=== PATIENT | female | born 1955 | race Caucasian/White ===

== ENCOUNTER → 2020-03-30 12:13 | Outpatient (CLI) | payer MEDICARE, SELFPAY ==
[2015-07-19 15:47] VITALS: BMI 23.3
--- NOTE | 2020-03-30 12:30 | RAD_ITS ---
STUDY: X-RAY CHEST REASON FOR EXAM: Female, 64 years old. SOB TECHNIQUE: Frontal and lateral views of the chest. COMPARISON: 10-16-13 chest x-ray same day FINDINGS: The lungs are hyper aerated. The lungs are clear and expanded. There is no demonstrated pleural abnormality. Normal size heart. Normal mediastinum and nemo. Normal visualized pulmonary arteries. Normal visualized aortic arch and descending thoracic aorta. Moderate kyphosis and scoliosis. Normal visualized ribs, clavicles, and shoulders. There is no demonstrated abnormality of the visualized soft tissue structures of the upper abdomen. RAD/Chest PA and Lateral IMPRESSION: COPD. No acute disease. Electronically Signed: Michael Deleon MD at 21:58 EDT , Service support ,
== END ==
PROVIDERS: PCP Family Medicine; Referring Provider Family Medicine; Visit Provider Family Medicine
DX: J44.9 Chronic obstructive pulmonary disease, unspecified (principal)
CPT/HCPCS: 71046

== ENCOUNTER → 2021-05-07 09:04 | Outpatient (CLI) | payer MEDICARE, SELFPAY ==
--- NOTE | 2021-05-07 09:38 | RAD_ITS ---
INDICATION: NECK PAIN EXAMINATION/TECHNIQUE: X-RAY - XR Spine Cervical 4 or 5 Views COMPARISON: None. FINDINGS: Straightening of the alignment of the columns of the cervical spine is visualized with grade 1 anterolisthesis of C3 over C4 and C4 over C5. Multilevel degenerative endplate changes visualized, no evidence of compression deformity of the cervical vertebral bodies is seen. Degenerative changes visualized most prominent involving the C5 and to lesser extent C6 vertebral bodies. Decreased intervertebral disc height visualized at C5-C6 and C6-C7. Oblique images visualized demonstrate unremarkable left neuroforamina, limited narrowing of the right neural foramina due to suboptimal alignment however there is suggestion of moderate to severe narrowing of the C5-6 and C6-C7 neural foramina on the right The prevertebral posterior neck soft tissues are unremarkable. The visualized upper lung baer unremarkable. RAD/Cerv Spine 4 or 5 Views IMPRESSION: Degenerative changes of the cervical spine visualized most prominent at C5 and C6 vertebral bodies, grade 1 anterolisthesis of C3 over C4 and C4 over C5. Electronically Signed: Thang Epps MD at 12:09 EDT Tel , Service support ,
--- NOTE | 2021-05-07 09:38 | RAD_ITS ---
INDICATION: BACK PAIN EXAMINATION/TECHNIQUE: X-RAY - XR Spine Lumbar Min 4 Views COMPARISON: None. FINDINGS: Dextroscoliosis of the thoracolumbar spine visualized with the apex along the right lateral aspect of the L1-2 intervertebral disc space, rotation of the upper vertebral bodies, rotatory scoliosis. Bone demineralization extensive degenerative changes are visualized that limits evaluation Decreased intervertebral disc height visualized involving the L1 vertebral body and to a lesser extent the T12 and lower thoracic vertebral bodies which are suboptimally evaluated however this is the level of the scoliosis stenosis could represent degenerative changes. Would recommend clinical correlation for localized tenderness at this level and if clinically indicated further evaluation with an MRI. Increased density visualized in the posterior column most prominent at L5 consistent with hypertrophic changes of the right L5 facets. Surgical clips visualized in the right upper quadrant. RAD/L/S Spine Min 4 Views IMPRESSION: Extensive degenerative changes of the lumbar spine visualized with the common clinical correlation for localized tenderness and if clinically indicated further evaluation with an MRI to rule out acute compression fracture of the L1 vertebral body or of the lower thoracic vertebral bodies. Electronically Signed: Thang Epps MD at 12:13 EDT Tel , Service support ,
== END ==
PROVIDERS: PCP Family Medicine; Referring Provider Family Medicine; Visit Provider Family Medicine
DX: M54.2 Cervicalgia (principal); M54.9 Dorsalgia, unspecified
CPT/HCPCS: 72050; 72110

== ENCOUNTER → 2021-05-21 15:25 | Outpatient (CLI) | payer MEDICARE, SELFPAY ==
[2021-05-21 16:22] LABS: Potassium 4.1 mmol/L (3.5-5.1)
== END ==
PROVIDERS: PCP Family Medicine; Visit Provider Family Medicine
DX: E87.6 Hypokalemia (principal)
CPT/HCPCS: 36415; 84132

== ENCOUNTER → 2022-01-10 | Outpatient (CLI) | payer MEDICARE, SELFPAY ==
--- NOTE | 2022-01-10 10:35 | RAD_ITS ---
STUDY: X-RAY CHEST REASON FOR EXAM: Female, 66 years old. BRONCHITIS TECHNIQUE: PA and lateral. COMPARISON: 03/30/2020.. FINDINGS: LUNGS: The lungs are hyperinflated. No consolidation. No pneumothorax. MEDIASTINUM: Unremarkable. CARDIAC SILHOUETTE: Not enlarged. BONES AND SOFT TISSUES: Degenerative changes of the dorsal spine and scoliosis. Surgical clips right upper abdomen previous cholecystectomy. RAD/Chest PA and Lateral IMPRESSION: Hyperinflated lungs likely COPD. No infiltrates. Electronically Signed: Joy Kline MD at 4:06 EDT ,
== END | disposition home or self-care (01) ==
LOC: RAD 10:34
PROVIDERS: PCP Family Medicine; Referring Provider Family Medicine; Visit Provider Family Medicine
DX: J40 Bronchitis, not specified as acute or chronic (principal)
CPT/HCPCS: 71046

== ENCOUNTER 2022-01-31 09:19 | Emergency (ER) | payer MEDICARE, SELFPAY ==
[2022-01-31 09:20] VITALS: BP 116/97; PULSE 100; RESP 18; TEMP 37.4; O2SAT 96; BMI 21.2
--- NOTE | 2022-01-31 09:31 | RAD_ITS ---
STUDY: X-RAY CHEST REASON FOR EXAM: Female, 66 years old. cough, fever TECHNIQUE: Single AP portable view of the chest. COMPARISON: 01/10/2022 FINDINGS: There is hyperinflation of the lungs consistent with chronic obstructive lung disease (COPD). Focal opacity lower right lung worrisome for pneumonia or mass. There is no demonstrated pleural abnormality. Normal size heart. Normal mediastinum and nemo. Normal visualized pulmonary arteries. Normal visualized aortic arch and descending thoracic aorta. Normal visualized thoracic spine. Normal visualized ribs, clavicles, and shoulders. There is no demonstrated abnormality of the visualized soft tissue structures of the upper abdomen. RAD/Chest 1 View (Portable) IMPRESSION: Right middle lobe or right lower lobe pneumonia or mass. Follow-up chest x-ray is recommended after resolution of symptoms to exclude mass, namely bronchogenic carcinoma.. Electronically Signed: Isaac Gonsalves MD at 10:46 EDT ,
--- NOTE | 2022-01-31 09:36 | EDS_ITS ---
HPI History of Present Illness Chief Complaint: Nausea/Vomiting Informant: patient Onset/Context/Timing Onset: Days (2 days) Context: Gradual Onset Current Severity: Mild Maximum Severity: Moderate Narrative Narrative: Patient presents with 2-day history of fever and chills with headache, body aches, nausea, vomiting, diarrhea. She does have a mild cough. T-max has been 103. She believes she may have been exposed to COVID but did not take a test. She did receive the vaccines as well as booster. [facility] Medical History Depression GERD (gastroesophageal reflux disease) Home Medications esomeprazole magnesium [Nexium] 40 mg PO DAILY 08/08/13 [History Last Taken 05/12/14 08:00 40 MG] ferrous sulfate 325 mg PO BIDCM #90 tablet 10/04/13 [Rx Last Taken 05/12/14 08:00 325 MG] Potassium (Otc) [Potassium Otc] 99 mg PO DAILY 05/13/14 [History Last Taken 05/12/14 08:00 1 TAB] trazodone 50 mg PO QHS 05/13/14 [History Last Taken 05/12/14 12:00 50 MG] Venlafaxine Xr [Effexor Xr] 75 mg PO DAILY 05/14/14 [History Last Taken Unknown] docusate sodium [Colace] 100 mg PO BID PRN PRN #60 capsule 05/23/14 [Rx Last Taken Unknown] ondansetron HCl 8 mg PO Q8H PRN PRN #30 tablet 05/23/14 [Rx Last Taken Unknown] oxycodone 10 mg PO Q4H PRN PRN #30 tablet 05/23/14 [Rx Last Taken Unknown] promethazine 25 mg PO Q4H PRN PRN #10 tablet 05/23/14 [Rx Last Taken Unknown] psyllium husk (aspartame) [Metamucil] 1 packet PO DAILY #30 packet 05/23/14 [Rx Last Taken Unknown] levofloxacin 750 mg PO DAILY #4 tab 01/31/22 [Rx Last Taken Unknown] ondansetron 4 mg PO Q8H PRN #10 tab 01/31/22 [Rx Last Taken Unknown] Allergy/AdvReac Type Severity Reaction Status Date / Time Sulfa (Sulfonamide Allergy Hives Verified 01/31/22 09:22 Antibiotics) Social History Smoking Status: Never smoker ROS ROS ED Constitutional Constitutional ED: Reports chills and fever(s) Eyes Eyes: Denies blurry vision or change in vision ENT ENT ED: Denies sore throat Cardiovascular Cardiovascular: Denies chest pain Respiratory/Chest Respiratory/Chest: Reports cough; Denies dyspnea Gastrointestinal Gastrointestinal: Reports diarrhea, nausea and vomiting; Denies abdominal pain Genitourinary Genitourinary ED: Denies dysuria Musculoskeletal Musculoskeletal: Denies back pain Integumentary Denies rash Neurologic Neurologic: Reports headache(s) and weakness Allergic/Immunologic Allergic/Immunologic ED: Denies urticaria EXAM Physical Exam Const Vital Signs: 01/31/22 09:20 01/31/22 09:50 Temperature 99.4 F H 99.4 F H Temperature Source Temporal Temporal Pulse Rate 100 100 Respiratory Rate 18 18 Blood Pressure 116/97 H 116/97 H Blood Pressure Mean 103 103 Pulse Ox 96 96 Oxygen Delivery Method Room Air Room Air Positive well nourished and well developed General Appearance ED: well developed HEENT Reports moist mucous membranes Eyes PERRL and EOMs intact bilaterally Neck supple Chest Wall inspection of chest normal and palpation of chest normal Resp normal respiratory effort and clear to auscultation bilaterally Cardio regular rate and regular rhythm GI non-tender Auscultation: hypoactive bowel sounds Palpation: soft Extremity normal to inspection Neuro oriented x3 Sensorium / Orientation: alert Psych mental status grossly normal Skin no rashes or lesions noted MDM MDM MDM Narrative Medical decision making narrative: Oral temperature at the time of my exam is 98.3. Lab work, chest x-ray, EKG obtained. Swab for COVID and influenza order ed. Lab Data Attestation: I reviewed the patient's lab results. Labs: Laboratory Results - last 24 hr 01/31/22 01/31/22 09:45 09:45 WBC 19.4 H RBC 4.26 Hgb 12.5 Hct 37.5 MCV 88.0 MCH 29.3 MCHC 33.3 RDW Std Deviation 45.4 H RDW Coeff of Tr 14.1 Plt Count 188 MPV 10.4 Immature Gran % (Auto) 1.100 H Neut % (Auto) 88.5 H Lymph % (Auto) 6.6 L [place] % (Auto) 3.5 Eos % (Auto) 0.0 Baso % (Auto) 0.3 Absolute Neuts (auto) 17.2 H Absolute Lymphs (auto) 1.28 Nucleated RBC % 0 Sodium 135 L Potassium 3.2 L Chloride 100 Carbon Dioxide 27.0 Anion Gap 8 BUN 20 H Creatinine 0.91 Estim Creat Clear Calc 49.62 Est GFR (MDRD) Af Amer 79 Est GFR (MDRD) Non-Af 65 BUN/Creatinine Ratio 22.0 H Glucose 153 H Calcium 9.4 Rapid COVID: Negative Influenza: Negative Radiography Chest X-Ray - ED: 1 View, Read by ED Physician and Right Infiltrate Diagnostic Testing: Clinical Impression(s) from Imaging Studies Chest X-Ray 01/31/22 09:31 IMPRESSION: Right middle lobe or right lower lobe pneumonia or mass. Follow-up chest x-ray is recommended after resolution of symptoms to exclude mass, namely bronchogenic carcinoma.. Electronically Signed: Isaac Gonsalves MD at 10:46 EDT , EKG Initial EKG: Attestation: I personally reviewed and interpreted this EKG as follows: Interpretation: Sinus Rhythm (Sinus at 96 with no acute ischemia. QTC is 457.) Treatment and Re-Evaluation Narrative: Repeat evaluation patient resting comfortably. After Zofran her nausea is improved and she is tolerating p.o. fluids. Lab work reviewed with her. White count elevated at 19.4 with left shift. Chemistry studies significant for slightly low potassium at 3.2. Chest x-ray does reveal a dense right lower lobe infiltrate. Patient be treated with a course of Levaquin, first dose given here. Prescription for Levaquin and Zofran sent to the pharmacy. Return instructions provided. Discharge Plan Triage Chief Complaint: Nausea/Vomiting ED Provider: Marycruz Jones Dx/Rx/DC Orders Clinical Impression: Pneumonia Instructions: ED Pneumonia (Adult) Prescriptions: New levofloxacin 750 mg tablet 750 mg PO DAILY Qty: 4 RF: 0 ondansetron 4 mg tablet,disintegrating 4 mg PO Q8H PRN (Reason: nausea and vomiting) Qty: 10 RF: 0 No Action esomeprazole magnesium [Nexium] 20 MG capsule 40 mg PO DAILY RF: 0 ferrous sulfate 325 MG tablet 325 mg PO BIDCM Qty: 90 RF: 0 trazodone 50 MG tablet 50 mg PO QHS RF: 0 Potassium (Otc) [Potassium Otc] 99 MG tablet 99 mg PO DAILY RF: 0 Venlafaxine Xr [Effexor Xr] 75 MG capsule 75 mg PO DAILY RF: 0 ondansetron HCl 8 MG tablet 8 mg PO Q8H PRN PRN (Reason: nausea, emesis) Qty: 30 RF: 0 oxycodone 5 MG tablet 10 mg PO Q4H PRN PRN (Reason: Moderate Pain (pain scale 4-5)) Qty: 30 RF: 0 docusate sodium [DOK] 100 MG capsule 100 mg PO BID PRN PRN (Reason: Constipation) Qty: 60 RF: 0 psyllium husk (aspartame) [Metamucil Fiber Singles] 1 PACKET powder in packet 1 packet PO DAILY Qty: 30 RF: 0 promethazine 25 MG tablet 25 mg PO Q4H PRN PRN (Reason: N/V if zofran not working) Qty: 10 RF: 0 Primary Care Provider: Danish Davila Referrals: Danish Davila DO [Primary Care Provider] - 1 Week Activity Restrictions/Additional Instructions: Please follow-up with your primary care physician in 1 to 2 weeks for repeat imaging to ensure resolution of your pneumonia. Disposition Disposition: Home, Self Care
[2022-01-31 09:50] VITALS: BP 116/97; PULSE 100; RESP 18; TEMP 37.4; O2SAT 96
[2022-01-31 09:54] LABS: Absolute Lymphocyte Count 1.28 X10^3/uL (0.83-4.51); Absolute Neutrophil Count 17.2 X10^3/uL (2.0-7.7); Basophil# 0.05 X10^3/uL; Basophil% 0.3 % (0-1); Hematocrit 37.5 % (37-47); Hemoglobin 12.5 g/dL (12.0-15.0); Lymphocyte # 1.28 X10^3/ul (0.83-4.51); Lymphocyte % 6.6 % (19-41); Mean Corp Hgb Conc 33.3 g/dL (32-36); Mean Corpuscular Hgb 29.3 pg (27.0-32.0); Mean Platelet Vol. 10.4 fl (6.2-12.0); Monocyte# 0.69 X10^3/uL; Monocyte% 3.5 % (0-10); NRBC Flagged by Analyzer 0 % (0-5); Neutrophil # 17.21 X10^3/uL (2.7-7.7); Neutrophil % 88.5 % (47-70); POSITIVE MORPHOLOGY YES; Platelet Count 188 K/mm3 (150-450); RBC Distribution Width CV 14.1 % (11.6-14.6); RBC Distribution Width SD 45.4 fl (35.1-43.9); Red Blood Count 4.26 M/mm3 (4.2-5.4); White Blood Count 19.4 K/mm3 (4.4-11.0)
[2022-01-31] MEDS: Ondansetron 4 MG/2 ML Vial IV (09:55)
[2022-01-31 09:57] LABS: Differential Indicated SCAN CRITERIA MET
--- NOTE | 2022-01-31 10:07 | EKG12_ITS ---
Test Reason : Blood Pressure : / mmHG Vent. Rate : 096 BPM Atrial Rate : 096 BPM P-R Int : 174 ms QRS Dur : 080 ms QT Int : 362 ms P-R-T Axes : 083 046 045 degrees QTc Int : 457 ms Normal sinus rhythm Nonspecific ST abnormality Abnormal ECG Confirmed by MURTAZA CHISHOLM, NIKI ([id number]), food editor OSWALD ROSA ([id number]) on 02/01/2022 1:30:40 PM Referred By: JOEL Confirmed By:NIKI HAUSER MD
[2022-01-31 10:08] LABS: Anion Gap 8 (5-15); BUN 20 mg/dL (7-18); Calcium,Total 9.4 mg/dL (8.5-10.1); Chloride 100 mmol/L (98-107); Creatinine, Serum 0.91 mg/dL (0.55-1.02); EST Glomerular Filtration Rate 65 mL/min (>60); Est Glom Filt Rate - Afr Amer 79 mL/min (>60); Estimated Creatinine Clearance 49.62 ml/min; Glucose 153 mg/dL (74-106); Potassium 3.2 mmol/L (3.5-5.1); Sodium Level 135 mmol/L (136-145)
[2022-01-31] MEDS: levoFLOXacin 750 MG Tablet PO (10:54)
== END 2022-01-31 11:29 | disposition home or self-care (01) ==
PROVIDERS: Emergency Provider Emergency Medicine; PCP Family Medicine; Visit Provider Emergency Medicine
DX: J18.9 Pneumonia, unspecified organism (principal); K21.9 Gastro-esophageal reflux disease without esophagitis; F32.A Depression, unspecified; Z20.822 Contact with and (suspected) exposure to COVID-19; Z79.899 Other long term (current) drug therapy
CPT/HCPCS: 71045; 80048; 85025; 87428; 93005; 96361; 96374; 99283; J7030; J2405

== ENCOUNTER → 2022-04-22 | Outpatient (CLI) | payer MEDICARE, SELFPAY ==
--- NOTE | 2022-04-22 09:46 | RAD_ITS ---
STUDY: X-RAY - RIGHT SHOULDER REASON FOR EXAM: Female, 66 years old. Six-week history of bilateral shoulder pain. TECHNIQUE: 4 view(s) of the shoulder. COMPARISON: None. FINDINGS: Normal glenohumeral articulation. There is degenerative arthrosis of the acromioclavicular joint without inferior osseous spur formation. Normal acromion. Normal humeral head and visualized proximal humerus. The soft tissue structures are unremarkable. Normal visualized pulmonary apex. RAD/Shoulder min 2 Views IMPRESSION: Arthrosis of the right acromioclavicular joint. Electronically Signed: Aravind Serrano MD at 11:04 EDT ,
--- NOTE | 2022-04-22 09:47 | RAD_ITS ---
STUDY: X-RAY - LEFT SHOULDER REASON FOR EXAM: Female, 66 years old. Six-week history of bilateral shoulder pain. TECHNIQUE: 4 view(s) of the shoulder. COMPARISON: None. FINDINGS: Normal glenohumeral articulation. Normal acromioclavicular joint. Normal acromion. Normal humeral head and visualized proximal humerus. The soft tissue structures are unremarkable. Normal visualized pulmonary apex. RAD/Shoulder min 2 Views IMPRESSION: Normal x-ray examination of the shoulder. Electronically Signed: Aravind Serrano MD at 11:04 EDT ,
== END | disposition home or self-care (01) ==
LOC: RAD 09:42
PROVIDERS: PCP Family Medicine; Referring Provider Family Medicine; Visit Provider Family Medicine
DX: M19.011 Primary osteoarthritis, right shoulder (principal); G89.29 Other chronic pain
CPT/HCPCS: 73030

== ENCOUNTER → 2022-10-24 | Outpatient (CLI) | payer MEDICARE, SELFPAY ==
--- NOTE | 2022-10-24 11:45 | RAD_ITS ---
STUDY: X-RAY CHEST REASON FOR EXAM: Female, 67 years old. Cough and shortness of breath TECHNIQUE: PA and lateral views of the chest. COMPARISON: 01/31/2022 FINDINGS: Lungs are mildly hyperexpanded, without a superimposed acute pulmonary process, previously noted right lower lobe infiltrate has cleared. Normal size heart. Normal mediastinum and nemo. Normal visualized pulmonary arteries. Normal visualized aortic arch and descending thoracic aorta. There are diffuse degenerative changes of the visualized thoracic spine. Normal visualized ribs, clavicles, and shoulders. There is no demonstrated abnormality of the visualized soft tissue structures of the upper abdomen. RAD/Chest PA and Lateral IMPRESSION: No acute pulmonary process Electronically Signed: Jian Cuenca MD at 15:01 EST ,
== END | disposition home or self-care (01) ==
LOC: RAD 11:26
PROVIDERS: PCP Family Medicine; Visit Provider Family Medicine
DX: R05.9 Cough, unspecified (principal)
CPT/HCPCS: 71046

== ENCOUNTER 2024-04-29 07:34 | Day surgery (SDC) | payer MEDICARE, SELFPAY ==
[2024-04-29] VITALS (8 sets, daily range): BP systolic 97–142; BP diastolic 43–72; PULSE 76–96; RESP 16–20; TEMP 36.2–36.8; O2SAT 90–99; BMI 20.4
--- NOTE | 2024-04-29 07:56 | PCM.HP.STD ---
[facility] - General General Date of Admission: 04/29/24 Date of Service: 04/29/24 Chief Complaint: Screening colonoscopy HPI Narrative JACQUELINE GÓMEZ, is a 68 F who presents today for screening colonoscopy. She had a colonoscopy back in 2013 that was normal. She not have any abdominal pain. She does not have any cramping, chest pain or shortness of breath. She carries a past medical history of mild depression, hypercholesterolemia, possible COPD, osteoporosis. Overall she is in fairly good health. [facility] Medical History (Updated 04/26/24 @ 14:43 by Patricia Rivas) Wears dentures Wears glasses Post-menopausal Depression Arthritis Anemia Gastric reflux Former smoker Hoarseness History of stress test Osteopenia COPD (chronic obstructive pulmonary disease) Family hx of colon cancer Nausea & vomiting Diarrhea Pathologic pelvic fracture Chronic anemia GERD (gastroesophageal reflux disease) Depression Home Medications ?Medication ?Instructions ?Recorded ?Last Taken ?Type esomeprazole magnesium 20 mg 40 mg PO DAILY 08/08/13 05/12/14 08:00 History capsule,delayed release (Nexium) 40 MG albuterol sulfate 90 mcg/actuation 2 puff inhalation Q4H PRN 03/20/24 Unknown History aerosol inhaler (Proventil HFA) shortness of breath or wheezing alendronate 70 mg tablet 70 mg PO QWEEK 03/20/24 Unknown History simvastatin 80 mg tablet 40 mg PO DAILY 03/20/24 Unknown History trazodone 150 mg tablet,extended 150 mg PO HS PRN sleep 03/20/24 Unknown History release 24 hr venlafaxine 150 mg 150 mg PO DAILY 03/20/24 Unknown History capsule,extended release 24 hr Allergy/AdvReac Type Severity Reaction Status Date / Time Sulfa (Sulfonamide Allergy Hives Verified 04/29/24 07:57 Antibiotics) Family History (Updated 03/20/24 @ 09:09 by Pooja Padilla) Mother Pancreatic cancer Father COPD (chronic obstructive pulmonary disease) Brother Colon cancer Heart disease Sister Stomach cancer Brother Leukemia Surgical History (Updated 03/20/24 @ 09:06 by Pooja Padilla) History of tonsillectomy and adenoidectomy Hx of cholecystectomy Hx of appendectomy Hx of colonoscopy Social History (Updated 03/20/24 @ 09:13 by Pooja Padilla) household members: none current occupational status: employed current occupation: [employer] Smoking Status: Former smoker Tobacco: How many years used: 4 alcohol intake: former substance use type: does not use ROS Review of Systems ROS Unobtainable: other Constitutional Constitutional: Denies fatigue, fever(s), poor appetite, weight gain or weight loss ENT HEENT: Denies mouth lesions Cardiovascular Cardiovascular: Denies abdominal bloating, abdominal edema or abdominal pain Respiratory/Chest Respiratory/Chest: Denies change in mental status, change in phlegm color, chest congestion or chest tightness Gastrointestinal Gastrointestinal: Denies belching, bloating, change in bowel habits, change in stool character, chewing difficulty, coffee ground emesis, constipation, cramping, diarrhea, dyspepsia, dysphagia, early satiety, excessive flatus, fecal incontinence, heartburn, hematemesis, hematochezia, hemorrhoids, loose stools, melena, nausea, odynophagia, rectal bleeding, tenesmus, vomiting or weight changes Genitourinary Genitourinary: Denies abdominal discomfort, burning urination or itching Musculoskeletal Musculoskeletal: Reports as per HPI; Denies muscle weakness or myalgias Integumentary Integumentary: Denies jaundice Neurologic Neurologic: Denies lack of coordination or weakness Psychiatric Psychiatric: Denies confusion, depression, memory loss, mood swings, paranoia or suicidal ideation Endocrine Endocrinology: Denies systems reviewed and no addt'l complaints, except as documented Hematologic/Lymphatic Hematologic/Lymphatic: Denies anemia, easy bleeding, easy bruising or lymphadenopathy Allergic/Immunologic Allergic/Immunologic: Denies systems reviewed and no addt'l complaints, except as documented Assessment & Plan Assessment/Plan (1) Encounter for screening for malignant neoplasm of colon: PLAN: She was explained alternatives, risk, benefits including not withstanding bleeding, infection, sepsis, perforation, need for emergent urgent . She will have an ASA of 3.
[2024-04-29] MEDS: Lactated Ringers 1,000 ML 15 ML IV (07:58)
--- NOTE | 2024-04-29 08:23 | PRE.ANES_ITS ---
ASA Classification* ASA Classification ASA Classification: 2 Assessment & Plan Anesthesia* Anesthesia Assessment Anesthesia Assessment: Discussed sedation and/or anesthesia options, risks, benefits, and alternatives with patient/parents/legal guardian/POA. Questions invited. The patient/parents/legal guardian/POA seems to understand and agrees to proceed with anesthesia plan. Reviewed the physical assessment, medical history, allergy history and patient home medications list prior to surgery/procedure/anesthetic and documented any changes. Performed airway and anesthesia risk assessments. Anesthesia Type Anesthesia Type: MAC History Source History Obtained from:: Patient and Chart Anesthesia Focused Assessment* Temperature: 97.4 F Pulse Rate: 90 Blood Pressure: 114/43 Respiratory Rate: 18 Pulse Ox: 95 Oxygen Delivery Method: Room Air Airway Assessment Mouth opens: >3 cm Mallampati Score: I Teeth Condition: Dentures and Full Neck Range of motion (ROM): Full ROM Pertinent Findings EKG Pertinent Findings:: January 31, 2022. Normal sinus rhythm. Nonspecific ST abnormality. Focused Labs Anesthesia Preop lab: CBC WBC 19.4 K/mm3 (4.4-11.0) H 01/31/22 09:45 RBC 4.26 M/mm3 (4.2-5.4) 01/31/22 09:45 Hgb 12.5 g/dL (12.0-15.0) 01/31/22 09:45 Hct 37.5 % (37-47) 01/31/22 09:45 Plt Count 188 K/mm3 (150-450) 01/31/22 09:45 CHEMISTRY Potassium 3.2 mmol/L (3.5-5.1) L 01/31/22 09:45 Sodium 135 mmol/L (136-145) L 01/31/22 09:45 Magnesium 1.7 mg/dL (1.8-2.4) L 05/23/14 05:58 Phosphorus 1.4 mg/dL (2.5-4.9) L 11/26/12 07:42 BUN 20 mg/dL (7-18) H 01/31/22 09:45 Creatinine 0.91 mg/dL (0.55-1.02) 01/31/22 09:45 Glucose 153 mg/dL (74-106) H 01/31/22 09:45 POC Glucose 245 mg/dL (70-110) H 10/16/13 12:24 TSH 3.43 uIU/mL (0.358-3.74) 10/16/13 19:28 COAG PT 13.7 SECONDS (11.9-14.4) 09/30/13 20:09 Pre-Assessment Diagnosis/Proposed Procedure Planned Operative Procedure(s): Colonoscopy - Open Access Anesthesia History 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 When Was Last Pacemaker Check QUESTION #4 FULL TEXT: You/Your Family Experience fever (hyperthermia) with Anesthesia Last Oral Intake Last Oral intake: Last Oral Intake NPO since 00:00 04/29/24 07:59 Meds taken in AM with sips of No 04/29/24 07:59 water? Meds patient instructed to take am of surgery Any additional information?: Yes NPO since: 02:30 (Patient finished prep at 2:30 AM.) PONV PONV - tool and equipment rental clerk: PONV - tool and equipment rental clerk Female Yes 04/26/24 14:43 HX of Motion Sickness No 04/26/24 14:43 HX of N/V After Surgery No 04/26/24 14:43 Non-Smoker Yes 04/26/24 14:43 Duration of Surgery greater No 04/26/24 14:43 than 60 minutes Number of Risk Factors 2 04/26/24 14:43 PONV Score Moderate Risk 04/26/24 14:43 Height & Weight Height & Weight: Anesthesia: Height & Weight Height 5 ft 4 in 04/29/24 07:59 Weight: 53.977 kg 04/29/24 07:59 Body Mass Index (BMI) 20.4 04/29/24 07:59 Respiratory Assessment Respiratory Assessment - tool and equipment rental clerk: Respiratory Tract Infection Hx - tool and equipment rental clerk Hx Respiratory Tract Infection No 04/26/24 14:43 STOP Sleep Apnea STOP Sleep Apnea - tool and equipment rental clerk: STOP Sleep Apnea - tool and equipment rental clerk Hx Hypertension No 04/26/24 14:43 Hx Sleep Apnea No 04/26/24 14:43 CPAP No 04/26/24 14:43 BIPAP No 04/26/24 14:43 Do you snore loudly (louder No 04/26/24 14:43 than talking or can be heard Do you often feel tired/ No 04/26/24 14:43 fatigued/ sleepy during daytime? Has anyone observed you stop No 04/26/24 14:43 breathing during sleep? STOP Results Negative 04/26/24 14:43 QUESTION #5 FULL TEXT : Do you snore loudly (louder than talking or can be heard through closed doors)? 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 - tool and equipment rental clerk: Tobacco Use History - tool and equipment rental clerk Tobacco Use Non-smoker 05/07/21 09:04 Smoking Status Former smoker 04/26/24 14:43 Hx Tobacco Use Yes 04/26/24 14:43 Years Smoking Packs Smoked per Day Smoking Cessation Date was Yes - quit smoking within 15 04/26/24 14:43 within the last 15 years years Hx Smoking Cessation Date Hx Smoking Cessation No 04/26/24 14:43 Counseling Any additional information?: Yes Smoking Status: Former smoker (Patient quit smoking in January 2024. 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 Specify any problems Hx of Preganancy in last 3 No 04/26/24 14:43 Months Nurse Filling Out Transfusion VCHRISTIN 04/26/24 14:43 & Questions: Date: 04/26/24 04/26/24 14:43 Time: 14:44 04/26/24 14:43 Patient unable to answer at this time (ie. confused, unrespo /Reproduction History /Reproductive History - tool and equipment rental clerk: /Reproductive Hx- tool and equipment rental clerk Hx Now No 04/26/24 14:43 Gestational Age (in weeks): EDC: Hx Hx Para Hx Section SAB No 04/26/24 14:43 Active Medications Active Medications: Current Medications Generic Name Dose Route Start Last Admin Trade Name Freq PRN Reason Stop Dose Admin Lactated Ringer's 1,000 mls @ 15 mls/hr 04/29/24 07:45 04/29/24 07:58 IV 15 mls/hr .Q48H STEVE Administration PFSH Medical History (Updated 04/26/24 @ 14:43 by Patricia Rivas) Wears dentures Wears glasses Post-menopausal Depression Arthritis Anemia Gastric reflux Former smoker Hoarseness History of stress test Osteopenia COPD (chronic obstructive pulmonary disease) Family hx of colon cancer Nausea & vomiting Diarrhea Pathologic pelvic fracture Chronic anemia GERD (gastroesophageal reflux disease) Depression Home Medications ?Medication ?Instructions ?Recorded ?Last Taken ?Type esomeprazole magnesium 20 mg 40 mg PO DAILY 08/08/13 04/28/24 History capsule,delayed release (Nexium) albuterol sulfate 90 mcg/actuation 2 puff inhalation Q4H PRN 03/20/24 Unknown History aerosol inhaler (Proventil HFA) shortness of breath or wheezing alendronate 70 mg tablet 70 mg PO QWEEK 03/20/24 04/21/24 History simvastatin 80 mg tablet 40 mg PO DAILY 03/20/24 04/28/24 History trazodone 150 mg tablet,extended 150 mg PO HS PRN sleep 03/20/24 04/28/24 History release 24 hr venlafaxine 150 mg 150 mg PO DAILY 03/20/24 04/28/24 History capsule,extended release 24 hr Allergy/AdvReac Type Severity Reaction Status Date / Time Sulfa (Sulfonamide Allergy Hives Verified 04/29/24 07:57 Antibiotics) Family History (Updated 03/20/24 @ 09:09 by Pooja Padilla) Mother Pancreatic cancer Father COPD (chronic obstructive pulmonary disease) Brother Colon cancer Heart disease Sister Stomach cancer Brother Leukemia Surgical History (Updated 03/20/24 @ 09:06 by Pooja Padilla) History of tonsillectomy and adenoidectomy Hx of cholecystectomy Hx of appendectomy Hx of colonoscopy Social History (Updated 03/20/24 @ 09:13 by Pooja Padilla) household members: none current occupational status: employed current occupation: [employer] Smoking Status: Former smoker (Patient quit smoking in January 2024. Still has an occasional cough.) Tobacco: How many years used: 4 alcohol intake: former substance use type: does not use Review of Systems (Anesthesia) ROS Narrative System reviewed and no additional complaints, except as documented.
--- NOTE | 2024-04-29 09:35 | OP.CCLET_ITS ---
04/29/2024 Danish Davila Re : Colonoscopy procedure for Ashley Dumont Dear Giovanni This procedure was performed on Monday, April 29, 2024. My impressions and recommendations are as follows: Impressions : - Diverticulosis in the recto-sigmoid colon, in the sigmoid colon, in the descending colon and at the splenic flexure. - No specimens collected. Recommendations : - Discharge patient to home. - Resume previous diet. - Continue present medications. - Repeat colonoscopy in 10 years for screening purposes. My findings are described in the full procedure note, which is enclosed. If I can be of further assistance, please feel free to contact me at . Sincerely, Slim Weiss DO 04/29/2024 9:34:45 AM This report has been signed electronically.
--- NOTE | 2024-04-29 09:35 | OP.COLON_ITS ---
Patient Name: Ashley Dumont Procedure Date: 04/29/2024 8:54 AM Date of : 1955 Age: 68 Procedure: Colonoscopy Indications: Screening for colorectal malignant neoplasm Providers: Slim Weiss DO Medicines: Monitored Anesthesia Care Patient Profile: This is a 68 year old female. Refer to note in patient chart for documentation of history and physical. Last Colonoscopy: 10 years ago. Complications: No immediate complications. Procedure: Pre-Anesthesia Assessment: - Prior to the procedure, a History and Physical was performed, and patient medications and allergies were reviewed. The patient is competent. The risks and benefits of the procedure and the sedation options and risks were discussed with the patient. All questions were answered and informed consent was obtained. Patient identification and proposed procedure were verified by the physician in the pre-procedure area. Mental Status Examination: alert and oriented. Airway Examination: normal oropharyngeal airway and neck mobility. Respiratory Examination: clear to auscultation. CV Examination: normal. Prophylactic Antibiotics: The patient does not require prophylactic antibiotics. Prior Anticoagulants: The patient has taken no anticoagulant or antiplatelet agents. ASA Grade Assessment: II - A patient with mild systemic disease. After reviewing the risks and benefits, the patient was deemed in satisfactory condition to undergo the procedure. The anesthesia plan was to use monitored anesthesia care (MAC). Immediately prior to administration of medications, the patient was re-assessed for adequacy to receive sedatives. The heart rate, respiratory rate, oxygen saturations, blood pressure, adequacy of pulmonary ventilation, and response to care were monitored throughout the procedure. The physical status of the patient was re-assessed after the procedure. After I obtained informed consent, the scope was passed under direct vision. Throughout the procedure, the patient's blood pressure, pulse, and oxygen saturations were monitored continuously. The Colonoscope was introduced through the anus and advanced to the cecum, identified by appendiceal orifice and ileocecal valve. The colonoscopy was performed without difficulty. The patient tolerated the procedure well. The quality of the bowel preparation was adequate. Scope In: 9:12:43 AM Scope Withdrawal Time 0 hours 9 minutes 39 seconds Scope Out: 9:30:34 AM Total Procedure Duration Time 0 hours 17 minutes 51 seconds Findings: The perianal and digital rectal examinations were normal. Multiple small and large-mouthed diverticula were found in the recto-sigmoid colon, sigmoid colon, descending colon and splenic flexure. No other significant abnormalities were identified in a careful examination of the remainder of the colon. Impression: - Diverticulosis in the recto-sigmoid colon, in the sigmoid colon, in the descending colon and at the splenic flexure. - No specimens collected. Recommendation: - Discharge patient to home. - Resume previous diet. - Continue present medications. - Repeat colonoscopy in 10 years for screening purposes. Procedure Code(s): --- Professional --- G0121, Colorectal cancer screening; colonoscopy on individual not meeting criteria for high risk CPT copyright 2021 [employer]. All rights reserved. The codes documented in this report are preliminary and upon collar band creaser review may be revised to meet current compliance requirements. Slim Weiss DO 04/29/2024 9:34:45 AM This report has been signed electronically. Number of Addenda: 0 Note Initiated On: 04/29/2024 8:54 AM
--- NOTE | 2024-04-29 13:41 | PCM.POSTANE2 ---
Anesthesia Postop Eval I Sum Anesthesia Postop Eval I Summary Anesthesia Postop Eval I Summary: Anesthesia Postop Eval I: Assessment Summary Airway patent Spontaneous unlabored respirations Mental status nausea Vomiting Anesthesia Postop Eval I: Fluid Summary Crystalloid volume administer (ml) Colloids volume administered ( ml) Blood Product volume administered (ml) Total IV fluid infused Anesthesia Postop Eval I: Summary Notes Anesthesia Complication Anesthesia Complication Comment: Post-operative progress note Anesthesia: Postop Eval II Evaluation Mental status: Awake and Calm Pain Level: 0 nausea: No Vomiting: No Complications Anesthesia Complication: No
--- NOTE | 2024-04-29 14:03 | PCM.POST.ANE ---
Anesthesia: Postop Eval I Current Vital Signs Temperature: 97.2 F Pulse Rate: 96 Blood Pressure: 142/72 Respiratory Rate: 20 Pulse Ox: 99 Oxygen Delivery Method: Room Air Assessment Airway patent: Yes Spontaneous unlabored respirations: Yes Mental status: Awake and Calm nausea: No Vomiting: No Anesthesia Complication: No Fluid Hydration Crystalloid volume administer (ml): 1,000 Total IV fluid infused: 1,000 Progress Note Anesthesia document: Postop Eval 1 completed: Yes
== END 2024-04-29 10:25 | disposition home or self-care (01) ==
LOC: EN 07:37 → AC 07:38
PROVIDERS: PCP Family Medicine; Referring Provider Family Medicine; Visit Provider Internal Medicine Gastroenterology
PROC: 0DJD8ZZ Inspection of Lower Intestinal Tract, Via Natural or Artificial Opening Endoscopic (ICD-10-PCS; CPT 45378; principal; 2024-04-29 09:10)
DX: Z12.11 Encounter for screening for malignant neoplasm of colon (principal); K57.30 Diverticulosis of large intestine without perforation or abscess without bleeding; K21.9 Gastro-esophageal reflux disease without esophagitis; E78.00 Pure hypercholesterolemia, unspecified; Z79.899 Other long term (current) drug therapy; Z87.891 Personal history of nicotine dependence; Z80.0 Family history of malignant neoplasm of digestive organs
CPT/HCPCS: G0105; J7120; J2405

== ENCOUNTER 2025-02-15 08:29 | Inpatient (IN) | payer MEDICARE, SELFPAY ==
[2025-02-15] VITALS (11 sets, daily range): BP systolic 132–152; BP diastolic 53–74; PULSE 75–87; RESP 16–24; TEMP 36.5–36.9; O2SAT 85–94; BMI 19.5; BMI 19.7
--- NOTE | 2025-02-15 08:59 | EDS_ITS ---
HPI History of Present Illness Chief Complaint: Shortness of Breath Narrative Narrative: 69-year-old female past medical history of COPD, does not wear oxygen, presents via EMS with increased shortness of breath for the last 4 to 5 days. She states it is hard for her to breathe. Her primary care provider called her in a prescription for prednisone a few days ago which she started. This morning she awoke feeling feverish with reported temperature as high as 101 degrees. She went to work today and she states her boss called EMS because of her difficulty breathing. She has a rare cough that is nonproductive. No leg swelling. She uses her albuterol in the morning and sometimes during the day. Additionally, sometimes she smokes as well. [facility] Medical History Wears dentures Wears glasses Post-menopausal Depression Arthritis Anemia Gastric reflux Former smoker Hoarseness History of stress test Osteopenia COPD (chronic obstructive pulmonary disease) Family hx of colon cancer Nausea & vomiting Diarrhea Pathologic pelvic fracture Chronic anemia GERD (gastroesophageal reflux disease) Depression Home Medications ?Medication ?Instructions ?Recorded ?Last Taken ?Type esomeprazole magnesium 20 mg 40 mg PO DAILY 08/08/13 0 02/15/25 History capsule,delayed release (Nexium) simvastatin 80 mg tablet 40 mg PO QHS 03/20/24 History venlafaxine 150 mg 150 mg PO DAILY 03/20/24 History capsule,extended release 24 hr albuterol sulfate 90 mcg/actuation 2 inh inhalation Q4 H PRN shortness 02/15/25 Unknown History breath activated powder inhaler of breath or wheezing trazodone 150 mg tablet 150 mg PO QHS 02/15/25 Unkno wn History Allergy/AdvReac Type Severity Reaction Status Date / Time Sulfa (Sulfonamide Allergy Hives Verified 02/15/25 08:34 Antibiotics) Family History Mother Pancreatic cancer Father COPD (chronic obstructive pulmonary disease) Brother Colon cancer Heart disease Sister Stomach cancer Brother Leukemia Surgical History History of tonsillectomy and adenoidectomy Hx of cholecystectomy Hx of appendectomy Hx of colonoscopy Social History household members: none current occupational status: employed current occupation: [employer] Smoking Status: Current every day smoker tobacco type: cigarettes Tobacco: How many years used: 4 alcohol intake: former substance use type: does not use ROS ROS ED ROS Narrative Review of systems positive for reported fever. Shortness of breath for the last 4 to 5 days. Increased difficulty breathing. Occasional cough. No leg swelling. No chest pain, no nausea or vomiting. EXAM Physical Exam Narrative Exam Narrative: Afebrile. Vital signs noted. Nontoxic-appearing. Cardiovascular examination reveals a regular rate and rhythm. Respiratory examination shows no distress. She has decreased breath sounds at the bilateral bases with occasional expiratory wheezing. Abdomen is soft and nontender with out guarding or rebound. Positive bowel sounds. Neurological examination nonfocal non lateralizing. No pedal edema. Const Vital Signs: 02/15/25 08:30 02/15/25 08:36 02/15/25 09:12 Temperature 98.4 F Temperature Source Oral Pulse Rate 80 Respiratory Rate 24 H Respiratory Pattern Tachypnea Blood Pressure 143/74 H Blood Pressure Mean 97 Pulse Ox 91 90 Oxygen Delivery Method Room Air Room Air Room Air Oxygen Flow Rate (L/min) 02/15/25 09:12 02/15/25 09:36 02/15/25 09:36 Temperature Temperature Source Pulse Rate 75 80 Respiratory Rate 16 18 Respiratory Pattern Blood Pressure Blood Pressure Mean Pulse Ox 85 Oxygen Delivery Method Room Air Oxygen Flow Rate (L/min) 02/15/25 10:30 02/15/25 10:47 Temperature 98 F Temperature Source Pulse Rate 86 87 Respiratory Rate 19 H 19 H Respiratory Pattern Blood Pressure 132/69 H 132/68 H Blood Pressure Mean 90 89 Pulse Ox 91 91 Oxygen Delivery Method Nasal Cannula Oxygen Flow Rate (L/min) 2 MDM MDM MDM Narrative Medical decision making narrative: Differential diagnosis includes but not limited to COPD exacerbation versus pneumonia versus pneumothorax. History and physical does not support pneumothorax and she has equal breath sounds. Pulse ox 91% on room air but does dip to 89 even at rest. Comprehensive workup was pursued. EKG was obtained and interpreted by myself independently as normal sinus rhythm at 84 bpm without ectopy or acute ST changes. No STEMI. Chest x-ray interpreted by myself independently shows no Incivo pneumonia or pneumothorax. I reviewed the radiology report which confirms my independent interpretation. According to respiratory therapy, she was still wheezy after DuoNeb aerosolized treatment so she was given albuterol as well as Solu-Medrol 125 mg intravenously. She was hypoxic on room air and 85%. Once again she does not wear oxygen at home. I reviewed her laboratory work and she has normal white count of 9.4 with hemoglobin 13.6, hematocrit 41.5, platelet count 263. Potassium slightly low at 3.2 which can be replaced orally. BUN of 17 and creatinine 0.75 with glucose 136 but normal anion gap of 13. At this point in time, I will discuss patient with the hospitalist for admission given her hypoxia as I feel this is a COPD exacerbation as she continues to intermittently smoke. Disposition is admit in stable condition. History & Record Review Discussion w/independent historian: Patient Additional record(s) reviewed:: Prior ED visit (Essentially noncontributory to current chief complaint) Lab Data Attestation: I reviewed the patient's lab results. Labs: Laboratory Results - last 24 hr 02/15/25 09:19 WBC 9.4 RBC 4.55 Hgb 13.6 Hct 41.5 MCV 91.2 MCH 29.9 MCHC 32.8 RDW Std Deviation 44.6 H RDW Coeff of Tr 13.2 Plt Count 263 MPV 9.7 Immature Gran % (Auto) 0.200 Neut % (Auto) 77.0 H Lymph % (Auto) 19.2 [place] % (Auto) 1.9 Eos % (Auto) 0.7 Baso % (Auto) 1.0 Absolute Neuts (auto) 7.2 Absolute Lymphs (auto) 1.81 Nucleated RBC % 0 Sodium 140 Potassium 3.2 L Chloride 101 Carbon Dioxide 26.3 Anion Gap 13 BUN 17 Creatinine 0.75 Estim Creat Clear Calc 53.51 Est GFR (MDRD) Non-Af 86 BUN/Creatinine Ratio 22.4 H Glucose 136 H Calcium 9.8 Radiography Diagnostic Testing: Clinical Impression(s) from Imaging Studies Chest X-Ray 02/15/25 09:25 IMPRESSION: No acute process Reading [facility] Management Discussion w/another healthcare provider: Hospitalist (Dr. Avilez) Discharge Plan Triage Chief Complaint: Shortness of Breath ED Provider: Wilfred Bryan Dx/Rx/DC Orders Clinical Impression: COPD exacerbation, Hypoxia, Smoker, Hypokalemia Prescriptions: No Action simvastatin 80 mg tablet 40 mg PO QHS Patient Comments: PT TAKING 40 MG, BREAKS PILL IN HALF venlafaxine 150 mg capsule,extended release 24hr 150 mg PO DAILY esomeprazole magnesium [Nexium] 20 MG capsule 40 mg PO DAILY Patient Comments: acid reflux trazodone 150 mg tablet 150 mg PO QHS Patient Comments: PT IS OUT, BUT SHE DOES TAKE. albuterol sulfate 90 mcg/actuation aerosol powdr breath activated 2 inh inhalation Q4H PRN (Reason: shortness of breath or wheezing) Primary Care Provider: Danish Davila Referrals: Danish Davila DO [Primary Care Provider] - Print Language: Persian
--- NOTE | 2025-02-15 08:59 | EKG12_ITS ---
Test Reason : SOB Blood Pressure : */* mmHG Vent. Rate : 84 BPM Atrial Rate : 84 BPM P-R Int : 154 ms QRS Dur : 72 ms QT Int : 384 ms P-R-T Axes : 88 64 29 degrees QTcB Int : 453 ms Normal sinus rhythm Normal ECG Confirmed by MURTAZA CHISHOLM, NIKI ([id number]), editor & co founder TIFFANI BENZ ([id number]) on 02/18/2025 8:22:27 AM Referred By: JOMAR Confirmed By: NIKI HAUSER MD
[2025-02-15] MEDS: Ipratropium/Albuterol Sulfate 3 ML AMPUL.NEB INHALATION ×2 (09:10→20:37)
--- OUTSIDE RECORDS SUMMARY | 2025-02-15 09:18 | XMS RPT_ITS | CCD ---
Author Organization [facility] Inform ion Partnership [facility] [employer] [employer] Care Team Providers Care [employer] Name Role Phone Danish Davila DO Primary Care Provider Gasper Nelson DO Primary Care Provider Gasper Nelson DO Primary Care Provider Gasper Nelson DO Primary Care Provider Danish Davila Primary Care Unavailable Pooja Padilla Attending Unavailable Danish Davila Referring Unavailable Danish Davila Primary Care Unavailable FriendSlim Attending Unavailable FriendSlim Consulting Unavailable Danish Davila Primary Care Unavailable FriendSlim Attending Unavailable Danish Davila Referring Unavailable Danish Davila DO Primary Care Provider GASPER NELSON Attending Unavailable [place], GASPER Primary Care Unavailable SIOMARA ESTRADA Attending Unavailable GASPER NELSON Primary Care Unavailable GASPER NELSON Attending Unavailable GASPER NELSON Referring Unavailable GASPER NELSON Primary Care Unavailable GASPER NELSON Attending Unavailable GASPER NELSON Primary Care Unavailable Allergies Allergy Classification Reported Allergen(s) Allergy Type Date of Onset Reaction(s) Facility Sulfonamides (antibiotic) (1 source) Sulfonamides (Antibiotic) Drug Allergy 3 [facility] (20 sources) Sulfonamides (Antibiotic) Propensity to adverse reactions to drug 3 [facility] (5 sources) Sulfonamides (Antibiotic); Translations: [Sulfa (Sulfonamide Antibiotics)] Allergy to substance 5 [facility] Medications Current Medications Medication Drug Class(es) Dates Sig (Normalized) Sig (Original) [id number] 200 actuat albuterol 0.09 mg/actuat metered dose inhaler (20 sources) beta2-Adrenergic Agonist Start: 11-14-2022 End: 02-10-2026 take 2 puff(s) by inhalation every four hours as needed for wheezing albuterol (Proventil HFA) 108 (90 Base) MCG/ACT inhaler Indications: Chronic obstructive pulmonary disease with acute exacerbation (HCC) Inhale 2 puffs every 4 hours as needed for wheezing or shortness of breath. 6.7 g 3 02/10/2025 02/10/2026 Active alendronic acid 70 mg oral tablet (20 sources) Bisphosphonate Start: 07-25-2022 End: 09-16-2024 alendronate (Fosamax) 70 MG tablet TAKE 1 TABLET WEEKLY DIRECTED. SEE PACKAGE FOR ADDITIONAL INSTRUCTIONS 12 tablet 3 09/16/2024 Active azithromycin 250 mg oral tablet (17 sources) Macrolide Antimicrobial Start: 02-10-2025 End: 02-15-2025 azithromycin (Zithromax) 250 MG tablet Take 2 tabs (500 mg) by mouth today, than 1 daily for 4 days. 6 tablet 02/10/2025 02/15/2025 Active Start: 11-12-2024 End: 11-17-2024 azithromycin (Zithromax) 250 MG tablet Indications: Chronic obstructive pulmonary disease with acute exacerbation (HCC) Take 2 tabs (500 mg) by mouth today, than 1 daily for 4 days. 6 tablet 11/12/2024 11/17/2024 Active Start: 10-04-2022 End: 10-09-2022 azithromycin (Zithromax) 250 MG tablet Take 2 tabs (500 mg) by mouth today, than 1 daily for 4 days. 6 tablet 0 10/04/2022 10/09/2022 Start: 09-27-2013 End: 10-04-2013 take 1 tablet by mouth once daily Azithromycin (Zithromax Z-Manuel) 250 MG tablet Discontinued 250 MG PO DAILY September 27, 2013 12:00am October 04, 2013 1:11pm benzonatate 100 mg oral capsule (2 sources) Non-narcotic Antitussive Start: 11-14-2022 End: 11-24-2022 take 1 capsule by mouth three times daily as needed for cough benzonatate (Tessalon) 100 MG capsule Indications: COPD with acute exacerbation (CMS/HCC) (HCC) , Lower resp. tract infection Take 1 capsule (100 mg) by mouth 3 times daily as needed for cough for up to 10 days. Do not crush or chew. 30 capsule 0 11/14/2022 11/24/2022 Active cefuroxime 250 mg oral tablet (5 sources) Cephalosporin Antibacterial Start: 12-21-2023 End: 12-31-2023 take 1 tablet by mouth twice daily cefuroxime (Ceftin) 250 MG tablet Take 1 tablet (250 mg) by mouth 2 times daily for 10 days. 20 tablet 0 12/21/2023 12/31/2023 Active dextromethorphan hydrobromide 2 mg/ml / guaiFENesin 20 mg/ml oral suspension (14 sources) Uncompetitive A-wlepoa-U-aspartat e Receptor Antagonist, Sigma-1 Agonist Start: 10-31-2024 dextromethorphan- guaiFENesin (Robitussin-DM) 10-100 MG/5ML liquid 2 tsp QID prn cough 240 mL 10/31/2024 Active docusate sodium 100 mg oral capsule (4 sources) Start: 05-23-2014 take 1 capsule by mouth twice daily as needed Docusate Sodium (Colace) 100 MG capsule Active 100 MG PO TWICE DAILY NEEDED 60 May 22, 2014 11:00pm doxycycline hyclate 100 mg oral capsule (2 sources) Tetracycline-class Drug Start: 11-14-2022 End: 11-24-2022 doxycycline (Vibramycin) 100 MG capsule Indications: COPD with acute exacerbation (CMS/HCC) (HCC) , Lower resp. tract infection Take 1 capsule (100 mg) by mouth 2 times daily for 10 days. Take with at least 8 ounces (large glass) of water, do not lie down for 30 minutes after 20 capsule 0 11/14/2022 11/24/2022 Active esomeprazole 40 mg delayed release oral capsule (20 sources) Proton Pump Inhibitor Start: 07-25-2022 End: 09-30-2024 esomeprazole (NexIUM) [address] capsule TAKE 1 CAPSULE EVERY MORNING BEFORE BREAKFAST 90 capsule 1 09/30/2024 Active Start: 01-04-2022 take 1 capsule by mo uth once daily before breakfast esomeprazole (NEXIUM) 40 MG delayed release capsule Take 1 capsule by mouth every morning (before breakfast) 90 capsule 0 01/04/2022 Active Start: 08-08-2013 take 2 capsules by m outh once daily Esomeprazole Magnesium (Nexium) 20 MG capsule Active 40 MG PO DAILY August 08, 2013 12:00am ferrous sulfate 325 mg oral tablet (4 sources) Start: 10-04-2013 take 325 mg by mouth twice daily at mealtime Ferrous Sulfate Active 325 MG PO TWICE DAILY WITH MEALS October 04, 2013 12:00am levoFLOXacin 500 mg oral tablet (6 sources) Quinolone Antimicrobial Start: 01-01-2024 End: 01-09-2024 take 1 tablet by mouth once daily levoFLOXacin (Levaquin) 500 MG tablet Take 1 tablet (500 mg) by mouth daily for 7 days. 7 tablet 0 01/02/2024 01/09/2024 Active Start: 01-31-2022 take 750 mg by mouth once daily Levofloxacin Active 750 MG PO DAILY January 30, 2022 11:00pm methylPREDNISolone 4 mg oral tablet (4 sources) Corticosteroid Start: 11-12-2024 End: 11-19-2024 methylPREDNISolone (Medrol Dospak) 4 MG tablets Indications: Chronic obstructive pulmonary disease with acute exacerbation (HCC) Take as directed on package. 21 tablet 11/12/2024 11/19/2024 Active Start: 11-14-2022 End: 11-21-2022 methylPREDNISolone (Medrol D ospak) 4 MG tablets Indications: COPD with acute exacerbation (CMS/HCC) (HCC) Take as directed on package. 21 tablet 0 11/14/2022 11/21/2022 Active ondansetron 4 mg disintegrating oral tablet (15 sources) Serotonin-3 Receptor Antagonist Start: 01-31-2022 take 4 mg by mouth every eight hours Ondansetron Active 4 MG PO Q8H January 30, 2022 11:00pm Start: 05-14-2014 End: 05-23-2014 take 8 mg by mouth every eight hours as needed Ondansetron Hcl Active 8 MG PO EVERY 8 HOURS NEEDED May 23, 2014 7:15am Start: 09-27-2013 End: 10-04-2013 take 4 mg by mouth every eight hours as needed Ondansetron Discontinued 4 MG PO EVERY 8 HOURS NEEDED September 27, 2013 12:00am October 04, 2013 1:11pm oxyCODONE hydrochloride 5 mg oral tablet (8 sources) Opioid Agonist Start: 05-14-2014 End: 05-23-2014 take 10 mg by mouth every four hours as needed Oxycodone Active 10 MG PO EVERY 4 HOURS NEEDED May 23, 2014 7:15am potassium gluconate 2.5 meq oral tablet (4 sources) Start: 05-13-2014 take 1 tablet by mouth once daily Potassium (Otc) (Potassium Otc) 99 MG tablet Active 99 MG PO DAILY May 12, 2014 11:00pm predniSONE 20 mg oral tablet (20 sources) Start: 02-10-2025 predniSONE (Deltasone) 20 MG tablet One BID for 5 days 10 tablet 02/10/2025 Active Start: 10-31-2024 End: 11-12-2024 take 1 tablet by mouth twice daily predniSONE (Deltasone) 20 MG tablet Take 1 tablet (20 mg) by mouth 2 times daily for 10 doses. 10 tablet 10/31/2024 11/12/2024 Discontinued (Side effects) Start: 12-21-2023 End: 02-22-2024 predniSONE (Deltasone) 10 MG tablet Two twice daily for 3 days, then 1 twice daily for 3 days, then 1 daily till gone 21 tablet 01/02/2024 02/22/2024 Discontinued (Therapy completed) Start: 01-04-2022 predniSONE (DE LTASONE) 10 MG tablet one q.i.d. for 2 days then one t.i.d. for 2 days then one b.i.d. for 2 days and one daily for 2 days. 20 tablet 0 01/04/2022 Active Start: 09-27-2013 End: 10-04-2013 take 40 mg by mouth once daily Prednisone Discontinued 40 MG PO DAILY@0800 September 27, 2013 12:00am October 04, 2013 1:11pm promethazine hydrochloride 25 mg oral tablet (4 sources) Phenothiazine Start: 05-23-2014 take 25 mg by mouth every four hours as needed Promethazine Active 25 MG PO EVERY 4 HOURS NEEDED May 22, 2014 11:00pm psyllium 3400 mg powder for oral suspension (4 sources) Start: 05-23-2014 Psyllium Husk (Aspartame) (Metamucil) 1 PACKET powder in packet Active 1 PACKET PO DAILY May 22, 2014 11:00pm simvastatin 40 mg oral tablet (20 sources) HMG-CoA Reductase Inhibitor Start: 12-13-2024 take 1 tablet by mouth once daily simvastatin (Zocor) 40 MG tablet Take one tablet by mouth nightly. 90 tablet 1 12/13/2024 Active Start: 12-24-2023 End: 12-13-2024 simvastatin (Zocor) 80 MG ta blet TAKE 1 TABLET EVERY NIGHT 90 tablet 1 07/24/2024 12/13/2024 Discontinued Start: 01-15-2023 End: 01-27-2024 take 1 tablet by mouth once daily simvastatin (Zocor) 40 MG tablet Take 1 tablet (40 mg) by mouth Nightly for 180 doses. 90 tablet 1 07/31/2023 12/24/2023 Discontinued Start: 07-25-2022 End: 01-15-2023 take 1 tablet by mouth once daily simvastatin (Zocor) 10 MG tablet Take 1 tablet (10 mg) by mouth Nightly. 90 tablet 0 10/03/2022 Active Start: 01-04-2022 take 1 tablet by lan th once daily simvastatin (ZOCOR) 10 MG tablet Take 1 tablet by mouth nightly 90 tablet 0 01/04/2022 Active 24 hr venlafaxine 150 mg extended release oral capsule (20 sources) Serotonin and Norepinephrine Reuptake Inhibitor Start: 09-30-2024 venlafaxine XR (Effexor XR) 150 MG 24 hr capsule TAKE 1 CAPSULE EVERY MORNING 90 capsule 1 09/30/2024 Active Start: 07-25-2022 End: 09-30-2024 take 1 capsule by mouth every twenty-four hours in the morning venlafaxine XR (Effexor XR) 150 MG 24 hr capsule TAKE 1 CAPSULE BY MOUTH IN THE MORNING. 90 capsule 1 02/22/2024 09/30/2024 Discontinued Start: 01-04-2022 End: 04-04-2022 take 1 capsule by mouth once daily venlafaxine (EFFEXOR XR) 150 MG extended release capsule Take 1 capsule by mouth daily 90 capsule 0 01/04/2022 04/04/2022 Active Start: 05-14-2014 take 1 capsule by [facility] once daily Venlafaxine Xr (Effexor Xr) 75 MG capsule Active 75 MG PO DAILY May 13, 2014 11:00pm Start: 08-08-2013 End: 05-14-2014 take 75 mg by mouth once daily Venlafaxine Discontinue d 75 MG PO DAILY August 08, 2013 12:00am May 14, 2014 9:29am Completed/Discontinued Medications Medication Drug Class(es) Dates Sig (Normalized) Sig (Original) amoxicillin 500 mg oral capsule (3 sources) Penicillin-class Antibacterial Start: 10-31-2024 End: 11-12-2024 take 1 capsule by mouth three times daily amoxicillin (Amoxil) 500 MG capsule Take 1 capsule (500 mg) by mouth 3 times daily for 10 days. 30 capsule 10/31/2024 11/12/2024 Discontinued (Therapy completed) cyclobenzaprine hydrochloride 10 mg oral tablet (4 sources) Muscle Relaxant Start: 08-08-2013 End: 09-27-2013 take 10 mg by mouth three times daily Cyclobenzaprine Discontinued 10 MG PO THREE TIMES A DAY August 08, 2013 12:00am September 27, 2013 10:20pm Do not take when driving or working. Use before sleep. 60 actuat fluticasone propionate 0.25 mg/actuat / salmeterol 0.05 mg/actuat dry powder inhaler (19 sources) Corticosteroid, beta2-Adrenergic Agonist Start: 07-31-2023 End: 02-22-2024 Fluticasone-Salmeter ol (Wixela Inhub) 250-50 MCG/ACT aerosol powder Inhale 1 Inhalation in the morning and 1 Inhalation in the evening. 3 each 3 02/22/2024 02/22/2024 Discontinued (Entered in error) metoclopramide 10 mg oral tablet (4 sources) Dopamine-2 Receptor Antagonist Start: 10-07-2013 End: 10-19-2013 take 1 tablet by mouth four times daily at bedtime Metoclopramide Hcl Discontinued 10 MG PO 4 TIMES DAILY 120 October 07, 2013 12:00am October 19, 2013 10:58am take one tablet before meals and at bedtime if needed to prevent nausea and vomiting metoprolol tartrate 25 mg oral tablet (4 sources) beta-Adrenergic Luigi Start: 10-04-2013 End: 10-19-2013 take 12.5 mg by mouth twice daily Metoprolol Tartrate Discontinued 12.5 MG PO TWICE A DAY October 04, 2013 12:00am October 19, 2013 10:57am naproxen 500 mg oral tablet (4 sources) Nonsteroidal Anti-inflammatory Drug Start: 08-08-2013 End: 09-27-2013 take 500 mg by mouth twice daily as needed Naproxen Discontinued 500 MG PO TWICE DAILY NEEDED August 08, 2013 12:00am September 27, 2013 10:20pm potassium chloride 20 meq extended release oral tablet (4 sources) Start: 09-27-2013 End: 10-04-2013 Potassium Chloride (K-Dur) 20 MEQ tablet Discontinued 20 MEQ PO DAILY September 27, 2013 12:00am October 04, 2013 1:11pm traZODone hydrochloride 150 mg oral tablet (20 sources) Serotonin Reuptake Inhibitor Start: 02-22-2024 End: 02-10-2026 take 1 tablet by mouth once daily as needed for sleep traZODone (Desyrel) 150 MG tablet Indications: Other insomnia Take 1 tablet (150 mg) by mouth Nightly as needed for sleep. 90 tablet 1 12/02/2024 02/10/2025 Discontinued (Reorder) Start: 2022 End: 02-22-2024 take 1 tablet by mouth once daily traZODone (Desyrel) 100 MG tablet Take 1 tablet (100 mg) by mouth Nightly. 90 tablet 0 10/03/2022 Active Start: 01-04-2022 take 1 tablet by lan once daily traZODone (DESYREL) 100 MG tablet Take 1 tablet by mouth nightly 90 tablet 0 01/04/2022 Active Start: 05-13-2014 take 50 mg by mouth at bedtime Trazodone Active 50 MG PO AT BEDTIME May 12, 2014 11:00pm Problems Active Problems Problem Classification Problem Date Documented Da te Episodic/Chronic Anxiety disorders (2 sources) Anxiety; Translations: [Anxiety disorder, unspecified] Chronic Chronic obstructive pulmonary disease and bronchiectasis (20 sources) Chronic obstructive lung disease; Translations: [Chronic obstructive pulmonary disease, unspecified] Onset: 09-06-2021 Chronic Deficiency and other anemia (4 sources) Chronic anemia; Translations: [Anemia, unspecified] 07-19-2015 Episodic Disorders of lipid metabolism (20 sources) Hypercholesterolemia; Translations: [Pure hypercholesterolemia, unspecified] Onset: Chronic E Codes: Fall (4 sources) Fall; Translations: [Unspecified fall, initial encounter] 10-23-2013 Episodic Esophageal disorders (20 sources) Gastroesophageal reflux disease; Translations: [Gastro-esophageal reflux disease without esophagitis] Onset: 0 01-31-2022 Chronic Fluid and electrolyte disorders (4 sources) Hypokalemia; Translations: [Hypokalemia] 10-23-2013 Episodic Influenza (1 source) Influenza; Translations: [Influenza due to unidentified influenza virus with other respiratory manifestations] 10-31-2024 Episodic Mood disorders (11 sources) Depressive disorder; Translations: [Depression] 01-31-2022 Chronic Mood disorders (2 sources) Mood disorders; Translations: [Depression, unspecified] Onset: 4 Nausea and vomiting (4 sources) Nausea and vomiting; Translations: [Nausea with vomiting, unspecified] 07-19-2015 Episodic Other connective tissue disease (4 sources) Pain in lower limb; Translations: [Pain in leg, unspecified] 09-28-2013 Episodic Other gastrointestinal disorders (4 sources) Diarrhea; Translations: [Diarrhea, unspecified] 07-19-2015 Episodic Other lower respiratory disease (2 sources) Lower respiratory tract infection; Translations: [Unspecified acute lower respiratory infection] 12-22-2023 Episodic Other lower respiratory disease (7 sources) Imaging of lung abnormal ; Translations: [Other nonspecific abnormal finding of lung field] 02-22-2024 Episodic Pathological fracture (4 sources) Pathological fracture of pelvis; Translations: [Pathological fracture, pelvis, initial encounter for fracture] 07-19-2015 Episodic Pneumonia (except that caused by tuberculosis or sexually transmitted disease) (3 sources) Pneumonia; Translations: [Pneumonia, unspecified organism] 02-08-2022 Episodic Residual codes; unclassified (7 sources) Insomnia; Translations: [Other insomnia] 12-02-2024 Chronic Residual codes; unclassified (1 source) Menopause present; Translations: [Asymptomatic menopausal state] Episodic Residual codes; unclassified (2 sources) Ex-smoker for less than 1 year; Translations: [Other specified health status] 02-22-2024 Episodic Residual codes; unclassified (1 source) Family history of cancer of colon; Translations: [Family history of malignant neoplasm of digestive organs] 02-22-2024 Episodic Sprains and strains (4 sources) Low back strain; Translations: [Strain of muscle, fascia and tendon of lower back, initial encounter] 10-23-2013 Episodic Substance-related disorders (16 sources) Smoker; Translations: [Nicotine dependence, unspecified, uncomplicated] Onset: Chronic Superficial injury; contusion (4 sources) Contusion of hip; Translations: [Contusion of unspecified hip, initial encounter] 10-23-2013 Episodic Past or Other Problems Problem Classification Problem Date Documented Da te Episodic/Chronic Other bone disease and musculoskeletal deformities (20 sources) Osteopenia; Translations: [Other specified disorders of bone density and structure, unspecified site] Onset: 09-04-2021 01-13-2023 Episodic Other lower respiratory disease (2 sources) Cough; Translations: [Cough, unspecified type] Episodic Other lower respiratory disease (2 sources) Other nonspecific abnormal finding of lung field; Translations: [Other nonspecific abnormal finding of lung field] Onset: 07-29-2024 Episodic Other screening for suspected conditions (not mental disorders or infectious disease) (13 sources) Patient encounter status; Translations: [Encounter for screening for malignant neoplasm of colon] Onset: 02-22-2024 02-22-2024 Episodic Residual codes; unclassified (2 sources) Mammogram declined; Translations: [Procedure and treatment not carried out because of patient's decision for unspecified reasons] Episodic Residual codes; unclassified (2 sources) Colonoscopy refused; Translations: [Procedure and treatment not carried out because of patient's decision for unspecified reasons] Episodic Results Test Name Value Interpretation Reference Range Facility 02-11-2025 36 Patient advised and voiced understanding. [facility] 02-10-2025 29 Addended by: JUJU PATTON on: 02/10/2025 03:52 PM Modules accepted: Orders [facility] 02-10-2025 36 Called patient to relay provider message left voicemail to call office back. Mychart message sent to patient. Please relay message to patient. [facility] 36 Message released to patient as written. Patient's further questions if applicable: Were all questions from office addressed or relayed to the patient from encounter: Yes. I released the following to the doctor: Antibiotic, and prednisone prescribed to her local pharmacy. I would take the prednisone 5 days due to her emphysema She asked about her trazodone being called in as well. She said she takes 1 1/2 nightly. She needs a new script sent in. Please advise [place] [id number] Left message to return call Gasper Nelson DO 02/10/25 12:43 PM Antibiotic, and prednisone prescribed to her local pharmacy. I would take the prednisone 5 days due to her emphysema [facility] 36 Recent Visits Date Type Provider Dept 11/12/24 Office Visit Siomara Estrada PA-C [facility] 02/22/24 Office Visit Gasper Nelson DO [facility] Showing recent visits within past 365 days and meeting all other requirements Future Appointments No visits were found meeting these conditions. Showing future appointments within next 90 days and meeting all other requirements Requested Prescriptions Pending Prescriptions Disp Refills traZODone (Desyrel) 150 MG tablet 90 tablet 1 Sig: Take 1 tablet (150 mg) by mouth Nightly as needed for sleep. Provider: Gasper Nelson DO Verified pharmacy: yes Verified day(s) supplied: yes Verified refill(s) needed (previous prescription showing no refills in chart): Yes Have you received any controlled medications from any other provider? N/A Overdue for visit: No If yes - patient scheduled? Yes Most recent labs completed in chart? N/A [place] [id number] Recent Visits Date Type Provider Dept 11/12/24 Office Visit Siomara Estrada PA-C [facility] 02/22/24 Office Visit Gasper Nelson DO [facility] Showing recent visits within past 365 days and meeting all other requirements Future Appointments No visits were found meeting these conditions. Showing future appointments within next 90 days and meeting all other requirements Requested Prescriptions Pending Prescriptions Disp Refills albuterol (Proventil HFA) 108 (90 Base) MCG/ACT inhaler 6.7 g 3 Sig: Inhale 2 puffs every 4 hours as needed for wheezing or shortness of breath. Provider: Siomara Estrada PA-C Verified pharmacy: yes Verified day(s) supplied: yes Verified refill(s) needed (previous prescription showing no refills in chart): Yes Have you received any controlled medications from any other provider? N/A Overdue for visit: No If yes - patient scheduled? Yes Most recent labs completed in chart? N/A Normal [facility] 36 S: Patient spoke wit h [facility] nurse regarding chest congestion and increased shortness of breath. B: Onset of symptoms started Monday night. A: Reports chest congestion, headache, productive cough, an irritated throat from coughing, chest feels a little tight and increased shortness of breath, a little worse than normal. Wheezing remains the same as always. She is just about out of her inhaler and has requested a refill on this. Patient is talking in complete sentences without distress, no audible wheezing heard. No fever. She is on her way to work and notes she is unable to be seen today. She is asking for an antibiotic as well as a refill on her albuterol inhaler. (Sent via [employer] request). Allergies and pharmacy verified. R: Offered appointment, she declines. Advised once the physician reviews the message the office will reach out to her. Advised to sleep with head of bed elevated, increase fluids and humidifier. Advised if her breathing worsens she will need to go to Urgent Care or ED. Advised to call back if she changes her mind and would like an appointment. She understands the above care advice and has no further questions or concerns at this time. Denies COVID/flu symptoms or exposure within the Reason for Disposition MILD difficulty breathing (e.g., minimal/no SOB at rest, SOB with walking, pulse < 100) of new-onset or worse than normal Protocols used: Breathing [id number] Normal [facility] 36on 12-13-2024 36 Recent Visits Date Type Provider Dept 11/12/24 Office Visit Siomara Estrada PA-C [facility] 02/22/24 Office Visit Gasper Nelson DO [facility] Showing recent visits within past 365 days and meeting all other requirements Future Appointments No visits were found meeting these conditions. Showing future appointments within next 90 days and meeting all other requirements Requested Prescriptions Pending Prescriptions Disp Refills simvastatin (Zocor) 40 MG tablet 90 tablet 1 Sig: Take one tablet by mouth nightly. Provider: Gasper Nelson DO Verified pharmacy: yes Verified day(s) supplied: yes Verified refill(s) needed (previous prescription showing no refills in chart): Yes Have you received any controlled medications from any other provider? N/A Overdue for visit: No If yes - patient scheduled? Yes Most recent labs completed in chart? No Cholesterol: Lab Results Component Value Date CHOLESTEROLT 229 (H) 01/13/2023 HDLCHOLESTER 55 01/13/2023 TRIGLYCERIDE 92 01/13/2023 LDLCHOLESTER 154 (H) 01/13/2023 CHOLHDLCRATI 4.2 01/13/2023 NONHDLCHOLES 174 (H) 01/13/2023 [facility] 37on 11-12-2024 37 Personalized Preventative Plan for Ashley Gómez - 11/12/2024 Medicare offers a range of preventative health benefits. Some of the tests and screenings are paid in full while others may be subject to a deductible, co-insurance, and / or copay. Some of these benefits include a comprehensive review of your medical history including lifestyle, illnesses that may run in your family, and various assessments and screenings as appropriate. After reviewing your medical record and screening and assessments performed today, your provider may have ordered immunizations, labs, imaging, and / or referrals for you. A list of these orders (if applicable) as well as your Preventative Care list are included within your After Visit Summary for your review. Other Preventative Recommendations: A preventive eye exam by an special effects specialist is recommended every 1-2 years to screen for glaucoma, cataracts, macular degeneration, and other eye disorders. A preventive dental visit is recommended every 6 months. Try to get at least 150 minutes of exercise per week or 10,000 steps per day on a pedometer. You need 1200-1500mg of calcium and [id number] international units of vitamin D per day. It is possible to meet your calcium requirement with diet alone, but a vitamin D supplement is usually necessary to meet this goal. When exposed to the sun, use a sunscreen that protects against both UVA and UVB radiation with an SPF of 30 or greater. Reapply every 2-3 hours or after sweating, drying off with a towel, or swimming. Always wear a seat belt when traveling in a car. Always wear a helmet when riding a bicycle or a motorcycle [facility] Office Visiton 11-12-2024 Follow-up visit [id number] Ashley Gómez 1955 F Date Provider Department Center 11/12/2024 SIOMARA DIAZ [facility] Family History Problem Relation Age of Onset Pancreatic cancer Mother Comments: smoker , age 78 COPD Father Comments: coalminers lung, age 79 Stomach cancer Sister Other Sister Comments: covid Accidental Sister Comments: fall Cancer Sister Comments: ? type Cancer Brother Comments: Unknown type Heart disease Brother Comments: age 58 Colon cancer Brother 55 Other Brother Comments: age 80 of COVID Leukemia Brother No Known Problems Brother No Known Problems Brother No Known Problems Brother Family Status - Relation Status Age at Mother Father Sister Sister Sister Sister Brother Brother Brother Brother Brother Alive Brother Alive Brother Alive Level of Service:[id number] NM PPPS, SUBSEQ VISIT Reason for Visit and Comments: Medicare Annual Wellness Visit Subsequent [677] Normal [facility] Progress Noteon 11-12-2024 Progress Note - Chronic stable was taking simvastatin 80 mg daily but felt that that was too much and she was concerned about problems with her liver so she has been cutting in half and taking 40 mg daily. Will recheck her levels today but I believe this is reasonable enough as her levels have been adequately controlled Normal [facility] Progress Note - Chronic stable she will continue on esomeprazole 40 mg daily. Normal [facility] Progress Note - Chronic stable patient was recently treated for flareup with amoxicillin and prednisone she can take the prednisone she is requesting a lower dose Medrol Dosepak and a second round of antibiotics that she started in some generalized wheezing and congestion strongly encouraged smoking cessation. Normal [facility] Progress Note [facility] - [address] [facility] [address] Dept: [phone] Dept Chief Complaint: Ashley Gómez is an 69 y.o. female here for an annual wellness visit. Assessment/Plan : Problem List Items Addressed This Visit COPD (chronic obstructive pulmonary disease) (HCC) - Chronic stable patient was recently treated for flareup with amoxicillin and prednisone she can take the prednisone she is requesting a lower dose Medrol Dosepak and a second round of antibiotics that she started in some generalized wheezing and congestion strongly encouraged smoking cessation. Relevant Medications methylPREDNISolone (Medrol Dospak) 4 MG tablets azithromycin (Zithromax) 250 MG tablet albuterol (Proventil HFA) 108 (90 Base) MCG/ACT inhaler GERD (gastroesophageal reflux disease) - Chronic stable she will continue on esomeprazole 40 mg daily. Hypercholesterolemia - Chronic stable was taking simvastatin 80 mg daily but felt that that was too much and she was concerned about problems with her liver so she has been cutting in half and taking 40 mg daily. Will recheck her levels today but I believe this is reasonable enough as her levels have been adequately controlled Relevant Orders Comprehensive metabolic panel CBC auto differential Lipid panel Other Visit Diagnoses Routine general medical examination at health care facility - Primary Relevant Orders Comprehensive metabolic panel CBC auto differential Encounter for screening mammogram for malignant neoplasm of breast Relevant Orders Bilateral screening mammogram with tomosynthesis I have reviewed and reconciled the medication list with the patient today. Current Outpatient Medications Medication Sig Dispense Refill alendronate (Fosamax) 70 MG tablet TAKE 1 TABLET WEEKLY DIRECTED. SEE PACKAGE FOR ADDITIONAL INSTRUCTIONS 12 tablet 3 dextromethorphan-guai FENesin (Robitussin-DM) 10-100 MG/5ML liquid 2 tsp QID prn cough 240 mL 0 esomeprazole (NexIUM) [address] capsule TAKE 1 CAPSULE EVERY MORNING BEFORE BREAKFAST 90 capsule 1 simvastatin (Zocor) 80 MG tablet TAKE 1 TABLET EVERY NIGHT (Patient taking differently: Take 40 mg by mouth Nightly.) 90 tablet 1 venlafaxine XR (Effexor XR) 150 MG 24 hr capsule TAKE 1 CAPSULE EVERY MORNING 90 capsule 1 albuterol (Proventil HFA) 108 (90 Base) MCG/ACT inhaler Inhale 2 puffs every 4 hours as needed for wheezing or shortness of breath. 6.7 g 3 azithromycin (Zithromax) 250 MG tablet Take 2 tabs (500 mg) by mouth today, than 1 daily for 4 days. 6 tablet 0 methylPREDNISolone (Medrol Dospak) 4 MG tablets Take as directed on package. 21 tablet 0 traZODone (Desyrel) 150 MG tablet Take 1 tablet (150 mg) by mouth Nightly as needed for sleep. (Patient not taking: Reported on 11/12/2024) 90 tablet 1 No current facility-administered medications for this visit. Also reviewed during this visit: The following health maintenance schedule was reviewed with the patient and provided in printed form in the after visit summary: Health Maintenance Topic Date Due Hepatitis C Screening Never done DTaP/Tdap/Td Vaccines (1 - Tdap) Never done Zoster Vaccines (1 of 2) Never done Mammogram 01/11/2023 Influenza Vaccine (1) 03/03/2025 (Originally 05/05/2024) RSV Immunization for Adults (1 - Risk 60-74 years 1-dose series) 11/12/2025 (Originally 2014) COVID-19 Vaccine ( season) 2025 (Originally 05/05/2024) Depression Monitoring 05/15/2025 Lipid Panel 12/17/2028 Colorectal Cancer Screening 04/29/2034 Medicare Advantage Annual Wellness Visit Completed Pneumococcal Vaccine: 50+ Years Completed Bone Density Scan Completed RSV Immunization under 20 Months Aged Out HIB Vaccines Aged Out Hepatitis B Vaccines Aged Out IPV Vaccines Aged Out Hepatitis A Vaccines Aged Out Meningococcal Vaccine Aged Out Rotavirus Vaccines Aged Out HPV Vaccines Aged Out List of current healthcare providers: Patient Care Team: Gasper Nelson DO as PCP - General (Family Medicine) Orders Placed This Encounter Procedures Bilateral screening mammogram with tomosynthesis Standing Status: Future Standing Expiration Date: 01/12/2026 Comprehensive metabolic panel Standing Status: Future Number of Occurrences: 1 Standing Expiration Date: 11/12/2025 CBC auto differential Standing Status: Future Number of Occurrences: 1 Standing Expiration Date: 11/12/2025 Lipid panel Standing Status: Future Number of Occurrences: 1 Standing Expiration Date: 11/12/2025 Order Specific Question: Has the patient been fasting for 8 hours or more? Answer: Yes Review of Systems Constitutional: Negative for chills and fever. HENT: Positive for congestion. Negative for sore throat. Respiratory: Positive for cough and wheezing. Negative for shortness of breath. Cardiovascular: Negative for chest pain. Ga (more content not included)... Normal [facility] 36on 10-31-2024 36 S: Patient spoke wit h CAC nurse regarding chest congestion, B: Onset of symptoms/concern 10/29/24 A: Pt endorses ears clogged, pain in back and non-productive cough, chest congestion, fever headache, fatigue, shortness of breath with activity, wheezing. R: Pt unable to come into office due to lack of transportation. Pt requesting to have medication sent to pharmacy. PT scheduled Mychart VV with Dr. Nelson at 10/31/24 at 12:00 PM. Pt given home care advise for Cough. Patient understands care advice. No further needs at this time. Patient instructed to call back with new or worsening symptoms. Reason for Disposition [1] MILD difficulty breathing (e.g., minimal/no SOB at rest, SOB with walking, pulse <100) AND [2] still present when not coughing Protocols used: Cough - Acute Mqn-Seoelzcqem-NKAJW- AH Normal [facility] Progress Noteon 10-31-2024 Progress Note [facility] - [address] [facility] [address] Dept: [phone] Dept Loc: [phone] Patient was identified and seen today via Telehealth by agreement and consent. I used the following Telehealth technology: Audio and video capabilities. Patient location: VV Patient Location: Home. This patient encounter is appropriate and reasonable under the circumstances: too sick to leave home . The patient has been advised of the potential risks and limitations of this mode of treatment (including but not limited to the absence of in-person examination) and has agreed to be treated in a remote fashion in spite of them. Any and all of the patient's/patient's family's questions on this issue have been answered and I have made no promises or guarantees to the patient. The patient has also been advised to contact this office for worsening conditions or problems, and seek emergency medical treatment and/or call 911 if the patient deems either necessary. The patient stated that they are currently in the state [facility]. If the patient is a minor, permission has been obtained by the parent or guardian for the patient to receive medical care at this visit. Assessment/Plan Diagnoses and all orders for this visit: Chronic obstructive pulmonary disease with acute exacerbation (HCC) (Primary) Influenza Other orders - amoxicillin (Amoxil) 500 MG capsule; Take 1 capsule (500 mg) by mouth 3 times daily for 10 days. - predniSONE (Deltasone) 20 MG tablet; Take 1 tablet (20 mg) by mouth 2 times daily for 10 doses. - dextromethorphan-guai FENesin (Robitussin-DM) 10-100 MG/5ML liquid; 2 tsp QID prn cough On the video she was alert and oriented. There is no pallor cyanosis or edema. She was able to speak sentences but did have a dry cough. There is no overt wheezing. No follow-ups on file. Patient instructed to call with any worsening or prolonged Sore throat, cough, chest pain, shortness of breath, body aches, fever, and diarrhea. Also instructed patient to buy a pulse oximeter and check her O2 sat to make sure it is above 94%. To go to ER with any decline with more shortness of breath or persistent vomiting or diarrhea. Did recommend her to quit smoking as well and take albuterol 2 puffs 4 times a day. Yusuf Gómez is a 69 y.o. who presents on the video for a remote visit. Chief complaint: No chief complaint on file. Fever body aches and scant productive cough of yellow sputum HPI Long-term smoker with history of COPD presents with 3 days of acute onset of bodyaches backaches and fever. Also some mild vomiting or diarrhea. Now has a harsh cough that is somewhat productive of yellow spit. She denied photophobia or neck pain. She denied chest pain or pleurisy. She denied PND orthopnea or edema. No abdominal pain. She is holding down some liquids. She has not had diarrhea for a day. He is urinating pretty well. Taking albuterol on a as needed basis. Of note she did not get immunized this fall for influenza or COVID. Did not do any home viral testing. Allergies Allergen Reactions Sulfa Antibiotics Swelling Other reaction(s): Other: See Comments Other reaction(s): U Other reaction(s): Hives Other reaction(s): Hives pulled eye backward Other reaction(s): U [] PMH, allergies, and social history reviewed and updated as appropriate [] Medication list reviewed/updated [] Allergies reviewed/updated [] Problem list reviewed/updated [] Patient requests medication refills, see below for orders. Gasper Nelson, 10/31/2024 12:20 PM [facility] 36on 10-01-2024 36 Received signed receipt of certified letter sent to patient. Scanned to media in chart. [facility] 36on 09-30-2024 36 Recent Visits Date Type Provider Dept 02/22/24 Office Visit Gasper Nelson DO [facility] Showing recent visits within past 365 days and meeting all other requirements Future Appointments Date Type Provider Dept 11/12/24 Appointment Gasper Nelson DO [facility] Showing future appointments within next 90 days and meeting all other requirements Requested Prescriptions Pending Prescriptions Disp Refills venlafaxine XR (Effexor XR) 150 MG 24 hr capsule [Pharmacy Med Name: Venlafaxine HCl ER Oral Capsule Extended Release 24 Hour 150 MG] 90 capsule 1 Sig: TAKE 1 CAPSULE EVERY MORNING esomeprazole (NexIUM) [address] capsule [Pharmacy Med Name: Esomeprazole Magnesium Oral Capsule Delayed Release 40 MG] 90 capsule 1 Sig: TAKE 1 CAPSULE EVERY MORNING BEFORE BREAKFAST Provider: Gasper Nelson DO Verified pharmacy: yes Verified day(s) supplied: yes Verified refill(s) needed (previous prescription showing no refills in chart): Yes Have you received any controlled medications from any other provider? N/A Overdue for visit: No If yes - patient scheduled? N/A Most recent labs completed in chart? N/A None [place] [address]on 09-16-2024 36 Recent Visits Date Type Provider Dept 02/22/24 Office Visit Gasper Nelson DO [facility] Showing recent visits within past 365 days and meeting all other requirements Future Appointments Date Type Provider Dept 09/30/24 Appointment Gasper Nelson DO [facility] Showing future appointments within next 90 days and meeting all other requirements Requested Prescriptions Pending Prescriptions Disp Refills alendronate (Fosamax) 70 MG tablet [Pharmacy Med Name: Alendronate Sodium Oral Tablet 70 MG] 12 tablet 3 Sig: TAKE 1 TABLET WEEKLY DIRECTED. SEE PACKAGE FOR ADDITIONAL INSTRUCTIONS Provider: Gasper Nelson DO Verified pharmacy: yes Verified day(s) supplied: yes Verified refill(s) needed (previous prescription showing no refills in chart): Yes Have you received any controlled medications from any other provider? No Overdue for visit: No If yes - patient scheduled? Yes Most recent labs completed in chart? Yes Cholesterol: Lab Results Component Value Date CHOLESTEROLT 229 (H) 01/13/2023 HDLCHOLESTER 55 01/13/2023 TRIGLYCERIDE 92 01/13/2023 LDLCHOLESTER 154 (H) 01/13/2023 CHOLHDLCRATI 4.2 01/13/2023 NONHDLCHOLES 174 (H) 01/13/2023 [facility] 36on 08-05-2024 36 Transferred to resul t notes Normal [facility] 36 Message released to patient as written. Patient's further questions if applicable: NA Were all questions from office addressed or relayed to the patient from encounter: Yes [facility] 36 Placed call to patient. Unable to reach them by phone to discuss lab results. Left detailed message to return call to discuss results. Please release information to patient [facility] 36 ----- Message from Juju Rodriguez sent at 08/05/2024 7:36 AM EST ----- ----- Message ----- From: Gasper Nelson DO Sent: 08/04/2024 5:20 PM EST To: [facility] Clinical Meeting Specialist Stable small pulmonary nodules and they now recommend recheck study in 1 year. As noted before she has moderate amount of emphysema. Normal [facility] CT LUNG SCREENING FOLLOW UP LOW DOSEon 07-31-2024 CT LUNG SCREENING FOLLOW UP LOW DOSE This is a summary report. The complete report is available in the patient's medical record. If you cannot access the medical record, please contact the sending organization for a detailed fax or copy. Patient Name: ASH[facility]MEZ [facility] 1955 [id number] Exam Date/Time: 07/29/2024 11:38 Procedure: CT LUNG SCREENING FOLLOW UP LOW DOSE Ordering Provider: NELOSN EUGENE Reason For Exam: f/u abn ct from 09/[address] CHEST WITHOUT CONTRAST: CLINICAL INDICATION: Current smoker with nicotine dependence TECHNIQUE: Low dose transaxial sequence through the chest from apices through the bases with low-dose technique with 1 mm reconstruction. Sagittal and coronal reconstructions included. Dose reduction was employed with automated exposure control. COMPARISON: 12/18/2023 FINDINGS: Lungs nodules: Stable 4 mm irregular nodule in the left upper lobe (series 6, image 93). Stable 3 mm nodule meets superior right lower lobe (series 6, image 172). No new pulmonary nodule. Other lung findings: Central airways are patent. Previously noted reticulonodular opacities in the anterior left lower lobe have resolved. There is persistent bandlike atelectasis at the base of the right upper lobe along the minor fissure. Calcified granuloma in the posterolateral left upper lobe and medial right lung apex. There is moderate centrilobular emphysema. Pleural spaces: No pleural fluid or thickening. Heart/Great vessels: Normal size cardiac chambers. Coronary artery and aorta atherosclerotic calcifications. Mediastinum/Sosa: No mediastinal or bulky hilar lymphadenopathy. Chest wall/Neck base: Normal. Upper abdomen: No abnormality throughout the visualized portions of liver. Normal visualized portions of the spleen. Normal adrenal glands. Cholecystectomy. Bones: Degenerative change of the thoracic spine. IMPRESSION: 1. Stable bilateral pulmonary nodules measuring up to 4 mm. No new or suspicious pulmonary nodule. 2. Resolution of previously noted patchy infiltrate in the anterior left lower lobe. 3. Bandlike atelectasis in the base of the right upper lobe, similar to prior exam. 4. Moderate emphysema. 5. Coronary calcifications. ASSESSMENT CATEGORY: Lung-RADS Category 2 - Benign appearance or behavior. Recommend continued annual low-dose screening CT in 12 months. No other clinically significant findings. Report Dictated on Electronically Signed By: Michael Loo MD Electronically Signed Date/Time: 07/31/2024 2:02 PM EST F/U SCAN SMOKER Normal [facility] 36on 07-24-2024 36 Recent Visits Date Type Provider Dept 02/22/24 Office Visit Gasper Nelson DO [facility] 07/31/23 Office Visit Gasper Nelson DO [facility] Showing recent visits within past 365 days and meeting all other requirements Future Appointments Date Type Provider Dept 08/21/24 Appointment Gasper Nelson DO [facility] Showing future appointments within next 90 days and meeting all other requirements Requested Prescriptions Pending Prescriptions Disp Refills simvastatin (Zocor) 80 MG tablet [Pharmacy Med Name: Simvastatin Oral Tablet 80 MG] 90 tablet 1 Sig: TAKE 1 TABLET EVERY NIGHT Provider: Gasper Nelson DO Verified pharmacy: yes Verified day(s) supplied: yes Verified refill(s) needed (previous prescription showing no refills in chart): Yes Have you received any controlled medications from any other provider? N/A Overdue for visit: Yes If yes - patient scheduled? Yes Most recent labs completed in chart? Yes Cholesterol: Lab Results Component Value Date CHOLESTEROLT 229 (H) 01/13/2023 HDLCHOLESTER 55 01/13/2023 TRIGLYCERIDE 92 01/13/2023 LDLCHOLESTER 154 (H) 01/13/2023 CHOLHDLCRATI 4.2 01/13/2023 NONHDLCHOLES 174 (H) 01/13/2023 [place] [id number] 06-28-2024 Reason for call: Pari, I am calling as the CT Lung Screening follow up low dose order for 02/22/24 was cancelled by Farida Winn Due to being unable to contact the patient. If the provider would still like the patient to have this completed either the old order needs to be un cancelled or a new order needs to be placed and then I can reach out to the patient to get her scheduled. Thank you Contact [place] [address] No auth needed. Faxe d orders to [facility]-Scheduling for pt to be sched - [facility] will sched/advise pt. My chart mess sent to patient with info to sched. [place] [address]on 06-27-2024 36 Vincent Perez, It looks like the patient navigator has done all that she can do. So it looks like all avenues have been exhausted to try and reach this patient to schedule. [facility] 36 To April to follow up [place] [address] Mrs. Gómez called i n after receiving certified letter. She would like to return to complete the recommended lung screening 3 month follow-up imaging previously ordered by Dr. Nelson. Will send message to provider office to place new referral for imaging and assist patient with scheduling. She prefers [facility] for imaging location and is available on Monday the if there are any appointments available. [place] [address]on 06-11-2024 36 RX loaded Next ov 08/21/24 [place] [address] Medication name: traZODone (Desyrel) 150 MG tablet Patient states that they are running low on this medication. Please advise. Medication dosage: 150 mg (Miligrams Monthly quantity needed: 30 How many day supply requestin days Medication route: oral (PO) Medication administration time(s): as needed at bedtime (HS) If taking medication PRN, reason for taking medication: sleep If this is a controlled substance do you receive this or any other controlled medication from any other doctor or facility: N/A Ordering provider: Dr. Nelson Date of last office visit: 02/22/24 Date of next office visit: 08/21/24 Date of last refill: (see medication tab): 04/17/24 Updated/Validated preferred pharmacy: Yes Patient instructed to contact the pharmacy prior to picking up the medication: Yes Normal [facility] Colonoscopy Reporton 024 Colonoscopy Report [facility] Medical Records Department [address] [place] [address] Colonoscopy Report MR#: [id number] Acct: [id number] Name: ASHLEY GÓMEZ Rep #: [id number] : 1955 68 From: Slim Weiss DO PCP: Dr. Danish Davila DO [place] [place] Name: Ashley Gómez Procedure Date: 04/29/2024 8:54 AM Date of : 1955 Age: 68 Procedure: Colonoscopy Indications: Screening for colorectal malignant neoplasm Providers: Slim Weiss DO Medicines: Monitored Anesthesia Care Patient Profile: This is a 68 year old female. Refer to note in patient chart for documentation of history and physical. Last Colonoscopy: 10 years ago. Complications: No immediate complications. Procedure: Pre-Anesthesia Assessment: - Prior to the procedure, a History and Physical was performed, and patient medications and allergies were reviewed. The patient is competent. The risks and benefits of the procedure and the sedation options and risks were discussed with the patient. All questions were answered and informed consent was obtained. Patient identification and proposed procedure were verified by the physician in the pre-procedure area. Mental Status Examination: alert and oriented. Airway Examination: normal oropharyngeal airway and neck mobility. Respiratory Examination: clear to auscultation. CV Examination: normal. Prophylactic Antibiotics: The patient does not require prophylactic antibiotics. Prior Anticoagulants: The patient has taken no anticoagulant or antiplatelet agents. ASA Grade Assessment: II - A patient with mild systemic disease. After reviewing the risks and benefits, the patient was deemed in satisfactory condition to undergo the procedure. The anesthesia plan was to use monitored anesthesia care (MAC). Immediately prior to administration of medications, the patient was re-assessed for adequacy to receive sedatives. The heart rate, respiratory rate, oxygen saturations, blood pressure, adequacy of pulmonary ventilation, and response to care were monitored throughout the procedure. The physical status of the patient was re-assessed after the procedure. After I obtained informed consent, the scope was passed under direct vision. Throughout the procedure, the patient's blood pressure, pulse, and oxygen saturations were monitored continuously. The Colonoscope was introduced through the anus and advanced to the cecum, identified by appendiceal orifice and ileocecal valve. The colonoscopy was performed without difficulty. The patient tolerated the procedure well. The quality of the bowel preparation was adequate. Scope In: 9:12:43 AM Scope Withdrawal Time 0 hours 9 minutes 39 seconds Scope Out: 9:30:34 AM Total Procedure Duration Time 0 hours 17 minutes 51 seconds Findings: The perianal and digital rectal examinations were normal. Multiple small and large-mouthed diverticula were found in the recto-sigmoid colon, sigmoid colon, descending colon and splenic flexure. No other significant abnormalities were identified in a careful examination of the remainder of the colon. Impression: - Diverticulosis in the recto-sigmoid colon, in the sigmoid colon, in the descending colon and at the splenic flexure. - No specimens collected. Recommendation: - Discharge patient to home. - Resume previous diet. - Continue present medications. - Repeat colonoscopy in 10 years for screening purposes. Procedure Code(s): --- Professional --- G0121, Colorectal cancer screening; colonoscopy on individual not meeting criteria for high risk CPT copyright 2021 [employer]. All rights reserved. The codes documented in this report are preliminary and upon foam rubber mixer review may be revised to meet current compliance requirements. Slim Weiss DO 04/29/2024 9:34:45 AM This report has been signed electronically. Number of Addenda: 0 Note Initiated On: 04/29/2024 8:54 AM 04/29/24 0934 Date Slim Goss Signature: Date (if indicated) CC: Dr. Danish Davila DO; Slim Weiss DO Date Dictated: 04/29/24853 Date Transcribed: Door Furring Installer: WES Signed [facility] MR/POSTOP.ANEon 04-29-2024 MR/POSTOP.[facility] Medical Records Department [address] [place] [id number] Anesthesia Postop Eval I 04/29/241402 MR#: [id number] Acct: [id number] Name: ASHLEY GÓMEZ Rep #: [id number] : 1955 68 From: Supriya Valdovinos CRNA PCP: Dr. Danish Davila DO Status:[facility] Race: C Location: Anesthesia: Postop Eval I Current Vital Signs Temperature: 97.2 F Pulse Rate: 96 Blood Pressure: 142/72 Respiratory Rate: 20 Pulse Ox: 99 Oxygen Delivery Method: Room Air Assessment Airway patent: Yes Spontaneous unlabored respirations: Yes Mental status: Awake and Calm nausea: No Vomiting: No Anesthesia Complication: No Fluid Hydration Crystalloid volume administer (ml): 1,000 Total IV fluid infused: 1,000 Progress Note Anesthesia document: Postop Eval 1 completed: Yes 04/29/241403 Date Supriya Valdovinos FISHING REEL ASSEMBLER Cosigner Signature: Date CC: Signed [facility] [id number] 04-29-2024 MR/POSTOPAN2 [facility] Medical Records Department [address] [place] [address] Anesthesia Postop Eval II 04/29/24 1341 MR#: [id number] Acct: [id number] Name: ASHLEY GÓMEZ Rep #: [id number] : 1955 68 From: David Valadez MD PCP: Dr. Danish Davila, DO [place] [place] Race: C Location: EN Anesthesia Postop Eval I Sum Anesthesia Postop Eval I Summary Anesthesia Postop Eval I Summary: Anesthesia Postop Eval I: Assessment Summary Airway patent Spontaneous unlabored respirations Mental status nausea Vomiting Anesthesia Postop Eval I: Fluid Summary Crystalloid volume administer (ml) Colloids volume administered ( ml) Blood Product volume administered (ml) Total IV fluid infused Anesthesia Postop Eval I: Summary Notes Anesthesia Complication Anesthesia Complication Comment: Post-operative progress note Anesthesia: Postop Eval II Evaluation Mental status: Awake and Calm Pain Level: 0 nausea: No Vomiting: No Complications Anesthesia Complication: No 04/29/24 1342 Date David Valadez MD Cosigner Signature: Date CC: Signed Normal [facility] 36on 04-17-2024 36 Recent Visits Date Type Provider Dept 02/22/24 Office Visit Gasper Nelson DO [facility] 07/31/23 Office Visit Gasper Nelson DO [facility] Showing recent visits within past 365 days and meeting all other requirements Future Appointments No visits were found meeting these conditions. Showing future appointments within next 90 days and meeting all other requirements Requested Prescriptions Pending Prescriptions Disp Refills traZODone (Desyrel) 150 MG tablet [Pharmacy Med Name: TRAZODONE HYDROCHLORIDE 150 MG Tablet] 90 tablet 0 Sig: Take 1 tablet (150 mg) by mouth Nightly as needed for sleep. Provider: Gasper Nilesh Petrilla, DO Overdue for visit: No If yes - patient scheduled? Yes - 08/21/2024 Most recent labs completed in chart? Yes Verified pharmacy: yes Verified day(s) supplied: yes Verified refill(s) needed (previous prescription showing no refills in chart): Yes Have you received any controlled medications from any other provider? No None Normal [facility] 36on 04-12-2024 36 Orders cancelled Normal [facility] 36on 04-11-2024 36 We have been unable to reach your patient to schedule their testing. Test Name: CT lung screening follow up, PFT and Mammo 1st Attempt: 03/30/24 2nd Attempt: 04/11/24 Jae, [facility] Central Scheduling Normal [facility] Office Visiton 02-22-2024 Follow-up visit [id number] Ashley Gómez 1955 F Date Provider Department Center 02/22/2024 [id number] RASHID [facility] Family History Problem Relation Age of Onset Pancreatic cancer Mother Comments: smoker , age 78 COPD Father Comments: coalminers lung, age 79 Stomach cancer Sister Other Sister Comments: covid Accidental Sister Comments: fall Cancer Sister Comments: ? type Cancer Brother Comments: Unknown type Heart disease Brother Comments: age 58 Colon cancer Brother 55 Other Brother Comments: age 80 of COVID Leukemia Brother No Known Problems Brother No Known Problems Brother No Known Problems Brother Family Status - Relation Status Age at Mother Father Sister Sister Sister Sister Brother Brother Brother Brother Brother Alive Brother Alive Brother Alive Level of Service:01597 NM OFFICE/OUTPATIENT ESTABLISHED MOD MDM 30 MIN Reason for Visit and Comments: Follow-up [[id number]] - Ct scan Normal [facility] Progress Noteon 02-22-2024 Progress Note [facility] [address] [place] [address] [address] [facility] [id number] Visit type: Established Patient Reason for Visit: Follow-up (Ct scan ) Assessment / Plan: Isauro was seen today for follow-up. Diagnoses and all orders for this visit: Chronic obstructive pulmonary disease, unspecified COPD type (HCC) (Primary) Comments: Stable but needs PFTs and possible different inhaler might need Anoro Orders: - CBC auto differential; Future - Comprehensive metabolic panel; Future - Complete PFT pre and post bronchodilator; Future - CBC auto differential - Comprehensive metabolic panel Abnormal CT scan of lung Comments: noted, rech CT chest Orders: - albuterol (Proventil HFA) 108 (90 Base) MCG/ACT inhaler; Inhale 2 puffs every 4 hours as needed for wheezing or shortness of breath. Hypercholesterolemia Comments: Stable, continue Zocor Colon cancer screening Breast cancer screening by mammogram - Bilateral screening mammogram with tomosynthesis; Future Depression, unspecified depression type Comments: Stable, continue Effexor and trazodone Gastroesophageal reflux disease without esophagitis Comments: Stable, continue Nexium and avoidance measures Ex-smoker for less than 1 year Comments: Noted, praise given Other orders - alendronate (Fosamax) 70 MG tablet; TAKE 1 TABLET WEEKLY DIRECTED. SEE PACKAGE FOR ADDITIONAL INSTRUCTIONS - simvastatin (Zocor) 80 MG tablet; Take 1 tablet (80 mg) by mouth Nightly for 180 doses. - venlafaxine XR (Effexor XR) 150 MG 24 hr capsule; TAKE 1 CAPSULE BY MOUTH IN THE MORNING. - esomeprazole (NexIUM) [address] capsule; TAKE 1 CAPSULE EVERY MORNING BEFORE BREAKFAST - Discontinue: Fluticasone-Salmetero l (Wixela Inhub) 250-50 MCG/ACT aerosol powder ; Inhale 1 Inhalation in the morning and 1 Inhalation in the evening. - traZODone (Desyrel) 150 MG tablet; Take 1 tablet (150 mg) by mouth Nightly as needed for sleep for up to 90 doses. Subjective: Patient ID: Ashley Gómez is a 68 y.o. female. HPI ex-smoker for about 6 weeks presents for overall checkup. She wonders whether she needs another antibiotic. Has productive cough of clear phlegm forever. No chest pain fever or change in dyspnea. Stop smoking in 02 January. Of note is not on Wixela inhaler. Taking albuterol only somewhat regularly. He is due for LDCT chest for follow-up of slight abnormalities found in September. No hemoptysis night sweats or chills. Strong family history of cancer is noted Review of Systems denies exertional chest pain palpitations PND orthopnea claudication or edema. Heartburn well-controlled. No dysphagia. No abdominal pain. Bowels regular. No melena or blood She is due for colonoscopy. Also needs breast exam and mammogram. No breast complaints Allergies Allergen Reactions Sulfa Antibiotics Swelling Other reaction(s): Other: See Comments Other reaction(s): U Other reaction(s): Hives Other reaction(s): Hives pulled eye backward Other reaction(s): U Current Outpatient Medications on File Prior to Visit Medication Sig Dispense Refill [DISCONTINUED] albuterol (Proventil HFA) 108 (90 Base) MCG/ACT inhaler Inhale 2 puffs every 4 hours as needed for wheezing or shortness of breath. 6.7 g 1 [DISCONTINUED] alendronate (Fosamax) 70 MG tablet TAKE 1 TABLET WEEKLY DIRECTED. SEE PACKAGE FOR ADDITIONAL INSTRUCTIONS 12 tablet 1 [DISCONTINUED] esomeprazole (NexIUM) [address] capsule TAKE 1 CAPSULE EVERY MORNING BEFORE BREAKFAST 90 capsule 1 [DISCONTINUED] simvastatin (Zocor) 80 MG tablet Take 1 tablet (80 mg) by mouth Nightly for 180 doses. 90 tablet 1 [DISCONTINUED] traZODone (Desyrel) 100 MG tablet TAKE 1 TABLET (100 MG) BY MOUTH NIGHTLY. 90 tablet 1 [DISCONTINUED] venlafaxine XR (Effexor XR) 150 MG 24 hr capsule TAKE 1 CAPSULE BY MOUTH IN THE MORNING. 90 capsule 1 [DISCONTINUED] Fluticasone-Salmetero l (Wixela Inhub) 250-50 MCG/ACT aerosol powder Inhale 1 Inhalation in the morning and 1 Inhalation in the evening. 1 each 5 [DISCONTINUED] predniSONE (Deltasone) 10 MG tablet Two twice daily for 3 days, then 1 twice daily for 3 days, then 1 daily till gone (Patient not taking: Reported on 02/22/2024) 21 tablet 0 No current facility-administered medications on file prior to visit. Patient Active Problem List Diagnosis COPD (chronic obstructive pulmonary disease) (HCC) Osteopenia GERD (gastroesophageal reflux disease) Social History Tobacco Use Smoking status: Every Day Current packs/day: 1.00 Average packs/day: 1 pack/day for 4.4 years (4.4 ttl pk-yrs) Types: Cigarettes Start date: 09/24/2019 Smokeless tobacco: Never Substance Use Topics Alcohol use: Not Currently Alcohol/week: 0.0 standard drinks of alcohol Past Surgical History: Procedure Laterality Date APPENDECTOMY 1966 CHOLECYSTECTOMY [address] Forde- marissa 2023 TONSILLECTOMY AND ADENOIDECTOMY (HISTORICAL) 1 (more content not included)... Normal [facility] Lipid 1996 panelon 4 Cholesterol [Mass/Vol] 162 mg/dL NINF - 200 mg/dL [facility] Cholesterol in HDL [Mass/Vol] 38 mg/dL Low 40 - 60 mg/dL [facility] Cholesterol in LDL [Mass/Vol] 106 mg/dL High 0 - <100 [facility] Cholesterol.total/Cho lesterol in HDL [Mass ratio] 4 {ratio} [facility] Comment on above: Ref Range: < 3 Low Risk for CHD 3-6 Mod Risk for CHD > 6 High Risk for CHD Interpretation and review of laboratory results Abnormal [facility] Triglyceride [Mass/Vol] 91 mg/dL NINF - 150 mg/dL [facility] Absolute lymphocyte counton 01-31-2022 Lymphocytes Auto (Unsp spec) [#/Vol] 1.28 10*3/uL 0.83-4.51 [facility] Work Phone: Basophil percentageon 2021 Basophils/100 WBC (Bld) 0.3 % 0-1 [facility] Work Phone: Chloride [Moles/Vol] 100 mmol/L 98-107 [facility] Work Phone: Eosinophils/100 WBC (Bld) 0.0 % 0-5 [facility] Work Phone: Glucose [Mass/Vol] 153 mg/dL 74-106 [facility] Work Phone: Comment on above: Fasting Glucose resu lt greater than or equal to 126 mg/dL suggests DIABETES MELLITUS per A.D.A. criteria. Neutrophils (Bld) [#/Vol] 17.2 10*3/uL 2.0-7.7 [facility] Work Phone: Neutrophils/100 WBC (Bld) 88.5 % 47-70 [facility] Work Phone: Potassium [Moles/Vol] 3.2 mmol/L 3.5-5.1 [facility] Work Phone: Comment on above: Slight Hemolysis, Re sult may be falsely increased. Sodium [Moles/Vol] 135 mmol/L 136-145 [facility] Work Phone: WBC (Bld) [#/Vol] 19.4 10*3/uL 4.4-11.0 [facility] Work Phone: Blood erythrocytes count (nu mber/volume)on 01-31-2022 RBC (Bld) [#/Vol] 4.26 10*6/uL 4.2-5.4 [facility] Work Phone: Blood hemoglobin measurement (mass/volume)on 01-31-2022 Hemoglobin (Bld) [Mass/Vol] 12.5 g/dL 12.0-15.0 [facility] Work Phone: Blood lymphocytes/100 leukoc yteson 01-31-2022 Lymphocytes/100 WBC (Bld) 6.6 % 19-41 [facility] Work Phone: Blood monocytes/100 leukocyt eson 01-31-2022 Monocytes/100 WBC (Bld) 3.5 % 0-10 [facility] Work Phone: Blood platelet mean volumeon 01-31-2022 Platelet mean volume (Bld) [Entitic vol] 10.4 fL 6.2-12.0 [facility] Work Phone: Determination of erythrocyte mean corpuscular volume (MCV)on 01-31-2022 MCV (RBC) [Entitic vol] 88.0 fL 81-99 [facility] Work Phone: Hematocrit Auto (Bld) [Volum e fraction]on 01-31-2022 Hematocrit (Bld) [Volume fraction] 37.5 % 37-47 [facility] Work Phone: Laboratory - Chemistry and C hemistry - challengeon 01-31-2022 CO2 [Moles/Vol] 27.0 mmol/L 21.0-32.0 [facility] Work Phone: Urea nitrogen/Creatinine [Mass ratio] 22.0 mg/mg 10-20 [facility] Work Phone: Laboratory - Hematology and Cell countson 01-31-2022 Erythrocyte distribution width (RBC) [Entitic vol] 45.4 fL 35.1-43.9 [facility] Work Phone: Erythrocyte distribution width (RBC) [Ratio] 14.1 % 11.6-14.6 [facility] Work Phone: Immature granulocytes/100 WBC (Bld) 1.100 % 0.0-0.9 [facility] Work Phone: Comment on above: IG% - Immature Granu locytes (promyelocytes, myelocytes and metamyelocytes) > 1% indicates that a LEFT SHIFT is Present. MCH (RBC) [Entitic mass] 29.3 pg 27.0-32.0 [facility] Work Phone: Nucleated RBC/100 WBC (Bld) [Ratio] 0 % 0-5 [facility] Work Phone: MCHC Auto (RBC) [Mass/Vol]on 01-31-2022 MCHC (RBC) [Mass/Vol] 33.3 g/dL 32-36 [facility] Work Phone: No Panel Informationon 01-31 Estimated Creatinine Clearance Calc 49.62 ml/min [facility] Work Phone: Estimated GFR (MDRD) Amer 79 mL/min >60 [facility] Work Phone: Comment on above: GFR Calc Estimated GFR (MDRD) Non-Af Amer 65 mL/min >60 [facility] Work Phone: Comment on above: Non- GFR Calc SARS-CoV-2 & FLU Antigen (Rapid) [facility] Work Phone: Platelets bldon 01-31-2022 Platelets (Bld) [#/Vol] 188 10*3/uL 150-450 [facility] Work Phone: Serum or plasma calcium janneth urement (mass/volume)on 01-31-2022 Calcium [Mass/Vol] 9.4 mg/dL 8.5-10.1 [facility] Work Phone: Serum or plasma creatinine m easurement (mass/volume)on 01-31-2022 Creatinine [Mass/Vol] 0.91 mg/dL 0.55-1.02 [facility] Work Phone: Comment on above: The validity of the calculated GFR & GFRAA in patients over 70 years has not been determined. Clinical correlation is essential. Serum or plasma urea nitroge n measurement (mass/volume)on 01-31-2022 Urea nitrogen [Mass/Vol] 20 mg/dL 7-18 [facility] Work Phone: Thin prep Papanicolaou smear with manual screeningon 01-31-2022 Thin prep Papanicolaou smear with manual screening 8 5-15 [facility] Work Phone: DEXA Bone Density Axial Skel etonoroseanna 01-11-2022 Patient Name: ASHLEY GÓMEZ Bone Density ACCESSION EXAM DATE/TIME PROCEDURE ORDERING PROVIDER [id number] 01/11/2022 15:04 EDT OT Bone Density DEXA DO DAVILA PAUL E. Axial Skeleton CPT code 53908 Reason For Exam (OT Bone Density DEXA Axial Skeleton) . Report DXA BONE DENSITOMETRY: CLINICAL INDICATION: Asymptomatic post-menopausal status COMPARISON: None TECHNIQUE: Quantitative bone mineral densitometry of the hip and lumbar spine was performed with a dual energy x-ray observed absorptiometry device - HoloClowdy Horizon W. Regions of interest were obtained through the left proximal femur and compared to the normal value of the young adult. Regions of interest were also obtained through the lumbar vertebrae with an average value determined and compared with the young adult. The measured bone density minus the bone density of the young normal reference divided by the reference standard deviation is expressed as the T score. Using the same formula adjusting the reference density and standard deviation for age and race determines the Z score. According to World Health Organization criteria: T-score of -1.0 or higher is normal. T-score between -1.0 and -2.5 is low bone density or osteopenia. T-score of -2.5 or lower is abnormally low, compatible with osteoporosis. T-score of -2.5 or less plus fragility fracture indicates severe osteoporosis. FINDINGS: Hip: Femoral neck Density: 0.649 g/cm2. T-score: -1.8 Z-score: -0.2 Hip: Total hip Density: 0.650 g/cm2. T-score: -2.4 Z-score: -1.0 Comparison from prior examination: N/A Spine: L1-L4 Density 0.874 g/cm2. T-score: -1.6 Z-score: 0.4 Comparison from prior examination: N/A IMPRESSION: Osteopenia. Bone Density Report FRACTURE RISK: The estimated 10 year risk for a major osteoporosis-related fracture is 9.3 % and for a hip fracture is 2.3 %. (FRAX version 3.08). RECOMMENDATIONS: General recommendations for prevention of bone loss include: 2166-4544 mg calcium intake per day for adults >50yrs, and no history of renal calculi 800-1000 IU of vitamin D3 per day for adults >50yrs, and no history of renal calculi Weight bearing exercise Discontinue smoking Avoid excessive use of caffeine, soft drinks, and alcoholic beverages. In addition, balance training and fall prevention programs can help reduce the risk of fractures. Pharmacologic treatment recommendations: Initiate pharmacologic treatment in patients with: -Hip or vertebral fracture. -In those with T scores spine by DXA -In postmenopausal women and men age 50 or older with low bone mass (T score between -1.0 and -2.5 [osteopenia]) at the femoral neck, total hip, or lumbar spine by DXA and a 10 year hip fracture probability >/= 3% or a 10 year major osteoporosis-related fracture probability >/= 20% based on the [place]-adapted WHO fracture risk model (FRAX). Current FDA-approved pharmacologic options for osteoporosis treatment include bisphosphonates (Fosamax), ibandronate (Boniva), risedronate (Actonel), zoledronic acid (Reclast), estrogens and other hormonal therapies (Evista), parathyroid hormone (Forteo), and denosumab (Prolia). Initiation of pharmacologic therapy should happen only after thorough medical evaluation, discussion of risks and benefits, and with regular monitoring of the therapeutic regimen. FOLLOW-UP RECOMMENDATIONS: Patients with osteoporosis or or at high risk for fracture should have follow-up bone density tests. For Medicare patients, routine testing is allowed every 2 years. Patients who have low bone mass (T score -2.0 to -2.49), who are currently on treatment for low bone mass, or having risk factors for accelerated bone loss (glucocorticoids, aromatase inhibitors, etc.), consider repeat DXA in 1-2 years. Patients with osteopenia and no risk factors may consider follow-up every 3-5 years. REFERENCES: National Osteoporosis Foundation. Clinician's Guide to Prevention and Treatment of Osteoporosis. Osteoporosis International. Garcia, 2014. DXA Scan Screening, Reporting (FRAX Score) and Follow-up. [employer] Evidence-Based Summaries. [facility] [employer] for Education and Research. 2017 Bone Density Report Report Dictated on --- Final --- Dictating Physician: MD SANTIAGO LAUREN B Signed Date and Time: 01/11/2022 4:03 pm Signed by: MD SANTIAGO LAUREN B Transcribed Date and Time: 01/11/2022 4:05 REBEKAH VERMA RAD Bari Santiago MD - 01/11/2022 Patient Name: ASHLEY GÓMEZ Bone Density ACCESSION EXAM DATE/TIME PROCEDURE ORDERING PROVIDER [id number] 01/11/2022 15:04 EDT OT Bone Density DEXA DO DAVILA PAUL E. Axial Skeleton CPT code 09381 Reason For Exam (OT Bone Density DEXA Axial Skeleton) . Report DXA BONE DENSITOMETRY: CLINICAL INDICATION: Asymptomatic post-menopausal status COMPARISON: None TECHNIQUE: Quantitative bone mineral densitometry of the hip and lumbar spine was performed with a dual energy x-ray observed absorptiometry device - HoloAtreaon W. Regions of interest were obtained through the left proximal femur and compared to the normal value of the young adult. Regions of interest were also obtained through the lumbar vertebrae with an average value determined and compared with the young adult. The measured bone density minus the bone density of the young normal reference divided by the reference standard deviation is expressed as the T score. Using the same formula adjusting the reference density and standard deviation for age and race determines the Z score. According to World Health Organization criteria: T-score of -1.0 or higher is normal. T-score between -1.0 and -2.5 is low bone density or osteopenia. T-score of -2.5 or lower is abnormally low, compatible with osteoporosis. T-score of -2.5 or less plus fragility fracture indicates severe osteoporosis. FINDINGS: Hip: Femoral neck Density: 0.649 g/cm2. T-score: -1.8 Z-score: -0.2 Hip: Total hip Density: 0.650 g/cm2. T-score: -2.4 Z-score: -1.0 Comparison from prior examination: N/A Spine: L1-L4 Density 0.874 g/cm2. T-score: -1.6 Z-score: 0.4 Comparison from prior examination: N/A IMPRESSION: Osteopenia. Bone Density Report FRACTURE RISK: The estimated 10 year risk for a major osteoporosis-related fracture is 9.3 % and for a hip fracture is 2.3 %. (FRAX version 3.08). RECOMMENDATIONS: General recommendations for prevention of bone loss include: 1169-6194 mg calcium intake per day for adults >50yrs, and no history of renal calculi 800-1000 IU of vitamin D3 per day for adults >50yrs, and no history of renal calculi Weight bearing exercise Discontinue smoking Avoid excessive use of caffeine, soft drinks, and alcoholic beverages. In addition, balance training and fall prevention programs can help reduce the risk of fractures. Pharmacologic treatment recommendations: Initiate pharmacologic treatment in patients with: -Hip or vertebral fracture. -In those with T scores lumbar spine by DXA -In postmenopausal women and men age 50 or older with low bone mass (T score between -1.0 and -2.5 [osteopenia]) at the femoral neck, total hip, or lumbar spine by DXA and a 10 year hip fracture probability >/= 3% or a 10 year major osteoporosis-related fracture probability >/= 20% based on the [place]-adapted WHO fracture risk model (FRAX). Current FDA-approved pharmacologic options for osteoporosis treatment include bisphosphonates (Fosamax), ibandronate (Boniva), risedronate (Actonel), zoledronic acid (Reclast), estrogens and other hormonal therapies (Evista), parathyroid hormone (Forteo), and denosumab (Prolia). Initiation of pharmacologic therapy should happen only after thorough medical evaluation, discussion of risks and benefits, and with regular monitoring of the therapeutic regimen. FOLLOW-UP RECOMMENDATIONS: Patients with osteoporosis or or at high risk for fracture should have follow-up bone density tests. For Medicare patients, routine testing is allowed every 2 years. Patients who have low bone mass (T score -2.0 to -2.49), who are currently on treatment for low bone mass, or having risk factors for accelerated bone loss (glucocorticoids, aromatase inhibitors, etc.), consider repeat DXA in 1-2 years. Patients with osteopenia and no risk factors may consider follow-up every 3-5 years. REFERENCES: National Osteoporosis Foundation. Clinician's Guide to Prevention and Treatment of Osteoporosis. Osteoporosis International. Garcia, 2014. DXA Scan Screening, Reporting (FRAX Score) and Follow-up. [employer]ara of Knowledge Evidence-Based Summaries. [facility] [employer] for Education and Research. 2017 Bone Density Report Report Dictated on --- Final --- Dictating Physician: MD SANTIAGO LAUREN B Signed Date and Time: 01/11/2022 4:03 pm Signed by: MD SANTIAGO LAUREN B Transcribed Date and Time: 01/11/2022 4:05 [facility] Work Phone: Radiology Study observation (narrative) [facility] Work Phone: DEXA Bone Density Axial Skel etonOrdered By: Bari Santiago on 01-11-2022 [facility] Work Phone: MG Breast Tomosynthesis Scr Blon 01-11-2022 MG Breast Tomosynthesis Scr Bl Patient Name: ASHLEY GÓMEZ Mammography ACCESSION EXAM DATE/TIME PROCEDURE ORDERING PROVIDER [id number] 01/11/2022 15:01 EDT MG Breast Tomosynthesis DO DAVILA PAUL E. BI Scr CPT code 34250 28582 Reason For Exam (MG Breast Tomosynthesis BI Scr) Screening, Z12.31 Report TIME SINCE LAST MAMMOGRAM: Last mammogram was performed 8 years and 2 months ago. REASON FOR EXAM: screening, asymptomatic. PROCEDURE: MG BREAST TOMOSYNTHESIS BL SCR: JANUARY 11, 2022 - 2D/3D Procedure 3D Bilateral CC and MLO view(s) were taken. 2D Bilateral CC and MLO view(s) were taken. Prior study comparison: November 20, 2013, bilateral screening mammogram performed at [facility]. TISSUE DENSITY: BIRADS B - There are scattered fibroglandular densities. . PATIENT CANCER HISTORY: No Personal History of Cancer FAMILY CANCER HISTORY: Mother Liver Cancer age 78 Sister Stomach Cancer age 77 FINDINGS: No suspicious masses, architectural distortions or suspiciously clustered microcalcifications are identified. There is no evidence of skin thickening or nipple retraction. There are no significant changes when compared with prior studies. No mammographic evidence of malignancy. Markings on images: BB's = Nipples; skin lesions Open upper mattaponi = Palpable Line = Scar 2D digital mammography and tomosynthesis imaging were performed and reviewed with CAD. ASSESSMENT: Category 1 Negative RECOMMENDATION: Routine screening mammogram of both breasts in 1 year. . Report Dictated on Mammography Report Cancer Risk Assessment: This risk assessment is based on patient provided information collected in a risk survey taken at the time of this examination. Lifetime breast cancer risk: Average Risk - If greater than or equal to 20%, consider annual mammogram and annual screening Breast MRI or follow up in high risk clinic. A score of Average Risk indicates a score of less than 20%. Is the patient at elevated risk based on the HBOC criteria? No (Hereditary Breast and Ovarian Cancer) - If yes, consider genetic counseling and testing with high risk follow up. Is the patient at elevated risk based on the Dunn Syndrome criteria? No - If yes, consider genetic counseling and testing with high risk follow up. Final Signed Date and Time: 01/13/2022 11:40 am Signed by: MD PAMELA, BARI [facility] OT Bone Density DEXA Axial S stephanie 01-11-2022 OT Bone Density DEXA Axial Skeleton Patient Name: ASHLEY GÓMEZ Bone Density ACCESSION EXAM DATE/TIME PROCEDURE ORDERING PROVIDER [id number] 01/11/2022 15:04 EDT OT Bone Density DEXA DO DAVILA PAUL E. Axial Skeleton CPT code 91160 Reason For Exam (OT Bone Density DEXA Axial Skeleton) . Report DXA BONE DENSITOMETRY: CLINICAL INDICATION: Asymptomatic post-menopausal status COMPARISON: None TECHNIQUE: Quantitative bone mineral densitometry of the hip and lumbar spine was performed with a dual energy x-ray observed absorptiometry device - Holo[employer]low[employer] Horizon W. Regions of interest were obtained through the left proximal femur and compared to the normal value of the young adult. Regions of interest were also obtained through the lumbar vertebrae with an average value determined and compared with the young adult. The measured bone density minus the bone density of the young normal reference divided by the reference standard deviation is expressed as the T score. Using the same formula adjusting the reference density and standard deviation for age and race determines the Z score. According to World Health Organization criteria: T-score of -1.0 or higher is normal. T-score between -1.0 and -2.5 is low bone density or osteopenia. T-score of -2.5 or lower is abnormally low, compatible with osteoporosis. T-score of -2.5 or less plus fragility fracture indicates severe osteoporosis. FINDINGS: Hip: Femoral neck Density: 0.649 g/cm2. T-score: -1.8 Z-score: -0.2 Hip: Total hip Density: 0.650 g/cm2. T-score: -2.4 Z-score: -1.0 Comparison from prior examination: N/A Spine: L1-L4 Density 0.874 g/cm2. T-score: -1.6 Z-score: 0.4 Comparison from prior examination: N/A IMPRESSION: Osteopenia. Bone Density Report FRACTURE RISK: The estimated 10 year risk for a major osteoporosis-related fracture is 9.3 % and for a hip fracture is 2.3 %. (FRAX version 3.08). RECOMMENDATIONS: General recommendations for prevention of bone loss include: 7167-8535 mg calcium intake per day for adults >50yrs, and no history of renal calculi 800-1000 IU of vitamin D3 per day for adults >50yrs, and no history of renal calculi Weight bearing exercise Discontinue smoking Avoid excessive use of caffeine, soft drinks, and alcoholic beverages. In addition, balance training and fall prevention programs can help reduce the risk of fractures. Pharmacologic treatment recommendations: Initiate pharmacologic treatment in patients with: -Hip or vertebral fracture. -In those with T scores spine by DXA -In postmenopausal women and men age 50 or older with low bone mass (T score between -1.0 and -2.5 [osteopenia]) at the femoral neck, total hip, or lumbar spine by DXA and a 10 year hip fracture probability >/= 3% or a 10 year major osteoporosis-related fracture probability >/= 20% based on the [place]-adapted WHO fracture risk model (FRAX). Current FDA-approved pharmacologic options for osteoporosis treatment include bisphosphonates (Fosamax), ibandronate (Boniva), risedronate (Actonel), zoledronic acid (Reclast), estrogens and other hormonal therapies (Evista), parathyroid hormone (Forteo), and denosumab (Prolia). Initiation of pharmacologic therapy should happen only after thorough medical evaluation, discussion of risks and benefits, and with regular monitoring of the therapeutic regimen. FOLLOW-UP RECOMMENDATIONS: Patients with osteoporosis or or at high risk for fracture should have follow-up bone density tests. For Medicare patients, routine testing is allowed every 2 years. Patients who have low bone mass (T score -2.0 to -2.49), who are currently on treatment for low bone mass, or having risk factors for accelerated bone loss (glucocorticoids, aromatase inhibitors, etc.), consider repeat DXA in 1-2 years. Patients with osteopenia and no risk factors may consider follow-up every 3-5 years. REFERENCES: National Osteoporosis Foundation. Clinician's Guide to Prevention and Treatment of Osteoporosis. Osteoporosis International. Garcia, 2014. DXA Scan Screening, Reporting (FRAX Score) and Follow-up. [employer] Knowledge Evidence-Based Summaries. [facility] [employer] for Education [employer] Research. 2017 Bone Density Report Report Dictated on Final Dictating Physician: MD SANTIAGO LAUREN B Signed Date and Time: 01/11/2022 4:03 pm Signed by: MD SANTIAGO LAUREN B Transcribed Date and Time: 01/11/2022 4:05 [facility] Jacqueline 10-23-2020 [facility] Telephone (GASTTW) ASHLEY GÓMEZ ([id number]) 1955 F Date Time Provider Department 10/23/20 GERMAN RAMIREZ During your visit today, we recorded the following information about you: German Ramirez MD 10/23/2020 12:31 PM Signed This patient was referred to me via my inpatient basket. I do not know what she is being referred for because it did not say. Would you please call her find out what the reason is and give her an appointment when I have one available? Thank you Melida Winchester RN 10/23/2020 1:40 PM Signed Please assist pt with scheduling an office visit with Dr. Ramirez. Dina Álvarez 10/26/2020 1:32 PM Signed Left generic message to call back to schedule with Dr German Ramirez. Uncertain of reason for visit. Please assist in scheduling if patient needs to see GI. Dina Álvarez 10/30/2020 10:46 AM Signed 2nd attempt LEFT MESSAGE TO CALL BACK to schedule with Dr Ramirez, if needs to see GI. Allergies As of Date: 10/23/2020 Noted Allergy Reaction SULFA (SULFONAMIDE ANTIBIOTICS) 12/05/2012 14 - Other: See Comments Comments: pulled eye backward Date Reviewed: 07/29/2018 Reviewed by: Kalie Cisneros - Fully Assessed Reason for Visit: Schedule Evaluation [3873] Prescriptions as of 10/23/2020 Sig: HYDROCODONE 5 MG-ACETAMINOPHE* Take 0.5 tablets by mouth as * BENZONATATE 100 MG CAPSULE Take 1-2 capsules tid prn ESOMEPRAZOLE MAGNESIUM 40 MG * Take 40 mg by mouth. VENLAFAXINE 75 MG TABLET Take 75 mg by mouth once magaly* ATORVASTATIN 10 MG TABLET Take 10 mg by mouth once magaly* [id number] TROPINE-* Take by mouth. Takes 1 to 2 * METOCLOPRAMIDE 10 MG TABLET Take 10 mg by mouth four time* LORAZEPAM 0.5 MG TABLET Take by mouth three times da* OXYCODONE-ACETAMINOPH EN 5 MG-* Take 1 tablet by mouth every * LORAZEPAM 0.5 MG TABLET Take by mouth three times da* METOPROLOL SUCCINATE ER 25 MG* Take 25 mg by mouth once magaly* MUCINEX ORAL Take by mouth. Problem List As Of Date 10/23/2020 Noted Resolved Hematemesis [K92.0] 11/10/2012 Encounter Status:Closed by GERMAN RAMIREZ MD on 10/23/[address] [facility] No Panel Information SARS-CoV-2 & FLU Antigen (Rapid) [facility] Work Phone: Vital Signs Date Time Vital Sign Value Performing Clinician Facility 11-12-2024 09:09-0400 Diastolic blood pressure 80 mm[Hg] Siomara Estrada PA-C Work Phone: [facility] 11-12-2024 09:09-0400 Systolic blood pressure 132 mm[Hg] Siomara Estrada PA-C Work Phone: [facility] 11-12-2024 08:38-0400 Body height 162.6 cm Siomara Estrada PA-C Work Phone: [facility] [place] 11-12-2024 08:38-0400 Body mass index (BMI) [Ratio] 20.6 kg/m2 Siomara Estrada PA-C Work Phone: [facility] [place] 11-12-2024 08:38-0400 Body temperature 97.2 [degF] Siomara Estrada PA-C Work Phone: [facility] [place] 11-12-2024 08:38-0400 Body weight 54.43 kg Siomara Estrada PA-C Work Phone: [facility] [place] 11-12-2024 08:38-0400 Heart rate 83 /min Siomara Estrada PA-C Work Phone: [facility] [place] 11-12-2024 08:38-0400 SaO2% (BldA) [Mass fraction] 90 % Siomara Estrada PA-C Work Phone: [facility] [place] 02-22-2024 12:58-0400 Body height 162.6 cm Gasper Nelson DO Work Phone: [facility] [place] 02-22-2024 12:58-0400 Body mass index (BMI) [Ratio] 21.11 kg/m2 Gasper Nelson DO Work Phone: [facility] [place] 02-22-2024 12:58-0400 Body temperature 97 [degF] Gasper Nelson DO Work Phone: [facility] [place] 02-22-2024 12:58-0400 Body weight 55.79 kg Gasper Nelson DO Work Phone: [facility] 02-22-2024 12:58-0400 Diastolic blood pressure 74 mm[Hg] Gasper Nelson DO Work Phone: [facility] 02-22-2024 12:58-0400 Heart rate 71 /min Gasper Nelson DO Work Phone: [facility] 02-22-2024 12:58-0400 SaO2% (BldA) [Mass fraction] 97 % Gasper Nelson DO Work Phone: [facility] [place] 02-22-2024 12:58-0400 Systolic blood pressure 115 mm[Hg] Gasper Nelson DO Work Phone: [facility] [place] 07-31-2023 15:37-0500 Body height 162.6 cm Gasper Nelson DO Work Phone: [facility] 07-31-2023 15:37-0500 Body mass index (BMI) [Ratio] 20.53 kg/m2 Gasper Nelson DO Work Phone: [facility] [place] 07-31-2023 15:37-0500 Body temperature 97.81 [degF] Gasper Nelson DO Work Phone: [facility] 07-31-2023 15:37-0500 Body weight 54.25 kg Gasper Nelson DO Work Phone: [facility] [facility] [place] 07-31-2023 15:37-0500 Diastolic blood pressure 78 mm[Hg] Gasper Nelson DO Work Phone: [facility] [place] 07-31-2023 15:37-0500 Heart rate 80 /min Gasper Nelson DO Work Phone: [facility] 07-31-2023 15:37-0500 SaO2% (BldA) [Mass fraction] 94 % Gasper Nelson DO Work Phone: [facility] 07-31-2023 15:37-0500 Systolic blood pressure 138 mm[Hg] Gasper Nelson DO Work Phone: [facility] 01-13-2023 09:24-0400 Body height 162.6 cm Gasper Nelson DO Work Phone: [facility] 01-13-2023 09:24-0400 Body mass index (BMI) [Ratio] 19.74 kg/m2 Gasper Nelson DO Work Phone: [facility] [place] 01-13-2023 09:24-0400 Body temperature 97.5 [degF] Gasper Nelson DO Work Phone: [facility] 01-13-2023 09:24-0400 Body weight 52.16 kg Gasper Nelson DO Work Phone: [facility] 01-13-2023 09:24-0400 Diastolic blood pressure 73 mm[Hg] Gasper Nelson DO Work Phone: [facility] 01-13-2023 09:24-0400 Heart rate 89 /min Gasper Nelson DO Work Phone: [facility] 01-13-2023 09:24-0400 SaO2% (BldA) [Mass fraction] 99 % Gasper Nelson DO Work Phone: [facility] 01-13-2023 09:24-0400 Systolic blood pressure 118 mm[Hg] Gasper Nelson DO Work Phone: [facility] 11-14-2022 11:49-0400 Body height 162.6 cm Siomara Estrada PA-C Work Phone: [facility] 11-14-2022 11:49-0400 Body mass index (BMI) [Ratio] 20.6 kg/m2 Siomara Estrada PA-C Work Phone: [facility] 11-14-2022 11:49-0400 Body temperature 98.01 [degF] Siomara Estrada PA-C Work Phone: [facility] 11-14-2022 11:49-0400 Body weight 54.43 kg Siomara Estrada PA-C Work Phone: [facility] 11-14-2022 11:49-0400 Diastolic blood pressure 80 mm[Hg] Siomara Estrada PA-C Work Phone: [facility] 11-14-2022 11:49-0400 Heart rate 82 /min Siomara Estrada PA-C Work Phone: [facility] 11-14-2022 11:49-0400 SaO2% (BldA) [Mass fraction] 95 % Siomara Estrada PA-C Work Phone: [facility] 11-14-2022 11:49-0400 Systolic blood pressure 138 mm[Hg] Siomara Estrada PA-C Work Phone: [facility] 10-03-2022 08:39-0500 Body height 162.6 cm Danish Monteso DO Work Phone: [facility] 10-03-2022 08:39-0500 Body mass index (BMI) [Ratio] 20.63 kg/m2 Danish Monteso DO Work Phone: [facility] 10-03-2022 08:39-0500 Body temperature 97.11 [degF] Danish Monteso DO Work Phone: [facility] 10-03-2022 08:39-0500 Body weight 54.52 kg Danish Monteso DO Work Phone: [employer] [place] 10-03-2022 08:39-0500 Diastolic blood pressure 63 mm[Hg] Danish Jyotio DO Work Phone: [facility] 10-03-2022 08:39-0500 Heart rate 74 /min Danish Jyotio DO Work Phone: [facility] 10-03-2022 08:39-0500 SaO2% (BldA) [Mass fraction] 93 % Danish Davila DO Work Phone: [facility] 10-03-2022 08:39-0500 Systolic blood pressure 118 mm[Hg] Danish Davila DO Work Phone: [facility] 01-31-2022 09:50-0400 Body temperature 99.4 [degF] [facility] Work Phone: 01-31-2022 09:50-0400 Diastolic blood pressure 97 mm[Hg] [facility] Work Phone: 01-31-2022 09:50-0400 Heart rate 100 /min [facility] Work Phone: 01-31-2022 09:50-0400 Respiratory rate 18 /min [facility] Work Phone: 01-31-2022 09:50-0400 SaO2% (BldA) [Mass fraction] 96 % [facility] Work Phone: 01-31-2022 09:50-0400 Systolic blood pressure 116 mm[Hg] [facility] Work Phone: 01-31-2022 09:20-0400 Body height 160.02 cm [facility] Work Phone: 01-31-2022 09:20-0400 Body mass index (BMI) [Ratio] 21.2 kg/m2 [facility] Work Phone: 01-31-2022 09:20-0400 Body weight 54.43 kg [facility] Work Phone: Encounters Encounter Date Encounter Type Care Provider Facility Start: 02-10-2025 End: 02-10-2025 Orders Only Gasper Nelson DO Work Phone: [facility] Comment on above: Chronic obstructive pulmonary disease with acute exacerbation (HCC) Release of Informati on Other insomnia Start: 02-09-2025 End: 02-10-2025 Refill Siomara Estrada PA-C Work Phone: [facility] Comment on above: Chronic obstructive pulmonary disease with acute exacerbation (HCC) Start: 12-13-2024 End: 12-13-2024 Refill Gasper Serrano Argentina DO Work Phone: [facility] Start: 11-20-2024 End: 12-02-2024 Refill Gasper Serrano Argentina DO Work Phone: [facility] Comment on above: Other insomnia Start: 11-12-2024 End: 11-12-2024 Assay of hemosiderin, quant Siomara Estrada PA-C Work Phone: [facility] Work Phone: Start: 11-12-2024 End: 11-12-2024 Patient encounter procedure Siomara Estrada PA-C Work Phone: [facility] Comment on above: Routine general medi olga lidia examination at health care facility (Primary Dx); Encounter for screening mammogram for malignant neoplasm of breast; Hypercholesterolemia; Chronic obstructive pulmonary disease with acute exacerbation (HCC); Gastroesophageal reflux disease without esophagitis Start: 11-12-2024 End: 11-12-2024 ambulatory [facility] Start: 11-12-2024 End: 11-12-2024 Encounter for general adult medical examination without abnormal findings [facility] Start: 10-31-2024 End: 10-31-2024 Patient encounter procedure [facility] Start: 10-31-2024 End: 10-31-[address] [facility] Start: 10-31-2024 End: 10-31-2024 Office outpatient visit 15 minutes Gasper Nelson DO Work Phone: [facility] Comment on above: Chronic obstructive pulmonary disease with acute exacerbation (HCC) (Primary Dx); Influenza Start: 09-28-2024 End: 09-30-2024 Refill Gasper Serrano Argentina DO Work Phone: [facility] Start: 09-14-2024 End: 09-16-2024 Refill Gasper Nelson DO Work Phone: [facility] Start: 07-29-2024 End: 07-29-2024 ambulatory GASPER NELSON [facility] Start: 07-29-2024 End: 07-29-2024 Subsequent hospital visit by physician Gasper Maggie Nelson DO Work Phone: [facility] Comment on above: Abnormal CT scan of lung; Smoker Start: 07-24-2024 End: 07-24-2024 Refill Gasper Nelson DO Work Phone: [facility] Start: 06-28-2024 End: 07-01-2024 Telephone encounter [facility] Start: 06-11-2024 End: 06-11-2024 Refill Gasper Nelson DO Work Phone: [facility] Start: 04-29-2024 End: 04-29-2024 ambulatory [facility] Facility:[facility] Start: 04-23-2024 End: 06-20-2024 Telephone encounter [facility] Comment on above: Care Coordination (L aldair Screening Follow up reminder - certified letter sent ) Start: 04-17-2024 End: 04-17-2024 Refill Gasper Nelson DO Work Phone: [facility] Start: 04-11-2024 End: 04-11-2024 Telephone encounter Gasper Nelson DO Work Phone: [facility] Comment on above: Other (Scheduling at [facility]) Start: 03-20-2024 ambulatory [facility] Facility: [facility] Start: 02-22-2024 End: 02-22-2024 Telephone encounter Gasper Nelson DO Work Phone: [facility] Comment on above: Referral (Dr Weiss) Start: 02-22-2024 End: 02-22-2024 Office outpatient visit 25 minutes Gasper Nelson DO Work Phone: [facility] Comment on above: Chronic obstructive pulmonary disease, unspecified COPD type (HCC) (Primary Dx); Abnormal CT scan of lung; Hypercholesterolemia; Colon cancer screening; Breast cancer screening by mammogram; Depression, unspecified depression type; Gastroesophageal reflux disease without esophagitis; Ex-smoker for less than 1 year Start: 02-22-2024 End: 02-22-2024 ambulatory [facility] Start: 02-05-2024 Telephone encounter Gasper Maggie Yair etrilla DO Work Phone: [facility] Comment on above: Results Start: 01-02-2024 Refill Gasper Serrano Puneet cama DO Work Phone: [facility] Start: 01-01-2024 Orders Only Gasper cama DO Work Phone: [facility] Start: 12-24-2023 Orders Only Gasper Serrano Puneet cama DO Work Phone: [facility] Start: 12-22-2023 Telephone encounter Gasper Maggie Yair etrilla DO Work Phone: [facility] Comment on above: Appointment ([facility]) Start: 12-21-2023 Orders Only Gasper Serrano Puneet cama DO Work Phone: [facility] Comment on above: COPD with acute exac erbation (HCC); Lower resp. tract infection Start: 12-18-2023 End: 12-18-2023 Subsequent hospital visit by physician Gasper Nelson DO Work Phone: [facility] Comment on above: Smoker; Moderate smoker (20 or less per day) Start: 12-17-2023 Refill Gasper Maggie Puneet lla DO Work Phone: [facility] Start: 08-01-2023 Telephone encounter Gasper Mazariegos etrilla DO Work Phone: [facility] Comment on above: Orders (LDCT due in November 2023) Start: 07-31-2023 End: 07-31-2023 Office outpatient visit 15 minutes Gasper Serrano Puneetsam DO Work Phone: [facility] Comment on above: Chronic obstructive pulmonary disease, unspecified COPD type (HCC) (Primary Dx); Depression, unspecified depression type; Gastroesophageal reflux disease without esophagitis; Hypercholesterolemia Start: 03-14-2023 Telephone encounter Gasper byrnes DO Work Phone: [facility] Comment on above: Handicap Placard Start: 02-27-2023 Telephone encounter Gasper Mazariegos etgretchen DO Work Phone: [facility] Comment on above: Scheduling Start: 01-15-2023 Orders Only Gasper vargas DO Work Phone: [facility] Start: 01-13-2023 Telephone encounter Gasper byrnes DO Work Phone: [facility] Comment on above: Orders (LDCT) Start: 01-13-2023 End: 01-13-2023 Office outpatient visit 25 minutes Gasper Nelson DO Work Phone: [facility] Comment on above: Chronic obstructive pulmonary disease, unspecified COPD type (HCC) (Primary Dx); Hypercholesterolemia; Gastroesophageal reflux disease without esophagitis; Smoker; Depression, unspecified depression type Start: 11-14-2022 ambulatory [facility] Start: 11-14-2022 Patient encounter procedure [facility] Start: 11-14-2022 End: 11-14-2022 Office outpatient visit 25 minutes Siomara Estrada PA-C Work Phone: [facility] [facility] Comment on above: COPD with acute exac erbation (CMS/HCC) (HCC) (Primary Dx); Lower resp. tract infection; Smoking Start: 10-24-2022 End: 10-24-2022 ambulatory [facility] Work Phone: Start: 10-24-2022 End: 10-24-2022 Patient encounter procedure [facility] Start: 10-20-2022 Telephone encounter Danish berumen DO Work Phone: [facility] Comment on above: Orders Start: 10-17-2022 Telephone encounter Danish berumen DO Work Phone: [facility] Comment on above: Orders (Fax 10/03/22 XR Chest SULAIMAN, Pt at [facility]) Start: 10-04-2022 Telephone encounter Danish berumen DO Work Phone: [facility] Comment on above: Advice Only (cough) Start: 10-03-2022 End: 10-03-2022 Patient encounter procedure Danish Davila DO Work Phone: [facility] Comment on above: Medicare annual well ness visit, subsequent (Primary Dx); Cough, unspecified type; Chronic obstructive pulmonary disease, unspecified COPD type (HCC); Anxiety; Depression, unspecified depression type; Hypercholesterolemia; Mammogram declined; Colonoscopy refused Start: 04-22-2022 End: 04-22-2022 ambulatory [facility] Work Phone: Start: 04-22-2022 End: 04-22-2022 Patient encounter procedure [facility] Start: 01-31-2022 End: 01-31-2022 Emergency department patient visit [facility] Start: 01-11-2022 End: 01-11-2022 Subsequent hospital visit by physician Danish Davila DO Work Phone: [facility] Comment on above: Menopause Start: 01-10-2022 End: 01-10-2022 Patient encounter procedure [facility] Procedures Date Procedure Procedure Detail Performing Clinician Start: 04-29-2024 Colonoscopy Gasper godinez DO Work Phone: Start: 12-18-2023 Lipid 1996 panel - S anabel or Plasma Gasper Nelson DO Work Phone: Start: 01-13-2023 Lipid 1996 panel - S anabel or Plasma Gasper Nelson DO Work Phone: Start: 10-24-2022 Plain chest X-ray Start: 10-03-2022 Adult depression scr eening assessment Gasper Nelson DO Work Phone: Start: 04-22-2022 End: 04-22-2022 Plain X-ray of shoulder Start: 01-31-2022 SARS-CoV-2 & FLU Ant igen (Rapid) Start: 01-31-2022 Plain chest X-ray Start: 01-11-2022 Dxa bone density miriam dy 1/> sites axial skel Danish Montesbruno DO Work Phone: Start: 01-11-2022 Mammography Jolanta Six R N Start: 01-10-2022 Plain chest X-ray Start: 06-04-2021 Lipid 1996 panel - S anabel or Plasma Danish Montesbruno DO Work Phone: SARS-CoV-2 & FLU Ant igen (Rapid) Plan of Treatment Date Care Activity Detail Author Start: 04-29-2034 Screening for malignant neoplasm of colon [facility] Start: 12-17-2028 Lipid panel Lipid Panel [facility] Start: 01-14-2028 Lipid panel Lipid Panel [facility] Start: 06-04-2026 Lipid panel Lipid Panel [facility] Start: 11-12-2025 COVID-19 Vaccine ( season) COVID-19 Vaccine ( season) [facility] Comment on above: Postponed from 05/05/2024 (Patient Refus ed) Start: 11-12-2025 RSV Immunization for Adults (1 - Risk 60-74 years 1-dose series) RSV Immunization for Adults (1 - Risk 60-74 years 1-dose series) [facility] Comment on above: Postponed from 2014 (Patient Refus ed) Start: 05-15-2025 Depression Monitoring Depression Monitoring [facility] Start: 05-12-2025 End: 05-12-2025 Patient encounter procedure [facility] Primary [facility] Start: 05-05-2025 Influenza vaccination Influenza Vaccine (Season Ended) [facility] Start: 03-03-2025 Influenza vaccination Influenza Vaccine (#1) [facility] Comment on above: Postponed from 05/05/2024 (Patient Refus ed) Start: 11-12-2024 End: 11-12-2025 CBC W Auto Differential panel - Blood CBC auto differential Lab Routine Routine general medical examination at [facility] Hypercholesterolemia Expected: 11/12/2024 (Approximate), Expires: 11/12/2025 [facility] Comment on above: Expected: 11/12/2024 (Approximate), Expi res: 11/12/2025 Start: 11-12-2024 End: 11-12-2025 Comprehensive metabolic 1998 panel - Serum or Plasma Comprehensive metabolic panel Lab Routine Routine general medical examination at [facility] Hypercholesterolemia Expected: 11/12/2024 (Approximate), Expires: 11/12/2025 [facility] Comment on above: Expected: 11/12/2024 (Approximate), Expi res: 11/12/2025 Start: 11-12-2024 End: 01-12-2026 DBT Breast - bilateral screening Bilateral screening mammogram with tomosynthesis Imaging Routine Encounter for screening mammogram for malignant neoplasm of breast Expected: 11/12/2024, Expires: 01/12/2026 [facility] [employer] [facility] Work Phone: Comment on above: Expected: 11/12/2024, Expires: Start: 11-12-2024 End: 11-12-2025 Lipid 1996 panel - Serum or Plasma Lipid panel Lab Routine Hypercholesterolemia Expected: 11/12/2024 (Approximate), Expires: 11/12/2025 [facility] Comment on above: Expected: 11/12/2024 (Approximate), Expi res: 11/12/2025 Start: 11-12-2024 End: 11-12-2024 Patient encounter procedure [facility] [place] Start: 09-30-2024 End: 09-30-2024 Patient encounter procedure 09/30/2024 4:00 PM EST Office Visit [facility] [place] [address] [place] [address] Gasper Nelson DO [address] [place] [address] [facility] [place] Start: 09-04-2024 Medicare Advantage Annual Wellness Visit Medicare [facility] Annual Wellness Visit [facility] Start: 08-21-2024 End: 08-21-2024 Patient encounter procedure [facility] Start: 07-29-2024 End: 07-29-2024 Patient encounter procedure 07/29/2024 11:[address] [facility] [address] [place] [address] Gasper Nelson, DO [address] [place] [address] [facility] Start: 07-29-2024 Subsequent hospital visit by physician 07/29/2024 11:30 AM EST Hospital Encounter [facility] [address] [place] [address] Gasper Nelson, DO [address] [place] [address] [facility] Start: 05-05-2024 COVID-19 Vaccine ( season) COVID-19 Vaccine ( season) [facility] Start: 05-05-2024 COVID-19 Vaccine ( season) COVID-19 Vaccine ( season) [facility] Start: 05-05-2024 Influenza vaccination [facility] Start: 04-29-2024 End: 04-29-2024 Patient encounter procedure 04/29/2024 4:00 PM EDT Office Visit [facility] Medicine [address] [place] [address] Gasper Nelson, DO [address] [place] [address] [facility] Start: 06-22-2024 Screening for malignant neoplasm of colon [facility] Start: 02-22-2024 End: 02-21-2025 CBC W Auto Differential panel - Blood CBC auto differential Lab Routine Chronic obstructive pulmonary disease, unspecified COPD type (HCC) Expected: 02/22/2024 (Approximate), Expires: 02/21/2025 [employer] Comment on above: Expected: 02/22/2024 (Approximate), Expi res: 02/21/2025 Start: 02-22-2024 End: 02-21-2025 Complete PFT pre and post bronchodilator Complete PFT pre and post bronchodilator PFT Routine Chronic obstructive pulmonary disease, unspecified COPD type (HCC) Expected: 02/22/2024 (Approximate), Expires: 02/21/2025 [employer] Comment on above: Expected: 02/22/2024 (Approximate), Expi res: 02/21/2025 Start: 02-22-2024 End: 02-21-2025 Comprehensive metabolic 1998 panel - Serum or Plasma Comprehensive metabolic panel Lab Routine Chronic obstructive pulmonary disease, unspecified COPD type (HCC) Expected: 02/22/2024 (Approximate), Expires: 02/21/2025 [employer] Comment on above: Expected: 02/22/2024 (Approximate), Expi res: 02/21/2025 Start: 02-22-2024 End: 02-21-2025 CT Chest for screening WO contrast CT lung screening follow up low dose Imaging Routine Abnormal CT scan of lung Smoker Expected: 02/22/2024, Expires: 02/21/2025 [employer] Work Phone: Comment on above: Expected: 02/22/2024, Expires: Start: 02-22-2024 End: 04-23-2025 DBT Breast - bilateral screening Bilateral screening mammogram with tomosynthesis Imaging Routine Breast cancer screening by mammogram Expected: 02/22/2024, Expires: 04/23/2025 [employer] Work Phone: Comment on above: Expected: 02/22/2024, Expires: Start: 02-22-2024 End: 02-22-2024 Patient encounter procedure 02/22/2024 1:00 PM EDT Office Visit [facility] [address] [place] [address] Gasper Nelson, [address] [place] [address] [facility] Start: 02-14-2024 Screening for malignant neoplasm of colon [facility] Start: 02-05-2024 End: 02-05-2024 Patient encounter procedure 02/05/2024 9:00 AM EDT Office Visit [facility] Medicine [address] [place] [address] Gasper Nelson, [address] [place] [address] [facility] Start: 01-22-2024 End: 01-22-2024 Patient encounter procedure 01/22/2024 10:00 AM EDT Office Visit [facility] [address] [place] [address] Gasper Nelson, [address] [place] [address] [facility] Start: 11-02-2023 Medicare Advantage Annual Wellness Visit (AWV) Medicare Advantage Annual Wellness Visit (AWV) [facility] Start: 10-03-2023 Depression Screening Depression Screening [facility] Start: 09-04-2023 Medicare Advantage Annual Wellness Visit Medicare Advantage Annual Wellness Visit [facility] Start: 08-01-2023 End: 08-01-2024 CT Chest for screening WO contrast CT lung screening low dose Imaging Routine Smoker Moderate smoker (20 or less per day) Expected: 08/01/2023, Expires: 08/01/2024 [facility] [facility] Work Phone: Comment on above: Expected: 08/01/2023, Expires: Start: 07-31-2023 End: 07-31-2024 Lipid 1996 panel - Serum or Plasma Lipid panel Lab Routine Hypercholesterolemia Expected: 07/31/2023 (Approximate), Expires: 07/31/2024 [facility] [employer] Work Phone: Comment on above: Expected: 07/31/2023 (Approximate), Expi res: 07/31/2024 Start: 07-14-2023 End: 07-14-2023 Patient encounter procedure [facility] Start: 05-05-2023 COVID-19 Vaccine () COVID-19 Vaccine () [facility] Start: 05-05-2023 Influenza vaccination Influenza Vaccine (#1) [facility] Start: 04-03-2023 End: 04-03-2023 Patient encounter procedure 04/03/2023 1:[address] [facility] [address] [place] [address] Gasper Nelson, DO [address] [place] [address] [facility] [address] Start: 04-02-2023 Depression Monitoring Depression Monitoring [facility] Start: 01-23-2023 End: 01-23-2023 Patient encounter procedure 01/23/2023 Office Visit Family Medicine Kelsie Lisa, [employer] [address] [place], [place] [id number] [facility] Start: 01-13-2023 End: 01-14-2024 CBC W Auto Differential panel - Blood CBC auto differential Lab Routine Smoker Expected: 01/13/2023 (Approximate), Expires: 01/14/2024 [facility] [employer] Work Phone: Comment on above: Expected: 01/13/2023 (Approximate), Expi res: 01/14/2024 Start: 01-13-2023 End: 01-14-2024 Comprehensive metabolic 1998 panel - Serum or Plasma Comprehensive metabolic panel Lab Routine Hypercholesterolemia Expected: 01/13/2023 (Approximate), Expires: 01/14/2024 [facility] Comment on above: Expected: 01/13/2023 (Approximate), Expi res: 01/14/2024 Start: 01-13-2023 End: 01-14-2024 CT Chest for screening WO contrast CT lung screening low dose Imaging Routine Smoker Expected: 01/13/2023, Expires: 01/14/2024 [facility] Work Phone: Comment on above: Expected: 01/13/2023, Expires: Start: 01-13-2023 End: 01-14-2024 Lipid 1996 panel - Serum or Plasma Lipid panel Lab Routine Hypercholesterolemia Expected: 01/13/2023 (Approximate), Expires: 01/14/2024 [facility] Comment on above: Expected: 01/13/2023 (Approximate), Expi res: 01/14/2024 Start: 01-13-2023 End: 01-14-2024 Thyrotropin [Units/volume] in Serum or Plasma TSH Lab Routine Hypercholesterolemia Expected: 01/13/2023 (Approximate), Expires: 01/14/2024 [facility] Comment on above: Expected: 01/13/2023 (Approximate), Expi res: 01/14/2024 Start: 01-11-2023 Screening for malignant neoplasm of breast Mammogram [facility] Start: 01-05-2023 Annual Wellness Visit (AWV) Annual Wellness Visit (AWV) [facility] Start: 12-24-2022 Depression Monitoring Depression Monitoring [facility] Start: 10-18-2022 End: 10-18-2023 Alanine aminotransferase [Enzymatic activity/volume] in Serum or Plasma ALT Lab Routine Hypercholesterolemia Expected: 10/18/2022 (Approximate), Expires: 10/18/2023 [facility] Comment on above: Expected: 10/18/2022 (Approximate), Expi res: 10/18/2023 Start: 10-18-2022 End: 10-18-2023 Aspartate aminotransferase [Enzymatic activity/volume] in Serum or Plasma AST Lab Routine Hypercholesterolemia Expected: 10/18/2022 (Approximate), Expires: 10/18/2023 [facility] Comment on above: Expected: 10/18/2022 (Approximate), Expi res: 10/18/2023 Start: 10-18-2022 End: 10-18-2023 Lipid 1996 panel - Serum or Plasma Lipid panel Lab Routine Hypercholesterolemia Expected: 10/18/2022 (Approximate), Expires: 10/18/2023 [facility] Comment on above: Expected: 10/18/2022 (Approximate), Expi res: 10/18/2023 Start: 10-03-2022 End: 10-03-2023 XR Chest 2 Views XR chest 2 views Imaging Routine Cough, unspecified type Expected: 10/03/2022, Expires: 10/03/2023 [facility] Work Phone: Comment on above: Expected: 10/03/2022, Expires: Start: 06-04-2022 Lipid panel Lipids [facility] Start: 04-18-2022 End: 04-18-2022 Patient encounter procedure 04/18/2022 Office Visit Family Medicine Danish Davila, DO [address] [place] [address] [facility] Start: 02-03-2022 Pneumococcal 65+ years Vaccine (2 - PCV) Pneumococcal 65+ years Vaccine (2 - PCV) [facility] Start: 02-03-2022 Pneumococcal Vaccine: 65+ Years (2 - PCV) Pneumococcal Vaccine: 65+ Years (2 - PCV) [facility] Start: 01-31-2022 [facility] Work Phone: Start: 2014 RSV Immunization aged 60 or older (1 - 1-dose 60+ series) RSV Immunization aged 60 or older (1 - 1-dose 60+ series) [facility] Start: 2014 RSV Immunization for Adults (1 - Risk 60-74 years 1-dose series) RSV Immunization for Adults (1 - Risk 60-74 years 1-dose series) [facility] Start: 2009 Screening for osteoporosis DEXA (modify frequency per FRAX score) [facility] Start: 2004 Screening for malignant neoplasm of breast Breast cancer screen [facility] Start: 2004 Shingles vaccine (1 of 2) Shingles vaccine (1 of 2) [facility] Start: 2004 Zoster Vaccines (1 of 2) Zoster Vaccines (1 of 2) [facility] Start: 1999 Screening for malignant neoplasm of colon [facility] Start: 1973 DTaP/Tdap/Td vaccine (1 - Tdap) DTaP/Tdap/Td vaccine (1 - Tdap) [facility] Start: 1973 DTaP/Tdap/Td Vaccines (1 - Tdap) DTaP/Tdap/Td Vaccines (1 - Tdap) [facility] Start: 1972 Hepatitis C screening [facility] Start: 1954 Hepatitis B Vaccines (1 of 3 - 3-dose series) Hepatitis B Vaccines (1 of 3 - 3-dose series) [facility] Start: 1954 Screening for malignant neoplasm of colon [facility] End: 12-18-2023 CT Chest for screening WO contrast [facility] Work Phone: Comment on above: Once for 1 Occurrences starting 12/18/19 until 12/18/2023 End: 07-29-2024 CT Chest for screening [facility] Work Phone: Comment on above: Once for 1 Occurrences starting 07/29/20 until 07/29/2024 OUTSIDE PROCEDURE SCAN OUTSIDE P ROCEDURE SCAN Procedures Ordered: 12/15/2023 [facility] Comment on above: Ordered: 12/15/2023 Patient Education ED Pneumonia (Adult) [facility] Work Phone: Patient referral [facility] Work Phone: End: 01-11-2022 Screening digital breast tomosynthesis [facility] Work Phone: Comment on above: Once for 1 Occurrences starting 01/12/20 until 01/11/2022 Immunizations Immunization Date Immunization Notes Care Provider Fa vielka 01-13-2023 Pneumococcal Conjuga te PCV20, Pf (Prevnar 20) Gasper Nelson DO Work Phone: [facility] 05-26-2022 Covid-19, Pfizer Bivalent Booster, (Age 12y+), Im, 30 Mcg/0e Gasper Nelson DO Work Phone: [facility] 05-26-2022 Influenza, High-dose Seasonal, Quadrivalent, Preservative Free Gasper Nelson DO Work Phone: [facility] 05-26-2022 influenza virus vacc ine, unspecified formulation Gasper Nelson DO Work Phone: [facility] 12-11-2021 Covid-19, Pfizer Gra y Top, Do Not Dilute, (Age 12 Y+), Im, L Jolanta Glover RN [facility] 06-28-2021 Pfizer SARS-CoV-2 Vaccination Jolanta Glover RN [facility] 06-04-2021 Influenza, High-dose , Quadv, 65 yrs +, IM (Fluzone) Danish Davila DO Work Phone: [facility] Work Phone: 02-03-2021 pneumococcal polysaccharide vaccine, 23 valent Danish Kamleshvasile DO Work Phone: [facility] Work Phone: 10-14-2020 COVID-19, Pfizer Pur ple top, DILUTE for use, 12+ yrs, 30mcg/0.3mL dose Danish Carmonasachavasile DO Work Phone: [facility] Work Phone: 09-23-2020 COVID-19, Pfizer Pur ple top, DILUTE for use, 12+ yrs, 30mcg/0.3mL dose Danish Davila DO Work Phone: [facility] 09-25-2013 hepatitis B vaccine, pediatric or pediatric/adolescent dosage [facility] 05-05-2013 Influenza virus vaccine [facility] 05-05-2013 influenza, seasonal, injectable Gasper Nelson DO Work Phone: [facility] 09-04-2009 Pneumococcal Vaccine [facility] Work Phone: 09-04-2009 pneumococcal vaccine , unspecified formulation [facility] 07-14-2009 novel influenza-H1N1 -09, preservative-free, injectable Gasper Nelson DO Work Phone: [facility] 11-28-2008 hepatitis B vaccine, pediatric or pediatric/adolescent dosage Gasper Nelson DO Work Phone: [facility] 06-02-2008 hepatitis B vaccine, pediatric or pediatric/adolescent dosage Gasper Nelson DO Work Phone: [facility] 05-02-2008 hepatitis B vaccine, pediatric or pediatric/adolescent dosage Gasper Nelson DO Work Phone: [facility] Payers Date Payer Category Payer Self-pay [id number] 2019 Medicare [employer] ADVANTAGE HUMAN MEDICARE [id number] 2019-Present [address] [address] [place] [address] Medicare HMO [id number] 2019 Medicare HMO [employer] MEDICARE [id number] 2019 Medicare [id number] 2 Unknown [id number] 2 Unknown [id number] Social History Date Type Detail Facility Start: 09-24-2019 End: 02-22-2024 Tobacco smoking status NHIS Smokes tobacco daily [facility] Work Phone: Start: 09-24-2019 History of tobacco use Cigarette Smo ker [facility] Work Phone: Start: 03-24-2020 End: 11-12-2024 Cigarettes smoked current (pack per day) - Reported 1 [email or web address] Phone: Start: 03-24-2020 End: 02-22-2024 Tobacco use and exposure Smokeless tobacco non-user [employer] Work Phone: Start: 12-24-2021 End: 02-10-2025 Alcohol intake Ex-drinker (finding) [email or web address] Phone: Start: 05-06-2021 End: 01-04-2022 History SDOH Alcohol Frequency 1 [email or web address] Phone: Start: 03-24-2020 History SDOH Social Connections Phone 2 [email or web address] Phone: Start: 03-24-2020 History SDOH Social Connections Mandaeism 3 [email or web address] Phone: Start: 03-24-2020 History SDOH Social Connections Living 4 [email or web address] Phone: Start: 01-04-2022 History SDOH Physica l Activity DPW 0 [email or web address] Phone: Start: 1955 Sex Assigned At Female S [place] Start: 07-19-2015 End: 01-31-2022 Tobacco smoking status NHIS Unknown if ever smoked [facility] Start: 05-23-2014 None [place] [facility] Start: 05-07-2021 Homeless [facility] Start: 05-07-2021 [facility]smoker [facility] Start: 11-04-2022 End: 01-13-2023 Exposure to SARS-CoV-2 (event) Not sure [facility] Start: 01-13-2023 End: 11-12-2024 Tobacco use panel [facility] Start: 06-23-2022 Gender identity Identifies as female gender (finding) [facility] Start: 06-23-2022 Sexual orientation Heterosexual (homar you) [facility] Start: 04-04-2022 Sex Female (finding) [facility] How often do you nee d to have someone help you when you read instructions, pamphlets, or other written material from your doctor or pharmacy [SILS] Never [facility] Has the [employer], [employer], [employer], or water [employer] threatened to shut off services in your home in past 12Mo No [facility] Are you now , , , , never or living with a partner? [facility] How often to you hav e a drink containing alcohol? Never [facility] Do you feel stress - tense, restless, nervous, or anxious, or unable to sleep at night because your mind is troubled all the time - these days [OSQ] Not at all [facility] (I/We) worried wheth er (my/our) food would run out before (I/we) got money to buy more. Never true [facility] Clinical Notes 10-03-2022 to 02-11-2025 Telephone Encounter - Mia Alvarez MA - 02/11/2025 9:02 AM EDTTelephone Encounter - Mia Alvarez MA - 02/11/2025 9:02 AM EDTAddendum Note - Juju Patton MA - 02/10/2025 3:52 PM EDT Note Date & Type Note Facility 02-11-2025 Telephone encounter Note Patient advised and voiced understanding. [facility] 02-11-2025 Miscellaneous Notes Patient advised and voiced understanding. Called patient to relay provider message left voicemail to call office back. Mychart message sent to patient. Please relay message to patient. Addended by: JUJU PATTON on: 02/10/2025 03:52 PM Modules accepted: Orders Message released to patient as written. Patient's further questions if applicable: Were all questions from office addressed or relayed to the patient from encounter: Yes. I released the following to the doctor: Antibiotic, and prednisone prescribed to her local pharmacy. I would take the prednisone 5 days due to her emphysema She asked about her trazodone being called in as well. She said she takes 1 1/2 nightly. She needs a new script sent in. Please advise documented in this encounter [facility] 02-10-2025 Telephone encounter Note Called patient to relay provider message left voicemail to call office back. Mychart message sent to patient. Please relay message to patient. [facility] 02-10-2025 Miscellaneous Notes Called patient to relay provider message left voicemail to call office back. Mychart message sent to patient. Please relay message to patient. Addended by: JUJU PATTON on: 02/10/2025 03:52 PM Modules accepted: Orders Message released to patient as written. Patient's further questions if applicable: Were all questions from office addressed or relayed to the patient from encounter: Yes. I released the following to the doctor: Antibiotic, and prednisone prescribed to her local pharmacy. I would take the prednisone 5 days due to her emphysema She asked about her trazodone being called in as well. She said she takes 1 1/2 nightly. She needs a new script sent in. Please advise documented in this encounter [facility] 02-10-2025 Note Addended by: Ki PATTON on: 02/10/2025 03:52 PM Modules accepted: Orders [facility] 02-10-2025 Note Addended by: Ki PATTON on: 02/10/2025 03:52 PM Modules accepted: Orders [facility] 02-10-2025 Note Addended by: Ki PATTON on: 02/10/2025 03:52 PM Modules accepted: Orders [facility] 02-10-2025 Note Addended by: Ki PATTON on: 02/10/2025 03:52 PM Modules accepted: Orders [facility] 02-10-2025 Note Addended by: Ki PATTON on: 02/10/2025 03:52 PM Modules accepted: Orders [facility] 02-10-2025 Telephone encounter Note Message released to patient as written. Patient's further questions if applicable: Were all questions from office addressed or relayed to the patient from encounter: Yes. I released the following to the doctor: Antibiotic, and prednisone prescribed to her local pharmacy. I would take the prednisone 5 days due to her emphysema She asked about her trazodone being called in as well. She said she takes 1 1/2 nightly. She needs a new script sent in. Please advise [facility] 02-10-2025 Telephone encounter Note Recent Visits Date Type Provider Dept 11/12/24 Office Visit Siomara Estrada PA-C [facility] 02/22/24 Office Visit Gasper Serrano [place], [facility] Showing recent visits within past 365 days and meeting all other requirements Future Appointments No visits were found meeting these conditions. Showing future appointments within next 90 days and meeting all other requirements Requested Prescriptions Pending Prescriptions Disp Refills albuterol (Proventil HFA) 108 (90 Base) MCG/ACT inhaler 6.7 g 3 Sig: Inhale 2 puffs every 4 hours as needed for wheezing or shortness of breath. Provider: Siomara Estrada PA-C Verified pharmacy: yes Verified day(s) supplied: yes Verified refill(s) needed (previous prescription showing no refills in chart): Yes Have you received any controlled medications from any other provider? N/A Overdue for visit: No If yes - patient scheduled? Yes Most recent labs completed in chart? N/A [facility] 02-10-2025 Miscellaneous Notes Recent Visits Date Type Provider Dept 11/12/24 Office Visit Siomara Estrada PA-C [facility] 02/22/24 Office Visit Gasper Maggie Nelson, [facility] Showing recent visits within past 365 days and meeting all other requirements Future Appointments No visits were found meeting these conditions. Showing future appointments within next 90 days and meeting all other requirements Requested Prescriptions Pending Prescriptions Disp Refills albuterol (Proventil HFA) 108 (90 Base) MCG/ACT inhaler 6.7 g 3 Sig: Inhale 2 puffs every 4 hours as needed for wheezing or shortness of breath. Provider: Siomara Estrada PA-C Verified pharmacy: yes Verified day(s) supplied: yes Verified refill(s) needed (previous prescription showing no refills in chart): Yes Have you received any controlled medications from any other provider? N/A Overdue for visit: No If yes - patient scheduled? Yes Most recent labs completed in chart? N/A documented in this encounter [facility] 12-13-2024 Telephone encounter Note Recent Visits Date Type Provider Dept 11/12/24 Office Visit Siomara Estrada PA-C [facility] 02/22/24 Office Visit Gasper Nelson DO [facility] Showing recent visits within past 365 days and meeting all other requirements Future Appointments No visits were found meeting these conditions. Showing future appointments within next 90 days and meeting all other requirements Requested Prescriptions Pending Prescriptions Disp Refills simvastatin (Zocor) 40 MG tablet 90 tablet 1 Sig: Take one tablet by mouth nightly. Provider: Gasper Nelson DO Verified pharmacy: yes Verified day(s) supplied: yes Verified refill(s) needed (previous prescription showing no refills in chart): Yes Have you received any controlled medications from any other provider? N/A Overdue for visit: No If yes - patient scheduled? Yes Most recent labs completed in chart? No Cholesterol: Lab Results Component Value Date CHOLESTEROLT 229 (H) 01/13/2023 HDLCHOLESTER 55 01/13/2023 TRIGLYCERIDE 92 01/13/2023 LDLCHOLESTER 154 (H) 01/13/2023 CHOLHDLCRATI 4.2 01/13/2023 NONHDLCHOLES 174 (H) 01/13/2023 [facility] 12-13-2024 Miscellaneous Notes Recent Visits Date Type Provider Dept 11/12/24 Office Visit Siomara Estrada PA-C [facility] 02/22/24 Office Visit Gasper Nelson DO [facility] Showing recent visits within past 365 days and meeting all other requirements Future Appointments No visits were found meeting these conditions. Showing future appointments within next 90 days and meeting all other requirements Requested Prescriptions Pending Prescriptions Disp Refills simvastatin (Zocor) 40 MG tablet 90 tablet 1 Sig: Take one tablet by mouth nightly. Provider: Gasper Nelson DO Verified pharmacy: yes Verified day(s) supplied: yes Verified refill(s) needed (previous prescription showing no refills in chart): Yes Have you received any controlled medications from any other provider? N/A Overdue for visit: No If yes - patient scheduled? Yes Most recent labs completed in chart? No Cholesterol: Lab Results Component Value Date CHOLESTEROLT 229 (H) 01/13/2023 HDLCHOLESTER 55 01/13/2023 TRIGLYCERIDE 92 01/13/2023 LDLCHOLESTER 154 (H) 01/13/2023 CHOLHDLCRATI 4.2 01/13/2023 NONHDLCHOLES 174 (H) 01/13/2023 documented in this encounter [facility] 12-02-2024 Note Outreach to patient to provide information on how to enroll in silver sneakers and she requested refill of Trazadone for sleep issues last filled in 06/28 for 90 days, last OV 11/12/24 [facility] 12-02-2024 Telephone encounter Note Outreach to patient to provide information on how to enroll in silver sneakers and she requested refill of Trazadone for sleep issues last filled in 06/28 for 90 days, last OV 11/12/24 [facility] 12-02-2024 Miscellaneous Notes Outreach to patient to provide information on how to enroll in silver sneakers and she requested refill of Trazadone for sleep issues last filled in 06/28 for 90 days, last OV 11/12/24 documented in this encounter [facility] 11-12-2024 Evaluation + Plan note Associated Problem(s): Hypercholesterolemia - Chronic stable was taking simvastatin 80 mg daily but felt that that was too much and she was concerned about problems with her liver so she has been cutting in half and taking 40 mg daily. Will recheck her levels today but I believe this is reasonable enough as her levels have been adequately controlled [facility] 11-12-2024 Miscellaneous Notes Associated Problem(s): Hypercholesterolemia - Chronic stable was taking simvastatin 80 mg daily but felt that that was too much and she was concerned about problems with her liver so she has been cutting in half and taking 40 mg daily. Will recheck her levels today but I believe this is reasonable enough as her levels have been adequately controlled Associated Problem(s): GERD (gastroesophageal reflux disease) - Chronic stable she will continue on esomeprazole 40 mg daily. Associated Problem(s): COPD (chronic obstructive pulmonary disease) (HCC) - Chronic stable patient was recently treated for flareup with amoxicillin and prednisone she can take the prednisone she is requesting a lower dose Medrol Dosepak and a second round of antibiotics that she started in some generalized wheezing and congestion strongly encouraged smoking cessation. documented in this encounter [facility] 11-12-2024 Evaluation + Plan note Associated Problem(s): GERD (gastroesophageal reflux disease) - Chronic stable she will continue on esomeprazole 40 mg daily. [facility] 11-12-2024 Evaluation + Plan note Associated Problem(s): COPD (chronic obstructive pulmonary disease) (HCC) - Chronic stable patient was recently treated for flareup with amoxicillin and prednisone she can take the prednisone she is requesting a lower dose Medrol Dosepak and a second round of antibiotics that she started in some generalized wheezing and congestion strongly encouraged smoking cessation. [facility] 11-12-2024 History of Present illness Narrative Images from the original note were not included. [facility] - [address] [facility] [address] Dept: [phone] Dept Chief Complaint: Ashley Gómez is an 69 y.o. female here for an annual wellness visit. Assessment/Plan : Problem List Items Addressed This Visit COPD (chronic obstructive pulmonary disease) (HCC) - Chronic stable patient was recently treated for flareup with amoxicillin and prednisone she can take the prednisone she is requesting a lower dose Medrol Dosepak and a second round of antibiotics that she started in some generalized wheezing and congestion strongly encouraged smoking cessation. Relevant Medications methylPREDNISolone (Medrol Dospak) 4 MG tablets azithromycin (Zithromax) 250 MG tablet albuterol (Proventil HFA) 108 (90 Base) MCG/ACT inhaler GERD (gastroesophageal reflux disease) - Chronic stable she will continue on esomeprazole 40 mg daily. Hypercholesterolemia - Chronic stable was taking simvastatin 80 mg daily but felt that that was too much and she was concerned about problems with her liver so she has been cutting in half and taking 40 mg daily. Will recheck her levels today but I believe this is reasonable enough as her levels have been adequately controlled Relevant Orders Comprehensive metabolic panel CBC auto differential Lipid panel Other Visit Diagnoses Routine general medical examination at health care facility - Primary Relevant Orders Comprehensive metabolic panel CBC auto differential Encounter for screening mammogram for malignant neoplasm of breast Relevant Orders Bilateral screening mammogram with tomosynthesis I have reviewed and reconciled the medication list with the patient today. Current Outpatient Medications Medication Sig Dispense Refill alendronate (Fosamax) 70 MG tablet TAKE 1 TABLET WEEKLY DIRECTED. SEE PACKAGE FOR ADDITIONAL INSTRUCTIONS 12 tablet 3 dextromethorphan-guaiFENesin (Robitussin-DM) 10-100 MG/5ML liquid 2 tsp QID prn cough 240 mL 0 esomeprazole (NexIUM) [address] capsule TAKE 1 CAPSULE EVERY MORNING BEFORE BREAKFAST 90 capsule 1 simvastatin (Zocor) 80 MG tablet TAKE 1 TABLET EVERY NIGHT (Patient taking differently: Take 40 mg by mouth Nightly.) 90 tablet 1 venlafaxine XR (Effexor XR) 150 MG 24 hr capsule TAKE 1 CAPSULE EVERY MORNING 90 capsule 1 albuterol (Proventil HFA) 108 (90 Base) MCG/ACT inhaler Inhale 2 puffs every 4 hours as needed for wheezing or shortness of breath. 6.7 g 3 azithromycin (Zithromax) 250 MG tablet Take 2 tabs (500 mg) by mouth today, than 1 daily for 4 days. 6 tablet 0 methylPREDNISolone (Medrol Dospak) 4 MG tablets Take as directed on package. 21 tablet 0 traZODone (Desyrel) 150 MG tablet Take 1 tablet (150 mg) by mouth Nightly as needed for sleep. (Patient not taking: Reported on 11/12/2024) 90 tablet 1 No current facility-administered medications for this visit. Also reviewed during this visit: The following health maintenance schedule was reviewed with the patient and provided in printed form in the after visit summary: Health Maintenance Topic Date Due Hepatitis C Screening Never done DTaP/Tdap/Td Vaccines (1 - Tdap) Never done Zoster Vaccines (1 of 2) Never done Mammogram 01/11/2023 Influenza Vaccine (1) 03/03/2025 (Originally 05/05/2024) RSV Immunization for Adults (1 - Risk 60-74 years 1-dose series) 11/12/2025 (Originally 2014) COVID-19 Vaccine (2023- season) 2025 (Originally 05/05/2024) Depression Monitoring 05/15/2025 Lipid Panel 12/17/2028 Colorectal Cancer Screening 04/29/2034 Medicare Advantage Annual Wellness Visit Completed Pneumococcal Vaccine: 50+ Years Completed Bone Density Scan Completed RSV Immunization under 20 Months Aged Out HIB Vaccines Aged Out Hepatitis B Vaccines Aged Out IPV Vaccines Aged Out Hepatitis A Vaccines Aged Out Meningococcal Vaccine Aged Out Rotavirus Vaccines Aged Out HPV Vaccines Aged Out List of current healthcare providers: Patient Care Team: Gasper Nelson DO as PCP - General (Family Medicine) Orders Placed This Encounter Procedures Bilateral screening mammogram with tomosynthesis Standing Status: Future Standing Expiration Date: 01/12/2026 Comprehensive metabolic panel Standing Status: Future Number of Occurrences: 1 Standing Expiration Date: 11/12/2025 CBC auto differential Standing Status: Future Number of Occurrences: 1 Standing Expiration Date: 11/12/2025 Lipid panel Standing Status: Future Number of Occurrences: 1 Standing Expiration Date: 11/12/2025 Order Specific Question: Has the patient been fasting for 8 hours or more? Answer: Yes Review of Systems Constitutional: Negative for chills and fever. HENT: Positive for congestion. Negative for sore throat. Respiratory: Positive for cough and wheezing. Negative for shortness of breath. Cardiovascular: Negative for chest pain. Gastrointestinal: Negative for abdominal pain, diarrhea, nausea and vomiting. Genitourinary: Negative for difficulty urinating, dysuria, frequency and urgency. Musculoskeletal: Negative for back pain. Neurological: Negative for dizziness and light-headedness. Psychiatric/Behavioral: Negative for sleep disturbance. The patient is not nervous/anxious. All other systems reviewed and are negative. Physical Exam Vitals reviewed. Constitutional: General: She is not in acute distress. Appearance: Normal appearance. She is not ill-appearing or toxic-appearing. HENT: Right Ear: Tympanic membrane and ear canal normal. Left Ear: Tympanic membrane and ear canal normal. Mouth/Throat: Mouth: Mucous membranes are moist. Pharynx: No oropharyngeal exudate or posterior oropharyngeal erythema. Eyes: General: No scleral icterus. Conjunctiva/sclera: Conjunctivae normal. Pupils: Pupils are equal, round, and reactive to light. Cardiovascular: Rate and Rhythm: Normal rate and regular rhythm. Heart sounds: Murmur heard. Pulmonary: Effort: Pulmonary effort is normal. No respiratory distress. Breath sounds: Wheezing present. Abdominal: General: Bowel sounds are normal. There is no distension. Palpations: Abdomen is soft. There is no mass. Tenderness: There is no abdominal tenderness. There is no guarding. Musculoskeletal: Cervical back: Normal range of motion and neck supple. Skin: General: Skin is warm and dry. Neurological: Mental Status: She is alert. Psychiatric: Mood and Affect: Mood normal. Objective : BP 132/80 (BP Location: Left arm, Patient Position: Sitting, BP Cuff Size: Adult) Pulse 83 Temp 36.2 C (97.2 F) (Temporal) Ht 5' 4 (1.626 m) Wt 120 lb (54.4 kg) SpO2 90% BMI 20.60 kg/m No results found. Subjective :This is a 69-year-old female with a longstanding history of GERD, COPD and osteopenia who was last seen by her primary care physician approximately 2 weeks ago for an exacerbation of his COPD and placed on amoxicillin. She presents back to the office today for her Medicare annual wellness. Last baseline labs were February of last year and they were normal. Health Risk Assessment: General: General In general, how would you say your health is?: Good In the past 7 days, have you experienced any of the following: New or Increased Pain, New or Increased Fatigue, Loneliness, Social Isolation, Stress or Anger?: (!) Yes Select all that apply: (!) Loneliness Do you get the social and emotional suppport you need?: Yes Interventions: Social isolation:Patient declines any further intervention for this issue and continues to work at [employer]. Would like to get involved with [employer] sneakers. Health Habits/Nutrition: Health Habits / Nutrition On average, how many days per week do you engage in moderate to strenous exercise (like a brisk walk)?: (!) 0 days On average, how man minutes do you engage in exercise at this level?: (!) 0 min Have you lost any weight without trying in the past 3 months? : No Have you seen the dentist within the past year?: (!) No Interventions: Have had dentures since age 25 and having no current issues, And agreeable to look into [employer] sneakers Hearing/ Vision: Hearing / Vision Do you or your family notice any trouble with your hearing that hasn't been managed with hearing aids?: No Do you have difficulty driving, watching TV, or doing any of your daily activities because of your eyesight?: No Have you had an eye exam within the past year?: (!) No No results found. Interventions: Vision concerns: Patient encouraged to make appointment with his / her special effects specialist Safety: Safety Do you have a working smoke detector?: Yes Do you have any tripping hazards - loose or unsecured carpets or rugs?: No Do you have any tripping hazards - clutter in doorways, halls, or stairs?: No Do you have either shower bars, grab bars, non-slip mats or non-slip surfaces in your shower or bathtub? : Yes Do all your stairways have a railing or banister? : Yes Do you fasten your seatbelt when you are in a car?: Yes ADL: ADL In the past 7 days, did you need help from others to perform any of the following everyday activities: Eating, dressing, grooming,bathing, toileting, or walking / balance? : No In the past 7 days, did you need help from others to take care of any of the following: laundry, housekeeping, banking / finances,shopping, telephone use, food preparation, transportation, or taking medications? : No Living Will: Living Will Do you have a living will?: No Interventions: Cognitive: Cognitive Screening: Mini-Cog Clock Drawing Test (CDT): 2 Words Recalled: 3 (apple table blessing) Total Score: 5 Total Score Interpretation: Normal Mini-Cog Fall Risk: Fall Risk One or more falls in the last year:: No Advised to use a cane or walker to get around safely:: No Feels unsteady when walking:: No Steadies self on furniture while walking at home:: No Worried about falling:: No Depression Screening: Over the past 2 weeks, how often have you been bothered by any of the following problems? Little interest or pleasure in doing things: Not at all Feeling down, depressed, or hopeless: Not at all Patient Health Questionnaire-2 Score: 0 Interventions: Tobacco Use: Social History Tobacco Use Smoking Status Every Day Current packs/day: 1.00 Average packs/day: 1 pack/day for 5.1 years (5.1 ttl pk-yrs) Types: Cigarettes Start date: 09/24/2019 Smokeless Tobacco Never Alcohol Use: Audit Alcohol Screening Q1: How often do you have a drink containing alcohol?: Never Q2: How many drinks containing alcohol do you have on a typical day when you are drinking?: Patient does not drink Q3: How often do you have six or more drinks on one occasion?: Never Audit-C Score: 0 Skip to questions 9-10?: 1 Social Drivers of Health: SDOH risk assessment performed and documented today by members of the health care team. A total time of 5-10 minutes was spent obtaining information from the patient and discussing options to address the patient's social risk factors and unmet needs. Social Drivers of Health with Concerns Concerns Present Tobacco Use: High Risk (11/12/2024) Physical Activity: Inactive (11/12/2024) Social Connections: Socially Isolated (11/12/2024) Unknown Concern Housing Stability: Unknown (11/12/2024) documented in this encounter [facility] 11-12-2024 Instructions Siomara Estrada PA-C - 11/12/2024 8:40 AM EDT Personalized Preventative Plan for Ashley Gómez - 11/12/2024 Medicare offers a range of preventative health benefits. Some of the tests and screenings are paid in full while others may be subject to a deductible, co-insurance, and / or copay. Some of these benefits include a comprehensive review of your medical history including lifestyle, illnesses that may run in your family, and various assessments and screenings as appropriate. After reviewing your medical record and screening and assessments performed today, your provider may have ordered immunizations, labs, imaging, and / or referrals for you. A list of these orders (if applicable) as well as your Preventative Care list are included within your After Visit Summary for your review. Other Preventative Recommendations: A preventive eye exam by an special effects specialist is recommended every 1-2 years to screen for glaucoma, cataracts, macular degeneration, and other eye disorders. A preventive dental visit is recommended every 6 months. Try to get at least 150 minutes of exercise per week or 10,000 steps per day on a pedometer. You need 1200-1500mg of calcium and 3034-6499 international units of vitamin D per day. It is possible to meet your calcium requirement with diet alone, but a vitamin D supplement is usually necessary to meet this goal. When exposed to the sun, use a sunscreen that protects against both UVA and UVB radiation with an SPF of 30 or greater. Reapply every 2-3 hours or after sweating, drying off with a towel, or swimming. Always wear a seat belt when traveling in a car. Always wear a helmet when riding a bicycle or a motorcycle documented in this encounter [facility] 10-31-2024 History of Present illness Narrative Images from the original note were not included. [facility] - [address] [facility] [address] Dept: [phone] Dept Loc: [phone] Patient was identified and seen today via Telehealth by agreement and consent. I used the following Telehealth technology: Audio and video capabilities. Patient location: Patient Location: Home. This patient encounter is appropriate and reasonable under the circumstances: too sick to leave home . The patient has been advised of the potential risks and limitations of this mode of treatment (including but not limited to the absence of in-person examination) and has agreed to be treated in a remote fashion in spite of them. Any and all of the patient's/patient's family's questions on this issue have been answered and I have made no promises or guarantees to the patient. The patient has also been advised to contact this office for worsening conditions or problems, and seek emergency medical treatment and/or call 911 if the patient deems either necessary. The patient stated that they are currently in the [facility]. If the patient is a minor, permission has been obtained by the parent or guardian for the patient to receive medical care at this visit. Assessment/Plan Diagnoses and all orders for this visit: Chronic obstructive pulmonary disease with acute exacerbation (HCC) (Primary) Influenza Other orders - amoxicillin (Amoxil) 500 MG capsule; Take 1 capsule (500 mg) by mouth 3 times daily for 10 days. - predniSONE (Deltasone) 20 MG tablet; Take 1 tablet (20 mg) by mouth 2 times daily for 10 doses. - dextromethorphan-guaiFENesin (Robitussin-DM) 10-100 MG/5ML liquid; 2 tsp QID prn cough On the video she was alert and oriented. There is no pallor cyanosis or edema. She was able to speak sentences but did have a dry cough. There is no overt wheezing. No follow-ups on file. Patient instructed to call with any worsening or prolonged Sore throat, cough, chest pain, shortness of breath, body aches, fever, and diarrhea. Also instructed patient to buy a pulse oximeter and check her O2 sat to make sure it is above 94%. To go to ER with any decline with more shortness of breath or persistent vomiting or diarrhea. Did recommend her to quit smoking as well and take albuterol 2 puffs 4 times a day. Yusuf Gómez is a 69 y.o. who presents on the video for a remote visit. Chief complaint: No chief complaint on file. Fever body aches and scant productive cough of yellow sputum HPI Long-term smoker with history of COPD presents with 3 days of acute onset of bodyaches backaches and fever. Also some mild vomiting or diarrhea. Now has a harsh cough that is somewhat productive of yellow spit. She denied photophobia or neck pain. She denied chest pain or pleurisy. She denied PND orthopnea or edema. No abdominal pain. She is holding down some liquids. She has not had diarrhea for a day. He is urinating pretty well. Taking albuterol on a as needed basis. Of note she did not get immunized this fall for influenza or COVID. Did not do any home viral testing. Allergies Allergen Reactions Sulfa Antibiotics Swelling Other reaction(s): Other: See Comments Other reaction(s): U Other reaction(s): Hives Other reaction(s): Hives pulled eye backward Other reaction(s): U [] PMH, allergies, and social history reviewed and updated as appropriate [] Medication list reviewed/updated [] Allergies reviewed/updated [] Problem list reviewed/updated [] Patient requests medication refills, see below for orders. Gasper Nelson DO 10/31/2024 12:20 PM documented in this encounter [facility] 10-31-2024 Telephone encounter Note S: Patient spoke with CAC nurse regarding chest congestion, B: Onset of symptoms/concern 10/29/24 A: Pt endorses ears clogged, pain in back and non-productive cough, chest congestion, fever headache, fatigue, shortness of breath with activity, wheezing. R: Pt unable to come into office due to lack of transportation. Pt requesting to have medication sent to pharmacy. PT scheduled Mychart VV with Dr. Nelson at 10/31/24 at 12:00 PM. Pt given home care advise for Cough. Patient understands care advice. No further needs at this time. Patient instructed to call back with new or worsening symptoms. Reason for Disposition [1] MILD difficulty breathing (e.g., minimal/no SOB at rest, SOB with walking, pulse <100) AND [2] still present when not coughing Protocols used: Cough - Acute Bib-Puvqxkgoif-LSYYZ-AH [facility] 10-31-2024 Miscellaneous Notes S: Patient spoke with [facility] nurse regarding chest congestion, B: Onset of symptoms/concern 10/29/24 A: Pt endorses ears clogged, pain in back and non-productive cough, chest congestion, fever headache, fatigue, shortness of breath with activity, wheezing. R: Pt unable to come into office due to lack of transportation. Pt requesting to have medication sent to pharmacy. PT scheduled Mychart VV with Dr. Nelson at 10/31/24 at 12:00 PM. Pt given home care advise for Cough. Patient understands care advice. No further needs at this time. Patient instructed to call back with new or worsening symptoms. Reason for Disposition [1] MILD difficulty breathing (e.g., minimal/no SOB at rest, SOB with walking, pulse <100) AND [2] still present when not coughing Protocols used: Cough - Acute Zgb-Wkvomlnqdu-CUTEZ-AH documented in this encounter [facility] 10-01-2024 Telephone encounter Note Received signed receipt of certified letter sent to patient. Scanned to media in chart. [facility] 10-01-2024 Miscellaneous Notes Received signed receipt of certified letter sent to patient. Scanned to media in chart. No auth needed. Faxed orders to [facility]-Scheduling for pt to be sched - [facility] will sched/advise pt. My chart mess sent to patient with info to sched. Vincent Perez, It looks like the patient navigator has done all that she can do. So it looks like all avenues have been exhausted to try and reach this patient to schedule. To April to follow up Mrs. Gómez called in after receiving certified letter. She would like to return to complete the recommended lung screening 3 month follow-up imaging previously ordered by Dr. Nelson. Will send message to provider office to place new referral for imaging and assist patient with scheduling. She prefers [place] for imaging location and is available on Monday the if there are any appointments available. Patient still has not completed the recommended lung screening follow-up imaging. Navigator mailed certified letter, lung nodule education materials, and offered to assist with overcoming barriers to care. Ms. Gómez had a Lung RADS [address] scan on 12/18/2023. Her primary care provider placed a referral for the recommended 3-month follow-up CT chest. [facility] central scheduling and provider office have made multiple attempts to contact patient to assist with scheduling imaging. Navigator mailed patient lung screening follow-up reminder letter and lung nodule patient information. If patient does not call in to schedule imaging, navigator will plan to send certified letter. documented in this encounter [facility] 09-30-2024 Telephone encounter Note Recent Visits Date Type Provider Dept 02/22/24 Office Visit Gasper Nelson DO [facility] Showing recent visits within past 365 days and meeting all other requirements Future Appointments Date Type Provider Dept 11/12/24 Appointment Gasper Nelson DO [facility] Showing future appointments within next 90 days and meeting all other requirements Requested Prescriptions Pending Prescriptions Disp Refills venlafaxine XR (Effexor XR) 150 MG 24 hr capsule [Pharmacy Med Name: Venlafaxine HCl ER Oral Capsule Extended Release 24 Hour 150 MG] 90 capsule 1 Sig: TAKE 1 CAPSULE EVERY MORNING esomeprazole (NexIUM) [address] capsule [Pharmacy Med Name: Esomeprazole Magnesium Oral Capsule Delayed Release 40 MG] 90 capsule 1 Sig: TAKE 1 CAPSULE EVERY MORNING BEFORE BREAKFAST Provider: Gasper Nelson DO Verified pharmacy: yes Verified day(s) supplied: yes Verified refill(s) needed (previous prescription showing no refills in chart): Yes Have you received any controlled medications from any other provider? N/A Overdue for visit: No If yes - patient scheduled? N/A Most recent labs completed in chart? N/A None [facility] 09-30-2024 Miscellaneous Notes Recent Visits Date Type Provider Dept 02/22/24 Office Visit Gasper Nelson DO [facility] Showing recent visits within past 365 days and meeting all other requirements Future Appointments Date Type Provider Dept 11/12/24 Appointment Gasper Nelson DO [facility] Showing future appointments within next 90 days and meeting all other requirements Requested Prescriptions Pending Prescriptions Disp Refills venlafaxine XR (Effexor XR) 150 MG 24 hr capsule [Pharmacy Med Name: Venlafaxine HCl ER Oral Capsule Extended Release 24 Hour 150 MG] 90 capsule 1 Sig: TAKE 1 CAPSULE EVERY MORNING esomeprazole (NexIUM) [address] capsule [Pharmacy Med Name: Esomeprazole Magnesium Oral Capsule Delayed Release 40 MG] 90 capsule 1 Sig: TAKE 1 CAPSULE EVERY MORNING BEFORE BREAKFAST Provider: Gasper Nelson DO Verified pharmacy: yes Verified day(s) supplied: yes Verified refill(s) needed (previous prescription showing no refills in chart): Yes Have you received any controlled medications from any other provider? N/A Overdue for visit: No If yes - patient scheduled? N/A Most recent labs completed in chart? N/A None documented in this encounter [facility] 09-16-2024 Telephone encounter Note Recent Visits Date Type Provider Dept 02/22/24 Office Visit Gasper Nelson DO [facility] Showing recent visits within past 365 days and meeting all other requirements Future Appointments Date Type Provider Dept 09/30/24 Appointment Gasper Nelson DO [facility] Showing future appointments within next 90 days and meeting all other requirements Requested Prescriptions Pending Prescriptions Disp Refills alendronate (Fosamax) 70 MG tablet [Pharmacy Med Name: Alendronate Sodium Oral Tablet 70 MG] 12 tablet 3 Sig: TAKE 1 TABLET WEEKLY DIRECTED. SEE PACKAGE FOR ADDITIONAL INSTRUCTIONS Provider: Gasper Nelson DO Verified pharmacy: yes Verified day(s) supplied: yes Verified refill(s) needed (previous prescription showing no refills in chart): Yes Have you received any controlled medications from any other provider? No Overdue for visit: No If yes - patient scheduled? Yes Most recent labs completed in chart? Yes Cholesterol: Lab Results Component Value Date CHOLESTEROLT 229 (H) 01/13/2023 HDLCHOLESTER 55 01/13/2023 TRIGLYCERIDE 92 01/13/2023 LDLCHOLESTER 154 (H) 01/13/2023 CHOLHDLCRATI 4.2 01/13/2023 NONHDLCHOLES 174 (H) 01/13/2023 [facility] 09-16-2024 Miscellaneous Notes Recent Visits Date Type Provider Dept 02/22/24 Office Visit Gasper Nelson DO [facility] Showing recent visits within past 365 days and meeting all other requirements Future Appointments Date Type Provider Dept 09/30/24 Appointment Gasper Nelson DO [facility] Showing future appointments within next 90 days and meeting all other requirements Requested Prescriptions Pending Prescriptions Disp Refills alendronate (Fosamax) 70 MG tablet [Pharmacy Med Name: Alendronate Sodium Oral Tablet 70 MG] 12 tablet 3 Sig: TAKE 1 TABLET WEEKLY DIRECTED. SEE PACKAGE FOR ADDITIONAL INSTRUCTIONS Provider: Gasper Nelson DO Verified pharmacy: yes Verified day(s) supplied: yes Verified refill(s) needed (previous prescription showing no refills in chart): Yes Have you received any controlled medications from any other provider? No Overdue for visit: No If yes - patient scheduled? Yes Most recent labs completed in chart? Yes Cholesterol: Lab Results Component Value Date CHOLESTEROLT 229 (H) 01/13/2023 HDLCHOLESTER 55 01/13/2023 TRIGLYCERIDE 92 01/13/2023 LDLCHOLESTER 154 (H) 01/13/2023 CHOLHDLCRATI 4.2 01/13/2023 NONHDLCHOLES 174 (H) 01/13/2023 documented in this encounter [facility] 07-24-2024 Telephone encounter Note Recent Visits Date Type Provider Dept 02/22/24 Office Visit Gasper Nelson DO [facility] 07/31/23 Office Visit Gasper Nelson DO [facility] Showing recent visits within past 365 days and meeting all other requirements Future Appointments Date Type Provider Dept 08/21/24 Appointment DO [facility] Showing future appointments within next 90 days and meeting all other requirements Requested Prescriptions Pending Prescriptions Disp Refills simvastatin (Zocor) 80 MG tablet [Pharmacy Med Name: Simvastatin Oral Tablet 80 MG] 90 tablet 1 Sig: TAKE 1 TABLET EVERY NIGHT Provider: Gasper Nelson DO Verified pharmacy: yes Verified day(s) supplied: yes Verified refill(s) needed (previous prescription showing no refills in chart): Yes Have you received any controlled medications from any other provider? N/A Overdue for visit: Yes If yes - patient scheduled? Yes Most recent labs completed in chart? Yes Cholesterol: Lab Results Component Value Date CHOLESTEROLT 229 (H) 01/13/2023 HDLCHOLESTER 55 01/13/2023 TRIGLYCERIDE 92 01/13/2023 LDLCHOLESTER 154 (H) 01/13/2023 CHOLHDLCRATI 4.2 01/13/2023 NONHDLCHOLES 174 (H) 01/13/2023 [facility] 07-24-2024 Miscellaneous Notes Recent Visits Date Type Provider Dept 02/22/24 Office Visit Gasper Serrano [place], DO [facility] 07/31/23 Office Visit Gasper Serrano Puneetdorinaki DO [facility] Showing recent visits within past 365 days and meeting all other requirements Future Appointments Date Type Provider Dept 08/21/24 Appointment Gasper NelsonDO [facility] Showing future appointments within next 90 days and meeting all other requirements Requested Prescriptions Pending Prescriptions Disp Refills simvastatin (Zocor) 80 MG tablet [Pharmacy Med Name: Simvastatin Oral Tablet 80 MG] 90 tablet 1 Sig: TAKE 1 TABLET EVERY NIGHT Provider: Gasper Nelson DO Verified pharmacy: yes Verified day(s) supplied: yes Verified refill(s) needed (previous prescription showing no refills in chart): Yes Have you received any controlled medications from any other provider? N/A Overdue for visit: Yes If yes - patient scheduled? Yes Most recent labs completed in chart? Yes Cholesterol: Lab Results Component Value Date CHOLESTEROLT 229 (H) 01/13/2023 HDLCHOLESTER 55 01/13/2023 TRIGLYCERIDE 92 01/13/2023 LDLCHOLESTER 154 (H) 01/13/2023 CHOLHDLCRATI 4.2 01/13/2023 NONHDLCHOLES 174 (H) 01/13/2023 documented in this encounter [facility] 06-28-2024 Telephone encounter Note Reason for call: Pari, I am calling as the CT Lung Screening follow up low dose order for 02/22/24 was cancelled by Farida Winn Due to being unable to contact the patient. If the provider would still like the patient to have this completed either the old order needs to be un cancelled or a new order needs to be placed and then I can reach out to the patient to get her scheduled. Thank you Contact [facility] 06-28-2024 Miscellaneous Notes Reason for call: Pari, I am calling as the CT Lung Screening follow up low dose order for 02/22/24 was cancelled by Farida Winn Due to being unable to contact the patient. If the provider would still like the patient to have this completed either the old order needs to be un cancelled or a new order needs to be placed and then I can reach out to the patient to get her scheduled. Thank you Contact documented in this encounter [facility] 06-28-2024 Telephone encounter Note No auth needed. Faxed orders to [facility]-Scheduling for pt to be sched - [facility] will sched/advise pt. My chart mess sent to patient with info to sched. [facility] 06-28-2024 Miscellaneous Notes No auth needed. Faxed orders to [facility]-Scheduling for pt to be sched - [facility] will sched/advise pt. My chart mess sent to patient with info to sched. Vincent Perez, It looks like the patient navigator has done all that she can do. So it looks like all avenues have been exhausted to try and reach this patient to schedule. To April to follow up Mrs. Gómez called in after receiving certified letter. She would like to return to complete the recommended lung screening 3 month follow-up imaging previously ordered by Dr. Nelson. Will send message to provider office to place new referral for imaging and assist patient with scheduling. She prefers [place] for imaging location and is available on Monday the if there are any appointments available. Patient still has not completed the recommended lung screening follow-up imaging. Navigator mailed certified letter, lung nodule education materials, and offered to assist with overcoming barriers to care. Ms. Gómez had a Lung RADS [address] scan on 12/18/2023. Her primary care provider placed a referral for the recommended 3-month follow-up CT chest. [facility] central scheduling and provider office have made multiple attempts to contact patient to assist with scheduling imaging. Navigator mailed patient lung screening follow-up reminder letter and lung nodule patient information. If patient does not call in to schedule imaging, navigator will plan to send certified letter. documented in this encounter [facility] 06-27-2024 Telephone encounter Note Vincent Perez, It looks like the patient navigator has done all that she can do. So it looks like all avenues have been exhausted to try and reach this patient to schedule. [facility] 06-27-2024 Miscellaneous Notes Vincent Perez, It looks like the patient navigator has done all that she can do. So it looks like all avenues have been exhausted to try and reach this patient to schedule. To April to follow up Mrs. Gómez called in after receiving certified letter. She would like to return to complete the recommended lung screening 3 month follow-up imaging previously ordered by Dr. Nelson. Will send message to provider office to place new referral for imaging and assist patient with scheduling. She prefers [place] for imaging location and is available on Monday if there are any appointments available. Patient still has not completed the recommended lung screening follow-up imaging. Navigator mailed certified letter, lung nodule education materials, and offered to assist with overcoming barriers to care. Ms. Gómez had a Lung RADS [address] scan on 12/18/2023. Her primary care provider placed a referral for the recommended 3-month follow-up CT chest. [facility] central scheduling and provider office have made multiple attempts to contact patient to assist with scheduling imaging. Navigator mailed patient lung screening follow-up reminder letter and lung nodule patient information. If patient does not call in to schedule imaging, navigator will plan to send certified letter. documented in this encounter [facility] 06-27-2024 Telephone encounter Note To April to follow up [facility] 06-27-2024 Telephone encounter Note Mrs. Gómez called in after receiving certified letter. She would like to return to complete the recommended lung screening 3 month follow-up imaging previously ordered by Dr. Nelson. Will send message to provider office to place new referral for imaging and assist patient with scheduling. She prefers [place] for imaging location and is available on Monday if there are any appointments available. [facility] 06-20-2024 Note Patient still has no t completed the recommended lung screening follow-up imaging. Navigator mailed certified letter, lung nodule education materials, and offered to assist with overcoming barriers to care. [facility] 06-20-2024 Telephone encounter Note Patient still has not completed the recommended lung screening follow-up imaging. Navigator mailed certified letter, lung nodule education materials, and offered to assist with overcoming barriers to care. [facility] 06-20-2024 Miscellaneous Notes Patient still has not completed the recommended lung screening follow-up imaging. Navigator mailed certified letter, lung nodule education materials, and offered to assist with overcoming barriers to care. Ms. Gómez had a Lung RADS [address] scan on 12/18/2023. Her primary care provider placed a referral for the recommended 3-month follow-up CT chest. [facility] central scheduling and provider office have made multiple attempts to contact patient to assist with scheduling imaging. Navigator mailed patient lung screening follow-up reminder letter and lung nodule patient information. If patient does not call in to schedule imaging, navigator will plan to send certified letter. documented in this encounter [facility] 06-11-2024 Telephone encounter Note RX loaded Next ov 08/21/24 [facility] 06-11-2024 Miscellaneous Notes RX loaded Next ov 08/21/24 Medication name: traZODone (Desyrel) 150 MG tablet Patient states that they are running low on this medication. Please advise. Medication dosage: 150 mg (Miligrams Monthly quantity needed: 30 How many day supply requestin days Medication route: oral (PO) Medication administration time(s): as needed at bedtime (HS) If taking medication PRN, reason for taking medication: sleep If this is a controlled substance do you receive this or any other controlled medication from any other doctor or facility: N/A Ordering provider: Dr. Nelson Date of last office visit: 02/22/24 Date of next office visit: 08/21/24 Date of last refill: (see medication tab): 04/17/24 Updated/Validated preferred pharmacy: Yes Patient instructed to contact the pharmacy prior to picking up the medication: Yes documented in this encounter [facility] 06-11-2024 Telephone encounter Note Medication name: traZODone (Desyrel) 150 MG tablet Patient states that they are running low on this medication. Please advise. Medication dosage: 150 mg (Miligrams Monthly quantity needed: 30 How many day supply requestin days Medication route: oral (PO) Medication administration time(s): as needed at bedtime (HS) If taking medication PRN, reason for taking medication: sleep If this is a controlled substance do you receive this or any other controlled medication from any other doctor or facility: N/A Ordering provider: Dr. Nelson Date of last office visit: 02/22/24 Date of next office visit: 08/21/24 Date of last refill: (see medication tab): 04/17/24 Updated/Validated preferred pharmacy: Yes Patient instructed to contact the pharmacy prior to picking up the medication: Yes [facility] 04-29-2024 Note [facility] Medical Records Department [address] [place] [address] History Physical Exam 04/29/24 0756 MR#: [id number] Acct: [id number] Name: ASHLEY GÓMEZ Rep #: [id number] : [id number] 68 From: Slim Friend DO PCP: Dr. Danish Davila, DO Status:[facility] Location: [address] - General General Date of Admission: 04/29/24 Date of Service: 04/29/24 Chief Complaint: Screening colonoscopy HPI Narrative ASHLEY GÓMEZ, is a 68 F who presents today for screening colonoscopy. She had a colonoscopy back in 2013 that was normal. She not have any abdominal pain. She does not have any cramping, chest pain or shortness of breath. She carries a past medical history of mild depression, hypercholesterolemia, possible COPD, osteoporosis. Overall she is in fairly good health. [facility]LY [facility], [facility] Medical History (Updated 04/26/24 @ 14:43 by Patricia Rivas) Wears dentures Wears glasses Post-menopausal Depression Arthritis Anemia Gastric reflux Former smoker Hoarseness History of stress test Osteopenia COPD (chronic obstructive pulmonary disease) Family hx of colon cancer Nausea vomiting Diarrhea Pathologic pelvic fracture Chronic anemia GERD (gastroesophageal reflux disease) Depression Home Medications ???Medication ???Instructions ???Recorded ???Last Taken ???Type esomeprazole magnesium 20 mg 40 mg PO DAILY 08/08/13 05/12/14 08:00 History capsule,delayed release (Nexium) 40 MG albuterol sulfate 90 mcg/actuation 2 puff inhalation Q4H PRN 03/20/24 Unknown History aerosol inhaler (Proventil HFA) shortness of breath or wheezing alendronate 70 mg tablet 70 mg PO QWEEK 03/20/24 Unknown History simvastatin 80 mg tablet 40 mg PO DAILY 03/20/24 Unknown History trazodone 150 mg tablet,extended 150 mg PO HS PRN sleep 03/20/24 Unknown History release 24 hr venlafaxine 150 mg 150 mg PO DAILY 03/20/24 Unknown History capsule,extended release 24 hr Allergy/AdvReac Type Severity Reaction Status Date / Time Sulfa (Sulfonamide Allergy Hives Verified 04/29/24 07:57 Antibiotics) Family History (Updated 03/20/24 @ 09:09 by Pooja Padilla) Mother Pancreatic cancer Father COPD (chronic obstructive pulmonary disease) Brother Colon cancer Heart disease Sister Stomach cancer Brother Leukemia Surgical History (Updated 03/20/24 @ 09:06 by Pooja Padilla) History of tonsillectomy and adenoidectomy Hx of cholecystectomy Hx of appendectomy Hx of colonoscopy Social History (Updated 03/20/24 @ 09:13 by Pooja Padilla) household members: none current occupational status: employed current occupation: [employer] Smoking Status: Former smoker Tobacco: How many years used: 4 alcohol intake: former substance use type: does not use ROS Review of Systems ROS Unobtainable: other Constitutional Constitutional: Denies fatigue, fever(s), poor appetite, weight gain or weight loss ENT HEENT: Denies mouth lesions Cardiovascular Cardiovascular: Denies abdominal bloating, abdominal edema or abdominal pain Respiratory/Chest Respiratory/Chest: Denies change in mental status, change in phlegm color, chest congestion or chest tightness Gastrointestinal Gastrointestinal: Denies belching, bloating, change in bowel habits, change in stool character, chewing difficulty, coffee ground emesis, constipation, cramping, diarrhea, dyspepsia, dysphagia, early satiety, excessive flatus, fecal incontinence, heartburn, hematemesis, hematochezia, hemorrhoids, loose stools, melena, nausea, odynophagia, rectal bleeding, tenesmus, vomiting or weight changes Genitourinary Genitourinary: Denies abdominal discomfort, burning urination or itching Musculoskeletal Musculoskeletal: Reports as per HPI; Denies muscle weakness or myalgias Integumentary Integumentary: Denies jaundice Neurologic Neurologic: Denies lack of coordination or weakness Psychiatric Psychiatric: Denies confusion, depression, memory loss, mood swings, paranoia or suicidal ideation Endocrine Endocrinology: Denies systems reviewed and no addt'l complaints, except as documented Hematologic/Lymphatic Hematologic/Lymphatic: Denies anemia, easy bleeding, easy bruising or lymphadenopathy Allergic/Immunologic Allergic/Immunologic: Denies systems reviewed and no addt'l complaints, except as documented Assessment Plan Assessment/Plan (1) Encounter for screening for malignant neoplasm of colon: PLAN: She was explained alternatives, risk, benefits including not withstanding bleeding, infection, sepsis, perforation, need for emergent urgent . She will have an ASA of 3. 04/29/24 0758 Cosigner Signature (if applicable): CC: Dr. Danish Davila DO; Slim Weiss, Signed [facility] 04-23-2024 Note Ms. Gómez had a Edenilson g RADS [address] scan on 12/18/2023. Her primary care provider placed a referral for the recommended 3-month follow-up CT chest. [facility] central scheduling and provider office have made multiple attempts to contact patient to assist with scheduling imaging. Navigator mailed patient lung screening follow-up reminder letter and lung nodule patient information. If patient does not call in to schedule imaging, navigator will plan to send certified letter. [facility] 04-23-2024 Telephone encounter Note Ms. Gómez had a Lung RADS [address] scan on 12/18/2023. Her primary care provider placed a referral for the recommended 3-month follow-up CT chest. [facility] central scheduling and provider office have made multiple attempts to contact patient to assist with scheduling imaging. Navigator mailed patient lung screening follow-up reminder letter and lung nodule patient information. If patient does not call in to schedule imaging, navigator will plan to send certified letter. [facility] 04-17-2024 Telephone encounter Note Recent Visits Date Type Provider Dept 02/22/24 Office Visit Gasper Nelson DO [facility] 07/31/23 Office Visit Gasper Nelson DO [facility] Showing recent visits within past 365 days and meeting all other requirements Future Appointments No visits were found meeting these conditions. Showing future appointments within next 90 days and meeting all other requirements Requested Prescriptions Pending Prescriptions Disp Refills traZODone (Desyrel) 150 MG tablet [Pharmacy Med Name: TRAZODONE HYDROCHLORIDE 150 MG Tablet] 90 tablet 0 Sig: Take 1 tablet (150 mg) by mouth Nightly as needed for sleep. Provider: Gasper Nelson DO Overdue for visit: No If yes - patient scheduled? Yes - 08/21/2024 Most recent labs completed in chart? Yes Verified pharmacy: yes Verified day(s) supplied: yes Verified refill(s) needed (previous prescription showing no refills in chart): Yes Have you received any controlled medications from any other provider? No None [facility] 04-17-2024 Miscellaneous Notes Recent Visits Date Type Provider Dept 02/22/24 Office Visit Gasper Nelson DO [facility] 07/31/23 Office Visit Gasper Nelson DO [facility] Showing recent visits within past 365 days and meeting all other requirements Future Appointments No visits were found meeting these conditions. Showing future appointments within next 90 days and meeting all other requirements Requested Prescriptions Pending Prescriptions Disp Refills traZODone (Desyrel) 150 MG tablet [Pharmacy Med Name: TRAZODONE HYDROCHLORIDE 150 MG Tablet] 90 tablet 0 Sig: Take 1 tablet (150 mg) by mouth Nightly as needed for sleep. Provider: Gasper Nelson DO Overdue for visit: No If yes - patient scheduled? Yes - 08/21/2024 Most recent labs completed in chart? Yes Verified pharmacy: yes Verified day(s) supplied: yes Verified refill(s) needed (previous prescription showing no refills in chart): Yes Have you received any controlled medications from any other provider? No None documented in this encounter [facility] 04-12-2024 Telephone encounter Note Orders cancelled [facility] 04-12-2024 Miscellaneous Notes Orders cancelled We have been unable to reach your patient to schedule their testing. Test Name: CT lung screening follow up, PFT and Mammo 1st Attempt: 03/30/24 2nd Attempt: 04/11/24 Thanks, [facility] Central Scheduling documented in this encounter [facility] 04-11-2024 Telephone encounter Note We have been unable to reach your patient to schedule their testing. Test Name: CT lung screening follow up, PFT and Mammo 1st Attempt: 03/30/24 2nd Attempt: 04/11/24 Thanks, [facility] Central Scheduling [facility] 04-11-2024 Miscellaneous Notes We have been unable to reach your patient to schedule their testing. Test Name: CT lung screening follow up, PFT and Mammo 1st Attempt: 03/30/24 2nd Attempt: 04/11/24 Thanks, [facility] Central Scheduling documented in this encounter [facility] 02-22-2024 Note Referral / orders pe nded for dx and doctor's signature [facility] 02-22-2024 Telephone encounter Note Referral / orders pended for dx and doctor's signature [facility] 02-22-2024 Miscellaneous Notes Referral / orders pended for dx and doctor's signature documented in this encounter [facility] 02-22-2024 History of Present illness Narrative Images from the original note were not included. [facility] [address] [place] [address] [address] [facility] [id number] Visit type: Established Patient Reason for Visit: Follow-up (Ct scan ) Assessment / Plan: Isauro was seen today for follow-up. Diagnoses and all orders for this visit: Chronic obstructive pulmonary disease, unspecified COPD type (HCC) (Primary) Comments: Stable but needs PFTs and possible different inhaler might need Anoro Orders: - CBC auto differential; Future - Comprehensive metabolic panel; Future - Complete PFT pre and post bronchodilator; Future - CBC auto differential - Comprehensive metabolic panel Abnormal CT scan of lung Comments: noted, rech CT chest Orders: - albuterol (Proventil HFA) 108 (90 Base) MCG/ACT inhaler; Inhale 2 puffs every 4 hours as needed for wheezing or shortness of breath. Hypercholesterolemia Comments: Stable, continue Zocor Colon cancer screening Breast cancer screening by mammogram - Bilateral screening mammogram with tomosynthesis; Future Depression, unspecified depression type Comments: Stable, continue Effexor and trazodone Gastroesophageal reflux disease without esophagitis Comments: Stable, continue Nexium and avoidance measures Ex-smoker for less than 1 year Comments: Noted, praise given Other orders - alendronate (Fosamax) 70 MG tablet; TAKE 1 TABLET WEEKLY DIRECTED. SEE PACKAGE FOR ADDITIONAL INSTRUCTIONS - simvastatin (Zocor) 80 MG tablet; Take 1 tablet (80 mg) by mouth Nightly for 180 doses. - venlafaxine XR (Effexor XR) 150 MG 24 hr capsule; TAKE 1 CAPSULE BY MOUTH IN THE MORNING. - esomeprazole (NexIUM) [address] capsule; TAKE 1 CAPSULE EVERY MORNING BEFORE BREAKFAST - Discontinue: Fluticasone-Salmeterol (Wixela Inhub) 250-50 MCG/ACT aerosol powder ; Inhale 1 Inhalation in the morning and 1 Inhalation in the evening. - traZODone (Desyrel) 150 MG tablet; Take 1 tablet (150 mg) by mouth Nightly as needed for sleep for up to 90 doses. Subjective: Patient ID: Ashley Gómez is a 68 y.o. female. HPI ex-smoker for about 6 weeks presents for overall checkup. She wonders whether she needs another antibiotic. Has productive cough of clear phlegm forever. No chest pain fever or change in dyspnea. Stop smoking in 02 January. Of note is not on Wixela inhaler. Taking albuterol only somewhat regularly. He is due for LDCT chest for follow-up of slight abnormalities found in September. No hemoptysis night sweats or chills. Strong family history of cancer is noted Review of Systems denies exertional chest pain palpitations PND orthopnea claudication or edema. Heartburn well-controlled. No dysphagia. No abdominal pain. Bowels regular. No melena or blood She is due for colonoscopy. Also needs breast exam and mammogram. No breast complaints Allergies Allergen Reactions Sulfa Antibiotics Swelling Other reaction(s): Other: See Comments Other reaction(s): U Other reaction(s): Hives Other reaction(s): Hives pulled eye backward Other reaction(s): U Current Outpatient Medications on File Prior to Visit Medication Sig Dispense Refill [DISCONTINUED] albuterol (Proventil HFA) 108 (90 Base) MCG/ACT inhaler Inhale 2 puffs every 4 hours as needed for wheezing or shortness of breath. 6.7 g 1 [DISCONTINUED] alendronate (Fosamax) 70 MG tablet TAKE 1 TABLET WEEKLY DIRECTED. SEE PACKAGE FOR ADDITIONAL INSTRUCTIONS 12 tablet 1 [DISCONTINUED] esomeprazole (NexIUM) [address] capsule TAKE 1 CAPSULE EVERY MORNING BEFORE BREAKFAST 90 capsule 1 [DISCONTINUED] simvastatin (Zocor) 80 MG tablet Take 1 tablet (80 mg) by mouth Nightly for 180 doses. 90 tablet 1 [DISCONTINUED] traZODone (Desyrel) 100 MG tablet TAKE 1 TABLET (100 MG) BY MOUTH NIGHTLY. 90 tablet 1 [DISCONTINUED] venlafaxine XR (Effexor XR) 150 MG 24 hr capsule TAKE 1 CAPSULE BY MOUTH IN THE MORNING. 90 capsule 1 [DISCONTINUED] Fluticasone-Salmeterol (Wixela Inhub) 250-50 MCG/ACT aerosol powder Inhale 1 Inhalation in the morning and 1 Inhalation in the evening. 1 each 5 [DISCONTINUED] predniSONE (Deltasone) 10 MG tablet Two twice daily for 3 days, then 1 twice daily for 3 days, then 1 daily till gone (Patient not taking: Reported on 02/22/2024) 21 tablet 0 No current facility-administered medications on file prior to visit. Patient Active Problem List Diagnosis COPD (chronic obstructive pulmonary disease) (HCC) Osteopenia GERD (gastroesophageal reflux disease) Social History Tobacco Use Smoking status: Every Day Current packs/day: 1.00 Average packs/day: 1 pack/day for 4.4 years (4.4 ttl pk-yrs) Types: Cigarettes Start date: 09/24/2019 Smokeless tobacco: Never Substance Use Topics Alcohol use: Not Currently Alcohol/week: 0.0 standard drinks of alcohol Past Surgical History: Procedure Laterality Date APPENDECTOMY 1965 CHOLECYSTECTOMY [address] Dat ann 2023 TONSILLECTOMY AND ADENOIDECTOMY (HISTORICAL) 1973 Family History Problem Relation Name Age of Onset Pancreatic cancer Mother smoker , age 78 COPD Father coalminers lung, age 79 Stomach cancer Sister Other (oth) Sister covid Accidental Sister fall Cancer Sister ? type Cancer Brother Unknown type Heart disease Brother age 58 Colon cancer Brother 55 Other (Other) Brother age 80 of COVID Leukemia Brother No Known Problems Brother No Known Problems Brother No Known Problems Brother Objective: BP 115/74 (BP Location: Left arm, Patient Position: Sitting, BP Cuff Size: Adult long) Pulse 71 Temp 36.1 C (97 F) (Temporal) Ht 5' 4 (1.626 m) Wt 123 lb (55.8 kg) SpO2 97% BMI 21.11 kg/m Physical Exam Vitals reviewed. Constitutional: General: She is not in acute distress. Appearance: Normal appearance. HENT: Right Ear: Tympanic membrane normal. Left Ear: Tympanic membrane normal. Nose: No congestion or rhinorrhea. Mouth/Throat: Pharynx: No oropharyngeal exudate or posterior oropharyngeal erythema. Eyes: General: No scleral icterus. Neck: Vascular: No carotid bruit. Cardiovascular: Rate and Rhythm: Normal rate and regular rhythm. Pulses: Normal pulses. Heart sounds: Normal heart sounds. No murmur heard. Pulmonary: Effort: Pulmonary effort is normal. Comments: Diminished breath sounds in both bases. Upper rhonchi clear with cough. No wheezing rales or egophony Abdominal: General: Bowel sounds are normal. There is no distension. Palpations: Abdomen is soft. There is no mass. Tenderness: There is no abdominal tenderness. Comments: No hepatosplenomegaly masses bruits or ascites femoral pulses are good Musculoskeletal: Right lower leg: No edema. Left lower leg: No edema. Lymphadenopathy: Cervical: No cervical adenopathy. Skin: General: Skin is warm. Findings: No lesion or rash. Neurological: General: No focal deficit present. Mental Status: She is alert and oriented to person, place, and time. Deep Tendon Reflexes: Reflexes normal. Psychiatric: Mood and Affect: Mood normal. Thought Content: Thought content normal. No breast masses, nipple discharge, skin changes, or axillary adenopathy documented in this encounter [facility] 02-09-2024 Telephone encounter Note Pt scheduled with Dr Nelson 02/22/24 [facility] 02-09-2024 Miscellaneous Notes Pt scheduled with Dr Nelson 02/22/24 Left message for patient to return call to the office to get scheduled please schedule patient either February [address] Argentina dawson. Name of caller: [facility] Contact phone number: [phone] Relationship to Patient: Patient Provider: Dr. Nelson Practice: [facility] Chief Complaint/Reason for Call: Pt Pt had to reschedule appointment. Please contact pt if appointment is not soon enough, pt is concerned FYI Best time of day caller can be reached: Any Patient advised that office/PCP has 24-48 business hours to return their call: No documented in this encounter [facility] 02-05-2024 Telephone encounter Note Left message for patient to return call to the office to get scheduled please schedule patient either February [address] Argentina dawson. [facility] 02-05-2024 Miscellaneous Notes Left message for patient to return call to the office to get scheduled please schedule patient either February [address] Argentina dawson. Name of caller: [facility] Contact phone number: [phone] Relationship to Patient: Patient Provider: Dr. Nelson Practice: [facility] Chief Complaint/Reason for Call: Pt Pt had to reschedule appointment. Please contact pt if appointment is not soon enough, pt is concerned FYI Best time of day caller can be reached: Any Patient advised that office/PCP has 24-48 business hours to return their call: No documented in this encounter [facility] 02-05-2024 Telephone encounter Note Name of caller: Isauro Contact phone number: [phone] Relationship to Patient: Patient Provider: Dr. Nelson Practice: [facility] Chief Complaint/Reason for Call: Pt Pt had to reschedule appointment. Please contact pt if appointment is not soon enough, pt is concerned FYI Best time of day caller can be reached: Any Patient advised that office/PCP has 24-48 business hours to return their call: No [facility] 01-02-2024 Telephone encounter Note Pharmacy updated. [facility] 01-02-2024 Miscellaneous Notes Pharmacy updated. Name of caller: Isauro Contact phone number: [phone] Relationship to Patient: patient Provider: [place] Practice: [facility] Chief Complaint/Reason for Call: Pt called to report that her antibiotic and Prednisone were not sent to her local [facility] as requested - they were accidentally sent to [facility] by mistake. Please send to [facility] [address] [facility] in [place] listed in her chart instead. Please call once has been sent over. Best time of day caller can be reached: Any Patient advised that office/PCP has 24-48 business hours to return their call: No documented in this encounter [facility] 01-02-2024 Telephone encounter Note Name of caller: Isauro Contact phone number: [phone] Relationship to Patient: patient Provider: [place] Practice: [facility] Chief Complaint/Reason for Call: Pt called to report that her antibiotic and Prednisone were not sent to [facility] local [facility] as requested - they were accidentally sent to [facility] by mistake. Please send to [facility] on [address] in [place] listed in her chart instead. Please call once has been sent over. Best time of day caller can be reached: Any Patient advised that office/PCP has 24-48 business hours to return their call: No [facility] 12-22-2023 Telephone encounter Note LM - called to relay message to pt that she can schedule out into February [facility] 12-22-2023 Miscellaneous Notes LM - called to relay message to pt that she can schedule out into February noted Name of caller: Isauro Contact phone number: [phone] (work number) Relationship to Patient: patient Provider: Argentina Practice: [facility] Chief Complaint/Reason for Call: Patient calling back about 01/22/24 appointment. States she needs something in the afternoon that day due to transportation. States overall she can only do Mondays. Advised patient she has appointment on 02/05/24 but states this is too far out as provider wanted to see her back in 1 month following antibiotic course. No availability. Please advise. Best time of day caller can be reached: Patient will be at work until 5pm but states she can still be reached at number above, which is the number for [employer] where she works. Patient advised that office/PCP has 24-48 business hours to return their call: Yes documented in this encounter [facility] 12-22-2023 Telephone encounter Note noted [facility] 12-22-2023 Telephone encounter Note Name of caller: Isauro Contact phone number: [phone] (work number) Relationship to Patient: patient Provider: [place] Practice: [facility] Chief Complaint/Reason for Call: Patient calling back about 01/22/24 appointment. States she needs something in the afternoon that day due to transportation. States overall she can only do Mondays. Advised patient she has appointment on 02/05/24 but states this is too far out as provider wanted to see her back in 1 month following antibiotic course. No availability. Please advise. Best time of day caller can be reached: Patient will be at work until 5pm but states she can still be reached at number above, which is the number for [employer] where she works. Patient advised that office/PCP has 24-48 business hours to return their call: Yes [facility] 12-21-2023 Telephone encounter Note duplicate [facility] 12-21-2023 Miscellaneous Notes duplicate documented in this encounter [facility] 12-21-2023 Telephone encounter Note Medication name: albuterol (Proventil HFA) 108 (90 Base) MCG/ACT inhaler Medication dosage: 108 mcg (Micrograms) Monthly quantity needed: 6.7g How many day supply requestin days Medication route: inhalation (inhaler) Medication administration time(s): as needed (PRN) If taking medication PRN, reason for taking medication: wheezing,sob If this is a controlled substance do you receive this or any other controlled medication from any other doctor or facility: N/A Ordering provider: argentina Date of last office visit: 07/31/2023 Date of next office visit: 02/05/2024 Date of last refill: (see medication tab): 11/14/22 Updated/Validated preferred pharmacy: Yes Patient instructed to contact the pharmacy prior to picking up the medication: Yes [facility] 12-21-2023 Miscellaneous Notes Medication name: albuterol (Proventil HFA) 108 (90 Base) MCG/ACT inhaler Medication dosage: 108 mcg (Micrograms) Monthly quantity needed: 6.7g How many day supply requestin days Medication route: inhalation (inhaler) Medication administration time(s): as needed (PRN) If taking medication PRN, reason for taking medication: wheezing,sob If this is a controlled substance do you receive this or any other controlled medication from any other doctor or facility: N/A Ordering provider: [place] Date of last office visit: 07/31/2023 Date of next office visit: 02/05/2024 Date of last refill: (see medication tab): 11/14/22 Updated/Validated preferred pharmacy: Yes Patient instructed to contact the pharmacy prior to picking up the medication: Yes documented in this encounter [facility] 12-18-2023 Telephone encounter Note Recent Visits Date Type Provider Dept 07/31/23 Office Visit Gasper Nelson DO [facility] 01/13/23 Office Visit Gasper Nelson DO [facility] Showing recent visits within past 365 days and meeting all other requirements Future Appointments Date Type Provider Dept 02/05/24 Appointment Gasper Nelson DO [facility] Showing future appointments within next 90 days and meeting all other requirements Requested Prescriptions Pending Prescriptions Disp Refills traZODone (Desyrel) 100 MG tablet [Pharmacy Med Name: TRAZODONE HYDROCHLORIDE 100 MG Tablet] 90 tablet 3 Sig: TAKE 1 TABLET (100 MG) BY MOUTH NIGHTLY. esomeprazole (NexIUM) [address] capsule [Pharmacy Med Name: ESOMEPRAZOLE MAGNESIUM 40 MG Capsule Delayed Release] 90 capsule 3 Sig: TAKE 1 CAPSULE EVERY MORNING BEFORE BREAKFAST alendronate (Fosamax) 70 MG tablet [Pharmacy Med Name: ALENDRONATE SODIUM 70 MG Tablet] 12 tablet 3 Sig: TAKE 1 TABLET WEEKLY DIRECTED. SEE PACKAGE FOR ADDITIONAL INSTRUCTIONS venlafaxine XR (Effexor XR) 150 MG 24 hr capsule [Pharmacy Med Name: VENLAFAXINE HYDROCHLORIDEER 150 MG Capsule Extended Release 24 Hour] 90 capsule 3 Sig: TAKE 1 CAPSULE BY MOUTH IN THE MORNING. Provider: Gasper Nelson DO Verified pharmacy: yes Verified day(s) supplied: yes Verified refill(s) needed (previous prescription showing no refills in chart): No - unable to verify prescription refills in chart Have you received any controlled medications from any other provider? No Overdue for visit: No If yes - patient scheduled? Yes Most recent labs completed in chart? N/A [facility] 12-18-2023 Miscellaneous Notes Recent Visits Date Type Provider Dept 07/31/23 Office Visit Gasper Nelson DO [facility] 01/13/23 Office Visit Gasper Nelson DO [facility] Showing recent visits within past 365 days and meeting all other requirements Future Appointments Date Type Provider Dept 02/05/24 Appointment Gasper Nelson DO [facility] Showing future appointments within next 90 days and meeting all other requirements Requested Prescriptions Pending Prescriptions Disp Refills traZODone (Desyrel) 100 MG tablet [Pharmacy Med Name: TRAZODONE HYDROCHLORIDE 100 MG Tablet] 90 tablet 3 Sig: TAKE 1 TABLET (100 MG) BY MOUTH NIGHTLY. esomeprazole (NexIUM) [address] capsule [Pharmacy Med Name: ESOMEPRAZOLE MAGNESIUM 40 MG Capsule Delayed Release] 90 capsule 3 Sig: TAKE 1 CAPSULE EVERY MORNING BEFORE BREAKFAST alendronate (Fosamax) 70 MG tablet [Pharmacy Med Name: ALENDRONATE SODIUM 70 MG Tablet] 12 tablet 3 Sig: TAKE 1 TABLET WEEKLY DIRECTED. SEE PACKAGE FOR ADDITIONAL INSTRUCTIONS venlafaxine XR (Effexor XR) 150 MG 24 hr capsule [Pharmacy Med Name: VENLAFAXINE HYDROCHLORIDEER 150 MG Capsule Extended Release 24 Hour] 90 capsule 3 Sig: TAKE 1 CAPSULE BY MOUTH IN THE MORNING. Provider: Gasper Nelson DO Verified pharmacy: yes Verified day(s) supplied: yes Verified refill(s) needed (previous prescription showing no refills in chart): No - unable to verify prescription refills in chart Have you received any controlled medications from any other provider? No Overdue for visit: No If yes - patient scheduled? Yes Most recent labs completed in chart? N/A documented in this encounter [facility] 08-01-2023 Telephone encounter Note Orders pended for doctor's signature [facility] 08-01-2023 Miscellaneous Notes Orders pended for doctor's signature ----- Message from Gasper Nelson DO sent at 07/31/2023 4:06 PM EST ----- Schedule LDCT for pt to be done in 11/2023 documented in this encounter [facility] 08-01-2023 Telephone encounter Note ----- Message from Gasper Nelson DO sent at 07/31/2023 4:06 PM EST ----- Schedule LDCT for pt to be done in 11/2023 [facility] 07-31-2023 History of Present illness Narrative Images from the original note were not included. [facility] [address] [facility] [id number] Visit type: Established Patient Reason for Visit: Follow-up (6 month med check) Assessment / Plan: Isauro was seen today for follow-up. Diagnoses and all orders for this visit: Chronic obstructive pulmonary disease, unspecified COPD type (HCC) (Primary) Comments: Clinically moderately severe. Add Wixela. She defers CT of the chest, chest x-ray and PFTs. Urged to quit smoking Depression, unspecified depression type Comments: Stable, continue Effexor and trazodone Gastroesophageal reflux disease without esophagitis Hypercholesterolemia - Lipid panel; Future - Lipid panel Other orders - alendronate (Fosamax) 70 MG tablet; TAKE 1 TABLET WEEKLY DIRECTED. SEE PACKAGE FOR ADDITIONAL INSTRUCTIONS - esomeprazole (NexIUM) [address] capsule; TAKE 1 CAPSULE BY MOUTH EVERY MORNING (BEFORE BREAKFAST) - simvastatin (Zocor) 40 MG tablet; Take 1 tablet (40 mg) by mouth Nightly for 180 doses. - traZODone (Desyrel) 100 MG tablet; Take 1 tablet (100 mg) by mouth Nightly. - venlafaxine XR (Effexor XR) 150 MG 24 hr capsule; TAKE 1 CAPSULE BY MOUTH IN THE MORNING. - Fluticasone-Salmeterol (Wixela Inhub) 250-50 MCG/ACT aerosol powder ; Inhale 1 Inhalation in the morning and 1 Inhalation in the evening. Subjective: Patient ID: Ashley Gómez is a 68 y.o. female. HPI long-term smoker presents for refills on antidepressant meds. Generally things are going fair. Unfortunately still smoking a lot and does have a chronic cough. Denies purulent phlegm or fever or significant dyspnea. Has been single for about 8 years. Does not drink alcohol. Generally tries to keep in touch with her siblings and she does work a fair number hours at the [employer] in [place] doing various jobs. Review of Systems denies recent earache headache or chest pain. No purulent phlegm. No substantial dyspnea on exertion. Denies heartburn or dysphagia. No abdominal pain. Bowels are regular. No melena or blood. Rare arthralgias. She does prefer mammogram every other year and will be due in January. Cologuard exam due next year as well she has never had an LDCT of her chest and defers that exam until November of this yea Allergies Allergen Reactions Sulfa Antibiotics Swelling Other reaction(s): Other: See Comments Other reaction(s): U Other reaction(s): Hives Other reaction(s): Hives pulled eye backward Other reaction(s): U Current Outpatient Medications on File Prior to Visit Medication Sig Dispense Refill albuterol (Proventil HFA) 108 (90 Base) MCG/ACT inhaler Inhale 2 puffs every 4 hours as needed for wheezing or shortness of breath. 6.7 g 0 [DISCONTINUED] alendronate (Fosamax) 70 MG tablet TAKE 1 TABLET WEEKLY DIRECTED. SEE PACKAGE FOR ADDITIONAL INSTRUCTIONS 12 tablet 1 [DISCONTINUED] esomeprazole (NexIUM) [address] capsule TAKE 1 CAPSULE BY MOUTH EVERY MORNING (BEFORE BREAKFAST) 90 capsule 1 [DISCONTINUED] simvastatin (Zocor) 40 MG tablet Take 1 tablet (40 mg) by mouth Nightly for 90 doses. 90 tablet 3 [DISCONTINUED] traZODone (Desyrel) 100 MG tablet Take 1 tablet (100 mg) by mouth Nightly. 90 tablet 1 [DISCONTINUED] venlafaxine XR (Effexor XR) 150 MG 24 hr capsule TAKE 1 CAPSULE BY MOUTH IN THE MORNING. 90 capsule 1 No current facility-administered medications on file prior to visit. Patient Active Problem List Diagnosis COPD (chronic obstructive pulmonary disease) (HCC) Osteopenia GERD (gastroesophageal reflux disease) Social History Tobacco Use Smoking status: Every Day Packs/day: 1 Types: Cigarettes Start date: 09/24/2019 Smokeless tobacco: Never Substance Use Topics Alcohol use: Not Currently Alcohol/week: 0.0 standard drinks of alcohol Past Surgical History: Procedure Laterality Date APPENDECTOMY 1965 CHOLECYSTECTOMY [address] Forde- due 2023 TONSILLECTOMY AND ADENOIDECTOMY (HISTORICAL) 1973 Family History Problem Relation Name Age of Onset Pancreatic cancer Mother smoker , age 78 COPD Father coalminers lung, age 79 Stomach cancer Sister Other (oth) Sister covid Accidental Sister fall Cancer Brother Unknown type Heart disease Brother age 58 Colon cancer Brother 55 Other (Other) Brother age 80 of COVID Leukemia Brother No Known Problems Brother No Known Problems Brother No Known Problems Brother Objective: BP 138/78 Pulse 80 Temp 36.6 C (97.8 F) (Temporal) Ht 5' 4 (1.626 m) Wt 119 lb 9.6 oz (54.3 kg) SpO2 94% BMI 20.53 kg/m Physical Exam pleasant cooperative. Well groomed and has good insight and eye contact. Normal oropharynx. No masses. No JVD adenopathy or thyroid lesions. No carotid bruits. Heart is regular without ectopy or murmurs. Lungs have substantial expiratory wheezes bilaterally. No egophony or rales. Is somewhat clear with coughing. Abdomen soft without pain hepatosplenomegaly masses ascites or adenopathy. No femoral bruits. Extremities are pink without edema documented in this encounter [facility] 07-31-2023 History of Present illness Narrative Images from the original note were not included. [facility] [address] [place] [address] [address] [facility] [address] Visit type: Established Patient Reason for Visit: Follow-up (6 month med check) Assessment / Plan: Isauro was seen today for follow-up. Diagnoses and all orders for this visit: Chronic obstructive pulmonary disease, unspecified COPD type (HCC) (Primary) Comments: Clinically moderately severe. Add Wixela. She defers CT of the chest, chest x-ray and PFTs. Urged to quit smoking Depression, unspecified depression type Comments: Stable, continue Effexor and trazodone Gastroesophageal reflux disease without esophagitis Hypercholesterolemia - Lipid panel; Future - Lipid panel Other orders - alendronate (Fosamax) 70 MG tablet; TAKE 1 TABLET WEEKLY DIRECTED. SEE PACKAGE FOR ADDITIONAL INSTRUCTIONS - esomeprazole (NexIUM) [address] capsule; TAKE 1 CAPSULE BY MOUTH EVERY MORNING (BEFORE BREAKFAST) - simvastatin (Zocor) 40 MG tablet; Take 1 tablet (40 mg) by mouth Nightly for 180 doses. - traZODone (Desyrel) 100 MG tablet; Take 1 tablet (100 mg) by mouth Nightly. - venlafaxine XR (Effexor XR) 150 MG 24 hr capsule; TAKE 1 CAPSULE BY MOUTH IN THE MORNING. - Fluticasone-Salmeterol (Wixela Inhub) 250-50 MCG/ACT aerosol powder ; Inhale 1 Inhalation in the morning and 1 Inhalation in the evening. Subjective: Patient ID: Ashley Gómez is a 68 y.o. female. HPI long-term smoker presents for refills on antidepressant meds. Generally things are going fair. Unfortunately still smoking a lot and does have a chronic cough. Denies purulent phlegm or fever or significant dyspnea. Has been single for about 8 years. Does not drink alcohol. Generally tries to keep in touch with her siblings and she does work a fair number hours at the [employer] in [place] doing various jobs. Review of Systems denies recent earache headache or chest pain. No purulent phlegm. No substantial dyspnea on exertion. Denies heartburn or dysphagia. No abdominal pain. Bowels are regular. No melena or blood. Rare arthralgias. She does prefer mammogram every other year and will be due in January. Cologuard exam due next year as well she has never had an LDCT of her chest and defers that exam until November of this yea Allergies Allergen Reactions Sulfa Antibiotics Swelling Other reaction(s): Other: See Comments Other reaction(s): U Other reaction(s): Hives Other reaction(s): Hives pulled eye backward Other reaction(s): U Current Outpatient Medications on File Prior to Visit Medication Sig Dispense Refill albuterol (Proventil HFA) 108 (90 Base) MCG/ACT inhaler Inhale 2 puffs every 4 hours as needed for wheezing or shortness of breath. 6.7 g 0 [DISCONTINUED] alendronate (Fosamax) 70 MG tablet TAKE 1 TABLET WEEKLY DIRECTED. SEE PACKAGE FOR ADDITIONAL INSTRUCTIONS 12 tablet 1 [DISCONTINUED] esomeprazole (NexIUM) [address] capsule TAKE 1 CAPSULE BY MOUTH EVERY MORNING (BEFORE BREAKFAST) 90 capsule 1 [DISCONTINUED] simvastatin (Zocor) 40 MG tablet Take 1 tablet (40 mg) by mouth Nightly for 90 doses. 90 tablet 3 [DISCONTINUED] traZODone (Desyrel) 100 MG tablet Take 1 tablet (100 mg) by mouth Nightly. 90 tablet 1 [DISCONTINUED] venlafaxine XR (Effexor XR) 150 MG 24 hr capsule TAKE 1 CAPSULE BY MOUTH IN THE MORNING. 90 capsule 1 No current facility-administered medications on file prior to visit. Patient Active Problem List Diagnosis COPD (chronic obstructive pulmonary disease) (HCC) Osteopenia GERD (gastroesophageal reflux disease) Social History Tobacco Use Smoking status: Every Day Packs/day: 1 Types: Cigarettes Start date: 09/24/2019 Smokeless tobacco: Never Substance Use Topics Alcohol use: Not Currently Alcohol/week: 0.0 standard drinks of alcohol Past Surgical History: Procedure Laterality Date APPENDECTOMY 1965 CHOLECYSTECTOMY [address] Dat ann 2023 TONSILLECTOMY AND ADENOIDECTOMY (HISTORICAL) 1972 Family History Problem Relation Name Age of Onset Pancreatic cancer Mother smoker , age 78 COPD Father coalminers lung, age 79 Stomach cancer Sister Other (oth) Sister covid Accidental Sister fall Cancer Brother Unknown type Heart disease Brother age 58 Colon cancer Brother 55 Other (Other) Brother age 80 of COVID Leukemia Brother No Known Problems Brother No Known Problems Brother No Known Problems Brother Objective: BP 138/78 Pulse 80 Temp 36.6 C (97.8 F) (Temporal) Ht 5' 4 (1.626 m) Wt 119 lb 9.6 oz (54.3 kg) SpO2 94% BMI 20.53 kg/m Physical Exam pleasant cooperative. Well groomed and has good insight and eye contact. Normal oropharynx. No masses. No JVD adenopathy or thyroid lesions. No carotid bruits. Heart is regular without ectopy or murmurs. Lungs have substantial expiratory wheezes bilaterally. No egophony or rales. Is somewhat clear with coughing. Abdomen soft without pain hepatosplenomegaly masses ascites or adenopathy. No femoral bruits. Extremities are pink without edema documented in this encounter [facility] 07-31-2023 Miscellaneous Notes Addended by: ROSALIND QUINTERO on: 12/18/2023 08:32 AM Modules accepted: Orders documented in this encounter [facility] 07-31-2023 Note Addended by: ROSALIND QUINTERO on: 12/18/2023 08:32 AM Modules accepted: Orders [facility] 03-14-2023 Telephone encounter Note Signed Handicap placard signed and mailed to patient per their request. [facility] 03-14-2023 Miscellaneous Notes Signed Handicap plactram signed and mailed to patient per their request. Rx loaded Name of caller: Isauro Contact phone number: [phone] Relationship to Patient: patient Provider: [place] Practice: [facility] Chief Complaint/Reason for Call: Pt states she needs a script for a handicap placard to hang in her car. She will need 2 placards. Please mail scripts to pt's home as soon as possible. Please call pt to advise. Best time of day caller can be reached: any Patient advised that office/PCP has 24-48 business hours to return their call: Yes documented in this encounter [facility] 03-14-2023 Telephone encounter Note Rx loaded [facility] 03-14-2023 Telephone encounter Note Name of caller: Isauro Contact phone number: [phone] Relationship to Patient: patient Provider: [place] Practice: [facility] Chief Complaint/Reason for Call: Pt states she needs a script for a handicap placard to hang in her car. She will need 2 placards. Please mail scripts to pt's home as soon as possible. Please call pt to advise. Best time of day caller can be reached: any Patient advised that office/PCP has 24-48 business hours to return their call: Yes [facility] 03-02-2023 Telephone encounter Note Orders closed [facility] 03-02-2023 Miscellaneous Notes Orders closed Talked to patient and she stated that she only smoked on and off since was [age] years old and no more than 10 -12 cigarettes per day at a time. She said when she wasn't smoking it might be like 5 years of not smoking and then go back to it. Therefore she does not meet the requirements that is stated to get a CT. Placed call to patient to discuss provider questions of: Call the patient and specifically ask her how many cigarettes she smokes on the average per day and how long she has been doing it. Message left on voicemail to return call. Pt doesn't fit criteria for a CT-Lung screen. Pt needs to have a 20 year smoking history of 1-pack a day or 15 year history with 2-pack a day. Can orders be cancelled? Patient called in and scheduled her CT Lung screening. The diagnosis code of F17.200 failed for Medical Necessity. Please correct diagnosis code on order. Thank you documented in this encounter [facility] 03-01-2023 Telephone encounter Note Talked to patient and she stated that she only smoked on and off since was [age] years old and no more than 10 -12 cigarettes per day at a time. She said when she wasn't smoking it might be like 5 years of not smoking and then go back to it. Therefore she does not meet the requirements that is stated to get a CT. [facility] 02-28-2023 Telephone encounter Note Placed call to patient to discuss provider questions of: Call the patient and specifically ask her how many cigarettes she smokes on the average per day and how long she has been doing it. Message left on voicemail to return call. [facility] 02-28-2023 Miscellaneous Notes Placed call to patient to discuss provider questions of: Call the patient and specifically ask her how many cigarettes she smokes on the average per day and how long she has been doing it. Message left on voicemail to return call. Pt doesn't fit criteria for a CT-Lung screen. Pt needs to have a 20 year smoking history of 1-pack a day or 15 year history with 2-pack a day. Can orders be cancelled? Patient called in and scheduled her CT Lung screening. The diagnosis code of F17.200 failed for Medical Necessity. Please correct diagnosis code on order. Thank you documented in this encounter [facility] 02-28-2023 Telephone encounter Note Pt doesn't fit criteria for a CT-Lung screen. Pt needs to have a 20 year smoking history of 1-pack a day or 15 year history with 2-pack a day. Can orders be cancelled? [facility] 02-27-2023 Telephone encounter Note Patient called in and scheduled her CT Lung screening. The diagnosis code of F17.200 failed for Medical Necessity. Please correct diagnosis code on order. Thank you [facility] 02-27-2023 Miscellaneous Notes Patient called in and scheduled her CT Lung screening. The diagnosis code of F17.200 failed for Medical Necessity. Please correct diagnosis code on order. Thank you documented in this encounter [facility] 01-13-2023 Telephone encounter Note Orders pended for doctor's signature [facility] 01-13-2023 Miscellaneous Notes Orders pended for doctor's signature documented in this encounter [facility] 01-13-2023 History of Present illness Narrative Images from the original note were not included. [facility] [address] [place] [id number] Visit type: Established Patient Reason for Visit: Follow-up (New to provider, 4 month med check) Assessment / Plan: Ashley was seen today for follow-up. Diagnoses and all orders for this visit: Chronic obstructive pulmonary disease, unspecified COPD type (HCC) (Primary) Comments: Uncontrolled, encourage smoking cessation intake albuterol 2 puffs 3 times daily Hypercholesterolemia Comments: Stable, check lab continue Zocor Orders: - Comprehensive metabolic panel; Future - Lipid panel; Future - TSH; Future - Comprehensive metabolic panel - Lipid panel - TSH Gastroesophageal reflux disease without esophagitis Smoker Comments: Noted concern, CT chest. Smoking cessation urged Orders: - CBC auto differential; Future - CBC auto differential Depression, unspecified depression type Comments: Stable, continue Effexor and desyrel Other orders - alendronate (Fosamax) 70 MG tablet; TAKE 1 TABLET WEEKLY DIRECTED. SEE PACKAGE FOR ADDITIONAL INSTRUCTIONS - esomeprazole (NexIUM) [address] capsule; TAKE 1 CAPSULE BY MOUTH EVERY MORNING (BEFORE BREAKFAST) - simvastatin (Zocor) 10 MG tablet; Take 1 tablet (10 mg) by mouth Nightly. - traZODone (Desyrel) 100 MG tablet; Take 1 tablet (100 mg) by mouth Nightly. - venlafaxine XR (Effexor XR) 150 MG 24 hr capsule; TAKE 1 CAPSULE BY MOUTH IN THE MORNING. - Pneumococcal conjugate vaccine 20-valent IM (PREVNAR 20) Subjective: Patient ID: Ashley Gómez is a 67 y.o. female. HPI long-term smoker history of COPD and depression presents for first-time evaluation. Past medical, surgical, family and social history reviewed and chart updated appropriately. Overall she feels well. She states she stopped smoking about a year and half ago but started again. Has been smoking about 4 months. No change in phlegm or fever. No chest pain or pleurisy. No hemoptysis. No night sweats fevers or chills. Long-term anxiety and depression and meds have been effective. Presently living alone. Her of lung cancer about 8 years ago. Review of Systems she does enjoy her job. Works hard physically. Able to get by and does not use albuterol much at all. No recent earache sore throat or cough. Does need pneumococcal vaccination. Denies chest pain palpitations or substantial dyspnea on exertion. No orthopnea claudication or change in mild pedal edema. No abdominal pain. No heartburn. No dysphagia. No early satiety. No abdominal pain. No melena or blood. Cologuard exam negative a few years ago. She defers mammograms every other year. She has no breast complaints. Rare arthralgia of her shoulder and neck but nothing new. No recent falls or injury. Allergies Allergen Reactions Sulfa Antibiotics Swelling Other reaction(s): Other: See Comments Other reaction(s): U Other reaction(s): Hives Other reaction(s): Hives pulled eye backward Current Outpatient Medications on File Prior to Visit Medication Sig Dispense Refill albuterol (Proventil HFA) 108 (90 Base) MCG/ACT inhaler Inhale 2 puffs every 4 hours as needed for wheezing or shortness of breath. 6.7 g 0 [DISCONTINUED] alendronate (Fosamax) 70 MG tablet TAKE 1 TABLET WEEKLY DIRECTED. SEE PACKAGE FOR ADDITIONAL INSTRUCTIONS 12 tablet 0 [DISCONTINUED] esomeprazole (NexIUM) [address] capsule TAKE 1 CAPSULE BY MOUTH EVERY MORNING (BEFORE BREAKFAST) 90 capsule 0 [DISCONTINUED] simvastatin (Zocor) 10 MG tablet Take 1 tablet (10 mg) by mouth Nightly. 90 tablet 0 [DISCONTINUED] traZODone (Desyrel) 100 MG tablet Take 1 tablet (100 mg) by mouth Nightly. 90 tablet 0 [DISCONTINUED] venlafaxine XR (Effexor XR) 150 MG 24 hr capsule TAKE 1 CAPSULE BY MOUTH IN THE MORNING. 90 capsule 0 No current facility-administered medications on file prior to visit. Patient Active Problem List Diagnosis COPD (chronic obstructive pulmonary disease) (HCC) Osteopenia GERD (gastroesophageal reflux disease) Social History Tobacco Use Smoking status: Every Day Packs/day: 1.00 Types: Cigarettes Start date: 09/24/2019 Smokeless tobacco: Never Substance Use Topics Alcohol use: Not Currently Alcohol/week: 0.0 standard drinks Past Surgical History: Procedure Laterality Date APPENDECTOMY 1965 CHOLECYSTECTOMY [address] Forde- marissa 2023 TONSILLECTOMY AND ADENOIDECTOMY (HISTORICAL) 1973 Family History Problem Relation Name Age of Onset Pancreatic cancer Mother smoker , age 78 COPD Father coalminers lung, age 79 Stomach cancer Sister Other (oth) Sister covid Accidental Sister fall Cancer Brother Unknown type Heart disease Brother age 58 Colon cancer Brother 55 Other (Other) Brother age 80 of COVID Leukemia Brother No Known Problems Brother No Known Problems Brother No Known Problems Brother Objective: BP 118/73 Pulse 89 Temp 36.4 C (97.5 F) Ht 5' 4 (1.626 m) Wt 115 lb (52.2 kg) SpO2 99% BMI 19.74 kg/m Physical Exam Much older appearing than stated age. Alert and pleasant cooperative. Well-hydrated. Nonicteric. Normal oropharynx. No adenopathy neck masses JVD carotid bruits or thyroid lesions. Physiologic reflexes. Heart is regular without gallops murmurs or ectopy. Lungs have coarse crackles in both bases and upper expiratory wheezes that clear with cough. Abdomen scaphoid nontender without pain hepatosplenomegaly masses or bruits. No ascites. Femoral pulses are fair. Extremities have fair posterior tibial pulses. Slight edema of the dorsum of the feet. Normal range of motion of hips and knees. documented in this encounter [facility] 11-14-2022 History of Present illness Narrative Images from the original note were not included. [facility] [address] [facility] [address] Dept: [phone] Dept Loc: [phone] Visit type: Established Patient Reason for Visit: Cough (X Monday ) and Sore Throat Assessment and Plan 1. COPD with acute exacerbation (CMS/HCC) (HCC) Comments: didn't want to take full strength prednisone, agreeable to taking medrol dose manuel Orders: - albuterol (Proventil HFA) 108 (90 Base) MCG/ACT inhaler; Inhale 2 puffs every 4 hours as needed for wheezing or shortness of breath., Starting Mon11/14/2022, Until Mon11/14/2023 at 2359, Normal - doxycycline (Vibramycin) 100 MG capsule; Take 1 capsule (100 mg) by mouth 2 times daily for 10 days. Take with at least 8 ounces (large glass) of water, do not lie down for 30 minutes after, Starting Mon11/14/2022, Until Mon11/24/2022, Normal - benzonatate (Tessalon) 100 MG capsule; Take 1 capsule (100 mg) by mouth 3 times daily as needed for cough for up to 10 days. Do not crush or chew., Starting Mon11/14/2022, Until Mon11/24/2022 at 2359, Normal - methylPREDNISolone (Medrol Dospak) 4 MG tablets; Take as directed on package., Normal 2. Lower resp. tract infection Comments: acute lower tract infection Orders: - albuterol (Proventil HFA) 108 (90 Base) MCG/ACT inhaler; Inhale 2 puffs every 4 hours as needed for wheezing or shortness of breath., Starting Mon11/14/2022, Until Mon11/14/2023 at 2359, Normal - doxycycline (Vibramycin) 100 MG capsule; Take 1 capsule (100 mg) by mouth 2 times daily for 10 days. Take with at least 8 ounces (large glass) of water, do not lie down for 30 minutes after, Starting Mon11/14/2022, Until Mon11/24/2022, Normal - benzonatate (Tessalon) 100 MG capsule; Take 1 capsule (100 mg) by mouth 3 times daily as needed for cough for up to 10 days. Do not crush or chew., Starting 11/14/2022, Until Ca 11/24/2022 at 2359, Normal 3. Smoking Comments: smokes less than 1 pk per day, not interested in quitting at this time Follow up if symptoms worsen or fail to improve, for Next scheduled follow-up. Patient is in no acute distress at this time. She is conversant without difficulty. We did talk about the use of prednisone she states she cannot take full-strength prednisone but is agreeable to take a Medrol Dosepak. She states she knows the difference between her normal smoker's cough and a sick cough. She states this 1 is gotten progressively worse over the last 4 days. She denies any dysphonia dysphagia no problems eating during swallowing but is concerned with the progression of the cough congestion. She is wheezing on exam but no distress she has been on an inhaler before we will place her back on an inhaler and antibiotics we did discuss smoking cessation she is not currently interested. Encouraged to drink plenty of fluids get plenty of rest and contact if symptoms worsen. Should she start experiencing any chest pain or worsening shortness of breath or difficulty breathing seek evaluation in the emergency room. Subjective HPI This is a 67 yo female with history of acid reflux, hyperlipidemia and anxiety depression. Presents to the office today for cough and congestion x4 days. She is coughing a lot bringing up phlegm. Unsure of the color - clear to brown, but drinks a lot of coffee. Not blowing anything out of her nose. Has had a dull headache over the top of her head. She gets a sharp pain in her head when she coughs. Has some wheezing and sob with the coughing. Woke up yesterday with sore throat. Denies fever, chest pain coughing up blood, or dizziness. Pt has COPD. Pt asking for an antibiotic to be sent to the pharmacy. Severe wet sounding cough. Can tell which is cigarette cough, vs sick cough this feels like sick cough. No abdominal pain, had some diarrhea but settled down. NO urinary symptoms, appetite is good. Review of Systems Constitutional: Negative for chills and fever. HENT: Positive for congestion and sore throat. Negative for sinus pressure, sinus pain and trouble swallowing. Respiratory: Positive for cough and wheezing. Negative for shortness of breath. Cardiovascular: Negative for chest pain, palpitations and leg swelling. Gastrointestinal: Negative for abdominal pain, diarrhea, nausea and vomiting. Musculoskeletal: Negative for myalgias. Neurological: Positive for headaches (reproducible with cough, not constant). Negative for dizziness and light-headedness. All other systems reviewed and are negative. Allergies Allergen Reactions Sulfa Antibiotics Swelling Other reaction(s): Other: See Comments Other reaction(s): U Other reaction(s): Hives Other reaction(s): Hives pulled eye backward Outpatient Medications Prior to Visit Medication Sig Dispense Refill alendronate (Fosamax) 70 MG tablet TAKE 1 TABLET WEEKLY DIRECTED. SEE PACKAGE FOR ADDITIONAL INSTRUCTIONS 12 tablet 0 esomeprazole (NexIUM) [address] capsule TAKE 1 CAPSULE BY MOUTH EVERY MORNING (BEFORE BREAKFAST) 90 capsule 0 simvastatin (Zocor) 10 MG tablet Take 1 tablet (10 mg) by mouth Nightly. 90 tablet 0 traZODone (Desyrel) 100 MG tablet Take 1 tablet (100 mg) by mouth Nightly. 90 tablet 0 venlafaxine XR (Effexor XR) 150 MG 24 hr capsule TAKE 1 CAPSULE BY MOUTH IN THE MORNING. 90 capsule 0 No facility-administered medications prior to visit. Past Medical History: Diagnosis Date Anxiety COPD (chronic obstructive pulmonary disease) ([facility]) Depression Family history of heart disease Smoker Social History Tobacco Use Smoking status: Every Day Packs/day: 1.00 Types: Cigarettes Start date: 09/24/2019 Smokeless tobacco: Never Substance Use Topics Alcohol use: Not Currently Alcohol/week: 0.0 standard drinks Past Surgical History: Procedure Laterality Date APPENDECTOMY CHOLECYSTECTOMY TONSILLECTOMY AND ADENOIDECTOMY (HISTORICAL) Family History Problem Relation Name Age of Onset Cancer Brother 60 Unknown type Heart disease Brother 58 Heart disease Father 76 Cancer Father 76 Unknown source Other ([id number]) Mother 77 [employer]min[employer] long Cancer Sister 73 Unknown type Objective BP 138/80 (BP Location: Left arm, Patient Position: Sitting, BP Cuff Size: Large adult) Pulse 82 Temp 36.7 C (98 F) (Temporal) Ht 5' 4 (1.626 m) Wt 120 lb (54.4 kg) SpO2 95% BMI 20.60 kg/m Physical Exam Constitutional: General: She is not in acute distress. Appearance: Normal appearance. She is normal weight. She is not ill-appearing, toxic-appearing or diaphoretic. HENT: Right Ear: Tympanic membrane and ear canal normal. Left Ear: Tympanic membrane and ear canal normal. Mouth/Throat: Mouth: Mucous membranes are moist. Pharynx: Oropharynx is clear. Eyes: Extraocular Movements: Extraocular movements intact. Pupils: Pupils are equal, round, and reactive to light. Cardiovascular: Rate and Rhythm: Normal rate and regular rhythm. Heart sounds: Normal heart sounds. Pulmonary: Effort: Pulmonary effort is normal. No respiratory distress. Breath sounds: No stridor. Wheezing and rales present. No rhonchi. Abdominal: General: Bowel sounds are normal. There is no distension. Palpations: Abdomen is soft. Tenderness: There is no abdominal tenderness. Musculoskeletal: Cervical back: Normal range of motion and neck supple. No rigidity or tenderness. Lymphadenopathy: Cervical: No cervical adenopathy. Skin: General: Skin is warm and dry. Neurological: Mental Status: She is alert. Psychiatric: Mood and Affect: Mood normal. Data Reviewed and Summarized Labs: Imaging/Testing: Siomara Estrada PA-C 11/14/2022 Please note that portions of this note may have been completed with voice recognition software. Documentation reviewed prior to signing but minor errors in special order jeweler may have occurred. documented in this encounter [facility] 11-14-2022 Telephone encounter Note Triage message reviewed with clinical staff. Patient appointment confirmed. Siomara will assess at appointment visit. [facility] 11-14-2022 Miscellaneous Notes Triage message reviewed with clinical staff. Patient appointment confirmed. Siomara will assess at appointment visit. S: Patient spoke with [facility] nurse regarding cough and chest congestion B: Onset of symptoms/concern 4 days A: Pt has a lot of congestion in chest for the past 4 days. She is coughing a lot bringing up phlegm. Unsure of the color - clear to brown, but drinks a lot of coffee. Not blowing anything out of her nose. Has had a dull headache over the top of her head. She gets a sharp pain in her head when she coughs. Has some wheezing and sob with the coughing. Woke up yesterday with sore throat. Denies fever, chest pain coughing up blood, or dizziness. Pt has COPD. Pt asking for an antibiotic to be sent to the pharmacy. R: Pt scheduled for an appointment on 11-14-22 at 11:40 am with MARIANNE Babb. Patient understands care advice. Instructed to call back with new or worsening symptoms. Reason for Disposition Known COPD or other severe lung disease (i.e., bronchiectasis, cystic fibrosis, lung surgery) and worsening symptoms (i.e., increased sputum purulence or amount, increased breathing difficulty) Answer Assessment - Initial Assessment Questions 1. ONSET: When did the cough begin? 4 days 2. SEVERITY: How bad is the cough today? productibe 3. SPUTUM: Describe the color of your sputum (none, dry cough; clear, white, yellow, green) Clear to brown 4. HEMOPTYSIS: Are you coughing up any blood? If so ask: How much? (flecks, streaks, tablespoons, etc.) no 5. DIFFICULTY BREATHING: Are you having difficulty breathing? If Yes, ask: How bad is it? (e.g., mild, moderate, severe) - MILD: No SOB at rest, mild SOB with walking, speaks normally in sentences, can lie down, no retractions, pulse < 100. - MODERATE: SOB at rest, SOB with minimal exertion and prefers to sit, cannot lie down flat, speaks in phrases, mild retractions, audible wheezing, pulse 100-120. - SEVERE: Very SOB at rest, speaks in single words, struggling to breathe, sitting hunched forward, retractions, pulse > 120 Wheezing and sob with the cough 6. FEVER: Do you have a fever? If Yes, ask: What is your temperature, how was it measured, and when did it start? no 7. CARDIAC HISTORY: Do you have any history of heart disease? (e.g., heart attack, congestive heart failure) no 8. LUNG HISTORY: Do you have any history of lung disease? (e.g., pulmonary embolus, asthma, emphysema) COPD 9. PE RISK FACTORS: Do you have a history of blood clots? (or: recent major surgery, recent prolonged travel, bedridden) no 10. OTHER SYMPTOMS: Do you have any other symptoms? (e.g., runny nose, wheezing, chest pain) wheezing 11. : Is there any chance you are ? When was your last menstrual period? no 12. TRAVEL: Have you traveled out of the country in the last month? (e.g., travel history, exposures) no Protocols used: [id number] documented in this encounter [facility] 11-14-2022 Telephone encounter Note S: Patient spoke with [facility] nurse regarding cough and chest congestion B: Onset of symptoms/concern 4 days A: Pt has a lot of congestion in chest for the past 4 days. She is coughing a lot bringing up phlegm. Unsure of the color - clear to brown, but drinks a lot of coffee. Not blowing anything out of her nose. Has had a dull headache over the top of her head. She gets a sharp pain in her head when she coughs. Has some wheezing and sob with the coughing. Woke up yesterday with sore throat. Denies fever, chest pain coughing up blood, or dizziness. Pt has COPD. Pt asking for an antibiotic to be sent to the pharmacy. R: Pt scheduled for an appointment on 11-14-22 at 11:40 am with MARIANNE Babb. Patient understands care advice. Instructed to call back with new or worsening symptoms. Reason for Disposition Known COPD or other severe lung disease (i.e., bronchiectasis, cystic fibrosis, lung surgery) and worsening symptoms (i.e., increased sputum purulence or amount, increased breathing difficulty) Answer Assessment - Initial Assessment Questions 1. ONSET: When did the cough begin? 4 days 2. SEVERITY: How bad is the cough today? productibe 3. SPUTUM: Describe the color of your sputum (none, dry cough; clear, white, yellow, green) Clear to brown 4. HEMOPTYSIS: Are you coughing up any blood? If so ask: How much? (flecks, streaks, tablespoons, etc.) no 5. DIFFICULTY BREATHING: Are you having difficulty breathing? If Yes, ask: How bad is it? (e.g., mild, moderate, severe) - MILD: No SOB at rest, mild SOB with walking, speaks normally in sentences, can lie down, no retractions, pulse < 100. - MODERATE: SOB at rest, SOB with minimal exertion and prefers to sit, cannot lie down flat, speaks in phrases, mild retractions, audible wheezing, pulse 100-120. - SEVERE: Very SOB at rest, speaks in single words, struggling to breathe, sitting hunched forward, retractions, pulse > 120 Wheezing and sob with the cough 6. FEVER: Do you have a fever? If Yes, ask: What is your temperature, how was it measured, and when did it start? no 7. CARDIAC HISTORY: Do you have any history of heart disease? (e.g., heart attack, congestive heart failure) no 8. LUNG HISTORY: Do you have any history of lung disease? (e.g., pulmonary embolus, asthma, emphysema) COPD 9. PE RISK FACTORS: Do you have a history of blood clots? (or: recent major surgery, recent prolonged travel, bedridden) no 10. OTHER SYMPTOMS: Do you have any other symptoms? (e.g., runny nose, wheezing, chest pain) wheezing 11. : Is there any chance you are ? When was your last menstrual period? no 12. TRAVEL: Have you traveled out of the country in the last month? (e.g., travel history, exposures) no Protocols used: [id number] [facility] 10-20-2022 Telephone encounter Note X-ray faxed to [facility] per patient request. Also called patient and let her know it was faxed. [facility] 10-20-2022 Miscellaneous Notes X-ray faxed to [facility] per patient request. Also called patient and let her know it was faxed. Name of caller: [facility] Contact phone number: [phone] Relationship to Patient: patient Provider: Practice: [facility] Chief Complaint/Reason for Call: Patient calling and states [facility] did not get her orders for the x-ray. Patient requesting it be re sent. Patient did not have a fax number. Best time of day caller can be reached: any Patient advised that office/PCP has 24-48 business hours to return their call: no documented in this encounter [facility] 10-20-2022 Telephone encounter Note Name of caller: [facility] Contact phone number: [phone] Relationship to Patient: patient Provider: Practice: [facility] Chief Complaint/Reason for Call: Patient calling and states [facility] did not get her orders for the x-ray. Patient requesting it be re sent. Patient did not have a fax number. Best time of day caller can be reached: any Patient advised that office/PCP has 24-48 business hours to return their call: no [facility] 10-18-2022 Telephone encounter Note I called this patient regarding her chest x-ray. She states she went to [facility] but they did not have the order. According to the record the order was faxed. Patient will call the hospital and see if now have the order. [facility] 10-18-2022 Miscellaneous Notes I called this patient regarding her chest x-ray. She states she went to [facility] but they did not have the order. According to the record the order was faxed. Patient will call the hospital and see if now have the order. Faxed Name of caller: Shayy Contact phone number: [phone] Relationship to Patient: [facility] Provider: Dr. Davila Practice: [facility] Chief Complaint/Reason for Call: Shayy states the patient is currently at [facility] trying to complete her 10/03/22 XR Chest, 2 views; however, the patient's orders has not been received. Shayy states she would like the office to fax the patient's 10/03/22 XR Chest orders to her at fax number: [phone]. Please contact Shayy and advise. Best time of day caller can be reached: Any Patient advised that office/PCP has 24-48 business hours to return their call: No documented in this encounter [facility] 10-17-2022 Telephone encounter Note Faxed [facility] 10-17-2022 Telephone encounter Note Name of caller: Shayy Contact phone number: [phone] Relationship to Patient: [facility] Provider: Dr. Davila Practice: [facility] Chief Complaint/Reason for Call: Shayy states the patient is currently at [facility] trying to complete her 10/03/22 XR Chest, 2 views; however, the patient's orders has not been received. Shayy states she would like the office to fax the patient's 10/03/22 XR Chest orders to her at fax number: [phone]. Please contact Shayy and advise. Best time of day caller can be reached: Any Patient advised that office/PCP has 24-48 business hours to return their call: No [facility] 10-04-2022 Telephone encounter Note I was called the answering service patient complaining of of a cough. I called patient who admits to a cough and a slight wheeze. She denies being short of breath. Temperature was 101. She just checked her pulse oximeter which was 91%. Patient checked at home covid test that was negative yesterday. She did not get the chest x-ray that was ordered. Patient requests Z-Manuel sent. I told patient that with a temperature of 101 should really go to the emergency room. She is not interested. [facility] 10-04-2022 Miscellaneous Notes I was called the answering service patient complaining of of a cough. I called patient who admits to a cough and a slight wheeze. She denies being short of breath. Temperature was 101. She just checked her pulse oximeter which was 91%. Patient checked at home covid test that was negative yesterday. She did not get the chest x-ray that was ordered. Patient requests Z-Manuel sent. I told patient that with a temperature of 101 should really go to the emergency room. She is not interested. documented in this encounter [facility] 10-03-2022 History of Present illness Narrative Images from the original note were not included. [facility] [address] [facility] [id number] Chief Complaint: Ashley Gómez is an 67 y.o. female here for an annual wellness visit. 67-year-old female with a history of COPD, anxiety, depression and hypercholesterolemia presents to the office to have a Medicare annual evaluation. Assessment/Plan : Diagnosis Plan 1. Medicare annual wellness visit, subsequent 2. Cough, unspecified type XR chest 2 views Z-Manuel. Advised patient to get a COVID test. Chest x-ray has been ordered 3. Chronic obstructive pulmonary disease, unspecified COPD type (HCC) Stable 4. Anxiety Controlled with Effexor 5. Depression, unspecified depression type Controlled with Effexor 6. Hypercholesterolemia Lipid panel ALT AST Lipid panel ALT AST Will need lipid profile, ALT and AST. Continue simvastatin. 7. Mammogram declined 8. Colonoscopy refused Problem List Items Addressed This Visit Respiratory Chronic obstructive pulmonary disease, unspecified COPD type (HCC) Other Visit Diagnoses Medicare annual wellness visit, subsequent - Primary Cough, unspecified type Z-Manuel. Advised patient to get a COVID test. Chest x-ray has been ordered Relevant Orders XR chest 2 views Anxiety Controlled with Effexor Depression, unspecified depression type Controlled with Effexor Hypercholesterolemia Will need lipid profile, ALT and AST. Continue simvastatin. Relevant Orders Lipid panel ALT AST Mammogram declined Colonoscopy refused I have reviewed and reconciled the medication list with the patient today. Current Outpatient Medications Medication Sig Dispense Refill alendronate (Fosamax) 70 MG tablet TAKE 1 TABLET WEEKLY DIRECTED. SEE PACKAGE FOR ADDITIONAL INSTRUCTIONS 12 tablet 0 esomeprazole (NexIUM) [address] capsule TAKE 1 CAPSULE BY MOUTH EVERY MORNING (BEFORE BREAKFAST) 90 capsule 0 simvastatin (Zocor) 10 MG tablet Take 1 tablet (10 mg) by mouth Nightly. 90 tablet 0 traZODone (Desyrel) 100 MG tablet Take 1 tablet (100 mg) by mouth Nightly. 90 tablet 0 venlafaxine XR (Effexor XR) 150 MG 24 hr capsule TAKE 1 CAPSULE BY MOUTH IN THE MORNING. 90 capsule 0 No current facility-administered medications for this visit. Allergies Meds The following health maintenance schedule was reviewed with the patient and provided in printed form in the after visit summary: Health Maintenance Topic Date Due Hepatitis B Vaccines (1 of 3 - 3-dose series) 1955 Hepatitis C Screening Never done DTaP/Tdap/Td Vaccines (1 - Tdap) Never done Zoster Vaccines (1 of 2) Never done Pneumococcal Vaccine: 65+ Years (2 - PCV) 02/03/2022 Mammogram 01/11/2023 Colorectal Cancer Screening 02/24/2024 Lipid Panel 06/04/2026 Influenza Vaccine Completed Bone Density Scan Completed COVID-19 Vaccine Completed HIB Vaccines Aged Out IPV Vaccines Aged Out Hepatitis A Vaccines Aged Out Meningococcal Vaccine Aged Out Rotavirus Vaccines Aged Out HPV Vaccines Aged Out List of current healthcare providers: Patient Care Team: Danish Davila DO as PCP - General Orders Placed This Encounter Procedures XR chest 2 views Standing Status: Future Standing Expiration Date: 10/03/2023 Lipid panel Standing Status: Future Number of Occurrences: 1 Standing Expiration Date: 10/18/2023 ALT Standing Status: Future Number of Occurrences: 1 Standing Expiration Date: 10/18/2023 AST Standing Status: Future Number of Occurrences: 1 Standing Expiration Date: 10/18/2023 Subjective : Review of Systems Constitutional: Negative for appetite change, fatigue, fever and unexpected weight change. HENT: Positive for congestion (nasal for 4 days). Has had clear phlegm. Eyes: Negative for visual disturbance. Respiratory: Positive for cough (4 days off and on). Negative for chest tightness and shortness of breath. Cough is nonproductive. Patient is try to quit smoking again Cardiovascular: Negative for chest pain and palpitations. Gastrointestinal: Negative for abdominal pain, blood in stool, constipation and diarrhea. Patient is not interested in colonoscopy. GERD symptoms controlled with Nexium. EGD done 2013. Not interested in having another EGD done Endocrine: Negative for polydipsia and polyuria. Genitourinary: Negative for difficulty urinating and frequency. Patient does not have female care provided. Not interested in breast examination or getting a mammogram. Musculoskeletal: Negative for arthralgias. Skin: Negative for rash. Neurological: Negative for headaches. Psychiatric/Behavioral: Patient takes trazodone to help with sleep. Effexor is effective for both anxiety and depression. She has taken this combination for several years Physical Exam HENT: Ears: Comments: Cerumen left ear canal Mouth/Throat: Comments: Dentures Neck: Thyroid: No thyromegaly. Vascular: No carotid bruit. Cardiovascular: Rate and Rhythm: Normal rate and regular rhythm. Heart sounds: No murmur heard. Pulmonary: Comments: Crackles right anterior lung baer Abdominal: Palpations: There is no mass. Tenderness: There is no abdominal tenderness. Musculoskeletal: Right lower leg: No edema. Left lower leg: No edema. Comments: Pulses present both feet Lymphadenopathy: Cervical: No cervical adenopathy. Skin: Findings: No rash. Neurological: Mental Status: She is alert. Health Risk Assessment: General In general, how would you say your health is?: Good In the past 7 days, have you experienced any of the following: New or Increased Pain, New or Increased Fatigue, Loneliness, Social Isolation, Stress or Anger?: No Do you get the social and emotional suppport you need?: Yes Interventions: Patient feels that her health is good. Health Habits / Nutrition On average, how many days per week do you engage in moderate to strenous exercise (like a brisk walk)?: (!) 0 days On average, how man minutes do you engage in exercise at this level?: (!) 0 min Have you lost any weight without trying in the past 3 months? : No Have you seen the dentist within the past year?: (!) No Interventions: Patient does not exercise. She has not seen a dentist within the last year. She has false teeth. Hearing / Vision Do you or your family notice any trouble with your hearing that hasn't been managed with hearing aids?: No Do you have difficulty driving, watching TV, or doing any of your daily activities because of your eyesight?: No Have you had an eye exam within the past year?: (!) No Vision Screening Right eye Left eye Both eyes Without correction With correction 20/20 20/25 20/20 Interventions: Patient has not had an eye examination within the last year. She will be making an appointment Safety Do you have a working smoke detector?: Yes Do you have any tripping hazards - loose or unsecured carpets or rugs?: No Do you have any tripping hazards - clutter in doorways, halls, or stairs?: No Do you have either shower bars, grab bars, non-slip mats or non-slip surfaces in your shower or bathtub? : Yes Do all your stairways have a railing or banister? : Yes Do you fasten your seatbelt when you are in a car?: Yes Interventions: No concerns ADL In the past 7 days, did you need help from others to perform any of the following everyday activities: Eating, dressing, grooming,bathing, toileting, or walking / balance? : No In the past 7 days, did you need help from others to take care of any of the following: laundry, housekeeping, banking / finances,shopping, telephone use, food preparation, transportation, or taking medications? : No Interventions: Patient does not need assistance with ADLs Living Will Do you have a living will?: No Interventions: Patient does not have a living will. Cognitive: Cognitive Screening: Mini-Cog Clock Drawing Test (CDT): 2 Words Recalled: 3 (used words red dog cat) Total Score: 5 Total Score Interpretation: Normal Mini-Cog Interventions: No concerns with memory Fall Risk: Fall Risk One or more falls in the last year:: No Advised to use a cane or walker to get around safely:: No Feels unsteady when walking:: No Steadies self on furniture while walking at home:: No Worried about falling:: No Interventions: No concerns about falling Depression Screening: Over the past 2 weeks, how often have you been bothered by any of the following problems? Little interest or pleasure in doing things: Not at all Feeling down, depressed, or hopeless: Not at all Patient Health Questionnaire-2 Score: 0 Interventions: Denies being depressed. Effexor has been effective Denies being anxious. Effexor has been effective. Tobacco Use: Social History Tobacco Use Smoking Status Every Day Packs/day: 1.00 Types: Cigarettes Start date: 09/24/2019 Smokeless Tobacco Never Interventions: Patient does smoke cigarettes. She is trying to quit. Alcohol Use: Interventions: Denies drinking alcohol Drug Use: Interventions: Denies using illicit drugs. Objective : BP 118/63 Pulse 74 Temp 36.2 C (97.1 F) (Temporal) Ht 5' 4 (1.626 m) Wt 120 lb 3.2 oz (54.5 kg) SpO2 93% BMI 20.63 kg/m Vision Screening Right eye Left eye Both eyes Without correction With correction 20/20 20/25 20/20 documented in this encounter [facility] Evaluation note Diagnosis Menopause Symptomatic menopausal or female climacteric states documented in this encounter [facility] Work Phone: Evaluation noteNo assessment information available [facility] Work Phone: Evaluation note* Diagnosis Chronic obstructive pulmonary disease, unspecified COPD type (HCC)- Primary Hypercholesterolemia Pure hypercholesterolemia Gastroesophageal reflux disease without esophagitis Esophageal reflux Smoker Tobacco use disorder Depression, unspecified depression type [facility] Diagnosis Smoker Tobacco use disorder [facility] Diagnosis Chronic obstructive pulmonary disease, unspecified COPD type (HCC)- Primary [facility]* Diagnosis Chronic obstructive pulmonary disease, unspecified COPD type (HCC)- Primary Depression, unspecified depression type Gastroesophageal reflux disease without esophagitis Esophageal reflux Hypercholesterolemia Pure hypercholesterolemia documented [facility] this [facility]* Diagnosis Moderate smoker (20 or less per day)- Primary Tobacco use disorder Smoker Tobacco use disorder [facility] this [facility]* Diagnosis Chronic obstructive pulmonary disease, unspecified COPD type (HCC)- Primary Depression, unspecified depression type Gastroesophageal reflux disease without esophagitis Esophageal reflux Hypercholesterolemia Pure hypercholesterolemia documented [facility] this [facility]* Diagnosis Smoker Tobacco use disorder Moderate smoker (20 or less per day) Tobacco use disorder documented [facility] this [facility]* Diagnosis COPD with acute exacerbation (HCC) Lower resp. tract infection Other diseases of respiratory system, not elsewhere classified documented [facility] this [facility]* Diagnosis Chronic obstructive pulmonary disease, unspecified COPD type (HCC)- Primary Abnormal CT scan of lung Hypercholesterolemia Pure hypercholesterolemia Colon cancer screening Special screening for malignant neoplasms, colon Breast cancer screening by mammogram Depression, unspecified depression type Gastroesophageal reflux disease without esophagitis Esophageal reflux Ex-smoker for less than 1 year documented in this [facility]* Diagnosis Abnormal CT scan of lung- Primary Colon cancer screening Special screening for malignant neoplasms, colon Smoker Tobacco use disorder Family history of colon cancer Family history of malignant neoplasm of gastrointestinal tract documented in this [facility]* Diagnosis Abnormal CT scan of lung Smoker Tobacco use disorder [facility] this [facility]* Diagnosis Medicare annual wellness visit, subsequent- Primary Cough, unspecified type Chronic obstructive pulmonary disease, unspecified COPD type (HCC) Anxiety Anxiety state, unspecified Depression, unspecified depression type Hypercholesterolemia Pure hypercholesterolemia Mammogram declined Colonoscopy refused documented [facility] this [facility]* Diagnosis COPD with acute exacerbation (CMS/HCC) (HCC)- Primary Lower resp. tract infection Other diseases of respiratory system, not elsewhere classified Smoking Tobacco use disorder documented in this [facility]* Diagnosis Chronic obstructive pulmonary disease with acute exacerbation (HCC)- Primary Influenza Influenza with other respiratory manifestations documented [facility] this [facility]* Diagnosis Routine general medical examination at health care facility- Primary Routine general medical examination at a health care facility Encounter for screening mammogram for malignant neoplasm of breast Hypercholesterolemia Pure hypercholesterolemia Chronic obstructive pulmonary disease with acute exacerbation (HCC) Gastroesophageal reflux disease without esophagitis Esophageal reflux documented in this [facility]* Diagnosis Routine general medical examination at health care facility- Primary Routine general medical examination at a health care facility Encounter for screening mammogram for malignant neoplasm of breast Hypercholesterolemia Pure hypercholesterolemia Chronic obstructive pulmonary disease with acute exacerbation (HCC) Gastroesophageal reflux disease without esophagitis Esophageal reflux Other insomnia documented in this [facility]* Diagnosis Routine general medical examination at health care facility- Primary Routine general medical examination at a health care facility Encounter for screening mammogram for malignant neoplasm of breast Hypercholesterolemia Pure hypercholesterolemia Chronic obstructive pulmonary disease with acute exacerbation (HCC) Gastroesophageal reflux disease without esophagitis Esophageal reflux Chronic obstructive pulmonary disease with acute exacerbation (HCC) documented in this [facility]* Diagnosis Routine general medical examination at health care facility- Primary Routine general medical examination at a health care facility Encounter for screening mammogram for malignant neoplasm of breast Hypercholesterolemia Pure hypercholesterolemia Chronic obstructive pulmonary disease with acute exacerbation (HCC) Gastroesophageal reflux disease without esophagitis Esophageal reflux Other insomnia documented in this [facility]* Diagnosis Routine general medical examination at health care facility- Primary Routine general medical examination at a health care facility Encounter for screening mammogram for malignant neoplasm of breast Hypercholesterolemia Pure hypercholesterolemia Chronic obstructive pulmonary disease with acute exacerbation (HCC) Gastroesophageal reflux disease without esophagitis Esophageal reflux Other insomnia documented in this [facility]* Diagnosis Routine general medical examination at health care facility- Primary Routine general medical examination at a health care facility Encounter for screening mammogram for malignant neoplasm of breast Hypercholesterolemia Pure hypercholesterolemia Chronic obstructive pulmonary disease with acute exacerbation (HCC) Gastroesophageal reflux disease without esophagitis Esophageal reflux Chronic obstructive pulmonary disease with acute exacerbation (HCC) documented in this [facility]* Diagnosis Routine general medical examination at health care facility- Primary Routine general medical examination at a health care facility Encounter for screening mammogram for malignant neoplasm of breast Hypercholesterolemia Pure hypercholesterolemia Chronic obstructive pulmonary disease with acute exacerbation (HCC) Gastroesophageal reflux disease without esophagitis Esophageal reflux Other insomnia [facility] N[facility]* Imaging (Routine) - Closed Specialty Diagnoses / Procedures Referred By Contac t Referred To Contact Radiology Diagnoses Abnormal CT scan of lung Smoker Procedures CT lung screening follow up low dose ArgentinaGasper, DO [address] [place] [address] Phone: tel: fax: Referral ID Status Reason Start Date Expiration Date Visits Re quested Visits Authorized [id number] Closed 02/22/2024 02/21/2025 1 1 [facility] Summary Purpose Family History No Family History Records Found Relationship Condition Age at Onset Recorded Date/T meera Unknown Family History?- Unknown May 132013 5:25am Family History?- Unknown May 052013 7:01am Relationship Condition Age at Onset Recorded Date/T meera Unknown Family History?- Unknown May 132013 4:25am Family History?- Unknown May 052013 6:01am Advance Directives No Advanced Directives Records FoundDocuments on File Type Date 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 ACP-Advance Directive ACP-Power of Frame Opener Advance Directive Response Recorded Date/ Time Advance Directives No May 10:10pm Living Will No May 22, 2014 10:10pm Power of Frame Opener No May 10:10pm Advance Directive Response Recorded Date/ Time Advance Directives No May 9:10pm Living Will No May 22, 2014 9:10pm Power of Frame Opener No May 9:10pm Reason for Referral Specialty Diagnoses / Procedures Referred By Contac t Referred To Contact Radiology Diagnoses Menopause Procedures DEXA Bone Density Axial Skeleton Danish Davila, DO [address] [place] [address] Referral ID Status Reason Start Date Expiration Date Visits Re quested Visits Authorized [id number] Open 06/07/2021 06/07/2022 1 1 Specialty Diagnoses / Procedures Referred By Contac t Referred To Contact Radiology Diagnoses Smoker Procedures CT lung screening low dose Argentina Gasper Serrano, DO [address] [place] [address] Referral ID Status Reason Start Date Expiration Date V isits Requested Visits Authorized [id number] Pending Review 01/13/2023 07/12/2023 1 1 Specialty Diagnoses / Procedures Referred By Contac t Referred To Contact Radiology Diagnoses Smoker Moderate smoker (20 or less per day) Procedures CT lung screening low dose Gasper Nelson, DO [address] [place] [address] Referral ID Status Reason Start Date Expiration Date V isits Requested Visits Authorized [id number] Pending Review 08/01/2023 07/31/2024 1 1 Referral ID Status Reason Start Date Expiration Date Visits Re quested Visits Authorized [id number] Closed 08/01/2023 07/31/2024 1 1 Specialty Diagnoses / Procedures Referred By Contac t Referred To Contact Diagnoses Chronic obstructive pulmonary disease, unspecified COPD type (HCC) Procedures Complete PFT pre and post bronchodilator Gasepr Nelson, [address] [place] [address] Referral ID Status Reason Start Date Expiration Date V isits Requested Visits Authorized [id number] Pending Review 02/22/2024 02/16/2025 1 1 Specialty Diagnoses / Procedures Referred By Contac t Referred To Contact Radiology Diagnoses Abnormal CT scan of lung Smoker Procedures CT lung screening follow up low dose Gasper Nelson, DO [address] [place] [address] Referral ID Status Reason Start Date Expiration Date V isits Requested Visits Authorized [id number] Pending Review 02/22/2024 02/21/2025 1 1 Specialty Diagnoses / Procedures Referred By Contac t Referred To Contact Gastroenterology Diagnoses Colon cancer screening Procedures [place] OFFICE/OUTPATIENT NEW HIGH MDM 60 MINUTES Gasper Nelson, DO [address] [place] [address] Slim Weiss [address], [address] [place] [address] Referral ID Status Reason Start Date Expiration Date Visits Requested Visits Authorized [id number] Pending Review Specialty Services Required 02/22/2024 02/21/2025 1 1 Chief Complaint and Reason for Visit Chief Complaint VOMITING Additional Source Comments INFORMATION SOURCE (unrecogn ized section and content) DATE CREATED AUTHOR 10/12/2021 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 [place], [place] [id number] PCP - General Family Medicine 03/24/20 Team Status: Active Member Role Status Dates Dr. Aaron Zepeda MD Family Provider Active Dr. Danish Davila DO Primary Care Provider Active Team Status: Inactive Member Role Status Dates Dr. Danish Davila DO Primary Care Provider, [facility] Provider Active Muck Miner Blasting Relationship Specialty Start Date End Date Danish Davila DO [address] [place], [place] [id number] PCP - General 03/24/20 Muck Miner Blasting Relationship Specialty Start Date End Date Gasper Nelson DO [address] [place], [place] [id number] PCP - General Family Medicine 01/13/23 Muck Miner Blasting Relationship Specialty Start Date End Date Gasper Nelson, DO [address] [place] [address] PCP - General Family Medicine 01/13/23 Muck Miner Blasting Relationship Specialty Start Date End Date Gasper Nelson DO [address] [place], [place] [phone] PCP - General Family Medicine 01/13/23 Muck Miner Blasting Relationship Specialty Start Date End Date Gasper Nelson, DO [address] [place] [address] PCP - General Family Medicine 01/13/23 Muck Miner Blasting Relationship Specialty Start Date End Date Gasper Nelson DO [address] [place], [place] [id number] PCP - General Family Medicine 01/13/23 Muck Miner Blasting Relationship Specialty Start Date End Date Gasper Nelson, DO [address] [place], [place] [id number] PCP - General Family Medicine 01/13/23 Muck Miner Blasting Relationship Specialty Start Date End Date Gasper Nelson, DO [address] [place] [phone] PCP - General Family Medicine 01/13/23 Muck Miner Blasting Relationship Specialty Start Date End Date Gasper Nelson, DO [address] [place] [phone] PCP - General Family Medicine 01/13/23 Muck Miner Blasting Relationship Specialty Start Date End Date Gasper Nelson, DO [address] [place] [phone] PCP - General Family Medicine 01/13/23 Muck Miner Blasting Relationship Specialty Start Date End Date Gasper Nelson, DO [address] [place] [phone] PCP - General Family Medicine 01/13/23 Muck Miner Blasting Relationship Specialty Start Date End Date Gasper Nelson, DO [address] [place] [phone] PCP - General Family Medicine 01/13/23 Muck Miner Blasting Relationship Specialty Start Date End Date PuneetGasper vargas, DO [address] [place] [address] PCP - General Family Medicine 01/13/23 Muck Miner Blasting Relationship Specialty Start Date End Date ArgentinaGasper, DO [address] [place] [phone] PCP - General Family Medicine 01/13/23 Muck Miner Blasting Relationship Specialty Start Date End Date PuneetdorinakiGasper, DO [address] [place] [phone] PCP - General Family Medicine 01/13/23 Muck Miner Blasting Relationship Specialty Start Date End Date ArgentinaGasper, DO [address] [place] [phone] PCP - General Family Medicine 01/13/23 Muck Miner Blasting Relationship Specialty Start Date End Date ArgentinaGasper, DO [address] [place] [phone] PCP - General Family Medicine 01/13/23 Muck Miner Blasting Relationship Specialty Start Date End Date ArgentinaGasper, DO [address] [place] [phone] PCP - General Family Medicine 01/13/23 Muck Miner Blasting Relationship Specialty Start Date End Date ArgentinaGasper, DO [address] [place] [address] PCP - General Family Medicine 01/13/23 Muck Miner Blasting Relationship Specialty Start Date End Date Argentina Gasper Serrano, DO [address] [place] [phone] PCP - General Family Medicine 01/13/23 Muck Miner Blasting Relationship Specialty Start Date End Date Argentina Gasper Serrano, DO [address] [place] [phone] PCP - General Family Medicine 01/13/23 Muck Miner Blasting Relationship Specialty Start Date End Date Gasper Nelson Maggie, DO [address] [place] [phone] PCP - General Family Medicine 01/13/23 Muck Miner Blasting Relationship Specialty Start Date End Date Danish Davila DO [address] [place] [address] PCP - General 03/24/20 Muck Miner Blasting Relationship Specialty Start Date End Date Danish Davila DO [address] [place] [address] PCP - General 03/24/20 Muck Miner Blasting Relationship Specialty Start Date End Date Danish Davila DO [address] [place] [address] PCP - General 03/24/20 Muck Miner Blasting Relationship Specialty Start Date End Date Danish Davila, DO [address] [place] [address] PCP - General 03/24/20 Muck Miner Blasting Relationship Specialty Start Date End Date Gasper Nelson Maggie, DO [address] [place] [phone] PCP - General Family Medicine 01/13/23 Muck Miner Blasting Relationship Specialty Start Date End Date PuneetdorinakiGasper, DO [address] [place] [phone] PCP - General Family Medicine 01/13/23 Muck Miner Blasting Relationship Specialty Start Date End Date ArgentinaGasper, DO [address] [place] [phone] PCP - General Family Medicine 01/13/23 Muck Miner Blasting Relationship Specialty Start Date End Date PuneetdorinakiGasper, DO [address] [place] [address] PCP - General Family Medicine 01/13/23 Muck Miner Blasting Relationship Specialty Start Date End Date Argentina Gasper Serrano, DO [address] [place] [phone] PCP - General Family Medicine 01/13/23 Muck Miner Blasting Relationship Specialty Start Date End Date ArgentinaGasper, DO [address] [place] [phone] PCP - General Family Medicine 01/13/23 Goals (unrecognized section and content) Goals may be documented in a n alternate sectionGoals may be documented in an alternate sectionGoals may be documented in an alternate sectionGoals may be documented in an alternate section Reason for Visit (unrecogniz ed section and content) Reason Onset Date Comments Cough 11/14/2022 Reason Comments Follow-up New to provider, 4 m ont med check Reason Onset Date Comments Orders 01/13/2023 LDCT Reason Onset Date Comments Scheduling 02/27/2023 Reason Onset Date Comments Handicap Placard 03/14/2023 Reason Comments Follow-up 6 month med check Reason Onset Date Comments Orders 08/01/2023 LDCT due in [place] h 2023 Reason Comments Med Refill Specialty Diagnoses / Procedures Referred By Anisa arias Referred To Contact Radiology Diagnoses Smoker Moderate smoker (20 or less per day) Procedures CT lung screening low dose Gasper Nelson Maggie, DO [address] [place] [address] Referral ID Status Reason Start Date Expiration Date Visits Re quested Visits Authorized [id number] Closed 08/01/2023 07/31/2024 1 1 Reason Onset Date Comments Error (VOID this visit) 12/21/2023 Reason Onset Date Comments Appointment 12/22/2023 [facility] Reason Onset Date Comments Med Refill 12/21/2023 Reason Onset Date Comments Medication Problem 01/02/2024 Reason Onset Date Comments Results 02/05/2024 Reason Comments Follow-up Ct scan Reason Onset Date Comments Referral 02/22/2024 Dr Weiss Reason Onset Date Comments Other 04/11/2024 Scheduling attem pts Reason Onset Date Comments Med Refill 06/11/2024 traZODone (Desyr el) 150 MG tablet Reason Onset Date Comments Care Coordination 04/23/2024 Lung Screening Follow up reminder - certified letter sent Reason Onset Date Comments Advice Only 10/04/2022 cough Reason Comments Medicare Annual Wellness Visit Subsequen t Nasal Congestion Chest congestion Reason Onset Date Comments Orders 10/20/2022 Reason Onset Date Comments Orders 10/17/2022 Fax 10/03/22 XR Chest SULAIMAN, Pt at [facility] Reason Comments Cough X Monday Sore Throat Reason Onset Date Comments Cough 10/31/2024 Reason Comments Medicare Annual Wellness Visit Subsequen t Reason Onset Date Comments Release of Information 02/10/2025 Reason Onset Date Comments Med Refill 02/09/2025 FOR RECORDS PERTAINING TO PATIENTS WHO ARE OR HAVE BEEN ENROLLED IN A CHEMICAL DEPENDENCY/SUBSTANCEABUSE PROGRAM, SOME INFORMATION MAY BE OMITTED. This clinical summary was aggregated from multiple sources. Caution should be exercised in using it in the provision of clinical care. This summary normalizes information from multiple sources, and as a consequence, information in this document may materially change the coding, format and clinical context of patient data. In addition, data may be omitted in some cases. CLINICAL DECISIONS SHOULD BE BASED ON THE PRIMARY CLINICAL RECORDS. [facility] [employer] [facility]. provides no warranty or guarantee of the accuracy or completeness of information in this document.
--- NOTE | 2025-02-15 09:25 | RAD_ITS ---
PROCEDURE: CHEST 1 VIEW (PORTABLE) 02/15/2025 REASON FOR EXAM: SHORTNESS OF BREATH TECHNIQUE: Frontal view of the chest. FINDINGS: Hardware: None Heart: Normal size Lungs: Clear Bones: No aggressive Other: RAD/Chest 1 View (Portable) IMPRESSION: No acute process Reading [facility]
[2025-02-15] MEDS: MethylPREDNISolone 125 MG/2 ML Vial IV (09:27)
[2025-02-15 09:28] LABS: Absolute Lymphocyte Count 1.81 X10^3/uL (0.83-4.51); Absolute Neutrophil Count 7.2 X10^3/uL (2.0-7.7); Basophil# 0.09 X10^3/uL; Eosinophil# 0.07 X10^3/uL; Eosinophils% 0.7 % (0-5); Hematocrit 41.5 % (37-47); Hemoglobin 13.6 g/dL (12.0-15.0); Lymphocyte # 1.81 X10^3/ul (0.83-4.51); Lymphocyte % 19.2 % (19-41); Mean Corp Hgb Conc 32.8 g/dL (32-36); Mean Corpuscular Hgb 29.9 pg (27.0-32.0); Mean Corpuscular Volume 91.2 fL (81-99); Mean Platelet Vol. 9.7 fl (6.2-12.0); Monocyte# 0.18 X10^3/uL; Monocyte% 1.9 % (0-10); NRBC Flagged by Analyzer 0 % (0-5); Neutrophil # 7.24 X10^3/uL (2.7-7.7); Platelet Count 263 K/mm3 (150-450); RBC Distribution Width CV 13.2 % (11.6-14.6); RBC Distribution Width SD 44.6 fl (35.1-43.9); Red Blood Count 4.55 M/mm3 (4.2-5.4); White Blood Count 9.4 K/mm3 (4.4-11.0)
[2025-02-15] MEDS: Albuterol 2.5 MG/3 ML VIAL.NEB. INHALATION (09:36)
[2025-02-15 10:05] LABS: Anion Gap 13 (5-15); BUN 17 mg/dL (4-19); BUN/Creat Ratio 22.4 RATIO (10-20); Calcium,Total 9.8 mg/dL (7.6-11.0); Carbon Dioxide 26.3 mmol/L (21.0-32.0); Chloride 101 mmol/L (98-108); Creatinine, Serum 0.75 mg/dL (0.70-1.20); EST Glomerular Filtration Rate 86 (>60); Estimated Creatinine Clearance 53.51 ml/min (50-250); Glucose 136 mg/dL (70-99); Potassium 3.2 mmol/L (3.3-5.1); Sodium Level 140 mmol/L (133-145)
--- NOTE | 2025-02-15 11:10 | CASEMGMT ---
Care Management Face to Face with patient for initial transition planning/care coordination assessment in the ED.? This database report writer introduced self and role at [facility]. Patient alert and oriented. Patient willing to participate in assessment and is able to answer all questions appropriately.? Care providers, pharmacy, and demographics verified. Admitting Diagnosis: COPD Exacerbation Other diagnosis history: Including but not limited to: Arthritis, Chronic Anemia, Gastroesophageal Reflux Disease (GERD), Osteopenia and Depression. PCP: Dr. Davila listed on patient?s medical records, however patient identified her PCP as Dr. Nelson. Specialists: Denied Preferred Pharmacy: [facility] Insurance: [employer] Prescription Benefit: Yes, with co-pay. Living Will/HPOA: Denied and not interested in at this time. Nick Setter provided education on benefits of Advanced Care Directives. LNOK: Patient is and does not have any children. Patient stated she has a cousin, Brittany, who resides in [place]. Patient stated most of her family lives near [facility]. Patient stated she has lived in [place] for over 20 years. Living Arrangements: Patient lives alone in a mobile home. Patient stated there are 2-3 stairs she has go to up/down leading into her home which patient stated she is able to ambulate without difficulty. Patient stated there is also a handrail by the stairs she can hold onto if ever needed. Patient denied any environmental barriers. Transportation: Patient drives. DME: Patient stated she used to have a CPAP in 2006 or 2007 and just got tired of using it so patient eventually stopped altogether and stated she hasn?t used once since. Patient stated she has a cane and a standard walker that used to belong to her but denied needing to use any of it at this time. HHC: Denied SNF/Rehab: Denied Community Resources: Denied Behavioral Health History: Patient has a history of depression. Patient goals: Patient wishes to discharge home, and denied need for home health care at this time. Patient denies any further needs or concerns at this time. Nick Setter provided verbal education about smoking cessation at which point patient stated she is working on. Patient stated she used to smoke a pack of cigarettes a day and has now cut down to half-a-pack per day. Patient stated she will continue to cut back more until she no longer smokes at all. Patient was tearful at times and disclosed to ED? Doctor that she is worried about her dog. Disposition Plan: admission to acute; RN CM/SW to follow for discharge planning needs that may arise. Marycruz Goodrich, REVENUE INSPECTOR, HOME LENDING OFFICER
[2025-02-15] MEDS: Potassium Chloride Oral Tablet 20 MEQ 40 MEQ PO ×2 (11:19→16:02)
--- OUTSIDE RECORDS SUMMARY | 2025-02-15 11:23 | XMS RPT_ITS | CCD ---
Author Organization [facility] Inform ion Partnership ABSORBER OPERATOR [facility] Care Team Providers Care Food And Beverage Operations Manager Name Role Phone Danish Davila DO Primary Care Provider Gasper Nelson DO Primary Care Provider Gasper Nelson DO Primary Care Provider Gasper Nelson DO Primary Care Provider [phone] Danish Davila Primary Care Unavailable Pooja Padilla [...] (1 source) Sulfonamides (Antibiotic) Drug Allergy 3 [facility] (20 sources) Sulfonamides (Antibiotic) Propensity to adverse reactions to drug 3 [facility] (5 sources) Sulfonamides (Antibiotic); Translations: [Sulfa (Sulfonamide Antibiotics)] Allergy to substance 5 [facility] Medications Current Medications Medication Drug Class(es) Dates Sig (Normalized) Sig (Original) [id number] 200 actuat albuterol 0.09 mg/actuat metered dose [...] 20 mg/ml oral suspension (14 sources) Uncompetitive U-vamtqe-Z-aspartat e Receptor Antagonist, Sigma-1 Agonist Start: 10-31-2024 [...] Active Start: 05-14-2014 take 1 capsule by [facility] once daily Venlafaxine Xr (Effexor Xr) 75 [...] 02-11-2025 36 Patient advised and voiced understanding. [facility] 02-10-2025 29 Addended by: JUJU PATTON on: 02/10/2025 03:52 PM Modules accepted: Orders [facility] 02-10-2025 36 Called patient to relay provider message left voicemail to call office back. Mychart message sent to patient. Please relay message to patient. [facility] 36 Message released to patient as written. [...] a new script sent in. Please advise [place] [address] Left message to return call Gasper Nelson DO 02/10/25 12:43 PM Antibiotic, and prednisone prescribed to her local pharmacy. I would take the prednisone 5 days due to her emphysema [facility] 36 Recent Visits Date Type Provider Dept 11/12/24 Office Visit Siomara Estrada PA-C [facility] 02/22/24 Office Visit Gasper Nelson DO [facility] Showing recent visits within past 365 [...] Most recent labs completed in chart? N/A [place] [address] Recent Visits Date Type Provider Dept 11/12/24 Office Visit Siomara Estrada PA-C [facility] 02/22/24 Office Visit Gasper Nelson DO [facility] Showing recent visits within past 365 [...] recent labs completed in chart? N/A Normal [facility] 36 S: Patient spoke wit h [facility] nurse regarding chest congestion and increased shortness [...] refill on her albuterol inhaler. (Sent via [employer] request). Allergies and pharmacy verified. R: Offered [...] or worse than normal Protocols used: Breathing Qmxdlvztoy-SMJOO-SN Normal [facility] 36on 12-13-2024 36 Recent Visits Date Type Provider Dept 11/12/24 Office Visit Siomara Estrada PA-C [facility] 02/22/24 Office Visit Gasper Nelson DO [facility] Showing recent visits within past 365 [...] CHOLHDLCRATI 4.2 01/13/2023 NONHDLCHOLES 174 (H) 01/13/[address] [facility] 37on 11-12-2024 37 Personalized Preventative Plan for [...] Recommendations: A preventive eye exam by an fire protection specialist is recommended every 1-2 years to screen for glaucoma, cataracts, macular degeneration, and other eye disorders. A preventive dental visit is recommended every 6 months. Try to get at least 150 minutes of exercise per week or 10,000 steps per day on a pedometer. You need 1200-1500mg of calcium and 5458-9511 international units of vitamin D per day. [...] when riding a bicycle or a motorcycle [facility] Office Visiton 11-12-2024 Follow-up visit [id number] Ashley Gómez 1955 F Date Provider Department Center 11/12/2024 SIOMARA DIAZ [facility] Family History Problem Relation Age of Onset [...] Brother Alive Brother Alive Level of Service:G0439 IN PPPS, SUBSEQ VISIT Reason for Visit and Comments: Medicare Annual Wellness Visit Subsequent [677] Normal [facility] Progress Noteon 11-12-2024 Progress Note - Chronic stable was taking simvastatin 80 mg daily but felt that that was too much and she was concerned about problems with her liver so she has been cutting in half and taking 40 mg daily. Will recheck her levels today but I believe this is reasonable enough as her levels have been adequately controlled Normal [facility] Progress Note - Chronic stable she will continue on esomeprazole 40 mg daily. [facility] Progress Note - Chronic stable patient was recently treated for flareup with amoxicillin and prednisone she can take the prednisone she is requesting a lower dose Medrol Dosepak and a second round of antibiotics that she started in some generalized wheezing and congestion strongly encouraged smoking cessation. [facility] Progress Note [facility] - [address] [facility] [address] Dept: [phone] Dept Chief Complaint: Ashley Gómez is an [...] pain. Ga (more content not included)... Normal [facility] 36on 10-31-2024 36 S: Patient spoke [...] not coughing Protocols used: Cough - Acute Ijq-Gklcixkxth-UUZBD- AH Normal [facility] Progress Noteon 10-31-2024 Progress Note [facility] - [address] [facility] [address] Dept: [phone] Dept Loc: [phone] Patient was identified and seen today via [...] that they are currently in the state [facility]. If the patient is a minor, [...] for orders. Gasper Nelson, 10/31/2024 12:[address] [facility] 36on 10-01-2024 36 Received signed receipt of certified letter sent to patient. Scanned to media in chart. [facility] 36on 09-30-2024 36 Recent Visits Date Type Provider Dept 02/22/24 Office Visit Gasper Nelson DO [facility] Showing recent visits within past 365 days and meeting all other requirements Future Appointments Date Type Provider Dept 11/12/24 Appointment Gasper Nelson DO [facility] Showing future appointments within next 90 [...] recent labs completed in chart? N/A None [place] [address]on 09-16-2024 36 Recent Visits Date Type Provider Dept 02/22/24 Office Visit Gasper Nelson DO [facility] Showing recent visits within past 365 days and meeting all other requirements Future Appointments Date Type Provider Dept 09/30/24 Appointment Gasper Nelson DO [facility] Showing future appointments within next 90 [...] CHOLHDLCRATI 4.2 01/13/2023 NONHDLCHOLES 174 (H) 01/13/[address] [facility] 36on 08-05-2024 36 Transferred to resul t notes Normal [facility] 36 Message released to patient as written. Patient's further questions if applicable: NA Were all questions from office addressed or relayed to the patient from encounter: Yes [facility] 36 Placed call to patient. Unable to reach them by phone to discuss lab results. Left detailed message to return call to discuss results. Please release information to patient [facility] 36 ----- Message from Juju Rodriguez sent at 08/05/2024 7:36 AM EST ----- ----- Message ----- From: Gasper Nelson DO Sent: 08/04/2024 5:20 PM EST To: [facility] Clinical Second Worker Stable small pulmonary nodules and they now recommend recheck study in 1 year. As noted before she has moderate amount of emphysema. [facility] CT LUNG SCREENING FOLLOW UP LOW DOSEon 07-31-2024 CT LUNG SCREENING FOLLOW UP LOW DOSE This is a summary report. The complete report is available in the patient's medical record. If you cannot access the medical record, please contact the sending organization for a detailed fax or copy. Patient Name: ASHLEY G[facility]MEZ [facility] 1955 [id number] Exam Date/Time: 07/29/2024 11:38 Procedure: CT LUNG SCREENING FOLLOW UP LOW DOSE Ordering Provider: NELSON EUGENE Reason For Exam: f/u abn ct [...] 2:02 PM EST F/U SCAN SMOKER Normal [facility] 36on 07-24-2024 36 Recent Visits Date Type Provider Dept 02/22/24 Office Visit Gasper Nelson DO [facility] 07/31/23 Office Visit Gasper Nelson DO [facility] Showing recent visits within past 365 days and meeting all other requirements Future Appointments Date Type Provider Dept 08/21/24 Appointment Gasper Nelson DO [facility] Showing future appointments within next 90 [...] CHOLHDLCRATI 4.2 01/13/2023 NONHDLCHOLES 174 (H) 01/13/2023 [place] [address]on 06-28-2024 Reason for call: Pari, I am [...] to get her scheduled. Thank you Contact [place] [address] No auth needed. Faxe d orders to [facility]-Scheduling for pt to be sched - [facility] will sched/advise pt. My chart mess sent to patient with info to sched. [place] [address]on 06-27-2024 36 Vincent Perez, It looks like the patient navigator has done all that she can do. So it looks like all avenues have been exhausted to try and reach this patient to schedule. [facility] 36 To April to follow up [place] [address] Mrs. Gómez called i n after receiving certified letter. She would like to return to complete the recommended lung screening 3 month follow-up imaging previously ordered by Dr. Nelson. Will send message to provider office to place new referral for imaging and assist patient with scheduling. She prefers [facility] for imaging location and is available on Monday the if there are any appointments available. [place] [address]on 06-11-2024 36 RX loaded Next ov 08/21/24 [place] [address] Medication name: traZODone (Desyrel) 150 MG tablet [...] to picking up the medication: Yes Normal [facility] Colonoscopy Reporton 024 Colonoscopy Report [facility] Medical Records Department [address] [place] [address] Colonoscopy Report MR#: [id number] Acct: [id number] Name: ASHLEY GÓMEZ Rep #: [id number] : 1955 68 From: Slim Weiss DO PCP: Dr. Danish Davila DO Status:REG [facility] Patient Name: Ashley Gómez Procedure Date: 04/29/2024 [...] criteria for high risk CPT copyright 2021 [employer]. All rights reserved. The codes documented in this report are preliminary and upon barn worker review may be revised to meet current compliance requirements. Slim Weiss DO 04/29/2024 9:34:45 AM This report has been signed electronically. Number of Addenda: 0 Note Initiated On: 04/29/2024 8:54 AM 04/29/24 0934 Date Slim Goss Signature: Date (if indicated) CC: Dr. Danish Davila DO; Slim Weiss DO Date Dictated: 04/29/24853 Date Transcribed: Mechanical Test Technician: WES Signed [facility] MR/POSTOP.ANEon 04-29-2024 MR/POSTOP.[facility] Medical Records Department [address] [place] [address] Anesthesia Postop Eval I 04/29/241402 MR#: [id number] Acct: [id number] Name: ASHLEY GÓMEZ Rep #: [id number] : 1955 68 From: Supriya Valdovinos CRNA PCP: Dr. Danish Davila DO Status:[facility] Y Race: C Location: Anesthesia: Postop Eval [...] 1 completed: Yes 04/29/241403 Date Supriya Valdovinos COLLECTION SYSTEM[employer] FOREMAN Cosigner Signature: Date CC: Signed [facility] MR/PALHWOMG3kp 04-29-2024 MR/POSTOPAN2 [facility] Medical Records Department [address] [place] [address] Anesthesia Postop Eval II 04/29/24 1341 MR#: [id number] Acct: [id number] Name: ASHLEY GÓMEZ Rep #: [id number] : 1955 68 From: David Valadez MD PCP: Dr. Danish Davila, DO Status:DEP [facility] Y Race: C Location: EN Anesthesia Postop [...] MD Cosigner Signature: Date CC: Signed Normal [facility] 36on 04-17-2024 36 Recent Visits Date Type Provider Dept 02/22/24 Office Visit Gasper Nelson DO [facility] 07/31/23 Office Visit Gasper Nelson DO [facility] Showing recent visits within past 365 [...] from any other provider? No None Normal [facility] 36on 04-12-2024 36 Orders cancelled Normal [facility] 36on 04-11-2024 36 We have been unable to reach your patient to schedule their testing. Test Name: CT lung screening follow up, PFT and Mammo 1st Attempt: 03/30/24 2nd Attempt: 04/11/24 Jae, [facility] Scheduling [facility] Office Visiton 02-22-2024 Follow-up visit [id number] Ashley Gómez 1955 F Date Provider Department Center 02/22/2024 [id number] RASHID [facility] Family History Problem Relation Age of Onset [...] Alive Brother Alive Brother Alive Level of Service:22882 IN OFFICE/OUTPATIENT ESTABLISHED MOD MDM 30 MIN Reason for Visit and Comments: Follow-up [556830] - Ct scan Normal [facility] Progress Noteon 02-22-[address] [facility] [address] [place] [address] [address] [facility] [address] Visit type: Established Patient Reason [...] (HISTORICAL) 1 (more content not included)... Normal [facility] Lipid 1996 panelon 4 Cholesterol [Mass/Vol] 162 mg/dL NINF - 200 mg/dL [facility] Cholesterol in HDL [Mass/Vol] 38 mg/dL Low 40 - 60 mg/dL [facility] Cholesterol in LDL [Mass/Vol] 106 mg/dL High 0 - <100 [facility] Cholesterol.total/Cho lesterol in HDL [Mass ratio] 4 {ratio} [facility] Comment on above: Ref Range: < 3 Low Risk for CHD 3-6 Mod Risk for CHD > 6 High Risk for CHD Interpretation and review of laboratory results Abnormal [facility] Triglyceride [Mass/Vol] 91 mg/dL NINF - 150 mg/dL [facility] Absolute lymphocyte counton 01-31-2022 Lymphocytes Auto (Unsp spec) [#/Vol] 1.28 10*3/uL 0.83-4.51 [facility] Work Phone: Basophil percentageon 2021 Basophils/100 WBC (Bld) 0.3 % 0-1 [facility] Work Phone: Chloride [Moles/Vol] 100 mmol/L 98-107 [facility] Work Phone: Eosinophils/100 WBC (Bld) 0.0 % 0-5 [facility] Work Phone: Glucose [Mass/Vol] 153 mg/dL 74-106 [facility] Work Phone: Comment on above: Fasting Glucose resu lt greater than or equal to 126 mg/dL suggests DIABETES MELLITUS per A.D.A. criteria. Neutrophils (Bld) [#/Vol] 17.2 10*3/uL 2.0-7.7 [facility] Work Phone: Neutrophils/100 WBC (Bld) 88.5 % 47-70 [facility] Work Phone: Potassium [Moles/Vol] 3.2 mmol/L 3.5-5.1 [facility] Work Phone: Comment on above: Slight Hemolysis, Re sult may be falsely increased. Sodium [Moles/Vol] 135 mmol/L 136-145 [facility]: WBC (Bld) [#/Vol] 19.4 10*3/uL 4.4-11.0 [facility] Work Phone: Blood erythrocytes count (nu mber/volume)on 01-31-2022 RBC (Bld) [#/Vol] 4.26 10*6/uL 4.2-5.4 [facility] Work Phone: Blood hemoglobin measurement (mass/volume)on 01-31-2022 Hemoglobin (Bld) [Mass/Vol] 12.5 g/dL 12.0-15.0 [facility] Work Phone: Blood lymphocytes/100 leukoc yteson 01-31-2022 Lymphocytes/100 WBC (Bld) 6.6 % 19-41 [facility] Work Phone: Blood monocytes/100 leukocyt eson 01-31-2022 Monocytes/100 WBC (Bld) 3.5 % 0-10 [facility] Work Phone: Blood platelet mean volumeon 01-31-2022 Platelet mean volume (Bld) [Entitic vol] 10.4 fL 6.2-12.0 [facility] Work Phone: Determination of erythrocyte mean corpuscular volume (MCV)on 01-31-2022 MCV (RBC) [Entitic vol] 88.0 fL 81-99 [facility] Work Phone: Hematocrit Auto (Bld) [Volum e fraction]on 01-31-2022 Hematocrit (Bld) [Volume fraction] 37.5 % 37-47 [facility] Work Phone: Laboratory - Chemistry and C hemistry - challengeon 01-31-2022 CO2 [Moles/Vol] 27.0 mmol/L 21.0-32.0 [facility] Work Phone: Urea nitrogen/Creatinine [Mass ratio] 22.0 mg/mg 10-20 [facility] Work Phone: Laboratory - Hematology and Cell countson 01-31-2022 Erythrocyte distribution width (RBC) [Entitic vol] 45.4 fL 35.1-43.9 [facility] Work Phone: Erythrocyte distribution width (RBC) [Ratio] 14.1 % 11.6-14.6 [facility] Work Phone: Immature granulocytes/100 WBC (Bld) 1.100 % 0.0-0.9 [facility] Work Phone: Comment on above: IG% - Immature Granu locytes (promyelocytes, myelocytes and metamyelocytes) > 1% indicates that a LEFT SHIFT is Present. MCH (RBC) [Entitic mass] 29.3 pg 27.0-32.0 [facility] Work Phone: Nucleated RBC/100 WBC (Bld) [Ratio] 0 % 0-5 [facility] Work Phone: MCHC Auto (RBC) [Mass/Vol]on 01-31-2022 MCHC (RBC) [Mass/Vol] 33.3 g/dL 32-36 [facility] Work Phone: No Panel Informationon 01-31 Estimated Creatinine Clearance Calc 49.62 ml/min [facility] Work Phone: Estimated GFR (MDRD) Amer 79 mL/min >60 [facility] Work Phone: Comment on above: GFR Calc Estimated GFR (MDRD) Non-Af Amer 65 mL/min >60 [facility] Work Phone: Comment on above: Non- GFR Calc SARS-CoV-2 & FLU Antigen (Rapid) [facility] Work Phone: Platelets bldon 01-31-2022 Platelets (Bld) [#/Vol] 188 10*3/uL 150-450 [facility] Work Phone: Serum or plasma calcium janneth urement (mass/volume)on 01-31-2022 Calcium [Mass/Vol] 9.4 mg/dL 8.5-10.1 [facility] Work Phone: Serum or plasma creatinine m easurement (mass/volume)on 01-31-2022 Creatinine [Mass/Vol] 0.91 mg/dL 0.55-1.02 [facility] Work Phone: Comment on above: The validity of the calculated GFR & GFRAA in patients over 70 years has not been determined. Clinical correlation is essential. Serum or plasma urea nitroge n measurement (mass/volume)on 01-31-2022 Urea nitrogen [Mass/Vol] 20 mg/dL 7-18 [facility] Work Phone: Thin prep Papanicolaou smear with manual screeningon 01-31-2022 Thin prep Papanicolaou smear with manual screening 8 5-15 [facility] Work Phone: DEXA Bone Density Axial Skel etonoroseanna 01-11-2022 Patient Name: ASHLEY GÓMEZ Bone Density ACCESSION EXAM DATE/TIME PROCEDURE ORDERING PROVIDER [id number] 01/11/2022 15:04 EDT OT Bone Density DEXA DO DAVILA PAUL E. Axial Skeleton CPT code 18032 Reason For Exam (OT Bone Density DEXA Axial Skeleton) . Report DXA BONE DENSITOMETRY: CLINICAL INDICATION: Asymptomatic post-menopausal status COMPARISON: None TECHNIQUE: Quantitative bone mineral densitometry of the hip and lumbar spine was performed with a dual energy x-ray observed absorptiometry device - [employer] Horizon W. Regions of interest were obtained [...] recommendations for prevention of bone loss include: 9471-5061 mg calcium intake per day for adults [...] and Follow-up. [employer] Knowledge Evidence-Based Summaries. [facility] [employer]. 2017 Bone Density Report Report Dictated on --- Final --- Dictating Physician: MD SANTIAGO LAUREN B Signed Date and Time: 01/11/2022 4:03 pm Signed by: MD SANTIAGO LAUREN B Transcribed Date and Time: 01/11/2022 4:05 REBEKAH VERMA RAD Bari Santiago MD - 01/11/2022 Patient Name: ASHLEY GÓMEZ Bone Density ACCESSION EXAM DATE/TIME PROCEDURE ORDERING PROVIDER [id number] 01/11/2022 15:04 EDT OT Bone Density DEXA DO DAVILA PAUL E. Axial Skeleton CPT code 33806 Reason For Exam (OT Bone Density DEXA Axial Skeleton) . Report DXA BONE DENSITOMETRY: CLINICAL INDICATION: Asymptomatic post-menopausal status COMPARISON: None TECHNIQUE: Quantitative bone mineral densitometry of the hip and lumbar spine was performed with a dual energy x-ray observed absorptiometry device - [employer] W. Regions of interest were obtained through [...] recommendations for prevention of bone loss include: 9576-1860 mg calcium intake per day for adults [...] and Follow-up. [employer] Evidence-Based Summaries. [facility] [employer]. 2017 Bone Density [...] Mammography ACCESSION EXAM DATE/TIME PROCEDURE ORDERING PROVIDER [id number] 01/11/2022 15:01 EDT MG Breast Tomosynthesis DO DAVILA PAUL E. BI Scr CPT code 13757 52936 Reason For Exam (MG Breast Tomosynthesis BI [...] 20, 2013, bilateral screening mammogram performed at [facility]. TISSUE DENSITY: BIRADS B - There are [...] images: BB's = Nipples; skin lesions Open elim ira = Palpable Line = Scar 2D digital [...] am Signed by: MD PAMELA, BARI [facility] OT Bone Density DEXA Axial S stephanie 01-11-2022 OT Bone Density DEXA Axial Skeleton Patient Name: ASHLEY GÓMEZ Bone Density ACCESSION EXAM DATE/TIME PROCEDURE ORDERING PROVIDER [id number] 01/11/2022 15:04 EDT OT Bone Density DEXA DO DAVILA PAUL E. Axial Skeleton CPT code 22584 Reason For Exam (OT Bone Density DEXA Axial Skeleton) . Report DXA BONE DENSITOMETRY: CLINICAL INDICATION: Asymptomatic post-menopausal status COMPARISON: None TECHNIQUE: Quantitative bone mineral densitometry of the hip and lumbar spine was performed with a dual energy x-ray observed absorptiometry device - [employer] Horizon W. Regions of interest were obtained [...] recommendations for prevention of bone loss include: 8936-8572 mg calcium intake per day for adults [...] and Follow-up. [employer] Evidence-Based Summaries. [facility] [employer]. 2017 Bone Density Report Report Dictated on Final Dictating Physician: MD SANTIAGO LAUREN B Signed Date and Time: 01/11/2022 4:03 pm Signed by: MD SANTIAGO LAUREN B Transcribed Date and Time: 01/11/2022 4:05 [facility] Jacqueline 10-23-2020 [facility] Telephone (GASTTW) ASHLEY GÓMEZ ([id number]) 1955 F Date Time Provider Department 10/23/20 [...] Take 10 mg by mouth once magaly* [id number] TROPINE-* Take by mouth. Takes 1 to [...] by GERMAN RAMIREZ MD on 10/23/20 Normal [facility] No Panel Information SARS-CoV-2 & FLU Antigen (Rapid) [facility] Work Phone: Vital Signs Date Time Vital Sign Value Performing Clinician Facility 11-12-2024 09:09-0400 Diastolic blood pressure 80 mm[Hg] Siomara Estrada PA-C Work Phone: [facility] [email or web address] 11-12-2024 09:09-0400 Systolic blood pressure 132 mm[Hg] Siomara Estrada PA-C Work Phone: [facility] [email or web address] 11-12-2024 08:38-0400 Body height 162.6 cm Siomara Estrada PA-C Work Phone: [email or web address] 11-12-2024 08:38-0400 Body mass index (BMI) [Ratio] 20.6 kg/m2 Siomara Estrada PA-C Work Phone: [email or web address] 11-12-2024 08:38-0400 Body temperature 97.2 [degF] Siomara Estrada PA-C Work Phone: [email or web address] 11-12-2024 08:38-0400 Body weight 54.43 kg Siomara Estrada PA-C Work Phone: [email or web address] 11-12-2024 08:38-0400 Heart rate 83 /min Siomara Estrada PA-C Work Phone: [email or web address] 11-12-2024 08:38-0400 SaO2% (BldA) [Mass fraction] 90 % Siomara Estrada PA-C Work Phone: [email or web address] 02-22-2024 12:58-0400 Body height 162.6 cm Gasper Nelson DO Work Phone: [email or web address] 02-22-2024 12:58-0400 Body mass index (BMI) [Ratio] 21.11 kg/m2 Gasper Nelson DO Work Phone: [email or web address] 02-22-2024 12:58-0400 Body temperature 97 [degF] Gasper Nelson DO Work Phone: [facility] [email or web address] 02-22-2024 12:58-0400 Body weight 55.79 kg Gasper Nelson DO Work Phone: [facility] [email or web address] 02-22-2024 12:58-0400 Diastolic blood pressure 74 mm[Hg] Gasper Nelson DO Work Phone: [facility] [email or web address] 02-22-2024 12:58-0400 Heart rate 71 /min Gasper Nelson DO Work Phone: [facility] [email or web address] 02-22-2024 12:58-0400 SaO2% (BldA) [Mass fraction] 97 % Gasper Nelson DO Work Phone: [facility] [email or web address] 02-22-2024 12:58-0400 Systolic blood pressure 115 mm[Hg] Gasper Nelson DO Work Phone: [email or web address] [email or web address] 07-31-2023 15:37-0500 Body height 162.6 cm Gasper Nelson DO Work Phone: [email or web address] [email or web address] 07-31-2023 15:37-0500 Body mass index (BMI) [Ratio] 20.53 kg/m2 Gasper Nelson DO Work Phone: [email or web address] [email or web address] 07-31-2023 15:37-0500 Body temperature 97.81 [degF] Gasper Nelson DO Work Phone: [email or web address] [email or web address] 07-31-2023 15:37-0500 Body weight 54.25 kg Gasper Nelson DO Work Phone: [email or web address] 07-31-2023 15:37-0500 Diastolic blood pressure 78 mm[Hg] Gasper Nelson DO Work Phone: [email or web address] 07-31-2023 15:37-0500 Heart rate 80 /min Gasper Nelson DO Work Phone: [facility] [email or web address] 07-31-2023 15:37-0500 SaO2% (BldA) [Mass fraction] 94 % Gasper Nelson DO Work Phone: [facility] [email or web address] 07-31-2023 15:37-0500 Systolic blood pressure 138 mm[Hg] Gasper Nelson DO Work Phone: [facility] [email or web address] 01-13-2023 09:24-0400 Body height 162.6 cm Gasper Nelson DO Work Phone: [facility] [email or web address] 01-13-2023 09:24-0400 Body mass index (BMI) [Ratio] 19.74 kg/m2 Gasper Nelson DO Work Phone: [email or web address] [email or web address] 01-13-2023 09:24-0400 Body temperature 97.5 [degF] Gasper Nelsno DO Work Phone: [facility] [email or web address] 01-13-2023 09:24-0400 Body weight 52.16 kg Gasper Nelson DO Work Phone: [facility] [email or web address] 01-13-2023 09:24-0400 Diastolic blood pressure 73 mm[Hg] Gasper Nelson DO Work Phone: [email or web address] [email or web address] 01-13-2023 09:24-0400 Heart rate 89 /min Gasper Nelson DO Work Phone: [facility] [email or web address] 01-13-2023 09:24-0400 SaO2% (BldA) [Mass fraction] 99 % Gasper Nelson DO Work Phone: [email or web address] [email or web address] 01-13-2023 09:24-0400 Systolic blood pressure 118 mm[Hg] Gasper Nelson DO Work Phone: [email or web address] [email or web address] 11-14-2022 11:49-0400 Body height 162.6 cm Siomara Estrada PA-C Work Phone: [facility] [email or web address] 11-14-2022 11:49-0400 Body mass index (BMI) [Ratio] 20.6 kg/m2 Siomara Estrada PA-C Work Phone: [email or web address] [email or web address] 11-14-2022 11:49-0400 Body temperature 98.01 [degF] Siomara Estrada PA-C Work Phone: [email or web address] [email or web address] 11-14-2022 11:49-0400 Body weight 54.43 kg Siomara Estrada PA-C Work Phone: [email or web address] [email or web address] 11-14-2022 11:49-0400 Diastolic blood pressure 80 mm[Hg] Siomara Estrada PA-C Work Phone: [email or web address] [email or web address] 11-14-2022 11:49-0400 Heart rate 82 /min Siomara Estrada PA-C Work Phone: [email or web address] [email or web address] 11-14-2022 11:49-0400 SaO2% (BldA) [Mass fraction] 95 % Siomara Estrada PA-C Work Phone: [email or web address] [email or web address] 11-14-2022 11:49-0400 Systolic blood pressure 138 mm[Hg] Siomara Estrada PA-C Work Phone: [facility] [email or web address] 10-03-2022 08:39-0500 Body height 162.6 cm Danish Monteso DO Work Phone: [facility] [email or web address] 10-03-2022 08:39-0500 Body mass index (BMI) [Ratio] 20.63 kg/m2 Dnaish Monteso DO Work Phone: [facility] [email or web address] 10-03-2022 08:39-0500 Body temperature 97.11 [degF] Danish Monteso DO Work Phone: [facility] [email or web address] 10-03-2022 08:39-0500 Body weight 54.52 kg Danish Monteso DO Work Phone: [email or web address] 10-03-2022 08:39-0500 Diastolic blood pressure 63 mm[Hg] Danish Jyotio DO Work Phone: [facility] [email or web address] 10-03-2022 08:39-0500 Heart rate 74 /min Danish Jyotio DO Work Phone: [facility] [email or web address] 10-03-2022 08:39-0500 SaO2% (BldA) [Mass fraction] 93 % Danish Davila DO Work Phone: [facility] 10-03-2022 08:39-0500 Systolic blood pressure 118 mm[Hg] Danish Davila DO Work Phone: [facility] 01-31-2022 09:50-0400 Body temperature 99.4 [degF] [facility] Work Phone: 01-31-2022 09:50-0400 Diastolic blood pressure 97 mm[Hg] [facility] Work Phone: 01-31-2022 09:50-0400 Heart rate 100 /min [facility] Work Phone: 01-31-2022 09:50-0400 Respiratory rate 18 /min [facility] Work Phone: 01-31-2022 09:50-0400 SaO2% (BldA) [Mass fraction] 96 % [facility] Work Phone: 01-31-2022 09:50-0400 Systolic blood pressure 116 mm[Hg] [facility] Work Phone: 01-31-2022 09:20-0400 Body height 160.02 cm [facility] Work Phone: 01-31-2022 09:20-0400 Body mass index (BMI) [Ratio] 21.2 kg/m2 [facility] Work Phone: 01-31-2022 09:20-0400 Body weight 54.43 kg [facility] Work Phone: Encounters Encounter Date Encounter Type Care Provider Facility Start: 02-10-2025 End: 02-10-2025 Orders Only Gasper Nelson DO Work Phone: [facility] [place] Comment on above: Chronic obstructive pulmonary disease with acute exacerbation (HCC) Release of Informati on Other insomnia Start: 02-09-2025 End: 02-10-2025 Refill Siomara Estrada PA-C Work Phone: [facility] Comment on above: Chronic obstructive pulmonary disease with acute exacerbation (HCC) Start: 12-13-2024 End: 12-13-2024 Refill Gasper Serrano Argentina DO [facility] Phone: [facility] Start: 11-20-2024 End: 12-02-2024 Refill Gasper Serrano Argentina DO Work Phone: [facility] Comment on above: Other insomnia Start: 11-12-2024 End: 11-12-2024 Assay of hemosiderin, quant Siomara Estrada PA-C Work Phone: [facility] Work Phone: Start: 11-12-2024 End: 11-12-2024 Patient encounter procedure Siomara Estrada PA-C Work Phone: [facility] Comment on above: Routine general medi olga lidia examination at health care facility (Primary Dx); Encounter for screening mammogram for malignant neoplasm of breast; Hypercholesterolemia; Chronic obstructive pulmonary disease with acute exacerbation (HCC); Gastroesophageal reflux disease without esophagitis Start: 11-12-2024 End: 11-12-2024 ambulatory [facility] Start: 11-12-2024 End: 11-12-2024 Encounter for general adult medical examination without abnormal findings [facility] Start: 10-31-2024 End: 10-31-2024 [facility] Start: 10-31-2024 End: 10-31-2024 ambulatory [facility] Start: 10-31-2024 End: 10-31-2024 Office outpatient visit 15 minutes Gasper Nelson DO Work Phone: [facility] Comment on above: Chronic obstructive pulmonary disease with acute exacerbation (HCC) (Primary Dx); Influenza Start: 09-28-2024 End: 09-30-2024 Refill Gasper Serrano Argentina DO Work Phone: [facility] Start: 09-14-2024 End: 09-16-2024 Refill Gasper Nelson DO Work Phone: [facility] Start: 07-29-2024 End: 07-29-2024 ambulatory GASPER NELSON [facility] Start: 07-29-2024 End: 07-29-2024 Subsequent hospital visit by physician Gasper Maggie Nelson DO Work Phone: [facility] Comment on above: Abnormal CT scan of lung; Smoker Start: 07-24-2024 End: 07-24-2024 Refill Gasper Nelson DO Work Phone: [facility] Start: 06-28-2024 End: 07-01-2024 Telephone encounter [facility] Start: 06-11-2024 End: 06-11-2024 Refill Gasper Nelson DO Work Phone: [facility] Start: 04-29-2024 End: 04-29-2024 ambulatory [facility] Facility:[facility] Start: 04-23-2024 End: 06-20-2024 Telephone encounter Joann Jane [facility] Comment on above: Care Coordination (L aldair Screening Follow up reminder - certified letter sent ) Start: 04-17-2024 End: 04-17-2024 Refill Gasper Nelson DO Work Phone: [facility] Start: 04-11-2024 End: 04-11-2024 Telephone encounter Gasper Nelson DO Work Phone: [facility] Comment on above: Other (Scheduling at [facility]) Start: 03-20-2024 ambulatory [facility] Facility: [facility] Start: 02-22-2024 End: 02-22-2024 Telephone encounter Gasper Nelson DO Work Phone: [facility] Comment on above: Referral (Dr Weiss) Start: 02-22-2024 End: 02-22-2024 Office outpatient visit 25 minutes Gasper Nelson DO Work Phone: [facility] Comment on above: Chronic obstructive pulmonary disease, unspecified COPD type (HCC) (Primary Dx); Abnormal CT scan of lung; Hypercholesterolemia; Colon cancer screening; Breast cancer screening by mammogram; Depression, unspecified depression type; Gastroesophageal reflux disease without esophagitis; Ex-smoker for less than 1 year Start: 02-22-2024 End: 02-22-2024 ambulatory [facility] Start: 02-05-2024 Telephone encounter Gasper Maggei Yair etrilla DO Work Phone: [facility] Comment on above: Results Start: 01-02-2024 Refill Gasper Serrano Puneet cama DO Work Phone: [facility] Start: 01-01-2024 Orders Only Gasper cama DO Work Phone: [facility] Start: 12-24-2023 Orders Only Gasper Serrano Puneet cama DO Work Phone: [facility] Start: 12-22-2023 Telephone encounter Gasper Maggie Yair etrilla DO Work Phone: [facility] Comment on above: Appointment ([facility]) Start: 12-21-2023 Orders Only Gasper Serrano Puneet cama DO Work Phone: [facility] Comment on above: COPD with acute exac erbation (HCC); Lower resp. tract infection Start: 12-18-2023 End: 12-18-2023 Subsequent hospital visit by physician Gasper Nelson DO Work Phone: [facility] Comment on above: Smoker; Moderate smoker (20 or less per day) Start: 12-17-2023 Refill Gasper Maggie Puneet lla DO Work Phone: [facility] Start: 08-01-2023 Telephone encounter Gasper Mazariegos etrilla DO Work Phone: [facility] Comment on above: Orders (LDCT due in November 2023) Start: 07-31-2023 End: 07-31-2023 Office outpatient visit 15 minutes Gasper Serrano Puneetsam DO Work Phone: [facility] Comment on above: Chronic obstructive pulmonary disease, unspecified COPD type (HCC) (Primary Dx); Depression, unspecified depression type; Gastroesophageal reflux disease without esophagitis; Hypercholesterolemia Start: 03-14-2023 Telephone encounter Gasper byrnes DO Work Phone: [facility] Comment on above: Handicap Placard Start: 02-27-2023 Telephone encounter Gasper Mazariegos etgretchen DO Work Phone: [facility] Comment on above: Scheduling Start: 01-15-2023 Orders Only Gasper vargas DO Work Phone: [facility] Start: 01-13-2023 Telephone encounter Gasper byrnes DO Work Phone: [facility] Comment on above: Orders (LDCT) Start: 01-13-2023 End: 01-13-2023 Office outpatient visit 25 minutes Gasper Nelson DO Work Phone: [facility] Comment on above: Chronic obstructive pulmonary disease, unspecified COPD type (HCC) (Primary Dx); Hypercholesterolemia; Gastroesophageal reflux disease without esophagitis; Smoker; Depression, unspecified depression type Start: 11-14-2022 ambulatory [facility] Start: 11-14-2022 Patient encounter procedure [facility] Start: 11-14-2022 End: 11-14-2022 Office outpatient visit 25 minutes Siomara Estrada PA-C Work Phone: [facility] Comment on above: COPD with acute exac erbation (CMS/HCC) (HCC) (Primary Dx); Lower resp. tract infection; Smoking Start: 10-24-2022 End: 10-24-2022 ambulatory [facility] Work Phone: Start: 10-24-2022 End: 10-24-2022 Patient encounter procedure [facility] Start: 10-20-2022 Telephone encounter Danish berumen DO Work Phone: [facility] Comment on above: Orders Start: 10-17-2022 Telephone encounter Danish berumen DO Work Phone: [facility] Comment on above: Orders (Fax 10/03/22 XR Chest SULAIMAN, Pt at [facility]) Start: 10-04-2022 Telephone encounter Danish berumen DO Work Phone: [facility] Comment on above: Advice Only (cough) Start: 10-03-2022 End: 10-03-2022 Patient encounter procedure Danish Davila DO Work Phone: [facility] Comment on above: Medicare annual well ness visit, subsequent (Primary Dx); Cough, unspecified type; Chronic obstructive pulmonary disease, unspecified COPD type (HCC); Anxiety; Depression, unspecified depression type; Hypercholesterolemia; Mammogram declined; Colonoscopy refused Start: 04-22-2022 End: 04-22-2022 ambulatory [facility] Work Phone: Start: 04-22-2022 End: 04-22-2022 Patient encounter procedure [facility] Start: 01-31-2022 End: 01-31-2022 Emergency department patient visit [facility] Start: 01-11-2022 End: 01-11-2022 Subsequent hospital visit by physician Danish Davila DO Work Phone: [facility] Comment on above: Menopause Start: 01-10-2022 End: 01-10-2022 Patient encounter procedure [facility] Procedures Date Procedure Procedure Detail Performing Clinician Start: 04-29-2024 Colonoscopy Gasper godinez DO Work Phone: Start: 12-18-2023 Lipid 1996 panel - S anabel or Plasma Gasper Nleson DO Work Phone: Start: 01-13-2023 Lipid 1996 [...] 04-29-2034 Screening for malignant neoplasm of colon [facility] Start: 12-17-2028 Lipid panel Lipid Panel [facility] Start: 01-14-2028 Lipid panel Lipid Panel [facility] Start: 06-04-2026 Lipid panel Lipid Panel [facility] Start: 11-12-2025 COVID-19 Vaccine ( season) COVID-19 Vaccine ( season) [facility] Comment on above: Postponed from 05/05/2024 (Patient Refus ed) Start: 11-12-2025 RSV Immunization for Adults (1 - Risk 60-74 years 1-dose series) RSV Immunization for Adults (1 - Risk 60-74 years 1-dose series) [facility] Comment on above: Postponed from 2014 (Patient Refus ed) Start: 05-15-2025 Depression Monitoring Depression Monitoring [facility] Start: 05-12-2025 End: 05-12-2025 Patient encounter procedure [facility] Start: 05-05-2025 Influenza vaccination Influenza Vaccine (Season Ended) [facility] Start: 03-03-2025 Influenza vaccination Influenza Vaccine (#1) [facility] Comment on above: Postponed from 05/05/2024 (Patient Refus ed) Start: 11-12-2024 End: 11-12-2025 CBC W Auto Differential panel - Blood CBC auto differential Lab Routine Routine general medical examination at [facility] Hypercholesterolemia Expected: 11/12/2024 (Approximate), Expires: 11/12/2025 [facility] Comment on above: Expected: 11/12/2024 (Approximate), Expi res: 11/12/2025 Start: 11-12-2024 End: 11-12-2025 Comprehensive metabolic 1998 panel - Serum or Plasma Comprehensive metabolic panel Lab Routine Routine general medical examination at [facility] Hypercholesterolemia Expected: 11/12/2024 (Approximate), Expires: 11/12/2025 [facility] Comment on above: Expected: 11/12/2024 (Approximate), Expi res: 11/12/2025 Start: 11-12-2024 End: 01-12-2026 DBT Breast - bilateral screening Bilateral screening mammogram with tomosynthesis Imaging Routine Encounter for screening mammogram for malignant neoplasm of breast Expected: 11/12/2024, Expires: 01/12/2026 [facility] [email or web address] Work Phone: Comment on above: Expected: 11/12/2024, Expires: Start: 11-12-2024 End: 11-12-2025 Lipid 1996 panel - Serum or Plasma Lipid panel Lab Routine Hypercholesterolemia Expected: 11/12/2024 (Approximate), Expires: 11/12/2025 [facility] Comment on above: Expected: 11/12/2024 (Approximate), Expi res: 11/12/2025 Start: 11-12-2024 End: 11-12-2024 Patient encounter procedure [facility] [place] Start: 09-30-2024 End: 09-30-2024 Patient encounter procedure 09/30/2024 4:00 PM EST Office Visit [facility] [place] [address] [place] [address] Gasper Nelson DO [address] [place] [place] [address] [facility] [place] Start: 09-04-2024 Medicare Advantage Annual Wellness Visit Medicare [facility] Annual Wellness Visit [facility] Start: 08-21-2024 End: 08-21-2024 Patient encounter procedure [facility] Start: 07-29-2024 End: 07-29-2024 Patient encounter procedure 07/29/2024 11:30 AM EST Appointment [facility] [address] [place] [address] Gasper Nelson, DO [address] [place] [address] [facility] [address] Start: 07-29-2024 Subsequent hospital visit by physician 07/29/2024 11:30 AM EST Hospital Encounter [facility] [address] [place] [address] Gasper Nelson, DO [address] [place] [address] [facility] [address] Start: 05-05-2024 COVID-19 Vaccine ( season) COVID-19 Vaccine ( season) [facility] Start: 05-05-2024 COVID-19 Vaccine ( season) COVID-19 Vaccine ( season) [facility] Start: 05-05-2024 Influenza vaccination [facility] Start: 04-29-2024 End: 04-29-2024 Patient encounter procedure 04/29/2024 4:00 PM EDT Office Visit [facility] [address] [place] [address] Gasper Nelson, DO [address] [place] [place] [address] [facility] Start: 06-22-2024 Screening for malignant neoplasm of colon [facility] Start: 02-22-2024 End: 02-21-2025 CBC W Auto Differential panel - Blood CBC auto differential Lab Routine Chronic obstructive pulmonary disease, unspecified COPD type (HCC) Expected: 02/22/2024 (Approximate), Expires: 02/21/2025 [facility] Comment on above: Expected: 02/22/2024 (Approximate), Expi res: 02/21/2025 Start: 02-22-2024 End: 02-21-2025 Complete PFT pre and post bronchodilator Complete PFT pre and post bronchodilator PFT Routine Chronic obstructive pulmonary disease, unspecified COPD type (HCC) Expected: 02/22/2024 (Approximate), Expires: 02/21/2025 [facility] Comment on above: Expected: 02/22/2024 (Approximate), Expi res: 02/21/2025 Start: 02-22-2024 End: 02-21-2025 Comprehensive metabolic 1998 panel - Serum or Plasma Comprehensive metabolic panel Lab Routine Chronic obstructive pulmonary disease, unspecified COPD type (HCC) Expected: 02/22/2024 (Approximate), Expires: 02/21/2025 [facility] Comment on above: Expected: 02/22/2024 (Approximate), Expi res: 02/21/2025 Start: 02-22-2024 End: 02-21-2025 CT Chest for screening WO contrast CT lung screening follow up low dose Imaging Routine Abnormal CT scan of lung Smoker Expected: 02/22/2024, Expires: 02/21/2025 [facility] Work Phone: Comment on above: Expected: 02/22/2024, Expires: Start: 02-22-2024 End: 04-23-2025 DBT Breast - bilateral screening Bilateral screening mammogram with tomosynthesis Imaging Routine Breast cancer screening by mammogram Expected: 02/22/2024, Expires: 04/23/2025 [facility] Work Phone: Comment on above: Expected: 02/22/2024, Expires: Start: 02-22-2024 End: 02-22-2024 Patient encounter procedure 02/22/2024 1:00 PM EDT Office Visit [facility] [address] [place] [address] Gasper Nelson, [address] [place] [place] [address] [facility] Start: 02-14-2024 Screening for malignant neoplasm of colon [facility] Start: 02-05-2024 End: 02-05-2024 Patient encounter procedure 02/05/2024 9:00 AM EDT Office Visit [facility] [address] [place] [address] Gasper Nelson, [address] [place] [place] [address] [facility] Start: 01-22-2024 End: 01-22-2024 Patient encounter procedure 01/22/2024 10:00 AM EDT Office Visit [facility] [address] [place] [address] Gasper Nelson, [address] [place] [place] [address] [facility] Start: 11-02-2023 Medicare Advantage Annual Wellness Visit (AWV) Medicare Advantage Annual Wellness Visit (AWV) [facility] Start: 10-03-2023 Depression Screening Depression Screening [facility] Start: 09-04-2023 Medicare Advantage Annual Wellness Visit Medicare Advantage Annual Wellness Visit [facility] Start: 08-01-2023 End: 08-01-2024 CT Chest for screening WO contrast CT lung screening low dose Imaging Routine Smoker Moderate smoker (20 or less per day) Expected: 08/01/2023, Expires: 08/01/2024 [facility] [email or web address] [facility] Work Phone: Comment on above: Expected: 08/01/2023, Expires: Start: 07-31-2023 End: 07-31-2024 Lipid 1996 panel - Serum or Plasma Lipid panel Lab Routine Hypercholesterolemia Expected: 07/31/2023 (Approximate), Expires: 07/31/2024 [facility] [employer] Work Phone: Comment on above: Expected: 07/31/2023 (Approximate), Expi res: 07/31/2024 Start: 07-14-2023 End: 07-14-2023 Patient encounter procedure [facility] Start: 05-05-2023 COVID-19 Vaccine () COVID-19 Vaccine () [facility] Start: 05-05-2023 Influenza vaccination Influenza Vaccine (#1) [facility] Start: 04-03-2023 End: 04-03-2023 Patient encounter procedure 04/03/2023 1:15 PM EDT Appointment [facility] [address] [place] [address] Gasper Nelson, DO [address] [place] [address] [facility] [address] Start: 04-02-2023 Depression Monitoring Depression Monitoring [facility] Start: 01-23-2023 End: 01-23-2023 Patient encounter procedure 01/23/2023 Office Visit Family Medicine 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, 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 [address] [place], [place] [id number] [facility] Start: 01-13-2023 End: 01-14-2024 CBC W Auto Differential panel - Blood CBC auto differential Lab Routine Smoker Expected: 01/13/2023 (Approximate), Expires: 01/14/2024 [facility] [employer] Work Phone: Comment on above: Expected: 01/13/2023 (Approximate), Expi res: 01/14/2024 Start: 01-13-2023 End: 01-14-2024 Comprehensive metabolic 1998 panel - Serum or Plasma Comprehensive metabolic panel Lab Routine Hypercholesterolemia Expected: 01/13/2023 (Approximate), Expires: 01/14/2024 [facility] Comment on above: Expected: 01/13/2023 (Approximate), Expi res: 01/14/2024 Start: 01-13-2023 End: 01-14-2024 CT Chest for screening WO contrast CT lung screening low dose Imaging Routine Smoker Expected: 01/13/2023, Expires: 01/14/2024 [facility] Work Phone: Comment on above: Expected: 01/13/2023, Expires: Start: 01-13-2023 End: 01-14-2024 Lipid 1996 panel - Serum or Plasma Lipid panel Lab Routine Hypercholesterolemia Expected: 01/13/2023 (Approximate), Expires: 01/14/2024 [facility] Comment on above: Expected: 01/13/2023 (Approximate), Expi res: 01/14/2024 Start: 01-13-2023 End: 01-14-2024 Thyrotropin [Units/volume] in Serum or Plasma TSH Lab Routine Hypercholesterolemia Expected: 01/13/2023 (Approximate), Expires: 01/14/2024 [facility] Comment on above: Expected: 01/13/2023 (Approximate), Expi res: 01/14/2024 Start: 01-11-2023 Screening for malignant neoplasm of breast Mammogram [facility] Start: 01-05-2023 Annual Wellness Visit (AWV) Annual Wellness Visit (AWV) [facility] Start: 12-24-2022 Depression Monitoring Depression Monitoring [facility] Start: 10-18-2022 End: 10-18-2023 Alanine aminotransferase [Enzymatic activity/volume] in Serum or Plasma ALT Lab Routine Hypercholesterolemia Expected: 10/18/2022 (Approximate), Expires: 10/18/2023 [facility] Comment on above: Expected: 10/18/2022 (Approximate), Expi res: 10/18/2023 Start: 10-18-2022 End: 10-18-2023 Aspartate aminotransferase [Enzymatic activity/volume] in Serum or Plasma AST Lab Routine Hypercholesterolemia Expected: 10/18/2022 (Approximate), Expires: 10/18/2023 [facility] Comment on above: Expected: 10/18/2022 (Approximate), Expi res: 10/18/2023 Start: 10-18-2022 End: 10-18-2023 Lipid 1996 panel - Serum or Plasma Lipid panel Lab Routine Hypercholesterolemia Expected: 10/18/2022 (Approximate), Expires: 10/18/2023 [facility] Comment on above: Expected: 10/18/2022 (Approximate), Expi res: 10/18/2023 Start: 10-03-2022 End: 10-03-2023 XR Chest 2 Views XR chest 2 views Imaging Routine Cough, unspecified type Expected: 10/03/2022, Expires: 10/03/2023 [facility] Work Phone: Comment on above: Expected: 10/03/2022, Expires: Start: 06-04-2022 Lipid panel Lipids [facility] Start: 04-18-2022 End: 04-18-2022 Patient encounter procedure 04/18/2022 Office Visit Family Medicine Danihs Davila, DO [address] [place] [address] [facility] Start: 02-03-2022 Pneumococcal 65+ years Vaccine (2 - PCV) Pneumococcal 65+ years Vaccine (2 - PCV) [facility] Start: 02-03-2022 Pneumococcal Vaccine: 65+ Years (2 - PCV) Pneumococcal Vaccine: 65+ Years (2 - PCV) [facility] Start: 01-31-2022 [facility] Work Phone: Start: 2014 RSV Immunization aged 60 or older (1 - 1-dose 60+ series) RSV Immunization aged 60 or older (1 - 1-dose 60+ series) [facility] Start: 2014 RSV Immunization for Adults (1 - Risk 60-74 years 1-dose series) RSV Immunization for Adults (1 - Risk 60-74 years 1-dose series) [facility] Start: 2009 Screening for osteoporosis DEXA (modify frequency per FRAX score) [facility] Start: 2004 Screening for malignant neoplasm of breast Breast cancer screen [facility] Start: 2004 Shingles vaccine (1 of 2) Shingles vaccine (1 of 2) [facility] Start: 2004 Zoster Vaccines (1 of 2) Zoster Vaccines (1 of 2) [facility] Start: 1999 Screening for malignant neoplasm of colon [facility] Start: 1973 DTaP/Tdap/Td vaccine (1 - Tdap) DTaP/Tdap/Td vaccine (1 - Tdap) [facility] Start: 1973 DTaP/Tdap/Td Vaccines (1 - Tdap) DTaP/Tdap/Td Vaccines (1 - Tdap) [facility] Start: 1972 Hepatitis C screening [facility] Start: 1954 Hepatitis B Vaccines (1 of 3 - 3-dose series) Hepatitis B Vaccines (1 of 3 - 3-dose series) [facility] Start: 1955 Screening for malignant neoplasm of colon [facility] End: 12-18-2023 CT Chest for screening WO contrast [facility] Work Phone: Comment on above: Once for 1 Occurrences starting 12/18/19 until 12/18/2023 End: 07-29-2024 CT Chest for screening [facility] Work Phone: Comment on above: Once for 1 Occurrences starting 07/29/20 until 07/29/2024 OUTSIDE PROCEDURE SCAN OUTSIDE P ROCEDURE SCAN Procedures Ordered: 12/15/2023 [facility] Comment on above: Ordered: 12/15/2023 Patient Education ED Pneumonia (Adult) [facility] Work Phone: Patient referral [facility] Work Phone: End: 01-11-2022 Screening digital breast tomosynthesis [facility] Work Phone: Comment on above: Once for 1 Occurrences starting 01/12/20 until 01/11/2022 Immunizations Immunization Date Immunization Notes Care Provider Fa vielka 01-13-2023 Pneumococcal Conjuga te PCV20, Pf (Prevnar 20) Gasper Nelson DO Work Phone: [facility] 05-26-2022 Covid-19, Pfizer Bivalent Booster, (Age 12y+), Im, 30 Mcg/0e Gasper Nelson DO Work Phone: [facility] 05-26-2022 Influenza, High-dose Seasonal, Quadrivalent, Preservative Free Gasper Nelson DO Work Phone: [facility] 05-26-2022 influenza virus vacc ine, unspecified formulation Gasper Nelson DO Work Phone: [facility] 12-11-2021 Covid-19, Pfizer Gra y Top, Do Not Dilute, (Age 12 Y+), Im, L Jolanta Glover RN [facility] 06-28-2021 Pfizer SARS-CoV-2 Vaccination Jolanta Glover RN [facility] 06-04-2021 Influenza, High-dose , Quadv, 65 yrs +, IM (Fluzone) Danish Davila DO Work Phone: [facility] Work Phone: 02-03-2021 pneumococcal polysaccharide vaccine, 23 valent Danish Kamleshvasile DO Work Phone: [facility] Work Phone: 10-14-2020 COVID-19, Pfizer Pur ple top, DILUTE for use, 12+ yrs, 30mcg/0.3mL dose Danish Carmonasachavasile DO Work Phone: [facility] Work Phone: 09-23-2020 COVID-19, Pfizer Pur ple top, DILUTE for use, 12+ yrs, 30mcg/0.3mL dose Danish Davila DO Work Phone: [facility] 09-25-2013 hepatitis B vaccine, pediatric or pediatric/adolescent dosage [facility] 05-05-2013 Influenza virus vaccine [facility] 05-05-2013 influenza, seasonal, injectable Gasper Nelson DO Work Phone: [facility] 09-04-2009 Pneumococcal Vaccine [facility] Work Phone: 09-04-2009 pneumococcal vaccine , unspecified formulation [facility] 07-14-2009 novel influenza-H1N1 -09, preservative-free, injectable Gasper Nelson DO Work Phone: [facility] 11-28-2008 hepatitis B vaccine, pediatric or pediatric/adolescent dosage Gasper Nelson DO Work Phone: [facility] 06-02-2008 hepatitis B vaccine, pediatric or pediatric/adolescent dosage Gasper Nelson DO Work Phone: [facility] 05-02-2008 hepatitis B vaccine, pediatric or pediatric/adolescent dosage Gasper Nelson DO Work Phone: [facility] Payers Date Payer Category Payer Self-pay [id number] 2019 Medicare [employer] H[employer]AN MEDICARE [id number] 2019-Present [address] [address] [place] [address] Medicare HMO [id number] 2019 Medicare HMO [employer]ICARE [id number] 2019 Medicare [id number] Unknown [id number] 2 Unknown [id number] 2 Unknown [id number] 2 Social History Date Type Detail Facility Start: 09-24-2019 End: 02-22-2024 Tobacco smoking status NHIS Smokes tobacco daily [employer] Work Phone: Start: 09-24-2019 History of tobacco use Cigarette Smo ker [employer] Work Phone: Start: 03-24-2020 End: 11-12-2024 Cigarettes smoked current (pack per day) - Reported 1 [employer] Phone: Start: 03-24-2020 End: 02-22-2024 Tobacco use and exposure Smokeless tobacco non-user [employer] Work Phone: Start: 12-24-2021 End: 02-10-2025 Alcohol intake Ex-drinker (finding) [employer] Phone: Start: 05-06-2021 End: 01-04-2022 History SDOH Alcohol Frequency 1 [employer] Phone: Start: 03-24-2020 History SDOH Social Connections Phone 2 [employer] Phone: Start: 03-24-2020 History SDOH Social Connections [employer] 3 [employer] Phone: Start: 03-24-2020 History SDOH Social Connections Living 4 [employer] Phone: Start: 01-04-2022 History SDOH Physica l Activity DPW 0 [employer] Phone: Start: 1955 Sex Assigned At Female S MA Start: 07-19-2015 End: 01-31-2022 Tobacco smoking status NHIS Unknown if ever smoked [facility] Start: 05-23-2014 None [place] [facility] Start: 05-07-2021 Homeless [facility] Start: 05-07-2021 [facility] Start: 11-04-2022 End: 01-13-2023 Exposure to SARS-CoV-2 (event) Not sure [facility] Start: 01-13-2023 End: 11-12-2024 Tobacco use panel [facility] Start: 06-23-2022 Gender identity Identifies as female gender (finding) [facility] Start: 06-23-2022 Sexual orientation Heterosexual (homar you) [facility] Start: 04-04-2022 Sex Female (finding) [facility] How often do you nee d to have someone help you when you read instructions, pamphlets, or other written material from your doctor or pharmacy [SILS] Never [facility] Has the Physician [facility]erral Network (PRN), [employer], [employer], or water [employer] threatened to shut off services in your home in past 12Mo No [facility] Are you now , , , , never or living with a partner? [facility] How often to you hav e a drink containing alcohol? Never [facility] Do you feel stress - tense, restless, nervous, or anxious, or unable to sleep at night because your mind is troubled all the time - these days [OSQ] Not at all [facility] (I/We) worried wheth er (my/our) food would run out before (I/we) got money to buy more. Never true [facility] Clinical Notes 10-03-2022 to 02-11-2025 Telephone Encounter - Mia Alvarez MA - 02/11/2025 9:02 AM EDTTelephone Encounter - Mia Alvarez MA - 02/11/2025 9:02 AM EDTAddendum Note - Juju Patton MA - 02/10/2025 3:52 PM EDT Note Date & Type Note Facility 02-11-2025 Telephone encounter Note Patient advised and voiced understanding. [facility] 02-11-2025 Miscellaneous Notes Patient advised and voiced [...] in. Please advise documented in this encounter [facility] 02-10-2025 Telephone encounter Note Called patient to relay provider message left voicemail to call office back. Mychart message sent to patient. Please relay message to patient. [facility] 02-10-2025 Miscellaneous Notes Called patient to relay [...] in. Please advise documented in this encounter [facility] 02-10-2025 Note Addended by: Ki PATTON on: 02/10/2025 03:52 PM Modules accepted: Orders [facility] 02-10-2025 Note Addended by: Ki PATTON on: 02/10/2025 03:52 PM Modules accepted: Orders [facility] 02-10-2025 Note Addended by: Ki PATTON on: 02/10/2025 03:52 PM Modules accepted: Orders [facility] 02-10-2025 Note Addended by: Ki PATTON on: 02/10/2025 03:52 PM Modules accepted: Orders [facility] 02-10-2025 Note Addended by: Ki PATTON on: 02/10/2025 03:52 PM Modules accepted: Orders [facility] 02-10-2025 Telephone encounter Note Message released to [...] a new script sent in. Please advise [facility] 02-10-2025 Telephone encounter Note Recent Visits Date Type Provider Dept 11/12/24 Office Visit Siomara Estrada PA-C [facility] 02/22/24 Office Visit Gasper Serrano [place], [facility] Showing recent visits within past 365 [...] Most recent labs completed in chart? N/A [facility] 02-10-2025 Miscellaneous Notes Recent Visits Date Type Provider Dept 11/12/24 Office Visit Siomara Estrada PA-C [facility] 02/22/24 Office Visit Gasper Maggie Nelson, [facility] Showing recent visits within past 365 [...] in chart? N/A documented in this encounter [facility] 12-13-2024 Telephone encounter Note Recent Visits Date Type Provider Dept 11/12/24 Office Visit Siomara Estrada PA-C [facility] 02/22/24 Office Visit Gasper Nelson DO [facility] Showing recent visits within past 365 [...] CHOLHDLCRATI 4.2 01/13/2023 NONHDLCHOLES 174 (H) 01/13/2023 [facility] 12-13-2024 Miscellaneous Notes Recent Visits Date Type Provider Dept 11/12/24 Office Visit Siomara Estrada PA-C [facility] 02/22/24 Office Visit Gasper Nelson DO [facility] Showing recent visits within past 365 [...] 174 (H) 01/13/2023 documented in this encounter [facility] 12-02-2024 Note Outreach to patient to provide information on how to enroll in silver sneakers and she requested refill of Trazadone for sleep issues last filled in 06/28 for 90 days, last OV 11/12/24 [facility] 12-02-2024 Telephone encounter Note Outreach to patient to provide information on how to enroll in silver sneakers and she requested refill of Trazadone for sleep issues last filled in 06/28 for 90 days, last OV 11/12/24 [facility] 12-02-2024 Miscellaneous Notes Outreach to patient to provide information on how to enroll in silver sneakers and she requested refill of Trazadone for sleep issues last filled in 06/28 for 90 days, last OV 11/12/24 documented in this encounter [facility] 11-12-2024 Evaluation + Plan note Associated Problem(s): [...] as her levels have been adequately controlled [facility] 11-12-2024 Miscellaneous Notes Associated Problem(s): Hypercholesterolemia - [...] encouraged smoking cessation. documented in this encounter [facility] 11-12-2024 Evaluation + Plan note Associated Problem(s): GERD (gastroesophageal reflux disease) - Chronic stable she will continue on esomeprazole 40 mg daily. [facility] 11-12-2024 Evaluation + Plan note Associated Problem(s): COPD (chronic obstructive pulmonary disease) (HCC) - Chronic stable patient was recently treated for flareup with amoxicillin and prednisone she can take the prednisone she is requesting a lower dose Medrol Dosepak and a second round of antibiotics that she started in some generalized wheezing and congestion strongly encouraged smoking cessation. [facility] 11-12-2024 History of Present illness Narrative Images from the original note were not included. [facility] - [address] [facility] [address] Dept: [phone] Dept Chief Complaint: Ashley Gómez is an [...] this issue and continues to work at [employer]. Would like to get involved with [employer] sneakers. 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 A preventive dental visit is recommended every 6 months. Try to get at least 150 minutes of exercise per week or 10,000 steps per day on a pedometer. You need 1200-1500mg of calcium and 2055-8923 international units of vitamin D per day. [...] or a motorcycle documented in this encounter [facility] 10-31-2024 History of Present illness Narrative Images from the original note were not included. [facility] [address] [facility] [address] Dept: [phone] Dept Loc: [phone] Patient was identified and seen today via [...] stated that they are currently in the [facility]. If the patient is a minor, permission [...] 10/31/2024 12:20 PM documented in this encounter [facility] 10-31-2024 Telephone encounter Note S: Patient spoke [...] not coughing Protocols used: Cough - Acute Abj-Ypymervfbz-UTQMW-AH [facility] 10-31-2024 Miscellaneous Notes S: Patient spoke with [...] not coughing Protocols used: Cough - Acute Avd-Kfamvyjouo-FHKNK-AH documented in this encounter [facility] 10-01-2024 Telephone encounter Note Received signed receipt of certified letter sent to patient. Scanned to media in chart. [facility] 10-01-2024 Miscellaneous Notes Received signed receipt of certified letter sent to patient. Scanned to media in chart. No auth needed. Faxed orders to [facility]-Scheduling for pt to be sched - SCS [...] and assist patient with scheduling. She prefers [place] for imaging location and is available on [...] for the recommended 3-month follow-up CT chest. [facility] central scheduling and provider office have made multiple attempts to contact patient to assist with scheduling imaging. Navigator mailed patient lung screening follow-up reminder letter and lung nodule patient information. If patient does not call in to schedule imaging, navigator will plan to send certified letter. documented in this encounter [facility] 09-30-2024 Telephone encounter Note Recent Visits Date Type Provider Dept 02/22/24 Office Visit Gasper Nelson DO [facility] Showing recent visits within past 365 days and meeting all other requirements Future Appointments Date Type Provider Dept 11/12/24 Appointment Gasper Nelson DO [facility] Showing future appointments within next 90 [...] recent labs completed in chart? N/A None [facility] 09-30-2024 Miscellaneous Notes Recent Visits Date Type Provider Dept 02/22/24 Office Visit Gasper Nelson DO [facility] Showing recent visits within past 365 days and meeting all other requirements Future Appointments Date Type Provider Dept 11/12/24 Appointment Gasper Nelson DO [facility] Showing future appointments within next 90 [...] chart? N/A None documented in this encounter [facility] 09-16-2024 Telephone encounter Note Recent Visits Date [...] CHOLHDLCRATI 4.2 01/13/2023 NONHDLCHOLES 174 (H) 01/13/2023 [facility] 09-16-2024 Miscellaneous Notes Recent Visits Date Type [...] 174 (H) 01/13/2023 documented in this encounter [facility] 07-24-2024 Telephone encounter Note Recent Visits Date Type Provider Dept 02/22/24 Office Visit Gasper Nelson DO [facility] 07/31/23 Office Visit Gasper Nelson DO [facility] Showing recent visits within past 365 [...] CHOLHDLCRATI 4.2 01/13/2023 NONHDLCHOLES 174 (H) 01/13/2023 [facility] 07-24-2024 Miscellaneous Notes Recent Visits Date Type Provider Dept 02/22/24 Office Visit Gasper Serrano [place], DO [facility] 07/31/23 Office Visit Gasper Serrano Puneetdorinaki DO [facility] Showing recent visits within past 365 days and meeting all other requirements Future Appointments Date Type Provider Dept 08/21/24 Appointment Gasper NelsonDO [facility] Showing future appointments within next 90 [...] 174 (H) 01/13/2023 documented in this encounter [facility] 06-28-2024 Telephone encounter Note Reason for call: [...] to get her scheduled. Thank you Contact [facility] 06-28-2024 Miscellaneous Notes Reason for call: Pari, [...] Thank you Contact documented in this encounter [facility] 06-28-2024 Telephone encounter Note No auth needed. Faxed orders to [facility]-Scheduling for pt to be sched - [facility] will sched/advise pt. My chart mess sent to patient with info to sched. [facility] 06-28-2024 Miscellaneous Notes No auth needed. Faxed [...] and assist patient with scheduling. She prefers [facility] for imaging location and is available on [...] for the recommended 3-month follow-up CT chest. [facility] central scheduling and provider office have made multiple attempts to contact patient to assist with scheduling imaging. Navigator mailed patient lung screening follow-up reminder letter and lung nodule patient information. If patient does not call in to schedule imaging, navigator will plan to send certified letter. documented in this encounter [facility] 06-27-2024 Telephone encounter Note Vincent Perez, It looks like the patient navigator has done all that she can do. So it looks like all avenues have been exhausted to try and reach this patient to schedule. [facility] 06-27-2024 Miscellaneous Notes Vincent Perez, It looks [...] and assist patient with scheduling. She prefers [facility] for imaging location and is available on [...] for the recommended 3-month follow-up CT chest. [facility] central scheduling and provider office have made multiple attempts to contact patient to assist with scheduling imaging. Navigator mailed patient lung screening follow-up reminder letter and lung nodule patient information. If patient does not call in to schedule imaging, navigator will plan to send certified letter. documented in this encounter [facility] 06-27-2024 Telephone encounter Note To April to follow up [facility] 06-27-2024 Telephone encounter Note Mrs. Gómez called in after receiving certified letter. She would like to return to complete the recommended lung screening 3 month follow-up imaging previously ordered by Dr. Nelson. Will send message to provider office to place new referral for imaging and assist patient with scheduling. She prefers [facility] for imaging location and is available on Monday if there are any appointments available. [facility] 06-20-2024 Note Patient still has no t completed the recommended lung screening follow-up imaging. Navigator mailed certified letter, lung nodule education materials, and offered to assist with overcoming barriers to care. [facility] 06-20-2024 Telephone encounter Note Patient still has not completed the recommended lung screening follow-up imaging. Navigator mailed certified letter, lung nodule education materials, and offered to assist with overcoming barriers to care. [facility] 06-20-2024 Miscellaneous Notes Patient still has not completed the recommended lung screening follow-up imaging. Navigator mailed certified letter, lung nodule education materials, and offered to assist with overcoming barriers to care. Ms. Gómez had a Lung RADS [address] scan on 12/18/2023. Her primary care provider placed a referral for the recommended 3-month follow-up CT chest. [facility] central scheduling and provider office have made multiple attempts to contact patient to assist with scheduling imaging. Navigator mailed patient lung screening follow-up reminder letter and lung nodule patient information. If patient does not call in to schedule imaging, navigator will plan to send certified letter. documented in this encounter [facility] 06-11-2024 Telephone encounter Note RX loaded Next ov 08/21/24 [facility] 06-11-2024 Miscellaneous Notes RX loaded Next ov [...] the medication: Yes documented in this encounter [facility] 06-11-2024 Telephone encounter Note Medication name: traZODone [...] prior to picking up the medication: Yes [facility] 04-29-2024 Note [facility] Medical Records Department [address] [place] [address] History Physical Exam 04/29/24 0756 MR#: [id number] Acct: [id number] Name: ASHLEY GÓMEZ Rep #: [id number] : 1955 68 From: Slim Friend DO PCP: Dr. Danish Davila, DO Status:[facility] Location: [address] - General General Date of Admission: [...] Overall she is in fairly good health. [facility] Medical History (Updated 04/26/24 @ 14:43 by [...] none current occupational status: employed current occupation: [employer] Smoking Status: Former smoker Tobacco: How many [...] applicable): CC: Dr. Danish Davila DO; Slim Wiess, Signed [facility] 04-23-2024 Note Ms. Gómez had a Edenilson g RADS [address] scan on 12/18/2023. Her primary care provider placed a referral for the recommended 3-month follow-up CT chest. [facility] central scheduling and provider office have made multiple attempts to contact patient to assist with scheduling imaging. Navigator mailed patient lung screening follow-up reminder letter and lung nodule patient information. If patient does not call in to schedule imaging, navigator will plan to send certified letter. [facility] 04-23-2024 Telephone encounter Note Ms. Gómez had a Lung RADS [address] scan on 12/18/2023. Her primary care provider placed a referral for the recommended 3-month follow-up CT chest. [facility] central scheduling and provider office have made multiple attempts to contact patient to assist with scheduling imaging. Navigator mailed patient lung screening follow-up reminder letter and lung nodule patient information. If patient does not call in to schedule imaging, navigator will plan to send certified letter. [facility] 04-17-2024 Telephone encounter Note Recent Visits Date Type Provider Dept 02/22/24 Office Visit Gasper Nelson DO [facility] 07/31/23 Office Visit Gasper Nelson DO [facility] Showing recent visits within past 365 [...] medications from any other provider? No None [facility] 04-17-2024 Miscellaneous Notes Recent Visits Date Type Provider Dept 02/22/24 Office Visit Gasper Nelson DO [facility] 07/31/23 Office Visit Gasper Nelson DO [facility] Showing recent visits within past [...] provider? No None documented in this encounter [facility] 04-12-2024 Telephone encounter Note Orders cancelled [facility] 04-12-2024 Miscellaneous Notes Orders cancelled We have been unable to reach your patient to schedule their testing. Test Name: CT lung screening follow up, PFT and Mammo 1st Attempt: 03/30/24 2nd Attempt: 04/11/24 Thanks, [facility] Central Scheduling documented in this encounter [facility] 04-11-2024 Telephone encounter Note We have been unable to reach your patient to schedule their testing. Test Name: CT lung screening follow up, PFT and Mammo 1st Attempt: 03/30/24 2nd Attempt: 04/11/24 [facility], [facility] Scheduling [facility] 04-11-2024 Miscellaneous Notes We have been unable to reach your patient to schedule their testing. Test Name: CT lung screening follow up, PFT and Mammo 1st Attempt: 03/30/24 2nd Attempt: 04/11/24 Thanks, [facility] Central Scheduling documented in this encounter [facility] 02-22-2024 Note Referral / orders pe nded for dx and doctor's signature [facility] 02-22-2024 Telephone encounter Note Referral / orders pended for dx and doctor's signature [facility] 02-22-2024 Miscellaneous Notes Referral / orders pended for dx and doctor's signature documented in this encounter [facility] 02-22-2024 History of Present illness Narrative Images from the original note were not included. [facility] [address] [place] [address] [address] [facility] [address] Visit type: Established Patient Reason [...] or axillary adenopathy documented in this encounter [facility] 02-09-2024 Telephone encounter Note Pt scheduled with Dr Nelson 02/22/24 [facility] 02-09-2024 Miscellaneous Notes Pt scheduled with Dr Nelson 02/22/24 Left message for patient to return call to the office to get scheduled please schedule patient either February [address] Argentina dawson. Name of caller: [facility] Contact phone number: [phone] Relationship to Patient: Patient Provider: Dr. Nelson Practice: [facility] Chief Complaint/Reason for Call: Pt Pt had to reschedule appointment. Please contact pt if appointment is not soon enough, pt is concerned FYI Best time of day caller can be reached: Any Patient advised that office/PCP has 24-48 business hours to return their call: No documented in this encounter [facility] 02-05-2024 Telephone encounter Note Left message for patient to return call to the office to get scheduled please schedule patient either February [address] Argentina dawson. [facility] 02-05-2024 Miscellaneous Notes Left message for patient to return call to the office to get scheduled please schedule patient either February [address] Argentina dawson. Name of caller: [facility] Contact phone number: [phone] Relationship to Patient: Patient Provider: Dr. Nelson Practice: [facility] Chief Complaint/Reason for Call: Pt Pt had to reschedule appointment. Please contact pt if appointment is not soon enough, pt is concerned FYI Best time of day caller can be reached: Any Patient advised that office/PCP has 24-48 business hours to return their call: No documented in this encounter [facility] 02-05-2024 Telephone encounter Note Name of caller: [facility] Contact phone number: [phone] Relationship to Patient: Patient Provider: Dr. Nelson Practice: [facility] Chief Complaint/Reason for Call: Pt Pt had to reschedule appointment. Please contact pt if appointment is not soon enough, pt is concerned FYI Best time of day caller can be reached: Any Patient advised that office/PCP has 24-48 business hours to return their call: No [facility] 01-02-2024 Telephone encounter Note Pharmacy updated. [facility] 01-02-2024 Miscellaneous Notes Pharmacy updated. Name of caller: [facility] Contact phone number: [phone] Relationship to Patient: patient Provider: Argentina Practice: [facility] Chief Complaint/Reason for Call: Pt called to report that her antibiotic and Prednisone were not sent to [facility] local [facility] as requested - they were accidentally sent to [facility] by mistake. Please send to [facility] [address] [facility] in [place] listed in her chart instead. Please call once has been sent over. Best time of day caller can be reached: Any Patient advised that office/PCP has 24-48 business hours to return their call: No documented in this encounter [facility] 01-02-2024 Telephone encounter Note Name of caller: [facility] Contact phone number: [phone] Relationship to Patient: patient Provider: Argentina Practice: [facility] Chief Complaint/Reason for Call: Pt called to report that her antibiotic and Prednisone were not sent to [facility] local [facility] as requested - they were accidentally sent to [facility] by mistake. Please send to [facility] [address] in [place] listed in her chart instead. Please call once has been sent over. Best time of day caller can be reached: Any Patient advised that office/PCP has 24-48 business hours to return their call: No [facility] 12-22-2023 Telephone encounter Note LM - called to relay message to pt that she can schedule out into February [facility] 12-22-2023 Miscellaneous Notes LM - called to relay message to pt that she can schedule out into February noted Name of caller: Isa[facility] Contact phone number: [phone] (work number) Relationship to Patient: patient Provider: Argentina Practice: [facility] Chief Complaint/Reason for Call: Patient calling back [...] their call: Yes documented in this encounter [facility] 12-22-2023 Telephone encounter Note noted [facility] 12-22-2023 Telephone encounter Note Name of caller: Isauro Contact phone number: [phone] (work number) Relationship to Patient: patient Provider: Argentina Practice: [facility] Chief Complaint/Reason for Call: Patient calling back [...] number above, which is the number for [employer] where she works. Patient advised that office/PCP has 24-48 business hours to return their call: Yes [facility] 12-21-2023 Telephone encounter Note duplicate [facility] 12-21-2023 Miscellaneous Notes duplicate documented in this encounter [facility] 12-21-2023 Telephone encounter Note Medication name: albuterol [...] prior to picking up the medication: Yes [facility] 12-21-2023 Miscellaneous Notes Medication name: albuterol (Proventil [...] the medication: Yes documented in this encounter [facility] 12-18-2023 Telephone encounter Note Recent Visits Date Type Provider Dept 07/31/23 Office Visit Gasper Nelson DO [facility] 01/13/23 Office Visit Gasper Nelson DO [facility] Showing recent visits within past 365 days and meeting all other requirements Future Appointments Date Type Provider Dept 02/05/24 Appointment Gasper Nelson DO [facility] Showing future appointments within next 90 [...] Most recent labs completed in chart? N/A [facility] 12-18-2023 Miscellaneous Notes Recent Visits Date Type Provider Dept 07/31/23 Office Visit Gasper Nelson DO [facility] 01/13/23 Office Visit Gasper Nelson DO [facility] Showing recent visits within past 365 days and meeting all other requirements Future Appointments Date Type Provider Dept 02/05/24 Appointment Gasper Nelson DO [facility] Showing future appointments within next 90 days [...] in chart? N/A documented in this encounter [facility] 08-01-2023 Telephone encounter Note Orders pended for doctor's signature [facility] 08-01-2023 Miscellaneous Notes Orders pended for doctor's signature ----- Message from Gasper Nelson DO sent at 07/31/2023 4:06 PM EST ----- Schedule LDCT for pt to be done in 11/2023 documented in this encounter [facility] 08-01-2023 Telephone encounter Note ----- Message from Gasper Nelson DO sent at 07/31/2023 4:06 PM EST ----- Schedule LDCT for pt to be done in 11/2023 [facility] 07-31-2023 History of Present illness Narrative Images from the original note were not included. [facility] [address] [facility] [facility] [address] Visit type: Established Patient Reason [...] work a fair number hours at the [employer] in [place] doing various jobs. Review of Systems denies [...] pink without edema documented in this encounter [facility] 07-31-2023 History of Present illness Narrative Images from the original note were not included. [facility] [address] [place] [address] [address] [facility] [address] Visit type: Established Patient Reason [...] work a fair number hours at the [employer] in [place] doing various jobs. Review of Systems denies [...] pink without edema documented in this encounter [facility] 07-31-2023 Miscellaneous Notes Addended by: ROSALIND QUINTERO on: 12/18/2023 08:32 AM Modules accepted: Orders documented in this encounter [facility] 07-31-2023 Note Addended by: ROSALIND QUINTERO on: 12/18/2023 08:32 AM Modules accepted: Orders [facility] 03-14-2023 Telephone encounter Note Signed Handicap placard signed and mailed to patient per their request. [facility] 03-14-2023 Miscellaneous Notes Signed Handicap plactram signed and mailed to patient per their request. Rx loaded Name of caller: [facility] Contact phone number: [phone] Relationship to Patient: patient Provider: Argentina Practice: [...] their call: Yes documented in this encounter [facility] [email or web address] 03-14-2023 Telephone encounter Note Rx loaded [facility] 03-14-2023 Telephone encounter Note Name of caller: [facility] Contact phone number: [phone] Relationship to Patient: patient Provider: Argentina Practice: [...] business hours to return their call: Yes [facility] 03-02-2023 Telephone encounter Note Orders closed [facility] [email or web address] 03-02-2023 Miscellaneous Notes Orders closed Talked to [...] order. Thank you documented in this encounter [facility] 03-01-2023 Telephone encounter Note Talked to patient [...] that is stated to get a CT. [facility] 02-28-2023 Telephone encounter Note Placed call to patient to discuss provider questions of: Call the patient and specifically ask her how many cigarettes she smokes on the average per day and how long she has been doing it. Message left on voicemail to return call. [facility] 02-28-2023 Miscellaneous Notes Placed call to patient [...] order. Thank you documented in this encounter [facility] 02-28-2023 Telephone encounter Note Pt doesn't fit criteria for a CT-Lung screen. Pt needs to have a 20 year smoking history of 1-pack a day or 15 year history with 2-pack a day. Can orders be cancelled? [facility] 02-27-2023 Telephone encounter Note Patient called in and scheduled her CT Lung screening. The diagnosis code of F17.200 failed for Medical Necessity. Please correct diagnosis code on order. Thank you [facility] 02-27-2023 Miscellaneous Notes Patient called in and scheduled her CT Lung screening. The diagnosis code of F17.200 failed for Medical Necessity. Please correct diagnosis code on order. Thank you documented in this encounter [facility] 01-13-2023 Telephone encounter Note Orders pended for doctor's signature [facility] 01-13-2023 Miscellaneous Notes Orders pended for doctor's signature documented in this encounter [facility] 01-13-2023 History of Present illness Narrative Images from the original note were not included. [facility] [address] [place] [id number] Visit type: Established Patient Reason for Visit: [...] hips and knees. documented in this encounter [facility] [email or web address] 11-14-2022 History of Present illness Narrative Images from the original note were not included. 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 documented in this encounter [facility] 11-14-2022 Telephone encounter Note Triage message reviewed with clinical staff. Patient appointment confirmed. Siomara will assess at appointment visit. [facility] 11-14-2022 Miscellaneous Notes Triage message reviewed with [...] (e.g., travel history, exposures) no Protocols used: [id number] documented in this encounter [facility] 11-14-2022 Telephone encounter Note S: Patient spoke [...] (e.g., travel history, exposures) no Protocols used: [id number] [facility] 10-20-2022 Telephone encounter Note X-ray faxed to [facility] per patient request. Also called patient and let her know it was faxed. [facility] 10-20-2022 Miscellaneous Notes X-ray faxed to [facility] per patient request. Also called patient and let her know it was faxed. Name of caller: [facility] Contact phone number: [phone] Relationship to Patient: patient Provider: Practice: [facility] Chief Complaint/Reason for Call: Patient calling and states [facility] did not get her orders for the x-ray. Patient requesting it be re sent. Patient did not have a fax number. Best time of day caller can be reached: any Patient advised that office/PCP has 24-48 business hours to return their call: no documented in this encounter [facility] 10-20-2022 Telephone encounter Note Name of caller: [facility] Contact phone number: [phone] Relationship to Patient: patient Provider: Practice: [facility] Chief Complaint/Reason for Call: Patient calling and states [facility] did not get her orders for the x-ray. Patient requesting it be re sent. Patient did not have a fax number. Best time of day caller can be reached: any Patient advised that office/PCP has 24-48 business hours to return their call: no [facility] 10-18-2022 Telephone encounter Note I called this patient regarding her chest x-ray. She states she went to [facility] but they did not have the order. According to the record the order was faxed. Patient will call the hospital and see if now have the order. [facility] 10-18-2022 Miscellaneous Notes I called this patient regarding her chest x-ray. She states she went to [facility] but they did not have the order. According to the record the order was faxed. Patient will call the hospital and see if now have the order. Faxed Name of caller: Shayy Contact phone number: [phone] Relationship to Patient: [facility] Provider: Dr. Davila Practice: [facility] Chief Complaint/Reason for Call: Shayy states the patient is currently at [facility] trying to complete her 10/03/22 XR Chest, [...] their call: No documented in this encounter [facility] 10-17-2022 Telephone encounter Note Faxed [facility] 10-17-2022 Telephone encounter Note Name of caller: Shayy Contact phone number: [phone] Relationship to Patient: [facility] Provider: Dr. Davila Practice: [facility] Chief Complaint/Reason for Call: Shayy states the patient is currently at [facility] trying to complete her 10/03/22 XR Chest, [...] business hours to return their call: No [facility] 10-04-2022 Telephone encounter Note I was called [...] the emergency room. She is not interested. [facility] 10-04-2022 Miscellaneous Notes I was called the [...] is not interested. documented in this encounter [facility] 10-03-2022 History of Present illness Narrative Images from the original note were not included. [facility] [address] [facility] [facility] [address] Chief Complaint: Ashley Gómez is an [...] Work Phone: Evaluation noteNo assessment information available [facility] Work Phone: Evaluation note* Diagnosis Chronic obstructive pulmonary disease, unspecified COPD type (HCC)- Primary Hypercholesterolemia Pure hypercholesterolemia Gastroesophageal reflux disease without esophagitis Esophageal reflux Smoker Tobacco use disorder Depression, unspecified depression type [facility] Smoker Tobacco use disorder [facility] Diagnosis Chronic obstructive pulmonary disease, unspecified COPD type (HCC)- Primary [facility]* Diagnosis Chronic obstructive pulmonary disease, unspecified COPD type (HCC)- Primary Depression, unspecified depression type Gastroesophageal reflux disease without esophagitis Esophageal reflux Hypercholesterolemia Pure hypercholesterolemia documented [facility]* Diagnosis Moderate smoker (20 or less per day)- Primary Tobacco use disorder Smoker Tobacco use disorder documented [facility]* Diagnosis Chronic obstructive pulmonary disease, unspecified COPD type (HCC)- Primary Depression, unspecified depression type Gastroesophageal reflux disease without esophagitis Esophageal reflux Hypercholesterolemia Pure hypercholesterolemia documented in [facility] encounter [facility]* Diagnosis Smoker Tobacco use disorder Moderate smoker (20 or less per day) Tobacco use disorder documented [facility]* Diagnosis COPD with acute exacerbation (HCC) Lower resp. tract infection Other diseases of respiratory system, not elsewhere classified documented [facility] this [facility]* Diagnosis Chronic obstructive pulmonary disease, unspecified COPD type (HCC)- Primary Abnormal CT scan of lung Hypercholesterolemia Pure hypercholesterolemia Colon cancer screening Special screening for malignant neoplasms, colon Breast cancer screening by mammogram Depression, unspecified depression type Gastroesophageal reflux disease without esophagitis Esophageal reflux Ex-smoker for less than 1 year documented in this encounter [facility]* Diagnosis Abnormal CT scan of lung- Primary Colon cancer screening Special screening for malignant neoplasms, colon Smoker Tobacco use disorder Family history of colon cancer Family history of malignant neoplasm of gastrointestinal tract documented in this encounter [facility]* Diagnosis Abnormal CT scan of lung Smoker Tobacco use disorder documented [facility]* Diagnosis Medicare annual wellness visit, subsequent- Primary Cough, unspecified type Chronic obstructive pulmonary disease, unspecified COPD type (HCC) Anxiety Anxiety state, unspecified Depression, unspecified depression type Hypercholesterolemia Pure hypercholesterolemia Mammogram declined Colonoscopy refused documented [facility]* Diagnosis COPD with acute exacerbation (CMS/HCC) (HCC)- Primary Lower resp. tract infection Other diseases of respiratory system, not elsewhere classified Smoking Tobacco use disorder documented [facility] encounter [facility]* Diagnosis Chronic obstructive pulmonary disease with acute exacerbation (HCC)- Primary Influenza Influenza with other respiratory manifestations documented [facility]* Diagnosis Routine general medical examination at health care facility- Primary Routine general medical examination at a health care facility Encounter for screening mammogram for malignant neoplasm of breast Hypercholesterolemia Pure hypercholesterolemia Chronic obstructive pulmonary disease with acute exacerbation (HCC) Gastroesophageal reflux disease without esophagitis Esophageal reflux documented [facility]* Diagnosis Routine general medical examination at health care facility- Primary Routine general medical examination at a health care facility Encounter for screening mammogram for malignant neoplasm of breast Hypercholesterolemia Pure hypercholesterolemia Chronic obstructive pulmonary disease with acute exacerbation (HCC) Gastroesophageal reflux disease without esophagitis Esophageal reflux Other insomnia [facility]* Diagnosis Routine general medical examination at health care facility- Primary Routine general medical examination at a health care facility Encounter for screening mammogram for malignant neoplasm of breast Hypercholesterolemia Pure hypercholesterolemia Chronic obstructive pulmonary disease with acute exacerbation (HCC) Gastroesophageal reflux disease without esophagitis Esophageal reflux Chronic obstructive pulmonary disease with acute exacerbation (HCC) [facility]* Diagnosis Routine general medical examination at health care facility- Primary Routine general medical examination at a health care facility Encounter for screening mammogram for malignant neoplasm of breast Hypercholesterolemia Pure hypercholesterolemia Chronic obstructive pulmonary disease with acute exacerbation (HCC) Gastroesophageal reflux disease without esophagitis Esophageal reflux Other insomnia documented in this encounter [facility]* Diagnosis Routine general medical examination at health care facility- Primary Routine general medical examination at a health care facility Encounter for screening mammogram for malignant neoplasm of breast Hypercholesterolemia Pure hypercholesterolemia Chronic obstructive pulmonary disease with acute exacerbation (HCC) Gastroesophageal reflux disease without esophagitis Esophageal reflux Other insomnia documented in this encounter [facility]* Diagnosis Routine general medical examination at health care facility- Primary Routine general medical examination at a health care facility Encounter for screening mammogram for malignant neoplasm of breast Hypercholesterolemia Pure hypercholesterolemia Chronic obstructive pulmonary disease with acute exacerbation (HCC) Gastroesophageal reflux disease without esophagitis Esophageal reflux Chronic obstructive pulmonary disease with acute exacerbation (HCC) documented in this encounter [facility]* Diagnosis Routine general medical examination at health care facility- Primary Routine general medical examination at a health care facility Encounter for screening mammogram for malignant neoplasm of breast Hypercholesterolemia Pure hypercholesterolemia Chronic obstructive pulmonary disease with acute exacerbation (HCC) Gastroesophageal reflux disease without esophagitis Esophageal reflux Other insomnia [facility] N[facility]ative* Imaging (Routine) - Closed Specialty Diagnoses / Procedures Referred By Contac t Referred To Contact Radiology Diagnoses Abnormal CT scan of lung Smoker Procedures CT lung screening follow up low dose ArgentinaGasper, DO [address] [place] [address] Phone: tel: fax: Referral ID Status Reason Start Date Expiration Date Visits Re quested Visits Authorized [id number] Closed 02/22/2024 02/21/2025 1 1 [facility] [...] FoundDocuments on File Type Date Recorded 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 ACP-Advance Directive ACP-Power of Violin Restorer Advance Directive Response Recorded Date/ Time Advance Directives No May 10:10pm Living Will No May 22, 2014 10:10pm Power of Violin Restorer No May 10:10pm Advance Directive Response Recorded Date/ Time Advance Directives No May 9:10pm Living Will No May 22, 2014 9:10pm Power of Violin Restorer No May 9:10pm Reason for Referral Specialty Diagnoses / Procedures Referred By Contac t Referred To Contact Radiology Diagnoses Menopause Procedures DEXA Bone Density Axial Skeleton Danish Davila, DO [address] [place] [address] Referral ID Status Reason Start Date Expiration Date Visits Re quested Visits Authorized [id number] Open 06/07/2021 06/07/2022 1 1 Specialty Diagnoses / Procedures Referred By Contac t Referred To Contact Radiology Diagnoses Smoker Procedures CT lung screening low dose Argentina Gasper Serrano, DO [address] [place] [address] Referral ID Status Reason Start Date Expiration Date V isits Requested Visits Authorized [id number] Pending Review 01/13/2023 07/12/2023 1 1 Specialty Diagnoses / Procedures Referred By Contac t Referred To Contact Radiology Diagnoses Smoker Moderate smoker (20 or less per day) Procedures CT lung screening low dose Gasper Nelson, DO [address] [place] [address] Referral ID Status Reason Start Date Expiration Date V isits Requested Visits Authorized [id number] Pending Review 08/01/2023 07/31/2024 1 1 Referral ID Status Reason Start Date Expiration Date Visits Re quested Visits Authorized [id number] Closed 08/01/2023 07/31/2024 1 1 Specialty Diagnoses / Procedures Referred By Contac t Referred To Contact Diagnoses Chronic obstructive pulmonary disease, unspecified COPD type (HCC) Procedures Complete PFT pre and post bronchodilator Gasper Nelson, [address] [place] [address] Referral ID Status Reason Start Date Expiration Date V isits Requested Visits Authorized [id number] Pending Review 02/22/2024 02/16/2025 1 1 Specialty Diagnoses / Procedures Referred By Contac t Referred To Contact Radiology Diagnoses Abnormal CT scan of lung Smoker Procedures CT lung screening follow up low dose Gasper Nelson, DO [address] [place] [address] Referral ID Status Reason Start Date Expiration Date V isits Requested Visits Authorized [id number] Pending Review 02/22/2024 02/21/2025 1 1 Specialty Diagnoses / Procedures Referred By Contac t Referred To Contact Gastroenterology Diagnoses Colon cancer screening Procedures IN OFFICE/OUTPATIENT NEW HIGH MDM 60 MINUTES Gasper Nelson, DO [address] [place] [address] Slim [address] [place] [address] Referral ID Status Reason Start Date Expiration Date Visits Requested Visits Authorized [id number] Pending Review Specialty Services Required 02/22/2024 02/21/2025 1 1 Chief Complaint and Reason for Visit Chief Complaint VOMITING Additional Source Comments INFORMATION SOURCE (unrecogn ized section and content) DATE CREATED AUTHOR 10/12/2021 [facility] DATE CREATED AUTHOR AUTHOR'S ORGANIZ ATION 01/19/2022 [facility] DATE CREATED AUTHOR AUTHOR'S ORGANIZ ATION 05/12/2024 [facility] DATE CREATED AUTHOR AUTHOR'S ORGANIZ ATION 02/12/2025 [facility] Care Teams (unrecognized sec tion and content) Food And Beverage Operations Manager Relationship Specialty Start Date End Date Danish Davila DO [address] [place], [place] [id number] PCP - General Family Medicine 03/24/20 Team Status: Active Member Role Status Dates Dr. Aaron Zepeda MD Family Provider Active Dr. Danish Davila DO Primary Care Provider Active Team Status: Inactive Member Role Status Dates Dr. Danish Davila DO Primary Care Provider, [facility] Provider Active Food And Beverage Operations Manager Relationship Specialty Start Date End Date Danish Davila DO [address] [place], [place] [phone] PCP - General 03/24/20 Food And Beverage Operations Manager Relationship Specialty Start Date End Date Gasper Nelson DO [address] [place], [place] [id number] PCP - General Family Medicine 01/13/23 [employer] And Beverage Operations Manager Relationship Specialty Start Date End Date Gasper Nelson, DO [address] [place] [address] PCP - General Family Medicine 01/13/23 Food And Beverage Operations Manager Relationship Specialty Start Date End Date Gasper Nelson DO [address] [place], [place] [id number] PCP - General Family Medicine 01/13/23 Food And Beverage Operations Manager Relationship Specialty Start Date End Date Gasper Nelson, DO [address] [place] [address] PCP - General Family Medicine 01/13/23 Food And Beverage Operations Manager Relationship Specialty Start Date End Date Gasper Nelson DO [address] [place], [place] [id number] PCP - General Family Medicine 01/13/23 Food And Beverage Operations Manager Relationship Specialty Start Date End Date Gasper Nelson, DO [address] [place], [place] [id number] PCP - General Family Medicine 01/13/23 Food And Beverage Operations Manager Relationship Specialty Start Date End Date Gasper Nelson, DO [address] [place] [address] PCP - General Family Medicine 01/13/23 Food And Beverage Operations Manager Relationship Specialty Start Date End Date Gasper Nelson, DO [address] [place] [phone] PCP - General Family Medicine 01/13/23 Food And Beverage Operations Manager Relationship Specialty Start Date End Date Gasper Nelson, DO [address] [place] [phone] PCP - General Family Medicine 01/13/23 Food And Beverage Operations Manager Relationship Specialty Start Date End Date Gasper Nelson, DO [address] [place] [phone] PCP - General Family Medicine 01/13/23 Food And Beverage Operations Manager Relationship Specialty Start Date End Date Gasper Nelson, DO [address] [place] [phone] PCP - General Family Medicine 01/13/23 Food And Beverage Operations Manager Relationship Specialty Start Date End Date PuneetGasper vargas, DO [address] [place] [address] PCP - General Family Medicine 01/13/23 Food And Beverage Operations Manager Relationship Specialty Start Date End Date ArgentinaGasper, DO [address] [place] [address] PCP - General Family Medicine 01/13/23 Food And Beverage Operations Manager Relationship Specialty Start Date End Date PuneetdorinakiGasper, DO [address] [place] [phone] PCP - General Family Medicine 01/13/23 Food And Beverage Operations Manager Relationship Specialty Start Date End Date ArgentinaGasper, DO [address] [place] [address] PCP - General Family Medicine 01/13/23 Food And Beverage Operations Manager Relationship Specialty Start Date End Date ArgentinaGasper, DO [address] [place] [address] PCP - General Family Medicine 01/13/23 Food And Beverage Operations Manager Relationship Specialty Start Date End Date ArgentinaGasper, DO [address] [place] [phone] PCP - General Family Medicine 01/13/23 Food And Beverage Operations Manager Relationship Specialty Start Date End Date ArgentinaGasper, DO [address] [place] [address] PCP - General Family Medicine 01/13/23 Food And Beverage Operations Manager Relationship Specialty Start Date End Date Argentina Gasper Serrano, DO [address] [place] [phone] PCP - General Family Medicine 01/13/23 Food And Beverage Operations Manager Relationship Specialty Start Date End Date Argentina Gasper Serrano, DO [address] [place] [phone] PCP - General Family Medicine 01/13/23 Food And Beverage Operations Manager Relationship Specialty Start Date End Date Gasper Nelson Maggie, DO [address] [place] [phone] PCP - General Family Medicine 01/13/23 Food And Beverage Operations Manager Relationship Specialty Start Date End Date Danish Davila DO [address] [place] [address] PCP - General 03/24/20 Food And Beverage Operations Manager Relationship Specialty Start Date End Date Danish Davila DO [address] [place] [address] PCP - General 03/24/20 Food And Beverage Operations Manager Relationship Specialty Start Date End Date Danish Davila DO [address] [place] [address] PCP - General 03/24/20 Food And Beverage Operations Manager Relationship Specialty Start Date End Date Danish Davila, DO [address] [place] [address] PCP - General 03/24/20 Food And Beverage Operations Manager Relationship Specialty Start Date End Date Gasper Nelson Maggie, DO [address] [place] [phone] PCP - General Family Medicine 01/13/23 Food And Beverage Operations Manager Relationship Specialty Start Date End Date PuneetdorinakiGasper, DO [address] [place] [phone] PCP - General Family Medicine 01/13/23 Food And Beverage Operations Manager Relationship Specialty Start Date End Date ArgentinaGasper, DO [address] [place] [phone] PCP - General Family Medicine 01/13/23 Food And Beverage Operations Manager Relationship Specialty Start Date End Date PuneetdorinakiGasper, DO [address] [place] [address] PCP - General Family Medicine 01/13/23 Food And Beverage Operations Manager Relationship Specialty Start Date End Date Argentina Gasper Serrano, DO [address] [place] [phone] PCP - General Family Medicine 01/13/23 Food And Beverage Operations Manager Relationship Specialty Start Date End Date ArgentinaGasper, DO [address] [place] [phone] PCP - General Family Medicine 01/13/23 Goals [...] Maggie, DO [address] [place] [address] Referral ID Status Reason Start Date Expiration Date Visits Re quested Visits Authorized [id number] Closed 08/01/2023 07/31/2024 1 1 Reason Onset Date Comments Error (VOID this visit) 12/21/2023 Reason Onset Date Comments Appointment 12/22/2023 [facility] Reason Onset Date Comments Med Refill 12/21/2023 [...] BE BASED ON THE PRIMARY CLINICAL RECORDS. [facility] provides no warranty or guarantee of the accuracy or completeness of information in this document.
--- OUTSIDE RECORDS SUMMARY | 2025-02-15 11:32 | XMS RPT_ITS | CCD ---
Author Organization [facility] Inform ion Partnership SULFUR BURNER [facility] Care Team Providers Care Used Car Lot Attendant Name Role Phone Danish Davila DO Primary [...] (1 source) Sulfonamides (Antibiotic) Drug Allergy 3 [facility] (20 sources) Sulfonamides (Antibiotic) Propensity to adverse reactions to drug 3 [facility] (5 sources) Sulfonamides (Antibiotic); Translations: [Sulfa (Sulfonamide Antibiotics)] Allergy to substance 5 [facility] Medications Current Medications Medication Drug Class(es) Dates Sig (Normalized) Sig (Original) [id number] 200 actuat albuterol 0.09 mg/actuat metered dose [...] 20 mg/ml oral suspension (14 sources) Uncompetitive R-fosztg-Y-aspartat e Receptor Antagonist, Sigma-1 Agonist Start: 10-31-2024 [...] Active Start: 05-14-2014 take 1 capsule by [facility] once daily Venlafaxine Xr (Effexor Xr) [...] 02-11-2025 36 Patient advised and voiced understanding. [facility] 02-10-2025 29 Addended by: JUJU PATTON on: 02/10/2025 03:52 PM Modules accepted: Orders [facility] 02-10-2025 36 Called patient to relay provider message left voicemail to call office back. Mychart message sent to patient. Please relay message to patient. [facility] 36 Message released to patient [...] a new script sent in. Please advise [place] [address] Left message to return call Gasper Nelson DO 02/10/25 12:43 PM Antibiotic, and prednisone prescribed to her local pharmacy. I would take the prednisone 5 days due to her emphysema [facility] 36 Recent Visits Date Type Provider Dept 11/12/24 Office Visit Siomara Estrada PA-C [facility] 02/22/24 Office Visit Gasper Nelson DO [facility] Showing recent visits within past 365 [...] Most recent labs completed in chart? N/A [place] [address] Recent Visits Date Type Provider Dept 11/12/24 Office Visit Siomara Estrada PA-C [facility] 02/22/24 Office Visit Gasper Nelson DO [facility] Showing recent visits within past 365 [...] recent labs completed in chart? N/A Normal [facility] 36 S: Patient spoke wit h [facility] nurse regarding chest congestion and increased [...] refill on her albuterol inhaler. (Sent via [employer] request). Allergies and pharmacy verified. R: Offered [...] or worse than normal Protocols used: Breathing Rveehbkmmm-GUOMF-KB Normal [facility] 36on 12-13-2024 36 Recent Visits Date Type Provider Dept 11/12/24 Office Visit Siomara Estrada PA-C [facility] 02/22/24 Office Visit Gasper Nelson DO [facility] Showing recent visits within past 365 [...] CHOLHDLCRATI 4.2 01/13/2023 NONHDLCHOLES 174 (H) 01/13/2023 [facility] 37on 11-12-2024 37 Personalized Preventative [...] Recommendations: A preventive eye exam by an carpet installation specialist is recommended every 1-2 years to screen for glaucoma, cataracts, macular degeneration, and other eye disorders. A preventive dental visit is recommended every 6 months. Try to get at least 150 minutes of exercise per week or 10,000 steps per day on a pedometer. You need 1200-1500mg of calcium and 7918-9147 international units of vitamin D per day. [...] when riding a bicycle or a motorcycle [facility] Office Visiton 11-12-2024 Follow-up visit [id number] Ashley Gómez 1955 F Date Provider Department Center 11/12/2024 SIOMARA DIAZ [facility] Family History Problem Relation Age of Onset [...] Brother Alive Brother Alive Level of Service:G0439 [place] PPPS, SUBSEQ VISIT Reason for Visit and Comments: Medicare Annual Wellness Visit Subsequent [677] Normal [facility] Progress Noteon 11-12-2024 Progress Note - Chronic stable was taking simvastatin 80 mg daily but felt that that was too much and she was concerned about problems with her liver so she has been cutting in half and taking 40 mg daily. Will recheck her levels today but I believe this is reasonable enough as her levels have been adequately controlled Normal [facility] Progress Note - Chronic stable she will continue on esomeprazole 40 mg daily. Normal [facility] Progress Note - Chronic stable patient was recently treated for flareup with amoxicillin and prednisone she can take the prednisone she is requesting a lower dose Medrol Dosepak and a second round of antibiotics that she started in some generalized wheezing and congestion strongly encouraged smoking cessation. Normal [facility] Progress Note [facility] - [address] [facility] [address] Dept: [phone] Dept Chief Complaint: Ashley Gómez is an [...] pain. Ga (more content not included)... Normal [facility] 36on 10-31-2024 36 S: Patient spoke [...] not coughing Protocols used: Cough - Acute Ats-Qlhzhrpier-KRECC- AH Normal [facility] Progress Noteon 10-31-2024 Progress Note [facility] - [address] [facility] [address] Dept: [phone] Dept Loc: [phone] Patient was identified and seen today via [...] are currently in the state [facility]. If the patient is a minor, permission [...] for orders. Gasper Nelson, 10/31/2024 12:20 PM [facility] 36on 10-01-2024 36 Received signed receipt of certified letter sent to patient. Scanned to media in chart. [facility] 36on 09-30-2024 36 Recent Visits Date Type Provider Dept 02/22/24 Office Visit Gasper Nelson DO [facility] Showing recent visits within past 365 days and meeting all other requirements Future Appointments Date Type Provider Dept 11/12/24 Appointment Gasper Nelson DO [facility] Showing future appointments within next 90 [...] recent labs completed in chart? N/A None [place] [address]on 09-16-2024 36 Recent Visits Date Type Provider Dept 02/22/24 Office Visit Gasper Nelson DO [facility] Showing recent visits within past 365 days and meeting all other requirements Future Appointments Date Type Provider Dept 09/30/24 Appointment Gasper Nelson DO [facility] Showing future appointments within next 90 [...] CHOLHDLCRATI 4.2 01/13/2023 NONHDLCHOLES 174 (H) 01/13/2023 [facility] 36on 08-05-2024 36 Transferred to resul t notes Normal [facility] 36 Message released to patient as written. Patient's further questions if applicable: NA Were all questions from office addressed or relayed to the patient from encounter: Yes [facility] 36 Placed call to patient. Unable to reach them by phone to discuss lab results. Left detailed message to return call to discuss results. Please release information to patient [facility] 36 ----- Message from Juju Rodriguez sent at 08/05/2024 7:36 AM EST ----- ----- Message ----- From: Gasper Nelson DO Sent: 08/04/2024 5:20 PM EST To: [facility] Clinical Vp [employer] Stable small pulmonary nodules and they now recommend recheck study in 1 year. As noted before she has moderate amount of emphysema. Normal [facility] CT LUNG SCREENING FOLLOW UP LOW DOSEon 07-31-2024 CT LUNG SCREENING FOLLOW UP LOW DOSE This is a summary report. The complete report is available in the patient's medical record. If you cannot access the medical record, please contact the sending organization for a detailed fax or copy. Patient Name: ASHLEY [facility]MEZ [facility] 1955 [id number] Exam Date/Time: 07/29/2024 11:38 Procedure: CT LUNG [...] 2:02 PM EST F/U SCAN SMOKER Normal [facility] 36on 07-24-2024 36 Recent Visits Date Type Provider Dept 02/22/24 Office Visit Gasper Nelson DO [facility] 07/31/23 Office Visit Gasper Nelson DO [facility] Showing recent visits within past 365 days and meeting all other requirements Future Appointments Date Type Provider Dept 08/21/24 Appointment Gasper Nelson DO [facility] e[facility]rgio Showing future appointments within next 90 days [...] CHOLHDLCRATI 4.2 01/13/2023 NONHDLCHOLES 174 (H) 01/13/2023 [place] [address]on 06-28-2024 Reason for call: Pari, I am [...] to get her scheduled. Thank you Contact [place] [address] No auth needed. Faxe d orders to [facility]-Scheduling for pt to be sched - [facility] will sched/advise pt. My chart mess sent to patient with info to sched. [place] [address]on 06-27-2024 36 Vincent Perez, It looks like the patient navigator has done all that she can do. So it looks like all avenues have been exhausted to try and reach this patient to schedule. [facility] 36 To April to follow up [place] [address] Mrs. Gómez called i n after receiving certified letter. She would like to return to complete the recommended lung screening 3 month follow-up imaging previously ordered by Dr. Nelson. Will send message to provider office to place new referral for imaging and assist patient with scheduling. She prefers [place] for imaging location and is available on Monday the if there are any appointments available. [place] [address]on 06-11-2024 36 RX loaded Next ov 08/21/24 [place] [address] Medication name: traZODone (Desyrel) 150 MG tablet [...] to picking up the medication: Yes Normal [facility] Colonoscopy Reporton 024 Colonoscopy Report [facility] Medical Records Department [address] [place] [address] Colonoscopy Report MR#: [id number] Acct: [id number] Name: ASHLEY GÓMEZ Rep #: [id number] : 1955 68 From: Slim Weiss DO PCP: Dr. Danish Davila DO Status:[facility] Patient Name: Ashley Gómez Procedure Date: 04/29/2024 [...] criteria for high risk CPT copyright 2021 [employer]. All rights reserved. The codes documented in this report are preliminary and upon chisel grinder review may be revised to meet current compliance requirements. Slim Weiss DO 04/29/2024 9:34:45 AM This report has been signed electronically. Number of Addenda: 0 Note Initiated On: 04/29/2024 8:54 AM 04/29/24 0934 Date Slim Goss Signature: Date (if indicated) CC: Dr. Danish Davila DO; Slim Weiss DO Date Dictated: 04/29/24853 Date Transcribed: Cocoa Roaster: WES Signed [facility] MR/POSTOP.ANEon 04-29-2024 MR/POSTOP.[facility] Medical Records Department [address] [place] [address] Anesthesia Postop Eval I 04/29/241402 MR#: [id number] Acct: [id number] Name: ASHLEY GÓMEZ Rep #: [id number] : 1955 68 From: Supriya Valdovinos CRNA PCP: Dr. Danish Davila DO Status:[facility] Y Race: C Location: Anesthesia: Postop Eval [...] 1 completed: Yes 04/29/241403 Date Supriya Valdovinos FAILURE ANALYSIS ENGINEER Cosigner Signature: Date CC: Signed [facility] MR/[id number] 04-29-2024 MR/POSTOPAN2 [facility] Medical Records Department [address] [place] [address] Anesthesia Postop Eval II 04/29/24 1341 MR#: [id number] Acct: [id number] Name: ASHLEY GÓMEZ Rep #: [id number] : 1955 68 From: David Valadez MD PCP: Dr. Danish Davila, DO Status:[facility] Y Race: C Location: EN Anesthesia Postop [...] MD Cosigner Signature: Date CC: Signed Normal [facility] 36on 04-17-2024 36 Recent Visits Date Type Provider Dept 02/22/24 Office Visit Gasper Nelson DO [facility] 07/31/23 Office Visit Gasper Nelson DO [facility] Showing recent visits within past 365 [...] from any other provider? No None Normal [facility] 36on 04-12-2024 36 Orders cancelled Normal [facility] 36on 04-11-2024 36 We have been unable to reach your patient to schedule their testing. Test Name: CT lung screening follow up, PFT and Mammo 1st Attempt: 03/30/24 2nd Attempt: 04/11/24 Jae, [facility] Scheduling Normal [facility] Office Visiton 02-22-2024 Follow-up visit [id number] Ashley Gómez 1955 F Date Provider Department Center 02/22/2024 [id number]-XOUOOWLHGASPER RASHID [facility] Family History Problem Relation Age of Onset [...] Alive Brother Alive Brother Alive Level of Service:89066 [place] OFFICE/OUTPATIENT ESTABLISHED MOD MDM 30 MIN Reason for Visit and Comments: Follow-up [103205] - Ct scan Normal [facility] Progress Noteon 02-22-2024 Progress Note [facility] [address] [place] [address] [facility] [address] Visit type: Established Patient Reason for [...] (HISTORICAL) 1 (more content not included)... Normal [facility] Lipid 1996 panelon 4 Cholesterol [Mass/Vol] 162 mg/dL NINF - 200 mg/dL [facility] Cholesterol in HDL [Mass/Vol] 38 mg/dL Low 40 - 60 mg/dL [facility] Cholesterol in LDL [Mass/Vol] 106 mg/dL High 0 - <100 [facility] Cholesterol.total/Cho lesterol in HDL [Mass ratio] 4 {ratio} [facility] Comment on above: Ref Range: < 3 Low Risk for CHD 3-6 Mod Risk for CHD > 6 High Risk for CHD Interpretation and review of laboratory results Abnormal [facility] Triglyceride [Mass/Vol] 91 mg/dL NINF - 150 mg/dL [facility] Absolute lymphocyte counton 01-31-2022 Lymphocytes Auto (Unsp spec) [#/Vol] 1.28 10*3/uL 0.83-4.51 [facility] Work Phone: Basophil percentageon 2021 Basophils/100 WBC (Bld) 0.3 % 0-1 [facility] Work Phone: Chloride [Moles/Vol] 100 mmol/L 98-107 [facility] Work Phone: Eosinophils/100 WBC (Bld) 0.0 % 0-5 [facility] Work Phone: Glucose [Mass/Vol] 153 mg/dL 74-106 [facility] Work Phone: Comment on above: Fasting Glucose resu lt greater than or equal to 126 mg/dL suggests DIABETES MELLITUS per A.D.A. criteria. Neutrophils (Bld) [#/Vol] 17.2 10*3/uL 2.0-7.7 [facility] Work Phone: Neutrophils/100 WBC (Bld) 88.5 % 47-70 [facility] Work Phone: Potassium [Moles/Vol] 3.2 mmol/L 3.5-5.1 [facility] Work Phone: Comment on above: Slight Hemolysis, Re sult may be falsely increased. Sodium [Moles/Vol] 135 mmol/L 136-145 [facility] Work Phone: WBC (Bld) [#/Vol] 19.4 10*3/uL 4.4-11.0 [facility] Work Phone: Blood erythrocytes count (nu mber/volume)on 01-31-2022 RBC (Bld) [#/Vol] 4.26 10*6/uL 4.2-5.4 [facility] Work Phone: Blood hemoglobin measurement (mass/volume)on 01-31-2022 Hemoglobin (Bld) [Mass/Vol] 12.5 g/dL 12.0-15.0 [facility] Work Phone: Blood lymphocytes/100 leukoc yteson 01-31-2022 Lymphocytes/100 WBC (Bld) 6.6 % 19-41 [facility] Work Phone: Blood monocytes/100 leukocyt eson 01-31-2022 Monocytes/100 WBC (Bld) 3.5 % 0-10 [facility] Work Phone: Blood platelet mean volumeon 01-31-2022 Platelet mean volume (Bld) [Entitic vol] 10.4 fL 6.2-12.0 [facility] Work Phone: Determination of erythrocyte mean corpuscular volume (MCV)on 01-31-2022 MCV (RBC) [Entitic vol] 88.0 fL 81-99 [facility] Work Phone: Hematocrit Auto (Bld) [Volum e fraction]on 01-31-2022 Hematocrit (Bld) [Volume fraction] 37.5 % 37-47 [facility] Work Phone: Laboratory - Chemistry and C hemistry - challengeon 01-31-2022 CO2 [Moles/Vol] 27.0 mmol/L 21.0-32.0 [facility] Work Phone: Urea nitrogen/Creatinine [Mass ratio] 22.0 mg/mg 10-20 [facility] Work Phone: Laboratory - Hematology and Cell countson 01-31-2022 Erythrocyte distribution width (RBC) [Entitic vol] 45.4 fL 35.1-43.9 [facility] Work Phone: Erythrocyte distribution width (RBC) [Ratio] 14.1 % 11.6-14.6 [facility] Work Phone: Immature granulocytes/100 WBC (Bld) 1.100 % 0.0-0.9 [facility] Work Phone: Comment on above: IG% - Immature Granu locytes (promyelocytes, myelocytes and metamyelocytes) > 1% indicates that a LEFT SHIFT is Present. MCH (RBC) [Entitic mass] 29.3 pg 27.0-32.0 [facility] Work Phone: Nucleated RBC/100 WBC (Bld) [Ratio] 0 % 0-5 [facility] Work Phone: MCHC Auto (RBC) [Mass/Vol]on 01-31-2022 MCHC (RBC) [Mass/Vol] 33.3 g/dL 32-36 [facility] Work Phone: No Panel Informationon 01-31 Estimated Creatinine Clearance Calc 49.62 ml/min [facility] Work Phone: Estimated GFR (MDRD) Amer 79 mL/min >60 [facility] Work Phone: Comment on above: GFR Calc Estimated GFR (MDRD) Non-Af Amer 65 mL/min >60 [facility] Work Phone: Comment on above: Non- GFR Calc SARS-CoV-2 & FLU Antigen (Rapid) [facility] Work Phone: Platelets bldon 01-31-2022 Platelets (Bld) [#/Vol] 188 10*3/uL 150-450 [facility] Work Phone: Serum or plasma calcium janneth urement (mass/volume)on 01-31-2022 Calcium [Mass/Vol] 9.4 mg/dL 8.5-10.1 [facility] Work Phone: Serum or plasma creatinine m easurement (mass/volume)on 01-31-2022 Creatinine [Mass/Vol] 0.91 mg/dL 0.55-1.02 [facility] Work Phone: Comment on above: The validity of the calculated GFR & GFRAA in patients over 70 years has not been determined. Clinical correlation is essential. Serum or plasma urea nitroge n measurement (mass/volume)on 01-31-2022 Urea nitrogen [Mass/Vol] 20 mg/dL 7-18 [facility] Work Phone: Thin prep Papanicolaou smear with manual screeningon 01-31-2022 Thin prep Papanicolaou smear with manual screening 8 5-15 [facility] Work Phone: DEXA Bone Density Axial Skel etonoroseanna 01-11-2022 Patient Name: ASHLEY GÓMEZ Bone Density ACCESSION EXAM DATE/TIME PROCEDURE ORDERING PROVIDER [id number] 01/11/2022 15:04 EDT OT Bone Density DEXA DO DAVILA PAUL E. Axial Skeleton CPT code 14135 Reason For Exam (OT Bone Density DEXA Axial Skeleton) . Report DXA BONE DENSITOMETRY: CLINICAL INDICATION: Asymptomatic post-menopausal status COMPARISON: None TECHNIQUE: Quantitative bone mineral densitometry of the hip and lumbar spine was performed with a dual energy x-ray observed absorptiometry device - Holo[employer]ut[employer] Horizon W. Regions of interest were obtained [...] recommendations for prevention of bone loss include: 4898-5223 mg calcium intake per day for adults [...] and Follow-up. [employer]ara [employer] Knowledge Evidence-Based Summaries. [facility] [employer] for Education and Research. 2017 Bone Density Report Report Dictated on --- Final --- Dictating Physician: MD SANTIAGO LAUREN B Signed Date and Time: 01/11/2022 4:03 pm Signed by: MD SANTIAGO LAUREN B Transcribed Date and Time: 01/11/2022 4:05 REBEKAH VERMA RAD Bari Santiago MD - 01/11/2022 Patient Name: ASHLEY GÓMEZ Bone Density ACCESSION EXAM DATE/TIME PROCEDURE ORDERING PROVIDER [id number] 01/11/2022 15:04 EDT OT Bone Density DEXA DO DAVILA PAUL E. Axial Skeleton CPT code 73499 Reason For Exam (OT Bone Density DEXA Axial Skeleton) . Report DXA BONE DENSITOMETRY: CLINICAL INDICATION: Asymptomatic post-menopausal status COMPARISON: None TECHNIQUE: Quantitative bone mineral densitometry of the hip and lumbar spine was performed with a dual energy x-ray observed absorptiometry device - HoloSensiGen W. Regions of interest were obtained through [...] recommendations for prevention of bone loss include: 1979-4546 mg calcium intake per day for adults [...] and Follow-up. [employer] Evidence-Based Summaries. [facility] [employer] for Education and Research. 2017 Bone Density [...] Mammography ACCESSION EXAM DATE/TIME PROCEDURE ORDERING PROVIDER [id number] 01/11/2022 15:01 EDT MG Breast Tomosynthesis DO DAVILA PAUL E. BI Scr CPT code 12331 34843 Reason For Exam (MG Breast Tomosynthesis BI [...] 20, 2013, bilateral screening mammogram performed at [facility]. TISSUE DENSITY: BIRADS B - [...] images: BB's = Nipples; skin lesions Open alutiiq = Palpable Line = Scar 2D digital [...] am Signed by: MD PAMELA, BARI [facility] OT Bone Density DEXA Axial S stephanie 01-11-2022 OT Bone Density DEXA Axial Skeleton Patient Name: ASHLEY GÓMEZ Bone Density ACCESSION EXAM DATE/TIME PROCEDURE ORDERING PROVIDER [id number] 01/11/2022 15:04 EDT OT Bone Density DEXA DO DAVILA PAUL E. Axial Skeleton CPT code 83450 Reason For Exam (OT Bone Density DEXA Axial Skeleton) . Report DXA BONE DENSITOMETRY: CLINICAL INDICATION: Asymptomatic post-menopausal status COMPARISON: None TECHNIQUE: Quantitative bone mineral densitometry of the hip and lumbar spine was performed with a dual energy x-ray observed absorptiometry device - Holo[employer]utenda Horizon W. Regions of interest were obtained [...] recommendations for prevention of bone loss include: 1021-6370 mg calcium intake per day for adults [...] and Follow-up. [employer] Evidence-Based Summaries. [facility] [employer] for Education and Research. 2017 Bone Density Report Report Dictated on Final Dictating Physician: MD SANTIAGO LAUREN B Signed Date and Time: 01/11/2022 4:03 pm Signed by: MD SANTIAGO LAUREN B Transcribed Date and Time: 01/11/2022 4:05 [facility] Jacqueline 10-23-2020 [facility] Telephone (GASTTW) ASHLEY GÓMEZ ([id number]) 1955 F Date Time Provider Department 10/23/20 [...] Take 10 mg by mouth once magaly* NELXSISCE-NOORVFRVO-Q TROPINE-* Take by mouth. Takes 1 to [...] by GERMAN RAMIREZ MD on 10/23/20 Normal [facility] No Panel Information SARS-CoV-2 & FLU Antigen (Rapid) [facility] Work Phone: Vital Signs Date Time Vital Sign Value Performing Clinician Facility 11-12-2024 09:09-0400 Diastolic blood pressure 80 mm[Hg] Siomara Estrada PA-C Work Phone: [facility] [employer] 11-12-2024 09:09-0400 Systolic blood pressure 132 mm[Hg] Siomara Estrada PA-C Work Phone: [facility] [employer] 11-12-2024 08:38-0400 Body height 162.6 cm Siomara Estrada PA-C Work Phone: [employer] 11-12-2024 08:38-0400 Body mass index (BMI) [Ratio] 20.6 kg/m2 Siomara Estrada PA-C Work Phone: [employer] 11-12-2024 08:38-0400 Body temperature 97.2 [degF] Siomara Estrada PA-C Work Phone: [employer] 11-12-2024 08:38-0400 Body weight 54.43 kg Siomara Estrada PA-C Work Phone: [employer] 11-12-2024 08:38-0400 Heart rate 83 /min Siomara Estrada PA-C Work Phone: [employer] 11-12-2024 08:38-0400 SaO2% (BldA) [Mass fraction] 90 % Siomara Estrada PA-C Work Phone: [employer] 02-22-2024 12:58-0400 Body height 162.6 cm Gasper Nelson DO Work Phone: [employer] [employer] 02-22-2024 12:58-0400 Body mass index (BMI) [Ratio] 21.11 kg/m2 Gasper Nelson DO Work Phone: [employer] 02-22-2024 12:58-0400 Body temperature 97 [degF] Gasper Nelson DO Work Phone: [facility] [employer] 02-22-2024 12:58-0400 Body weight 55.79 kg Gasper Nelson DO Work Phone: [facility] [employer] 02-22-2024 12:58-0400 Diastolic blood pressure 74 mm[Hg] Gasper Nelson DO Work Phone: [facility] [employer] 02-22-2024 12:58-0400 Heart rate 71 /min Gasper Nelson DO Work Phone: [facility] [employer] 02-22-2024 12:58-0400 SaO2% (BldA) [Mass fraction] 97 % Gasper Nelson DO Work Phone: [facility] [employer] 02-22-2024 12:58-0400 Systolic blood pressure 115 mm[Hg] Gasper Nelson DO Work Phone: [facility] [employer] 07-31-2023 15:37-0500 Body height 162.6 cm Gasper Nelson DO Work Phone: [facility] [employer] 07-31-2023 15:37-0500 Body mass index (BMI) [Ratio] 20.53 kg/m2 Gasper Nelson DO Work Phone: [facility] [employer] 07-31-2023 15:37-0500 Body temperature 97.81 [degF] Gasper Nelson DO Work Phone: [facility] [employer] 07-31-2023 15:37-0500 Body weight 54.25 kg Gasper Nelson DO Work Phone: [employer] 07-31-2023 15:37-0500 Diastolic blood pressure 78 mm[Hg] Gasper Nelson DO Work Phone: [employer] 07-31-2023 15:37-0500 Heart rate 80 /min Gasper Nelson DO Work Phone: [facility] [employer] 07-31-2023 15:37-0500 SaO2% (BldA) [Mass fraction] 94 % Gasper Nelson DO Work Phone: [facility] [employer] 07-31-2023 15:37-0500 Systolic blood pressure 138 mm[Hg] Gasper Nelson DO Work Phone: [facility] [employer] 01-13-2023 09:24-0400 Body height 162.6 cm Gasper Nelson DO Work Phone: [facility] [employer] 01-13-2023 09:24-0400 Body mass index (BMI) [Ratio] 19.74 kg/m2 Gasper Nelson DO Work Phone: [facility] [employer] 01-13-2023 09:24-0400 Body temperature 97.5 [degF] Gasper Nelson DO Work Phone: [facility] [employer] 01-13-2023 09:24-0400 Body weight 52.16 kg Gasper Nelson DO Work Phone: [facility] [employer] 01-13-2023 09:24-0400 Diastolic blood pressure 73 mm[Hg] Gasper Nelson DO Work Phone: [facility] [employer] 01-13-2023 09:24-0400 Heart rate 89 /min Gasper Nelson DO Work Phone: [facility] [employer] 01-13-2023 09:24-0400 SaO2% (BldA) [Mass fraction] 99 % Gasper Nelson DO Work Phone: [facility] [employer] 01-13-2023 09:24-0400 Systolic blood pressure 118 mm[Hg] Gasper Nelson DO Work Phone: [facility] [employer] 11-14-2022 11:49-0400 Body height 162.6 cm Siomara Estrada PA-C Work Phone: [facility] [employer] 11-14-2022 11:49-0400 Body mass index (BMI) [Ratio] 20.6 kg/m2 Siomara Estrada PA-C Work Phone: [facility] [employer] 11-14-2022 11:49-0400 Body temperature 98.01 [degF] Siomara Estrada PA-C Work Phone: [facility] [employer] 11-14-2022 11:49-0400 Body weight 54.43 kg Siomara Estrada PA-C Work Phone: [facility] [employer] 11-14-2022 11:49-0400 Diastolic blood pressure 80 mm[Hg] Siomara Estrada PA-C Work Phone: [facility] [employer] 11-14-2022 11:49-0400 Heart rate 82 /min Siomara Estrada PA-C Work Phone: [facility] [employer] 11-14-2022 11:49-0400 SaO2% (BldA) [Mass fraction] 95 % Siomara Estrada PA-C Work Phone: [facility] [employer] 11-14-2022 11:49-0400 Systolic blood pressure 138 mm[Hg] Siomara Estrada PA-C Work Phone: [facility] [employer] 10-03-2022 08:39-0500 Body height 162.6 cm Danish Monteso DO Work Phone: [facility] [employer] 10-03-2022 08:39-0500 Body mass index (BMI) [Ratio] 20.63 kg/m2 Danish Monteso DO Work Phone: [facility] [employer] 10-03-2022 08:39-0500 Body temperature 97.11 [degF] Danish Monteso DO Work Phone: [facility] [employer] 10-03-2022 08:39-0500 Body weight 54.52 kg Danish Monteso DO Work Phone: [employer] 10-03-2022 08:39-0500 Diastolic blood pressure 63 mm[Hg] Danish Jyotio DO Work Phone: [facility] [employer] 10-03-2022 08:39-0500 Heart rate 74 /min Danish Jyotio DO Work Phone: [facility] [employer] 10-03-2022 08:39-0500 SaO2% (BldA) [Mass fraction] 93 % Danish Davila DO Work Phone: [facility] 10-03-2022 08:39-0500 Systolic blood pressure 118 mm[Hg] Danish Davila DO Work Phone: [facility] 01-31-2022 09:50-0400 Body temperature 99.4 [degF] [facility] Work Phone: 01-31-2022 09:50-0400 Diastolic blood pressure 97 mm[Hg] [facility] Work Phone: 01-31-2022 09:50-0400 Heart rate 100 /min [facility] Work Phone: 01-31-2022 09:50-0400 Respiratory rate 18 /min [facility] Work Phone: 01-31-2022 09:50-0400 SaO2% (BldA) [Mass fraction] 96 % [facility] Work Phone: 01-31-2022 09:50-0400 Systolic blood pressure 116 mm[Hg] [facility] Work Phone: 01-31-2022 09:20-0400 Body height 160.02 cm [facility] Work Phone: 01-31-2022 09:20-0400 Body mass index (BMI) [Ratio] 21.2 kg/m2 [facility] Work Phone: 01-31-2022 09:20-0400 Body weight 54.43 kg [facility] Work Phone: Encounters Encounter Date Encounter Type Care Provider Facility Start: 02-10-2025 End: 02-10-2025 Orders Only Gasper Nelson DO Work Phone: [facility] [place] Comment on above: Chronic obstructive pulmonary disease with acute exacerbation (HCC) Release of Informati on Other insomnia Start: 02-09-2025 End: 02-10-2025 Refill Siomara Estrada PA-C Work Phone: [facility] Comment on above: Chronic obstructive pulmonary disease with acute exacerbation (HCC) Start: 12-13-2024 End: 12-13-2024 Refill Gasper Serrano Argentina DO [facility] Start: 11-20-2024 End: 12-02-2024 Refill Gasper Serrano Argentina DO Work Phone: [facility] Comment on above: Other insomnia Start: 11-12-2024 End: 11-12-2024 Assay of hemosiderin, quant Siomara Estrada PA-C Work Phone: [facility] Work Phone: Start: 11-12-2024 End: 11-12-2024 Patient encounter procedure Siomara Estrada PA-C Work Phone: [facility] Comment on above: Routine general medi olga lidia examination at health care facility (Primary Dx); Encounter for screening mammogram for malignant neoplasm of breast; Hypercholesterolemia; Chronic obstructive pulmonary disease with acute exacerbation (HCC); Gastroesophageal reflux disease without esophagitis Start: 11-12-2024 End: 11-12-2024 ambulatory [facility] Start: 11-12-2024 End: 11-12-2024 Encounter for general adult medical examination without abnormal findings [facility] Start: 10-31-2024 End: 10-31-2024 [facility] encounter [facility] Start: 10-31-2024 End: 10-31-2024 ambulatory [facility] Start: 10-31-2024 End: 10-31-2024 Office outpatient visit 15 minutes Gasper Nelson DO Work Phone: [facility] Comment on above: Chronic obstructive pulmonary disease with acute exacerbation (HCC) (Primary Dx); Influenza Start: 09-28-2024 End: 09-30-2024 Refill Gasper Serrano Argentina DO Work Phone: [facility] Start: 09-14-2024 End: 09-16-2024 Refill Gasper Nelson DO Work Phone: [facility] Start: 07-29-2024 End: 07-29-2024 ambulatory GASPER NELSON [facility] Start: 07-29-2024 End: 07-29-2024 Subsequent hospital visit by physician Gasper Maggie Nelson DO Work Phone: [facility] Comment on above: Abnormal CT scan of lung; Smoker Start: 07-24-2024 End: 07-24-2024 Refill Gasper Nelson DO Work Phone: [facility] Start: 06-28-2024 End: 07-01-2024 Telephone encounter [facility] DO [facility] Start: 06-11-2024 End: 06-11-2024 Refill Gasper Nelson DO Work Phone: [facility] Start: 04-29-2024 End: 04-29-2024 ambulatory [facility] Facility:[facility] Start: 04-23-2024 End: 06-20-2024 Telephone encounter [facility] Comment on above: Care Coordination (L aldair Screening Follow up reminder - certified letter sent ) Start: 04-17-2024 End: 04-17-2024 Refill Gasper Nelson DO Work Phone: [facility] Start: 04-11-2024 End: 04-11-2024 Telephone encounter Gasper Nelson DO Work Phone: [facility] Comment on above: Other (Scheduling at [facility]) Start: 03-20-2024 ambulatory [facility] Facility[facility] Start: 02-22-2024 End: 02-22-2024 Telephone encounter Gasper Neslon DO Work Phone: [facility] Comment on above: Referral (Dr Weiss) Start: 02-22-2024 End: 02-22-2024 Office outpatient visit 25 minutes Gasper Nelson DO Work Phone: [facility] Comment on above: Chronic obstructive pulmonary disease, unspecified COPD type (HCC) (Primary Dx); Abnormal CT scan of lung; Hypercholesterolemia; Colon cancer screening; Breast cancer screening by mammogram; Depression, unspecified depression type; Gastroesophageal reflux disease without esophagitis; Ex-smoker for less than 1 year Start: 02-22-2024 End: 02-22-2024 ambulatory [facility] Start: 02-05-2024 Telephone encounter Gasper Maggie Yair etrilla DO Work Phone: [facility] Comment on above: Results Start: 01-02-2024 Refill Gasper Serrano Puneet cama DO Work Phone: [facility] Start: 01-01-2024 Orders Only Gasper cama DO Work Phone: [facility] Start: 12-24-2023 Orders Only Gasper Serrano Puneet cama DO Work Phone: [facility] Start: 12-22-2023 Telephone encounter Gasper Maggie Yair etrilla DO Work Phone: [facility] Comment on above: Appointment ([facility]) Start: 12-21-2023 Orders Only Gasper Serrano Puneet cama DO Work Phone: [facility] Comment on above: COPD with acute exac erbation (HCC); Lower resp. tract infection Start: 12-18-2023 End: 12-18-2023 Subsequent hospital visit by physician Gasper Nelson DO Work Phone: [facility] Comment on above: Smoker; Moderate smoker (20 or less per day) Start: 12-17-2023 Refill Gasper Maggie Puneet lla DO Work Phone: [facility] Start: 08-01-2023 Telephone encounter Gasper Mazariegos etrilla DO Work Phone: [facility] Comment on above: Orders (LDCT due in November 2023) Start: 07-31-2023 End: 07-31-2023 Office outpatient visit 15 minutes Gasper Serrano Puneetsam DO Work Phone: [facility] Comment on above: Chronic obstructive pulmonary disease, unspecified COPD type (HCC) (Primary Dx); Depression, unspecified depression type; Gastroesophageal reflux disease without esophagitis; Hypercholesterolemia Start: 03-14-2023 Telephone encounter Gasper byrnes DO Work Phone: [facility] Comment on above: Handicap Placard Start: 02-27-2023 Telephone encounter Gasper Mazariegos etgretchen DO Work Phone: [facility] Comment on above: Scheduling Start: 01-15-2023 Orders Only Gasper vargas DO Work Phone: [facility] Start: 01-13-2023 Telephone encounter Gasper byrnes DO Work Phone: [facility] Comment on above: Orders (LDCT) Start: 01-13-2023 End: 01-13-2023 Office outpatient visit 25 minutes Gasper Nelson DO Work Phone: [facility] Comment on above: Chronic obstructive pulmonary disease, unspecified COPD type (HCC) (Primary Dx); Hypercholesterolemia; Gastroesophageal reflux disease without esophagitis; Smoker; Depression, unspecified depression type Start: 11-14-2022 [facility]ulatory [facility] Start: 11-14-2022 Patient encounter procedure [facility] Start: 11-14-2022 End: 11-14-2022 Office outpatient visit 25 minutes Siomara Estrada PA-C Work Phone: [facility] Comment on above: COPD with acute exac erbation (CMS/HCC) (HCC) (Primary Dx); Lower resp. tract infection; Smoking Start: 10-24-2022 End: 10-24-2022 ambulatory [facility] Work Phone: Start: 10-24-2022 End: 10-24-2022 Patient encounter procedure [facility] Start: 10-20-2022 Telephone encounter Danish berumen DO Work Phone: [facility] Comment on above: Orders Start: 10-17-2022 Telephone encounter Danish berumen DO Work Phone: [facility] Comment on above: Orders (Fax 10/03/22 XR Chest SULAIMAN, Pt at [facility]) Start: 10-04-2022 Telephone encounter Danish berumen DO Work Phone: [facility] Comment on above: Advice Only (cough) Start: 10-03-2022 End: 10-03-2022 Patient encounter procedure Danish Davila DO Work Phone: [facility] Comment on above: Medicare annual well ness visit, subsequent (Primary Dx); Cough, unspecified type; Chronic obstructive pulmonary disease, unspecified COPD type (HCC); Anxiety; Depression, unspecified depression type; Hypercholesterolemia; Mammogram declined; Colonoscopy refused Start: 04-22-2022 End: 04-22-2022 ambulatory [facility] Work Phone: Start: 04-22-2022 End: 04-22-2022 Patient encounter procedure [facility] Start: 01-31-2022 End: 01-31-2022 Emergency department patient visit [facility] Start: 01-11-2022 End: 01-11-2022 Subsequent hospital visit by physician Danish Davila DO Work Phone: [facility] Comment on above: Menopause Start: 01-10-2022 End: 01-10-2022 Patient encounter procedure [facility] Procedures Date Procedure Procedure Detail Performing [...] 04-29-2034 Screening for malignant neoplasm of colon [facility] Start: 12-17-2028 Lipid panel Lipid Panel [facility] Start: 01-14-2028 Lipid panel Lipid Panel [facility] Start: 06-04-2026 Lipid panel Lipid Panel [facility] Start: 11-12-2025 COVID-19 Vaccine ( season) COVID-19 Vaccine ( season) [facility] Comment on above: Postponed from 05/05/2024 (Patient Refus ed) Start: 11-12-2025 RSV Immunization for Adults (1 - Risk 60-74 years 1-dose series) RSV Immunization for Adults (1 - Risk 60-74 years 1-dose series) [facility] Comment on above: Postponed from 2014 (Patient Refus ed) Start: 05-15-2025 Depression Monitoring Depression Monitoring [facility] Start: 05-12-2025 End: 05-12-2025 Patient encounter procedure [facility] Start: 05-05-2025 Influenza vaccination Influenza Vaccine (Season Ended) [facility] Start: 03-03-2025 Influenza vaccination Influenza Vaccine (#1) [facility] Comment on above: Postponed from 05/05/2024 (Patient Refus ed) Start: 11-12-2024 End: 11-12-2025 CBC W Auto Differential panel - Blood CBC auto differential Lab Routine Routine general medical examination at [facility] Hypercholesterolemia Expected: 11/12/2024 (Approximate), Expires: 11/12/2025 [facility] Comment on above: Expected: 11/12/2024 (Approximate), Expi res: 11/12/2025 Start: 11-12-2024 End: 11-12-2025 Comprehensive metabolic 1998 panel - Serum or Plasma Comprehensive metabolic panel Lab Routine Routine general medical examination at [facility] Hypercholesterolemia Expected: 11/12/2024 (Approximate), Expires: 11/12/2025 [facility] Comment on above: Expected: 11/12/2024 (Approximate), Expi res: 11/12/2025 Start: 11-12-2024 End: 01-12-2026 DBT Breast - bilateral screening Bilateral screening mammogram with tomosynthesis Imaging Routine Encounter for screening mammogram for malignant neoplasm of breast Expected: 11/12/2024, Expires: 01/12/2026 [facility] [employer] [facility] Work Phone: Comment on above: Expected: 11/12/2024, Expires: Start: 11-12-2024 End: 11-12-2025 Lipid 1996 panel - Serum or Plasma Lipid panel Lab Routine Hypercholesterolemia Expected: 11/12/2024 (Approximate), Expires: 11/12/2025 [facility] Comment on above: Expected: 11/12/2024 (Approximate), Expi res: 11/12/2025 Start: 11-12-2024 End: 11-12-2024 Patient encounter procedure [facility] [place] Start: 09-30-2024 End: 09-30-2024 Patient encounter procedure 09/30/2024 4:00 PM EST Office Visit [facility] [place] [address] [place] [address] Gasper Nelson DO [address] [place] [address] [place] [address] [facility] [place] Start: 09-04-2024 Medicare Advantage Annual Wellness Visit Medicare [facility] Annual Wellness Visit [facility] Start: 08-21-2024 End: 08-21-2024 Patient encounter procedure [facility] Start: 07-29-2024 End: 07-29-2024 Patient encounter procedure 07/29/2024 11:[address] [facility] [address] [place] [address] Gasper Nelson, DO [address] [place] [place] [address] [facility] Start: 07-29-2024 Subsequent hospital visit by physician 07/29/2024 11:30 AM EST Hospital Encounter [facility] [address] [place] [address] Gasper Nelson, DO [address] [place] [place] [address] [facility] Start: 05-05-2024 COVID-19 Vaccine ( season) COVID-19 Vaccine ( season) [facility] Start: 05-05-2024 COVID-19 Vaccine ( season) COVID-19 Vaccine ( season) [facility] Start: 05-05-2024 Influenza vaccination [facility] Start: 04-29-2024 End: 04-29-2024 Patient encounter procedure 04/29/2024 4:00 PM EDT Office Visit [facility] [address] [place] [address] Gasper Nelson, DO [address] [place] [place] [address] [facility] Start: 06-22-2024 Screening for malignant neoplasm of colon [facility] Start: 02-22-2024 End: 02-21-2025 CBC W Auto Differential panel - Blood CBC auto differential Lab Routine Chronic obstructive pulmonary disease, unspecified COPD type (HCC) Expected: 02/22/2024 (Approximate), Expires: 02/21/2025 [facility] Comment on above: Expected: 02/22/2024 (Approximate), Expi res: 02/21/2025 Start: 02-22-2024 End: 02-21-2025 Complete PFT pre and post bronchodilator Complete PFT pre and post bronchodilator PFT Routine Chronic obstructive pulmonary disease, unspecified COPD type (HCC) Expected: 02/22/2024 (Approximate), Expires: 02/21/2025 [facility] Comment on above: Expected: 02/22/2024 (Approximate), Expi res: 02/21/2025 Start: 02-22-2024 End: 02-21-2025 Comprehensive metabolic 1998 panel - Serum or Plasma Comprehensive metabolic panel Lab Routine Chronic obstructive pulmonary disease, unspecified COPD type (HCC) Expected: 02/22/2024 (Approximate), Expires: 02/21/2025 [facility] Comment on above: Expected: 02/22/2024 (Approximate), Expi res: 02/21/2025 Start: 02-22-2024 End: 02-21-2025 CT Chest for screening WO contrast CT lung screening follow up low dose Imaging Routine Abnormal CT scan of lung Smoker Expected: 02/22/2024, Expires: 02/21/2025 [employer] Work Phone: Comment on above: Expected: 02/22/2024, Expires: Start: 02-22-2024 End: 04-23-2025 DBT Breast - bilateral screening Bilateral screening mammogram with tomosynthesis Imaging Routine Breast cancer screening by mammogram Expected: 02/22/2024, Expires: 04/23/2025 [employer] Work Phone: Comment on above: Expected: 02/22/2024, Expires: Start: 02-22-2024 End: 02-22-2024 Patient encounter procedure 02/22/2024 1:00 PM EDT Office Visit [facility] [address] [place] [address] Gasper Nelson, [address] [place] [place] [address] [facility] Start: 02-14-2024 Screening for malignant neoplasm of colon [facility] Start: 02-05-2024 End: 02-05-2024 Patient encounter procedure 02/05/2024 9:00 AM EDT Office Visit [facility] [address] [place] [address] Gasper Nelson, [address] [place] [address] [place] [address] [facility] Start: 01-22-2024 End: 01-22-2024 Patient encounter procedure 01/22/2024 10:00 AM EDT Office Visit [facility] [address] [place] [address] Gasper Nelson, [address] [place] [address] [place] [address] [facility] Start: 11-02-2023 Medicare Advantage Annual Wellness Visit (AWV) Medicare Advantage Annual Wellness Visit (AWV) [facility] Start: 10-03-2023 Depression Screening Depression Screening [facility] Start: 09-04-2023 Medicare Advantage Annual Wellness Visit Medicare Advantage Annual Wellness Visit [facility] Start: 08-01-2023 End: 08-01-2024 CT Chest for screening WO contrast CT lung screening low dose Imaging Routine Smoker Moderate smoker (20 or less per day) Expected: 08/01/2023, Expires: 08/01/2024 [facility] [employer] [facility] Work Phone: Comment on above: Expected: 08/01/2023, Expires: Start: 07-31-2023 End: 07-31-2024 Lipid 1996 panel - Serum or Plasma Lipid panel Lab Routine Hypercholesterolemia Expected: 07/31/2023 (Approximate), Expires: 07/31/2024 [facility] [employer] Work Phone: Comment on above: Expected: 07/31/2023 (Approximate), Expi res: 07/31/2024 Start: 07-14-2023 End: 07-14-2023 Patient encounter procedure [facility] Start: 05-05-2023 COVID-19 Vaccine () COVID-19 Vaccine () [facility] Start: 05-05-2023 Influenza vaccination Influenza Vaccine (#1) [facility] Start: 04-03-2023 End: 04-03-2023 Patient encounter procedure 04/03/2023 1:[address] [facility] [address] [place] [address] Gasper Nelson, DO [address] [place] [address] [facility] Start: 04-02-2023 Depression Monitoring Depression Monitoring [facility] Start: 01-23-2023 End: 01-23-2023 Patient encounter procedure 01/23/2023 Office Visit Family Medicine Kelsie Lisa, ENGINE RESEARCH ENGINEER - [employer] [address], [place] [id number] [facility] Start: 01-13-2023 End: 01-14-2024 CBC W Auto Differential panel - Blood CBC auto differential Lab Routine Smoker Expected: 01/13/2023 (Approximate), Expires: 01/14/2024 [facility] Work Phone: Comment on above: Expected: 01/13/2023 (Approximate), Expi res: 01/14/2024 Start: 01-13-2023 End: 01-14-2024 Comprehensive metabolic 1998 panel - Serum or Plasma Comprehensive metabolic panel Lab Routine Hypercholesterolemia Expected: 01/13/2023 (Approximate), Expires: 01/14/2024 [facility] Comment on above: Expected: 01/13/2023 (Approximate), Expi res: 01/14/2024 Start: 01-13-2023 End: 01-14-2024 CT Chest for screening WO contrast CT lung screening low dose Imaging Routine Smoker Expected: 01/13/2023, Expires: 01/14/2024 [facility] Work Phone: Comment on above: Expected: 01/13/2023, Expires: Start: 01-13-2023 End: 01-14-2024 Lipid 1996 panel - Serum or Plasma Lipid panel Lab Routine Hypercholesterolemia Expected: 01/13/2023 (Approximate), Expires: 01/14/2024 [facility] Comment on above: Expected: 01/13/2023 (Approximate), Expi res: 01/14/2024 Start: 01-13-2023 End: 01-14-2024 Thyrotropin [Units/volume] in Serum or Plasma TSH Lab Routine Hypercholesterolemia Expected: 01/13/2023 (Approximate), Expires: 01/14/2024 [facility] Comment on above: Expected: 01/13/2023 (Approximate), Expi res: 01/14/2024 Start: 01-11-2023 Screening for malignant neoplasm of breast Mammogram [facility] Start: 01-05-2023 Annual Wellness Visit (AWV) Annual Wellness Visit (AWV) [facility] Start: 12-24-2022 Depression Monitoring Depression Monitoring [facility] Start: 10-18-2022 End: 10-18-2023 Alanine aminotransferase [Enzymatic activity/volume] in Serum or Plasma ALT Lab Routine Hypercholesterolemia Expected: 10/18/2022 (Approximate), Expires: 10/18/2023 [facility] Comment on above: Expected: 10/18/2022 (Approximate), Expi res: 10/18/2023 Start: 10-18-2022 End: 10-18-2023 Aspartate aminotransferase [Enzymatic activity/volume] in Serum or Plasma AST Lab Routine Hypercholesterolemia Expected: 10/18/2022 (Approximate), Expires: 10/18/2023 [facility] Comment on above: Expected: 10/18/2022 (Approximate), Expi res: 10/18/2023 Start: 10-18-2022 End: 10-18-2023 Lipid 1996 panel - Serum or Plasma Lipid panel Lab Routine Hypercholesterolemia Expected: 10/18/2022 (Approximate), Expires: 10/18/2023 [facility] Comment on above: Expected: 10/18/2022 (Approximate), Expi res: 10/18/2023 Start: 10-03-2022 End: 10-03-2023 XR Chest 2 Views XR chest 2 views Imaging Routine Cough, unspecified type Expected: 10/03/2022, Expires: 10/03/2023 [facility] Work Phone: Comment on above: Expected: 10/03/2022, Expires: Start: 06-04-2022 Lipid panel Lipids [facility] Start: 04-18-2022 End: 04-18-2022 Patient encounter procedure 04/18/2022 Office Visit Family Medicine Danish Davila, DO [address] [place] [address] [facility] Start: 02-03-2022 Pneumococcal 65+ years Vaccine (2 - PCV) Pneumococcal 65+ years Vaccine (2 - PCV) [facility] Start: 02-03-2022 Pneumococcal Vaccine: 65+ Years (2 - PCV) Pneumococcal Vaccine: 65+ Years (2 - PCV) [facility] Start: 01-31-2022 [facility] Work Phone: Start: 2014 RSV Immunization aged 60 or older (1 - 1-dose 60+ series) RSV Immunization aged 60 or older (1 - 1-dose 60+ series) [facility] Start: 2014 RSV Immunization for Adults (1 - Risk 60-74 years 1-dose series) RSV Immunization for Adults (1 - Risk 60-74 years 1-dose series) [facility] Start: 2009 Screening for osteoporosis DEXA (modify frequency per FRAX score) [facility] Start: 2004 Screening for malignant neoplasm of breast Breast cancer screen [facility] Start: 2004 Shingles vaccine (1 of 2) Shingles vaccine (1 of 2) [facility] Start: 2004 Zoster Vaccines (1 of 2) Zoster Vaccines (1 of 2) [facility] Start: 1999 Screening for malignant neoplasm of colon [facility] Start: 1973 DTaP/Tdap/Td vaccine (1 - Tdap) DTaP/Tdap/Td vaccine (1 - Tdap) [facility] Start: 1973 DTaP/Tdap/Td Vaccines (1 - Tdap) DTaP/Tdap/Td Vaccines (1 - Tdap) [facility] Start: 1972 Hepatitis C screening [facility] Start: 1954 Hepatitis B Vaccines (1 of 3 - 3-dose series) Hepatitis B Vaccines (1 of 3 - 3-dose series) [facility] Start: 1955 Screening for malignant neoplasm of colon [facility] End: 12-18-2023 CT Chest for screening WO contrast [facility] Work Phone: Comment on above: Once for 1 Occurrences starting 12/18/19 until 12/18/2023 End: 07-29-2024 CT Chest for screening [facility] Work Phone: Comment on above: Once for 1 Occurrences starting 07/29/20 until 07/29/2024 OUTSIDE PROCEDURE SCAN OUTSIDE P ROCEDURE SCAN Procedures Ordered: 12/15/2023 [facility] Comment on above: Ordered: 12/15/2023 Patient Education ED Pneumonia (Adult) [facility] Work Phone: Patient referral [facility] Work Phone: End: 01-11-2022 Screening digital breast tomosynthesis [facility] Work Phone: Comment on above: Once for 1 Occurrences starting 01/12/20 until 01/11/2022 Immunizations Immunization Date Immunization Notes Care Provider Fa vielka 01-13-2023 Pneumococcal Conjuga te PCV20, Pf (Prevnar 20) Gasper Nelson DO Work Phone: [facility] 05-26-2022 Covid-19, Pfizer Bivalent Booster, (Age 12y+), Im, 30 Mcg/0e Gasper Nelson DO Work Phone: [facility] 05-26-2022 Influenza, High-dose Seasonal, Quadrivalent, Preservative Free Gasper Nelson DO Work Phone: [facility] 05-26-2022 influenza virus vacc ine, unspecified formulation Gasper Nelson DO Work Phone: [facility] 12-11-2021 Covid-19, Pfizer Gra y Top, Do Not Dilute, (Age 12 Y+), Im, L Jolanta Glover RN [facility] 06-28-2021 Pfizer SARS-CoV-2 Vaccination Jolanta Glover RN [facility] 06-04-2021 Influenza, High-dose , Quadv, 65 yrs +, IM (Fluzone) Danish Davila DO Work Phone: [facility] Work Phone: 02-03-2021 pneumococcal polysaccharide vaccine, 23 valent Danish Kamleshvasile DO Work Phone: [facility] Work Phone: 10-14-2020 COVID-19, Pfizer Pur ple top, DILUTE for use, 12+ yrs, 30mcg/0.3mL dose Danish Carmonasachavasile DO Work Phone: [facility] Work Phone: 09-23-2020 COVID-19, Pfizer Pur ple top, DILUTE for use, 12+ yrs, 30mcg/0.3mL dose Danish Davila DO Work Phone: [facility] 09-25-2013 hepatitis B vaccine, pediatric or pediatric/adolescent dosage [facility] 05-05-2013 Influenza virus vaccine W [facility] 05-05-2013 influenza, seasonal, injectable Gasper Nelson DO Work Phone: [facility] 09-04-2009 Pneumococcal Vaccine [facility] Work Phone: 09-04-2009 pneumococcal vaccine , unspecified formulation [facility] 07-14-2009 novel influenza-H1N1 -09, preservative-free, injectable Gasper Nelson DO Work Phone: [facility] 11-28-2008 hepatitis B vaccine, pediatric or pediatric/adolescent dosage Gasper Nelson DO Work Phone: [facility] 06-02-2008 hepatitis B vaccine, pediatric or pediatric/adolescent dosage Gasper Nelson DO Work Phone: [facility] 05-02-2008 hepatitis B vaccine, pediatric or pediatric/adolescent dosage Gasper Nelson DO Work Phone: [facility] Payers Date Payer Category Payer Self-pay [id number] 2019 Medicare [employer] H[employer]AN MEDICARE [id number] 2019-Present [address] [address] [place] [address] Medicare HMO [id number] 2019 Medicare HMO [employer]ICARE [id number] 2019 Medicare [id number] 2 Unknown [id number] 2 Unknown [id number] 2 Social History Date Type Detail Facility Start: 09-24-2019 End: 02-22-2024 Tobacco smoking status NHIS Smokes tobacco daily [employer] Work Phone: Start: 09-24-2019 History of tobacco use Cigarette Smo ker [employer] Work Phone: Start: 03-24-2020 End: 11-12-2024 Cigarettes smoked current (pack per day) - Reported 1 [employer] Phone: Start: 03-24-2020 End: 02-22-2024 Tobacco use and exposure Smokeless tobacco non-user [employer] Work Phone: Start: 12-24-2021 End: 02-10-2025 Alcohol intake Ex-drinker (finding) [employer] Phone: Start: 05-06-2021 End: 01-04-2022 History SDOH Alcohol Frequency 1 [employer] Phone: Start: 03-24-2020 History SDOH Social Connections Phone 2 [employer] Phone: Start: 03-24-2020 History SDOH Social Connections Anab[employer]ist 3 [employer] Phone: Start: 03-24-2020 History SDOH Social Connections Living 4 [employer] Phone: Start: 01-04-2022 History SDOH Physica l Activity DPW 0 [employer] Phone: Start: 1955 Sex Assigned At Female S MA Start: 07-19-2015 End: 01-31-2022 Tobacco smoking status NHIS Unknown if ever smoked [facility] Start: 05-23-2014 None [employer] [facility] Start: 05-07-[address] [facility] Start: 05-07-2021 [facility] Start: 11-04-2022 End: 01-13-2023 Exposure to SARS-CoV-2 (event) Not sure [facility] Start: 01-13-2023 End: 11-12-2024 Tobacco use panel [facility] Start: 06-23-2022 Gender identity Identifies as female gender (finding) [facility] Start: 06-23-2022 Sexual orientation Heterosexual (homar you) [facility] Start: 04-04-2022 Sex Female (finding) [facility] How often do you nee d to have someone help you when you read instructions, pamphlets, or other written material from your doctor or pharmacy [SILS] Never [facility] Has the [employer], [employer], [employer], or water [employer] threatened to shut off services in your home in past 12Mo No [facility] Are you now , , , , never or living with a partner? [facility] How often to you hav e a drink containing alcohol? Never [facility] Do you feel stress - tense, restless, nervous, or anxious, or unable to sleep at night because your mind is troubled all the time - these days [OSQ] Not at all [facility] (I/We) worried wheth er (my/our) food would run out before (I/we) got money to buy more. Never true [facility] Clinical Notes 10-03-2022 to 02-11-2025 Telephone Encounter - Mia Alvarez MA - 02/11/2025 9:02 AM EDTTelephone Encounter - Mia Alvarez MA - 02/11/2025 9:02 AM EDTAddendum Note - Juju Patton MA - 02/10/2025 3:52 PM EDT Note Date & Type Note Facility 02-11-2025 Telephone encounter Note Patient advised and voiced understanding. [facility] 02-11-2025 Miscellaneous Notes Patient advised and [...] in. Please advise documented in this encounter [facility] 02-10-2025 Telephone encounter Note Called patient to relay provider message left voicemail to call office back. Mychart message sent to patient. Please relay message to patient. [facility] 02-10-2025 Miscellaneous Notes Called patient to [...] in. Please advise documented in this encounter [facility] 02-10-2025 Note Addended by: Ki PATTON on: 02/10/2025 03:52 PM Modules accepted: Orders [facility] 02-10-2025 Note Addended by: Ki PATTON on: 02/10/2025 03:52 PM Modules accepted: Orders [facility] 02-10-2025 Note Addended by: Ki PATTON on: 02/10/2025 03:52 PM Modules accepted: Orders [facility] 02-10-2025 Note Addended by: Ki PATTON on: 02/10/2025 03:52 PM Modules accepted: Orders [facility] 02-10-2025 Note Addended by: Ki PATTON on: 02/10/2025 03:52 PM Modules accepted: Orders [facility] 02-10-2025 Telephone encounter Note Message released [...] a new script sent in. Please advise [facility] 02-10-2025 Telephone encounter Note Recent Visits Date Type Provider Dept 11/12/24 Office Visit Siomara Estrada PA-C [facility] 02/22/24 Office Visit Gasper Serrano [place], [facility] Showing recent visits within past 365 [...] Most recent labs completed in chart? N/A [facility] 02-10-2025 Miscellaneous Notes Recent Visits Date Type Provider Dept 11/12/24 Office Visit Siomara Estrada PA-C [facility] 02/22/24 Office Visit Gasper Maggie Nelson, [facility] Showing recent visits within past 365 [...] in chart? N/A documented in this encounter [facility] 12-13-2024 Telephone encounter Note Recent Visits Date Type Provider Dept 11/12/24 Office Visit Siomara Estrada PA-C [facility] 02/22/24 Office Visit Gasper Nelson DO [facility] Showing recent visits within past 365 [...] CHOLHDLCRATI 4.2 01/13/2023 NONHDLCHOLES 174 (H) 01/13/2023 [facility] 12-13-2024 Miscellaneous Notes Recent Visits Date Type Provider Dept 11/12/24 Office Visit Siomara Estrada PA-C [facility] 02/22/24 Office Visit Gasper Nelson DO [facility] Showing recent visits within past 365 [...] 174 (H) 01/13/2023 documented in this encounter [facility] 12-02-2024 Note Outreach to patient to provide information on how to enroll in silver sneakers and she requested refill of Trazadone for sleep issues last filled in 06/28 for 90 days, last OV 11/12/[address] [facility] 12-02-2024 Telephone encounter Note Outreach to patient to provide information on how to enroll in silver sneakers and she requested refill of Trazadone for sleep issues last filled in 06/28 for 90 days, last OV 11/12/24 [facility] 12-02-2024 Miscellaneous Notes Outreach to patient to provide information on how to enroll in silver sneakers and she requested refill of Trazadone for sleep issues last filled in 06/28 for 90 days, last OV 11/12/24 documented in this encounter [facility] 11-12-2024 Evaluation + Plan note Associated [...] as her levels have been adequately controlled [facility] 11-12-2024 Miscellaneous Notes Associated Problem(s): Hypercholesterolemia [...] encouraged smoking cessation. documented in this encounter [facility] 11-12-2024 Evaluation + Plan note Associated Problem(s): GERD (gastroesophageal reflux disease) - Chronic stable she will continue on esomeprazole 40 mg daily. [facility] 11-12-2024 Evaluation + Plan note Associated Problem(s): COPD (chronic obstructive pulmonary disease) (HCC) - Chronic stable patient was recently treated for flareup with amoxicillin and prednisone she can take the prednisone she is requesting a lower dose Medrol Dosepak and a second round of antibiotics that she started in some generalized wheezing and congestion strongly encouraged smoking cessation. [facility] 11-12-2024 History of Present illness Narrative Images from the original note were not included. [facility] - [address] [facility] [address] Dept: [phone] Dept Chief Complaint: Ashley Gómez is an [...] this issue and continues to work at [employer]. Would like to get involved with [employer] sneakers. 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 A preventive dental visit is recommended every 6 months. Try to get at least 150 minutes of exercise per week or 10,000 steps per day on a pedometer. You need 1200-1500mg of calcium and [id number] international units of vitamin D per day. [...] or a motorcycle documented in this encounter [facility] 10-31-2024 History of Present illness Narrative Images from the original note were not included. [facility] - [address] [facility] [address] Dept: [phone] Dept Loc: [phone] Patient was identified and seen today via [...] stated that they are currently in the [facility]. If the patient is a [...] 10/31/2024 12:20 PM documented in this encounter [facility] 10-31-2024 Telephone encounter Note S: Patient [...] not coughing Protocols used: Cough - Acute [id number] [facility] 10-31-2024 Miscellaneous Notes S: Patient spoke [...] not coughing Protocols used: Cough - Acute [id number] documented in this encounter [facility] 10-01-2024 Telephone encounter Note Received signed receipt of certified letter sent to patient. Scanned to media in chart. [facility] 10-01-2024 Miscellaneous Notes Received signed receipt of certified letter sent to patient. Scanned to media in chart. No auth needed. Faxed orders to [facility]-Scheduling for pt to be sched - [facility] will sched/advise pt. My chart mess sent to patient with info to sched. Vincent Perez, It looks like the patient navigator has done all that she can do. So it looks like all avenues have been exhausted to try and reach this patient to schedule. To [place] to follow up Mrs. Gómez called in after receiving certified letter. She would like to return to complete the recommended lung screening 3 month follow-up imaging previously ordered by Dr. Nelson. Will send message to provider office to place new referral for imaging and assist patient with scheduling. She prefers [place] for imaging location and is available on [...] for the recommended 3-month follow-up CT chest. [facility] central scheduling and provider office have made multiple attempts to contact patient to assist with scheduling imaging. Navigator mailed patient lung screening follow-up reminder letter and lung nodule patient information. If patient does not call in to schedule imaging, navigator will plan to send certified letter. documented in this encounter [facility] 09-30-2024 Telephone encounter Note Recent Visits Date Type Provider Dept 02/22/24 Office Visit Gasper Nelson DO [facility] Showing recent visits within past 365 days and meeting all other requirements Future Appointments Date Type Provider Dept 11/12/24 Appointment Gasper Nelson DO [facility] Showing future appointments within next 90 [...] recent labs completed in chart? N/A None [facility] 09-30-2024 Miscellaneous Notes Recent Visits Date Type Provider Dept 02/22/24 Office Visit Gasper Nelson DO [facility] Showing recent visits within past 365 days and meeting all other requirements Future Appointments Date Type Provider Dept 11/12/24 Appointment Gasper Nelson DO [facility] Showing future appointments within next 90 [...] chart? N/A None documented in this encounter [facility] 09-16-2024 Telephone encounter Note Recent Visits [...] CHOLHDLCRATI 4.2 01/13/2023 NONHDLCHOLES 174 (H) 01/13/2023 [facility] 09-16-2024 Miscellaneous Notes Recent Visits Date [...] 174 (H) 01/13/2023 documented in this encounter [facility] 07-24-2024 Telephone encounter Note Recent Visits Date Type Provider Dept 02/22/24 Office Visit Gasper Nelson DO [facility] 07/31/23 Office Visit Gasper Nelson DO [facility] Showing recent visits within past 365 [...] CHOLHDLCRATI 4.2 01/13/2023 NONHDLCHOLES 174 (H) 01/13/2023 [facility] 07-24-2024 Miscellaneous Notes Recent Visits Date Type Provider Dept 02/22/24 Office Visit Gasper Serrano [place], DO [facility] 07/31/23 Office Visit Gasper Serrano Puneetdorinaki DO [facility] Showing recent visits within past 365 days and meeting all other requirements Future Appointments Date Type Provider Dept 08/21/24 Appointment Gasper NelsonDO [facility] Showing future appointments within [...] 174 (H) 01/13/2023 documented in this encounter [facility] 06-28-2024 Telephone encounter Note Reason for [...] to get her scheduled. Thank you Contact [facility] 06-28-2024 Miscellaneous Notes Reason for call: [...] Thank you Contact documented in this encounter [facility] 06-28-2024 Telephone encounter Note No auth needed. Faxed orders to [facility]-Scheduling for pt to be sched - [facility] will sched/advise pt. My chart mess sent to patient with info to sched. [facility] 06-28-2024 Miscellaneous Notes No auth needed. [...] and assist patient with scheduling. She prefers [place] for imaging location and is available on [...] for the recommended 3-month follow-up CT chest. [facility] central scheduling and provider office have made multiple attempts to contact patient to assist with scheduling imaging. Navigator mailed patient lung screening follow-up reminder letter and lung nodule patient information. If patient does not call in to schedule imaging, navigator will plan to send certified letter. documented in this encounter [facility] 06-27-2024 Telephone encounter Note Vincent Perez, It looks like the patient navigator has done all that she can do. So it looks like all avenues have been exhausted to try and reach this patient to schedule. [facility] 06-27-2024 Miscellaneous Notes Vincent Perez, It [...] and assist patient with scheduling. She prefers [place] for imaging location and is available on [...] for the recommended 3-month follow-up CT chest. [facility] central scheduling and provider office have made multiple attempts to contact patient to assist with scheduling imaging. Navigator mailed patient lung screening follow-up reminder letter and lung nodule patient information. If patient does not call in to schedule imaging, navigator will plan to send certified letter. documented in this encounter [facility] 06-27-2024 Telephone encounter Note To April to follow up [facility] 06-27-2024 Telephone encounter Note Mrs. Gómez called in after receiving certified letter. She would like to return to complete the recommended lung screening 3 month follow-up imaging previously ordered by Dr. Nelson. Will send message to provider office to place new referral for imaging and assist patient with scheduling. She prefers [place] for imaging location and is available on Monday if there are any appointments available. [facility] 06-20-2024 Note Patient still has no t completed the recommended lung screening follow-up imaging. Navigator mailed certified letter, lung nodule education materials, and offered to assist with overcoming barriers to care. [facility] 06-20-2024 Telephone encounter Note Patient still has not completed the recommended lung screening follow-up imaging. Navigator mailed certified letter, lung nodule education materials, and offered to assist with overcoming barriers to care. [facility] 06-20-2024 Miscellaneous Notes Patient still has not completed the recommended lung screening follow-up imaging. Navigator mailed certified letter, lung nodule education materials, and offered to assist with overcoming barriers to care. Ms. Gómez had a Lung RADS [address] scan on 12/18/2023. Her primary care provider placed a referral for the recommended 3-month follow-up CT chest. [facility] central scheduling and provider office have made multiple attempts to contact patient to assist with scheduling imaging. Navigator mailed patient lung screening follow-up reminder letter and lung nodule patient information. If patient does not call in to schedule imaging, navigator will plan to send certified letter. documented in this encounter [facility] 06-11-2024 Telephone encounter Note RX loaded Next ov 08/21/24 [facility] 06-11-2024 Miscellaneous Notes RX loaded Next [...] the medication: Yes documented in this encounter [facility] 06-11-2024 Telephone encounter Note Medication name: [...] prior to picking up the medication: Yes [facility] 04-29-2024 Note [facility] Medical Records Department [address] [place] [address] History Physical Exam 04/29/24 0756 MR#: [id number] Acct: [id number] Name: ASHLEY GÓMEZ Rep #: [id number] : 1955 68 From: Slim Friend DO PCP: Dr. Danish Davila, DO Status:[facility] Location: [address] - General General Date of Admission: [...] Overall she is in fairly good health. [facility] Medical History (Updated 04/26/24 @ 14:43 by [...] none current occupational status: employed current occupation: [employer] Smoking Status: Former smoker Tobacco: How many [...] Dr. Danish Davila DO; Slim Weiss, Signed [facility] 04-23-2024 Note Ms. Gómez had a Edenilson g RADS [address] scan on 12/18/2023. Her primary care provider placed a referral for the recommended 3-month follow-up CT chest. [facility] central scheduling and provider office have made multiple attempts to contact patient to assist with scheduling imaging. Navigator mailed patient lung screening follow-up reminder letter and lung nodule patient information. If patient does not call in to schedule imaging, navigator will plan to send certified letter. [facility] 04-23-2024 Telephone encounter Note Ms. Gómez had a Lung RADS [address] scan on 12/18/2023. Her primary care provider placed a referral for the recommended 3-month follow-up CT chest. [facility] central scheduling and provider office have made multiple attempts to contact patient to assist with scheduling imaging. Navigator mailed patient lung screening follow-up reminder letter and lung nodule patient information. If patient does not call in to schedule imaging, navigator will plan to send certified letter. [facility] 04-17-2024 Telephone encounter Note Recent Visits Date Type Provider Dept 02/22/24 Office Visit Gasper Nelson DO [facility] 07/31/23 Office Visit Gasper Nelson DO [facility] Showing recent visits within past 365 [...] medications from any other provider? No None [facility] 04-17-2024 Miscellaneous Notes Recent Visits Date Type Provider Dept 02/22/24 Office Visit Gasper Nelson DO [facility] 07/31/23 Office Visit Gasper Nelson DO [facility] Showing recent visits within [...] provider? No None documented in this encounter [facility] 04-12-2024 Telephone encounter Note Orders cancelled [facility] 04-12-2024 Miscellaneous Notes Orders cancelled We have been unable to reach your patient to schedule their testing. Test Name: CT lung screening follow up, PFT and Mammo 1st Attempt: 03/30/24 2nd Attempt: 04/11/24 Thanks, [facility] Central Scheduling documented in this encounter [facility] 04-11-2024 Telephone encounter Note We have been unable to reach your patient to schedule their testing. Test Name: CT lung screening follow up, PFT and Mammo 1st Attempt: 03/30/24 2nd Attempt: 04/11/24 Thanks, [facility] Central Scheduling [facility] 04-11-2024 Miscellaneous Notes We have been unable to reach your patient to schedule their testing. Test Name: CT lung screening follow up, PFT and Mammo 1st Attempt: 03/30/24 2nd Attempt: 04/11/24 Thanks, [facility] Central Scheduling documented in this encounter [facility] 02-22-2024 Note Referral / orders pe nded for dx and doctor's signature [facility] 02-22-2024 Telephone encounter Note Referral / orders pended for dx and doctor's signature [facility] 02-22-2024 Miscellaneous Notes Referral / orders pended for dx and doctor's signature documented in this encounter [facility] 02-22-2024 History of Present illness Narrative Images from the original note were not included. [facility] [address] [place] [address] [facility] [address] Visit type: Established Patient Reason for [...] or axillary adenopathy documented in this encounter [facility] 02-09-2024 Telephone encounter Note Pt scheduled with Dr Nelson 02/22/24 [facility] 02-09-2024 Miscellaneous Notes Pt scheduled with Dr Nelson 02/22/24 Left message for patient to return call to the office to get scheduled please schedule patient either February [address] Argentina dawson. Name of caller: [facility] Contact phone number: [phone] Relationship to Patient: Patient Provider: Dr. Nelson Practice: [facility] Chief Complaint/Reason for Call: Pt Pt had to reschedule appointment. Please contact pt if appointment is not soon enough, pt is concerned FYI Best time of day caller can be reached: Any Patient advised that office/PCP has 24-48 business hours to return their call: No documented in this encounter [facility] 02-05-2024 Telephone encounter Note Left message for patient to return call to the office to get scheduled please schedule patient either February [address] Argentina dawson. [facility] 02-05-2024 Miscellaneous Notes Left message for patient to return call to the office to get scheduled please schedule patient either February [address] Argentina dawson. Name of caller: [facility] Contact phone number: [phone] Relationship to Patient: Patient Provider: Dr. Nelson Practice: [facility] Chief Complaint/Reason for Call: Pt Pt had to reschedule appointment. Please contact pt if appointment is not soon enough, pt is concerned FYI Best time of day caller can be reached: Any Patient advised that office/PCP has 24-48 business hours to return their call: No documented in this encounter [facility] 02-05-2024 Telephone encounter Note Name of caller: [facility] Contact phone number: [phone] Relationship to Patient: Patient Provider: Dr. Nelson Practice: [facility] Chief Complaint/Reason for Call: Pt Pt had to reschedule appointment. Please contact pt if appointment is not soon enough, pt is concerned FYI Best time of day caller can be reached: Any Patient advised that office/PCP has 24-48 business hours to return their call: No [facility] 01-02-2024 Telephone encounter Note Pharmacy updated. [facility] 01-02-2024 Miscellaneous Notes Pharmacy updated. Name of caller: [facility] Contact phone number: [phone] Relationship to Patient: patient Provider: Argentina Practice: [facility] Chief Complaint/Reason for Call: Pt called to report that her antibiotic and Prednisone were not sent to [facility] local [facility] as [facility] - they were accidentally sent to [facility] by mistake. Please send to [facility] [address] [facility] in [place] listed in her chart instead. Please call once has been sent over. Best time of day caller can be reached: Any Patient advised that office/PCP has 24-48 business hours to return their call: No documented in this encounter [facility] 01-02-2024 Telephone encounter Note Name of caller: Isa[facility] Contact phone number: [phone] Relationship to Patient: patient Provider: Argentina Practice: [facility] Chief Complaint/Reason for Call: Pt called to report that her antibiotic and Prednisone were not sent to [facility] local [facility] - they were accidentally sent to [facility] by mistake. Please send to [facility] on [address] in [place] listed in her chart instead. Please call once has been sent over. Best time of day caller can be reached: Any Patient advised that office/PCP has 24-48 business hours to return their call: No [facility] 12-22-2023 Telephone encounter Note LM - called to relay message to pt that she can schedule out into February [facility] 12-22-2023 Miscellaneous Notes LM - called to relay message to pt that she can schedule out into February noted Name of caller: Isa[facility] Contact phone number: [phone] (work number) Relationship to Patient: patient Provider: [...] their call: Yes documented in this encounter [facility] 12-22-2023 Telephone encounter Note noted [facility] 12-22-2023 Telephone encounter Note Name of caller: Isauro Contact phone number: [phone] (work number) Relationship to Patient: patient Provider: [...] number above, which is the number for [employer] where she works. Patient advised that office/PCP has 24-48 business hours to return their call: Yes [facility] 12-21-2023 Telephone encounter Note duplicate [facility] 12-21-2023 Miscellaneous Notes duplicate documented in this encounter [facility] 12-21-2023 Telephone encounter Note Medication name: [...] prior to picking up the medication: Yes [facility] 12-21-2023 Miscellaneous Notes Medication name: albuterol [...] the medication: Yes documented in this encounter [facility] 12-18-2023 Telephone encounter Note Recent Visits Date Type Provider Dept 07/31/23 Office Visit Gasper Nelson DO [facility] 01/13/23 Office Visit Gasper Nelson DO [facility] Showing recent visits within past 365 days and meeting all other requirements Future Appointments Date Type Provider Dept 02/05/24 Appointment Gasper Nelson DO [facility] Showing future appointments within [...] Most recent labs completed in chart? N/A [facility] 12-18-2023 Miscellaneous Notes Recent Visits Date Type Provider Dept 07/31/23 Office Visit Gasper Nelson DO [facility] 01/13/23 Office Visit Gasper Nelson DO [facility] Showing recent visits within past 365 days and meeting all other requirements Future Appointments Date Type Provider Dept 02/05/24 Appointment Gasper Nelson DO [facility] Showing future appointments within next 90 [...] in chart? N/A documented in this encounter [facility] 08-01-2023 Telephone encounter Note Orders pended for doctor's signature [facility] 08-01-2023 Miscellaneous Notes Orders pended for doctor's signature ----- Message from Gasper Nelson DO sent at 07/31/2023 4:06 PM EST ----- Schedule LDCT for pt to be done in 11/2023 documented in this encounter [facility] 08-01-2023 Telephone encounter Note ----- Message from Gasper Nelson DO sent at 07/31/2023 4:06 PM EST ----- Schedule LDCT for pt to be done in 11/2023 [facility] 07-31-2023 History of Present illness Narrative Images from the original note were not included. [facility] [address] [facility] [address] Visit type: Established Patient Reason for [...] work a fair number hours at the [employer] in [place] doing various jobs. Review of Systems denies [...] pink without edema documented in this encounter [facility] 07-31-2023 History of Present illness Narrative Images from the original note were not included. [facility] [address] [place] [address] [facility] [address] Visit type: Established Patient Reason for [...] work a fair number hours at the [employer] in [place] doing various jobs. Review of Systems denies [...] pink without edema documented in this encounter [facility] 07-31-2023 Miscellaneous Notes Addended by: ROSALIND QUINTERO on: 12/18/2023 08:32 AM Modules accepted: Orders documented in this encounter [facility] 07-31-2023 Note Addended by: ROSALIND QUINTERO on: 12/18/2023 08:32 AM Modules accepted: Orders [facility] 03-14-2023 Telephone encounter Note Signed Handicap placard signed and mailed to patient per their request. [facility] 03-14-2023 Miscellaneous Notes Signed Handicap plactram signed and mailed to patient per their request. Rx loaded Name of caller: Isa[facility] Contact phone number: [phone] Relationship to Patient: patient Provider: Argentina Practice: [...] their call: Yes documented in this encounter [facility] 03-14-2023 Telephone encounter Note Rx loaded [facility] 03-14-2023 Telephone encounter Note Name of caller: Isauro Contact phone number: [phone] Relationship to Patient: patient Provider: Argentina Practice: [...] business hours to return their call: Yes [facility] 03-02-2023 Telephone encounter Note Orders closed [facility] 03-02-2023 Miscellaneous Notes Orders closed Talked to [...] order. Thank you documented in this encounter [facility] 03-01-2023 Telephone encounter Note Talked to [...] that is stated to get a CT. [facility] 02-28-2023 Telephone encounter Note Placed call to patient to discuss provider questions of: Call the patient and specifically ask her how many cigarettes she smokes on the average per day and how long she has been doing it. Message left on voicemail to return call. [facility] 02-28-2023 Miscellaneous Notes Placed call to [...] order. Thank you documented in this encounter [facility] 02-28-2023 Telephone encounter Note Pt doesn't fit criteria for a CT-Lung screen. Pt needs to have a 20 year smoking history of 1-pack a day or 15 year history with 2-pack a day. Can orders be cancelled? [facility] 02-27-2023 Telephone encounter Note Patient called in and scheduled her CT Lung screening. The diagnosis code of F17.200 failed for Medical Necessity. Please correct diagnosis code on order. Thank you [facility] 02-27-2023 Miscellaneous Notes Patient called in and scheduled her CT Lung screening. The diagnosis code of F17.200 failed for Medical Necessity. Please correct diagnosis code on order. Thank you documented in this encounter [facility] 01-13-2023 Telephone encounter Note Orders pended for doctor's signature [facility] 01-13-2023 Miscellaneous Notes Orders pended for doctor's signature documented in this encounter [facility] 01-13-2023 History of Present illness Narrative Images from the original note were not included. [facility] [address] [place] [id number] Visit type: Established Patient Reason for Visit: [...] hips and knees. documented in this encounter [facility] 11-14-2022 History of Present illness Narrative Images from the original note were not included. 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 documented in this encounter [facility] 11-14-2022 Telephone encounter Note Triage message reviewed with clinical staff. Patient appointment confirmed. Siomara will assess at appointment visit. [facility] 11-14-2022 Miscellaneous Notes Triage message reviewed [...] (e.g., travel history, exposures) no Protocols used: [id number] documented in this encounter [facility] 11-14-2022 Telephone encounter Note S: Patient [...] (e.g., travel history, exposures) no Protocols used: [id number] [facility] 10-20-2022 Telephone encounter Note X-ray faxed to [facility] per patient request. Also called patient and let her know it was faxed. [facility] 10-20-2022 Miscellaneous Notes X-ray faxed to [facility] per patient request. Also called patient and let her know it was faxed. Name of caller: [facility] Contact phone number: [phone] Relationship to Patient: patient Provider: Practice: [facility] Chief Complaint/Reason for Call: Patient calling and states [facility] did not get her orders for the x-ray. Patient requesting it be re sent. Patient did not have a fax number. Best time of day caller can be reached: any Patient advised that office/PCP has 24-48 business hours to return their call: no documented in this encounter [facility] 10-20-2022 Telephone encounter Note Name of caller: [facility] Contact phone number: [phone] Relationship to Patient: patient Provider: Practice: [facility] Chief Complaint/Reason for Call: Patient calling and states [facility] did not get her orders for the x-ray. Patient requesting it be re sent. Patient did not have a fax number. Best time of day caller can be reached: any Patient advised that office/PCP has 24-48 business hours to return their call: no [facility] 10-18-2022 Telephone encounter Note I called this patient regarding her chest x-ray. She states she went to [facility] but they did not have the order. According to the record the order was faxed. Patient will call the hospital and see if now have the order. [facility] 10-18-2022 Miscellaneous Notes I called this patient regarding her chest x-ray. She states she went to [facility] but they did not have the order. According to the record the order was faxed. Patient will call the hospital and see if now have the order. Faxed Name of caller: Shayy Contact phone number: [phone] Relationship to Patient: [facility] Provider: Dr. Davila Practice: [facility] Chief Complaint/Reason for Call: Shayy states the patient is currently at [facility] trying to complete her 10/03/22 [...] their call: No documented in this encounter [facility] 10-17-2022 Telephone encounter Note Faxed [facility] 10-17-2022 Telephone encounter Note Name of caller: Shayy Contact phone number: [phone] Relationship to Patient: [facility] Provider: Dr. Davila Practice: [facility] Chief Complaint/Reason for Call: Shayy states the patient is currently at [facility] trying to complete her 10/03/22 [...] business hours to return their call: No [facility] 10-04-2022 Telephone encounter Note I was [...] the emergency room. She is not interested. [facility] 10-04-2022 Miscellaneous Notes I was called [...] is not interested. documented in this encounter [facility] 10-03-2022 History of Present illness Narrative Images from the original note were not included. [facility] [address] [address] Chief Complaint: Ashley Gómez is an [...] Work Phone: Evaluation noteNo assessment information available [facility] Work Phone: Evaluation note* Diagnosis Chronic obstructive pulmonary disease, unspecified COPD type (HCC)- Primary Hypercholesterolemia Pure hypercholesterolemia Gastroesophageal reflux disease without esophagitis Esophageal reflux Smoker Tobacco use disorder Depression, unspecified depression type [facility] Smoker Tobacco use disorder [facility]* Diagnosis Chronic obstructive pulmonary disease, unspecified COPD type (HCC)- Primary documented in this encounter [facility]* Diagnosis Chronic obstructive pulmonary disease, unspecified COPD type (HCC)- Primary Depression, unspecified depression type Gastroesophageal reflux disease without esophagitis Esophageal reflux Hypercholesterolemia Pure hypercholesterolemia documented in this encounter [facility]* Diagnosis Moderate smoker (20 or less per day)- Primary Tobacco use disorder Smoker Tobacco use disorder documented in this encounter [facility]* Diagnosis Chronic obstructive pulmonary disease, unspecified COPD type (HCC)- Primary Depression, unspecified depression type Gastroesophageal reflux disease without esophagitis Esophageal reflux Hypercholesterolemia Pure hypercholesterolemia documented in this encounter [facility]* Diagnosis Smoker Tobacco use disorder Moderate smoker (20 or less per day) Tobacco use disorder documented in this encounter [facility]* Diagnosis COPD with acute exacerbation (HCC) Lower resp. tract infection Other diseases of respiratory system, not elsewhere classified documented in this encounter [facility]* Diagnosis Chronic obstructive pulmonary disease, unspecified COPD type (HCC)- Primary Abnormal CT scan of lung Hypercholesterolemia Pure hypercholesterolemia Colon cancer screening Special screening for malignant neoplasms, colon Breast cancer screening by mammogram Depression, unspecified depression type Gastroesophageal reflux disease without esophagitis Esophageal reflux Ex-smoker for less than 1 year documented in this encounter [facility]* Diagnosis Abnormal CT scan of lung- Primary Colon cancer screening Special screening for malignant neoplasms, colon Smoker Tobacco use disorder Family history of colon cancer Family history of malignant neoplasm of gastrointestinal tract documented in this encounter [facility]* Diagnosis Abnormal CT scan of lung Smoker Tobacco use disorder documented in this encounter [facility]* Diagnosis Medicare annual wellness visit, subsequent- Primary Cough, unspecified type Chronic obstructive pulmonary disease, unspecified COPD type (HCC) Anxiety Anxiety state, unspecified Depression, unspecified depression type Hypercholesterolemia Pure hypercholesterolemia Mammogram declined Colonoscopy refused documented in this encounter [facility]* Diagnosis COPD with acute exacerbation (CMS/HCC) (HCC)- Primary Lower resp. tract infection Other diseases of respiratory system, not elsewhere classified Smoking Tobacco use disorder documented in this encounter [facility]* Diagnosis Chronic obstructive pulmonary disease with acute exacerbation (HCC)- Primary Influenza Influenza with other respiratory manifestations documented in this encounter [facility]* Diagnosis Routine general medical examination at health care facility- Primary Routine general medical examination at a health care facility Encounter for screening mammogram for malignant neoplasm of breast Hypercholesterolemia Pure hypercholesterolemia Chronic obstructive pulmonary disease with acute exacerbation (HCC) Gastroesophageal reflux disease without esophagitis Esophageal reflux documented in this encounter [facility]* Diagnosis Routine general medical examination at health care facility- Primary Routine general medical examination at a health care facility Encounter for screening mammogram for malignant neoplasm of breast Hypercholesterolemia Pure hypercholesterolemia Chronic obstructive pulmonary disease with acute exacerbation (HCC) Gastroesophageal reflux disease without esophagitis Esophageal reflux Other insomnia documented in this encounter [facility]* Diagnosis Routine general medical examination at health care facility- Primary Routine general medical examination at a health care facility Encounter for screening mammogram for malignant neoplasm of breast Hypercholesterolemia Pure hypercholesterolemia Chronic obstructive pulmonary disease with acute exacerbation (HCC) Gastroesophageal reflux disease without esophagitis Esophageal reflux Chronic obstructive pulmonary disease with acute exacerbation (HCC) documented in this encounter [facility]* Diagnosis Routine general medical examination at health care facility- Primary Routine general medical examination at a health care facility Encounter for screening mammogram for malignant neoplasm of breast Hypercholesterolemia Pure hypercholesterolemia Chronic obstructive pulmonary disease with acute exacerbation (HCC) Gastroesophageal reflux disease without esophagitis Esophageal reflux Other insomnia documented in this encounter [facility]* Diagnosis Routine general medical examination at health care facility- Primary Routine general medical examination at a health care facility Encounter for screening mammogram for malignant neoplasm of breast Hypercholesterolemia Pure hypercholesterolemia Chronic obstructive pulmonary disease with acute exacerbation (HCC) Gastroesophageal reflux disease without esophagitis Esophageal reflux Other insomnia documented in this encounter [facility]* Diagnosis Routine general medical examination at health care facility- Primary Routine general medical examination at a health care facility Encounter for screening mammogram for malignant neoplasm of breast Hypercholesterolemia Pure hypercholesterolemia Chronic obstructive pulmonary disease with acute exacerbation (HCC) Gastroesophageal reflux disease without esophagitis Esophageal reflux Chronic obstructive pulmonary disease with acute exacerbation (HCC) documented in this encounter [facility]* Diagnosis Routine general medical examination at health care facility- Primary Routine general medical examination at a health care facility Encounter for screening mammogram for malignant neoplasm of breast Hypercholesterolemia Pure hypercholesterolemia Chronic obstructive pulmonary disease with acute exacerbation (HCC) Gastroesophageal reflux disease without esophagitis Esophageal reflux Other insomnia [facility]* Imaging (Routine) - Closed Specialty Diagnoses / Procedures Referred By Contac t Referred To Contact Radiology Diagnoses Abnormal CT scan of lung Smoker Procedures CT lung screening follow up low dose ArgentinaGasper, DO [address] [place] [address] Phone: tel: fax: Referral ID Status Reason Start Date Expiration Date Visits Re quested Visits Authorized [id number] Closed 02/22/2024 02/21/2025 1 1 [facility] [...] FoundDocuments on File Type Date 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 ACP-Advance Directive ACP-Power of Process Engineering Technician Advance Directive Response Recorded Date/ Time Advance Directives No May 10:10pm Living Will No May 22, 2014 10:10pm Power of Process Engineering Technician No May 10:10pm Advance Directive Response Recorded Date/ Time Advance Directives No May 9:10pm Living Will No May 22, 2014 9:10pm Power of Process Engineering Technician No May 9:10pm Reason for Referral Specialty Diagnoses / Procedures Referred By Contac t Referred To Contact Radiology Diagnoses Menopause Procedures DEXA Bone Density Axial Skeleton Danish Davila, DO [address] [place] [address] Referral ID Status Reason Start Date Expiration Date Visits Re quested Visits Authorized [id number] Open 06/07/2021 06/07/2022 1 1 Specialty Diagnoses / Procedures Referred By Contac t Referred To Contact Radiology Diagnoses Smoker Procedures CT lung screening low dose Argentina Gasper Serrano, DO [address] [place] [address] Referral ID Status Reason Start Date Expiration Date V isits Requested Visits Authorized [id number] Pending Review 01/13/2023 07/12/2023 1 1 Specialty Diagnoses / Procedures Referred By Contac t Referred To Contact Radiology Diagnoses Smoker Moderate smoker (20 or less per day) Procedures CT lung screening low dose Gasper Nelson, DO [address] [place] [address] Referral ID Status Reason Start Date Expiration Date V isits Requested Visits Authorized [id number] Pending Review 08/01/2023 07/31/2024 1 1 Referral ID Status Reason Start Date Expiration Date Visits Re quested Visits Authorized [id number] Closed 08/01/2023 07/31/2024 1 1 Specialty Diagnoses / Procedures Referred By Contac t Referred To Contact Diagnoses Chronic obstructive pulmonary disease, unspecified COPD type (HCC) Procedures Complete PFT pre and post bronchodilator Gasper Nelson, [address] [place] [address] Referral ID Status Reason Start Date Expiration Date V isits Requested Visits Authorized [id number] Pending Review 02/22/2024 02/16/2025 1 1 Specialty Diagnoses / Procedures Referred By Contac t Referred To Contact Radiology Diagnoses Abnormal CT scan of lung Smoker Procedures CT lung screening follow up low dose Gasper Nelson, DO [address] [place] [address] Referral ID Status Reason Start Date Expiration Date V isits Requested Visits Authorized [id number] Pending Review 02/22/2024 02/21/2025 1 1 Specialty Diagnoses / Procedures Referred By Contac t Referred To Contact Gastroenterology Diagnoses Colon cancer screening Procedures IA OFFICE/OUTPATIENT NEW HIGH MDM 60 MINUTES Gasper Nelson, DO [address] [place] [address] [address] [place] [address] Referral ID Status Reason Start Date Expiration Date Visits Requested Visits Authorized [id number] Pending Review Specialty Services Required 02/22/2024 02/21/2025 1 1 Chief Complaint and Reason for Visit Chief Complaint VOMITING Additional Source Comments INFORMATION SOURCE (unrecogn ized section and content) DATE CREATED AUTHOR 10/12/2021 [facility] DATE CREATED AUTHOR AUTHOR'S ORGANIZ ATION 01/19/2022 [facility] DATE CREATED AUTHOR AUTHOR'S ORGANIZ ATION 05/12/2024 [facility] DATE CREATED AUTHOR AUTHOR'S ORGANIZ ATION 02/12/2025 [facility] Care Teams (unrecognized sec tion and content) Used Car Lot Attendant Relationship Specialty Start Date End Date Danish Davila DO [address] [place], [place] [id number] PCP - General Family Medicine 03/24/20 Team Status: Active Member Role Status Dates Dr. Aaron Zepeda MD Family Provider Active Dr. Danish Davila DO Primary Care Provider Active Team Status: Inactive Member Role Status Dates Dr. Danish Davila DO Primary Care Provider, [facility] Provider Active Used Car Lot Attendant Relationship Specialty Start Date End Date Danish Davila DO [address] [place], [place] [id number] PCP - General 03/24/20 Used Car Lot Attendant Relationship Specialty Start Date End Date Gasper Nelson DO [address] [place], [place] [id number] PCP - General Family Medicine 01/13/23 Used Car Lot Attendant Relationship Specialty Start Date End Date Gasper Nelson, DO [address] [place] [address] PCP - General Family Medicine 01/13/23 Used Car Lot Attendant Relationship Specialty Start Date End Date Gasper Nelson DO [address] [place], [place] [id number] PCP - General Family Medicine 01/13/23 Used Car Lot Attendant Relationship Specialty Start Date End Date Gasper Nelson, DO [address] [place] [address] PCP - General Family Medicine 01/13/23 Used Car Lot Attendant Relationship Specialty Start Date End Date Gasper Nelson DO [address], [place] [id number] PCP - General Family Medicine 01/13/23 Used Car Lot Attendant Relationship Specialty Start Date End Date Gasper Nelson, DO [address], [place] [id number] PCP - General Family Medicine 01/13/23 Used Car Lot Attendant Relationship Specialty Start Date End Date Gasper Nelson, DO [address] [place] [phone] PCP - General Family Medicine 01/13/23 Used Car Lot Attendant Relationship Specialty Start Date End Date Gasper Nelson, DO [address] [place] [phone] PCP - General Family Medicine 01/13/23 Used Car Lot Attendant Relationship Specialty Start Date End Date Gasper Nelson, DO [address] [place] [phone] PCP - General Family Medicine 01/13/23 Used Car Lot Attendant Relationship Specialty Start Date End Date Gasper Nelson, DO [address] [place] [phone] PCP - General Family Medicine 01/13/23 Used Car Lot Attendant Relationship Specialty Start Date End Date Gasper Nelson, DO [address] [place] [phone] PCP - General Family Medicine 01/13/23 Used Car Lot Attendant Relationship Specialty Start Date End Date PuneetGasper vargas, DO [address] [place] [address] PCP - General Family Medicine 01/13/23 Used Car Lot Attendant Relationship Specialty Start Date End Date ArgentinaGasper, DO [address] [place] [phone] PCP - General Family Medicine 01/13/23 Used Car Lot Attendant Relationship Specialty Start Date End Date PuneetdorinakiGasper, DO [address] [place] [phone] PCP - General Family Medicine 01/13/23 Used Car Lot Attendant Relationship Specialty Start Date End Date ArgentinaGasper, DO [address] [place] [phone] PCP - General Family Medicine 01/13/23 Used Car Lot Attendant Relationship Specialty Start Date End Date ArgentinaGasper, DO [address] [place] [phone] PCP - General Family Medicine 01/13/23 Used Car Lot Attendant Relationship Specialty Start Date End Date ArgentinaGasper, DO [address] [place] [phone] PCP - General Family Medicine 01/13/23 Used Car Lot Attendant Relationship Specialty Start Date End Date ArgentinaGasper, DO [address] [place] [address] PCP - General Family Medicine 01/13/23 Used Car Lot Attendant Relationship Specialty Start Date End Date Argentina Gasper Serrano, DO [address] [place] [phone] PCP - General Family Medicine 01/13/23 Used Car Lot Attendant Relationship Specialty Start Date End Date Argentina Gasper Serrano, DO [address] [place] [phone] PCP - General Family Medicine 01/13/23 Used Car Lot Attendant Relationship Specialty Start Date End Date Gasper Nelson Maggie, DO [address] [place] [phone] PCP - General Family Medicine 01/13/23 Used Car Lot Attendant Relationship Specialty Start Date End Date Danish Davila DO [address] [place] [address] PCP - General 03/24/20 Used Car Lot Attendant Relationship Specialty Start Date End Date Danish Davila DO [address] [place] [address] PCP - General 03/24/20 Used Car Lot Attendant Relationship Specialty Start Date End Date Danish Davila DO [address] [place] [address] PCP - General 03/24/20 Used Car Lot Attendant Relationship Specialty Start Date End Date Danish Davila, DO [address] [place] [address] PCP - General 03/24/20 Used Car Lot Attendant Relationship Specialty Start Date End Date Gasper Nelson Maggie, DO [address] [place] [phone] PCP - General Family Medicine 01/13/23 Used Car Lot Attendant Relationship Specialty Start Date End Date PuneetdorinakiGasper, DO [address] [place] [phone] PCP - General Family Medicine 01/13/23 Used Car Lot Attendant Relationship Specialty Start Date End Date ArgentinaGasper, DO [address] [place] [phone] PCP - General Family Medicine 01/13/23 Used Car Lot Attendant Relationship Specialty Start Date End Date PuneetdorinakiGasper, DO [address] [place] [address] PCP - General Family Medicine 01/13/23 Used Car Lot Attendant Relationship Specialty Start Date End Date Argentina Gasper Serrano, DO [address] [place] [phone] PCP - General Family Medicine 01/13/23 Used Car Lot Attendant Relationship Specialty Start Date End Date ArgentinaGasper, DO [address] [place] [phone] PCP - General Family Medicine 01/13/23 Goals [...] Maggie, DO [address] [place] [address] Referral ID Status Reason Start Date Expiration Date Visits Re quested Visits Authorized [id number] Closed 08/01/2023 07/31/2024 1 1 Reason Onset [...] BE BASED ON THE PRIMARY CLINICAL RECORDS. [facility] provides no warranty or guarantee of the accuracy or completeness of information in this document.
[2025-02-15] MEDS: Azithromycin 250 MG Tablet 500 MG PO (12:57)
--- NOTE | 2025-02-15 14:59 | PCM.HP.STD ---
HPI - General General Date of Admission: 02/15/25 Date of Service: 02/15/25 Chief Complaint: Shortness of breath HPI Narrative JACQUELINE GÓMEZ, is a 69 F who presents to the emergency room at [facility] with complaints of shortness of breath over the last 2 days. Patient denies any chills, she denies any productive sputum, she does say she was running a fever of 101 at home.. Patient wears no oxygen at home, she was given a prescription from her PCP for prednisone a few days ago which she started. Examination the patient revealed her to be afebrile, she had diffuse expiratory wheezes scattered over both lungs, patient's pulse ox on room air was 85%. Patient required 2 L of oxygen to maintain her pulse ox above 90%. Labs were remarkable for a potassium of 3.2, CC was unremarkable. chest x-ray was obtained which showed no acute infiltrates patient will be admitted to [place] [address] for exacerbation of COPD with hypoxia, she will be given aerosol treatments IV Solu-Medrol, pulse ox will be monitored. [facility] Medical History Wears dentures Wears glasses Post-menopausal Depression Arthritis Anemia Gastric reflux Former smoker Hoarseness History of stress test Osteopenia COPD (chronic obstructive pulmonary disease) Family hx of colon cancer Nausea & vomiting Diarrhea Pathologic pelvic fracture Chronic anemia GERD (gastroesophageal reflux disease) Depression Home Medications ?Medication ?Instructions ?Recorded ?Last Taken ?Type esomeprazole magnesium 20 mg 40 mg PO DAILY 08/08/13 02/15/25 History capsule,delayed release (Nexium) simvastatin 80 mg tablet 40 mg PO QHS 03/20/24 02/13/25 History venlafaxine 150 mg 150 mg PO DAILY 03/20/24 02/15/25 History capsule,extended release 24 hr albuterol sulfate 90 mcg/actuation 2 inh inhalation Q4H PRN shortness 02/15/25 Unknown History breath activated powder inhaler of breath or wheezing trazodone 150 mg tablet 150 mg PO QHS 02/15/25 Unknown History Allergy/AdvReac Type Severity Reaction Status Date / Time Sulfa (Sulfonamide Allergy Hives Verified 02/15/25 08:34 Antibiotics) Family History Mother Pancreatic cancer Father COPD (chronic obstructive pulmonary disease) Brother Colon cancer Heart disease Sister Stomach cancer Brother Leukemia Surgical History History of tonsillectomy and adenoidectomy Hx of cholecystectomy Hx of appendectomy Hx of colonoscopy Social History household members: none current occupational status: employed current occupation: [employer] Smoking Status: Current every day smoker tobacco type: cigarettes Tobacco: How many years used: 4 alcohol intake: former substance use type: does not use ROS Constitutional Constitutional: Reports fatigue and fever(s); Denies anorexia, change in weight, chills, night sweats or weakness Eyes Eyes: Denies blurry vision, change in eye color, change in vision, discharge from eye(s) or eye pain Cardiovascular Cardiovascular: Reports dyspnea on exertion; Denies chest pain, claudication, edema or palpitations Respiratory/Chest Respiratory/Chest: Reports cough, dyspnea, shortness of breath at rest and shortness of breath with exertion; Denies hemoptysis Gastrointestinal Gastrointestinal: Denies abdominal pain, constipation, diarrhea, hematemesis, hematochezia, melena, nausea or vomiting Genitourinary Genitourinary: Denies dysuria, hematuria, urinary frequency, urinary hesitancy, urinary incontinence or urinary urgency Musculoskeletal Musculoskeletal: Denies back pain, joint pain, joint stiffness, joint swelling, myalgias or neck pain Neurologic Neurologic: Denies abnormal gait, abnormal speech, dizziness, focal weakness, headache(s), loss of vision, numbness, other visual disturbances, paresthesias, syncope or tingling Psychiatric Psychiatric: Denies anxiety, cognitive impairment, depression, irritability, mood swings or suicidal ideation Endocrine Endocrinology: Denies change in body appearance, cold intolerance, excessive sweating, heat intolerance, polydipsia or polyuria Hematologic/Lymphatic Hematologic/Lymphatic: Denies none, anemia, easy bleeding, easy bruising or lymphadenopathy Allergic/Immunologic Allergic/Immunologic: Denies rhinitis, urticaria, eczemia or asthma Vital Signs Vital Signs Vital Signs: 02/15/25 08:30 02/15/25 08:36 02/15/25 09:12 Temperature 98.4 F Temperature Source Oral Pulse Rate 80 Respiratory Rate 24 H Respiratory Pattern Tachypnea Blood Pressure 143/74 H Blood Pressure Mean 97 Blood Pressure Source Blood Pressure Position Blood Pressure Location Pulse Ox 91 90 Oxygen Delivery Method Room Air Room Air Room Air Oxygen Flow Rate (L/min) 02/15/25 09:12 02/15/25 09:36 02/15/25 09:36 Temperature Temperature Source Pulse Rate 75 80 Respiratory Rate 16 18 Respiratory Pattern Blood Pressure Blood Pressure Mean Blood Pressure Source Blood Pressure Position Blood Pressure Location Pulse Ox 85 Oxygen Delivery Method Room Air Oxygen Flow Rate (L/min) 02/15/25 10:30 02/15/25 10:47 02/15/25 13:02 Temperature 98 F 97.7 F L Temperature Source Oral Pulse Rate 86 87 84 Respiratory Rate 19 H 19 H 18 Respiratory Pattern Blood Pressure 132/69 H 132/68 H 143/53 H Blood Pressure Mean 90 89 83 Blood Pressure Source Monitor Blood Pressure Position Semi-Fowlers Blood Pressure Location Left Arm Pulse Ox 91 91 92 Oxygen Delivery Method Nasal Cannula Nasal Cannula Oxygen Flow Rate (L/min) 2 2 02/15/25 13:30 Temperature Temperature Source Pulse Rate Respiratory Rate Respiratory Pattern Blood Pressure Blood Pressure Mean Blood Pressure Source Blood Pressure Position Blood Pressure Location Pulse Ox 91 Oxygen Delivery Method Nasal Cannula Oxygen Flow Rate (L/min) 2 Weight Weight: 52.1 kg Body Mass Index (BMI) 19.7 Physical Exam Const alert, oriented x3, no apparent distress and average body habitus General Appearance: cooperative, well kempt and well developed Orientation / Consciousness: awake, oriented to person, oriented to place and oriented to time HEENT normocephalic, head/scalp atraumatic, hearing grossly normal bilaterally and moist oral mucous membranes Eyes PERRL, EOMs intact bilaterally and conjunctivae normal Neck supple, no JVD, thyroid normal and no carotid bruits General: trachea midline Resp normal respiratory effort, no retractions and no use of accessory muscles Resp Narrative: Expiratory wheezes were noted scattered over both lungs worse on the left Auscultation: wheezes expiratory wheezes and throughout; Negative for rales or rhonchi Cardio regular rate, regular rhythm, S1 normal heart sound, S2 normal heart sound, no murmurs, no rub and no gallops GI normal to inspection, nondistended, normoactive bowel sounds, soft to palpation, non-tender and non-distended Extremity no clubbing, cyanosis or edema Skin no rashes or lesions noted General Skin Exam: no breakdown Neuro oriented x3, CN's II-XII intact bilaterally, moves all extremities, no focal motor deficits and no sensory deficits noted Sensorium / Orientation: awake and alert Speech: speech normal Psych affect normal Results Lab / Micro Data 02/15/25 09:19 02/15/25 09:19 Labs: Laboratory Results - last 24 hr 02/15/25 09:19: WBC 9.4, RBC 4.55, Hgb 13.6, Hct 41.5, MCV 91.2, MCH 29.9, MCHC 32.8, RDW Std Deviation 44.6 H, RDW Coeff of Tr 13.2, Plt Count 263, MPV 9.7, Immature Gran % (Auto) 0.200, Neut % (Auto) 77.0 H, Lymph % (Auto) 19.2, Pitkin % (Auto) 1.9, Eos % (Auto) 0.7, Baso % (Auto) 1.0, Absolute Neuts (auto) 7.2, Absolute Lymphs (auto) 1.81, Nucleated RBC % 0, Sodium 140, Potassium 3.2 L, Chloride 101, Carbon Dioxide 26.3, Anion Gap 13, BUN 17, Creatinine 0.75, Estim Creat Clear Calc 53.51, Est GFR (MDRD) Non-Af 86, BUN/Creatinine Ratio 22.4 H, Glucose 136 H, Calcium 9.8 Imaging Radiology Impression Chest X-Ray 02/15/25 09:25 IMPRESSION: No acute process Reading [facility] Assessment & Plan Assessment/Plan (1) COPD exacerbation: PLAN: Plan 1. Exacerbation of COPD-patient will be admitted to [place] [address] and given aerosol treatments and IV Solu-Medrol #2 hypoxia secondary to #1-patient's pulse ox will be monitored, she currently requires 2 L of oxygen via nasal cannula #3 hypokalemia-patient will be given potassium replacement, BMP will be rechecked tomorrow #4 hyperlipidemia-patient is on simvastatin #5 chronic depression-patient is on Effexor Total clinical time spent by myself addressing the patient's medical issues, reviewing all of her data, and collaborating with patient's care team: 55 minutes Charges/Coding Visit Charges Inpatient E&M: 97929 Init Hosp L2
[2025-02-15] MEDS: Methylprednisolone Sod Succ 40 MG/ML VIAL 20 MG IV ×2 (15:38→20:29)
[2025-02-15] MEDS: Atorvastatin Calcium 20 MG Tablet PO (20:28)
[2025-02-15] MEDS: traZODone 50 MG Tablet 150 MG PO (20:28)
[2025-02-15] MEDS: 0.9% Saline Lock 10 ML Syringe IV (20:29)
[2025-02-16] VITALS (8 sets, daily range): BP systolic 105–143; BP diastolic 52–70; PULSE 73–89; RESP 15–18; TEMP 36.6–37.1; O2SAT 92–96
[2025-02-16] MEDS: Ipratropium/Albuterol Sulfate 3 ML AMPUL.NEB INHALATION ×4 (01:40→20:10)
[2025-02-16] MEDS: Methylprednisolone Sod Succ 40 MG/ML VIAL 20 MG IV ×3 (05:23→20:53)
[2025-02-16] MEDS: 0.9% Saline Lock 10 ML Syringe IV ×3 (05:24→20:53)
[2025-02-16] MEDS: Pantoprazole Sodium 40 MG Tablet PO (06:49)
[2025-02-16] MEDS: Venlafaxine XR 150 MG Capsule PO (06:50)
[2025-02-16 07:34] LABS: Anion Gap 12 (5-15); BUN 19 mg/dL (4-19); BUN/Creat Ratio 28.6 RATIO (10-20); Calcium,Total 10.4 mg/dL (7.6-11.0); Carbon Dioxide 24.1 mmol/L (21.0-32.0); Chloride 106 mmol/L (98-108); Creatinine, Serum 0.68 mg/dL (0.70-1.20); EST Glomerular Filtration Rate 94 (>60); Estimated Creatinine Clearance 53.82 ml/min (50-250); Glucose 110 mg/dL (70-99); Potassium 5.5 mmol/L (3.3-5.1); Sodium Level 142 mmol/L (133-145)
[2025-02-16] MEDS: Enoxaparin 40 MG/0.4 ML Syringe SC (08:11)
[2025-02-16] MEDS: Azithromycin 250 MG Tablet 500 MG PO (08:11)
--- NOTE | 2025-02-16 11:17 | PCM.PN.HOSP ---
Reason for Visit Reason for Visit: Diagnoses Chronic obstructive pulmonary disease with (acute) exacerbation (02/15/25) Subjective Subjective Patient was seen and examined today, when I saw her earlier this morning she was on nasal cannula O2, she has since been placed on room air. Patient has no complaints at the time my examination Objective Data Objective Data Vital Signs: Vital Signs Temp Pulse Resp BP Pulse Ox O2 Del Method O2 Flow Rate 98.8 F 80 16 105/52 L 93 Room Air 2 02/16/25 08:05 02/16/25 08:05 02/16/25 08:05 02/16/25 08:05 02/16/25 08:05 02/16/25 08:05 02/16/25 07:53 Oxygen Flow Rate (L/min) 2 Oxygen Delivery Method Room Air Weight: 52.1 kg Body Mass Index (BMI) 19.7 Intake & Output: Intake and Output for Last 24 Hours 02/14/25 02/15/25 02/16/25 23:59 23:59 23:59 Intake Total 1026 / 1026 Balance 1026 / 1026 Lab / Micro Data 02/15/25 09:19 02/16/25 05:21 Labs: Laboratory Results - last 24 hr 02/16/25 05:21: Sodium 142, Potassium 5.5 H, Chloride 106, Carbon Dioxide 24.1, Anion Gap 12, BUN 19, Creatinine 0.68 L, Estim Creat Clear Calc 53.82, Est GFR (MDRD) Non-Af 94, BUN/Creatinine Ratio 28.6 H, Glucose 110 H, Calcium 10.4 Physical Exam Const alert, oriented x3 and no apparent distress General Appearance: cooperative, well kempt and well developed Orientation / Consciousness: awake, oriented to person, oriented to place and oriented to time HEENT normocephalic, head/scalp atraumatic and moist oral mucous membranes Eyes PERRL, EOMs intact bilaterally and conjunctivae normal Neck supple, no JVD, thyroid normal and no carotid bruits General: trachea midline Resp normal respiratory effort, no retractions and no use of accessory muscles Resp Narrative: Faint expiratory wheezes are scattered bilaterally Auscultation: wheezes scattered wheezes; Negative for rales or rhonchi Cardio regular rate, regular rhythm, S1 normal heart sound, S2 normal heart sound, no murmurs, no rub and no gallops GI normal to inspection, nondistended, normoactive bowel sounds, soft to palpation, non-tender and non-distended Extremity no clubbing, cyanosis or edema Skin no rashes or lesions noted General Skin Exam: no breakdown Neuro oriented x3, CN's II-XII intact bilaterally, moves all extremities, no focal motor deficits and no sensory deficits noted Sensorium / Orientation: awake and alert Speech: speech normal Psych affect normal Assessment & Plan Assessment/Plan (1) COPD exacerbation: PLAN: Plan 1. Exacerbation of COPD-patient remains on IV Solu-Medrol and aerosol treatments #2 hypoxia secondary to #1-patient's pulse ox will be monitored, oxygen will be weaned if possible #3 hypokalemia-corrected, patient's potassium is slightly high today at 5.5, BMP will be rechecked tomorrow #4 hyperlipidemia-patient is on simvastatin #5 chronic depression-patient is on Effexor Total clinical time spent by myself addressing the patient's medical issues, reviewing all of her data, and collaborating with patient's care team: 35 minutes Charges/Coding Visit Charges Inpatient E&M: 90974 Subs Hosp L2
[2025-02-16] MEDS: Atorvastatin Calcium 20 MG Tablet PO (20:52)
[2025-02-16] MEDS: traZODone 50 MG Tablet 150 MG PO (20:52)
[2025-02-17 01:10] VITALS: PULSE 78; RESP 14
[2025-02-17] MEDS: Ipratropium/Albuterol Sulfate 3 ML AMPUL.NEB INHALATION ×2 (01:10→07:09)
[2025-02-17 03:52] VITALS: BP 142/78; PULSE 86; RESP 15; TEMP 36.7; O2SAT 97
[2025-02-17 04:32] VITALS: RESP 15
[2025-02-17] MEDS: Methylprednisolone Sod Succ 40 MG/ML VIAL 20 MG IV (05:22)
[2025-02-17 06:31] LABS: Anion Gap 12 (5-15); BUN 23 mg/dL (4-19); BUN/Creat Ratio 34.6 RATIO (10-20); Calcium,Total 9.9 mg/dL (7.6-11.0); Carbon Dioxide 25.7 mmol/L (21.0-32.0); Chloride 103 mmol/L (98-108); Creatinine, Serum 0.68 mg/dL (0.70-1.20); EST Glomerular Filtration Rate 94 (>60); Estimated Creatinine Clearance 53.82 ml/min (50-250); Glucose 102 mg/dL (70-99); Potassium 4.4 mmol/L (3.3-5.1); Sodium Level 140 mmol/L (133-145)
[2025-02-17 07:10] VITALS: PULSE 83; RESP 16
[2025-02-17 08:14] VITALS: BP 131/54; PULSE 76; RESP 18; TEMP 36.8; O2SAT 92
[2025-02-17] MEDS: Pantoprazole Sodium 40 MG Tablet PO (08:19)
[2025-02-17] MEDS: Azithromycin 250 MG Tablet 500 MG PO (08:19)
[2025-02-17] MEDS: Venlafaxine XR 150 MG Capsule PO (08:19)
[2025-02-17] MEDS: Enoxaparin 40 MG/0.4 ML Syringe SC (08:19)
[2025-02-17 08:24] VITALS: O2SAT 89; O2SAT 92
--- NOTE | 2025-02-17 10:52 | DCINST_ITS ---
Discharge Instructions Diet Discharge Diet: No restrictions DC O2, CPAP, BIPAP needs Home O2 Discharge instructions: No Dressing / Incision Discharge Activity: Return to Normal Activity Weight Bearing Status: Weight bearing as tolerated Follow Up Care Test Results: Test results from this visit will be discussed in further detail at your follow- up appointment, if applicable. Discharge Plan Admission Admit Date/Time: 02/15/25 11:21 Primary Reason for Your Visit: exacerbation of COPD Attending Provider: Bunny Avilez Primary Care Provider: Danish Davila Instructions Additional Instructions / Restrictions: advise you to cut down or quit smoking Discharge Orders/Prescriptions Prescriptions: New trazodone 50 mg Tablet 150 mg PO QHS Qty: 15 0RF prednisone 20 mg tablet 20 mg PO BID Qty: 10 0RF Rx Instructions: one twice a day for three days, then one daily until gone Continued simvastatin 80 mg tablet 40 mg PO QHS Patient Comments: PT TAKING 40 MG, BREAKS PILL IN HALF venlafaxine 150 mg capsule,extended release 24hr 150 mg PO DAILY esomeprazole magnesium [Nexium] 20 MG capsule 40 mg PO DAILY Patient Comments: acid reflux albuterol sulfate 90 mcg/actuation aerosol powdr breath activated 2 inh inhalation Q4H PRN (Reason: shortness of breath or wheezing) Discontinued trazodone 150 mg tablet 150 mg PO QHS Patient Comments: PT IS OUT, BUT SHE DOES TAKE. Referrals / Follow Up: Danish Davlia DO [Primary Care Provider] - (at next office visit) Disposition Disposition (needs filled in before D/C Order can be placed): Home, Self Care
--- NOTE | 2025-02-17 10:59 | CASEMGMT ---
Addendum entered by Emilie Jackson 02/17/25 11:35: [id number]- Received tc from [facility], they are requesting pt be at main entrance in 15 minutes. Updated pt nurse. Pharmacy is bringing meds to the room. Original Note: RN CM into pt room, pt just coming back from the bathroom. Pt is aware that she does not qualify for home oxygen. Pt denies any homegoing needs except for transportation home. Pt would like to utilize [facility]. TC to [facility], spoke with Carlos, they can take pt home but he will call back with time.
--- NOTE | 2025-02-17 10:59 | PCM.DC.SUM ---
Providers Date of Admission: 02/15/25 Date of Discharge: 02/17/25 Primary Care Physician: Dr. Danish Davila DO Reason For Visit: EXACERBATION OF COPD, HYPOXIA Diagnosis Discharge Diagnosis (1) COPD exacerbation: Status: Chronic Code(s): J44.1 - Chronic obstructive pulmonary disease with (acute) exacerbation Plan 1. Exacerbation of COPD-patient remains on IV Solu-Medrol and aerosol treatments #2 hypoxia secondary to #1-patient's pulse ox will be monitored, oxygen will be weaned if possible #3 hypokalemia-corrected, patient's potassium is slightly high today at 5.5, BMP will be rechecked tomorrow #4 hyperlipidemia-patient is on simvastatin #5 chronic depression-patient is on Effexor Total clinical time spent by myself addressing the patient's medical issues, reviewing all of her data, and collaborating with patient's care team: 35 minutes Medications at Discharge Home Medications esomeprazole magnesium 20 mg capsule,delayed release (Nexium) 40 mg PO DAILY 08/08/13 simvastatin 80 mg tablet 40 mg PO QHS 03/20/24 venlafaxine 150 mg capsule,extended release 24 hr 150 mg PO DAILY 03/20/24 albuterol sulfate 90 mcg/actuation breath activated powder inhaler 2 inh inhalation Q4H PRN shortness of breath or wheezing 02/15/25 prednisone 20 mg tablet 20 mg PO BID #10 tabs 02/17/25 trazodone 50 mg tablet 150 mg (3 x 50 mg) PO QHS #15 tabs 02/17/25 Hospital Course Operations None Procedures None Summary of Care Provided Minutes Spent on Discharge: 32 Hospital Course: This 69-year-old white female was seen in the emergency room at [facility] with complaints of shortness of breath for 48 hours. Patient denied any productive sputum, patient stated that she was febrile at home-patient had been given a prescription for prednisone a few days ago from her PCP which she had started. Examination in the ER revealed the patient had diffuse expiratory wheezes bilaterally, patient's pulse ox on room air was 85% and the patient required 2 L to maintain her pulse ox above 90%. Labs are remarkable for potassium of 3.2, chest x-ray showed no acute process. Patient was admitted to [place] [address] for exacerbation of COPD and treated with aerosol treatments and IV corticosteroids, patient's respiratory status improved during her hospitalization. On 02/17/2025, patient was seen and examined: On examination she appeared in good health and spirits, she does not appear to be in any distress. Vital signs as documented. Skin warm and dry and without overt rashes. Neck without JVD, thyroid appears normal, trachea is midline, neck is supple. Lungs clear, normal air movement was noted. Heart exam notable for regular rhythm, normal sounds and absence of murmurs, rubs or gallops. Abdomen unremarkable and without evidence of organomegaly, masses, or abdominal aortic enlargement, bowel sounds are present in all 4 quadrants, no abdominal tenderness was noted. Extremities nonedematous, no cyanosis was noted, no clubbing was noted. Neuro: Cranial nerves II through XII are grossly intact, no focal motor deficits were noted, sensation to light touch and pinprick is intact, motor exam 5/5 throughout. Psych: Patient is alert and oriented x3, she does not appear anxious or depressed, she does not appear agitated. Patient appears stable for discharge home on 02/17/2025. Weight / BMI Weight Weight: 52.1 kg Body Mass Index (BMI) 19.7 ABG / Lab / Microbiology Data 02/15/25 09:19 02/17/25 05:30 Laboratory: Laboratory Results - last 24 hr 02/17/25 05:30: Sodium 140, Potassium 4.4, Chloride 103, Carbon Dioxide 25.7, Anion Gap 12, BUN 23 H, Creatinine 0.68 L, Estim Creat Clear Calc 53.82, Est GFR (MDRD) Non-Af 94, BUN/Creatinine Ratio 34.6 H, Glucose 102 H, Calcium 9.9 D/C Instructions Discharge Diet: No restrictions Weight Bearing Status: Weight bearing as tolerated DC O2, CPAP, BIPAP Needs Home O2 Discharge instructions: No Meaningful Use Info Meaningful Use Meaningful Use Diagnoses (Choose all that apply): None applicable Ischemic Stroke Statin Dosing Therapy Reference: STATIN DOSE THERAPY REFERENCE: * Patients > 75 years receive moderate or high dose statin therapy. * Patients 75 years or YOUNGER should receive HIGH intensity statin dose unless contraindicated. You will be required to document reason for non-treatment if statin daily dose does not meet guidelines. HIGH DOSE STATIN THERAPY DAILY Atorvastatin > than or = to 40 mg Rosuvastatin > than or = to 20 mg Amlodipine + Atorvastatin > than or = to 2.5/40 mg Ezetimibe + Simvastatin 10/80 mg Simvastatin 80mg Discharge Plan Admission Admit Date/Time: 02/15/25 11:21 Primary Reason for Your Visit: exacerbation of COPD Attending Provider: Bunny Avilez Primary Care Provider: Danish Davila Instructions Additional Instructions / Restrictions: advise you to cut down or quit smoking Discharge Orders/Prescriptions Prescriptions: New trazodone 50 mg Tablet 150 mg PO QHS Qty: 15 0RF prednisone 20 mg tablet 20 mg PO BID Qty: 10 0RF Rx Instructions: one twice a day for three days, then one daily until gone Continued simvastatin 80 mg tablet 40 mg PO QHS Patient Comments: PT TAKING 40 MG, BREAKS PILL IN HALF venlafaxine 150 mg capsule,extended release 24hr 150 mg PO DAILY esomeprazole magnesium [Nexium] 20 MG capsule 40 mg PO DAILY Patient Comments: acid reflux albuterol sulfate 90 mcg/actuation aerosol powdr breath activated 2 inh inhalation Q4H PRN (Reason: shortness of breath or wheezing) Discontinued trazodone 150 mg tablet 150 mg PO QHS Patient Comments: PT IS OUT, BUT SHE DOES TAKE. Referrals / Follow Up: Danish Davila DO [Primary Care Provider] - (at next office visit) Disposition Disposition (needs filled in before D/C Order can be placed): Home, Self Care Charges/Coding Visit Charges Inpatient E&M: 43950 Disch Hosp >30min
== END 2025-02-17 11:46 | disposition home or self-care (01) | DRG 192 ==
LOC: ED 11:11 → MS3 11:30
PROVIDERS: Admitting Provider Internal Medicine; Emergency Provider Emergency Medicine; PCP Family Medicine; Visit Provider Internal Medicine
DX: J44.1 Chronic obstructive pulmonary disease with (acute) exacerbation (principal); E78.5 Hyperlipidemia, unspecified; F32.A Depression, unspecified; F17.210 Nicotine dependence, cigarettes, uncomplicated; E87.6 Hypokalemia; Z79.899 Other long term (current) drug therapy
CPT/HCPCS: 36415; 71045; 80048; 85025; 93005; 94640; 99285; A4216

== ENCOUNTER 2025-03-02 23:28 | Inpatient (IN) | payer MEDICARE, SELFPAY ==
[2025-03-02 23:34] VITALS: BP 135/87; PULSE 95; RESP 36; TEMP 36.1; O2SAT 87; BMI 18.9
--- NOTE | 2025-03-02 23:53 | EKG12_ITS ---
Test Reason : CP Blood Pressure : */* mmHG Vent. Rate : 84 BPM Atrial Rate : 84 BPM P-R Int : 154 ms QRS Dur : 60 ms QT Int : 390 ms P-R-T Axes : 81 25 65 degrees QTcB Int : 460 ms Normal sinus rhythm Right atrial enlargement Nonspecific ST abnormality Abnormal ECG Confirmed by MURTAZA CHISHOLM, NIKI ([id number]), web content editor OSAWLD ROSA ([id number]) on 03/04/2025 6:37:00 AM Referred By: KEVIN Confirmed By: NIIK HAUSER MD
--- NOTE | 2025-03-02 23:54 | EX.ED.DYSGE1 ---
HPI History of Present Illness Chief Complaint: Chest Pain Detail of Chief Complaint: Chest pain and not feeling well Informant: patient Narrative Narrative: Patient presents to the emergency department via EMS with multiple complaints. She states that she was recently in [place] 2 days ago when she started getting sick with vomiting and was admitted to the hospital there. Apparently she signed out AGAINST MEDICAL ADVICE because she wanted to come up here. Patient states that she was vomiting blood and they were going to do a scope at some point. She complains of some chest discomfort this evening that is now resolved. She complains of shortness of breath. She has history of COPD and does not normally wear home O2. She denies any diarrhea. [facility] Medical History Hypokalemia Smoker Hypoxia COPD exacerbation Wears dentures Wears glasses Post-menopausal Depression Arthritis Anemia Gastric reflux Former smoker Hoarseness History of stress test Osteopenia COPD (chronic obstructive pulmonary disease) Family hx of colon cancer Nausea & vomiting Diarrhea Pathologic pelvic fracture Chronic anemia GERD (gastroesophageal reflux disease) Depression Home Medications ?Medication ?Instructions ?Recorded ?Last Taken ?Type esomeprazole magnesium 20 mg 40 mg PO DAILY 08/08/13 02/15/25 History capsule,delayed release (Nexium) simvastatin 80 mg tablet 40 mg PO QHS 03/20/24 02/13/25 History venlafaxine 150 mg 150 mg PO DAILY 03/20/24 02/15/25 History capsule,extended release 24 hr albuterol sulfate 90 mcg/actuation 2 inh inhalation Q4H PRN shortness 02/15/25 Unknown History breath activated powder inhaler of breath or wheezing prednisone 20 mg tablet 20 mg PO BID #10 tabs 02/17/25 Unknown Rx trazodone 50 mg tablet 150 mg (3 x 50 mg) PO QHS #15 tabs 02/17/25 Unknown Rx albuterol sulfate 90 mcg/actuation inhalation 03/03/25 Unknown History aerosol inhaler Allergy/AdvReac Type Severity Reaction Status Date / Time Sulfa (Sulfonamide Allergy Hives Verified 03/02/25 23:34 Antibiotics) Family History Mother Pancreatic cancer Father COPD (chronic obstructive pulmonary disease) Brother Colon cancer Heart disease Sister Stomach cancer Brother Leukemia Surgical History History of tonsillectomy and adenoidectomy Hx of cholecystectomy Hx of appendectomy Hx of colonoscopy Social History household members: none current occupational status: employed current occupation: [employer] Smoking Status: Current every day smoker tobacco type: cigarettes Tobacco: How many years used: 4 alcohol intake: former substance use type: does not use ROS ROS ED Review of Systems ROS Unobtainable: other Constitutional Constitutional ED: Reports lethargy; Denies chills, fever(s), sweats or weight loss Eyes Eyes: Denies blurry vision, change in vision or diplopia ENT ENT ED: Denies rhinorrhea or sore throat Cardiovascular Cardiovascular: Reports chest pain; Denies orthopnea or racing heartbeat Respiratory/Chest Respiratory/Chest: Reports dyspnea and dyspnea on exertion; Denies cough, orthopnea or sputum Gastrointestinal Gastrointestinal: Reports nausea and vomiting; Denies abdominal pain or diarrhea Genitourinary Genitourinary ED: Denies dysuria, hematuria or urinary frequency Musculoskeletal Musculoskeletal: Denies arthralgias, back pain, myalgias or neck pain Integumentary Denies abscess, Abrasions or rash Neurologic Neurologic: Denies headache(s) or weakness Psychiatric Psychiatric: Denies anxiety, depression or suicidal thoughts Endocrine Endocrinology: Denies polydipsia, polyphagia or polyuria Hematologic/Lymphatic Hematologic/Lymphatic: Denies easy bleeding, easy bruising or lymphadenopathy Allergic/Immunologic Allergic/Immunologic ED: Denies mouth swelling, tongue swelling or urticaria EXAM Physical Exam Const Vital Signs: 03/02/25 23:34 03/02/25 23:53 03/03/25 00:28 Temperature 97 F L Temperature Source Temporal Pulse Rate 95 82 Respiratory Rate 36 H 25 H Respiratory Effort Short of Breath Respiratory Pattern Blood Pressure 135/87 H 151/98 H Blood Pressure Mean 103 115 Pulse Ox 87 93 Oxygen Delivery Method Room Air Nasal Cannula Oxygen Flow Rate (L/min) 03/03/25 00:37 03/03/25 01:00 03/03/25 02:00 Temperature Temperature Source Pulse Rate 79 89 86 Respiratory Rate 21 H 25 H 18 Respiratory Effort Respiratory Pattern Tachypnea Blood Pressure 163/97 H 159/80 H Blood Pressure Mean 119 106 Pulse Ox 95 92 Oxygen Delivery Method Nasal Cannula Nasal Cannula Oxygen Flow Rate (L/min) 2 2.5 03/03/25 03:00 Temperature Temperature Source Pulse Rate 91 Respiratory Rate 16 Respiratory Effort Respiratory Pattern Blood Pressure 165/86 H Blood Pressure Mean 112 Pulse Ox 99 Oxygen Delivery Method Nasal Cannula Oxygen Flow Rate (L/min) Positive well nourished and well developed General Appearance ED: well developed and NAD HEENT Reports TM's clear and moist mucous membranes normocephalic and atraumatic; Negative for trauma or tenderness Tympanic Membrane ED: Yes TM's clear Eyes PERRL and EOMs intact bilaterally General Eye ED: Negative for pale conjunctiva or scleral icterus Neck no lymphadenopathy, supple and no JVD General: Negative for tenderness Chest Wall inspection of chest normal and palpation of chest normal Chest: Negative for tenderness Resp No normal respiratory effort and No clear to auscultation bilaterally Resp Narrative: Some pain expiratory wheezes bilaterally. Mild tachypnea. No accessory muscle use or retractions Effort and Inspection: Negative for respiratory distress or pain with movement Auscultation: wheezes; Negative for rhonchi or diminished lung sounds Cardio regular rate, regular rhythm, S1 normal heart sound, S2 normal heart sound and no murmurs Peripheral Pulses: pulses 2+ throughout GI normal to inspection, nondistended, normoactive bowel sounds, soft to palpation, non-distended and no masses GI Narrative: Mild tenderness palpation the epigastric region. There is no rebound, rigidity, or peritoneal signs Back/Spine no CVA tenderness and no thoracic nor lumbar tenderness Extremity normal to inspection General Extremety ED: Negative for edema General Extremity: Negative for edema Neuro oriented x3, CN's II-XII intact bilaterally, no sensory deficits noted and gait normal Sensorium / Orientation: awake, alert, oriented to person, oriented to place and oriented to time Motor Exam: strength 5/5 throughout and strength abnormal Psych mental status grossly normal Skin no rashes or lesions noted and no wounds MDM MDM MDM Narrative Medical decision making narrative: Patient presents with complaint of chest pain and shortness of breath after being hospitalized in a hospital in [place]. She presents with vomiting as well which started several days ago. IV line established. EKG obtained on arrival shows sinus rhythm with ventricular rate of [address] changes. CBC with differential showed an elevated white count of 22.9 with hemoglobin 15.9 and platelet count of 281. Chemistries unremarkable. D-dimer was 0.53 and normal when corrected for age. Lactate was 2.4. Troponin elevated 91. LFTs showed an AST of 40 with an ALT of 40 and alk phos of 78. Lipase was normal at 18. Initial chest x-ray obtained showed no acute disease process. CT scan of the chest and abdomen pelvis with IV contrast essentially unremarkable but did show some gastroesophageal reflux and right lung band atelectasis. Patient was medicated with morphine and Zofran initially. She was ordered Protonix. Patient was hypoxic initially and was placed on nasal cannula O2. Will discuss case with hospitalist to evaluate for admission given the elevated troponin and persistent nausea. It was decided that given her recent history of hematemesis and ongoing nausea and vomiting that we would hold off on anticoagulation at this time and we will monitor troponins. Lab Data Attestation: I reviewed the patient's lab results. Labs: Laboratory Results - last 24 hr 03/03/25 03/03/25 01:00 01:15 WBC 22.9 H RBC 5.21 Hgb 15.9 H Hct 46.5 MCV 89.3 MCH 30.5 MCHC 34.2 RDW Std Deviation 43.3 RDW Coeff of Tr 13.3 Plt Count 281 MPV 10.1 Immature Gran % (Auto) 0.400 Neut % (Auto) 82.4 H Lymph % (Auto) 11.1 L [place] % (Auto) 5.4 Eos % (Auto) 0.3 Baso % (Auto) 0.4 Absolute Neuts (auto) 18.9 H Absolute Lymphs (auto) 2.54 Nucleated RBC % 0 D-Dimer Quant (PE/DVT) 0.53 H* Sodium 138 Potassium 3.4 Chloride 97 L Carbon Dioxide 24.4 Anion Gap 17 H BUN 36 H Creatinine 1.09 Estim Creat Clear Calc 37.91 L Est GFR (MDRD) Non-Af 55 L BUN/Creatinine Ratio 33.1 H Glucose 154 H Lactic Acid 2.4 H* Calcium 10.5 Total Bilirubin 0.78 AST 40 H ALT 40 H Alkaline Phosphatase 78 Troponin T High Sens 91 H* Total Protein 7.0 Albumin 4.4 Globulin 2.7 Albumin/Globulin Ratio 1.6 Lipase 18 Radiography Diagnostic Testing: Clinical Impression(s) from Imaging Studies Chest X-Ray 03/02/25 23:59 IMPRESSION: No acute chest findings Reading Location: [facility] Chest/Abdomen/Pelvis CT 03/03/25 01:31 IMPRESSION: Right lung band atelectasis. Esophageal reflux. Reading Location: [facility] Discharge Plan Dx/Rx/DC Orders Clinical Impression: Non-ST elevated myocardial infarction, Intractable nausea and vomiting, Hypoxemia, History of COPD Disposition Disposition: Acute Care Hospital [facility]
--- NOTE | 2025-03-02 23:59 | RAD_ITS ---
PROCEDURE: CHEST 1 VIEW (PORTABLE) 03/03/2025 REASON FOR EXAM: DYSPNEA TECHNIQUE: Frontal view of the chest. COMPARISON: 02/15/2025 FINDINGS: Scoliosis. Normal heart size. Well inflated lungs. No consolidation, effusion, or pneumothorax. RAD/Chest 1 View (Portable) IMPRESSION: No acute chest findings Reading Location: [place] [id number]
[2025-03-03] VITALS (24 sets, daily range): BP systolic 132–188; BP diastolic 69–98; PULSE 78–95; RESP 15–25; TEMP 36.4–37.4; O2SAT 91–99; BMI 17.8
[2025-03-03] MEDS: 0.9% Normal Saline (1000mL) 1,000 ML 150 ML IV (00:35)
--- OUTSIDE RECORDS SUMMARY | 2025-03-03 00:37 | XMS RPT_ITS | CCD ---
Author Organization [facility] Care Team Providers Care Supervisor [employer] Name Role Phone Danish Davila DO Primary Care Provider Gasper Nelson DO Primary Care Provider Gasper Nelson DO F Primary Care Provider Gasper Nelson DO Primary Care Provider Danish Davila DO Primary Care Provider Giovanni VICK, Dr. Peng Primary Care Provider Wilfred Bryan MD Emergency Provider Dr. Bunny Avilez DO Admit Provider Raghav VICK, Dr. Hollis Attending Provider Raghav VICK, Dr. Hollis Other Provider GASPER NELSON Attending Unavailable GASPER NELSON Referring Unavailable GASPER NELSON Primary Care Unavailable SIOMARA ESTRADA Attending Unavailable GASPER NELSON Primary Care Unavailable GASPER NELSON Attending Unavailable GASPER NELSON Primary Care Unavailable Danish Davila Referring Unavailable Friend, Slim Attending Unavailable Danish Davila Primary Care Unavailable Danish Davila Primary Care Unavailable Abdulkadir Peralta Attending Unavailable Bunny Avilez Attending Unavailable Bunny Avilez Admitting Unavailable Danish Davila Primary Care Unavailable Bunny Avilez Admitting Unavailable Danish Davila Primary Care Unavailable Bunny Avilez Consulting Unavailable Bunny Avilez Attending Unavailable Danish Davila Primary Care Unavailable Pooja Padilla Attending Unavailable Danish Davila Referring Unavailable Friend, Slim Consulting Unavailable FriendSlim Attending Unavailable Danish Davila Primary Care Unavailable Allergies Allergy Classification Reported Allergen(s) Allergy Type Date of Onset Reaction(s) Facility Sulfonamides (antibiotic) (1 source) Sulfonamides (Antibiotic) Drug Allergy 3 [facility] (20 sources) Sulfonamides (Antibiotic) Propensity to adverse reactions to drug 3 [facility] (7 sources) Sulfonamides (Antibiotic); Translations: [Sulfa (Sulfonamide Antibiotics)] Allergy to substance 5 [facility] [place] Medications Current Medications Medication Drug Class(es) Dates Sig (Normalized) Sig (Original) 200 actuat albuterol 0.09 mg/actuat dry powder inhaler (20 sources) beta2-Adrenergic Agonist Start: 02-15-2025 Albuterol Sulfate 90 mcg/actuation aerosol powdr breath activated Active 2 NMA INHALATION Q4H as needed for shortness of breath or wheezing February 15, 2025 12:00am Start: 03-20-2024 End: 02-15-2025 Albuterol Sulfate (Proventil Hfa) 90 mcg/actuation HFA aerosol inhaler Discontinued 2 NMA INHALATION Q4H as needed for shortness of breath or wheezing March 20, 2024 12:00am February 15, 2025 9:25am Start: 11-14-2022 End: 02-10-2026 take 2 puff(s) [...] tablet (20 sources) Bisphosphonate Start: 07-25-2022 End: 02-15-2025 alendronate (Fosamax) 70 MG tablet TAKE 1 TABLET WEEKLY DIRECTED. SEE PACKAGE FOR ADDITIONAL INSTRUCTIONS 12 tablet 3 09/16/2024 Active azithromycin 250 mg oral tablet (19 sources) Macrolide Antimicrobial Start: 02-10-2025 End: 02-15-2025 [...] (Zithromax Z-Manuel) 250 MG tablet Discontinued 250 mg PO DAILY September 27, 2013 1:00am October 04, 2013 2:11pm benzonatate 100 mg oral capsule (2 sources) [...] mg/ml / guaiFENesin 20 mg/ml oral suspension (15 sources) Uncompetitive P-csxnto-G-aspartat e Receptor Antagonist, Sigma-1 Agonist Start: 10-31-2024 dextromethorphan- guaiFENesin (Robitussin-DM) 10-100 MG/5ML liquid 2 tsp QID prn cough 240 mL 10/31/2024 Active doxycycline hyclate 100 mg oral capsule (2 [...] sources) Proton Pump Inhibitor Start: 07-25-2022 End: 02-24-2025 esomeprazole (NexIUM) [address] capsule TAKE 1 CAPSULE EVERY MORNING BEFORE BREAKFAST 90 capsule 1 02/24/2025 Active Start: 01-04-2022 take 1 capsule by mo uth once daily before breakfast esomeprazole (NEXIUM) 40 MG delayed release capsule Take 1 capsule by mouth every morning (before breakfast) 90 capsule 0 01/04/2022 Active Start: 08-08-2013 take 2 capsules by m outh once daily Esomeprazole Magnesium (Nexium) 20 MG capsule Active 40 mg PO DAILY August 08, 2013 1:00am levoFLOXacin 500 mg oral tablet (8 sources) Quinolone Antimicrobial Start: 01-01-2024 End: 01-09-2024 take 1 tablet by mouth once daily levoFLOXacin (Levaquin) 500 MG tablet Take 1 tablet (500 mg) by mouth daily for 7 days. 7 tablet 0 01/02/2024 01/09/2024 Active Start: 01-31-2022 End: 04-26-2024 take 1 tablet by mouth once daily Levofloxacin 750 mg tablet Discontinued 750 mg PO DAILY January 31, 2022 12:00am April 26, 2024 2:33pm methylPREDNISolone 4 mg oral tablet (4 sources) [...] package. 21 tablet 0 11/14/2022 11/21/2022 Active predniSONE 20 mg oral tablet (20 sources) Start: 02-10-2025 take 1 tablet by mouth twice daily, then take 1 tablet by mouth once daily Prednisone 20 mg tablet Active 20 mg PO TWICE A DAY February 17, 2025 12:00am one twice a day for three days, then one daily until gone Start: 10-31-2024 End: 11-12-2024 take 1 tablet [...] 01/04/2022 Active Start: 09-27-2013 End: 10-04-2013 take 2 tablets by mouth once daily Prednisone 20 MG tablet Discontinued 40 mg PO DAILY@799September 27, 2013 1:00am October 04, 2013 2:11pm Start: 09-27-2013 End: 10-04-2013 take 40 mg by mouth once daily Prednisone Discontinued 40 MG PO DAILY@799September 27, 2013 12:00am October 04, 2013 1:11pm psyllium 3400 mg powder for oral suspension [...] nightly. 90 tablet 1 12/13/2024 Active Start: 03-20-2024 Simvastatin 80 mg tablet Active 40 mg PO AT BEDTIME March 20, 2024 12:00am Start: 12-24-2023 End: 12-13-2024 simvastatin (Zocor) 80 [...] mouth nightly 90 tablet 0 01/04/2022 Active traZODone hydrochloride 50 mg oral tablet (20 sources) Serotonin Reuptake Inhibitor Start: 02-17-2025 take 3 tablets by mouth at bedtime Trazodone 50 mg Tablet Active 150 mg PO AT BEDTIME February 17, 2025 12:00am Start: 03-20-2024 End: 02-15-2025 take 1 tablet by mouth every twenty-four hours at bedtime as needed for sleep Trazodone 150 mg tablet extended release 24 hr Discontinued 150 mg PO BEDTIME as needed for sleep March 20, 2024 12:00am February 15, 2025 9:24am Start: 02-22-2024 End: 02-10-2026 take 1 tablet by mouth once daily as needed for sleep traZODone (Desyrel) 150 MG tablet Indications: Other insomnia Take 1 tablet (150 mg) by mouth Nightly as needed for sleep. 90 tablet 02/10/2025 02/10/2026 Active Start: 2022 End: 02-22-2024 take 1 tablet by mouth once daily traZODone (Desyrel) 100 MG tablet Take 1 tablet (100 mg) by mouth Nightly. 90 tablet 0 10/03/2022 Active Start: 01-04-2022 take 1 tablet by mouth once da reina traZODone (DESYREL) 100 MG tablet Take 1 tablet by mouth nightly 90 tablet 0 01/04/2022 Active Start: 05-13-2014 End: 03-20-2024 take 1 tablet by mouth at bedtime Trazodone 50 MG tabl et Discontinued 50 mg PO AT BEDTIME May 13, 2014 12:00am March 20, 2024 9:16am 24 hr venlafaxine 150 mg extended release oral capsule (20 sources) Serotonin and Norepinephrine Reuptake Inhibitor Start: 03-20-2024 End: 02-24-2025 venlafaxine XR (Effexor XR) 150 MG 24 hr capsule TAKE 1 CAPSULE EVERY MORNING 90 capsule 1 02/24/2025 Active Start: 07-25-2022 End: 09-30-2024 take 1 [...] capsule 0 01/04/2022 04/04/2022 Active Start: 05-14-2014 End: 03-20-2024 take 1 capsule by mouth once daily Venlafaxine Xr (Effexor Xr) 75 MG capsule Discontinued 75 mg PO DAILY May 14, 2014 12:00am March 20, 2024 9:17am Start: 08-08-2013 End: 05-14-2014 take 3 tablets by mouth once daily Venlafaxine 25 MG tablet Discontinued 75 mg PO DAILY August 08, 2013 1:00am May 14, 2014 10:29am Start: 08-08-2013 End: 05-14-2014 take 75 mg [...] completed) cyclobenzaprine hydrochloride 10 mg oral tablet (6 sources) Muscle Relaxant Start: 08-08-2013 End: 09-27-2013 take 1 tablet by mouth three times daily Cyclobenzaprine 10 MG tablet Discontinued 10 mg PO THREE TIMES A DAY August 08, 2013 1:00am September 27, 2013 11:20pm Do not take when driving or working. Use before sleep. docusate sodium 100 mg oral capsule (6 sources) Start: 05-23-2014 End: 04-26-2024 take 1 capsule by mouth twice daily as needed for constipation Docusate Sodium (Colace) 100 MG capsule Discontinued 100 mg PO TWICE DAILY NEEDED as needed for Constipation 60 May 23, 2014 12:00am April 26, 2024 2:32pm ferrous sulfate 325 mg oral tablet (6 sources) Start: 10-04-2013 End: 04-26-2024 take 1 tablet by mouth twice daily at mealtime Ferrous Sulfate 325 MG tablet Discontinued 325 mg PO TWICE DAILY WITH MEALS October 04, 2013 1:00am April 26, 2024 2:33pm 60 actuat fluticasone propionate 0.25 mg/actuat / salmeterol 0.05 mg/actuat dry powder inhaler (19 sources) Corticosteroid, beta2-Adrenergic Agonist Start: 07-31-2023 End: 02-22-2024 Fluticasone-Salmeter ol (Wixela Inhub) 250-50 MCG/ACT aerosol powder Inhale 1 Inhalation in the morning and 1 Inhalation in the evening. 3 each 3 02/22/2024 02/22/2024 Discontinued (Entered in error) metoclopramide 10 mg oral tablet (6 sources) Dopamine-2 Receptor Antagonist Start: 10-07-2013 End: 10-19-2013 take 1 tablet by mouth four times daily at bedtime Metoclopramide Hcl 10 MG tablet Discontinued 10 mg PO 4 TIMES DAILY October 07, 2013 1:00October 19, 2013 11:58am take one tablet before meals and at bedtime if needed to prevent nausea and vomiting metoprolol tartrate 25 mg oral tablet (6 sources) beta-Adrenergic Luigi Start: 10-04-2013 End: 10-19-2013 Metoprolol Tartrate 25 MG tablet Discontinued 12.5 mg PO TWICE A DAY October 04, 2013 1:00am October 19, 2013 11:57am Start: 10-04-2013 End: 10-19-2013 take 12.5 mg by mouth twice daily Metoprolol Tartrate Discontinued 12.5 MG PO TWICE A DAY October 04, 2013 12:00am October 19, 2013 10:57am naproxen 500 mg oral tablet (6 sources) Nonsteroidal Anti-inflammatory Drug Start: 08-08-2013 End: 09-27-2013 take 1 tablet by mouth twice daily as needed for pain Naproxen 500 MG tablet Discontinued 500 mg PO TWICE DAILY NEEDED as needed for Pain August 08, 2013 1:00am September 27, 2013 11:20pm ondansetron 4 mg disintegrating oral tablet (20 sources) Serotonin-3 Receptor Antagonist Start: 01-31-2022 End: 04-26-2024 take 1 tablet by mouth every eight hours as needed for nausea and vomiting Ondansetron 4 mg tablet,disintegr ating Discontinued 4 mg PO Q8H as needed for nausea and vomiting January 31, 2022 12:00am April 26, 2024 2:33pm Start: 05-14-2014 End: 04-26-2024 take 1 tablet by mouth every eight hours as needed for nausea Ondansetron Hcl 8 MG tablet Discontinued 8 mg PO EVERY 8 HOURS NEEDED as needed for nausea, emesis May 23, 2014 8:15am April 26, 2024 2:33pm Start: 09-27-2013 End: 10-04-2013 take 1 tablet by mouth every eight hours as needed for nausea Ondansetron 4 MG tablet Discontinued 4 mg PO EVERY 8 HOURS NEEDED as needed for Nausea September 27, 2013 1:00am October 04, 2013 2:11pm oxyCODONE hydrochloride 5 mg oral tablet (12 sources) Opioid Agonist Start: 05-14-2014 End: 04-26-2024 take 2 tablets by mouth every four hours as needed for pain Oxycodone 5 MG tablet Discontinued 10 mg PO EVERY 4 HOURS NEEDED as needed for Moderate Pain (pain scale 4-5) May 23, 2014 8:15am April 26, 2024 2:33pm Start: 05-14-2014 End: 05-23-2014 take 10 mg by mouth every four hours as needed Oxycodone Active 10 MG PO EVERY 4 HOURS NEEDED May 23, 2014 7:15am potassium chloride 20 meq extended release oral tablet (6 sources) Start: 09-27-2013 End: 10-04-2013 Potassium Chloride (K-Dur) 20 MEQ tablet Discontinued 20 meq PO DAILY September 27, 2013 1:00am October 04, 2013 2:11pm potassium gluconate 2.5 meq oral tablet (6 sources) Start: 05-13-2014 End: 03-20-2024 take 1 tablet by mouth once daily Potassium (Otc) (Potassium Otc) 99 MG tablet Discontinued 99 mg PO DAILY May 13, 2014 12:00am March 20, 2024 9:18am promethazine hydrochloride 25 mg oral tablet (6 sources) Phenothiazine Start: 05-23-2014 End: 04-26-2024 take 1 tablet by mouth every four hours as needed Promethazine 25 MG tablet Discontinued 25 mg PO EVERY 4 HOURS NEEDED as needed for N/V if zofran not working May 23, 2014 12:00am April 26, 2024 2:33pm Problems Active Problems Problem Classification Problem Date Documented Da te Episodic/Chronic Anxiety disorders (2 sources) Anxiety; Translations: [Anxiety disorder, unspecified] Chronic Chronic obstructive pulmonary disease and bronchiectasis (20 sources) Chronic obstructive lung disease; Translations: [Chronic obstructive pulmonary disease, unspecified] Onset: 5 09-06-2021 Chronic Deficiency and other anemia (6 sources) Chronic anemia; Translations: [Anemia, unspecified] 07-19-2015 Episodic Disorders of lipid metabolism (20 sources) Hypercholesterolemia; Translations: [Pure hypercholesterolemia, unspecified] Onset: Chronic E Codes: Fall (6 sources) Fall; Translations: [Unspecified fall, initial encounter] 10-23-2013 Episodic Esophageal disorders (20 sources) Gastroesophageal reflux disease; Translations: [Gastro-esophageal reflux disease without esophagitis] Onset: 0 01-31-2022 Chronic Fluid and electrolyte disorders (10 sources) Hypokalemia; Translations: [Hypokalemia] 10-23-2013 Episodic Influenza (1 source) Influenza; Translations: [Influenza due to unidentified influenza virus with other respiratory manifestations] 10-31-2024 Episodic Mood disorders (13 sources) Depressive disorder; Translations: [Depression] 01-31-2022 Chronic Nausea and vomiting (6 sources) Nausea and vomiting; Translations: [Nausea with vomiting, unspecified] 07-19-2015 Episodic Other connective tissue disease (6 sources) Pain in lower limb; Translations: [Pain in leg, unspecified] 09-28-2013 Episodic Other gastrointestinal disorders (6 sources) Diarrhea; Translations: [Diarrhea, unspecified] 07-19-2015 Episodic Other lower respiratory disease (2 sources) Lower respiratory tract infection; Translations: [Unspecified acute lower respiratory infection] 12-22-2023 Episodic Other lower respiratory disease (7 sources) Imaging of lung abnormal ; Translations: [Other nonspecific abnormal finding of lung field] 02-22-2024 Episodic Other lower respiratory disease (4 sources) Hypoxia; Translations: [Hypoxemia] 02-15-2025 Episodic Pathological fracture (6 sources) Pathological fracture of pelvis; Translations: [Pathological fracture, pelvis, initial encounter for fracture] 07-19-2015 Episodic Pneumonia (except that caused by tuberculosis or sexually transmitted disease) (5 sources) Pneumonia; Translations: [Pneumonia, unspecified organism] 02-08-2022 [...] digestive organs] 02-22-2024 Episodic Sprains and strains (6 sources) Low back strain; Translations: [Strain of muscle, fascia and tendon of lower back, initial encounter] 10-23-2013 Episodic Substance-related disorders (20 sources) Smoker; Translations: [Nicotine dependence, unspecified, uncomplicated] Onset: Chronic Superficial injury; contusion (6 sources) Contusion of hip; Translations: [Contusion of unspecified hip, initial encounter] 10-23-2013 Episodic Unclassified (1 source) at next office visit Past or Other Problems Problem Classification Problem [...] screening for malignant neoplasm of colon] Onset: 05-10-2024 02-22-2024 Episodic Residual codes; unclassified (2 sources) Mammogram declined; Translations: [Procedure and treatment not carried out because of patient's decision for unspecified reasons] Episodic Residual codes; unclassified (2 sources) Colonoscopy refused; Translations: [Procedure and treatment not carried out because of patient's decision for unspecified reasons] Episodic Results Test Name Value Interpretation Reference Range [address] 02-24-2025 36 Recent Visits Date Type Provider Dept 11/12/24 Office Visit Siomara Estrada PA-C [facility] Showing recent visits within past 365 days and meeting all other requirements Future Appointments Date Type Provider Dept 05/12/25 Appointment Gasper Nelson DO [facility] Showing future appointments within next 90 days and meeting all other requirements Requested Prescriptions Pending Prescriptions Disp Refills venlafaxine XR (Effexor XR) 150 MG 24 hr capsule [Pharmacy Med Name: Venlafaxine HCl ER Oral Capsule Extended Release 24 Hour 150 MG] 90 capsule 3 Sig: TAKE 1 CAPSULE EVERY MORNING esomeprazole (NexIUM) [address] capsule [Pharmacy Med Name: Esomeprazole Magnesium Oral Capsule Delayed Release 40 MG] 90 capsule 3 Sig: TAKE 1 CAPSULE EVERY MORNING BEFORE BREAKFAST Provider: Gasper Nelson DO Verified pharmacy: yes Verified day(s) supplied: yes Verified refill(s) needed (previous prescription showing no refills in chart): Yes Have you received any controlled medications from any other provider? N/A Overdue for visit: No If yes - patient scheduled? Yes Most recent labs completed in chart? N/A Normal [facility] Anion gap in Serum or Plasma Ordered By: Bunny Avilez on 02-17-2025 Anion gap [Moles/Vol] 12 mmol/L 5-15 [facility] BUN/creatinine ratioOrdered By: Bunny Avilez on 02-17-2025 Urea nitrogen/Creatinine [Mass ratio] 34.6 mg/mg High 10-20 [facility] Basic Metabolic Profile (BMP )on 02-17-2025 BUN/CRE 34.6 RATIO High - [facility] Comment on above: Performed By: #### L 500.2500, L100.0100 #### [facility] [address] [place], [address] Calcium [Mass/Vol] 9.9 mg/dL Normal 7.6-11.0 [facility] Comment on above: Performed By: #### L 500.2500, L100.0100 #### [facility] [address] [place], [address] Chloride [Moles/Vol] 103 mmol/L Normal 98-108 [facility] Comment on above: Performed By: #### L 500.2500, L100.0100 #### [facility] [address] [place], [address] CO2 [Moles/Vol] 25.7 mmol/L Normal 21.0-32.0 [facility] Comment on above: Performed By: #### L 500.2500, L100.0100 #### [facility] [address] [place], [address] Creatinine [Mass/Vol] 0.68 mg/dL Low 0.70-1.20 [facility] Comment on above: Performed By: #### L 500.2500, L100.0100 #### [facility] [address] [place], [address] ECRCL 53.82 ml/min Normal 50-250 [facility] Comment on above: Performed By: #### L 500.2500, L100.0100 #### [facility] [address] [place], [address] GAP 12 Normal 5-15 [facility] Comment on above: Performed By: #### L 500.2500, L100.0100 #### [facility] [address] [place], [address] GFR/1.73 sq M.predicted among non-blacks MDRD (S/P/Bld) [Vol rate/Area] 94 mL/min/{1.73_m2} Normal >[address] [facility] Comment on above: Result Comment: mL/m in/1.73m2 CKD-EPI Creatinine Equation (2020) Performed By: #### L 500.2500, L100.0100 #### [facility] [address] [place], [address] Glucose [Mass/Vol] 102 mg/dL High 70-99 [facility] Comment on above: Performed By: #### L 500.2500, L100.0100 #### [facility] [address] [place], [address] Potassium [Moles/Vol] 4.4 mmol/L Normal 3.3-5.1 [facility] Comment on above: Performed By: #### L 500.2500, L100.0100 #### [facility] [address] [place], [address] Sodium [Moles/Vol] 140 mmol/L Normal 133-145 [facility] Comment on above: Performed By: #### L 500.2500, L100.0100 #### [facility] [address] [place], [address] Urea nitrogen [Mass/Vol] 23 mg/dL High 4-19 [facility] Comment on above: Performed By: #### L 500.2500, L100.0100 #### [facility] [address] [place], [address] Carbon dioxide, total [Moles /volume] in Central venous bloodOrdered By: Bunny Avilez on 02-17-2025 CO2 [Moles/Vol] 25.7 mmol/L 21.0-32.0 [facility] Chloride assayOrdered By: Malaika Avilez on 02-17-2025 Chloride [Moles/Vol] 103 mmol/L 98-108 [facility] Discharge Instructionon 02-02 Discharge Instruction [facility] Medical Records Department [address] [place] [address] Instructions for Home/Discharge Instructions 02/17/25 1052 MR#: [id number] Acct: [id number] Name: ASHLEY ÓGMEZ Rep #: [id number] : 1955 69 From: Bunny Avilez DO PCP: Dr. Danish Davila DO Status:ADM IN Discharge Instructions Diet Discharge Diet: No restrictions DC O2, CPAP, BIPAP needs Home O2 Discharge instructions: No Dressing / Incision Discharge Activity: Return to Normal Activity Weight Bearing Status: Weight bearing as tolerated Follow Up Care Test Results: Test results from this visit will be discussed in further detail at your follow-up appointment, if applicable. Discharge Plan Admission Admit Date/Time: 02/15/25 11:21 Primary Reason for Your Visit: exacerbation of COPD Attending Provider: Bunny Avilez Primary Care Provider: Dansih Davila Instructions Additional Instructions / Restrictions: advise you to cut down or quit smoking Discharge Orders/Prescription s Prescriptions: New trazodone 50 mg Tablet 150 mg PO QHS Qty: 15 0RF prednisone 20 mg tablet 20 mg PO BID Qty: 10 0RF Rx Instructions: one twice a day for three days, then one daily until gone Continued simvastatin 80 mg tablet 40 mg PO QHS Patient Comments: PT TAKING 40 MG, BREAKS PILL IN HALF venlafaxine 150 mg capsule,extended release 24hr 150 mg PO DAILY esomeprazole magnesium [Nexium] 20 MG capsule 40 mg PO DAILY Patient Comments: acid reflux albuterol sulfate 90 mcg/actuation aerosol powdr breath activated 2 inh inhalation Q4H PRN (Reason: shortness of breath or wheezing) Discontinued trazodone 150 mg tablet 150 mg PO QHS Patient Comments: PT IS OUT, BUT SHE DOES TAKE. Referrals / Follow Up: Danish Davila DO [Primary Care Provider] - (at next office visit) Disposition Disposition (needs filled in before D/C Order can be placed): Home, Self Care 02/17/25 1059 Bunny Avilez DO CC: Dr. Danish Davila DO Signed Normal [facility] Glomerular filtration rate ( GFR) estimation/1.73 sq m using serum, plasma, or whole bOrdered By: Bunny Avilez on 02-17-2025 GFR/1.73 sq M.predicted among non-blacks MDRD (S/P/Bld) [Vol rate/Area] 94 mL/min/{1.73_m2} >[address] [facility] Comment on above: mL/min/1.73m2 CKD-EP I Creatinine Equation (2020) Potassium measurement (mass/ volume)Ordered By: Bunny Avilez on 02-17-2025 Potassium (Unsp spec) [Mass/Vol] 4.4 mmol/L 3.3-5.1 [facility] Serum creatinine measurement (mass/volume)Ordered By: Bunny Avilez on 02-17-2025 Creatinine [Mass/Vol] 0.68 mg/dL Low 0.70-1.20 [facility] Serum glucose measurement (m ass/volume)Ordered By: Bunny Avilez on 02-17-2025 Glucose [Mass/Vol] 102 mg/dL High 70-99 [facility] Serum or plasma calcium janneth urement (mass/volume)Ordered By: Bunny Avilez on 02-17-2025 Calcium [Mass/Vol] 9.9 mg/dL 7.6-11.0 [facility] Serum or plasma urea nitroge n measurement (mass/volume)Ordered By: Bunny Avilez on 02-17-2025 Urea nitrogen [Mass/Vol] 23 mg/dL High 4-19 [facility] Sodium levelOrdered By: Bunny Avilez on 02-17-2025 Sodium [Moles/Vol] 140 mmol/L 133-145 [facility] Basic Metabolic Profile (BMP )on 02-16-2025 BUN/CRE 28.6 RATIO High 10-20 [facility] Comment on above: Performed By: #### L 500.2500, L100.0100 #### [facility] [address] [place], [address] Calcium [Mass/Vol] 10.4 mg/dL Normal 7.6-11.0 [facility] Comment on above: Performed By: #### L 500.2500, L100.0100 #### [facility] [address] [place], [address] Chloride [Moles/Vol] 106 mmol/L Normal 98-108 [facility] Comment on above: Performed By: #### L 500.2500, L100.0100 #### [facility] [address] [place], [address] CO2 [Moles/Vol] 24.1 mmol/L Normal 21.0-32.0 [facility] Comment on above: Performed By: #### L 500.2500, L100.0100 #### [facility] [address] [place], [address] Creatinine [Mass/Vol] 0.68 mg/dL Low 0.70-1.20 [facility] Comment on above: Performed By: #### L 500.2500, L100.0100 #### [facility] [address] [place], [address] ECRCL 53.82 ml/min Normal 50-250 [facility] Comment on above: Performed By: #### L 500.2500, L100.0100 #### [facility] [address] [place], [address] GAP 12 Normal 5-15 [facility] Comment on above: Performed By: #### L 500.2500, L100.0100 #### [facility] [address] [place], [address] GFR/1.73 sq M.predicted among non-blacks MDRD (S/P/Bld) [Vol rate/Area] 94 mL/min/{1.73_m2} Normal >[address] [facility] Comment on above: Result Comment: mL/m in/1.73m2 CKD-EPI Creatinine Equation (2020) Performed By: #### L 500.2500, L100.0100 #### [facility] [address] [place], [address] Glucose [Mass/Vol] 110 mg/dL High 70-99 [facility] Comment on above: Performed By: #### L 500.2500, L100.0100 #### [facility] [address] [place], [address] Potassium [Moles/Vol] 5.5 mmol/L High 3.3-5.1 [facility] Comment on above: Result Comment: Hemo lysis present, Results??could be affected. ?? Performed By: #### L 500.2500, L100.0100 #### [facility] [address] [place], [address] Sodium [Moles/Vol] 142 mmol/L Normal 133-145 [facility] Comment on above: Performed By: #### L 500.2500, L100.0100 #### [facility] [address] [place], [address] Urea nitrogen [Mass/Vol] 19 mg/dL Normal 4-19 [facility] Comment on above: Performed By: #### L 500.2500, L100.0100 #### [facility] [address] [place], [address] 12 Lead EKGon 02-15-2025 12 Lead EKG [facility] Cardiovascular Services [address] [place] [address] 12 Lead EKG 02/15/25 0839 MR#: [id number] Acct: [id number] Name: ASHLEY GÓMEZ Rep #: [id number] : 1955 69 From: Ezequiel Gusman MD Attending Dr: Dr. Bunny Avilez DO Status: D IS IN Ordering Dr: Wilfred Bryan MD Date: 02/15/25 [place] [facility] [place] F C Admitted: 02/15/25 Test Reason : SOB Blood Pressure : */* mmHG Vent. Rate : 84 BPM Atrial Rate : 84 BPM P-R Int : 154 ms QRS Dur : 72 ms QT Int : 384 ms P-R-T Axes : 88 64 29 degrees QTcB Int : 453 ms Normal sinus rhythm Normal ECG Confirmed by EZEQUIEL UGSMAN MD ([id number]), medical editor TIFFANI BENZ ([id number]) on 02/18/2025 8:22:27 AM Referred By: JOMAR Confirmed By: EZEQUIEL GUSMAN MD 02/18/25821 Date Ezequiel Gusman MD CC: Dr. Wilfred Bryan MD; Dr. Bunny Avilez DO; Dr. Danish Davila DO Signed Normal [facility] Absolute lymphocyte countOrd ered By: Wilfred Bryan on 02-15-2025 Lymphocytes Auto (Unsp spec) [#/Vol] 1.81 10*3/uL 0.83-4.51 [facility] Absolute neutrophil countOrd ered By: Wilfred Bryan on 02-15-2025 Neutrophils (Bld) [#/Vol] 7.2 10*3/uL 2.0-7.7 [facility] Anion gap in Serum or Plasma Ordered By: Wilfred Bryan on 02-15-2025 Anion gap [Moles/Vol] 13 mmol/L 5-15 [facility] Automated lymphocyte count a s percentage of total leukocytesOrdered By: Wilfred Bryan on 02-15-2025 Lymphocytes/100 WBC Auto (Unsp spec) 19.2 % 19-41 [facility] BUN/creatinine ratioOrdered By: Wilfred Bryan on 02-15-2025 Urea nitrogen/Creatinine [Mass ratio] 22.4 mg/mg High 10-20 [facility] Basic Metabolic Profile (BMP )on 02-15-2025 BUN/CRE 22.4 RATIO High - [facility] Comment on above: Performed By: #### L 500.2500, L100.0100 #### [facility] [address] [place], [address] Calcium [Mass/Vol] 9.8 mg/dL Normal 7.6-11.0 [facility] Comment on above: Performed By: #### L 500.2500, L100.0100 #### [facility] [address] [place], [address] Chloride [Moles/Vol] 101 mmol/L Normal 98-108 [facility] Comment on above: Performed By: #### L 500.2500, L100.0100 #### [facility] [address] [place], [address] CO2 [Moles/Vol] 26.3 mmol/L Normal 21.0-32.0 [facility] Comment on above: Performed By: #### L 500.2500, L100.0100 #### [facility] [address] [place], [address] Creatinine [Mass/Vol] 0.75 mg/dL Normal 0.70-1.20 [facility] Comment on above: Performed By: #### L 500.2500, L100.0100 #### [facility] [address] [place], [address] ECRCL 53.51 ml/min Normal 50-250 [facility] Comment on above: Performed By: #### L 500.2500, L100.0100 #### [facility] [address] [place], [address] GAP 13 Normal 5-15 [facility] Comment on above: Performed By: #### L 500.2500, L100.0100 #### [facility] [address] [place], [address] GFR/1.73 sq M.predicted among non-blacks MDRD (S/P/Bld) [Vol rate/Area] 86 mL/min/{1.73_m2} Normal >[address] [facility] Comment on above: Result Comment: mL/m in/1.73m2 CKD-EPI Creatinine Equation (2020) Performed By: #### L 500.2500, L100.0100 #### [facility] [address] [place], [address] Glucose [Mass/Vol] 136 mg/dL High 70-99 [facility] Comment on above: Performed By: #### L 500.2500, L100.0100 #### [facility] [address] [place], [address] Potassium [Moles/Vol] 3.2 mmol/L Low 3.3-5.1 [facility] Comment on above: Performed By: #### L 500.2500, L100.0100 #### [facility] [address] [place], [address] Sodium [Moles/Vol] 140 mmol/L Normal 133-145 [facility] Comment on above: Performed By: #### L 500.2500, L100.0100 #### [facility] [address] [place], [address] Urea nitrogen [Mass/Vol] 17 mg/dL Normal 4-19 [facility] Comment on above: Performed By: #### L 500.2500, L100.0100 #### [facility] [address] [place], [address] Basophil percentageOrdered B y: Wilfred Bryan on 02-15-2025 Basophils/100 WBC (Bld) 1.0 % 0-1 [facility] CBC W/Diff, Automatedon 02-02 Absolute Lymph 1.81 X10 3/uL Normal 0.83-4.51 [facility] Comment on above: Performed By: #### L 500.2500, L100.0100 #### [facility] [address] [place], [address] Absolute Neut 7.2 X10 3/uL Normal 2.0-7.7 [facility] Comment on above: Performed By: #### L 500.2500, L100.0100 #### [facility] [address] [place], [address] Basophils/100 WBC (Bld) 1.0 % Normal 0-1 [facility] Comment on above: Performed By: #### L 500.2500, L100.0100 #### [facility] [address] [place], [address] Eosinophils/100 WBC (Bld) 0.7 % Normal 0-5 [facility] Comment on above: Performed By: #### L 500.2500, L100.0100 #### [facility] [address] [place], [address] Erythrocyte distribution width (RBC) [Ratio] 13.2 % Normal 11.6-14.6 [facility] Comment on above: Performed By: #### L 500.2500, L100.0100 #### [facility] [address] [place], [address] Hematocrit (Bld) [Volume fraction] 41.5 % Normal 37-47 [facility] Comment on above: Performed By: #### L 500.2500, L100.0100 #### [facility] [address] [place], [address] Hemoglobin (Bld) [Mass/Vol] 13.6 g/dL Normal 12.0-15.0 [facility] Comment on above: Performed By: #### L 500.2500, L100.0100 #### [facility] [address] [place], [address] IG% 0.200 Normal 0.0-0.9 [facility] Comment on above: Result Comment: IG% - Immature Granulocytes (promyelocytes, myelocytes and metamyelocytes) > 1% indicates that a LEFT SHIFT is Present. Performed By: #### L 500.2500, L100.0100 #### [facility] [address] [place], [address] Lymphocytes/100 WBC (Bld) 19.2 % Normal 19-41 [facility] Comment on above: Performed By: #### L 500.2500, L100.0100 #### [facility] [address] [place], [address] MCH (RBC) [Entitic mass] 29.9 pg Normal 27.0-32.0 [facility] Comment on above: Performed By: #### L 500.2500, L100.0100 #### [facility] [address] [place], [address] MCHC (RBC) [Mass/Vol] 32.8 g/dL Normal 32-36 [facility] Comment on above: Performed By: #### L 500.2500, L100.0100 #### [facility] [address] [place], [address] MCV (RBC) [Entitic vol] 91.2 fL Normal 81-99 [facility] Comment on above: Performed By: #### L 500.2500, L100.0100 #### [facility] [address] [place], [address] Monocytes/100 WBC (Bld) 1.9 % Normal 0-10 [facility] Comment on above: Performed By: #### L 500.2500, L100.0100 #### [facility] [address] [place], [address] Neutrophils/100 WBC (Bld) 77.0 % High 47-70 [facility] Comment on above: Performed By: #### L 500.2500, L100.0100 #### [facility] [address] [place], [address] Nucleated RBC (Bld) [#/Vol] 0 10*3/uL Normal 0-5 [facility] Comment on above: Performed By: #### L 500.2500, L100.0100 #### [facility] [address] [place], [address] Platelet mean volume (Bld) [Entitic vol] 9.7 fL Normal 6.2-12.0 [facility] Comment on above: Performed By: #### L 500.2500, L100.0100 #### [facility] [address] [place], [address] Platelets (Bld) [#/Vol] 263 10*3/uL Normal 150-450 [facility] Comment on above: Performed By: #### L 500.2500, L100.0100 #### [facility] [address] [place], [address] RBC (Bld) [#/Vol] 4.55 10*6/uL Normal 4.2-5.4 [facility] Comment on above: Performed By: #### L 500.2500, L100.0100 #### [facility] [address] [place], [address] RDW SD 44.6 fl High 35.1-43.9 [facility] Comment on above: Performed By: #### L 500.2500, L100.0100 #### [facility] [address] [place], [address] WBC (Bld) [#/Vol] 9.4 10*3/uL Normal 4.4-11.0 [facility] Comment on above: Performed By: #### L 500.2500, L100.0100 #### [facility] [address] [place], [address] Carbon dioxide, total [Moles /volume] in Central venous bloodOrdered By: Wilfred Bryan on 02-15-2025 CO2 [Moles/Vol] 26.3 mmol/L 21.0-32.0 [facility] Chest 1 View (Portable)on Chest 1 View (Portable) [facility] Imaging Services [address] [place] [address] Chest 1 View (Portable) MR#: [id number] Acct: [id number] Name: ASHLEY GÓMEZ Rep #: [id number] : 1955 F 69 From: Dejuan Patel DO PCP: Dr. Danish Davila DO Status: REG ER Study: Chest 1 View (Portable) Date of Exam: 02/15/25 Exam# [id number] Ordering Dr: Wilfred Bryan MD PROCEDURE: CHEST 1 VIEW (PORTABLE) 02/15/2025 REASON FOR EXAM: SHORTNESS OF BREATH TECHNIQUE: Frontal view of the chest. FINDINGS: Hardware: None Heart: Normal size Lungs: Clear Bones: No aggressive Other: RAD/Chest 1 View (Portable) IMPRESSION: No acute process Reading Location: [facility] [place] CC: Dr. Wilfred Bryan MD; Dr. 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 Danish Fracasso, DO Status:REG ER Location: ED HPI History of Present Illness Chief Complaint: Shortness of Breath Narrative Narrative: 69-year-old female past medical history of COPD, does not wear oxygen, presents via EMS with increased shortness of breath for the last 4 to 5 days. She states it is hard for her to breathe. Her primary care provider called her in a prescription for prednisone a few days ago which she started. This morning she awoke feeling feverish with reported temperature as high as 101 degrees. She went to work today and she states her boss called EMS because of her difficulty breathing. She has a rare cough that is nonproductive. No leg swelling. She uses her albuterol in the morning and sometimes during the day. Additionally, sometimes she smokes as well. [facility] Medical History Wears dentures Wears glasses Post-menopausal Depression Arthritis Anemia Gastric reflux Former smoker Hoarseness History of stress test Osteopenia COPD (chronic obstructive pulmonary disease) Family hx of colon cancer Nausea vomiting Diarrhea Pathologic pelvic fracture Chronic anemia GERD (gastroesophageal reflux disease) Depression Home Medications ???Medication ???Instructions ???Recorded ???Last Taken ???Type esomeprazole magnesium 20 mg 40 mg PO DAILY 08/08/13 02/15/25 H istory capsule,delayed release (Nexium) simvastatin 80 mg tablet 40 mg PO QHS 03/20/24 02/13/25 His tory venlafaxine 150 mg 150 mg PO DAILY 03/20/24 02/15/25 History capsule,extended release 24 hr albuterol sulfate 90 mcg/actuation 2 inh inhalation Q4H PRN shortne ss 02/15/25 Unknown History breath activated powder inhaler of breath or wheezing trazodone 150 mg tablet 150 mg PO QHS 02/15/25 Unknown His tory Allergy/AdvReac Type Severity Reaction Status Date / Time Sulfa (Sulfonamide Allergy Hives Verified 02/15/25 08:34 Antibiotics) Family History Mother Pancreatic cancer Father COPD (chronic obstructive pulmonary disease) Brother Colon cancer Heart disease Sister Stomach cancer Brother Leukemia Surgical History History of tonsillectomy and adenoidectomy Hx of cholecystectomy Hx of appendectomy Hx of colonoscopy Social History household members: none current occupational status: employed current occupation: [employer] Smoking Status: Current every day smoker tobacco type: cigarettes Tobacco: How many years used: 4 alcohol intake: former substance use type: does not use ROS ROS ED ROS Narrative Review of systems positive for reported fever. Shortness of breath for the last 4 to 5 days. Increased difficulty breathing. Occasional cough. No leg swelling. No chest pain, no nausea or vomiting. EXAM Physical Exam Narrative Exam Narrative: Afebrile. Vital signs noted. Nontoxic-appearing. Cardiovascular examination reveals a regular rate and rhythm. Respiratory examination shows no distress. She has decreased breath sounds at the bilateral bases with occasional expiratory wheezing. Abdomen is soft and nontender with out guarding or rebound. Positive bowel sounds. Neurological examination nonfocal nonlateralizing. No pedal edema. Const Vital Signs: 02/15/25 08:30 02/15/25 08:36 02/15/25 09:12 Temperature 98.4 F Temperature Source Oral Pulse Rate 80 Respiratory Rate 24 H Respiratory Pattern Tachypnea Blood Pressure 143/74 H Blood Pressure Mean 97 Pulse Ox 91 90 Oxygen Delivery Method Room Air Room Air Room Air Oxygen Flow Rate (L/min) 02/15/25 09:12 02/15/25 09:36 02/15/25 09:36 Temperature Temperature Source Pulse Rate 75 80 Respiratory Rate 16 18 Respiratory Pattern Blood Pressure Blood Pressure Mean Pulse Ox 85 Oxygen Delivery Method Room Air Oxygen Flow Rate (L/min) 02/15/25 10:30 02/15/25 10:47 Temperature 98 F Temperature Source Pulse Rate 86 87 Respiratory Rate 19 H 19 H Respiratory Pattern Blood Pressure 132/69 H 132/68 H Blood Pressure Mean 90 89 Pulse Ox 91 91 Oxygen Delivery Method Nasal Cannula Oxygen Flow Rate (L/min) 2 MDM MDM MDM Narrative Medical decision making narrative: Differential diagnosis includes but not limited to COPD exacerbation versus pneumonia versus pneumothorax. History and physical does not support pneumoth (more content not included)... Normal [facility] Eosinophil percentageOrdered By: Wilfred Bryan on 02-15-2025 Eosinophils/100 WBC (Bld) 0.7 % 0-5 [facility] Erythrocyte distribution wid th ratioOrdered By: Wilfred Bryan on 02-15-2025 Erythrocyte distribution width (RBC) [Ratio] 13.2 % 11.6-14.6 [facility] Erythrocyte distribution wid th standard deviationOrdered By: Wilfred Bryan on 02-15-2025 Erythrocyte distribution width (RBC) [Ratio] 44.6 fl High 35.1-43.9 [facility] Glomerular filtration rate ( GFR) estimation/1.73 sq m using serum, plasma, or whole bOrdered By: Wilfred Bryan on 02-15-2025 GFR/1.73 sq M.predicted among non-blacks MDRD (S/P/Bld) [Vol rate/Area] 86 mL/min/{1.73_m2} >[address] [facility] Comment on above: mL/min/1.73m2 CKD-EP I Creatinine Equation (2020) H AND P Exam - [facility] 02-15-2025 H&P Exam - Hospitalist [facility] Medical Records Department [address] [place] [address] H P Exam - Hospitalist 02/15/25 1459 MR#: [id number] Acct: [id number] Name: ASHLEY GÓMEZ Rep #: [id number] : 1955 69 From: Bunny Avilez DO PCP: Dr. Danish Davila DO Status:ADM IN [place] [facility] [id number] HPI - General General Date of Admission: 02/15/25 Date of Service: 02/15/25 Chief Complaint: Shortness of breath HPI Narrative ASHLEY GÓMEZ, is a 69 F who presents to the emergency room at [facility] with complaints of shortness of breath over the last 2 days. Patient denies any chills, she denies any productive sputum, she does say she was running a fever of 101 at home.. Patient wears no oxygen at home, she was given a prescription from her PCP for prednisone a few days ago which she started. Examination the patient revealed her to be afebrile, she had diffuse expiratory wheezes scattered over both lungs, patient's pulse ox on room air was 85%. Patient required 2 L of oxygen to maintain her pulse ox above 90%. Labs were remarkable for a potassium of 3.2, CC was unremarkable. chest x-ray was obtained which showed no acute infiltrates patient will be admitted to [place] [address] for exacerbation of COPD with hypoxia, she will be given aerosol treatments IV Solu-Medrol, pulse ox will be monitored. [facility] Medical History Wears dentures Wears glasses Post-menopausal Depression Arthritis Anemia Gastric reflux Former smoker Hoarseness History of stress test Osteopenia COPD (chronic obstructive pulmonary disease) Family hx of colon cancer Nausea vomiting Diarrhea Pathologic pelvic fracture Chronic anemia GERD (gastroesophageal reflux disease) Depression Home Medications ???Medication ???Instructions ???Recorded ???Last Taken ???Type esomeprazole magnesium 20 mg 40 mg PO DAILY 08/08/13 02/15/25 H istory capsule,delayed release (Nexium) simvastatin 80 mg tablet 40 mg PO QHS 03/20/24 02/13/25 His tory venlafaxine 150 mg 150 mg PO DAILY 03/20/24 02/15/25 History capsule,extended release 24 hr albuterol sulfate 90 mcg/actuation 2 inh inhalation Q4H PRN shortne ss 02/15/25 Unknown History breath activated powder inhaler of breath or wheezing trazodone 150 mg tablet 150 mg PO QHS 02/15/25 Unknown His tory Allergy/AdvReac Type Severity Reaction Status Date / Time Sulfa (Sulfonamide Allergy Hives Verified 02/15/25 08:34 Antibiotics) Family History Mother Pancreatic cancer Father COPD (chronic obstructive pulmonary disease) Brother Colon cancer Heart disease Sister Stomach cancer Brother Leukemia Surgical History History of tonsillectomy and adenoidectomy Hx of cholecystectomy Hx of appendectomy Hx of colonoscopy Social History household members: none current occupational status: employed current occupation: [employer] Smoking Status: Current every day smoker tobacco type: cigarettes Tobacco: How many years used: 4 alcohol intake: former substance use type: does not use ROS Constitutional Constitutional: Reports fatigue and fever(s); Denies anorexia, change in weight, chills, night sweats or weakness Eyes Eyes: Denies blurry vision, change in eye color, change in vision, discharge from eye(s) or eye pain Cardiovascular Cardiovascular: Reports dyspnea on exertion; Denies chest pain, claudication, edema or palpitations Respiratory/Chest Respiratory/Chest: Reports cough, dyspnea, shortness of breath at rest and shortness of breath with exertion; Denies hemoptysis Gastrointestinal Gastrointestinal: Denies abdominal pain, constipation, diarrhea, hematemesis, hematochezia, melena, nausea or vomiting Genitourinary Genitourinary: Denies dysuria, hematuria, urinary frequency, urinary hesitancy, urinary incontinence or urinary urgency Musculoskeletal Musculoskeletal: Denies back pain, joint pain, joint stiffness, joint swelling, myalgias or neck pain Neurologic Neurologic: Denies abnormal gait, abnormal speech, dizziness, focal weakness, headache(s), loss of vision, numbness, other visual disturbances, paresthesias, syncope or tingling Psychiatric Psychiatric: Denies anxiety, cognitive impairment, depression, irritability, mood swings or suicidal ideation Endocrine Endocrinology: Denies change in body appearance, cold intolerance, excessive sweating, heat intolerance, polydipsia or polyuria Hematologic/Lymphat ic Hematologic/Lymphat ic: Denies none, anemia, easy bleeding, easy bruising or lymphadenopathy Allergic/Immunologi c Allergic/Immunologi c: Denies rhinitis, urticaria, eczemia or asthma Vital Signs (more content not included)... Normal [facility] Hematocrit Auto (Bld) [Volum e fraction]Ordered By: Wilfred Bryan on 02-15-2025 Hematocrit (Bld) [Volume fraction] 41.5 % 37-47 [facility] Hemoglobin measurementOrdere d By: Wilfred Bryan on 02-15-2025 Hemoglobin (Bld) [Mass/Vol] 13.6 g/dL 12.0-15.0 [facility] Immature granulocytes/100 WB C Auto (Bld)Ordered By: Wilfred Bryan on 02-15-2025 Immature granulocytes/100 WBC (Bld) 0.200 % 0.0-0.9 [facility] Comment on above: IG% - Immature Granu locytes (promyelocytes, myelocytes and metamyelocytes) > 1% indicates that a LEFT SHIFT is Present. MCV (mean corpuscular volume ) determinationOrdered By: Wilfred Bryan on 02-15-2025 MCV (RBC) [Entitic vol] 91.2 fL 81-99 [facility] Mean corpuscular hemoglobin (MCH) determinationOrdered By: Wilfred Bryan on 02-15-2025 MCH (RBC) [Entitic mass] 29.9 pg 27.0-32.0 [facility] Mean corpuscular hemoglobin concentration (MCHC) determinationOrdered By: Wilfred Bryan on 02-15-2025 MCHC (RBC) [Mass/Vol] 32.8 g/dL 32-36 [facility] Mean platelet volume determi nationOrdered By: Wilfred Bryan on 02-15-2025 Platelet mean volume (Bld) [Entitic vol] 9.7 fL 6.2-12.0 [facility] Monocyte percentageOrdered B y: Wilfred Bryan on 02-15-2025 Monocytes/100 WBC (Bld) 1.9 % 0-10 [facility] Neutrophil percentageOrdered By: Wilfred Bryan on 02-15-2025 Neutrophils/100 WBC (Bld) 77.0 % High 47-70 [facility] Nucleated red blood cell per centageOrdered By: Wilfred Bryan on 02-15-2025 Nucleated RBC/100 WBC (Bld) [Ratio] 0 % 0-5 [facility] Platelet countOrdered By: Lloyd Bryan on 02-15-2025 Platelets (Bld) [#/Vol] 263 10*3/uL 150-450 [facility] Potassium measurement (mass/ volume)Ordered By: Wilfred Bryan on 02-15-2025 Potassium (Unsp spec) [Mass/Vol] 3.2 mmol/L Low 3.3-5.1 [facility] RBC Auto (Bld) [#/Vol]Ordere d By: Wilfred Bryan on 02-15-2025 RBC (Bld) [#/Vol] 4.55 10*6/uL 4.2-5.4 [facility] Serum creatinine measurement (mass/volume)Ordered By: Wilfred Bryan on 02-15-2025 Creatinine [Mass/Vol] 0.75 mg/dL 0.70-1.20 [facility] Serum glucose measurement (m ass/volume)Ordered By: Wilfred Bryan on 02-15-2025 Glucose [Mass/Vol] 136 mg/dL High 70-99 [facility] Serum or plasma calcium janneth urement (mass/volume)Ordered By: Wilfred Bryan on 02-15-2025 Calcium [Mass/Vol] 9.8 mg/dL 7.6-11.0 [facility] Serum or plasma urea nitroge n measurement (mass/volume)Ordered By: Wilfred Bryan on 02-15-2025 Urea nitrogen [Mass/Vol] 17 mg/dL 4-19 [facility] Sodium levelOrdered By: Wilfred miguel ángle on 02-15-2025 Sodium [Moles/Vol] 140 mmol/L 133-145 [facility] White blood cell (WBC) count Ordered By: Wilfred Bryan on 02-15-2025 WBC (Bld) [#/Vol] 9.4 10*3/uL 4.4-11.0 [facility] 36on 02-11-2025 36 Patient advised and voiced understanding. [facility] 29on 02-10-2025 29 Addended by: JUJU PATTON on: 02/10/2025 03:52 PM Modules accepted: Orders [facility] 36on 02-10-2025 36 Called patient to relay provider message left voicemail to call office back. Mychart message sent to patient. Please relay message to patient. [facility] 36 Message released to patient as [...] a new script sent in. Please advise [facility] 36 Left message to return call Gasper Nelson DO 02/10/25 12:43 PM Antibiotic, and prednisone prescribed to her local pharmacy. I would take the prednisone 5 days due to her emphysema [facility] 36 Recent Visits Date Type Provider Dept 11/12/24 Office Visit Siomara Estrada PA-C [facility] 02/22/24 Office Visit Gasper Nelson, [facility] Showing recent visits within past 365 [...] Most recent labs completed in chart? N/A [facility] 36 Recent Visits Date Type Provider Dept 11/12/24 Office Visit Siomara Estrada PA-C [facility] 02/22/24 Office Visit Gaspre Nelson DO [facility] Showing recent visits within past 365 [...] Most recent labs completed in chart? N/A [facility] 36 S: Patient spoke with [facility] nurse regarding chest congestion and increased shortness [...] refill on her albuterol inhaler. (Sent via Revstr request). Allergies and pharmacy verified. R: Offered [...] or worse than normal Protocols used: Breathing Tapnohqeoa-CBNIW-BF [facility] 36on 12-13-2024 36 Recent Visits Date Type Provider Dept 11/12/24 Office Visit Siomara Estrada PA-C [facility] 02/22/24 Office Visit Gasper Nelson DO [facility] Showing recent visits within past 365 [...] CHOLHDLCRATI 4.2 01/13/2023 NONHDLCHOLES 174 (H) 01/13/2023 [facility] 37on 11-12-2024 37 Personalized Preventative Plan [...] Recommendations: A preventive eye exam by an internet marketing specialist is recommended every 1-2 years to screen for glaucoma, cataracts, macular degeneration, and other eye disorders. A preventive dental visit is recommended every 6 months. Try to get at least 150 minutes of exercise per week or 10,000 steps per day on a pedometer. You need 1200-1500mg of calcium and 1844-8733 international units of vitamin D per day. [...] when riding a bicycle or a motorcycle Normal [facility] Office Visiton 11-12-2024 Follow-up visit [id number] Ashley Gómez 1955 F Date Provider Department Center 11/12/2024 SIOMARA DIAZ [facility] Family History Problem Relation Age of [...] Brother Alive Brother Alive Level of Service:G0439 [place] PPPS, SUBSEQ VISIT Reason for Visit and Comments: Medicare Annual Wellness Visit Subsequent [677] Normal [facility] Progress Noteon 11-12-2024 Progress Note - Chronic stable was taking simvastatin 80 mg daily but felt that that was too much and she was concerned about problems with her liver so she has been cutting in half and taking 40 mg daily. Will recheck her levels today but I believe this is reasonable enough as her levels have been adequately controlled Normal [facility] Progress Note - Chronic stable she will continue on esomeprazole 40 mg daily. Normal [facility] Progress Note - Chronic stable patient was recently treated for flareup with amoxicillin and prednisone she can take the prednisone she is requesting a lower dose Medrol Dosepak and a second round of antibiotics that she started in some generalized wheezing and congestion strongly encouraged smoking cessation. Normal [facility] Progress Note [facility] - [address] [facility] [address] Dept: [phone] Dept Chief Complaint: Ashley Gómez is an [...] will continue on esomeprazole 40 mg daily. Hypercholesterolemi a - Chronic stable was taking simvastatin 80 [...] PACKAGE FOR ADDITIONAL INSTRUCTIONS 12 tablet 3 dextromethorphan-gu aiFENesin (Robitussin-DM) 10-100 MG/5ML liquid 2 tsp QID [...] on 11/12/2024) 90 tablet 1 No current facility-administer ed medications for this visit. Also reviewed during [...] series) 11/12/2025 (Originally 2014) COVID-19 Vaccine ( - 2023- season) 2025 (Originally 05/05/2024) Depression Monitoring 05/15/2025 [...] chest pain. Ga (more content not included)... [facility] 36on 10-31-2024 36 S: Patient spoke with [facility] nurse regarding [...] not coughing Protocols used: Cough - Acute Imz-Jnhulupedp-FRUA T-AH [facility] Progress Noteon 10-31-2024 Progress Note [facility] - [address] [facility] [address] Dept: [phone] Dept Loc: [phone] Patient was identified and seen today via [...] stated that they are currently in the [facility]. If the patient is a minor, [...] 2 times daily for 10 doses. - dextromethorphan-gu aiFENesin (Robitussin-DM) 10-100 MG/5ML liquid; 2 tsp QID [...] orders. Gasper Nelson DO 10/31/2024 12:[address] [facility] 3610-01-2024 36 Received signed receipt of certified letter sent to patient. Scanned to media in chart. [facility] 09-30-2024 36 Recent Visits Date Type Provider Dept 02/22/24 Office Visit Gasper Nelson DO [facility] Showing recent visits within past 365 days and meeting all other requirements Future Appointments Date Type Provider Dept 11/12/24 Appointment Gasper Nelson DO [facility] Showing future appointments within next [...] recent labs completed in chart? N/A None [facility] 36on 09-16-2024 36 Recent Visits Date Type Provider Dept 02/22/24 Office Visit Gasper Nelson DO [facility] Showing recent visits within past 365 days and meeting all other requirements Future Appointments Date Type Provider Dept 09/30/24 Appointment Gasper Nelson DO [facility] Showing future appointments within next [...] CHOLHDLCRATI 4.2 01/13/2023 NONHDLCHOLES 174 (H) 01/13/2023 [facility] 36on 08-05-2024 36 Transferred to result notes [facility] 36 Message released to patient as written. Patient's further questions if applicable: NA Were all questions from office addressed or relayed to the patient from encounter: Yes [facility] 36 Placed call to patient. Unable to reach them by phone to discuss lab results. Left detailed message to return call to discuss results. Please release information to patient Normal [facility] 36 ----- Message from Juju Jennifer sent at 08/05/2024 7:36 AM EST ----- ----- Message ----- From: Gasper Nelson DO Sent: 08/04/2024 5:20 PM EST To: [facility] Clinical Pipefitter Helper Stable small pulmonary nodules and they now recommend recheck study in 1 year. As noted before she has moderate amount of emphysema. Normal [facility] CT LUNG SCREENING FOLLOW UP LOW DOSEon 07-31-2024 CT LUNG SCREENING FOLLOW UP LOW DOSE This is a summary report. The complete report is available in the patient's medical record. If you cannot access the medical record, please contact the sending organization for a detailed fax or copy. Patient Name: ASHLEY GÓMEZ : 1955 Exam Date/Time: 07/29/2024 11:38 Procedure: CT LUNG [...] 07/31/2024 2:02 PM EST F/U SCAN SMOKER [facility] 36on 07-24-2024 36 Recent Visits Date Type Provider Dept 02/22/24 Office Visit Gasper Nelson DO [facility] 07/31/23 Office Visit Gasper Nelson DO [facility] Showing recent visits within past 365 days and meeting all other requirements Future Appointments Date Type Provider Dept 08/21/24 Appointment Gasper Nelson DO [facility] Showing future appointments within next 90 [...] CHOLHDLCRATI 4.2 01/13/2023 NONHDLCHOLES 174 (H) 01/13/2023 [facility] 36on 06-28-2024 36 Reason for call: Pari, I am calling [...] to get her scheduled. Thank you Contact [facility] 36 No auth needed. Faxed orders to [facility]-Scheduling for pt to be sched - [facility] will sched/advise pt. My chart mess sent to patient with info to sched. [place] [address]on 06-27-2024 36 Vincent Perez, It looks like the patient navigator has done all that she can do. So it looks like all avenues have been exhausted to try and reach this patient to schedule. [facility] 36 To April to follow up [place] [address] Mrs. Gómez called in after receiving certified letter. She would like to return to complete the recommended lung screening 3 month follow-up imaging previously ordered by Dr. Nelson. Will send message to provider office to place new referral for imaging and assist patient with scheduling. She prefers [place] for imaging location and is available on Monday the if there are any appointments available. [place] [address]on 06-11-2024 36 RX loaded Next ov 08/21/24 [facility] 36 Medication name: traZODone (Desyrel) 150 MG tablet [...] to picking up the medication: Yes Normal [facility] Colonoscopy Reporton 024 Colonoscopy Report [facility] Medical Records Department [address] [place] [address] Colonoscopy Report MR#: [id number] Acct: [id number] Name: ASHLEY GÓMEZ Rep #: [id number] : 1955 68 From: Slim Weiss DO PCP: Dr. Danish Davila DO Status:REG SDC Patient Name: Ashley Gómez Procedure Date: 04/29/2024 [...] criteria for high risk CPT copyright 2021 [employer]. All rights reserved. The codes documented in this report are preliminary and upon operations supervisor 2nd shift review may be revised to meet current compliance requirements. Slim Weiss DO 04/29/2024 9:34:45 AM This report has been signed electronically. Number of Addenda: 0 Note Initiated On: 04/29/2024 8:54 AM 04/29/24 0934 Date Slim Weiss DO Cosigner Signature: Date (if indicated) CC: Dr. Danish Davila DO; Slim Weiss DO Date Dictated: 04/29/24 0854 Date Transcribed: Railroad Shop Inspector: WES Signed [facility] MR/POSTOP.Toro 04-29-2024 MR/POSTOP.[facility] Medical Records Department [address] [place] [address] Anesthesia Postop Eval I 04/29/24 1403 MR#: [id number] Acct: [id number] Name: ASHLEY GÓMEZ Rep #: [id number] : 1955 68 From: Supriya Valdovinos CRNA PCP: Dr. Danish Davila, DO Status:[facility] Race: C Location: EN Anesthesia: Postop Eval I Current Vital Signs [...] 1 completed: Yes 04/29/241403 Date Supriya Valdovinos CRNA Cosigner Signature: Date CC: Signed [facility]/[id number] 04-29-[address] Medical Records Department [place] [address] Anesthesia Postop Eval II 04/29/24 1341 MR#: [id number] Acct: [id number] Name: ASHLEY GÓMEZ Rep #: [id number] : 1955 68 From: David Valadez MD PCP: Dr. Danish Davila, DO Status:[facility] Race: C Location: EN Anesthesia Postop [...] Anesthesia Complication: No 04/29/24 1342 Date David Purdyigncarolyn Signature: Date CC: Signed [facility] 04-17-2024 36 Recent Visits Date Type Provider Dept 02/22/24 Office Visit Gasper Nelson DO [facility] 07/31/23 Office Visit Gasper Nelson DO [facility] Showing recent visits within past 365 [...] medications from any other provider? No None [facility] 04-12-2024 36 Orders cancelled [facility] 04-11-2024 36 We have been unable to reach your patient to schedule their testing. Test Name: CT lung screening follow up, PFT and Mammo 1st Attempt: 03/30/24 2nd Attempt: 04/11/24 Thanks, [facility] Central Scheduling [facility] Lipid 1996 panelon 4 Cholesterol [Mass/Vol] 162 mg/dL NINF - 200 mg/dL [facility] Cholesterol in HDL [Mass/Vol] 38 mg/dL Low 40 - 60 mg/dL [facility] Cholesterol in LDL [Mass/Vol] 106 mg/dL High 0 - <100 [facility] Cholesterol.total/Cholest adryan in HDL [Mass ratio] 4 {ratio} [facility] ealth Comment on above: Ref Range: < 3 Low Risk for CHD 3-6 Mod Risk for CHD > 6 High Risk for CHD Interpretation and review of laboratory results Abnormal [facility] Triglyceride [Mass/Vol] 91 mg/dL NINF - 150 mg/dL [facility] Absolute lymphocyte counton 01-31-2022 Lymphocytes Auto (Unsp spec) [#/Vol] 1.28 10*3/uL 0.83-4.51 [facility] Work Phone: Basophil percentageon 2021 Basophils/100 WBC (Bld) 0.3 % 0-1 [facility] Work Phone: [phone] Chloride [Moles/Vol] 100 mmol/L 98-107 [facility] Work Phone: [phone] Eosinophils/100 WBC (Bld) 0.0 % 0-5 [facility] Work Phone: [phone] Glucose [Mass/Vol] 153 mg/dL 74-106 [facility] Work Phone: [phone] Comment on above: Fasting Glucose resu lt greater than or equal to 126 mg/dL suggests DIABETES MELLITUS per A.D.A. criteria. Neutrophils (Bld) [#/Vol] 17.2 10*3/uL 2.0-7.7 [facility] Work Phone: [phone] Neutrophils/100 WBC (Bld) 88.5 % 47-70 [facility] Work Phone: [phone] Potassium [Moles/Vol] 3.2 mmol/L 3.5-5.1 [facility] Work Phone: [phone] Comment on above: Slight Hemolysis, Re sult may be falsely increased. Sodium [Moles/Vol] 135 mmol/L 136-145 [facility] Work Phone: WBC (Bld) [#/Vol] 19.4 10*3/uL 4.4-11.0 [facility] Work Phone: Blood erythrocytes count (nu mber/volume)on 01-31-2022 RBC (Bld) [#/Vol] 4.26 10*6/uL 4.2-5.4 [facility] Work Phone: Blood hemoglobin measurement (mass/volume)on 01-31-2022 Hemoglobin (Bld) [Mass/Vol] 12.5 g/dL 12.0-15.0 [facility] Work Phone: Blood lymphocytes/100 leukoc yteson 01-31-2022 Lymphocytes/100 WBC (Bld) 6.6 % 19-41 [facility] Work Phone: Blood monocytes/100 leukocyt eson 01-31-2022 Monocytes/100 WBC (Bld) 3.5 % 0-10 [facility] Work Phone: Blood platelet mean volumeon 01-31-2022 Platelet mean volume (Bld) [Entitic vol] 10.4 fL 6.2-12.0 [facility] Work Phone: Determination of erythrocyte mean corpuscular volume (MCV)on 01-31-2022 MCV (RBC) [Entitic vol] 88.0 fL 81-99 [facility] Work Phone: Hematocrit Auto (Bld) [Volum e fraction]on 01-31-2022 Hematocrit (Bld) [Volume fraction] 37.5 % 37-47 [facility] Work Phone: Laboratory - Chemistry and C hemistry - challengeon 01-31-2022 CO2 [Moles/Vol] 27.0 mmol/L 21.0-32.0 [facility] Work Phone: Urea nitrogen/Creatinine [Mass ratio] 22.0 mg/mg 10-20 [facility] Work Phone: Laboratory - Hematology and Cell countson 01-31-2022 Erythrocyte distribution width (RBC) [Entitic vol] 45.4 fL 35.1-43.9 [facility] Work Phone: Erythrocyte distribution width (RBC) [Ratio] 14.1 % 11.6-14.6 [facility] Work Phone: Immature granulocytes/100 WBC (Bld) 1.100 % 0.0-0.9 [facility] Work Phone: Comment on above: IG% - Immature Granu locytes (promyelocytes, myelocytes and metamyelocytes) > 1% indicates that a LEFT SHIFT is Present. MCH (RBC) [Entitic mass] 29.3 pg 27.0-32.0 [facility] Work Phone: Nucleated RBC/100 WBC (Bld) [Ratio] 0 % 0-5 [facility] Work Phone: MCHC Auto (RBC) [Mass/Vol]on 01-31-2022 MCHC (RBC) [Mass/Vol] 33.3 g/dL 32-36 [facility] Work Phone: No Panel Informationon 01-31 Estimated Creatinine Clearance Calc 49.62 ml/min [facility] Work Phone: Estimated GFR (MDRD) Amer 79 mL/min >60 [facility] Work Phone: Comment on above: GFR Calc Estimated GFR (MDRD) Non-Af Amer 65 mL/min >60 [facility] Work Phone: Comment on above: Non- GFR Calc SARS-CoV-2 & FLU Antigen (Rapid) [facility] Work Phone: Platelets bldon 01-31-2022 Platelets (Bld) [#/Vol] 188 10*3/uL 150-450 [facility] Work Phone: Serum or plasma calcium janneth urement (mass/volume)on 01-31-2022 Calcium [Mass/Vol] 9.4 mg/dL 8.5-10.1 [facility] Work Phone: Serum or plasma creatinine m easurement (mass/volume)on 01-31-2022 Creatinine [Mass/Vol] 0.91 mg/dL 0.55-1.02 [facility] Work Phone: Comment on above: The validity of the calculated GFR & GFRAA in patients over 70 years has not been determined. Clinical correlation is essential. Serum or plasma urea nitroge n measurement (mass/volume)on 01-31-2022 Urea nitrogen [Mass/Vol] 20 mg/dL 7-18 [facility] Work Phone: Thin prep Papanicolaou smear with manual screeningon 01-31-2022 Thin prep Papanicolaou smear with manual screening 8 5-15 [facility] Work Phone: DEXA Bone Density Axial Skel etonon 01-11-2022 Patient Name: ASHLEY GÓMEZ Bone Density ACCESSION EXAM DATE/TIME PROCEDURE ORDERING PROVIDER [id number] 01/11/2022 15:04 EDT OT Bone Density DEXA DO DAVILA PAUL E. Axial Skeleton CPT code 96799 Reason For Exam (OT Bone Density DEXA Axial Skeleton) . Report DXA BONE DENSITOMETRY: CLINICAL INDICATION: Asymptomatic post-menopausal status COMPARISON: None TECHNIQUE: Quantitative bone mineral densitometry of the hip and lumbar spine was performed with a dual energy x-ray observed absorptiometry device - HoloAcunote Horizon W. Regions of interest were obtained [...] estimated 10 year risk for a major osteoporosis-relate d fracture is 9.3 % and for a hip fracture is 2.3 %. (FRAX version 3.08). RECOMMENDATIONS: General recommendations for prevention of bone loss include: 8322-5167 mg calcium intake per day for adults [...] >/= 3% or a 10 year major osteoporosis-relate d fracture probability >/= 20% based on the [...] and Follow-up. [employer] Evidence-Based Summaries. [facility] [place]. 2017 Bone Density Report Report Dictated on --- Final --- Dictating Physician: MD SANTIAGO LAUREN B Signed Date and Time: 01/11/2022 4:03 pm Signed by: MD SANTIAGO LAUREN B Transcribed Date and Time: 01/11/2022 4:05 REBEKAH VERMA RAD Laine Santiago MD - 01/11/2022 Patient Name: ASHLEY GÓMEZ Bone Density ACCESSION EXAM DATE/TIME PROCEDURE ORDERING PROVIDER [id number] 01/11/2022 15:04 EDT OT Bone Density DEXA DO DAVILA PAUL E. Axial Skeleton CPT code 87006 Reason For Exam (OT Bone Density DEXA Axial Skeleton) . Report DXA BONE DENSITOMETRY: CLINICAL INDICATION: Asymptomatic post-menopausal status COMPARISON: None TECHNIQUE: Quantitative bone mineral densitometry of the hip and lumbar spine was performed with a dual energy x-ray observed absorptiometry device - Hol[employer] W. Regions of interest were obtained through [...] estimated 10 year risk for a major osteoporosis-relate d fracture is 9.3 % and for a hip fracture is 2.3 %. (FRAX version 3.08). RECOMMENDATIONS: General recommendations for prevention of bone loss include: 2949-5068 mg calcium intake per day for adults [...] >/= 3% or a 10 year major osteoporosis-relate d fracture probability >/= 20% based on the [...] and Follow-up. [employer] Evidence-Based Summaries. [facility] for Education and Research. 2017 Bone Density Report Report Dictated on --- Final --- Dictating Physician: MD SANTIAGO LAUREN B Signed Date and Time: 01/11/2022 4:03 pm Signed by: MD SANTIAGO LAUREN B Transcribed Date and Time: 01/11/2022 4:05 [facility] Work Phone: Radiology Study observation (narrative) [facility] Work Phone: DEXA Bone Density Axial Skel etonOrdered By: Laine Santiago on 01-11-2022 [facility] Work Phone: MG Breast Tomosynthesis Scr Blon 01-11-2022 MG Breast Tomosynthesis Scr Bl Patient [facility]: [id number] Mammography ACCESSION EXAM DATE/TIME PROCEDURE ORDERING PROVIDER [id number] 01/11/2022 15:01 EDT MG Breast Tomosynthesis DO DAVILA PAUL E. BI Scr CPT code 68031 10297 Reason For Exam (MG Breast Tomosynthesis BI [...] 20, 2013, bilateral screening mammogram performed at [facility]. TISSUE DENSITY: BIRADS B - There [...] images: BB's = Nipples; skin lesions Open tejon = Palpable Line = Scar 2D digital [...] Time: 01/13/2022 11:40 am Signed by: MD SANTIAGO LAUREN B [facility] OT Bone Density DEXA Axial S stephanie 01-11-2022 OT Bone Density DEXA Axial Skeleton Patient Name: ASHLEY GÓMEZ Bone Density ACCESSION EXAM DATE/TIME PROCEDURE ORDERING PROVIDER [id number] 01/11/2022 15:04 EDT OT Bone Density DEXA DO DAVILA PAUL E. Axial Skeleton CPT code 63084 Reason For Exam (OT Bone Density DEXA Axial Skeleton) . Report DXA BONE DENSITOMETRY: CLINICAL INDICATION: Asymptomatic post-menopausal status COMPARISON: None TECHNIQUE: Quantitative bone mineral densitometry of the hip and lumbar spine was performed with a dual energy x-ray observed absorptiometry device - HoloAcunote Horizon W. Regions of interest were obtained [...] estimated 10 year risk for a major osteoporosis-relate d fracture is 9.3 % and for a hip fracture is 2.3 %. (FRAX version 3.08). RECOMMENDATIONS: General recommendations for prevention of bone loss include: 3132-1447 mg calcium intake per day for adults [...] >/= 3% or a 10 year major osteoporosis-relate d fracture probability >/= 20% based on the [...] and Follow-up. [employer] Evidence-Based Summaries. [facility] [place] for Education and Research. 2017 Bone Density Report Report Dictated on Final Dictating Physician: MD SANTIAGO LAUREN B Signed Date and Time: 01/11/2022 4:03 pm Signed by: MD SANTIAGO LAUREN B Transcribed Date and Time: 01/11/2022 4:05 [facility] 10-23-2020 [facility] Telephone (GASTTW) ---- ASHLEY GÓMEZ ([id number]) 1955 F Date Time Provider Department 10/23/20 [...] Fully Assessed Reason for Visit: Schedule Evaluation [0113] Prescriptions as of 10/23/2020 Sig: HYDROCODONE 5 MG-ACETAMINOPHE* Take 0.5 tablets by mouth as * BENZONATATE 100 MG CAPSULE Take 1-2 capsules tid prn ESOMEPRAZOLE MAGNESIUM 40 MG * Take 40 mg by mouth. VENLAFAXINE 75 MG TABLET Take 75 mg by mouth once magaly* ATORVASTATIN 10 MG TABLET Take 10 mg by mouth once magaly* PHENOBARB-HYOSCYAMN -ATROPINE-* Take by mouth. Takes 1 to 2 * METOCLOPRAMIDE 10 MG TABLET Take 10 mg by mouth four time* LORAZEPAM 0.5 MG TABLET Take by mouth three times da* OXYCODONE-ACETAMINO PHEN 5 MG-* Take 1 tablet by mouth every * LORAZEPAM 0.5 MG TABLET Take by mouth three times da* METOPROLOL SUCCINATE ER 25 MG* Take 25 mg by mouth once magaly* MUCINEX ORAL Take by mouth. Problem List As Of Date 10/23/2020 Noted Resolved Hematemesis [K92.0] 11/10/2012 Encounter Status:Closed by GERMAN RAMIREZ MD on 10/23/20 Normal [facility] No Panel Information SARS-CoV-2 & FLU Antigen (Rapid) [facility] Work Phone: Vital Signs Date Time Vital Sign Value Performing Clinician Facility 02-17-2025 08:14-0400 Body temperature 98.2 [degF] Dr. Danish Davila DO Work Phone: [facility] 02-17-2025 08:14-0400 Diastolic blood pressure 54 mm[Hg] Dr. Danish Davila DO Work Phone: [facility] 02-17-2025 08:14-0400 Heart rate 76 /min Dr. Danish Davila DO Work Phone: [facility] 02-17-2025 08:14-0400 Respiratory rate 18 /min Dr. Danish Davila DO Work Phone: [facility] 02-17-2025 08:14-0400 SaO2% (BldA) [Mass fraction] 92 % Dr. Danish Davila DO Work Phone: [facility] 02-17-2025 08:14-0400 Systolic blood pressure 131 mm[Hg] Dr. Danish Davila DO Work Phone: [facility] 02-17-2025 04:32-0400 Inhaled oxygen flow rate 2 L/min Dr. Danish Davila DO Work Phone: [facility] 02-16-2025 15:06-0400 Body height 162.[address] Danish Davila DO Work Phone: [facility] 02-16-2025 15:06-0400 Body weight 52.[address] Danish Davila DO Work Phone: [facility] 02-15-2025 11:58-0400 Body mass index (BMI) [Ratio] 19.7 kg/m2 Dr. Danish Davila DO Work Phone: [facility] 02-15-2025 10:47-0400 Body temperature 98 [degF] Dr. Danish Davila DO Work Phone: [facility] 02-15-2025 10:47-0400 Diastolic blood pressure 68 mm[Hg] Dr. Danish Davila DO Work Phone: [facility] 02-15-2025 10:47-0400 Heart rate 87 /min Dr. Danish Davila DO Work Phone: [facility] 02-15-2025 10:47-0400 Respiratory rate 19 /min Dr. Danish Davila DO Work Phone: [facility] 02-15-2025 10:47-0400 SaO2% (BldA) [Mass fraction] 91 % Dr. Danish Davila DO Work Phone: [facility] 02-15-2025 10:47-0400 Systolic blood pressure 132 mm[Hg] Dr. Danish Davila DO Work Phone: [facility] 02-15-2025 10:30-0400 Inhaled oxygen flow rate 2 L/min Dr. Danish Davila DO Work Phone: [facility] 02-15-2025 08:30-0400 Body height 162.[address] Danish Davila DO Work Phone: [facility] 02-15-2025 08:30-0400 Body mass index (BMI) [Ratio] 19.5 kg/m2 Dr. Danish Davila DO Work Phone: [facility] 02-15-2025 08:30-0400 Body weight 51.[address] Danish Davila DO Work Phone: [facility] 11-12-2024 09:09-0400 Diastolic blood pressure 80 mm[Hg] Siomara Estrada PA-C Work Phone: [facility] 11-12-2024 09:09-0400 Systolic blood pressure 132 mm[Hg] Siomara Estrada PA-C Work Phone: [facility] 11-12-2024 08:38-0400 Body height 162.6 cm Siomara Falcono PA-C Work Phone: [facility] 11-12-2024 08:38-0400 Body mass index (BMI) [Ratio] 20.6 kg/m2 Siomara Falcono PA-C Work Phone: [facility] 11-12-2024 08:38-0400 Body temperature 97.2 [degF] Siomara Estrada PA-C Work Phone: [facility] 11-12-2024 08:38-0400 Body weight 54.43 kg Siomara Falcono PA-C Work Phone: [facility] 11-12-2024 08:38-0400 Heart rate 83 /min Siomara Falcono PA-C Work Phone: [facility] 11-12-2024 08:38-0400 SaO2% (BldA) [Mass fraction] 90 % Siomara Estrada PA-C Work Phone: [facility] 02-22-2024 12:58-0400 Body height 162.6 cm Gasper Nelson DO Work Phone: [facility] 02-22-2024 12:58-0400 Body mass index (BMI) [Ratio] 21.11 kg/m2 Gasper Nelson DO Work Phone: [employer] 02-22-2024 12:58-0400 Body temperature 97 [degF] Gasper Nelson DO Work Phone: [facility] 02-22-2024 12:58-0400 Body weight 55.79 kg Gasper Nelson DO Work Phone: [facility] 02-22-2024 12:58-0400 Diastolic blood pressure 74 mm[Hg] Gasper Nelson DO Work Phone: [facility] 02-22-2024 12:58-0400 Heart rate 71 /min Gasper Riveraa DO Work Phone: [facility] 02-22-2024 12:58-0400 SaO2% (BldA) [Mass fraction] 97 % Gasper Riveraa DO Work Phone: [facility] 02-22-2024 12:58-0400 Systolic blood pressure 115 mm[Hg] Gasper Nelson DO Work Phone: [facility] 07-31-2023 15:37-0500 Body height 162.6 cm Gasper Nelson DO Work Phone: [facility] 07-31-2023 15:37-0500 Body mass index (BMI) [Ratio] 20.53 kg/m2 Gasper Riveraa DO Work Phone: [facility] 07-31-2023 15:37-0500 Body temperature 97.81 [degF] Gasper Nelson DO Work Phone: [facility] 07-31-2023 15:37-0500 Body weight 54.25 kg Gasper Nelson DO Work Phone: [facility] 07-31-2023 15:37-0500 Diastolic blood pressure 78 mm[Hg] Gasper Riveraa DO Work Phone: [facility] 07-31-2023 15:37-0500 Heart rate 80 /min Gasper Riveraa DO Work Phone: [facility] 07-31-2023 15:37-0500 SaO2% (BldA) [Mass fraction] 94 % Gasper Riveraa DO Work Phone: [facility] 07-31-2023 15:37-0500 Systolic blood pressure 138 mm[Hg] Gasper Riveraa DO Work Phone: [facility] 01-13-2023 09:24-0400 Body height 162.6 cm Gasper Riveraa DO Work Phone: [facility] 01-13-2023 09:24-0400 Body mass index (BMI) [Ratio] 19.74 kg/m2 Gasper Nelson DO Work Phone: [facility] 01-13-2023 09:24-0400 Body temperature 97.5 [degF] Gasper Nelson DO Work Phone: [facility] 01-13-2023 09:24-0400 Body weight 52.16 kg Gasper Nelson DO Work Phone: [facility] 01-13-2023 09:24-0400 Diastolic blood pressure 73 mm[Hg] Gasper Nelson DO Work Phone: [facility] 01-13-2023 09:24-0400 Heart rate 89 /min Gasper Nelson DO Work Phone: [facility] 01-13-2023 09:24-0400 SaO2% (BldA) [Mass fraction] 99 % Gasper Nelson DO Work Phone: [facility] 01-13-2023 09:24-0400 Systolic blood pressure 118 mm[Hg] Gasper Nelson DO Work Phone: [facility] 11-14-2022 11:49-0400 Body height 162.6 cm Siomara Estrada PA-C Work Phone: [facility] 11-14-2022 11:49-0400 Body mass index (BMI) [Ratio] 20.6 kg/m2 Siomara Estrada PA-C Work Phone: [facility] 11-14-2022 11:49-0400 Body temperature 98.01 [degF] Siomara Estrada PA-C Work Phone: [facility] 11-14-2022 11:49-0400 Body weight 54.43 kg Siomara Estrada PA-C Work Phone: [facility] 11-14-2022 11:49-0400 Diastolic blood pressure 80 mm[Hg] Siomara Estrada PA-C Work Phone: [facility] 11-14-2022 11:49-0400 Heart rate 82 /min Siomara Estrada PA-C Work Phone: [facility] 11-14-2022 11:49-0400 SaO2% (BldA) [Mass fraction] 95 % Siomara Estrada PA-C Work Phone: [facility] 11-14-2022 11:49-0400 Systolic blood pressure 138 mm[Hg] Siomara Estrada PA-C Work Phone: [facility] 10-03-2022 08:39-0500 Body height 162.6 cm Danish Monteso DO Work Phone: [facility] 10-03-2022 08:39-0500 Body mass index (BMI) [Ratio] 20.63 kg/m2 Danish Monteso DO Work Phone: [facility] 10-03-2022 08:39-0500 Body temperature 97.11 [degF] Danish Davila DO Work Phone: [facility] 10-03-2022 08:39-0500 Body weight 54.52 kg Danish Carmonajohno DO Work Phone: [facility] 10-03-2022 08:39-0500 Diastolic blood pressure 63 mm[Hg] Danish Davila DO Work Phone: [employer] 10-03-2022 08:39-0500 Heart rate 74 /min Danish Davila DO Work Phone: [facility] 10-03-2022 08:39-0500 SaO2% (BldA) [Mass fraction] 93 % Danish Monteso DO Work Phone: [facility] 10-03-2022 08:39-0500 Systolic blood pressure 118 mm[Hg] Danish Monteso DO Work Phone: [facility] 01-31-2022 09:50-0400 Body temperature 99.4 [degF] [place] Work Phone: 01-31-2022 09:50-0400 Diastolic blood pressure 97 mm[Hg] [facility] Work Phone: 01-31-2022 09:50-0400 Heart rate 100 /min [facility] Work Phone: 01-31-2022 09:50-0400 Respiratory rate 18 /min [place] Work Phone: 01-31-2022 09:50-0400 SaO2% (BldA) [Mass fraction] 96 % [facility] Work Phone: 01-31-2022 09:50-0400 Systolic blood pressure 116 mm[Hg] [facility] Work Phone: 01-31-2022 09:20-0400 Body height 160.02 cm [facility] Work Phone: 01-31-2022 09:20-0400 Body mass index (BMI) [Ratio] 21.2 kg/m2 [facility] Work Phone: 01-31-2022 09:20-0400 Body weight 54.43 kg [facility] Work Phone: Encounters Encounter Date Encounter Type Care Provider Facility Start: 03-02-2025 ambulatory [facility] Facility: [facility] Start: 02-24-2025 End: 02-24-2025 Refill Gasper Nelson DO Work Phone: [facility] Start: 02-16-2025 Non-patient / Non-visit Dr. Malaika Avilez DO -[facility] Work Phone: Start: 02-15-2025 Non-patient / Non-visit Dr. Malaika Avilez DO [facility] Work Phone: Start: 02-15-2025 ambulatory Bunny Eisenberg y:[facility] Start: 02-15-2025 End: 02-17-2025 Evaluation and management of inpatient Dr. Bunny Avilez DO -[facility] 3 Work Phone: Start: 02-10-2025 End: 02-10-2025 Orders Only Gasper Nelson DO Work Phone: [facility] [employer] Comment on above: Chronic obstructive pulmonary disease with acute exacerbation (HCC) Release of Informati on Other insomnia Start: 02-09-2025 End: 02-10-2025 Refill Siomara Estrada PA-C Work Phone: [facility] [employer] Comment on above: Chronic obstructive pulmonary disease with acute exacerbation (HCC) Start: 12-13-2024 End: 12-13-2024 Refill Gasper Nelson DO Work Phone: [facility] [employer] Start: 11-20-2024 End: 12-02-2024 Refill Gasper Nelson DO Work Phone: [facility] [employer] Comment on above: Other insomnia Start: 11-12-2024 End: 11-12-2024 Assay of hemosiderin, quant Siomara Estrada PA-C Work Phone: [facility] Work Phone: Start: 11-12-2024 End: 11-12-2024 Patient encounter procedure Siomara Estrada PA-C Work Phone: [facility] [employer] Comment on above: Routine general medi olga lidia examination at health care facility (Primary Dx); Encounter for screening mammogram for malignant neoplasm of breast; Hypercholesterolemia; Chronic obstructive pulmonary disease with acute exacerbation (HCC); Gastroesophageal reflux disease without esophagitis Start: 11-12-2024 End: 11-12-2024 ambulatory [facility] Start: 11-12-2024 End: 11-12-2024 Encounter for general adult medical examination without abnormal findings [facility] Start: 10-31-2024 End: 10-31-2024 Patient encounter procedure Michell Chin RN [facility] Start: 10-31-2024 End: 10-31-2024 ambulatory Michell Chin RN [facility] Start: 10-31-2024 End: 10-31-2024 Office outpatient visit 15 minutes Gasper Nelson DO Work Phone: [facility] Comment on above: Chronic obstructive pulmonary disease with acute exacerbation (HCC) (Primary Dx); Influenza Start: 09-28-2024 End: 09-30-2024 Refill [facility] Start: 09-14-2024 End: 09-16-2024 Refill [facility] Start: 07-29-2024 End: 07-29-2024 ambulatory [facility] Start: 07-29-2024 End: 07-29-2024 Subsequent hospital visit by physician Gasper Maggie Nelson Work Phone: [facility] Comment on above: Abnormal CT scan of lung; Smoker Start: 07-24-2024 End: 07-24-2024 Refill Gasper [facility] DO Work Phone: [facility] Start: 06-28-2024 End: 07-01-2024 Telephone encounter Gasper Nelson DO Work Phone: [facility] Start: 06-11-2024 End: 06-11-2024 Refill Gasper [facility] DO Work [facility]: [facility] Start: 04-29-2024 End: 04-29-2024 ambulatory [facility] Facility:[facility] Start: 04-23-2024 End: 06-20-2024 Telephone encounter Joann Jane [facility] Comment on above: Care Coordination (L aldair Screening Follow up reminder - certified letter sent ) Start: 04-17-2024 End: 04-17-2024 Refill Gasper Nelson DO Work Phone: [facility] Start: 04-11-2024 End: 04-11-2024 Telephone encounter Gasper Nelson DO Work Phone: [facility] Comment on above: Other (Scheduling at [facility]) Start: 03-20-2024 ambulatory Danish Davila [place] [facility] Start: 02-22-2024 End: 02-22-2024 Telephone encounter Gasper Maggie Argentina DO Work Phone: [facility] Comment on above: Referral (Dr Weiss) Start: 02-22-2024 End: 02-22-2024 Office outpatient visit 25 minutes Gasper Nelson DO Work Phone: [facility] Comment on above: Chronic obstructive pulmonary disease, unspecified COPD type (HCC) (Primary Dx); Abnormal CT scan of lung; Hypercholesterolemia; Colon cancer screening; Breast cancer screening by mammogram; Depression, unspecified depression type; Gastroesophageal reflux disease without esophagitis; Ex-smoker for less than 1 year Start: 02-05-2024 Telephone encounter Gasper byrnes DO Work Phone: [facility] Comment on above: Results Start: 01-02-2024 Refill Gasper Serrano Puneet cama DO Work Phone: [facility] Start: 01-01-2024 Orders Only Gasper Serrano Puneet cama DO Work Phone: [facility] Start: 12-24-2023 Orders Only Gasper Maggie Puneet lla DO Work Phone: [facility] Start: 12-22-2023 Telephone encounter Gasper Magdalenoridorinaa DO Work Phone: [facility] Comment on above: Appointment ([facility]) Start: 12-21-2023 Orders Only Gasper Serrano Puneet lla DO Work Phone: [facility] Comment on above: COPD with acute exac erbation (HCC); Lower resp. tract infection Start: 12-18-2023 End: 12-18-2023 Subsequent hospital visit by physician Gasper Nelson DO Work Phone: [facility] Comment on above: Smoker; Moderate smoker (20 or less per day) Start: 12-17-2023 Refill Gasper vargas DO Work Phone: [facility] Start: 08-01-2023 Telephone encounter Gasper byrnes DO Work Phone: [facility] Comment on above: Orders (LDCT due in November 2023) Start: 07-31-2023 End: 07-31-2023 Office outpatient visit 15 minutes Gasper Nelson DO Work Phone: [facility] Comment on above: Chronic obstructive pulmonary disease, unspecified COPD type (HCC) (Primary Dx); Depression, unspecified depression type; Gastroesophageal reflux disease without esophagitis; Hypercholesterolemia Start: 03-14-2023 Telephone encounter Gasper byrnes DO Work Phone: [facility] Comment on above: Handicap Placard Start: 02-27-2023 Telephone encounter Gasper byrnes DO Work Phone: [facility] Comment on above: Scheduling Start: 01-15-2023 Orders Only Gasper vargas DO Work Phone: [facility] Start: 01-13-2023 Telephone encounter Gasper byrnes DO Work Phone: [facility] Comment on above: Orders (LDCT) Start: 01-13-2023 End: 01-13-2023 Office outpatient visit 25 minutes Gasper Nelson DO Work Phone: [facility] Comment on above: Chronic obstructive pulmonary disease, unspecified COPD type (HCC) (Primary Dx); Hypercholesterolemia; Gastroesophageal reflux disease without esophagitis; Smoker; Depression, unspecified depression type Start: 11-14-2022 ambulatory [facility] Start: 11-14-2022 Patient encounter [facility] Start: 11-14-2022 End: 11-14-2022 Office outpatient visit 25 minutes Siomara Estrada PA-C Work Phone: [facility] Comment on above: COPD with acute exac erbation (CMS/HCC) (HCC) (Primary Dx); Lower resp. tract infection; Smoking Start: 10-24-2022 End: 10-24-2022 ambulatory [facility] Work Phone: Start: 10-24-2022 End: 10-24-2022 Patient encounter procedure [facility] Start: 10-20-2022 Telephone encounter Danish berumen DO Work Phone: [facility] Comment on above: Orders Start: 10-17-2022 Telephone encounter Danish berumen DO Work Phone: [facility] Comment on above: Orders (Fax 10/03/22 XR Chest SULAIMAN, Pt at [facility]) Start: 10-04-2022 Telephone encounter Danish berumen DO Work Phone: [facility] Comment on above: Advice Only (cough) Start: 10-03-2022 End: 10-03-2022 Patient encounter procedure Danish Davila DO Work Phone: [facility] Comment on above: Medicare annual well ness visit, subsequent (Primary Dx); Cough, unspecified type; Chronic obstructive pulmonary disease, unspecified COPD type (HCC); Anxiety; Depression, unspecified depression type; Hypercholesterolemia; Mammogram declined; Colonoscopy refused Start: 04-22-2022 End: 04-22-2022 ambulatory [facility] Work Phone: Start: 04-22-2022 End: 04-22-2022 Patient encounter procedure [facility] Start: 01-31-2022 End: 01-31-2022 Emergency department patient visit [facility] Start: 01-11-2022 End: 01-11-2022 Subsequent hospital visit by physician Danish Davila DO Work Phone: [facility] Comment on above: Menopause Start: 01-10-2022 End: 01-10-2022 Patient encounter procedure [facility] Procedures Date Procedure Procedure Detail Performing Clinician Start: 02-17-[address] Danish Davila DO Work Phone: Start: 02-15-2025 Plain chest X-ray Dr. Yair Davila DO Work Phone: Start: 02-15-[address] Danish Davila DO Work Phone: Start: 04-29-2024 Colonoscopy Gasper godinez DO Work [...] miriam dy 1/> sites axial skel Danish Davila DO Work Phone: Start: 01-11-2022 Mammography Jolanta Six R N Start: 01-10-2022 Plain chest X-ray Start: 06-04-2021 Lipid 1996 panel - S anabel or Plasma Danish Davila DO Work Phone: SARS-CoV-2 & FLU Ant igen (Rapid) Plan of Treatment Date Care Activity Detail Author Start: 04-29-2034 Screening for malignant neoplasm of colon [facility] Start: 12-17-2028 Lipid panel Lipid Panel [facility] Start: 01-14-2028 Lipid panel Lipid Panel [facility] Start: 06-04-2026 Lipid panel Lipid Panel [facility] Start: 11-12-2025 COVID-19 Vaccine ( season) COVID-19 Vaccine ( season) [facility] Comment on above: Postponed from 05/05/2024 (Patient Refus ed) Start: 11-12-2025 RSV Immunization for Adults (1 - Risk 60-74 years 1-dose series) RSV Immunization for Adults (1 - Risk 60-74 years 1-dose series) [facility] Comment on above: Postponed from 2014 (Patient Refus ed) Start: 05-15-2025 Depression Monitoring Depression Monitoring [facility] Start: 05-12-2025 End: 05-12-2025 Patient encounter procedure [facility] Primary [facility] Start: 05-05-2025 Influenza vaccination Influenza Vaccine (Season Ended) [facility] Start: 03-03-2025 Influenza vaccination Influenza Vaccine (#1) [facility] Comment on above: Postponed from 05/05/2024 (Patient Refus ed) Start: 02-17-2025 Patient discharge [facility] Start: 02-15-2025 Following clinical pathway protocol [facility] Start: 02-15-2025 Ambulation without limitation [facility] Start: 02-15-2025 Assessment of risk of venous thromboembolism [facility] Start: 02-15-2025 Catheterization of vein [facility] Start: 02-15-2025 Insertion of catheter into peripheral vein [facility] Start: 02-15-2025 Oxygen therapy [facility] Start: 02-15-2025 Providing care according to standard [facility] Start: 02-15-2025 Verification routine [facility] Start: 02-15-2025 Admission procedure [facility] Start: 02-15-2025 Hospital admission, emergency, from emergency room, medical nature [facility] Start: 02-15-2025 End: 02-15-2025 [facility] Start: 02-15-2025 [facility] Start: 02-15-2025 Inhalation therapy procedure [facility] Start: 11-12-2024 End: 11-12-2025 CBC W Auto Differential panel - Blood CBC auto differential Lab Routine Routine general medical examination at health care facility Hypercholesterolemia Expected: 11/12/2024 (Approximate), Expires: 11/12/2025 [facility] Comment on above: Expected: 11/12/2024 (Approximate), Expi res: 11/12/2025 Start: 11-12-2024 End: 11-12-2025 Comprehensive metabolic 1998 panel - Serum or Plasma Comprehensive metabolic panel Lab Routine Routine general medical examination at health care facility Hypercholesterolemia Expected: 11/12/2024 (Approximate), Expires: 11/12/2025 [facility] Comment on above: Expected: 11/12/2024 (Approximate), Expi res: 11/12/2025 Start: 11-12-2024 End: 01-12-2026 DBT Breast - bilateral screening Bilateral screening mammogram with tomosynthesis Imaging Routine Encounter for screening mammogram for malignant neoplasm of breast Expected: 11/12/2024, Expires: 01/12/2026 [facility] Work Phone: Comment on above: Expected: 11/12/2024, Expires: Start: 11-12-2024 End: 11-12-2025 Lipid 1996 panel - Serum or Plasma Lipid panel Lab Routine Hypercholesterolemia Expected: 11/12/2024 (Approximate), Expires: 11/12/2025 [facility] Comment on above: Expected: 11/12/2024 (Approximate), Expi res: 11/12/2025 Start: 11-12-2024 End: 11-12-2024 Patient encounter procedure [facility] [place] Start: 09-30-2024 End: 09-30-2024 Patient encounter procedure 09/30/2024 4:00 PM EST Office Visit [facility] [place] [address] [place] [address] Gasper Nelson DO [address] [place] [address] [facility] [place] Start: 09-04-2024 Medicare Advantage Annual Wellness Visit Medicare Advantage Annual Wellness Visit [facility] Start: 08-21-2024 End: 08-21-2024 Patient encounter procedure [facility] Start: 07-29-2024 End: 07-29-2024 Patient encounter procedure 07/29/2024 11:30 AM EST Appointment [facility] [address] [place] [address] Gasper Nelson, DO [address] [place] [address] [facility] Start: 07-29-2024 Subsequent hospital visit by physician 07/29/2024 11:30 AM EST Hospital Encounter [facility] [address] [place] [address] Gasper Nelson, DO [address] [place] [address] [facility] Start: 05-05-2024 COVID-19 Vaccine ( season) COVID-19 Vaccine ( season) [facility] Start: 05-05-2024 COVID-19 Vaccine ( season) COVID-19 Vaccine ( season) [facility] Start: 05-05-2024 Influenza vaccination [facility] Start: 04-29-2024 End: 04-29-2024 Patient encounter procedure 04/29/2024 4:00 PM EDT Office Visit [facility] [address] [place] [address] Gasper Nelson, DO [address] [place] [address] [facility] Start: 02-24-2024 Screening for malignant neoplasm of colon [facility] Start: 02-22-2024 End: 02-21-2025 CBC W Auto Differential panel - Blood CBC auto differential Lab Routine Chronic obstructive pulmonary disease, unspecified COPD type (HCC) Expected: 02/22/2024 (Approximate), Expires: 02/21/2025 [facility] Comment on above: Expected: 02/22/2024 (Approximate), Expi res: 02/21/2025 Start: 02-22-2024 End: 02-21-2025 Complete PFT pre and post bronchodilator Complete PFT pre and post bronchodilator PFT Routine Chronic obstructive pulmonary disease, unspecified COPD type (HCC) Expected: 02/22/2024 (Approximate), Expires: 02/21/2025 [facility] Comment on above: Expected: 02/22/2024 (Approximate), Expi res: 02/21/2025 Start: 02-22-2024 End: 02-21-2025 Comprehensive metabolic 1998 panel - Serum or Plasma Comprehensive metabolic panel Lab Routine Chronic obstructive pulmonary disease, unspecified COPD type (HCC) Expected: 02/22/2024 (Approximate), Expires: 02/21/2025 [facility] Comment on above: Expected: 02/22/2024 (Approximate), Expi res: 02/21/2025 Start: 02-22-2024 End: 02-21-2025 CT Chest for screening WO contrast CT lung screening follow up low dose Imaging Routine Abnormal CT scan of lung Smoker Expected: 02/22/2024, Expires: 02/21/2025 [facility] Work Phone: Comment on above: Expected: 02/22/2024, Expires: Start: 02-22-2024 End: 04-23-2025 DBT Breast - bilateral screening Bilateral screening mammogram with tomosynthesis Imaging Routine Breast cancer screening by mammogram Expected: 02/22/2024, Expires: 04/23/2025 [facility] Work Phone: Comment on above: Expected: 02/22/2024, Expires: Start: 02-22-2024 End: 02-22-2024 Patient encounter procedure 02/22/2024 1:00 PM EDT Office Visit [facility] [address] [place] [address] Gasper Nelson DO [address] [place] [address] [facility] Start: 02-14-2024 Screening for malignant neoplasm of colon [facility] Start: 02-05-2024 End: 02-05-2024 Patient encounter procedure 02/05/2024 9:00 AM EDT Office Visit [facility] [address] [place] [address] Gasper Nelson, DO [address] [place] [address] [facility] Start: 01-22-2024 End: 01-22-2024 Patient encounter procedure 01/22/2024 10:00 AM EDT Office Visit [facility] [address] [place] [address] Gasper Nelson, DO [address] [place] [address] [facility] Start: 11-02-2023 Medicare Advantage Annual Wellness Visit (AWV) Medicare Advantage Annual Wellness Visit (AWV) [facility] Start: 10-03-2023 Depression Screening Depression Screening [facility] Start: 09-04-2023 Medicare Advantage Annual Wellness Visit Medicare Advantage Annual Wellness Visit [facility] Start: 08-01-2023 End: 08-01-2024 CT Chest for screening WO contrast CT lung screening low dose Imaging Routine Smoker Moderate smoker (20 or less per day) Expected: 08/01/2023, Expires: 08/01/2024 [facility] Work Phone: Comment on above: Expected: 08/01/2023, Expires: Start: 07-31-2023 End: 07-31-2024 Lipid 1996 panel - Serum or Plasma Lipid panel Lab Routine Hypercholesterolemia Expected: 07/31/2023 (Approximate), Expires: 07/31/2024 [facility] Work Phone: Comment on above: Expected: 07/31/2023 (Approximate), Expi res: 07/31/2024 Start: 07-14-2023 End: 07-14-2023 Patient encounter procedure [facility] Start: 05-05-2023 COVID-19 Vaccine ( season) COVID-19 Vaccine ( season) [facility] Start: 05-05-2023 Influenza vaccination Influenza Vaccine (#1) [facility] Start: 04-03-2023 End: 04-03-2023 Patient encounter procedure 04/03/2023 1:15 PM EDT Appointment [facility] CT [address] [place] [id number] Gasper Nelson, DO [address] [place] [address] [facility] CT Start: 04-02-2023 Depression Monitoring Depression Monitoring [facility] Start: 01-23-2023 End: 01-23-2023 Patient encounter procedure 01/23/2023 Office Visit Family Medicine Kelsie Lisa, PLASTICS PROCESS HAND - STUDENT FINANCE ADVISOR [address] [place], [place] [id number] [facility] Start: 01-13-2023 End: 01-14-2024 CBC W Auto Differential panel - Blood CBC auto differential Lab Routine Smoker Expected: 01/13/2023 (Approximate), Expires: 01/14/2024 [facility] Work Phone: Comment on above: Expected: 01/13/2023 (Approximate), Expi res: 01/14/2024 Start: 01-13-2023 End: 01-14-2024 Comprehensive metabolic 1998 panel - Serum or Plasma Comprehensive metabolic panel Lab Routine Hypercholesterolemia Expected: 01/13/2023 (Approximate), Expires: 01/14/2024 [facility] Comment on above: Expected: 01/13/2023 (Approximate), Expi res: 01/14/2024 Start: 01-13-2023 End: 01-14-2024 CT Chest for screening WO contrast CT lung screening low dose Imaging Routine Smoker Expected: 01/13/2023, Expires: 01/14/2024 [facility] Work Phone: Comment on above: Expected: 01/13/2023, Expires: Start: 01-13-2023 End: 01-14-2024 Lipid 1996 panel - Serum or Plasma Lipid panel Lab Routine Hypercholesterolemia Expected: 01/13/2023 (Approximate), Expires: 01/14/2024 [facility] Comment on above: Expected: 01/13/2023 (Approximate), Expi res: 01/14/2024 Start: 01-13-2023 End: 01-14-2024 Thyrotropin [Units/volume] in Serum or Plasma TSH Lab Routine Hypercholesterolemia Expected: 01/13/2023 (Approximate), Expires: 01/14/2024 [facility] Comment on above: Expected: 01/13/2023 (Approximate), Expi res: 01/14/2024 Start: 01-11-2023 Screening for malignant neoplasm of breast Mammogram [facility] Start: 01-05-2023 Annual Wellness Visit (AWV) Annual Wellness Visit (AWV) [facility] Start: 12-24-2022 Depression Monitoring Depression Monitoring [facility] Start: 10-18-2022 End: 10-18-2023 Alanine aminotransferase [Enzymatic activity/volume] in Serum or Plasma ALT Lab Routine Hypercholesterolemia Expected: 10/18/2022 (Approximate), Expires: 10/18/2023 [facility] Comment on above: Expected: 10/18/2022 (Approximate), Expi res: 10/18/2023 Start: 10-18-2022 End: 10-18-2023 Aspartate aminotransferase [Enzymatic activity/volume] in Serum or Plasma AST Lab Routine Hypercholesterolemia Expected: 10/18/2022 (Approximate), Expires: 10/18/2023 [facility] Comment on above: Expected: 10/18/2022 (Approximate), Expi res: 10/18/2023 Start: 10-18-2022 End: 10-18-2023 Lipid 1996 panel - Serum or Plasma Lipid panel Lab Routine Hypercholesterolemia Expected: 10/18/2022 (Approximate), Expires: 10/18/2023 [facility] Comment on above: Expected: 10/18/2022 (Approximate), Expi res: 10/18/2023 Start: 10-03-2022 End: 10-03-2023 XR Chest 2 Views XR chest 2 views Imaging Routine Cough, unspecified type Expected: 10/03/2022, Expires: 10/03/2023 [facility] Work Phone: Comment on above: Expected: 10/03/2022, Expires: Start: 06-04-2022 Lipid panel Lipids [facility] Start: 04-18-2022 End: 04-18-2022 Patient encounter procedure 04/18/2022 Office Visit Family Medicine Danish Davila, DO [address] [place] [id number] [facility] Start: 02-03-2022 Pneumococcal 65+ years Vaccine (2 - PCV) Pneumococcal 65+ years Vaccine (2 - PCV) [facility] Start: 02-03-2022 Pneumococcal Vaccine: 65+ Years (2 - PCV) Pneumococcal Vaccine: 65+ Years (2 - PCV) [facility] Start: 01-31-2022 [facility] Work Phone: Start: 2014 RSV Immunization aged 60 or older (1 - 1-dose 60+ series) RSV Immunization aged 60 or older (1 - 1-dose 60+ series) [facility] Start: 2014 RSV Immunization for Adults (1 - Risk 60-74 years 1-dose series) RSV Immunization for Adults (1 - Risk 60-74 years 1-dose series) [facility] Start: 2009 Screening for osteoporosis DEXA (modify frequency per FRAX score) [facility] Start: 2004 Screening for malignant neoplasm of breast Breast cancer screen [facility] Start: 2004 Shingles vaccine (1 of 2) Shingles vaccine (1 of 2) [facility] Start: 2004 Zoster Vaccines (1 of 2) Zoster Vaccines (1 of 2) [facility] Start: 1999 Screening for malignant neoplasm of colon [facility] Start: 1973 DTaP/Tdap/Td vaccine (1 - Tdap) DTaP/Tdap/Td vaccine (1 - Tdap) [facility] Start: 1973 DTaP/Tdap/Td Vaccines (1 - Tdap) DTaP/Tdap/Td Vaccines (1 - Tdap) [facility] Start: 1972 Hepatitis C screening [facility] Start: 1954 Hepatitis B Vaccines (1 of 3 - 3-dose series) Hepatitis B Vaccines (1 of 3 - 3-dose series) [facility] Start: 1955 Screening for malignant neoplasm of colon [facility] End: 12-18-2023 CT Chest for screening WO contrast [facility] Work Phone: Comment on above: Once for 1 Occurrences starting 12/18/19 until 12/18/2023 End: 07-29-2024 CT Chest for screening WO contrast [facility] Work Phone: Comment on above: Once for 1 Occurrences starting 07/29/20 until 07/29/2024 OUTSIDE PROCEDURE SCAN OUTSIDE P ROCEDURE SCAN Procedures Ordered: 12/15/2023 [facility] Comment on above: Ordered: 12/15/2023 Patient Education ED Pneumonia (Adult) [facility] Work Phone: Patient referral [facility] Work Phone: End: 01-11-2022 Screening digital breast tomosynthesis bi [facility] Work Phone: Comment on above: Once for 1 Occurrences starting 01/12/20 until 01/11/2022 Immunizations Immunization Date Immunization Notes Care Provider Emily vora 01-13-2023 Pneumococcal Conjuga te PCV20, Pf (Prevnar 20) Gasper Puneetsam DO Work Phone: [facility] 05-26-2022 Covid-19, Pfizer Bivalent Booster, (Age 12y+), Im, 30 Mcg/0e Gasper Nelson DO Work Phone: [facility] 05-26-2022 Influenza, High-dose Seasonal, Quadrivalent, Preservative Free Gasper Nelson DO Work Phone: [facility] 05-26-2022 influenza virus vacc ine, unspecified formulation Gasper Teixeirasam DO Work Phone: [facility] 12-11-2021 Covid-19, Pfizer Gra y Top, Do Not Dilute, (Age 12 Y+), Im, L Jolanta Glover RN [facility] 06-28-2021 Pfizer SARS-CoV-2 Vaccination Jolanta Glover RN [facility] 06-04-2021 Influenza, High-dose , Quadv, 65 yrs +, IM (Fluzone) Danish Davila DO Work Phone: [facility] Work Phone: 02-03-2021 pneumococcal polysaccharide vaccine, 23 valent Danish Carmonasachavasile DO Work Phone: [facility] Work Phone: 10-14-2020 COVID-19, Pfizer Pur ple top, DILUTE for use, 12+ yrs, 30mcg/0.3mL dose Danish Carmonasachavasile DO Work Phone: [facility] Work Phone: 09-23-2020 COVID-19, Pfizer Pur ple top, DILUTE for use, 12+ yrs, 30mcg/0.3mL dose Danish Carmonasachavasile DO Work Phone: [facility] 09-25-2013 hepatitis B vaccine, pediatric or pediatric/adolescent dosage [facility] 05-05-2013 Influenza virus vaccine [facility] 05-05-2013 influenza, seasonal, injectable Gasper Teixeirasam DO Work Phone: [facility] 09-04-2009 Pneumococcal Vaccine [facility] Work Phone: 09-04-2009 pneumococcal vaccine , unspecified formulation [facility] 07-14-2009 novel influenza-H1N1 -09, preservative-free, injectable Gasper Teixeiradorinaki DO Work Phone: [facility] 11-28-2008 hepatitis B vaccine, pediatric or pediatric/adolescent dosage Gasper Nelson DO Work Phone: [facility] 06-02-2008 hepatitis B vaccine, pediatric or pediatric/adolescent dosage Gasper Argentina DO Work Phone: [facility] 05-02-2008 hepatitis B vaccine, pediatric or pediatric/adolescent dosage Gasper Argentina DO Work Phone: [facility] Payers Date Payer Category Payer Self-pay [id number] 2019 Medicare HU[employer]NA MEDICARE ADVANTAGE HU[employer]NA MEDICARE [id number] 2019-Present [address] [place], [place] [id number] Medicare O [id number] 2019 Medicare HMO [employer] MEDICARE [id number] 2019 Medicare [id number] Unknown [id number] Unknown [id number] 2 Unknown [id number] 2 Unknown [id number] 2 Unknown [id number] 2 Unknown [id number] 2 Unknown [id number] 2 Unknown [id number] 2 Unknown [id number] 2 Social History Date Type Detail Facility Start: 09-24-2019 End: 02-22-2024 Tobacco smoking status NHIS Smokes tobacco daily [facility] Work Phone: Start: 09-24-2019 History of tobacco use Cigarette Smo ker [facility] Work Phone: Start: 03-24-2020 End: 11-12-2024 Cigarettes smoked current (pack per day) - Reported 1 [facility] Work Phone: Start: 03-24-2020 End: 02-22-2024 Tobacco use and exposure Smokeless tobacco non-user [facility] Phone: Start: 12-24-2021 End: 02-10-2025 Alcohol intake Ex-drinker (finding) [facility] Phone: Start: 05-06-2021 End: 01-04-2022 History SDOH Alcohol Frequency 1 [facility] Phone: Start: 03-24-2020 History SDOH Social Connections Phone 2 [facility] Phone: Start: 03-24-2020 History SDOH Social Connections Islam 3 [facility] Phone: Start: 03-24-2020 History SDOH Social Connections Living 4 [facility] Phone: Start: 01-04-2022 History SDOH Physica l Activity DPW 0 [facility] Phone: Start: 1955 Sex Assigned At Female [facility] Start: 07-19-2015 End: 01-31-2022 Tobacco smoking status NHIS Unknown if ever smoked [facility] Start: 05-23-2014 None [facility] Start: 05-07-2021 Homeless [facility] Start: 05-07-2021 Non-smoker [facility] Start: 11-04-2022 End: 01-13-2023 Exposure to SARS-CoV-2 (event) Not sure [facility] Start: 01-13-2023 End: 11-12-2024 Tobacco use panel [facility] Start: 06-23-2022 Gender identity Identifies as female gender (finding) [facility] Start: 06-23-2022 Sexual orientation Heterosexual (homar you) [facility] Start: 04-04-2022 Sex Female (finding) [facility] How often do you nee d to have someone help you when you read instructions, pamphlets, or other written material from your doctor or pharmacy [SILS] Never [facility] Has the [employer], or [employer] threatened to shut off services in your home in past 12Mo No [facility] Are you now , , , , never or living with a partner? [facility] How often to you hav e a drink containing alcohol? Never [facility] Do you feel stress - tense, restless, nervous, or anxious, or unable to sleep at night because your mind is troubled all the time - these days [OSQ] Not at all [facility] (I/We) worried whesanti er (my/our) food would run out before (I/we) got money to buy more. Never true [facility] Goals Date Patient Goal Desired Activity /State Functional Status Date Assessment Result Facility 02-17-2025 Functional status Ambulates [facility] Work Phone: Mental Status Date Assessment Result Facility 02-17-2025 Cognitive function Voice/Name [facility] Work Phone: Clinical Notes 10-03-2022 to 02-24-2025 Telephone Encounter - Juju Patton MA - 02/24/2025 11:05 AM EDTTelephone Encounter - Juju Patton MA - 02/24/2025 11:05 AM EDT Note Date & Type Note Facility 02-24-2025 Telephone encounter Note Form atting of this note is different from the original. Recent Visits Date Type Provider Dept 11/12/24 Office Visit Siomara Estrada PA-C [facility] Showing recent visits within past 365 days and meeting all other requirements Future Appointments Date Type Provider Dept 05/12/25 Appointment Gasper Nelson DO [facility] Showing future appointments within next 90 days and meeting all other requirements Requested Prescriptions Pending Prescriptions Disp Refills venlafaxine XR (Effexor XR) 150 MG 24 hr capsule [Pharmacy Med Name: Venlafaxine HCl ER Oral Capsule Extended Release 24 Hour 150 MG] 90 capsule 3 Sig: TAKE 1 CAPSULE EVERY MORNING esomeprazole (NexIUM) [address] capsule [Pharmacy Med Name: Esomeprazole Magnesium Oral Capsule Delayed Release 40 MG] 90 capsule 3 Sig: TAKE 1 CAPSULE EVERY MORNING BEFORE BREAKFAST Provider: Gasper Nelson DO Verified pharmacy: yes Verified day(s) supplied: yes Verified refill(s) needed (previous prescription showing no refills in chart): Yes Have you received any controlled medications from any other provider? N/A Overdue for visit: No If yes - patient scheduled? Yes Most recent labs completed in chart? N/A [facility] 02-24-2025 Miscellaneous Notes Formattin g of this note is different from the original. Recent Visits Date Type Provider Dept 11/12/24 Office Visit Siomara Estrada PA-C [facility] Showing recent visits within past 365 days and meeting all other requirements Future Appointments Date Type Provider Dept 05/12/25 Appointment Gasper Nelson DO [facility] Showing future appointments within next 90 days and meeting all other requirements Requested Prescriptions Pending Prescriptions Disp Refills venlafaxine XR (Effexor XR) 150 MG 24 hr capsule [Pharmacy Med Name: Venlafaxine HCl ER Oral Capsule Extended Release 24 Hour 150 MG] 90 capsule 3 Sig: TAKE 1 CAPSULE EVERY MORNING esomeprazole (NexIUM) [address] capsule [Pharmacy Med Name: Esomeprazole Magnesium Oral Capsule Delayed Release 40 MG] 90 capsule 3 Sig: TAKE 1 CAPSULE [...] N/A documented in this encounter [facility] 02-17-2025 Discharge summary [facility] 02-17-2025 Note [facility] Medical Records Department [address] [place] [address] Discharge Summary 02/17/25 1059 MR#: [id number] Acct: [id number] Name: ASHLEY GÓMEZ Rep #: [id number] : 1955 69 From: Bunny Avilez DO PCP: Dr. Danish Davila DO Status:DIS IN Location: [place] [address] Providers Date of Admission: 02/15/25 Date of Discharge: 02/17/25 Primary Care Physician: Dr. Danish Davila DO Reason For Visit: EXACERBATION OF COPD, HYPOXIA Diagnosis Discharge Diagnosis (1) COPD exacerbation: Status: Chronic Code(s): J44.1 - Chronic obstructive pulmonary disease with (acute) exacerbation Plan 1. Exacerbation of COPD-patient remains on IV Solu-Medrol and aerosol treatments #2 hypoxia secondary to #1-patient's pulse ox will be monitored, oxygen will be weaned if possible #3 hypokalemia-corrected, patient's potassium is slightly high today at 5.5, BMP will be rechecked tomorrow #4 hyperlipidemia-patient is on simvastatin #5 chronic depression-patient is on Effexor Total clinical time spent by myself addressing the patient's medical issues, reviewing all of her data, and collaborating with patient's care team: 35 minutes Medications at Discharge Home Medications esomeprazole magnesium 20 mg capsule,delayed release (Nexium) 40 mg PO DAILY 08/08/13 simvastatin 80 mg tablet 40 mg PO QHS 03/20/24 venlafaxine 150 mg capsule,extended release 24 hr 150 mg PO DAILY 03/20/24 albuterol sulfate 90 mcg/actuation breath activated powder inhaler 2 inh inhalation Q4H PRN shortness of breath or wheezing 02/15/25 prednisone 20 mg tablet 20 mg PO BID #10 tabs 02/17/25 trazodone 50 mg tablet 150 mg (3 x 50 mg) PO QHS #15 tabs 02/17/25 Hospital Course Operations None Procedures None Summary of Care Provided Minutes Spent on Discharge: 32 Hospital Course: This 69-year-old white female was seen in the emergency room at [facility] with complaints of shortness of breath for 48 hours. Patient denied any productive sputum, patient stated that she was febrile at home-patient had been given a prescription for prednisone a few days ago from her PCP which she had started. Examination in the ER revealed the patient had diffuse expiratory wheezes bilaterally, patient's pulse ox on room air was 85% and the patient required 2 L to maintain her pulse ox above 90%. Labs are remarkable for potassium of 3.2, chest x-ray showed no acute process. Patient was admitted to [place] [address] for exacerbation of COPD and treated with aerosol treatments and IV corticosteroids, patient's respiratory status improved during her hospitalization. On 02/17/2025, patient was seen and examined: On examination she appeared in good health and spirits, she does not appear to be in any distress. Vital signs as documented. Skin warm and dry and without overt rashes. Neck without JVD, thyroid appears normal, trachea is midline, neck is supple. Lungs clear, normal air movement was noted. Heart exam notable for regular rhythm, normal sounds and absence of murmurs, rubs or gallops. Abdomen unremarkable and without evidence of organomegaly, masses, or abdominal aortic enlargement, bowel sounds are present in all 4 quadrants, no abdominal tenderness was noted. Extremities nonedematous, no cyanosis was noted, no clubbing was noted. Neuro: Cranial nerves II through XII are grossly intact, no focal motor deficits were noted, sensation to light touch and pinprick is intact, motor exam 5/5 throughout. Psych: Patient is alert and oriented x3, she does not appear anxious or depressed, she does not appear agitated. Patient appears stable for discharge home on 02/17/2025. Weight / BMI Weight Weight: 52.1 kg Body Mass Index (BMI) 19.7 ABG / Lab / Microbiology Data 02/15/25 09:19 02/17/25 05:30 Laboratory: Laboratory Results - last 24 hr 02/17/25 05:30: Sodium 140, Potassium 4.4, Chloride 103, Carbon Dioxide 25.7, Anion Gap 12, BUN 23 H , Creatinine 0.68 L, Estim Creat Clear Calc 53.82, Est GFR (MDRD) Non-Af 94, BUN/Creatinine Ratio 34.6 H, Glucose 102 H, Calcium 9.9 D/C Instructions Discharge Diet: No restrictions Weight Bearing Status: Weight bearing as tolerated DC O2, CPAP, BIPAP Needs Home O2 Discharge instructions: No Meaningful Use Info Meaningful Use Meaningful Use Diagnoses (Choose all that apply): None applicable Ischemic Stroke Statin Dosing Therapy Reference: STATIN DOSE THERAPY REFERENCE: * Patients > 75 years receive moderate or high dose statin therapy. * Patients 75 years or YOUNGER should receive HIGH intensity statin dose unless contraindicated. You will be required to document reason for non-treatment if statin daily dose does not meet guidelines. HIGH DOSE STATIN THERAPY DAILY Atorvastatin > than or = to 40 mg Rosuvastatin > than or = to 20 (more content not included)... [facility] 02-16-2025 Progress note Note Date/Time February 16, 2025 11:22am [facility] Medical Records Department [address] [place] [address] Progress Note - Hospitalist 02/16/25 1117 MR#: [id number] Acct: [id number] Name: ASHLEY GÓMZE Rep #:[id number] : 1955 69 From: Bunny Avilez DO PCP: Dr. Danish Davila, Status:ADM IN [id number] Reason for Visit Reason for Visit: Diagnoses Chronic obstructive pulmonary disease with (acute) exacerbation (02/15/25) Subjective Subjective Patient was seen and examined today, when I saw her earlier this morning she wason nasal cannula O2, she has since been placed on room air. Patient has no complaints at the time my examination Objective Data Objective Data Vital Signs: Vital Signs Temp Pulse Resp BP Pulse Ox O2 Del Method O2 Flow Rate 98.8 F 80 16 105/52 L 93 Room Air 2 02/16/25 08:05 02/16/25 08:05 02/16/25 08:05 02/16/25 08:05 02/16/25 08:05 02/16/25 08:05 02/16/25 07:53 Oxygen Flow Rate (L/min) 2 Oxygen Delivery Method Room Air Weight: 52.1 kg Body Mass Index (BMI) 19.7 Intake & Output: Intake and Output for Last 24 Hours 02/14/25 02/15/25 02/16/25 23:59 23:59 23:59 Intake Total 1026 / 1026 Balance 1026 / 1026 Lab / Micro Data 02/15/25 09:19 02/16/25 05:21 Labs: Laboratory Results - last 24 hr 02/16/25 05:21: Sodium 142, Potassium 5.5 H, Chloride 106, Carbon Dioxide 24.1, Anion Gap 12, BUN 19, Creatinine 0.68 L, Estim Creat Clear Calc 53.82, Est GFR (MDRD) Non-Af 94, BUN/Creatinine Ratio 28.6 H, Glucose 110 H, Calcium 10.4 Physical Exam Const alert, oriented x3 and no apparent distress General Appearance: cooperative, well kempt and well developed Orientation / Consciousness: awake, oriented to person, oriented to place and oriented to time HEENT normocephalic, head/scalp atraumatic and moist oral mucous membranes Eyes PERRL, EOMs intact bilaterally and conjunctivae normal Neck supple, no JVD, thyroid normal and no carotid bruits General: trachea midline Resp normal respiratory effort, no retractions and no use of accessory muscles Resp Narrative: Faint expiratory wheezes are scattered bilaterally Auscultation: wheezes scattered wheezes; Negative for rales or rhonchi Cardio regular rate, regular rhythm, S1 normal heart sound, S2 normal heart sound, no murmurs, no rub and no gallops GI normal to inspection, nondistended, normoactive bowel sounds, soft to palpation,non-tender and non-distended Extremity no clubbing, cyanosis or edema Skin no rashes or lesions noted General Skin Exam: no breakdown Neuro oriented x3, CN's II-XII intact bilaterally, moves all extremities, no focal motor deficits and no sensory deficits noted Sensorium / Orientation: awake and alert Speech: speech normal Psych affect normal Assessment & Plan Assessment/Plan (1) COPD exacerbation: PLAN: Plan 1. Exacerbation of COPD-patient remains on IV Solu-Medrol and aerosol treatments #2 hypoxia secondary to #1-patient's pulse ox will be monitored, oxygen will be weaned if possible #3 hypokalemia-corrected, patient's potassium is slightly high today at 5.5, BMPwill be rechecked tomorrow #4 hyperlipidemia-patient is on simvastatin #5 chronic depression-patient is on Effexor Total clinical time spent by myself addressing the patient's medical issues, reviewing all of her data, and collaborating with patient's care team: 35 minutes Charges/Coding Visit Charges Inpatient E&M: 67020 Subs Hosp L2 02/16/25 1122 <Electronically signed by Bunny Avilez DO> Cosigner Signature (if applicable): CC: ~ Signed [facility] Work Phone: 1(224) 177-431606-15-2025 Progress note [facility] Medical Records Department [address] [place] [address] Progress Note - Hospitalist 02/16/25 1117 MR#: [id number] Acct: [id number] Name: ASHLEY GÓMEZ Rep #:[id number] : 1955 69 From: Bunny Avilez DO PCP: Dr. Danish Davila, DO Status:[place] [facility] [place] Reason for Visit Reason for Visit: Diagnoses Chronic obstructive pulmonary disease with (acute) exacerbation (02/15/25) Subjective Subjective Patient was seen and examined today, when I saw her earlier this morning she wason nasal cannula O2, she has since been placed on room air. Patient has no complaints at the time my examination Objective Data Objective Data Vital Signs: Vital Signs Temp Pulse Resp BP Pulse Ox O2 Del Method O2 Flow Rate 98.8 F 80 16 105/52 L 93 Room Air 2 02/16/25 08:05 02/16/25 08:05 02/16/25 08:05 02/16/25 08:05 02/16/25 08:05 02/16/25 08:05 02/16/25 07:53 Oxygen Flow Rate (L/min) 2 Oxygen Delivery Method Room Air Weight: 52.1 kg Body Mass Index (BMI) 19.7 Intake & Output: Intake and Output for Last 24 Hours 02/14/25 02/15/25 02/16/25 23:59 23:59 23:59 Intake Total 1026 / 1026 Balance 1026 / 1026 Lab / Micro Data 02/15/25 09:19 02/16/25 05:21 Labs: Laboratory Results - last 24 hr 02/16/25 05:21: Sodium 142, Potassium 5.5 H, Chloride 106, Carbon Dioxide 24.1, Anion Gap 12, BUN 19, Creatinine 0.68 L, Estim Creat Clear Calc 53.82, Est GFR (MDRD) Non-Af 94, BUN/Creatinine Ratio 28.6 H, Glucose 110 H, Calcium 10.4 Physical Exam Const alert, oriented x3 and no apparent distress General Appearance: cooperative, well kempt and well developed Orientation / Consciousness: awake, oriented to person, oriented to place and oriented to time HEENT normocephalic, head/scalp atraumatic and moist oral mucous membranes Eyes PERRL, EOMs intact bilaterally and conjunctivae normal Neck supple, no JVD, thyroid normal and no carotid bruits General: trachea midline Resp normal respiratory effort, no retractions and no use of accessory muscles Resp Narrative: Faint expiratory wheezes are scattered bilaterally Auscultation: wheezes scattered wheezes; Negative for rales or rhonchi Cardio regular rate, regular rhythm, S1 normal heart sound, S2 normal heart sound, no murmurs, no rub and no gallops GI normal to inspection, nondistended, normoactive bowel sounds, soft to palpation,non-tender and non-distended Extremity no clubbing, cyanosis or edema Skin no rashes or lesions noted General Skin Exam: no breakdown Neuro oriented x3, CN's II-XII intact bilaterally, moves all extremities, no focal motor deficits and no sensory deficits noted Sensorium / Orientation: awake and alert Speech: speech normal Psych affect normal Assessment & Plan Assessment/Plan (1) COPD exacerbation: PLAN: Plan 1. Exacerbation of COPD-patient remains on IV Solu-Medrol and aerosol treatments #2 hypoxia secondary to #1-patient's pulse ox will be monitored, oxygen will be weaned if possible #3 hypokalemia-corrected, patient's potassium is slightly high today at 5.5, BMPwill be rechecked tomorrow #4 hyperlipidemia-patient is on simvastatin #5 chronic depression-patient is on Effexor Total clinical time spent by myself addressing the patient's medical issues, reviewing all of her data, and collaborating with patient's care team: 35 minutes Charges/Coding Visit Charges Inpatient E&M: 13495 Subs Hosp L2 02/16/25 1122 Cosigner Signature (if applicable): CC: ~ Signed [facility]06-14-2025 History and physical note Author Bunny Avilez [facility] Note Date/Time February 15, 2025 3:06 pm [facility] Medical Records Department [address] [place] [address] H&P Exam - Hospitalist 02/15/25 6210 MR#: [id number] Acct: [id number] Name: ASHLEY GÓMEZ Rep #:[id number] : 1955 69 From: Bunny Avilez DO PCP: Dr. Danish Davila, DO Status:ADM [place] [facility] [place] HPI - General General Date of Admission: 02/15/25 Date of Service: 02/15/25 Chief Complaint: Shortness of breath HPI Narrative ASHLEY GÓMEZ, is a 69 F who presents to the emergency room at [facility] with complaints of shortness of breath over the last 2 days. Patient denies any chills, she denies any productive sputum, she does say she was running a fever of 101 at home.. Patient wears no oxygen at home, she was given a prescription from her PCP for prednisone a few days ago which she started. Examination the patient revealed her to be afebrile, she had diffuse expiratory wheezes scattered over both lungs, patient's pulse ox on room air was 85%. Patient required 2 L of oxygen to maintain her pulse ox above 90%. Labs were remarkable for a potassium of 3.2, CC was unremarkable. chest x-ray was obtainedwhich showed no acute infiltrates patient will be admitted to [place] [address] for exacerbation of COPD with hypoxia, she will be given aerosol treatments IV Solu-Medrol, pulse ox will be monitored. [facility] Medical History Wears dentures Wears glasses Post-menopausal Depression Arthritis Anemia Gastric reflux Former smoker Hoarseness History of stress test Osteopenia COPD (chronic obstructive pulmonary disease) Family hx of colon cancer Nausea & vomiting Diarrhea Pathologic pelvic fracture Chronic anemia GERD (gastroesophageal reflux disease) Depression Home Medications ?Medication ?Instructions ?Recorded ?Last Taken ?Type esomeprazole magnesium 20 mg 40 mg PO DAILY 08/08/13 0 02/15/25 History capsule,delayed release (Nexium) simvastatin 80 mg tablet 40 mg PO QHS 03/20/24 History venlafaxine 150 mg 150 mg PO DAILY 03/20/24 History capsule,extended release 24 hr albuterol sulfate 90 mcg/actuation 2 inh inhalation Q4 H PRN shortness 02/15/25 Unknown History breath activated powder inhaler of breath or wheezing trazodone 150 mg tablet 150 mg PO QHS 02/15/25 Unkno wn History Allergy/AdvReac Type Severity Reaction Status Date / Time Sulfa (Sulfonamide Allergy Hives Verified 02/15/25 08:34 Antibiotics) Family History Mother Pancreatic cancer Father COPD (chronic obstructive pulmonary disease) Brother Colon cancer Heart disease Sister Stomach cancer Brother Leukemia Surgical History History of tonsillectomy and adenoidectomy Hx of cholecystectomy Hx of appendectomy Hx of colonoscopy Social History household members: none current occupational status: employed current occupation: [employer] Smoking Status: Current every day smoker tobacco type: cigarettes Tobacco: How many years used: 4 alcohol intake: former substance use type: does not use ROS Constitutional Constitutional: Reports fatigue and fever(s); Denies anorexia, change in weight,chills, night sweats or weakness Eyes Eyes: Denies blurry vision, change in eye color, change in vision, discharge from eye(s) or eye pain Cardiovascular Cardiovascular: Reports dyspnea on exertion; Denies chest pain, claudication, edema or palpitations Respiratory/Chest Respiratory/Chest: Reports cough, dyspnea, shortness of breath at rest and shortness of breath with exertion; Denies hemoptysis Gastrointestinal Gastrointestinal: Denies abdominal pain, constipation, diarrhea, hematemesis, hematochezia, melena, nausea or vomiting Genitourinary Genitourinary: Denies dysuria, hematuria, urinary frequency, urinary hesitancy, urinary incontinence or urinary urgency Musculoskeletal Musculoskeletal: Denies back pain, joint pain, joint stiffness, joint swelling, myalgias or neck pain Neurologic Neurologic: Denies abnormal gait, abnormal speech, dizziness, focal weakness, headache(s), loss of vision, numbness, other visual disturbances, paresthesias, syncope or tingling Psychiatric Psychiatric: Denies anxiety, cognitive impairment, depression, irritability, mood swings or suicidal ideation Endocrine Endocrinology: Denies change in body appearance, cold intolerance, excessive sweating, heat intolerance, polydipsia or polyuria Hematologic/Lymphatic Hematologic/Lymphatic: Denies none, anemia, easy bleeding, easy bruising or lymphadenopathy Allergic/Immunologic Allergic/Immunologic: Denies rhinitis, urticaria, eczemia or asthma Vital Signs Vital Signs Vital Signs: 02/15/25 08:30 02/15/25 08:36 02/15/25 09:12 Temperature 98.4 F Temperature Source Oral Pulse Rate 80 Respiratory Rate 24 H Respiratory Pattern Tachypnea Blood Pressure 143/74 H Blood Pressure Mean 97 Blood Pressure Source Blood Pressure Position Blood Pressure Location Pulse Ox 91 90 Oxygen Delivery Method Room Air Room Air Room Air Oxygen Flow Rate (L/min) 02/15/25 09:12 02/15/25 09:36 02/15/25 09:36 Temperature Temperature Source Pulse Rate 75 80 Respiratory Rate 16 18 Respiratory Pattern Blood Pressure Blood Pressure Mean Blood Pressure Source Blood Pressure Position Blood Pressure Location Pulse Ox 85 Oxygen Delivery Method Room Air Oxygen Flow Rate (L/min) 02/15/25 10:30 02/15/25 10:47 02/15/25 13:02 Temperature 98 F 97.7 F L Temperature Source Oral Pulse Rate 86 87 84 Respiratory Rate 19 H 19 H 18 Respiratory Pattern Blood Pressure 132/69 H 132/68 H 143/53 H Blood Pressure Mean 90 89 83 Blood Pressure Source Monitor Blood Pressure Position Semi-Fowlers Blood Pressure Location Left Arm Pulse Ox 91 91 92 Oxygen Delivery Method Nasal Cannula Nasal Cannula Oxygen Flow Rate (L/min) 2 2 02/15/25 13:30 Temperature Temperature Source Pulse Rate Respiratory Rate Respiratory Pattern Blood Pressure Blood Pressure Mean Blood Pressure Source Blood Pressure Position Blood Pressure Location Pulse Ox 91 Oxygen Delivery Method Nasal Cannula Oxygen Flow Rate (L/min) 2 Weight Weight: 52.1 kg Body Mass Index (BMI) 19.7 Physical Exam Const alert, oriented x3, no apparent distress and average body habitus General Appearance: cooperative, well kempt and well developed Orientation / Consciousness: awake, oriented to person, oriented to place and oriented to time HEENT normocephalic, head/scalp atraumatic, hearing grossly normal bilaterally and moist oral mucous membranes Eyes PERRL, EOMs intact bilaterally and conjunctivae normal Neck supple, no JVD, thyroid normal and no carotid bruits General: trachea midline Resp normal respiratory effort, no retractions and no use of accessory muscles Resp Narrative: Expiratory wheezes were noted scattered over both lungs worse on the left Auscultation: wheezes expiratory wheezes and throughout; Negative for rales or rhonchi Cardio regular rate, regular rhythm, S1 normal heart sound, S2 normal heart sound, no murmurs, no rub and no gallops GI normal to inspection, nondistended, normoactive bowel sounds, soft to palpation,non-tender and non-distended Extremity no clubbing, cyanosis or edema Skin no rashes or lesions noted General Skin Exam: no breakdown Neuro oriented x3, CN's II-XII intact bilaterally, moves all extremities, no focal motor deficits and no sensory deficits noted Sensorium / Orientation: awake and alert Speech: speech normal Psych affect normal Results Lab / Micro Data 02/15/25 09:19 02/15/25 09:19 Labs: Laboratory Results - last 24 hr 02/15/25 09:19: WBC 9.4, RBC 4.55, Hgb 13.6, Hct 41.5, MCV 91.2, MCH 29.9, MCHC 32.8, RDW Std Deviation 44.6 H, RDW Coeff of Tr 13.2, Plt Count 263, MPV 9.7, Immature Gran % (Auto) 0.200, Neut % (Auto) 77.0 H, Lymph % (Auto) 19.2, [place] % (Auto) 1.9, Eos % (Auto) 0.7, Baso % (Auto) 1.0, Absolute Neuts (auto) 7.2, Absolute Lymphs (auto) 1.81, Nucleated RBC % 0, Sodium 140, Potassium 3.2 L, Chloride 101, Carbon Dioxide 26.3, Anion Gap 13, BUN 17, Creatinine 0.75, Estim Creat Clear Calc 53.51, Est GFR (MDRD) Non-Af 86, BUN/Creatinine Ratio 22.4 H, Glucose 136 H, Calcium 9.8 Imaging Radiology Impression Chest X-Ray 02/15/25 09:25 IMPRESSION: No acute process [facility] Assessment & Plan Assessment/Plan (1) COPD exacerbation: PLAN: Plan 1. Exacerbation of COPD-patient will be admitted to [place] [address] and given aerosoltreatments and IV Solu-Medrol #2 hypoxia secondary to #1-patient's pulse ox will be monitored, she currently requires 2 L of oxygen via nasal cannula #3 hypokalemia-patient will be given potassium replacement, BMP will be rechecked tomorrow #4 hyperlipidemia-patient is on simvastatin #5 chronic depression-patient is on Effexor Total clinical time spent by myself addressing the patient's medical issues, reviewing all of her data, and collaborating with patient's care team: 55 minutes Charges/Coding Visit Charges Inpatient E&M: 36214 Init Hosp L2 02/15/25 1506 <Electronically signed by Bunny Avilez DO> Cosigner Signature (if applicable): CC: Dr. Bunny Avilez, DO; Dr. Danish Davila DO~ Signed [facility] Work Phone: 1(108) 529-179006-14-2025 History and physical note [facility] Medical Records Department [address] [place] [id number] H&P Exam - Hospitalist 02/15/25 1459 MR#: [id number] Acct: [id number] Name: ASHLEY GÓMEZ Rep #:[id number] : 1955 69 From: Bunny Avilez DO PCP: Dr. Danish Davila DO Status:ADM [place] [facility] [id number] HPI - General General Date of Admission: 02/15/25 Date of Service: 02/15/25 Chief Complaint: Shortness of breath HPI Narrative ASHLEY GÓMEZ, is a 69 F who presents to the emergency room at [facility] with complaints of shortness of breath over the last 2 days. Patient denies any chills, she denies any productive sputum, she does say she was running a fever of 101 at home.. Patient wears no oxygen at home,she was given a prescription from her PCP for prednisone a few days ago which she started. Examination the patient revealed her to be afebrile, she had diffuse expiratory wheezes scattered over both lungs, patient's pulse ox on room air was 85%. Patient required 2 L of oxygen to maintain her pulse ox above 90%. Labs were remarkable for a potassium of 3.2, CC was unremarkable. chest x-raywas obtainedwhich showed no acute infiltrates patient will be admitted to [place] [address] for exacerbation of COPD with hypoxia, she will be given aerosol treatments IV Solu-Medrol, pulse ox will be monitored. [facility] Medical History Wears dentures Wears glasses Post-menopausal Depression Arthritis Anemia Gastric reflux Former smoker Hoarseness History of stress test Osteopenia COPD (chronic obstructive pulmonary disease) Family hx of colon cancer Nausea & vomiting Diarrhea Pathologic pelvic fracture Chronic anemia GERD (gastroesophageal reflux disease) Depression Home Medications ?Medication ?Instructions ?Recorded ?Last Taken ?Type esomeprazole magnesium 20 mg 40 mg PO DAILY 08/08/13 0 02/15/25 History capsule,delayed release (Nexium) simvastatin 80 mg tablet 40 mg PO QHS 03/20/24 History venlafaxine 150 mg 150 mg PO DAILY 03/20/24 History capsule,extended release 24 hr albuterol sulfate 90 mcg/actuation 2 inh inhalation Q4 H PRN shortness 02/15/25 Unknown History breath activated powder inhaler of breath or wheezing trazodone 150 mg tablet 150 mg PO QHS 02/15/25 Unkno wn History Allergy/AdvReac Type Severity Reaction Status Date / Time Sulfa (Sulfonamide Allergy Hives Verified 02/15/25 08:34 Antibiotics) Family History Mother Pancreatic cancer Father COPD (chronic obstructive pulmonary disease) Brother Colon cancer Heart disease Sister Stomach cancer Brother Leukemia Surgical History History of tonsillectomy and adenoidectomy Hx of cholecystectomy Hx of appendectomy Hx of colonoscopy Social History household members: none current occupational status: employed current occupation: [employer] Smoking Status: Current every day smoker tobacco type: cigarettes Tobacco: How many years used: 4 alcohol intake: former substance use type: does not use ROS Constitutional Constitutional: Reports fatigue and fever(s); Denies anorexia, change in weight,chills, night sweats or weakness Eyes Eyes: Denies blurry vision, change in eye color, change in vision, discharge from eye(s) or eye pain Cardiovascular Cardiovascular: Reports dyspnea on exertion; Denies chest pain, claudication, edema or palpitations Respiratory/Chest Respiratory/Chest: Reports cough, dyspnea, shortness of breath at rest and shortness of breath withexertion; Denies hemoptysis Gastrointestinal Gastrointestinal: Denies abdominal pain, constipation, diarrhea, hematemesis, hematochezia, melena,nausea or vomiting Genitourinary Genitourinary: Denies dysuria, hematuria, urinary frequency, urinary hesitancy, urinary incontinence or urinary urgency Musculoskeletal Musculoskeletal: Denies back pain, joint pain, joint stiffness, joint swelling, myalgias or neck pain Neurologic Neurologic: Denies abnormal gait, abnormal speech, dizziness, focal weakness, headache(s), loss of vision, numbness, other visual disturbances, paresthesias, syncope or tingling Psychiatric Psychiatric: Denies anxiety, cognitive impairment, depression, irritability, mood swings or suicidal ideation Endocrine Endocrinology: Denies change in body appearance, cold intolerance, excessive sweating, heat intolerance, polydipsia or polyuria Hematologic/Lymphatic Hematologic/Lymphatic: Denies none, anemia, easy bleeding, easy bruising or lymphadenopathy Allergic/Immunologic Allergic/Immunologic: Denies rhinitis, urticaria, eczemia or asthma Vital Signs Vital Signs Vital Signs: 02/15/25 08:30 02/15/25 08:36 02/15/25 09:12 Temperature 98.4 F Temperature Source Oral Pulse Rate 80 Respiratory Rate 24 H Respiratory Pattern Tachypnea Blood Pressure 143/74 H Blood Pressure Mean 97 Blood Pressure Source Blood Pressure Position Blood Pressure Location Pulse Ox 91 90 Oxygen Delivery Method Room Air Room Air Room Air Oxygen Flow Rate (L/min) 02/15/25 09:12 02/15/25 09:36 02/15/25 09:36 Temperature Temperature Source Pulse Rate 75 80 Respiratory Rate 16 18 Respiratory Pattern Blood Pressure Blood Pressure Mean Blood Pressure Source Blood Pressure Position Blood Pressure Location Pulse Ox 85 Oxygen Delivery Method Room Air Oxygen Flow Rate (L/min) 02/15/25 10:30 02/15/25 10:47 02/15/25 13:02 Temperature 98 F 97.7 F L Temperature Source Oral Pulse Rate 86 87 84 Respiratory Rate 19 H 19 H 18 Respiratory Pattern Blood Pressure 132/69 H 132/68 H 143/53 H Blood Pressure Mean 90 89 83 Blood Pressure Source Monitor Blood Pressure Position Semi-Fowlers Blood Pressure Location Left Arm Pulse Ox 91 91 92 Oxygen Delivery Method Nasal Cannula Nasal Cannula Oxygen Flow Rate (L/min) 2 2 02/15/25 13:30 Temperature Temperature Source Pulse Rate Respiratory Rate Respiratory Pattern Blood Pressure Blood Pressure Mean Blood Pressure Source Blood Pressure Position Blood Pressure Location Pulse Ox 91 Oxygen Delivery Method Nasal Cannula Oxygen Flow Rate (L/min) 2 Weight Weight: 52.1 kg Body Mass Index (BMI) 19.7 Physical Exam Const alert, oriented x3, no apparent distress and average body habitus General Appearance: cooperative, well kempt and well developed Orientation / Consciousness: awake, oriented to person, oriented to place and oriented to time HEENT normocephalic, head/scalp atraumatic, hearing grossly normal bilaterally and moist oral mucous membranes Eyes PERRL, EOMs intact bilaterally and conjunctivae normal Neck supple, no JVD, thyroid normal and no carotid bruits General: trachea midline Resp normal respiratory effort, no retractions and no use of accessory muscles Resp Narrative: Expiratory wheezes were noted scattered over both lungs worse on the left Auscultation: wheezes expiratory wheezes and throughout; Negative for rales or rhonchi Cardio regular rate, regular rhythm, S1 normal heart sound, S2 normal heart sound, no murmurs, no rub and no gallops GI normal to inspection, nondistended, normoactive bowel sounds, soft to palpation,non-tender and non-distended Extremity no clubbing, cyanosis or edema Skin no rashes or lesions noted General Skin Exam: no breakdown Neuro oriented x3, CN's II-XII intact bilaterally, moves all extremities, no focal motor deficits and no sensory deficits noted Sensorium / Orientation: awake and alert Speech: speech normal Psych affect normal Results Lab / Micro Data 02/15/25 09:19 02/15/25 09:19 Labs: Laboratory Results - last 24 hr 02/15/25 09:19: WBC 9.4, RBC 4.55, Hgb 13.6, Hct 41.5, MCV 91.2, MCH 29.9, MCHC 32.8, RDW Std Deviation 44.6 H, RDW Coeff of Tr 13.2, Plt Count 263, MPV 9.7, Immature Gran % (Auto) 0.200, Neut % (Auto) 77.0 H, Lymph % (Auto) 19.2, [place] % (Auto) 1.9, Eos % (Auto) 0.7, Baso % (Auto) 1.0, Absolute Neuts (auto) 7.2, Absolute Lymphs (auto) 1.81, Nucleated RBC % 0, Sodium 140, Potassium 3.2 L, Chloride 101, Carbon Dioxide 26.3, Anion Gap 13, BUN 17, Creatinine 0.75, Estim Creat Clear Calc 53.51, EstGFR (MDRD) Non-Af 86, BUN/Creatinine Ratio 22.4 H, Glucose 136 H, Calcium 9.8 Imaging Radiology Impression Chest X-Ray 02/15/25 09:25 IMPRESSION: No acute process Reading [facility] Assessment & Plan Assessment/Plan (1) COPD exacerbation: PLAN: Plan 1. Exacerbation of COPD-patient will be admitted to [place] [address] and given aerosoltreatments and IV Solu-Medrol #2 hypoxia secondary to #1-patient's pulse ox will be monitored, she currently requires 2 L of oxygen via nasal cannula #3 hypokalemia-patient will be given potassium replacement, BMP will be rechecked tomorrow #4 hyperlipidemia-patient is on simvastatin #5 chronic depression-patient is on Effexor Total clinical time spent by myself addressing the patient's medical issues, reviewing all of her data, and collaborating with patient's care team: 55 minutes Charges/Coding Visit Charges Inpatient E&M: 26397 Init Hosp L2 02/15/25 1506 Cosigner Signature (if applicable): CC: Dr. Bunny Avilez, DO; Dr. Danish Davila, DO~ Signed [facility]06-14-2025 Evaluation note* Diagnosis Onset Date Resolution Status Admit Date Hypokalemia acute February 15 11:21am Hypoxia acute February 15 11:21am Smoker acute February 15 11:21am COPD exacerbation chronic February 152024 11:21am [facility] Work Phone: 1(278) 976-666506-14-2025 Discharge summary Author Wilfred Bryan [facility] Note Date/Time February 15, 2025 11:1 1am [facility] Medical Records Department [address] [place] [address] Emergency Department Summary 02/15/25 MR#: [id number] Acct: [id number] Name: ASHLEY GÓMEZ Rep #:[id number] : 1955 69 From: Wilfred Bryan MD PCP: Dr. Danish Davila, DO Status:REG ER Location: ED HPI History of Present Illness Chief Complaint: Shortness of Breath Narrative Narrative: 69-year-old female past medical history of COPD, does not wear oxygen, presents via EMS with increased shortness of breath for the last 4 to 5 days. She statesit is hard for her to breathe. Her primary care provider called her in a prescription for prednisone a few days ago which she started. This morning she awoke feeling feverish with reported temperature as high as 101 degrees. She went to work today and she states her boss called EMS because of her difficulty breathing. She has a rare cough that is nonproductive. No leg swelling. She uses her albuterol in the morning and sometimes during the day. Additionally, sometimes she smokes as well. [facility] Medical History Wears dentures Wears glasses Post-menopausal Depression Arthritis Anemia Gastric reflux Former smoker Hoarseness History of stress test Osteopenia COPD (chronic obstructive pulmonary disease) Family hx of colon cancer Nausea & vomiting Diarrhea Pathologic pelvic fracture Chronic anemia GERD (gastroesophageal reflux disease) Depression Home Medications ?Medication ?Instructions ?Recorded ?Last Taken ?Type esomeprazole magnesium 20 mg 40 mg PO DAILY 08/08/13 0 02/15/25 History capsule,delayed release (Nexium) simvastatin 80 mg tablet 40 mg PO QHS 03/20/24 History venlafaxine 150 mg 150 mg PO DAILY 03/20/24 History capsule,extended release 24 hr albuterol sulfate 90 mcg/actuation 2 inh inhalation Q4 H PRN shortness 02/15/25 Unknown History breath activated powder inhaler of breath or wheezing trazodone 150 mg tablet 150 mg PO QHS 02/15/25 Unkno wn History Allergy/AdvReac Type Severity Reaction Status Date / Time Sulfa (Sulfonamide Allergy Hives Verified 02/15/25 08:34 Antibiotics) Family History Mother Pancreatic cancer Father COPD (chronic obstructive pulmonary disease) Brother Colon cancer Heart disease Sister Stomach cancer Brother Leukemia Surgical History History of tonsillectomy and adenoidectomy Hx of cholecystectomy Hx of appendectomy Hx of colonoscopy Social History household members: none current occupational status: employed current occupation: [employer] Smoking Status: Current every day smoker tobacco type: cigarettes Tobacco: How many years used: 4 alcohol intake: former substance use type: does not use ROS ROS ED ROS Narrative Review of systems positive for reported fever. Shortness of breath for the last4 to 5 days. Increased difficulty breathing. Occasional cough. No leg swelling. No chest pain, no nausea or vomiting. EXAM Physical Exam Narrative Exam Narrative: Afebrile. Vital signs noted. Nontoxic-appearing. Cardiovascular examination reveals a regular rate and rhythm. Respiratory examination shows no distress. She has decreased breath sounds at the bilateral bases with occasional expiratory wheezing. Abdomen is soft and nontender with out guarding or rebound. Positive bowel sounds. Neurological examination nonfocal nonlateralizing. No pedal edema. Const Vital Signs: 02/15/25 08:30 02/15/25 08:36 02/15/25 09:12 Temperature 98.4 F Temperature Source Oral Pulse Rate 80 Respiratory Rate 24 H Respiratory Pattern Tachypnea Blood Pressure 143/74 H Blood Pressure Mean 97 Pulse Ox 91 90 Oxygen Delivery Method Room Air Room Air Room Air Oxygen Flow Rate (L/min) 02/15/25 09:12 02/15/25 09:36 02/15/25 09:36 Temperature Temperature Source Pulse Rate 75 80 Respiratory Rate 16 18 Respiratory Pattern Blood Pressure Blood Pressure Mean Pulse Ox 85 Oxygen Delivery Method Room Air Oxygen Flow Rate (L/min) 02/15/25 10:30 02/15/25 10:47 Temperature 98 F Temperature Source Pulse Rate 86 87 Respiratory Rate 19 H 19 H Respiratory Pattern Blood Pressure 132/69 H 132/68 H Blood Pressure Mean 90 89 Pulse Ox 91 91 Oxygen Delivery Method Nasal Cannula Oxygen Flow Rate (L/min) 2 MDM MDM MDM Narrative Medical decision making narrative: Differential diagnosis includes but not limited to COPD exacerbation versus pneumonia versus pneumothorax. History and physical does not support pneumothorax and she has equal breath sounds. Pulse ox 91% on room air but doesdip to 89 even at rest. Comprehensive workup was pursued. EKG was obtained andinterpreted by myself independently as normal sinus rhythm at 84 bpm without ectopy or acute ST changes. No STEMI. Chest x-ray interpreted by myself independently shows no Incivo pneumonia or pneumothorax. I reviewed the radiology report which confirms my independent interpretation. According to respiratory therapy, she was still wheezy after DuoNeb aerosolized treatment so she was given albuterol as well as Solu-Medrol 125 mg intravenously. She was hypoxic on room air and 85%. Once again she doesnot wear oxygen at home. I reviewed her laboratory work and she has normal white count of 9.4 with hemoglobin 13.6, hematocrit 41.5, platelet count 263. Potassium slightly low at 3.2 which can be replaced orally. BUN of 17 and creatinine 0.75 with glucose 136 but normal anion gap of 13. At this point in time, I will discuss patient with the hospitalist for admissiongiven her hypoxia as I feel this is a COPD exacerbation as she continues to intermittently smoke. Disposition is admit in stable condition. History & Record Review Discussion w/independent historian: Patient Additional record(s) reviewed:: Prior ED visit (Essentially noncontributory to current chief complaint) Lab Data Attestation: I reviewed the patient's lab results. Labs: Laboratory Results - last 24 hr 02/15/25 09:19 WBC 9.4 RBC 4.55 Hgb 13.6 Hct 41.5 MCV 91.2 MCH 29.9 MCHC 32.8 RDW Std Deviation 44.6 H RDW Coeff of Tr 13.2 Plt Count 263 MPV 9.7 Immature Gran % (Auto) 0.200 Neut % (Auto) 77.0 H Lymph % (Auto) 19.2 [place] % (Auto) 1.9 Eos % (Auto) 0.7 Baso % (Auto) 1.0 Absolute Neuts (auto) 7.2 Absolute Lymphs (auto) 1.81 Nucleated RBC % 0 Sodium 140 Potassium 3.2 L Chloride 101 Carbon Dioxide 26.3 Anion Gap 13 BUN 17 Creatinine 0.75 Estim Creat Clear Calc 53.51 Est GFR (MDRD) Non-Af 86 BUN/Creatinine Ratio 22.4 H Glucose 136 H Calcium 9.8 Radiography Diagnostic Testing: Clinical Impression(s) from Imaging Studies Chest X-Ray 02/15/25 09:25 IMPRESSION: No acute process Reading Location: [facility] Management Discussion w/another healthcare provider: Hospitalist (Dr. Avilez) Discharge Plan Triage Chief Complaint: Shortness of Breath ED Provider: Wilfred Bryan Dx/Rx/DC Orders Clinical Impression: COPD exacerbation, Hypoxia, Smoker, Hypokalemia Prescriptions: No Action simvastatin 80 mg tablet 40 mg PO QHS Patient Comments: PT TAKING 40 MG, BREAKS PILL IN HALF venlafaxine 150 mg capsule,extended release 24hr 150 mg PO DAILY esomeprazole magnesium [Nexium] 20 MG capsule 40 mg PO DAILY Patient Comments: acid reflux trazodone 150 mg tablet 150 mg PO QHS Patient Comments: PT IS OUT, BUT SHE DOES TAKE. albuterol sulfate 90 mcg/actuation aerosol powdr breath activated 2 inh inhalation Q4H PRN (Reason: shortness of breath or wheezing) Primary Care Provider: Danish Davila Referrals: Danish Davila DO [Primary Care Provider] - Print Language: Libyan What to do if you have Problems For any increased pain, shortness of breath, bleeding, nausea or vomiting, chestpain, or any unexpected problems, contact your Primary Care Provider. Call [facility] ([phone]) or report to the closest Emergency Room. Call 911 if necessary. 02/15/25 1111 <Electronically signed by Wilfred Bryan MD> Cosigner Signature (if applicable): CC: Dr. Danish Davila DO ~ Signed [facility] Work Phone: 1(983) 805-362706-14-2025 Discharge summary [facility] Medical Records Department [address] [place] [address] Emergency Department Summary 02/15/25 MR#: [id number] Acct: [id number] Name: ASHLEY GÓMEZ Rep #:[id number] : 1955 69 From: Wilfred Bryan MD PCP: Dr. Danish Davila DO Status:REG ER Location: ED HPI History of Present Illness Chief Complaint: Shortness of Breath Narrative Narrative: 69-year-old female past medical history of COPD, does not wear oxygen, presents via EMS with increased shortness of breath for the last 4 to 5 days. She statesit is hard for her to breathe. Her primary care provider called her in a prescription for prednisone a few days ago which she started. This morning she awoke feeling feverish with reported temperature as high as 101 degrees. She went to work today and she states her boss called EMS because of her difficulty breathing. She has a rare coughthat is nonproductive. No leg swelling. She uses her albuterol in the morning and sometimes during the day. Additionally, sometimes she smokes as well. [facility] Medical History Wears dentures Wears glasses Post-menopausal Depression Arthritis Anemia Gastric reflux Former smoker Hoarseness History of stress test Osteopenia COPD (chronic obstructive pulmonary disease) Family hx of colon cancer Nausea & vomiting Diarrhea Pathologic pelvic fracture Chronic anemia GERD (gastroesophageal reflux disease) Depression Home Medications ?Medication ?Instructions ?Recorded ?Last Taken ?Type esomeprazole magnesium 20 mg 40 mg PO DAILY 08/08/13 0 02/15/25 History capsule,delayed release (Nexium) simvastatin 80 mg tablet 40 mg PO QHS 03/20/24 History venlafaxine 150 mg 150 mg PO DAILY 03/20/24 History capsule,extended release 24 hr albuterol sulfate 90 mcg/actuation 2 inh inhalation Q4 H PRN shortness 02/15/25 Unknown History breath activated powder inhaler of breath or wheezing trazodone 150 mg tablet 150 mg PO QHS 02/15/25 Unkno wn History Allergy/AdvReac Type Severity Reaction Status Date / Time Sulfa (Sulfonamide Allergy Hives Verified 02/15/25 08:34 Antibiotics) Family History Mother Pancreatic cancer Father COPD (chronic obstructive pulmonary disease) Brother Colon cancer Heart disease Sister Stomach cancer Brother Leukemia Surgical History History of tonsillectomy and adenoidectomy Hx of cholecystectomy Hx of appendectomy Hx of colonoscopy Social History household members: none current occupational status: employed current occupation: [employer] Smoking Status: Current every day smoker tobacco type: cigarettes Tobacco: How many years used: 4 alcohol intake: former substance use type: does not use ROS ROS ED ROS Narrative Review of systems positive for reported fever. Shortness of breath for the last4 to 5 days. Increased difficulty breathing. Occasional cough. No leg swelling. No chest pain, no nausea or vomiting. EXAM Physical Exam Narrative Exam Narrative: Afebrile. Vital signs noted. Nontoxic-appearing. Cardiovascular examination reveals a regular rate and rhythm. Respiratory examination shows no distress. She has decreased breath sounds at the bilateral bases with occasional expiratory wheezing. Abdomen is soft and nontender with out guarding or rebound. Positive bowel sounds. Neurological examination nonfocal nonlateralizing. No pedal edema. Const Vital Signs: 02/15/25 08:30 02/15/25 08:36 02/15/25 09:12 Temperature 98.4 F Temperature Source Oral Pulse Rate 80 Respiratory Rate 24 H Respiratory Pattern Tachypnea Blood Pressure 143/74 H Blood Pressure Mean 97 Pulse Ox 91 90 Oxygen Delivery Method Room Air Room Air Room Air Oxygen Flow Rate (L/min) 02/15/25 09:12 02/15/25 09:36 02/15/25 09:36 Temperature Temperature Source Pulse Rate 75 80 Respiratory Rate 16 18 Respiratory Pattern Blood Pressure Blood Pressure Mean Pulse Ox 85 Oxygen Delivery Method Room Air Oxygen Flow Rate (L/min) 02/15/25 10:30 02/15/25 10:47 Temperature 98 F Temperature Source Pulse Rate 86 87 Respiratory Rate 19 H 19 H Respiratory Pattern Blood Pressure 132/69 H 132/68 H Blood Pressure Mean 90 89 Pulse Ox 91 91 Oxygen Delivery Method Nasal Cannula Oxygen Flow Rate (L/min) 2 MDM MDM MDM Narrative Medical decision making narrative: Differential diagnosis includes but not limited to COPD exacerbation versus pneumonia versus pneumothorax. History and physical does not support pneumothorax and she has equal breath sounds. Pulse ox91% on room air but doesdip to 89 even at rest. Comprehensive workup was pursued. EKG was obtained a ndinterpreted by myself independently as normal sinus rhythm at 84 bpm without ectopy or acute ST changes. No STEMI. Chest x-ray interpreted by myself independently shows no Incivo pneumonia or pneumothorax. I reviewed the radiology report which confirms my independent interpretation. According to respiratory therapy, she was still wheezy after DuoNeb aerosolized treatment so she was given albuterol as well as Solu-Medrol 125 mg intravenously. She was hypoxic on room air and 85%. Once again she doesnot wear oxygen at home. I reviewed her laboratory work and she has normal white count of 9.4 with hemoglobin 13.6, hematocrit 41.5, platelet count 263. Potassium slightly low at 3.2 which can be replaced orally.BUN of 17 and creatinine 0.75 with glucose 136 but normal anion gap of 13. At this point in time, I will discuss patient with the hospitalist for admissiongiven her hypoxia as I feel this is a COPD exacerbation as she continues to intermittently smoke. Disposition is admit in stable condition. History & Record Review Discussion w/independent historian: Patient Additional record(s) reviewed:: Prior ED visit (Essentially noncontributory to current chief complaint) Lab Data Attestation: I reviewed the patient's lab results. Labs: Laboratory Results - last 24 hr 02/15/25 09:19 WBC 9.4 RBC 4.55 Hgb 13.6 Hct 41.5 MCV 91.2 MCH 29.9 MCHC 32.8 RDW Std Deviation 44.6 H RDW Coeff of Tr 13.2 Plt Count 263 MPV 9.7 Immature Gran % (Auto) 0.200 Neut % (Auto) 77.0 H Lymph % (Auto) 19.2 [place] % (Auto) 1.9 Eos % (Auto) 0.7 Baso % (Auto) 1.0 Absolute Neuts (auto) 7.2 Absolute Lymphs (auto) 1.81 Nucleated RBC % 0 Sodium 140 Potassium 3.2 L Chloride 101 Carbon Dioxide 26.3 Anion Gap 13 BUN 17 Creatinine 0.75 Estim Creat Clear Calc 53.51 Est GFR (MDRD) Non-Af 86 BUN/Creatinine Ratio 22.4 H Glucose 136 H Calcium 9.8 Radiography Diagnostic Testing: Clinical Impression(s) from Imaging Studies Chest X-Ray 02/15/25 09:25 IMPRESSION: No acute process Reading Location: [facility] Management Discussion w/another healthcare provider: Hospitalist (Dr. Avilez) Discharge Plan Triage Chief Complaint: Shortness of Breath ED Provider: Wilfred Bryan Dx/Rx/DC Orders Clinical Impression: COPD exacerbation, Hypoxia, Smoker, Hypokalemia Prescriptions: No Action simvastatin 80 mg tablet 40 mg PO QHS Patient Comments: PT TAKING 40 MG, BREAKS PILL IN HALF venlafaxine 150 mg capsule,extended release 24hr 150 mg PO DAILY esomeprazole magnesium [Nexium] 20 MG capsule 40 mg PO DAILY Patient Comments: acid reflux trazodone 150 mg tablet 150 mg PO QHS Patient Comments: PT IS OUT, BUT SHE DOES TAKE. albuterol sulfate 90 mcg/actuation aerosol powdr breath activated 2 inh inhalation Q4H PRN (Reason: shortness of breath or wheezing) Primary Care Provider: Danish Davila Referrals: Danish Davila DO [Primary Care Provider] - Print Language: Libyan What to do if you have Problems For any increased pain, shortness of breath, bleeding, nausea or vomiting, chestpain, or any unexpected problems, contact your Primary Care Provider. Call [facility] ([phone]) or report tothe closest Emergency Room. Call 911 if necessary. 02/15/25 1111 Cosigner Signature (if applicable): CC: Dr. Danish Davila DO ~ Signed [facility]06-14-2025 Radiology Diagnostic study note [facility] Imaging Services [address] [place] [id number] Chest 1 View (Portable) MR#: [id number] Acct: [id number] Name: ASHLEY GÓMEZ Rep #: [id number] : 1955 F 69 From: Pet er Blanka VICK PCP: Dr. Danish Davila DO Status: REG ER Study:Chest 1 View (Portable) Date of Exam: 02/15/25 Exam# [id number] Ordering Dr: Wilfred Bryan MD PROCEDURE: CHEST 1 VIEW (PORTABLE) 02/15/2025 REASON FOR EXAM: SHORTNESS OF BREATH TECHNIQUE: Frontal view of the chest. FINDINGS: Hardware: None Heart: Normal size Lungs: Clear Bones: No aggressive Other: RAD/Chest 1 View (Portable) IMPRESSION: No acute process Reading Location: [facility]- CC: Dr. Wilfred Bryan MD; Dr. Danish Davila DO ~ Railroad Shop Inspector: Signed [facility]06-10-2025 Telephone encounter Note* Telephone Encounter - Mia Alvarez MA - 02/11/2025 9:02 AM EDT Patient advised and voiced understanding. [id number] Miscellaneous Notes* Telephone Encounter - Mia Alvarez MA - 02/11/2025 9:02 AM EDT Patient advised and voiced understanding. * Telephone Encounter - Mia Alvarez MA - 02/10/2025 5:42 PM EDT Called patient to relay provider message left voicemail to call office back. Mychart message sent to patient. Please relay message to patient. * Addendum Note - Juju Patton MA - 02/10/2025 3:52 PM EDTAddended by: JUJU PATTON on: 02/10/2025 03:52 PM Modules accepted: Orders * Telephone Encounter - Dory Dumont - 02/10/2025 3:40 PM EDT Message released to patient as written. Patient's further questions if applicable: Were all questions from office addressed or relayed to the patient from encounter: Yes. I released the following to the doctor: Antibiotic, and prednisone prescribed to her local pharmacy. I would take the prednisone 5 days dueto her emphysema She asked about her trazodone being called in as well. She said she takes 1 1/2 nightly. She needs a new script sent in. Please advise documented in this encounterSMagruder [id number] Telephone encounter Note* Telephone Encounter - Mia Alvarez MA - 02/10/2025 5:42 PM EDT Called patient to relay provider message left voicemail to call office back. Mychart message sent to patient. Please relay message to patient. [facility] [id number] Miscellaneous Notes* Telephone Encounter - Mia Alvarez MA - 02/10/2025 5:42 PM EDT Called patient to relay provider message left voicemail to call office back. Mychart message sent to patient. Please relay message to patient. * Addendum Note - Juju Patton MA - 02/10/2025 3:52 PM EDTAddended by: JUJU PATTON on: 02/10/2025 03:52 PM Modules accepted: Orders * Telephone Encounter - Dory Dumont - 02/10/2025 3:40 PM EDT Message released to patient as written. Patient's further questions if applicable: Were all questions from office addressed or relayed to the patient from encounter: Yes. I released the following to the doctor: Antibiotic, and prednisone prescribed to her local pharmacy. I would take the prednisone 5 days dueto her emphysema She asked about her trazodone being called in as well. She said she takes 1 1/2 nightly. She needs a new script sent in. Please advise documented in this encounterSMagruder [id number] Note* Addendum Note - Juju Patton MA - 02/10/2025 3:52 PM EDTAddended by: JUJU PATTON on: 02/10/2025 03:52 PM Modules accepted: Orders [facility] [id number] Note* Addendum Note - Juju Patton MA - 02/10/2025 3:52 PM EDTAddended by: JUJU PATTON on: 02/10/2025 03:52 PM Modules accepted: Orders [facility] [id number] Note* Addendum Note - Juju Patton MA - 02/10/2025 3:52 PM EDTAddended by: JUJU PATTON on: 02/10/2025 03:52 PM Modules accepted: Orders [facility] [id number] Note* Addendum Note - Juju Patton MA - 02/10/2025 3:52 PM EDTAddended by: JUJU PATTON on: 02/10/2025 03:52 PM Modules accepted: Orders [facility] [id number] Note* Addendum Note - Juju Patton MA - 02/10/2025 3:52 PM EDTAddended by: JUJU PATTON on: 02/10/2025 03:52 PM Modules accepted: Orders [facility] [id number] Telephone encounter Note* Telephone Encounter - Dory Dumont - 02/10/2025 3:40 PM EDT Message released to patient as written. Patient's further questions if applicable: Were all questions from office addressed or relayed to the patient from encounter: Yes. I released the following to the doctor: Antibiotic, and prednisone prescribed to her local pharmacy. I would take the prednisone 5 days dueto her emphysema She asked about her trazodone being called in as well. She said she takes 1 1/2 nightly. She needs a new script sent in. Please advise [facility] [id number] Telephone encounter Note* Telephone Encounter - Juju Patton MA - 02/10/2025 10:47 AM EDT Recent Visits Date Type Provider Dept 11/12/24 Office Visit Siomara Estrada PA-C [facility] 02/22/24 Office Visit Gasper Nelson DO [facility] Showing recent visits within past 365 [...] labs completed in chart? N/A [facility] [id number] Miscellaneous Notes* Telephone Encounter - Juju Patton MA - 02/10/2025 10:47 AM EDT Recent Visits Date Type Provider Dept 11/12/24 Office Visit Siomara Estrada PA-C [facility] 02/22/24 Office Visit Gasper Nelson DO [facility] Showing recent visits within past 365 [...] completed in chart? N/A documented in this encounterSMagruder [id number] Telephone encounter Note* Telephone Encounter - Sara Munoz LPN - 12/13/2024 8:24 AM EDT Recent Visits Date Type Provider Dept 11/12/24 Office Visit [facility] 02/22/24 Office Visit Gasper Nelson DO [facility] Showing recent visits within past 365 [...] 01/13/2023 NONHDLCHOLES 174 (H) 01/13/2023 [facility] [id number] Miscellaneous Notes* Telephone Encounter - Sara Munoz LPN - 12/13/2024 8:24 AM EDT Recent Visits Date Type Provider Dept 11/12/24 Office Visit [facility] 02/22/24 Office Visit Gasper Nelson DO [facility] Showing recent visits within past [...] NONHDLCHOLES 174 (H) 01/13/2023 documented in this encounterSMagruder [id number] NoteOutreach to patient to provide information on how to enroll in silver sneakers and she requested refill of Trazadone for sleep issues last filled in 06/28 for 90 days, last OV 11/12/24[facility]03-31-[facility]25 Telephone encounter Note* Telephone Encounter - Brissa Warner RN - 12/02/2024 1:06 PM EDT Outreach to patient to provide information on how to enroll in silver sneakers and she requested refill of Trazadone for sleep issues last filled in 06/28 for 90 days, last OV 11/12/24 [facility] [id number] Miscellaneous Notes* Telephone Encounter - Brissa Warner RN - 12/02/2024 1:06 PM EDT Outreach to patient to provide information on how to enroll in silver sneakers and she requested refill of Trazadone for sleep issues last filled in 06/28 for 90 days, last OV 11/12/24 documented in this [facility]03-11-2025 Evaluation + Plan note* Assessment & Plan Note - Siomara Estrada PA-C - 11/12/2024 9:13 AM EDTAssociated Problem(s): Hypercholesterolemia - Chronic stable was taking simvastatin 80 mg daily but felt that that was too much and she was concerned about problems with her liver so she has been cutting in half and taking 40 mg daily. Will recheck her levels today but I believe this is reasonable enough as her levels have been adequately controlled [facility] [id number] Miscellaneous Notes* Assessment & Plan Note - Siomara Estrada PA-C - 11/12/2024 9:13 AM EDTAssociated Problem(s): Hypercholesterolemia - Chronic stable was taking simvastatin 80 mg daily but felt that that was too much and she was concerned about problems with her liver so she has been cutting in half and taking 40 mg daily. Will recheck her levels today but I believe this is reasonable enough as her levels have been adequately controlled * Assessment & Plan Note - Siomara Estrada PA-C - 11/12/2024 9:12 AM EDTAssociated Problem(s): GERD (gastroesophageal reflux disease) - Chronic stable she will continue on esomeprazole 40 mg daily. * Assessment & Plan Note - Siomara Estrada PA-C - 11/12/2024 9:11 AM EDTAssociated Problem(s): COPD (chronic obstructive pulmonary disease) (HCC) - Chronic stable patient was recently treated for flareup with amoxicillin and prednisone she can take the prednisone she is requesting a lower dose Medrol Dosepak and a second round of antibiotics that she started in some generalized wheezing and congestion strongly encouraged smoking cessation. documented in this encounterSMagruder [id number] Evaluation + Plan note* Assessment & Plan Note - Siomara Estrada PA-C - 11/12/2024 9:12 AM EDTAssociated Problem(s): GERD (gastroesophageal reflux disease) - Chronic stable she will continue on esomeprazole 40 mg daily. [facility] [id number] Evaluation + Plan note* Assessment & Plan Note - Siomara Estrada PA-C - 11/12/2024 9:11 AM EDTAssociated Problem(s): COPD (chronic obstructive pulmonary disease) (HCC) - Chronic stable patient was recently treated for flareup with amoxicillin and prednisone she can take the prednisone she is requesting a lower dose Medrol Dosepak and a second round of antibiotics that she started in some generalized wheezing and congestion strongly encouraged smoking cessation. [facility] HospitalXqygpd09-46-4314 History of Present illness Narrative* Siomara Estrada PA-C - 11/12/2024 8:40 AM EDT Images from the original note were not included. [facility] - [address] [facility] [address] Dept: [phone] Dept Chief Complaint: Ashley Gómez is an [...] series) 11/12/2025 (Originally 2014) COVID-19 Vaccine ( - season) 2025 (Originally 05/05/2024) Depression Monitoring 05/15/2025 [...] Sitting, BP Cuff Size: Adult) Pulse 83 Temp36.2 C (97.2 F) (Temporal) Ht 5' 4 [...] this issue and continues to work at [employer]. Would like to get involved with [employer]. Health Habits/Nutrition: Health Habits / Nutrition On [...] current issues, And agreeable to look into silver sneakers Hearing/ Vision: Hearing / Vision Do [...] to make appointment with his / her internet marketing specialist Safety: Safety Do you have a [...] a typical day when you are drinking?: Patientdoes not drink Q3: How often do you have six or more drinks on one occasion?: Never Audit-C Score: 0 Skip to questions 9-10?: 1 Social Drivers of Health: SDOH risk assessment performed and documented today by members of the health care team. A total time of 5-10 minutes was spent obtaining information from the patient and discussing options to addressthe patient's social risk factors and unmet needs. Social Drivers of Health with Concerns Concerns Present Tobacco Use: High Risk (11/12/2024) Physical Activity: Inactive (11/12/2024) Social Connections: Socially Isolated (11/12/2024) Unknown Concern Housing Stability: Unknown (11/12/2024) documented in this [facility]03-11-2025 Instructions* Patient Instructions* Siomara Estrada PA-C - 11/12/2024 8:40 AM EDT Personalized Preventative Plan for Ashley Gómez - 11/12/2024 Medicare offers a range of preventative health benefits. Some of the tests and screenings are paid in full while others may be subject to a deductible, co- insurance, and / or copay. Some of these benefits include a comprehensive review of your medical history including lifestyle, illnesses that mayrun in your family, and various assessments and [...] Recommendations: A preventive eye exam by an internet marketing specialist is recommended every 1-2 years to screen for glaucoma, cataracts, macular degeneration, and other eye disorders. A preventive dental visit is recommended every 6 months. Try to get at least 150 minutes of exercise per week or 10,000 steps per day on a pedometer. You need 1200-1500mg of calcium and 5831-2767 international units of vitamin D per day. [...] bicycle or a motorcycle documented in this [facility]02-27-2025 History of Present illness Narrative* Gasper Nelson, - 10/31/2024 12:00 PM EST Images from the original note were not included. [facility] - [address] [facility] [address] Dept: [phone] Dept Loc: [phone] Patient was identified and seen today via Telehealth by agreement and consent. I used the followingTelehealth technology: Audio and video capabilities. Patient location: [...] guarantees to the patient. The patient has alsobeen advised to contact this office for worsening conditions or problems, and seek emergency medical treatment and/or call 911 if the patient deems either necessary. The patient stated that they are currently in the state of [place]. If the patient is a minor, permission [...] some liquids. She has not had diarrhea fora day. He is urinating pretty well. Taking albuterol on a as needed basis. Of note she did not get immunized this fall for influenza orCOVID. Did not do any home viral testing. [...] DO 10/31/2024 12:20 PM documented in this encounterSMagruder [id number] Telephone encounter Note* Telephone Encounter - Michell Chin RN - 10/31/2024 7:21 AM EST S: Patient spoke with CAC nurse regarding [...] 10/31/24 at 12:00 PM. Pt given home careadvise for Cough. Patient understands care advice. No further needs at this time. Patient instructed to call back with new or worsening symptoms. Reason for Disposition [1] MILD difficulty breathing (e.g., minimal/no SOB at rest, SOB with walking, pulse <100) AND [2] still present when not coughing Protocols used: Cough - Acute Dvn-Mqpxuuewzm-RCJPN-AH [facility] [id number] Miscellaneous Notes* Telephone Encounter - Michell Chin RN - 10/31/2024 7:21 AM EST S: Patient spoke with CAC nurse regarding [...] 10/31/24 at 12:00 PM. Pt given home careadvise for Cough. Patient understands care advice. No further needs at this time. Patient instructed to call back with new or worsening symptoms. Reason for Disposition [1] MILD difficulty breathing (e.g., minimal/no SOB at rest, SOB with walking, pulse <100) AND [2] still present when not coughing Protocols used: Cough - Acute Mbd-Ihwjrsqobv-XWSRV-AH documented in this encounterSMagruder HospitalWhijsc01-69-1775 Telephone encounter Note* Telephone Encounter - Neeta Villeda RN - 10/01/2024 1:57 PM EST Received signed receipt of certified letter sent to patient. Scanned to media in chart. [facility] HospitalTizzyg05-36-4781 Miscellaneous Notes* Telephone Encounter - Neeta Villeda RN - 10/01/2024 1:57 PM EST Received signed receipt of certified letter sent to patient. Scanned to media in chart. * Telephone Encounter - Kianna Stevenson - 06/28/2024 8:47 AM EDT No auth needed. Faxed orders to [facility]-Scheduling for pt to be sched - SCS will sched/advise pt. My chart mess sent to patient with info to sched. * Telephone Encounter - Marycruz Mazariegos MA - 06/27/2024 4:27 PM EDT Vincent Perez, It looks like the patient navigator has done all that she can do. So it looks like all avenues havebeen exhausted to try and reach this patient to schedule. * Telephone Encounter - Kianna Stevenson - 06/27/2024 2:02 PM EDT To April to follow up * Telephone Encounter - Joann Jane RCP - 06/27/2024 9:43 AM EDT Mrs. Gómez called in after receiving certified letter. She would like to return to complete the recommended lung screening 3 month follow-up imaging previously ordered by Dr. Nelson. Will send message to provider office to place new referral for imaging and assist patient with scheduling. She prefers [place] for imaging location and is available on Monday the if there are any appointments available. * Telephone Encounter - Joann Jane RCP - 06/20/2024 2:31 PM EDT Patient still has not completed the recommended lung screening follow-up imaging. Navigator mailed certified letter, lung nodule education materials, and offered to assist with overcoming barriers to care. * Telephone Encounter - Joann Jane RCP - 04/23/2024 1:58 PM EDT Ms. Gómez had a Lung RADS [address] scan on 12/18/2023. Her primary care provider placed a referral for the recommended 3-month follow- up CT chest. [facility] scheduling and provider office have made multiple attempts to contact patient to assist with scheduling imaging. Navigator mailed patient lung screening follow-up reminder letter and lung nodule patient information. If patient does not call in to schedule imaging, navigator will plan to send certified letter. documented in this encounterSMagruder HospitalJuzvxr82-83-6300 Telephone encounter Note* Telephone Encounter - Mia Alvarez MA - 09/30/2024 11:56 AM EST Recent Visits Date Type Provider Dept 02/22/24 Office Visit Gasper Nelson DO [facility] Showing recent visits within past 365 days and meeting all other requirements Future Appointments Date Type Provider Dept 11/12/24 Appointment DO [facility] Showing future appointments within next 90 [...] recent labs completed in chart? N/A None [facility] HospitalCmvbyy70-13-4969 Miscellaneous Notes* Telephone Encounter - Mia Alvarez MA - 09/30/2024 11:56 AM EST Recent Visits Date Type Provider Dept 02/22/24 Office Visit DO [facility] Showing recent visits within past 365 days and meeting all other requirements Future Appointments Date Type Provider Dept 11/12/24 Appointment DO Gillian Bai [facility] Showing future appointments within [...] in chart? N/A None documented in this [facility]01-13-2025 Telephone encounter Note* Telephone Encounter - Sara Munoz LPN - 09/16/2024 2:12 PM EST Recent Visits Date Type Provider Dept 02/22/24 Office Visit Gasper Nelson DO [facility] Showing recent visits within past 365 days and meeting all other requirements Future Appointments Date Type Provider Dept 09/30/24 Appointment Gasper Nelson DO [facility] Showing future appointments within next 90 [...] 01/13/2023 NONHDLCHOLES 174 (H) 01/13/2023 [facility] HospitalArigbx73-08-1177 Miscellaneous Notes* Telephone Encounter - Sara Munoz LPN - 09/16/2024 2:12 PM EST Recent Visits Date Type Provider Dept 02/22/24 Office Visit Gasper Nelson [facility] Showing recent visits within past 365 days and meeting all other requirements Future Appointments Date Type Provider Dept 09/30/24 Appointment DO [facility] Showing future appointments within next 90 days [...] NONHDLCHOLES 174 (H) 01/13/2023 documented in this [facility]-20-2024 Telephone encounter Note* Telephone Encounter - Mia Alvarez MA - 07/24/2024 11:42 AM EST Recent Visits Date Type Provider Dept 02/22/24 Office Visit DO [facility] 07/31/23 Office Visit DO Pavan Baimg [facility] Showing recent visits within past 365 days and meeting all other requirements Future Appointments Date Type Provider Dept 08/21/24 Appointment Gasper Nelson DO [facility] Showing future appointments within next [...] CHOLHDLCRATI 4.2 01/13/2023 NONHDLCHOLES 174 (H) 01/13/2023 [facility]Par[facility] PharmaceuticalsDvkqqs27-64-1553 Miscellaneous Notes* Telephone Encounter - Mia Alvarez MA - 07/24/2024 11:42 AM EST Recent Visits Date Type Provider Dept 02/22/24 Office Visit Gasper Nelson DO [facility] 07/31/23 Office Visit Gasper Nelson DO [facility] Showing recent visits within past 365 days and meeting all other requirements Future Appointments Date Type Provider Dept 08/21/24 Appointment Gasper Nelson DO [facility] Showing future appointments within next [...] NONHDLCHOLES 174 (H) 01/13/2023 documented in this [facility]10-25-2024 Telephone encounter Note* Telephone Encounter - Helen Jennings - 06/28/2024 3:26 PM EDT Reason for call: Pari, I am calling [...] her scheduled. Thank you Contact [facility] HospitalDuknxo34-10-1984 Miscellaneous Notes* Telephone Encounter - Helen Jennings - 06/28/2024 3:26 PM EDT Reason for call: Pari, I am calling [...] scheduled. Thank you Contact documented in this [facility]10-25-2024 Telephone encounter Note* Telephone Encounter - Kianna Stevenson - 06/28/2024 8:47 AM EDT No auth needed. Faxed orders to [facility]Sched[facility] for pt to be sched - [facility] will sched/advise pt. My chart mess sent to patient with info to sched. [facility] HospitalUiropo74-02-8964 Miscellaneous Notes* Telephone Encounter - Kianna Stevenson - 06/28/2024 8:47 AM EDT No auth needed. Faxed orders to [facility]Scheduling for pt to be sched - [facility]CS will sched/advise pt. My chart mess sent to patient with info to sched. * Telephone Encounter - Marycruz Mazariegos MA - 06/27/2024 4:27 PM EDT Vincent Perez, It looks like the patient navigator has done all that she can do. So it looks like all avenues havebeen exhausted to try and reach this patient to schedule. * Telephone Encounter - Kianna Stevenson - 06/27/2024 2:02 PM EDT To April to follow up * Telephone Encounter - Joann Jane RCP - 06/27/2024 9:43 AM EDT Mrs. Gómez called in after receiving certified letter. She would like to return to complete the recommended lung screening 3 month follow-up imaging previously ordered by Dr. Nelson. Will send message to provider office to place new referral for imaging and assist patient with scheduling. She prefers [place] for imaging location and is available on Monday the if there are any appointments available. * Telephone Encounter - Joann Jane RCP - 06/20/2024 2:31 PM EDT Patient still has not completed the recommended lung screening follow-up imaging. Navigator mailed certified letter, lung nodule education materials, and offered to assist with overcoming barriers to care. * Telephone Encounter - Joann Jane RCP - 04/23/2024 1:58 PM EDT Ms. Gómez had a Lung RADS [address] scan on 12/18/2023. Her primary care provider placed a referral for the recommended 3-month follow- up CT chest. [facility] central scheduling and provider office have made multiple attempts to contact patient to assist with scheduling imaging. Navigator mailed patient lung screening follow-up reminder letter and lung nodule patient information. If patient does not call in to schedule imaging, navigator will plan to send certified letter. documented in this encounterSMagruder HospitalFptvfz36-21-9840 Telephone encounter Note* Telephone Encounter - Marycruz Mazariegos MA - 06/27/2024 4:27 PM EDT Vincent Perez, It looks like the patient navigator has done all that she can do. So it looks like all avenues havebeen exhausted to try and reach this patient to schedule. [facility] HospitalBronzb16-58-0141 Miscellaneous Notes* Telephone Encounter - Marycruz Mazariegos MA - 06/27/2024 4:27 PM EDT Vincent Perez, It looks like the patient navigator has done all that she can do. So it looks like all avenues havebeen exhausted to try and reach this patient to schedule. * Telephone Encounter - Kianna Stevenson - 06/27/2024 2:02 PM EDT To April to follow up * Telephone Encounter - Joann Jane RCP - 06/27/2024 9:43 AM EDT Mrs. Gómez called in after receiving certified letter. She would like to return to complete the recommended lung screening 3 month follow-up imaging previously ordered by Dr. Nelson. Will send message to provider office to place new referral for imaging and assist patient with scheduling. She prefers [place] for imaging location and is available on Monday the if there are any appointments available. * Telephone Encounter - Joann Jane RCP - 06/20/2024 2:31 PM EDT Patient still has not completed the recommended lung screening follow-up imaging. Navigator mailed certified letter, lung nodule education materials, and offered to assist with overcoming barriers to care. * Telephone Encounter - Joann Jane RCP - 04/23/2024 1:58 PM EDT Ms. Gómez had a Lung RADS [address] scan on 12/18/2023. Her primary care provider placed a referral for the recommended 3-month follow- up CT chest. [facility] scheduling and provider office have made multiple attempts to contact patient to assist with scheduling imaging. Navigator mailed patient lung screening follow-up reminder letter and lung nodule patient information. If patient does not call in to schedule imaging, navigator will plan to send certified letter. documented in this [facility]10-24-2024 Telephone encounter Note* Telephone Encounter - Kianna Stevenson - 06/27/2024 2:02 PM EDT Kishan Chen to follow up [facility] [id number] Telephone encounter Note* Telephone Encounter - Joann Jane RCP - 06/27/2024 9:43 AM EDT Mrs. Gómez called in after receiving certified letter. She would like to return to complete the recommended lung screening 3 month follow-up imaging previously ordered by Dr. Nelson. Will send message to provider office to place new referral for imaging and assist patient with scheduling. She prefers [place] for imaging location and is available on Monday the if there are any appointments available. [facility] HospitalHijfmr87-96-8753 NotePatient still has not completed the recommended lung screening follow-up imaging. Navigator mailed certified letter, lung nodule education materials, and offered to assist with overcoming barriers to care.[facility]10-17-2024 Telephone encounter Note* Telephone Encounter - Joann Jane RCP - 06/20/2024 2:31 PM EDT Patient still has not completed the recommended lung screening follow-up imaging. Navigator mailed certified letter, lung nodule education materials, and offered to assist with overcoming barriers to care. [facility] HospitalJsbkgl32-17-1934 Miscellaneous Notes* Telephone Encounter - Joann Jane RCP - 06/20/2024 2:31 PM EDT Patient still has not completed the recommended lung screening follow-up imaging. Navigator mailed certified letter, lung nodule education materials, and offered to assist with overcoming barriers to care. * Telephone Encounter - Joann Jane RCP - 04/23/2024 1:58 PM EDT Ms. Gómez had a Lung RADS [address] scan on 12/18/2023. Her primary care provider placed a referral for the recommended 3-month follow- up CT chest. [facility] central scheduling and provider office have made multiple attempts to contact patient to assist with scheduling imaging. Navigator mailed patient lung screening follow-up reminder letter and lung nodule patient information. If patient does not call in to schedule imaging, navigator will plan to send certified letter. documented in this [facility]10-08-2024 Telephone encounter Note* Telephone Encounter - Sara Munoz LPN - 06/11/2024 5:05 PM EDT RX loaded Next ov 08/21/24 [facility] HospitalDsqvtt84-76-9572 Miscellaneous Notes* Telephone Encounter - Sara Munoz LPN - 06/11/2024 5:05 PM EDT RX loaded Next ov 08/21/24 * Telephone Encounter - Portia Aj - 06/11/2024 4:15 PM EDT Medication name: traZODone (Desyrel) 150 MG tablet [...] up the medication: Yes documented in this [facility]10-08-2024 Telephone encounter Note* Telephone Encounter - Portia Aj - 06/11/2024 4:15 PM EDT Medication name: traZODone (Desyrel) 150 MG tablet [...] picking up the medication: Yes [facility] [id number] [facility] Medical Records Department [address] [place] [id number] History Physical Exam 04/29/24 0756 MR#: [id number] Acct: [id number] Name: ASHLEY GÓMEZ Rep #: [id number] : 1955 68 From: Slim Friend DO PCP: Dr. Danish Davila, DO Status:[facility] Location: [place] [address] HPI - General General Date of Admission: 04/29/24 [...] Overall she is in fairly good health. [facility] Medical History (Updated 04/26/24 @ 14:43 by [...] none current occupational status: employed current occupation: [employer] Smoking Status: Former smoker Tobacco: How many [...] applicable): CC: Dr. Danish Davila DO; Slim Weiss DO SignedWCleveland Clinic [facility]08-20-2024 NoteMs. Gómez had a Lung RADS [address] scan on 12/18/2023. Her primary care provider placed a referral for the recommended 3-month follow-up CT chest. [facility] central scheduling and provider office have made multiple attempts to contact patient to assist with scheduling imaging. Navigator mailed patient lung screening follow-up reminder letter and lung nodule patient information. If patient does not call in to schedule imaging, navigator will plan to send certified letter.[facility]08-20-2024 Telephone encounter Note* Telephone Encounter - Joann Jane RCP - 04/23/2024 1:58 PM EDT Ms. Gómez had a Lung RADS [address] scan on 12/18/2023. Her primary care provider placed a referral for the recommended 3-month follow- up CT chest. [facility] central scheduling and provider office have made multiple attempts to contact patient to assist with scheduling imaging. Navigator mailed patient lung screening follow-up reminder letter and lung nodule patient information. If patient does not call in to schedule imaging, navigator will plan to send certified letter. T [facility] HospitalRyfzuq71-04-0156 Telephone encounter Note* Telephone Encounter - Marycruz Mazariegos MA - 04/17/2024 7:37 AM EDT Recent Visits Date Type Provider Dept 02/22/24 Office Visit Gasper Maggie [place], DO [facility] 07/31/23 Office Visit Gasper Serrano DO [place] [facility] Showing recent visits within [...] from any other provider? No None [facility]08-14-2024 Miscellaneous Notes* Telephone Encounter - Marycruz Mazariegos MA - 04/17/2024 7:37 AM EDT Recent Visits Date Type Provider Dept 02/22/24 Office Visit Gasper Maggie [place] DO [facility] 07/31/23 Office Visit Gasper Nelson DO [facility] [...] Nightly as needed for sleep. Provider: Gasper Nelson, DO Overdue for visit: No If yes - patient scheduled? Yes - 08/21/2024 Most recent labs completed in chart? Yes Verified pharmacy: yes Verified day(s) supplied: yes Verified refill(s) needed (previous prescription showing no refills in chart): Yes Have you received any controlled medications from any other provider? No None documented in this [facility]08-09-2024 Telephone encounter Note* Telephone Encounter - Farida Mary - 04/12/2024 7:31 AM EDT Orders cancelled [facility] HospitalHxabiu50-15-9067 Miscellaneous Notes* Telephone Encounter - Farida Mary - 04/12/2024 7:31 AM EDT Orders cancelled * Telephone Encounter - Rosa Rodas - 04/11/2024 4:07 PM EDT We have been unable to reach your patient to schedule their testing. Test Name: CT lung screening follow up, PFT and Mammo 1st Attempt: 03/30/24 2nd Attempt: 04/11/24 [facility] Central Scheduling documented in this [place] [address]-08-2024 Telephone encounter Note* Telephone Encounter - Rosa Rodas - 04/11/2024 4:07 PM EDT We have been unable to reach your patient to schedule their testing. Test Name: CT lung screening follow up, PFT and Mammo 1st Attempt: 03/30/24 2nd Attempt: 04/11/24 Neto Dawson Central Scheduling [facility] HospitalYscjqn32-46-2389 Miscellaneous Notes* Telephone Encounter - Rosa Rodas - 04/11/2024 4:07 PM EDT We have been unable to reach your patient to schedule their testing. Test Name: CT lung screening follow up, PFT and Mammo 1st Attempt: 03/30/24 2nd Attempt: 04/11/24 Thanks, [facility] Central Scheduling documented in this [facility]06-20-2024 Telephone encounter Note* Telephone Encounter - Kianna Stevenson - 02/22/2024 2:26 PM EDT Referral / orders pended for dx and doctor's signature [facility] HospitalDhazoa21-26-5478 Miscellaneous Notes* Telephone Encounter - Kianna Stevenson - 02/22/2024 2:26 PM EDT Referral / orders pended for dx and doctor's signature documented in this [facility]06-20-2024 History of Present illness Narrative* Gasper Nelson DO - 02/22/2024 1:00 PM EDT Images from the original note were not included. [facility] [address] [facility] [address] Visit type: Established Patient Reason [...] overall checkup. She wonders whether she needs anotherantibiotic. Has productive cough of clear phlegm forever. No chest pain fever or change in dyspnea.Stop smoking in 02 January. Of note is [...] MCG/ACT inhaler Inhale 2 puffs every 4 hoursas needed for wheezing or shortness of breath. 6.7 g 1 [DISCONTINUED] alendronate (Fosamax) 70 MG tablet TAKE 1 TABLET WEEKLY DIRECTED. SEE PACKAGE FORADDITIONAL INSTRUCTIONS 12 tablet 1 [DISCONTINUED] esomeprazole (NexIUM) [address] capsule TAKE 1 CAPSULE EVERY MORNING BEFORE [id number] capsule 1 [DISCONTINUED] simvastatin (Zocor) 80 MG tablet Take 1 tablet (80 mg) by mouth Nightly for 180 doses. 90 tablet 1 [DISCONTINUED] traZODone (Desyrel) 100 MG tablet TAKE 1 TABLET (100 MG) BY MOUTH NIGHTLY. 90 tablet1 [DISCONTINUED] venlafaxine XR (Effexor XR) 150 MG [...] Upper rhonchi clear with cough. No wheezing ralesor egophony Abdominal: General: Bowel sounds are normal. [...] changes, or axillary adenopathy documented in this [facility]-07-2024 Telephone encounter Note* Telephone Encounter - Fawn Hassan MA - 02/09/2024 9:30 AM EDT Pt scheduled with Dr Nelson 02/22/24 [facility] HospitalNzdrjj79-[facility]-9030 Miscellaneous Notes* Telephone Encounter - Fawn Hassan MA - 02/09/2024 9:30 AM EDT Pt scheduled with Dr Nelson 02/22/24 * Telephone Encounter - Fawn Hassan MA - 02/05/2024 11:02 AM EDT Left message for patient to return call to the office to get scheduled please schedule patient either February [address] Argentina dawson. * Telephone Encounter - Ramila Lee - 02/05/2024 9:02 AM EDT Name of caller: Isauro Contact phone number: [phone] Relationship to Patient: Patient Provider: Dr. Nelson Practice: [facility] Chief Complaint/Reason for Call: Pt Pt had to reschedule appointment. Please contact pt if appointment is not soon enough, pt is concerned FYI Best time of day caller can be reached: Any Patient advised that office/PCP has 24-48 business hours to return their call: No documented in this encounterSMagruder HospitalQcurei87-13-5100 Telephone encounter Note* Telephone Encounter - Fawn Hassan MA - 02/05/2024 11:02 AM EDT Left message for patient to return call to the office to get scheduled please schedule patient either February [address] Argentina dawson. [facility] HospitalXzkgii12-01-4817 Miscellaneous Notes* Telephone Encounter - Fawn Hassan MA - 02/05/2024 11:02 AM EDT Left message for patient to return call to the office to get scheduled please schedule patient either February [address] Argentina dawson. * Telephone Encounter - Ramila Lee - 02/05/2024 9:02 AM EDT Name of caller: Isauro Contact phone number: [phone] Relationship to Patient: Patient Provider: Dr. Nelson Practice: [facility] Chief Complaint/Reason for Call: Pt Pt had to reschedule appointment. Please contact pt if appointment is not soon enough, pt is concerned FYI Best time of day caller can be reached: Any Patient advised that office/PCP has 24-48 business hours to return their call: No documented in this encounterSMagruder HospitalBewvqy95-56-1971 Telephone encounter Note* Telephone Encounter - Ramila Lee - 02/05/2024 9:02 AM EDT Name of caller: Isauro Contact phone number: [phone] Relationship to Patient: Patient Provider: Dr. Nelson Practice: [facility] Chief Complaint/Reason for Call: Pt Pt had to reschedule appointment. Please contact pt if appointment is not soon enough, pt is concerned FYI Best time of day caller can be reached: Any Patient advised that office/PCP has 24-48 business hours to return their call: No [facility] HospitalWahqpv94-80-3952 Telephone encounter Note* Telephone Encounter - Juju Patton MA - 01/02/2024 10:56 AM EDT Pharmacy updated. [facility] HospitalSmckwj53-56-2901 Miscellaneous Notes* Telephone Encounter - Juju Patton MA - 01/02/2024 10:56 AM EDT Pharmacy updated. * Telephone Encounter - Mary Zavaleta - 01/02/2024 10:46 AM EDT Name of caller: [facility] Contact phone number: [phone] Relationship to Patient: patient Provider: [facility] Practice: [facility] Chief Complaint/Reason for Call: Pt called to report that her antibiotic and Prednisone were not sent to [facility] local [facility] as requested - they were accidentally sent to [facility] pharmacy by mistake. Please send to [facility] on [address] in [place] listed in her chart instead. Please call once has been sent over. Best time of day caller can be reached: Any Patient advised that office/PCP has 24-48 business hours to return their call: No documented in this encounterSMagruder HospitalJanezj79-54-9542 Telephone encounter Note* Telephone Encounter - Mary Zavaleta - 01/02/2024 10:46 AM EDT Name of caller: [facility] Contact phone number: [phone] Relationship to Patient: patient Provider: [facility] Practice: [facility] Chief Complaint/Reason for Call: Pt called to report that her antibiotic and Prednisone were not sent to [facility] local [facility] as [facility] - they were accidentally sent to [facility] pharmacy by mistake. Please send to [facility] on [address] in [place] listed in her chart instead. Please call once has been sent over. Best time of day caller can be reached: Any Patient advised that office/PCP has 24-48 business hours to return their call: No [facility] HospitalSrhbnp06-44-8776 Telephone encounter Note* Telephone Encounter - Nelly Villa LPN - 12/22/2023 11:56 AM EDT LM - called to relay message to pt that she can schedule out into February [facility] HospitalAmnubb52-26-7795 Miscellaneous Notes* Telephone Encounter - Nelly Villa LPN - 12/22/2023 11:56 AM EDT LM - called to relay message to pt that she can schedule out into February * Telephone Encounter - Agnes Cedillo MA - 12/22/2023 11:20 AM EDT noted * Telephone Encounter - Nigel Caicedo - 12/22/2023 8:31 AM EDT Name of caller: Isauro Contact phone number: [phone] (work number) Relationship to Patient: patient Provider: [place] Practice: [facility] Chief Complaint/Reason for Call: Patient calling back about 01/22/24 appointment. States she needs something in the afternoon that day due to transportation. States overall she can only do Mondays. Advised patient she has appointment on 02/05/24 but states this is too far out as provider wanted to seeher back in 1 month following antibiotic course. No availability. Please advise. Best time of day caller can be reached: Patient will be at work until 5pm but states she can still be reached at number above, which is the number for [employer] where she works. Patient advised that office/PCP has 24-48 business hours to return their call: Yes documented in this encounterSMagruder HospitalXnicbv73-95-6100 Telephone encounter Note* Telephone Encounter - Agnes Cedillo MA - 12/22/2023 11:20 AM EDT noted [place] [id number] Telephone encounter Note* Telephone Encounter - Nigel Ki Caicedo - 12/22/2023 8:31 AM EDT Name of caller: Isauro Contact phone number: [phone] (work number) Relationship to Patient: patient Provider: [place] Practice: [facility] Chief Complaint/Reason for Call: Patient calling back about 01/22/24 appointment. States she needs something in the afternoon that day due to transportation. States overall she can only do Mondays. Advised patient she has appointment on 02/05/24 but states this is too far out as provider wanted to seeher back in 1 month following antibiotic course. No availability. Please advise. Best time of day caller can be reached: Patient will be at work until 5pm but states she can still be reached at number above, which is the number for [employer] where she works. Patient advised that office/PCP has 24-48 business hours to return their call: Yes [place] [id number] Telephone encounter Note* Telephone Encounter - Julian Dan RN - 12/21/2023 5:49 PM EDT duplicate [place] [id number] Miscellaneous Notes* Telephone Encounter - Julian Dan RN - 12/21/2023 5:49 PM EDT duplicate documented in this [place]SJeff[place] [id number] Telephone encounter Note* Telephone Encounter - Heather Jean - 12/21/2023 5:44 PM EDT Medication name: albuterol (Proventil HFA) 108 (90 [...] picking up the medication: Yes [facility] HospitalCevyva40-64-7954 Miscellaneous Notes* Telephone Encounter - Heather Jean - 12/21/2023 5:44 PM EDT Medication name: albuterol (Proventil HFA) 108 (90 [...] up the medication: Yes documented in this [facility]-15-2024 Telephone encounter Note* Telephone Encounter - Agnes Cedillo MA - 12/18/2023 10:22 AM EDT Recent Visits Date Type Provider Dept 07/31/23 Office Visit DO [facility] 01/13/23 Office Visit DO [facility] [place] [facility] Showing recent visits within past 365 days and meeting all other requirements Future Appointments Date Type Provider Dept 02/05/24 Appointment Gasper Nelson DO [facility] Showing future appointments within next [...] labs completed in chart? N/A [facility] HospitalFkjufo69-20-1979 Miscellaneous Notes* Telephone Encounter - Agnes Cedillo MA - 12/18/2023 10:22 AM EDT Recent Visits Date Type Provider Dept 07/31/23 Office Visit Gasper Nelson DO [facility] 01/13/23 Office Visit Gasper Nelson DO [place] [facility] Showing recent visits within past 365 days and meeting all other requirements Future Appointments Date Type Provider Dept 02/05/24 Appointment Gasper Nelson DO [facility] Showing future appointments within next 90 [...] completed in chart? N/A documented in this [place] [address]-28-2023 Telephone encounter Note* Telephone Encounter - [facility] - 08/01/2023 8:22 AM EST Orders pended for doctor's signature [place] [id number] Miscellaneous Notes* Telephone Encounter - Kianna Stevenson - 08/01/2023 8:22 AM EST Orders pended for doctor's signature * Telephone Encounter - Kianna Stveenson - 08/01/2023 8:15 AM EST ----- Message from Gasper Nelson DO sent at 07/31/2023 4:06 PM EST ----- Schedule LDCT for pt to be done in 11/2023 documented in this [address]28-2023 Telephone encounter Note* Telephone Encounter - Kianna Stevenson - 08/01/2023 8:15 AM EST ----- Message from Gasper Nelson DO sent at 07/31/2023 4:06 PM EST ----- Schedule LDCT for pt to be done in 11/2023 [facility] HospitalTraxne19-73-0360 History of Present illness Narrative* Gasper Nelson DO - 07/31/2023 3:30 PM EST Images from the original note were not included. [facility] [address] [place] [address] [address] [facility] [address] Visit type: Established Patient Reason for Visit: Follow-up (6 month med check) Assessment / Plan: Isauro was seen today for follow-up. Diagnoses and all orders for this visit: Chronic obstructive pulmonary disease, unspecified COPD type (HCC) (Primary) Comments: Clinically moderately severe. Add Wixela. She defers CT of the chest, chest x- ray and PFTs. Urged to quit smoking Depression, [...] work a fair number hours at the [employer] in [place] doing various jobs. Review of Systems denies recent earache headache or chest pain. No purulent phlegm. No substantial dyspnea on exertion. Denies heartburn or dysphagia. No abdominal pain. Bowels are regular. No melenaor blood. Rare arthralgias. She does prefer mammogram [...] TAKE 1 TABLET WEEKLY DIRECTED. SEE PACKAGE FORADDITIONAL INSTRUCTIONS 12 tablet 1 [DISCONTINUED] esomeprazole (NexIUM) [address] capsule TAKE 1 CAPSULE BY MOUTH EVERY MORNING (BEFOREBREAKFAST) 90 capsule 1 [DISCONTINUED] simvastatin (Zocor) 40 MG tablet Take 1 tablet (40 mg) by mouth Nightly for 90 doses. 90 tablet 3 [DISCONTINUED] traZODone (Desyrel) 100 MG tablet Take 1 tablet (100 mg) by mouth Nightly. 90 tablet1 [DISCONTINUED] venlafaxine XR (Effexor XR) 150 MG [...] are pink without edema documented in this [facility]-27-2023 History of Present illness Narrative* Gasper Nelson DO - 07/31/2023 3:30 PM EST Images from the original note were not included. [facility] [address] [place] [address] [address] [facility] [address] Visit type: Established Patient Reason for Visit: Follow-up (6 month med check) Assessment / Plan: Isauro was seen today for follow-up. Diagnoses and all orders for this visit: Chronic obstructive pulmonary disease, unspecified COPD type (HCC) (Primary) Comments: Clinically moderately severe. Add Wixela. She defers CT of the chest, chest x- ray and PFTs. Urged to quit smoking Depression, [...] work a fair number hours at the [employer] in [place] doing various jobs. Review of Systems denies recent earache headache or chest pain. No purulent phlegm. No substantial dyspnea on exertion. Denies heartburn or dysphagia. No abdominal pain. Bowels are regular. No melenaor blood. Rare arthralgias. She does prefer mammogram [...] TAKE 1 TABLET WEEKLY DIRECTED. SEE PACKAGE FORADDITIONAL INSTRUCTIONS 12 tablet 1 [DISCONTINUED] esomeprazole (NexIUM) [address] capsule TAKE 1 CAPSULE BY MOUTH EVERY MORNING (BEFOREBREAKFAST) 90 capsule 1 [DISCONTINUED] simvastatin (Zocor) 40 MG tablet Take 1 tablet (40 mg) by mouth Nightly for 90 doses. 90 tablet 3 [DISCONTINUED] traZODone (Desyrel) 100 MG tablet Take 1 tablet (100 mg) by mouth Nightly. 90 tablet1 [DISCONTINUED] venlafaxine XR (Effexor XR) 150 MG [...] are pink without edema documented in this [facility]-27-2023 Miscellaneous Notes* Addendum Note - Rosalind Quintero - 07/31/2023 3:30 PM ESTAddended by: ROSALIND QUINTERO on: 12/18/2023 08:32 AM Modules accepted: Orders documented in this [place] [address]27-[address]23 Note* Addendum Note - Rosalind Quintero - 07/31/2023 3:30 PM ESTAddended by: ROSALIND QUINTERO on: 12/18/2023 08:32 AM Modules accepted: Orders [place] [id number] Telephone encounter Note* Telephone Encounter - Sara Munoz LPN - 03/14/2023 11:39 AM EDT Signed Handicap placard signed and mailed to patient per their request. [facility] HospitalUycmsk86-90-0379 Miscellaneous Notes* Telephone Encounter - Sara Munoz LPN - 03/14/2023 11:39 AM EDT Signed Handicap placard signed and mailed to patient per their request. * Telephone Encounter - Sara Munoz LPN - 03/14/2023 9:13 AM EDT Rx loaded * Telephone Encounter - Shaista Gramajo - 03/14/2023 9:07 AM EDT Name of caller: Isauro Contact phone number: [phone] Relationship to Patient: patient Provider: [place] Practice: [facility] Chief Complaint/Reason for Call: Pt states she needs a script for a handicap placard to hang in hercar. She will need 2 placards. Please mail scripts to pt's home as soon as possible. Please call ptto advise. Best time of day caller can be reached: any Patient advised that office/PCP has 24-48 business hours to return their call: Yes documented in this encounterSMagruder HospitalYyykts25-06-0689 Telephone encounter Note* Telephone Encounter - Sara Munoz LPN - 03/14/2023 9:13 AM EDT Rx loaded [facility] HospitalMcqxly26-48-7391 Telephone encounter Note* Telephone Encounter - Shaista Gramajo - 03/14/2023 9:07 AM EDT Name of caller: Isauro Contact phone number: [phone] Relationship to Patient: patient Provider: [place] Practice: [facility] Chief Complaint/Reason for Call: Pt states she needs a script for a handicap placard to hang in hercar. She will need 2 placards. Please mail scripts to pt's home as soon as possible. Please call ptto advise. Best time of day caller can be reached: any Patient advised that office/PCP has 24-48 business hours to return their call: Yes [facility] HospitalCjsloo24-61-7534 Telephone encounter Note* Telephone Encounter - Kianna Stevenson - 03/02/2023 11:20 AM EDT Orders closed [facility] HospitalPqfokg93-88-3659 Miscellaneous Notes* Telephone Encounter - Kianna Stevenson - 03/02/2023 11:20 AM EDT Orders closed * Telephone Encounter - Sara Munoz LPN - 03/01/2023 8:07 AM EDT Talked to patient and she stated that [...] that is stated to get a CT. * Telephone Encounter - Sara Munoz LPN - 02/28/2023 4:16 PM EDT Placed call to patient to discuss provider questions of: Call the patient and specifically ask her how many cigarettes she smokes on the average per day andhow long she has been doing it. Message left on Tilckmail to return call. * Telephone Encounter - Kianna Stevenson - 02/28/2023 9:33 AM EDT Pt doesn't fit criteria for a CT-Lung screen. Pt needs to have a 20 year smoking history of 1-pack a day or 15 year history with 2-pack a day. Can orders be cancelled? * Telephone Encounter - Margarita Jones - 02/27/2023 1:33 PM EDT Patient called in and scheduled her CT Lung screening. The diagnosis code of F17.200 failed for Medical Necessity. Please correct diagnosis code on order. Thank you documented in this [facility]-28-2023 Telephone encounter Note* Telephone Encounter - Sara Munoz LPN - 03/01/2023 8:07 AM EDT Talked to patient and she stated that [...] that is stated to get a CT. [facility] [id number] Telephone encounter Note* Telephone Encounter - Sara Munoz LPN - 02/28/2023 4:16 PM EDT Placed call to patient to discuss provider questions of: Call the patient and specifically ask her how many cigarettes she smokes on the average per day andhow long she has been doing it. Message left on voicemail to return call. [facility] [id number] Miscellaneous Notes* Telephone Encounter - Sara Munoz LPN - 02/28/2023 4:16 PM EDT Placed call to patient to discuss provider questions of: Call the patient and specifically ask her how many cigarettes she smokes on the average per day andhow long she has been doing it. Message left on voicemail to return call. * Telephone Encounter - Kianna Stevenson - 02/28/2023 9:33 AM EDT Pt doesn't fit criteria for a CT-Lung screen. Pt needs to have a 20 year smoking history of 1-pack a day or 15 year history with 2-pack a day. Can orders be cancelled? * Telephone Encounter - Margarita Jones - 02/27/2023 1:33 PM EDT Patient called in and scheduled her CT Lung screening. The diagnosis code of F17.200 failed for Medical Necessity. Please correct diagnosis code on order. Thank you documented in this [facility]-27-2023 Telephone encounter Note* Telephone Encounter - Kianna Stevenson - 02/28/2023 9:33 AM EDT Pt doesn't fit criteria for a CT-Lung screen. Pt needs to have a 20 year smoking history of 1-pack a day or 15 year history with 2-pack a day. Can orders be cancelled? [facility] HospitalBcquli94-48-0471 Telephone encounter Note* Telephone Encounter - Margarita Jones - 02/27/2023 1:33 PM EDT Patient called in and scheduled her CT Lung screening. The diagnosis code of F17.200 failed for Medical Necessity. Please correct diagnosis code on order. Thank you [facility] HospitalMzpptm42-70-3325 Miscellaneous Notes* Telephone Encounter - Margarita Jones - 02/27/2023 1:33 PM EDT Patient called in and scheduled her CT Lung screening. The diagnosis code of F17.200 failed for Medical Necessity. Please correct diagnosis code on order. Thank you documented in this [facility]-12-2023 Telephone encounter Note* Telephone Encounter - Kianna Stevenson - 01/13/2023 10:29 AM EDT Orders pended for doctor's signature [facility] HospitalOcufxu11-69-1939 Miscellaneous Notes* Telephone Encounter - Kianna Stevenson - 01/13/2023 10:29 AM EDT Orders pended for doctor's signature documented in this [facility] History of Present illness Narrative* Gasper Maggie Nelson DO - 01/13/2023 9:30 AM EDT Images from the original note were not included. [facility] [address] [facility] [address] Visit type: Established Patient Reason for Visit: [...] TAKE 1 TABLET WEEKLY DIRECTED. SEE PACKAGE FORADDITIONAL INSTRUCTIONS 12 tablet 0 [DISCONTINUED] esomeprazole (NexIUM) [address] capsule TAKE 1 CAPSULE BY MOUTH EVERY MORNING (BEFOREBREAKFAST) 90 capsule 0 [DISCONTINUED] simvastatin (Zocor) 10 MG tablet Take 1 tablet (10 mg) by mouth Nightly. 90 tablet 0 [DISCONTINUED] traZODone (Desyrel) 100 MG tablet Take 1 tablet (100 mg) by mouth Nightly. 90 tablet0 [DISCONTINUED] venlafaxine XR (Effexor XR) 150 MG 24 hr capsule TAKE 1 CAPSULE BY MOUTH IN THE MORNING. 90 capsule 0 No current facility-administered medications on file prior to visit. Patient Active Problem List Diagnosis COPD (chronic obstructive pulmonary disease) ([facility]) Osteopenia GERD (gastroesophageal reflux disease) Social History Tobacco Use Smoking status: Every Day Packs/day: 1.00 Types: Cigarettes Start date: 09/24/2019 Smokeless tobacco: Never Substance Use Topics Alcohol use: Not Currently Alcohol/week: 0.0 standard drinks Past Surgical History: Procedure Laterality Date APPENDECTOMY 1966 CHOLECYSTECTOMY [address] Forde- due [...] than stated age. Alert and pleasant cooperative. Well- hydrated. Nonicteric. Normal oropharynx. No adenopathy neck masses [...] of the dorsum of the feet. Normal rangeof motion of hips and knees. documented in this [facility]-13-2023 History of Present illness Narrative* Siomara Estrada PA-C - 11/14/2022 11:40 AM EDT Images from the original note were not included. [facility] [address] [facility] [address] Dept: [phone] Dept Loc: [phone] Visit type: Established Patient Reason for Visit: [...] Starting Mon11/14/2022, Until Mon11/24/2022 at 2359, Normal 3. Smoking Comments: smokes [...] discuss smoking cessation she is not currently intere sted. Encouraged to drink plenty of fluids get [...] She is coughing a lot bringing up phlegm.Unsure of the color - clear to brown, but drinks a lot of coffee. Not blowing anything out of her nose. Has had a dull headache over the top of her head. She gets a sharp pain in her head when she coughs. Has some wheezing and sob with the coughing. Woke up yesterday with sore throat. Denies fever,chest pain coughing up blood, or dizziness. Pt [...] CAPSULE BY MOUTH IN THE MORNING. 90 capsule0 No facility-administered medications prior to visit. Past Medical History: Diagnosis Date Anxiety COPD (chronic obstructive pulmonary disease) (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 documented in this encounterSMagruder HospitalCbnyyx42-21-9837 Telephone encounter Note* Telephone Encounter - Sade Esteban RN - 11/14/2022 9:51 AM EDT Triage message reviewed with clinical staff. Patient appointment confirmed. Siomara will assess at appointment visit. [facility] HospitalIxgzvd54-09-9060 Miscellaneous Notes* Telephone Encounter - Sade Esteban RN - 11/14/2022 9:51 AM EDT Triage message reviewed with clinical staff. Patient appointment confirmed. Siomara will assess at appointment visit. * Telephone Encounter - Jolanta Glover RN - 11/14/2022 9:36 AM EDT S: Patient spoke with CAC nurse regarding cough and chest congestion B: Onset of symptoms/concern 4 days A: Pt has a lot of congestion in chest for the past 4 days. She is coughing a lot bringing up phlegm. Unsure of the color - clear to brown, but drinks a lot of coffee. Not blowing anything out of hernose. Has had a dull headache over the [...] prefers to sit, cannot lie down flat, speaksin phrases, mild retractions, audible wheezing, pulse 100-120. - SEVERE: Very SOB at rest, speaks in single words, struggling to breathe, sitting hunched forward,retractions, pulse > 120 Wheezing and sob with [...] (e.g., travel history, exposures) no Protocols used: [id number] documented in this [facility]03-13-2023 Telephone encounter Note* Telephone Encounter - Jolanta Glover RN - 11/14/2022 9:36 AM EDT S: Patient spoke with CAC nurse regarding cough and chest congestion B: Onset of symptoms/concern 4 days A: Pt has a lot of congestion in chest for the past 4 days. She is coughing a lot bringing up phlegm. Unsure of the color - clear to brown, but drinks a lot of coffee. Not blowing anything out of hernose. Has had a dull headache over the [...] prefers to sit, cannot lie down flat, speaksin phrases, mild retractions, audible wheezing, pulse 100-120. - SEVERE: Very SOB at rest, speaks in single words, struggling to breathe, sitting hunched forward,retractions, pulse > 120 Wheezing and sob with [...] (e.g., travel history, exposures) no Protocols used: [id number] [facility] [id number] Telephone encounter Note* Telephone Encounter - Sara Munoz LPN - 10/20/2022 4:35 PM EST X-ray faxed to [facility] per patient request. Also called patient and let her know it was faxed. [id number] Miscellaneous Notes* Telephone Encounter - Sara Munoz LPN - 10/20/2022 4:35 PM EST X-ray faxed to [facility] per patient request. Also called patient and let her know it was faxed. * Telephone Encounter - Shereen Stevens - 10/20/2022 3:06 PM EST Name of caller: [facility] Contact phone number: [phone] Relationship to Patient: patient Provider: Practice: [facility] Chief Complaint/Reason for Call: Patient calling and states [facility] did not get her ordersfor the x-ray. Patient requesting it be re sent. Patient did not have a fax number. Best time of day caller can be reached: any Patient advised that office/PCP has 24-48 business hours to return their call: no documented in this encounterSMagruder [id number] Telephone encounter Note* Telephone Encounter - Shereen Stevens - 10/20/2022 3:06 PM EST Name of caller: [facility] Contact phone number: [phone] Relationship to Patient: patient Provider: Practice: [facility] Chief Complaint/Reason for Call: Patient calling and states [facility] did not get her ordersfor the x-ray. Patient requesting it be re sent. Patient did not have a fax number. Best time of day caller can be reached: any Patient advised that office/PCP has 24-48 business hours to return their call: no [facility] [id number] Telephone encounter Note* Telephone Encounter - Danish Davila DO - 10/18/2022 5:29 PM EST I called this patient regarding her chest x-ray. She states she went to [facility] but they did not have the order. According to the record the order was faxed. Patient will call the hospital and see if now have the order. [facility] [id number] Miscellaneous Notes* Telephone Encounter - Danish Davila DO - 10/18/2022 5:29 PM EST I called this patient regarding her chest x-ray. She states she went to [facility] but they did not have the order. According to the record the order was faxed. Patient will call the hospital and see if now have the order. * Telephone Encounter - Sade Esteban RN - 10/17/2022 12:06 PM EST Faxed * Telephone Encounter - Justin Hoover - 10/17/2022 12:00 PM EST Name of caller: Shayy Contact phone number: [phone] Relationship to Patient: [facility] Provider: Dr. Davila Practice: [facility] Chief Complaint/Reason for Call: Shayy states the patient is currently at [facility] trying to complete her 10/03/22 XR Chest, 2 views; however, the patient's orders has not been received. Shayy states she would like the office to fax the patient's 10/03/22 XR Chest orders to her atfax number: [phone]. Please contact Shayy and advise. Best time of day caller can be reached: Any Patient advised that office/PCP has 24-48 business hours to return their call: No documented in this encounterSMagruder [id number] Telephone encounter Note* Telephone Encounter - Sade Esteban RN - 10/17/2022 12:[address] [facility]02-13-2023 Telephone encounter Note* Telephone Encounter - Justin Hoover - 10/17/2022 12:00 PM EST Name of caller: Sh[facility] Contact phone number: [phone] Relationship to Patient: [facility] Provider: Dr. Davila Practice: [facility] Chief Complaint/Reason for Call: Shayy states the patient is currently at [facility] trying to complete her 10/03/22 XR Chest, 2 views; however, the patient's orders has not been received. Shayy states she would like the office to fax the patient's 10/03/22 XR Chest orders to her atfax number: [phone]. Please contact Shayy and advise. Best time of day caller can be reached: Any Patient advised that office/PCP has 24-48 business hours to return their call: No [facility]01-31-2023 Telephone encounter Note* Telephone Encounter - Danish Davila DO - 10/04/2022 4:42 PM EST I was called the answering service patient complaining of of a cough. I called patient who admits to a cough and a slight wheeze. She denies being short of breath. Temperature was 101. She just checked her pulse oximeter which was 91%. Patient checked at home covid test that was negative yesterday.She did not get the chest x-ray that was ordered. Patient requests Z-Manuel sent. I told patient that with a temperature of 101 should really go to the emergency room. She is not interested. [facility]01-31-2023 Miscellaneous Notes* Telephone Encounter - Danish Davila DO - 10/04/2022 4:42 PM EST I was called the answering service patient complaining of of a cough. I called patient who admits to a cough and a slight wheeze. She denies being short of breath. Temperature was 101. She just checked her pulse oximeter which was 91%. Patient checked at home covid test that was negative yesterday.She did not get the chest x-ray that was ordered. Patient requests Z-Manuel sent. I told patient that with a temperature of 101 should really go to the emergency room. She is not interested. documented in this [facility]01-30-2023 History of Present illness Narrative* Danish Davila DO - 10/03/2022 8:30 AM EST Images from the original note were not included. [address] [address] Chief Complaint: Ashley Gómez is an 67 y.o. female here for an annual wellness visit. 67-year-old female with a history of COPD, anxiety, depression and hypercholesterolemia presents tot office to have a Medicare annual evaluation. [...] CAPSULE BY MOUTH IN THE MORNING. 90 capsule0 No current facility-administered medications for this visit. [...] correction 20/20 20/25 20/20 documented in this [facility] HealthDischarge summary Author Wilfred Bryan [facility] Note Date/Time February 15, 2025 11:1 1am [facility] Medical Records Department [address] [place] [address] Emergency Department Summary 02/15/25 MR#: [id number] Acct: [id number] Name: ASHLEY GÓMEZ Rep #:[id number] : 1955 69 From: Wilfred Bryan MD PCP: Dr. Danish Davila DO Status:REG ER Location: ED HPI History of Present Illness Chief Complaint: Shortness of Breath Narrative Narrative: 69-year-old female past medical history of COPD, does not wear oxygen, presents via EMS with increased shortness of breath for the last 4 to 5 days. She statesit is hard for her to breathe. Her primary care provider called her in a prescription for prednisone a few days ago which she started. This morning she awoke feeling feverish with reported temperature as high as 101 degrees. She went to work today and she states her boss called EMS because of her difficulty breathing. She has a rare cough that is nonproductive. No leg swelling. She uses her albuterol in the morning and sometimes during the day. Additionally, sometimes she smokes as well. [facility] Medical History Wears dentures Wears glasses Post-menopausal Depression Arthritis Anemia Gastric reflux Former smoker Hoarseness History of stress test Osteopenia COPD (chronic obstructive pulmonary disease) Family hx of colon cancer Nausea & vomiting Diarrhea Pathologic pelvic fracture Chronic anemia GERD (gastroesophageal reflux disease) Depression Home Medications ?Medication ?Instructions ?Recorded ?Last Taken ?Type esomeprazole magnesium 20 mg 40 mg PO DAILY 08/08/13 0 02/15/25 History capsule,delayed release (Nexium) simvastatin 80 mg tablet 40 mg PO QHS 03/20/24 History venlafaxine 150 mg 150 mg PO DAILY 03/20/24 History capsule,extended release 24 hr albuterol sulfate 90 mcg/actuation 2 inh inhalation Q4 H PRN shortness 02/15/25 Unknown History breath activated powder inhaler of breath or wheezing trazodone 150 mg tablet 150 mg PO QHS 02/15/25 Unkno wn History Allergy/AdvReac Type Severity Reaction Status Date / Time Sulfa (Sulfonamide Allergy Hives Verified 02/15/25 08:34 Antibiotics) Family History Mother Pancreatic cancer Father COPD (chronic obstructive pulmonary disease) Brother Colon cancer Heart disease Sister Stomach cancer Brother Leukemia Surgical History History of tonsillectomy and adenoidectomy Hx of cholecystectomy Hx of appendectomy Hx of colonoscopy Social History household members: none current occupational status: employed current occupation: [employer] Smoking Status: Current every day smoker tobacco type: cigarettes Tobacco: How many years used: 4 alcohol intake: former substance use type: does not use ROS ROS ED ROS Narrative Review of systems positive for reported fever. Shortness of breath for the last4 to 5 days. Increased difficulty breathing. Occasional cough. No leg swelling. No chest pain, no nausea or vomiting. EXAM Physical Exam Narrative Exam Narrative: Afebrile. Vital signs noted. Nontoxic-appearing. Cardiovascular examination reveals a regular rate and rhythm. Respiratory examination shows no distress. She has decreased breath sounds at the bilateral bases with occasional expiratory wheezing. Abdomen is soft and nontender with out guarding or rebound. Positive bowel sounds. Neurological examination nonfocal nonlateralizing. No pedal edema. Const Vital Signs: 02/15/25 08:30 02/15/25 08:36 02/15/25 09:12 Temperature 98.4 F Temperature Source Oral Pulse Rate 80 Respiratory Rate 24 H Respiratory Pattern Tachypnea Blood Pressure 143/74 H Blood Pressure Mean 97 Pulse Ox 91 90 Oxygen Delivery Method Room Air Room Air Room Air Oxygen Flow Rate (L/min) 02/15/25 09:12 02/15/25 09:36 02/15/25 09:36 Temperature Temperature Source Pulse Rate 75 80 Respiratory Rate 16 18 Respiratory Pattern Blood Pressure Blood Pressure Mean Pulse Ox 85 Oxygen Delivery Method Room Air Oxygen Flow Rate (L/min) 02/15/25 10:30 02/15/25 10:47 Temperature 98 F Temperature Source Pulse Rate 86 87 Respiratory Rate 19 H 19 H Respiratory Pattern Blood Pressure 132/69 H 132/68 H Blood Pressure Mean 90 89 Pulse Ox 91 91 Oxygen Delivery Method Nasal Cannula Oxygen Flow Rate (L/min) 2 MDM MDM MDM Narrative Medical decision making narrative: Differential diagnosis includes but not limited to COPD exacerbation versus pneumonia versus pneumothorax. History and physical does not support pneumothorax and she has equal breath sounds. Pulse ox 91% on room air but doesdip to 89 even at rest. Comprehensive workup was pursued. EKG was obtained andinterpreted by myself independently as normal sinus rhythm at 84 bpm without ectopy or acute ST changes. No STEMI. Chest x-ray interpreted by myself independently shows no Incivo pneumonia or pneumothorax. I reviewed the radiology report which confirms my independent interpretation. According to respiratory therapy, she was still wheezy after DuoNeb aerosolized treatment so she was given albuterol as well as Solu-Medrol 125 mg intravenously. She was hypoxic on room air and 85%. Once again she doesnot wear oxygen at home. I reviewed her laboratory work and she has normal white count of 9.4 with hemoglobin 13.6, hematocrit 41.5, platelet count 263. Potassium slightly low at 3.2 which can be replaced orally. BUN of 17 and creatinine 0.75 with glucose 136 but normal anion gap of 13. At this point in time, I will discuss patient with the hospitalist for admissiongiven her hypoxia as I feel this is a COPD exacerbation as she continues to intermittently smoke. Disposition is admit in stable condition. History & Record Review Discussion w/independent historian: Patient Additional record(s) reviewed:: Prior ED visit (Essentially noncontributory to current chief complaint) Lab Data Attestation: I reviewed the patient's lab results. Labs: Laboratory Results - last 24 hr 02/15/25 09:19 WBC 9.4 RBC 4.55 Hgb 13.6 Hct 41.5 MCV 91.2 MCH 29.9 MCHC 32.8 RDW Std Deviation 44.6 H RDW Coeff of Tr 13.2 Plt Count 263 MPV 9.7 Immature Gran % (Auto) 0.200 Neut % (Auto) 77.0 H Lymph % (Auto) 19.2 [place] % (Auto) 1.9 Eos % (Auto) 0.7 Baso % (Auto) 1.0 Absolute Neuts (auto) 7.2 Absolute Lymphs (auto) 1.81 Nucleated RBC % 0 Sodium 140 Potassium 3.2 L Chloride 101 Carbon Dioxide 26.3 Anion Gap 13 BUN 17 Creatinine 0.75 Estim Creat Clear Calc 53.51 Est GFR (MDRD) Non-Af 86 BUN/Creatinine Ratio 22.4 H Glucose 136 H Calcium 9.8 Radiography Diagnostic Testing: Clinical Impression(s) from Imaging Studies Chest X-Ray 02/15/25 09:25 IMPRESSION: No acute process Reading Location: [facility] Management Discussion w/another healthcare provider: Hospitalist (Dr. Avilez) Discharge Plan Triage Chief Complaint: Shortness of Breath ED Provider: Wilfred Bryan Dx/Rx/DC Orders Clinical Impression: COPD exacerbation, Hypoxia, Smoker, Hypokalemia Prescriptions: No Action simvastatin 80 mg tablet 40 mg PO QHS Patient Comments: PT TAKING 40 MG, BREAKS PILL IN HALF venlafaxine 150 mg capsule,extended release 24hr 150 mg PO DAILY esomeprazole magnesium [Nexium] 20 MG capsule 40 mg PO DAILY Patient Comments: acid reflux trazodone 150 mg tablet 150 mg PO QHS Patient Comments: PT IS OUT, BUT SHE DOES TAKE. albuterol sulfate 90 mcg/actuation aerosol powdr breath activated 2 inh inhalation Q4H PRN (Reason: shortness of breath or wheezing) Primary Care Provider: Danish Davila Referrals: Danish Davila DO [Primary Care Provider] - Print Language: Libyan What to do if you have Problems For any increased pain, shortness of breath, bleeding, nausea or vomiting, chestpain, or any unexpected problems, contact your Primary Care Provider. Call [facility] ([phone]) or report to the closest Emergency Room. Call 911 if necessary. 02/15/25 1111 <Electronically signed by Wilfred Bryan MD> Cosigner Signature (if applicable): CC: Dr. Danish Davila DO ~ Signed [facility] Work Phone: Discharge summary Author Bunny Avilez [facility] Note Date/Time February 17, 2025 10:5 9am [facility] Medical Records Department [address] [place] [address] Instructions for Home/Discharge Instructions 02/17/25 1052 MR#: [id number] Acct: [id number] Name: ASHLEY GÓMEZ Rep #:[id number] : 1955 69 From: Bunny Avilez DO PCP: Dr. Danish Davila DO Status:ADM IN Discharge Instructions Diet Discharge Diet: No restrictions DC O2, CPAP, BIPAP needs Home O2 Discharge instructions: No Dressing / Incision Discharge Activity: Return to Normal Activity Weight Bearing Status: Weight bearing as tolerated Follow Up Care Test Results: Test results from this visit will be discussed in further detail at your follow- up appointment, if applicable. Discharge Plan Admission Admit Date/Time: 02/15/25 11:21 Primary Reason for Your Visit: exacerbation of COPD Attending Provider: Bunny Avilez Primary Care Provider: Danish Davila Instructions Additional Instructions / Restrictions: advise you to cut down or quit smoking Discharge Orders/Prescriptions Prescriptions: New trazodone 50 mg Tablet 150 mg PO QHS Qty: 15 0RF prednisone 20 mg tablet 20 mg PO BID Qty: 10 0RF Rx Instructions: one twice a day for three days, then one daily until gone Continued simvastatin 80 mg tablet 40 mg PO QHS Patient Comments: PT TAKING 40 MG, BREAKS PILL IN HALF venlafaxine 150 mg capsule,extended release 24hr 150 mg PO DAILY esomeprazole magnesium [Nexium] 20 MG capsule 40 mg PO DAILY Patient Comments: acid reflux albuterol sulfate 90 mcg/actuation aerosol powdr breath activated 2 inh inhalation Q4H PRN (Reason: shortness of breath or wheezing) Discontinued trazodone 150 mg tablet 150 mg PO QHS Patient Comments: PT IS OUT, BUT SHE DOES TAKE. Referrals / Follow Up: Danish Davila DO [Primary Care Provider] - (at next office visit) Disposition Disposition (needs filled in before D/C Order can be placed): Home, Self Care 02/17/25 1059<Electronically signed by Bunny Avilez DO>Bunny Avilez DO CC: Dr. Danish Davila DO ~ Signed [facility] Work Phone: Evaluation note* Diagnosis Menopause Symptomatic menopausal or female climacteric states documented in this encounter [facility] Work Phone: Evaluation noteNo assessment information available [facility] Work Phone: Evaluation note* Diagnosis Chronic obstructive pulmonary disease, unspecified COPD type (HCC)- Primary Hypercholesterolemia Pure hypercholesterolemia Gastroesophageal reflux disease without esophagitis Esophageal reflux Smoker Tobacco use disorder Depression, unspecified depression type [facility] Diagnosis Smoker Tobacco use disorder [facility]* Diagnosis Chronic obstructive pulmonary disease, unspecified COPD type (HCC)- Primary [facility]* Diagnosis Chronic obstructive pulmonary disease, unspecified COPD type (HCC)- Primary Depression, unspecified depression type Gastroesophageal reflux disease without esophagitis Esophageal reflux Hypercholesterolemia Pure hypercholesterolemia [facility]* Diagnosis Moderate smoker (20 or less per day)- Primary Tobacco use disorder Smoker Tobacco use disorder [facility]* Diagnosis Chronic obstructive pulmonary disease, unspecified COPD type (HCC)- Primary Depression, unspecified depression type Gastroesophageal reflux disease without esophagitis Esophageal reflux Hypercholesterolemia Pure hypercholesterolemia [facility]* Diagnosis Smoker Tobacco use disorder Moderate smoker (20 or less per day) Tobacco use disorder [facility]* Diagnosis COPD with acute exacerbation (HCC) Lower resp. tract infection Other diseases of respiratory system, not elsewhere classified [facility]* Diagnosis Chronic obstructive pulmonary disease, unspecified COPD type (HCC)- Primary Abnormal CT scan of lung Hypercholesterolemia Pure hypercholesterolemia Colon cancer screening Special screening for malignant neoplasms, colon Breast cancer screening by mammogram Depression, unspecified depression type Gastroesophageal reflux disease without esophagitis Esophageal reflux Ex-smoker for less than 1 year [facility]* Diagnosis Abnormal CT scan of lung- Primary Colon cancer screening Special screening for malignant neoplasms, colon Smoker Tobacco use disorder Family history of colon cancer Family history of malignant neoplasm of gastrointestinal tract [facility]* Diagnosis Abnormal CT scan of lung Smoker Tobacco use disorder [facility]* Diagnosis Medicare annual wellness visit, subsequent- Primary Cough, unspecified type Chronic obstructive pulmonary disease, unspecified COPD type (HCC) Anxiety Anxiety state, unspecified Depression, unspecified depression type Hypercholesterolemia Pure hypercholesterolemia Mammogram declined Colonoscopy refused [facility]* Diagnosis COPD with acute exacerbation (CMS/HCC) (HCC)- Primary Lower resp. tract infection Other diseases of respiratory system, not elsewhere classified Smoking Tobacco use disorder [facility]* Diagnosis Chronic obstructive pulmonary disease with acute exacerbation (HCC)- Primary Influenza Influenza with other respiratory manifestations [facility]* Diagnosis Routine general medical examination at health care facility- Primary Routine general medical examination at a health care facility Encounter for screening mammogram for malignant neoplasm of breast Hypercholesterolemia Pure hypercholesterolemia Chronic obstructive pulmonary disease with acute exacerbation (HCC) Gastroesophageal reflux disease without esophagitis Esophageal reflux [facility]* Diagnosis Routine general medical examination at health care facility- Primary Routine general medical examination at a health care facility Encounter for screening mammogram for malignant neoplasm of breast Hypercholesterolemia Pure hypercholesterolemia Chronic obstructive pulmonary disease with acute exacerbation (HCC) Gastroesophageal reflux disease without esophagitis Esophageal reflux Other insomnia [facility]* Diagnosis Routine general medical examination at health care facility- Primary Routine general medical examination at a health care facility Encounter for screening mammogram for malignant neoplasm of breast Hypercholesterolemia Pure hypercholesterolemia Chronic obstructive pulmonary disease with acute exacerbation (HCC) Gastroesophageal reflux disease without esophagitis Esophageal reflux Chronic obstructive pulmonary disease with acute exacerbation (HCC) [facility]* Diagnosis Routine general medical examination at health care facility- Primary Routine general medical examination at a health care facility Encounter for screening mammogram for malignant neoplasm of breast Hypercholesterolemia Pure hypercholesterolemia Chronic obstructive pulmonary disease with acute exacerbation (HCC) Gastroesophageal reflux disease without esophagitis Esophageal reflux Other insomnia [facility] Diagnosis Routine general medical examination at health care facility- Primary Routine general medical examination at a health care facility Encounter for screening mammogram for malignant neoplasm of breast Hypercholesterolemia Pure hypercholesterolemia Chronic obstructive pulmonary disease with acute exacerbation (HCC) Gastroesophageal reflux disease without esophagitis Esophageal reflux Other insomnia [facility] Diagnosis Routine general medical examination at health care facility- Primary Routine general medical examination at a health care facility Encounter for screening mammogram for malignant neoplasm of breast Hypercholesterolemia Pure hypercholesterolemia Chronic obstructive pulmonary disease with acute exacerbation (HCC) Gastroesophageal reflux disease without esophagitis Esophageal reflux Chronic obstructive pulmonary disease with acute exacerbation (HCC) [facility] Diagnosis Routine general medical examination at health care facility- Primary Routine general medical examination at a health care facility Encounter for screening mammogram for malignant neoplasm of breast Hypercholesterolemia Pure hypercholesterolemia Chronic obstructive pulmonary disease with acute exacerbation (HCC) Gastroesophageal reflux disease without esophagitis Esophageal reflux Other insomnia [facility] Diagnosis Onset Date Resolution Status Admit Date Hypokalemia acute February 15 11:21am Hypoxia acute February 15 11:21am Smoker acute February 15 11:21am COPD exacerbation chronic February 152024 11:21am [facility] Work Phone: reason for referral (narrative)No reason for referral information [facility]WC[facility] Phone: reason for visit Narrative* Imaging (Routine) - Closed Specialty Diagnoses / Procedures Referred By Anisa arias Referred To Contact Radiology Diagnoses Abnormal CT scan of lung Smoker Procedures CT lung screening follow up low dose Gasper Nelson F, DO [address] [place] [address] Phone: tel: fax: Referral ID Status Reason Start Date Expiration Date Visits Re quested Visits Authorized [id number] Closed 02/22/2024 02/21/2025 1 1 [facility] Summary Purpose Family History No Family History Records Found Relationship Condition Age at Onset Recorded Date/T meera Unknown Family History?- Unknown May 132013 5:25am Family History?- Unknown May 052013 7:01am Relationship Condition Age at Onset Recorded Date/T meera Unknown Family History?- Unknown May 132013 4:25am Family History?- Unknown May 052013 6:01am Relationship Condition Age at Onset Recorded Date/T meera mother Malignant neoplasm of pancreas Unknown father Chronic obstructive pulmonary disease Unk nown brother Malignant neoplasm of colon Unknown Cardiac disease Unknown sister Malignant neoplasm of stomach Unknown brother Leukemia Unknown Advance Directives No Advanced Directives Records FoundDocuments on File Type Date Recorded 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 No February 15, 2025 8:36am Advance Directives No May 10:10pm Advance Directive Response Recorded Date/ Time Do you have a Healthcare Power of Tax Senior Associate? No February 15, 2025 11:58am Advance Directives No May 10:10pm Reason for Referral Specialty Diagnoses / Procedures Referred By Contac t Referred To Contact Radiology Diagnoses Menopause Procedures DEXA Bone Density Axial Skeleton Danish Davila, DO [address] [place] [address] Referral ID Status Reason Start Date Expiration Date Visits Re quested Visits Authorized [id number] Open 06/07/2021 06/07/2022 1 1 Specialty Diagnoses / Procedures Referred By Contac t Referred To Contact Radiology Diagnoses Smoker Procedures CT lung screening low dose Gasper Nelson, DO [address] [place] [address] Referral ID Status Reason Start Date Expiration Date V isits Requested Visits Authorized [id number] Pending Review 01/13/2023 07/12/2023 1 1 Specialty Diagnoses / Procedures Referred By Contac t Referred To Contact Radiology Diagnoses Smoker Moderate smoker (20 or less per day) Procedures CT lung screening low dose Gasper Nelson, DO [address] [place] [address] Referral ID Status Reason Start Date Expiration Date V isits Requested Visits Authorized [id number] Pending Review 08/01/2023 07/31/2024 1 1 Referral ID Status Reason Start Date Expiration Date Visits Re quested Visits Authorized [id number] Closed 08/01/2023 07/31/2024 1 1 Specialty Diagnoses / Procedures Referred By Contac t Referred To Contact Diagnoses Chronic obstructive pulmonary disease, unspecified COPD type (HCC) Procedures Complete PFT pre and post bronchodilator Gasper Nelson, [address] [place] [address] Referral ID Status Reason Start Date Expiration Date V isits Requested Visits Authorized [id number] Pending Review 02/22/2024 02/16/2025 1 1 Specialty Diagnoses / Procedures Referred By Contac t Referred To Contact Radiology Diagnoses Abnormal CT scan of lung Smoker Procedures CT lung screening follow up low dose Gasper Nelson, DO [address] [place] [address] Referral ID Status Reason Start Date Expiration Date V isits Requested Visits Authorized [id number] Pending Review 02/22/2024 02/21/2025 1 1 Specialty Diagnoses / Procedures Referred By Contac t Referred To Contact Gastroenterology Diagnoses Colon cancer screening Procedures [place] OFFICE/OUTPATIENT NEW HIGH MDM 60 MINUTES Gasper Nelson, DO [address] [place] [address] [address], [address] [place] [address] Referral ID Status Reason Start Date Expiration Date Visits Requested Visits Authorized [id number] Pending Review Specialty Services Required 02/22/2024 02/21/2025 1 1 Chief Complaint and Reason for Visit Chief Complaint VOMITING Chief Complaint Admit Date EXACERBATION OF COPD, HYPOXIA February 15, 2025 11:21am Reason for Visit Admit Date Hypokalemia February 15, 2025 11:2 1am Hypoxia February 15, 2025 11:2 1am Smoker February 15, 2025 11:2 1am COPD exacerbation February 15, 2025 11:2 1am Chief Complaint Admit Date EXACERBATION OF COPD, HYPOXIA February 15, 2025 11:21am EXACERBATION OF COPD, HYPOXIA February 15, 2025 2:59pm EXACERBATION OF COPD, HYPOXIA February 16, 2025 11:17am Additional Source Comments INFORMATION SOURCE (unrecogn ized section and content) DATE CREATED AUTHOR 10/12/2021 [facility] DATE CREATED AUTHOR AUTHOR'S ORGANIZ ATION 01/19/2022 [facility] DATE CREATED AUTHOR AUTHOR'S ORGANIZ ATION 02/25/2025 [facility] DATE CREATED AUTHOR AUTHOR'S ORGANIZ ATION 03/02/2025 [facility] Care Teams (unrecognized sec tion and content) Team Status: Active Member Role Status Dates Dr. Danish Davila DO Primary Care Provider Active Team Status: Inactive Member Role Status Dates Dr. Danish Davila DO Primary Care Provider Active Start: February 15, 2025 End: February 17, 2025 Wilfred Bryan MD Emergency Provider Active Star t: February 15, 2025 End: February 17, 2025 Dr. Bunny Avilez DO Admit Provider Active S tart: February 15, 2025 End: February 17, 2025 Dr. Bunny Avilez DO Attending Provider Active Start: February 15, 2025 End: February 17, 2025 Team Status: Active Member Role Status Dates Dr. Danish Davila DO Primary Care Provider Active Start: February 15, 2025 Wilfred Bryan MD Emergency Provider Active Star t: February 15, 2025 Dr. Bunny Avilez DO Admit Provider Active S tart: February 15, 2025 Dr. Bunny Avilez DO Attending Provider Active Start: February 15, 2025 Dr. Bunny Avilez DO Other Provider Active S tart: February 15, 2025 Team Status: Active Member Role Status Dates Dr. Danish Davila , Primary Care Provider Active Start: February 16, 2025 Wilfred Bryan MD Emergency Provider Active Star t: February 16, 2025 Dr. Bunny Avilez , DO Admit Provider Active S tart: February 16, 2025 Dr. Bunny Avilez , Attending Provider Active Start: February 16, 2025 Dr. Bunny Avilez , DO Other Provider Active S tart: February 16, 2025 [employer] Relationship Specialty Start Date End Date Danish Davila DO [address] [place] [address] PCP - General Family Medicine 03/24/20 Team Status: Active Member Role Status Dates Dr. Aaron Zepeda MD Family Provider Active Dr. Danish Davila , Primary Care Provider Active Team Status: Inactive Member Role Status Dates Dr. Danish Davila DO Primary Care Provider, Attendin g Provider Active [employer] Relationship Specialty Start Date End Date Danish Davila DO [address] [place] [address] PCP - General 03/24/20 [employer] Relationship Specialty Start Date End Date Gasper Nelson, DO [address] [place] [address] PCP - General Family Medicine 01/13/23 [employer] Relationship Specialty Start Date End Date Gasper Nelson, DO [address] [place] [address] PCP - General Family Medicine 01/13/23 [employer] Relationship Specialty Start Date End Date Gasper Nelson, DO [address] [place] [address] PCP - General Family Medicine 01/13/23 [employer] Relationship Specialty Start Date End Date Gasper Nelson DO [address] [place] [address] PCP - General Family Medicine 01/13/23 [employer] Relationship Specialty Start Date End Date Gasper Nelson, [address] [facility] [place] [address] PCP - General Family Medicine 01/13/23 [employer] Relationship Specialty Start Date End Date Gasper Nelson, DO [address] [facility] [place] [address] PCP - General Family Medicine 01/13/23 [employer] Relationship Specialty Start Date End Date Gasper Nelson, DO [address] [place] [phone] PCP - General Family Medicine 01/13/23 [employer] Relationship Specialty Start Date End Date Gasper Nelson, DO [address] [place] [address] PCP - General Family Medicine 01/13/23 [employer] Relationship Specialty Start Date End Date Gasper Nelson, DO [address] [place] [phone] PCP - General Family Medicine 01/13/23 [employer] Relationship Specialty Start Date End Date Gasper Nelson, DO [address] [place] [phone] PCP - General Family Medicine 01/13/23 [employer] Relationship Specialty Start Date End Date Gasper Nelson, DO [address] [place] [phone] PCP - General Family Medicine 01/13/23 [employer] Relationship Specialty Start Date End Date PuneetdorinakiGasper, DO [address] [place] [address] PCP - General Family Medicine 01/13/23 [employer] Relationship Specialty Start Date End Date ArgentinaGasper, DO [address] [place] [address] PCP - General Family Medicine 01/13/23 [employer] Relationship Specialty Start Date End Date ArgentinaGasper, DO [address] [place] [address] PCP - General Family Medicine 01/13/23 [employer] Relationship Specialty Start Date End Date ArgentinaGasper, DO [address] [place] [address] PCP - General Family Medicine 01/13/23 [employer] Relationship Specialty Start Date End Date PuneetdorinakiGasper, DO [address] [place] [address] PCP - General Family Medicine 01/13/23 [employer] Relationship Specialty Start Date End Date ArgentinaGasper, DO [address] [place] [address] PCP - General Family Medicine 01/13/23 [employer] Relationship Specialty Start Date End Date ArgentinaGasper, DO [address] [place] [address] PCP - General Family Medicine 01/13/23 [employer] Relationship Specialty Start Date End Date MiguelGasper bacon, DO [address] [place] [address] PCP - General Family Medicine 01/13/23 [employer] Relationship Specialty Start Date End Date ArgentinaGasper, DO [address] [place] [address] PCP - General Family Medicine 01/13/23 [employer] Relationship Specialty Start Date End Date Argentina Gasper Serrano, DO [address] [place] [address] PCP - General Family Medicine 01/13/23 [employer] Relationship Specialty Start Date End Date Danish Davila DO [address] [place] [address] PCP - General 03/24/20 [employer] Relationship Specialty Start Date End Date Danish Davila DO [address] [place] [address] PCP - General 03/24/20 [employer] Relationship Specialty Start Date End Date Danish Davila DO [address] [place] [address] PCP - General 03/24/20 [employer] Relationship Specialty Start Date End Date Danish Davila DO [address] [place] [address] PCP - General 03/24/20 [employer] Relationship Specialty Start Date End Date ArgentinaGasper, DO [address] [place] [address] PCP - General Family Medicine 01/13/23 [employer]visor [employer] Relationship Specialty Start Date End Date Gasper Nelson, DO [address] [place] [address] PCP - General Family Medicine 01/13/23 [employer] Relationship Specialty Start Date End Date Gasper Nelson DO [address] [place] [address] PCP - General Family Medicine 01/13/23 [employer] Relationship Specialty Start Date End Date Gasper Nelson DO [address] [place] [address] PCP - General Family Medicine 01/13/23 [employer] Relationship Specialty Start Date End Date Gasper Nelson, DO [address] [place] [phone] PCP - General Family Medicine 01/13/23 [employer] Relationship Specialty Start Date End Date Gasper Nelson DO [address] [place] [address] PCP - General Family Medicine 01/13/23 Team Status: Active Member Role Status Dates Dr. Danish Davila DO Primary Care Provider Active Start: February 15, 2025 Wilfred Bryan MD Emergency Provider Active Star t: February 15, 2025 Dr. Bunny Avilez DO Admit Provider Active S tart: February 15, 2025 Dr. Bunny Avilez DO Attending Provider Active Start: February 15, 2025 Goals (unrecognized section and content) Goals may [...] Comments Follow-up New to provider, 4 m [facility] med check Reason Onset Date Comments Orders [...] CT lung screening low dose Gasper Nelson F, DO [address] [place] [address] Referral ID Status Reason Start Date Expiration Date Visits Re quested Visits Authorized [id number] Closed 08/01/2023 07/31/2024 1 1 Reason Onset Date Comments Error (VOID this visit) 12/21/2023 Reason Onset Date Comments Appointment 12/22/2023 [facility] Reason Onset Date Comments Med Refill [...] BE BASED ON THE PRIMARY CLINICAL RECORDS. [facility], [facility]. provides no warranty or guarantee of the accuracy or completeness of information in this document.
[2025-03-03 01:28] LABS: D-Dimer Quantitative (DVT/PE) 0.53 FEU/ug/m (0.27-0.49)
[2025-03-03 01:28] LABS: Hematocrit 46.5 % (37-47); Hemoglobin 15.9 g/dL (12.0-15.0); Immature Granulocytes Count 0.090 X10^3/uL (0.0-0.0); Mean Corp Hgb Conc 34.2 g/dL (32-36); Mean Corpuscular Volume 89.3 fL (81-99); Mean Platelet Vol. 10.1 fl (6.2-12.0); NRBC Flagged by Analyzer 0 % (0-5); Platelet Count 281 K/mm3 (150-450); RBC Distribution Width CV 13.3 % (11.6-14.6); RBC Distribution Width SD 43.3 fl (35.1-43.9); Red Blood Count 5.21 M/mm3 (4.2-5.4); White Blood Count 22.9 K/mm3 (4.4-11.0)
--- NOTE | 2025-03-03 01:31 | CT_ITS ---
PROCEDURE: CT CHEST, ABD, PEL W/CONTRAST 03/03/2025 REASON FOR EXAM: CHEST AND ABDOMEN PAIN TECHNIQUE: Chest, abdomen and pelvis CT with intravenous contrast. Coronal and Sagittal reconstruction series were provided. One or more dose reduction techniques were used (e.g., Automated exposure control, adjustment of the mA and/or kV according to patient size, use of iterative reconstruction technique. PATIENT PREPARATION: Per protocol ORAL CONTRAST TYPE: None. AMOUNT: mL CONTRAST: Isovue 370 VOLUME: 92mL Gauge IV RADIATION DOSE SUMMARY: CTDlvol: 10 mGy DLP: 455 mGycm COMPARISON: No FINDINGS: Unremarkable base of neck and axilla. Thoracic spine scoliosis and degeneration. Esophageal reflux. Normal heart size. No aortic dissection. No pulmonary embolism. No acute chest wall findings. Small tracheal secretions. Moderate emphysema. Right anterior lung scar/atelectasis. Slight dependent atelectasis. No consolidation, effusion, or pneumothorax. On the left, series 2, image 42, 5 mm noncalcified upper lobe nodule. Recommend six-month follow up with low-dose chest CT. Status post cholecystectomy. Unremarkable liver, pancreas,, adrenal glands, kidneys. No hydronephrosis. Unremarkable bladder. Normal uterus and ovaries. No retroperitoneal or pelvic adenopathy. No free air. Small hiatal hernia. Nonobstructed bowel. Diverticulosis. No acute large bowel findings. Old pelvic fractures. Lumbar spine scoliosis and degeneration. No acute abdominal wall findings. Mild chronic appearing L1 compression deformity. CT/CT Chest, Abd, Pel w/Contrast IMPRESSION: Right lung band atelectasis. Esophageal reflux. Reading Location: [place] [address]
[2025-03-03 02:00] LABS: AST(SGOT) 40 U/L (<=31); Alanine Aminotransfer ALT/SGPT 40 U/L (<=34); Albumin, Serum 4.4 g/dL (3.4-4.8); Alkaline Phosphatase 78 U/L (35-104); Anion Gap 17 (5-15); BUN 36 mg/dL (4-19); BUN/Creat Ratio 33.1 RATIO (10-20); Calcium,Total 10.5 mg/dL (7.6-11.0); Carbon Dioxide 24.4 mmol/L (21.0-32.0); Chloride 97 mmol/L (98-108); Estimated Creatinine Clearance 37.91 ml/min (50-250); Globulin 2.7 g/dL (2.2-4.2); Glucose 154 mg/dL (70-99); Lipase 18 U/L (13-75); Potassium 3.4 mmol/L (3.3-5.1)
[2025-03-03 02:22] LABS: Troponin T High Sensitivity 91 ng/L (<=14)
[2025-03-03] MEDS: proMETHazine 25 MG/ML Syringe 12.5 MG IM (02:48)
[2025-03-03 03:05] LABS: Mucous, Urine 0 SEEN /hpf (<or=2+)
[2025-03-03 03:06] LABS: Color, Urine Yellow (Yellow); Glucose, Dipstick Normal (Normal); Ketone-Dipstick 50 mg/dl (Negative); Leukocyte Esterase-Dipstick Negative /ul (Negative); Nitrite-Dipstick Negative (Negative); Occult Blood-Urine 10 /ul (Negative); Protein-Dipstick 15 mg/dl (Negative); Specific Gravity, Urine 1.015 (1.002-1.030); Urine Bilirubin Dipstick Negative (Negative)
--- NOTE | 2025-03-03 03:13 | PCM.HP.STD ---
HPI - General General Date of Admission: 03/03/25 Date of Service: 03/03/25 Chief Complaint: N/V, hematemesis, chest pain, dyspnea. HPI Narrative The patient is a 69 y/o F w/ PMHx: COPD, Tobacco use, Anxiety and Depression, GERD, Chronic normocytic anemia, HLD, GERD, recently noted discharge 02/17/2025 following evaluation and treatment for acute hypoxia secondary to acute COPD exacerbation discharged on prednisone therapy of note who presents to the [facility] ED on 03/03/2025 with history of approximately 72 hours of onset of malaise, fatigue with nausea and emesis reportedly hospitalized in [place] however she left AMA to return to [facility] reporting that she has been having hematemesis and now onset of chest discomfort and dyspnea prompting ED evaluation. She does report that at the OSH she was going to have an upper endoscopy. She notes the chest discomfort is lower sternal, aching/tightness with dyspnea associated however she is not currently having the symptoms and notes it lasted approximately half an hour previous to ED arrival and rated it at potentially 6-7 out of 10 in severity when it occurred. Workup in the ED included T97, heart 95, BP 135/87, respiratory rate 36, initially 87% on room air with improvement initially to 95% on 2 L nasal cannula with most recent repeat vitals heart rate 86, BP 159/80, respiratory rate 18, 92% on 2.5 L nasal cannula, CBC with WBC 22.9, hemoglobin 15.9, platelet 281 with left shift, D-dimer 0.53, CMP with chloride 97, anion gap 17, BUN/creatinine 39/1.09, GFR 59, glucose 154, lactic acid 2.4, AST/ALT 40/40, initial troponin 91, chest x-ray with no acute cardiopulmonary findings, CT chest/abdomen/pelvis right lung scarring/atelectasis with slight dependent atelectasis with no otherwise acute intra-abdominal or cardiopulmonary findings, EKG with SR with no acute evidence of ischemia, UA pending upon evaluation of patient. In the ED patient ministered maintenance IV fluids in addition to 1 L normal saline bolus, aspirin 162 mg p.o. x 1, DuoNeb therapy, morphine 4 mg IV x 1, Zofran 4 mg IV x 1, promethazine 12.5 mg IM x 1. [facility] Medical History Hypokalemia Smoker Hypoxia COPD exacerbation Wears dentures Wears glasses Post-menopausal Depression Arthritis Anemia Gastric reflux Former smoker Hoarseness History of stress test Osteopenia COPD (chronic obstructive pulmonary disease) Family hx of colon cancer Nausea & vomiting Diarrhea Pathologic pelvic fracture Chronic anemia GERD (gastroesophageal reflux disease) Depression Home Medications ?Medication ?Instructions ?Recorded ?Last Taken ?Type esomeprazole magnesium 20 mg 40 mg PO DAILY 08/08/13 02/15/25 History capsule,delayed release (Nexium) simvastatin 80 mg tablet 40 mg PO QHS 03/20/24 02/13/25 History venlafaxine 150 mg 150 mg PO DAILY 03/20/24 02/15/25 History capsule,extended release 24 hr albuterol sulfate 90 mcg/actuation 2 inh inhalation Q4H PRN shortness 02/15/25 Unknown History breath activated powder inhaler of breath or wheezing prednisone 20 mg tablet 20 mg PO BID #10 tabs 02/17/25 Unknown Rx trazodone 50 mg tablet 150 mg (3 x 50 mg) PO QHS #15 tabs 02/17/25 Unknown Rx albuterol sulfate 90 mcg/actuation inhalation 03/03/25 Unknown History aerosol inhaler Allergy/AdvReac Type Severity Reaction Status Date / Time Sulfa (Sulfonamide Allergy Hives Verified 03/02/25 23:34 Antibiotics) Family History Mother Pancreatic cancer Father COPD (chronic obstructive pulmonary disease) Brother Colon cancer Heart disease Sister Stomach cancer Brother Leukemia Surgical History History of tonsillectomy and adenoidectomy Hx of cholecystectomy Hx of appendectomy Hx of colonoscopy Social History household members: none current occupational status: employed current occupation: [employer] Smoking Status: Current every day smoker tobacco type: cigarettes Tobacco: How many years used: 4 alcohol intake: former substance use type: does not use ROS ROS Narrative Admission Review of Systems: CONSTITUTIONAL: No weight loss, fever, chills, + weakness or fatigue. HEENT: Eyes: No visual loss, blurred vision, double vision or yellow sclerae. Ears, Nose, Throat: No hearing loss, sneezing, congestion, runny nose or sore throat. SKIN: No rash or itching, lesions, wounds. CARDIOVASCULAR: + Chest pain. No palpitations, edema, orthopnea, syncopal events. RESPIRATORY: + Dyspnea. No marked cough or sputum, wheezing, hemoptysis. GASTROINTESTINAL: + anorexia, nausea, vomiting, hematemesis. No diarrhea, abdominal pain, melena. GENITOURINARY: No dysuria, frequency, urgency or retention. NEUROLOGICAL: No headache, dizziness, syncope, paralysis, ataxia, numbness or tingling in the extremities, focal weakness, change in bowel or bladder control, seizure. MUSCULOSKELETAL: + muscle, back pain, joint pain or stiffness. HEMATOLOGIC: + Chronic anemia, reported as noted active hematemesis, easy bleeding/bruising. LYMPHATICS: No enlarged nodes. No history of splenectomy. PSYCHIATRIC: + History of anxiety and depression. ENDOCRINOLOGIC: No reports of sweating, cold or heat intolerance. No polyuria or polydipsia. ALLERGIES: No history of asthma, hives, eczema or rhinitis. Vital Signs Vital Signs Vital Signs: 03/02/25 23:34 03/02/25 23:53 03/03/25 00:28 Temperature 97 F L Temperature Source Temporal Pulse Rate 95 82 Respiratory Rate 36 H 25 H Respiratory Effort Short of Breath Respiratory Pattern Blood Pressure 135/87 H 151/98 H Blood Pressure Mean 103 115 Pulse Ox 87 93 Oxygen Delivery Method Room Air Nasal Cannula Oxygen Flow Rate (L/min) 03/03/25 00:37 03/03/25 01:00 03/03/25 02:00 Temperature Temperature Source Pulse Rate 79 89 86 Respiratory Rate 21 H 25 H 18 Respiratory Effort Respiratory Pattern Tachypnea Blood Pressure 163/97 H 159/80 H Blood Pressure Mean 119 106 Pulse Ox 95 92 Oxygen Delivery Method Nasal Cannula Nasal Cannula Oxygen Flow Rate (L/min) 2 2.5 03/03/25 03:00 Temperature Temperature Source Pulse Rate 91 Respiratory Rate 16 Respiratory Effort Respiratory Pattern Blood Pressure 165/86 H Blood Pressure Mean 112 Pulse Ox 99 Oxygen Delivery Method Nasal Cannula Oxygen Flow Rate (L/min) Weight Weight: 110 lb 3.698 oz Body Mass Index (BMI) 18.9 Physical Exam Narrative Physical Examination: General: Awakens to stimuli, fatigued and does fall asleep but able to carry on a conversation when she is awoken, oriented to self, place and recent events, remains cooperative, seated upright in ED bed, fatigued and ill-appearing. Skin: Normal color, normal turgor, no icterus, no cyanosis except occasional stage ecchymoses, abrasions. HEENT: AT/NC, EOMI, PERRLA, dry MM, mild oral thrush evident, no carotid bruits or JVD noted. Lungs: Diminished, greater bases, mildly increased respiratory rate but no distress, occasional end expiratory wheeze but very scant, no rales or rhonchi. Heart: Regular rate and rhythm; no gallop, rub audible. Abdomen: Soft, thin habitus, unable to elicit any tenderness to palpation including the epigastric region, no obvious distention, hyperactive BS, no appreciated HSM. Extremities: No cyanosis, clubbing, or edema. Neurological: Awakens to stimuli, fatigued and does fall asleep but able to carry on a conversation when she is awoken, oriented to self, place and recent events, remains cooperative, seated upright in ED bed, fatigued and ill-appearing, cognitive function aside from fatigued suspect likely intact, pupils equally reactive to light and accommodation, cranial nerves grossly normal, moving all 4 extremities, no focal deficits, strength severely globally decreased secondary to acute presentation. Psychiatric: Affect appears flat, fatigued, no acute evidence of depressive or anxiety feelings but does have underlying history. Results Lab / Micro Data 03/03/25 01:15 03/03/25 01:00 Labs: Laboratory Results - last 24 hr 03/03/25 01:00: D-Dimer Quant (PE/DVT) 0.53 H*, Sodium 138, Potassium 3.4, Chloride 97 L, Carbon Dioxide 24.4, Anion Gap 17 H, BUN 36 H, Creatinine 1.09, Estim Creat Clear Calc 37.91 L, Est GFR (MDRD) Non-Af 55 L, BUN/Creatinine Ratio 33.1 H, Glucose 154 H, Calcium 10.5, Total Bilirubin 0.78, AST 40 H, ALT 40 H, Alkaline Phosphatase 78, Total Protein 7.0, Albumin 4.4, Globulin 2.7, Albumin/Globulin Ratio 1.6, Lipase 18 03/03/25 01:15: WBC 22.9 H, RBC 5.21, Hgb 15.9 H, Hct 46.5, MCV 89.3, MCH 30.5, MCHC 34.2, RDW Std Deviation 43.3, RDW Coeff of Tr 13.3, Plt Count 281, MPV 10.1, Immature Gran % (Auto) 0.400, Neut % (Auto) 82.4 H, Lymph % (Auto) 11.1 L, [place] % (Auto) 5.4, Eos % (Auto) 0.3, Baso % (Auto) 0.4, Absolute Neuts (auto) 18.9 H, Absolute Lymphs (auto) 2.54, Nucleated RBC % 0, Lactic Acid 2.4 H*, Troponin T High Sens 91 H* Imaging Radiology Impression Chest X-Ray 03/02/25 23:59 IMPRESSION: No acute chest findings Reading Location: [facility] Chest/Abdomen/Pelvis CT 03/03/25 01:31 IMPRESSION: Right lung band atelectasis. Esophageal reflux. Reading Location: [facility] Assessment & Plan Assessment/Plan (1) Intractable nausea and vomiting: PLAN: Plan The patient is a 69 y/o F w/ PMHx: COPD, Tobacco use, Anxiety and Depression, GERD, Chronic normocytic anemia, HLD, GERD, recently noted discharge 02/17/2025 following evaluation and treatment for acute hypoxia secondary to acute COPD exacerbation discharged on prednisone therapy of note who presents to the [facility] ED on 03/03/2025 with history of approximately 72 hours of onset of malaise, fatigue with nausea and emesis reportedly hospitalized in [place] however she left AMA to return to [facility] reporting that she has been having hematemesis and now onset of chest discomfort and dyspnea prompting ED evaluation. #1. Patient reported hematemesis with as noted chronic normocytic anemia, currently as noted hemoglobin elevated likely falsely given presentation: Patient w/ hematemesis, will maintain n.p.o. status while investigating, will maintain on judicious IV fluids, will obtain serial H&H's as well as guaiac, maintain NPO status, will maintain on IV PPI and pending further findings if clinical appropriate will request gastroenterology involvement. Will request records from OSH. #2. Acute Hypoxia, unclear exact etiology but given recent bouts of hematemesis questionable pneumonitis/aspiration but no overt CT findings, compounded by underlying COPD and atelectasis as noted on CT imaging: Will maintain on aspiration precautions given recent bouts of emesis, continue to evaluate as noted #1, will continue supplemental oxygen with wean as tolerated, aggressive I-S, maintain on LR results as noted per chronic COPD plan, procalcitonin requested given significant leukocytosis but could be related with dehydration also. If onset of fever or sniffily elevated procalcitonin low threshold to initiate empiric antibiotic therapy. Respiratory viral panel requested. #3. Lactic acidosis, possibly multifactorial given acute kidney injury/dehydration and hypoxia: Admission lactic acid 2.4, continue IV fluid hydration, supplemental oxygen, continued evaluation #1, will trend LA per facility protocol. #4. Elevated cardiac enzyme of unclear significance likely associate with #1, #2: EKG in ED sinus rhythm with no acute evidence of ischemia with nonspecific changes, CXR w/ no acute cardiopulmonary finding, CT chest/abdomen/pelvis with no acute intra-abdominal or cardiopulmonary findings aside from atelectasis, initial trop 91. Will maintain on a monitored bed to assure no acute myocardial infarction with serial cardiac enzymes and EKGs. Magnesium level requested. FLP in AM. Will defer any aspirin usage or chemoprophylaxis or anticoagulant therapy given hematemesis report. Echocardiogram requested. If enzymes rise significantly although situation is certainly confounded by above presentation also low threshold to involve cardiology. #5. Acute kidney injury on CKD stage I versus stage II per previous GFR trending: Secondary to acute presentation as noted. Admission BUN/Cr 36/1.09, GFR 55, prior baseline creatinine noted to be primarily 0.6-0.9 maximum however most recently 02/17/2025 creatinine 0.68 will hydrate, hold nephrotoxic medications and repeat chemistry in AM. If no improvement would plan FeNa assessment. #6. Acute mild transaminitis: Hepatic profile with T. bili 0.78, AST and ALT mildly elevated at 40, likely secondary to acute presentation as noted above, continue treatment and repeat CMP in AM. #7. Chronic COPD: Will maintain on oxygen with wean as tolerated to room air given hypoxia as noted above, will maintain on ATC duonebs, PRN albuterol, HOB, IS parameters. #8. Chronic normocytic anemia: Admission hemoglobin reportedly 15.9, MCV 89.3, baseline hemoglobin primarily 11-12 range, most recently 02/15/2025 hemoglobin 13.6 at that time, likely falsely elevated given presentation as noted above, will repeat CBC in AM. #9. Anxiety and depression: Will continue patient home venlafaxine regimen, will temporally hold higher dose nightly trazodone regimen and add back once appropriate. #10. Tobacco Abuse: Encouraged cessation, inpatient consultation per RT, NR if desired. #11. Hyperlipidemia: Will continue patient on statin therapy. #12. GERD: Maintained on IV PPI as noted. #13. DVT prophylaxis: SCDs, hold on any chemoprophylaxis consideration given hematemesis reported. #14. CODE status: Patient does not have healthcare power of employment attorney or living will in place but she notes she would want her cousin Brittany to be her medical decision-maker if it was absolutely necessary. Discussed CODE status at length including difference between FULL code, DNR-CCA and DNR-CC status. Following discussions about the differences in these status, requested Full Code status. Advanced Care Planning Face to Face Time: 16 minutes. Charges/Coding Visit Charges Inpatient E&M: 56823 Init Hosp L3 Procedures Hospitalists Procedures: 46982 Advncd Care Plan 30 Min
--- NOTE | 2025-03-03 03:35 | EKG12_ITS ---
Test Reason : CP ADMISSION Blood Pressure : */* mmHG Vent. Rate : 83 BPM Atrial Rate : 83 BPM P-R Int : 148 ms QRS Dur : 70 ms QT Int : 386 ms P-R-T Axes : 81 23 46 degrees QTcB Int : 453 ms Normal sinus rhythm Possible Left atrial enlargement Septal infarct , age undetermined Abnormal ECG When compared with ECG of 02-Mar-2025 23:40, MANUAL COMPARISON REQUIRED DATA IS UNCONFIRMED Confirmed by MURTAZA CHISHOLM, NIKI ([id number]), photo editor OSWALD ROSA ([id number]) on 03/04/2025 6:51:15 AM Referred By: Confirmed By: NIKI HAUSER MD
[2025-03-03] MEDS: Pantoprazole Sodium 80 MG in 0.9% Normal Saline (50mL Bag) 15 ML 420 MG IV BOLUS (03:36)
[2025-03-03 03:40] LABS: Red Blood Cells-Urine 5-10 SEEN /hpf (0-5); Squamous Epithelial Cells - UA 0-5 SEEN /hpf (5-10)
--- OUTSIDE RECORDS SUMMARY | 2025-03-03 03:59 | XMS RPT_ITS | CCD ---
Author Organization [facility] Care Team Providers Care Truss Assembler Name Role Phone Danish Davila DO Primary Care Provider Gasper Nelson DO Primary Care Provider Gasper Nelson DO F Primary Care Provider Gasper Nelson DO Primary Care Provider Danish Davila DO Primary Care Provider Dr. Danish Davila DO Primary Care Provider Wilfred Bryan MD Emergency Provider [phone] Bunny Avilez DO Admit Provider Dr. Bunny Avilez DO Attending Provider Raghav VICK, Dr. Hollis Other Provider GASPER NELSON Attending Unavailable GASPER NELSON Referring Unavailable GASPER NELSON Primary Care Unavailable SIOMARA ESTRADA Attending Unavailable GASPER NELSON Primary Care Unavailable GASPER NELSON Attending Unavailable GASPER NELSON Primary Care Unavailable Danish Davila Primary Care Unavailable Bunny Avilez Admitting Unavailable Bunny Avilez Attending Unavailable Gasper Nelson Primary Care Unavailable White, Tonja L Admitting Unavailable White Tonja L Attending Unavailable Bunny Avilez Admitting Unavailable Bunny Avilez Attending Unavailable Danish Davila Primary Care Unavailable Bunny Avilez Consulting Unavailable Pooja Padilla Attending Unavailable Danish Davila Primary Care Unavailable Friend, Slim Attending Unavailable Danish Davila Referring Unavailable Danish Davila Primary Care Unavailable Friend, Slim Consulting Unavailable FriendSlim Attending Unavailable Danish Davila Primary Care Unavailable Danish Davila Referring Unavailable Allergies Allergy Classification Reported Allergen(s) Allergy Type Date of Onset Reaction(s) Facility Sulfonamides (antibiotic) (1 source) Sulfonamides (Antibiotic) Drug Allergy 3 [facility] (20 sources) Sulfonamides (Antibiotic) Propensity to adverse reactions to drug 3 [facility] (7 sources) Sulfonamides (Antibiotic); Translations: [Sulfa (Sulfonamide Antibiotics)] Allergy to substance 5 [facility] Medications Current Medications Medication Drug Class(es) [...] 20 mg/ml oral suspension (15 sources) Uncompetitive S-qsjhev-Z-aspartat e Receptor Antagonist, Sigma-1 Agonist Start: 10-31-2024 [...] tablet (20 sources) HMG-CoA Reductase Inhibitor Start: 04-11-2025 take 1 tablet by mouth once daily [...] take 1 tablet by lan once daily simvastatin (ZOCOR) 10 MG tablet [...] 325 mg PO TWICE DAILY WITH MEALS 90 October 04, 2013 1:00am April 26, 2024 [...] Discontinued 10 mg PO 4 TIMES DAILY 120 October 07, 2013 1:00am October 19, 2013 11:58am take one tablet before [...] Test Name Value Interpretation Reference Range Facility CBC W/Diff, Automatedon - Absolute Lymph 2.54 X10 3/uL Normal 0.83-4.51 [facility] Comment on above: Performed By: #### L 500.4050, L300.8000, L100.0100, L501.2450, L503.6005 ####[facility] [address] [place], [address] Absolute Neut 18.9 X10 3/uL High 2.0-7.7 [facility] Comment on above: Performed By: #### L 500.4050, L300.8000, L100.0100, L501.2450, L503.6005 ####[facility] [address] [place], [address] Basophils/100 WBC (Bld) 0.4 % Normal 0-1 [facility] Comment on above: Performed By: #### L 500.4050, L300.8000, L100.0100, L501.2450, L503.6005 ####[facility] [address] [place], [address] Eosinophils/100 WBC (Bld) 0.3 % Normal 0-5 [facility] Comment on above: Performed By: #### L 500.4050, L300.8000, L100.0100, L501.2450, L503.6005 ####[facility] [address] [place], [address] Erythrocyte distribution width (RBC) [Ratio] 13.3 % Normal 11.6-14.6 [facility] Comment on above: Performed By: #### L 500.4050, L300.8000, L100.0100, L501.2450, L503.6005 ####[facility] [address] [place], [address] Hematocrit (Bld) [Volume fraction] 46.5 % Normal 37-47 [facility] Comment on above: Performed By: #### L 500.4050, L300.8000, L100.0100, L501.2450, L503.6005 ####[facility] [address] [place], [address] Hemoglobin (Bld) [Mass/Vol] 15.9 g/dL High 12.0-15.0 [facility] Comment on above: Performed By: #### L 500.4050, L300.8000, L100.0100, L501.2450, L503.6005 ####[facility] [address] [place], [address] IG% 0.400 Normal 0.0-0.9 [facility] Comment on above: Result Comment: IG% - Immature Granulocytes (promyelocytes, myelocytes and metamyelocytes) > 1% indicates that a LEFT SHIFT is Present. Performed By: #### L 500.4050, L300.8000, L100.0100, L501.2450, L503.6005 ####[facility] [address] [place], [address] Lymphocytes/100 WBC (Bld) 11.1 % Low 19-41 [facility] Comment on above: Performed By: #### L 500.4050, L300.8000, L100.0100, L501.2450, L503.6005 ####[facility] [address] [place], [address] MCH (RBC) [Entitic mass] 30.5 pg Normal 27.0-32.0 [facility] Comment on above: Performed By: #### L 500.4050, L300.8000, L100.0100, L501.2450, L503.6005 ####[facility] [address] [place], [address] MCHC (RBC) [Mass/Vol] 34.2 g/dL Normal 32-36 [facility] Comment on above: Performed By: #### L 500.4050, L300.8000, L100.0100, L501.2450, L503.6005 ####[facility] [address] [place], [address] MCV (RBC) [Entitic vol] 89.3 fL Normal 81-99 [facility] Comment on above: Performed By: #### L 500.4050, L300.8000, L100.0100, L501.2450, L503.6005 ####[facility] [address] [place], [address] Monocytes/100 WBC (Bld) 5.4 % Normal 0-10 [facility] Comment on above: Performed By: #### L 500.4050, L300.8000, L100.0100, L501.2450, L503.6005 ####[facility] [address] [place], [address] Neutrophils/100 WBC (Bld) 82.4 % High 47-70 [facility] Comment on above: Performed By: #### L 500.4050, L300.8000, L100.0100, L501.2450, L503.6005 ####[facility] [address] [place], [address] Nucleated RBC (Bld) [#/Vol] 0 10*3/uL Normal 0-5 [facility] Comment on above: Performed By: #### L 500.4050, L300.8000, L100.0100, L501.2450, L503.6005 ####[facility] [address] [place], [address] Platelet mean volume (Bld) [Entitic vol] 10.1 fL Normal 6.2-12.0 [facility] Comment on above: Performed By: #### L 500.4050, L300.8000, L100.0100, L501.2450, L503.6005 ####[facility] [address] [place], [address] Platelets (Bld) [#/Vol] 281 10*3/uL Normal 150-450 [facility] Comment on above: Performed By: #### L 500.4050, L300.8000, L100.0100, L501.2450, L503.6005 ####[facility] [address] [place], [address] RBC (Bld) [#/Vol] 5.21 10*6/uL Normal 4.2-5.4 [facility] Comment on above: Performed By: #### L 500.4050, L300.8000, L100.0100, L501.2450, L503.6005 ####[facility] [address] [place], [address] RDW SD 43.3 fl Normal 35.1-43.9 [facility] Comment on above: Performed By: #### L 500.4050, L300.8000, L100.0100, L501.2450, L503.6005 ####[facility] [address] [place], [address] WBC (Bld) [#/Vol] 22.9 10*3/uL High 4.4-11.0 [facility] Comment on above: Performed By: #### L 500.4050, L300.8000, L100.0100, L501.2450, L503.6005 ####[facility] [address] [place], [address] CT Chest, Abd, Pel w/Contras ton 03-03-2025 CT Chest, Abd, Pel w/Contrast [facility] Imaging Services [address] [place] [address] CT Chest, Abd, Pel w/Contrast MR#: [id number] Acct: [id number] Name: ASHLEY GÓMEZ Rep #: [id number] : 1955 F 69 From: Ruddy Booker MD PCP: Dr. Gasper Nelson DO Status: [facility] ER Study: CT Chest, Abd, Pel w/Contrast Date of Exam: Exam# [id number] Ordering Dr: Abdulkadir Peralta DO PROCEDURE: CT CHEST, ABD, PEL W/CONTRAST 03/03/2025 REASON FOR EXAM: CHEST AND ABDOMEN PAIN TECHNIQUE: Chest, abdomen and pelvis CT with intravenous contrast. Coronal and Sagittal reconstruction series were provided. One or more dose reduction techniques were used (e.g., Automated exposure control, adjustment of the mA and/or kV according to patient size, use of iterative reconstruction technique. PATIENT PREPARATION: Per protocol ORAL CONTRAST TYPE: None. AMOUNT: mL CONTRAST: Isovue 370 VOLUME: 92mL Gauge IV RADIATION DOSE SUMMARY: CTDlvol: 10 mGy DLP: 455 mGycm COMPARISON: No FINDINGS: Unremarkable base of neck and axilla. Thoracic spine scoliosis and degeneration. Esophageal reflux. Normal heart size. No aortic dissection. No pulmonary embolism. No acute chest wall findings. Small tracheal secretions. Moderate emphysema. Right anterior lung scar/atelectasis. Slight dependent atelectasis. No consolidation, effusion, or pneumothorax. On the left, series 2, image 42, 5 mm noncalcified upper lobe nodule. Recommend six-month follow up with low-dose chest CT. Status post cholecystectomy. Unremarkable liver, pancreas,, adrenal glands, kidneys. No hydronephrosis. Unremarkable bladder. Normal uterus and ovaries. No retroperitoneal or pelvic adenopathy. No free air. Small hiatal hernia. Nonobstructed bowel. Diverticulosis. No acute large bowel findings. Old pelvic fractures. Lumbar spine scoliosis and degeneration. No acute abdominal wall findings. Mild chronic appearing L1 compression deformity. CT/CT Chest, Abd, Pel w/Contrast IMPRESSION: Right lung band atelectasis. Esophageal reflux. Reading Location: [place] [address] CC: Dr. Gasper Nelson, ; Dr. Abdulkadir Peralta Rooming House Operator: Signed Normal [facility] Comprehensive Metabolic Prof ilon 03-03-2025 Albumin [Mass/Vol] 4.4 g/dL Normal 3.4-4.8 [facility] Comment on above: Performed By: #### L 500.4050, L300.8000, L100.0100, L501.2450, L503.6005 ####[facility] [address] [place], [address] Albumin/Globulin [Mass ratio] 1.6 {ratio} Normal 0.9-2.4 [facility] Comment on above: Performed By: #### L 500.4050, L300.8000, L100.0100, L501.2450, L503.6005 ####[facility] [address] [place], [address] ALK PHOS 78 U/L Normal 35-104 [facility] Comment on above: Performed By: #### L 500.4050, L300.8000, L100.0100, L501.2450, L503.6005 ####[facility] [address] [place], [address] ALT [Catalytic activity/Vol] 40 U/L High <=34 [facility] Comment on above: Performed By: #### L 500.4050, L300.8000, L100.0100, L501.2450, L503.6005 ####[facility] [address] [place], [address] AST [Catalytic activity/Vol] 40 U/L High <=31 [facility] Comment on above: Performed By: #### L 500.4050, L300.8000, L100.0100, L501.2450, L503.6005 ####[facility] [address] [place], [address] Bilirubin [Mass/Vol] 0.78 mg/dL Normal 0.00-1.30 [facility] Comment on above: Performed By: #### L 500.4050, L300.8000, L100.0100, L501.2450, L503.6005 ####[facility] [address] [place], [address] BUN/CRE 33.1 RATIO High 10-20 [facility] Comment on above: Performed By: #### L 500.4050, L300.8000, L100.0100, L501.2450, L503.6005 ####[facility] [address] [place], [address] Calcium [Mass/Vol] 10.5 mg/dL Normal 7.6-11.0 [facility] Comment on above: Performed By: #### L 500.4050, L300.8000, L100.0100, L501.2450, L503.6005 ####[facility] [address] [place], [address] Chloride [Moles/Vol] 97 mmol/L Low 98-108 [facility] Comment on above: Performed By: #### L 500.4050, L300.8000, L100.0100, L501.2450, L503.6005 ####[facility] [address] [place], [address] CO2 [Moles/Vol] 24.4 mmol/L Normal 21.0-32.0 [facility] Comment on above: Performed By: #### L 500.4050, L300.8000, L100.0100, L501.2450, L503.6005 ####[facility] [address] [place], [address] Creatinine [Mass/Vol] 1.09 mg/dL Normal 0.70-1.20 [facility] Comment on above: Performed By: #### L 500.4050, L300.8000, L100.0100, L501.2450, L503.6005 ####[facility] [address] [place], [address] ECRCL 37.91 ml/min Low 50-250 [facility] Comment on above: Performed By: #### L 500.4050, L300.8000, L100.0100, L501.2450, L503.6005 ####[facility] [address] [place], [address] GAP 17 High 5-15 [facility] Comment on above: Performed By: #### L 500.4050, L300.8000, L100.0100, L501.2450, L503.6005 ####[facility] [address] [place], [address] GFR/1.73 sq M.predicted among non-blacks MDRD (S/P/Bld) [Vol rate/Area] 55 mL/min/{1.73_m2} Low >60 [facility] Comment on above: Result Comment: mL/m in/1.73m2 CKD-EPI Creatinine Equation (2020) Performed By: #### L 500.4050, L300.8000, L100.0100, L501.2450, L503.6005 ####[facility] [address] [place], [address] Globulin (S) [Mass/Vol] 2.7 g/dL Normal 2.2-4.2 [facility] Comment on above: Performed By: #### L 500.4050, L300.8000, L100.0100, L501.2450, L503.6005 ####[facility] [address] [place], [address] Glucose [Mass/Vol] 154 mg/dL High 70-99 [facility] Comment on above: Performed By: #### L 500.4050, L300.8000, L100.0100, L501.2450, L503.6005 ####[facility] [address] [place], [address] Potassium [Moles/Vol] 3.4 mmol/L Normal 3.3-5.1 [facility] Comment on above: Performed By: #### L 500.4050, L300.8000, L100.0100, L501.2450, L503.6005 ####[facility] [address] [place], [address] Sodium [Moles/Vol] 138 mmol/L Normal 133-145 [facility] Comment on above: Performed By: #### L 500.4050, L300.8000, L100.0100, L501.2450, L503.6005 ####[facility] [address] [place], [address] T PROT 7.0 g/dL Normal 5.9-8.4 [facility] Comment on above: Performed By: #### L 500.4050, L300.8000, L100.0100, L501.2450, L503.6005 ####[facility] [address] [place], [address] Urea nitrogen [Mass/Vol] 36 mg/dL High 4-19 [facility] Comment on above: Performed By: #### L 500.4050, L300.8000, L100.0100, L501.2450, L503.6005 ####[facility] [address] [place], [address] D-Dimer Quantitative (DVT/PE )on 03-03-2025 D-DIMER QUANT 0.53 FEU/ug/m Invalid Interpretation Code 0.27-0.49 [facility] Comment on above: Result Comment: D-Di nikki ELEVATED (>0.49): Additional studies and clinical assessments are indicated to conclude diagnosis of: Deep Vein Thrombosis (DVT) or Pulmonary Embolism (PE) CRITICAL VALUE CALLED TO RBARTOLONE 03/03/25 0126 Jalen Jonas. RESULTS READ BACK BY SAME. Performed By: #### L 500.4050, L300.8000, L100.0100, L501.2450, L503.6005 #### [facility] Laboratory [address] [place], [address] L501.4021on 03-03-2025 Trop T High Sen 91 ng/L Invalid Interpretation Code <=14 [facility] Comment on above: Result Comment: Crit ical Result(s) Called at: 03/03/2025-02:22 by: Siomara Jo to Mitch Saenz.??Results read back by same. Performed By: #### L 501.4021 ####[facility] [address] [place], [address] Lactic Acidon 03-03-2025 Lactate [Moles/Vol] 2.4 mmol/L Invalid Interpretation Code 0.0-2.0 [facility] Comment on above: Order Comment: Y Result Comment: Crit ical Result(s) Called at: 03/03/2025-02:08 by: Siomara Jo to Carlitos Chiu.??Results read back by same. Performed By: #### L 500.4050, L300.8000, L100.0100, L501.2450, L503.6005 ####[facility] [address] [place], [address] Lipaseon 03-03-2025 Lipase [Catalytic activity/Vol] 18 U/L Normal 13-75 [facility] Comment on above: Result Comment: Brandon strong note: LIPASE revised reference range effective 22. New Lipase methodology. Expected to produce lower values than the previous assay method. NEW Reference Range: 13 - 75 U/L Performed By: #### L 500.4050, L300.8000, L100.0100, L501.2450, L503.6005 ####[facility] [address] [place], [address] Urinalysis, Completeon 03-03 CAST,HYALINE 0-5 SEEN Normal 0-5 [facility] Comment on above: Order Comment: COLLE CTOR TO SPECIFY Performed By: #### L 400.0001 ####[facility] [address] [place], [address] EPI,SQUAMOUS 0-5 SEEN Normal 5-10 [facility] Comment on above: Order Comment: COLLE CTOR TO SPECIFY Performed By: #### L 400.0001 ####[facility] [address] [place], [address] RBC 5-10 SEEN Normal 0-5 [facility] Comment on above: Order Comment: COLLE CTOR TO SPECIFY Performed By: #### L 400.0001 ####[facility] [address] [place], [address] WBC 0-5 SEEN Normal 0-5 [facility] Comment on above: Order Comment: COLLE CTOR TO SPECIFY Performed By: #### L 400.0001 ####[facility] [address] [place], [address] BILIRUBIN URINE Negative Normal Negative [facility] Comment on above: Order Comment: REBECCA CTOR TO SPECIFY Performed By: #### L 400.0001 ####[facility] [address] [place], [address] Clarity (U) Clear Normal Clear [facility] Comment on above: Order Comment: REBECCA CTOR TO SPECIFY Performed By: #### L 400.0001 ####[facility] [address] [place], [address] Color (U) Yellow Normal Yellow [facility] Comment on above: Order Comment: REBECCA CTOR TO SPECIFY Performed By: #### L 400.0001 ####[facility] [address] [place], [address] GLUCOSE, UR Normal Normal Normal [facility] Comment on above: Order Comment: REBECCA CTOR TO SPECIFY Performed By: #### L 400.0001 ####[facility] [address] [place], [address] KETONE UR 50 mg/dl Abnormal Negative [facility] Comment on above: Order Comment: REBECCA CTOR TO SPECIFY Performed By: #### L 400.0001 ####[facility] [address] [place], [address] LEUK ESTERASE Negative Normal Negative [facility] Comment on above: Order Comment: REBECCA CTOR TO SPECIFY Performed By: #### L 400.0001 ####[facility] [address] [place], [address] Nitrite Ql (U) Negative Normal Negative [facility] Comment on above: Order Comment: REBECCA CTOR TO SPECIFY Performed By: #### L 400.0001 ####[facility] [address] [place], [address] OCCULT BLOOD-UR 10 /ul Abnormal Negative [facility] Comment on above: Order Comment: REBECCA CTOR TO SPECIFY Performed By: #### L 400.0001 ####[facility] [address] [place], [address] pH UR 6.0 Normal 5.0 - 8.0 [facility] Comment on above: Order Comment: REBECCA CTOR TO SPECIFY Performed By: #### L 400.0001 ####[facility] [address] [place], [address] PROT DIPSTX 15 mg/dl Abnormal Negative [facility] Comment on above: Order Comment: REBECCA CTOR TO SPECIFY Performed By: #### L 400.0001 ####[facility] [address] [place], [address] SP.GR. DIPSTX 1.015 Normal 1.002-1.030 [facility] Comment on above: Order Comment: ERBECCA CTOR TO SPECIFY Performed By: #### L 400.0001 ####[facility] [address] [place], [address] UROBILI Normal Normal Normal [facility] Comment on above: Order Comment: REBECCA CTOR TO SPECIFY Performed By: #### L 400.0001 ####[facility] [address] [place], [address] BACTERIA 0 SEEN Normal None Seen [facility] Comment on above: Order Comment: REBECCA CTOR TO SPECIFY Performed By: #### L 400.0001 ####[facility] [address] [place], [address] Mucus Ql (Urine sed) 0 SEEN Normal [facility] Comment on above: Order Comment: REBECCA CTOR TO SPECIFY Performed By: #### L 400.0001 ####[facility] [address] [place], [address] Chest 1 View (Portable)on Chest 1 View (Portable) [facility] Imaging Services [address] [place] [address] Chest 1 View (Portable) MR#: [id number] Acct: [id number] Name: ASHLEY GÓEMZ Rep #: [id number] : 1955 F 69 From: Ruddy Booker MD PCP: Dr. Gasper Nelson DO Status: REG ER Study: Chest 1 View (Portable) Date of Exam: 03/02/25 Exam# [id number] Ordering Dr: Abdulkadir Peralat DO PROCEDURE: CHEST 1 VIEW (PORTABLE) 03/03/2025 REASON FOR EXAM: DYSPNEA TECHNIQUE: Frontal view of the chest. COMPARISON: 02/15/2025 FINDINGS: Scoliosis. Normal heart size. Well inflated lungs. No consolidation, effusion, or pneumothorax. RAD/Chest 1 View (Portable) IMPRESSION: No acute chest findings Reading Location: [place] [address] CC: Dr. Gasper Nelson DO; Dr. Abdulkadir Peralta DO Rooming House Operator: Signed [address] 02-24-2025 36 Recent Visits Date Type Provider Dept 11/12/24 Office Visit Siomara Estrada PA-C [facility] Showing recent visits within past 365 days and meeting all other requirements Future Appointments Date Type Provider Dept 05/12/25 Appointment Gasper Nelson DO [facility] Showing future appointments within next [...] recent labs completed in chart? N/A Normal [facility] Anion gap in Serum or Plasma Ordered By: Bunny Avilez on 02-17-2025 Anion gap [Moles/Vol] 12 mmol/L - [facility] BUN/creatinine ratioOrdered By: Bunny Raghav on 02-17-2025 Urea nitrogen/Creatinine [Mass ratio] 34.6 mg/mg High - [facility] Basic Metabolic Profile (BMP )on 02-17-2025 BUN/CRE 34.6 RATIO High - [facility] Comment on above: Performed By: #### L 500.2500 ####[facility] [address] [place], [address] Calcium [Mass/Vol] 9.9 mg/dL Normal 7.6-11.0 [facility] Comment on above: Performed By: #### L 500.2500 ####[facility] [address] [place], [address] Chloride [Moles/Vol] 103 mmol/L Normal 98-108 [facility] Comment on above: Performed By: #### L 500.2500 ####[facility] [address] [place], [address] CO2 [Moles/Vol] 25.7 mmol/L Normal 21.0-32.0 [facility] Comment on above: Performed By: #### L 500.2500 ####[facility] [address] [place], [address] Creatinine [Mass/Vol] 0.68 mg/dL Low 0.70-1.20 [facility] Comment on above: Performed By: #### L 500.2500 ####[facility] [address] [place], [address] ECRCL 53.82 ml/min Normal 50-250 [facility] Comment on above: Performed By: #### L 500.2500 ####[facility] [address] [place], [address] GAP 12 Normal - [facility] Comment on above: Performed By: #### L 500.2500 ####[facility] [address] [place], [address] GFR/1.73 sq M.predicted among non-blacks MDRD (S/P/Bld) [Vol rate/Area] 94 mL/min/{1.73_m2} Normal >60 [facility] Comment on above: Result Comment: mL/m in/1.73m2 CKD-EPI Creatinine Equation (2020) Performed By: #### L 500.2500 ####[facility] [address] [place], [address] Glucose [Mass/Vol] 102 mg/dL High 70-99 [facility] Comment on above: Performed By: #### L 500.2500 ####[facility] [address] [place], [address] Potassium [Moles/Vol] 4.4 mmol/L Normal 3.3-5.1 [facility] Comment on above: Performed By: #### L 500.2500 ####[facility] [address] [place], [address] Sodium [Moles/Vol] 140 mmol/L Normal 133-145 [facility] Comment on above: Performed By: #### L 500.2500 ####[facility] [address] [place], [address] Urea nitrogen [Mass/Vol] 23 mg/dL High 4-19 [facility] Comment on above: Performed By: #### L 500.2500 ####[facility] [address] [place], [address] Carbon dioxide, total [Moles /volume] in Central venous bloodOrdered By: Bunny Avilez on 02-17-2025 CO2 [Moles/Vol] 25.7 mmol/L 21.0-32.0 [facility] Chloride assayOrdered By: Malaika Avilez on 02-17-2025 Chloride [Moles/Vol] 103 mmol/L 98-108 [facility] Discharge Instructionon 02-02 Discharge Instruction [facility] Medical Records Department [address] [place] [address] Instructions for Home/Discharge Instructions 02/17/25 1052 MR#: [id number] Acct: [id number] Name: ASHLEY GÓMEZ Rep #: [id number] : 1955 69 From: Bunny Avilez DO [...] CC: Dr. Danish Davila DO Signed Normal [facility] Glomerular filtration rate ( GFR) estimation/1.73 sq m using serum, plasma, or whole bOrdered By: Bunny Avilez on 02-17-2025 GFR/1.73 sq M.predicted among non-blacks MDRD (S/P/Bld) [Vol rate/Area] 94 mL/min/{1.73_m2} >60 [facility] Comment on above: mL/min/1.73m2 CKD-EP I Creatinine Equation (2020) Potassium measurement (mass/ volume)Ordered By: Bunny Avilez on 02-17-2025 Potassium (Unsp spec) [Mass/Vol] 4.4 mmol/L 3.3-5.1 [facility] Serum creatinine measurement (mass/volume)Ordered By: Bunny Avilez on 02-17-2025 Creatinine [Mass/Vol] 0.68 mg/dL Low 0.70-1.20 [facility] Serum glucose measurement (m ass/volume)Ordered By: Bunny Avilez on 02-17-2025 Glucose [Mass/Vol] 102 mg/dL High 70-99 [facility] Serum or plasma calcium janneth urement (mass/volume)Ordered By: Bunny Avilez on 02-17-2025 Calcium [Mass/Vol] 9.9 mg/dL 7.6-11.0 [facility] Serum or plasma urea nitroge n measurement (mass/volume)Ordered By: Bunny Avilez on 02-17-2025 Urea nitrogen [Mass/Vol] 23 mg/dL High 4-19 [facility] Sodium levelOrdered By: Bunny Avilez on 02-17-2025 Sodium [Moles/Vol] 140 mmol/L 133-145 [facility] Basic Metabolic Profile (BMP )on 02-16-2025 BUN/CRE 28.6 RATIO High 10-20 [facility] Comment on above: Performed By: #### L 500.2500 #### [facility] Laboratory [address] [place], [place], [id number] Calcium [Mass/Vol] 10.4 mg/dL Normal 7.6-11.0 [facility] Comment on above: Performed By: #### L 500.2500 #### [facility] [address] [place], [address] Chloride [Moles/Vol] 106 mmol/L Normal 98-108 [facility] Comment on above: Performed By: #### L 500.2500 #### [facility] [address] [place], [address] CO2 [Moles/Vol] 24.1 mmol/L Normal 21.0-32.0 [facility] Comment on above: Performed By: #### L 500.2500 #### [facility] [address] [place], [address] Creatinine [Mass/Vol] 0.68 mg/dL Low 0.70-1.20 [facility] Comment on above: Performed By: #### L 500.2500 #### [facility] [address] [place], [address] ECRCL 53.82 ml/min Normal 50-250 [facility] Comment on above: Performed By: #### L 500.2500 #### [facility] [address] [place], [address] GAP 12 Normal 5-15 [facility] Comment on above: Performed By: #### L 500.2500 #### [facility] [address] [place], [address] GFR/1.73 sq M.predicted among non-blacks MDRD (S/P/Bld) [Vol rate/Area] 94 mL/min/{1.73_m2} Normal >60 [facility] Comment on above: Result Comment: mL/m in/1.73m2 CKD-EPI Creatinine Equation (2020) Performed By: #### L 500.2500 #### [facility] [address] [place], [address] Glucose [Mass/Vol] 110 mg/dL High 70-99 [facility] Comment on above: Performed By: #### L 500.2500 #### [facility] [address] [place], [address] Potassium [Moles/Vol] 5.5 mmol/L High 3.3-5.1 [facility] Comment on above: Result Comment: Hemo lysis present, Results??could be affected. ?? Performed By: #### L 500.2500 #### [facility] [address] [place], [address] Sodium [Moles/Vol] 142 mmol/L Normal 133-145 [facility] Comment on above: Performed By: #### L 500.2500 #### [facility] [address] [place], [place], [address] Urea nitrogen [Mass/Vol] 19 mg/dL Normal 4-19 [facility] Comment on above: Performed By: #### L 500.2500 #### [facility] [address] [place], [address] 12 Lead EKGon 02-15-2025 12 Lead EKG [facility] Cardiovascular Services [address] [place] [address] 12 Lead EKG 02/15/25 0839 MR#: [id number] Acct: [id number] Name: ASHLEY GÓMEZ Rep #: [id number] : 1955 69 From: Ezequiel Gusman MD Attending Dr: Dr. Bunny Avilez, DO Status: D IS IN Ordering Dr: Wilfred Bryan MD Date: 02/15/25 [place] [facility] [place] F C Admitted: 02/15/25 Test Reason : SOB Blood Pressure : */* mmHG Vent. Rate : 84 BPM Atrial Rate : 84 BPM P-R Int : 154 ms QRS Dur : 72 ms QT Int : 384 ms P-R-T Axes : 88 64 29 degrees QTcB Int : 453 ms Normal sinus rhythm Normal ECG Confirmed by EZEQUIEL GUSMAN MD ([id number]), newspaper editor managing TIFFANI BENZ ([id number]) on 02/18/2025 8:22:27 AM Referred By: JOMAR Confirmed By: [place] [id number] Date Ezequiel Gusman MD CC: Dr. Wilfred Bryan MD; Dr. Bunny Avilez DO; Dr. Danish Davila DO Signed Normal [facility] Absolute lymphocyte countOrd ered By: Wilfred Bryan on 02-15-2025 Lymphocytes Auto (Unsp spec) [#/Vol] 1.81 10*3/uL 0.83-4.51 [facility] Absolute neutrophil countOrd ered By: Wilfred Bryan on 02-15-2025 Neutrophils (Bld) [#/Vol] 7.2 10*3/uL 2.0-7.7 [facility] Anion gap in Serum or Plasma Ordered By: Wilfred Bryan on 02-15-2025 Anion gap [Moles/Vol] 13 mmol/L 5-15 [facility] Automated lymphocyte count a s percentage of total leukocytesOrdered By: Wilfred Bryan on 02-15-2025 Lymphocytes/100 WBC Auto (Unsp spec) 19.2 % 19-41 [facility] BUN/creatinine ratioOrdered By: Wilfred Bryan on 02-15-2025 Urea nitrogen/Creatinine [Mass ratio] 22.4 mg/mg High 10-20 [facility] Basic Metabolic Profile (BMP )on 02-15-2025 BUN/CRE 22.4 RATIO High - [facility] Comment on above: Performed By: #### L 500.2500, L100.0100 #### [facility] [address] [place], [address] Calcium [Mass/Vol] 9.8 mg/dL Normal 7.6-11.0 [facility] Comment on above: Performed By: #### L 500.2500, L100.0100 #### [facility] [address] [place], [address] Chloride [Moles/Vol] 101 mmol/L Normal 98-108 [facility] Comment on above: Performed By: #### L 500.2500, L100.0100 #### [facility] [address] [place], [address] CO2 [Moles/Vol] 26.3 mmol/L Normal 21.0-32.0 [facility] Comment on above: Performed By: #### L 500.2500, L100.0100 #### [facility] [address] [place], [address] Creatinine [Mass/Vol] 0.75 mg/dL Normal 0.70-1.20 [facility] Comment on above: Performed By: #### L 500.2500, L100.0100 #### [facility] [address] [place], [address] ECRCL 53.51 ml/min Normal 50-250 [facility] Comment on above: Performed By: #### L 500.2500, L100.0100 #### [facility] [address] [place], [address] GAP 13 Normal 5-15 [facility] Comment on above: Performed By: #### L 500.2500, L100.0100 #### [facility] [address] [place], [address] GFR/1.73 sq M.predicted among non-blacks MDRD (S/P/Bld) [Vol rate/Area] 86 mL/min/{1.73_m2} Normal >60 [facility] Comment on above: Result Comment: mL/m in/1.73m2 CKD-EPI Creatinine Equation (2020) Performed By: #### L 500.2500, L100.0100 #### [facility] [address] [place], [address] Glucose [Mass/Vol] 136 mg/dL High 70-99 [facility] Comment on above: Performed By: #### L 500.2500, L100.0100 #### [facility] [address] [place], [address] Potassium [Moles/Vol] 3.2 mmol/L Low 3.3-5.1 [facility] Comment on above: Performed By: #### L 500.2500, L100.0100 #### [facility] [address] [place], [address] Sodium [Moles/Vol] 140 mmol/L Normal 133-145 [facility] Comment on above: Performed By: #### L 500.2500, L100.0100 #### [facility] [address] [place], [address] Urea nitrogen [Mass/Vol] 17 mg/dL Normal 4-19 [facility] Comment on above: Performed By: #### L 500.2500, L100.0100 #### [facility] [address] [place], [address] Basophil percentageOrdered B y: Wilfred Bryan on 02-15-2025 Basophils/100 WBC (Bld) 1.0 % 0-1 [facility] CBC W/Diff, Automatedon 02-02 Absolute Lymph 1.81 X10 3/uL Normal 0.83-4.51 [facility] Comment on above: Performed By: #### L 500.2500, L100.0100 #### [facility] [address] [place], [address] Absolute Neut 7.2 X10 3/uL Normal 2.0-7.7 [facility] Comment on above: Performed By: #### L 500.2500, L100.0100 #### [facility] [address] [place], [address] Basophils/100 WBC (Bld) 1.0 % Normal 0-1 [facility] Comment on above: Performed By: #### L 500.2500, L100.0100 #### [facility] [address] [place], [address] Eosinophils/100 WBC (Bld) 0.7 % Normal 0-5 [facility] Comment on above: Performed By: #### L 500.2500, L100.0100 #### [facility] [address] [place], [address] Erythrocyte distribution width (RBC) [Ratio] 13.2 % Normal 11.6-14.6 [facility] Comment on above: Performed By: #### L 500.2500, L100.0100 #### [facility] [address] [place], [address] Hematocrit (Bld) [Volume fraction] 41.5 % Normal 37-47 [facility] Comment on above: Performed By: #### L 500.2500, L100.0100 #### [facility] [address] [place], [address] Hemoglobin (Bld) [Mass/Vol] 13.6 g/dL Normal 12.0-15.0 [facility] Comment on above: Performed By: #### L 500.2500, L100.0100 #### [facility] [address] [place], [address] IG% 0.200 Normal 0.0-0.9 [facility] Comment on above: Result Comment: IG% - Immature Granulocytes (promyelocytes, myelocytes and metamyelocytes) > 1% indicates that a LEFT SHIFT is Present. Performed By: #### L 500.2500, L100.0100 #### [facility] [address] [place], [address] Lymphocytes/100 WBC (Bld) 19.2 % Normal 19-41 [facility] Comment on above: Performed By: #### L 500.2500, L100.0100 #### [facility] [address] [place], [address] MCH (RBC) [Entitic mass] 29.9 pg Normal 27.0-32.0 [facility] Comment on above: Performed By: #### L 500.2500, L100.0100 #### [facility] [address] [place], [address] MCHC (RBC) [Mass/Vol] 32.8 g/dL Normal 32-36 [facility] Comment on above: Performed By: #### L 500.2500, L100.0100 #### [facility] [address] [place], [address] MCV (RBC) [Entitic vol] 91.2 fL Normal 81-99 [facility] Comment on above: Performed By: #### L 500.2500, L100.0100 #### [facility] [address] [place], [address] Monocytes/100 WBC (Bld) 1.9 % Normal 0-10 [facility] Comment on above: Performed By: #### L 500.2500, L100.0100 #### [facility] [address] [place], [address] Neutrophils/100 WBC (Bld) 77.0 % High 47-70 [facility] Comment on above: Performed By: #### L 500.2500, L100.0100 #### [facility] [address] [place], [address] Nucleated RBC (Bld) [#/Vol] 0 10*3/uL Normal 0-5 [facility] Comment on above: Performed By: #### L 500.2500, L100.0100 #### [facility] [address] [place], [address] Platelet mean volume (Bld) [Entitic vol] 9.7 fL Normal 6.2-12.0 [facility] Comment on above: Performed By: #### L 500.2500, L100.0100 #### [facility] [address] [place], [address] Platelets (Bld) [#/Vol] 263 10*3/uL Normal 150-450 [facility] Comment on above: Performed By: #### L 500.2500, L100.0100 #### [facility] [address] [place], [address] RBC (Bld) [#/Vol] 4.55 10*6/uL Normal 4.2-5.4 [facility] Comment on above: Performed By: #### L 500.2500, L100.0100 #### [facility] [address] [place], [address] RDW SD 44.6 fl High 35.1-43.9 [facility] Comment on above: Performed By: #### L 500.2500, L100.0100 #### [facility] [address] [place], [address] WBC (Bld) [#/Vol] 9.4 10*3/uL Normal 4.4-11.0 [facility] Comment on above: Performed By: #### L 500.2500, L100.0100 #### [facility] [address] [place], [address] Carbon dioxide, total [Moles /volume] in Central venous bloodOrdered By: Wilfred Bryan on 02-15-2025 CO2 [Moles/Vol] 26.3 mmol/L 21.0-32.0 [facility] Chest 1 View (Portable)on Chest 1 View (Portable) [facility] Imaging Services [address] [place] [address] Chest 1 View (Portable) MR#: [id number] Acct: [id number] Name: ASHLEY GÓMEZ Rep #: [id number] : 1955 F 69 From: Dejuan Patel DO PCP: Dr. Danish Davila, DO Status: REG ER Study: Chest 1 View (Portable) Date of Exam: 02/15/25 Exam# [id number] Ordering Dr: Wilfred Bryan MD PROCEDURE: CHEST 1 VIEW (PORTABLE) 02/15/2025 REASON FOR EXAM: SHORTNESS OF BREATH TECHNIQUE: Frontal view of the chest. FINDINGS: Hardware: None Heart: Normal size Lungs: Clear Bones: No aggressive Other: RAD/Chest 1 View (Portable) IMPRESSION: No acute process Reading [facility] CC: Dr. Wilfred Bryan MD; Dr. Danish Davila DO Rooming House Operator: Signed Normal [facility] Chloride assayOrdered By: Lloyd Bryan on 02-15-2025 Chloride [Moles/Vol] 101 mmol/L 98-108 [facility] Emergency Department Summary on 02-15-2025 Emergency Department Summary [facility] Medical Records Department [address] [place] [address] Emergency Department Summary 02/15/25 MR#: [id number] Acct: [id number] Name: ASHLEY GÓMEZ Rep #: [id number] : 1955 69 From: Wilfred Bryan MD [...] day. Additionally, sometimes she smokes as well. [facility] Medical History Wears dentures Wears glasses Post-menopausal [...] none current occupational status: employed current occupation: [employer] Smoking Status: Current every day smoker tobacco [...] support pneumoth (more content not included)... Normal [facility] Eosinophil percentageOrdered By: Wilfred Bryan on 02-15-2025 Eosinophils/100 WBC (Bld) 0.7 % 0-5 [facility] Erythrocyte distribution wid th ratioOrdered By: Wilfred Bryan on 02-15-2025 Erythrocyte distribution width (RBC) [Ratio] 13.2 % 11.6-14.6 [facility] Erythrocyte distribution wid th standard deviationOrdered By: Wilfred Bryan on 02-15-2025 Erythrocyte distribution width (RBC) [Ratio] 44.6 fl High 35.1-43.9 [facility] Glomerular filtration rate ( GFR) estimation/1.73 sq m using serum, plasma, or whole bOrdered By: Wilfred Bryan on 02-15-2025 GFR/1.73 sq M.predicted among non-blacks MDRD (S/P/Bld) [Vol rate/Area] 86 mL/min/{1.73_m2} >60 [facility] Comment on above: mL/min/1.73m2 CKD-EP I Creatinine Equation (2020) [facility] H&P Exam - Hospitalist [facility] Medical Records Department [address] [place] [address] H P Exam - Hospitalist 02/15/25 1459 MR#: [id number] Acct: [id number] Name: ASHLEY GÓMEZ Rep #: [id number] : 1955 69 From: Bunny Avilez DO PCP: Dr. Danish Davila, DO Status:ADM IN [place] [facility] [id number] HPI - General General Date of Admission: 02/15/25 Date of Service: 02/15/25 Chief Complaint: Shortness of breath HPI Narrative ASHLEY GÓMEZ, is a 69 F who presents to the emergency room at [facility] with complaints of shortness of breath over [...] acute infiltrates patient will be admitted to [place] [address] for exacerbation of COPD with hypoxia, she will be given aerosol treatments IV Solu-Medrol, pulse ox will be monitored. [facility] Medical History Wears dentures Wears glasses Post-menopausal [...] none current occupational status: employed current occupation: [employer] Smoking Status: Current every day smoker tobacco [...] Vital Signs (more content not included)... Normal [facility] Hematocrit Auto (Bld) [Volum e fraction]Ordered By: Wilfred Bryan on 02-15-2025 Hematocrit (Bld) [Volume fraction] 41.5 % 37-47 [facility] Hemoglobin measurementOrdere d By: Wilfred Bryan on 02-15-2025 Hemoglobin (Bld) [Mass/Vol] 13.6 g/dL 12.0-15.0 [facility] Immature granulocytes/100 WB C Auto (Bld)Ordered By: Wilfred Bryan on 02-15-2025 Immature granulocytes/100 WBC (Bld) 0.200 % 0.0-0.9 [facility] Comment on above: IG% - Immature Granu locytes (promyelocytes, myelocytes and metamyelocytes) > 1% indicates that a LEFT SHIFT is Present. MCV (mean corpuscular volume ) determinationOrdered By: Wilfred Bryan on 02-15-2025 MCV (RBC) [Entitic vol] 91.2 fL 81-99 [facility] Mean corpuscular hemoglobin (MCH) determinationOrdered By: Wilfred Bryan on 02-15-2025 MCH (RBC) [Entitic mass] 29.9 pg 27.0-32.0 [facility] Mean corpuscular hemoglobin concentration (MCHC) determinationOrdered By: Wilfred Bryan on 02-15-2025 MCHC (RBC) [Mass/Vol] 32.8 g/dL 32-36 [facility] Mean platelet volume determi nationOrdered By: Wilfred Bryan on 02-15-2025 Platelet mean volume (Bld) [Entitic vol] 9.7 fL 6.2-12.0 [facility] Monocyte percentageOrdered B y: Wilfred Bryan on 02-15-2025 Monocytes/100 WBC (Bld) 1.9 % 0-10 [facility] Neutrophil percentageOrdered By: Wilfred Bryan on 02-15-2025 Neutrophils/100 WBC (Bld) 77.0 % High 47-70 [facility] Nucleated red blood cell per centageOrdered By: Wilfred Bryan on 02-15-2025 Nucleated RBC/100 WBC (Bld) [Ratio] 0 % 0-5 [facility] Platelet countOrdered By: Lloyd Bryan on 02-15-2025 Platelets (Bld) [#/Vol] 263 10*3/uL 150-450 [facility] Potassium measurement (mass/ volume)Ordered By: Wilfred Bryan on 02-15-2025 Potassium (Unsp spec) [Mass/Vol] 3.2 mmol/L Low 3.3-5.1 [facility] RBC Auto (Bld) [#/Vol]Ordere d By: Wilfred Bryan on 02-15-2025 RBC (Bld) [#/Vol] 4.55 10*6/uL 4.2-5.4 [facility] Serum creatinine measurement (mass/volume)Ordered By: Wilfred Bryan on 02-15-2025 Creatinine [Mass/Vol] 0.75 mg/dL 0.70-1.20 [facility] Serum glucose measurement (m ass/volume)Ordered By: Wilfred Bryan on 02-15-2025 Glucose [Mass/Vol] 136 mg/dL High 70-99 [facility] Serum or plasma calcium janneth urement (mass/volume)Ordered By: Wilfred Bryan on 02-15-2025 Calcium [Mass/Vol] 9.8 mg/dL 7.6-11.0 [facility] Serum or plasma urea nitroge n measurement (mass/volume)Ordered By: Wilrfed Bryan on 02-15-2025 Urea nitrogen [Mass/Vol] 17 mg/dL 4-19 [facility] Sodium levelOrdered By: Wilfred Bryan on 02-15-2025 Sodium [Moles/Vol] 140 mmol/L 133-145 [facility] White blood cell (WBC) count Ordered By: Wilfred Bryan on 02-15-2025 WBC (Bld) [#/Vol] 9.4 10*3/uL 4.4-11.0 [facility] 3602-11-2025 36 Patient advised and voiced understanding. [facility] 2902-10-2025 29 Addended by: JUJU PATTON on: 02/10/2025 03:52 PM Modules accepted: Orders [facility] 36on 02-10-2025 36 Called patient to relay provider message left voicemail to call office back. Mychart message sent to patient. Please relay message to patient. [facility] 36 Message released to patient as written. [...] a new script sent in. Please advise [facility] 36 Left message to return call Gasper Nelson DO 02/10/25 12:43 PM Antibiotic, and prednisone prescribed to her local pharmacy. I would take the prednisone 5 days due to her emphysema [facility] 36 Recent Visits Date Type Provider Dept 11/12/24 Office Visit Siomara Estrada PA-C [facility] 02/22/24 Office Visit Gasper Nelson DO [facility] Showing recent visits within past 365 [...] Most recent labs completed in chart? N/A [facility] 36 Recent Visits Date Type Provider Dept 11/12/24 Office Visit Siomara Estrada PA-C [facility] 02/22/24 Office Visit Gasper Nelson DO [facility] Showing recent visits within past [...] Most recent labs completed in chart? N/A [facility] 36 S: Patient spoke with [facility] nurse regarding chest congestion and [...] refill on her albuterol inhaler. (Sent via VersionEyet request). Allergies and pharmacy verified. R: Offered [...] or worse than normal Protocols used: Breathing Gpotxrwqsx-CUPFU-RW Normal [facility] 36on 12-13-2024 36 Recent Visits Date Type Provider Dept 11/12/24 Office Visit Siomara Estrada PA-C [facility] 02/22/24 Office Visit Gasper Nelson DO [facility] Showing recent visits within past 365 [...] CHOLHDLCRATI 4.2 01/13/2023 NONHDLCHOLES 174 (H) 01/13/2023 [facility] 37on 11-12-2024 37 Personalized Preventative Plan for [...] Recommendations: A preventive eye exam by an registration scheduling specialist is recommended every 1-2 years to screen for glaucoma, cataracts, macular degeneration, and other eye disorders. A preventive dental visit is recommended every 6 months. Try to get at least 150 minutes of exercise per week or 10,000 steps per day on a pedometer. You need 1200-1500mg of calcium and 3683-4023 international units of vitamin D per day. [...] riding a bicycle or a motorcycle Normal [facility] Office Visiton 11-12-2024 Follow-up visit [id number] Ashley Gómez 1955 F Date Provider Department Center 11/12/2024 SIOMARA DIAZ [facility] Family History Problem Relation Age of [...] Brother Alive Brother Alive Level of Service:G0439 [place] PPPS, SUBSEQ VISIT Reason for Visit and Comments: Medicare Annual Wellness Visit Subsequent [677] Normal [facility] Progress Noteon 11-12-2024 Progress Note - Chronic stable was taking simvastatin 80 mg daily but felt that that was too much and she was concerned about problems with her liver so she has been cutting in half and taking 40 mg daily. Will recheck her levels today but I believe this is reasonable enough as her levels have been adequately controlled Normal [facility] Progress Note - Chronic stable she will continue on esomeprazole 40 mg daily. Normal [facility] Progress Note - Chronic stable patient was recently treated for flareup with amoxicillin and prednisone she can take the prednisone she is requesting a lower dose Medrol Dosepak and a second round of antibiotics that she started in some generalized wheezing and congestion strongly encouraged smoking cessation. Normal [facility] Progress Note [facility] - [address] [facility] [address] Dept: [phone] Dept Chief Complaint: Ashley Gómez is an [...] pain. Ga (more content not included)... Normal [facility] 36on 10-31-2024 36 S: Patient spoke with [...] not coughing Protocols used: Cough - Acute Zuh-Djgatwkarw-ZFZA T-AH Normal [facility] Progress Noteon 10-31-2024 Progress Note [facility] - [address] [facility] [address] Dept: [phone] Dept Loc: [phone] Patient was identified and seen today via [...] that they are currently in the state [facility]. If the patient is a [...] orders. Gasper Nelson DO 10/31/2024 12:20 PM [facility] 10-01-2024 36 Received signed receipt of certified letter sent to patient. Scanned to media in chart. [facility] 09-30-2024 36 Recent Visits Date Type Provider Dept 02/22[facility]24 [facility] Show[facility] recent visits within past 365 days and meeting all other requirements Future Appointments Date Type Provider Dept 11/12/24 Appointment DO Gillian Bai [facility] Showing future appointments within next [...] recent labs completed in chart? N/A None [place] [id number] 36 Recent Visits Date Type Provider Dept 02/22/24 Office Visit DO Gillian Bai [facility] Showing recent visits within past 365 days and meeting all other requirements Future Appointments Date Type Provider Dept 09/30/24 [facility] Showing future appointments within [...] CHOLHDLCRATI 4.2 01/13/2023 NONHDLCHOLES 174 (H) 01/13/2023 [facility] 36on 08-05-2024 36 Transferred to result notes [facility] 36 Message released to patient as written. Patient's further questions if applicable: NA Were all questions from office addressed or relayed to the patient from encounter: Yes [place] [id number] Placed call to patient. Unable to reach them by phone to discuss lab results. Left detailed message to return call to discuss results. Please release information to patient [facility] 36 ----- Message from Juju Rodriguez sent at 08/05/2024 7:36 AM EST ----- ----- Message ----- From: Gasper Nelson DO Sent: 08/04/2024 5:20 PM EST To: [facility] Clinical Mold Checker Stable small pulmonary nodules and they now recommend recheck study in 1 year. As noted before she has moderate amount of emphysema. Normal [facility] CT LUNG SCREENING FOLLOW UP LOW DOSEon [...] 2:02 PM EST F/U SCAN SMOKER Normal [facility] 36on 07-24-2024 36 Recent Visits Date Type Provider Dept 02/22/24 Office Visit Gasper Nelson DO [facility] 07/31/23 Office Visit Gasper NelsonDO mg [facility] Showing recent visits within past 365 days and meeting all other requirements Future Appointments Date Type Provider Dept 08/21/24 Appointment Gasper Nelson [facility] Showing future appointments within next [...] CHOLHDLCRATI 4.2 01/13/2023 NONHDLCHOLES 174 (H) 01/13/2023 [facility] 36on 06-28-2024 36 Reason for call: Pari I am calling as the CT Lung [...] to get her scheduled. Thank you Contact [facility] 36 No auth needed. Faxed orders to [facility] for pt to be sched - [facility] will sched/advise pt. My chart mess sent to patient with info to sched. [facility] 36on 06-27-2024 36 Vincent Perez, It looks like the patient navigator has done all that she can do. So it looks like all avenues have been exhausted to try and reach this patient to schedule. [facility] 36 To April to follow up [facility] 36 Mrs. Gómez called in after receiving certified letter. She would like to return to complete the recommended lung screening 3 month follow-up imaging previously ordered by Dr. Nelson. Will send message to provider office to place new referral for imaging and assist patient with scheduling. She prefers [place] for imaging location and is available on Monday the if there are any appointments available. Normal [facility] 36on 06-11-2024 36 RX loaded Next ov 08/21/24 [facility] 36 Medication name: traZODone (Desyrel) 150 MG [...] prior to picking up the medication: Yes [facility] Colonoscopy Reporton 024 Colonoscopy Report [facility] Medical Records Department [address] [place] [address] Colonoscopy Report MR#: [id number] Acct: [id number] Name: ASHLEY GÓMEZ Rep #: [id number] : 1955 68 From: Slim Weiss DO PCP: Dr. Danish Davila DO Status:REG [facility] Patient Name: Ashley Gómez Procedure Date: 04/29/2024 [...] criteria for high risk CPT copyright 2021 [employer]. All rights reserved. The codes documented in this report are preliminary and upon towel folder review may be revised to meet current compliance requirements. Slim Weiss DO 04/29/2024 9:34:45 AM This report has been signed electronically. Number of Addenda: 0 Note Initiated On: 04/29/2024 8:54 AM 04/29/24933 Date Slim Weiss DO Cosigner Signature: Date (if indicated) CC: Dr. Danish Davila DO; Slim Weiss DO Date Dictated: 04/29/24853 Date Transcribed: Rooming House Operator: WES Signed [facility] MR/POSTOP.SAMIRA 04-29-2024 MR/POSTOP.[facility] Medical Records Department [address] [place] [address] Anesthesia Postop Eval I 04/29/241402 MR#: [id number] Acct: [id number] Name: ASHLEY GÓMEZ Rep #: [id number] : 1955 68 From: Supriya Valdovinos CRNA PCP: Dr. Danish Davila DO Status:[facility] Y Race: C Location: EN Anesthesia: Postop [...] Anesthesia document: Postop Eval 1 completed: Yes 08/26/24 1404 Date Supriya Aruna REAL Cosigner Signature: CC: Signed [facility] MR/[id number] 04-29-2024 MR/POSTOPAN2 [facility] Medical Records Department [address] [place] [address] Anesthesia Postop Eval II 04/29/24 1341 MR#: [id number] Acct: [id number] Name: ASHLEY GÓMEZ Rep #: [id number] : 1955 68 From: David Valadez MD PCP: Dr. Danish Davila, DO Status:[facility] Y Race: C Location: EN Anesthesia Postop [...] Anesthesia Complication: No 04/29/24 1342 Date David Ochoa Signature: Date CC: Signed [facility] 36on 04-17-2024 36 Recent Visits Date Type Provider Dept 02/22/24 Office Visit Gasper Nelson DO [facility] 07/31/23 Office Visit Gasper Nelson DO [facility] Showing recent visits within past [...] from any other provider? No None Normal [facility] 3604-12-2024 36 Orders cancelled [facility] 3604-11-2024 36 We have been unable to reach your patient to schedule their testing. Test Name: CT lung screening follow up, PFT and Mammo 1st Attempt: 03/30/24 2nd Attempt: 04/11/24 Jae, [facility] Central Scheduling [facility] Lipid 1996 panelon 4 Cholesterol [Mass/Vol] 162 mg/dL NINF - 200 mg/dL [facility] Cholesterol in HDL [Mass/Vol] 38 mg/dL Low 40 - 60 mg/dL [facility] Cholesterol in LDL [Mass/Vol] 106 mg/dL High 0 - <100 [facility] Cholesterol.total/Choles terol in HDL [Mass ratio] 4 {ratio} [facility] Comment on above: Ref Range: < 3 Low Risk for CHD 3-6 Mod Risk for CHD > 6 High Risk for CHD Interpretation and review of laboratory results Abnormal [facility] Triglyceride [Mass/Vol] 91 mg/dL NINF - 150 mg/dL [facility] Absolute lymphocyte counton 01-31-2022 Lymphocytes Auto (Unsp spec) [#/Vol] 1.28 10*3/uL 0.83-4.51 [facility] Work Phone: Basophil percentageon 2021 Basophils/100 WBC (Bld) 0.3 % 0-1 [facility] Work Phone: Chloride [Moles/Vol] 100 mmol/L 98-107 [facility] Work Phone: [phone] Eosinophils/100 WBC (Bld) 0.0 % 0-5 [facility] Work Phone: Glucose [Mass/Vol] 153 mg/dL 74-106 [facility] Work Phone: Comment on above: Fasting Glucose resu lt greater than or equal to 126 mg/dL suggests DIABETES MELLITUS per A.D.A. criteria. Neutrophils (Bld) [#/Vol] 17.2 10*3/uL 2.0-7.7 [facility] Work Phone: Neutrophils/100 WBC (Bld) 88.5 % 47-70 [facility] Work Phone: [phone] Potassium [Moles/Vol] 3.2 mmol/L 3.5-5.1 [facility] Work Phone: Comment on above: Slight Hemolysis, Re sult may be falsely increased. Sodium [Moles/Vol] 135 mmol/L 136-145 [facility] Work Phone: [phone] WBC (Bld) [#/Vol] 19.4 10*3/uL 4.4-11.0 [facility] Work Phone: [phone] Blood erythrocytes count (nu mber/volume)on 01-31-2022 RBC (Bld) [#/Vol] 4.26 10*6/uL 4.2-5.4 [facility] Work Phone: Blood hemoglobin measurement (mass/volume)on 01-31-2022 Hemoglobin (Bld) [Mass/Vol] 12.5 g/dL 12.0-15.0 [facility] Work Phone: Blood lymphocytes/100 leukoc yteson 01-31-2022 Lymphocytes/100 WBC (Bld) 6.6 % 19-41 [facility] Work Phone: Blood monocytes/100 leukocyt eson 01-31-2022 Monocytes/100 WBC (Bld) 3.5 % 0-10 [facility] Work Phone: [phone] Blood platelet mean volumeon 01-31-2022 Platelet mean volume (Bld) [Entitic vol] 10.4 fL 6.2-12.0 [facility] Work Phone: [phone] Determination of erythrocyte mean corpuscular volume (MCV)on 01-31-2022 MCV (RBC) [Entitic vol] 88.0 fL 81-99 [facility] Work Phone: [phone] Hematocrit Auto (Bld) [Volum e fraction]on 01-31-2022 Hematocrit (Bld) [Volume fraction] 37.5 % 37-47 [facility] Work Phone: [phone] Laboratory - Chemistry and C hemistry - challengeon 01-31-2022 CO2 [Moles/Vol] 27.0 mmol/L 21.0-32.0 [facility] Work Phone: [phone] Urea nitrogen/Creatinine [Mass ratio] 22.0 mg/mg 10-20 [facility] Work Phone: [phone] Laboratory - Hematology and Cell countson 01-31-2022 Erythrocyte distribution width (RBC) [Entitic vol] 45.4 fL 35.1-43.9 [facility] Work Phone: [phone] Erythrocyte distribution width (RBC) [Ratio] 14.1 % 11.6-14.6 [facility] Work Phone: [phone] Immature granulocytes/100 WBC (Bld) 1.100 % 0.0-0.9 [facility] Work Phone: [phone] Comment on above: IG% - Immature Granu locytes (promyelocytes, myelocytes and metamyelocytes) > 1% indicates that a LEFT SHIFT is Present. MCH (RBC) [Entitic mass] 29.3 pg 27.0-32.0 [facility] Work Phone: Nucleated RBC/100 WBC (Bld) [Ratio] 0 % 0-5 [facility] Work Phone: MCHC Auto (RBC) [Mass/Vol]on 01-31-2022 MCHC (RBC) [Mass/Vol] 33.3 g/dL 32-36 [facility] Work Phone: No Panel Informationon 01-31 Estimated Creatinine Clearance Calc 49.62 ml/min [facility] Work Phone: Estimated GFR (MDRD) Amer 79 mL/min >60 [facility] Work Phone: Comment on above: GFR Calc Estimated GFR (MDRD) Non-Af Amer 65 mL/min >60 [facility] Work Phone: Comment on above: Non- GFR Calc SARS-CoV-2 & FLU Antigen (Rapid) [facility] Work Phone: Platelets bldon 01-31-2022 Platelets (Bld) [#/Vol] 188 10*3/uL 150-450 [facility] Work Phone: Serum or plasma calcium janneth urement (mass/volume)on 01-31-2022 Calcium [Mass/Vol] 9.4 mg/dL 8.5-10.1 [facility] Work Phone: Serum or plasma creatinine m easurement (mass/volume)on 01-31-2022 Creatinine [Mass/Vol] 0.91 mg/dL 0.55-1.02 [facility] Work Phone: Comment on above: The validity of the calculated GFR & GFRAA in patients over 70 years has not been determined. Clinical correlation is essential. Serum or plasma urea nitroge n measurement (mass/volume)on 01-31-2022 Urea nitrogen [Mass/Vol] 20 mg/dL 7-18 [facility] Work Phone: Thin prep Papanicolaou smear with manual screeningon 01-31-2022 Thin prep Papanicolaou smear with manual screening 8 5-15 [facility] Work Phone: DEXA Bone Density Axial Skel etonon 01-11-2022 [facility]: [id number]ensity ACCESSION EXAM DATE/TIME PROCEDURE ORDERING PROVIDER [id number] 01/11/2022 15:04 EDT OT Bone Density DEXA SUSYDO CANALES PAUL E. Axial Skeleton CPT code 36518 Reason For Exam (OT Bone Density DEXA Axial Skeleton) . Report DXA BONE DENSITOMETRY: CLINICAL INDICATION: Asymptomatic post-menopausal status COMPARISON: None TECHNIQUE: Quantitative bone mineral densitometry of the hip and lumbar spine was performed with a dual energy x-ray observed absorptiometry device - HoloVakast Horizon W. Regions of interest were obtained [...] recommendations for prevention of bone loss include: 1731-8761 mg calcium intake per day for adults [...] and Follow-up. [employer] Evidence-Based Summaries. [facility] for Education and Research. 2017 Bone Density Report Report Dictated on --- Final --- Dictating Physician: MD SANTIAGO LAUREN B Signed Date and Time: 01/11/2022 4:03 pm Signed by: MD SANTIAGO LAUREN B Transcribed Date and Time: 01/11/2022 4:05 Bari Funes MD - 01/11/2022 Patient Name: ASHLEY GÓMEZ Bone Density ACCESSION EXAM DATE/TIME PROCEDURE ORDERING PROVIDER [id number] 01/11/2022 15:04 EDT OT Bone Density DEXA DO DAVILA PAUL E. Axial Skeleton CPT code 03325 Reason For Exam (OT Bone Density DEXA Axial Skeleton) . Report DXA BONE DENSITOMETRY: CLINICAL INDICATION: Asymptomatic post-menopausal status COMPARISON: None TECHNIQUE: Quantitative bone mineral densitometry of the hip and lumbar spine was performed with a dual energy x-ray observed absorptiometry device - HoloVakast Horizon W. Regions of interest were obtained [...] recommendations for prevention of bone loss include: 8613-5457 mg calcium intake per day for adults [...] and Follow-up. [employer] Evidence-Based Summaries. [facility] [employer] for Education and Research. 2017 Bone Density Report Report Dictated on --- Final --- Dictating Physician: MD SANTIAGO LAUREN B Signed Date and Time: 01/11/2022 4:03 pm Signed by: MD PAMELA, BARI Duke Transcribed Date and Time: 01/11/2022 4:05 [facility] Work Phone: Radiology Study observation (narrative) [facility] Work Phone: DEXA Bone Density Axial Skel etonOrdered By: Bari Santiago on 01-11-2022 [facility] Work Phone: MG Breast Tomosynthesis Scr Blon 01-11-2022 MG Breast Tomosynthesis Scr Bl Patient Name: ASHLEY GÓMEZ Mammography ACCESSION EXAM DATE/TIME PROCEDURE ORDERING PROVIDER [id number] 01/11/2022 15:01 EDT MG Breast Tomosynthesis DO DAVILA PAUL E. BI Scr CPT code 29789 29622 Reason For Exam (MG Breast Tomosynthesis BI [...] 20, 2013, bilateral screening mammogram performed at [facility]. TISSUE DENSITY: BIRADS B - There are [...] images: BB's = Nipples; skin lesions Open robinson = Palpable Line = Scar 2D digital [...] am Signed by: MD SANTIAGO LAUREN B [facility] OT Bone Density DEXA Axial S nick 01-11-2022 OT Bone Density DEXA Axial Skeleton Patient Name: ASHLEY GÓMEZ Bone Density ACCESSION EXAM DATE/TIME PROCEDURE ORDERING PROVIDER [id number] 01/11/2022 15:04 EDT OT Bone Density DEXA DO DAVILA PAUL E. Axial Skeleton CPT code 13672 Reason For Exam (OT Bone Density DEXA Axial Skeleton) . Report DXA BONE DENSITOMETRY: CLINICAL INDICATION: Asymptomatic post-menopausal status COMPARISON: None TECHNIQUE: Quantitative bone mineral densitometry of the hip and lumbar spine was performed with a dual energy x-ray observed absorptiometry device - HoloVakast Horizon W. Regions of interest were obtained [...] recommendations for prevention of bone loss include: 2924-3000 mg calcium intake per day for adults [...] Fara of Knowledge Evidence-Based Summaries. [facility] Building[facility] and Research. 2017 Bone Density Report Report Dictated on Final Dictating Physician: MD SANTIAGO LAUREN B Signed Date and Time: 01/11/2022 4:03 pm Signed by: MD SANTIAGO LAUREN B Transcribed Date and Time: 01/11/2022 4:05 Normal [facility] 10[facility]23[facility]2020 [facility] Telephone (GASTTW) ---- ASHLEY GÓMEZ ([id number]) 1955 F Date Time Provider Department 10/23/20 [...] Fully Assessed Reason for Visit: Schedule Evaluation [2333] Prescriptions as of 10/23/2020 Sig: HYDROCODONE 5 [...] by GERMAN RAMIREZ MD on 10/23/20 Normal [facility] No Panel Information SARS-CoV-2 & FLU Antigen (Rapid) [facility] Work Phone: Vital Signs Date Time Vital Sign Value Performing Clinician Facility 02-17-2025 08:14-0400 Body temperature 98.2 [degF] Dr. Danish Davila DO Work Phone: [facility] 02-17-2025 08:14-0400 Diastolic blood pressure 54 mm[Hg] Dr. Danish Davila DO Work Phone: [facility] 02-17-2025 08:14-0400 Heart rate 76 /min Dr. Danish Davila DO Work Phone: [facility] 02-17-2025 08:14-0400 Respiratory rate 18 /min Dr. Danish Davila DO Work Phone: [facility] 02-17-2025 08:14-0400 SaO2% (BldA) [Mass fraction] 92 % Dr. Danish Davila DO Work Phone: [facility] 02-17-2025 08:14-0400 Systolic blood pressure 131 mm[Hg] Dr. Danish Davila DO Work Phone: [facility] 02-17-2025 04:32-0400 Inhaled oxygen flow rate 2 L/min Dr. Danish Davila DO Work Phone: [facility] 02-16-2025 15:06-0400 Body height 162.[address] Danish Davila DO Work Phone: [facility] 02-16-2025 15:06-0400 Body weight 52.[address] Danish Davila DO Work Phone: [facility] 02-15-2025 11:58-0400 Body mass index (BMI) [Ratio] 19.7 kg/m2 Dr. Danish Davila DO Work Phone: [facility] 02-15-2025 10:47-0400 Body temperature 98 [degF] Dr. Danish Davila DO Work Phone: [facility] 02-15-2025 10:47-0400 Diastolic blood pressure 68 mm[Hg] Dr. Danish Davila DO Work Phone: [facility] 02-15-2025 10:47-0400 Heart rate 87 /min Dr. Danish Davila DO Work Phone: [facility] 02-15-2025 10:47-0400 Respiratory rate 19 /min Dr. Danish Davila DO Work Phone: [facility] 02-15-2025 10:47-0400 SaO2% (BldA) [Mass fraction] 91 % Dr. Danish Davila DO Work Phone: [facility] 02-15-2025 10:47-0400 Systolic blood pressure 132 mm[Hg] Dr. Danish Davila DO Work Phone: [facility] 02-15-2025 10:30-0400 Inhaled oxygen flow rate 2 L/min Dr. Danish Davila DO Work Phone: [facility] 02-15-2025 08:30-0400 Body height 162.[address] Danish Davila DO Work Phone: [facility] 02-15-2025 08:30-0400 Body mass index (BMI) [Ratio] 19.5 kg/m2 Dr. Danish Davila DO Work Phone: [facility] 02-15-2025 08:30-0400 Body weight 51.[address] Danish Davila DO Work Phone: [facility] 11-12-2024 09:09-0400 Diastolic blood pressure 80 mm[Hg] Siomara Estrada PA-C Work Phone: [facility] 11-12-2024 09:09-0400 Systolic blood pressure 132 mm[Hg] Siomara Falcono PA-C Work Phone: [facility] 11-12-2024 08:38-0400 Body height 162.6 cm Siomara Falcono PA-C Work Phone: [facility] 11-12-2024 08:38-0400 Body mass index (BMI) [Ratio] 20.6 kg/m2 Siomara Falcono PA-C Work Phone: [facility] 11-12-2024 08:38-0400 Body temperature 97.2 [degF] Siomara Falcono PA-C Work Phone: [facility] 11-12-2024 08:38-0400 Body weight 54.43 kg Siomara Falcono PA-C Work Phone: [facility] 11-12-2024 08:38-0400 Heart rate 83 /min Siomara Estrada PA-C Work Phone: [facility] [employer] 11-12-2024 08:38-0400 SaO2% (BldA) [Mass fraction] 90 % Siomara Estrada PA-C Work Phone: [facility] [employer] 02-22-2024 12:58-0400 Body height 162.6 cm Gasper Nelson DO Work Phone: [facility] 02-22-2024 12:58-0400 Body mass index (BMI) [Ratio] 21.11 kg/m2 Gasper Riveraa DO Work Phone: [facility] [employer] 02-22-2024 12:58-0400 Body temperature 97 [degF] Gasper Riveraa DO Work Phone: [facility] 02-22-2024 12:58-0400 Body weight 55.79 kg Gasper Riveraa DO Work Phone: [facility] 02-22-2024 12:58-0400 Diastolic blood pressure 74 mm[Hg] Gasper Riveraa DO Work Phone: [facility] 02-22-2024 12:58-0400 Heart rate 71 /min Gasper Riveraa DO Work Phone: [facility] 02-22-2024 12:58-0400 SaO2% (BldA) [Mass fraction] 97 % Gasper Riveraa DO Work Phone: [facility] 02-22-2024 12:58-0400 Systolic blood pressure 115 mm[Hg] Gasper Riveraa DO Work Phone: [facility] [employer] 07-31-2023 15:37-0500 Body height 162.6 cm Gasper Riveraa DO Work Phone: [facility] [employer] 07-31-2023 15:37-0500 Body mass index (BMI) [Ratio] 20.53 kg/m2 Gasper Riveraa DO Work Phone: [facility] [employer] 07-31-2023 15:37-0500 Body temperature 97.81 [degF] Gasper Nelson DO Work Phone: [facility] [employer] 07-31-2023 15:37-0500 Body weight 54.25 kg Gasper Nelson DO Work Phone: [facility] [employer] 07-31-2023 15:37-0500 Diastolic blood pressure 78 mm[Hg] Gasper Nelson DO Work Phone: [facility] [employer] 07-31-2023 15:37-0500 Heart rate 80 /min Gasper Nelson DO Work Phone: [facility] [employer] 07-31-2023 15:37-0500 SaO2% (BldA) [Mass fraction] 94 % Gasper Nelson DO Work Phone: [facility] [employer] 07-31-2023 15:37-0500 Systolic blood pressure 138 mm[Hg] Gasper Nelson DO Work Phone: [facility] 01-13-2023 09:24-0400 Body height 162.6 cm Gasper Nelson DO Work Phone: [facility] 01-13-2023 09:24-0400 Body mass index (BMI) [Ratio] 19.74 kg/m2 Gasper Nelson DO Work Phone: [facility] 01-13-2023 09:24-0400 Body temperature 97.5 [degF] Gasper Nelson DO Work Phone: [facility] 01-13-2023 09:24-0400 Body weight 52.16 kg Gasper Nelson DO Work Phone: [facility] 01-13-2023 09:24-0400 Diastolic blood pressure 73 mm[Hg] Gasper Nelson DO Work Phone: [facility] 01-13-2023 09:24-0400 Heart rate 89 /min Gasper Nelson DO Work Phone: [facility] 01-13-2023 09:24-0400 SaO2% (BldA) [Mass fraction] 99 % Gasper Nelson DO Work Phone: [facility] 01-13-2023 09:24-0400 Systolic blood pressure 118 mm[Hg] Gasper Nelson DO Work Phone: [facility] 11-14-2022 11:49-0400 Body height 162.6 cm Siomara Estrada PA-C Work Phone: [facility] 11-14-2022 11:49-0400 Body mass index (BMI) [Ratio] 20.6 kg/m2 Siomara Estrada PA-C Work Phone: [facility] 11-14-2022 11:49-0400 Body temperature 98.01 [degF] Siomara Estrada PA-C Work Phone: [facility] 11-14-2022 11:49-0400 Body weight 54.43 kg Siomara Estrada PA-C Work Phone: [facility] 11-14-2022 11:49-0400 Diastolic blood pressure 80 mm[Hg] Siomara Estrada PA-C Work Phone: [facility] 11-14-2022 11:49-0400 Heart rate 82 /min Siomara Estrada PA-C Work Phone: [facility] 11-14-2022 11:49-0400 SaO2% (BldA) [Mass fraction] 95 % Siomara Falcono PA-C Work Phone: [facility] 11-14-2022 11:49-0400 Systolic blood pressure 138 mm[Hg] Siomara Estrada PA-C Work Phone: [facility] 10-03-2022 08:39-0500 Body height 162.6 cm Danish Davila DO Work Phone: [facility] [employer] 10-03-2022 08:39-0500 Body mass index (BMI) [Ratio] 20.63 kg/m2 aDnish Davila DO Work Phone: [facility] [employer] 10-03-2022 08:39-0500 Body temperature 97.11 [degF] Danish Davila DO Work Phone: [facility] 10-03-2022 08:39-0500 Body weight 54.52 kg Danish Davila DO Work Phone: [facility] 10-03-2022 08:39-0500 Diastolic blood pressure 63 mm[Hg] Danish Davila DO Work Phone: [facility] 10-03-2022 08:39-0500 Heart rate 74 /min Danish Davila DO Work Phone: [facility] 10-03-2022 08:39-0500 SaO2% (BldA) [Mass fraction] 93 % Danish Davila DO Work Phone: [facility] [employer] 10-03-2022 08:39-0500 Systolic blood pressure 118 mm[Hg] Danish Davila DO Work Phone: [facility] 01-31-2022 09:50-0400 Body temperature 99.4 [degF] [facility] Work Phone: 01-31-2022 09:50-0400 Diastolic blood pressure 97 mm[Hg] [facility] Work Phone: 01-31-2022 09:50-0400 Heart rate 100 /min [facility] Work Phone: 01-31-2022 09:50-0400 Respiratory rate 18 /min [facility] Work Phone: 01-31-2022 09:50-0400 SaO2% (BldA) [Mass fraction] 96 % [facility] Work Phone: 01-31-2022 09:50-0400 Systolic blood pressure 116 mm[Hg] [facility] Work Phone: 01-31-2022 09:20-0400 Body height 160.02 cm [facility] Work Phone: 01-31-2022 09:20-0400 Body mass index (BMI) [Ratio] 21.2 kg/m2 [facility] Work Phone: 01-31-2022 09:20-0400 Body weight 54.43 kg [facility] Work Phone: Encounters Encounter Date Encounter Type Care Provider Facility Start: 03-03-2025 Evaluation and management of inpatient Gasper Nelson Facility:[facility] Start: 02-24-2025 End: 02-24-2025 Refill Gasper Nelson DO Work Phone: [facility] Start: 02-16-2025 Non-patient / Non-visit Dr. Malaika Avilez DO [facility] Work Phone: Start: 02-15-2025 Non-patient / Non-visit Dr. Malaika Avilez DO [facility] Work Phone: Start: 02-15-2025 ambulatory Bunny Avilez Facilit y:[facility] Start: 02-15-2025 End: 02-17-2025 Evaluation and management of inpatient Dr. Bunny Avilez DO -[facility] Work Phone: Start: 02-10-2025 End: 02-10-2025 Orders Only Gasper Nelson DO Work Phone: [facility] Comment on above: Chronic obstructive pulmonary disease with acute exacerbation (HCC) Release of Informati on Other insomnia Start: 02-09-2025 End: 02-10-2025 Refill Siomara Estrada PA-C Work Phone: [facility] Comment on above: Chronic obstructive pulmonary disease with acute exacerbation (HCC) Start: 12-13-2024 End: 12-13-2024 Refill Gasper Nelson DO Work Phone: [facility] Start: 11-20-2024 End: 12-02-2024 Refill Gasper Nelson DO Work Phone: [facility] Comment on above: Other insomnia Start: 11-12-2024 End: 11-12-2024 Assay of hemosiderin, quant Siomara Estrada PA-C Work Phone: [facility] Work Phone: Start: 11-12-2024 End: 11-12-2024 Patient encounter procedure Siomaar Estrada PA-C Work Phone: [facility] [place] Comment on above: Routine general medi olga lidia examination at health care facility (Primary Dx); Encounter for screening mammogram for malignant neoplasm of breast; Hypercholesterolemia; Chronic obstructive pulmonary disease with acute exacerbation (HCC); Gastroesophageal reflux disease without esophagitis Start: 11-12-2024 End: 11-12-2024 ambulatory SIOMARA [facility] Start: 11-12-2024 End: 11-12-2024 Encounter for general adult medical examination without abnormal findings [facility] Start: 10-31-2024 End: 10-31-2024 Patient encounter procedure Michell Chin RN [facility] Clinical Communication Start: 10-31-2024 End: 10-31-2024 ambulatory Michell Chin RN [facility] Clinical Communication Start: 10-31-2024 End: 10-31-2024 Office outpatient visit 15 minutes Gasper Nelson DO Work Phone: [facility] [place] Comment on above: Chronic obstructive pulmonary disease with acute exacerbation (HCC) (Primary Dx); Influenza Start: 09-28-2024 End: 09-30-2024 Refill Gasper Nelson DO Work Phone: [facility] [place] Start: 09-14-2024 End: 09-16-2024 Refill Gasper Nelson DO Work Phone: [facility] [place] Start: 07-29-2024 End: 07-29-2024 [facility] Start: 07-29-2024 End: 07-29-2024 Subsequent hospital visit by physician Gasper Nelson DO Work Phone: [facility] Comment on above: Abnormal CT scan of lung; Smoker Start: 07-24-2024 End: 07-24-2024 Refill [facility] Start: 06-28-2024 End: 07-01-2024 Telephone encounter [facility] Start: 06-11-2024 End: 06-11-2024 Refill Gasper Teixeiradorinaarleen DO Work Phone: [facility] Start: 04-29-2024 End: 04-29-2024 ambulatory Slim Weiss Facility:[facility] Start: 04-23-2024 End: 06-20-2024 Telephone encounter Joann Jane [facility] Comment on above: Care Coordination (L aldair Screening Follow up reminder - certified letter sent ) Start: 04-17-2024 End: 04-17-2024 Refill Gasper Serrano Miguelarleen DO Work Phone: [facility] Start: 04-11-2024 End: 04-11-2024 Telephone encounter Gasper Serrano Miguelarleen DO Work Phone: [facility] Comment on above: Other (Scheduling at [facility]) Start: 03-20-2024 ambulatory [facility] Facility:[facility] Start: 02-22-2024 End: 02-22-2024 Telephone encounter Gasper Serrano Miguelarleen DO Work Phone: [facility] Comment on above: Referral (Dr Weiss) Start: 02-22-2024 End: 02-22-2024 Office outpatient visit 25 minutes Gasper Teixeiradorinaarleen DO Work Phone: [facility] Comment on above: Chronic obstructive pulmonary disease, unspecified COPD type (HCC) (Primary Dx); Abnormal CT scan of lung; Hypercholesterolemia; Colon cancer screening; Breast cancer screening by mammogram; Depression, unspecified depression type; Gastroesophageal reflux disease without esophagitis; Ex-smoker for less than 1 year Start: 02-05-2024 Telephone encounter Gasper byrnes DO Work Phone: [facility] Comment on above: Results Start: 01-02-2024 Refill Gasper vargas DO Work Phone: [facility] Start: 01-01-2024 Orders Only Gasper Serrano Puneet acmarleen DO Work Phone: [facility] Start: 12-24-2023 Orders Only Gasper vargas DO Work Phone: [facility] Start: 12-22-2023 Telephone encounter Gasper Serrano Yair davisa DO Work Phone: [facility] Comment on above: Appointment ([facility]) Start: 12-21-2023 Orders Only Gasper Serrano Puneet cmaarleen DO Work Phone: [facility] Comment on above: COPD with acute exac erbation (HCC); Lower resp. tract infection Start: 12-18-2023 End: 12-18-2023 Subsequent hospital visit by physician Gasper Nelson DO Work Phone: [facility] Comment on above: Smoker; Moderate smoker (20 or less per day) Start: 12-17-2023 Refill Gasper vargas DO Work Phone: [facility] Start: 08-01-2023 Telephone encounter Gasper Serrano Yair davisa DO Work Phone: [facility] Comment on above: Orders (LDCT due in November 2023) Start: 07-31-2023 End: 07-31-2023 Office outpatient visit 15 minutes Gasper Maggie Argentina DO Work Phone: [facility] Comment on above: Chronic obstructive pulmonary disease, unspecified COPD type (HCC) (Primary Dx); Depression, unspecified depression type; Gastroesophageal reflux disease without esophagitis; Hypercholesterolemia Start: 03-14-2023 Telephone encounter Gasper Maggie Yair escobedorilla DO Work Phone: [facility] Comment on above: Handicap Placard Start: 02-27-2023 Telephone encounter Gasper Maggie Yair etrilla DO Work Phone: [facility] Comment on above: Scheduling Start: 01-15-2023 Orders Only Gasper Serrano Puneet vargas DO Work Phone: [facility] Start: 01-13-2023 Telephone encounter Gasper Mazariegos fitz DO Work Phone: [facility] Comment on above: Orders (LDCT) Start: 01-13-2023 End: 01-13-2023 Office outpatient visit 25 minutes Gasper Serrano Argentina DO Work Phone: [facility] Comment on above: Chronic obstructive pulmonary disease, unspecified COPD type (HCC) (Primary Dx); Hypercholesterolemia; Gastroesophageal reflux disease without esophagitis; Smoker; Depression, unspecified depression type Start: 11-14-2022 ambulatory [facility] Start: 11-14-2022 Patient encounter procedure [facility] Start: 11-14-2022 End: 11-14-2022 Office outpatient visit 25 minutes Siomara Estrada PA-C Work Phone: [facility] Comment on above: COPD with acute exac erbation (CMS/HCC) (HCC) (Primary Dx); Lower resp. tract infection; Smoking Start: 10-24-2022 End: 10-24-2022 ambulatory [facility] Work Phone: Start: 10-24-2022 End: 10-24-2022 Patient encounter procedure [facility], [facility] Start: 10-20-2022 Telephone encounter Danish berumen DO Work Phone: [facility] Comment on above: Orders Start: 10-17-2022 Telephone encounter Danish berumen DO Work Phone: [facility] Comment on above: Orders (Fax 10/03/22 XR Chest SULAIMAN, Pt at [facility]) Start: 10-04-2022 Telephone encounter Danish berumen DO Work Phone: [facility] Comment on above: Advice Only (cough) Start: 10-03-2022 End: 10-03-2022 Patient encounter procedure Danish Davila DO Work Phone: [facility] Comment on above: Medicare annual well ness visit, subsequent (Primary Dx); Cough, unspecified type; Chronic obstructive pulmonary disease, unspecified COPD type (HCC); Anxiety; Depression, unspecified depression type; Hypercholesterolemia; Mammogram declined; Colonoscopy refused Start: 04-22-2022 End: 04-22-2022 ambulatory [facility] Work Phone: Start: 04-22-2022 End: 04-22-2022 Patient encounter procedure [facility] Start: 01-31-2022 End: 01-31-2022 Emergency department patient visit [facility] Start: 01-11-2022 End: 01-11-2022 Subsequent hospital visit by physician Danish Davila DO Work Phone: [facility] Comment on above: Menopause Start: 01-10-2022 End: 01-10-2022 Patient encounter procedure [facility] Procedures Date Procedure Procedure Detail Performing Clinician [...] 1996 panel - S anabel or Plasma Gapser Nelson DO Work Phone: Start: 10-24-2022 Plain chest X-ray Start: 10-03-2022 Adult depression scr eening assessment Gasper Nelson DO Work Phone: Start: 04-22-2022 End: 04-22-2022 Plain X-ray of shoulder Start: 01-31-2022 SARS-CoV-2 & FLU Ant igen (Rapid) Start: 01-31-2022 Plain chest X-ray Start: 01-11-2022 Dxa bone density miriam dy 1/> sites axial skel Danish Monahan Giovanni DO Work Phone: Start: 01-11-2022 Mammography Jolanta Six R N Start: 01-10-2022 Plain chest X-ray Start: 06-04-2021 Lipid 1996 panel - S anabel or Plasma Danish Carmonajamaica DO Work Phone: SARS-CoV-2 & FLU Ant igen (Rapid) Plan of Treatment Date Care Activity Detail Author Start: 04-29-2034 Screening for malignant neoplasm of colon [facility] Start: 12-17-2028 Lipid panel Lipid Panel [facility] Start: 01-14-2028 Lipid panel Lipid Panel [facility] Start: 06-04-2026 Lipid panel Lipid Panel [facility] Start: 11-12-2025 COVID-19 Vaccine ( season) COVID-19 Vaccine ( season) [facility] Comment on above: Postponed from 05/05/2024 (Patient Refus ed) Start: 11-12-2025 RSV Immunization for Adults (1 - Risk 60-74 years 1-dose series) RSV Immunization for Adults (1 - Risk 60-74 years 1-dose series) [facility] Comment on above: Postponed from 2014 (Patient Refus ed) Start: 05-15-2025 Depression Monitoring Depression Monitoring [facility] Start: 05-12-2025 End: 05-12-2025 Patient encounter procedure [facility] [place] Start: 05-05-2025 Influenza vaccination Influenza Vaccine (Season Ended) [facility] Start: 03-03-2025 Influenza vaccination Influenza Vaccine (#1) [facility] Comment on above: Postponed from 05/05/2024 (Patient Refus ed) Start: 02-17-2025 Patient discharge [facility] Start: 02-15-2025 Following clinical pathway protocol [facility] Start: 02-15-2025 Ambulation without limitation [facility] Start: 02-15-2025 Assessment of risk of venous thromboembolism [facility] Start: 02-15-2025 Catheterization of vein [facility] Start: 02-15-2025 Insertion of catheter into peripheral vein [facility] Start: 02-15-2025 Oxygen therapy [facility] Start: 02-15-2025 Providing care according to standard [facility] Start: 02-15-2025 Verification routine [facility] Start: 02-15-2025 Admission procedure [facility] Start: 02-15-2025 Hospital admission, emergency, from emergency room, medical nature [facility] Start: 02-15-2025 End: 02-15-2025 [facility] Start: 02-15-2025 [facility] Start: 02-15-2025 Inhalation therapy procedure [facility] Start: 11-12-2024 End: 11-12-2025 CBC W Auto Differential panel - Blood CBC auto differential Lab Routine Routine general medical examination at [facility] Hypercholesterolemia Expected: 11/12/2024 (Approximate), Expires: 11/12/[address] [facility] Comment on above: Expected: 11/12/2024 (Approximate), Expi res: 11/12/2025 Start: 11-12-2024 End: 11-12-2025 Comprehensive metabolic 1998 panel - Serum or Plasma Comprehensive metabolic panel Lab Routine Routine general medical examination at [facility] Hypercholesterolemia Expected: 11/12/2024 (Approximate), Expires: 11/12/[address] [facility] Comment on above: Expected: 11/12/2024 (Approximate), Expi res: 11/12/2025 Start: 11-12-2024 End: 01-12-2026 DBT Breast - bilateral screening Bilateral screening mammogram with tomosynthesis Imaging Routine Encounter for screening mammogram for malignant neoplasm of breast Expected: 11/12/2024, Expires: 01/12/[address] [facility] [employer] Work Phone: Comment on above: Expected: 11/12/2024, Expires: Start: 11-12-2024 End: 11-12-2025 Lipid 1996 panel - Serum or Plasma Lipid panel Lab Routine Hypercholesterolemia Expected: 11/12/2024 (Approximate), Expires: 11/12/2025 [facility] Comment on above: Expected: 11/12/2024 (Approximate), Expi res: 11/12/2025 Start: 11-12-2024 End: 11-12-2024 Patient encounter procedure [facility] Start: 09-30-2024 End: 09-30-2024 Patient encounter procedure 09/30/2024 4:00 PM EST Office Visit [facility] [address] [place] [phone] Gasper Nelson DO [address] [place] [phone] [facility] Start: 09-04-2024 Medicare Advantage Annual Wellness Visit Medicare Advantage Annual Wellness Visit [facility] Start: 08-21-2024 End: 08-21-[address] [facility] Start: 07-29-2024 End: 07-29-2024 Patient encounter procedure 07/29/2024 11:30 AM EST Appointment [facility] [address] [place] [address] Gasper Nelson DO [address] [place] [phone] [facility] [address] Start: 07-29-2024 Subsequent hospital visit by physician 07/29/2024 11:30 AM EST Hospital Encounter [facility] [address] [place] [address] Gasper Nelson DO [address] [place] [phone] [facility] [address] Start: 05-05-2024 COVID-19 Vaccine ( season) COVID-19 Vaccine ( season) [facility] Start: 05-05-2024 COVID-19 Vaccine ( season) COVID-19 Vaccine ( season) [facility] Start: 05-05-2024 Influenza vaccination [facility] Start: 04-29-2024 End: 04-29-2024 Patient encounter procedure 04/29/2024 4:00 PM EDT Office Visit [facility] [address] [place] [address] Gasper Nelson DO [address] [place] [address] [facility] Start: 02-24-2024 Screening for malignant neoplasm of colon [facility] Start: 02-22-2024 End: 02-21-2025 CBC W Auto Differential panel - Blood CBC auto differential Lab Routine Chronic obstructive pulmonary disease, unspecified COPD type (HCC) Expected: 02/22/2024 (Approximate), Expires: 02/21/2025 [facility] Comment on above: Expected: 02/22/2024 (Approximate), Expi res: 02/21/2025 Start: 02-22-2024 End: 02-21-2025 Complete PFT pre and post bronchodilator Complete PFT pre and post bronchodilator PFT Routine Chronic obstructive pulmonary disease, unspecified COPD type (HCC) Expected: 02/22/2024 (Approximate), Expires: 02/21/2025 [facility] Comment on above: Expected: 02/22/2024 (Approximate), Expi res: 02/21/2025 Start: 02-22-2024 End: 02-21-2025 Comprehensive metabolic 1998 panel - Serum or Plasma Comprehensive metabolic panel Lab Routine Chronic obstructive pulmonary disease, unspecified COPD type (HCC) Expected: 02/22/2024 (Approximate), Expires: 02/21/2025 [facility] Comment on above: Expected: 02/22/2024 (Approximate), Expi res: 02/21/2025 Start: 02-22-2024 End: 02-21-2025 CT Chest for screening WO contrast CT lung screening follow up low dose Imaging Routine Abnormal CT scan of lung Smoker Expected: 02/22/2024, Expires: 02/21/[address] [facility] [employer] Work Phone: Comment on above: Expected: 02/22/2024, Expires: Start: 02-22-2024 End: 04-23-2025 DBT Breast - bilateral screening Bilateral screening mammogram with tomosynthesis Imaging Routine Breast cancer screening by mammogram Expected: 02/22/2024, Expires: 04/23/2025 [facility] Work Phone: Comment on above: Expected: 02/22/2024, Expires: Start: 02-22-2024 End: 02-22-2024 Patient encounter procedure 02/22/2024 1:00 PM EDT Office Visit [facility] [address] [place] [phone] Gasper Nelson DO [address] [place] [phone] [facility] Start: 02-14-2024 Screening for malignant neoplasm of colon [facility] Start: 02-05-2024 End: 02-05-2024 Patient encounter procedure 02/05/2024 9:00 AM EDT Office Visit [facility] [address] [place] [phone] Gasper Nelson, [address] [place] [phone] [facility] Start: 01-22-2024 End: 01-22-2024 Patient encounter procedure 01/22/2024 10:00 AM EDT Office Visit [facility] [address] [place] [phone] Gasper Nelson DO [address] [place] [phone] [facility] Start: 11-02-2023 Medicare Advantage Annual Wellness Visit (AWV) Medicare Advantage Annual Wellness Visit (AWV) [employer] Start: 10-03-2023 Depression Screening Depression Screening [facility] Start: 09-04-2023 Medicare Advantage Annual Wellness Visit Medicare Advantage Annual Wellness Visit [facility] Start: 08-01-2023 End: 08-01-2024 CT Chest for screening WO contrast CT lung screening low dose Imaging Routine Smoker Moderate smoker (20 or less per day) Expected: 08/01/2023, Expires: 08/01/2024 [employer] Work Phone: Comment on above: Expected: 08/01/2023, Expires: Start: 07-31-2023 End: 07-31-2024 Lipid 1996 panel - Serum or Plasma Lipid panel Lab Routine Hypercholesterolemia Expected: 07/31/2023 (Approximate), Expires: 07/31/2024 [employer] Work Phone: Comment on above: Expected: 07/31/2023 (Approximate), Expi res: 07/31/2024 Start: 07-14-2023 End: 07-14-[address] [facility] Start: 05-05-2023 COVID-19 Vaccine ( season) COVID-19 Vaccine ( season) [facility] Start: 05-05-2023 Influenza vaccination Influenza Vaccine (#1) [facility] Start: 04-03-2023 End: 04-03-2023 Patient encounter procedure 04/03/2023 1:15 PM EDT Appointment [facility] [address] [place] [address] Gasper Nelson, DO [address] [place] [address] [facility] [address] Start: 04-02-2023 Depression Monitoring Depression Monitoring [facility] Start: 01-23-2023 End: 01-23-2023 Patient encounter procedure 01/23/2023 Office Visit Family Medicine Kelsie Lisa APRN - [employer] [address] [place] [address] [facility] Start: 01-13-2023 End: 01-14-2024 CBC W Auto Differential panel - Blood CBC auto differential Lab Routine Smoker Expected: 01/13/2023 (Approximate), Expires: 01/14/[address] [facility] [employer] Work Phone: Comment on above: Expected: 01/13/2023 (Approximate), Expi res: 01/14/2024 Start: 01-13-2023 End: 01-14-2024 Comprehensive metabolic 1998 panel - Serum or Plasma Comprehensive metabolic panel Lab Routine Hypercholesterolemia Expected: 01/13/2023 (Approximate), Expires: 01/14/2024 [employer] Comment on above: Expected: 01/13/2023 (Approximate), Expi res: 01/14/2024 Start: 01-13-2023 End: 01-14-2024 CT Chest for screening WO contrast CT lung screening low dose Imaging Routine Smoker Expected: 01/13/2023, Expires: 01/14/2024 [facility]: Comment on above: Expected: 01/13/2023, Expires: Start: 01-13-2023 End: 01-14-2024 Lipid 1996 panel - Serum or Plasma Lipid panel Lab Routine Hypercholesterolemia Expected: 01/13/2023 (Approximate), Expires: 01/14/2024 [employer] Comment on above: Expected: 01/13/2023 (Approximate), Expi res: 01/14/2024 Start: 01-13-2023 End: 01-14-2024 Thyrotropin [Units/volume] in Serum or Plasma TSH Lab Routine Hypercholesterolemia Expected: 01/13/2023 (Approximate), Expires: 01/14/2024 [employer] Comment on above: Expected: 01/13/2023 (Approximate), Expi res: 01/14/2024 Start: 01-11-2023 Screening for malignant neoplasm of breast Mammogram [facility] Start: 01-05-2023 Annual Wellness Visit (AWV) Annual Wellness Visit (AWV) [facility] Start: 12-24-2022 Depression Monitoring Depression Monitoring [facility] Start: 10-18-2022 End: 10-18-2023 Alanine aminotransferase [Enzymatic activity/volume] in Serum or Plasma ALT Lab Routine Hypercholesterolemia Expected: 10/18/2022 (Approximate), Expires: 10/18/2023 [facility] Comment on above: Expected: 10/18/2022 (Approximate), Expi res: 10/18/2023 Start: 10-18-2022 End: 10-18-2023 Aspartate aminotransferase [Enzymatic activity/volume] in Serum or Plasma AST Lab Routine Hypercholesterolemia Expected: 10/18/2022 (Approximate), Expires: 10/18/2023 [facility] Comment on above: Expected: 10/18/2022 (Approximate), Expi res: 10/18/2023 Start: 10-18-2022 End: 10-18-2023 Lipid 1996 panel - Serum or Plasma Lipid panel Lab Routine Hypercholesterolemia Expected: 10/18/2022 (Approximate), Expires: 10/18/2023 [facility] Comment on above: Expected: 10/18/2022 (Approximate), Expi res: 10/18/2023 Start: 10-03-2022 End: 10-03-2023 XR Chest 2 Views XR chest 2 views Imaging Routine Cough, unspecified type Expected: 10/03/2022, Expires: 10/03/2023 [facility] Work Phone: Comment on above: Expected: 10/03/2022, Expires: Start: 06-04-2022 Lipid panel Lipids [facility] Start: 04-18-2022 End: 04-18-2022 Patient encounter procedure 04/18/2022 Office Visit Family Medicine Danish Davila, DO [address] [place] [id number] [facility] Start: 02-03-2022 Pneumococcal 65+ years Vaccine (2 - PCV) Pneumococcal 65+ years Vaccine (2 - PCV) [facility] Start: 02-03-2022 Pneumococcal Vaccine: 65+ Years (2 - PCV) Pneumococcal Vaccine: 65+ Years (2 - PCV) [facility] Start: 01-31-2022 [facility] Work Phone: Start: 2014 RSV Immunization aged 60 or older (1 - 1-dose 60+ series) RSV Immunization aged 60 or older (1 - 1-dose 60+ series) [facility] Start: 2014 RSV Immunization for Adults (1 - Risk 60-74 years 1-dose series) RSV Immunization for Adults (1 - Risk 60-74 years 1-dose series) [facility] Start: 2009 Screening for osteoporosis DEXA (modify frequency per FRAX score) [facility] Start: 2004 Screening for malignant neoplasm of breast Breast cancer screen [facility] Start: 2004 Shingles vaccine (1 of 2) Shingles vaccine (1 of 2) [facility] Start: 2004 Zoster Vaccines (1 of 2) Zoster Vaccines (1 of 2) [facility] Start: 1999 Screening for malignant neoplasm of colon [facility] Start: 1973 DTaP/Tdap/Td vaccine (1 - Tdap) DTaP/Tdap/Td vaccine (1 - Tdap) [facility] Start: 1973 DTaP/Tdap/Td Vaccines (1 - Tdap) DTaP/Tdap/Td Vaccines (1 - Tdap) [facility] Start: 1972 Hepatitis C screening [facility] Start: 1954 Hepatitis B Vaccines (1 of 3 - 3-dose series) Hepatitis B Vaccines (1 of 3 - 3-dose series) [facility] Start: 1955 Screening for malignant neoplasm of colon [facility] End: 12-18-2023 CT Chest for screening WO contrast [facility] Work Phone: Comment on above: Once for 1 Occurrences starting 12/18/19 until 12/18/2023 End: 07-29-2024 CT Chest for screening WO contrast [facility] Work Phone: Comment on above: Once for 1 Occurrences starting 07/29/20 until 07/29/2024 OUTSIDE PROCEDURE SCAN OUTSIDE P ROCEDURE SCAN Procedures Ordered: 12/15/2023 [facility] Comment on above: Ordered: 12/15/2023 Patient Education ED Pneumonia (Adult) [facility] Work Phone: Patient referral [facility] Work Phone: End: 01-11-2022 Screening digital breast tomosynthesis [facility] Work Phone: Comment on above: Once for 1 Occurrences starting 01/12/20 until 01/11/2022 Immunizations Immunization Date Immunization Notes Care Provider Emily vora 01-13-2023 Pneumococcal Conjuga te PCV20, Pf (Prevnar 20) Gasper Nelson DO Work Phone: [facility] 05-26-2022 Covid-19, Pfizer Bivalent Booster, (Age 12y+), Im, 30 Mcg/0e Gasper Nelson DO Work Phone: [facility] [employer] 05-26-2022 Influenza, High-dose Seasonal, Quadrivalent, Preservative Free Gasper Puneetarleen [employer] Work Phone: [facility] 05-26-2022 influenza virus vacc ine, unspecified formulation [facility] DO Work Phone: [facility] 12-11-2021 Covid-19, Pfizer Gra y Top, Do Not Dilute, (Age 12 Y+), Im, L Jolanta Six RN [facility] 06-28-2021 Pfizer SARS-CoV-2 Vaccination Jolanta Glover RN [facility] 06-04-2021 Influenza, High-dose , Quadv, 65 yrs +, IM (Fluzone) Danish Davila DO [facility] Work Phone: 02-03-2021 pneumococcal polysaccharide vaccine, 23 valent Danish Davila DO [facility] Work Phone: 10-14-2020 COVID-19, Pfizer Pur ple top, DILUTE for use, 12+ yrs, 30mcg/0.3mL dose Danish Davila DO Work [facility] Work Phone: 09-23-2020 COVID-19, Pfizer Pur ple top, DILUTE for use, 12+ yrs, 30mcg/0.3mL dose Danish Davila DO Work Phone: [facility] 09-25-2013 hepatitis B vaccine, pediatric or pediatric/adolescent dosage [facility] 05-05-2013 Influenza virus vaccine [facility] 05-05-2013 influenza, seasonal, injectable Gasper Nelson DO Work Phone: [facility] 09-04-2009 Pneumococcal Vaccine [facility] Work Phone: 09-04-2009 pneumococcal vaccine , unspecified formulation [facility] 07-14-2009 novel influenza-H1N1 -09, preservative-free, injectable Gasper Nelson DO Work Phone: [facility] 11-28-2008 hepatitis B vaccine, pediatric or pediatric/adolescent dosage Gasper Nelson DO Work Phone: [facility] 06-02-2008 hepatitis B vaccine, pediatric or pediatric/adolescent dosage Gapser Nelson DO Work Phone: [facility] 05-02-2008 hepatitis B vaccine, pediatric or pediatric/adolescent dosage Gasper Nelson DO Work Phone: [facility] Payers Date Payer Category Payer Self-pay [id number] 2019 Medicare [employer] MEDICARE ADVANTAGE [employer] MEDICARE [id number] 2019-Present [address] [address] [place] [address] Medicare HMO [id number] 2019 Medicare HMO [facility] MEDICARE [id number] 2019 Medicare [id number] Unknown [id number] Unknown [id number] 2 Unknown [id number] 2 Unknown [id number] 2 Unknown [id number] 2 Unknown [id number] 2 Unknown [id number] 2 Unknown [id number] 2 Unknown [id number] 2 Social History Date Type Detail Facility Start: 09-24-2019 End: 02-22-2024 Tobacco smoking status COIS Smokes tobacco daily [employer] Work Phone: Start: 09-24-2019 History of tobacco use Cigarette Smo ker [employer] Work Phone: Start: 03-24-2020 End: 11-12-2024 Cigarettes smoked current (pack per day) - Reported 1 [employer] Phone: Start: 03-24-2020 End: 02-22-2024 Tobacco use and exposure Smokeless tobacco non-user [employer] Phone: Start: 12-24-2021 End: 02-10-2025 Alcohol intake Ex-drinker (finding) [employer] Work Phone: Start: 05-06-2021 End: 01-04-2022 History SDOH Alcohol Frequency 1 [employer] Phone: Start: 03-24-2020 History SDOH [facility] Connections Phone [facility] Work Phone: Start: 03-24-2020 History SDOH Social Connections Religious 3 [facility] Work Phone: Start: 03-24-2020 History SDOH Social Connections Living 4 [facility] Work Phone: Start: 01-04-2022 History SDOH Physica l Activity DPW 0 [facility] Work Phone: Start: 1955 Sex Assigned At Female [facility] Start: 07-19-2015 End: 01-31-2022 Tobacco smoking status NHIS Unknown if ever smoked [facility] Start: 05-23-2014 None [facility] Start: 05-07-2021 Homeless [facility] Start: 05-07-2021 Non-smoker [facility] Start: 11-04-2022 End: 01-13-2023 Exposure to SARS-CoV-2 (event) Not sure [facility] Start: 01-13-2023 End: 11-12-2024 Tobacco use panel [facility] Start: 06-23-2022 Gender identity Identifies as female gender (finding) [facility] Start: 06-23-2022 Sexual orientation Heterosexual (fin ding) [facility] Start: 04-04-2022 Sex Female (finding) [facility] How often do you nee d to have someone help you when you read instructions, pamphlets, or other written material from your doctor or pharmacy [SILS] Never [facility] Has the [facility], or [employer] threatened to shut off services in your home in past 12Mo No [facility] Are you now , , , , never or living with a partner? [facility] How often to you hav e a drink containing alcohol? Never [facility] Do you feel stress - tense, restless, nervous, or anxious, or unable to sleep at night because your mind is troubled all the time - these days [OSQ] Not at all [facility] (I/We) worried wheth er (my/our) food would run out before (I/we) got money to buy more. Never true [facility] Goals Date Patient Goal Desired Activity /State Functional Status Date Assessment Result Facility 02-17-2025 Functional status Ambulates Demarcus Pickett [facility] Work Phone: Mental Status Date Assessment Result Facility 02-17-2025 Cognitive function Voice/Name Demarcus Crane [facility] Work Phone: Clinical Notes 10-03-2022 to 02-24-2025 Telephone Encounter - Juju Patton MA - 02/24/2025 11:05 AM EDTTelephone Encounter - Juju Patton MA - 02/24/2025 11:05 AM EDT Note Date & Type Note Facility 02-24-2025 Telephone encounter Note Form atting of this note is different from the original. Recent Visits Date Type Provider Dept 11/12/24 Office Visit Siomara Estrada PA-C [facility] Showing recent visits within past 365 days and meeting all other requirements Future Appointments Date Type Provider Dept 05/12/25 Appointment Gasper Nelson DO [facility] Showing future appointments within next [...] Most recent labs completed in chart? N/A [facility] 02-24-2025 Miscellaneous Notes Formattin g of this note is different from the original. Recent Visits Date Type Provider Dept 11/12/24 Office Visit Siomara Estrada PA-C [facility] Showing recent visits within past 365 days and meeting all other requirements Future Appointments Date Type Provider Dept 05/12/25 Appointment Gasper Nelson DO [facility] Showing future appointments within next 90 [...] in chart? N/A documented in this encounter [facility] 02-17-2025 Discharge summary [facility] 02-17-2025 Note [facility] Medical Records Department [address] [place] [address] Discharge Summary 02/17/25 1059 MR#: [id number] Acct: [id number] Name: ASHLEY GÓMEZ Rep #: [id number] : 1955 69 From: uBnny Avilez DO PCP: Dr. Danish Davila DO Status:DIS IN Location: [place] [address] Providers Date of Admission: 02/15/25 Date of [...] was seen in the emergency room at [facility] with complaints of shortness of breath for [...] no acute process. Patient was admitted to [place] [address] for exacerbation of COPD and treated with [...] = to 20 (more content not included)... [facility] 02-16-2025 Progress note Note Date/Time February 16, 2025 11:22am [facility] Medical Records Department [address] [place] [address] Progress Note - Hospitalist 02/16/25 1117 MR#: [id number] Acct: [id number] Name: ASHLEY GÓMEZ Rep #:[id number] : 1955 69 From: Bunny Avilez DO PCP: Dr. Danish Davila DO Status:ADM IN Location: [place] [address] Reason for Visit Reason for Visit: Diagnoses [...] 35 minutes Charges/Coding Visit Charges Inpatient E&M: 92138 Subs Hosp L2 02/16/25 1122 <Electronically signed by Bunny Avilez DO> Cosigner Signature (if applicable): CC: ~ Signed [facility] Work Phone: 1(365) 271-133106-15-2025 Progress note [facility] Medical Records Department [address] [place] [address] Progress Note - Hospitalist 02/16/25 1117 MR#: [id number] Acct: [id number] Name: ASHLEY GÓMEZ Rep #:[id number] : 1955 69 From: Bunny Avilez DO PCP: Dr. Danish Davila, DO Status:ADM IN Location: [place] [address]-1 Reason for Visit Reason for Visit: Diagnoses [...] 35 minutes Charges/Coding Visit Charges Inpatient E&M: 92872 Subs Hosp L2 02/16/25 1122 Cosigner Signature (if applicable): CC: ~ Signed [facility]06-14-2025 History and physical note Author Bunny [facility] Note Date/Time February 15, 2025 3:06 pm [facility] Medical Records Department [address] [place] [address] H&P Exam - Hospitalist 02/15/25 1459 MR#: [id number] Acct: [id number] Name: ASHLEY GÓMEZ Rep #:[id number] : 1955 69 From: Bunny Avilez DO PCP: Dr. Danish Davila, DO Status:ADM IN [place] [facility] [id number] HPI - General General Date of Admission: 02/15/25 Date of Service: 02/15/25 Chief Complaint: Shortness of breath HPI Narrative ASHLEY GÓMEZ, is a 69 F who presents to the emergency room at [facility] with complaints of shortness of breath over [...] acute infiltrates patient will be admitted to [facility] 3 for exacerbation of COPD with hypoxia, she will be given aerosol treatments IV Solu-Medrol, pulse ox will be monitored. [facility] Medical History Wears dentures Wears glasses Post-menopausal [...] (Auto) 77.0 H, Lymph % (Auto) 19.2, Wirt % (Auto) 1.9, Eos % (Auto) 0.7, [...] 09:25 IMPRESSION: No acute process Reading Location: [facility] Assessment & Plan Assessment/Plan (1) COPD exacerbation: PLAN: Plan 1. Exacerbation of COPD-patient will be admitted to [place] [address] and given aerosoltreatments and IV Solu-Medrol #2 [...] 55 minutes Charges/Coding Visit Charges Inpatient E&M: 96284 Init Hosp L2 02/15/25 1506 <Electronically signed by Bunny Aivlez DO> Cosigner Signature (if applicable): CC: Dr. Bunny Avilez, ; Dr. Danish Davila, ~ Signed [facility] Work Phone: 1(789) 467-265706-14-2025 History and physical note [facility] Medical Records Department [address] [place] [address] H&P Exam - Hospitalist 02/15/25 7382 MR#: [id number] Acct: [id number] Name: ASHLEY GÓMEZ Rep #:[id number] : 1955 69 From: Bunny Avilez DO PCP: Dr. Danish Fracasso, DO Status:ADM IN Location: MS3 [id number] HPI - General General Date of Admission: 02/15/25 Date of Service: 02/15/25 Chief Complaint: Shortness of breath HPI Narrative ASHLEY GÓMEZ, is a 69 F who presents to the emergency room at [facility] with complaints of shortness of breath over [...] acute infiltrates patient will be admitted to [place] [address] for exacerbation of COPD with hypoxia, she will be given aerosol treatments IV Solu-Medrol, pulse ox will be monitored. [facility] Medical History Wears dentures Wears glasses Post-menopausal [...] none current occupational status: employed current occupation: [employer] Smoking Status: Current every day smoker tobacco [...] (Auto) 77.0 H, Lymph % (Auto) 19.2, Wirt % (Auto) 1.9, Eos % (Auto) 0.7, [...] 09:25 IMPRESSION: No acute process Reading [facility] Assessment & Plan Assessment/Plan (1) COPD exacerbation: PLAN: Plan 1. Exacerbation of COPD-patient will be admitted to [place] [address] and given aerosoltreatments and IV Solu-Medrol #2 [...] 55 minutes Charges/Coding Visit Charges Inpatient E&M: 92009 Init Hosp L2 02/15/25 1506 Cosigner Signature (if applicable): CC: Dr. Bunny Avilez, ; Dr. Danish Davila, ~ Signed [facility]06-14-2025 Evaluation note* Diagnosis Onset Date Resolution Status Admit Date Hypokalemia acute February 15 11:21am Hypoxia acute February 15 11:21am Smoker acute February 15 11:21am COPD exacerbation chronic February 152024 11:21am [facility] Work Phone: 1(377) 861-335106-14-2025 Discharge summary Author Wilfred Bryan [facility] Note Date/Time February 15, 2025 11:1 1am [facility] Medical Records Department [address] [place] [address] Emergency Department Summary 02/15/25 MR#: [id number] Acct: [id number] Name: ASHLEY GÓMEZ Rep #:[id number] : 1955 69 From: Wilfred Bryan MD [...] day. Additionally, sometimes she smokes as well. [facility] Medical History Wears dentures Wears glasses Post-menopausal [...] none current occupational status: employed current occupation: [employer] Smoking Status: Current every day smoker tobacco [...] (Auto) 77.0 H Lymph % (Auto) 19.2 Wirt % (Auto) 1.9 Eos % (Auto) 0.7 [...] 09:25 IMPRESSION: No acute process Reading [facility] Management Discussion w/another healthcare provider: Hospitalist (Dr. [...] DO [Primary Care Provider] - Print Language: Turkish What to do if you have Problems For any increased pain, shortness of breath, bleeding, nausea or vomiting, chestpain, or any unexpected problems, contact your Primary Care Provider. Call [facility] ([phone]) or report to the closest Emergency Room. Call 911 if necessary. 02/15/25 1111 <Electronically signed by Wilfred Bryan MD> Cosigner Signature (if applicable): CC: Dr. Danish Davila, DO ~ Signed [facility] Work Phone: 1(667) 547-997106-14-2025 Discharge summary [facility] Medical Records Department [address] [place] [address] Emergency Department Summary 02/15/25 MR#: [id number] Acct: [id number] Name: ASHLEY GÓMEZ Rep #:[id number] : 1955 69 From: Wilfred Bryan MD [...] day. Additionally, sometimes she smokes as well. [facility] Medical History Wears dentures Wears glasses Post-menopausal [...] none current occupational status: employed current occupation: [employer] Smoking Status: Current every day smoker tobacco [...] (Auto) 77.0 H Lymph % (Auto) 19.2 Wirt % (Auto) 1.9 Eos % (Auto) 0.7 [...] 09:25 IMPRESSION: No acute process Reading Location: [facility] Management Discussion w/another healthcare provider: Hospitalist (Dr. [...] DO [Primary Care Provider] - Print Language: Turkish What to do if you have Problems For any increased pain, shortness of breath, bleeding, nausea or vomiting, chestpain, or any unexpected problems, contact your Primary Care Provider. Call [facility] ([phone]) or report tothe closest Emergency Room. Call 911 if necessary. 02/15/25 1111 Cosigner Signature (if applicable): CC: Dr. Danish Davila DO ~ Signed [facility]06-14-2025 Radiology Diagnostic study note [facility] Imaging Services [address] [place], [place] [address] Chest 1 View (Portable) MR#: [id number] Acct: [id number] Name: ASHLEY GÓMEZ Rep #: [id number] : 1955 F 69 From: Pet er Peer PCP: Dr. Danish Davila DO Status: REG ER Study:Chest 1 View (Portable) Date of Exam: 02/15/25 Exam# [id number] Ordering Dr: Wilfred Bryan MD PROCEDURE: CHEST 1 VIEW (PORTABLE) 02/15/2025 REASON FOR EXAM: SHORTNESS OF BREATH TECHNIQUE: Frontal view of the chest. FINDINGS: Hardware: None Heart: Normal size Lungs: Clear Bones: No aggressive Other: RAD/Chest 1 View (Portable) IMPRESSION: No acute process Reading Location: [facility] CC: Dr. Wilfred Bryan MD; Dr. Danish Davila DO ~ Rooming House Operator: Signed [facility]06-10-2025 Telephone encounter Note* Telephone Encounter - Mia Alvarez MA - 02/11/2025 9:02 AM EDT Patient advised and voiced understanding. [id number] Miscellaneous Notes* Telephone Encounter - Mia Alvarez [...] sent in. Please advise documented in this [facility]06-09-2025 Telephone encounter Note* Telephone Encounter - Mia Alvarez MA - 02/10/2025 5:42 PM EDT Called patient to relay provider message left voicemail to call office back. Mychart message sent to patient. Please relay message to patient. [facility] [id number] Miscellaneous Notes* Telephone Encounter - Mia Alvarez [...] sent in. Please advise documented in this [facility]06-09-2025 Note* Addendum Note - Juju Patton MA - 02/10/2025 3:52 PM EDTAddended by: JUJU PATTON on: 02/10/2025 03:52 PM Modules accepted: Orders [facility] [id number] Note* Addendum Note - Juju Patton MA - 02/10/2025 3:52 PM EDTAddended by: JUJU PATTON on: 02/10/2025 03:52 PM Modules accepted: Orders [facility] [id number] Note* Addendum Note - Juju Patton MA - 02/10/2025 3:52 PM EDTAddended by: JUJU PATTON on: 02/10/2025 03:52 PM Modules accepted: Orders [facility] [id number] Note* Addendum Note - Juju Patotn MA - 02/10/2025 3:52 PM EDTAddended by: JUJU PATTON on: 02/10/2025 03:52 PM Modules accepted: Orders [facility] [id number] Note* Addendum Note - Juju Patton MA - 02/10/2025 3:52 PM EDTAddended by: JUJU PATTON on: 02/10/2025 03:52 PM Modules accepted: Orders [facility] [id number] Telephone encounter Note* Telephone Encounter - Dory [...] a new script sent in. Please advise [facility] [id number] Telephone encounter Note* Telephone Encounter - Juju Patton MA - 02/10/2025 10:47 AM EDT Recent Visits Date Type Provider Dept 11/12/24 Office Visit Siomara Estrada PA-C [facility] 02/22/24 Office Visit Gasper Nelson DO [facility] Showing recent visits within past 365 [...] Most recent labs completed in chart? N/A [facility] [id number] Miscellaneous Notes* Telephone Encounter - Juju Patton MA - 02/10/2025 10:47 AM EDT Recent Visits Date Type Provider Dept 11/12/24 Office Visit Siomara Estrada PA-C [facility] 02/22/24 Office Visit Gasper Nelson DO [facility] Showing recent visits within past 365 [...] completed in chart? N/A documented in this [facility]04-11-2025 Telephone encounter Note* Telephone Encounter - Sara Munoz LPN - 12/13/2024 8:24 AM EDT Recent Visits Date Type Provider Dept 11/12/24 Office Visit Siomara Estrada PA-C [facility] 02/22/24 Office Visit Gasper Nelson DO [facility] Showing recent visits within past 365 days and meeting all other requirements Future Appointments No visits were found meeting these conditions. Showing future appointments within next 90 days and meeting all other requirements Requested Prescriptions Pending Prescriptions Disp Refills simvastatin (Zocor) 40 MG tablet 90 tablet 1 Sig: Take one tablet by mouth nightly. Provider: Gasper Nilesh Petrilla, DO Verified pharmacy: yes Verified day(s) supplied: [...] CHOLHDLCRATI 4.2 01/13/2023 NONHDLCHOLES 174 (H) 01/13/2023 [facility] [id number] Miscellaneous Notes* Telephone Encounter - Sara Munoz LPN - 12/13/2024 8:24 AM EDT Recent Visits Date Type Provider Dept 11/12/24 Office Visit Siomara Estrada PA-C [facility] 02/22/24 Office Visit Gasper Nelson DO [facility] Showing recent visits within past 365 [...] NONHDLCHOLES 174 (H) 01/13/2023 documented in this [facility]03-31-2025 NoteOutreach to patient to provide information on how to enroll in silver sneakers and she requested refill of Trazadone for sleep issues last filled in 06/28 for 90 days, last OV 11/12/24[facility]03-31-2025 Telephone encounter Note* Telephone Encounter - Brissa Warner RN - 12/02/2024 1:06 PM EDT Outreach to patient to provide information on how to enroll in silver sneakers and she requested refill of Trazadone for sleep issues last filled in 06/28 for 90 days, last OV 11/12/24 [facility] [id number] Miscellaneous Notes* Telephone Encounter - Brissa Warner RN - 12/02/2024 1:06 PM EDT Outreach to patient to provide information on how to enroll in silver sneakers and she requested refill of Trazadone for sleep issues last filled in 06/28 for 90 days, last OV 11/12/24 documented in this [facility] [facility]03-11[facility]25 Evaluation + Plan note* Assessment & Plan [...] as her levels have been adequately controlled [facility] HospitalIgeiqd47-83-4136 Miscellaneous Notes* Assessment & Plan Note - [...] strongly encouraged smoking cessation. documented in this encounterSKettering HealthHbdxuj78-97-2723 Evaluation + Plan note* Assessment & Plan Note - Siomara Estrada PA-C - 11/12/2024 9:12 AM EDTAssociated Problem(s): GERD (gastroesophageal reflux disease) - Chronic stable she will continue on esomeprazole 40 mg daily. [facility] HospitalZuhglo95-31-2100 Evaluation + Plan note* Assessment & Plan [...] wheezing and congestion strongly encouraged smoking cessation. [facility] HospitalAxjayv97-58-3881 History of Present illness Narrative* Siomara Estrada PA-C - 11/12/2024 8:40 AM EDT Images from the original note were not included. [facility] - [address] [facility] [address] Dept: [phone] Dept Chief Complaint: Ashley Gómez is an [...] this issue and continues to work at [employer]. Would like to get involved with [employer]. Health Habits/Nutrition: Health Habits / Nutrition On [...] current issues, And agreeable to look into [employer] Hearing/ Vision: Hearing / Vision Do you [...] to make appointment with his / her registration scheduling specialist Safety: Safety Do you have a [...] Housing Stability: Unknown (11/12/2024) documented in this [facility]03-11-2025 Instructions* Patient Instructions* Siomara Estrada PA-C - [...] Recommendations: A preventive eye exam by an registration scheduling specialist is recommended every 1-2 years to screen for glaucoma, cataracts, macular degeneration, and other eye disorders. A preventive dental visit is recommended every 6 months. Try to get at least 150 minutes of exercise per week or 10,000 steps per day on a pedometer. You need 1200-1500mg of calcium and 7447-4823 international units of vitamin D per day. [...] bicycle or a motorcycle documented in this [facility]02-27-2025 History of Present illness Narrative* Gasper Serrano Puneetsam, - 10/31/2024 12:00 PM EST Images from the original note were not included. [facility] - [address] [facility] [address] Dept: [phone] Dept Loc: [phone] Patient was identified and seen today via [...] stated that they are currently in the [facility]. If the patient is a minor, [...] DO 10/31/2024 12:20 PM documented in this [facility]02-27-2025 Telephone encounter Note* Telephone Encounter - Michell [...] not coughing Protocols used: Cough - Acute Ryn-Othyaajcgv-DKCEQ-AH [facility] HospitalJsotwp27-90-1817 Miscellaneous Notes* Telephone Encounter - Michell Chin [...] not coughing Protocols used: Cough - Acute Dxe-Laeruhotio-UWPBC-AH documented in this [facility]01-28-2025 Telephone encounter Note* Telephone Encounter - Neeta Villeda RN - 10/01/2024 1:57 PM EST Received signed receipt of certified letter sent to patient. Scanned to media in chart. [facility] HospitalBwquon80-99-1028 Miscellaneous Notes* Telephone Encounter - Neeta Villeda RN - 10/01/2024 1:57 PM EST Received signed receipt of certified letter sent to patient. Scanned to media in chart. * Telephone Encounter - Kianna Stevenson - 06/28/2024 8:47 AM EDT No auth needed. Faxed orders to [facility]-Scheduling for pt to be sched - [...] and assist patient with scheduling. She prefers [place] for imaging location and is available on [...] the recommended 3-month follow- up CT chest. [facility] scheduling and provider office have made multiple attempts to contact patient to assist with scheduling imaging. Navigator mailed patient lung screening follow-up reminder letter and lung nodule patient information. If patient does not call in to schedule imaging, navigator will plan to send certified letter. documented in this [facility]01-27-2025 Telephone encounter Note* Telephone Encounter - Mia Alvarez MA - 09/30/2024 11:56 AM EST Recent Visits Date Type Provider Dept 02/22/24 Office Visit Gasper Nelson DO [facility] Showing recent visits within past 365 days and meeting all other requirements Future Appointments Date Type Provider Dept 11/12/24 Appointment Gasper Nelson DO [facility] Showing future appointments within next [...] recent labs completed in chart? N/A None [facility] HospitalIwgzpn54-60-5160 Miscellaneous Notes* Telephone Encounter - Mia Alvarez MA - 09/30/2024 11:56 AM EST Recent Visits Date Type Provider Dept 02/22/24 Office Visit Gasper Nelson DO [facility] Showing recent visits within past 365 days and meeting all other requirements Future Appointments Date Type Provider Dept 11/12/24 Appointment Gasepr Nelson DO [facility] Showing future appointments within next [...] in chart? N/A None documented in this [facility]01-13-2025 Telephone encounter Note* Telephone Encounter - Sara Munoz LPN - 09/16/2024 2:12 PM EST Recent Visits Date Type Provider Dept 02/22/24 Office Visit Gasper Serrano DO [place] [facility] Showing recent visits within past 365 days and meeting all other requirements Future Appointments Date Type Provider Dept 09/30/24 Appointment Gasper NelsonDO [facility] Showing future appointments within next [...] CHOLHDLCRATI 4.2 01/13/2023 NONHDLCHOLES 174 (H) 01/13/2023 [facility] HospitalVpnmpm74-55-4592 Miscellaneous Notes* Telephone Encounter - Sara Munoz LPN - 09/16/2024 2:12 PM EST Recent Visits Date Type Provider Dept 02/22/24 Office Visit Gasper Maggie DO [place] [facility] Showing recent visits within past 365 days and meeting all other requirements Future Appointments Date Type Provider Dept 09/30/24 Appointment Gasper Maggie DO [place] [facility] Showing future appointments within next [...] NONHDLCHOLES 174 (H) 01/13/2023 documented in this [facility]11-20-2024 Telephone encounter Note* Telephone Encounter - Mia Alvarez MA - 07/24/2024 11:42 AM EST Recent Visits Date Type Provider Dept 02/22/24 Office Visit DO Pavan Bai [facility] 07/31/23 Office Visit DO Pavan Bai [facility] Showing recent visits within past 365 [...] CHOLHDLCRATI 4.2 01/13/2023 NONHDLCHOLES 174 (H) 01/13/2023 [facility] HospitalTbwaju22-80-7304 Miscellaneous Notes* Telephone Encounter - Mia Alvarez MA - 07/24/2024 11:42 AM EST Recent Visits Date Type Provider Dept 02/22/24 Office Visit Gasper Serrano [place], DO [facility] 07/31/23 Office Visit Gasper Serrano [place] DO [facility] Showing recent visits within past 365 days and meeting all other requirements Future Appointments Date Type Provider Dept 08/21/24 Appointment Gasper Nelson DO [facility] Showing future appointments within next [...] NONHDLCHOLES 174 (H) 01/13/2023 documented in this [facility]10-25-2024 Telephone encounter Note* Telephone Encounter - Helen Jennings - 06/28/2024 3:26 PM EDT Reason for call: Pari I am calling as the CT Lung [...] to get her scheduled. Thank you Contact [place] [id number] Miscellaneous Notes* Telephone Encounter - Helen Jennings [...] scheduled. Thank you Contact documented in this encounterSKettering HealthWhenez35-69-5479 Telephone encounter Note* Telephone Encounter - Kianna Stevenson - 06/28/2024 8:47 AM EDT No auth needed. Faxed orders to [facility]-Scheduling for pt to be sched - [facility] will sched/advise pt. My chart mess sent to patient with info to sched. [place] [id number] Miscellaneous Notes* Telephone Encounter - Kianna Stevenson [...] and assist patient with scheduling. She prefers [place] for imaging location and is available on [...] the recommended 3-month follow- up CT chest. [facility] central scheduling and provider office have made multiple attempts to contact patient to assist with scheduling imaging. Navigator mailed patient lung screening follow-up reminder letter and lung nodule patient information. If patient does not call in to schedule imaging, navigator will plan to send certified letter. documented in this [facility]10-24-2024 Telephone encounter Note* Telephone Encounter - Marycruz Mazariegos MA - 06/27/2024 4:27 PM EDT Vincent Perez, It looks like the patient navigator has done all that she can do. So it looks like all avenues havebeen exhausted to try and reach this patient to schedule. [facility] HospitalHxevuv87-00-7145 Miscellaneous Notes* Telephone Encounter - Marycruz Mazariegos [...] and assist patient with scheduling. She prefers [place] for imaging location and is available on [...] the recommended 3-month follow- up CT chest. [facility] central scheduling and provider office have made multiple attempts to contact patient to assist with scheduling imaging. Navigator mailed patient lung screening follow-up reminder letter and lung nodule patient information. If patient does not call in to schedule imaging, navigator will plan to send certified letter. documented in this encounterSKettering HealthGsqslf23-56-1851 Telephone encounter Note* Telephone Encounter - Kianna Stevenson - 06/27/2024 2:02 PM EDT To April to follow up [facility] HospitalKwgjij09-62-8226 Telephone encounter Note* Telephone Encounter - Joann Jane RCP - 06/27/2024 9:43 AM EDT Mrs. Gómez called in after receiving certified letter. She would like to return to complete the recommended lung screening 3 month follow-up imaging previously ordered by Dr. Nelson. Will send message to provider office to place new referral for imaging and assist patient with scheduling. She prefers [place] for imaging location and is available on Monday the if there are any appointments available. [facility] HospitalGumeyb46-07-8959 NotePatient still has not completed the recommended lung screening follow-up imaging. Navigator mailed certified letter, lung nodule education materials, and offered to assist with overcoming barriers to care.[facility]10-17-2024 Telephone encounter Note* Telephone Encounter - Joann Jane RCP - 06/20/2024 2:31 PM EDT Patient still has not completed the recommended lung screening follow-up imaging. Navigator mailed certified letter, lung nodule education materials, and offered to assist with overcoming barriers to care. [facility] HospitalSyyvpf77-22-2707 Miscellaneous Notes* Telephone Encounter - Joann Jane [...] the recommended 3-month follow- up CT chest. [facility] central scheduling and provider office have made multiple attempts to contact patient to assist with scheduling imaging. Navigator mailed patient lung screening follow-up reminder letter and lung nodule patient information. If patient does not call in to schedule imaging, navigator will plan to send certified letter. documented in this encounterSKettering HealthOvzpwi26-92-1064 Telephone encounter Note* Telephone Encounter - Sara Munoz LPN - 06/11/2024 5:05 PM EDT RX loaded Next ov 08/21/24 [place] [id number] Miscellaneous Notes* Telephone Encounter - Sara Munoz [...] up the medication: Yes documented in this [facility]10-08-2024 Telephone encounter Note* Telephone Encounter - Portia Espinosaalyson - 06/11/2024 4:15 PM EDT Medication name: [...] prior to picking up the medication: Yes [facility] HospitalGcqujw64-53-1053 [facility] Medical Records Department [address] [place] [address] History Physical Exam 04/29/24 0756 MR#: [id number] Acct: [id number] Name: ASHLEY GÓMEZ Rep #: [id number] : 1955 68 From: Slim Friend DO PCP: Dr. Danish Davila, DO Status:[facility] Location: [place] [address] HPI - General General Date of Admission: [...] Overall she is in fairly good health. [facility] Medical History (Updated 04/26/24 @ [...] none current occupational status: employed current occupation: [employer] Smoking Status: Former smoker Tobacco: How many [...] She will have an ASA of 3. 08/26/24 0758 Cosigner Signature (if applicable): CC: Dr. Danish Davila, DO; Slim Weiss DO [facility]WMorrow [facility]08-[facility]-2024 NoteMs. Gómez had a Lung RADS [address] scan on 12/18/2023. Her primary care provider placed a referral for the recommended 3-month follow-up CT chest. [facility] central scheduling and provider office have made multiple attempts to contact patient to assist with scheduling imaging. Navigator mailed patient lung screening follow-up reminder letter and lung nodule patient information. If patient does not call in to schedule imaging, navigator will plan to send certified letter.[facility]08-20-2024 Telephone encounter Note* Telephone Encounter - Joann Jane RCP - 04/23/2024 1:58 PM EDT Ms. Gómez had a Lung RADS [address] scan on 12/18/2023. Her primary care provider placed a referral for the recommended 3-month follow- up CT chest. [facility] central scheduling and provider office have made multiple attempts to contact patient to assist with scheduling imaging. Navigator mailed patient lung screening follow-up reminder letter and lung nodule patient information. If patient does not call in to schedule imaging, navigator will plan to send certified letter. [facility] HospitalGkqevj17-46-7753 Telephone encounter Note* Telephone Encounter - Marycruz Mazariegos MA - 04/17/2024 7:37 AM EDT Recent Visits Date Type Provider Dept 02/22/24 Office Visit Gasper Nelson DO [facility] 07/31/23 Office Visit Gasper Nelson DO [facility] Showing recent visits within past 365 [...] medications from any other provider? No None [facility] HospitalTfnzlc69-55-3760 Miscellaneous Notes* Telephone Encounter - Marycruz Mazariegos MA - 04/17/2024 7:37 AM EDT Recent Visits Date Type Provider Dept 02/22/24 Office Visit Gasper Maggie [place], DO [facility] 07/31/23 Office Visit Gasper Nelson DO [facility] Showing recent visits within past 365 [...] other provider? No None documented in this encounterSKettering HealthApnwew57-12-7743 Telephone encounter Note* Telephone Encounter - Farida Mary - 04/12/2024 7:31 AM EDT Orders cancelled [facility] HospitalOilqht88-99-6112 Miscellaneous Notes* Telephone Encounter - Farida Mary - 04/12/2024 7:31 AM EDT Orders cancelled * Telephone Encounter - Rosa Rodas - 04/11/2024 4:07 PM EDT We have been unable to reach your patient to schedule their testing. Test Name: CT lung screening follow up, PFT and Mammo 1st Attempt: 03/30/24 2nd Attempt: 04/11/24 Thanks, [facility] Central Scheduling documented in this [facility]08-08-2024 Telephone encounter Note* Telephone Encounter - Rosa Rodas - 04/11/2024 4:07 PM EDT We have been unable to reach your patient to schedule their testing. Test Name: CT lung screening follow up, PFT and Mammo 1st Attempt: 03/30/24 2nd Attempt: 04/11/24 Thanks, [facility] Central Scheduling [facility] HospitalWbasus63-02-9705 Miscellaneous Notes* Telephone Encounter - Rosa Rodas - 04/11/2024 4:07 PM EDT We have been unable to reach your patient to schedule their testing. Test Name: CT lung screening follow up, PFT and Mammo 1st Attempt: 03/30/24 2nd Attempt: 04/11/24 Thanks, [facility] Scheduling documented in this [facility]06-20-2024 Telephone encounter Note* Telephone Encounter - Kianna Stevenson - 02/22/2024 2:26 PM EDT Referral / orders pended for dx and doctor's signature [facility] HospitalSnzkpl81-64-6816 Miscellaneous Notes* Telephone Encounter - Kianna Stevenson - 02/22/2024 2:26 PM EDT Referral / orders pended for dx and doctor's signature documented in this encounterSKettering HealthOngaud26-46-7801 History of Present illness Narrative* Gasper Serrano Miguelarleen, - 02/22/2024 1:00 PM EDT Images from the original note were not included. [facility] [address] [address] [facility] [address] Visit type: Established Patient [...] capsule TAKE 1 CAPSULE EVERY MORNING BEFORE KIPFWIESH33 capsule 1 [DISCONTINUED] simvastatin (Zocor) 80 MG [...] changes, or axillary adenopathy documented in this encounterSKettering HealthQpnliw89-83-4201 Telephone encounter Note* Telephone Encounter - Fawn Hassan MA - 02/09/2024 9:30 AM EDT Pt scheduled with Dr Nelson 02/22/24 [facility] HospitalAjjozy22-13-8608 Miscellaneous Notes* Telephone Encounter - Fawn Hassan MA - 02/09/2024 9:30 AM EDT Pt scheduled with Dr Nelson 02/22/24 * Telephone Encounter - Fawn Hassan MA - 02/05/2024 11:02 AM EDT Left message for patient to return call to the office to get scheduled please schedule patient either February [address] Argentina harding * Telephone Encounter - Ramila Lee - 02/05/2024 9:02 AM EDT Name of caller: Isauro Contact phone number: [phone] Relationship to Patient: Patient Provider: Dr. Nelson Practice: [facility] Chief Complaint/Reason for Call: Pt Pt had to reschedule appointment. Please contact pt if appointment is not soon enough, pt is concerned FYI Best time of day caller can be reached: Any Patient advised that office/PCP has 24-48 business hours to return their call: No documented in this [facility]06-03-2024 Telephone encounter Note* Telephone Encounter - Fawn Hassan MA - 02/05/2024 11:02 AM EDT Left message for patient to return call to the office to get scheduled please schedule patient either February [address] Argentina dawson. [facility] HospitalFmkrgg19-82-5910 Miscellaneous Notes* Telephone Encounter - Fawn Hassan MA - 02/05/2024 11:02 AM EDT Left message for patient to return call to the office to get scheduled please schedule patient either February [address] Argentina dawson. * Telephone Encounter - Ramila Lee - 02/05/2024 9:02 AM EDT Name of caller: Isauro Contact phone number: [phone] Relationship to Patient: Patient Provider: Dr. Nelson Practice: [facility] Chief Complaint/Reason for Call: Pt Pt had to reschedule appointment. Please contact pt if appointment is not soon enough, pt is concerned FYI Best time of day caller can be reached: Any Patient advised that office/PCP has 24-48 business hours to return their call: No documented in this [place] [address]-03-2024 Telephone encounter Note* Telephone Encounter - Ramila Lee - 02/05/2024 9:02 AM EDT Name of caller: Isauro Contact phone number: [phone] Relationship to Patient: Patient Provider: Dr. Nelson Practice: [facility] Chief Complaint/Reason for Call: Pt Pt had to reschedule appointment. Please contact pt if appointment is not soon enough, pt is concerned FYI Best time of day caller can be reached: Any Patient advised that office/PCP has 24-48 business hours to return their call: No [facility] HospitalCaivzo98-16-3202 Telephone encounter Note* Telephone Encounter - Juju Patton MA - 01/02/2024 10:56 AM EDT Pharmacy updated. [facility] HospitalGotlxx59-39-7646 Miscellaneous Notes* Telephone Encounter - Juju Patton MA - 01/02/2024 10:56 AM EDT Pharmacy updated. * Telephone Encounter - Mary Zavaleta - 01/02/2024 10:46 AM EDT Name of caller: Isauro Contact phone number: [phone] Relationship to Patient: patient Provider: [place] Practice: [facility] Chief Complaint/Reason for Call: Pt called to report that her antibiotic and Prednisone were not sent to her local [facility] as requested - they were accidentally sent to [facility] pharmacy by mistake. Please send to [facility] on [address] in [place] listed in her chart instead. Please call once has been sent over. Best time of day caller can be reached: Any Patient advised that office/PCP has 24-48 business hours to return their call: No documented in this [place] [id number] Telephone encounter Note* Telephone Encounter - Mary Zavaleta - 01/02/2024 10:46 AM EDT Name of caller: Isauro Contact phone number: [phone] Relationship to Patient: patient Provider: [place] Practice: [facility] Chief Complaint/Reason for Call: Pt called to report that her antibiotic and Prednisone were not sent to her local [facility] as requested - they were accidentally sent to [facility] pharmacy by mistake. Please send to [facility] on [address] in [place] listed in her chart instead. Please call once has been sent over. Best time of day caller can be reached: Any Patient advised that office/PCP has 24-48 business hours to return their call: No [place] [id number] Telephone encounter Note* Telephone Encounter - Nelly Villa LPN - 12/22/2023 11:56 AM EDT LM - called to relay message to pt that she can schedule out into February [address]Pykrxg06-56-1367 Miscellaneous Notes* Telephone Encounter - Nelly Villa LPN - 12/22/2023 11:56 AM EDT LM - called to relay message to pt that she can schedule out into February * Telephone Encounter - Agnes Cedillo MA - 12/22/2023 11:20 AM EDT noted * Telephone Encounter - Nigel Caicedo - 12/22/2023 8:31 AM EDT Name of caller: Isauro Contact phone number: [phone] (work number) Relationship to Patient: patient Provider: [place] Practice: [facility] Chief Complaint/Reason for Call: Patient [...] number above, which is the number for [employer] where she works. Patient advised that office/PCP has 24-48 business hours to return their call: Yes documented in this [facility]04-19-2024 Telephone encounter Note* Telephone Encounter - Agnes Cedillo MA - 12/22/2023 11:20 AM EDT noted [place] [id number] Telephone encounter Note* Telephone Encounter - Niegl Caicedo - 12/22/2023 8:31 AM EDT Name of caller: Isauro Contact phone number: [phone] (work number) Relationship to Patient: patient Provider: [place] Practice: [facility] Chief Complaint/Reason for Call: Patient [...] number above, which is the number for [employer] where she works. Patient advised that office/PCP has 24-48 business hours to return their call: Yes [place] [id number] Telephone encounter Note* Telephone Encounter - Julian Dan RN - 12/21/2023 5:49 PM EDT duplicate [facility] HospitalQpjqot60-70-6668 Miscellaneous Notes* Telephone Encounter - Julian Dan RN - 12/21/2023 5:49 PM EDT duplicate documented in this encounterSKettering HealthOowcyf30-87-0540 Telephone encounter Note* Telephone Encounter - Heather [...] prior to picking up the medication: Yes [place] [id number] Miscellaneous Notes* Telephone Encounter - Heather Jean [...] up the medication: Yes documented in this [facility]04-15-2024 Telephone encounter Note* Telephone Encounter - Agnes Cedillo MA - 12/18/2023 10:22 AM EDT Recent Visits Date Type Provider Dept 07/31/23 Office Visit Gasper Nelson DO [facility] 01/13/23 Office Visit Gasper Nelson DO [facility] Showing recent visits within past 365 days and meeting all other requirements Future Appointments Date Type Provider Dept 02/05/24 Appointment DO Gillian Bai [facility] Showing future appointments within next 90 days [...] Most recent labs completed in chart? N/A [facility] [id number] Miscellaneous Notes* Telephone Encounter - Agnes Cedillo MA - 12/18/2023 10:22 AM EDT Recent Visits Date Type Provider Dept 07/31/23 Office Visit Gasper Nelson DO [facility] 01/13/23 Office Visit Gasper Nelson DO [facility] [place] [facility] Showing recent visits within past 365 days and meeting all other requirements Future Appointments Date Type Provider Dept 02/05/24 Appointment Gasper Nelson DO [facility] Showing future appointments within next [...] completed in chart? N/A documented in this [facility]11-28-2023 Telephone encounter Note* Telephone Encounter - Kianna Silvestree - 08/01/2023 8:22 AM EST Orders pended for doctor's signature [facility] [id number] Miscellaneous Notes* Telephone Encounter - Kianna Silvestree - 08/01/2023 8:22 AM EST Orders pended for doctor's signature * Telephone Encounter - Kianna Stevenson - 08/01/2023 8:15 AM EST ----- Message from Gasper Nelson DO sent at 07/31/2023 4:06 PM EST ----- Schedule LDCT for pt to be done in 11/2023 documented in this encounterSKettering [id number] Telephone encounter Note* Telephone Encounter - Kianna Silvestree - 08/01/2023 8:15 AM EST ----- Message from Gasper Nelson DO sent at 07/31/2023 4:06 PM EST ----- Schedule LDCT for pt to be done in 11/2023 [place] [id number] History of Present illness Narrative* Gasper Nelson DO - 07/31/2023 3:30 PM EST Images from the original note were not included. [facility] [address] [facility] [address] Visit type: Established Patient [...] work a fair number hours at the [employer] in [place] doing various jobs. Review of Systems denies [...] are pink without edema documented in this [facility]11-27-2023 History of Present illness Narrative* Gasper Nelson DO - 07/31/2023 3:30 PM EST Images from the original note were not included. [facility] [address] [place] [address] [address] [facility] [address] Visit type: Established Patient [...] work a fair number hours at the [employer] in [place] doing various jobs. Review of Systems denies [...] List Diagnosis COPD (chronic obstructive pulmonary disease) ([facility]) Osteopenia GERD (gastroesophageal reflux disease) Social History [...] are pink without edema documented in this [facility]11-27-2023 Miscellaneous Notes* Addendum Note - Rosalind Quintero - 07/31/2023 3:30 PM ESTAddended by: ROSALIND QUINTERO on: 12/18/2023 08:32 AM Modules accepted: Orders documented in this [facility]11-27-2023 Note* Addendum Note - Rosalind Quintero - 07/31/2023 3:30 PM ESTAddended by: ROSALIND QUINTERO on: 12/18/2023 08:32 AM Modules accepted: Orders [place] [id number] Telephone encounter Note* Telephone Encounter - Sara Munoz LPN - 03/14/2023 11:39 AM EDT Signed Handicap placard signed and mailed to patient per their request. [facility] HospitalHytcfb36-60-2233 Miscellaneous Notes* Telephone Encounter - Sara Munoz LPN - 03/14/2023 11:39 AM EDT Signed Handicap placard signed and mailed to patient per their request. * Telephone Encounter - Sara Munoz LPN - 03/14/2023 9:13 AM EDT Rx loaded * Telephone Encounter - Shaista Gramajo - 03/14/2023 9:07 AM EDT Name of caller: Isauro Contact phone number: [phone] Relationship to Patient: patient Provider: [place] Practice: [...] return their call: Yes documented in this encounterSKettering HealthWzvzfl43-20-2411 Telephone encounter Note* Telephone Encounter - Sara Munoz LPN - 03/14/2023 9:13 AM EDT Rx loaded [facility] [id number] Telephone encounter Note* Telephone Encounter - Shaista Gramajo - 03/14/2023 9:07 AM EDT Name of caller: Isauro Contact phone number: [phone] Relationship to Patient: patient Provider: [place] Practice: [...] business hours to return their call: Yes [facility] HospitalPdgfrt79-18-7016 Telephone encounter Note* Telephone Encounter - Kianna Stevenson - 03/02/2023 11:20 AM EDT Orders closed [facility] [id number] Miscellaneous Notes* Telephone Encounter - Kianna Stevenson [...] on order. Thank you documented in this encounterSKettering HealthFaytjx76-47-6210 Telephone encounter Note* Telephone Encounter - Sara [...] that is stated to get a CT. [facility] HospitalAngytv74-54-4267 Telephone encounter Note* Telephone Encounter - Sara Munoz LPN - 02/28/2023 4:16 PM EDT Placed call to patient to discuss provider questions of: Call the patient and specifically ask her how many cigarettes she smokes on the average per day andhow long she has been doing it. Message left on voicemail to return call. [facility] HospitalSttmgw23-95-5466 Miscellaneous Notes* Telephone Encounter - Sara Munoz [...] on order. Thank you documented in this encounterSKettering HealthMxcgww60-52-0157 Telephone encounter Note* Telephone Encounter - Kianna Stevenson - 02/28/2023 9:33 AM EDT Pt doesn't fit criteria for a CT-Lung screen. Pt needs to have a 20 year smoking history of 1-pack a day or 15 year history with 2-pack a day. Can orders be cancelled? [facility] HospitalVlgxgk05-89-1041 Telephone encounter Note* Telephone Encounter - Margarita Jones - 02/27/2023 1:33 PM EDT Patient called in and scheduled her CT Lung screening. The diagnosis code of F17.200 failed for Medical Necessity. Please correct diagnosis code on order. Thank you [facility] HospitalHoenkf12-11-7634 Miscellaneous Notes* Telephone Encounter - Margarita Robert - 02/27/2023 1:33 PM EDT Patient called in and scheduled her CT Lung screening. The diagnosis code of F17.200 failed for Medical Necessity. Please correct diagnosis code on order. Thank you documented in this [facility]05-12-2023 Telephone encounter Note* Telephone Encounter - Kianna Stevenson - 01/13/2023 10:29 AM EDT Orders pended for doctor's signature [facility] HospitalUfrsev18-59-5697 Miscellaneous Notes* Telephone Encounter - Kianna Stevenson - 01/13/2023 10:29 AM EDT Orders pended for doctor's signature documented in this [facility]05-12-2023 History of Present illness Narrative* Gasper Nelson DO - 01/13/2023 9:30 AM EDT Images from the original note were not included. [facility] [address] [place] [id number] Visit type: Established Patient Reason for Visit: [...] of hips and knees. documented in this [facility]03-13-2023 History of Present illness Narrative* Siomara Estrada PA-C - 11/14/2022 11:40 AM EDT Images from the original note were not included. [address] [address] Dept: [phone] Dept Loc: [phone] Visit type: Established Patient Reason for Visit: Cough (X Monday ) and Sore Throat Assessment and Plan 1. 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 documented in this [facility]03-13-2023 Telephone encounter Note* Telephone Encounter - Sade Esteban RN - 11/14/2022 9:51 AM EDT Triage message reviewed with clinical staff. Patient appointment confirmed. Siomara will assess at appointment visit. [facility] HospitalKeapwo62-11-8494 Miscellaneous Notes* Telephone Encounter - Sade Esteban [...] (e.g., travel history, exposures) no Protocols used: Evpod-RVCZB-IJ documented in this [facility]03-13-2023 Telephone encounter Note* Telephone Encounter - Jolanta [...] (e.g., travel history, exposures) no Protocols used: [id number] [facility] HospitalYcfzfa75-06-1569 Telephone encounter Note* Telephone Encounter - Sara Munoz LPN - 10/20/2022 4:35 PM EST X-ray faxed to [facility] per patient request. Also called patient and let her know it was faxed. [facility] HospitalAnrrtt35-82-0476 Miscellaneous Notes* Telephone Encounter - Sara Munoz LPN - 10/20/2022 4:35 PM EST X-ray faxed to [facility] per patient request. Also called patient and let her know it was faxed. * Telephone Encounter - Shereen Stevens - 10/20/2022 3:06 PM EST Name of caller: Isauro Contact phone number: [phone] Relationship to Patient: patient Provider: Practice: [facility] Chief Complaint/Reason for Call: Patient calling and states [facility] did not get her ordersfor the x-ray. Patient requesting it be re sent. Patient did not have a fax number. Best time of day caller can be reached: any Patient advised that office/PCP has 24-48 business hours to return their call: no documented in this encounterS83 Brown StreetMitcem79-68-3113 Telephone encounter Note* Telephone Encounter - Shereen Stevens - 10/20/2022 3:06 PM EST Name of caller: Isauro Contact phone number: [phone] Relationship to Patient: patient Provider: Practice: [facility] Chief Complaint/Reason for Call: Patient calling and states [facility] did not get her ordersfor the x-ray. Patient requesting it be re sent. Patient did not have a fax number. Best time of day caller can be reached: any Patient advised that office/PCP has 24-48 business hours to return their call: no [facility] HospitalNngmhz37-31-6965 Telephone encounter Note* Telephone Encounter - Danish Davila DO - 10/18/2022 5:29 PM EST I called this patient regarding her chest x-ray. She states she went to [facility] but they did not have the order. According to the record the order was faxed. Patient will call the hospital and see if now have the order. [facility] [id number] Miscellaneous Notes* Telephone Encounter - Danish Davila DO - 10/18/2022 5:29 PM EST I called this patient regarding her chest x-ray. She states she went to [facility] but they did not have the order. According to the record the order was faxed. Patient will call the hospital and see if now have the order. * Telephone Encounter - Sade Esteban RN - 10/17/2022 12:06 PM EST Faxed * Telephone Encounter - Justin Hoover - 10/17/2022 12:00 PM EST Name of caller: Shayy Contact phone number: [phone] Relationship to Patient: [facility] Provider: Dr. Davila Practice: [facility] Chief Complaint/Reason for Call: Shayy states the patient is currently at [facility] trying to complete her 10/03/22 XR Chest, [...] return their call: No documented in this encounterSKettering HealthGczgbt01-38-6107 Telephone encounter Note* Telephone Encounter - Sade Esteban RN - 10/17/2022 12:06 PM EST Faxed [facility] HospitalVvuhwf78-47-3993 Telephone encounter Note* Telephone Encounter - Justin Hoover - 10/17/2022 12:00 PM EST Name of caller: Shayy Contact phone number: [phone] Relationship to Patient: [facility] Provider: Dr. Davila Practice: [facility] Chief Complaint/Reason for Call: Shayy states the patient is currently at [facility] trying to complete her 10/03/22 XR Chest, 2 views; however, the patient's orders has not been received. Shayy states she would like the office to fax the patient's 10/03/22 XR Chest orders to her atfax number: [phone]. Please contact Shayy and cierae. Best time of day caller can be reached: Any Patient advised that office/PCP has 24-48 business hours to return their call: No [facility] HospitalUpwunz93-16-4795 Telephone encounter Note* Telephone Encounter - Danish [...] the emergency room. She is not interested. [facility] HospitalLfngqc46-41-4854 Miscellaneous Notes* Telephone Encounter - Danish Davila [...] She is not interested. documented in this [facility]01-30-2023 History of Present illness Narrative* Danish Davila DO - 10/03/2022 8:30 AM EST Images from the original note were not included. [facility] [address] [id number] Chief Complaint: Ashley Gómez is an 67 [...] correction 20/20 20/25 20/20 documented in this [facility] HospitalDischar summary Author iWlfred Bryan [facility] Note Date/Time February 15, 2025 11:1 1am [facility] Medical Records Department [address] [place] [address] Emergency Department Summary 02/15/25 MR#: [id number] Acct: [id number] Name: ASHLEY GÓMEZ Rep #:[id number] : 1955 69 From: Wilfred Bryan MD [...] day. Additionally, sometimes she smokes as well. [facility] Medical History Wears dentures Wears glasses Post-menopausal [...] none current occupational status: employed current occupation: [employer] Smoking Status: Current every day smoker tobacco [...] (Auto) 77.0 H Lymph % (Auto) 19.2 Wirt % (Auto) 1.9 Eos % (Auto) 0.7 [...] 09:25 IMPRESSION: No acute process Reading Location: [facility] Management Discussion w/another healthcare provider: Hospitalist (Dr. [...] DO [Primary Care Provider] - Print Language: Turkish What to do if you have Problems For any increased pain, shortness of breath, bleeding, nausea or vomiting, chestpain, or any unexpected problems, contact your Primary Care Provider. Call [facility] ([phone]) or report to the closest Emergency Room. Call 911 if necessary. 02/15/25 1111 <Electronically signed by Wilfred Bryan MD> Cosigner Signature (if applicable): CC: Dr. Danish Davila DO ~ Signed [facility] Work Phone: Discharge summary Author Bunny Avilez [facility] Note Date/Time February 17, 2025 10:5 9am [facility] Medical Records Department [address] [place] [address] Instructions for Home/Discharge Instructions 02/17/25 1052 MR#: [id number] Acct: [id number] Name: ASHLEY GÓMEZ Rep #:[id number] : 1955 69 From: Bunny Avilez DO [...] CC: Dr. Danish Davila DO ~ Signed [facility] Work Phone: Evaluation note* Diagnosis Menopause Symptomatic menopausal or female climacteric states documented in this encounter [facility] Work Phone: Evaluation noteNo assessment information available [facility] Work Phone: Evaluation note* Diagnosis Chronic obstructive pulmonary disease, unspecified COPD type (HCC)- Primary Hypercholesterolemia Pure hypercholesterolemia Gastroesophageal reflux disease without esophagitis Esophageal reflux Smoker Tobacco use disorder Depression, unspecified depression type [facility]* Diagnosis Smoker Tobacco use disorder [facility]* Diagnosis Chronic obstructive pulmonary disease, unspecified COPD type (HCC)- Primary [facility] this [facility]* Diagnosis Chronic obstructive pulmonary disease, unspecified COPD type (HCC)- Primary Depression, unspecified depression type Gastroesophageal reflux disease without esophagitis Esophageal reflux Hypercholesterolemia Pure hypercholesterolemia documented [facility] this [facility]* Diagnosis Moderate smoker (20 or less per day)- Primary Tobacco use disorder Smoker Tobacco use disorder documented [facility]* Diagnosis Chronic obstructive pulmonary disease, unspecified COPD type (HCC)- Primary Depression, unspecified depression type Gastroesophageal reflux disease without esophagitis Esophageal reflux Hypercholesterolemia Pure hypercholesterolemia documented in this encounter [facility]* Diagnosis Smoker Tobacco use disorder Moderate smoker (20 or less per day) Tobacco use disorder documented [facility] encounter [facility]* Diagnosis COPD with acute exacerbation (HCC) Lower resp. tract infection Other diseases of respiratory system, not elsewhere classified documented in this encounter [facility]* Diagnosis Chronic obstructive pulmonary disease, unspecified COPD type (HCC)- Primary Abnormal CT scan of lung Hypercholesterolemia Pure hypercholesterolemia Colon cancer screening Special screening for malignant neoplasms, colon Breast cancer screening by mammogram Depression, unspecified depression type Gastroesophageal reflux disease without esophagitis Esophageal reflux Ex-smoker for less than 1 year documented in this encounter [facility]* Diagnosis Abnormal CT scan of lung- Primary Colon cancer screening Special screening for malignant neoplasms, colon Smoker Tobacco use disorder Family history of colon cancer Family history of malignant neoplasm of gastrointestinal tract documented in this encounter [facility]* Diagnosis Abnormal CT scan of lung Smoker Tobacco use disorder documented in this encounter [facility]* Diagnosis Medicare annual wellness visit, subsequent- Primary Cough, unspecified type Chronic obstructive pulmonary disease, unspecified COPD type (HCC) Anxiety Anxiety state, unspecified Depression, unspecified depression type Hypercholesterolemia Pure hypercholesterolemia Mammogram declined Colonoscopy refused documented [facility] this encounter [facility]* Diagnosis COPD with acute exacerbation (CMS/HCC) (HCC)- Primary Lower resp. tract infection Other diseases of respiratory system, not elsewhere classified Smoking Tobacco use disorder documented in this encounter [facility]* Diagnosis Chronic obstructive pulmonary disease with acute exacerbation (HCC)- Primary Influenza Influenza with other respiratory manifestations documented in this encounter [facility]* Diagnosis Routine general medical examination at health care facility- Primary Routine general medical examination at a health care facility Encounter for screening mammogram for malignant neoplasm of breast Hypercholesterolemia Pure hypercholesterolemia Chronic obstructive pulmonary disease with acute exacerbation (HCC) Gastroesophageal reflux disease without esophagitis Esophageal reflux documented in this encounter [facility]* Diagnosis Routine general medical examination at health care facility- Primary Routine general medical examination at a health care facility Encounter for screening mammogram for malignant neoplasm of breast Hypercholesterolemia Pure hypercholesterolemia Chronic obstructive pulmonary disease with acute exacerbation (HCC) Gastroesophageal reflux disease without esophagitis Esophageal reflux Other insomnia documented [facility] this encounter [facility]* Diagnosis Routine general medical examination at health care facility- Primary Routine general medical examination at a health care facility Encounter for screening mammogram for malignant neoplasm of breast Hypercholesterolemia Pure hypercholesterolemia Chronic obstructive pulmonary disease with acute exacerbation (HCC) Gastroesophageal reflux disease without esophagitis Esophageal reflux Chronic obstructive pulmonary disease with acute exacerbation (HCC) [facility] this [facility] Diagnosis Routine general medical examination at health care facility- Primary Routine general medical examination at a health care facility Encounter for screening mammogram for malignant neoplasm of breast Hypercholesterolemia Pure hypercholesterolemia Chronic obstructive pulmonary disease with acute exacerbation (HCC) Gastroesophageal reflux disease without esophagitis Esophageal reflux Other insomnia documented [facility] this encounter [facility]* Diagnosis Routine general medical examination at health care facility- Primary Routine general medical examination at a health care facility Encounter for screening mammogram for malignant neoplasm of breast Hypercholesterolemia Pure hypercholesterolemia Chronic obstructive pulmonary disease with acute exacerbation (HCC) Gastroesophageal reflux disease without esophagitis Esophageal reflux Other insomnia documented in this encounter [facility]* Diagnosis Routine general medical examination at health care facility- Primary Routine general medical examination at a health care facility Encounter for screening mammogram for malignant neoplasm of breast Hypercholesterolemia Pure hypercholesterolemia Chronic obstructive pulmonary disease with acute exacerbation (HCC) Gastroesophageal reflux disease without esophagitis Esophageal reflux Chronic obstructive pulmonary disease with acute exacerbation (HCC) documented in this encounter [facility]* Diagnosis Routine general medical examination at health care facility- Primary Routine general medical examination at a health care facility Encounter for screening mammogram for malignant neoplasm of breast Hypercholesterolemia Pure hypercholesterolemia Chronic obstructive pulmonary disease with acute exacerbation (HCC) Gastroesophageal reflux disease without esophagitis Esophageal reflux Other insomnia documented [facility] this encounter [facility]* Diagnosis Onset Date Resolution Status Admit Date Hypokalemia acute February 15 11:21am Hypoxia acute February 15 11:21am Smoker acute February 15 11:21am COPD exacerbation chronic February 152024 11:21am [facility] Work Phone: Resinr for referral (narrative)No reason for referral information availableWMorrow County Hospital Work Phone: Revksu for visit Narrative* Imaging (Routine) - Closed Specialty Diagnoses / Procedures Referred By Contac t Referred To Contact Radiology Diagnoses Abnormal CT scan of lung Smoker Procedures CT lung screening follow up low dose Gasper Nelson, DO [address] [place] [address] Phone: tel: fax: Referral ID Status Reason Start Date Expiration Date Visits Re quested Visits Authorized [id number] Closed 02/22/2024 02/21/2025 [address] 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 No February 15, 2025 8:36am Advance Directives No May 10:10pm Advance Directive Response Recorded Date/ Time Do you have a Healthcare Power of Sock Examiner? No February 15, 2025 11:58am Advance Directives No May 10:10pm Reason for Referral Specialty Diagnoses / Procedures Referred By Contac t Referred To Contact Radiology Diagnoses Menopause Procedures DEXA Bone Density Axial Skeleton Danish Daivla, DO [address] [place] [address] Referral ID Status Reason Start Date Expiration Date Visits Re quested Visits Authorized [id number] Open 06/07/2021 06/07/2022 1 1 Specialty Diagnoses / Procedures Referred By Contac t Referred To Contact Radiology Diagnoses Smoker Procedures CT lung screening low dose Gasper Nelson, DO [address] [place] [address] Referral ID Status Reason Start Date Expiration Date V isits Requested Visits Authorized [id number] Pending Review 01/13/2023 07/12/2023 1 1 Specialty Diagnoses / Procedures Referred By Contac t Referred To Contact Radiology Diagnoses Smoker Moderate smoker (20 or less per day) Procedures CT lung screening low dose Gasper Nelson, DO [address] [place] [address] Referral ID Status Reason Start Date Expiration Date V isits Requested Visits Authorized [id number] Pending Review 08/01/2023 07/31/2024 1 1 Referral ID Status Reason Start Date Expiration Date Visits Re quested Visits Authorized [id number] Closed 08/01/2023 07/31/2024 1 1 Specialty Diagnoses / Procedures Referred By Contac t Referred To Contact Diagnoses Chronic obstructive pulmonary disease, unspecified COPD type (HCC) Procedures Complete PFT pre and post bronchodilator Gasper Nelson, DO [address] [place] [address] Referral ID Status Reason Start Date Expiration Date V isits Requested Visits Authorized [id number] Pending Review 02/22/2024 02/16/2025 1 1 Specialty Diagnoses / Procedures Referred By Contac t Referred To Contact Radiology Diagnoses Abnormal CT scan of lung Smoker Procedures CT lung screening follow up low dose Gasper Nelson, DO [address] [place] [address] Referral ID Status Reason Start Date Expiration Date V isits Requested Visits Authorized [id number] Pending Review 02/22/2024 02/21/2025 1 1 Specialty Diagnoses / Procedures Referred By Contac t Referred To Contact Gastroenterology Diagnoses Colon cancer screening Procedures [place] OFFICE/OUTPATIENT NEW HIGH MDM 60 MINUTES Gasper Nelson, DO [address] [place] [address] [employer], [address] [place] [address] Referral ID Status Reason Start Date Expiration Date Visits Requested Visits Authorized [id number] Pending Review Specialty Services Required 02/22/2024 02/21/2025 [...] section and content) DATE CREATED AUTHOR 10/12/2021 [facility] DATE CREATED AUTHOR AUTHOR'S ORGANIZ ATION 01/19/2022 [facility] DATE CREATED AUTHOR AUTHOR'S ORGANIZ ATION 02/25/2025 [facility] DATE CREATED AUTHOR AUTHOR'S ORGANIZ ATION 03/03/2025 [facility] Care Teams (unrecognized sec tion and [...] End: February 17, 2025 Dr. Bunny Avilez , Admit Provider Active S tart: February 15, 2025 End: February 17, 2025 Dr. Bunny Avilez DO Attending Provider Active Start: February 15, 2025 End: February 17, 2025 Team Status: Active Member Role Status Dates Dr. Danihs Davila DO Primary Care Provider Active Start: [...] DO Primary Care Provider Active Start: February 16, 2025 Wilfred Bryan MD Emergency Provider Active Star t: February 16, 2025 Dr. Bunny Avilez DO Admit Provider Active S tart: February 16, 2025 Dr. Bunny Avilez DO Attending Provider Active Start: February 16, 2025 Dr. Bunny Avilez DO Other Provider Active S tart: February 16, 2025 Truss Assembler Relationship Specialty Start Date End Date Danish Davila DO [address] [place] [address] PCP - General Family Medicine 03/24/20 Team Status: Active Member Role Status Dates Dr. Aaron Zepeda MD Family Provider Active Dr. Danish Davila DO Primary Care Provider Active Team Status: Inactive Member Role Status Dates Dr. Danish Davila DO Primary Care Provider, Attendin g Provider Active Truss Assembler Relationship Specialty Start Date End Date Danish Davila DO [address] [place] [address] PCP - General 03/24/20 Truss Assembler Relationship Specialty Start Date End Date Gasper Nelson Maggie, DO [address] [place] [address] PCP - General Family Medicine 01/13/23 Truss Assembler Relationship Specialty Start Date End Date Gasper Nelson, DO [address] [place] [address] PCP - General Family Medicine 01/13/23 Truss Assembler Relationship Specialty Start Date End Date Gasper Nelson DO [address] [place] [address] PCP - General Family Medicine 01/13/23 Truss Assembler Relationship Specialty Start Date End Date Gasper Nelson DO [address] [place] [address] PCP - General Family Medicine 01/13/23 Truss Assembler Relationship Specialty Start Date End Date Gasper Nelson DO [address] [place] [address] PCP - General Family Medicine 01/13/23 Truss Assembler Relationship Specialty Start Date End Date Gasper Nelson DO [address] [place] [address] PCP - General Family Medicine 01/13/23 Truss Assembler Relationship Specialty Start Date End Date Gasper Nelson DO [address] [place] [address] [address] [place] [phone] PCP - General Family Medicine 01/13/23 Truss Assembler Relationship Specialty Start Date End Date Gasper Nelson DO [address] [place] [address] PCP - General Family Medicine 01/13/23 Truss Assembler Relationship Specialty Start Date End Date Gasper Nelson Maggie, DO [address] [place] [phone] PCP - General Family Medicine 01/13/23 Truss Assembler Relationship Specialty Start Date End Date Gasper eNlson, DO [address] [place] [address] PCP - General Family Medicine 01/13/23 Truss Assembler Relationship Specialty Start Date End Date Gasper Nelson, DO [address] [place] [address] PCP - General Family Medicine 01/13/23 Truss Assembler Relationship Specialty Start Date End Date Gasper Nelson, DO [address] [place] [address] PCP - General Family Medicine 01/13/23 Truss Assembler Relationship Specialty Start Date End Date Gasper Nelson, DO [address] [place] [address] PCP - General Family Medicine 01/13/23 Truss Assembler Relationship Specialty Start Date End Date Gasper Nelson, DO [address] [place] [address] PCP - General Family Medicine 01/13/23 Truss Assembler Relationship Specialty Start Date End Date Gasper Nelson, DO [address] [place] [phone] PCP - General Family Medicine 01/13/23 Truss Assembler Relationship Specialty Start Date End Date ArgentinaGasper, [address] [place] [phone] PCP - General Family Medicine 01/13/23 Truss Assembler Relationship Specialty Start Date End Date [place] Gasper Serrano, DO [address] [place] [address] PCP - General Family Medicine 01/13/23 Truss Assembler Relationship Specialty Start Date End Date [place] Gasper Serrano, DO [address] [place] [phone] PCP - General Family Medicine 01/13/23 Truss Assembler Relationship Specialty Start Date End Date [place] Gasper Serrano, DO [address] [place] [phone] PCP - General Family Medicine 01/13/23 Truss Assembler Relationship Specialty Start Date End Date [place] Gasper Serrano, DO [address] [place] [address] PCP - General Family Medicine 01/13/23 Truss Assembler Relationship Specialty Start Date End Date [place] Gasper Serrano, DO [address] [place] [phone] PCP - General Family Medicine 01/13/23 Truss Assembler Relationship Specialty Start Date End Date Danish Davila, DO [address] [place] [address] PCP - General 03/24/20 Truss Assembler Relationship Specialty Start Date End Date Danish Davila DO [address], [place] [id number] PCP - General 03/24/20 Truss Assembler Relationship Specialty Start Date End Date Danish Davila DO [address], [place] [id number] PCP - General 03/24/20 Truss Assembler Relationship Specialty Start Date End Date Danish Davila DO [address], [place] [phone] PCP - General 03/24/20 Truss Assembler Relationship Specialty Start Date End Date Gasper Nelson, [address] [place] [address] PCP - General Family Medicine 01/13/23 Truss Assembler Relationship Specialty Start Date End Date Gasper Nelson, [address] [place] [phone] PCP - General Family Medicine 01/13/23 Truss Assembler Relationship Specialty Start Date End Date Gasper Nelson, [address] [place] [address] PCP - General Family Medicine 01/13/23 Truss Assembler Relationship Specialty Start Date End Date Gasper Nelson, [address] [place] [phone] PCP - General Family Medicine 01/13/23 Truss Assembler Relationship Specialty Start Date End Date Gasper Nelson, DO [address] [place] [address] PCP - General Family Medicine 01/13/23 Truss Assembler Relationship Specialty Start Date End Date [place] Gasper Serrano DO [address] [place] [address] PCP - General Family Medicine 01/13/23 Team [...] Comments Follow-up New to provider, 4 m [facility] med check Reason Onset Date Comments Orders 01/13/2023 LDCT Reason Onset Date Comments Scheduling 02/27/2023 Reason Onset Date Comments Handicap Placard 03/14/2023 Reason Comments Follow-up 6 month med check Reason Onset Date Comments Orders 08/01/2023 LDCT due in [facility] 2023 Reason Comments Med Refill Specialty Diagnoses / Procedures Referred By Contac t Referred To Contact Radiology Diagnoses Smoker Moderate smoker (20 or less per day) Procedures CT lung screening low dose [place] Gasper SerranoDO [address] [place] [address] Referral ID Status Reason Start Date Expiration Date Visits Re quested Visits Authorized [id number] Closed 08/01/2023 07/31/2024 1 1 Reason Onset Date Comments Error (VOID this visit) 12/21/2023 Reason Onset Date Comments Appointment 12/22/2023 [facility] Reason Onset Date Comments Med [...] BE BASED ON THE PRIMARY CLINICAL RECORDS. [employer] provides no warranty or guarantee of the accuracy or completeness of information in this document.
--- NOTE | 2025-03-03 04:02 | ECHOD_ITS ---
Reason For Study Reason For Study: CHEST PAIN Procedure This was a 2D Doppler, Color Flow transthoracic echocardiogram. Exam performed portable in patient room. Left Ventricle Normal left ventricle. The estimated ejection fraction is 60-65 %. Right Ventricle Normal RV size. Normal systolic function. Atria Normal left atrium. Normal right atrium. Mitral Valve There is mild mitral annular calcification. Posterior leaflet mitral valve prolapse. Tricuspid Valve Normal tricuspid valve. Aortic Valve Moderate diffuse aortic valve calcification. Pulmonic Valve The pulmonic valve is not well visualized. Great Vessels The aortic root is not well visualized. Pericardium/Pleural No pericardial effusion. MMode/2D Measurements & Calculations LVIDd: 4.2 cm IVSd: 0.98 cm LVOT diam: 2.0 cm LVIDs: 2.2 cm LVPWd: 0.81 cm LVOT area: 3.0 cm2 RVDd: 2.7 cm FS: 48.1 % asc Aorta Diam: 2.2 cm LAV(MOD-bp): 15.3 ml LVAd ap4: 15.5 cm2 LAV(MOD-bp) Indexed: 10.4 ml/m2 LVLd ap4: 5.8 cm LAV(MOD-sp2): 23.2 ml EDV(MOD-sp4): 34.6 ml LAV(MOD-sp4): 8.7 ml EDV(sp4-el): 35.6 ml LVAs ap4: 8.0 cm2 LVLs ap4: 4.6 cm ESV(MOD-sp4): 11.0 ml ESV(sp4-el): 11.8 ml EF(MOD-sp4): 68.1 % EF(sp4-el): 66.9 % LVAd ap2: 14.3 cm2 SV(MOD-sp4): 23.6 ml SV(MOD-sp2): 19.2 ml LVLd ap2: 6.0 cm SI(MOD-sp4): 16.0 ml/m2 SI(MOD-sp2): 13.0 ml/m2 EDV(MOD-sp2): 28.8 ml EDV(sp2-el): 29.1 ml LVAs ap2: 7.5 cm2 LVLs ap2: 5.1 cm ESV(MOD-sp2): 9.6 ml ESV(sp2-el): 9.3 ml EF(MOD-sp2): 66.7 % SV(sp4-el): 23.8 ml Ao sinus diam: 2.[address] Junction: 2.0 cm LA dimension(2D): 2.5 cm LA A4 area: 5.9 cm2 RA A4 area: 5.3 cm2 TAPSE: 1.5 cm Time Measurements MV dec time: 0.33 sec Doppler Measurements & Calculations MV E max jairon: 85.2 cm/sec Lat Peak E' Jairon: 9.9 cm/sec Med Peak E' Jairon: 8.8 cm/sec MV A max jairon: 101.9 cm/sec E/E' lat: 8.6 E/E' med: 9.7 MV E/A: 0.84 MV dec slope: 259.3 cm/sec2 Ao V2 max: 157.5 cm/sec LV V1 max: 107.8 cm/sec Ao max P.9 mmHg LV V1 max P.6 mmHg Ao V2 mean: 110.7 cm/sec LV V1 mean P.4 mmHg Ao mean P.4 mmHg LV V1 mean: 73.2 cm/sec Ao V2 VTI: 24.0 cm LV V1 VTI: 18.6 cm AV (velocity ratio): 0.77 TRAVON(I,D): 2.3 cm2 TRAVON(V,D): 2.0 cm2 SV(LVOT): 55.6 ml PA V2 max: 122.5 cm/sec TR max jairon: 278.6 cm/sec TR max P.1 mmHg ECHO/Echo Complete Interpretation Summary The estimated ejection fraction is 60-65 %. Overall normal LV systolic function Diffuse aortic valve sclerosis with no evidence of aortic stenosis. No previous echocardiogram to compare. Ordering Physician: Tonja Jo Performed By: Asiya Hammond RDCS
--- OUTSIDE RECORDS SUMMARY | 2025-03-03 04:26 | XMS RPT_ITS | CCD ---
Author Organization [facility] Care Team Providers Care International Trade Specialist Name Role Phone Danish Davila DO Primary Care Provider Gasper Nelson DO Primary Care Provider Gasper Nelson DO F Primary Care Provider [phone] Gasper Nelson DO Primary Care Provider Danish Davila DO Primary Care Provider Dr. Danish Davila DO Primary Care Provider Wilfred Bryan MD Emergency Provider Dr. Bunny Avilez DO Admit Provider Dr. [...] Primary Care Unavailable Danish Davila Referring Unavailable Dr. Abdulkadir Peralta DO Emergency Provider Dr. Gasper Nelson DO Primary Care Provider Sandro CHISHOLM, Dr. Tonja Mendez Admit Provider Sandro CHISHOLM, Dr. Tonja Mendez Attending Provider Allergies Allergy Classification Reported Allergen(s) Allergy Type Date of Onset Reaction(s) Facility Sulfonamides (antibiotic) (1 source) Sulfonamides (Antibiotic) Drug Allergy 3 Swelling [facility] (20 sources) Sulfonamides (Antibiotic) Propensity to adverse reactions to drug 3 Swelling [facility] (8 sources) Sulfonamides (Antibiotic); Translations: [Sulfa (Sulfonamide Antibiotics)] Allergy to substance 5 [facility] Medications Current Medications Medication Drug Class(es) Dates Sig (Normalized) Sig (Original) [id number] 200 actuat albuterol 0.09 mg/actuat metered dose inhaler (20 sources) beta2-Adrenergic Agonist Start: 03-03-2025 Albuterol Sulfate 90 mcg/actuation HFA aerosol inhaler Active INHALATION March 03, 2025 12:00am Start: 02-15-2025 Albuterol Sulf ate 90 mcg/actuation aerosol powdr breath activated Active [...] breath. 6.7 g 3 02/10/2025 02/10/2026 Active azithromycin 250 mg oral tablet (20 sources) Macrolide Antimicrobial Start: 02-10-2025 End: 02-15-2025 [...] 20 mg/ml oral suspension (15 sources) Uncompetitive U-dqcqmm-M-aspartat e Receptor Antagonist, Sigma-1 Agonist Start: 10-31-2024 [...] 2013 1:00am levoFLOXacin 500 mg oral tablet (9 sources) Quinolone Antimicrobial Start: 01-01-2024 End: 01-09-2024 take 1 tablet by mouth once daily levoFLOXacin (Levaquin) 500 MG tablet Take 1 tablet (500 mg) by mouth daily for 7 days. 7 tablet 0 01/02/2024 01/09/2024 Active Start: 01-31-2022 End: 04-26-2024 take 1 tablet by mouth once daily Levofloxacin 750 mg tablet Discontinued 750 mg PO DAILY 4 0 January 31, 2022 12:00am April 26, 2024 [...] Tablet Active 150 mg PO AT BEDTIME 15 0 February 17, 2025 12:00am Start: 03-20-2024 End: 02-15-2025 take 1 tablet by mouth every twenty-four hours at bedtime as needed for sleep Trazodone 150 mg tablet extended release 24 hr Discontinued 150 mg PO BEDTIME as needed for sleep March 20, 2024 12:00am February 15, 2025 9:24am Start: 02-22-2024 End: 02-10-2026 take 1 tablet by mouth at bedtime Trazodone 150 mg tab let Discontinued 150 mg PO AT BEDTIME February 15, 2025 12:00am February 17, 2025 10:53am Start: 2022 End: 02-22-2024 take 1 tablet [...] Norepinephrine Reuptake Inhibitor Start: 03-20-2024 End: 02-24-2025 take 1 capsule by mouth once daily Venlafaxine 150 mg capsule,extended release 24hr Active 150 mg PO DAILY March 20, 2024 12:00am Start: 07-25-2022 End: 09-30-2024 take 1 capsule [...] Drug Class(es) Dates Sig (Normalized) Sig (Original) alendronic acid 70 mg oral tablet (20 sources) Bisphosphonate Start: 07-25-2022 End: 02-15-2025 take 1 tablet by mouth every week Alendronate 70 mg tablet Discontinued 70 mg PO EVERY WEEK March 20, 2024 12:00am February 15, 2025 9:25am amoxicillin 500 mg oral capsule (3 sources) Penicillin-class Antibacterial Start: 10-31-2024 End: 11-12-2024 take 1 capsule by mouth three times daily amoxicillin (Amoxil) 500 MG capsule Take 1 capsule (500 mg) by mouth 3 times daily for 10 days. 30 capsule 10/31/2024 11/12/2024 Discontinued (Therapy completed) cyclobenzaprine hydrochloride 10 mg oral tablet (7 sources) Muscle Relaxant Start: 08-08-2013 End: 09-27-2013 take 1 tablet by mouth three times daily Cyclobenzaprine 10 MG tablet Discontinued 10 mg PO THREE TIMES A DAY 10 0 August 08, 2013 1:00am September 27, 2013 11:20pm Do not take when driving or working. Use before sleep. docusate sodium 100 mg oral capsule (7 sources) Start: 05-23-2014 End: 04-26-2024 take 1 capsule by mouth twice daily as needed for constipation Docusate Sodium (Colace) 100 MG capsule Discontinued 100 mg PO TWICE DAILY NEEDED as needed for Constipation 60 0 May 23, 2014 12:00am April 26, 2024 2:32pm ferrous sulfate 325 mg oral tablet (7 sources) Start: 10-04-2013 End: 04-26-2024 take 1 tablet by mouth twice daily at mealtime Ferrous Sulfate 325 MG tablet Discontinued 325 mg PO TWICE DAILY WITH MEALS 90 0 October 04, 2013 1:00am April 26, 2024 2:33pm 60 actuat fluticasone propionate 0.25 mg/actuat / salmeterol 0.05 mg/actuat dry powder inhaler (19 sources) Corticosteroid, beta2-Adrenergic Agonist Start: 07-31-2023 End: 02-22-2024 Fluticasone-Salmete rol (Wixela Inhub) 250-50 MCG/ACT aerosol powder Inhale 1 Inhalation in the morning and 1 Inhalation in the evening. 3 each 3 02/22/2024 02/22/2024 Discontinued (Entered in error) metoclopramide 10 mg oral tablet (7 sources) Dopamine-2 Receptor Antagonist Start: 10-07-2013 End: 10-19-2013 take 1 tablet by mouth four times daily at bedtime Metoclopramide Hcl 10 MG tablet Discontinued 10 mg PO 4 TIMES DAILY October 07, 2013 1:00am October 19, 2013 11:58am take one tablet before meals and at bedtime if needed to prevent nausea and vomiting metoprolol tartrate 25 mg oral tablet (7 sources) beta-Adrenergic Luigi Start: 10-04-2013 End: 10-19-2013 Metoprolol Tartrate 25 MG tablet Discontinued 12.5 mg PO TWICE A DAY October 04, 2013 1:00am October 19, 2013 11:57am Start: 10-04-2013 End: 10-19-2013 take 12.5 mg by mouth twice daily Metoprolol Tartrate Discontinued 12.5 MG PO TWICE A DAY October 04, 2013 12:00am October 19, 2013 10:57am naproxen 500 mg oral tablet (7 sources) Nonsteroidal Anti-inflammatory Drug Start: 08-08-2013 End: [...] 2:11pm oxyCODONE hydrochloride 5 mg oral tablet (14 sources) Opioid Agonist Start: 05-14-2014 End: 04-26-2024 [...] chloride 20 meq extended release oral tablet (7 sources) Start: 09-27-2013 End: 10-04-2013 Potassium Chloride (K-Dur) 20 MEQ tablet Discontinued 20 meq PO DAILY September 27, 2013 1:00am October 04, 2013 2:11pm potassium gluconate 2.5 meq oral tablet (7 sources) Start: 05-13-2014 End: 03-20-2024 take 1 tablet by mouth once daily Potassium (Otc) (Potassium Otc) 99 MG tablet Discontinued 99 mg PO DAILY May 13, 2014 12:00am March 20, 2024 9:18am promethazine hydrochloride 25 mg oral tablet (7 sources) Phenothiazine Start: 05-23-2014 End: 04-26-2024 take 1 tablet by mouth every four hours as needed Promethazine 25 MG tablet Discontinued 25 mg PO EVERY 4 HOURS NEEDED as needed for N/V if zofran not working May 23, 2014 12:00am April 26, 2024 2:33pm Problems Active Problems Problem Classification Problem Date Documented Da te Episodic/Chronic Acute myocardial infarction (2 sources) Myocardial infarction; Translations: [Non-ST elevation (NSTEMI) myocardial infarction] 03-03-2025 Chronic Anxiety disorders (2 sources) Anxiety; Translations: [Anxiety disorder, unspecified] Chronic Chronic obstructive pulmonary disease and bronchiectasis (20 sources) Chronic obstructive lung disease; Translations: [Chronic obstructive pulmonary disease, unspecified] Onset: 5 09-06-2021 Chronic Deficiency and other anemia (7 sources) Chronic anemia; Translations: [Anemia, unspecified] 07-19-2015 Episodic Disorders of lipid metabolism (20 sources) Hypercholesterolemia; Translations: [Pure hypercholesterolemia, unspecified] Onset: Chronic E Codes: Fall (7 sources) Fall; Translations: [Unspecified fall, initial encounter] 10-23-2013 Episodic Esophageal disorders (20 sources) Gastroesophageal reflux disease; Translations: [Gastro-esophageal reflux disease without esophagitis] Onset: 0 01-31-2022 Chronic Fluid and electrolyte disorders (13 sources) Hypokalemia; Translations: [Hypokalemia] 10-23-2013 Episodic Influenza (1 source) Influenza; Translations: [Influenza due to unidentified influenza virus with other respiratory manifestations] 10-31-2024 Episodic Mood disorders (14 sources) Depressive disorder; Translations: [Depression] 01-31-2022 Chronic Nausea and vomiting (9 sources) Nausea and vomiting; Translations: [Nausea with vomiting, unspecified] 07-19-2015 Episodic Other connective tissue disease (7 sources) Pain in lower limb; Translations: [Pain in leg, unspecified] 09-28-2013 Episodic Other gastrointestinal disorders (7 sources) Diarrhea; Translations: [Diarrhea, unspecified] 07-19-2015 Episodic Other lower respiratory disease (2 sources) Lower respiratory tract infection; Translations: [Unspecified acute lower respiratory infection] 12-22-2023 Episodic Other lower respiratory disease (7 sources) Imaging of lung abnormal ; Translations: [Other nonspecific abnormal finding of lung field] 02-22-2024 Episodic Other lower respiratory disease (6 sources) Hypoxia; Translations: [Hypoxemia] 02-15-2025 Episodic Other lower respiratory disease (2 sources) History of chronic obstructive airway disease; Translations: [Personal history of other diseases of the respiratory system] 03-03-2025 Episodic Other lower respiratory disease (2 sources) Hypoxemia; Translations: [Hypoxemia] 03-03-2025 Episodic Other screening for suspected conditions (not mental disorders or infectious disease) (14 sources) Patient encounter status; Translations: [Encounter for screening for malignant neoplasm of colon] Onset: 4 02-22-2024 Episodic Pathological fracture (7 sources) Pathological fracture of pelvis; Translations: [Pathological fracture, pelvis, initial encounter for fracture] 07-19-2015 Episodic Pneumonia (except that caused by tuberculosis or sexually transmitted disease) (6 sources) Pneumonia; Translations: [Pneumonia, unspecified organism] 02-08-2022 [...] digestive organs] 02-22-2024 Episodic Sprains and strains (7 sources) Low back strain; Translations: [Strain of muscle, fascia and tendon of lower back, initial encounter] 10-23-2013 Episodic Substance-related disorders (20 sources) Smoker; Translations: [Nicotine dependence, unspecified, uncomplicated] Onset: Chronic Superficial injury; contusion (7 sources) Contusion of hip; Translations: [Contusion of unspecified hip, initial encounter] 10-23-2013 Episodic Unclassified (2 sources) at next office visit Past or Other [...] finding of lung field] Onset: 07-29-2024 Episodic Residual codes; unclassified (2 sources) Mammogram declined; Translations: [Procedure and treatment not carried out because of patient's decision for unspecified reasons] Episodic Residual codes; unclassified (2 sources) Colonoscopy refused; Translations: [Procedure and treatment not carried out because of patient's decision for unspecified reasons] Episodic Results Test Name Value Interpretation Reference Range Facility Absolute lymphocyte countOrd ered By: Abdulkadir Kathryn on 03-03-2025 Lymphocytes Auto (Unsp spec) [#/Vol] 2.54 10*3/uL 0.83-4.51 [facility] Absolute neutrophil countOrd ered By: [facility] on 03-03-2025 Neutrophils (Bld) [#/Vol] 18.9 10*3/uL High 2.0-7.7 [facility] Anion gap in Serum or Plasma Ordered By: Abdulkadir Kathryn on 03-03-2025 Anion gap [Moles/Vol] 17 mmol/L High 5-15 [facility] Automated lymphocyte count a s percentage of total leukocytesOrdered By: [facility] Peralta on 03-03-2025 Lymphocytes/100 WBC Auto (Unsp spec) 11.1 % Low 19-41 [facility] BUN/creatinine ratioOrdered By: [facility] on 03-03-2025 Urea nitrogen/Creatinine [Mass ratio] 33.1 mg/mg High 10-20 [facility] Basophil percentageOrdered B y: Abdulkadir Kathryn on 03-03-2025 Basophils/100 WBC (Bld) 0.4 % 0-1 [facility] Bilirubin Test strip Ql (U)O rdered By: Abdulkadir Peralta on 03-03-2025 Bilirubin Ql (U) Negative Negative [facility] Bilirubin, totalOrdered By: [facility] Kathryn on 03-03-2025 Bilirubin [Mass/Vol] 0.78 mg/dL 0.00-1.30 [facility] CBC W/Diff, Automatedon 02-04 Absolute Lymph 2.54 X10 3/uL Normal 0.83-4.51 [facility] Comment on above: Performed By: #### L 500.4050, L300.8000, L100.0100, L501.2450, L503.6005 ####[facility] [address] [place], [place], [id number] Absolute Neut 18.9 X10 3/uL High 2.0-7.7 [facility] Comment on above: Performed By: #### L 500.4050, L300.8000, L100.0100, L501.2450, L503.6005 ####[facility] [address] [place], [address] Basophils/100 WBC (Bld) 0.4 % Normal 0-1 [facility] Comment on above: Performed By: #### L 500.4050, L300.8000, L100.0100, L501.2450, L503.6005 ####[facility] [address] [place], [address] Eosinophils/100 WBC (Bld) 0.3 % Normal 0-5 [facility] Comment on above: Performed By: #### L 500.4050, L300.8000, L100.0100, L501.2450, L503.6005 ####[facility] [address] [place], [address] Erythrocyte distribution width (RBC) [Ratio] 13.3 % Normal 11.6-14.6 [facility] Comment on above: Performed By: #### L 500.4050, L300.8000, L100.0100, L501.2450, L503.6005 ####[facility] [address] [place], [address] Hematocrit (Bld) [Volume fraction] 46.5 % Normal 37-47 [facility] Comment on above: Performed By: #### L 500.4050, L300.8000, L100.0100, L501.2450, L503.6005 ####[facility] [address] [place], [address] Hemoglobin (Bld) [Mass/Vol] 15.9 g/dL High 12.0-15.0 [facility] Comment on above: Performed By: #### L 500.4050, L300.8000, L100.0100, L501.2450, L503.6005 ####[facility] [address] [place], [address] IG% 0.400 Normal 0.0-0.9 [facility] Comment on above: Result Comment: IG% - Immature Granulocytes (promyelocytes, myelocytes and metamyelocytes) > 1% indicates that a LEFT SHIFT is Present. Performed By: #### L 500.4050, L300.8000, L100.0100, L501.2450, L503.6005 ####[facility] [address] [place], [address] Lymphocytes/100 WBC (Bld) 11.1 % Low 19-41 [facility] Comment on above: Performed By: #### L 500.4050, L300.8000, L100.0100, L501.2450, L503.6005 ####[facility] [address] [place], [address] MCH (RBC) [Entitic mass] 30.5 pg Normal 27.0-32.0 [facility] Comment on above: Performed By: #### L 500.4050, L300.8000, L100.0100, L501.2450, L503.6005 ####[facility] [address] [place], [address] MCHC (RBC) [Mass/Vol] 34.2 g/dL Normal 32-36 [facility] Comment on above: Performed By: #### L 500.4050, L300.8000, L100.0100, L501.2450, L503.6005 ####[facility] [address] [place], [address] MCV (RBC) [Entitic vol] 89.3 fL Normal 81-99 [facility] Comment on above: Performed By: #### L 500.4050, L300.8000, L100.0100, L501.2450, L503.6005 ####[facility] [address] [place], [address] Monocytes/100 WBC (Bld) 5.4 % Normal 0-10 [facility] Comment on above: Performed By: #### L 500.4050, L300.8000, L100.0100, L501.2450, L503.6005 ####[facility] [address] [place], [address] Neutrophils/100 WBC (Bld) 82.4 % High 47-70 [facility] Comment on above: Performed By: #### L 500.4050, L300.8000, L100.0100, L501.2450, L503.6005 ####[facility] [address] [place], [address] Nucleated RBC (Bld) [#/Vol] 0 10*3/uL Normal 0-5 [facility] Comment on above: Performed By: #### L 500.4050, L300.8000, L100.0100, L501.2450, L503.6005 ####[facility] [address] [place], [address] Platelet mean volume (Bld) [Entitic vol] 10.1 fL Normal 6.2-12.0 [facility] Comment on above: Performed By: #### L 500.4050, L300.8000, L100.0100, L501.2450, L503.6005 ####[facility] [address] [place], [address] Platelets (Bld) [#/Vol] 281 10*3/uL Normal 150-450 [facility] Comment on above: Performed By: #### L 500.4050, L300.8000, L100.0100, L501.2450, L503.6005 ####[facility] [address] [place], [address] RBC (Bld) [#/Vol] 5.21 10*6/uL Normal 4.2-5.4 [facility] Comment on above: Performed By: #### L 500.4050, L300.8000, L100.0100, L501.2450, L503.6005 ####[facility] [address] [place], [address] RDW SD 43.3 fl Normal 35.1-43.9 [facility] Comment on above: Performed By: #### L 500.4050, L300.8000, L100.0100, L501.2450, L503.6005 ####[facility] [address] [place], [address] WBC (Bld) [#/Vol] 22.9 10*3/uL High 4.4-11.0 [facility] Comment on above: Performed By: #### L 500.4050, L300.8000, L100.0100, L501.2450, L503.6005 ####[facility] [address] [place], [address] CT Chest, Abd, Pel w/Contras ton 03-03-2025 CT Chest, Abd, Pel w/Contrast [facility] [address] [place] [address] CT Chest, Abd, Pel w/Contrast MR#: [id number] Acct: [id number] Name: ASHLEY GÓMEZ Rep #: [id number] : 1955 F 69 From: Ruddy Booker MD PCP: Dr. Gasper Nelson, Status: [facility] ER Study: CT Chest, Abd, Pel w/Contrast Date of Exam: Exam# [id number] Ordering Dr: Abdulkadir Peralta DO PROCEDURE: CT [...] lung band atelectasis. Esophageal reflux. Reading Location: [place] [address] CC: Dr. Gasper Nelson ; Dr. Abdulkadir Peralta DO Proposal Director: Signed Normal [facility] Carbon dioxide, total [Moles /volume] in Central venous bloodOrdered By: Abdulkadir Peralta on 03-03-2025 CO2 [Moles/Vol] 24.4 mmol/L 21.0-32.0 [facility] Chloride assayOrdered By: Sol Peralta on 03-03-2025 Chloride [Moles/Vol] 97 mmol/L Low 98-108 [facility] Comprehensive Metabolic Prof ilon 03-03-2025 Albumin [Mass/Vol] 4.4 g/dL Normal 3.4-4.8 [facility] Comment on above: Performed By: #### L 500.4050, L300.8000, L100.0100, L501.2450, L503.6005 ####[facility] [address] [place], [address] Albumin/Globulin [Mass ratio] 1.6 {ratio} Normal 0.9-2.4 [facility] Comment on above: Performed By: #### L 500.4050, L300.8000, L100.0100, L501.2450, L503.6005 ####[facility] [address] [place], [address] ALK PHOS 78 U/L Normal 35-104 [facility] Comment on above: Performed By: #### L 500.4050, L300.8000, L100.0100, L501.2450, L503.6005 ####[facility] [address] [place], [address] ALT [Catalytic activity/Vol] 40 U/L High <=34 [facility] Comment on above: Performed By: #### L 500.4050, L300.8000, L100.0100, L501.2450, L503.6005 ####[facility] [address] [place], [address] AST [Catalytic activity/Vol] 40 U/L High <=31 [facility] Comment on above: Performed By: #### L 500.4050, L300.8000, L100.0100, L501.2450, L503.6005 ####[facility] [address] [place], [address] Bilirubin [Mass/Vol] 0.78 mg/dL Normal 0.00-1.30 [facility] Comment on above: Performed By: #### L 500.4050, L300.8000, L100.0100, L501.2450, L503.6005 ####[facility] [address] [place], [address] BUN/CRE 33.1 RATIO High 10-20 [facility] Comment on above: Performed By: #### L 500.4050, L300.8000, L100.0100, L501.2450, L503.6005 ####[facility] [address] [place], [address] Calcium [Mass/Vol] 10.5 mg/dL Normal 7.6-11.0 [facility] Comment on above: Performed By: #### L 500.4050, L300.8000, L100.0100, L501.2450, L503.6005 ####[facility] [address] [place], [address] Chloride [Moles/Vol] 97 mmol/L Low 98-108 [facility] Comment on above: Performed By: #### L 500.4050, L300.8000, L100.0100, L501.2450, L503.6005 ####[facility] [address] [place], [address] CO2 [Moles/Vol] 24.4 mmol/L Normal 21.0-32.0 [facility] Comment on above: Performed By: #### L 500.4050, L300.8000, L100.0100, L501.2450, L503.6005 ####[facility] [address] [place], [address] Creatinine [Mass/Vol] 1.09 mg/dL Normal 0.70-1.20 [facility] Comment on above: Performed By: #### L 500.4050, L300.8000, L100.0100, L501.2450, L503.6005 ####[facility] [address] [place], [address] ECRCL 37.91 ml/min Low 50-250 [facility] Comment on above: Performed By: #### L 500.4050, L300.8000, L100.0100, L501.2450, L503.6005 ####[facility] [address] [place], [address] GAP 17 High 5-15 [facility] Comment on above: Performed By: #### L 500.4050, L300.8000, L100.0100, L501.2450, L503.6005 ####[facility] [address] [place], [address] GFR/1.73 sq M.predicted among non-blacks MDRD (S/P/Bld) [Vol rate/Area] 55 mL/min/{1.73_m2} Low >60 [facility] Comment on above: Result Comment: mL/m in/1.73m2 CKD-EPI Creatinine Equation (2020) Performed By: #### L 500.4050, L300.8000, L100.0100, L501.2450, L503.6005 ####[facility] [address] [place], [address] Globulin (S) [Mass/Vol] 2.7 g/dL Normal 2.2-4.2 [facility] Comment on above: Performed By: #### L 500.4050, L300.8000, L100.0100, L501.2450, L503.6005 ####[facility] [address] [place], [address] Glucose [Mass/Vol] 154 mg/dL High 70-99 [facility] Comment on above: Performed By: #### L 500.4050, L300.8000, L100.0100, L501.2450, L503.6005 ####[facility] [address] [place], [address] Potassium [Moles/Vol] 3.4 mmol/L Normal 3.3-5.1 [facility] Comment on above: Performed By: #### L 500.4050, L300.8000, L100.0100, L501.2450, L503.6005 ####[facility] [address] [place], [address] Sodium [Moles/Vol] 138 mmol/L Normal 133-145 [facility] Comment on above: Performed By: #### L 500.4050, L300.8000, L100.0100, L501.2450, L503.6005 ####[facility] [address] [place], [address] T PROT 7.0 g/dL Normal 5.9-8.4 [facility] Comment on above: Performed By: #### L 500.4050, L300.8000, L100.0100, L501.2450, L503.6005 ####[facility] [address] [place], [address] Urea nitrogen [Mass/Vol] 36 mg/dL High 4-19 [facility] Comment on above: Performed By: #### L 500.4050, L300.8000, L100.0100, L501.2450, L503.6005 ####[facility] [address] [place], [address] D-Dimer Quantitative (DVT/PE )on 03-03-2025 D-DIMER QUANT 0.53 FEU/ug/m Invalid Interpretation Code 0.27-0.49 [facility] Comment on above: Result Comment: D-Di nikki ELEVATED (>0.49): Additional studies and clinical assessments are indicated to conclude diagnosis of: Deep Vein Thrombosis (DVT) or Pulmonary Embolism (PE) CRITICAL VALUE CALLED TO RBARTOLONE 03/03/25 0126 Jalen Jonas. RESULTS READ BACK BY SAME. Performed By: #### L 500.4050, L300.8000, L100.0100, L501.2450, L503.6005 #### [facility] [address] [place], [address] Eosinophil percentageOrdered By: Abdulkadir Peralta on 03-03-2025 Eosinophils/100 WBC (Bld) 0.3 % 0-5 [facility] Erythrocyte distribution wid th ratioOrdered By: Abdulkadir Peralta on 03-03-2025 Erythrocyte distribution width (RBC) [Ratio] 13.3 % 11.6-14.6 [facility] Erythrocyte distribution wid th standard deviationOrdered By: Abdulkadir Peralta on 03-03-2025 Erythrocyte distribution width (RBC) [Ratio] 43.3 fl 35.1-43.9 [facility] Glomerular filtration rate ( GFR) estimation/1.73 sq m using serum, plasma, or whole bOrdered By: Abdulkadir Peralta on 03-03-2025 GFR/1.73 sq M.predicted among non-blacks MDRD (S/P/Bld) [Vol rate/Area] 55 mL/min/{1.73_m2} Low >60 [facility] Comment on above: mL/min/1.73m2 CKD-EP I Creatinine Equation (2020) Hematocrit Auto (Bld) [Volum e fraction]Ordered By: Abdulkadir Peralta on 03-03-2025 Hematocrit (Bld) [Volume fraction] 46.5 % 37-47 [facility] Hemoglobin measurementOrdere d By: Abdulkadir Peralta on 03-03-2025 Hemoglobin (Bld) [Mass/Vol] 15.9 g/dL High 12.0-15.0 [facility] Hyaline casts LM.LPF (Urine sed) [#/Area]Ordered By: Abdulkadir Peralta on 03-03-2025 Hyaline casts (Urine sed) [#/Area] 0 /[LPF] 0-5 [facility] Immature granulocytes/100 WB C Auto (Bld)Ordered By: Abdulkadir Peralta on 03-03-2025 Immature granulocytes/100 WBC (Bld) 0.400 % 0.0-0.9 [facility] Comment on above: IG% - Immature Granu locytes (promyelocytes, myelocytes and metamyelocytes) > 1% indicates that a LEFT SHIFT is Present. Ketones Test strip Ql (U)Ord ered By: Abdulkadir Peralta on 03-03-2025 Ketones Ql (U) 50 mg/dl High Negative [facility] L501.4021on 03-03-2025 Trop T High Sen 91 ng/L Invalid Interpretation Code <=14 [facility] Comment on above: Result Comment: Crit ical Result(s) Called at: 03/03/2025-02:22 by: Siomara Saenz.??Results read back by same. Performed By: #### L 501.4021 ####[facility] [address] [place], [address] Laboratory - Chemistry and C hemistry - challengeOrdered By: Abdulkadir Peralta on 03-03-2025 AST [Catalytic activity/Vol] 40 U/L High <32 [facility] Lactic Acidon 03-03-2025 Lactate [Moles/Vol] 2.4 mmol/L Invalid Interpretation Code 0.0-2.0 [facility] Comment on above: Order Comment: Y Result Comment: Crit ical Result(s) Called at: 03/03/2025-02:08 by: Siomara Chiu.??Results read back by same. Performed By: #### L 500.4050, L300.8000, L100.0100, L501.2450, L503.6005 ####[facility] [address] [place], [address] Lactic acid measurementOrder ed By: Abdulkadir Peralta on 03-03-2025 Lactate [Moles/Vol] 2.4 mmol/L High 0.0-2.0 [facility] Comment on above: Critical Result(s) C alled at: 03/03/2025-02:08 by: Siomara Chiu. Results read back by same. Lipaseon 03-03-2025 Lipase [Catalytic activity/Vol] 18 U/L Normal 13-75 [facility] Comment on above: Result Comment: Brandon strong note: LIPASE revised reference range effective 22. New Lipase methodology. Expected to produce lower values than the previous assay method. NEW Reference Range: 13 - 75 U/L Performed By: #### L 500.4050, L300.8000, L100.0100, L501.2450, L503.6005 ####[facility] [address] [place], [address] Lipase measurementOrdered By : Abdulkadir Peralta on 03-03-2025 Lipase [Catalytic activity/Vol] 18 U/L 13-75 [facility] Comment on above: Please note:LIPASE r evised reference range effective 22. New Lipase methodology. Expected to produce lower values than the previous assay method. NEW Reference Range: 13 - 75 U/L MCV (mean corpuscular volume ) determinationOrdered By: Abdulkadir Peralta on 03-03-2025 MCV (RBC) [Entitic vol] 89.3 fL 81-99 [facility] Mean corpuscular hemoglobin (MCH) determinationOrdered By: Abdulkadir Peralta on 03-03-2025 MCH (RBC) [Entitic mass] 30.5 pg 27.0-32.0 [facility] Mean corpuscular hemoglobin concentration (MCHC) determinationOrdered By: Abdulkadir Peralta on 03-03-2025 MCHC (RBC) [Mass/Vol] 34.2 g/dL 32-36 [facility] Mean platelet volume determi nationOrdered By: Abdulkadir Peralta on 03-03-2025 Platelet mean volume (Bld) [Entitic vol] 10.1 fL 6.2-12.0 [facility] Microscopic analysis of urin e for red blood cells (RBC)Ordered By: Abdulkadir Peralta on 03-03-2025 Microscopic analysis of urine for red blood cells (RBC) 5-10 SEEN /hpf 0-5 [facility] Monocyte percentageOrdered B y: Abdulkadir Peralta on 03-03-2025 Monocytes/100 WBC (Bld) 5.4 % 0-10 [facility] Mucus LM Ql (Urine sed)Order ed By: Abdulkadir Peralta on 03-03-2025 Mucus Ql (Urine sed) 0 SEEN /hpf [facility] Neutrophil percentageOrdered By: Abdulkadir Peralta on 03-03-2025 Neutrophils/100 WBC (Bld) 82.4 % High 47-70 [facility] Nitrite Test strip Ql (U)Ord ered By: Abdulkadir Peralta on 03-03-2025 Nitrite Ql (U) Negative Negative [facility] Nucleated red blood cell per centageOrdered By: Abdulkadir Peralta on 03-03-2025 Nucleated RBC/100 WBC (Bld) [Ratio] 0 % 0-5 [facility] Platelet countOrdered By: Sol lenadro Kathryn on 03-03-2025 Platelets (Bld) [#/Vol] 281 10*3/uL 150-450 [facility] Potassium measurement (mass/ volume)Ordered By: Abdulkadir Peralta on 03-03-2025 Potassium (Unsp spec) [Mass/Vol] 3.4 mmol/L 3.3-5.1 [facility] Protein Test strip Ql (U)Ord ered By: Abdulkadir Peralta on 03-03-2025 Protein Ql (U) 15 mg/dl High Negative [facility] RBC Auto (Bld) [#/Vol]Ordere d By: Abdulkadir Peralta on 03-03-2025 RBC (Bld) [#/Vol] 5.21 10*6/uL 4.2-5.4 [facility] Serum creatinine measurement (mass/volume)Ordered By: Abdulkadir Peralta on 03-03-2025 Creatinine [Mass/Vol] 1.09 mg/dL 0.70-1.20 [facility] Serum globulin measurementOr dered By: Abdulkadir Peralta on 03-03-2025 Globulin (S) [Mass/Vol] 2.7 g/dL 2.2-4.2 [facility] Serum glucose measurement (m ass/volume)Ordered By: Abdulkadir Peralta on 03-03-2025 Glucose [Mass/Vol] 154 mg/dL High 70-99 [facility] Serum or plasma alanine marin otransferase (ALT) measurementOrdered By: Abdulkadir Peralta on 03-03-2025 ALT [Catalytic activity/Vol] 40 U/L High <35 [facility] Serum or plasma albumin janneth urement (mass/volume)Ordered By: Abdulkadir Peralta on 03-03-2025 Albumin [Mass/Vol] 4.4 g/dL 3.4-4.8 [facility] Serum or plasma albumin/glob ulin mass ratioOrdered By: Abdulkadir Peralta on 03-03-2025 Albumin/Globulin [Mass ratio] 1.6 {ratio} 0.9-2.4 [facility] Serum or plasma alkaline robert sphatase measurementOrdered By: Abdulkadir Peralta on 06-30-2025 ALP [Catalytic activity/Vol] 78 U/L 35-104 [facility] Serum or plasma calcium janneth urement (mass/volume)Ordered By: Remus Ungrachel on 03-03-2025 Calcium [Mass/Vol] 10.5 mg/dL 7.6-11.0 [facility] Serum or plasma urea nitroge n measurement (mass/volume)Ordered By: Remus Ungur on 03-03-2025 Urea nitrogen [Mass/Vol] 36 mg/dL High 4-19 [facility] Sodium levelOrdered By: Remu s Ungur on 03-03-2025 Sodium [Moles/Vol] 138 mmol/L 133-145 [facility] Squamous epithelial cells de tection in urine sediment by light microscopyOrdered By: Remus Ungrachel on 03-03-2025 Epithelial cells.squamous LM Ql (Urine sed) 0-5 SEEN /hpf 5-10 [facility] Total proteinOrdered By: Rem us Ungur on 03-03-2025 Protein [Mass/Vol] 7.0 g/dL 5.9-8.4 [facility] Troponin T.cardiac [Mass/vol ume] in Serum or Plasma by High sensitivity methodOrdered By: Remus Ungrachel on 03-03-2025 Troponin T.cardiac High sensitivity method [Mass/Vol] 91 ng/L High <14 [facility] Comment on above: Critical Result(s) C alled at: 03/03/2025-02:22 by: Siomara Jo to Mitch Saenz. Results read back by same. Urinalysis, Completeon 03-03 CAST,HYALINE 0-5 SEEN Normal 0-5 [facility] Comment on above: Order Comment: REBECCA SHELBYOR TO SPECIFY Performed By: #### L 400.0001 ####[facility] [address] [place], [place], [id number] EPI,SQUAMOUS 0-5 SEEN Normal 5-10 [facility] Comment on above: Order Comment: REBECCA SHELBYOR TO SPECIFY Performed By: #### L 400.0001 ####[facility] [address] [place], [address] RBC 5-10 SEEN Normal 0-5 [facility] Comment on above: Order Comment: REBECCA CTOR TO SPECIFY Performed By: #### L 400.0001 ####[facility] [address] [place], [address] WBC 0-5 SEEN Normal 0-5 [facility] Comment on above: Order Comment: COLLE CTOR TO SPECIFY Performed By: #### L 400.0001 ####[facility] [address] [place], [address] BILIRUBIN URINE Negative Normal Negative [facility] Comment on above: Order Comment: REBECCA CTOR TO SPECIFY Performed By: #### L 400.0001 ####[facility] [address] [place], [address] Clarity (U) Clear Normal Clear [facility] Comment on above: Order Comment: REBECCA CTOR TO SPECIFY Performed By: #### L 400.0001 ####[facility] [address] [place], [address] Color (U) Yellow Normal Yellow [facility] Comment on above: Order Comment: REBECCA CTOR TO SPECIFY Performed By: #### L 400.0001 ####[facility] [address] [place], [address] GLUCOSE, UR Normal Normal Normal [facility] Comment on above: Order Comment: REBECCA CTOR TO SPECIFY Performed By: #### L 400.0001 ####[facility] [address] [place], [address] KETONE UR 50 mg/dl Abnormal Negative [facility] Comment on above: Order Comment: REBECCA CTOR TO SPECIFY Performed By: #### L 400.0001 ####[facility] [address] [place], [address] LEUK ESTERASE Negative Normal Negative [facility] Comment on above: Order Comment: REBECCA CTOR TO SPECIFY Performed By: #### L 400.0001 ####[facility] [address] [place], [address] Nitrite Ql (U) Negative Normal Negative [facility] Comment on above: Order Comment: REBECCA CTOR TO SPECIFY Performed By: #### L 400.0001 ####[facility] [address] [place], [address] OCCULT BLOOD-UR 10 /ul Abnormal Negative [facility] Comment on above: Order Comment: REBECCA CTOR TO SPECIFY Performed By: #### L 400.0001 ####[facility] [address] [place], [address] pH UR 6.0 Normal 5.0 - 8.0 [facility] Comment on above: Order Comment: REBECCA CTOR TO SPECIFY Performed By: #### L 400.0001 ####[facility] [address] [place], [address] PROT DIPSTX 15 mg/dl Abnormal Negative [facility] Comment on above: Order Comment: REBECCA CTOR TO SPECIFY Performed By: #### L 400.0001 ####[facility] [address] [place], [address] SP.GR. DIPSTX 1.015 Normal 1.002-1.030 [facility] Comment on above: Order Comment: REBECCA CTOR TO SPECIFY Performed By: #### L 400.0001 ####[facility] [address] [place], [address] UROBILI Normal Normal Normal [facility] Comment on above: Order Comment: REBECCA CTOR TO SPECIFY Performed By: #### L 400.0001 ####[facility] [address] [place], [address] BACTERIA 0 SEEN Normal None Seen [facility] Comment on above: Order Comment: REBECCA CTOR TO SPECIFY Performed By: #### L 400.0001 ####[facility] [address] [place], [address] Mucus Ql (Urine sed) 0 SEEN Normal [facility] Comment on above: Order Comment: COLLE CTOR TO SPECIFY Performed By: #### L 400.0001 ####[facility] [address] [place], [address] Urine clarityOrdered By: Rem us Kathryn on 03-03-2025 Clarity (U) Clear Clear [facility] Urine color determinationOrd ered By: Abdulkadir Peralta on 03-03-2025 Color (U) Yellow Yellow [facility] Urine glucose detectionOrder ed By: Remus Peralta on 03-03-2025 Glucose Ql (U) Normal mg/dl Normal [facility] Urine leukocyte esterase det ection by dipstickOrdered By: Remus Peralta on 03-03-2025 Leukocyte esterase Test strip Ql (U) Negative Negative [facility] Urine pHOrdered By: Abdulkadir Un gur on 03-03-2025 pH (U) 6.0 [pH] 5.0 - 8.0 [facility] Urine sediment bacteria coun t by microscopy (number/high power field)Ordered By: Abdulkadir Peralta on 03-03-2025 Bacteria LM.HPF (Urine sed) [#/Area] 0 /[HPF] None Seen [facility] Urine specific gravity measu rementOrdered By: Abdulkadir Peralta on 03-03-2025 Specific gravity (U) [Rel density] 1.015 1.002-1.030 [facility] Urine urobilinogen measureme ntOrdered By: Remus Peralta on 03-03-2025 Urobilinogen Ql (U) Normal mg/dl Normal [facility] White blood cell (WBC) count Ordered By: Abdulkadir Peralta on 03-03-2025 WBC (Bld) [#/Vol] 22.9 10*3/uL High 4.4-11.0 [facility] White blood cell countOrdere d By: Remus Peralta on 03-03-2025 White blood cell count 0-5 SEEN /hpf 0-5 [facility] Chest 1 View (Portable)on Chest 1 View (Portable) [facility] Imaging Services [address] [place], [place] [address] Chest 1 View (Portable) MR#: [id number] Acct: [id number] Name: ASHLEY GÓMEZ Rep #: [id number] : 1955 F 69 From: Ruddy Booker MD PCP: Dr. Gasper Nelson DO Status: REG ER Study: Chest 1 View (Portable) Date of Exam: 03/02/25 Exam# [id number] Ordering Dr: Abdulkadir Peralta DO PROCEDURE: CHEST 1 VIEW (PORTABLE) 03/03/2025 REASON FOR EXAM: DYSPNEA TECHNIQUE: Frontal view of the chest. COMPARISON: 02/15/2025 FINDINGS: Scoliosis. Normal heart size. Well inflated lungs. No consolidation, effusion, or pneumothorax. RAD/Chest 1 View (Portable) IMPRESSION: No acute chest findings Reading Location: [place] [address] CC: Dr. Gasper Nelson DO; Dr. Abdulkadir Peralta DO Proposal Director: Signed [address] 02-24-2025 36 Recent Visits Date Type Provider Dept 11/12/24 Office Visit Siomara Estrada PA-C [facility] Showing recent visits within past 365 days and meeting all other requirements Future Appointments Date Type Provider Dept 05/12/25 Appointment Gasper Nelson DO [facility] Showing future appointments within [...] recent labs completed in chart? N/A Normal [facility] Anion gap in Serum or Plasma Ordered By: Bunny Avilez on 02-17-2025 Anion gap [Moles/Vol] 12 mmol/L 5-15 [facility] BUN/creatinine ratioOrdered By: Bunny Raghav on 02-17-2025 Urea nitrogen/Creatinine [Mass ratio] 34.6 mg/mg High - [facility] Basic Metabolic Profile (BMP )on 02-17-2025 BUN/CRE 34.6 RATIO High - [facility] Comment on above: Performed By: #### L 500.2500 ####[facility] [address] [place], [address] Calcium [Mass/Vol] 9.9 mg/dL Normal 7.6-11.0 [facility] Comment on above: Performed By: #### L 500.2500 ####[facility] [address] [place], [address] Chloride [Moles/Vol] 103 mmol/L Normal 98-108 [facility] Comment on above: Performed By: #### L 500.2500 ####[facility] [address] [place], [place], CO2 [Moles/Vol] 25.7 mmol/L Normal 21.0-32.0 [facility] Comment on above: Performed By: #### L 500.2500 ####[facility] [address] [place], [address] Creatinine [Mass/Vol] 0.68 mg/dL Low 0.70-1.20 [facility] Comment on above: Performed By: #### L 500.2500 ####[facility] [address] [place], [address] ECRCL 53.82 ml/min Normal 50-250 [facility] Comment on above: Performed By: #### L 500.2500 ####[facility] [address] [place], [address] GAP 12 Normal -15 [facility] Comment on above: Performed By: #### L 500.2500 ####[facility] [address] [place], [address] GFR/1.73 sq M.predicted among non-blacks MDRD (S/P/Bld) [Vol rate/Area] 94 mL/min/{1.73_m2} Normal >60 [facility] Comment on above: Result Comment: mL/m in/1.73m2 CKD-EPI Creatinine Equation (2020) Performed By: #### L 500.2500 ####[facility] [address] [place], [address] Glucose [Mass/Vol] 102 mg/dL High 70-99 [facility] Comment on above: Performed By: #### L 500.2500 ####[facility] [address] [place], [address] Potassium [Moles/Vol] 4.4 mmol/L Normal 3.3-5.1 [facility] Comment on above: Performed By: #### L 500.2500 ####[facility] [address] [place], [address] Sodium [Moles/Vol] 140 mmol/L Normal 133-145 [facility] Comment on above: Performed By: #### L 500.2500 ####[facility] [address] [place], [address] Urea nitrogen [Mass/Vol] 23 mg/dL High 4-19 [facility] Comment on above: Performed By: #### L 500.2500 ####[facility] [address] [place], [address] Carbon dioxide, total [Moles /volume] in Central venous bloodOrdered By: Bunny Avilez on 02-17-2025 CO2 [Moles/Vol] 25.7 mmol/L 21.0-32.0 [facility] Chloride assayOrdered By: Merissa Avilez on 02-17-2025 Chloride [Moles/Vol] 103 mmol/L 98-108 [facility] Discharge Instructionon 02-02 Discharge Instruction [facility] Medical Records Department [address] [place] [address] Instructions for Home/Discharge Instructions 02/17/25 1052 MR#: [id number] Acct: [id number] Name: ASHLEY GÓMEZ Rep #: [id number] : 1955 69 From: Bunny Avilez DO [...] CC: Dr. Danish Davila DO Signed Normal [facility] Glomerular filtration rate ( GFR) estimation/1.73 sq m using serum, plasma, or whole bOrdered By: Bunny Avilez on 02-17-2025 GFR/1.73 sq M.predicted among non-blacks MDRD (S/P/Bld) [Vol rate/Area] 94 mL/min/{1.73_m2} >60 [facility] Comment on above: mL/min/1.73m2 CKD-EP I Creatinine Equation (2020) Potassium measurement (mass/ volume)Ordered By: Bunny Avilez on 02-17-2025 Potassium (Unsp spec) [Mass/Vol] 4.4 mmol/L 3.3-5.1 [facility] Serum creatinine measurement (mass/volume)Ordered By: Bunny Avilez on 02-17-2025 Creatinine [Mass/Vol] 0.68 mg/dL Low 0.70-1.20 [facility] Serum glucose measurement (m ass/volume)Ordered By: Bunny Avilez on 02-17-2025 Glucose [Mass/Vol] 102 mg/dL High 70-99 [facility] Serum or plasma calcium janneth urement (mass/volume)Ordered By: Bunny Avilez on 02-17-2025 Calcium [Mass/Vol] 9.9 mg/dL 7.6-11.0 [facility] Serum or plasma urea nitroge n measurement (mass/volume)Ordered By: Bunny Avilez on 02-17-2025 Urea nitrogen [Mass/Vol] 23 mg/dL High 4-19 [facility] Sodium levelOrdered By: Bunny Avilez on 02-17-2025 Sodium [Moles/Vol] 140 mmol/L 133-145 [facility] Basic Metabolic Profile (BMP )on 02-16-2025 BUN/CRE 28.6 RATIO High 10-20 [facility] Comment on above: Performed By: #### L 500.2500 #### [facility] Laboratory [address] [place], [place], [address] Calcium [Mass/Vol] 10.4 mg/dL Normal 7.6-11.0 [facility] Comment on above: Performed By: #### L 500.2500 #### [facility] [address] [place], [address] Chloride [Moles/Vol] 106 mmol/L Normal 98-108 [facility] Comment on above: Performed By: #### L 500.2500 #### [facility] [address] [place], [address] CO2 [Moles/Vol] 24.1 mmol/L Normal 21.0-32.0 [facility] Comment on above: Performed By: #### L 500.2500 #### [facility] [address] [place], [address] Creatinine [Mass/Vol] 0.68 mg/dL Low 0.70-1.20 [facility] Comment on above: Performed By: #### L 500.2500 #### [facility] [address] [place], [address] ECRCL 53.82 ml/min Normal 50-250 [facility] Comment on above: Performed By: #### L 500.2500 #### [facility] [address] [place], [address] GAP 12 Normal 5-15 [facility] Comment on above: Performed By: #### L 500.2500 #### [facility] [address] [place], [address] GFR/1.73 sq M.predicted among non-blacks MDRD (S/P/Bld) [Vol rate/Area] 94 mL/min/{1.73_m2} Normal >60 [facility] Comment on above: Result Comment: mL/m in/1.73m2 CKD-EPI Creatinine Equation (2020) Performed By: #### L 500.2500 #### [facility] [address] [place], [address] Glucose [Mass/Vol] 110 mg/dL High 70-99 [facility] Comment on above: Performed By: #### L 500.2500 #### [facility] [address] [place], [address] Potassium [Moles/Vol] 5.5 mmol/L High 3.3-5.1 [facility] Comment on above: Result Comment: Hemo lysis present, Results??could be affected. ?? Performed By: #### L 500.2500 #### [facility] [address] [place], [place], [address] Sodium [Moles/Vol] 142 mmol/L Normal 133-145 [facility] Comment on above: Performed By: #### L 500.2500 #### [facility] [address] [place], [place], [address] Urea nitrogen [Mass/Vol] 19 mg/dL Normal 4-19 [facility] Comment on above: Performed By: #### L 500.2500 #### [facility] [address] [place], [place], [address] 12 Lead EKGon 02-15-2025 12 Lead EKG [facility] Cardiovascular Services [address] [place] [address] 12 Lead EKG 02/15/25 0839 MR#: [id number] Acct: [id number] Name: ASHLEY GÓMEZ Rep #: [id number] : 1955 69 From: Ezequiel Gusman MD Attending Dr: Dr. Bunny Avilez, DO Status: D IS IN Ordering Dr: Wilfred Bryan MD Date: 02/15/25 Location: [facility] Sex: F C Admitted: 02/15/25 Test Reason : SOB Blood Pressure : */* mmHG Vent. Rate : 84 BPM Atrial Rate : 84 BPM P-R Int : 154 ms QRS Dur : 72 ms QT Int : 384 ms P-R-T Axes : 88 64 29 degrees QTcB Int : 453 ms Normal sinus rhythm Normal ECG Confirmed by EZEQUIEL GUSMAN MD ([id number]), assistant production editor TIFFANI BENZ ([id number]) on 02/18/2025 8:22:27 AM Referred By: JOMAR Confirmed By: EZEQUIEL GUSMAN MD 02/18/2522 Date Ezequiel Gusman MD CC: Dr. Wilfred Bryan MD; Dr. Bunny Avilez DO; Dr. Danish Davila DO Signed Normal [facility] Absolute lymphocyte countOrd ered By: Wilfred Bryan on 02-15-2025 Lymphocytes Auto (Unsp spec) [#/Vol] 1.81 10*3/uL 0.83-4.51 [facility] Absolute neutrophil countOrd ered By: Wilfred Bryan on 02-15-2025 Neutrophils (Bld) [#/Vol] 7.2 10*3/uL 2.0-7.7 [facility] Anion gap in Serum or Plasma Ordered By: Wilfred Bryan on 02-15-2025 Anion gap [Moles/Vol] 13 mmol/L 5-15 [facility] Automated lymphocyte count a s percentage of total leukocytesOrdered By: Wilfred Bryan on 02-15-2025 Lymphocytes/100 WBC Auto (Unsp spec) 19.2 % 19-41 [facility] BUN/creatinine ratioOrdered By: Wilfred Bryan on 02-15-2025 Urea nitrogen/Creatinine [Mass ratio] 22.4 mg/mg High 10-20 [facility] Basic Metabolic Profile (BMP )on 02-15-2025 BUN/CRE 22.4 RATIO High - [facility] Comment on above: Performed By: #### L 500.2500, L100.0100 #### [facility] [address] [place], [address] Calcium [Mass/Vol] 9.8 mg/dL Normal 7.6-11.0 [facility] Comment on above: Performed By: #### L 500.2500, L100.0100 #### [facility] [address] [place], [address] Chloride [Moles/Vol] 101 mmol/L Normal 98-108 [facility] Comment on above: Performed By: #### L 500.2500, L100.0100 #### [facility] [address] [place], [address] CO2 [Moles/Vol] 26.3 mmol/L Normal 21.0-32.0 [facility] Comment on above: Performed By: #### L 500.2500, L100.0100 #### [facility] [address] [place], [address] Creatinine [Mass/Vol] 0.75 mg/dL Normal 0.70-1.20 [facility] Comment on above: Performed By: #### L 500.2500, L100.0100 #### [facility] [address] [place], [address] ECRCL 53.51 ml/min Normal 50-250 [facility] Comment on above: Performed By: #### L 500.2500, L100.0100 #### [facility] [address] [place], [address] GAP 13 Normal 5-15 [facility] Comment on above: Performed By: #### L 500.2500, L100.0100 #### [facility] [address] [place], [address] GFR/1.73 sq M.predicted among non-blacks MDRD (S/P/Bld) [Vol rate/Area] 86 mL/min/{1.73_m2} Normal >60 [facility] Comment on above: Result Comment: mL/m in/1.73m2 CKD-EPI Creatinine Equation (2020) Performed By: #### L 500.2500, L100.0100 #### [facility] [address] [place], [address] Glucose [Mass/Vol] 136 mg/dL High 70-99 [facility] Comment on above: Performed By: #### L 500.2500, L100.0100 #### [facility] [address] [place], [address] Potassium [Moles/Vol] 3.2 mmol/L Low 3.3-5.1 [facility] Comment on above: Performed By: #### L 500.2500, L100.0100 #### [facility] [address] [place], [address] Sodium [Moles/Vol] 140 mmol/L Normal 133-145 [facility] Comment on above: Performed By: #### L 500.2500, L100.0100 #### [facility] [address] [place], [address] Urea nitrogen [Mass/Vol] 17 mg/dL Normal 4-19 [facility] Comment on above: Performed By: #### L 500.2500, L100.0100 #### [facility] [address] [place], [address] Basophil percentageOrdered B y: Wilfred Bryan on 02-15-2025 Basophils/100 WBC (Bld) 1.0 % 0-1 [facility] CBC W/Diff, Automatedon 02-02 Absolute Lymph 1.81 X10 3/uL Normal 0.83-4.51 [facility] Comment on above: Performed By: #### L 500.2500, L100.0100 #### [facility] [address] [place], [address] Absolute Neut 7.2 X10 3/uL Normal 2.0-7.7 [facility] Comment on above: Performed By: #### L 500.2500, L100.0100 #### [facility] [address] [place], [address] Basophils/100 WBC (Bld) 1.0 % Normal 0-1 [facility] Comment on above: Performed By: #### L 500.2500, L100.0100 #### [facility] [address] [place], [address] Eosinophils/100 WBC (Bld) 0.7 % Normal 0-5 [facility] Comment on above: Performed By: #### L 500.2500, L100.0100 #### [facility] [address] [place], [address] Erythrocyte distribution width (RBC) [Ratio] 13.2 % Normal 11.6-14.6 [facility] Comment on above: Performed By: #### L 500.2500, L100.0100 #### [facility] [address] [place], [address] Hematocrit (Bld) [Volume fraction] 41.5 % Normal 37-47 [facility] Comment on above: Performed By: #### L 500.2500, L100.0100 #### [facility] [address] [place], [address] Hemoglobin (Bld) [Mass/Vol] 13.6 g/dL Normal 12.0-15.0 [facility] Comment on above: Performed By: #### L 500.2500, L100.0100 #### [facility] [address] [place], [address] IG% 0.200 Normal 0.0-0.9 [facility] Comment on above: Result Comment: IG% - Immature Granulocytes (promyelocytes, myelocytes and metamyelocytes) > 1% indicates that a LEFT SHIFT is Present. Performed By: #### L 500.2500, L100.0100 #### [facility] [address] [place], [address] Lymphocytes/100 WBC (Bld) 19.2 % Normal 19-41 [facility] Comment on above: Performed By: #### L 500.2500, L100.0100 #### [facility] [address] [place], [address] MCH (RBC) [Entitic mass] 29.9 pg Normal 27.0-32.0 [facility] Comment on above: Performed By: #### L 500.2500, L100.0100 #### [facility] [address] [place], [address] MCHC (RBC) [Mass/Vol] 32.8 g/dL Normal 32-36 [facility] Comment on above: Performed By: #### L 500.2500, L100.0100 #### [facility] [address] [place], [address] MCV (RBC) [Entitic vol] 91.2 fL Normal 81-99 [facility] Comment on above: Performed By: #### L 500.2500, L100.0100 #### [facility] [address] [place], [address] Monocytes/100 WBC (Bld) 1.9 % Normal 0-10 [facility] Comment on above: Performed By: #### L 500.2500, L100.0100 #### [facility] [address] [place], [address] Neutrophils/100 WBC (Bld) 77.0 % High 47-70 [facility] Comment on above: Performed By: #### L 500.2500, L100.0100 #### [facility] [address] [place], [address] Nucleated RBC (Bld) [#/Vol] 0 10*3/uL Normal 0-5 [facility] Comment on above: Performed By: #### L 500.2500, L100.0100 #### [facility] [address] [place], [address] Platelet mean volume (Bld) [Entitic vol] 9.7 fL Normal 6.2-12.0 [facility] Comment on above: Performed By: #### L 500.2500, L100.0100 #### [facility] [address] [place], [address] Platelets (Bld) [#/Vol] 263 10*3/uL Normal 150-450 [facility] Comment on above: Performed By: #### L 500.2500, L100.0100 #### [facility] [address] [place], [address] RBC (Bld) [#/Vol] 4.55 10*6/uL Normal 4.2-5.4 [facility] Comment on above: Performed By: #### L 500.2500, L100.0100 #### [facility] [address] [place], [address] RDW SD 44.6 fl High 35.1-43.9 [facility] Comment on above: Performed By: #### L 500.2500, L100.0100 #### [facility] [address] [place], [address] WBC (Bld) [#/Vol] 9.4 10*3/uL Normal 4.4-11.0 [facility] Comment on above: Performed By: #### L 500.2500, L100.0100 #### [facility] [address] [place], [address] Carbon dioxide, total [Moles /volume] in Central venous bloodOrdered By: Wilfred Bryan on 02-15-2025 CO2 [Moles/Vol] 26.3 mmol/L 21.0-32.0 [facility] Chest 1 View (Portable)on Chest 1 View (Portable) [facility] Imaging Services [address] [place] [address] Chest 1 View (Portable) MR#: [id number] Acct: [id number] Name: ASHLEY GÓMEZ Rep #: [id number] : 1955 F 69 From: Dejuan Patel DO PCP: Dr. Danish Davila, DO Status: REG ER Study: Chest 1 View (Portable) Date of Exam: 02/15/25 Exam# [id number] Ordering Dr: Wilfred Bryan MD PROCEDURE: CHEST 1 VIEW (PORTABLE) 02/15/2025 REASON FOR EXAM: SHORTNESS OF BREATH TECHNIQUE: Frontal view of the chest. FINDINGS: Hardware: None Heart: Normal size Lungs: Clear Bones: No aggressive Other: RAD/Chest 1 View (Portable) IMPRESSION: No acute process Reading [facility] CC: Dr. Wilfred Bryan MD; Dr. Danish Davila DO Proposal Director: Signed Normal [facility] Chloride assayOrdered By: Lloyd Bryan on 02-15-2025 Chloride [Moles/Vol] 101 mmol/L 98-108 [facility] Emergency Department Summary on 02-15-2025 Emergency Department Summary [facility] Medical Records Department [address] [place] [address] Emergency Department Summary 02/15/25 MR#: [id number] Acct: [id number] Name: ASHLEY GÓMEZ Rep #: [id number] : 1955 69 From: Wilfred Bryan MD [...] day. Additionally, sometimes she smokes as well. [facility] Medical History Wears dentures Wears glasses [...] none current occupational status: employed current occupation: [employer] Smoking Status: Current every day smoker tobacco [...] support pneumoth (more content not included)... Normal [facility] Eosinophil percentageOrdered By: Wilfred Bryan on 02-15-2025 Eosinophils/100 WBC (Bld) 0.7 % 0-5 [facility] Erythrocyte distribution wid th ratioOrdered By: Wilfred Bryan on 02-15-2025 Erythrocyte distribution width (RBC) [Ratio] 13.2 % 11.6-14.6 [facility] Erythrocyte distribution wid th standard deviationOrdered By: Wilfred Bryan on 02-15-2025 Erythrocyte distribution width (RBC) [Ratio] 44.6 fl High 35.1-43.9 [facility] Glomerular filtration rate ( GFR) estimation/1.73 sq m using serum, plasma, or whole bOrdered By: Wilfred Bryan on 02-15-2025 GFR/1.73 sq M.predicted among non-blacks MDRD (S/P/Bld) [Vol rate/Area] 86 mL/min/{1.73_m2} >60 [facility] Comment on above: mL/min/1.73m2 CKD-EP I Creatinine Equation (2020) H AND P Exam - [facility] 06-14-2025 H&P Exam - Hospitalist [facility] Medical Records Department [address] [place] [address] H P Exam - Hospitalist 02/15/25 1459 MR#: [id number] Acct: [id number] Name: ASHLEY GÓMEZ Rep #: [id number] : 1955 69 From: Bunny Avilez DO PCP: Dr. Danish Davila, DO Status:ADM IN Location: [facility] RH011-3 HPI - General General Date of Admission: 02/15/25 Date of Service: 02/15/25 Chief Complaint: Shortness of breath HPI Narrative ASHLEY GÓMEZ, is a 69 F who presents to the emergency room at [facility] with complaints of shortness of breath over [...] acute infiltrates patient will be admitted to [place] [address] for exacerbation of COPD with hypoxia, she will be given aerosol treatments IV Solu-Medrol, pulse ox will be monitored. [facility] Medical History Wears dentures Wears glasses Post-menopausal [...] none current occupational status: employed current occupation: [employer] Smoking Status: Current every day smoker tobacco [...] Vital Signs (more content not included)... Normal [facility] Hematocrit Auto (Bld) [Volum e fraction]Ordered By: Wilfred Bryan on 02-15-2025 Hematocrit (Bld) [Volume fraction] 41.5 % 37-47 [facility] Hemoglobin measurementOrdere d By: Wilfred Bryan on 02-15-2025 Hemoglobin (Bld) [Mass/Vol] 13.6 g/dL 12.0-15.0 [facility] Immature granulocytes/100 WB C Auto (Bld)Ordered By: Wilfred Bryan on 02-15-2025 Immature granulocytes/100 WBC (Bld) 0.200 % 0.0-0.9 [facility] Comment on above: IG% - Immature Granu locytes (promyelocytes, myelocytes and metamyelocytes) > 1% indicates that a LEFT SHIFT is Present. MCV (mean corpuscular volume ) determinationOrdered By: Wilfred Bryan on 02-15-2025 MCV (RBC) [Entitic vol] 91.2 fL 81-99 [facility] Mean corpuscular hemoglobin (MCH) determinationOrdered By: Wilfred Bryan on 02-15-2025 MCH (RBC) [Entitic mass] 29.9 pg 27.0-32.0 [facility] Mean corpuscular hemoglobin concentration (MCHC) determinationOrdered By: Wilfred Bryan on 02-15-2025 MCHC (RBC) [Mass/Vol] 32.8 g/dL 32-36 [facility] Mean platelet volume determi nationOrdered By: Wilfred Bryan on 02-15-2025 Platelet mean volume (Bld) [Entitic vol] 9.7 fL 6.2-12.0 [facility] Monocyte percentageOrdered B y: Wilfred Bryan on 02-15-2025 Monocytes/100 WBC (Bld) 1.9 % 0-10 [facility] Neutrophil percentageOrdered By: Wilfred Bryan on 02-15-2025 Neutrophils/100 WBC (Bld) 77.0 % High 47-70 [facility] Nucleated red blood cell per centageOrdered By: Wilfred Bryan on 02-15-2025 Nucleated RBC/100 WBC (Bld) [Ratio] 0 % 0-5 [facility] Platelet countOrdered By: Lloyd Bryan on 02-15-2025 Platelets (Bld) [#/Vol] 263 10*3/uL 150-450 [facility] Potassium measurement (mass/ volume)Ordered By: Wilfred Bryan on 02-15-2025 Potassium (Unsp spec) [Mass/Vol] 3.2 mmol/L Low 3.3-5.1 [facility] RBC Auto (Bld) [#/Vol]Ordere d By: Wilfred Bryan on 02-15-2025 RBC (Bld) [#/Vol] 4.55 10*6/uL 4.2-5.4 [facility] Serum creatinine measurement (mass/volume)Ordered By: Wilfred Bryan on 02-15-2025 Creatinine [Mass/Vol] 0.75 mg/dL 0.70-1.20 [facility] Serum glucose measurement (m ass/volume)Ordered By: Wilfred Bryan on 02-15-2025 Glucose [Mass/Vol] 136 mg/dL High 70-99 [facility] Serum or plasma calcium janneth urement (mass/volume)Ordered By: Wilfred Bryan on 02-15-2025 Calcium [Mass/Vol] 9.8 mg/dL 7.6-11.0 [facility] Serum or plasma urea nitroge n measurement (mass/volume)Ordered By: Wilfred Bryan on 02-15-2025 Urea nitrogen [Mass/Vol] 17 mg/dL 4-19 [facility] Sodium levelOrdered By: Wilfred Bryan on 02-15-2025 Sodium [Moles/Vol] 140 mmol/L 133-145 [facility] White blood cell (WBC) count Ordered By: Wilfred Bryan on 02-15-2025 WBC (Bld) [#/Vol] 9.4 10*3/uL 4.4-11.0 [facility] 3602-11-2025 36 Patient advised and voiced understanding. [facility] 2902-10-2025 29 Addended by: JUJU PATTON on: 02/10/2025 03:52 PM Modules accepted: Orders [facility] 3602-10-2025 36 Called patient to relay provider message left voicemail to call office back. Mychart message sent to patient. Please relay message to patient. [facility] 36 Message released to patient as [...] a new script sent in. Please advise [facility] 36 Left message to return call Gasper Nelson DO 02/10/25 12:43 PM Antibiotic, and prednisone prescribed to her local pharmacy. I would take the prednisone 5 days due to her emphysema [facility] 36 Recent Visits Date Type Provider Dept 11/12/24 Office Visit Siomara Estrada PA-C [facility] 02/22/24 Office Visit Gasper Nelson DO [facility] Showing recent visits within past 365 days [...] Most recent labs completed in chart? N/A [facility] 36 Recent Visits Date Type Provider Dept 11/12/24 Office Visit Siomara Estrada PA-C [facility] 02/22/24 Office Visit Gasper Nelson DO [facility] Showing recent visits within [...] recent labs completed in chart? N/A Normal [facility] 36 S: Patient spoke with CAC nurse regarding chest congestion and increased shortness [...] refill on her albuterol inhaler. (Sent via [employer]t request). Allergies and pharmacy verified. R: Offered [...] or worse than normal Protocols used: Breathing [id number] Normal [facility] 36on 12-13-2024 36 Recent Visits Date Type Provider Dept 11/12/24 Office Visit Siomara Estrada PA-C [facility] 02/22/24 Office Visit Gasper Nelson DO [facility] Showing recent visits within past 365 days [...] CHOLHDLCRATI 4.2 01/13/2023 NONHDLCHOLES 174 (H) 01/13/2023 [facility] 37on 11-12-2024 37 Personalized Preventative Plan [...] Recommendations: A preventive eye exam by an wildlife refuge specialist is recommended every 1-2 years to screen for glaucoma, cataracts, macular degeneration, and other eye disorders. A preventive dental visit is recommended every 6 months. Try to get at least 150 minutes of exercise per week or 10,000 steps per day on a pedometer. You need 1200-1500mg of calcium and 4363-3251 international units of vitamin D per day. [...] riding a bicycle or a motorcycle Normal [facility] Office Visiton 11-12-2024 Follow-up visit [id number] Isauro Gómezssie 1955 F Date Provider Department Center 11/12/2024 SIOMARA DIAZ [facility] Family History Problem Relation Age of [...] Brother Alive Brother Alive Level of Service:G0439 [place] PPPS, SUBSEQ VISIT Reason for Visit and Comments: Medicare Annual Wellness Visit Subsequent [677] Normal [facility] Progress Noteon 11-12-2024 Progress Note - Chronic stable was taking simvastatin 80 mg daily but felt that that was too much and she was concerned about problems with her liver so she has been cutting in half and taking 40 mg daily. Will recheck her levels today but I believe this is reasonable enough as her levels have been adequately controlled Normal [facility] Progress Note - Chronic stable she will continue on esomeprazole 40 mg daily. Normal [facility] Progress Note - Chronic stable patient was recently treated for flareup with amoxicillin and prednisone she can take the prednisone she is requesting a lower dose Medrol Dosepak and a second round of antibiotics that she started in some generalized wheezing and congestion strongly encouraged smoking cessation. Normal [facility] Progress Note [facility] - [address] [facility] [address] Dept: [phone] Dept Chief Complaint: Ashley Gómez is an [...] pain. Ga (more content not included)... Normal [facility] 36on 10-31-2024 36 S: Patient spoke [...] not coughing Protocols used: Cough - Acute Zrn-Wtkhiwlism-GDLM T-AH Normal [facility] Progress Noteon 10-31-2024 Progress Note [facility] - [address] [facility] [address] Dept: [phone] Dept Loc: [phone] Patient was identified and seen today via [...] that they are currently in the state [facility]. If the patient is a minor, [...] orders. Gasper Nelson DO 10/31/2024 12:20 PM [facility] 10-01-2024 36 Received signed receipt of certified letter sent to patient. Scanned to media in chart. [facility] 09-30-2024 36 Recent Visits Date Type Provider Dept 02/22/24 Office Visit Gasper Nelson DO [facility] Showing recent visits within past 365 days and meeting all other requirements Future Appointments Date Type Provider Dept 11/12/24 Appointment DO Gillian Bai [facility] Showing future appointments within next 90 [...] recent labs completed in chart? N/A None [place] [id number] 36 Recent Visits Date Type Provider Dept 02/22/24 [facility] Showing recent visits within past 365 days and meeting all other requirements Future Appointments Date Type Provider Dept 09/30/24 Appointment [facility] Showing future appointments within next [...] CHOLHDLCRATI 4.2 01/13/2023 NONHDLCHOLES 174 (H) 01/13/2023 [facility] 36on 08-05-2024 36 Transferred to result notes [facility] 36 Message released to patient as written. Patient's further questions if applicable: NA Were all questions from office addressed or relayed to the patient from encounter: Yes [place] [address] Placed call to patient. Unable to reach them by phone to discuss lab results. Left detailed message to return call to discuss results. Please release information to patient [facility] 36 ----- Message from Juju Rodriguez sent at 08/05/2024 7:36 AM EST ----- ----- Message ----- From: Gasper Nelson DO Sent: 08/04/2024 5:20 PM EST To: [facility] Clinical Team [employer] Stable small pulmonary nodules and they now recommend recheck study in 1 year. As noted before she has moderate amount of emphysema. Normal [facility] CT LUNG SCREENING FOLLOW UP LOW [...] 2:02 PM EST F/U SCAN SMOKER Normal [facility] 36on 07-24-2024 36 Recent Visits Date Type Provider Dept 02/22/24 Office Visit Gasper Nelson DO [facility] 07/31/23 Office Visit Gasper NelsonDO [facility] Showing recent visits within past 365 days and meeting all other requirements Future Appointments Date Type Provider Dept 08/21/24 Appointment Gasper Nelson [facility] Showing future appointments within [...] CHOLHDLCRATI 4.2 01/13/2023 NONHDLCHOLES 174 (H) 01/13/2023 [facility] 36on 06-28-2024 36 Reason for call: Pari [...] to get her scheduled. Thank you Contact [facility] 36 No auth needed. Faxed orders to [facility] for pt to be sched - [facility] will sched/advise pt. My chart mess sent to patient with info to sched. [facility] 36on 06-27-2024 36 Vincent Perez, It looks like the patient navigator has done all that she can do. So it looks like all avenues have been exhausted to try and reach this patient to schedule. [facility] 36 To April to follow up [facility] 36 Mrs. Gómez called in after receiving certified letter. She would like to return to complete the recommended lung screening 3 month follow-up imaging previously ordered by Dr. Nelson. Will send message to provider office to place new referral for imaging and assist patient with scheduling. She prefers [place] for imaging location and is available on Monday the if there are any appointments available. Normal [facility] 36on 06-11-2024 36 RX loaded Next ov 08/21/24 [facility] 36 Medication name: traZODone (Desyrel) 150 [...] prior to picking up the medication: Yes [facility] Colonoscopy Reporton 024 Colonoscopy Report [facility] Medical Records Department [address] [place] [address] Colonoscopy Report MR#: [id number] Acct: [id number] Name: ASHLEY GÓMEZ Rep #: [id number] : 1955 68 From: Slim Weiss DO PCP: Dr. Danish Davila DO Status:REG [facility] Patient Name: Ashley Gómez Procedure Date: 04/29/2024 [...] criteria for high risk CPT copyright 2021 [employer] [place] [employer] [employer]. All rights reserved. The codes documented in this report are preliminary and upon make up editor review may be revised to meet current compliance requirements. Slim Weiss DO 04/29/2024 9:34:45 AM This report has been signed electronically. Number of Addenda: 0 Note Initiated On: 04/29/2024 8:54 AM 04/29/24933 Date Slim Weiss DO Cosigner Signature: Date (if indicated) CC: Dr. Danish Davila DO; Slim Weiss DO Date Dictated: 04/29/24853 Date Transcribed: Proposal Director: WES Signed [facility] MR/POSTOP.SAMIRA 04-29-2024 MR/POSTOP.[facility] Medical Records Department [address] [place] [address] Anesthesia Postop Eval I 04/29/241402 MR#: [id number] Acct: [id number] Name: ASHLEY GÓMEZ Rep #: [id number] : 1955 68 From: Supriya Valdovinos CRNA PCP: Dr. Danish Davila DO Status:[facility] Y Race: C Location: EN Anesthesia: Postop [...] Supriya Aruna REAL Cosigner Signature: CC: Signed Normal [facility] MR/[id number] 04-29-2024 MR/POSTOPAN2 [facility] Medical Records Department [address] [place] [address] Anesthesia Postop Eval II 04/29/24 1341 MR#: [id number] Acct: [id number] Name: ASHLEY GÓMEZ Rep #: [id number] : 1955 68 From: David Valadez MD PCP: Dr. Danish Davila, DO Status:[facility] Y Race: C Location: EN Anesthesia Postop [...] Date David Ochoa Signature: Date CC: Signed [facility] 36on 04-17-2024 36 Recent Visits Date Type Provider Dept 02/22/24 Office Visit Gasper Nelson DO [facility] 07/31/23 Office Visit Gasper Nelson DO [facility] Showing recent visits within [...] from any other provider? No None Normal [facility] 3604-12-2024 36 Orders cancelled [facility] 3604-11-2024 36 We have been unable to reach your patient to schedule their testing. Test Name: CT lung screening follow up, PFT and Mammo 1st Attempt: 03/30/24 2nd Attempt: 04/11/24 [facility] Central Scheduling [facility] Lipid 1996 panelon 4 Cholesterol [Mass/Vol] 162 mg/dL NINF - 200 mg/dL [facility] Cholesterol in HDL [Mass/Vol] 38 mg/dL Low 40 - 60 mg/dL [facility] Cholesterol in LDL [Mass/Vol] 106 mg/dL High 0 - <100 [facility] Cholesterol.total/Choles terol in HDL [Mass ratio] 4 {ratio} [facility] Comment on above: Ref Range: < 3 Low Risk for CHD 3-6 Mod Risk for CHD > 6 High Risk for CHD Interpretation and review of laboratory results Abnormal [facility] Triglyceride [Mass/Vol] 91 mg/dL NINF - 150 mg/dL [facility] Absolute lymphocyte counton 01-31-2022 Lymphocytes Auto (Unsp spec) [#/Vol] 1.28 10*3/uL 0.83-4.51 [facility] Work Phone: Basophil percentageon 2021 Basophils/100 WBC (Bld) 0.3 % 0-1 [facility] Work Phone: Chloride [Moles/Vol] 100 mmol/L 98-107 [facility] Work Phone: Eosinophils/100 WBC (Bld) 0.0 % 0-5 [facility] Work Phone: Glucose [Mass/Vol] 153 mg/dL 74-106 [facility] Work Phone: Comment on above: Fasting Glucose resu lt greater than or equal to 126 mg/dL suggests DIABETES MELLITUS per A.D.A. criteria. Neutrophils (Bld) [#/Vol] 17.2 10*3/uL 2.0-7.7 [facility] Work Phone: Neutrophils/100 WBC (Bld) 88.5 % 47-70 [facility] Work Phone: Potassium [Moles/Vol] 3.2 mmol/L 3.5-5.1 [facility] Work Phone: Comment on above: Slight Hemolysis, Re sult may be falsely increased. Sodium [Moles/Vol] 135 mmol/L 136-145 [facility] Work Phone: WBC (Bld) [#/Vol] 19.4 10*3/uL 4.4-11.0 [facility] Work Phone: Blood erythrocytes count (nu mber/volume)on 01-31-2022 RBC (Bld) [#/Vol] 4.26 10*6/uL 4.2-5.4 [facility] Work Phone: Blood hemoglobin measurement (mass/volume)on 01-31-2022 Hemoglobin (Bld) [Mass/Vol] 12.5 g/dL 12.0-15.0 [facility] Work Phone: Blood lymphocytes/100 leukoc yteson 01-31-2022 Lymphocytes/100 WBC (Bld) 6.6 % 19-41 [facility] Work Phone: Blood monocytes/100 leukocyt eson 01-31-2022 Monocytes/100 WBC (Bld) 3.5 % 0-10 [facility] Work Phone: [phone] Blood platelet mean volumeon 01-31-2022 Platelet mean volume (Bld) [Entitic vol] 10.4 fL 6.2-12.0 [facility] Work Phone: [phone] Determination of erythrocyte mean corpuscular volume (MCV)on 01-31-2022 MCV (RBC) [Entitic vol] 88.0 fL 81-99 [facility] Work Phone: [phone] Hematocrit Auto (Bld) [Volum e fraction]on 01-31-2022 Hematocrit (Bld) [Volume fraction] 37.5 % 37-47 [facility] Work Phone: [phone] Laboratory - Chemistry and C hemistry - challengeon 01-31-2022 CO2 [Moles/Vol] 27.0 mmol/L 21.0-32.0 [facility] Work Phone: [phone] Urea nitrogen/Creatinine [Mass ratio] 22.0 mg/mg 10-20 [facility] Work Phone: [phone] Laboratory - Hematology and Cell countson 01-31-2022 Erythrocyte distribution width (RBC) [Entitic vol] 45.4 fL 35.1-43.9 [facility] Work Phone: [phone] Erythrocyte distribution width (RBC) [Ratio] 14.1 % 11.6-14.6 [facility] Work Phone: [phone] Immature granulocytes/100 WBC (Bld) 1.100 % 0.0-0.9 [facility] Work Phone: [phone] Comment on above: IG% - Immature Granu locytes (promyelocytes, myelocytes and metamyelocytes) > 1% indicates that a LEFT SHIFT is Present. MCH (RBC) [Entitic mass] 29.3 pg 27.0-32.0 [facility] Work Phone: [phone] Nucleated RBC/100 WBC (Bld) [Ratio] 0 % 0-5 [facility] Work Phone: MCHC Auto (RBC) [Mass/Vol]on 01-31-2022 MCHC (RBC) [Mass/Vol] 33.3 g/dL 32-36 [facility] Work Phone: No Panel Informationon 01-31 Estimated Creatinine Clearance Calc 49.62 ml/min [facility] Work Phone: Estimated GFR (MDRD) Amer 79 mL/min >60 [facility] Work Phone: Comment on above: GFR Calc Estimated GFR (MDRD) Non-Af Amer 65 mL/min >60 [facility] Work Phone: Comment on above: Non- GFR Calc SARS-CoV-2 & FLU Antigen (Rapid) [facility] Work Phone: Platelets bldon 01-31-2022 Platelets (Bld) [#/Vol] 188 10*3/uL 150-450 [facility] Work Phone: Serum or plasma calcium janneth urement (mass/volume)on 01-31-2022 Calcium [Mass/Vol] 9.4 mg/dL 8.5-10.1 [facility] Work Phone: Serum or plasma creatinine m easurement (mass/volume)on 01-31-2022 Creatinine [Mass/Vol] 0.91 mg/dL 0.55-1.02 [facility] Work Phone: Comment on above: The validity of the calculated GFR & GFRAA in patients over 70 years has not been determined. Clinical correlation is essential. Serum or plasma urea nitroge n measurement (mass/volume)on 01-31-2022 Urea nitrogen [Mass/Vol] 20 mg/dL 7-18 [facility] Work Phone: Thin prep Papanicolaou smear with manual screeningon 01-31-2022 Thin prep Papanicolaou smear with manual screening 8 5-15 [facility] Work Phone: DEXA Bone Density Axial Skel etonon 01-11-2022 Patient [facility]: [id number] Density ACCESSION EXAM DATE/TIME PROCEDURE ORDERING PROVIDER [id number] 01/11/2022 15:04 EDT OT Bone Density DEXA AMBERDO BERUMEN PAUL E. Axial Skeleton CPT code 73519 Reason For Exam (OT Bone Density DEXA Axial Skeleton) . Report DXA BONE DENSITOMETRY: CLINICAL INDICATION: Asymptomatic post-menopausal status COMPARISON: None TECHNIQUE: Quantitative bone mineral densitometry of the hip and lumbar spine was performed with a dual energy x-ray observed absorptiometry device - [employer] Horizon W. Regions of interest were [...] recommendations for prevention of bone loss include: 0778-5626 mg calcium intake per day for adults [...] and Follow-up. [employer] Evidence-Based Summaries. [facility] for Education and Research. 2017 Bone Density Report Report Dictated on --- Final --- Dictating Physician: MD SANTIAGO LAUREN B Signed Date and Time: 01/11/2022 4:03 pm Signed by: MD SANTIAGO LAUREN B Transcribed Date and Time: 01/11/2022 4:05 BARBBari Carrion MD - 01/11/2022 Patient Name: ASHLEY GÓMEZ Bone Density ACCESSION EXAM DATE/TIME PROCEDURE ORDERING PROVIDER [id number] 01/11/2022 15:04 EDT OT Bone Density DEXA DO DAVILA PAUL E. Axial Skeleton CPT code 92473 Reason For Exam (OT Bone Density DEXA Axial Skeleton) . Report DXA BONE DENSITOMETRY: CLINICAL INDICATION: Asymptomatic post-menopausal status COMPARISON: None TECHNIQUE: Quantitative bone mineral densitometry of the hip and lumbar spine was performed with a dual energy x-ray observed absorptiometry device - [id number] W. Regions of interest were obtained through [...] recommendations for prevention of bone loss include: 2363-6221 mg calcium intake per day for adults [...] and Follow-up. [employer] Evidence-Based Summaries. [facility] [employer] for Education and Research. 2017 Bone Density [...] Mammography ACCESSION EXAM DATE/TIME PROCEDURE ORDERING PROVIDER [id number] 01/11/2022 15:01 EDT MG Breast Tomosynthesis DO DAVILA PAUL E. BI Scr CPT code 63669 19223 Reason For Exam (MG Breast Tomosynthesis BI [...] 20, 2013, bilateral screening mammogram performed at [facility]. TISSUE DENSITY: BIRADS B - There are [...] images: BB's = Nipples; skin lesions Open lime = Palpable Line = Scar 2D digital [...] am Signed by: MD SANTIAGO LAUREN B [facility] OT Bone Density DEXA Axial S stephanie 01-11-2022 OT Bone Density DEXA Axial Skeleton Patient Name: ASHLEY GÓMEZ Bone Density ACCESSION EXAM DATE/TIME PROCEDURE ORDERING PROVIDER [id number] 01/11/2022 15:04 EDT OT Bone Density DEXA DO DAVILA PAUL E. Axial Skeleton CPT code 66698 Reason For Exam (OT Bone Density DEXA Axial Skeleton) . Report DXA BONE DENSITOMETRY: CLINICAL INDICATION: Asymptomatic post-menopausal status COMPARISON: None TECHNIQUE: Quantitative bone mineral densitometry of the hip and lumbar spine was performed with a dual energy x-ray observed absorptiometry device - [employer] Horizon W. Regions of interest were [...] recommendations for prevention of bone loss include: 0443-5071 mg calcium intake per day for adults [...] and Follow-up. [employer] Knowledge Evidence-Based Summaries. [facility] [employer] Education and Research. 2017 Bone Density Report Report Dictated on Final Dictating Physician: MD SANTIAGO LAUREN B Signed Date and Time: 01/11/2022 4:03 pm Signed by: MD SANTIAGO LAUREN B Transcribed Date and Time: 01/11/2022 4:05 Normal [facility] 10-23-2020 [facility] Telephone (GASTTW) ---- SAHLEY GÓMEZ ([id number]) 1955 F Date Time Provider Department 10/23/20 [...] Fully Assessed Reason for Visit: Schedule Evaluation [7783] Prescriptions as of 10/23/2020 Sig: HYDROCODONE 5 [...] by GERMAN RAMIREZ MD on 10/23/20 Normal [facility] No Panel Information SARS-CoV-2 & FLU Antigen (Rapid) [facility] Work Phone: Vital Signs Date Time Vital Sign Value Performing Clinician Facility 03-03-2025 03:34-0400 Body temperature 98.1 [degF] Dr. Danish Davila DO Work Phone: [facility] 03-03-2025 03:34-0400 Diastolic blood pressure 82 mm[Hg] Dr. Danish Davila DO Work Phone: [facility] 03-03-2025 03:34-0400 Heart rate 90 /min Dr. Danish Davila DO Work Phone: [facility] 03-03-2025 03:34-0400 Inhaled oxygen flow rate 2 L/min Dr. Danish Davila DO Work Phone: [facility] 03-03-2025 03:34-0400 Respiratory rate 18 /min Dr. Danish Davila DO Work Phone: [facility] 03-03-2025 03:34-0400 SaO2% (BldA) [Mass fraction] 92 % Dr. Danish Davila DO Work Phone: [facility] 03-03-2025 03:34-0400 Systolic blood pressure 156 mm[Hg] Dr. Danish Davila DO Work Phone: [facility] 03-02-2025 23:34-0400 Body height 162.[address] Danish Davila DO Work Phone: [facility] 03-02-2025 23:34-0400 Body mass index (BMI) [Ratio] 18.9 kg/m2 Dr. Danish Davila DO Work Phone: [facility] 03-02-2025 23:34-0400 Body weight [address] Danish Davila DO Work Phone: [facility] 02-17-2025 08:14-0400 Body temperature 98.2 [degF] Dr. Danish Davila DO Work Phone: [facility] 02-17-2025 08:14-0400 Diastolic blood pressure 54 mm[Hg] Dr. Danish Davila DO Work Phone: [facility] 02-17-2025 08:14-0400 Heart rate 76 /min Dr. Danish Davila DO Work Phone: [facility] 02-17-2025 08:14-0400 Respiratory rate 18 /min Dr. Danish Davila DO Work Phone: [facility] 02-17-2025 08:14-0400 SaO2% (BldA) [Mass fraction] 92 % Dr. Danish Davila DO Work Phone: [facility] 02-17-2025 08:14-0400 Systolic blood pressure 131 mm[Hg] Dr. Danish Davila DO Work Phone: [facility] 02-17-2025 04:32-0400 Inhaled oxygen flow rate 2 L/min Dr. Danish Davila DO Work Phone: [facility] 02-16-2025 15:06-0400 Body height 162.[address] Danish Davila DO Work Phone: [facility] 02-16-2025 15:06-0400 Body weight 52.[address] Danish Davila DO Work Phone: [facility] 02-15-2025 11:58-0400 Body mass index (BMI) [Ratio] 19.7 kg/m2 Dr. Danish Davila DO Work Phone: [facility] 02-15-2025 10:47-0400 Body temperature 98 [degF] Dr. Danish Daivla DO Work Phone: [facility] 02-15-2025 10:47-0400 Diastolic blood pressure 68 mm[Hg] Dr. Danish Davila DO Work Phone: [facility] 02-15-2025 10:47-0400 Heart rate 87 /min Dr. Danish Davila DO Work Phone: [facility] 02-15-2025 10:47-0400 Respiratory rate 19 /min Dr. Danish Davila DO Work Phone: [facility] 02-15-2025 10:47-0400 SaO2% (BldA) [Mass fraction] 91 % Dr. Danish Davila DO Work Phone: [facility] 02-15-2025 10:47-0400 Systolic blood pressure 132 mm[Hg] Dr. Danish Davila DO Work Phone: [facility] 02-15-2025 10:30-0400 Inhaled oxygen flow rate 2 L/min Dr. Danish Davila DO Work Phone: [facility] 02-15-2025 08:30-0400 Body height 162.[address] Danish Davila DO Work Phone: [facility] 02-15-2025 08:30-0400 Body mass index (BMI) [Ratio] 19.5 kg/m2 Dr. Danish Davila DO Work Phone: [facility] 02-15-2025 08:30-0400 Body weight 51.[address] Danish Davila DO Work Phone: [facility] 11-12-2024 09:09-0400 Diastolic blood pressure 80 mm[Hg] Siomara Falcono PA-C Work Phone: [facility] 11-12-2024 09:09-0400 Systolic blood pressure 132 mm[Hg] Siomara Estrada PA-C Work Phone: [facility] 11-12-2024 08:38-0400 Body height 162.6 cm Siomara Estrada PA-C Work Phone: [facility] 11-12-2024 08:38-0400 Body mass index (BMI) [Ratio] 20.6 kg/m2 Siomara Estrada PA-C Work Phone: [facility] 11-12-2024 08:38-0400 Body temperature 97.2 [degF] Siomara Estrada PA-C Work Phone: [facility] 11-12-2024 08:38-0400 Body weight 54.43 kg Siomara Estrada PA-C Work Phone: [facility] 11-12-2024 08:38-0400 Heart rate 83 /min Siomara Estrada PA-C Work Phone: [facility] 11-12-2024 08:38-0400 SaO2% (BldA) [Mass fraction] 90 % Siomara Estrada PA-C Work Phone: [facility] 02-22-2024 12:58-0400 Body height 162.6 cm Gasper Nelson DO Work Phone: [facility] 02-22-2024 12:58-0400 Body mass index (BMI) [Ratio] 21.11 kg/m2 Gasper Riveraa DO Work Phone: [facility] 02-22-2024 12:58-0400 Body temperature 97 [degF] Gasper Riveraa DO Work Phone: [facility] 02-22-2024 12:58-0400 Body weight 55.79 kg Gasper Nelson DO Work Phone: [facility] 02-22-2024 12:58-0400 Diastolic blood pressure 74 mm[Hg] Gasper Riveraa DO Work Phone: [facility] 02-22-2024 12:58-0400 Heart rate 71 /min Gasper Nelson DO Work Phone: [facility] 02-22-2024 12:58-0400 SaO2% (BldA) [Mass fraction] 97 % Gasper Nelson DO Work Phone: [facility] 02-22-2024 12:58-0400 Systolic blood pressure 115 mm[Hg] Gasper Riveraa DO Work Phone: [facility] 07-31-2023 15:37-0500 Body height 162.6 cm Gasper Nelson DO Work Phone: [employer] [facility] 07-31-2023 15:37-0500 Body mass index (BMI) [Ratio] 20.53 kg/m2 Gasper Riveraa DO Work Phone: [employer] [facility] 07-31-2023 15:37-0500 Body temperature 97.81 [degF] Gasper Riveraa DO Work Phone: [employer] [facility] 07-31-2023 15:37-0500 Body weight 54.25 kg Gasper Riveraa DO Work Phone: [facility] 07-31-2023 15:37-0500 Diastolic blood pressure 78 mm[Hg] Gasper Nelson DO Work Phone: [facility] 07-31-2023 15:37-0500 Heart rate 80 /min Gasper Nelson DO Work Phone: [facility] 07-31-2023 15:37-0500 SaO2% (BldA) [Mass fraction] 94 % Gasper Nelson DO Work Phone: [facility] 07-31-2023 15:37-0500 Systolic blood pressure 138 mm[Hg] Gasper Nelson DO Work Phone: [facility] 01-13-2023 09:24-0400 Body height 162.6 cm Gasper Nelson DO Work Phone: [facility] 01-13-2023 09:24-0400 Body mass index (BMI) [Ratio] 19.74 kg/m2 Gasper Nelson DO Work Phone: [facility] 01-13-2023 09:24-0400 Body temperature 97.5 [degF] Gasper Nelson DO Work Phone: [facility] 01-13-2023 09:24-0400 Body weight 52.16 kg Gasper Nelson DO Work Phone: [facility] 01-13-2023 09:24-0400 Diastolic blood pressure 73 mm[Hg] Gasper Nelson DO Work Phone: [facility] 01-13-2023 09:24-0400 Heart rate 89 /min Gasper Nelson DO Work Phone: [facility] 01-13-2023 09:24-0400 SaO2% (BldA) [Mass fraction] 99 % Gasper Nelson DO Work Phone: [facility] 01-13-2023 09:24-0400 Systolic blood pressure 118 mm[Hg] Gasper Nelson DO Work Phone: [facility] 11-14-2022 11:49-0400 Body height 162.6 cm Siomara Estrada PA-C Work Phone: [facility] 11-14-2022 11:49-0400 Body mass index (BMI) [Ratio] 20.6 kg/m2 Siomara Falcono PA-C Work Phone: [facility] 11-14-2022 11:49-0400 Body temperature 98.01 [degF] Siomara Falcono PA-C Work Phone: [facility] 11-14-2022 11:49-0400 Body weight 54.43 kg Siomara Falcono PA-C Work Phone: [facility] 11-14-2022 11:49-0400 Diastolic blood pressure 80 mm[Hg] Siomara Falcono PA-C Work Phone: [facility] 11-14-2022 11:49-0400 Heart rate 82 /min Siomara Falcono PA-C Work Phone: [facility] 11-14-2022 11:49-0400 SaO2% (BldA) [Mass fraction] 95 % Siomara Falcono PA-C Work Phone: [facility] 11-14-2022 11:49-0400 Systolic blood pressure 138 mm[Hg] Siomara Falcono PA-C Work Phone: [facility] 10-03-2022 08:39-0500 Body height 162.6 cm Danish Carmonajohnbruno DO Work Phone: [facility] 10-03-2022 08:39-0500 Body mass index (BMI) [Ratio] 20.63 kg/m2 Danish Carmonajohno DO Work Phone: [facility] 10-03-2022 08:39-0500 Body temperature 97.11 [degF] Danish Davila DO Work Phone: [facility] 10-03-2022 08:39-0500 Body weight 54.52 kg Danish Carmonacaellao DO Work Phone: [facility] 10-03-2022 08:39-0500 Diastolic blood pressure 63 mm[Hg] Danish Davila DO Work Phone: [facility] 10-03-2022 08:39-0500 Heart rate 74 /min Danish Davila DO Work Phone: [facility] 10-03-2022 08:39-0500 SaO2% (BldA) [Mass fraction] 93 % Danish Davila DO Work Phone: [facility] 10-03-2022 08:39-0500 Systolic blood pressure 118 mm[Hg] Danish Davila DO Work Phone: [facility] 01-31-2022 09:50-0400 Body temperature 99.4 [degF] [facility] Work Phone: 01-31-2022 09:50-0400 Diastolic blood pressure 97 mm[Hg] [facility] Work Phone: 01-31-2022 09:50-0400 Heart rate 100 /min [facility] Work Phone: 01-31-2022 09:50-0400 Respiratory rate 18 /min [facility] Work Phone: 01-31-2022 09:50-0400 SaO2% (BldA) [Mass fraction] 96 % [facility] Work Phone: 01-31-2022 09:50-0400 Systolic blood pressure 116 mm[Hg] [facility] Work Phone: 01-31-2022 09:20-0400 Body height 160.02 cm [facility] Work Phone: 01-31-2022 09:20-0400 Body mass index (BMI) [Ratio] 21.2 kg/m2 [facility] Work Phone: 01-31-2022 09:20-0400 Body weight 54.43 kg [facility] Work Phone: Encounters Encounter Date Encounter Type Care Provider Facility Start: 03-03-2025 Evaluation and management of inpatient Gasper Nelson Facility:[facility] Start: 02-24-2025 End: 02-24-2025 Refill Gasper Nelson DO Work Phone: [facility] [employer] Start: 02-17-2025 Non-patient / Non-visit Dr. Merissa Avile[facility] Work Phone: Start: 02-16-2025 Non-patient / Non-visit Dr. Merissa Avilez [facility] Work Phone: Start: 02-15-2025 Non-patient / Non-visit Dr. Merissa Avilez [facility] Work Phone: Start: 02-15-2025 ambulatory Bunny Eisenberg y:[facility] Start: 02-15-2025 End: 02-17-2025 Evaluation and management of inpatient Dr. Bunny Avilez DO -[facility] 3 Work Phone: Start: 02-10-2025 End: 02-10-2025 Orders Only Gasper Nelson DO Work Phone: [facility] [employer] Comment on above: Chronic obstructive pulmonary disease with acute exacerbation (HCC) Release of Informati on Other insomnia Start: 02-09-2025 End: 02-10-2025 Refill Siomara Estrada PA-C Work Phone: [facility] [employer] Comment on above: Chronic obstructive pulmonary disease with acute exacerbation (HCC) Start: 12-13-2024 End: 12-13-2024 Refill Gasper Nelson DO Work Phone: [facility] [employer] Start: 11-20-2024 End: 12-02-2024 [facility] on above: Other insomnia Start: 11-12-2024 End: 11-12-2024 Assay of hemosiderin, quant Siomara Estrada PA-C Work Phone: [facility] Work Phone: Start: 11-12-2024 End: 11-12-2024 Patient encounter procedure Siom[facility] Estrada [facility] Comment on above: Routine general medi olga lidia examination at health care facility (Primary Dx); Encounter for screening mammogram for malignant neoplasm of breast; Hypercholesterolemia; Chronic obstructive pulmonary disease with acute exacerbation (HCC); Gastroesophageal reflux disease without esophagitis Start: 11-12-2024 End: 11-12-2024 ambulatory [facility] Start: 11-12-2024 End: 11-12-2024 Encounter for general adult medical examination without abnormal findings [facility] Start: 10-31-2024 End: 10-31-2024 Patient encounter procedure Michell Chin RN [facility] Clinical Communication Start: 10-31-2024 End: 10-31-2024 ambulatory Michell Chin RN [facility] Start: 10-31-2024 End: 10-31-2024 Office outpatient visit 15 minutes Gasper Nelson DO Work Phone: [facility] Comment on above: Chronic obstructive pulmonary disease with acute exacerbation (HCC) (Primary Dx); Influenza Start: 09-28-2024 End: 09-30-2024 Refill Gasper Nelson DO Work Phone: [facility] Start: 09-14-2024 End: 09-16-2024 Refill Gasper Nelson DO Work Phone: [facility] Start: 07-29-2024 End: 07-29-2024 ambulatory [facility] Start: 07-29-2024 End: 07-29-2024 Subsequent hospital visit by physician Gasper Nelson DO Work Phone: [facility] Comment on above: Abnormal CT scan of lung; Smoker Start: 07-24-2024 End: 07-24-2024 Refill Gasper Nelson DO Work Phone: [facility] Start: 06-28-2024 End: 07-01-2024 Telephone encounter Gasper Serrano Argentina DO Work Phone: [facility] Start: 06-11-2024 End: 06-11-2024 Refill Gasper Serrano Argentina DO Work Phone: [facility] Start: 04-29-2024 End: 04-29-2024 ambulatory Slim Weiss Facility:[facility] Start: 04-23-2024 End: 06-20-2024 Telephone encounter [facility] Comment on above: Care Coordination (L aldair Screening Follow up reminder - certified letter sent ) Start: 04-17-2024 End: 04-17-2024 Refill Gasper Maggie Argentina DO Work Phone: [facility] Start: 04-11-2024 End: 04-11-2024 Telephone encounter Gasper Nelson DO Work Phone: [facility] Comment on above: Other (Scheduling at [facility]) Start: 03-20-2024 ambulatory [facility] Facility:[facility] Start: 02-22-2024 End: 02-22-2024 Telephone encounter Gasper Nelson DO Work Phone: [facility] Comment on above: Referral (Dr Weiss) Start: 02-22-2024 End: 02-22-2024 Office outpatient visit 25 minutes Gasper Nelson DO Work Phone: [facility] Comment on above: Chronic obstructive pulmonary disease, unspecified COPD type (HCC) (Primary Dx); Abnormal CT scan of lung; Hypercholesterolemia; Colon cancer screening; Breast cancer screening by mammogram; Depression, unspecified depression type; Gastroesophageal reflux disease without esophagitis; Ex-smoker for less than 1 year Start: 02-05-2024 Telephone encounter Gasper byrnes DO Work Phone: [facility] Comment on above: Results Start: 01-02-2024 Refill Gasper vargas DO Work Phone: [facility] Start: 01-01-2024 Orders Only Gasper vargas DO Work Phone: [facility] Start: 12-24-2023 Orders Only Gasper vargas DO Work Phone: [facility] Start: 12-22-2023 Telephone encounter Gasper Mazariegos etrilla DO Work Phone: [facility] Comment on above: Appointment ([facility]) Start: 12-21-2023 Orders Only Gasper vargas DO Work Phone: [facility] Comment on above: COPD with acute exac erbation (HCC); Lower resp. tract infection Start: 12-18-2023 End: 12-18-2023 Subsequent hospital visit by physician Gasper Nelson DO Work Phone: [facility] Comment on above: Smoker; Moderate smoker (20 or less per day) Start: 12-17-2023 Refill Gasper Serrano Puneet camarleen DO Work Phone: [facility] Start: 08-01-2023 Telephone encounter Gasper Serrano Yair etrilla DO Work Phone: [facility] Comment on above: Orders (LDCT due in November 2023) Start: 07-31-2023 End: 07-31-2023 Office outpatient visit 15 minutes Gasper Serrano Miguelarleen DO Work Phone: [facility] Comment on above: Chronic obstructive pulmonary disease, unspecified COPD type (HCC) (Primary Dx); Depression, unspecified depression type; Gastroesophageal reflux disease without esophagitis; Hypercholesterolemia Start: 03-14-2023 Telephone encounter Gasper Serrano Yair etrilla DO Work Phone: [facility] Comment on above: Handicap Placard Start: 02-27-2023 Telephone encounter Gasper Serrano Yair etrilla DO Work Phone: [facility] Comment on above: Scheduling Start: 01-15-2023 Orders Only Gasper Serrano Puneet cama DO Work Phone: [facility] Start: 01-13-2023 Telephone encounter Gasper Serrano Yair byrnes DO Work Phone: [facility] Comment on above: Orders (LDCT) Start: 01-13-2023 End: 01-13-2023 Office outpatient visit 25 minutes Gasper Serrano Argentina DO Work Phone: [facility] Comment on above: Chronic obstructive pulmonary disease, unspecified COPD type (HCC) (Primary Dx); Hypercholesterolemia; Gastroesophageal reflux disease without esophagitis; Smoker; Depression, unspecified depression type Start: 11-14-2022 [facility] Start: 11-14-2022 Patient encounter [facility] Start: 11-14-2022 End: 11-14-2022 Office outpatient visit 25 minutes Siomara Estrada PA-C Work Phone: [facility] Comment on above: COPD with acute exac erbation (CMS/HCC) (HCC) (Primary Dx); Lower resp. tract infection; Smoking Start: 10-24-2022 End: 10-24-2022 ambulatory [facility] Work Phone: Start: 10-24-2022 End: 10-24-2022 Patient encounter procedure [facility], [facility] Start: 10-20-2022 Telephone encounter Danish berumen DO Work Phone: [facility] Comment on above: Orders Start: 10-17-2022 Telephone encounter Danish berumen DO Work Phone: [facility] Comment on above: Orders (Fax 10/03/22 XR Chest SULAIMAN, [facility] at [facility] Start: 10-04-2022 Telephone encounter Danish berumen DO Work Phone: [facility] Comment on above: Advice Only (cough) Start: 10-03-2022 End: 10-03-2022 Patient encounter procedure Danish Davila DO Work Phone: [facility] Comment on above: Medicare annual well ness visit, subsequent (Primary Dx); Cough, unspecified type; Chronic obstructive pulmonary disease, unspecified COPD type (HCC); Anxiety; Depression, unspecified depression type; Hypercholesterolemia; Mammogram declined; Colonoscopy refused Start: 04-22-2022 End: 04-22-2022 ambulatory [facility] Work Phone: Start: 04-22-2022 End: 04-22-2022 [facility] Start: 01-31-2022 End: 01-31-2022 Emergency department patient visit [facility] Start: 01-11-2022 End: 01-11-2022 Subsequent hospital visit by physician Danish Davila DO Work Phone: [facility] Comment on above: Menopause Start: 01-10-2022 End: 01-10-2022 Patient encounter procedure [facility] Procedures Date Procedure Procedure Detail Performing Clinician Start: 03-03-2025 Urnls dip stick/tabl et reagent auto microscopy Dr. Danish Davila DO Work Phone: Start: 03-03-2025 CT of thorax, abdome n and pelvis with contrast Dr. Danish Davila DO Work Phone: Start: 03-03-2025 D-dimer assay, quantitative Dr. Danish Davila DO Work Phone: Comment on above: D-Dimer ELEVATED (>0 .49): Additional studies and clinicalassessments are indicated to conclude diagnosis of:Deep Vein Thrombosis (DVT) or Pulmonary Embolism (PE)CRITICAL VALUE CALLED TO [id number]/30/25 [id number] Jalen Jonas.RESULTS READ BACK BY SAME. Start: 03-03-[address] Danish Davlia DO Work Phone: Start: 03-02-2025 Plain chest X-ray Dr. Yair Davila DO Work Phone: Start: 02-17-[address] Danish Davila DO Work Phone: Start: 02-15-2025 Plain chest X-ray Dr. Yair Davila DO Work Phone: Start: 02-15-[address] Danish Davila DO Work Phone: Start: 04-29-2024 Colonoscopy Gasper godinez DO Work Phone: Start: 12-18-2023 Lipid 1995 panel - S anabel or Plasma Gasper [...] 01-10-2022 Plain chest X-ray Start: 06-04-2021 Lipid 1995 panel - S anabel or Plasma Danish Davila DO Work Phone: SARS-CoV-2 & FLU Ant igen (Rapid) Plan of Treatment Date Care Activity Detail Author Start: 04-29-2034 Screening for malignant neoplasm of colon [facility] Start: 12-17-2028 Lipid panel Lipid Panel [facility] Start: 01-14-2028 Lipid panel Lipid Panel [facility] Start: 06-04-2026 Lipid panel Lipid Panel [facility] Start: 11-12-2025 COVID-19 Vaccine () COVID-19 Vaccine () [facility] Comment on above: Postponed from 05/05/2024 (Patient Refus ed) Start: 11-12-2025 RSV Immunization for Adults (1 - Risk 60-74 years 1-dose series) RSV Immunization for Adults (1 - Risk 60-74 years 1-dose series) [facility] Comment on above: Postponed from 2014 (Patient Refus ed) Start: 05-15-2025 Depression Monitoring Depression Monitoring [facility] Start: 05-12-2025 End: 05-12-2025 Patient encounter procedure [facility] Start: 05-05-2025 Influenza vaccination Influenza Vaccine (Season Ended) [facility] Start: 03-03-2025 Influenza vaccination Influenza Vaccine (#1) [facility] Comment on above: Postponed from 05/05/2024 (Patient Refus ed) Start: 03-03-2025 Electrocardiographic procedure [facility] Start: 03-03-2025 Measurement of occult blood in stool specimen using immunoassay [facility] Start: 03-03-2025 Respiratory pathogens DNA and RNA panel - Respiratory specimen by SHYLA with probe detection [facility] Start: 03-03-2025 Verification routine [facility] Start: 03-03-2025 Admission procedure [facility] Start: 03-03-2025 Hospital admission, emergency, from emergency room, medical nature [facility] Start: 03-03-2025 [facility] Start: 03-02-2025 [facility] Start: 02-17-2025 Patient discharge [facility] Start: 02-15-2025 Following clinical pathway protocol [facility] Start: 02-15-2025 Ambulation without limitation [facility] Start: 02-15-2025 Assessment of risk of venous thromboembolism [facility] Start: 02-15-2025 Catheterization of vein [facility] Start: 02-15-2025 Insertion of catheter into peripheral vein [facility] Start: 02-15-2025 Oxygen therapy [facility] Start: 02-15-2025 Providing care according to standard [facility] Start: 02-15-2025 Verification routine [facility] Start: 02-15-2025 Admission procedure [facility] Start: 02-15-2025 Hospital admission, emergency, from emergency room, medical nature [facility] Start: 02-15-2025 End: 02-15-2025 [facility] Start: 02-15-2025 [facility] Start: 02-15-2025 Inhalation therapy procedure [facility] Start: 11-12-2024 End: 11-12-2025 CBC W Auto Differential panel - Blood CBC auto differential Lab Routine Routine general medical examination at [facility] Hypercholesterolemia Expected: 11/12/2024 (Approximate), Expires: 11/12/2025 [facility] Comment on above: Expected: 11/12/2024 (Approximate), Expi res: 11/12/2025 Start: 11-12-2024 End: 11-12-2025 Comprehensive metabolic 1998 panel - Serum or Plasma Comprehensive metabolic panel Lab Routine Routine general medical examination at [facility] Hypercholesterolemia Expected: 11/12/2024 (Approximate), Expires: 11/12/2025 [facility] Comment on above: Expected: 11/12/2024 (Approximate), Expi res: 11/12/2025 Start: 11-12-2024 End: 01-12-2026 DBT Breast - bilateral screening Bilateral screening mammogram with tomosynthesis Imaging Routine Encounter for screening mammogram for malignant neoplasm of breast Expected: 11/12/2024, Expires: 01/12/2026 [facility] Work Phone: Comment on above: Expected: 11/12/2024, Expires: Start: 11-12-2024 End: 11-12-2025 Lipid 1996 panel - Serum or Plasma Lipid panel Lab Routine Hypercholesterolemia Expected: 11/12/2024 (Approximate), Expires: 11/12/2025 [facility] Comment on above: Expected: 11/12/2024 (Approximate), Expi res: 11/12/2025 Start: 11-12-2024 End: 11-12-2024 Patient encounter procedure [facility] [place] Start: 09-30-2024 End: 09-30-2024 Patient encounter procedure 09/30/2024 4:00 PM EST Office Visit [facility] [place] [address] [place] [address] Gasper Nelson DO [address] [place] [place] [address] [facility] [place] Start: 09-04-2024 Medicare Advantage Annual Wellness Visit Medicare Advantage Annual Wellness Visit [facility] Start: 08-21-2024 End: 08-21-2024 Patient encounter procedure [facility] Start: 07-29-2024 End: 07-29-2024 Patient encounter procedure 07/29/2024 11:30 AM EST Appointment [facility] [address] [place] [address] Gasper Nelson, [address] [place] [address] [facility] [address] Start: 07-29-2024 Subsequent hospital visit by physician 07/29/2024 11:30 AM EST Hospital Encounter [facility] [address] [place] [address] Gasper Nelson, [address] [place] [place] [address] [facility] [address] Start: 05-05-2024 COVID-19 Vaccine ( season) COVID-19 Vaccine ( season) [facility] Start: 05-05-2024 COVID-19 Vaccine ( season) COVID-19 Vaccine ( season) [facility] Start: 05-05-2024 Influenza vaccination [facility] Start: 04-29-2024 End: 04-29-2024 Patient encounter procedure 04/29/2024 4:00 PM EDT Office Visit [facility] [address] [place] [address] Gasper Nelson, [address] [place] [place] [address] [facility] Start: 02-24-2024 Screening for malignant neoplasm of colon [facility] Start: 02-22-2024 End: 02-21-2025 CBC W Auto Differential panel - Blood CBC auto differential Lab Routine Chronic obstructive pulmonary disease, unspecified COPD type (HCC) Expected: 02/22/2024 (Approximate), Expires: 02/21/2025 [facility] Comment on above: Expected: 02/22/2024 (Approximate), Expi res: 02/21/2025 Start: 02-22-2024 End: 02-21-2025 Complete PFT pre and post bronchodilator Complete PFT pre and post bronchodilator PFT Routine Chronic obstructive pulmonary disease, unspecified COPD type (HCC) Expected: 02/22/2024 (Approximate), Expires: 02/21/2025 [facility] Comment on above: Expected: 02/22/2024 (Approximate), Expi res: 02/21/2025 Start: 02-22-2024 End: 02-21-2025 Comprehensive metabolic 1998 panel - Serum or Plasma Comprehensive metabolic panel Lab Routine Chronic obstructive pulmonary disease, unspecified COPD type (HCC) Expected: 02/22/2024 (Approximate), Expires: 02/21/2025 [facility] Comment on above: Expected: 02/22/2024 (Approximate), Expi res: 02/21/2025 Start: 02-22-2024 End: 02-21-2025 CT Chest for screening WO contrast CT lung screening follow up low dose Imaging Routine Abnormal CT scan of lung Smoker Expected: 02/22/2024, Expires: 02/21/2025 [facility] Work Phone: Comment on above: Expected: 02/22/2024, Expires: Start: 02-22-2024 End: 04-23-2025 DBT Breast - bilateral screening Bilateral screening mammogram with tomosynthesis Imaging Routine Breast cancer screening by mammogram Expected: 02/22/2024, Expires: 04/23/2025 [facility] Work Phone: Comment on above: Expected: 02/22/2024, Expires: Start: 02-22-2024 End: 02-22-2024 Patient encounter procedure 02/22/2024 1:00 PM EDT Office Visit [facility] [address] [place] [address] Gasper Nelson DO [address] [place] [place] [address] [facility] Start: 02-14-2024 Screening for malignant neoplasm of colon [facility] Start: 02-05-2024 End: 02-05-2024 Patient encounter procedure 02/05/2024 9:00 AM EDT Office Visit [facility] [address] [place] [address] Gasper Nelson, [address] [place] [place] [address] [facility] Start: 01-22-2024 End: 01-22-2024 Patient encounter procedure 01/22/2024 10:00 AM EDT Office Visit [facility] [address] [place] [address] Gasper Nelson, [address] [place] [address] [facility] Start: 11-02-2023 Medicare Advantage Annual Wellness Visit (AWV) Medicare Advantage Annual Wellness Visit (AWV) [facility] Start: 10-03-2023 Depression Screening Depression Screening [facility] Start: 09-04-2023 Medicare Advantage Annual Wellness Visit Medicare Advantage Annual Wellness Visit [facility] Start: 08-01-2023 End: 08-01-2024 CT Chest for screening WO contrast CT lung screening low dose Imaging Routine Smoker Moderate smoker (20 or less per day) Expected: 08/01/2023, Expires: 08/01/2024 [facility] Work Phone: Comment on above: Expected: 08/01/2023, Expires: Start: 07-31-2023 End: 07-31-2024 Lipid 1996 panel - Serum or Plasma Lipid panel Lab Routine Hypercholesterolemia Expected: 07/31/2023 (Approximate), Expires: 07/31/2024 [facility] [employer] Work Phone: Comment on above: Expected: 07/31/2023 (Approximate), Expi res: 07/31/2024 Start: 07-14-2023 End: 07-14-2023 Patient encounter procedure [facility] Start: 05-05-2023 COVID-19 Vaccine () COVID-19 Vaccine () [facility] Start: 05-05-2023 Influenza vaccination Influenza Vaccine (#1) [facility] Start: 04-03-2023 End: 04-03-2023 Patient encounter procedure 04/03/2023 1:15 PM EDT Appointment [facility] [address] [place] [id number] Gasper Nelson, DO [address] [place] [address] [facility] [address] Start: 04-02-2023 Depression Monitoring Depression Monitoring [facility] Start: 01-23-2023 End: 01-23-2023 Patient encounter procedure 01/23/2023 Office Visit Family Medicine Kelsie Lisa, [employer] - BUSINESS PROGRAMMER [address] [place], [place] [id number] [facility] Start: 01-13-2023 End: 01-14-2024 CBC W Auto Differential panel - Blood CBC auto differential Lab Routine Smoker Expected: 01/13/2023 (Approximate), Expires: 01/14/2024 [facility] Work Phone: Comment on above: Expected: 01/13/2023 (Approximate), Expi res: 01/14/2024 Start: 01-13-2023 End: 01-14-2024 Comprehensive metabolic 1998 panel - Serum or Plasma Comprehensive metabolic panel Lab Routine Hypercholesterolemia Expected: 01/13/2023 (Approximate), Expires: 01/14/2024 [facility] Comment on above: Expected: 01/13/2023 (Approximate), Expi res: 01/14/2024 Start: 01-13-2023 End: 01-14-2024 CT Chest for screening WO contrast CT lung screening low dose Imaging Routine Smoker Expected: 01/13/2023, Expires: 01/14/2024 [facility] Work Phone: Comment on above: Expected: 01/13/2023, Expires: Start: 01-13-2023 End: 01-14-2024 Lipid 1996 panel - Serum or Plasma Lipid panel Lab Routine Hypercholesterolemia Expected: 01/13/2023 (Approximate), Expires: 01/14/2024 [facility] Comment on above: Expected: 01/13/2023 (Approximate), Expi res: 01/14/2024 Start: 01-13-2023 End: 01-14-2024 Thyrotropin [Units/volume] in Serum or Plasma TSH Lab Routine Hypercholesterolemia Expected: 01/13/2023 (Approximate), Expires: 01/14/2024 [facility] Comment on above: Expected: 01/13/2023 (Approximate), Expi res: 01/14/2024 Start: 01-11-2023 Screening for malignant neoplasm of breast Mammogram [facility] Start: 01-05-2023 Annual Wellness Visit (AWV) Annual Wellness Visit (AWV) [facility] Start: 12-24-2022 Depression Monitoring Depression Monitoring [facility] Start: 10-18-2022 End: 10-18-2023 Alanine aminotransferase [Enzymatic activity/volume] in Serum or Plasma ALT Lab Routine Hypercholesterolemia Expected: 10/18/2022 (Approximate), Expires: 10/18/2023 [facility] Comment on above: Expected: 10/18/2022 (Approximate), Expi res: 10/18/2023 Start: 10-18-2022 End: 10-18-2023 Aspartate aminotransferase [Enzymatic activity/volume] in Serum or Plasma AST Lab Routine Hypercholesterolemia Expected: 10/18/2022 (Approximate), Expires: 10/18/2023 [facility] Comment on above: Expected: 10/18/2022 (Approximate), Expi res: 10/18/2023 Start: 10-18-2022 End: 10-18-2023 Lipid 1996 panel - Serum or Plasma Lipid panel Lab Routine Hypercholesterolemia Expected: 10/18/2022 (Approximate), Expires: 10/18/2023 [facility] Comment on above: Expected: 10/18/2022 (Approximate), Expi res: 10/18/2023 Start: 10-03-2022 End: 10-03-2023 XR Chest 2 Views XR chest 2 views Imaging Routine Cough, unspecified type Expected: 10/03/2022, Expires: 10/03/2023 [facility] Work Phone: Comment on above: Expected: 10/03/2022, Expires: Start: 06-04-2022 Lipid panel Lipids [facility] Start: 04-18-2022 End: 04-18-2022 Patient encounter procedure 04/18/2022 Office Visit Family Medicine Danish Davila, DO [address] [place] [id number] [facility] Start: 02-03-2022 Pneumococcal 65+ years Vaccine (2 - PCV) Pneumococcal 65+ years Vaccine (2 - PCV) [facility] Start: 02-03-2022 Pneumococcal Vaccine: 65+ Years (2 - PCV) Pneumococcal Vaccine: 65+ Years (2 - PCV) [facility] Start: 01-31-2022 [facility] Work Phone: Start: 2014 RSV Immunization aged 60 or older (1 - 1-dose 60+ series) RSV Immunization aged 60 or older (1 - 1-dose 60+ series) [facility] Start: 2014 RSV Immunization for Adults (1 - Risk 60-74 years 1-dose series) RSV Immunization for Adults (1 - Risk 60-74 years 1-dose series) [facility] Start: 2009 Screening for osteoporosis DEXA (modify frequency per FRAX score) [facility] Start: 2004 Screening for malignant neoplasm of breast Breast [facility] screen [facility] Start: 2004 Shingles vaccine (1 of 2) Shingles vaccine (1 of 2) [facility] Start: 2004 Zoster Vaccines (1 of 2) Zoster Vaccines (1 of 2) [facility] Start: 1999 Screening for malignant neoplasm of colon [facility] Start: 1973 DTaP/Tdap/Td vaccine (1 - Tdap) DTaP/Tdap/Td vaccine (1 - Tdap) [facility] Start: 1973 DTaP/Tdap/Td Vaccines (1 - Tdap) DTaP/Tdap/Td Vaccines (1 - Tdap) [facility] Start: 1972 Hepatitis C screening [facility] Start: 1954 Hepatitis B Vaccines (1 of 3 - 3-dose series) Hepatitis B Vaccines (1 of 3 - 3-dose series) [facility] Start: 1954 Screening for malignant neoplasm of colon [facility] End: 12-18-2023 CT Chest for screening contrast [facility] Work Phone: Comment on above: Once for 1 Occurrences starting 12/18/19 until 12/18/2023 End: 07-29-2024 CT Chest for screening [facility] Work Phone: Comment on above: Once for 1 Occurrences starting 07/29/20 until 07/29/2024 Magnesium measurement [facility] OUTSIDE PROCEDURE SCAN OUTSIDE P ROCEDURE SCAN Procedures Ordered: 12/15/2023 [facility] Comment on above: Ordered: 12/15/2023 Patient Education ED Pneumonia (Adult) [facility] Work Phone: Patient referral [facility] Work Phone: End: 01-11-2022 Screening digital breast tomosynthesis bi [facility] Work Phone: Comment on above: Once for 1 Occurrences starting 01/12/20 until 01/11/2022 Troponin T.cardiac [Mass/volume] in Serum or Plasma by High sensitivity method [facility] Immunizations Immunization Date Immunization Notes Care Provider Fa vielka 01-13-2023 Pneumococcal Conjuga te PCV20, Pf (Prevnar 20) Gasper Nelson DO Work Phone: [facility] 05-26-2022 Covid-19, Pfizer Bivalent Booster, (Age 12y+), Im, 30 Mcg/0e Gasper Nelson DO Work Phone: [facility] 05-26-2022 Influenza, High-dose Seasonal, Quadrivalent, Preservative Free Gasper Nelson DO Work Phone: [facility] 05-26-2022 influenza virus vacc ine, unspecified formulation Gasper Nelson DO Work Phone: [facility] 12-11-2021 Covid-19, Pfizer Gra y Top, Do Not Dilute, (Age 12 Y+), Im, L Jolanta Glover RN [facility] 06-28-2021 Pfizer SARS-CoV-2 Vaccination Jolanta Glover RN [facility] 06-04-2021 Influenza, High-dose , Quadv, 65 yrs +, IM (Fluzone) Danish Davila DO Work Phone: [facility] Work Phone: 02-03-2021 pneumococcal polysaccharide vaccine, 23 valent Danish Davila DO Work Phone: [facility] Work Phone: 10-14-2020 COVID-19, Pfizer Pur ple top, DILUTE for use, 12+ yrs, 30mcg/0.3mL dose Danish Davila DO Work Phone: [facility] Work Phone: 09-23-2020 COVID-19, Pfizer Pur ple top, DILUTE for use, 12+ yrs, 30mcg/0.3mL dose Danish Davila DO Work Phone: [facility] 09-25-2013 hepatitis B vaccine, pediatric or pediatric/adolescent dosage [facility] 05-05-2013 Influenza virus vaccine [facility] 05-05-2013 influenza, seasonal, injectable Gasper Riveraarleen DO Work Phone: [facility] 09-04-2009 Pneumococcal Vaccine [facility] Work Phone: 09-04-2009 pneumococcal vaccine , unspecified formulation [facility] 07-14-2009 novel influenza-H1N1 -09, preservative-free, injectable Gasper Nelson DO Work Phone: [facility] 11-28-2008 hepatitis B vaccine, pediatric or pediatric/adolescent dosage Gasper Nelson DO Work Phone: [facility] 06-02-2008 hepatitis B vaccine, pediatric or pediatric/adolescent dosage Gasper Nelson DO Work Phone: [facility] 05-02-2008 hepatitis B vaccine, pediatric or pediatric/adolescent dosage Gasper Nelson DO Work Phone: [facility] Payers Date Payer Category Payer Self-pay [id number] 2019 Medicare HUMANA MEDICARE ADVANTAGE HUMANA MEDICARE [id number] 2019-Present [address] [place] [id number] Medicare HMO [id number] 2019 Medicare HMO HUMANA MEDICARE [id number] 2019 Medicare [id number] Unknown [id number] Unknown [id number] 2 Unknown [id number] 2 Unknown [id number] 2 Unknown [id number] 2 Unknown [id number] 2 Unknown [id number] 2 Unknown [id number] 2 Unknown [id number] 2 Social History Date Type Detail Facility Start: 03-24-2020 End: 03-02-2025 Tobacco smoking status HIIS Smokes tobacco daily [employer] Work Phone: Start: 09-24-2019 History of tobacco use Cigarette Smo ker [employer] Work Phone: Start: 03-24-2020 End: 11-12-2024 Cigarettes smoked current (pack per day) - Reported 1 [employer] Phone: Start: 03-24-2020 End: 02-22-2024 Tobacco use and exposure Smokeless tobacco non-user [employer] Phone: Start: 12-24-2021 End: 02-10-2025 Alcohol intake Ex-drinker (finding) [employer] Work Phone: Start: 05-06-2021 End: 01-04-2022 History SDOH Alcohol Frequency 1 [employer] Work Phone: Start: 03-24-2020 History SDOH Social Connections Phone 2 [employer] Work Phone: Start: 03-24-2020 History SDOH Social Connections Anglican 3 [employer] Work Phone: Start: 03-24-2020 History SDOH Social Connections Living 4 [employer] Work Phone: Start: 01-04-2022 History SDOH Physica l Activity DPW 0 [employer] Work Phone: Start: 1955 Sex Assigned At Female S [facility] Start: 07-19-2015 End: 01-31-2022 Tobacco smoking status [facility] Unknown if ever smoked [facility] Start: 05-23-2014 None [facility] Start: 05-07-2021 Homeless [facility] Start: 05-07-2021 Non-smoker [facility] Start: 11-04-2022 End: 01-13-2023 Exposure to SARS-CoV-2 (event) Not sure [facility] Start: 01-13-2023 End: 11-12-2024 Tobacco use panel [facility] Start: 06-23-2022 Gender identity Identifies as female gender (finding) [facility] Start: 06-23-2022 Sexual orientation Heterosexual (fin ding) [facility] Start: 04-04-2022 Sex Female (finding) [facility] How often do you nee d to have someone help you when you read instructions, pamphlets, or other written material from your doctor or pharmacy [SILS] Never [facility] Has the [employer], or [employer] threatened to shut off services in your home in past 12Mo No [facility] Are you now , , , , never or living with a partner? [facility] How often to you hav e a drink containing alcohol? Never [facility] Do you feel stress - tense, restless, nervous, or anxious, or unable to sleep at night because your mind is troubled all the time - these days [OSQ] Not at all [facility] (I/We) worried whesanti er (my/our) food would run out before (I/we) got money to buy more. Never true [facility] Goals Date Patient Goal Desired Activity /State Functional Status Date Assessment Result Facility 02-17-2025 Functional status Ambulates [facility] Work Phone: Mental Status Date Assessment Result Facility 03-02-2025 Cognitive function Voice/Name [facility] Work Phone: 02-17-2025 Cognitive function Voice/Name [facility] Work Phone: Clinical Notes 10-03-2022 to 03-03-2025 Telephone Encounter - Juju Patton MA - 02/24/2025 11:05 AM EDTTelephone Encounter - Juju Patton MA - 02/24/2025 11:05 AM EDT Note Date & Type Note Facility 03-03-2025 Radiology Diagnostic study note [facility] Imaging Services [address] [place] [address] CT Chest, Abd, Pel w/Contrast MR#: [id number] Acct: [id number] Name: ASHLEY GÓMEZ Rep #: [id number] : 1955 F 69 From: Flori Booker MD PCP: Dr. Gasper Nelson DO Status: [facility] Study:CT Chest, Abd, Pel w/Contrast Date of E xam: 03/03/25 Exam# [id number] Ordering Dr: Sol Peralta DO PROCEDURE: CT CHEST, ABD, PEL [...] 42, 5 mm noncalcified upper lobe nodule. Recommendsix-month follow up with low-dose chest CT. Status [...] lung band atelectasis. Esophageal reflux. Reading Location: [place] [address] CC: Dr. Gasper Nelson DO; Dr. Abdulkadir Peralta DO ~ Proposal Director: Signed [facility] 03-03-2025 Radiology Diagnostic study note [facility] Imaging Services [address], [place] [address] Chest 1 View (Portable) MR#: [id number] Acct: [id number] Name: ASHLEY GÓMEZ Rep #: [id number] : 1955 F 69 From: Flori Booker MD PCP: Dr. Gasper Nelson DO Status: RE G ER Study:Chest 1 View (Portable) Date of Exam: 03/02/25 Exam# [id number] Ordering Dr: Sol Peralta DO PROCEDURE: CHEST 1 VIEW (PORTABLE) 03/03/2025 REASON FOR EXAM: DYSPNEA TECHNIQUE: Frontal view of the chest. COMPARISON: 02/15/2025 FINDINGS: Scoliosis. Normal heart size. Well inflated lungs. No consolidation, effusion, or pneumothorax. RAD/Chest 1 View (Portable) IMPRESSION: No acute chest findings Reading Location: [place] [address] CC: Dr. Gasper Nelson DO; Dr. Abdulkadir Peralta DO ~ Proposal Director: Signed [facility] 02-24-2025 Telephone encounter Note Recent Visits Date Type Provider Dept 11/12/24 Office Visit Siomara Estrada PA-C [facility] Showing recent visits within past 365 days and meeting all other requirements Future Appointments Date Type Provider Dept 05/12/25 Appointment Gasper Nelson DO [facility] Showing future appointments within [...] Most recent labs completed in chart? N/A [facility] 02-24-2025 Miscellaneous Notes Recent Visits Date Type Provider Dept 11/12/24 Office Visit Siomara Estrada PA-C [facility] Showing recent visits within past 365 days and meeting all other requirements Future Appointments Date Type Provider Dept 05/12/25 Appointment Gasper Nelson DO [facility] Showing future appointments within [...] in chart? N/A documented in this encounter [facility] 02-17-2025 Discharge summary [facility] 02-17-2025 Note [facility] Medical Records Department [address] [place] [address] Discharge Summary 02/17/25 1059 MR#: [id number] Acct: [id number] Name: ASHLEY GÓMEZ Rep #: [id number] : 1955 69 From: Bunny Avilez DO PCP: Dr. Danish Davila DO Status:DIS IN Location: [place] [address] Providers Date of Admission: 02/15/25 Date of [...] was seen in the emergency room at [facility] with complaints of shortness of breath for [...] no acute process. Patient was admitted to [place] [address] for exacerbation of COPD and treated with [...] = to 20 (more content not included)... [facility] 02-16-2025 Progress note Note Date/Time February 16, 2025 11:22am [facility] Medical Records Department [address] [place] [address] Progress Note - Hospitalist 02/16/25 1117 MR#: [id number] Acct: [id number] Name: ASHLEY GÓMEZ Rep #:[id number] : 1955 69 From: Bunny Avilez DO PCP: Dr. Danish Davila DO Status:ADM IN Location: [address] Reason for Visit Reason for Visit: Diagnoses [...] 35 minutes Charges/Coding Visit Charges Inpatient E&M: 59905 Subs Hosp L2 02/16/25 1122 <Electronically signed by Bunny Avilez DO> Cosigner Signature (if applicable): CC: ~ Signed [facility] Work Phone: [phone] Progress note [facility] Medical Records Department [address] [place] [address] Progress Note - Hospitalist 02/16/25 1117 MR#: [id number] Acct: [id number] Name: ASHLEY GÓMEZ Rep #:[id number] : 1955 69 From: Bunny Avilez DO PCP: Dr. Danish Davila, DO Status:ADM IN Location: [facility] [id number] Reason for Visit Reason for Visit: Diagnoses [...] 35 minutes Charges/Coding Visit Charges Inpatient E&M: 98220 Subs Hosp L2 02/16/25 1122 Cosigner Signature (if applicable): CC: ~ Signed [facility]06-14-2025 History and physical note Author Bunny Avilez [facility] Note Date/Time February 15, 2025 3:06 pm [facility] Medical Records Department [address] [place] [address] H&P Exam - Hospitalist 02/15/25 6008 MR#: [id number] Acct: [id number] Name: ASHLEY GÓMEZ Rep #:[id number] : 1955 69 From: Bunny Avilez DO PCP: Dr. Danish Davila, DO Status:ADM IN Location: MS3 FI575-1 HPI - General General Date of Admission: 02/15/25 Date of Service: 02/15/25 Chief Complaint: Shortness of breath HPI Narrative ASHLEY GÓMEZ, is a 69 F who presents to the emergency room at [facility] with complaints of shortness of breath over [...] acute infiltrates patient will be admitted to [place] [address] for exacerbation of COPD with hypoxia, she will be given aerosol treatments IV Solu-Medrol, pulse ox will be monitored. [facility] Medical History Wears dentures Wears glasses Post-menopausal [...] none current occupational status: employed current occupation: [employer] Smoking Status: Current every day smoker tobacco [...] (Auto) 77.0 H, Lymph % (Auto) 19.2, [place] % (Auto) 1.9, Eos % (Auto) 0.7, [...] 09:25 IMPRESSION: No acute process Reading [facility] Assessment & Plan Assessment/Plan (1) COPD exacerbation: PLAN: Plan 1. Exacerbation of COPD-patient will be admitted to [place] [address] and given aerosoltreatments and IV Solu-Medrol #2 [...] 55 minutes Charges/Coding Visit Charges Inpatient E&M: 45108 Init Hosp L2 02/15/25 1506 <Electronically signed by Bunny Avilez DO> Cosigner Signature (if applicable): CC: Dr. Bunny Avilez, ; Dr. Danish Davila DO~ Signed [facility] Work Phone: 1(933) 887-666306-14-2025 History and physical note [facility] Medical Records Department [address] [place] [address] H&P Exam - Hospitalist 02/15/25 1457 MR#: [id number] Acct: [id number] Name: ASHLEY GÓMEZ Rep #:[id number] : 1955 69 From: Bunny Avilez DO PCP: Dr. Danish Davila DO Status:ADM IN Location: [facility] [id number] HPI - General General Date of Admission: 02/15/25 Date of Service: 02/15/25 Chief Complaint: Shortness of breath HPI Narrative ASHLEY GÓMEZ, is a 69 F who presents to the emergency room at [facility] with complaints of shortness of breath over [...] acute infiltrates patient will be admitted to [place] [address] for exacerbation of COPD with hypoxia, she will be given aerosol treatments IV Solu-Medrol, pulse ox will be monitored. [facility] Medical History Wears dentures Wears glasses Post-menopausal [...] none current occupational status: employed current occupation: [employer] Smoking Status: Current every day smoker tobacco [...] (Auto) 77.0 H, Lymph % (Auto) 19.2, [place] % (Auto) 1.9, Eos % (Auto) 0.7, [...] 09:25 IMPRESSION: No acute process Reading Location: [facility] Assessment & Plan Assessment/Plan (1) COPD exacerbation: PLAN: Plan 1. Exacerbation of COPD-patient will be admitted to [place] [address] and given aerosoltreatments and IV Solu-Medrol #2 [...] 55 minutes Charges/Coding Visit Charges Inpatient E&M: 04692 Init Hosp L2 02/15/25 1506 Cosigner Signature (if applicable): CC: Dr. Bunny Avilez, DO; Dr. Danish Davila, DO~ Signed [facility]06-14-2025 Evaluation note* Diagnosis Onset Date Resolution Status Admit Date Hypokalemia acute February 15 11:21am Hypoxia acute February 15 11:21am Smoker acute February 15 11:21am COPD exacerbation chronic February 152024 11:21am [facility] Work Phone: [phone]) [phone] Evaluation note* Diagnosis Onset Date Resolution Status Admit Date COPD exacerbation inactive February 152024 11:21am Hypokalemia inactive February 15 11:21am Hypoxia inactive February 15 11:21am Smoker inactive February 15 11:21am Hypoxemia acute March 03 3:30am Intractable nausea and vomiting acut e March 03, 2025 3:30am Non-ST elevated myocardial infarction acute March 03, 2025 3:30am History of COPD chronic February 3:30am [facility] Work Phone: [phone] Discharge summary Author Wilfred Bryan [facility] Note Date/Time February 15, 2025 11:1 1am [facility] Medical Records Department [address] [place] [address] Emergency Department Summary 02/15/25 MR#: [id number] Acct: [id number] Name: ASHLEY GÓMEZ Rep #:[id number] : 1955 69 From: Wilfred Bryan MD [...] day. Additionally, sometimes she smokes as well. [facility] Medical History Wears dentures Wears glasses [...] none current occupational status: employed current occupation: [employer] Smoking Status: Current every day smoker tobacco [...] (Auto) 77.0 H Lymph % (Auto) 19.2 [place] % (Auto) 1.9 Eos % (Auto) 0.7 [...] 09:25 IMPRESSION: No acute process Reading Location: [facility] Management Discussion w/another healthcare provider: Hospitalist (Dr. [...] DO [Primary Care Provider] - Print Language: Greek What to do if you have Problems For any increased pain, shortness of breath, bleeding, nausea or vomiting, chestpain, or any unexpected problems, contact your Primary Care Provider. Call [facility] ([phone]) or report to the closest Emergency Room. Call 911 if necessary. 02/15/25 1111 <Electronically signed by Wilfred Bryan MD> Cosigner Signature (if applicable): CC: Dr. Danish Davila DO ~ Signed [facility] Work Phone: 1(142) 307-985706-14-2025 Discharge summary [facility] Medical Records Department [address] [place] [address] Emergency Department Summary 02/15/25 MR#: [id number] Acct: [id number] Name: ASHLEY GÓMEZ Rep #:[id number] : 1955 69 From: Wilfred Bryan MD [...] day. Additionally, sometimes she smokes as well. [facility] Medical History Wears dentures Wears glasses [...] none current occupational status: employed current occupation: [employer] Smoking Status: Current every day smoker tobacco [...] (Auto) 77.0 H Lymph % (Auto) 19.2 [place] % (Auto) 1.9 Eos % (Auto) 0.7 [...] 09:25 IMPRESSION: No acute process Reading Location: [facility] Management Discussion w/another healthcare provider: Hospitalist (Dr. [...] DO [Primary Care Provider] - Print Language: Greek What to do if you have Problems For any increased pain, shortness of breath, bleeding, nausea or vomiting, chestpain, or any unexpected problems, contact your Primary Care Provider. Call [facility] ([phone]) or report tothe closest Emergency Room. Call 911 if necessary. 02/15/25 1111 Cosigner Signature (if applicable): CC: Dr. Danish Davila DO ~ Signed [facility]06-14-2025 Radiology Diagnostic study note [facility] Imaging Services [address] [place] [address] Chest 1 View (Portable) MR#: [id number] Acct: [id number] Name: ASHLEY GÓMEZ Rep #: [id number] : 1955 F 69 From: Pet er Blanka VICK PCP: Dr. Danish Davila DO Status: REG ER Study:Chest 1 View (Portable) Date of Exam: 02/15/25 Exam# [id number] Ordering Dr: Wilfred Bryan MD PROCEDURE: CHEST 1 VIEW (PORTABLE) 02/15/2025 REASON FOR EXAM: SHORTNESS OF BREATH TECHNIQUE: Frontal view of the chest. FINDINGS: Hardware: None Heart: Normal size Lungs: Clear Bones: No aggressive Other: RAD/Chest 1 View (Portable) IMPRESSION: No acute process Reading Location[facility] CC: Dr. Wilfred Bryan MD; Dr. Danish Davila, DO ~ Proposal Director: Signed [facility]06-10-2025 Telephone encounter Note* Telephone Encounter - Mia Alvarez MA - 02/11/2025 9:02 AM EDT Patient advised and voiced understanding. [id number] Miscellaneous Notes* Telephone Encounter - Mia Alvarez [...] sent in. Please advise documented in this [facility]06-09-2025 Telephone encounter Note* Telephone Encounter - Mia Alvarez MA - 02/10/2025 5:42 PM EDT Called patient to relay provider message left voicemail to call office back. Mychart message sent to patient. Please relay message to patient. [facility] [id number] Miscellaneous Notes* Telephone Encounter - Mia Alvarez [...] sent in. Please advise documented in this [facility]06-09-2025 Note* Addendum Note - Juju Patton MA - 02/10/2025 3:52 PM EDTAddended by: JUJU PATTON on: 02/10/2025 03:52 PM Modules accepted: Orders [facility] [id number] Note* Addendum Note - Juju Patton MA - 02/10/2025 3:52 PM EDTAddended by: JUJU PATTON on: 02/10/2025 03:52 PM Modules accepted: Orders [facility] [id number] Note* Addendum Note - Juju Patton MA - 02/10/2025 3:52 PM EDTAddended by: JUJU PATTON on: 02/10/2025 03:52 PM Modules accepted: Orders [facility] [id number] Note* Addendum Note - Juju Patton MA - 02/10/2025 3:52 PM EDTAddended by: JUJU PATTON on: 02/10/2025 03:52 PM Modules accepted: Orders [facility] [id number] Note* Addendum Note - Juju Patton MA - 02/10/2025 3:52 PM EDTAddended by: JUJU PATTON on: 02/10/2025 03:52 PM Modules accepted: Orders [facility] [id number] Telephone encounter Note* Telephone Encounter - Dory [...] a new script sent in. Please advise [facility] [id number] Telephone encounter Note* Telephone Encounter - Juju Patton MA - 02/10/2025 10:47 AM EDT Recent Visits Date Type Provider Dept 11/12/24 Office Visit Siomara Estrada PA-C [facility] 02/22/24 Office Visit Gasper Nelson DO [facility] Showing recent visits within past 365 days [...] Most recent labs completed in chart? N/A [facility] [id number] Miscellaneous Notes* Telephone Encounter - Juju Patton MA - 02/10/2025 10:47 AM EDT Recent Visits Date Type Provider Dept 11/12/24 Office Visit Siomara Estrada PA-C [facility] 02/22/24 Office Visit Gasper Nelson DO [facility] Showing recent visits within past 365 days [...] completed in chart? N/A documented in this [facility]04-11-2025 Telephone encounter Note* Telephone Encounter - Sara Munoz LPN - 12/13/2024 8:24 AM EDT Recent Visits Date Type Provider Dept 11/12/24 Office Visit Siomara Estrada PA-C [facility] 02/22/24 Office Visit Gasper Nelson DO [facility] Showing recent visits within past 365 days [...] CHOLHDLCRATI 4.2 01/13/2023 NONHDLCHOLES 174 (H) 01/13/2023 [facility] [id number] Miscellaneous Notes* Telephone Encounter - Sara Munoz LPN - 12/13/2024 8:24 AM EDT Recent Visits Date Type Provider Dept 11/12/24 Office Visit Siomara Estrada PA-C [facility] 02/22/24 Office Visit Gasper Nelson DO [facility] Showing recent visits within past 365 days [...] NONHDLCHOLES 174 (H) 01/13/2023 documented in this encounterSKettering [id number] NoteOutreach to patient to provide information on how to enroll in silver sneakers and she requested refill of Trazadone for sleep issues last filled in 06/28 for 90 days, last OV 11/12/24[facility]03-31-2025 Telephone encounter Note* Telephone Encounter - Brissa Warner RN - 12/02/2024 1:06 PM EDT Outreach to patient to provide information on how to enroll in [employer] sneakers and she requested refill of Trazadone for sleep issues last filled in 06/28 for 90 days, last OV 11/12/24 [facility] HospitalZtynwi27-87-0944 Miscellaneous Notes* Telephone Encounter - Brissa Warner RN - 12/02/2024 1:06 PM EDT Outreach to patient to provide information on how to enroll in silver sneakers and she requested refill of Trazadone for sleep issues last filled in 06/28 for 90 days, last OV 11/12/24 documented in this encounterSKettering [id number] Evaluation + Plan note* Assessment & Plan [...] as her levels have been adequately controlled [facility] [id number] Miscellaneous Notes* Assessment & Plan Note - [...] encouraged smoking cessation. documented in this encounterSKettering [id number] Evaluation + Plan note* Assessment & Plan Note - Siomara Estrada PA-C - 11/12/2024 9:12 AM EDTAssociated Problem(s): GERD (gastroesophageal reflux disease) - Chronic stable she will continue on esomeprazole 40 mg daily. [facility] [id number] Evaluation + Plan note* Assessment & Plan [...] wheezing and congestion strongly encouraged smoking cessation. [facility] HospitalOmlubu36-66-4845 History of Present illness Narrative* Siomara Estrada PA-C - 11/12/2024 8:40 AM EDT Images from the original note were not included. [facility] [address] [facility] [address] Dept: [phone] Dept Chief Complaint: Ashley Gómez is an [...] this issue and continues to work at [employer]. Would like to get involved with silver sneakers. 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 A preventive dental visit is recommended every 6 months. Try to get at least 150 minutes of exercise per week or 10,000 steps per day on a pedometer. You need 1200-1500mg of calcium and [id number] international units of vitamin D per day. [...] bicycle or a motorcycle documented in this [facility]02-27-2025 History of Present illness Narrative* Gasper Nelson DO - 10/31/2024 12:00 PM EST Images from the original note were not included. [facility] - [address] [facility] [address] Dept: [phone] Dept Loc: [phone] Patient was identified and seen today via [...] stated that they are currently in the [facility]. If the patient is a minor, [...] DO 10/31/2024 12:20 PM documented in this [facility]02-27-2025 Telephone encounter Note* Telephone Encounter - [...] not coughing Protocols used: Cough - Acute Thn-Wrzrmdrrwx-RXNLI-AH [facility] HospitalCmciwq79-41-4188 Miscellaneous Notes* Telephone Encounter - Michell Chin [...] not coughing Protocols used: Cough - Acute Jke-Yhioftgudc-INXVV-AH documented in this encounterSKettering HealthDoxrcc92-08-9204 Telephone encounter Note* Telephone Encounter - Neeta Villeda RN - 10/01/2024 1:57 PM EST Received signed receipt of certified letter sent to patient. Scanned to media in chart. [facility] HospitalRkwgof57-71-7288 Miscellaneous Notes* Telephone Encounter - Neeta Villeda [...] and assist patient with scheduling. She prefers [place] for imaging location and is available on [...] the recommended 3-month follow- up CT chest. [facility] central scheduling and provider office have made multiple attempts to contact patient to assist with scheduling imaging. Navigator mailed patient lung screening follow-up reminder letter and lung nodule patient information. If patient does not call in to schedule imaging, navigator will plan to send certified letter. documented in this [facility]01-27-2025 Telephone encounter Note* Telephone Encounter - Mia Alvarez MA - 09/30/2024 11:56 AM EST Recent Visits Date Type Provider Dept 02/22/24 Office Visit Gasper Nelson DO [facility] Showing recent visits within past 365 days and meeting all other requirements Future Appointments Date Type Provider Dept 11/12/24 Appointment Gasper Nelson DO [facility] Showing future appointments within next 90 [...] recent labs completed in chart? N/A None [facility] HospitalTctxgg35-47-1149 Miscellaneous Notes* Telephone Encounter - Mia Alvarez MA - 09/30/2024 11:56 AM EST Recent Visits Date Type Provider Dept 02/22/24 Office Visit Gasper Nelson DO [facility] Showing recent visits within past 365 days and meeting all other requirements Future Appointments Date Type Provider Dept 11/12/24 Appointment Gasper Nelson DO [facility] Showing future appointments within [...] in chart? N/A None documented in this [facility]01-13-2025 Telephone encounter Note* Telephone Encounter - Sara Munoz LPN - 09/16/2024 2:12 PM EST Recent Visits Date Type Provider Dept 02/22/24 Office Visit DO Gillian Bai [facility] Showing recent visits within past 365 days and meeting all other requirements Future Appointments Date Type Provider Dept 09/30/24 Appointment DO Gillian Bai [facility] Showing future appointments within next 90 [...] CHOLHDLCRATI 4.2 01/13/2023 NONHDLCHOLES 174 (H) 01/13/2023 [facility] HospitalPxfsob72-84-2316 Miscellaneous Notes* Telephone Encounter - Sara Munoz LPN - 09/16/2024 2:12 PM EST Recent Visits Date Type Provider Dept 02/22/24 Office Visit Gasper Nelson DO [facility] Showing recent visits within past 365 days and meeting all other requirements Future Appointments Date Type Provider Dept 09/30/24 Appointment Gasper Nelson DO [facility] Showing future appointments within [...] NONHDLCHOLES 174 (H) 01/13/2023 documented in this encounterSKettering HealthQnyjau65-28-6374 Telephone encounter Note* Telephone Encounter - Mia Alvarez MA - 07/24/2024 11:42 AM EST Recent Visits Date Type Provider Dept 02/22/24 Office Visit Gasper Nelson, DO [facility] 07/31/23 Office Visit Gasper Maggie Argentina DO [facility] Showing recent visits within past 365 days and meeting all other requirements Future Appointments Date Type Provider Dept 08/21/24 Appointment Gasper Maggie DO [facility] Showing future appointments within [...] CHOLHDLCRATI 4.2 01/13/2023 NONHDLCHOLES 174 (H) 01/13/2023 [facility] HospitalPgmksb11-50-2886 Miscellaneous Notes* Telephone Encounter - Mia Alvarez MA - 07/24/2024 11:42 AM EST Recent Visits Date Type Provider Dept 02/22/24 Office Visit Gasper Nelson DO [facility] 07/31/23 Office Visit Gasper Nelson DO [facility] Showing recent visits within past 365 days and meeting all other requirements Future Appointments Date Type Provider Dept 08/21/24 Appointment Gasper Nelson DO [facility] Showing future appointments within next 90 [...] NONHDLCHOLES 174 (H) 01/13/2023 documented in this [facility]10-25-2024 Telephone encounter Note* Telephone Encounter - [...] to get her scheduled. Thank you Contact [facility] HospitalPnplbo21-68-0204 Miscellaneous Notes* Telephone Encounter - Helen Jennings - 06/28/2024 3:26 PM EDT Reason for call: Pari I am calling as the CT Lung Screening follow up low dose order for 06/20/24 was cancelled by Farida Winn Due to being unable to contact the patient. If the provider would still like the patient to have this completed either the old order needs to be un cancelled or a new order needs to be placed and then I can reach out to the patient to get her scheduled. Thank you Contact documented in this encounterSKettering HealthOfjwja40-01-3758 Telephone encounter Note* Telephone Encounter - Kianna Stevenson - 06/28/2024 8:47 AM EDT No auth needed. Faxed orders to [facility] for pt to be sched - [facility] will sched/advise pt. My chart mess sent to patient with info to sched. [facility] HospitalMwqege44-05-1900 Miscellaneous Notes* Telephone Encounter - Kianna Stevenson [...] and assist patient with scheduling. She prefers [place] for imaging location and is available on [...] the recommended 3-month follow- up CT chest. [facility] central scheduling and provider office have made multiple attempts to contact patient to assist with scheduling imaging. Navigator mailed patient lung screening follow-up reminder letter and lung nodule patient information. If patient does not call in to schedule imaging, navigator will plan to send certified letter. documented in this encounterSKettering HealthQsdoov11-27-7256 Telephone encounter Note* Telephone Encounter - Marycruz Mazariegos MA - 06/27/2024 4:27 PM EDT Vincent Perez, It looks like the patient navigator has done all that she can do. So it looks like all avenues havebeen exhausted to try and reach this patient to schedule. [facility] HospitalKhpqlu72-99-5188 Miscellaneous Notes* Telephone Encounter - Marycruz Mazariegos [...] and assist patient with scheduling. She prefers [place] for imaging location and is available on [...] the recommended 3-month follow- up CT chest. [facility] central scheduling and provider office have made multiple attempts to contact patient to assist with scheduling imaging. Navigator mailed patient lung screening follow-up reminder letter and lung nodule patient information. If patient does not call in to schedule imaging, navigator will plan to send certified letter. documented in this encounterSKettering HealthKfwmoa87-47-9913 Telephone encounter Note* Telephone Encounter - Kianna Stevenson - 06/27/2024 2:02 PM EDT To April to follow up [facility] HospitalTeobun41-08-6427 Telephone encounter Note* Telephone Encounter - Joann Jane RCP - 06/27/2024 9:43 AM EDT Mrs. Gómez called in after receiving certified letter. She would like to return to complete the recommended lung screening 3 month follow-up imaging previously ordered by Dr. Nelson. Will send message to provider office to place new referral for imaging and assist patient with scheduling. She prefers [place] for imaging location and is available on Monday the if there are any appointments available. [facility] HospitalBxjyxv78-08-2539 NotePatient still has not completed the recommended lung screening follow-up imaging. Navigator mailed certified letter, lung nodule education materials, and offered to assist with overcoming barriers to care.[facility]10-17-2024 Telephone encounter Note* Telephone Encounter - Joann Jane RCP - 06/20/2024 2:31 PM EDT Patient still has not completed the recommended lung screening follow-up imaging. Navigator mailed certified letter, lung nodule education materials, and offered to assist with overcoming barriers to care. [facility] HospitalFgmdyo90-02-1319 Miscellaneous Notes* Telephone Encounter - Joann Jane [...] the recommended 3-month follow- up CT chest. [facility] central scheduling and provider office have made multiple attempts to contact patient to assist with scheduling imaging. Navigator mailed patient lung screening follow-up reminder letter and lung nodule patient information. If patient does not call in to schedule imaging, navigator will plan to send certified letter. documented in this encounterSKettering HealthFwpiaz50-57-1107 Telephone encounter Note* Telephone Encounter - Sara Munoz LPN - 06/11/2024 5:05 PM EDT RX loaded Next ov 08/21/24 [facility] HospitalNjfhhp01-85-2541 Miscellaneous Notes* Telephone Encounter - Sara Munoz [...] up the medication: Yes documented in this [facility]10-08-2024 Telephone encounter Note* Telephone Encounter - [...] prior to picking up the medication: Yes [facility] HospitalOpvrza94-27-8751 [facility] Medical Records Department [address] [place] [address] History Physical Exam 04/29/24 0756 MR#: [id number] Acct: [id number] Name: ASHLEY GÓMEZ Rep #: [id number] : 1955 68 From: Slim Friend DO PCP: Dr. Danish Davila DO Status:[facility] Location: [address] - General General Date of Admission: [...] is in fairly good health. [facility] Medical History (Updated 04/26/24 @ 14:43 by [...] none current occupational status: employed current occupation: [employer] Smoking Status: Former smoker Tobacco: How [...] CC: Dr. Danish Davila DO; Slim Weiss, SignedWSouthern [facility]08-20-2024 NoteMs. Gómez had a Lung RADS [address] scan on 12/18/2023. Her primary care provider placed a referral for the recommended 3-month follow-up CT chest. [facility] central scheduling and provider office have made multiple attempts to contact patient to assist with scheduling imaging. Navigator mailed patient lung screening follow-up reminder letter and lung nodule patient information. If patient does not call in to schedule imaging, navigator will plan to send certified letter.[facility]08-20-2024 Telephone encounter Note* Telephone Encounter - Joann Jane RCP - 04/23/2024 1:58 PM EDT Ms. Gómez had a Lung RADS [address] scan on 12/18/2023. Her primary care provider placed a referral for the recommended 3-month follow- up CT chest. [facility] central scheduling and provider office have made multiple attempts to contact patient to assist with scheduling imaging. Navigator mailed patient lung screening follow-up reminder letter and lung nodule patient information. If patient does not call in to schedule imaging, navigator will plan to send certified letter. [facility] HospitalUgxuvg11-47-4372 Telephone encounter Note* Telephone Encounter - Marycruz Mazariegos MA - 04/17/2024 7:37 AM EDT Recent Visits Date Type Provider Dept 02/22/24 Office Visit Gasper Nelson DO [facility] 07/31/23 Office Visit Gasper Nelson DO [facility] Showing recent visits within past 365 days [...] medications from any other provider? No None [facility] HospitalDlgdgs51-10-7199 Miscellaneous Notes* Telephone Encounter - Marycruz Mazariegos MA - 04/17/2024 7:37 AM EDT Recent Visits Date Type Provider Dept 02/22/24 Office Visit Gasper Maggie Argentina, DO [facility] 07/31/23 Office Visit Gasper Maggie Argentina, DO [facility] Showing recent visits within [...] provider? No None documented in this encounterSKettering HealthZtahja25-31-7093 Telephone encounter Note* Telephone Encounter - Farida Mary - 04/12/2024 7:31 AM EDT Orders cancelled [facility] HospitalHnaatd95-72-3467 Miscellaneous Notes* Telephone Encounter - Farida Mary - 04/12/2024 7:31 AM EDT Orders cancelled * Telephone Encounter - Rosa Rodas - 04/11/2024 4:07 PM EDT We have been unable to reach your patient to schedule their testing. Test Name: CT lung screening follow up, PFT and Mammo 1st Attempt: 03/30/24 2nd Attempt: 04/11/24 Neto Dawson Central Scheduling documented in this [facility]08-08-2024 Telephone encounter Note* Telephone Encounter - Rosa Rodas - 04/11/2024 4:07 PM EDT We have been unable to reach your patient to schedule their testing. Test Name: CT lung screening follow up, PFT and Mammo 1st Attempt: 03/30/24 2nd Attempt: 04/11/24 Jae [facility] Central Scheduling [facility] HospitalVupmfv89-56-6837 Miscellaneous Notes* Telephone Encounter - Rosa Rodas - 04/11/2024 4:07 PM EDT We have been unable to reach your patient to schedule their testing. Test Name: CT lung screening follow up, PFT and Mammo 1st Attempt: 03/30/24 2nd Attempt: 04/11/24 Thanks, [facility] Central Scheduling documented in this [facility]06-20-2024 Telephone encounter Note* Telephone Encounter - Kianna Stevenson - 02/22/2024 2:26 PM EDT Referral / orders pended for dx and doctor's signature [facility] HospitalCzzimy24-74-5143 Miscellaneous Notes* Telephone Encounter - Kianna Stevenson - 02/22/2024 2:26 PM EDT Referral / orders pended for dx and doctor's signature documented in this [facility]06-20-2024 History of Present illness Narrative* Gasper Nelson DO - 02/22/2024 1:00 PM EDT Images from the original note were not included. [facility] [address] [facility] [address] [facility] [address] Visit type: Established Patient [...] capsule TAKE 1 CAPSULE EVERY MORNING BEFORE [id number] capsule 1 [DISCONTINUED] simvastatin (Zocor) 80 MG [...] or axillary adenopathy documented in this encounterSKettering HealthUdrsvu69-81-6058 Telephone encounter Note* Telephone Encounter - Fawn Hassan MA - 02/09/2024 9:30 AM EDT Pt scheduled with Dr Nelson 02/22/24 [facility] HospitalHhruen38-21-1622 Miscellaneous Notes* Telephone Encounter - Fawn Hassan [...] Name of caller: Isauro Contact phone number: [phone] Relationship to Patient: Patient Provider: Dr. Nelson Practice: [facility] Chief Complaint/Reason for Call: Pt Pt had to reschedule appointment. Please contact pt if appointment is not soon enough, pt is concerned FYI Best time of day caller can be reached: Any Patient advised that office/PCP has 24-48 business hours to return their call: No documented in this [facility]06-03-2024 Telephone encounter Note* Telephone Encounter - Fawn Hassan MA - 02/05/2024 11:02 AM EDT Left message for patient to return call to the office to get scheduled please schedule patient either February [address] Argentina dawson. [facility] HospitalWppnzq85-37-7990 Miscellaneous Notes* Telephone Encounter - Fawn Hassan MA - 02/05/2024 11:02 AM EDT Left message for patient to return call to the office to get scheduled please schedule patient either February [address] Argentina dawson. * Telephone Encounter - Ramila Lee - 02/05/2024 9:02 AM EDT Name of caller: Isauro Contact phone number: [phone] Relationship to Patient: Patient Provider: Dr. Nelson Practice: [facility] Chief Complaint/Reason for Call: Pt Pt had to reschedule appointment. Please contact pt if appointment is not soon enough, pt is concerned FYI Best time of day caller can be reached: Any Patient advised that office/PCP has 24-48 business hours to return their call: No documented in this [facility]06-03-2024 Telephone encounter Note* Telephone Encounter - Ramila Lee - 02/05/2024 9:02 AM EDT Name of caller: Isauro Contact phone number: [phone] Relationship to Patient: Patient Provider: Dr. Nelson Practice: [facility] Chief Complaint/Reason for Call: Pt Pt had to reschedule appointment. Please contact pt if appointment is not soon enough, pt is concerned FYI Best time of day caller can be reached: Any Patient advised that office/PCP has 24-48 business hours to return their call: No [facility] HospitalGluabf12-31-9512 Telephone encounter Note* Telephone Encounter - Juju PattonMERISSA - 01/02/2024 10:56 AM EDT Pharmacy updated. [facility] HospitalGrnnms16-80-2942 Miscellaneous Notes* Telephone Encounter - Jujuissac Patton MA - 01/02/2024 10:56 AM EDT Pharmacy updated. * Telephone Encounter - Mary Zavaleta - 01/02/2024 10:46 AM EDT Name of caller: Isauro Contact phone number: [phone] Relationship to Patient: patient Provider: Puneetarleen Practice: [facility] Chief Complaint/Reason for Call: Pt called to report that her antibiotic and Prednisone were not sent to her local [facility] as requested - they were accidentally sent to [facility] by mistake. Please send to [facility] on [facility] in [place] listed in her chart instead. Please call once has been sent over. Best time of day caller can be reached: Any Patient advised that office/PCP has 24-48 business hours to return their call: No documented in this [facility]04-30-2024 Telephone encounter Note* Telephone Encounter - Mary Zavaleta - 01/02/2024 10:46 AM EDT Name of caller: Isauro Contact phone number: [phone] Relationship to Patient: patient Provider: Puneetarleen Practice: [facility] Chief Complaint/Reason for Call: Pt called to report that her antibiotic and Prednisone were not sent to her local [facility] as requested - they were accidentally sent to [facility] by mistake. Please send to [facility] on [address] in [place] listed in her chart instead. Please call once has been sent over. Best time of day caller can be reached: Any Patient advised that office/PCP has 24-48 business hours to return their call: No [facility] HospitalVcjuhy44-13-8427 Telephone encounter Note* Telephone Encounter - Nelly Villa LPN - 12/22/2023 11:56 AM EDT [place]ENE - called to relay message to pt that she can schedule out into February [place] [id number] Miscellaneous Notes* Telephone Encounter - Nelly Villa LPN - 12/22/2023 11:56 AM EDT ADILENE - called to relay message to pt that she can schedule out into February * Telephone Encounter - Agnes Cedillo MA - 12/22/2023 11:20 AM EDT noted * Telephone Encounter - Nigel Caicedo - 12/22/2023 8:31 AM EDT Name of caller: Isauro Contact phone number: [phone] (work number) Relationship to Patient: patient Provider: Argentina Practice: [facility] Chief Complaint/Reason for Call: Patient calling back [...] their call: Yes documented in this encounterSKettering HealthPurtgo94-48-0634 Telephone encounter Note* Telephone Encounter - Agnes Cedillo MA - 12/22/2023 11:20 AM EDT noted [place] [id number] Telephone encounter Note* Telephone Encounter - Nigel Caicedo - 12/22/2023 8:31 AM EDT Name of caller: Isauro Contact phone number: [phone] (work number) Relationship to Patient: patient Provider: Argentina Practice: [facility] Chief Complaint/Reason for Call: Patient calling back [...] business hours to return their call: Yes [place] [id number] Telephone encounter Note* Telephone Encounter - Julian Dan RN - 12/21/2023 5:49 PM EDT duplicate [place] [id number] Miscellaneous Notes* Telephone Encounter - Julian Dan RN - 12/21/2023 5:49 PM EDT duplicate documented in this [facility]04-18-2024 Telephone encounter Note* Telephone Encounter - Heather [...] prior to picking up the medication: Yes [facility] HospitalQnyqje84-49-4825 Miscellaneous Notes* Telephone Encounter - Heather Jean [...] up the medication: Yes documented in this encounterSKettering HealthDzjnor12-94-7935 Telephone encounter Note* Telephone Encounter - Agnes Cedillo MA - 12/18/2023 10:22 AM EDT Recent Visits Date Type Provider Dept 07/31/23 Office Visit Gasper Nelson DO [facility] 01/13/23 Office Visit Gasper Nelson DO [facility] [place] Showing recent visits within past 365 days and meeting all other requirements Future Appointments Date Type Provider Dept 02/05/24 Appointment Gasper Nelson DO [facility] Showing future appointments within next 90 days [...] Most recent labs completed in chart? N/A [place] [id number] Miscellaneous Notes* Telephone Encounter - Agnes Cedillo MA - 12/18/2023 10:22 AM EDT Recent Visits Date Type Provider Dept 07/31/23 Office Visit Gasper Nelson DO [facility] 01/13/23 Office Visit Gasper Nelson DO [facility] [place] [facility] Showing recent visits within past 365 days and meeting all other requirements Future Appointments Date Type Provider Dept 02/05/24 Appointment Gasper Nelson DO [facility] Showing future appointments within [...] CAPSULE BY MOUTH IN THE MORNING. Provider: Gsaper Nelson DO Verified pharmacy: yes Verified day(s) supplied: yes Verified refill(s) needed (previous prescription showing no refills in chart): No - unable to verify prescription refills in chart Have you received any controlled medications from any other provider? No Overdue for visit: No If yes - patient scheduled? Yes Most recent labs completed in chart? N/A documented in this [facility]11-28-2023 Telephone encounter Note* Telephone Encounter - Kianna Stevenson - 08/01/2023 8:22 AM EST Orders pended for doctor's signature [facility] HospitalJhbicv64-04-9612 Miscellaneous Notes* Telephone Encounter - Kianna Stevenson - 08/01/2023 8:22 AM EST Orders pended for doctor's signature * Telephone Encounter - Kianna Stevenson - 08/01/2023 8:15 AM EST ----- Message from Gasper Nelson DO sent at 07/31/2023 4:06 PM EST ----- Schedule LDCT for pt to be done in 11/2023 documented in this [facility]11-28-2023 Telephone encounter Note* Telephone Encounter - Kianna Stevenson - 08/01/2023 8:15 AM EST ----- Message from Gasper Nelson DO sent at 07/31/2023 4:06 PM EST ----- Schedule LDCT for pt to be done in 11/2023 [facility] HospitalGfhujl16-84-5605 History of Present illness Narrative* Gasper Nelson DO - 07/31/2023 3:30 PM EST Images from the original note were not included. [facility] [address] [place] [address] [address] [facility] [address] Visit type: Established Patient [...] work a fair number hours at the [employer] in [place] doing various jobs. Review of Systems denies [...] are pink without edema documented in this [facility]11-27-2023 History of Present illness Narrative* Gasper Nelson DO - 07/31/2023 3:30 PM EST Images from the original note were not included. 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 Review of Systems denies [...] are pink without edema documented in this [facility]11-27-2023 Miscellaneous Notes* Addendum Note - Rosalind Quintero - 07/31/2023 3:30 PM ESTAddended by: ROSALIND QUINTERO on: 12/18/2023 08:32 AM Modules accepted: Orders documented in this [place] [id number] Note* Addendum Note - Rosalind Quintero - 07/31/2023 3:30 PM ESTAddended by: ROSALIND QUINTERO on: 12/18/2023 08:32 AM Modules accepted: Orders [place] [id number] Telephone encounter Note* Telephone Encounter - Sara Munoz LPN - 03/14/2023 11:39 AM EDT Signed Handicap lauritaard signed and mailed to patient per their request. [facility] HospitalEmixub95-09-3995 Miscellaneous Notes* Telephone Encounter - Sara Munoz LPN - 03/14/2023 11:39 AM EDT Signed Handicap placard signed and mailed to patient per their request. * Telephone Encounter - Sara Munoz LPN - 03/14/2023 9:13 AM EDT Rx loaded * Telephone Encounter - Shaista Gramajo - 03/14/2023 9:07 AM EDT Name of caller: Isauro Contact phone number: [phone] Relationship to Patient: patient Provider: [place] Practice: [...] their call: Yes documented in this encounterSKettering [id number] Telephone encounter Note* Telephone Encounter - Sara Munoz LPN - 03/14/2023 9:13 AM EDT Rx loaded [facility] HospitalGzbmcq95-23-9779 Telephone encounter Note* Telephone Encounter - Shaista Gramajo - 03/14/2023 9:07 AM EDT Name of caller: Isauro Contact phone number: [phone] Relationship to Patient: patient Provider: [place] Practice: [...] business hours to return their call: Yes [facility] HospitalXkdpdf47-66-7407 Telephone encounter Note* Telephone Encounter - Kianna Stevenson - 03/02/2023 11:20 AM EDT Orders closed [facility] HospitalJvdhhp23-24-6588 Miscellaneous Notes* Telephone Encounter - Kianna Stevenson [...] be cancelled? * Telephone Encounter - Margarita Robert - 02/27/2023 1:33 PM EDT Patient called in and scheduled her CT Lung screening. The diagnosis code of F17.200 failed for Medical Necessity. Please correct diagnosis code on order. Thank you documented in this encounterSKettering HealthTzwebx87-40-0726 Telephone encounter Note* Telephone Encounter - Sara [...] that is stated to get a CT. [facility] HospitalTgpgqj29-66-6462 Telephone encounter Note* Telephone Encounter - Sara Munoz LPN - 02/28/2023 4:16 PM EDT Placed call to patient to discuss provider questions of: Call the patient and specifically ask her how many cigarettes she smokes on the average per day andhow long she has been doing it. Message left on voicemail to return call. [facility] HospitalPdxpcf53-80-1673 Miscellaneous Notes* Telephone Encounter - Sara Munoz [...] on order. Thank you documented in this [facility]06-27-2023 Telephone encounter Note* Telephone Encounter - Kianna Stevenson - 02/28/2023 9:33 AM EDT Pt doesn't fit criteria for a CT-Lung screen. Pt needs to have a 20 year smoking history of 1-pack a day or 15 year history with 2-pack a day. Can orders be cancelled? [facility] HospitalJasatt14-89-6925 Telephone encounter Note* Telephone Encounter - Margarita Jones - 02/27/2023 1:33 PM EDT Patient called in and scheduled her CT Lung screening. The diagnosis code of F17.200 failed for Medical Necessity. Please correct diagnosis code on order. Thank you [facility] HospitalLowitb08-31-5642 Miscellaneous Notes* Telephone Encounter - Margarita Jones - 02/27/2023 1:33 PM EDT Patient called in and scheduled her CT Lung screening. The diagnosis code of F17.200 failed for Medical Necessity. Please correct diagnosis code on order. Thank you documented in this [facility]05-12-2023 Telephone encounter Note* Telephone Encounter - Kianna Elva - 01/13/2023 10:29 AM EDT Orders pended for doctor's signature [facility] HospitalPrqmad72-75-2031 Miscellaneous Notes* Telephone Encounter - Kianna Elva - 01/13/2023 10:29 AM EDT Orders pended for doctor's signature documented in this encounterSKettering HealthJlbetr10-60-7497 History of Present illness Narrative* Gasper Serrano DO [place] - 01/13/2023 9:30 AM EDT Images from the original note were not included. [facility] [address] [facility] [address] Visit type: Established Patient Reason for Visit: [...] of hips and knees. documented in this [facility]03-13-2023 History of Present illness Narrative* Siomara Estrada PA-C - 11/14/2022 11:40 AM EDT Images from the original note were not included. [facility] [address] [facility] [address] Dept: [phone] Dept Loc: [phone] Visit type: Established Patient Reason for Visit: Cough (X Monday ) and Sore Throat Assessment and Plan 1. 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 documented in this encounterSKettering HealthYrkkqf61-68-0213 Telephone encounter Note* Telephone Encounter - Sade Esteban RN - 11/14/2022 9:51 AM EDT Triage message reviewed with clinical staff. Patient appointment confirmed. Siomara will assess at appointment visit. [facility] HospitalVjruom39-41-7124 Miscellaneous Notes* Telephone Encounter - Sade Esteban [...] (e.g., travel history, exposures) no Protocols used: Jcyew-BCNTU-ZD documented in this [facility]03-13-2023 Telephone encounter Note* Telephone Encounter - [...] (e.g., travel history, exposures) no Protocols used: Sjego-GWVSS-CW [facility] HospitalTyquyg28-29-5145 Telephone encounter Note* Telephone Encounter - Sara Munoz LPN - 10/20/2022 4:35 PM EST X-ray faxed to [facility] per patient request. Also called patient and let her know it was faxed. [facility] HospitalQpztyh39-85-5146 Miscellaneous Notes* Telephone Encounter - Sara Munoz LPN - 10/20/2022 4:35 PM EST X-ray faxed to [facility] per patient request. Also called patient and let her know it was faxed. * Telephone Encounter - Shereen Stevens - 10/20/2022 3:06 PM EST Name of caller: Isauro Contact phone number: [phone] Relationship to Patient: patient Provider: Practice: [facility] [...] return their call: no documented in this encounterSKettering HealthGctqui08-62-6982 Telephone encounter Note* Telephone Encounter - Shereen Stevens - 10/20/2022 3:06 PM EST Name of caller: Isauro Contact phone number: [phone] Relationship to Patient: patient Provider: Practice: [facility] Chief Complaint/Reason for Call: Patient calling and states [facility] did not get her ordersfor the x-ray. Patient requesting it be re sent. Patient did not have a fax number. Best time of day caller can be reached: any Patient advised that office/PCP has 24-48 business hours to return their call: no [facility] Kfbsjz59-80-0792 Telephone encounter Note* Telephone Encounter - Danish Davila DO - 10/18/2022 5:29 PM EST I called this patient regarding her chest x-ray. She states she went to [facility] but they did not have the order. According to the record the order was faxed. Patient will call the hospital and see if now have the order. [facility] [id number] Miscellaneous Notes* Telephone Encounter - Danish Davila DO - 10/18/2022 5:29 PM EST I called this patient regarding her chest x-ray. She states she went to [facility] but they did not have the order. According to the record the order was faxed. Patient will call the hospital and see if now have the order. * Telephone Encounter - Sade Esteban RN - 10/17/2022 12:06 PM EST Faxed * Telephone Encounter - Justin Hoover - 10/17/2022 12:00 PM EST Name of caller: Shayy Contact phone number: [phone] Relationship to Patient: [facility] Provider: Dr. Davila Practice: [facility] Chief Complaint/Reason for Call: Shayy states the patient is currently at [facility] trying to complete her 10/03/22 XR Chest, [...] return their call: No documented in this [facility]02-13-2023 Telephone encounter Note* Telephone Encounter - Sade Esteban RN - 10/17/2022 12:06 PM EST Faxed [facility] HospitalPnhgyh23-94-2823 Telephone encounter Note* Telephone Encounter - Justin Hoover - 10/17/2022 12:00 PM EST Name of caller: Shayy Contact phone number: [phone] Relationship to Patient: [facility] Provider: Dr. Davila Practice: [facility] Chief Complaint/Reason for Call: Shayy states the patient is currently at [facility] trying to complete her 10/03/22 XR Chest, [...] business hours to return their call: No [facility] HospitalKxgnww21-73-0111 Telephone encounter Note* Telephone Encounter - Danish [...] the emergency room. She is not interested. [facility] HospitalQbiezg04-40-1658 Miscellaneous Notes* Telephone Encounter - Danish Davila [...] She is not interested. documented in this encounterSKettering HealthVbekmd60-74-3616 History of Present illness Narrative* Danish Davila DO - 10/03/2022 8:30 AM EST Images from the original note were not included. [address] [address] Chief Complaint: Ashley Gómez is an 67 y.o. female here for an annual wellness visit. 67-year-old female with a history of COPD, anxiety, depression and hypercholesterolemia presents tothe office to have a Medicare annual evaluation. [...] correction 20/20 20/25 20/20 documented in this [facility] HealthDis[facility] summary Author Wilfred Bryan [facility] Note Date/Time February 15, 2025 11:1 1am [facility] Medical Records Department [address] [place] [address] Emergency Department Summary 02/15/25 MR#: [id number] Acct: [id number] Name: ASHLEY GÓMEZ Rep #:[id number] : 1955 69 From: Wilfred Bryan MD [...] day. Additionally, sometimes she smokes as well. [facility] Medical History Wears dentures Wears glasses [...] none current occupational status: employed current occupation: [employer] Smoking Status: Current every day smoker [...] (Auto) 77.0 H Lymph % (Auto) 19.2 [place] % (Auto) 1.9 Eos % (Auto) 0.7 [...] 09:25 IMPRESSION: No acute process Reading [facility] Management Discussion w/another healthcare provider: [...] DO [Primary Care Provider] - Print Language: Greek What to do if you have Problems For any increased pain, shortness of breath, bleeding, nausea or vomiting, chestpain, or any unexpected problems, contact your Primary Care Provider. Call [facility] ([phone]) or report to the closest Emergency Room. Call 911 if necessary. 02/15/25 1111 <Electronically signed by Wilfred Bryan MD> Cosigner Signature (if applicable): CC: Dr. Dainsh Davila DO ~ Signed [facility] Work Phone: Discharge summary Author Bunny Chambersridgeview medical centerstacey [facility] Note Date/Time February 17, 2025 10:5 9am [facility] Medical Records Department [address] [place] [address] Instructions for Home/Discharge Instructions 02/17/25 1052 MR#: [id number] Acct: [id number] Name: ASHLEY GÓMEZ Rep #:[id number] : 1955 69 From: Bunny Avilez DO [...] CC: Dr. Danish Davila DO ~ Signed [facility] Work Phone: evaluation note* Diagnosis Menopause Symptomatic menopausal or female climacteric states documented in this encounter [facility] Work Phone: Evaluation noteNo assessment information available [facility] Work Phone: Evaluation note* Diagnosis Chronic obstructive pulmonary disease, unspecified COPD type (HCC)- Primary Hypercholesterolemia Pure hypercholesterolemia Gastroesophageal reflux disease without esophagitis Esophageal reflux Smoker Tobacco use disorder Depression, unspecified depression type documented in this encounter [facility] note* Diagnosis Smoker Tobacco use disorder documented in this encounter [facility] note* Diagnosis Chronic obstructive pulmonary disease, unspecified COPD type (HCC)- Primary documented in this encounter [facility] note* Diagnosis Chronic obstructive pulmonary disease, unspecified COPD type (HCC)- Primary Depression, unspecified depression type Gastroesophageal reflux disease without esophagitis Esophageal reflux Hypercholesterolemia Pure hypercholesterolemia documented in this encounter [facility] note* Diagnosis Moderate smoker (20 or less per day)- Primary Tobacco use disorder Smoker Tobacco use disorder [facility] Diagnosis Chronic obstructive pulmonary disease, unspecified COPD type (HCC)- Primary Depression, unspecified depression type Gastroesophageal reflux disease without esophagitis Esophageal reflux Hypercholesterolemia Pure hypercholesterolemia [facility]* Diagnosis Smoker Tobacco use disorder Moderate smoker (20 or less per day) Tobacco use disorder [facility]* Diagnosis COPD with acute exacerbation (HCC) Lower resp. tract infection Other diseases of respiratory system, not elsewhere classified [facility]* Diagnosis Chronic obstructive pulmonary [...] of gastrointestinal tract [facility]* Diagnosis Abnormal CT scan of lung Smoker Tobacco use disorder [facility]* Diagnosis Medicare annual wellness visit, subsequent- Primary Cough, unspecified type Chronic obstructive pulmonary disease, unspecified COPD type (HCC) Anxiety Anxiety state, unspecified Depression, unspecified depression type Hypercholesterolemia Pure hypercholesterolemia Mammogram declined Colonoscopy refused [facility]* Diagnosis COPD with acute exacerbation (CMS/HCC) (HCC)- Primary Lower resp. tract infection Other diseases of respiratory system, not elsewhere classified Smoking Tobacco use disorder [facility]* Diagnosis Chronic obstructive pulmonary disease with acute exacerbation (HCC)- Primary Influenza Influenza with other respiratory manifestations [facility]* Diagnosis Routine general medical examination at health care facility- Primary Routine general medical examination at a health care facility Encounter for screening mammogram for malignant neoplasm of breast Hypercholesterolemia Pure hypercholesterolemia Chronic obstructive pulmonary disease with acute exacerbation (HCC) Gastroesophageal reflux disease without esophagitis Esophageal reflux [facility]* Diagnosis Routine general medical examination at health care facility- Primary Routine general medical examination at a health care facility Encounter for screening mammogram for malignant neoplasm of breast Hypercholesterolemia Pure hypercholesterolemia Chronic obstructive pulmonary disease with acute exacerbation (HCC) Gastroesophageal reflux disease without esophagitis Esophageal reflux Other insomnia [facility] this encounter [facility]* Diagnosis Routine general medical examination at health care facility- Primary Routine general medical examination at a health care facility Encounter for screening mammogram for malignant neoplasm of breast Hypercholesterolemia Pure hypercholesterolemia Chronic obstructive pulmonary disease with acute exacerbation (HCC) Gastroesophageal reflux disease without esophagitis Esophageal reflux Chronic obstructive pulmonary disease with acute exacerbation (HCC) [facility] Diagnosis Routine general medical examination at health care facility- Primary Routine general medical examination at a health care facility Encounter for screening mammogram for malignant neoplasm of breast Hypercholesterolemia Pure hypercholesterolemia Chronic obstructive pulmonary disease with acute exacerbation (HCC) Gastroesophageal reflux disease without esophagitis Esophageal reflux Other insomnia [facility] Diagnosis Routine general medical examination at health care facility- Primary Routine general medical examination at a health care facility Encounter for screening mammogram for malignant neoplasm of breast Hypercholesterolemia Pure hypercholesterolemia Chronic obstructive pulmonary disease with acute exacerbation (HCC) Gastroesophageal reflux disease without esophagitis Esophageal reflux Other insomnia documented [facility] this encounter [facility]* Diagnosis Routine general medical examination at health care facility- Primary Routine general medical examination at a health care facility Encounter for screening mammogram for malignant neoplasm of breast Hypercholesterolemia Pure hypercholesterolemia Chronic obstructive pulmonary disease with acute exacerbation (HCC) Gastroesophageal reflux disease without esophagitis Esophageal reflux Chronic obstructive pulmonary disease with acute exacerbation (HCC) [facility]* Diagnosis Routine general medical examination at health care facility- Primary Routine general medical examination at a health care facility Encounter for screening mammogram for malignant neoplasm of breast Hypercholesterolemia Pure hypercholesterolemia Chronic obstructive pulmonary disease with acute exacerbation (HCC) Gastroesophageal reflux disease without esophagitis Esophageal reflux Other insomnia documented in this encounter [facility]* Diagnosis Onset Date Resolution Status Admit Date Hypokalemia acute February 15 11:21am Hypoxia acute February 15 11:21am Smoker acute February 15 11:21am COPD exacerbation chronic February 152024 11:21am [facility] Work Phone: Rexrbz for referral (narrative)No reason for referral information availableWSouthern [facility] Work Phone: Reason for visit Narrative* Imaging (Routine) - Closed Specialty Diagnoses / Procedures Referred By Contac t Referred To Contact Radiology Diagnoses Abnormal CT scan of lung Smoker Procedures CT lung screening follow up low dose Gasper Nelson, DO [address] [place] [address] Phone: tel: fax: Referral ID Status Reason Start Date Expiration Date Visits Re quested Visits Authorized [id number] Closed 02/22/2024 02/21/2025 1 1 [facility] Health Summary Purpose Family History Relationship Condition Age at Onset Recorded Date/T [...] stomach Unknown brother Leukemia Unknown Advance Directives Documents on File Type Date Recorded 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 No February 15, 2025 8:36am Advance Directives No May 10:10pm Advance Directive Response Recorded Date/ Time Do you have a Healthcare Power of Gas Meter Installer? No February 15, 2025 11:58am Advance Directives No May 10:10pm Advance Directive Response Recorded Date/ Time Do you have a Healthcare Power of Gas Meter Installer? No February 15, 2025 11:58am Do you have a Healthcare Power of Gas Meter Installer? No March 02, 2025 11:53pm Advance Directives No May 10:10pm Reason for Referral Specialty Diagnoses / Procedures Referred By Contac t Referred To Contact Radiology Diagnoses Menopause Procedures DEXA Bone Density Axial Skeleton Danish Davila, DO [address] [place] [address] Referral ID Status Reason Start Date Expiration Date Visits Re quested Visits Authorized [id number] Open 06/07/2021 06/07/2022 1 1 Specialty Diagnoses / Procedures Referred By Contac t Referred To Contact Radiology Diagnoses Smoker Procedures CT lung screening low dose Gasper Nelson, DO [address] [place] [address] Referral ID Status Reason Start Date Expiration Date V isits Requested Visits Authorized [id number] Pending Review 01/13/2023 07/12/2023 1 1 Specialty Diagnoses / Procedures Referred By Contac t Referred To Contact Radiology Diagnoses Smoker Moderate smoker (20 or less per day) Procedures CT lung screening low dose Gasper Nelson, DO [address] [place] [address] Referral ID Status Reason Start Date Expiration Date V isits Requested Visits Authorized [id number] Pending Review 08/01/2023 07/31/2024 1 1 Referral ID Status Reason Start Date Expiration Date Visits Re quested Visits Authorized [id number] Closed 08/01/2023 07/31/2024 1 1 Specialty Diagnoses / Procedures Referred By Contac t Referred To Contact Diagnoses Chronic obstructive pulmonary disease, unspecified COPD type (HCC) Procedures Complete PFT pre and post bronchodilator Gasper Nelson, DO [address] [place] [address] Referral ID Status Reason Start Date Expiration Date V isits Requested Visits Authorized [id number] Pending Review 02/22/2024 02/16/2025 1 1 Specialty Diagnoses / Procedures Referred By Contac t Referred To Contact Radiology Diagnoses Abnormal CT scan of lung Smoker Procedures CT lung screening follow up low dose Gasper Nelson, DO [address] [place] [address] Referral ID Status Reason Start Date Expiration Date V isits Requested Visits Authorized [id number] Pending Review 02/22/2024 02/21/2025 1 1 Specialty Diagnoses / Procedures Referred By Anisa arias Referred To Contact Gastroenterology Diagnoses Colon cancer screening Procedures [place] OFFICE/OUTPATIENT NEW HIGH MDM 60 MINUTES Gasper Nelson F, DO [address] [facility] [address] [place] [address] Friend, Slim [address], [address] [place] [address] Referral ID Status Reason Start Date Expiration Date Visits Requested Visits Authorized [id number] Pending Review Specialty Services Required 02/22/2024 02/21/2025 [...] OF COPD, HYPOXIA February 16, 2025 11:17am Chief Complaint Admit Date EXACERBATION OF COPD, HYPOXIA February 15, 2025 11:21am EXACERBATION OF COPD, HYPOXIA February 15, 2025 2:59pm EXACERBATION OF COPD, HYPOXIA February 16, 2025 11:17am EXACERBATION OF COPD, HYPOXIA February 17, 2025 10:59am ? GI BLEED, HYPOXIA, GERALDO, ELEVATED TROP March 03, 2025 3:30am Reason for Visit Admit Date COPD exacerbation February 15, 2025 11:2 1am Hypokalemia February 15, 2025 11:2 1am Hypoxia February 15, 2025 11:2 1am Smoker February 15, 2025 11:2 1am Hypoxemia March 03, 2025 3:30 am Intractable nausea and vomiting February 3:30am Non-ST elevated myocardial infarction Ju 2024 3:30am History of COPD March 03, 2025 3:30 am Additional Source Comments INFORMATION SOURCE (unrecogn ized section and content) DATE CREATED AUTHOR 10/12/2021 [facility] DATE CREATED AUTHOR AUTHOR'S ORGANIZ ATION 01/19/2022 [facility] DATE CREATED AUTHOR AUTHOR'S ORGANIZ ATION 02/25/2025 [facility] DATE CREATED AUTHOR AUTHOR'S ORGANIZ ATION 03/03/2025 [facility] Care Teams (unrecognized sec [...] Provider Active S tart: February 16, 2025 International Trade Specialist Relationship Specialty Start Date End Date Danish Davila, DO [address] [place] [address] PCP - General Family Medicine 03/24/20 Team Status: Active Member Role Status Dates Dr. Aaron Zepeda MD Family Provider Active Dr. Danish Davila , Primary Care Provider Active Team Status: Inactive Member Role Status Dates Dr. Danish Davila , Primary Care Provider, [facility] Provider Active International Trade Specialist Relationship Specialty Start Date End Date Danish Davila, DO [address] [place] [address] PCP - General 03/24/20 International Trade Specialist Relationship Specialty Start Date End Date Gasper Nelson, DO [address] [place] [address] PCP - General Family Medicine 01/13/23 International Trade Specialist Relationship Specialty Start Date End Date Gasper Nelson DO [address] [place] [address] PCP - General Family Medicine 01/13/23 International Trade Specialist Relationship Specialty Start Date End Date Gasper Nelson DO [address] [place] [address] PCP - General Family Medicine 01/13/23 International Trade Specialist Relationship Specialty Start Date End Date Gasper Nelson DO [address] [place] [address] PCP - General Family Medicine 01/13/23 International Trade Specialist Relationship Specialty Start Date End Date Gasper Nelson DO [address] [place] [address] PCP - General Family Medicine 01/13/23 International Trade Specialist Relationship Specialty Start Date End Date Gasper Nelson DO [address] [place] [address] PCP - General Family Medicine 01/13/23 International Trade Specialist Relationship Specialty Start Date End Date [place] Gasper Serrano, DO [address] [place] [phone] PCP - General Family Medicine 01/13/23 International Trade Specialist Relationship Specialty Start Date End Date [place] Gasper Serrano, DO [address] [place] [phone] PCP - General Family Medicine 01/13/23 International Trade Specialist Relationship Specialty Start Date End Date Gasper Nelson Maggie, DO [address] [place] [phone] PCP - General Family Medicine 01/13/23 International Trade Specialist Relationship Specialty Start Date End Date Gasper Nelson Maggie, DO [address] [place] [phone] PCP - General Family Medicine 01/13/23 International Trade Specialist Relationship Specialty Start Date End Date Gasper Nelson Maggie, DO [address] [place] [phone] PCP - General Family Medicine 01/13/23 International Trade Specialist Relationship Specialty Start Date End Date Gasper Nelson Maggie, DO [address] [place] [phone] PCP - General Family Medicine 01/13/23 International Trade Specialist Relationship Specialty Start Date End Date Gasper Nelson Maggie, DO [address] [place] [phone] PCP - General Family Medicine 01/13/23 International Trade Specialist Relationship Specialty Start Date End Date [place] Gasper Serrano, DO [address] [place] [phone] PCP - General Family Medicine 01/13/23 International Trade Specialist Relationship Specialty Start Date End Date [place] Gasper Serrano, DO [address] [place] [phone] PCP - General Family Medicine 01/13/23 International Trade Specialist Relationship Specialty Start Date End Date [place] Gasper Serrano, DO [address] [place] [phone] PCP - General Family Medicine 01/13/23 International Trade Specialist Relationship Specialty Start Date End Date [place] Gasper Serrano, DO [address] [place] [phone] PCP - General Family Medicine 01/13/23 International Trade Specialist Relationship Specialty Start Date End Date [place] Gasper Serrano, DO [address] [place] [phone] PCP - General Family Medicine 01/13/23 International Trade Specialist Relationship Specialty Start Date End Date [place] Gasper Serrano, DO [address] [place] [phone] PCP - General Family Medicine 01/13/23 International Trade Specialist Relationship Specialty Start Date End Date [place] Gasper Serrano, DO [address] [place] [address] PCP - General Family Medicine 01/13/23 International Trade Specialist Relationship Specialty Start Date End Date Gasper Nelson DO [address] [place] [address] PCP - General Family Medicine 01/13/23 International Trade Specialist Relationship Specialty Start Date End Date Danish Davila, [address] [address] PCP - General 03/24/20 International Trade Specialist Relationship Specialty Start Date End Date Danish Davila, [address] [address] PCP - General 03/24/20 International Trade Specialist Relationship Specialty Start Date End Date Danish Davila [address] [phone] PCP - General 03/24/20 International Trade Specialist Relationship Specialty Start Date End Date Danish Davila, [address] [phone] PCP - General 03/24/20 International Trade Specialist Relationship Specialty Start Date End Date Gasper Nelson DO [address] [place] [address] PCP - General Family Medicine 01/13/23 International Trade Specialist Relationship Specialty Start Date End Date Gasper Nelson DO [address] [place] [address] PCP - General Family Medicine 01/13/23 International Trade Specialist Relationship Specialty Start Date End Date Gasper Nelson DO [address] [place] [address] PCP - General Family Medicine 01/13/23 International Trade Specialist Relationship Specialty Start Date End Date Gasper Nelson, DO [address] [place] [address] PCP - General Family Medicine 01/13/23 International Trade Specialist Relationship Specialty Start Date End Date Gasper Nelson, DO [address] [place] [address] PCP - General Family Medicine 01/13/23 International Trade Specialist Relationship Specialty Start Date End Date Gasper Nelson DO [address] [place] [address] PCP - General Family Medicine 01/13/23 Team Status: Active Member Role Status Dates Dr. Danish Davila DO Primary Care Provider Active Start: February 15, 2025 Wilfred Bryan MD Emergency Provider Active Star t: February 15, 2025 Dr. Bunny Avilez DO Admit Provider Active S tart: February 15, 2025 Dr. Bunny Avilez DO Attending Provider Active Start: February 15, 2025 Team Status: Active Member Role/Relationship Status Dates Dr. Gasper Nelson DO Primary Care Provider Active Team Status: Inactive Member Role/Relationship Status Dates Dr. Danish Davila DO Primary [...] February 17, 2025 Team Status: Active Member Role/Relationship Status Dates Dr. Danish Davila DO Primary Care Provider Active Start: February 15, 2025 Wilfred Bryan MD Emergency Provider Active Star t: February 15, 2025 Dr. Bunny Avilez , Admit Provider Active S tart: February 15, 2025 Dr. Bunny Avilez , Attending Provider Active Start: February 15, 2025 Dr. Bunny Avilez , Other Provider Active S tart: February 15, 2025 Team Status: Active Member Role/Relationship Status Dates Dr. Danish Davila DO Primary Care Provider Active Start: February 16, 2025 Wilfred Bryan MD Emergency Provider Active Star t: February 16, 2025 Dr. Bunny Avilez , Admit Provider Active S tart: February 16, 2025 Dr. Bunny Avilez DO Attending Provider Active Start: February 16, 2025 Dr. Bunny Avilez DO Other Provider Active S tart: February 16, 2025 Team Status: Active Member Role/Relationship Status Dates Dr. Danish Davila DO Primary Care Provider Active Start: February 17, 2025 Wilfred Bryan MD Emergency Provider Active Star t: February 17, 2025 Dr. Bunny Avilez , Admit Provider Active S tart: February 17, 2025 Dr. Bunny Avilez , Attending Provider Active Start: February 17, 2025 Dr. Bunny Avilez , Other Provider Active S tart: February 17, 2025 Team Status: Active Member Role/Relationship Status Dates Dr. Abdukladir Peralta DO Emergency Provider Active S tart: March 03, 2025 Dr. Gasper Nelson , Primary Care Provider Active Start: March 03, 2025 Dr. Tonja oJ MD Admit Provider Active St art: March 03, 2025 Dr. Tonja Jo MD Attending Provider Active Start: March 03, 2025 Goals (unrecognized section and content) Goals [...] Comments Follow-up New to provider, 4 m [facility] med check Reason Onset Date Comments Orders 01/13/2023 LDCT Reason Onset Date Comments Scheduling 02/27/2023 Reason Onset Date Comments Handicap Placard 03/14/2023 Reason Comments Follow-up 6 month med check Reason Onset Date Comments Orders 08/01/2023 LDCT due in [place] h 2023 Reason Comments Med Refill Specialty Diagnoses / Procedures Referred By Contmelba t Referred To Contact Radiology Diagnoses Smoker Moderate smoker (20 or less per day) Procedures CT lung screening low dose Gasper Nelson F, DO [address] [facility] [address] [place] [address] Referral ID Status Reason Start Date Expiration Date Visits Re quested Visits Authorized [id number] Closed 08/01/2023 07/31/2024 1 1 Reason Onset Date Comments Error (VOID this visit) 12/21/2023 Reason Onset Date Comments Appointment 12/22/2023 [facility] Reason Onset Date Comments Med Refill 12/21/2023 [...] BE BASED ON THE PRIMARY CLINICAL RECORDS. [facility]. provides no warranty or guarantee of the accuracy or completeness of information in this document.
[2025-03-03] MEDS: 0.9% Normal Saline (1000mL) 1,000 ML 100 ML IV (04:31)
[2025-03-03] MEDS: NYSTATIN 500,000 UNIT/5 ML UDC 500000 UNIT PO ×4 (05:19→23:56)
[2025-03-03 05:24] LABS: Reflex Lactate? Y
[2025-03-03 05:29] LABS: Troponin T High Sens 2 HR 93 ng/L (<=14)
[2025-03-03 05:34] LABS: Hematocrit 43.2 % (37-47); Hemoglobin 14.6 g/dL (12.0-15.0); Immature Granulocytes Count 0.050 X10^3/uL (0.0-0.0); Mean Corp Hgb Conc 33.8 g/dL (32-36); Mean Corpuscular Volume 89.6 fL (81-99); Mean Platelet Vol. 9.9 fl (6.2-12.0); NRBC Flagged by Analyzer 0 % (0-5); Platelet Count 265 K/mm3 (150-450); RBC Distribution Width CV 13.4 % (11.6-14.6); RBC Distribution Width SD 43.7 fl (35.1-43.9); Red Blood Count 4.82 M/mm3 (4.2-5.4); White Blood Count 16.1 K/mm3 (4.4-11.0)
[2025-03-03 05:40] LABS: Magnesium 2.0 mg/dL (1.5-2.2)
[2025-03-03 06:51] LABS: Troponin T High Sens 4 HR 88 ng/L (<=14)
[2025-03-03 06:53] LABS: AST(SGOT) 37 U/L (<=31); Alanine Aminotransfer ALT/SGPT 36 U/L (<=34); Albumin, Serum 4.1 g/dL (3.4-4.8); Alkaline Phosphatase 73 U/L (35-104); Anion Gap 14 (5-15); BUN 34 mg/dL (4-19); BUN/Creat Ratio 35.4 RATIO (10-20); Calcium,Total 9.8 mg/dL (7.6-11.0); Carbon Dioxide 26.0 mmol/L (21.0-32.0); Chloride 101 mmol/L (98-108); Estimated Creatinine Clearance 40.97 ml/min (50-250); Globulin 2.4 g/dL (2.2-4.2); Glucose 144 mg/dL (70-99); Potassium 3.5 mmol/L (3.3-5.1); Procalcitonin 0.05 ng/mL (<=0.10)
[2025-03-03] MEDS: Pantoprazole Sodium 40 MG in 0.9% Normal Saline (100mL MB+) 100 ML 330 MG IV ×2 (09:27→22:11)
--- NOTE | 2025-03-03 12:23 | PCM.PN.BLA ---
Progress Note 69-year-old with multiple medical problems who was recently discharged from [facility] for COPD exacerbation. She presented to the [facility] ED on 03/03/2025 with history of approximately 72 hours of onset of malaise, fatigue with nausea and emesis. She does report that at the OSH she was going to have an upper endoscopy. However she never ended up having the upper endoscopy. WBC 22.9, hemoglobin 15.9, platelet 281 with left shift, D-dimer 0.53, CMP with chloride 97, anion gap 17, BUN/creatinine 39/1.09, GFR 59, glucose 154, lactic acid 2.4, AST/ALT 40/40 chest x-ray with no acute cardiopulmonary findings CT chest/abdomen/pelvis right lung scarring/atelectasis with slight dependent atelectasis with no otherwise acute intra-abdominal or cardiopulmonary findings EKG with SR with no acute evidence of ischemia, Physical Exam Const alert, oriented x3, no apparent distress and healthy appearing General Appearance: cooperative GI normal to inspection, nondistended, normoactive bowel sounds, soft to palpation, non-tender and non-distended Percussion: normal to percussion Rectal Exam: deferred Assessment & Plan Assessment/Plan (1) Intractable nausea and vomiting: (2) Hematemesis: PLAN: 69-year-old with COPD, history of non-ST segment elevation NH who presents with multiple episodes of hematemesis. Differential diagnosis does include Marcela-Arriola tear, or esophagitis, peptic ulcer disease and less likely neoplasia. She should undergo an upper endoscopy evaluate upper GI tract. She was explained alternatives, risk, benefits include not withstanding bleeding, infection, sepsis, perforation, need for emergent . She will have an ASA of 3. Visit Charges Inpatient E&M: [id number] [facility] L3
[2025-03-03] MEDS: Lactated Ringers 1,000 ML 15 ML IV (13:07)
--- NOTE | 2025-03-03 13:32 | PRE.ANES_ITS ---
ASA Classification* ASA Classification ASA Classification: 3 Assessment & Plan Anesthesia* Anesthesia Assessment Anesthesia Assessment: Discussed sedation and/or anesthesia options, risks, benefits, and alternatives with patient/parents/legal guardian/POA. Questions invited. The patient/parents/legal guardian/POA seems to understand and agrees to proceed with anesthesia plan. Reviewed the physical assessment, medical history, allergy history and patient home medications list prior to surgery/procedure/anesthetic and documented any changes. Performed airway and anesthesia risk assessments. Anesthesia Type Anesthesia Type: MAC History Source History Obtained from:: Patient and Chart Anesthesia Focused Assessment* Temperature: 97.9 F Pulse Rate: 86 Blood Pressure: 158/73 Respiratory Rate: 17 Pulse Ox: 97 Oxygen Delivery Method: Nasal Cannula Oxygen Flow Rate (L/min): 2 Airway Assessment Mouth opens: >3 cm Mallampati Score: II Teeth Condition: Dentures (Patient has full upper and lower dentures which are out.) Neck Range of motion (ROM): Full ROM Labs Anesthesia Preop lab: CBC WBC 16.1 K/mm3 (4.4-11.0) H 03/03/25 05:15 5 RBC 4.82 M/mm3 (4.2-5.4) 03/03/25 05:15 03/03/25 Hgb 14.6 g/dL (12.0-15.0) 03/03/25 05:15 03/03/25 Hct 43.2 % (37-47) 03/03/25 05:15 03/03/25 Plt Count 265 K/mm3 (150-450) 03/03/25 05:15 03/03/25 CHEMISTRY Potassium 3.5 mmol/L (3.3-5.1) 03/03/25 05:15 03/03/25 Sodium 141 mmol/L (133-145) 03/03/25 05:15 03/03/25 Magnesium 2.0 mg/dL (1.5-2.2) 03/03/25 03:23 03/03/25 Phosphorus 1.4 mg/dL (2.5-4.9) L 11/26/12 07:42 11/26/12 BUN 34 mg/dL (4-19) H 03/03/25 05:15 03/03/25 Creatinine 0.95 mg/dL (0.70-1.20) 03/03/25 05:15 03/03/25 Glucose 144 mg/dL (70-99) H 03/03/25 05:15 03/03/25 POC Glucose 245 mg/dL (70-110) H 10/16/13 12:24 10/16/13 TSH 3.43 uIU/mL (0.358-3.74) 10/16/13 19:28 COAG PT 13.7 SECONDS (11.9-14.4) 09/30/13 20:09 Pre-Assessment Diagnosis/Proposed Procedure Planned Operative Procedure(s): Esophagogastroduodenoscopy. 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 When Was Last Pacemaker Check QUESTION #4 FULL TEXT: You/Your Family Experience fever (hyperthermia) with Anesthesia Last Oral Intake Last Oral intake: Last Oral Intake NPO since 00:00 03/03/25 12:10 Meds taken in AM with sips of Yes 03/03/25 12:10 water? 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 Female HX of Motion Sickness HX of N/V After Surgery Non-Smoker Duration of Surgery greater than 60 minutes Number of Risk Factors PONV Score Height & Weight Height & Weight: Anesthesia: Height & Weight Height 5 ft 4 in 03/03/25 10:07 Weight: 47.1 kg 03/03/25 10:07 Body Mass Index (BMI) 17.8 03/03/25 12:10 Respiratory Assessment Respiratory Assessment - violin teacher: Respiratory Tract Infection Hx - violin teacher Hx Respiratory Tract Infection No 04/26/24 14:43 STOP Sleep Apnea STOP Sleep Apnea - violin teacher: STOP Sleep Apnea - violin teacher Hx Hypertension No 03/03/25 04:02 Hx Sleep Apnea No 03/03/25 04:02 CPAP No 04/29/24 09:40 BIPAP No 04/26/24 14:43 Do you snore loudly (louder No 03/03/25 04:02 than talking or can be heard Do you often feel tired/ No 03/03/25 04:02 fatigued/ sleepy during daytime? Has anyone observed you stop No 03/03/25 04:02 breathing during sleep? STOP Results Negative 03/03/25 04:02 QUESTION #5 FULL TEXT : Do you snore loudly (louder than talking or can be heard through closed doors)? 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 Specify any problems Hx of Preganancy in last 3 No 03/03/25 04:02 Months Nurse Filling Out Transfusion AREAD 03/03/25 04:02 & Questions: Date: 03/03/25 03/03/25 04:02 Time: 04:26 03/03/25 04:02 Patient unable to answer at this time (ie. confused, unrespo /Reproduction History /Reproductive History - violin teacher: /Reproductive Hx- violin teacher Hx Now No 03/03/25 12:10 Gestational Age (in weeks): EDC: Hx Hx Para Hx Section SAB No 03/03/25 12:10 Active Medications Active Medications: Current Medications Generic Name Dose Route Start Last Admin Trade Name Freq PRN Reason Stop Dose Admin Acetaminophen 650 mg 03/03/25 04:02 03/03/25 05:32 Acetaminophen 325 Mg Tablet PO 650 mg Q4H PRN PRN Administration Fever, pain 1-06/13 Al Hydroxide/Mg Hydroxide 30 ml 03/03/25 04:02 Mag Hydrox/Al Hydrox/Simeth 30 Ml Udc PO Q6H PRN PRN Gastric Burning Albuterol Sulfate 2.5 mg 03/03/25 04:02 Albuterol 2.5 Mg/3 Ml Vial.Neb. INHALATION Q2H PRN PRN Dyspnea, wheezing Albuterol/Ipratropium 3 ml 03/03/25 04:02 03/03/25 10:51 Ipratropium/Albuterol Sulfate 3 Ml Ampul.Neb INHALATION 3 ml Q4HWA.RT STEVE Administration Atorvastatin Calcium 20 mg 03/03/25 22:00 Atorvastatin Calcium 20 Mg Tablet PO QHS STEVE Guaifenesin 20 ml 03/03/25 04:02 Guaifenesin 10 Ml Udc (200mg/10ml) PO Q4H PRN PRN COUGH Hydralazine HCl 10 mg 03/03/25 04:02 Hydralazine 20 Mg/Ml Vial IV Q4H PRN PRN SBP > 160 Protocol Sodium Chloride 1,000 mls @ 100 mls/hr 03/03/25 04:02 03/03/25 04:31 IV 03/03/25 14:01 100 mls/hr .Q10H STEVE Administration Pantoprazole Sodium 40 mg/ 100 mls @ 330 mls/hr 03/03/25 10:00 03/03/25 09:50 Sodium Chloride IV Infused Q12 STEVE Infusion Sodium Chloride 250 mls @ 15 mls/hr 03/03/25 04:03 IV .[id number] PRN Saline Flush Sodium Chloride 250 mls @ 15 mls/hr 03/03/25 04:03 IV .[id number] PRN Additional IVPB Infusion Lactated Ringer's 1,000 mls @ 15 mls/hr 03/03/25 13:15 03/03/25 13:07 IV 15 mls/hr .Q48H STEVE Administration Melatonin 3 mg 03/03/25 04:02 Melatonin 3 Mg Tablet PO QHS PRN PRN INSOMNIA Nystatin 500,000 unit 03/03/25 04:05 03/03/25 09:28 Nystatin 500,000 Unit/5 Ml Udc PO 500,000 unit 4X/DAY STEVE Administration Ondansetron HCl 4 mg 03/03/25 04:02 03/03/25 04:41 Ondansetron 4 Mg/2 Ml Vial IV 4 mg Q8H PRN PRN Administration NAUSEA/VOMITING Prochlorperazine Edisylate 5 mg 03/03/25 04:02 03/03/25 07:40 Prochlorperazine 10 Mg/2 Ml Vial IV 5 mg Q4H PRN PRN Administration Breakthrough Nausea/Vomiting Sodium Chloride 10 - 40 ml 03/03/25 04:03 0.9% Saline Lock 10 Ml Syringe IV UD PRN SALINE FLUSH Venlafaxine HCl 150 mg 03/03/25 10:00 03/03/25 09:28 Venlafaxine Xr 150 Mg Capsule PO 150 mg DAILY STEVE Administration PFSH Medical History Hypokalemia Smoker Hypoxia COPD exacerbation Wears dentures Wears glasses Post-menopausal Depression Arthritis Anemia Gastric reflux Former smoker Hoarseness History of stress test Osteopenia COPD (chronic obstructive pulmonary disease) Family hx of colon cancer Nausea & vomiting Diarrhea Pathologic pelvic fracture Chronic anemia GERD (gastroesophageal reflux disease) Depression Home Medications ?Medication ?Instructions ?Recorded ?Last Taken ?Type esomeprazole magnesium 20 mg 40 mg PO DAILY 08/08/13 0 02/15/25 History capsule,delayed release (Nexium) simvastatin 80 mg tablet 40 mg PO QHS depression 03/0402/13/25 History venlafaxine 150 mg 150 mg PO DAILY depression 0 03/20/24 02/15/25 History capsule,extended release 24 hr albuterol sulfate 90 mcg/actuation 2 inh inhalation Q4 H PRN shortness 02/15/25 Unknown History breath activated powder inhaler of breath or wheezing trazodone 50 mg tablet 150 mg (3 x 50 mg) PO QHS #1 5 tabs 02/17/25 Unknown Rx albuterol sulfate 90 mcg/actuation inhalation 03/03/25 Unknown History aerosol inhaler prednisone 20 mg tablet 20 mg PO BID 03/03/25 Unknow n History Allergy/AdvReac Type Severity Reaction Status Date / Time Sulfa (Sulfonamide Allergy Hives Verified 03/02/25 23:34 Antibiotics) Family History Mother Pancreatic cancer Father COPD (chronic obstructive pulmonary disease) Brother Colon cancer Heart disease Sister Stomach cancer Brother Leukemia Surgical History History of tonsillectomy and adenoidectomy Hx of cholecystectomy Hx of appendectomy Hx of colonoscopy Social History household members: none current occupational status: employed current occupation: [employer] Smoking Status: Current every day smoker tobacco type: cigarettes Tobacco: How many years used: 4 alcohol intake: former substance use type: does not use Review of Systems (Anesthesia) ROS Narrative System reviewed and no additional complaints, except as documented.
--- NOTE | 2025-03-03 13:45 | EGD_PTH ---
PATIENT: JACQUELINE GÓMEZ LOC: [facility] U#:[id number] AGE/SX: 69/F ROOM: [facility] RE03/03/[address]: Dr. Kelvin Falk MD : [id number] BED: 1 DIS: 03/05/2025 SPEC #: [id number] RECD: 03/04/25 10:24 STATUS: NATALYA LUIS #: [id number] VARGAS: 03/03/25 13:[address]: Ra Abhishekhsaan DEPT: SURGICAL PATHOLOGY RECD BY: Carlitos Martinez ENTERED: 03/04/25 12:08 SP TYPE: EGD BIOPSY OT DR: MD Dr. Kelvin Murcia MD Dr. Eugene Petrilla, DO Dr. Mark Tereletsky, Tissues: A - Esophagus, NOS Procedures: Surgery Specimen Level IV HEADER OPERATION: EGD with biopsy PRE-OP DIAGNOSIS: Intractable nausea / vomiting, hematemesis TISSUE SUBMITTED: A- Distal esophagus biopsy MICROSCOPIC DIAGNOSIS A. Distal esophagus, biopsy: - Franks mucosa negative for dysplasia. MICROSCOPIC DESCRIPTION Slides are reviewed. GROSS DESCRIPTION A. Received in fixative is one container labeled with the patient's name and designated Distal esophagus biopsy. The specimen consists of two irregular fragments of light reeves soft tissue that in aggregate measure 0.3 cm. The specimen is totally submitted in one cassette. Bharathi 03/04/2025 CPT:02354
--- NOTE | 2025-03-03 14:04 | OP.CCLET_ITS ---
03/03/2025 Gasper Nelson Re : Upper GI endoscopy procedure for Ashley Dumont Dear Omar This procedure was performed on Monday, March 03, 2025. 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 Biopsied. - Hiatal hernia. - No gross lesions in the entire stomach. - No gross lesions in the entire examined duodenum. Recommendations : - Return patient [facility]. - Resume previous diet. - Continue present medications. - Await pathology results. My findings are described in the full procedure note, which is enclosed. If I can be of further assistance, please feel free to contact me at . Sincerely, Slim Weiss, 03/03/2025 2:03:52 PM This report has been signed electronically.
--- NOTE | 2025-03-03 14:04 | OP.EGD_ITS ---
Patient Name: Ashley Dumont Procedure Date: 03/03/2025 1:55 PM Date of : 1955 Age: 69 Procedure: Upper GI endoscopy Indications: Epigastric abdominal pain, Coffee-ground emesis Providers: Slim Weiss DO Medicines: Monitored Anesthesia Care Patient Profile: This is a 69 year old female. Refer to note in patient chart for documentation of history and physical. Patient has symptoms of acute epigastric abdominal pain, acute nausea and acute vomiting. Complications: No immediate complications. Procedure: Pre-Anesthesia Assessment: - Prior to the procedure, a History and Physical was performed, and patient medications and allergies were reviewed. The patient is competent. The risks and benefits of the procedure and the sedation options and risks were discussed with the patient. All questions were answered and informed consent was obtained. Patient identification and proposed procedure were verified by the physician in the pre-procedure area. Mental Status Examination: alert and oriented. Airway Examination: normal oropharyngeal airway and neck mobility. Respiratory Examination: clear to auscultation. CV Examination: normal. Prophylactic Antibiotics: The patient requires prophylactic antibiotics due to a prior history of acute GI bleeding. Prior Anticoagulants: The patient has taken Eliquis (apixaban), last dose was 1 day prior to procedure. ASA Grade Assessment: II - A patient with mild systemic disease. After reviewing the risks and benefits, the patient was deemed in satisfactory condition to undergo the procedure. The anesthesia plan was to use monitored anesthesia care (MAC). Immediately prior to administration of medications, the patient was re-assessed for adequacy to receive sedatives. The heart rate, respiratory rate, oxygen saturations, blood pressure, adequacy of pulmonary ventilation, and response to care were monitored throughout the procedure. The physical status of the patient was re-assessed after the procedure. After obtaining informed consent, the endoscope was passed under direct vision. Throughout the procedure, the patient's blood pressure, pulse, and oxygen saturations were monitored continuously. The Endoscope was introduced through the mouth, and advanced to the fourth part of the duodenum. Small bowel enteroscopy was deemed necessary. The upper GI endoscopy was accomplished without difficulty. The patient tolerated the procedure well. Scope In: 1:56:24 PM Scope Out: 1:59:44 PM Total Procedure Duration Time 0 hours 3 minutes 20 seconds Findings: There were esophageal mucosal changes secondary to established long-segment Franks's disease present in the lower third of the esophagus. The maximum longitudinal extent of these mucosal changes was 4 cm in length. Mucosa was biopsied with a cold forceps for histology in a targeted manner at intervals of 1 cm in the lower third of the esophagus. One specimen bottle was sent to pathology. Verification of patient identification for the specimen was done. Estimated blood loss was minimal. A hiatal hernia was present. No gross lesions were noted in the entire examined stomach. No gross lesions were noted in the entire examined duodenum. Retained fluid was found in the gastric body. Impression: - Esophageal mucosal changes secondary to established long-segment Franks's disease. Biopsied. - Hiatal hernia. - No gross lesions in the entire stomach. - No gross lesions in the entire examined duodenum. Recommendation: - Return patient to [facility] for [facility] care. - Resume previous diet. - Continue present medications. - Await pathology results. Procedure Code(s): --- Professional --- 29137, Small intestinal endoscopy, enteroscopy beyond second portion of duodenum, not including ileum; with biopsy, single or multiple CPT copyright 2021 [employer]. All rights reserved. The codes documented in this report are preliminary and upon healthcare network pricing consultant review may be revised to meet current compliance requirements. Slim Weiss DO 03/03/2025 2:03:52 PM This report has been signed electronically. Number of Addenda: 0 Note Initiated On: 03/03/2025 1:55 PM
--- NOTE | 2025-03-03 14:08 | PCM.POST.ANE ---
Anesthesia: Postop Eval I Current Vital Signs Temperature: 99.4 F Pulse Rate: 91 Blood Pressure: 132/69 Respiratory Rate: 16 Pulse Ox: 99 Assessment Airway patent: Yes Spontaneous unlabored respirations: Yes nausea: No Vomiting: No Anesthesia Complication: No Fluid Hydration Crystalloid volume administer (ml): 200 Total IV fluid infused: 200 Progress Note Anesthesia document: Postop Eval 1 completed: Yes
--- NOTE | 2025-03-03 15:30 | CASEMGMT ---
NAHID MORE chart review: Patient was admitted 02/15-02/17/25 for COPD exacerbation. See assessment from 02/15/25. Patient did not qualify for home oxygen and was discharged to home with follow-up plans in place. Patient returned to [facility] ED on 03/03/25 for complaint of chest pain and N/V. Patient was admitted for hematemesis and hypoxia and GI consulted. Patient had EGD which showed Franks's disease. NAHID CM in to discuss readmission and discharge planning. Patient states she did not schedule PCP appointment yet. Patient states she was taking medications as directed. Patient states she prefers [employer] for home oxygen if needed. Patient denies need for HHC or outpatient therary, will monitor for need at discharge. Patient denies further needs or concerns. CM will continue to follow this patient and plan for a safe discharge.
--- NOTE | 2025-03-03 16:45 | POSTOPAN2_ITS ---
Anesthesia Postop Eval I Sum Postop Eval Completion status Anesthesia document: Postop Eval 1 completed: Yes Anesthesia Postop Eval I Summary Anesthesia Postop Eval I Summary: Anesthesia Postop Eval I: Assessment Summary Airway patent Yes 03/03/25 14:08 NEIGHBORHOOD CONSERVATION [email or web address].[email or web address] Spontaneous unlabored Yes 03/03/25 14:08 NEIGHBORHOOD CONSERVATION [email or web address].TNES respirations Mental status nausea No 03/03/25 14:08 NEIGHBORHOOD CONSERVATION OFFICER.TNES Vomiting No 03/03/25 14:08 NEIGHBORHOOD CONSERVATION [email or web address].[email or web address] Anesthesia Postop Eval I: Fluid Summary Crystalloid volume administer 200 03/03/25 14:08 NEIGHBORHOOD CONSERVATION OFFICER.TNES (ml) Colloids volume administered ( ml) Blood Product volume administered (ml) Total IV fluid infused 200 03/03/25 14:08 NEIGHBORHOOD CONSERVATION [email or web address].TNES Anesthesia Postop Eval I: Summary Notes Anesthesia Complication No 03/03/25 14:08 NEIGHBORHOOD CONSERVATION [email or web address].TNES Anesthesia Complication Comment: Post-operative progress note Anesthesia: Postop Eval II Evaluation Mental status: Awake Pain Level: 1 nausea: No Vomiting: No
--- NOTE | 2025-03-03 16:45 | PCM.POSTANE2 ---
Anesthesia Postop Eval I Sum Postop Eval Completion status Anesthesia document: Postop Eval 1 completed: Yes Anesthesia Postop Eval I Summary Anesthesia Postop Eval I Summary: Anesthesia Postop Eval I: Assessment Summary Airway patent Yes 03/03/25 14:08 RN [email or web address] Spontaneous unlabored Yes 03/03/25 14:08 RN [email or web address] respirations Mental status nausea No 03/03/25 14:08 RN [email or web address] Vomiting No 03/03/25 14:08 RN [email or web address] Anesthesia Postop Eval I: Fluid Summary Crystalloid volume administer 200 03/03/25 14:08 RN [email or web address] (ml) Colloids volume administered ( ml) Blood Product volume administered (ml) Total IV fluid infused 200 03/03/25 14:08 [email or web address] Anesthesia Postop Eval I: Summary Notes Anesthesia Complication No 03/03/25 14:08 RN [email or web address] Anesthesia Complication Comment: Post-operative progress note Anesthesia: Postop Eval II Evaluation Mental status: Awake Pain Level: 1 nausea: No Vomiting: No
--- NOTE | 2025-03-03 17:51 | PCM.HOSP.N ---
Hospitalist Note Patient was seen and examined by, she underwent an EGD which showed changes in the esophagus consistent with Franks's disease. Echocardiogram obtained today was unremarkable except for posterior leaflet mitral valve prolapse. Patient is currently on 2 L of oxygen, she remains medically stable and there is no evidence of bleeding. Patient will be reevaluated tomorrow for possible discharge home
[2025-03-03] MEDS: MELATONIN 3 MG TABLET PO (22:11)
[2025-03-03] MEDS: 0.9% Saline Lock 10 ML Syringe IV (22:18)
[2025-03-04] VITALS (18 sets, daily range): BP systolic 121–192; BP diastolic 65–94; PULSE 74–102; RESP 15–20; TEMP 36.2–36.7; O2SAT 86–97; BMI 17.6
[2025-03-04] MEDS: 0.9% Saline Lock 10 ML Syringe IV ×2 (05:44→23:05)
[2025-03-04 06:55] LABS: Cholesterol 215 mg/dL (<=200); Low Density Lipoprotein Calc. 147 mg/dL; Triglycerides 87 mg/dL; Very Low Density Lipoprotein 17 mg/dL (5-40); cholesterol:hdl ratio screen 4.27
[2025-03-04] MEDS: Pantoprazole Sodium 40 MG in 0.9% Normal Saline (100mL MB+) 100 ML 330 MG IV (09:15)
[2025-03-04] MEDS: NYSTATIN 500,000 UNIT/5 ML UDC 500000 UNIT PO ×4 (10:46→23:04)
--- NOTE | 2025-03-04 12:15 | PCM.PN.HOSP ---
Reason for Visit Reason for Visit: Diagnoses Hematemesis (03/03/25) Nausea with vomiting, unspecified (03/03/25) Subjective Subjective Patient is a 69-year-old female admitted with hematemesis. Patient was also found to be hypoxic on admission admitted to a monitored bed for further management Objective Data Objective Data Vital Signs: Vital Signs Temp Pulse Resp BP Pulse Ox O2 Del Method O2 Flow Rate 98.0 F 88 18 145/75 H 94 Nasal Cannula 2 03/04/25 08:13 03/04/25 11:30 03/04/25 11:30 03/04/25 08:13 03/04/25 08:13 03/04/25 08:13 03/04/25 08:13 Oxygen Flow Rate (L/min) 2 Oxygen Delivery Method Nasal Cannula Weight: 46.8 kg Body Mass Index (BMI) 17.6 Intake & Output: Intake and Output for Last 24 Hours 03/02/25 03/03/25 03/04/25 23:59 23:59 23:59 Intake Total 0 / 0 2375 / 2675 400 / 400 Balance 0 / 0 2375 / 2675 400 / 400 Lab / Micro Data 03/03/25 05:15 03/03/25 05:15 Labs: Laboratory Results - last 24 hr 03/04/25 05:34: Triglycerides 87, Cholesterol 215 H, LDL Cholesterol, Calc 147, VLDL Cholesterol 17, HDL Cholesterol 50, Cholesterol/HDL Ratio 4.27 Micro: Microbiology 03/03/25 05:49 Mucosa - Nasopharyngeal Respiratory Panel (PCR) - Final Radiography Diagnostic Testing: Radiology Impression Echocardiogram 03/03/25 04:02 Interpretation Summary The estimated ejection fraction is 60-65 %. Overall normal LV systolic function Diffuse aortic valve sclerosis with no evidence of aortic stenosis. No previous echocardiogram to compare. Ordering Physician: Tonja Jo Performed By: Asiya Hammond RDCS Physical Exam Narrative GENERAL: cooperative HEENT: Atraumatic; normocephalic EYES; Anicteric, Normal Conjunctiva NECK; supple, normal thyroid, RESPIRATORY: Diminished to auscultation CARDIOVASCULAR: Regular S1 S2, GI: soft, normoactive bowel sounds, : No Renal angle tenderness; EXTREMITIES: No edema, no clubbing, MUSCULOSKELETAL: no muscle wasting NEURO: Awake; no lateralizing signs. SKIN: No Rash PSYCH; Flat affect Assessment & Plan Assessment/Plan (1) Intractable nausea and vomiting: PLAN: Plan Patient is a 69-year-old female admitted with hematemesis. Patient was also found to be hypoxic on admission admitted to a monitored bed for further management 1. Upper GI bleed ?Patient admitted to a monitored bed. Dr. Weiss with gastroenterology was consulted. 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 Biopsied. - Hiatal hernia. No gross lesions in the entire stomach. No gross lesions in the entire examined duodenum.. Patient hemoglobin remains stable. Patient remains on PPI 2. Acute hypoxia ?Secondary to atelectasis. CT of the of the chest obtained did show Small tracheal secretions. Moderate emphysema. Right anterior lung scar/atelectasis. Slight dependent atelectasis. No consolidation, effusion, or pneumothorax. Plan is for patient to be assessed for home oxygen prior to this 3. 5 mm noncalcified upper lobe nodule. ? Patient informed of the above finding patient to follow-up with primary care physician to have a repeat low-dose CT for stability or otherwise of the above noted 4. Elevated troponin ? Thought to be secondary to demand ischemia from hypoxia will continue with monitoring 5. COPD ? Not in exacerbation aerosol treatment as needed 6. Depression with anxiety ? Patient is on venlafaxine as well as trazodone 7. Dyslipidemia ?Patient is on statin therapy, continued at home dose 8. Tobacco dependence ? Counseled on cessation, offered nicotine patch for tobacco cravings 9. Underweight with BMI of 17.7 ? Complicating care 10. GERALDO ruled out 11. Hyperkalemia ? Present on admission treated per protocol 12. DVT prophylaxis ? Avoiding the use of chemoprophylaxis given patient hematemesis on presentation Charges/Coding Visit Charges Inpatient E&M: 00969 Subs Hosp L2
[2025-03-05] MEDS: Pantoprazole Sodium 40 MG in 0.9% Normal Saline (100mL MB+) 100 ML 330 MG IV ×2 (00:45→08:54)
[2025-03-05 03:00] VITALS: PULSE 95
[2025-03-05 03:26] VITALS: BMI 17.4
[2025-03-05 04:36] VITALS: BP 114/63; PULSE 88; RESP 16; TEMP 36.8; O2SAT 94
[2025-03-05 06:50] LABS: Hematocrit 40.6 % (37-47); Hemoglobin 13.6 g/dL (12.0-15.0); Immature Granulocytes Count 0.040 X10^3/uL (0.0-0.0); Mean Corp Hgb Conc 33.5 g/dL (32-36); Mean Corpuscular Volume 90.4 fL (81-99); Mean Platelet Vol. 10.3 fl (6.2-12.0); NRBC Flagged by Analyzer 0 % (0-5); Platelet Count 227 K/mm3 (150-450); RBC Distribution Width CV 13.2 % (11.6-14.6); RBC Distribution Width SD 43.2 fl (35.1-43.9); Red Blood Count 4.49 M/mm3 (4.2-5.4); White Blood Count 9.9 K/mm3 (4.4-11.0)
[2025-03-05 06:55] VITALS: PULSE 89; RESP 18; O2SAT 93
--- NOTE | 2025-03-05 07:27 | PCM.DC.SUM ---
Providers Date of Admission: 03/03/25 Primary Care Physician: Dr. Gasper Nelson, DO Consultations 03/03/25 07:29 Consult: Gastroenterology Routine Consulting Provider: [facility] Reason for Consult: Hematemesis EMERGENT Consult: No MD Notified: Yes Date Notified: 03/03/25 Time Notified: 08:08 Method of Notification: Text Reason For Visit: ? GI BLEED, HYPOXIA, GERALDO, ELEVATED TROP Diagnosis Discharge Diagnosis (1) Intractable nausea and vomiting: Status: Acute Code(s): R11.2 - Nausea with vomiting, unspecified Plan Patient is a 69-year-old female admitted with hematemesis. Patient was also found to be hypoxic on admission admitted to a monitored bed for further management 1. Upper GI bleed ?Patient admitted to a monitored bed. Dr. Weiss with gastroenterology was consulted. 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 Biopsied. - Hiatal hernia. No gross lesions in the entire stomach. No gross lesions in the entire examined duodenum.. Patient hemoglobin remains stable. Patient remains on PPI 2. Acute hypoxia ?Secondary to atelectasis. CT of the of the chest obtained did show Small tracheal secretions. Moderate emphysema. Right anterior lung scar/atelectasis. Slight dependent atelectasis. No consolidation, effusion, or pneumothorax. Plan is for patient to be assessed for home oxygen prior to this - I have reviewed the oxygen testing, and this patient qualifies for the home equipment and portability. The patient is mobile in the home and the community. 3. 5 mm noncalcified upper lobe nodule. ? Patient informed of the above finding patient to follow-up with primary care physician to have a repeat low-dose CT for stability or otherwise of the above noted 4. Elevated troponin ? Thought to be secondary to demand ischemia from hypoxia will continue with monitoring 5. COPD ? Not in exacerbation aerosol treatment as needed 6. Depression with anxiety ? Patient is on venlafaxine as well as trazodone 7. Dyslipidemia ?Patient is on statin therapy, continued at home dose 8. Tobacco dependence ? Counseled on cessation, offered nicotine patch for tobacco cravings 9. Underweight with BMI of 17.7 ? Complicating care 10. GERALDO ruled out 11. Hyperkalemia ? Present on admission treated per protocol 12. DVT prophylaxis ? Avoiding the use of chemoprophylaxis given patient hematemesis on presentation Medications at Discharge Home Medications esomeprazole magnesium 20 mg capsule,delayed release (Nexium) 40 mg PO DAILY 08/08/13 simvastatin 80 mg tablet 40 mg PO QHS depression 03/20/24 venlafaxine 150 mg capsule,extended release 24 hr 150 mg PO DAILY depression 03/20/24 albuterol sulfate 90 mcg/actuation breath activated powder inhaler 2 inh inhalation Q4H PRN shortness of breath or wheezing 02/15/25 trazodone 50 mg tablet 150 mg (3 x 50 mg) PO QHS #15 tabs 02/17/25 albuterol sulfate 90 mcg/actuation aerosol inhaler inhalation 03/03/25 prednisone 20 mg tablet 20 mg PO BID 03/03/25 nystatin 100,000 unit/mL oral suspension 500,000 unit (5 mL) PO 4X/DAY #300 mL 03/05/25 Hospital Course Summary of Care Provided Minutes Spent on Discharge: 32 Physical Exam Narrative GENERAL: cooperative HEENT: Atraumatic; normocephalic EYES; Anicteric, Normal Conjunctiva NECK; supple, normal thyroid, RESPIRATORY: Diminished to auscultation CARDIOVASCULAR: Regular S1 S2, GI: soft, normoactive bowel sounds, : No Renal angle tenderness; EXTREMITIES: No edema, no clubbing, MUSCULOSKELETAL: no muscle wasting NEURO: Awake; no lateralizing signs. SKIN: No Rash PSYCH; Flat affect Weight / BMI Weight Weight: 46.1 kg Body Mass Index (BMI) 17.4 ABG / Lab / Microbiology Data 03/05/25 06:08 03/05/25 06:08 Laboratory: Laboratory Results - last 24 hr 03/05/25 06:08: WBC 9.9, RBC 4.49, Hgb 13.6, Hct 40.6, MCV 90.4, MCH 30.3, MCHC 33.5, RDW Std Deviation 43.2, RDW Coeff of Tr 13.2, Plt Count 227, MPV 10.3, Immature Gran % (Auto) 0.400, Neut % (Auto) 84.7 H, Lymph % (Auto) 11.9 L, [place] % (Auto) 2.4, Eos % (Auto) 0.3, Baso % (Auto) 0.3, Absolute Neuts (auto) 8.3 H, Absolute Lymphs (auto) 1.17, Nucleated RBC % 0, Sodium 134, Potassium 3.6, Chloride 99, Carbon Dioxide 19.1 L, Anion Gap 16 H, BUN 24 H, Creatinine 0.76, Estim Creat Clear Calc 47.62 L, Est GFR (MDRD) Non-Af 84, BUN/Creatinine Ratio 31.2 H, Glucose 148 H, Calcium 9.6, Phosphorus 2.2 L, Magnesium 1.8 Microbiology: Microbiology 03/03/25 05:49 Mucosa - Nasopharyngeal Respiratory Panel (PCR) - Final D/C Instructions Discharge Diet: No restrictions Discharge Activity: Return to Normal Activity Call your doctor if you observe: Fever of 101 or Higher, Shortness of breath, Fainting spells and Chest pain DC O2, CPAP, BIPAP Needs Home O2 Discharge instructions: Yes Type of respiratory needs?: Oxygen Oxygen frequency: With Ambulation Oxygen liters per minute during Ambulation: 2 DC home with Oxygen: Yes Home O2 MD Review: I have reviewed the oxygen testing, and the patient qualifies for home oxygen equipment and portability. The patient is mobile in the home and the community. Meaningful Use Info Meaningful Use Meaningful Use Diagnoses (Choose all that apply): None applicable Ischemic Stroke Statin Dosing Therapy Reference: STATIN DOSE THERAPY REFERENCE: * Patients > 75 years receive moderate or high dose statin therapy. * Patients 75 years or YOUNGER should receive HIGH intensity statin dose unless contraindicated. You will be required to document reason for non-treatment if statin daily dose does not meet guidelines. HIGH DOSE STATIN THERAPY DAILY Atorvastatin > than or = to 40 mg Rosuvastatin > than or = to 20 mg Amlodipine + Atorvastatin > than or = to 2.5/40 mg Ezetimibe + Simvastatin 10/80 mg Simvastatin 80mg Discharge Plan Admission Admit Date/Time: 03/03/25 03:30 Attending Provider: Kelvin Falk Primary Care Provider: Gasper Nelson Consulting Providers: Tonja Jo; Bunny Avilez Discharge Orders/Prescriptions Prescriptions: New nystatin 100,000 unit/mL Suspension 500,000 unit PO 4X/DAY Qty: 300 0RF Continued simvastatin 80 mg tablet 40 mg PO QHS Patient Comments: PT TAKING 40 MG, BREAKS PILL IN HALF venlafaxine 150 mg capsule,extended release 24hr 150 mg PO DAILY esomeprazole magnesium [Nexium] 20 MG capsule 40 mg PO DAILY Patient Comments: acid reflux albuterol sulfate 90 mcg/actuation aerosol powdr breath activated 2 inh inhalation Q4H PRN (Reason: shortness of breath or wheezing) trazodone 50 mg Tablet 150 mg PO QHS Qty: 15 0RF albuterol sulfate 90 mcg/actuation HFA aerosol inhaler inhalation prednisone 20 mg tablet 20 mg PO BID Rx Instructions: one twice a day for three days, then one daily until gone; unsure when it is finished Referrals / Follow Up: Gasper Nelson DO [Primary Care Provider] - Within 1 Week Danish Davila DO [Non-Staff] - Disposition Disposition (needs filled in before D/C Order can be placed): Home, Self Care Charges/Coding Visit Charges Inpatient E&M: 86268 Disch Hosp >30min
[2025-03-05 07:45] LABS: Magnesium 1.8 mg/dL (1.5-2.2)
[2025-03-05 08:13] LABS: Anion Gap 16 (5-15); BUN 24 mg/dL (4-19); BUN/Creat Ratio 31.2 RATIO (10-20); Calcium,Total 9.6 mg/dL (7.6-11.0); Carbon Dioxide 19.1 mmol/L (21.0-32.0); Chloride 99 mmol/L (98-108); Estimated Creatinine Clearance 47.62 ml/min (50-250); Glucose 148 mg/dL (70-99); Potassium 3.6 mmol/L (3.3-5.1)
[2025-03-05] MEDS: NYSTATIN 500,000 UNIT/5 ML UDC 500000 UNIT PO (08:50)
[2025-03-05] MEDS: 0.9% Saline Lock 10 ML Syringe IV (08:51)
[2025-03-05 08:55] VITALS: BP 111/71; PULSE 92; RESP 16; TEMP 36.6; O2SAT 97
[2025-03-05 10:22] VITALS: BP 111/71; PULSE 92; RESP 16; TEMP 36.6; O2SAT 97
[2025-03-05] MEDS: Na Biphos/Potassium Phosphate PACKET 1 PACKET PO (11:49)
[2025-03-05 11:57] VITALS: O2SAT 90; O2SAT 98
--- NOTE | 2025-03-05 12:25 | CASEMGMT ---
Addendum entered by Luna Eli 03/05/25 12:41: NAHID MORE updated that [facility] Van does not have availability today. NAHID MORE updated patient, patient states she can pay for taxi. NAHID MORE updated Pet Adoption Counselor. Original Note: Patient has order for discharge. Patient does not qualify for home oxygen. NAHID MORE in to discuss needs at discharge. Patient denies needs or help at discharge. Patient states she would like to use [facility] Van for transport home. Patient had no further questions or concerns. NAHID MORE update PCU Pet Adoption Counselor regarding request for hospital van at discharge.
== END 2025-03-05 13:33 | disposition home or self-care (01) | DRG 381 ==
LOC: ED 03-03 03:17 → PCU 03-03 03:45
PROVIDERS: Internal Medicine Gastroenterology; Admitting Provider Family Medicine; Emergency Provider Emergency Medicine; PCP Family Medicine; Visit Provider Internal Medicine
PROC: 0DJ08ZZ Inspection of Upper Intestinal Tract, Via Natural or Artificial Opening Endoscopic (ICD-10-PCS; CPT 43235; principal; 2025-03-03 13:40)
DX: K22.70 Barrett's esophagus without dysplasia (principal); I24.89 Other forms of acute ischemic heart disease; J98.11 Atelectasis; Z68.1 Body mass index [BMI] 19.9 or less, adult; K92.0 Hematemesis; J43.9 Emphysema, unspecified; F32.A Depression, unspecified; F17.210 Nicotine dependence, cigarettes, uncomplicated; K21.9 Gastro-esophageal reflux disease without esophagitis; E78.5 Hyperlipidemia, unspecified; K44.9 Diaphragmatic hernia without obstruction or gangrene; E87.5 Hyperkalemia; F41.9 Anxiety disorder, unspecified; R91.1 Solitary pulmonary nodule; R63.6 Underweight; R77.8 Other specified abnormalities of plasma proteins; Z79.899 Other long term (current) drug therapy
CPT/HCPCS: 36415; 71045; 71260; 74177; 80048; 80053; 80061; 81001; 83605; 83690; 83735; 84100; 84145; 84484; 85025; 85379; 87633; 88305; 93005; 93306; 94640; 94668; 97803; 99285; Q9967; A4216; J2405

== ENCOUNTER 2025-03-06 05:52 | Emergency (ER) | payer MEDICARE, SELFPAY ==
[2025-03-06 05:54] VITALS: BP 172/76; PULSE 79; RESP 22; TEMP 36.6; O2SAT 88; BMI 19.3
[2025-03-06 06:37] LABS: Hematocrit 42.1 % (37-47); Hemoglobin 14.1 g/dL (12.0-15.0); Immature Granulocytes Count 0.030 X10^3/uL (0.0-0.0); Mean Corp Hgb Conc 33.5 g/dL (32-36); Mean Corpuscular Volume 90.3 fL (81-99); Mean Platelet Vol. 10.6 fl (6.2-12.0); NRBC Flagged by Analyzer 0 % (0-5); POSITIVE COUNT YES; RBC Distribution Width CV 13.2 % (11.6-14.6); RBC Distribution Width SD 43.6 fl (35.1-43.9); Red Blood Count 4.66 M/mm3 (4.2-5.4); White Blood Count 10.8 K/mm3 (4.4-11.0)
[2025-03-06 06:55] LABS: Differential Indicated SCAN CRITERIA MET
[2025-03-06 07:01] LABS: AST(SGOT) 25 U/L (<=31); Alanine Aminotransfer ALT/SGPT 22 U/L (<=34); Albumin, Serum 4.1 g/dL (3.4-4.8); Alkaline Phosphatase 65 U/L (35-104); Anion Gap 11 (5-15); BUN 24 mg/dL (4-19); BUN/Creat Ratio 38.7 RATIO (10-20); Calcium,Total 9.8 mg/dL (7.6-11.0); Carbon Dioxide 27.0 mmol/L (21.0-32.0); Chloride 100 mmol/L (98-108); Estimated Creatinine Clearance 52.79 ml/min (50-250); Globulin 2.4 g/dL (2.2-4.2); Glucose 153 mg/dL (70-99); Lipase 16 U/L (13-75); Potassium 3.0 mmol/L (3.3-5.1)
[2025-03-06] MEDS: Famotidine 200 MG/20 ML MDV 20 MG in 0.9% Normal Saline (Pres. free 8 ML 300 MG IV (07:12)
[2025-03-06] MEDS: Lidocaine 2% Viscous15 ML UDC 15 ML PO (07:17)
[2025-03-06 07:19] LABS: Platelet Count 170 K/mm3 (150-450)
[2025-03-06 07:20] LABS: Differential Comment SCANNED
[2025-03-06 07:52] VITALS: BP 168/76; PULSE 82; RESP 21; O2SAT 93
[2025-03-06 08:41] LABS: Mucous, Urine 0 SEEN /hpf (<or=2+); Red Blood Cells-Urine 0 SEEN /hpf (0-5)
[2025-03-06 08:42] LABS: Color, Urine Yellow (Yellow); Glucose, Dipstick 50 mg/dl (Normal); Ketone-Dipstick Negative (Negative); Leukocyte Esterase-Dipstick 25 /ul (Negative); Nitrite-Dipstick Negative (Negative); Occult Blood-Urine 10 /ul (Negative); Protein-Dipstick 30 mg/dl (Negative); Specific Gravity, Urine 1.020 (1.002-1.030); Urine Bilirubin Dipstick Negative (Negative)
[2025-03-06 08:48] LABS: Squamous Epithelial Cells - UA 0-5 SEEN /hpf (5-10)
[2025-03-06 08:50] LABS: Calcium Oxalate Crystals Ur 2+ /hpf (<or=2+)
[2025-03-06 09:00] VITALS: BP 167/73; PULSE 88; RESP 17; O2SAT 91
[2025-03-06] MEDS: Potassium Chloride Oral Soln 20 MEQ/15 ML UDC 40 MEQ PO (09:17)
[2025-03-06] MEDS: proMETHazine 25 MG/ML Syringe 6.25 MG IM (09:38)
[2025-03-06 10:00] VITALS: BP 178/78; PULSE 86; RESP 15; TEMP 36.6; O2SAT 90
== END 2025-03-06 10:17 | disposition home or self-care (01) ==
PROVIDERS: Surgery; Emergency Provider Emergency Medicine; PCP Family Medicine; Visit Provider Emergency Medicine
DX: R06.02 Shortness of breath (principal); R10.13 Epigastric pain; G89.29 Other chronic pain; R11.0 Nausea; E87.6 Hypokalemia; F17.210 Nicotine dependence, cigarettes, uncomplicated
CPT/HCPCS: 99284; 71046; 74177; 80053; 81001; 83690; 85025; Q9967; A4216; J2405

== ENCOUNTER 2025-03-07 13:13 | Inpatient (IN) | payer MEDICARE, SELFPAY ==
[2025-03-07] VITALS (10 sets, daily range): BP systolic 84–144; BP diastolic 49–85; PULSE 50–102; RESP 12–18; TEMP 36.5–36.7; O2SAT 93–100; BMI 19.0; BMI 18.4
--- NOTE | 2025-03-07 13:29 | EKG12_ITS ---
Test Reason : SOB Blood Pressure : */* mmHG Vent. Rate : 98 BPM Atrial Rate : 98 BPM P-R Int : 136 ms QRS Dur : 136 ms QT Int : 368 ms P-R-T Axes : 93 82 70 degrees QTcB Int : 469 ms Normal sinus rhythm Biatrial enlargement Non-specific intra-ventricular conduction block Abnormal ECG Confirmed by MURTAZA CHISHOLM, NIKI ([id number]), editorial manager TIFFANI BENZ ([id number]) on 03/10/2025 10:29:33 AM Referred By: Claude Springer Confirmed By: NIKI HAUSER MD
--- NOTE | 2025-03-07 13:35 | EDS_ITS ---
<Statement entered by Jean-Claude Ramirez DO - 03/07/25 17:42> Patient was seen and examined with physician occupational therapy assistant Rosalind All components of the history and physical confirmed and agreed. History of present illness and physical exam: Patient is a 69-year-old female with past medical history of hyperlipidemia, GERD, COPD, anemia who presented to the emergency department with a chief complaint shortness of breath. She according records has been hospitalized multiple times and notes that starting last night she developed worsening shortness of breath. States that she could not get out of bed however noted that she was too weak to do so. She states that she does not wear home oxygen but she was told that she needed its during admissions before. Review of systems: Agree with above Physical exam: Agree with above Patient presents with MDM Patient is a 69-year-old female who presented to the emergency department chief complaint of shortness of breath and weakness. On the differential diagnosis includes but not limited to PE, pneumonia, pneumothorax, upper respiratory infection secondary to viral etiology, ACS, cardiac arrhythmia. Once the workup is obtained reviewed she will be reevaluated. Patient CBC reviewed showed a white count of 16,000, hemoglobin 14.3, platelet count normal at 241. Patient sodium normal 136, potassium normal at 4.5, creatinine was 1.06, lactic acid was noted to be 2.3, troponin of 63 proBNP elevated to 3463 which is likely causing her elevated troponin leading to myocardial infarction type II. Patient chest x-ray reviewed by myself and by radiology showed no acute cardiopulmonary processes CTA chest showed no evidence of PE distended esophagus with air-fluid level aspiration precaution is recommended. Continue low-dose CT scan of the chest in 12 months recommended lung emphysema, COPD right middle lobe and lingula atelectasis or scarring there is a 3 mm nodule of the lateral left upper lobe. Patient EKG reviewed showed sinus rhythm with a rate of 98 bpm. Patient's echocardiogram was reviewed from 03/03/2025 which showed ejection fraction of 60 to 65%. Patient was unable to get up out of bed and ambulate she is too weak. Patient does not have home oxygen either. At this point time do believe she warrants admission. Rosalind did discuss case with hospitalist who accept the patient for admission Dr. Springer. Plan: Final impression: Generalized weakness Dehydration History of COPD Disposition: Patient will be [ ] in stable condition Supervising attending attestation: Jean-Claude LOWE History of Present Illness Chief Complaint: Shortness of Breath Narrative Narrative: 69-year-old female with PMH of HLD, GERD, COPD, anemia, former tobacco use presents with shortness of breath. She states she has been to the hospital multiple times recently. She was here last night for abdominal pain. She states her abdominal pain resolved but she is feeling very short of breath since last night. She could not get out of bed because she felt weak. She states her boss came to her house to give her some water and Sprite. She has some intermittent chest pain but none currently. She states she quit smoking 20 days ago. She has COPD and uses inhalers. She does not wear home oxygen but states they told me I needed it during admissions before. She denies fever, chills, or cough. [facility] Medical History Hypokalemia Smoker Hypoxia COPD exacerbation Wears dentures Wears glasses Post-menopausal Depression Arthritis Anemia Gastric reflux Former smoker Hoarseness History of stress test Osteopenia COPD (chronic obstructive pulmonary disease) Family hx of colon cancer Nausea & vomiting Diarrhea Pathologic pelvic fracture Chronic anemia GERD (gastroesophageal reflux disease) Depression Home Medications ?Medication ?Instructions ?Recorded ?Last Taken ?Type esomeprazole magnesium 20 mg 40 mg PO DAILY 08/08/13 0 02/15/25 History capsule,delayed release (Nexium) venlafaxine 150 mg 150 mg PO DAILY depression 0 03/20/24 02/15/25 History capsule,extended release 24 hr trazodone 50 mg tablet 150 mg (3 x 50 mg) PO QHS #1 5 tabs 02/17/25 Unknown Rx albuterol sulfate 90 mcg/actuation 2 puff inhalation Q 4H PRN 03/03/25 Unknown History aerosol inhaler shortness of breath or wheez ing nystatin 100,000 unit/mL oral 500,000 unit (5 mL) PO 4 X/DAY #300 03/05/25 Unknown Rx suspension mL ondansetron 4 mg disintegrating 4 mg PO Q8H PRN PRN Na usea #10 tabs 03/06/25 Unknown Rx tablet Allergy/AdvReac Type Severity Reaction Status Date / Time Sulfa (Sulfonamide Allergy Hives Verified 03/07/25 13:19 Antibiotics) Family History Mother Pancreatic cancer Father COPD (chronic obstructive pulmonary disease) Brother Colon cancer Heart disease Sister Stomach cancer Brother Leukemia Surgical History History of tonsillectomy and adenoidectomy Hx of cholecystectomy Hx of appendectomy Hx of colonoscopy Social History household members: none current occupational status: employed current occupation: [employer] Smoking Status: Current every day smoker tobacco type: cigarettes Tobacco: How many years used: 4 alcohol intake: former substance use type: does not use ROS ROS ED ROS Narrative Constitutional: Negative for fever, chills. CVS: Negative for chest pain. Respiratory: Positive for shortness of breath. Negative for cough. GI: Positive for chronic abdominal pain. EXAM Physical Exam Narrative Exam Narrative: CONST: Patient sitting in no acute distress. EYES: Normal inspection. ENT: Normal inspection, dry mucous membranes. NECK: Normal inspection. RESP: No respiratory distress, CTAB. CVS: Regular rate and rhythm, no murmur, no gallop. SKIN: Color normal, no rash, warm, dry, intact. EXTREMITIES: Normal appearance, no pedal edema. NEURO: Alert and answering questions appropriately. PSYCH: Normal affect. Const Vital Signs: 03/07/25 13:14 03/07/25 13:17 03/07/25 14:17 Temperature 97.8 F 97.8 F 97.9 F Temperature Source Oral Oral Oral Pulse Rate 102 H 98 99 Respiratory Rate 18 18 18 Respiratory Pattern Blood Pressure 84/59 L 84/59 L 100/69 Blood Pressure Mean 67 67 79 Pulse Ox 98 99 100 Oxygen Delivery Method Nasal Cannula Nasal Cannula Nasal Cannula Oxygen Flow Rate (L/min) 2 2 2 03/07/25 15:17 03/07/25 15:45 03/07/25 16:00 Temperature 97.9 F 98 F Temperature Source Oral Oral Pulse Rate 99 50 L 85 Respiratory Rate 18 17 14 Respiratory Pattern Normal Blood Pressure 88/55 L 114/83 H Blood Pressure Mean 66 93 Pulse Ox 100 100 Oxygen Delivery Method Nasal Cannula Room Air Oxygen Flow Rate (L/min) 2 MDM MDM MDM Narrative Medical decision making narrative: History gathered from: Patient Differential includes but not limited to COPD, ACS, PE 69-year-old female with PMH of HLD, GERD, COPD, anemia presents with shortness of breath. She was just hospitalized for hematemesis and hypoxia. Documentation states she qualified for home oxygen however she does not have it now does not know the details. BP is 84/59, HR 182, 88% on RA placed on 2 L at 98%, RR 18, afebrile. She has dry mucous membranes. Heart is regular and lungs are clear. Abdomen soft and nontender. WBC is 16.6. She has had no further emesis and hemoglobin is stable at 14.3. BUN is elevated at 55, creatinine 1.06. Electrolytes are unremarkable except for chloride of 95. Glucose 143 with normal CO2 and gap. Troponin is 63 but this is lower than 91 at prior admission and at that time it was thought to be demand ischemia from hypoxia. She currently does not have chest pain her EKG is nonischemic. proBNP is 3463. Clinically she looks dry, not fluid overloaded. She just had an echocardiogram on 03/03/2025 with EF of 60 to 65%. Her 1 view chest x-ray from today is negative. Since she complains of shortness of breath but does not have wheezing I do not think this is a COPD exacerbation so I ordered a CTA to rule out PE. Th e scan shows no PE. There is a distended esophagus with air-fluid level. She has emphysema and a right middle lobe and lingula atelectasis or scarring and a pulmonary nodule. This was all seen on prior CT scan of the chest. I suspect her hypoxia is from underlying COPD. After 2 L of IV fluids her blood pressure is improving at 114/83. Since she still has generalized weakness and lives alone and was unable to get out of bed, as well as the fact that she has not equipped with home oxygen for her COPD, I think she requires admission. I discussed the case with the hospitalist. I reviewed recent records. She was admitted 03/03/2025 through 03/05/2025 for intractable nausea and vomiting, hematemesis, and hypoxia. EGD showed Franks's disease and hiatal hernia. Her hemoglobin remained stable and she continued her PPI. Acute hypoxia was thought to be secondary to atelectasis. She has emphysema and right anterior lung scar/atelectasis. Plan was assessed for home oxygen. Elevated troponin was thought to be secondary to demand ischemia from the hypoxia. Lab Data Attestation: I reviewed the patient's lab results. Labs: Laboratory Results - last 24 hr 03/07/25 03/07/25 03/07/25 13:50 14:10 15:20 WBC 16.6 H RBC 4.69 Hgb 14.3 Hct 42.1 MCV 89.8 MCH 30.5 MCHC 34.0 RDW Std Deviation 42.8 RDW Coeff of Tr 13.2 Plt Count 241 MPV 10.5 Immature Gran % (Auto) 0.400 Neut % (Auto) 72.0 H Lymph % (Auto) 21.1 Jess[place] % (Auto) 5.7 Eos % (Auto) 0.5 Baso % (Auto) 0.3 Absolute Neuts (auto) 12.0 H Absolute Lymphs (auto) 3.51 Nucleated RBC % 0 Sodium 136 Potassium 4.5 Chloride 95 L Carbon Dioxide 27.3 Anion Gap 14 BUN 55 H Creatinine 1.06 Estim Creat Clear Calc 39.21 L Est GFR (MDRD) Non-Af 57 L BUN/Creatinine Ratio 52.3 H Glucose 143 H Lactic Acid Cancelled 2.3 H* Calcium 9.4 Troponin T High Sens 63 H* D NT pro BNP II 3463 H Radiography Diagnostic Testing: Clinical Impression(s) from Imaging Studies Chest X-Ray 03/07/25 13:55 IMPRESSION: No acute cardiopulmonary process. Reading Location: [facility] Chest CTA 03/07/25 14:36 IMPRESSION: 1. No pulmonary embolism. 2. Distended esophagus with air-fluid level. Aspiration precaution is recommended. 3. Continue low-dose CT scan of the chest in 12 months is recommended. 4. Lung emphysema/COPD. Right middle lobe and lingula atelectasis or scarring. 3 mm nodule of the lateral left upper lobe. Reading Location: [facility] ED attending interpretation 1 view chest x-ray shows normal heart size, no acute infiltrate, edema, or effusion. EKG Initial EKG: Attestation: I personally reviewed and interpreted this EKG as follows: Interpretation: Sinus Rhythm and No Acute Injury Pattern Comments: Normal sinus rhythm at 98 bpm Biatrial enlargement, nonspecific intraventricular block No STEMI Discharge Plan Triage Chief Complaint: Shortness of Breath ED Midlevel Provider: Rosalind Mei ED Provider: Jean-Claude Ramirez Dx/Rx/DC Orders Clinical Impression: Dehydration, Hypoxemia, History of COPD, Acute lactic acidosis Prescriptions: No Action venlafaxine 150 mg capsule,extended release 24hr 150 mg PO DAILY esomeprazole magnesium [Nexium] 20 MG capsule 40 mg PO DAILY Patient Comments: acid reflux trazodone 50 mg Tablet 150 mg PO QHS Qty: 15 0RF ondansetron 4 mg tablet,disintegrating 4 mg PO Q8H PRN PRN (Reason: Nausea) Qty: 10 0RF albuterol sulfate 90 mcg/actuation HFA aerosol inhaler 2 puff inhalation Q4H PRN (Reason: shortness of breath or wheezing) nystatin 100,000 unit/mL Suspension 500,000 unit PO 4X/DAY Qty: 300 0RF Primary Care Provider: Gasper Nelson Referrals: Gasper Nelson DO [Primary Care Provider] - Print Language: Irish
--- NOTE | 2025-03-07 13:55 | RAD_ITS ---
EXAM: XR Chest, 1 View CLINICAL INDICATION: DYSPNEA TECHNIQUE: Frontal view of the chest. COMPARISON: No relevant prior studies available. FINDINGS: LUNGS AND PLEURAL SPACES: Unremarkable. No consolidation. No pneumothorax. HEART: Unremarkable. No cardiomegaly. MEDIASTINUM: Unremarkable. Normal mediastinal contour. BONES/JOINTS: Unremarkable. No acute fracture. RAD/Chest 1 View (Portable) IMPRESSION: No acute cardiopulmonary process. Reading Location: [facility]
--- OUTSIDE RECORDS SUMMARY | 2025-03-07 13:55 | XMS RPT_ITS | CCD ---
Author Organization [facility] CliniSymi Care Team Providers Care Environmental Services Technician Name Role Phone Danish Davila DO Primary Care Provider [place] DO, Gasper F Primary Care Provider [place] VICK, Gasper F Primary Care Provider [place] VICK, Gasper F Primary Care Provider Danish Davila DO Primary Care Provider Dr. Danish Davila DO Primary Care Provider Wilfred Bryan MD Emergency Provider Dr. Bunny Avilez DO Admit Provider Dr. Bunny Avilez DO Attending Provider Dr. Bunny Avilez DO Other Provider GASPER NELSON Attending Unavailable GASPER NELSON Referring Unavailable ARGENTINA, GASPER Primary Care Unavailable SIOMARA ESTRADA Attending Unavailable ARGENTINA, GASPER Primary Care Unavailable GASPER NELSON Attending Unavailable ARGENTINA, GASPER Primary Care Unavailable Dr. Abdulkadir Peralta DO Emergency Provider Dr. Gasper Nelson DO Primary Care Provider Dr. Tonja Jo MD Admit Provider Dr. Tonja Jo MD Attending Provider Tonja Jo Admitting Unavailable Tonja Jo Attending Unavailable Tonja Jo Consulting Unavailable Gasper Nelson Primary Care Unavailable Friend, Slim Attending Unavailable Bunny Avilez Consulting Unavailable Kelvin Falk Attending Unavailable Kelvin Falk Consulting Unavailable Danish Davila Primary Care Unavailable Bunny Avilez Admitting Unavailable Bunny Avilez Attending Unavailable Bunny Avilez Consulting Unavailable FriendSlim Attending Unavailable Danish Davila Referring Unavailable Giovanni, Danish Primary Care Unavailable Mathewsachavasile, Danish Primary Care Unavailable Bunny Avilez Attending Unavailable Bunny Avilez Admitting Unavailable Pooja Padilla Attending Unavailable Mathewjohno, Danish Primary Care Unavailable Eilsabet Ponce Attending Unavailable Gasper Nelson Primary Care Unavailable Slim Weiss Attending Unavailable FriendSlim Consulting Unavailable MathewjohnDanish carr Referring Unavailable Mathewjohnbruno, Danish Primary Care Unavailable Sandro CHISHOLM, Dr. Tonja Mendez Other Provider [phone] Dr. Kelvin Falk MD Attending Provider Unavaila olga Ponce MD, Dr. Bhandari Attending Provider Dr. Slim Weiss DO Attending Provider Dileep CHISHOLM, Dr. Warren Other Provider Unavailable Dr. Niko Castillo DO Emergency Provider Allergies Allergy Classification Reported Allergen(s) Allergy Type Date of Onset Reaction(s) Facility Sulfonamides (antibiotic) (1 source) Sulfonamides (Antibiotic) Drug Allergy 3 [facility] (20 sources) Sulfonamides (Antibiotic) Propensity to adverse reactions to drug 3 [facility] (10 sources) Sulfonamides (Antibiotic); Translations: [Sulfa (Sulfonamide Antibiotics)] Allergy to substance 5 [facility] Medications Current Medications Medication Drug Class(es) Dates Sig (Normalized) Sig (Original) [id number] 200 actuat albuterol 0.09 mg/actuat metered dose inhaler (20 sources) beta2-Adrenergic Agonist Start: 03-03-2025 Albuterol Sulfate 90 mcg/actuation HFA aerosol inhaler Active 2 NMA INHALATION Q4H as needed for shortness of breath or wheezing March 03, 2025 12:00am Start: 03-03-2025 Albuterol Sulf ate 90 mcg/actuation HFA aerosol inhaler Active INHALATION March 03, 2025 12:00am Start: 02-15-2025 End: 03-06-2025 Albuterol Sulfate 90 mcg/act uation aerosol powdr breath activated Discontinued 2 NMA INHALATION Q4H as needed for shortness of breath or wheezing February 15, 2025 12:00am March 06, 2025 5:58am Start: 03-20-2024 End: 02-15-2025 Albuterol Sulfate (Proventil [...] 20 mg/ml oral suspension (15 sources) Uncompetitive M-xvvbva-H-aspartat e Receptor Antagonist, Sigma-1 Agonist Start: 10-31-2024 [...] 2013 1:00am levoFLOXacin 500 mg oral tablet (11 sources) Quinolone Antimicrobial Start: 01-01-2024 End: 01-09-2024 [...] package. 21 tablet 0 11/14/2022 11/21/2022 Active nystatin 937756 unt/ml oral suspension (2 sources) Polyene Antifungal Start: 03-05-2025 take 367251 [IU] by mouth four times daily Nystatin 100,000 unit/mL Suspension Active 179262 U PO 4 TIMES DAILY 300 0 March 05, 2025 12:00am ondansetron 4 mg disintegrating oral tablet (20 sources) Serotonin-3 Receptor Antagonist Start: 03-06-2025 take 1 tablet by mouth every eight hours as needed for nausea Ondansetron 4 mg tablet,disintegra ting Active 4 mg PO EVERY 8 HOURS NEEDED as needed for Nausea 10 March 06, 2025 12:00am Start: 01-31-2022 End: 04-26-2024 take 1 tablet by mouth every eight hours as needed for nausea and vomiting Ondansetron 4 mg tablet,disintegrating Discontinued 4 mg PO Q8H as needed for nausea and vomiting 10 January 31, 2022 12:00am April 26, 2024 [...] 27, 2013 1:00am October 04, 2013 2:11pm psyllium 3400 mg powder for oral suspension [...] 90 tablet 1 12/13/2024 Active Start: 03-20-2024 End: 03-06-2025 Simvastatin 80 mg tablet Discontinued 40 mg PO AT BEDTIME March 20, 2024 12:00am March 06, 2025 5:58am depression Start: 12-24-2023 End: 12-13-2024 simvastatin (Zocor) 80 [...] mg PO DAILY March 20, 2024 12:00am depression Start: 07-25-2022 End: 09-30-2024 take 1 capsule [...] completed) cyclobenzaprine hydrochloride 10 mg oral tablet (9 sources) Muscle Relaxant Start: 08-08-2013 End: 09-27-2013 take 1 tablet by mouth three times daily Cyclobenzaprine 10 MG tablet Discontinued 10 mg PO THREE TIMES A DAY 10 August 08, 2013 1:00am September 27, 2013 11:20pm Do not take when driving or working. Use before sleep. docusate sodium 100 mg oral capsule (9 sources) Start: 05-23-2014 End: 04-26-2024 take 1 capsule by mouth twice daily as needed for constipation Docusate Sodium (Colace) 100 MG capsule Discontinued 100 mg PO TWICE DAILY NEEDED as needed for Constipation 60 0 May 23, 2014 12:00am April 26, 2024 2:32pm ferrous sulfate 325 mg oral tablet (9 sources) Start: 10-04-2013 End: 04-26-2024 take 1 [...] in error) metoclopramide 10 mg oral tablet (9 sources) Dopamine-2 Receptor Antagonist Start: 10-07-2013 End: 10-19-2013 take 1 tablet by mouth four times daily at bedtime Metoclopramide Hcl 10 MG tablet Discontinued 10 mg PO 4 TIMES DAILY 120 October 07, 2013 1:00am October 19, 2013 11:58am take one tablet before meals and at bedtime if needed to prevent nausea and vomiting metoprolol tartrate 25 mg oral tablet (9 sources) beta-Adrenergic Luigi Start: 10-04-2013 End: 10-19-2013 Metoprolol Tartrate 25 MG tablet Discontinued 12.5 mg PO TWICE A DAY 90 0 October 04, 2013 1:00am October 19, 2013 11:57am Start: 10-04-2013 End: 10-19-2013 take 12.5 mg by mouth twice daily Metoprolol Tartrate Discontinued 12.5 MG PO TWICE A DAY October 04, 2013 12:00am October 19, 2013 10:57am naproxen 500 mg oral tablet (9 sources) Nonsteroidal Anti-inflammatory Drug Start: 08-08-2013 End: 09-27-2013 take 1 tablet by mouth twice daily as needed for pain Naproxen 500 MG tablet Discontinued 500 mg PO TWICE DAILY NEEDED as needed for Pain August 08, 2013 1:00am September 27, 2013 11:20pm oxyCODONE hydrochloride 5 mg oral tablet (18 sources) Opioid Agonist Start: 05-14-2014 End: 04-26-2024 take 2 tablets by mouth every four hours as needed for pain Oxycodone 5 MG tablet Discontinued 10 mg PO EVERY 4 HOURS NEEDED as needed for Moderate Pain (pain scale 4-5) 30 0 May 23, 2014 8:15am April 26, 2024 2:33pm Start: 05-14-2014 End: 05-23-2014 take 10 mg by mouth every four hours as needed Oxycodone Active 10 MG PO EVERY 4 HOURS NEEDED May 23, 2014 7:15am potassium chloride 20 meq extended release oral tablet (9 sources) Start: 09-27-2013 End: 10-04-2013 Potassium Chloride (K-Dur) 20 MEQ tablet Discontinued 20 meq PO DAILY 30 0 September 27, 2013 1:00am October 04, 2013 2:11pm potassium gluconate 2.5 meq oral tablet (9 sources) Start: 05-13-2014 End: 03-20-2024 take 1 tablet by mouth once daily Potassium (Otc) (Potassium Otc) 99 MG tablet Discontinued 99 mg PO DAILY May 13, 2014 12:00am March 20, 2024 9:18am predniSONE 20 mg oral tablet (20 sources) Start: 02-10-2025 End: 03-06-2025 take 1 tablet by mouth twice daily, then take 1 tablet by mouth once daily Prednisone 20 mg tablet Discontinued 20 mg PO TWICE A DAY March 03, 2025 12:00am March 06, 2025 5:58am one twice a day for three days, then one daily until gone; unsure when it is finished Start: 10-31-2024 End: 11-12-2024 take 1 tablet [...] 1:11pm promethazine hydrochloride 25 mg oral tablet (9 sources) Phenothiazine Start: 05-23-2014 End: 04-26-2024 take 1 tablet by mouth every four hours as needed Promethazine 25 MG tablet Discontinued 25 mg PO EVERY 4 HOURS NEEDED as needed for N/V if zofran not working 10 0 May 23, 2014 12:00am April 26, 2024 2:33pm Problems Active Problems Problem Classification Problem Date Documented Da te Episodic/Chronic Abdominal pain (1 source) Abdominal pain; Translations: [Unspecified abdominal pain] 03-06-2025 Episodic Acute myocardial infarction (6 sources) Myocardial infarction; Translations: [Non-ST elevation (NSTEMI) myocardial infarction] 03-03-2025 Chronic Anxiety disorders (2 sources) Anxiety; Translations: [Anxiety disorder, unspecified] Chronic Chronic obstructive pulmonary disease and bronchiectasis (20 sources) Chronic obstructive lung disease; Translations: [Chronic obstructive pulmonary disease, unspecified] Onset: 5 09-06-2021 Chronic Deficiency and other anemia (9 sources) Chronic anemia; Translations: [Anemia, unspecified] 07-19-2015 Episodic Disorders of lipid metabolism (20 sources) Hypercholesterolemia; Translations: [Pure hypercholesterolemia, unspecified] Onset: Chronic E Codes: Fall (9 sources) Fall; Translations: [Unspecified fall, initial encounter] 10-23-2013 Episodic Esophageal disorders (20 sources) Gastroesophageal reflux disease; Translations: [Gastro-esophageal reflux disease without esophagitis] Onset: 0 01-31-2022 Chronic Fluid and electrolyte disorders (19 sources) Hypokalemia; Translations: [Hypokalemia] 10-23-2013 Episodic Gastrointestinal hemorrhage (5 sources) Hematemesis; Translations: [Hematemesis] Onset: 5 03-03-2025 Episodic Influenza (1 source) Influenza; Translations: [Influenza due to unidentified influenza virus with other respiratory manifestations] 10-31-2024 Episodic Mood disorders (16 sources) Depressive disorder; Translations: [Depression] 01-31-2022 Chronic Nausea and vomiting (16 sources) Nausea and vomiting; Translations: [Nausea with vomiting, unspecified] Onset: 5 07-19-2015 Episodic Other connective tissue disease (9 sources) Pain in lower limb; Translations: [Pain in leg, unspecified] 09-28-2013 Episodic Other gastrointestinal disorders (9 sources) Diarrhea; Translations: [Diarrhea, unspecified] 07-19-2015 Episodic Other lower respiratory disease (2 sources) Lower respiratory tract infection; Translations: [Unspecified acute lower respiratory infection] 12-22-2023 Episodic Other lower respiratory disease (7 sources) Imaging of lung abnormal ; Translations: [Other nonspecific abnormal finding of lung field] 02-22-2024 Episodic Other lower respiratory disease (10 sources) Hypoxia; Translations: [Hypoxemia] 02-15-2025 Episodic Other lower respiratory disease (6 sources) History of chronic obstructive airway disease; Translations: [Personal history of other diseases of the respiratory system] 03-03-2025 Episodic Other lower respiratory disease (6 sources) Hypoxemia; Translations: [Hypoxemia] 03-03-2025 Episodic Other screening for suspected conditions (not mental disorders or infectious disease) (16 sources) Patient encounter status; Translations: [Encounter for screening for malignant neoplasm of colon] Onset: 4 02-22-2024 Episodic Pathological fracture (9 sources) Pathological fracture of pelvis; Translations: [Pathological fracture, pelvis, initial encounter for fracture] 07-19-2015 Episodic Pneumonia (except that caused by tuberculosis or sexually transmitted disease) (8 sources) Pneumonia; Translations: [Pneumonia, unspecified organism] 02-08-2022 [...] digestive organs] 02-22-2024 Episodic Sprains and strains (9 sources) Low back strain; Translations: [Strain of muscle, fascia and tendon of lower back, initial encounter] 10-23-2013 Episodic Substance-related disorders (20 sources) Smoker; Translations: [Nicotine dependence, unspecified, uncomplicated] Onset: Chronic Superficial injury; contusion (9 sources) Contusion of hip; Translations: [Contusion of unspecified hip, initial encounter] 10-23-2013 Episodic Unclassified (4 sources) at next office visit Past or [...] Range Facility Absolute lymphocyte countOrd ered By: Nicko De Luna on 03-06-2025 Lymphocytes Auto (Unsp spec) [#/Vol] 2.12 10*3/uL 0.83-4.51 [facility] Absolute neutrophil countOrd ered By: Nicko De Luna on 03-06-2025 Neutrophils (Bld) [#/Vol] 7.8 10*3/uL High 2.0-7.7 [facility] Anion gap in Serum or Plasma Ordered By: Nicko De Luna on 03-06-2025 Anion gap [Moles/Vol] 11 mmol/L 5-15 [facility] Automated lymphocyte count a s percentage of total leukocytesOrdered By: Nicko De Luna on 03-06-2025 Lymphocytes/100 WBC Auto (Unsp spec) 19.6 % 19-41 [facility] BUN/creatinine ratioOrdered By: Nicko De Luna on 03-06-2025 Urea nitrogen/Creatinine [Mass ratio] 38.7 mg/mg High 10-20 [facility] Basophil percentageOrdered B y: Nicko De Luna on 03-06-2025 Basophils/100 WBC (Bld) 0.4 % 0-1 [facility] Bilirubin Test strip Ql (U)O rdered By: Nicko De Luna on 03-06-2025 Bilirubin Ql (U) Negative Negative [facility] Bilirubin, totalOrdered By: Nicko De Luna on 03-06-2025 Bilirubin [Mass/Vol] 0.62 mg/dL 0.00-1.30 [facility] Blood manual differential co mment interpretation (narrative result)Ordered By: Nicko De Luna on 03-06-2025 Manual differential comment Ji (Bld) [Interp] SCANNED [facility] Calcium oxalate crystals det ection in urine sediment by light microscopyOrdered By: Nicko De Luna on 03-06-2025 Calcium oxalate crystals LM Ql (Urine sed) 2+ /hpf [facility] Carbon dioxide, total [Moles /volume] in Central venous bloodOrdered By: Nicko De Luna on 03-06-2025 CO2 [Moles/Vol] 27.0 mmol/L 21.0-32.0 [facility] Chloride assayOrdered By: Asif De Luna on 03-06-2025 Chloride [Moles/Vol] 100 mmol/L 98-108 [facility] Eosinophil percentageOrdered By: Nicko De Luna on 03-06-2025 Eosinophils/100 WBC (Bld) 1.5 % 0-5 [facility] Erythrocyte distribution wid th ratioOrdered By: Nicko De Luna on 03-06-2025 Erythrocyte distribution width (RBC) [Ratio] 13.2 % 11.6-14.6 [facility] Erythrocyte distribution wid th standard deviationOrdered By: Nicko Johnson on 03-06-2025 Erythrocyte distribution width (RBC) [Ratio] 43.6 fl 35.1-43.9 [facility] Glomerular filtration rate ( GFR) estimation/1.73 sq m using serum, plasma, or whole bOrdered By: Nicko De Luna on 03-06-2025 GFR/1.73 sq M.predicted among non-blacks MDRD (S/P/Bld) [Vol rate/Area] 95 mL/min/{1.73_m2} >60 [facility] Comment on above: mL/min/1.73m2 CKD-EP I Creatinine Equation (2020) Hematocrit Auto (Bld) [Volum e fraction]Ordered By: Nicko Calixto on 03-06-2025 Hematocrit (Bld) [Volume fraction] 42.1 % 37-47 [facility] Hemoglobin measurementOrdere d By: Nicko De Luna on 03-06-2025 Hemoglobin (Bld) [Mass/Vol] 14.1 g/dL 12.0-15.0 [facility] Immature granulocytes/100 WB C Auto (Bld)Ordered By: Nicko De Luna on 03-06-2025 Immature granulocytes/100 WBC (Bld) 0.300 % 0.0-0.9 [facility] Comment on above: IG% - Immature Granu locytes (promyelocytes, myelocytes and metamyelocytes) > 1% indicates that a LEFT SHIFT is Present. Ketones Test strip Ql (U)Ord ered By: Nicko De Luna on 03-06-2025 Ketones Ql (U) Negative Negative [facility] - Chemistry and C hemistry - challengeOrdered By: Nicko De Luna on 03-06-2025 AST [Catalytic activity/Vol] 25 U/L <32 [facility] Lipase measurementOrdered By : Nicko De Luna on 03-06-2025 Lipase [Catalytic activity/Vol] 16 U/L 13-75 [facility] Comment on above: Please note:LIPASE r evised reference range effective 22. New Lipase methodology. Expected to produce lower values than the previous assay method. NEW Reference Range: 13 - 75 U/L MCV (mean corpuscular volume ) determinationOrdered By: Nicko De Luna on 03-06-2025 MCV (RBC) [Entitic vol] 90.3 fL 81-99 [facility] Mean corpuscular hemoglobin (MCH) determinationOrdered By: Nicko De Luna on 03-06-2025 MCH (RBC) [Entitic mass] 30.3 pg 27.0-32.0 [facility] Mean corpuscular hemoglobin concentration (MCHC) determinationOrdered By: Nicko De Luna on 03-06-2025 MCHC (RBC) [Mass/Vol] 33.5 g/dL 32-36 [facility] Mean platelet volume determi nationOrdered By: Nicko De Luna on 03-06-2025 Platelet mean volume (Bld) [Entitic vol] 10.6 fL 6.2-12.0 [facility] Microscopic analysis of urin e for red blood cells (RBC)Ordered By: Nicko De Luna on 03-06-2025 Microscopic analysis of urine for red blood cells (RBC) 0 SEEN /hpf 0-5 [facility] Monocyte percentageOrdered B y: Nicko De Luna on 03-06-2025 Monocytes/100 WBC (Bld) 5.8 % 0-10 [facility] Mucus LM Ql (Urine sed)Order ed By: Nicko De Luna on 03-06-2025 Mucus Ql (Urine sed) 0 SEEN /hpf [facility] Neutrophil percentageOrdered By: Nicko De Luna on 03-06-2025 Neutrophils/100 WBC (Bld) 72.4 % High 47-70 [facility] Nitrite Test strip Ql (U)Ord ered By: Nicko De Luna on 03-06-2025 Nitrite Ql (U) Negative Negative [facility] Nucleated red blood cell per centageOrdered By: Nicko De Luna on 03-06-2025 Nucleated RBC/100 WBC (Bld) [Ratio] 0 % 0-5 [facility] Platelet countOrdered By: Asif De Luna on 03-06-2025 Platelets (Bld) [#/Vol] 170 10*3/uL 150-450 [facility] Platelet estimateOrdered By: Nicko De Luna on 03-06-2025 Platelets LM Ql (Bld) ADEQUATE ADEQ [facility] Potassium measurement (mass/ volume)Ordered By: Nicko De Luna on 03-06-2025 Potassium (Unsp spec) [Mass/Vol] 3.0 mmol/L Low 3.3-5.1 [facility] Protein Test strip Ql (U)Ord ered By: Nicko De Luna on 03-06-2025 Protein Ql (U) 30 mg/dl High Negative [facility] RBC Auto (Bld) [#/Vol]Ordere d By: Nicko De Luna on 03-06-2025 RBC (Bld) [#/Vol] 4.66 10*6/uL 4.2-5.4 [facility] Serum creatinine measurement (mass/volume)Ordered By: Nicko De Luna on 03-06-2025 Creatinine [Mass/Vol] 0.63 mg/dL Low 0.70-1.20 [facility] Serum globulin measurementOr dered By: Nicko De Luna on 03-06-2025 Globulin (S) [Mass/Vol] 2.4 g/dL 2.2-4.2 [facility] Serum glucose measurement (m ass/volume)Ordered By: Nicko De Luna on 03-06-2025 Glucose [Mass/Vol] 153 mg/dL High 70-99 [facility] Serum or plasma alanine amrin otransferase (ALT) measurementOrdered By: Nicko De Luna on 03-06-2025 ALT [Catalytic activity/Vol] 22 U/L <35 [facility] Serum or plasma albumin janneth urement (mass/volume)Ordered By: Nicko Johnson on 03-06-2025 Albumin [Mass/Vol] 4.1 g/dL 3.4-4.8 [facility] Serum or plasma albumin/glob ulin mass ratioOrdered By: Nicko De Luna on 03-06-2025 Albumin/Globulin [Mass ratio] 1.7 {ratio} 0.9-2.4 [facility] Serum or plasma alkaline robert sphatase measurementOrdered By: Nicko De Luna on 03-06-2025 ALP [Catalytic activity/Vol] 65 U/L 35-104 [facility] Serum or plasma calcium janneth urement (mass/volume)Ordered By: Nicko Johnson on 03-06-2025 Calcium [Mass/Vol] 9.8 mg/dL 7.6-11.0 [facility] Serum or plasma urea nitroge n measurement (mass/volume)Ordered By: Nicko De Luna on 03-06-2025 Urea nitrogen [Mass/Vol] 24 mg/dL High 4-19 [facility] Sodium levelOrdered By: Brenden De Luna on 03-06-2025 Sodium [Moles/Vol] 138 mmol/L 133-145 [facility] Squamous epithelial cells de tection in urine sediment by light microscopyOrdered By: Nicko De Luna on 03-06-2025 Epithelial cells.squamous LM Ql (Urine sed) 0-5 SEEN /hpf 5-10 [facility] Total proteinOrdered By: Livan De Luna on 03-06-2025 Protein [Mass/Vol] 6.5 g/dL 5.9-8.4 [facility] Urine clarityOrdered By: Livan De Luna on 03-06-2025 Clarity (U) Clear Clear [facility] Urine color determinationOrd ered By: Nicko De Luna on 03-06-2025 Color (U) Yellow Yellow [facility] Urine glucose detectionOrder ed By: Nicko De Luna on 03-06-2025 Glucose Ql (U) 50 mg/dl High Normal [facility] Urine leukocyte esterase det ection by dipstickOrdered By: Nicko De Luna on 03-06-2025 Leukocyte esterase Test strip Ql (U) 25 /ul High Negative [facility] Urine pHOrdered By: Nicko Weaver on 03-06-2025 pH (U) 6.0 [pH] 5.0 - 8.0 [facility] Urine sediment bacteria coun t by microscopy (number/high power field)Ordered By: Nicko De Luna on 03-06-2025 Bacteria LM.HPF (Urine sed) [#/Area] 0 /[HPF] None Seen [facility] Urine specific gravity measu rementOrdered By: Nicko De Luna on 03-06-2025 Specific gravity (U) [Rel density] 1.020 1.002-1.030 [facility] Urine urobilinogen measureme ntOrdered By: Nicko De Luna on 03-06-2025 Urobilinogen Ql (U) 1 mg/dl High Normal [facility] White blood cell (WBC) count Ordered By: Nicko De Luna on 03-06-2025 WBC (Bld) [#/Vol] 10.8 10*3/uL 4.4-11.0 [facility] White blood cell countOrdere d By: Nicko De Luna on 03-06-2025 White blood cell count 0 SEEN /hpf 0-5 [facility] Absolute lymphocyte countOrd ered By: Kelvin Falk on 03-05-2025 Lymphocytes Auto (Unsp spec) [#/Vol] 1.17 10*3/uL 0.83-4.51 [facility] Absolute neutrophil countOrd ered By: Kelvin Falk on 03-05-2025 Neutrophils (Bld) [#/Vol] 8.3 10*3/uL High 2.0-7.7 [facility] Anion gap in Serum or Plasma Ordered By: Kelvin Falk on 03-05-2025 Anion gap [Moles/Vol] 16 mmol/L High 5-15 [facility] Automated lymphocyte count a s percentage of total leukocytesOrdered By: Kelvin Falk on 03-05-2025 Lymphocytes/100 WBC Auto (Unsp spec) 11.9 % Low 19-41 [facility] BUN/creatinine ratioOrdered By: Kelvin Falk on 03-05-2025 Urea nitrogen/Creatinine [Mass ratio] 31.2 mg/mg High 10- [facility] Basic Metabolic Profile (BMP )on 03-05-2025 BUN/CRE 31.2 RATIO High 06-23 [facility] Comment on above: Performed By: #### L 500.2500, L100.0100, L501.2300, [id number] #### [facility] [address] [place], [address] Calcium [Mass/Vol] 9.6 mg/dL Normal 7.6-11.0 [facility] Comment on above: Performed By: #### L 500.2500, L100.0100, L501.2300, [id number] #### [facility] [address] [place], [address] Chloride [Moles/Vol] 99 mmol/L Normal 98-108 [facility] Comment on above: Performed By: #### L 500.2500, L100.0100, L501.2300, [id number] #### [facility] [address] [place], [address] CO2 [Moles/Vol] 19.1 mmol/L Low 21.0-32.0 [facility] Comment on above: Performed By: #### L 500.2500, L100.0100, L501.2300, [id number] #### [facility] [address] [place], [address] Creatinine [Mass/Vol] 0.76 mg/dL Normal 0.70-1.20 [facility] Comment on above: Performed By: #### L 500.2500, L100.0100, L501.2300, [id number] #### [facility] [address] [place], [address] ECRCL 47.62 ml/min Low 50-250 [facility] Comment on above: Performed By: #### L 500.2500, L100.0100, L501.2300, [id number] #### [facility] [address] [place], [address] GAP 16 High 5-15 [facility] Comment on above: Performed By: #### L 500.2500, L100.0100, L501.2300, [id number] #### [facility] [address] [place], [address] GFR/1.73 sq M.predicted among non-blacks MDRD (S/P/Bld) [Vol rate/Area] 84 mL/min/{1.73_m2} Normal >60 [facility] Comment on above: Result Comment: mL/m in/1.73m2 CKD-EPI Creatinine Equation (2020) Performed By: #### L 500.2500, L100.0100, L501.2300, [id number] #### [facility] [address] [place], [address] Glucose [Mass/Vol] 148 mg/dL High 70-99 [facility] Comment on above: Performed By: #### L 500.2500, L100.0100, L501.2300, [id number] #### [facility] [address] [place], [address] Potassium [Moles/Vol] 3.6 mmol/L Normal 3.3-5.1 [facility] Comment on above: Result Comment: Hemo lysis present, Results??could be affected. ?? Performed By: #### L 500.2500, L100.0100, L501.2300, [id number] #### [facility] [address] [place], [address] Sodium [Moles/Vol] 134 mmol/L Normal 133-145 [facility] Comment on above: Performed By: #### L 500.2500, L100.0100, L501.2300, L501.5200 #### [facility] [address] [place], [address] Urea nitrogen [Mass/Vol] 24 mg/dL High 4-19 [facility] Comment on above: Performed By: #### L 500.2500, L100.0100, L501.2300, L501.5200 #### [facility] [address] [place], [address] Basophil percentageOrdered B y: Kelvin Falk on 03-05-2025 Basophils/100 WBC (Bld) 0.3 % 0-1 [facility] CBC W/Diff, Automatedon 07-0 Absolute Lymph 1.17 X10 3/uL Normal 0.83-4.51 [facility] Comment on above: Performed By: #### L 500.2500, L100.0100, L501.2300, L501.5200 #### [facility] [address] [place], [address] Absolute Neut 8.3 X10 3/uL High 2.0-7.7 [facility] Comment on above: Performed By: #### L 500.2500, L100.0100, L501.2300, L501.5200 #### [facility] [address] [place], [address] Basophils/100 WBC (Bld) 0.3 % Normal 0-1 [facility] Comment on above: Performed By: #### L 500.2500, L100.0100, L501.2300, L501.5200 #### [facility] [address] [place], [address] Eosinophils/100 WBC (Bld) 0.3 % Normal 0-5 [facility] Comment on above: Performed By: #### L 500.2500, L100.0100, L501.2300, L501.5200 #### [facility] [address] [place], [address] Erythrocyte distribution width (RBC) [Ratio] 13.2 % Normal 11.6-14.6 [facility] Comment on above: Performed By: #### L 500.2500, L100.0100, L501.2300, L501.5200 #### [facility] [address] [place], [address] Hematocrit (Bld) [Volume fraction] 40.6 % Normal 37-47 [facility] Comment on above: Performed By: #### L 500.2500, L100.0100, L501.2300, L501.5200 #### [facility] [address] [place], [address] Hemoglobin (Bld) [Mass/Vol] 13.6 g/dL Normal 12.0-15.0 [facility] Comment on above: Performed By: #### L 500.2500, L100.0100, L501.2300, L501.5200 #### [facility] [address] [place], [address] IG% 0.400 Normal 0.0-0.9 [facility] Comment on above: Result Comment: IG% - Immature Granulocytes (promyelocytes, myelocytes and metamyelocytes) > 1% indicates that a LEFT SHIFT is Present. Performed By: #### L 500.2500, L100.0100, L501.2300, L501.5200 #### [facility] [address] [place], [address] Lymphocytes/100 WBC (Bld) 11.9 % Low 19-41 [facility] Comment on above: Performed By: #### L 500.2500, L100.0100, L501.2300, L501.5200 #### [facility] [address] [place], [address] MCH (RBC) [Entitic mass] 30.3 pg Normal 27.0-32.0 [facility] Comment on above: Performed By: #### L 500.2500, L100.0100, L501.2300, L501.5200 #### [facility] [address] [place], [address] MCHC (RBC) [Mass/Vol] 33.5 g/dL Normal 32-36 [facility] Comment on above: Performed By: #### L 500.2500, L100.0100, L501.2300, L501.5200 #### [facility] [address] [place], [address] MCV (RBC) [Entitic vol] 90.4 fL Normal 81-99 [facility] Comment on above: Performed By: #### L 500.2500, L100.0100, L501.2300, L501.5200 #### [facility] [address] [place], [address] Monocytes/100 WBC (Bld) 2.4 % Normal 0-10 [facility] Comment on above: Performed By: #### L 500.2500, L100.0100, L501.2300, L501.5200 #### [facility] [address] [place], [address] Neutrophils/100 WBC (Bld) 84.7 % High 47-70 [facility] Comment on above: Performed By: #### L 500.2500, L100.0100, L501.2300, L501.5200 #### [facility] [address] [place], [address] Nucleated RBC (Bld) [#/Vol] 0 10*3/uL Normal 0-5 [facility] Comment on above: Performed By: #### L 500.2500, L100.0100, L501.2300, L501.5200 #### [facility] [address] [place], [address] Platelet mean volume (Bld) [Entitic vol] 10.3 fL Normal 6.2-12.0 [facility] Comment on above: Performed By: #### L 500.2500, L100.0100, L501.2300, L501.5200 #### [facility] [address] [place], [address] Platelets (Bld) [#/Vol] 227 10*3/uL Normal 150-450 [facility] Comment on above: Performed By: #### L 500.2500, L100.0100, L501.2300, L501.5200 #### [facility] [address] [place], [address] RBC (Bld) [#/Vol] 4.49 10*6/uL Normal 4.2-5.4 [facility] Comment on above: Performed By: #### L 500.2500, L100.0100, L501.2300, L501.5200 #### [facility] [address] [place], [address] RDW SD 43.2 fl Normal 35.1-43.9 [facility] Comment on above: Performed By: #### L 500.2500, L100.0100, L501.2300, L501.5200 #### [facility] [address] [place], [address] WBC (Bld) [#/Vol] 9.9 10*3/uL Normal 4.4-11.0 [facility] Comment on above: Performed By: #### L 500.2500, L100.0100, L501.2300, L501.5200 #### [facility] [address] [place], [address] Carbon dioxide, total [Moles /volume] in Central venous bloodOrdered By: Kelvin Falk on 03-05-2025 CO2 [Moles/Vol] 19.1 mmol/L Low 21.0-32.0 [facility] Chloride assayOrdered By: Boby Falk on 03-05-2025 Chloride [Moles/Vol] 99 mmol/L 98-108 [facility] Eosinophil percentageOrdered By: Kelvin Falk on 03-05-2025 Eosinophils/100 WBC (Bld) 0.3 % 0-5 [facility] Erythrocyte distribution wid th ratioOrdered By: Kelvin Falk on 03-05-2025 Erythrocyte distribution width (RBC) [Ratio] 13.2 % 11.6-14.6 [facility] Erythrocyte distribution wid th standard deviationOrdered By: Kelvin Falk on 03-05-2025 Erythrocyte distribution width (RBC) [Ratio] 43.2 fl 35.1-43.9 [facility] Glomerular filtration rate ( GFR) estimation/1.73 sq m using serum, plasma, or whole bOrdered By: Kelvin Falk on 03-05-2025 GFR/1.73 sq M.predicted among non-blacks MDRD (S/P/Bld) [Vol rate/Area] 84 mL/min/{1.73_m2} >60 [facility] Comment on above: mL/min/1.73m2 CKD-EP I Creatinine Equation (2020) Hematocrit Auto (Bld) [Volum e fraction]Ordered By: Kelvin Falk on 03-05-2025 Hematocrit (Bld) [Volume fraction] 40.6 % 37-47 [facility] Hemoglobin measurementOrdere d By: Kelvin Falk on 03-05-2025 Hemoglobin (Bld) [Mass/Vol] 13.6 g/dL 12.0-15.0 [facility] Immature granulocytes/100 WB C Auto (Bld)Ordered By: Kelvin Falk on 03-05-2025 Immature granulocytes/100 WBC (Bld) 0.400 % 0.0-0.9 [facility] Comment on above: IG% - Immature Granu locytes (promyelocytes, myelocytes and metamyelocytes) > 1% indicates that a LEFT SHIFT is Present. MCV (mean corpuscular volume ) determinationOrdered By: Kelvin Falk on 03-05-2025 MCV (RBC) [Entitic vol] 90.4 fL 81-99 [facility] Magnesiumon 03-05-2025 Magnesium [Mass/Vol] 1.8 mg/dL Normal 1.5-2.2 [facility] Comment on above: Performed By: #### L 500.2500, L100.0100, L501.2300, L501.5200 #### [facility] [address] [place], [place], [address] Magnesium measurement (mass/ volume)Ordered By: Kelvin Falk on 03-05-2025 Magnesium (Unsp spec) [Mass/Vol] 1.8 mg/dL 1.5-2.2 [facility] Mean corpuscular hemoglobin (MCH) determinationOrdered By: Kelvin Falk on 03-05-2025 MCH (RBC) [Entitic mass] 30.3 pg 27.0-32.0 [facility] Mean corpuscular hemoglobin concentration (MCHC) determinationOrdered By: Kelvin Falk on 03-05-2025 MCHC (RBC) [Mass/Vol] 33.5 g/dL 32-36 [facility] Mean platelet volume determi nationOrdered By: Kelvin Falk on 03-05-2025 Platelet mean volume (Bld) [Entitic vol] 10.3 fL 6.2-12.0 [facility] Monocyte percentageOrdered B y: Kelvin Falk on 03-05-2025 Monocytes/100 WBC (Bld) 2.4 % 0-10 [facility] Neutrophil percentageOrdered By: Kelvin Falk on 03-05-2025 Neutrophils/100 WBC (Bld) 84.7 % High 47-70 [facility] Nucleated red blood cell per centageOrdered By: Kelvin Falk on 03-05-2025 Nucleated RBC/100 WBC (Bld) [Ratio] 0 % 0-5 [facility] Phosphoruson 03-05-2025 Phosphate [Mass/Vol] 2.2 mg/dL Low 2.7-4.5 [facility] Comment on above: Result Comment: AMENDED REPORT 03/05/25 0812 PHOS previously reported as: 2.1 L mg/dL Performed By: #### L 500.2500, L100.0100, L501.2300, L501.5200 #### [facility] [address] [place], [address] Platelet countOrdered By: Boby Falk on 03-05-2025 Platelets (Bld) [#/Vol] 227 10*3/uL 150-450 [facility] Potassium measurement (mass/ volume)Ordered By: Kelvin Falk on 03-05-2025 Potassium (Unsp spec) [Mass/Vol] 3.6 mmol/L 3.3-5.1 [facility] Comment on above: Hemolysis present, R esults could be affected. RBC Auto (Bld) [#/Vol]Ordere d By: Kelvin Falk on 03-05-2025 RBC (Bld) [#/Vol] 4.49 10*6/uL 4.2-5.4 [facility] Serum creatinine measurement (mass/volume)Ordered By: Kelvin Falk on 03-05-2025 Creatinine [Mass/Vol] 0.76 mg/dL 0.70-1.20 [facility] Serum glucose measurement (m ass/volume)Ordered By: Kelvin Falk on 03-05-2025 Glucose [Mass/Vol] 148 mg/dL High 70-99 [facility] Serum or plasma calcium janneth urement (mass/volume)Ordered By: Kelvin Falk on 03-05-2025 Calcium [Mass/Vol] 9.6 mg/dL 7.6-11.0 [facility] Serum or plasma urea nitroge n measurement (mass/volume)Ordered By: Kelvin Falk on 03-05-2025 Urea nitrogen [Mass/Vol] 24 mg/dL High 4-19 [facility] Sodium levelOrdered By: Jack Falk on 03-05-2025 Sodium [Moles/Vol] 134 mmol/L 133-145 [facility] White blood cell (WBC) count Ordered By: Kelvin Falk on 03-05-2025 WBC (Bld) [#/Vol] 9.9 10*3/uL 4.4-11.0 [facility] Calculated very low density lipoprotein (VLDL) cholesterol measurementOrdered By: Tonja Jo on 03-04-2025 Calculated very low density lipoprotein (VLDL) cholesterol measurement 17 mg/dL 5-40 [facility] Electrocardiogram reportOrde red By: Ezequiel Gusman on 03-04-2025 EKG study [facility] [address] [place] [address] 12 Lead EKG 03/03/25 0556 MR#: [id number] Acct: [id number] Name: ASHLEY GÓMEZ Rep #:[id number] : 1955 69 From: Ezequiel Gusman MD Attending Dr: Dr. Bunny Avilez DO Status: ADM IN Ordering Dr: Tonja Jo MD Date: 03/03/25 Location: [facility] Sex: F C Admitted: 03/03/25 Test Reason : CP ADMISSION Blood Pressure : */* mmHG Vent. Rate : 83 BPM Atrial Rate : 83 BPM P-R Int : 148 ms QRS Dur : 70 ms QT Int : 386 ms P-R-T Axes : 81 23 46 degrees QTcB Int : 453 ms Normal sinus rhythm Possible Left atrial enlargement Septal infarct , age undetermined Abnormal ECG When compared with ECG of 02-Mar-2025 23:40, MANUAL COMPARISON REQUIRED DATA IS UNCONFIRMED Confirmed by MURTAZA CHISHOLM, EZEQUIEL ([id number]), department editor OSWALD ROSA ([id number]) on 03/04/2025 6:51:15 AM Referred By: Confirmed By: EZEQUIEL GUSMAN MD 03/04/25 0651 Date _ Ezequiel Gusman MD CC: Dr. Tonja Jo MD; Dr. Gasper Nelson DO; Dr. Bunny Avilez DO ~ Signed [facility] Other Phone: EKG study [facility] [address] [place] [address] 12 Lead EKG 03/02/25 2340 MR#: [id number] Acct: [id number] Name: ASHLEY GÓMEZ Rep #:[id number] : 1955 69 From: Ezequiel Gusman MD Attending Dr: Dr. Bunny Avilez DO Status: ADM IN Ordering Dr: Abdulkadir Peralta DO Date: Location: [facility] Sex: F C Admitted: 03/03/25 Test Reason : CP Blood Pressure : */* mmHG Vent. Rate : 84 BPM Atrial Rate : 84 BPM P-R Int : 154 ms QRS Dur : 60 ms QT Int : 390 ms P-R-T Axes : 81 25 65 degrees QTcB Int : 460 ms Normal sinus rhythm Right atrial enlargement Nonspecific ST abnormality Abnormal ECG Confirmed by MURTAZA CHISHOLM, EZEQUIEL ([id number]), department editor OSWALD ROSA ([id number]) on 03/04/2025 6:37:00 AM Referred By: KEVIN Confirmed By: EZEQUIEL GUSMAN MD 03/04/25 0637 Date _ Ezequiel Gusman MD CC: Dr. Gasper Nelson, ; Dr. Bunny Avilez DO; Dr. Abdulkadir Peralta DO ~ Signed [facility] Other Phone: LDL calc ser/plasOrdered By: Tonja Jo on 03-04-2025 Cholesterol in LDL [Mass/Vol] 147 mg/dL [facility] Comment on above: Yfjqijkccl=652-219 m g/dL & Higher Ollg=244 mg/dL or greater Lipid Profileon 03-04-2025 CHOL:HDL 4.27 Normal [facility] Comment on above: Performed By: #### L 501.1490, L503.6005, L500.4050, L300.8000, L100.0100 #### [facility] [address] [place], [address] Cholesterol [Mass/Vol] 215 mg/dL High <=200 [facility] Comment on above: Result Comment: Chol esterol level, Desirable <200 mg/dL Borderline high cholesterol 200-239 mg/dL High cholesterol >=240 mg/dL Recommendations of the NCEP Adult Treatment Panel for the following risk-cutoff thresholds for the [place] population. Performed By: #### L 501.2450, L503.6005, L500.4050, L300.8000, L100.0100 #### [facility] [address] [place], [address] Cholesterol in HDL [Mass/Vol] 50 mg/dL Normal [facility] Comment on above: Result Comment: Tonia onal Cholesterol Education Program (NCEP) guidelines: <40 mg/dL: Low HDL-cholesterol (major risk factor for CHD) >= 60 mg/dL: High HDL-cholesterol (negative risk factor for CHD) HDL-cholesterol is affected by a number of factors, e.g. smoking, exercise, hormones, sex and age. Performed By: #### L 501.2450, L503.6005, L500.4050, L300.8000, L100.0100 #### [facility] [address] [place], [address] Cholesterol in LDL [Mass/Vol] 147 mg/dL Normal [facility] Comment on above: Result Comment: Bord uazipe=592-302 mg/dL Higher Zfpe=506 mg/dL or greater Performed By: #### L 501.2450, L503.6005, L500.4050, L300.8000, L100.0100 #### [facility] [address] [place], [address] Cholesterol in VLDL [Mass/Vol] 17 mg/dL Normal 5-40 [facility] Comment on above: Performed By: #### L 501.2450, L503.6005, L500.4050, L300.8000, L100.0100 #### [facility] [address] [place], [address] Triglyceride [Mass/Vol] 87 mg/dL Normal [facility] Comment on above: Result Comment: The drugs N-Acetylcysteine and Metamizole may falsely depress this assay. Normal range: <150 mg/dL Borderline High: 150-199 mg/dL High: 200-499 mg/dL Very High: >500 mg/dL Performed By: #### L 501.2450, L503.6005, L500.4050, L300.8000, L100.0100 #### [facility] [address] [facility] [place], [address] Screening total cholesterol/ high density lipoprotein (HDL) cholesterol ratioOrdered By: Tonja Jo on 03-04-2025 Cholesterol.total/Choles terol in HDL [Mass ratio] 4.27 {ratio} [facility] Serum or plasma cholesterol in HDL measurement (mass/volume)Ordered By: Tonja Jo on 03-04-2025 Cholesterol in HDL [Mass/Vol] 50 mg/dL >40 [facility] Comment on above: National Cholesterol Education Program (NCEP) guidelines:<40 mg/dL: Low HDL-cholesterol (major risk factor for CHD)>= 60 mg/dL: High HDL-cholesterol (negative risk factor for CHD)HDL-cholesterol is affected by a number of factors, e.g. smoking, exercise, hormones, sex and age. Serum or plasma cholesterol measurement (mass/volume)Ordered By: Tonja Jo on 03-04-2025 Cholesterol [Mass/Vol] 215 mg/dL High <201 [facility] Comment on above: Cholesterol level, D esirable <200 mg/dLBorderline high cholesterol 200-239 mg/dLHigh cholesterol >=240 mg/dLRecommendations of the NCEP Adult Treatment Panel for the following risk-cutoff thresholds for the [place] population. Triglycerides measurementOrd ered By: Tonja Jo on 03-04-2025 Triglyceride [Mass/Vol] 87 mg/dL <199 [facility] Comment on above: The drugs N-Acetylcy steine and Metamizole may falsely depress this assay. Normal range: <150 mg/dLBorderline High: 150-199 mg/dLHigh: 200-499 mg/dLVery High: >500 mg/dL 12 Lead EKGon 03-03-2025 12 Lead EKG [facility] [address] [place] [address] 12 Lead EKG 03/03/25 0556 MR#: [id number] Acct: [id number] Name: ASHLEY GÓMEZ Rep #: [id number] : 1955 69 From: Ezequiel Gusman MD Attending Dr: Dr. Bunny Avilez DO Status: A DM IN Ordering Dr: Tonja Jo MD Date: 03/03/25 Location: [facility] Sex: F C Admitted: 03/03/25 Test Reason : CP ADMISSION Blood Pressure : */* mmHG Vent. Rate : 83 BPM Atrial Rate : 83 BPM P-R Int : 148 ms QRS Dur : 70 ms QT Int : 386 ms P-R-T Axes : 81 23 46 degrees QTcB Int : 453 ms Normal sinus rhythm Possible Left atrial enlargement Septal infarct , age undetermined Abnormal ECG When compared with ECG of 02-Mar-2025 23:40, MANUAL COMPARISON REQUIRED DATA IS UNCONFIRMED Confirmed by MURTAZA CHISHOLM, EZEQUIEL ([id number]), department editor OSWALD ROSA ([id number]) on 03/04/2025 6:51:15 AM Referred By: Confirmed By: EZEQUIEL GUSMAN MD 03/04/25 0651 Date Ezequiel Gusman MD CC: Dr. Tonja Jo MD; Dr. Gasper Nelson DO; Dr. Bunny Avilez DO Signed Normal [facility] Absolute lymphocyte countOrd ered By: Abdulkadir Peralta on 03-03-2025 Lymphocytes Auto (Unsp spec) [#/Vol] 2.54 10*3/uL 0.83-4.51 [facility] Absolute neutrophil countOrd ered By: Abdulkadir Peralta on 03-03-2025 Neutrophils (Bld) [#/Vol] 18.9 10*3/uL High 2.0-7.7 [facility] Anion gap in Serum or Plasma Ordered By: Abdulkadir Peralta on 03-03-2025 Anion gap [Moles/Vol] 17 mmol/L High 5-15 [facility] Automated lymphocyte count a s percentage of total leukocytesOrdered By: Abdulkadir Peralta on 03-03-2025 Lymphocytes/100 WBC Auto (Unsp spec) 11.1 % Low 19-41 [facility] BUN/creatinine ratioOrdered By: Remus Ungrachel on 03-03-2025 Urea nitrogen/Creatinine [Mass ratio] 33.1 mg/mg High 10-20 [facility] Basophil percentageOrdered B y: Remus Ungrachel on 03-03-2025 Basophils/100 WBC (Bld) 0.4 % 0-1 [facility] Bilirubin Test strip Ql (U)O rdered By: Abdulkadir Peralta on 03-03-2025 Bilirubin Ql (U) Negative Negative [facility] Bilirubin, totalOrdered By: Tonja White on 03-03-2025 Bilirubin [Mass/Vol] 0.48 mg/dL 0.00-1.30 [facility] Bilirubin, totalOrdered By: Abdulkadir Peralta on 03-03-2025 Bilirubin [Mass/Vol] 0.78 mg/dL 0.00-1.30 [facility] CBC W/Diff, Automatedon 02-04 0-2024 Absolute Lymph 1.17 X10 3/uL Normal 0.83-4.51 [facility] Comment on above: Performed By: #### L 501.2450, L503.6005, L500.4050, L300.8000, L100.0100 #### [facility] [address] [facility] [place], [address] Absolute Neut 14.3 X10 3/uL High 2.0-7.7 [facility] Comment on above: Performed By: #### L 501.2450, L503.6005, L500.4050, L300.8000, L100.0100 #### [facility] [address] [place], [address] Basophils/100 WBC (Bld) 0.3 % Normal 0-1 [facility] Comment on above: Performed By: #### L 501.2450, L503.6005, L500.4050, L300.8000, L100.0100 #### [facility] [address] [place], [address] Eosinophils/100 WBC (Bld) 0.1 % Normal 0-5 [facility] Comment on above: Performed By: #### L 501.2450, L503.6005, L500.4050, L300.8000, L100.0100 #### [facility] [address] [place], [address] Erythrocyte distribution width (RBC) [Ratio] 13.4 % Normal 11.6-14.6 [facility] Comment on above: Performed By: #### L 501.2450, L503.6005, L500.4050, L300.8000, L100.0100 #### [facility] [address] [place], [address] Hematocrit (Bld) [Volume fraction] 43.2 % Normal 37-47 [facility] Comment on above: Performed By: #### L 501.2450, L503.6005, L500.4050, L300.8000, L100.0100 #### [facility] [address] [place], [address] Hemoglobin (Bld) [Mass/Vol] 14.6 g/dL Normal 12.0-15.0 [facility] Comment on above: Performed By: #### L 501.2450, L503.6005, L500.4050, L300.8000, L100.0100 #### [facility] [address] [place], [address] IG% 0.300 Normal 0.0-0.9 [facility] Comment on above: Result Comment: IG% - Immature Granulocytes (promyelocytes, myelocytes and metamyelocytes) > 1% indicates that a LEFT SHIFT is Present. Performed By: #### L 501.2450, L503.6005, L500.4050, L300.8000, L100.0100 #### [facility] [address] [place], [address] Lymphocytes/100 WBC (Bld) 7.3 % Low 19-41 [facility] Comment on above: Performed By: #### L 501.2450, L503.6005, L500.4050, L300.8000, L100.0100 #### [facility] [address] [place], [address] MCH (RBC) [Entitic mass] 30.3 pg Normal 27.0-32.0 [facility] Comment on above: Performed By: #### L 501.2450, L503.6005, L500.4050, L300.8000, L100.0100 #### [facility] [address] [place], [address] MCHC (RBC) [Mass/Vol] 33.8 g/dL Normal 32-36 [facility] Comment on above: Performed By: #### L 501.2450, L503.6005, L500.4050, L300.8000, L100.0100 #### [facility] [address] [place], [address] MCV (RBC) [Entitic vol] 89.6 fL Normal 81-99 [facility] Comment on above: Performed By: #### L 501.2450, L503.6005, L500.4050, L300.8000, L100.0100 #### [facility] [address] [place], [address] Monocytes/100 WBC (Bld) 3.5 % Normal 0-10 [facility] Comment on above: Performed By: #### L 501.2450, L503.6005, L500.4050, L300.8000, L100.0100 #### [facility] [address] [place], [address] Neutrophils/100 WBC (Bld) 88.5 % High 47-70 [facility] Comment on above: Performed By: #### L 501.2450, L503.6005, L500.4050, L300.8000, L100.0100 #### [facility] [address] [place], [address] Nucleated RBC (Bld) [#/Vol] 0 10*3/uL Normal 0-5 [facility] Comment on above: Performed By: #### L 501.2450, L503.6005, L500.4050, L300.8000, L100.0100 #### [facility] [address] [place], [address] Platelet mean volume (Bld) [Entitic vol] 9.9 fL Normal 6.2-12.0 [facility] Comment on above: Performed By: #### L 501.2450, L503.6005, L500.4050, L300.8000, L100.0100 #### [facility] [address] [place], [address] Platelets (Bld) [#/Vol] 265 10*3/uL Normal 150-450 [facility] Comment on above: Performed By: #### L 501.2450, L503.6005, L500.4050, L300.8000, L100.0100 #### [facility] [address] [place], [address] RBC (Bld) [#/Vol] 4.82 10*6/uL Normal 4.2-5.4 [facility] Comment on above: Performed By: #### L 501.2450, L503.6005, L500.4050, L300.8000, L100.0100 #### [facility] [address] [place], [address] RDW SD 43.7 fl Normal 35.1-43.9 [facility] Comment on above: Performed By: #### L 501.2450, L503.6005, L500.4050, L300.8000, L100.0100 #### [facility] [address] [place], [address] WBC (Bld) [#/Vol] 16.1 10*3/uL High 4.4-11.0 [facility] Comment on above: Performed By: #### L 501.2450, L503.6005, L500.4050, L300.8000, L100.0100 #### [facility] [address] [place], [address] Absolute Lymph 2.54 X10 3/uL Normal 0.83-4.51 [facility] Comment on above: Performed By: #### L 501.2450, L503.6005, L500.4050, L300.8000, L100.0100 #### [facility] [address] [place], [address] Absolute Neut 18.9 X10 3/uL High 2.0-7.7 [facility] Comment on above: Performed By: #### L 501.2450, L503.6005, L500.4050, L300.8000, L100.0100 #### [facility] [address] [place], [address] Basophils/100 WBC (Bld) 0.4 % Normal 0-1 [facility] Comment on above: Performed By: #### L 501.2450, L503.6005, L500.4050, L300.8000, L100.0100 #### [facility] [address] [place], [address] Eosinophils/100 WBC (Bld) 0.3 % Normal 0-5 [facility] Comment on above: Performed By: #### L 501.2450, L503.6005, L500.4050, L300.8000, L100.0100 #### [facility] [address] [place], [address] Erythrocyte distribution width (RBC) [Ratio] 13.3 % Normal 11.6-14.6 [facility] Comment on above: Performed By: #### L 501.2450, L503.6005, L500.4050, L300.8000, L100.0100 #### [facility] [address] [place], [address] Hematocrit (Bld) [Volume fraction] 46.5 % Normal 37-47 [facility] Comment on above: Performed By: #### L 501.2450, L503.6005, L500.4050, L300.8000, L100.0100 #### [facility] [address] [place], [address] Hemoglobin (Bld) [Mass/Vol] 15.9 g/dL High 12.0-15.0 [facility] Comment on above: Performed By: #### L 501.2450, L503.6005, L500.4050, L300.8000, L100.0100 #### [facility] [address] [place], [address] IG% 0.400 Normal 0.0-0.9 [facility] Comment on above: Result Comment: IG% - Immature Granulocytes (promyelocytes, myelocytes and metamyelocytes) > 1% indicates that a LEFT SHIFT is Present. Performed By: #### L 501.2450, L503.6005, L500.4050, L300.8000, L100.0100 #### [facility] [address] [place], [address] Lymphocytes/100 WBC (Bld) 11.1 % Low 19-41 [facility] Comment on above: Performed By: #### L 501.2450, L503.6005, L500.4050, L300.8000, L100.0100 #### [facility] [address] [place], [address] MCH (RBC) [Entitic mass] 30.5 pg Normal 27.0-32.0 [facility] Comment on above: Performed By: #### L 501.2450, L503.6005, L500.4050, L300.8000, L100.0100 #### [facility] [address] [place], [address] MCHC (RBC) [Mass/Vol] 34.2 g/dL Normal 32-36 [facility] Comment on above: Performed By: #### L 501.2450, L503.6005, L500.4050, L300.8000, L100.0100 #### [facility] [address] [place], [address] MCV (RBC) [Entitic vol] 89.3 fL Normal 81-99 [facility] Comment on above: Performed By: #### L 501.2450, L503.6005, L500.4050, L300.8000, L100.0100 #### [facility] [address] [place], [address] Monocytes/100 WBC (Bld) 5.4 % Normal 0-10 [facility] Comment on above: Performed By: #### L 501.2450, L503.6005, L500.4050, L300.8000, L100.0100 #### [facility] [address] [place], [address] Neutrophils/100 WBC (Bld) 82.4 % High 47-70 [facility] Comment on above: Performed By: #### L 501.2450, L503.6005, L500.4050, L300.8000, L100.0100 #### [facility] [address] [place], [address] Nucleated RBC (Bld) [#/Vol] 0 10*3/uL Normal 0-5 [facility] Comment on above: Performed By: #### L 501.2450, L503.6005, L500.4050, L300.8000, L100.0100 #### [facility] [address] [place], [address] Platelet mean volume (Bld) [Entitic vol] 10.1 fL Normal 6.2-12.0 [facility] Comment on above: Performed By: #### L 501.2450, L503.6005, L500.4050, L300.8000, L100.0100 #### [facility] [address] [place], [address] Platelets (Bld) [#/Vol] 281 10*3/uL Normal 150-450 [facility] Comment on above: Performed By: #### L 501.2450, L503.6005, L500.4050, L300.8000, L100.0100 #### [facility] [address] [place], [address] RBC (Bld) [#/Vol] 5.21 10*6/uL Normal 4.2-5.4 [facility] Comment on above: Performed By: #### L 501.2450, L503.6005, L500.4050, L300.8000, L100.0100 #### [facility] [address] [place], [address] RDW SD 43.3 fl Normal 35.1-43.9 [facility] Comment on above: Performed By: #### L 501.2450, L503.6005, L500.4050, L300.8000, L100.0100 #### [facility] [address] [place], [address] WBC (Bld) [#/Vol] 22.9 10*3/uL High 4.4-11.0 [facility] Comment on above: Performed By: #### L 501.2450, L503.6005, L500.4050, L300.8000, L100.0100 #### [facility] [address] [place], [address] CT Chest, Abd, Pel w/Contras ton 03-03-2025 CT Chest, Abd, Pel w/Contrast [facility] [address] [place] [address] CT Chest, Abd, Pel w/Contrast MR#: [id number] Acct: [id number] Name: ASHLEY GÓMEZ Rep #: [id number] : 1955 F 69 From: Ruddy Vidales MD PCP: Dr. Gasper Nelson, Status: REG ER Study: CT Chest, Abd, Pel w/Contrast Date of Exam: Exam# [id number] Ordering Dr: Abdulkadir Peralat DO PROCEDURE: CT CHEST, ABD, PEL W/CONTRAST [...] lung band atelectasis. Esophageal reflux. Reading Location: [place] [address] CC: Dr. Gasper Nelson ; Dr. Abdulkadir Peralta DO Department Editor: Signed Normal [facility] Carbon dioxide, total [Moles /volume] in Central venous bloodOrdered By: Abdulkadir Peralta on 03-03-2025 CO2 [Moles/Vol] 24.4 mmol/L 21.0-32.0 [facility] Chloride assayOrdered By: Sol Peralta on 03-03-2025 Chloride [Moles/Vol] 97 mmol/L Low 98-108 [facility] Comprehensive Metabolic Prof ilon 03-03-2025 Albumin [Mass/Vol] 4.4 g/dL Normal 3.4-4.8 [facility] Comment on above: Performed By: #### L 501.2450, L503.6005, L500.4050, L300.8000, L100.0100 #### [facility] [address] [place], [address] Albumin/Globulin [Mass ratio] 1.6 {ratio} Normal 0.9-2.4 [facility] Comment on above: Performed By: #### L 501.2450, L503.6005, L500.4050, L300.8000, L100.0100 #### [facility] [address] [place], [address] ALK PHOS 78 U/L Normal 35-104 [facility] Comment on above: Performed By: #### L 501.2450, L503.6005, L500.4050, L300.8000, L100.0100 #### [facility] [address] [place], [address] ALT [Catalytic activity/Vol] 40 U/L High <=34 [facility] Comment on above: Performed By: #### L 501.2450, L503.6005, L500.4050, L300.8000, L100.0100 #### [facility] [address] [place], [address] AST [Catalytic activity/Vol] 40 U/L High <=31 [facility] Comment on above: Performed By: #### L 501.2450, L503.6005, L500.4050, L300.8000, L100.0100 #### [facility] [address] [place], [address] Bilirubin [Mass/Vol] 0.78 mg/dL Normal 0.00-1.30 [facility] Comment on above: Performed By: #### L 501.2450, L503.6005, L500.4050, L300.8000, L100.0100 #### [facility] [address] [place], [address] BUN/CRE 33.1 RATIO High 10-20 [facility] Comment on above: Performed By: #### L 501.2450, L503.6005, L500.4050, L300.8000, L100.0100 #### [facility] [address] [place], [address] Calcium [Mass/Vol] 10.5 mg/dL Normal 7.6-11.0 [facility] Comment on above: Performed By: #### L 501.2450, L503.6005, L500.4050, L300.8000, L100.0100 #### [facility] [address] [place], [address] Chloride [Moles/Vol] 97 mmol/L Low 98-108 [facility] Comment on above: Performed By: #### L 501.2450, L503.6005, L500.4050, L300.8000, L100.0100 #### [facility] [address] [place], [address] CO2 [Moles/Vol] 24.4 mmol/L Normal 21.0-32.0 [facility] Comment on above: Performed By: #### L 501.2450, L503.6005, L500.4050, L300.8000, L100.0100 #### [facility] [address] [place], [address] Creatinine [Mass/Vol] 1.09 mg/dL Normal 0.70-1.20 [facility] Comment on above: Performed By: #### L 501.2450, L503.6005, L500.4050, L300.8000, L100.0100 #### [facility] [address] [place], [address] ECRCL 37.91 ml/min Low 50-250 [facility] Comment on above: Performed By: #### L 501.2450, L503.6005, L500.4050, L300.8000, L100.0100 #### [facility] [address] [place], [address] GAP 17 High 5-15 [facility] Comment on above: Performed By: #### L 501.2450, L503.6005, L500.4050, L300.8000, L100.0100 #### [facility] [address] [place], [address] GFR/1.73 sq M.predicted among non-blacks MDRD (S/P/Bld) [Vol rate/Area] 55 mL/min/{1.73_m2} Low >60 [facility] Comment on above: Result Comment: mL/m in/1.73m2 CKD-EPI Creatinine Equation (2020) Performed By: #### L 501.2450, L503.6005, L500.4050, L300.8000, L100.0100 #### [facility] [address] [place], [address] Globulin (S) [Mass/Vol] 2.7 g/dL Normal 2.2-4.2 [facility] Comment on above: Performed By: #### L 501.2450, L503.6005, L500.4050, L300.8000, L100.0100 #### [facility] [address] [place], [address] Glucose [Mass/Vol] 154 mg/dL High 70-99 [facility] Comment on above: Performed By: #### L 501.2450, L503.6005, L500.4050, L300.8000, L100.0100 #### [facility] [address] [place], [address] Potassium [Moles/Vol] 3.4 mmol/L Normal 3.3-5.1 [facility] Comment on above: Performed By: #### L 501.2450, L503.6005, L500.4050, L300.8000, L100.0100 #### [facility] [address] [place], [address] Sodium [Moles/Vol] 138 mmol/L Normal 133-145 [facility] Comment on above: Performed By: #### L 501.2450, L503.6005, L500.4050, L300.8000, L100.0100 #### [facility] [address] [place], [address] T PROT 7.0 g/dL Normal 5.9-8.4 [facility] Comment on above: Performed By: #### L 501.2450, L503.6005, L500.4050, L300.8000, L100.0100 #### [facility] [address] [place], [address] Urea nitrogen [Mass/Vol] 36 mg/dL High 4-19 [facility] Comment on above: Performed By: #### L 501.2450, L503.6005, L500.4050, L300.8000, L100.0100 #### [facility] [address] [place], [address] Albumin [Mass/Vol] 4.1 g/dL Normal 3.4-4.8 [facility] Comment on above: Performed By: #### L 501.2450, L503.6005, L500.4050, L300.8000, L100.0100 #### [facility] [address] [place], [address] Albumin/Globulin [Mass ratio] 1.7 {ratio} Normal 0.9-2.4 [facility] Comment on above: Performed By: #### L 501.2450, L503.6005, L500.4050, L300.8000, L100.0100 #### [facility] [address] [place], [address] ALK PHOS 73 U/L Normal 35-104 [facility] Comment on above: Performed By: #### L 501.2450, L503.6005, L500.4050, L300.8000, L100.0100 #### [facility] [address] [place], [address] ALT [Catalytic activity/Vol] 36 U/L High <=34 [facility] Comment on above: Performed By: #### L 501.2450, L503.6005, L500.4050, L300.8000, L100.0100 #### [facility] [address] [place], [address] AST [Catalytic activity/Vol] 37 U/L High <=31 [facility] Comment on above: Performed By: #### L 501.2450, L503.6005, L500.4050, L300.8000, L100.0100 #### [facility] [address] [place], [address] Bilirubin [Mass/Vol] 0.48 mg/dL Normal 0.00-1.30 [facility] Comment on above: Performed By: #### L 501.2450, L503.6005, L500.4050, L300.8000, L100.0100 #### [facility] [address] [place] [place], [address] BUN/CRE 35.4 RATIO High 10-20 [facility] Comment on above: Performed By: #### L 501.2450, L503.6005, L500.4050, L300.8000, L100.0100 #### [facility] [address] [place], [address] Calcium [Mass/Vol] 9.8 mg/dL Normal 7.6-11.0 [facility] Comment on above: Performed By: #### L 501.2450, L503.6005, L500.4050, L300.8000, L100.0100 #### [facility] [address] [place], [address] Chloride [Moles/Vol] 101 mmol/L Normal 98-108 [facility] Comment on above: Performed By: #### L 501.2450, L503.6005, L500.4050, L300.8000, L100.0100 #### [facility] [address] [place], [address] CO2 [Moles/Vol] 26.0 mmol/L Normal 21.0-32.0 [facility] Comment on above: Performed By: #### L 501.2450, L503.6005, L500.4050, L300.8000, L100.0100 #### [facility] [address] [place], [address] Creatinine [Mass/Vol] 0.95 mg/dL Normal 0.70-1.20 [facility] Comment on above: Performed By: #### L 501.2450, L503.6005, L500.4050, L300.8000, L100.0100 #### [facility] [address] [place], [address] ECRCL 40.97 ml/min Low 50-250 [facility] Comment on above: Performed By: #### L 501.2450, L503.6005, L500.4050, L300.8000, L100.0100 #### [facility] [address] [place], [address] GAP 14 Normal 5-15 [facility] Comment on above: Performed By: #### L 501.2450, L503.6005, L500.4050, L300.8000, L100.0100 #### [facility] [address] [place], [address] GFR/1.73 sq M.predicted among non-blacks MDRD (S/P/Bld) [Vol rate/Area] 65 mL/min/{1.73_m2} Normal >60 [facility] Comment on above: Result Comment: mL/m in/1.73m2 CKD-EPI Creatinine Equation (2020) Performed By: #### L 501.2450, L503.6005, L500.4050, L300.8000, L100.0100 #### [facility] [address] [place], [address] Globulin (S) [Mass/Vol] 2.4 g/dL Normal 2.2-4.2 [facility] Comment on above: Performed By: #### L 501.2450, L503.6005, L500.4050, L300.8000, L100.0100 #### [facility] [address] [place], [address] Glucose [Mass/Vol] 144 mg/dL High 70-99 [facility] Comment on above: Performed By: #### L 501.2450, L503.6005, L500.4050, L300.8000, L100.0100 #### [facility] [address] [place], [address] Potassium [Moles/Vol] 3.5 mmol/L Normal 3.3-5.1 [facility] Comment on above: Performed By: #### L 501.2450, L503.6005, L500.4050, L300.8000, L100.0100 #### [facility] [address] [place], [address] Sodium [Moles/Vol] 141 mmol/L Normal 133-145 [facility] Comment on above: Performed By: #### L 501.2450, L503.6005, L500.4050, L300.8000, L100.0100 #### [facility] [address] [place], [address] T PROT 6.5 g/dL Normal 5.9-8.4 [facility] Comment on above: Performed By: #### L 501.2450, L503.6005, L500.4050, L300.8000, L100.0100 #### [facility] [address] [place], [address] Urea nitrogen [Mass/Vol] 34 mg/dL High 4-19 [facility] Comment on above: Performed By: #### L 501.2450, L503.6005, L500.4050, L300.8000, L100.0100 #### [facility] [address] [place], [address] D-Dimer Quantitative (DVT/PE )on 03-03-2025 D-DIMER QUANT 0.53 FEU/ug/m Invalid Interpretation Code 0.27-0.49 [facility] Comment on above: Result Comment: D-Di nikki ELEVATED (>0.49): Additional studies and clinical assessments are indicated to conclude diagnosis of: Deep Vein Thrombosis (DVT) or Pulmonary Embolism (PE) CRITICAL VALUE CALLED TO RBARTOLONE 03/03/25 0126 Jalen Jonas. RESULTS READ BACK BY SAME. Performed By: #### L 501.2450, L503.6005, L500.4050, L300.8000, L100.0100 #### [facility] [address] [facility] [place], [address] EGD Reporton 03-03-2025 EGD Report [facility] Medical Records Department [address] [place] [address] EGD Report MR#: [id number] Acct: [id number] Name: ASHLEY GÓMEZ Rep #: [id number] : 1955 69 From: Slim Weiss DO PCP: Dr. Gasper Nelson DO Status:ADM IN Patient Name: Ashley Gómez Procedure Date: 03/03/2025 1:55 PM Date of : 1955 Age: 69 Procedure: Upper GI endoscopy Indications: Epigastric abdominal pain, Coffee-ground emesis Providers: Slim Weiss DO Medicines: Monitored Anesthesia Care Patient Profile: This is a 69 year old female. Refer to note in patient chart for documentation of history and physical. Patient has symptoms of acute epigastric abdominal pain, acute nausea and acute vomiting. Complications: No immediate complications. Procedure: Pre-Anesthesia Assessment: [...] CV Examination: normal. Prophylactic Antibiotics: The patient requires prophylactic antibiotics due to a prior history of acute GI bleeding. Prior Anticoagulants: The patient has taken Eliquis (apixaban), last dose was 1 day prior to procedure. ASA Grade Assessment: II - A patient [...] patient was re-assessed after the procedure. After obtaining informed consent, the endoscope was passed under direct vision. Throughout the procedure, the patient's blood pressure, pulse, and oxygen saturations were monitored continuously. The Endoscope was introduced through the mouth, and advanced to the fourth part of the duodenum. Small bowel enteroscopy was deemed necessary. The upper GI endoscopy was accomplished without difficulty. The patient tolerated the procedure well. Scope In: 1:56:24 PM Scope Out: 1:59:44 PM Total Procedure Duration Time 0 hours 3 minutes 20 seconds Findings: There were esophageal mucosal changes secondary to established long-segment Franks's disease present in the lower third of the esophagus. The maximum longitudinal extent of these mucosal changes was 4 cm in length. Mucosa was biopsied with a cold forceps for histology in a targeted manner at intervals of 1 cm in the lower third of the esophagus. One specimen bottle was sent to pathology. Verification of patient identification for the specimen was done. Estimated blood loss was minimal. A hiatal hernia was present. No gross lesions were noted in the entire examined stomach. No gross lesions were noted in the entire examined duodenum. Retained fluid was found in the gastric body. Impression: - Esophageal mucosal changes secondary to established long-segment Franks's disease. Biopsied. - Hiatal hernia. - No gross lesions in the entire stomach. - No gross lesions in the entire examined duodenum. Recommendation: - [facility]. - Resume previous diet. - Continue present medications. - Await pathology results. Procedure Code(s): --- Professional --- 90169, Small intestinal endoscopy, enteroscopy beyond second portion of duodenum, not including ileum; with biopsy, single or multiple CPT copyright 2021 [employer]. All rights reserved. The codes documented in this report are preliminary and upon unit technician review may be revised to meet current compliance requirements. Slim Weiss DO 03/03/2025 2:03:52 PM This report has been signed electronically. Number of Addenda: 0 Note Initiated On: 03/03/2025 1:55 PM 03/03/25 1404 Date Slim Friend Cosigner Signature: Date (if indicated) CC: Dr. Gasper Nelson DO; Slim Friend, Date Dictated: 03/03/25 1355 Date Transcribed: Department Editor: WES Signed Normal [facility] Echo Completeon 03-03-2025 Echo Complete [facility] [address] [facility] [place] [address] Echo Complete 03/03/25 0947 MR#: [id number] Acct: [id number] Name: ASHLEY GÓMEZ Rep #: [id number] : 1955 69 From: Elisabet Ponce MD Attending Dr: Dr. Bunny Avilez DO Status: A DM IN Ordering Dr: Tonja Jo MD Date: 03/03/25 Location: [facility] Sex: F C Admitted: 03/03/25 Reason For Study Reason For Study: CHEST PAIN Procedure This was a 2D Doppler, Color Flow transthoracic echocardiogram. Exam performed portable in patient room. Left Ventricle Normal left ventricle. The estimated ejection fraction is 60-65 %. Right Ventricle Normal RV size. Normal systolic function. Atria Normal left atrium. Normal right atrium. Mitral Valve There is mild mitral annular calcification. Posterior leaflet mitral valve prolapse. Tricuspid Valve Normal tricuspid valve. Aortic Valve Moderate diffuse aortic valve calcification. Pulmonic Valve The pulmonic valve is not well visualized. Great Vessels The aortic root is not well visualized. Pericardium/Pleural No pericardial effusion. MMode/2D Measurements Calculations LVIDd: 4.2 cm IVSd: 0.98 cm LVOT diam: 2.0 cm LVIDs: 2.2 cm LVPWd: 0.81 cm LVOT area: 3.0 cm2 RVDd: 2.7 cm FS: 48.1 % __ asc Aorta Diam: 2.2 cm LAV(MOD-bp): 15.3 ml LVAd ap4: 15.5 cm2 LAV(MOD-bp) Indexed: 10.4 ml/m2 LVLd ap4: 5.8 cm LAV(MOD-sp2): 23.2 ml EDV(MOD-sp4): 34.6 ml LAV(MOD-sp4): 8.7 ml EDV(sp4-el): 35.6 ml LVAs ap4: 8.0 cm2 LVLs ap4: 4.6 cm ESV(MOD-sp4): 11.0 ml ESV(sp4-el): 11.8 ml EF(MOD-sp4): 68.1 % EF(sp4-el): 66.9 % __ LVAd ap2: 14.3 cm2 SV(MOD-sp4): 23.6 ml SV(MOD-sp2): 19.2 ml LVLd ap2: 6.0 cm SI(MOD-sp4): 16.0 ml/m2 SI(MOD-sp2): 13.0 ml/m2 EDV(MOD-sp2): 28.8 ml EDV(sp2-el): 29.1 ml LVAs ap2: 7.5 cm2 LVLs ap2: 5.1 cm ESV(MOD-sp2): 9.6 ml ESV(sp2-el): 9.3 ml EF(MOD-sp2): 66.7 % __ SV(sp4-el): 23.8 ml Ao sinus diam: 2.[address] Junction: 2.0 cm __ LA dimension(2D): 2.5 cm LA A4 area: 5.9 cm2 RA A4 area: 5.3 cm2 __ TAPSE: 1.5 cm Time Measurements MV dec time: 0.33 sec Doppler Measurements Calculations MV E max sandip: 85.2 cm/sec Lat Peak E' Sandip: 9.9 cm/sec Med Peak E' Sandip: 8.8 cm/sec MV A max sandip: 101.9 cm/sec E/E' lat: 8.6 E/E' med: 9.7 MV E/A: 0.84 __ MV dec slope: 259.3 cm/sec2 Ao V2 max: 157.5 cm/sec LV V1 max: 107.8 cm/sec Ao max P.9 mmHg LV V1 max P.6 mmHg Ao V2 mean: 110.7 cm/sec LV V1 mean P.4 mmHg Ao mean P.4 mmHg LV V1 mean: 73.2 cm/sec Ao V2 VTI: 24.0 cm LV V1 VTI: 18.6 cm AV (velocity ratio): 0.77 TRAVON(I,D): 2.3 cm2 TRAVON(V,D): 2.0 cm2 __ SV(LVOT): 55.6 ml PA V2 max: 122.5 cm/sec TR max sandip: 278.6 cm/sec TR max P.1 mmHg ECHO/Echo Complete Interpretation Summary The estimated ejection fraction is 60-65 %. Overall normal LV systolic function Diffuse aortic valve sclerosis with no evidence of aortic stenosis. No previous echocardiogram to compare. __ Ordering Physician: Tonja Jo Performed By: Asiya Hammond RDCS 03/03/251416 Date Elisabet Ponce MD CC: Dr. Tonja Jo MD; Dr. Gasper Nelson DO; Dr. Bunny Avilez DO Date Dictated: 03/03/25946 Date Transcribed: 03/03/251416 Department Editor: Signed Normal [facility] Echocardiogram study reportO rdered By: Elisabet Ponce on 03-03-2025 Study report [facility] [address] [place] [address] Echo Complete 03/03/259[address] MR#: [id number] Acct: [id number] Name: ASHLEY GÓMEZ Rep #:[id number] : 1955 69 From: Elisabet Ponce MD Attending Dr: Dr. Bunny Avilez DO Status: ADM IN Ordering Dr: Tonja Jo MD Date: 03/03/25 Location: [facility] Sex: F C Admitted: 03/03/25 Reason For Study Reason For Study: CHEST PAIN Procedure This was a 2D Doppler, Color Flow transthoracic echocardiogram. Exam performed portable in patient room. Left Ventricle Normal left ventricle. The estimated ejection fraction is 60-65 %. Right Ventricle Normal RV size. Normal systolic function. Atria Normal left atrium. Normal right atrium. Mitral Valve There is mild mitral annular calcification. Posterior leaflet mitral valve prolapse. Tricuspid Valve Normal tricuspid valve. Aortic Valve Moderate diffuse aortic valve calcification. Pulmonic Valve The pulmonic valve is not well visualized. Great Vessels The aortic root is not well visualized. Pericardium/Pleural No pericardial effusion. MMode/2D Measurements & Calculations LVIDd: 4.2 cm IVSd: 0.98 cm LVOT diam: 2.0 cm LVIDs: 2.2 cm LVPWd: 0.81 cm LVOT area: 3.0 cm2 RVDd: 2.7 cm FS: 48.1 % __ asc Aorta Diam: 2.2 cm LAV(MOD-bp): 15.3 ml LVAd ap4: 15.5 cm2 LAV(MOD-bp) Indexed: 10.4 ml/m2 LVLd ap4: 5.8 cm LAV(MOD-sp2): 23.2 ml EDV(MOD-sp4): 34.6 ml LAV(MOD-sp4): 8.7 ml EDV(sp4-el): 35.6 ml LVAs ap4: 8.0 cm2 LVLs ap4: 4.6 cm ESV(MOD-sp4): 11.0 ml ESV(sp4-el): 11.8 ml EF(MOD-sp4): 68.1 % EF(sp4-el): 66.9 % ____ LVAd ap2: 14.3 cm2 SV(MOD-sp4): 23.6 ml SV(MOD-sp2): 19.2 ml LVLd ap2: 6.0 cm SI(MOD-sp4): 16.0 ml/m2 SI(MOD-sp2): 13.0 ml/m2 EDV(MOD-sp2): 28.8 ml EDV(sp2-el): 29.1 ml LVAs ap2: 7.5 cm2 LVLs ap2: 5.1 cm ESV(MOD-sp2): 9.6 ml ESV(sp2-el): 9.3 ml EF(MOD-sp2): 66.7 % __ SV(sp4-el): 23.8 ml Ao sinus diam: 2.[address] Junction: 2.0 cm __ LA dimension(2D): 2.5 cm LA A4 area: 5.9 cm2 RA A4 area: 5.3 cm2 ____ TAPSE: 1.5 cm Time Measurements MV dec time: 0.33 sec Doppler Measurements & Calculations MV E max sandip: 85.2 cm/sec Lat Peak E' Sandip: 9.9 cm/sec Med Peak E' Sandip: 8.8 cm/sec MV A max sandip: 101.9 cm/sec E/E' lat: 8.6 E/E' med: 9.7 MV E/A: 0.84 ____ MV dec slope: 259.3 cm/sec2 Ao V2 max: 157.5 cm/sec LV V1 max: 107.8 cm/sec Ao max P.9 mmHg LV V1 max P.6 mmHg Ao V2 mean: 110.7 cm/sec LV V1 mean P.4 mmHg Ao mean P.4 mmHg LV V1 mean: 73.2 cm/sec Ao V2 VTI: 24.0 cm LV V1 VTI: 18.6 cm AV (velocity ratio): 0.77 TRAVON(I,D): 2.3 cm2 TRAVON(V,D): 2.0 cm2 ____ SV(LVOT): 55.6 ml PA V2 max: 122.5 cm/sec TR max sandip: 278.6 cm/sec TR max P.1 mmHg ECHO/Echo Complete Interpretation Summary The estimated ejection fraction is 60-65 %. Overall normal LV systolic function Diffuse aortic valve sclerosis with no evidence of aortic stenosis. No previous echocardiogram to compare. __ Ordering Physician: Tonja Jo Performed By: Asiya Hammond RDCS 03/03/25 1417 Date _ Elisabet Ponce MD CC: Dr. Tonja Jo MD; Dr. Gasper Nelson DO; Dr. Bunny Avilez DO ~ Date Dictated: 03/03/25 0947 Date Transcribed: 03/03/25 1417 Department Editor: Signed [facility] Work Phone: Eosinophil percentageOrdered By: Abdulkadir Peralta on 03-03-2025 Eosinophils/100 WBC (Bld) 0.3 % 0-5 [facility] Erythrocyte distribution wid th ratioOrdered By: Abdulkadir Peralta on 03-03-2025 Erythrocyte distribution width (RBC) [Ratio] 13.3 % 11.6-14.6 [facility] Erythrocyte distribution wid th standard deviationOrdered By: Abdulkadir Peralta on 03-03-2025 Erythrocyte distribution width (RBC) [Ratio] 43.3 fl 35.1-43.9 [facility] Glomerular filtration rate ( GFR) estimation/1.73 sq m using serum, plasma, or whole bOrdered By: Abdulkadir Peralta on 03-03-2025 GFR/1.73 sq M.predicted among non-blacks MDRD (S/P/Bld) [Vol rate/Area] 55 mL/min/{1.73_m2} Low >60 [facility] Comment on above: mL/min/1.73m2 CKD-EP I Creatinine Equation (2020) [facility] 03-03-2025 H&P Exam - Hospitalist [facility] Medical Records Department [address] [place] [address] H P Exam - Hospitalist 03/03/25 0313 MR#: [id number] Acct: [id number] Name: ASHLEY GÓMEZ Rep #: [id number] : 1955 69 From: Tonja Jo MD PCP: Dr. Gasper Nelson DO Status:ADM IN Location: [facility] [id number] HPI - General General Date of Admission: 03/03/25 Date of Service: 03/03/25 Chief Complaint: N/V, hematemesis, chest pain, dyspnea. HPI Narrative The patient is a 69 y/o F w/ PMHx: COPD, Tobacco use, Anxiety and Depression, GERD, Chronic normocytic anemia, HLD, GERD, recently noted discharge 02/17/2025 following evaluation and treatment for acute hypoxia secondary to acute COPD exacerbation discharged on prednisone therapy of note who presents to the [facility] ED on 03/03/2025 with history of approximately 72 hours of onset of malaise, fatigue with nausea and emesis reportedly hospitalized in [place] however she left AMA to return to [facility] reporting that she has been having hematemesis and now onset of chest discomfort and dyspnea prompting ED evaluation. She does report that at the OSH she was going to have an upper endoscopy. She notes the chest discomfort is lower sternal, aching/tightness with dyspnea associated however she is not currently having the symptoms and notes it lasted approximately half an hour previous to ED arrival and rated it at potentially 6-7 out of 10 in severity when it occurred. Workup in the ED included T97, heart 95, BP 135/87, respiratory rate 36, initially 87% on room air with improvement initially to 95% on 2 L nasal cannula with most recent repeat vitals heart rate 86, BP 159/80, respiratory rate 18, 92% on 2.5 L nasal cannula, CBC with WBC 22.9, hemoglobin 15.9, platelet 281 with left shift, D-dimer 0.53, CMP with chloride 97, anion gap 17, BUN/creatinine 39/1.09, GFR 59, glucose 154, lactic acid 2.4, AST/ALT 40/40, initial troponin 91, chest x-ray with no acute cardiopulmonary findings, CT chest/abdomen/pelvi s right lung scarring/atelectasi s with slight dependent atelectasis with no otherwise acute intra-abdominal or cardiopulmonary findings, EKG with SR with no acute evidence of ischemia, UA pending upon evaluation of patient. In the ED patient ministered maintenance IV fluids in addition to 1 L normal saline bolus, aspirin 162 mg p.o. x 1, DuoNeb therapy, morphine 4 mg IV x 1, Zofran 4 mg IV x 1, promethazine 12.5 mg IM x 1. [facility] Medical History Hypokalemia Smoker Hypoxia COPD exacerbation Wears dentures Wears glasses Post-menopausal Depression Arthritis [...] activated powder inhaler of breath or wheezing prednisone 20 mg tablet 20 mg PO BID #10 tabs 02/17/25 Unk nown Rx trazodone 50 mg tablet 150 mg (3 x 50 mg) PO QHS #15 tabs 02/17/25 Unknown Rx albuterol sulfate 90 mcg/actuation inhalation 03/03/25 Unknown Hist ory aerosol inhaler Allergy/AdvReac Type Severity Reaction Status Date / Time Sulfa (Sulfonamide Allergy Hives Verified 03/02/25 23:34 Antibiotics) Family History Mother Pancreatic cancer Father COPD (chronic obstructive pulmonary disease) Brother Colon cancer Heart disease Sister Stomach cancer Brother Leukemia Surgical History History of tonsillectomy and adenoidectomy Hx of cholecystectomy Hx of appendectomy Hx of colonoscopy Social History household members: none current occupational status: employed 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 HEENT: Eyes: No visual loss, blurred vision, double vision or yellow sclerae. Ears, Nose, Throat: No hear (more content not included)... Normal [facility] Hematocrit Auto (Bld) [Volum e fraction]Ordered By: Abdulkadir Peralta on 03-03-2025 Hematocrit (Bld) [Volume fraction] 46.5 % 37-47 [facility] Hemoglobin measurementOrdere d By: Abdulkadir Peralta on 03-03-2025 Hemoglobin (Bld) [Mass/Vol] 15.9 g/dL High 12.0-15.0 [facility] Hyaline casts LM.LPF (Urine sed) [#/Area]Ordered By: [facility] on 03-03-2025 Hyaline casts (Urine sed) [#/Area] 0 /[LPF] 0-5 [facility] Immature granulocytes/100 WB C Auto (Bld)Ordered By: [facility] on 03-03-2025 Immature granulocytes/100 WBC (Bld) 0.400 % 0.0-0.9 [facility] Comment on above: IG% - Immature Granu locytes (promyelocytes, myelocytes and metamyelocytes) > 1% indicates that a LEFT SHIFT is Present. Ketones Test strip Ql (U)Ord ered By: [facility] on 03-03-2025 Ketones Ql (U) 50 mg/dl High Negative [facility] L499.0042on 03-03-2025 Trop T High Sen 93 ng/L Invalid Interpretation Code <=14 [facility] Comment on above: Result Comment: Crit ical Result(s) Called at: 03/03/2025-05:28 by: Siomara Jo to Sade Bonds.??Results read back by same. Critical Result(s) Called at: by:??Results read back by same. Performed By: #### L 501.2450, L503.6005, L500.4050, L300.8000, L100.0100 #### [facility] [address] [place], [address] L499.0043on 03-03-2025 Trop T High Sen 88 ng/L Invalid Interpretation Code <=14 [facility] Comment on above: Result Comment: Crit ical Result(s) Called at 0650: by: ASHUTOSH WOMACK TO [facility]. ??Results read back by same. Performed By: #### L 501.2450, L503.6005, L500.4050, L300.8000, L100.0100 #### [facility] [address] [place], [address] Trop T High Sen Normal <=14 [facility] Comment on above: Result Comment: Canc elled via OM: Order edited - Discontinuing original order Performed By: #### L 501.2450, L503.6005, L500.4050, L300.8000, L100.0100 #### [facility] [address] [place], [address] L501.4021on 03-03-2025 Trop T High Sen 91 ng/L Invalid Interpretation Code <=14 [facility] Comment on above: Result Comment: Crit ical Result(s) Called at: 03/03/2025-02:22 by: Siomara Jo to Mitch Saenz.??Results read back by same. Performed By: #### L 501.2450, L503.6005, L500.4050, L300.8000, L100.0100 #### [facility] [address] [place], [address] L509.7001on 03-03-2025 Procalcitonin 0.05 ng/mL Normal <=0.10 [facility] Comment on above: Result Comment: Inte rpretation: <0.10-0.25 ng/mL: Antibiotic therapy discouraged. Bacterial infection unlikely. 0.25-0.50 ng/mL: Antibiotic therapy encouraged. Bacterial infection possible. >0.50 ng/mL: Antibiotic therapy strongly encouraged. Suggestive of presence of bacterial infection. PCT should always be interpreted in the clinical context of the patient. Therefore, clinicians should use the PCT results in conjunction with other laboratory findings and clinical signs of the patient. Performed By: #### L 501.2450, L503.6005, L500.4050, L300.8000, L100.0100 #### [facility] [address] [place], [address] Laboratory - Chemistry and C hemistry - challengeOrdered By: Tonja Jo on 03-03-2025 AST [Catalytic activity/Vol] 37 U/L High <32 [facility] Laboratory - Chemistry and C hemistry - challengeOrdered By: Abdulkadir Peralta on 03-03-2025 AST [Catalytic activity/Vol] 40 U/L High <32 [facility] Lactic Acidon 03-03-2025 Lactate [Moles/Vol] mmol/L Normal 0.0-2.0 [facility] Comment on above: Performed By: #### L 503.6005 #### [facility] [address] [place], [place], [address] Lactate [Moles/Vol] 2.4 mmol/L Invalid Interpretation Code 0.0-2.0 [facility] Comment on above: Order Comment: Y Result Comment: Crit ical Result(s) Called at: 03/03/2025-02:08 by: Siomara Chiu.??Results read back by same. Performed By: #### L 501.2450, L503.6005, L500.4050, L300.8000, L100.0100 #### [facility] [address] [place], [place], [id number] Lactic acid measurementOrder ed By: Abdulkadir Peralta on 03-03-2025 Lactate [Moles/Vol] mmol/L 0.0-2.0 [facility] Lactate [Moles/Vol] 2.4 mmol/L High 0.0-2.0 [facility] Comment on above: Critical Result(s) C alled at: 03/03/2025-02:08 by: Siomara Chiu. Results read back by same. Lipaseon 03-03-2025 Lipase [Catalytic activity/Vol] 18 U/L Normal 13-75 [facility] Comment on above: Result Comment: Brandon strong note: LIPASE revised reference range effective 22. New Lipase methodology. Expected to produce lower values than the previous assay method. NEW Reference Range: 13 - 75 U/L Performed By: #### L 501.2450, L503.6005, L500.4050, L300.8000, L100.0100 #### [facility] [address] [place], [address] Lipase measurementOrdered By : Abdulkadir Peralta on 03-03-2025 Lipase [Catalytic activity/Vol] 18 U/L 13-75 [facility] Comment on above: Please note:LIPASE r evised reference range effective 22. New Lipase methodology. Expected to produce lower values than the previous assay method. NEW Reference Range: 13 - 75 U/L MCV (mean corpuscular volume ) determinationOrdered By: Abdulkadir Peralta on 03-03-2025 MCV (RBC) [Entitic vol] 89.3 fL 81-99 [facility] MR/POSTOP.ANEon 03-03-2025 MR/POSTOP.[facility] Medical Records Department [address] [place] [address] Anesthesia Postop Eval I 03/03/251407 MR#: [id number] Acct: [id number] Name: ASHLEY GÓMEZ Rep #: [id number] : 1955 69 From: Mack Stone CRNA PCP: Dr. Gasper Nelson, DO Status:ADM IN Y Race: C Location: [place] [address] Anesthesia: Postop Eval I Current Vital Signs Temperature: 99.4 F Pulse Rate: 91 Blood Pressure: 132/69 Respiratory Rate: 16 Pulse Ox: 99 Assessment Airway patent: Yes Spontaneous unlabored respirations: Yes nausea: No Vomiting: No Anesthesia Complication: No Fluid Hydration Crystalloid volume administer (ml): 200 Total IV fluid infused: 200 Progress Note Anesthesia document: Postop Eval 1 completed: Yes 03/03/251407 Date Mack Stone FACILITY MAINTENANCE WORKER Cosigner Signature: Date CC: Signed Normal [facility] MR/[id number] 03-03-2025 MR/POSTOPAN2 [facility] Medical Records Department [address] [place] [address] Anesthesia Postop Eval II 03/03/25 1645 MR#: [id number] Acct: [id number] Name: ASHLEY GÓMEZ Rep #: [id number] : 1955 69 From: Peyton Christopher CRNA PCP: Dr. Gasper Nelson, DO Status:ADM IN Y Race: C Location: [place] [address] Anesthesia Postop Eval I Sum Postop Eval Completion status Anesthesia document: Postop Eval 1 completed: Yes Anesthesia Postop Eval I Summary Anesthesia Postop Eval I Summary: Anesthesia Postop Eval I: Assessment Summary Airway patent Yes 03/03/25 14:08 FACILITY MAINTENANCE WORKER.TNES Spontaneous unlabored Yes 03/03/25 14:08 FACILITY MAINTENANCE WORKER.TNES respirations Mental status nausea No 03/03/25 14:08 FACILITY MAINTENANCE WORKER.TNES Vomiting No 03/03/25 14:08 FACILITY MAINTENANCE WORKER.TNES Anesthesia Postop Eval I: Fluid Summary Crystalloid volume administer 200 03/03/25 14:08 FACILITY MAINTENANCE WORKER.TNES (ml) Colloids volume administered ( ml) Blood Product volume administered (ml) Total IV fluid infused 200 03/03/25 14:08 FACILITY MAINTENANCE WORKER.TNES Anesthesia Postop Eval I: Summary Notes Anesthesia Complication No 03/03/25 14:08 FACILITY MAINTENANCE WORKER.TNES Anesthesia Complication Comment: Post-operative progress note Anesthesia: Postop Eval II Evaluation Mental status: Awake Pain Level: 1 nausea: No Vomiting: No 03/03/25 1646 Date Peyton Christopher FACILITY MAINTENANCE WORKER Cosigner Signature: Date CC: Signed Normal [facility] Magnesiumon 03-03-2025 Magnesium [Mass/Vol] 2.0 mg/dL Normal 1.5-2.2 [facility] Comment on above: Order Comment: Comme nts: may add to ED labs Performed By: #### L 501.2450, L503.6005, L500.4050, L300.8000, L100.0100 #### [facility] [address] [place], [address] Mean corpuscular hemoglobin (MCH) determinationOrdered By: Abdulkadir Peralta on 03-03-2025 MCH (RBC) [Entitic mass] 30.5 pg 27.0-32.0 [facility] Mean corpuscular hemoglobin concentration (MCHC) determinationOrdered By: Abdulkadir Peralta on 03-03-2025 MCHC (RBC) [Mass/Vol] 34.2 g/dL 32-36 [facility] Mean platelet volume determi nationOrdered By: Abdulkadir Peralta on 03-03-2025 Platelet mean volume (Bld) [Entitic vol] 10.1 fL 6.2-12.0 [facility] Microscopic analysis of urin e for red blood cells (RBC)Ordered By: Abdulkadir Peralta on 03-03-2025 Microscopic analysis of urine for red blood cells (RBC) 5-10 SEEN /hpf 0-5 [facility] Monocyte percentageOrdered B y: Abdulkadir Peralta on 03-03-2025 Monocytes/100 WBC (Bld) 5.4 % 0-10 [facility] Mucus LM Ql (Urine sed)Order ed By: Abdulkadir Peralta on 03-03-2025 Mucus Ql (Urine sed) 0 SEEN /hpf [facility] Neutrophil percentageOrdered By: Abdulkadir Peralta on 03-03-2025 Neutrophils/100 WBC (Bld) 82.4 % High 47-70 [facility] Nitrite Test strip Ql (U)Ord ered By: Abdulkadir Peralta on 03-03-2025 Nitrite Ql (U) Negative Negative [facility] Nucleated red blood cell per centageOrdered By: Abdulkadir Peralta on 03-03-2025 Nucleated RBC/100 WBC (Bld) [Ratio] 0 % 0-5 [facility] Platelet countOrdered By: Sol Peralta on 03-03-2025 Platelets (Bld) [#/Vol] 281 10*3/uL 150-450 [facility] Potassium measurement (mass/ volume)Ordered By: Abdulkadir Peralta on 03-03-2025 Potassium (Unsp spec) [Mass/Vol] 3.4 mmol/L 3.3-5.1 [facility] Procalcitonin [Mass/volume] in Serum or Plasma by ImmunoassayOrdered By: Tonja Jo on 03-03-2025 Procalcitonin IA [Mass/Vol] 0.05 ng/mL <0.11 [facility] Comment on above: Interpretation:<0.10 -0.25 ng/mL: Antibiotic therapy discouraged. Bacterial infection unlikely.0.25-0.50 ng/mL: Antibiotic therapy encouraged. Bacterial infection possible.>0.50 ng/mL: Antibiotic therapy strongly encouraged. Suggestive of presence of bacterial infection.PCT should always be interpreted in the clinical context of the patient. Therefore, clinicians should use the PCT results in conjunction with other laboratory findings and clinical signs of the patient. Protein Test strip Ql (U)Ord ered By: Abdulkadir Peralta on 03-03-2025 Protein Ql (U) 15 mg/dl High Negative [facility] RBC Auto (Bld) [#/Vol]Ordere d By: Abdulkadir Peralta on 03-03-2025 RBC (Bld) [#/Vol] 5.21 10*6/uL 4.2-5.4 [facility] RESPIRATORY PANEL MOLECULARo n 03-03-2025 RP PANEL ADENOVIRUS Not Detected INFLUENZA A Not Detected INFLUENZA A (SUBTYPE H1) Not Detected INFLUENZA A (SUBTYPE H3) Not Detected INFLUENZA B Not Detected HUMAN METAPHNEUMO Not Detected PARAINFLUENZA 1 Not Detected PARAINFLUENZA 2 Not Detected PARAINFLUENZA 3 Not Detected PARAINFLUENZA 4 Not Detected RHINOVIRUS Not Detected RSV A Not Detected RSV B Not Detected Normal [facility] Comment on above: Performed By: #### L 501.9340, L503.6005, L500.4050, L300.8000, L100.0100 #### [facility] [address] [place], [address] Respiratory pathogens detect ion panel by molecular detection methodOrdered By: Tonja Jo on 03-03-2025 Respiratory pathogens DNA and RNA panel SHYLA+probe (Resp) [facility] Serum creatinine measurement (mass/volume)Ordered By: Abdulkadir Peralta on 03-03-2025 Creatinine [Mass/Vol] 1.09 mg/dL 0.70-1.20 [facility] Serum globulin measurementOr dered By: Tonja Jo on 03-03-2025 Globulin (S) [Mass/Vol] 2.4 g/dL 2.2-4.2 [facility] Serum globulin measurementOr dered By: Abdulkadir Peralta on 03-03-2025 Globulin (S) [Mass/Vol] 2.7 g/dL 2.2-4.2 [facility] Serum glucose measurement (m ass/volume)Ordered By: Abdulkadir Peralta on 03-03-2025 Glucose [Mass/Vol] 154 mg/dL High 70-99 [facility] Serum or plasma alanine marin otransferase (ALT) measurementOrdered By: Tonja Jo on 03-03-2025 ALT [Catalytic activity/Vol] 36 U/L High <35 [facility] Serum or plasma alanine marin otransferase (ALT) measurementOrdered By: Abdulkadir Peralta on 03-03-2025 ALT [Catalytic activity/Vol] 40 U/L High <35 [facility] Serum or plasma albumin janneth urement (mass/volume)Ordered By: Tonja Jo on 03-03-2025 Albumin [Mass/Vol] 4.1 g/dL 3.4-4.8 [facility] Serum or plasma albumin janneth urement (mass/volume)Ordered By: Abdulkadir Peralta on 03-03-2025 Albumin [Mass/Vol] 4.4 g/dL 3.4-4.8 [facility] Serum or plasma albumin/glob ulin mass ratioOrdered By: Tonja Jo on 03-03-2025 Albumin/Globulin [Mass ratio] 1.7 {ratio} 0.9-2.4 [facility] Serum or plasma albumin/glob ulin mass ratioOrdered By: Abdulkadir Ungrachel on 03-03-2025 Albumin/Globulin [Mass ratio] 1.6 {ratio} 0.9-2.4 [facility] Serum or plasma alkaline robert sphatase measurementOrdered By: Tonja Jo on 03-03-2025 ALP [Catalytic activity/Vol] 73 U/L 35-104 [facility] Serum or plasma alkaline robert sphatase measurementOrdered By: Remus Puentesrachel on 03-03-2025 ALP [Catalytic activity/Vol] 78 U/L 35-104 [facility] Serum or plasma calcium janneth urement (mass/volume)Ordered By: Remus Ungur on 03-03-2025 Calcium [Mass/Vol] 10.5 mg/dL 7.6-11.0 [facility] Serum or plasma urea nitroge n measurement (mass/volume)Ordered By: Remus Ungur on 03-03-2025 Urea nitrogen [Mass/Vol] 36 mg/dL High 4-19 [facility] Sodium levelOrdered By: Remu s Ungrachel on 03-03-2025 Sodium [Moles/Vol] 138 mmol/L 133-145 [facility] Squamous epithelial cells de tection in urine sediment by light microscopyOrdered By: Remus Ungrachel on 03-03-2025 Epithelial cells.squamous LM Ql (Urine sed) 0-5 SEEN /hpf 5-10 [facility] Total proteinOrdered By: Hyacinth Jo on 03-03-2025 Protein [Mass/Vol] 6.5 g/dL 5.9-8.4 [facility] Total proteinOrdered By: Rem us Peralta on 03-03-2025 Protein [Mass/Vol] 7.0 g/dL 5.9-8.4 [facility] Troponin T.cardiac [Mass/vol ume] in Serum or Plasma by High sensitivity methodOrdered By: Tonja Jo on 03-03-2025 Troponin T.cardiac High sensitivity method [Mass/Vol] 88 ng/L High <14 [facility] Comment on above: Critical Result(s) C alled at 0650: by: ASHUTOSH WOMACK TO [facility]. Results read back by same. Troponin T.cardiac [Mass/vol ume] in Serum or Plasma by High sensitivity methodOrdered By: Abdulkadir Peralta on 03-03-2025 Troponin T.cardiac High sensitivity method [Mass/Vol] 93 ng/L High <14 [facility] Comment on above: Critical Result(s) C alled at: 03/03/2025-05:28 by: Siomara Jo to Sade Bonds. Results read back by same.Critical Result(s) Called at: by: Results read back by same. Troponin T.cardiac High sensitivity method [Mass/Vol] 91 ng/L High <14 [facility] Comment on above: Critical Result(s) C alled at: 03/03/2025-02:22 by: Siomara Jo to Mitch Saenz. Results read back by same. Urinalysis, Completeon 03-03 CAST,HYALINE 0-5 SEEN Normal 0-5 [facility] Comment on above: Order Comment: COLLE CTOR TO SPECIFY Performed By: #### L 501.2450, L503.6005, L500.4050, L300.8000, L100.0100 #### [facility] [address] [place], [address] EPI,SQUAMOUS 0-5 SEEN Normal 5-10 [facility] Comment on above: Order Comment: COLLE CTOR TO SPECIFY Performed By: #### L 501.2450, L503.6005, L500.4050, L300.8000, L100.0100 #### [facility] [address] [place], [address] RBC 5-10 SEEN Normal 0-5 [facility] Comment on above: Order Comment: COLLE CTOR TO SPECIFY Performed By: #### L 501.2450, L503.6005, L500.4050, L300.8000, L100.0100 #### [facility] [address] [place], [address] WBC 0-5 SEEN Normal 0-5 [facility] Comment on above: Order Comment: COLLE CTOR TO SPECIFY Performed By: #### L 501.2450, L503.6005, L500.4050, L300.8000, L100.0100 #### [facility] [address] [place], [address] BILIRUBIN URINE Negative Normal Negative [facility] Comment on above: Order Comment: COLLE CTOR TO SPECIFY Performed By: #### L 501.2450, L503.6005, L500.4050, L300.8000, L100.0100 #### [facility] [address] [place], [address] Clarity (U) Clear Normal Clear [facility] Comment on above: Order Comment: COLLE CTOR TO SPECIFY Performed By: #### L 501.2450, L503.6005, L500.4050, L300.8000, L100.0100 #### [facility] [address] [place], [address] Color (U) Yellow Normal Yellow [facility] Comment on above: Order Comment: COLLE CTOR TO SPECIFY Performed By: #### L 501.2450, L503.6005, L500.4050, L300.8000, L100.0100 #### [facility] [address] [place], [address] GLUCOSE, UR Normal Normal Normal [facility] Comment on above: Order Comment: COLLE CTOR TO SPECIFY Performed By: #### L 501.2450, L503.6005, L500.4050, L300.8000, L100.0100 #### [facility] [address] [place], [address] KETONE UR 50 mg/dl Abnormal Negative [facility] Comment on above: Order Comment: COLLE CTOR TO SPECIFY Performed By: #### L 501.2450, L503.6005, L500.4050, L300.8000, L100.0100 #### [facility] [address] [place], [address] LEUK ESTERASE Negative Normal Negative [facility] Comment on above: Order Comment: COLLE CTOR TO SPECIFY Performed By: #### L 501.2450, L503.6005, L500.4050, L300.8000, L100.0100 #### [facility] [address] [place], [address] Nitrite Ql (U) Negative Normal Negative [facility] Comment on above: Order Comment: COLLE CTOR TO SPECIFY Performed By: #### L 501.2450, L503.6005, L500.4050, L300.8000, L100.0100 #### [facility] [address] [place], [address] OCCULT BLOOD-UR 10 /ul Abnormal Negative [facility] Comment on above: Order Comment: REBECCA CTOR TO SPECIFY Performed By: #### L 501.2450, L503.6005, L500.4050, L300.8000, L100.0100 #### [facility] [address] [place], [address] pH UR 6.0 Normal 5.0 - 8.0 [facility] Comment on above: Order Comment: REBECCA CTOR TO SPECIFY Performed By: #### L 501.2450, L503.6005, L500.4050, L300.8000, L100.0100 #### [facility] [address] [place], [address] PROT DIPSTX 15 mg/dl Abnormal Negative [facility] Comment on above: Order Comment: REBECCA CTOR TO SPECIFY Performed By: #### L 501.2450, L503.6005, L500.4050, L300.8000, L100.0100 #### [facility] [address] [place], [address] SP.GR. DIPSTX 1.015 Normal 1.002-1.030 [facility] Comment on above: Order Comment: REBECCA CTOR TO SPECIFY Performed By: #### L 501.2450, L503.6005, L500.4050, L300.8000, L100.0100 #### [facility] [address] [place], [address] UROBILI Normal Normal Normal [facility] Comment on above: Order Comment: REBECCA CTOR TO SPECIFY Performed By: #### L 501.2450, L503.6005, L500.4050, L300.8000, L100.0100 #### [facility] [address] [place], [address] BACTERIA 0 SEEN Normal None Seen [facility] Comment on above: Order Comment: REBECCA CTOR TO SPECIFY Performed By: #### L 501.2450, L503.6005, L500.4050, L300.8000, L100.0100 #### [facility] [address] [place], [address] Mucus Ql (Urine sed) 0 SEEN Normal [facility] Comment on above: Order Comment: REBECCA CTOR TO SPECIFY Performed By: #### L 501.2450, L503.6005, L500.4050, L300.8000, L100.0100 #### [facility] [address] [place], [address] Urine clarityOrdered By: Katrina Peralta on 03-03-2025 Clarity (U) Clear Clear [facility] Urine color determinationOrd ered By: Abdulkadir Peralta on 03-03-2025 Color (U) Yellow Yellow [facility] Urine glucose detectionOrder ed By: Abdulkadir Peralta on 03-03-2025 Glucose Ql (U) Normal mg/dl Normal [facility] Urine leukocyte esterase det ection by dipstickOrdered By: Abdulkadir Peralta on 03-03-2025 Leukocyte esterase Test strip Ql (U) Negative Negative [facility] Urine pHOrdered By: Abdulkadir Un gur on 03-03-2025 pH (U) 6.0 [pH] 5.0 - 8.0 [facility] Urine sediment bacteria coun t by microscopy (number/high power field)Ordered By: Abdulkadir Peralta on 03-03-2025 Bacteria LM.HPF (Urine sed) [#/Area] 0 /[HPF] None Seen [facility] Urine specific gravity measu rementOrdered By: Abdulkadir Peralta on 03-03-2025 Specific gravity (U) [Rel density] 1.015 1.002-1.030 [facility] Urine urobilinogen measureme ntOrdered By: Abdulkadir Peralta on 03-03-2025 Urobilinogen Ql (U) Normal mg/dl Normal [facility] White blood cell (WBC) count Ordered By: Abdulkadir Peralta on 03-03-2025 WBC (Bld) [#/Vol] 22.9 10*3/uL High 4.4-11.0 [facility] White blood cell countOrdere d By: Abdulkadir Peralta on 03-03-2025 White blood cell count 0-5 SEEN /hpf 0-5 [facility] 12 Lead EKGon 03-02-2025 12 Lead EKG [facility] Cardi[facility] Services [address] [place] [address] 12 Lead EKG 03/02/25 2340 MR#: [id number] Acct: [id number] Name: ASHLEY GÓMEZ Rep #: [id number] : 1955 69 From: Ezequiel Gusman MD Attending Dr: Dr. Bunny Avilez DO Status: A DM IN Ordering Dr: Abdulkadir Peralta DO Date: 03/02/25 Location: [facility] Sex: F C Admitted: 03/03/25 Test Reason : CP Blood Pressure : */* mmHG Vent. Rate : 84 BPM Atrial Rate : 84 BPM P-R Int : 154 ms QRS Dur : 60 ms QT Int : 390 ms P-R-T Axes : 81 25 65 degrees QTcB Int : 460 ms Normal sinus rhythm Right atrial enlargement Nonspecific ST abnormality Abnormal ECG Confirmed by MURTAZA CHISHOLM, EZEQUIEL ([id number]), department editor OSWALD ROSA ([id number]) on 03/04/2025 6:37:00 AM Referred By: KEVIN Confirmed By: EZEQUIEL GUSMAN MD 03/04/25 0637 Date Ezequiel Gusman MD CC: Dr. Gasper Nelson DO; Dr. Bunny Avilez DO; Dr. Abdulkadir Peralta DO Signed Normal [facility] Chest 1 View (Portable)on Chest 1 View (Portable) [facility] Imaging Services [address] [place] [address] Chest 1 View (Portable) MR#: [id number] Acct: [id number] Name: ASHLEY GÓMEZ Rep #: [id number] : 1955 F 69 From: Ruddy Vidales MD PCP: Dr. Gasper Nelson DO Status: REG ER Study: Chest 1 View (Portable) Date of Exam: 03/02/25 Exam# [id number] Ordering Dr: Abdulkadir Peralta DO PROCEDURE: CHEST 1 VIEW (PORTABLE) 03/03/2025 REASON FOR EXAM: DYSPNEA TECHNIQUE: Frontal view of the chest. COMPARISON: 02/15/2025 FINDINGS: Scoliosis. Normal heart size. Well inflated lungs. No consolidation, effusion, or pneumothorax. RAD/Chest 1 View (Portable) IMPRESSION: No acute chest findings Reading Location: [place] [address] CC: Dr. Gasper Nelson DO; Dr. Abdulkadir Peralta DO Department Editor: Signed Normal [facility] Emergency Department Summary on 03-02-2025 Emergency Department Summary [facility] Medical Records Department [address] [place] [address] Emergency Department Summary 03/02/25 MR#: [id number] Acct: [id number] Name: ASHLEY GÓMEZ Rep #: [id number] : 1955 69 From: Abdulkadir Peralta DO PCP: Dr. Gasper Nelson DO Status:ADM IN Location: [address] History of Present Illness Chief Complaint: Chest Pain Detail of Chief Complaint: Chest pain and not feeling well Informant: patient Narrative Narrative: Patient presents to the emergency department via EMS with multiple complaints. She states that she was recently in [place] 2 days ago when she started getting sick with vomiting and was admitted to the hospital there. Apparently she signed out AGAINST MEDICAL ADVICE because she wanted to come up here. Patient states that she was vomiting blood and they were going to do a scope at some point. She complains of some chest discomfort this evening that is now resolved. She complains of shortness of breath. She has history of COPD and does not normally wear home O2. She denies any diarrhea. [facility] Medical History Hypokalemia Smoker Hypoxia COPD exacerbation Wears dentures Wears glasses Post-menopausal Depression Arthritis [...] activated powder inhaler of breath or wheezing prednisone 20 mg tablet 20 mg PO BID #10 tabs 02/17/25 Unk nown Rx trazodone 50 mg tablet 150 mg (3 x 50 mg) PO QHS #15 tabs 02/17/25 Unknown Rx albuterol sulfate 90 mcg/actuation inhalation 03/03/25 Unknown Hist ory aerosol inhaler Allergy/AdvReac Type Severity Reaction Status Date / Time Sulfa (Sulfonamide Allergy Hives Verified 03/02/25 23:34 Antibiotics) Family History Mother Pancreatic cancer Father COPD (chronic obstructive pulmonary disease) Brother Colon cancer Heart disease Sister Stomach cancer Brother Leukemia Surgical History History of tonsillectomy and adenoidectomy Hx of cholecystectomy Hx of appendectomy Hx of colonoscopy Social History household members: none current occupational status: employed current occupation: [employer] Smoking Status: Current every day smoker tobacco type: cigarettes Tobacco: How many years used: 4 alcohol intake: former substance use type: does not use ROS ROS ED Review of Systems ROS Unobtainable: other Constitutional Constitutional ED: Reports lethargy; Denies chills, fever(s), sweats or weight loss Eyes Eyes: Denies blurry vision, change in vision or diplopia ENT ENT ED: Denies rhinorrhea or sore throat Cardiovascular Cardiovascular: Reports chest pain; Denies orthopnea or racing heartbeat Respiratory/Chest Respiratory/Chest: Reports dyspnea and dyspnea on exertion; Denies cough, orthopnea or sputum Gastrointestinal Gastrointestinal: Reports nausea and vomiting; Denies abdominal pain or diarrhea Genitourinary Genitourinary ED: Denies dysuria, hematuria or urinary frequency Musculoskeletal Musculoskeletal: Denies arthralgias, back pain, myalgias or neck pain Integumentary Denies abscess, Abrasions or rash Neurologic Neurologic: Denies headache(s) or weakness Psychiatric Psychiatric: Denies anxiety, depression or suicidal thoughts Endocrine Endocrinology: Denies polydipsia, polyphagia or polyuria Hematologic/Lymphat ic Hematologic/Lymphat ic: Denies easy bleeding, easy bruising or lymphadenopathy Allergic/Immunologi c Allergic/Immunologi c ED: Denies mouth swelling, tongue swelling or urticaria EXAM Physical Exam Const Vital Signs: 03/02/25 23:34 03/02/25 23:53 03/03/25 00:28 Temperature 97 F L Temperature Source Temporal Pulse Rate 95 82 Respiratory Rate 36 H 25 H Respiratory Effort Short of Breath Respiratory Pattern Blood Pressure 135/87 H 151/98 H Blood Pressure Mean 103 115 Pulse Ox 87 93 Oxygen Delivery Method Room (more content not included)... Normal [facility] 36on 02-24-2025 36 Recent Visits Date Type Provider Dept 11/12/24 Office Visit Siomara Estrada PA-C [facility] Showing recent visits within past 365 days and meeting all other requirements Future Appointments Date Type Provider Dept 05/12/25 Appointment Gasper Nelson DO [facility] Showing future appointments within [...] recent labs completed in chart? N/A Normal [facility] Anion gap in Serum or Plasma Ordered By: Bunny Avilez on 02-17-2025 Anion gap [Moles/Vol] 12 mmol/L 01-16 [facility] BUN/creatinine ratioOrdered By: Bunny Avilez on 02-17-2025 Urea nitrogen/Creatinine [Mass ratio] 34.6 mg/mg High 06-23 [facility] Basic Metabolic Profile (BMP )on 02-17-2025 BUN/CRE 34.6 RATIO High 06-23 [facility] Comment on above: Performed By: #### L 501.2450, L503.6005, L500.4050, L300.8000, L100.0100 #### [facility] [address] [place], [address] Calcium [Mass/Vol] 9.9 mg/dL Normal 7.6-11.0 [facility] Comment on above: Performed By: #### L 501.2450, L503.6005, L500.4050, L300.8000, L100.0100 #### [facility] [address] [place], [address] Chloride [Moles/Vol] 103 mmol/L Normal 98-108 [facility] Comment on above: Performed By: #### L 501.2450, L503.6005, L500.4050, L300.8000, L100.0100 #### [facility] [address] [place], [address] CO2 [Moles/Vol] 25.7 mmol/L Normal 21.0-32.0 [facility] Comment on above: Performed By: #### L 501.2450, L503.6005, L500.4050, L300.8000, L100.0100 #### [facility] [address] [place], [address] Creatinine [Mass/Vol] 0.68 mg/dL Low 0.70-1.20 [facility] Comment on above: Performed By: #### L 501.2450, L503.6005, L500.4050, L300.8000, L100.0100 #### [facility] [address] [place], [address] ECRCL 53.82 ml/min Normal 50-250 [facility] Comment on above: Performed By: #### L 501.2450, L503.6005, L500.4050, L300.8000, L100.0100 #### [facility] [address] [place], [address] GAP 12 Normal 5-15 [facility] Comment on above: Performed By: #### L 501.2450, L503.6005, L500.4050, L300.8000, L100.0100 #### [facility] [address] [place], [address] GFR/1.73 sq M.predicted among non-blacks MDRD (S/P/Bld) [Vol rate/Area] 94 mL/min/{1.73_m2} Normal >60 [facility] Comment on above: Result Comment: mL/m in/1.73m2 CKD-EPI Creatinine Equation (2020) Performed By: #### L 501.2450, L503.6005, L500.4050, L300.8000, L100.0100 #### [facility] [address] [place], [address] Glucose [Mass/Vol] 102 mg/dL High 70-99 [facility] Comment on above: Performed By: #### L 501.2450, L503.6005, L500.4050, L300.8000, L100.0100 #### [facility] [address] [place], [address] Potassium [Moles/Vol] 4.4 mmol/L Normal 3.3-5.1 [facility] Comment on above: Performed By: #### L 501.2450, L503.6005, L500.4050, L300.8000, L100.0100 #### [facility] [address] [place], [address] Sodium [Moles/Vol] 140 mmol/L Normal 133-145 [facility] Comment on above: Performed By: #### L 501.2450, L503.6005, L500.4050, L300.8000, L100.0100 #### [facility] [address] [place], [address] Urea nitrogen [Mass/Vol] 23 mg/dL High 4-19 [facility] Comment on above: Performed By: #### L 501.2450, L503.6005, L500.4050, L300.8000, L100.0100 #### [facility] [address] [place], [address] Carbon dioxide, total [Moles /volume] in Central venous bloodOrdered By: Bunny Avilez on 02-17-2025 CO2 [Moles/Vol] 25.7 mmol/L 21.0-32.0 [facility] Chloride assayOrdered By: Malaika Avilez on 02-17-2025 Chloride [Moles/Vol] 103 mmol/L 98-108 [facility] Discharge Instructionon 02-02 Discharge Instruction [facility] Medical Records Department [address] [place] [address] Instructions for Home/Discharge Instructions 02/17/25 1052 MR#: [id number] Acct: [id number] Name: ASHLEY GÓMEZ Rep #: [id number] : 1955 69 From: Bunny Avilez DO [...] CC: Dr. Danish Davila DO Signed Normal [facility] Glomerular filtration rate ( GFR) estimation/1.73 sq m using serum, plasma, or whole bOrdered By: Bunny Avilez on 02-17-2025 GFR/1.73 sq M.predicted among non-blacks MDRD (S/P/Bld) [Vol rate/Area] 94 mL/min/{1.73_m2} >60 [facility] Comment on above: mL/min/1.73m2 CKD-EP I Creatinine Equation (2020) Potassium measurement (mass/ volume)Ordered By: Bunny Avilez on 02-17-2025 Potassium (Unsp spec) [Mass/Vol] 4.4 mmol/L 3.3-5.1 [facility] Serum creatinine measurement (mass/volume)Ordered By: Bunny Avilez on 02-17-2025 Creatinine [Mass/Vol] 0.68 mg/dL Low 0.70-1.20 [facility] Serum glucose measurement (m ass/volume)Ordered By: Bunny Avilez on 02-17-2025 Glucose [Mass/Vol] 102 mg/dL High 70-99 [facility] Serum or plasma calcium janneth urement (mass/volume)Ordered By: Bunny Avilez on 02-17-2025 Calcium [Mass/Vol] 9.9 mg/dL 7.6-11.0 [facility] Serum or plasma urea nitroge n measurement (mass/volume)Ordered By: Bunny Avilez on 02-17-2025 Urea nitrogen [Mass/Vol] 23 mg/dL High 4-19 [facility] Sodium levelOrdered By: Bunny Avilez on 02-17-2025 Sodium [Moles/Vol] 140 mmol/L 133-145 [facility] Basic Metabolic Profile (BMP )on 02-16-2025 BUN/CRE 28.6 RATIO High 10-20 [facility] Comment on above: Performed By: #### L 501.2450, L503.6005, L500.4050, L300.8000, L100.0100 #### [facility] [address] [place], [address] Calcium [Mass/Vol] 10.4 mg/dL Normal 7.6-11.0 [facility] Comment on above: Performed By: #### L 501.2450, L503.6005, L500.4050, L300.8000, L100.0100 #### [facility] [address] [place], [address] Chloride [Moles/Vol] 106 mmol/L Normal 98-108 [facility] Comment on above: Performed By: #### L 501.2450, L503.6005, L500.4050, L300.8000, L100.0100 #### [facility] [address] [place], [address] CO2 [Moles/Vol] 24.1 mmol/L Normal 21.0-32.0 [facility] Comment on above: Performed By: #### L 501.2450, L503.6005, L500.4050, L300.8000, L100.0100 #### [facility] [address] [place], [address] Creatinine [Mass/Vol] 0.68 mg/dL Low 0.70-1.20 [facility] Comment on above: Performed By: #### L 501.2450, L503.6005, L500.4050, L300.8000, L100.0100 #### [facility] [address] [place], [address] ECRCL 53.82 ml/min Normal 50-250 [facility] Comment on above: Performed By: #### L 501.2450, L503.6005, L500.4050, L300.8000, L100.0100 #### [facility] [address] [place], [address] GAP 12 Normal 5-15 [facility] Comment on above: Performed By: #### L 501.2450, L503.6005, L500.4050, L300.8000, L100.0100 #### [facility] [address] [place], [address] GFR/1.73 sq M.predicted among non-blacks MDRD (S/P/Bld) [Vol rate/Area] 94 mL/min/{1.73_m2} Normal >60 [facility] Comment on above: Result Comment: mL/m in/1.73m2 CKD-EPI Creatinine Equation (2020) Performed By: #### L 501.2450, L503.6005, L500.4050, L300.8000, L100.0100 #### [facility] [address] [place], [address] Glucose [Mass/Vol] 110 mg/dL High 70-99 [facility] Comment on above: Performed By: #### L 501.2450, L503.6005, L500.4050, L300.8000, L100.0100 #### [facility] [address] [place], [address] Potassium [Moles/Vol] 5.5 mmol/L High 3.3-5.1 [facility] Comment on above: Result Comment: Hemo lysis present, Results??could be affected. ?? Performed By: #### L 501.2450, L503.6005, L500.4050, L300.8000, L100.0100 #### [facility] [address] [place], [address] Sodium [Moles/Vol] 142 mmol/L Normal 133-145 [facility] Comment on above: Performed By: #### L 501.2450, L503.6005, L500.4050, L300.8000, L100.0100 #### [facility] [address] [place], [address] Urea nitrogen [Mass/Vol] 19 mg/dL Normal 4-19 [facility] Comment on above: Performed By: #### L 501.2450, L503.6005, L500.4050, L300.8000, L100.0100 #### [facility] [address] [place], [address] 12 Lead EKGon 02-15-2025 12 Lead EKG [facility] Services [address] [place] [address] 12 Lead EKG 02/15/25 0839 MR#: [id number] Acct: [id number] Name: ASHLEY GÓMEZ Rep #: [id number] : 1955 69 From: Ezequiel Gusman MD Attending Dr: Dr. Bunny Avilez DO Status: D IS IN Ordering Dr: Wilfred Bryan MD Date: 02/15/25 Location: [facility] Sex: F C Admitted: 02/15/25 Test Reason : SOB Blood Pressure : */* mmHG Vent. Rate : 84 BPM Atrial Rate : 84 BPM P-R Int : 154 ms QRS Dur : 72 ms QT Int : 384 ms P-R-T Axes : 88 64 29 degrees QTcB Int : 453 ms Normal sinus rhythm Normal ECG Confirmed by MURTAZA CHISHOLM, EZEQUIEL ([id number]), department editor TIFFANI BENZ ([id number]) on 02/18/2025 8:22:27 AM Referred By: JOMAR Confirmed By: EZEQUIEL GUSMAN MD 02/18/25821 Date Ezequiel Gusman MD CC: Dr. Wilfred Bryan MD; Dr. Bunny Avilez DO; Dr. Danish Davila DO Signed Normal [facility] Absolute lymphocyte countOrd ered By: Wilfred Bryan on 02-15-2025 Lymphocytes Auto (Unsp spec) [#/Vol] 1.81 10*3/uL 0.83-4.51 [facility] Absolute neutrophil countOrd ered By: Wilfred Bryan on 02-15-2025 Neutrophils (Bld) [#/Vol] 7.2 10*3/uL 2.0-7.7 [facility] Anion gap in Serum or Plasma Ordered By: Wilfred Bryan on 02-15-2025 Anion gap [Moles/Vol] 13 mmol/L 5-15 [facility] Automated lymphocyte count a s percentage of total leukocytesOrdered By: Wilfred Bryan on 02-15-2025 Lymphocytes/100 WBC Auto (Unsp spec) 19.2 % 19-41 [facility] BUN/creatinine ratioOrdered By: Wilfred Bryan on 02-15-2025 Urea nitrogen/Creatinine [Mass ratio] 22.4 mg/mg High 10-20 [facility] Basic Metabolic Profile (BMP )on 02-15-2025 BUN/CRE 22.4 RATIO High 10-20 [facility] Comment on above: Performed By: #### L 501.2450, L503.6005, L500.4050, L300.8000, L100.0100 #### [facility] [address] [place], [address] Calcium [Mass/Vol] 9.8 mg/dL Normal 7.6-11.0 [facility] Comment on above: Performed By: #### L 501.2450, L503.6005, L500.4050, L300.8000, L100.0100 #### [facility] [address] [place], [address] Chloride [Moles/Vol] 101 mmol/L Normal 98-108 [facility] Comment on above: Performed By: #### L 501.2450, L503.6005, L500.4050, L300.8000, L100.0100 #### [facility] [address] [place], [address] CO2 [Moles/Vol] 26.3 mmol/L Normal 21.0-32.0 [facility] Comment on above: Performed By: #### L 501.2450, L503.6005, L500.4050, L300.8000, L100.0100 #### [facility] [address] [place], [address] Creatinine [Mass/Vol] 0.75 mg/dL Normal 0.70-1.20 [facility] Comment on above: Performed By: #### L 501.2450, L503.6005, L500.4050, L300.8000, L100.0100 #### [facility] [address] [place], [address] ECRCL 53.51 ml/min Normal 50-250 [facility] Comment on above: Performed By: #### L 501.2450, L503.6005, L500.4050, L300.8000, L100.0100 #### [facility] [address] [place], [address] GAP 13 Normal 5-15 [facility] Comment on above: Performed By: #### L 501.2450, L503.6005, L500.4050, L300.8000, L100.0100 #### [facility] [address] [place], [address] GFR/1.73 sq M.predicted among non-blacks MDRD (S/P/Bld) [Vol rate/Area] 86 mL/min/{1.73_m2} Normal >60 [facility] Comment on above: Result Comment: mL/m in/1.73m2 CKD-EPI Creatinine Equation (2020) Performed By: #### L 501.2450, L503.6005, L500.4050, L300.8000, L100.0100 #### [facility] [address] [place], [address] Glucose [Mass/Vol] 136 mg/dL High 70-99 [facility] Comment on above: Performed By: #### L 501.2450, L503.6005, L500.4050, L300.8000, L100.0100 #### [facility] [address] [place], [address] Potassium [Moles/Vol] 3.2 mmol/L Low 3.3-5.1 [facility] Comment on above: Performed By: #### L 501.2450, L503.6005, L500.4050, L300.8000, L100.0100 #### [facility] [address] [place], [address] Sodium [Moles/Vol] 140 mmol/L Normal 133-145 [facility] Comment on above: Performed By: #### L 501.2450, L503.6005, L500.4050, L300.8000, L100.0100 #### [facility] [address] [place], [address] Urea nitrogen [Mass/Vol] 17 mg/dL Normal 4-19 [facility] Comment on above: Performed By: #### L 501.2450, L503.6005, L500.4050, L300.8000, L100.0100 #### [facility] [address] [place], [address] Basophil percentageOrdered B y: Wilfred Bryan on 02-15-2025 Basophils/100 WBC (Bld) 1.0 % 0-1 [facility] CBC W/Diff, Automatedon 02-02 Absolute Lymph 1.81 X10 3/uL Normal 0.83-4.51 [facility] Comment on above: Performed By: #### L 501.2450, L503.6005, L500.4050, L300.8000, L100.0100 #### [facility] [address] [place], [address] Absolute Neut 7.2 X10 3/uL Normal 2.0-7.7 [facility] Comment on above: Performed By: #### L 501.2450, L503.6005, L500.4050, L300.8000, L100.0100 #### [facility] [address] [place], [address] Basophils/100 WBC (Bld) 1.0 % Normal 0-1 [facility] Comment on above: Performed By: #### L 501.2450, L503.6005, L500.4050, L300.8000, L100.0100 #### [facility] [address] [place], [address] Eosinophils/100 WBC (Bld) 0.7 % Normal 0-5 [facility] Comment on above: Performed By: #### L 501.2450, L503.6005, L500.4050, L300.8000, L100.0100 #### [facility] [address] [place], [address] Erythrocyte distribution width (RBC) [Ratio] 13.2 % Normal 11.6-14.6 [facility] Comment on above: Performed By: #### L 501.2450, L503.6005, L500.4050, L300.8000, L100.0100 #### [facility] [address] [place], [address] Hematocrit (Bld) [Volume fraction] 41.5 % Normal 37-47 [facility] Comment on above: Performed By: #### L 501.2450, L503.6005, L500.4050, L300.8000, L100.0100 #### [facility] [address] [place], [address] Hemoglobin (Bld) [Mass/Vol] 13.6 g/dL Normal 12.0-15.0 [facility] Comment on above: Performed By: #### L 501.2450, L503.6005, L500.4050, L300.8000, L100.0100 #### [facility] [address] [place], [address] IG% 0.200 Normal 0.0-0.9 [facility] Comment on above: Result Comment: IG% - Immature Granulocytes (promyelocytes, myelocytes and metamyelocytes) > 1% indicates that a LEFT SHIFT is Present. Performed By: #### L 501.2450, L503.6005, L500.4050, L300.8000, L100.0100 #### [facility] [address] [place], [address] Lymphocytes/100 WBC (Bld) 19.2 % Normal 19-41 [facility] Comment on above: Performed By: #### L 501.2450, L503.6005, L500.4050, L300.8000, L100.0100 #### [facility] [address] [place], [address] MCH (RBC) [Entitic mass] 29.9 pg Normal 27.0-32.0 [facility] Comment on above: Performed By: #### L 501.2450, L503.6005, L500.4050, L300.8000, L100.0100 #### [facility] [address] [place], [address] MCHC (RBC) [Mass/Vol] 32.8 g/dL Normal 32-36 [facility] Comment on above: Performed By: #### L 501.2450, L503.6005, L500.4050, L300.8000, L100.0100 #### [facility] [address] [place], [address] MCV (RBC) [Entitic vol] 91.2 fL Normal 81-99 [facility] Comment on above: Performed By: #### L 501.2450, L503.6005, L500.4050, L300.8000, L100.0100 #### [facility] [address] [place], [address] Monocytes/100 WBC (Bld) 1.9 % Normal 0-10 [facility] Comment on above: Performed By: #### L 501.2450, L503.6005, L500.4050, L300.8000, L100.0100 #### [facility] [address] [place], [address] Neutrophils/100 WBC (Bld) 77.0 % High 47-70 [facility] Comment on above: Performed By: #### L 501.2450, L503.6005, L500.4050, L300.8000, L100.0100 #### [facility] [address] [place], [address] Nucleated RBC (Bld) [#/Vol] 0 10*3/uL Normal 0-5 [facility] Comment on above: Performed By: #### L 501.2450, L503.6005, L500.4050, L300.8000, L100.0100 #### [facility] [address] [place], [address] Platelet mean volume (Bld) [Entitic vol] 9.7 fL Normal 6.2-12.0 [facility] Comment on above: Performed By: #### L 501.2450, L503.6005, L500.4050, L300.8000, L100.0100 #### [facility] [address] [place], [address] Platelets (Bld) [#/Vol] 263 10*3/uL Normal 150-450 [facility] Comment on above: Performed By: #### L 501.2450, L503.6005, L500.4050, L300.8000, L100.0100 #### [facility] [address] [place], [address] RBC (Bld) [#/Vol] 4.55 10*6/uL Normal 4.2-5.4 [facility] Comment on above: Performed By: #### L 501.2450, L503.6005, L500.4050, L300.8000, L100.0100 #### [facility] [address] [place], [address] RDW SD 44.6 fl High 35.1-43.9 [facility] Comment on above: Performed By: #### L 501.2450, L503.6005, L500.4050, L300.8000, L100.0100 #### [facility] [address] [place], [address] WBC (Bld) [#/Vol] 9.4 10*3/uL Normal 4.4-11.0 [facility] Comment on above: Performed By: #### L 501.2450, L503.6005, L500.4050, L300.8000, L100.0100 #### [facility] [address] [place], [address] Carbon dioxide, total [Moles /volume] in Central venous bloodOrdered By: Wilfred Bryan on 02-15-2025 CO2 [Moles/Vol] 26.3 mmol/L 21.0-32.0 [facility] Chest 1 View (Portable)on Chest 1 View (Portable) [facility] Imaging Services [address] [place], [place] [address] Chest 1 View (Portable) MR#: [id number] Acct: [id number] Name: ASHLEY GÓMEZ Rep #: [id number] : 1955 F 69 From: Dejuan Patel DO PCP: Dr. Danish Davila DO Status: REG ER Study: Chest 1 View (Portable) Date of Exam: 02/15/25 Exam# [id number] Ordering Dr: Wilfred Bryan MD PROCEDURE: CHEST 1 VIEW (PORTABLE) 02/15/2025 REASON FOR EXAM: SHORTNESS OF BREATH TECHNIQUE: Frontal view of the chest. FINDINGS: Hardware: None Heart: Normal size Lungs: Clear Bones: No aggressive Other: RAD/Chest 1 View (Portable) IMPRESSION: No acute process Reading Location: [facility] CC: Dr. Wilfred Bryan MD; Dr. Danish Davila DO Department Editor: Signed [facility] Chloride assayOrdered By: Lloyd Bryan on 02-15-2025 Chloride [Moles/Vol] 101 mmol/L 98-108 [facility] Emergency Department Summary on 02-15-2025 Emergency Department Summary [facility] Medical Records Department [address] [place] [address] Emergency Department Summary 02/15/25 MR#: [id number] Acct: [id number] Name: ASHLEY GÓMEZ Rep #: [id number] : 1955 69 From: Wilfred Bryan MD [...] day. Additionally, sometimes she smokes as well. 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 [facility] Eosinophil percentageOrdered By: Wilfred Bryan on 02-15-2025 Eosinophils/100 WBC (Bld) 0.7 % 0-5 [facility] Erythrocyte distribution wid th ratioOrdered By: Wilfred Bryan on 02-15-2025 Erythrocyte distribution width (RBC) [Ratio] 13.2 % 11.6-14.6 [facility] Erythrocyte distribution wid th standard deviationOrdered By: Wilfred Bryan on 02-15-2025 Erythrocyte distribution width (RBC) [Ratio] 44.6 fl High 35.1-43.9 [facility] Glomerular filtration rate ( GFR) estimation/1.73 sq m using serum, plasma, or whole bOrdered By: Wilfred Bryan on 02-15-2025 GFR/1.73 sq M.predicted among non-blacks MDRD (S/P/Bld) [Vol rate/Area] 86 mL/min/{1.73_m2} >60 [facility] Comment on above: mL/min/1.73m2 CKD-EP I Creatinine Equation (2020) H AND P Exam - [facility] 02-15-2025 H&P Exam - Hospitalist [facility] Medical Records Department [address] [place] [address] H P Exam - Hospitalist 02/15/25 1459 MR#: [id number] Acct: [id number] Name: ASHLEY GÓMEZ Rep #: [id number] : 1955 69 From: Bunny Avilez DO PCP: Dr. Danish Davila DO Status:ADM IN Location: [facility] IG542-4 HPI - General General Date of Admission: 02/15/25 Date of Service: 02/15/25 Chief Complaint: Shortness of breath HPI Narrative ASHLEY GÓMEZ, is a 69 F who presents to the emergency room at [facility] with complaints of shortness of breath [...] acute infiltrates patient will be admitted to [place] [address] for exacerbation of COPD with hypoxia, she will be given aerosol treatments IV Solu-Medrol, pulse ox will be monitored. 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 [facility] Hematocrit Auto (Bld) [Volum e fraction]Ordered By: Wilfred Bryan on 02-15-2025 Hematocrit (Bld) [Volume fraction] 41.5 % 37-47 [facility] Hemoglobin measurementOrdere d By: Wilfred Bryan on 02-15-2025 Hemoglobin (Bld) [Mass/Vol] 13.6 g/dL 12.0-15.0 [facility] Immature granulocytes/100 WB C Auto (Bld)Ordered By: Wilfred Bryan on 02-15-2025 Immature granulocytes/100 WBC (Bld) 0.200 % 0.0-0.9 [facility] Comment on above: IG% - Immature Granu locytes (promyelocytes, myelocytes and metamyelocytes) > 1% indicates that a LEFT SHIFT is Present. MCV (mean corpuscular volume ) determinationOrdered By: Wilfred Bryan on 02-15-2025 MCV (RBC) [Entitic vol] 91.2 fL 81-99 [facility] Mean corpuscular hemoglobin (MCH) determinationOrdered By: Wilfred Bryan on 02-15-2025 MCH (RBC) [Entitic mass] 29.9 pg 27.0-32.0 [facility] Mean corpuscular hemoglobin concentration (MCHC) determinationOrdered By: Wilfred Bryan on 02-15-2025 MCHC (RBC) [Mass/Vol] 32.8 g/dL 32-36 [facility] Mean platelet volume determi nationOrdered By: Wilfred Bryan on 02-15-2025 Platelet mean volume (Bld) [Entitic vol] 9.7 fL 6.2-12.0 [facility] Monocyte percentageOrdered B y: Wilfred Bryan on 02-15-2025 Monocytes/100 WBC (Bld) 1.9 % 0-10 [facility] Neutrophil percentageOrdered By: Wilfred Bryan on 02-15-2025 Neutrophils/100 WBC (Bld) 77.0 % High 47-70 [facility] Nucleated red blood cell per centageOrdered By: Wilfred Bryan on 02-15-2025 Nucleated RBC/100 WBC (Bld) [Ratio] 0 % 0-5 [facility] Platelet countOrdered By: Lloyd Bryan on 02-15-2025 Platelets (Bld) [#/Vol] 263 10*3/uL 150-450 [facility] Potassium measurement (mass/ volume)Ordered By: Wilfred Bryan on 02-15-2025 Potassium (Unsp spec) [Mass/Vol] 3.2 mmol/L Low 3.3-5.1 [facility] RBC Auto (Bld) [#/Vol]Ordere d By: Wilfred Bryan on 02-15-2025 RBC (Bld) [#/Vol] 4.55 10*6/uL 4.2-5.4 [facility] Serum creatinine measurement (mass/volume)Ordered By: Wilfred Bryan on 02-15-2025 Creatinine [Mass/Vol] 0.75 mg/dL 0.70-1.20 [facility] Serum glucose measurement (m ass/volume)Ordered By: Wilfred Bryan on 02-15-2025 Glucose [Mass/Vol] 136 mg/dL High 70-99 [facility] Serum or plasma calcium janneth urement (mass/volume)Ordered By: Wilfred Bryan on 02-15-2025 Calcium [Mass/Vol] 9.8 mg/dL 7.6-11.0 [facility] Serum or plasma urea nitroge n measurement (mass/volume)Ordered By: Wilfred Bryan on 02-15-2025 Urea nitrogen [Mass/Vol] 17 mg/dL 4-19 [facility] Sodium levelOrdered By: Wilfred Bryan on 02-15-2025 Sodium [Moles/Vol] 140 mmol/L 133-145 [facility] White blood cell (WBC) count Ordered By: Wilfred Bryan on 02-15-2025 WBC (Bld) [#/Vol] 9.4 10*3/uL 4.4-11.0 [facility] 36on 02-11-2025 36 Patient advised and voiced understanding. [facility] 29on 02-10-2025 29 Addended by: JUJU PATTON on: 02/10/2025 03:52 PM Modules accepted: Orders [facility] 36on 02-10-2025 36 Called patient to relay provider message left voicemail to call office back. [employer] message sent to patient. Please relay message to patient. [facility] 36 Message released to patient [...] a new script sent in. Please advise [facility] 36 Left message to return call Gsaper Nelson DO 02/10/25 12:43 PM Antibiotic, and prednisone prescribed to her local pharmacy. I would take the prednisone 5 days due to her emphysema [facility] 36 Recent Visits Date Type Provider Dept 11/12/24 Office Visit Siomara Estrada PA-C [facility] 02/22/24 Office Visit Gasper Nelson DO [facility] Showing recent visits within past 365 [...] Most recent labs completed in chart? N/A [facility] 36 Recent Visits Date Type Provider Dept 11/12/24 Office Visit Siomara Estrada PA-C [facility] 02/22/24 Office Visit Gasper Nelson DO [facility] Showing recent visits within past 365 [...] Most recent labs completed in chart? N/A [facility] 36 S: Patient spoke with [facility] nurse regarding chest congestion and [...] refill on her albuterol inhaler. (Sent via [employer] request). Allergies and pharmacy verified. R: Offered [...] or worse than normal Protocols used: Breathing [id number] [facility] 36on 12-13-2024 36 Recent Visits Date Type Provider Dept 11/12/24 Office Visit Siomara Estrada PA-C [facility] 02/22/24 Office Visit Gasper Nelson DO [facility] Showing recent visits within past 365 [...] CHOLHDLCRATI 4.2 01/13/2023 NONHDLCHOLES 174 (H) 01/13/2023 [facility] 37on 11-12-2024 37 Personalized Preventative [...] Recommendations: A preventive eye exam by an eye glass frame polisher is recommended every 1-2 years to screen for glaucoma, cataracts, macular degeneration, and other eye disorders. A preventive dental visit is recommended every 6 months. Try to get at least 150 minutes of exercise per week or 10,000 steps per day on a pedometer. You need 1200-1500mg of calcium and 5007-0675 international units of vitamin D per day. [...] when riding a bicycle or a motorcycle [facility] Office Visiton 11-12-2024 Follow-up visit [id number] [place] Gómez 1955 F Date Provider Department Center 11/12/[address] [facility] Family History Problem Relation Age [...] Brother Alive Brother Alive Level of Service:G0439 [place] PPPS, SUBSEQ VISIT Reason for Visit and Comments: Medicare Annual Wellness Visit Subsequent [677] [facility] Progress Noteon 11-12-2024 Progress Note - Chronic stable was taking simvastatin 80 mg daily but felt that that was too much and she was concerned about problems with her liver so she has been cutting in half and taking 40 mg daily. Will recheck her levels today but I believe this is reasonable enough as her levels have been adequately controlled [facility] Progress Note - Chronic stable she will continue on esomeprazole 40 mg daily. [facility] Progress Note - Chronic stable patient was recently treated for flareup with amoxicillin and prednisone she can take the prednisone she is requesting a lower dose Medrol Dosepak and a second round of antibiotics that she started in some generalized wheezing and congestion strongly encouraged smoking cessation. [facility] Progress Note [facility] - [address] [facility] [address] Dept: [phone] Dept Chief Complaint: Ashley Gómez is an [...] pain. Ga (more content not included)... [facility] 36on 10-31-2024 36 S: Patient spoke with [facility] nurse regarding chest congestion, B: Onset of [...] not coughing Protocols used: Cough - Acute Eut-Urcmzdyhmw-JPDF T-AH [facility] Progress Noteon 10-31-2024 Progress Note [facility] [address] [facility] [address] Dept: [phone] Dept Loc: [phone] Patient was identified and seen today via [...] stated that they are currently in the [facility]. If the patient is a [...] orders. Gasper Nelson DO 10/31/2024 12:20 PM [facility] 10-01-2024 36 Received signed receipt of certified letter sent to patient. Scanned to media in chart. [facility] 09-30-2024 36 Recent Visits Date Type Provider Dept 02/22/24 Office Visit Gasper Nelson DO [facility] Showing recent visits within past 365 days and meeting all other requirements Future Appointments Date Type Provider Dept 11/12/24 Appointment Gasper Nelson DO [facility] Sergio Showing future appointments within [...] recent labs completed in chart? N/A None [facility] 36on 09-16-2024 36 Recent Visits Date Type Provider Dept 02/22/24 Office Visit Gasper Nelson DO [facility] Showing recent visits within past 365 days and meeting all other requirements Future Appointments Date Type Provider Dept 09/30/24 Appointment Gasper Nelson DO [facility] Showing future appointments within [...] CHOLHDLCRATI 4.2 01/13/2023 NONHDLCHOLES 174 (H) 01/13/2023 [facility] 36on 08-05-2024 36 Transferred to result notes [facility] 36 Message released to patient as written. Patient's further questions if applicable: NA Were all questions from office addressed or relayed to the patient from encounter: Yes [facility] 36 Placed call to patient. Unable to reach them by phone to discuss lab results. Left detailed message to return call to discuss results. Please release information to patient [facility] 36 ----- Message from Juju Rodriguez sent at 08/05/2024 7:36 AM EST ----- ----- Message ----- From: Gasper Nelson DO Sent: 08/04/2024 5:20 PM EST To: [facility] Clinical Agricultural Agent Stable small pulmonary nodules and they now recommend recheck study in 1 year. As noted before she has moderate amount of emphysema. [facility] CT LUNG SCREENING FOLLOW UP LOW [...] 2:02 PM EST F/U SCAN SMOKER [facility] 36on 07-24-2024 36 Recent Visits Date Type Provider Dept 02/22/24 Office Visit Gasper Nelson DO [facility] 07/31/23 Office Visit Gasper Nelson DO [facility] Showing recent visits within past 365 days and meeting all other requirements Future Appointments Date Type Provider Dept 08/21[facility]24 [facility] appointments within next 90 [...] CHOLHDLCRATI 4.2 01/13/2023 NONHDLCHOLES 174 (H) 01/13/2023 [place] [address]on 06-28-2024 36 Reason for call: Prai, I am calling as the CT Lung [...] to get her scheduled. Thank you Contact [place] [address] No auth needed. Faxed orders to [facility]-Scheduling for pt to be sched - [facility] will sched/advise pt. My chart mess sent to patient with info to sched. [address] 06-27-2024 36 Vincent Perez, It looks like the patient navigator has done all that she can do. So it looks like all avenues have been exhausted to try and reach this patient to schedule. [facility] 36 To April to follow up [place] [address] Mrs. Gómez called in after receiving certified letter. She would like to return to complete the recommended lung screening 3 month follow-up imaging previously ordered by Dr. Nelson. Will send message to provider office to place new referral for imaging and assist patient with scheduling. She prefers [place] for imaging location and is available on Monday the if there are any appointments available. [address] 06-11-2024 36 RX loaded Next ov 08/21/24 [place] [address] Medication name: traZODone (Desyrel) 150 MG tablet [...] to picking up the medication: Yes [facility] Colonoscopy Reporton 024 Colonoscopy Report [facility] Medical Records Department [address] [place] [address] Colonoscopy Report MR#: [id number] Acct: [id number] Name: ASHLEY GÓMEZ Rep #: [id number] : 1955 68 From: Slim Weiss DO PCP: Dr. Danish Davila DO Status:REG [facility] Patient Name: [place] Gómez Procedure Date: 04/29/2024 [...] criteria for high risk CPT copyright 2021 [employer]. All rights reserved. The codes documented in this report are preliminary and upon unit technician review may be revised to meet current compliance requirements. Slim Weiss DO 04/29/2024 9:34:45 AM This report has been signed electronically. Number of Addenda: 0 Note Initiated On: 04/29/2024 8:54 AM 04/29/24 0934 Date Slim Weiss DO Cosigner Signature: Date (if indicated) CC: Dr. Danish Davila DO; Slim Weiss DO Date Dictated: 04/29/24 0854 Date Transcribed: Department Editor: WES Signed [facility] MR/POSTOP.ANEon 04-29-2024 MR/POSTOP.[facility] Medical Records Department [address] [place] [address] Anesthesia Postop Eval I 04/29/24 1403 MR#: [id number] Acct: [id number] Name: ASHLEY GÓMEZ Rep #: [id number] : 1955 68 From: Supriya Valdovinos CRNA PCP: Dr. Danish Davila, DO Status:[facility] Y Race: C Location: EN [...] Valdovinos CRNA Cosigner Signature: Date CC: Signed [facility] MR/TSMZCJWE2ht 04-29-2024 MR/POSTOPAN2 [facility] Medical Records Department [address] [place] [address] Anesthesia Postop Eval II 04/29/24 1341 MR#: [id number] Acct: [id number] Name: ASHLEY GÓMEZ Rep #: [id number] : 1955 68 From: David Valadez MD PCP: Dr. Danish Davila, DO Status:[facility] Y Race: C Location: EN [...] Date David Purdyigncarolyn Signature: Date CC: Signed [facility] 04-17-2024 36 Recent Visits Date Type Provider Dept 02/22/24 Office Visit Gasper Nelson DO [facility] 07/31/23 Office Visit Gasper Nelson DO [facility] Showing recent visits within past 365 [...] medications from any other provider? No None [facility] 04-12-[address] [facility] 04-11-2024 36 We have been unable to reach your patient to schedule their testing. Test Name: CT lung screening follow up, PFT and Mammo 1st Attempt: 03/30/24 2nd Attempt: 04/11/24 Thanks, [facility] Central Scheduling Normal [facility] Lipid 1996 panelon 4 Cholesterol [Mass/Vol] 162 mg/dL NINF - 200 mg/dL [facility] Cholesterol in HDL [Mass/Vol] 38 mg/dL Low 40 - 60 mg/dL [facility] Cholesterol in LDL [Mass/Vol] 106 mg/dL High 0 - <100 [facility] Cholesterol.total/Choles terol in HDL [Mass ratio] 4 {ratio} [facility] Comment on above: Ref Range: < 3 Low Risk for CHD 3-6 Mod Risk for CHD > 6 High Risk for CHD Interpretation and review of laboratory results Abnormal [facility] Triglyceride [Mass/Vol] 91 mg/dL NINF - 150 mg/dL [facility] Absolute lymphocyte counton 01-31-2022 Lymphocytes Auto (Unsp spec) [#/Vol] 1.28 10*3/uL 0.83-4.51 [facility] Work Phone: Basophil percentageon 2021 Basophils/100 WBC (Bld) 0.3 % 0-1 [facility] Work Phone: Chloride [Moles/Vol] 100 mmol/L 98-107 [facility] Work [facility]: Eosinophils/100 WBC (Bld) 0.0 % 0-5 [facility] Work Phone: Glucose [Mass/Vol] 153 mg/dL 74-106 [facility] Work Phone: Comment on above: Fasting Glucose resu lt greater than or equal to 126 mg/dL suggests DIABETES MELLITUS per A.D.A. criteria. Neutrophils (Bld) [#/Vol] 17.2 10*3/uL 2.0-7.7 [facility] Work Phone: Neutrophils/100 WBC (Bld) 88.5 % 47-70 [facility] Work Phone: Potassium [Moles/Vol] 3.2 mmol/L 3.5-5.1 [facility] Work Phone: Comment on above: Slight Hemolysis, Re sult may be falsely increased. Sodium [Moles/Vol] 135 mmol/L 136-145 [facility] Work Phone: WBC (Bld) [#/Vol] 19.4 10*3/uL 4.4-11.0 [facility] Work Phone: Blood erythrocytes count (nu mber/volume)on 01-31-2022 RBC (Bld) [#/Vol] 4.26 10*6/uL 4.2-5.4 [facility] Work Phone: Blood hemoglobin measurement (mass/volume)on 01-31-2022 Hemoglobin (Bld) [Mass/Vol] 12.5 g/dL 12.0-15.0 [facility] Work Phone: Blood lymphocytes/100 leukoc yteson 01-31-2022 Lymphocytes/100 WBC (Bld) 6.6 % 19-41 [facility] Work Phone: Blood monocytes/100 leukocyt eson 01-31-2022 Monocytes/100 WBC (Bld) 3.5 % 0-10 [facility] Work Phone: Blood platelet mean volumeon 01-31-2022 Platelet mean volume (Bld) [Entitic vol] 10.4 fL 6.2-12.0 [facility] Work Phone: Determination of erythrocyte mean corpuscular volume (MCV)on 01-31-2022 MCV (RBC) [Entitic vol] 88.0 fL 81-99 [facility] Work Phone: Hematocrit Auto (Bld) [Volum e fraction]on 01-31-2022 Hematocrit (Bld) [Volume fraction] 37.5 % 37-47 [facility] Work Phone: [phone] Laboratory - Chemistry and C hemistry - challengeon 01-31-2022 CO2 [Moles/Vol] 27.0 mmol/L 21.0-32.0 [facility] Work Phone: [phone] Urea nitrogen/Creatinine [Mass ratio] 22.0 mg/mg 10-20 [facility] Work Phone: [phone] Laboratory - Hematology and Cell countson 01-31-2022 Erythrocyte distribution width (RBC) [Entitic vol] 45.4 fL 35.1-43.9 [facility] Work Phone: [phone] Erythrocyte distribution width (RBC) [Ratio] 14.1 % 11.6-14.6 [facility] Work Phone: [phone] Immature granulocytes/100 WBC (Bld) 1.100 % 0.0-0.9 [facility] Work Phone: [phone] Comment on above: IG% - Immature Granu locytes (promyelocytes, myelocytes and metamyelocytes) > 1% indicates that a LEFT SHIFT is Present. MCH (RBC) [Entitic mass] 29.3 pg 27.0-32.0 [facility] Work Phone: [phone] Nucleated RBC/100 WBC (Bld) [Ratio] 0 % 0-5 [facility] Work Phone: [phone] MCHC Auto (RBC) [Mass/Vol]on 01-31-2022 MCHC (RBC) [Mass/Vol] 33.3 g/dL 32-36 [facility] Work Phone: [phone] No Panel Informationon 01-31 Estimated Creatinine Clearance Calc 49.62 ml/min [facility] Work Phone: [phone] Estimated GFR (MDRD) Amer 79 mL/min >60 [facility] Work Phone: [phone] Comment on above: GFR Calc Estimated GFR (MDRD) Non-Af Amer 65 mL/min >60 [facility] Work Phone: [phone] Comment on above: Non- GFR Calc SARS-CoV-2 & FLU Antigen (Rapid) [facility] Work Phone: [phone] Platelets bldon 01-31-2022 Platelets (Bld) [#/Vol] 188 10*3/uL 150-450 [facility] Work Phone: Serum or plasma calcium janneth urement (mass/volume)on 01-31-2022 Calcium [Mass/Vol] 9.4 mg/dL 8.5-10.1 [facility] Work Phone: Serum or plasma creatinine m easurement (mass/volume)on 01-31-2022 Creatinine [Mass/Vol] 0.91 mg/dL 0.55-1.02 [facility] Work Phone: Comment on above: The validity of the calculated GFR & GFRAA in patients over 70 years has not been determined. Clinical correlation is essential. Serum or plasma urea nitroge n measurement (mass/volume)on 01-31-2022 Urea nitrogen [Mass/Vol] 20 mg/dL 7-18 [facility] Work Phone: Thin prep Papanicolaou smear with manual screeningon 01-31-2022 Thin prep Papanicolaou smear with manual screening 8 5-15 [facility] Work Phone: DEXA Bone Density Axial Skel etonon 01-11-2022 Patient Name: ASHLEY GÓMEZ Bone Density ACCESSION EXAM DATE/TIME PROCEDURE ORDERING PROVIDER [id number] 01/11/2022 15:04 EDT OT Bone Density DEXA DO DAVILA PAUL E. Axial Skeleton CPT code 11322 Reason For Exam (OT Bone Density DEXA Axial Skeleton) . Report DXA BONE DENSITOMETRY: CLINICAL INDICATION: Asymptomatic post-menopausal status COMPARISON: None TECHNIQUE: Quantitative bone mineral densitometry of the hip and lumbar spine was performed with a dual energy x-ray observed absorptiometry device - [employer] W. Regions of interest were obtained through [...] recommendations for prevention of bone loss include: 5428-9375 mg calcium intake per day for adults [...] and Follow-up. [employer] Evidence-Based Summaries. [facility] [employer]. 2017 Bone Density Report Report Dictated on --- Final --- Dictating Physician: MD SANTIAGO LAUREN B Signed Date and Time: 01/11/2022 4:03 pm Signed by: MD SANTIAGO LAUREN B Transcribed Date and Time: 01/11/2022 4:05 REBEKAH VERMA RAD Bari Santiago MD - 01/11/2022 Patient Name: ASHLEY GÓMEZ Bone Density ACCESSION EXAM DATE/TIME PROCEDURE ORDERING PROVIDER [id number] 01/11/2022 15:04 EDT OT Bone Density DEXA DO DAVILA PAUL E. Axial Skeleton CPT code 18319 Reason For Exam (OT Bone Density DEXA Axial Skeleton) . Report DXA BONE DENSITOMETRY: CLINICAL INDICATION: Asymptomatic post-menopausal status COMPARISON: None TECHNIQUE: Quantitative bone mineral densitometry of the hip and lumbar spine was performed with a dual energy x-ray observed absorptiometry device - [employer] W. Regions of interest were obtained through [...] recommendations for prevention of bone loss include: 6255-1045 mg calcium intake per day for adults [...] and Follow-up. [employer] Evidence-Based Summaries. [facility] [employer] Education [employer] Research. 2017 Bone Density [...] Mammography ACCESSION EXAM DATE/TIME PROCEDURE ORDERING PROVIDER [id number] 01/11/2022 15:01 EDT MG Breast Tomosynthesis DO DAVILA PAUL E. BI Scr CPT code 71308 68915 Reason For Exam (MG Breast Tomosynthesis BI [...] 20, 2013, bilateral screening mammogram performed at [facility]. TISSUE DENSITY: BIRADS B - There [...] images: BB's = Nipples; skin lesions Open pamunkey = Palpable Line = Scar 2D digital [...] am Signed by: MD PAMELA, BARI [facility] [employer] [facility] OT Bone Density DEXA Axial S phongsilveriocammie 01-11-2022 OT Bone Density DEXA Axial Skeleton Patient Name: ASHLEY GÓMEZ Bone Density ACCESSION EXAM DATE/TIME PROCEDURE ORDERING PROVIDER [id number] 01/11/2022 15:04 EDT OT Bone Density DEXA DO DAVILA PAUL E. Axial Skeleton CPT code 43902 Reason For Exam (OT Bone Density DEXA Axial Skeleton) . Report DXA BONE DENSITOMETRY: CLINICAL INDICATION: Asymptomatic post-menopausal status COMPARISON: None TECHNIQUE: Quantitative bone mineral densitometry of the hip and lumbar spine was performed with a dual energy x-ray observed absorptiometry device - [employer]. Regions of interest were obtained [...] recommendations for prevention of bone loss include: 2825-9657 mg calcium intake per day for adults [...] and Follow-up. [employer] Knowledge Evidence-Based Summaries. [facility] [place] [employer] for Education and Research. 2017 Bone Density Report Report Dictated on Final Dictating Physician: MD SANTIAGO LAUREN B Signed Date and Time: 01/11/2022 4:03 pm Signed by: MD SANTIAGO LAUREN B Transcribed Date and Time: 01/11/2022 4:05 [facility] Jacqueline 10-23-2020 [facility] Telephone (GASTTW) ---- ASHLEY GÓMEZ ([id number]) 1955 F Date Time Provider Department 10/23/20 [...] Fully Assessed Reason for Visit: Schedule Evaluation [2903] Prescriptions as of 10/23/2020 Sig: HYDROCODONE 5 [...] by GERMAN RAMIREZ MD on 10/23/20 Normal [facility] Panel Information SARS-CoV-2 & FLU Antigen (Rapid) [facility] Work Phone: Vital Signs Date Time Vital Sign Value Performing Clinician Facility 03-06-2025 10:00-0400 Body temperature 97.8 [degF] Dr. Danish Davila DO Work Phone: [facility] 03-06-2025 10:00-0400 Diastolic blood pressure 78 mm[Hg] Dr. Danish Davila DO Work Phone: [facility] 03-06-2025 10:00-0400 Heart rate 86 /min Dr. Danish Davila DO Work Phone: [facility] 03-06-2025 10:00-0400 Respiratory rate 15 /min Dr. Danish Davila DO Work Phone: [facility] 03-06-2025 10:00-0400 SaO2% (BldA) [Mass fraction] 90 % Dr. Danish Davila DO Work Phone: [facility] 03-06-2025 10:00-0400 Systolic blood pressure 178 mm[Hg] Dr. Danish Davila DO Work Phone: [facility] 03-06-2025 05:54-0400 Body height 162.[address] Danish Davila DO Work Phone: [facility] 03-06-2025 05:54-0400 Body mass index (BMI) [Ratio] 19.3 kg/m2 Dr. Danish Davila DO Work Phone: [facility] 03-06-2025 05:54-0400 Body weight 51.[address] Danish Davila DO Work Phone: [facility] 03-05-2025 10:51-0400 Body height 162.[address] Danish Davila DO Work Phone: [facility] 03-05-2025 10:51-0400 Body weight 46.[address] Danish Davila DO Work Phone: [facility] 03-05-2025 10:22-0400 Body temperature 98 [degF] Dr. Danish Davila DO Work Phone: [facility] 03-05-2025 10:22-0400 Diastolic blood pressure 71 mm[Hg] Dr. Danish Davila DO Work Phone: [facility] 03-05-2025 10:22-0400 Heart rate 92 /min Dr. Danish Davila DO Work Phone: [facility] 03-05-2025 10:22-0400 Respiratory rate 16 /min Dr. Danish Davila DO Work Phone: [facility] 03-05-2025 10:22-0400 SaO2% (BldA) [Mass fraction] 97 % Dr. Danish Davila DO Work Phone: [facility] 03-05-2025 10:22-0400 Systolic blood pressure 111 mm[Hg] Dr. Danish Davila DO Work Phone: [facility] 03-05-2025 08:55-0400 Body temperature 98 [degF] Dr. Danish Davila DO Work Phone: [facility] 03-05-2025 08:55-0400 Diastolic blood pressure 71 mm[Hg] Dr. Danish Davila DO Work Phone: [facility] 03-05-2025 08:55-0400 Heart rate 92 /min Dr. Danish Davila DO Work Phone: [facility] 03-05-2025 08:55-0400 Respiratory rate 16 /min Dr. Danish Davila DO Work Phone: [facility] 03-05-2025 08:55-0400 SaO2% (BldA) [Mass fraction] 97 % Dr. Danish Davila DO Work Phone: [facility] 03-05-2025 08:55-0400 Systolic blood pressure 111 mm[Hg] Dr. Danish Davila DO Work Phone: [facility] 03-05-2025 06:55-0400 Inhaled oxygen flow rate 2 L/min Dr. Danish Davila DO Work Phone: [facility] 03-05-2025 03:26-0400 Body mass index (BMI) [Ratio] 17.4 kg/m2 Dr. Danish Davila DO Work Phone: [facility] 03-03-2025 03:34-0400 Body temperature 98.1 [degF] Dr. Danish Davila DO Work Phone: [facility] 03-03-2025 03:34-0400 Diastolic blood pressure 82 mm[Hg] Dr. Danish Davila DO Work Phone: [facility] 03-03-2025 03:34-0400 Heart rate 90 /min Dr. Danish Davila DO Work Phone: [facility] 03-03-2025 03:34-0400 Inhaled oxygen flow rate 2 L/min Dr. Danish Davila DO Work Phone: [facility] 03-03-2025 03:34-0400 Respiratory rate 18 /min Dr. Danish Davila DO Work Phone: [facility] 03-03-2025 03:34-0400 SaO2% (BldA) [Mass fraction] 92 % Dr. Danish Davila DO Work Phone: [facility] 03-03-2025 03:34-0400 Systolic blood pressure 156 mm[Hg] Dr. Danish Davila DO Work Phone: [facility] 03-02-2025 23:34-0400 Body height 162.[address] Danish Davila DO Work Phone: [facility] 03-02-2025 23:34-0400 Body mass index (BMI) [Ratio] 18.9 kg/m2 Dr. Danish Davila DO Work Phone: [facility] 03-02-2025 23:34-0400 Body weight [address] Danish Davila DO Work Phone: 3(818)[phone] [place] [address] 02-17-2025 08:14-0400 Body temperature 98.2 [degF] Dr. Danish Davila DO Work Phone: 5(114)[phone] [place] [address] 02-17-2025 08:14-0400 Diastolic blood pressure 54 mm[Hg] Dr. Danish Davila DO Work Phone: [facility] 02-17-2025 08:14-0400 Heart rate 76 /min Dr. Danish Davila DO Work Phone: [facility] 02-17-2025 08:14-0400 Respiratory rate 18 /min Dr. Danish Davila DO Work Phone: [facility] 02-17-2025 08:14-0400 SaO2% (BldA) [Mass fraction] 92 % Dr. Danish Davila DO Work Phone: [facility] 02-17-2025 08:14-0400 Systolic blood pressure 131 mm[Hg] Dr. Danish Davila DO Work Phone: [facility] 02-17-2025 04:32-0400 Inhaled oxygen flow rate 2 L/min Dr. Danish Davila DO Work Phone: [facility] 02-16-2025 15:06-0400 Body height 162.[address] Danish Davila DO Work Phone: [facility] 02-16-2025 15:06-0400 Body weight 52.[address] Danish Davila DO Work Phone: [facility] 02-15-2025 11:58-0400 Body mass index (BMI) [Ratio] 19.7 kg/m2 Dr. Danish Davila DO Work Phone: [facility] 02-15-2025 10:47-0400 Body temperature 98 [degF] Dr. Danish Davila DO Work Phone: [facility] 02-15-2025 10:47-0400 Diastolic blood pressure 68 mm[Hg] Dr. Danish Davila DO Work Phone: [facility] 02-15-2025 10:47-0400 Heart rate 87 /min Dr. Danish Davila DO Work Phone: [facility] 02-15-2025 10:47-0400 Respiratory rate 19 /min Dr. Danish Davila DO Work Phone: [facility] 02-15-2025 10:47-0400 SaO2% (BldA) [Mass fraction] 91 % Dr. Danish Davila DO Work Phone: [facility] 02-15-2025 10:47-0400 Systolic blood pressure 132 mm[Hg] Dr. Danish Davila DO Work Phone: [facility] 02-15-2025 10:30-0400 Inhaled oxygen flow rate 2 L/min Dr. Danish Davila DO Work Phone: [facility] 02-15-2025 08:30-0400 Body height 162.[address] Danish Davila DO Work Phone: [facility] 02-15-2025 08:30-0400 Body mass index (BMI) [Ratio] 19.5 kg/m2 Dr. Danish Davila DO Work Phone: [facility] 02-15-2025 08:30-0400 Body weight 51.[address] Danish Davila DO Work Phone: [facility] 11-12-2024 09:09-0400 Diastolic blood pressure 80 mm[Hg] Siomara Estrada PA-C Work Phone: [facility] 11-12-2024 09:09-0400 Systolic blood pressure 132 mm[Hg] Siomara Falcono PA-C Work Phone: [facility] 11-12-2024 08:38-0400 Body height 162.6 cm Siomara Falcono PA-C Work Phone: [facility] 11-12-2024 08:38-0400 Body mass index (BMI) [Ratio] 20.6 kg/m2 Siomara Estrada PA-C Work Phone: [facility] 11-12-2024 08:38-0400 Body temperature 97.2 [degF] Siomara Estrada PA-C Work Phone: [facility] 11-12-2024 08:38-0400 Body weight 54.43 kg Siomara Esrtada PA-C Work Phone: [facility] 11-12-2024 08:38-0400 Heart rate 83 /min Siomara Estrada PA-C Work Phone: [facility] 11-12-2024 08:38-0400 SaO2% (BldA) [Mass fraction] 90 % Siomara Estrada PA-C Work Phone: [facility] 02-22-2024 12:58-0400 Body height 162.6 cm Gasper Nelson DO Work Phone: [facility] 02-22-2024 12:58-0400 Body mass index (BMI) [Ratio] 21.11 kg/m2 Gasper Nelson DO Work Phone: [facility] 02-22-2024 12:58-0400 Body temperature 97 [degF] Gasper Nelson DO Work Phone: [facility] 02-22-2024 12:58-0400 Body weight 55.79 kg Gasper Nelson DO Work Phone: [facility] 02-22-2024 12:58-0400 Diastolic blood pressure 74 mm[Hg] Gasper Nelson DO Work Phone: [facility] 02-22-2024 12:58-0400 Heart rate 71 /min aGsper Nelson DO Work Phone: [facility] 02-22-2024 12:58-0400 SaO2% (BldA) [Mass fraction] 97 % Gasper Nelson DO Work Phone: [facility] 02-22-2024 12:58-0400 Systolic blood pressure 115 mm[Hg] Gasper Nelson DO Work Phone: [facility] 07-31-2023 15:37-0500 Body height 162.6 cm Gasper Nelson DO Work Phone: [facility] 07-31-2023 15:37-0500 Body mass index (BMI) [Ratio] 20.53 kg/m2 Gasper Nelson DO Work Phone: [facility] 07-31-2023 15:37-0500 Body temperature 97.81 [degF] Gasper Nelson DO Work Phone: [facility] 07-31-2023 15:37-0500 Body weight 54.25 kg Gasper Nelson DO Work Phone: [facility] 07-31-2023 15:37-0500 Diastolic blood pressure 78 mm[Hg] Gasper Nelson DO Work Phone: [facility] 07-31-2023 15:37-0500 Heart rate 80 /min Gasper Nelson DO Work Phone: [facility] 07-31-2023 15:37-0500 SaO2% (BldA) [Mass fraction] 94 % Gasper Nelson DO Work Phone: [facility] 07-31-2023 15:37-0500 Systolic blood pressure 138 mm[Hg] Gasper Nelson DO Work Phone: [facility] 01-13-2023 09:24-0400 Body height 162.6 cm Gasper Nelson DO Work Phone: [facility] 01-13-2023 09:24-0400 Body mass index (BMI) [Ratio] 19.74 kg/m2 Gasper Nelson DO Work Phone: [facility] 01-13-2023 09:24-0400 Body temperature 97.5 [degF] Gasper Nelson DO Work Phone: [facility] 01-13-2023 09:24-0400 Body weight 52.16 kg Gasper Nelson DO Work Phone: [facility] 01-13-2023 09:24-0400 Diastolic blood pressure 73 mm[Hg] Gasper Nelson DO Work Phone: [facility] 01-13-2023 09:24-0400 Heart rate 89 /min Gasper Nelson DO Work Phone: [facility] 01-13-2023 09:24-0400 SaO2% (BldA) [Mass fraction] 99 % Gasper Nelson DO Work Phone: [facility] 01-13-2023 09:24-0400 Systolic blood pressure 118 mm[Hg] Gasper Nelson DO Work Phone: [facility] 11-14-2022 11:49-0400 Body height 162.6 cm Siomara Estrada PA-C Work Phone: [facility] 11-14-2022 11:49-0400 Body mass index (BMI) [Ratio] 20.6 kg/m2 Siomara Estrada PA-C Work Phone: [facility] 11-14-2022 11:49-0400 Body temperature 98.01 [degF] Siomara Estrada PA-C Work Phone: [facility] 11-14-2022 11:49-0400 Body weight 54.43 kg Siomara Estrada PA-C Work Phone: [facility] 11-14-2022 11:49-0400 Diastolic blood pressure 80 mm[Hg] Siomara LOPES-C Work Phone: [facility] 11-14-2022 11:49-0400 Heart rate 82 /min Siomara CHAPAC Work Phone: [facility] 11-14-2022 11:49-0400 SaO2% (BldA) [Mass fraction] 95 % Siomara LOPES-C Work Phone: [facility] 11-14-2022 11:49-0400 Systolic blood pressure 138 mm[Hg] Siomara LOPES-C Work Phone: [facility] 10-03-2022 08:39-0500 Body height 162.6 cm Danish Monteso DO Work Phone: [facility] 10-03-2022 08:39-0500 Body mass index (BMI) [Ratio] 20.63 kg/m2 Danish Monteso DO Work Phone: [facility] 10-03-2022 08:39-0500 Body temperature 97.11 [degF] Danish Monteso DO Work Phone: [facility] 10-03-2022 08:39-0500 Body weight 54.52 kg Danish Carmonacasso DO Work Phone: [facility] 10-03-2022 08:39-0500 Diastolic blood pressure 63 mm[Hg] Danish Monteso DO Work Phone: [facility] 10-03-2022 08:39-0500 Heart rate 74 /min Danish Davila DO Work Phone: [facility] 10-03-2022 08:39-0500 SaO2% (BldA) [Mass fraction] 93 % Danish Monteso DO Work Phone: [facility] 10-03-2022 08:39-0500 Systolic blood pressure 118 mm[Hg] Danish Davila DO Work Phone: [facility] 01-31-2022 09:50-0400 Body temperature 99.4 [degF] [facility] Work Phone: 01-31-2022 09:50-0400 Diastolic blood pressure 97 mm[Hg] [facility] Work Phone: 01-31-2022 09:50-0400 Heart rate 100 /min [facility] Work Phone: 01-31-2022 09:50-0400 Respiratory rate 18 /min [facility] Work Phone: 01-31-2022 09:50-0400 SaO2% (BldA) [Mass fraction] 96 % [facility] Work Phone: 01-31-2022 09:50-0400 Systolic blood pressure 116 mm[Hg] [facility] Work Phone: 01-31-2022 09:20-0400 Body height 160.02 cm [facility] Work Phone: 01-31-2022 09:20-0400 Body mass index (BMI) [Ratio] 21.2 kg/m2 [facility] Work Phone: 01-31-2022 09:20-0400 Body weight 54.43 kg [facility] Work Phone: Encounters Encounter Date Encounter Type Care Provider Facility Start: 03-06-2025 End: 03-06-2025 Emergency department patient visit Dr. Danish Davila DO Work Phone: -Emergency Department Work Phone: Start: 03-05-2025 Non-patient / Non-visit Dr. Kelvin holman MD -[facility] Work Phone: Start: 03-04-2025 Non-patient / Non-visit Dr. Kelvin holman MD -[facility] Work Phone: Start: 03-03-2025 Non-patient / Non-visit Slim Singh nd, DO -[facility] Start: 03-03-2025 ambulatory Elisabet Ponce Facility:[facility] Start: 03-03-2025 Non-patient / Non-visit Dr. Elisabet turner MD -[facility] Start: 03-03-2025 ambulatory Tonja Jo Facility :[facility] Start: 03-03-2025 End: 03-05-2025 Evaluation and management of inpatient Dr. Tonja Jo MD -Progressive Care Unit Work Phone: Start: 02-24-2025 End: 02-24-2025 Refill Gasper Nelson DO Work Phone: [facility] Start: 02-17-2025 Non-patient / Non-visit Dr. Malaika Avilez [facility] Work Phone: Start: 02-16-2025 Non-patient / Non-visit Dr. Malaika Avilez [facility] Work Phone: Start: 02-15-2025 Non-patient / Non-visit Dr. Malaika Avilez [facility] Work Phone: Start: 02-15-2025 ambulatory Danish Davila Facility: [facility] Start: 02-15-2025 End: 02-17-2025 Evaluation and management of inpatient Dr. Bunny Avilez DO -Medical Surgical 3 Work Phone: Start: 02-10-2025 End: 02-10-2025 Orders Only Gasper Nelson DO Work Phone: [facility] Comment on above: Chronic obstructive pulmonary disease with acute exacerbation (HCC) Release of Informati on Other insomnia Start: 02-09-2025 End: 02-10-2025 Refill Siomara Estrada PA-C Work Phone: [facility] Comment on above: Chronic obstructive pulmonary disease with acute exacerbation (HCC) Start: 12-13-2024 End: 12-13-2024 Refill Gasper Nelson DO Work Phone: [facility] Start: 11-20-2024 End: 12-02-2024 Refill Gasper Serrano Miguelarleen DO [facility] Comment on above: Other insomnia Start: 11-12-2024 End: 11-12-2024 Assay of hemosiderin, quant Siomara Estrada PA-C Work Phone: [facility] Work Phone: Start: 11-12-2024 End: 11-12-2024 Patient encounter procedure Siomara Estrada PA-C [facility] Phone[facility] Comment on above: Routine general medi olga lidia examination at health care facility (Primary Dx); Encounter for screening mammogram for malignant neoplasm of breast; Hypercholesterolemia; Chronic obstructive pulmonary disease with acute exacerbation (HCC); Gastroesophageal reflux disease without esophagitis Start: 11-12-2024 End: 11-12-2024 ambulatory [facility] Start: 11-12-2024 End: 11-12-2024 Encounter for general adult medical examination without abnormal findings [facility] Start: 10-31-2024 End: 10-31-2024 Patient encounter procedure [facility] Start: 10-31-2024 End: 10-31-2024 ambulatory [facility] Start: 10-31-2024 End: 10-31-2024 Office outpatient visit 15 minutes Gasper Nelson DO Work Phone: [facility] Comment on above: Chronic obstructive pulmonary disease with acute exacerbation (HCC) (Primary Dx); Influenza Start: 09-28-2024 End: 09-30-2024 Refill Gasper Maggie Argentina DO Work Phone: [facility] Start: 09-14-2024 End: 09-16-2024 Refill Gasper Serrano Argentina DO Work Phone: [facility] Start: 07-29-2024 End: 07-29-20[facility] Start: 07-29-2024 End: 07-29-2024 Subsequent hospital visit by physician Gasper Maggie Nelson Work Phone: [facility] Comment on above: Abnormal CT scan of lung; Smoker Start: 07-24-2024 End: 07-24-2024 Refill Gasper Nelson DO Work Phone: [facility] Start: 06-28-2024 End: 07-01-2024 Telephone encounter Gasper Nelson DO Work Phone: [facility] Start: 06-11-2024 End: 06-11-2024 Refill Gasper Nelson DO Work Phone: [facility] Start: 04-29-2024 End: 04-29-2024 ambulatory Slim Weiss Facility:[facility] Start: 04-23-2024 End: 06-20-2024 Telephone encounter Joann Jane [facility] Comment on above: Care Coordination (L aldair Screening Follow up reminder - certified letter sent ) Start: 04-17-2024 End: 04-17-2024 Refill Gasper Nelson DO Work Phone: [facility] Start: 04-11-2024 End: 04-11-2024 Telephone encounter Gasper Nelson DO Work Phone: [facility] Comment on above: Other (Scheduling at [facility]) Start: 03-20-2024 ambulatory [facility] Facility:[facility] Start: 02-22-2024 End: 02-22-2024 Telephone encounter Gasper Nelson DO Work Phone: [facility] Comment on above: Referral (Dr Weiss) Start: 02-22-2024 End: 02-22-2024 Office outpatient visit 25 minutes Gasper Nelson Work Phone: [facility] Comment on above: Chronic obstructive pulmonary disease, unspecified COPD type (HCC) (Primary Dx); Abnormal CT scan of lung; Hypercholesterolemia; Colon cancer screening; Breast cancer screening by mammogram; Depression, unspecified depression type; Gastroesophageal reflux disease without esophagitis; Ex-smoker for less than 1 year Start: 02-05-2024 Telephone encounter Gasper byrnes DO Work Phone: [facility] Comment on above: Results Start: 01-02-2024 Refill Gasper vargas DO Work Phone: [facility] Start: 01-01-2024 Orders Only Gasper vargas DO Work Phone: [facility] Start: 12-24-2023 Orders Only Gasper vargas DO Work Phone: [facility] Start: 12-22-2023 Telephone encounter Gasper byrnes DO Work Phone: [facility] Comment on above: Appointment ([facility]) Start: 12-21-2023 Orders Only Gasper vargas DO Work Phone: [facility] Comment on above: COPD with acute exac erbation (HCC); Lower resp. tract infection Start: 12-18-2023 End: 12-18-2023 Subsequent hospital visit by physician Gasper Nelson DO Work Phone: [facility] Comment on above: Smoker; Moderate smoker (20 or less per day) Start: 12-17-2023 Refill Gasper vargas DO Work Phone: [facility] Start: 08-01-2023 Telephone encounter Gasper byrnes DO Work Phone: [facility] Comment on above: Orders (LDCT due in November 2023) Start: 07-31-2023 End: 07-31-2023 Office outpatient visit 15 minutes Gasper Nelson DO Work Phone: [facility] Comment on above: Chronic obstructive pulmonary disease, unspecified COPD type (HCC) (Primary Dx); Depression, unspecified depression type; Gastroesophageal reflux disease without esophagitis; Hypercholesterolemia Start: 03-14-2023 Telephone encounter Gasper byrnes DO Work Phone: [facility] Comment on above: Handicap Placard Start: 02-27-2023 Telephone encounter Gasper byrnes DO Work Phone: [facility] Comment on above: Scheduling Start: 01-15-2023 Orders Only Gasper vargas DO Work Phone: [facility] Start: 01-13-2023 Telephone encounter Gasper byrnes DO Work Phone: [facility] Comment on above: Orders (LDCT) Start: 01-13-2023 End: 01-13-2023 Office outpatient visit 25 minutes Gasper Nelson DO Work Phone: [facility] Comment on above: Chronic obstructive pulmonary disease, unspecified COPD type (HCC) (Primary Dx); Hypercholesterolemia; Gastroesophageal reflux disease without esophagitis; Smoker; Depression, unspecified depression type Start: 11-14-2022 ambulatory [facility] Six [facility] Start: 11-14-2022 Patient encounter procedure [facility] Glover [facility] Start: 11-14-2022 End: 11-14-2022 Office outpatient visit 25 minutes Siomara Estrada PA-C Work Phone: [facility] Comment on above: COPD with acute exac erbation (CMS/HCC) (HCC) (Primary Dx); Lower resp. tract infection; Smoking Start: 10-24-2022 End: 10-24-2022 ambulatory [facility] Work Phone: Start: 10-24-2022 End: 10-24-2022 Patient encounter procedure [facility], [facility] Start: 10-20-2022 Telephone encounter Danish berumen DO Work Phone: [facility] Comment on above: Orders Start: 10-17-2022 Telephone encounter Danish berumen DO Work Phone: [facility] Comment on above: Orders (Fax 10/03/22 XR Chest SULAIMAN, Pt at [facility]) Start: 10-04-2022 Telephone encounter Danish berumen DO Work Phone: [facility] Comment on above: Advice Only (cough) Start: 10-03-2022 End: 10-03-2022 Patient encounter procedure Danish Davila DO Work Phone: [facility] Comment on above: Medicare [facility], subsequent (Primary Dx); Cough, unspecified type; Chronic obstructive pulmonary disease, unspecified COPD type (HCC); Anxiety; Depression, unspecified depression type; Hypercholesterolemia; Mammogram declined; Colonoscopy refused Start: 04-22-2022 End: 04-22-2022 ambulatory [facility] Work Phone: Start: 04-22-2022 End: 04-22-2022 Patient encounter procedure [facility] Start: 01-31-2022 End: 01-31-2022 [facility] Start: 01-11-2022 End: 01-11-2022 Subsequent hospital visit by physician Danish Davila DO Work Phone: [facility] Comment on above: Menopause Start: 01-10-2022 End: 01-10-2022 Patient encounter procedure [facility] Procedures Date Procedure Procedure Detail Performing Clinician Start: 03-06-2025 Urnls dip stick/tablet reagent auto microscopy Dr. Danish Davila DO Work Phone: Start: 03-06-2025 X-ray of chest, PA and lateral views Dr. Danish Davila DO Work Phone: Start: 03-06-[address] Danish Davila DO Work Phone: Start: 03-06-2025 Computed tomography of abdomen and pelvis with contrast Dr. Danish Davila DO Work Phone: Start: 03-05-[address] Danish Davila DO Work Phone: Start: 03-05-2025 Serum inorganic phosphate measurement Dr. Danish Davila DO Work Phone: Comment on above: Previous reported result: 2.1 mg/dLEdite d by: AUTOINS on 03/05/25:0812 AMENDED REPORT 03/05/25 0812 PHOS previously reported as: 2.1 L mg/dL Start: 03-03-[address] Danish Davila DO Work Phone: Start: 03-03-[address] Danish hall DO Work Phone: Start: 03-03-2025 Urnls dip stick/tablet reagent auto microscopy Dr. Danish Davila DO Work Phone: Start: 03-03-2025 CT of thorax, abdomen and pelvis with contrast Dr. Danish Davila DO Work Phone: Start: 03-03-2025 D-dimer assay, quantitative Dr. Danish berumen DO Work Phone: Comment on above: D-Dimer ELEVATED (>0.49): Additional miriam dies and clinicalassessments are indicated to conclude diagnosis of:Deep Vein Thrombosis (DVT) or Pulmonary Embolism (PE)CRITICAL VALUE CALLED TO [id number] Jalen Jonas.RESULTS READ BACK BY SAME. Start: 03-03-[address] Danish Davila DO Work Phone: Start: 03-02-2025 Plain chest X-ray Dr. Danish Davila DO Work Phone: Start: 02-17-[address] Danish Davila DO Work Phone: Start: 02-15-2025 Plain chest X-ray Dr. Danish Davial DO Work Phone: Start: 02-15-[address] Danish Davila DO Work Phone: Start: 04-29-2024 Colonoscopy Gasper Nelson DO Work Phone: Start: 12-18-2023 Lipid 1996 panel - Serum or Plasma Morelia Nelson DO Work Phone: Start: 01-13-2023 Lipid 1996 panel - Serum or Plasma Morelia Nelson DO Work Phone: Start: 10-24-2022 Plain chest X-ray Start: 10-03-2022 Adult depression screening assessment Gasper Nelson DO Work Phone: Start: 04-22-2022 End: 04-22-2022 Plain X-ray of shoulder Start: 01-31-2022 SARS-CoV-2 & FLU Antigen (Rapid) Start: 01-31-2022 Plain chest X-ray Start: 01-11-2022 Dxa bone density study 1/ sites axial skel Danish Davila DO Work Phone: Start: 01-11-2022 Mammography Jolanta Glover RN Start: 01-10-2022 Plain chest X-ray Start: 06-04-2021 Lipid 1996 panel - Serum or Plasma Danish Davila DO Work Phone: SARS-CoV-2 & FLU Antigen (Rapid) Plan of Treatment Date Care Activity Detail Author Start: 04-29-2034 Screening for malignant neoplasm of colon [facility] Start: 12-17-2028 Lipid panel Lipid Panel [facility] Start: 01-14-2028 Lipid panel Lipid Panel [facility] Start: 06-04-2026 Lipid panel Lipid Panel [facility] Start: 11-12-2025 COVID-19 Vaccine ( season) COVID-19 Vaccine ( season) [facility] Comment on above: Postponed from 05/05/2024 (Patient Refus ed) Start: 11-12-2025 RSV Immunization for Adults (1 - Risk 60-74 years 1-dose series) RSV Immunization for Adults (1 - Risk 60-74 years 1-dose series) [facility] Comment on above: Postponed from 2014 (Patient Refus ed) Start: 05-15-2025 Depression Monitoring Depression Monitoring [facility] Start: 05-12-2025 End: 05-12-2025 Patient encounter procedure [facility] [place] Start: 05-05-2025 Influenza vaccination Influenza Vaccine (Season Ended) [facility] Start: 03-06-2025 [facility] Start: 03-06-2025 [facility] Start: 03-05-2025 Patient discharge [facility] Start: 03-03-2025 Influenza vaccination Influenza Vaccine (#1) [facility] Comment on above: Postponed from 05/05/2024 (Patient Refus ed) Start: 03-03-2025 Referral to gastroenterology service [facility] Start: 03-03-2025 Application of intermittent pneumatic compression device [facility] Start: 03-03-2025 Following clinical pathway protocol [facility] Start: 03-03-2025 Aspiration precautions [facility] Start: 03-03-2025 Assessment of risk of venous thromboembolism [facility] Start: 03-03-2025 Incentive spirometry [facility] Start: 03-03-2025 Inhalation therapy procedure [facility] Start: 03-03-2025 Insertion of catheter into peripheral vein [facility] Start: 03-03-2025 Introduction of urinary catheter [facility] Start: 03-03-2025 Measuring intake and output [facility] Start: 03-03-2025 Oxygen therapy [facility] Start: 03-03-2025 Providing care according to standard [facility] Start: 03-03-2025 Provision of activity privileges [facility] Start: 03-03-2025 Referral to service [facility] Start: 03-03-2025 Tobacco use cessation education [facility] Start: 03-03-2025 Electrocardiographic procedure [facility] Start: 03-03-2025 Measurement of occult blood in stool specimen using immunoassay [facility] Start: 03-03-2025 Respiratory pathogens DNA and RNA panel - Respiratory specimen by SHYLA with probe detection [facility] Start: 03-03-2025 Verification routine [facility] Start: 03-03-2025 Admission procedure [facility] Start: 03-03-2025 Hospital admission, emergency, from emergency room, medical nature [facility] Start: 03-03-2025 End: 03-03-2025 [facility] Start: 03-03-2025 Patient referral to dietitian [facility] Start: 03-02-2025 [facility] Start: 02-17-2025 Patient discharge [facility] Start: 02-15-2025 Following clinical pathway protocol [facility] Start: 02-15-2025 Ambulation without limitation [facility] Start: 02-15-2025 Assessment of risk of venous thromboembolism [facility] Start: 02-15-2025 Catheterization of vein [facility] Start: 02-15-2025 Insertion of catheter into peripheral vein [facility] Start: 02-15-2025 Oxygen therapy [facility] Start: 02-15-2025 Providing care according to standard [facility] Start: 02-15-2025 Verification routine [facility] Start: 02-15-2025 Admission procedure [facility] Start: 02-15-2025 Hospital admission, emergency, from emergency room, medical nature [facility] Start: 02-15-2025 End: 02-15-2025 [facility] Start: 02-15-2025 [facility] Start: 02-15-2025 Inhalation therapy procedure [facility] Start: 11-12-2024 End: 11-12-2025 CBC W Auto Differential panel - Blood CBC auto differential Lab Routine Routine general medical examination at [facility] Hypercholesterolemia Expected: 11/12/2024 (Approximate), Expires: 11/12/2025 [facility] Comment on above: Expected: 11/12/2024 (Approximate), Expi res: 11/12/2025 Start: 11-12-2024 End: 11-12-2025 Comprehensive metabolic 1998 panel - Serum or Plasma Comprehensive metabolic panel Lab Routine Routine general medical examination at [facility] Hypercholesterolemia Expected: 11/12/2024 (Approximate), Expires: 11/12/2025 [facility] Comment on above: Expected: 11/12/2024 (Approximate), Expi res: 11/12/2025 Start: 11-12-2024 End: 01-12-2026 DBT Breast - bilateral screening Bilateral screening mammogram with tomosynthesis Imaging Routine Encounter for screening mammogram for malignant neoplasm of breast Expected: 11/12/2024, Expires: 01/12/2026 [facility] Work Phone: Comment on above: Expected: 11/12/2024, Expires: Start: 11-12-2024 End: 11-12-2025 Lipid 1996 panel - Serum or Plasma Lipid panel Lab Routine Hypercholesterolemia Expected: 11/12/2024 (Approximate), Expires: 11/12/2025 [facility] Comment on above: Expected: 11/12/2024 (Approximate), Expi res: 11/12/2025 Start: 11-12-2024 End: 11-12-2024 Patient encounter procedure [facility] [place] Start: 09-30-2024 End: 09-30-2024 Patient encounter procedure 09/30/2024 4:00 PM EST Office Visit [facility] [place] [address] [place] [phone] Gasper Nelson DO [address] [place] [address] [facility] Start: 09-04-2024 Medicare Advantage Annual Wellness Visit Medicare Advantage Annual Wellness Visit [facility] Start: 08-21-2024 End: 08-21-2024 Patient encounter procedure [facility] Start: 07-29-2024 End: 07-29-2024 Patient encounter procedure 07/29/2024 11:30 AM EST Appointment [facility] [address] [place] [phone] Gasper Nelson DO [address] [place] [phone] [facility] [address] Start: 07-29-2024 Subsequent hospital visit by physician 07/29/2024 11:30 AM EST Hospital Encounter [facility] [address] [place] [address] Gasper Nelson DO [address] [place] [phone] [facility] [address] Start: 05-05-2024 COVID-19 Vaccine ( season) COVID-19 Vaccine ( season) [facility] Start: 05-05-2024 COVID-19 Vaccine ( season) COVID-19 Vaccine () [facility] Start: 05-05-2024 Influenza vaccination [facility] Start: 04-29-2024 End: 04-29-2024 Patient encounter procedure 04/29/2024 4:00 PM EDT Office Visit [facility] [address] [place] [address] Gasper Nelson DO [address] [place] [address] [facility] Start: 02-24-2024 Screening for malignant neoplasm of colon [facility] Start: 02-22-2024 End: 02-21-2025 CBC W Auto Differential panel - Blood CBC auto differential Lab Routine Chronic obstructive pulmonary disease, unspecified COPD type (HCC) Expected: 02/22/2024 (Approximate), Expires: 02/21/2025 [facility] Comment on above: Expected: 02/22/2024 (Approximate), Expi res: 02/21/2025 Start: 02-22-2024 End: 02-21-2025 Complete PFT pre and post bronchodilator Complete PFT pre and post bronchodilator PFT Routine Chronic obstructive pulmonary disease, unspecified COPD type (HCC) Expected: 02/22/2024 (Approximate), Expires: 02/21/2025 [facility] Comment on above: Expected: 02/22/2024 (Approximate), Expi res: 02/21/2025 Start: 02-22-2024 End: 02-21-2025 Comprehensive metabolic 1998 panel - Serum or Plasma Comprehensive metabolic panel Lab Routine Chronic obstructive pulmonary disease, unspecified COPD type (HCC) Expected: 02/22/2024 (Approximate), Expires: 02/21/2025 [facility] Comment on above: Expected: 02/22/2024 (Approximate), Expi res: 02/21/2025 Start: 02-22-2024 End: 02-21-2025 CT Chest for screening WO contrast CT lung screening follow up low dose Imaging Routine Abnormal CT scan of lung Smoker Expected: 02/22/2024, Expires: 02/21/2025 [facility] Work Phone: Comment on above: Expected: 02/22/2024, Expires: Start: 02-22-2024 End: 04-23-2025 DBT Breast - bilateral screening Bilateral screening mammogram with tomosynthesis Imaging Routine Breast cancer screening by mammogram Expected: 02/22/2024, Expires: 04/23/2025 [facility] Work Phone: Comment on above: Expected: 02/22/2024, Expires: Start: 02-22-2024 End: 02-22-2024 Patient encounter procedure 02/22/2024 1:00 PM EDT Office Visit [facility] [address] [place] [address] Gasper Nelson DO [address] [place] [address] [facility] Start: 02-14-2024 Screening for malignant neoplasm of colon [facility] Start: 02-05-2024 End: 02-05-2024 Patient encounter procedure 02/05/2024 9:00 AM EDT Office Visit [facility] [address] [place] [address] Gasper Nelson DO [address] [place] [address] [facility] Start: 01-22-2024 End: 01-22-2024 Patient encounter procedure 01/22/2024 10:00 AM EDT Office Visit [facility] [address] [place] [address] Gasper Nelson, DO [address] [place] [address] [facility] Start: 11-02-2023 Medicare Advantage Annual Wellness Visit (AWV) Medicare Advantage Annual Wellness Visit (AWV) [facility] Start: 10-03-2023 Depression Screening Depression Screening [facility] Start: 09-04-2023 Medicare Advantage Annual Wellness Visit Medicare Advantage Annual Wellness Visit [facility] Start: 08-01-2023 End: 08-01-2024 CT Chest for screening WO contrast CT lung screening low dose Imaging Routine Smoker Moderate smoker (20 or less per day) Expected: 08/01/2023, Expires: 08/01/2024 [facility] Work Phone: Comment on above: Expected: 08/01/2023, Expires: Start: 07-31-2023 End: 07-31-2024 Lipid 1996 panel - Serum or Plasma Lipid panel Lab Routine Hypercholesterolemia Expected: 07/31/2023 (Approximate), Expires: 07/31/2024 [facility] Work Phone: Comment on above: Expected: 07/31/2023 (Approximate), Expi res: 07/31/2024 Start: 07-14-2023 End: 07-14-2023 Patient encounter procedure [facility] Start: 05-05-2023 COVID-19 Vaccine ( season) COVID-19 Vaccine ( season) [facility] Start: 05-05-2023 Influenza vaccination Influenza Vaccine (#1) [facility] Start: 04-03-2023 End: 04-03-2023 Patient encounter procedure 04/03/2023 1:15 PM EDT Appointment [facility] [address] [place] [address] Gasper Nelson, DO [address] [place] [address] [facility] [address] Start: 04-02-2023 Depression Monitoring Depression Monitoring [facility] Start: 01-23-2023 End: 01-23-2023 Patient encounter procedure 01/23/2023 Office Visit Family Medicine Kelsie Lisa, TELEVISION SERVICE ENGINEER - ENVIRONMENTAL EPIDEMIOLOGIST [address] [place] [address] [facility] Start: 01-13-2023 End: 01-14-2024 CBC W Auto Differential panel - Blood CBC auto differential Lab Routine Smoker Expected: 01/13/2023 (Approximate), Expires: 01/14/2024 [employer] [facility] Work Phone: Comment on above: Expected: 01/13/2023 (Approximate), Expi res: 01/14/2024 Start: 01-13-2023 End: 01-14-2024 Comprehensive metabolic 1998 panel - Serum or Plasma Comprehensive metabolic panel Lab Routine Hypercholesterolemia Expected: 01/13/2023 (Approximate), Expires: 01/14/2024 [facility] Comment on above: Expected: 01/13/2023 (Approximate), Expi res: 01/14/2024 Start: 01-13-2023 End: 01-14-2024 CT Chest for screening WO contrast CT lung screening low dose Imaging Routine Smoker Expected: 01/13/2023, Expires: 01/14/2024 [employer] Work Phone: Comment on above: Expected: 01/13/2023, Expires: Start: 01-13-2023 End: 01-14-2024 Lipid 1996 panel - Serum or Plasma Lipid panel Lab Routine Hypercholesterolemia Expected: 01/13/2023 (Approximate), Expires: 01/14/2024 [facility] Comment on above: Expected: 01/13/2023 (Approximate), Expi res: 01/14/2024 Start: 01-13-2023 End: 01-14-2024 Thyrotropin [Units/volume] in Serum or Plasma TSH Lab Routine Hypercholesterolemia Expected: 01/13/2023 (Approximate), Expires: 01/14/2024 [facility] Comment on above: Expected: 01/13/2023 (Approximate), Expi res: 01/14/2024 Start: 01-11-2023 Screening for malignant neoplasm of breast Mammogram [facility] Start: 01-05-2023 Annual Wellness Visit (AWV) Annual Wellness Visit (AWV) [facility] Start: 12-24-2022 Depression Monitoring Depression Monitoring [facility] Start: 10-18-2022 End: 10-18-2023 Alanine aminotransferase [Enzymatic activity/volume] in Serum or Plasma ALT Lab Routine Hypercholesterolemia Expected: 10/18/2022 (Approximate), Expires: 10/18/2023 [facility] Comment on above: Expected: 10/18/2022 (Approximate), Expi res: 10/18/2023 Start: 10-18-2022 End: 10-18-2023 Aspartate aminotransferase [Enzymatic activity/volume] in Serum or Plasma AST Lab Routine Hypercholesterolemia Expected: 10/18/2022 (Approximate), Expires: 10/18/2023 [facility] Comment on above: Expected: 10/18/2022 (Approximate), Expi res: 10/18/2023 Start: 10-18-2022 End: 10-18-2023 Lipid 1996 panel - Serum or Plasma Lipid panel Lab Routine Hypercholesterolemia Expected: 10/18/2022 (Approximate), Expires: 10/18/2023 [facility] Comment on above: Expected: 10/18/2022 (Approximate), Expi res: 10/18/2023 Start: 10-03-2022 End: 10-03-2023 XR Chest 2 Views XR chest 2 views Imaging Routine Cough, unspecified type Expected: 10/03/2022, Expires: 10/03/2023 [facility] Work Phone: Comment on above: Expected: 10/03/2022, Expires: Start: 06-04-2022 Lipid panel Lipids [facility] Start: 04-18-2022 End: 04-18-2022 Patient encounter procedure 04/18/2022 Office Visit Family Medicine Danish Davila, DO [address] [place] [address] [facility] Start: 02-03-2022 Pneumococcal 65+ years Vaccine (2 - PCV) Pneumococcal 65+ years Vaccine (2 - PCV) [facility] Start: 02-03-2022 Pneumococcal Vaccine: 65+ Years (2 - PCV) Pneumococcal Vaccine: 65+ Years (2 - PCV) [facility] Start: 01-31-2022 [facility] Work Phone: Start: 2014 RSV Immunization aged 60 or older (1 - 1-dose 60+ series) RSV Immunization aged 60 or older (1 - 1-dose 60+ series) [facility] Start: 2014 RSV Immunization for Adults (1 - Risk 60-74 years 1-dose series) RSV Immunization for Adults (1 - Risk 60-74 years 1-dose series) [facility] Start: 2009 Screening for osteoporosis DEXA (modify frequency per FRAX score) [facility] Start: 2004 Screening for malignant neoplasm of breast Breast cancer screen [facility] Start: 2004 Shingles vaccine (1 of 2) Shingles vaccine (1 of 2) [facility] Start: 2004 Zoster Vaccines (1 of 2) Zoster Vaccines (1 of 2) [facility] Start: 1999 Screening for malignant neoplasm of colon [facility] Start: 1973 DTaP/Tdap/Td vaccine (1 - Tdap) DTaP/Tdap/Td vaccine (1 - Tdap) [facility] Start: 1973 DTaP/Tdap/Td Vaccines (1 - Tdap) DTaP/Tdap/Td Vaccines (1 - Tdap) [facility] Start: 1972 Hepatitis C screening [facility] Start: 1954 Hepatitis B Vaccines (1 of 3 - 3-dose series) Hepatitis B Vaccines (1 of 3 - 3-dose series) [facility] Start: 1955 Screening for malignant neoplasm of colon [facility] End: 12-18-2023 CT Chest for screening WO contrast [facility] Work Phone: Comment on above: Once for 1 Occurrences starting 12/18/19 until 12/18/2023 End: 07-29-2024 CT Chest for screening WO contrast [facility] Work Phone: Comment on above: Once for 1 Occurrences starting 07/29/20 until 07/29/2024 Magnesium measurement [facility] OUTSIDE PROCEDURE SCAN OUTSIDE P ROCEDURE SCAN Procedures Ordered: 12/15/2023 [facility] Comment on above: Ordered: 12/15/2023 Patient Education [facility] Work Phone: Patient referral [facility] Work Phone: End: 01-11-2022 Screening digital breast tomosynthesis bi [facility] Work Phone: Comment on above: Once for 1 Occurrences starting 01/12/20 22 until 01/11/2022 Troponin T.cardiac [Mass/volume] in Serum or Plasma by High sensitivity method [facility] Immunizations Immunization Date Immunization Notes Care Provider Emily vora 01-13-2023 Pneumococcal Conjuga te PCV20, Pf (Prevnar 20) Gasper Argentina DO Work Phone: [facility] 05-26-2022 Covid-19, Pfizer Bivalent Booster, (Age 12y+), Im, 30 Mcg/0e Gasper Nelson DO Work Phone: [facility] 05-26-2022 Influenza, High-dose Seasonal, Quadrivalent, Preservative Free Gasper Nelson DO Work Phone: [facility] 05-26-2022 influenza virus vacc ine, unspecified formulation Gasper Puneetarleen DO Work Phone: [facility] 12-11-2021 Covid-19, Pfizer Gra y Top, Do Not Dilute, (Age 12 Y+), Im, L Jolanta Glover RN [facility] 06-28-2021 Pfizer SARS-CoV-2 Vaccination Jolanta Glover RN [facility] 06-04-2021 Influenza, High-dose , Quadv, 65 yrs +, IM (Fluzone) Danish Davila DO Work Phone: [facility] Work Phone: 02-03-2021 pneumococcal polysaccharide vaccine, 23 valent Danish Davila DO Work Phone[facility] Work Phone: 10-14-2020 COVID-19, Pfizer Pur ple top, DILUTE for use, 12+ yrs, 30mcg/0.3mL dose Danish Davila DO Work Phone: [facility] Work Phone: 09-23-2020 COVID-19, Pfizer Pur ple top, DILUTE for use, 12+ yrs, 30mcg/0.3mL dose Danish Davila DO Work Phone: [facility] 09-25-2013 hepatitis B vaccine, pediatric or pediatric/adolescent dosage [facility] 05-05-2013 Influenza virus vaccine [facility] 05-05-2013 influenza, seasonal, injectable Gasper Nelson DO Work Phone: [facility] 09-04-2009 Pneumococcal Vaccine [facility] Work Phone: 09-04-2009 pneumococcal vaccine , unspecified formulation [facility] 07-14-2009 novel influenza-H1N1 -09, preservative-free, injectable Gasper Nelson DO Work Phone: [facility] 11-28-2008 hepatitis B vaccine, pediatric or pediatric/adolescent dosage Gasper Nelson DO Work Phone: [facility] 06-02-2008 hepatitis B vaccine, pediatric or pediatric/adolescent dosage Gasper Nelson DO Work Phone: [facility] 05-02-2008 hepatitis B vaccine, pediatric or pediatric/adolescent dosage Gasper Nelson DO Work Phone: [facility] Payers Date Payer Category Payer Self-pay [id number] 2019 Medicare [employer] MEDICARE ADVANTAGE [employer] MEDICARE [id number] 2019-Present [address] [address] [place] [address] Medicare O [id number] 2019 Medicare HMO [employer]IC[employer] Member Subscriber Plan / Payer (Effective 2019-Present) Name: Ashley Gómez Relation to Subscriber: Self Name: Ashley Gómez Payer ID: [id number] ([facility]) Type: Medicare HMO Address: [place] [id number] 2019 Medicare [id number] Unknown [id number] Unknown [id number] 2 Unknown [id number] 2 Unknown [id number] 2 Unknown [id number] 2 Unknown [id number] 2 Unknown [id number] 2 Unknown [id number] [id number] 2 Unknown [id number] 2 Unknown [id number] 2 Unknown [id number] 2 Unknown [id number] [id number] 2 Unknown [id number] 2 Unknown [id number] 2 Social History Date Type Detail Facility Start: 03-24-2020 End: 03-06-2025 Tobacco smoking status NHIS Smokes tobacco daily [facility] Work Phone: Start: 09-24-2019 History of tobacco use Cigarette Sm[facility] Work Phone: Start: 03-24-2020 End: 11-12-2024 Cigarettes smoked current (pack per day) - Reported 1 [facility] Work Phone: Start: 03-24-2020 End: 02-22-2024 Tobacco use and exposure Smokeless tobacco non-user [facility] Work Phone: Start: 12-24-2021 End: 02-10-2025 Alcohol intake Ex-drinker (finding) [facility] Work Phone: Start: 05-06-2021 End: 01-04-2022 History SDOH Alcohol Frequency 1 [facility] Work Phone: Start: 03-24-2020 History SDOH Social Connections Phone 2 [facility] Work Phone: Start: 03-24-2020 History SDOH Social Connections [facility] Work Phone: Start: 03-24-2020 History SDOH Social Connections Living 4 [facility] Work Phone: Start: 01-04-2022 History SDOH Physica l Activity DPW 0 [facility] Work Phone: Start: 1955 Sex Assigned At Female S [place] Start: 07-19-2015 End: 01-31-2022 Tobacco smoking status NHIS Unknown if ever smoked [facility] Start: 05-23-2014 None [place] [facility] [facility] [place] Start: 05-07-2021 [facility] Start: 05-07-2021 Non-smoker [facility] Start: 11-04-2022 End: 01-13-2023 Exposure to SARS-CoV-2 (event) Not sure [facility] Start: 01-13-2023 End: 11-12-2024 Tobacco use panel [facility] Start: 06-23-2022 Gender identity Identifies as female gender (finding) [facility] Start: 06-23-2022 Sexual orientation Heterosexual (homar you) [facility] Start: 04-04-2022 Sex Female (finding) [facility] How often do you nee d to have someone help you when you read instructions, pamphlets, or other written material from your doctor or pharmacy [SILS] Never [facility] Has the electric, [employer], [employer], or water company threatened to shut off services in your home in past 12Mo No [facility] Are you now , , , , never or living with a partner? [facility] How often to you hav e a drink containing alcohol? Never [facility] Do you feel stress - tense, restless, nervous, or anxious, or unable to sleep at night because your mind is troubled all the time - these days [OSQ] Not at all [facility] (I/We) worried wheth er (my/our) food would run out before (I/we) got money to buy more. Never true [facility] NEGATED: Highlighted row Not [facility] Goals Date Patient Goal Desired Activity /State Functional Status Date Assessment Result Facility 03-05-2025 Functional status Activity Abili ty Standby Assist [facility] Work Phone: 03-04-2025 Functional status Ambulates [facility] Work Phone: 02-17-2025 Functional status Ambulates [facility] Work Phone: Mental Status Date Assessment Result Facility 03-05-2025 Cognitive function Voice/Name [facility] Work Phone: 03-05-2025 Cognitive function Voice/Name [facility] Work Phone: 03-02-2025 Cognitive function Voice/Name [facility] Work Phone: 02-17-2025 Cognitive function Voice/Name [facility] Work Phone: Clinical Notes 10-03-2022 to 03-06-2025 Note Date & Type Note Facility 03-06-2025 Discharge summary [place] [address]-03-2025 Radiology Diagnostic study note [facility] [address] [place] [id number] Chest PA and Lateral MR#: [id number] Acct: [id number] Name: ASHLEY GÓMEZ Rep #: [id number] : 1955 F 69 From: Swati Cuenca MD PCP: Dr. Gasper Nelson DO Status: RE G ER Study:Chest PA and Lateral Date of Exam: 03/06/25 Exam# [id number] Ordering Dr: Nicko Pandya DO PROCEDURE: CHEST PA AND LATERAL 03/06/2025 REASON FOR EXAM: SHORTNESS OF BREATH TECHNIQUE: CHEST PA AND LATERAL COMPARISON: 03/03/2025 FINDINGS: EKG leads overlie the chest. Lungs are hyperexpanded with chronic interstitial changes, no superimposed acutepulmonary process. Heart size and mediastinum are unremarkable. Bony structures show degenerative change RAD/Chest PA and Lateral IMPRESSION: Hyperexpanded lungs without a superimposed acute pulmonary process or significant interval change Reading Location: [id number] CC: Dr. Nicko De Luna DO; Dr. Gasper Nelson DO ~ Department Editor: Signed [facility] 03-06-2025 Radiology Diagnostic study note [facility] [address] [place], [place] [id number] Abdomen/Pelvis WITH Contrast MR#: [id number] Acct: [id number] Name: ASHLEY GÓMEZ Rep #: [id number] : 1955 F 69 From: Swati Cuenca MD PCP: Dr. Gasper Nelson DO Status: RE G ER Study:Abdomen/Pelvis WITH Contrast Date of Ex am: 03/06/25 Exam# [id number] Ordering Dr: Nicko Pandya DO PROCEDURE: ABDOMEN/PELVIS WITH CONTRAST 03/06/2025 REASON FOR EXAM: EPIGASTRIC ABDOMINAL PAIN TECHNIQUE: ABDOMEN/PELVIS WITH CONTRAST Coronal and Sagittal reconstruction series were provided. CONTRAST: Isovue 370 VOLUME: 100 mL One or more dose reduction techniques were used (e.g., Automated exposure control, adjustment of the mA and/or kV according to patient size, use of iterative reconstruction technique. RADIATION DOSE SUMMARY: CTDlvol: 16.00 mGy DLP: 300.17 mGycm COMPARISON: 03/02/2025 FINDINGS: Lung bases: Chronic interstitial changes with dependent atelectasis. Stable retrocardiac hiatal hernia with evidence to suspect GE reflux Liver: Normal size. No mass. Gallbladder: Surgically absent. Spleen: Normal size. Pancreas: Normal size without evidence of mass surrounding inflammation or ductal dilation. Adrenals: Unremarkable Kidneys: Normal renal sizes. No hydronephrosis. Bladder: Unremarkable Reproductive Organs: Uterus is present, the endometrium can not be accurately evaluated with CT. No suspicious adnexal mass or free fluid. Bowel: Small bowel loops are unremarkable. Retained stool noted in the colon scattered colonic diverticula without CT evidence of acute diverticulitis. Appendix: Not visualized No free intraperitoneal fluid, air, or suspicious adenopathy. Peripheral calcifications in the abdominal aorta without aneurysm Bones: Degenerative bony changes without fracture or suspicious osseous lesion, there is a rotatory scoliotic curvature. CT/Abdomen/Pelvis WITH Contrast IMPRESSION: Persistent evidence of retrocardiac hiatal hernia with thickening of the distal esophagus suggesting reflux esophagitis. No suspicious solid organ abnormality No free intraperitoneal fluid, air, or suspicious adenopathy Colonic diverticulosis, no CT evidence of acute diverticulitis Degenerative bony changes Reading Location: [id number] CC: Dr. Nicko De Luna DO; Dr. Gasper Nelson DO ~ Department Editor: Signed [facility] 03-05-2025 Discharge summary Note Date/Time March 05, 2025 10:22am [facility] Medical Records Department [address] [place] [address] Discharge Summary 03/05/25 0727 MR#: [id number] Acct: [id number] Name: ASHLEY GÓMEZ Rep #:[id number] : 1955 69 From: Kelvin Falk MD PCP: Dr. Gasper Petrilla, DO Status:AD M IN Location: [facility] [id number] Providers Date of Admission: 03/03/25 Primary Care Physician: Dr. Gasper Nelson, Consultations 03/03/25 07:29 Consult: Gastroenterology Routine Consulting Provider: [facility] Reason for Consult: Hematemesis EMERGENT Consult: No MD Notified: Yes Date Notified: 03/03/25 Time Notified: 08:08 Method of Notification: Text Reason For Visit: ? GI BLEED, HYPOXIA, GERALDO, ELEVATED TROP Diagnosis Discharge Diagnosis (1) Intractable nausea and vomiting: Status: Acute Code(s): R11.2 - Nausea with vomiting, unspecified Plan Patient is a 69-year-old female admitted with hematemesis. Patient was also found to be hypoxic on admission admitted to a monitored bed for further management 1. Upper GI bleed ?Patient admitted to a monitored bed. Dr. Weiss with gastroenterology was consulted. 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 Biopsied. - Hiatal hernia. No gross lesions in the entire stomach. No gross lesions in the entire examined duodenum.. Patient hemoglobin remains stable. Patient remains on PPI 2. Acute hypoxia ?Secondary to atelectasis. CT of the of the chest obtained did show Small tracheal secretions. Moderate emphysema. Right anterior lung scar/atelectasis. Slight dependent atelectasis. No consolidation, effusion, or pneumothorax. Plan is for patient to be assessed for home oxygen prior to this - I have reviewed the oxygen testing, and this patient qualifies for the home equipment and portability. The patient is mobile in the home and the community. 3. 5 mm noncalcified upper lobe nodule. ? Patient informed of the above finding patient to follow-up with primary care physician to have a repeat low-dose CT for stability or otherwise of the above noted 4. Elevated troponin ? Thought to be secondary to demand ischemia from hypoxia will continue with monitoring 5. COPD ? Not in exacerbation aerosol treatment as needed 6. Depression with anxiety ? Patient is on venlafaxine as well as trazodone 7. Dyslipidemia ?Patient is on statin therapy, continued at home dose 8. Tobacco dependence ? Counseled on cessation, offered nicotine patch for tobacco cravings 9. Underweight with BMI of 17.7 ? Complicating care 10. GERALDO ruled out 11. Hyperkalemia ? Present on admission treated per protocol 12. DVT prophylaxis ? Avoiding the use of chemoprophylaxis given patient hematemesis on presentation Medications at Discharge Home Medications esomeprazole magnesium 20 mg capsule,delayed release (Nexium) 40 mg PO DAILY 08/08/13 simvastatin 80 mg tablet 40 mg PO QHS depression 03/20/24 venlafaxine 150 mg capsule,extended release 24 hr 150 mg PO DAILY depression 03/20/24 albuterol sulfate 90 mcg/actuation breath activated powder inhaler 2 inh inhalation Q4H PRN shortness of breath or wheezing 02/15/25 trazodone 50 mg tablet 150 mg (3 x 50 mg) PO QHS #15 tabs 02/17/25 albuterol sulfate 90 mcg/actuation aerosol inhaler inhalation 03/03/25 prednisone 20 mg tablet 20 mg PO BID 03/03/25 nystatin 100,000 unit/mL oral suspension 500,000 unit (5 mL) PO 4X/DAY #300 mL 03/05/25 Hospital Course Summary of Care Provided Minutes Spent on Discharge: 32 Physical Exam Narrative GENERAL: cooperative HEENT: Atraumatic; normocephalic EYES; Anicteric, Normal Conjunctiva NECK; supple, normal thyroid, RESPIRATORY: Diminished to auscultation CARDIOVASCULAR: Regular S1 S2, GI: soft, normoactive bowel sounds, : No Renal angle tenderness; EXTREMITIES: No edema, no clubbing, MUSCULOSKELETAL: no muscle wasting NEURO: Awake; no lateralizing signs. SKIN: No Rash PSYCH; Flat affect Weight / BMI Weight Weight: 46.1 kg Body Mass Index (BMI) 17.4 ABG / Lab / Microbiology Data 03/05/25 06:08 03/05/25 06:08 Laboratory: Laboratory Results - last 24 hr 03/05/25 06:08: WBC 9.9, RBC 4.49, Hgb 13.6, Hct 40.6, MCV 90.4, MCH 30.3, MCHC 33.5, RDW Std Deviation 43.2, RDW Coeff of Tr 13.2, Plt Count 227, MPV 10.3, Immature Gran % (Auto) 0.400, Neut % (Auto) 84.7 H, Lymph % (Auto) 11.9 L, [place] % (Auto) 2.4, Eos % (Auto) 0.3, Baso % (Auto) 0.3, Absolute Neuts (auto) 8.3 H, Absolute Lymphs (auto) 1.17, Nucleated RBC % 0, Sodium 134, Potassium 3.6, Chloride 99, Carbon Dioxide 19.1 L, Anion Gap 16 H, BUN 24 H, Creatinine 0.76, Estim Creat Clear Calc 47.62 L, Est GFR (MDRD) Non-Af 84, BUN/Creatinine Ratio 31.2 H, Glucose 148 H, Calcium 9.6, Phosphorus 2.2 L, Magnesium 1.8 Microbiology: Microbiology 03/03/25 05:49 Mucosa - Nasopharyngeal Respiratory Panel (PCR) - Final D/C Instructions Discharge Diet: No restrictions Discharge Activity: Return to Normal Activity Call your doctor if you observe: Fever of 101 or Higher, Shortness of breath, Fainting spells and Chest pain DC O2, CPAP, BIPAP Needs Home O2 Discharge instructions: Yes Type of respiratory needs?: Oxygen Oxygen frequency: With Ambulation Oxygen liters per minute during Ambulation: 2 DC home with Oxygen: Yes Home O2 MD Review: I have reviewed the oxygen testing, and the patient qualifies for home oxygen equipment and portability. The patient is mobile in the home and the community. Meaningful Use Info Meaningful Use Meaningful Use [...] Rosuvastatin > than or = to 20 mg Amlodipine + Atorvastatin > than or = to 2.5/40 mg Ezetimibe + Simvastatin 10/80 mg Simvastatin 80mg Discharge Plan Admission Admit Date/Time: 03/03/25 03:30 Attending Provider: Kelvin Falk Primary Care Provider: Gasper Nelson Consulting Providers: Tonja Jo; Bunny Avilez Discharge Orders/Prescriptions Prescriptions: New nystatin 100,000 unit/mL Suspension 500,000 unit PO 4X/DAY Qty: 300 0RF Continued simvastatin 80 mg tablet 40 mg PO QHS Patient Comments: PT TAKING 40 MG, BREAKS PILL IN HALF venlafaxine 150 mg capsule,extended release 24hr 150 mg PO DAILY esomeprazole magnesium [Nexium] 20 MG capsule 40 mg PO DAILY Patient Comments: acid reflux albuterol sulfate 90 mcg/actuation aerosol powdr breath activated 2 inh inhalation Q4H PRN (Reason: shortness of breath or wheezing) trazodone 50 mg Tablet 150 mg PO QHS Qty: 15 0RF albuterol sulfate 90 mcg/actuation HFA aerosol inhaler inhalation prednisone 20 mg tablet 20 mg PO BID Rx Instructions: one twice a day for three days, then one daily until gone; unsure when it is finished Referrals / Follow Up: Gasper Nelson DO [Primary Care Provider] - Within 1 Week Danish Davila DO [Non-Staff] - Disposition Disposition (needs filled in before D/C Order can be placed): Home, Self Care Charges/Coding Visit Charges Inpatient E&M: 03980 Disch Hosp >30min 03/05/25 1022 <Electronically signed by Kelvin Falk MD> Cosigner Signature (if applicable): CC: Dr. Kelvin Falk MD; Dr. Gasper Nelson DO~ Signed [facility] Work Phone: 1(574) 905-348407-02-2025 Discharge summary [facility] Medical Records Department [address] [place] [address] Discharge Summary 03/05/25 0727 MR#: [id number] Acct: [id number] Name: ASHLEY GÓMEZ Rep #:[id number] : 1955 69 From: Kelvin Falk MD PCP: Dr. Gapser Nelson DO Status:AD M IN Location: [place] [address]- [id number] Providers Date of Admission: 03/03/25 Primary Care Physician: Dr. Gasper Nelson DO Consultations 03/03/25 07:29 Consult: Gastroenterology Routine Consulting Provider: [facility] Reason for Consult: Hematemesis EMERGENT Consult: No MD Notified: Yes Date Notified: 03/03/25 Time Notified: 08:08 Method of Notification: Text Reason For Visit: ? GI BLEED, HYPOXIA, GERALDO, ELEVATED TROP Diagnosis Discharge Diagnosis (1) Intractable nausea and vomiting: Status: Acute Code(s): R11.2 - Nausea with vomiting, unspecified Plan Patient is a 69-year-old female admitted with hematemesis. Patient was also found to be hypoxic on admission admitted to a monitored bed for further management 1. Upper GI bleed ?Patient admitted to a monitored bed. Dr. Weiss with gastroenterology was consulted. 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 Biopsied. - Hiatal hernia. No gross lesions in the entire stomach. No gross lesions in the entire examined duodenum.. Patient hemoglobin remains stable. Patient remains on PPI 2. Acute hypoxia ?Secondary to atelectasis. CT of the of the chest obtained did show Small tracheal secretions. Moderate emphysema. Right anterior lung scar/atelectasis. Slight dependent atelectasis. No consolidation, effusion, or pneumothorax. Plan is for patient to be assessed for home oxygen prior to this - I have reviewed the oxygen testing, and this patient qualifies for the home equipment and portability. The patient is mobile in the home and the community. 3. 5 mm noncalcified upper lobe nodule. ? Patient informed of the above finding patient to follow-up with primary care physician to have a repeat low-dose CT for stability or otherwise of the above noted 4. Elevated troponin ? Thought to be secondary to demand ischemia from hypoxia will continue with monitoring 5. COPD ? Not in exacerbation aerosol treatment as needed 6. Depression with anxiety ? Patient is on venlafaxine as well as trazodone 7. Dyslipidemia ?Patient is on statin therapy, continued at home dose 8. Tobacco dependence ? Counseled on cessation, offered nicotine patch for tobacco cravings 9. Underweight with BMI of 17.7 ? Complicating care 10. GERALDO ruled out 11. Hyperkalemia ? Present on admission treated per protocol 12. DVT prophylaxis ? Avoiding the use of chemoprophylaxis given patient hematemesis on presentation Medications at Discharge Home Medications esomeprazole magnesium 20 mg capsule,delayed release (Nexium) 40 mg PO DAILY 08/08/13 simvastatin 80 mg tablet 40 mg PO QHS depression 03/20/24 venlafaxine 150 mg capsule,extended release 24 hr 150 mg PO DAILY depression 03/20/24 albuterol sulfate 90 mcg/actuation breath activated powder inhaler 2 inh inhalation Q4H PRN shortness of breath or wheezing 02/15/25 trazodone 50 mg tablet 150 mg (3 x 50 mg) PO QHS #15 tabs 02/17/25 albuterol sulfate 90 mcg/actuation aerosol inhaler inhalation 03/03/25 prednisone 20 mg tablet 20 mg PO BID 03/03/25 nystatin 100,000 unit/mL oral suspension 500,000 unit (5 mL) PO 4X/DAY #300 mL 03/05/25 Hospital Course Summary of Care Provided Minutes Spent on Discharge: 32 Physical Exam Narrative GENERAL: cooperative HEENT: Atraumatic; normocephalic EYES; Anicteric, Normal Conjunctiva NECK; supple, normal thyroid, RESPIRATORY: Diminished to auscultation CARDIOVASCULAR: Regular S1 S2, GI: soft, normoactive bowel sounds, : No Renal angle tenderness; EXTREMITIES: No edema, no clubbing, MUSCULOSKELETAL: no muscle wasting NEURO: Awake; no lateralizing signs. SKIN: No Rash PSYCH; Flat affect Weight / BMI Weight Weight: 46.1 kg Body Mass Index (BMI) 17.4 ABG / Lab / Microbiology Data 03/05/25 06:08 03/05/25 06:08 Laboratory: Laboratory Results - last 24 hr 03/05/25 06:08: WBC 9.9, RBC 4.49, Hgb 13.6, Hct 40.6, MCV 90.4, MCH 30.3, MCHC 33.5, RDW Std Deviation 43.2, RDW Coeff of Tr 13.2, Plt Count 227, MPV 10.3, Immature Gran % (Auto) 0.400, Neut % (Auto) 84.7 H, Lymph % (Auto) 11.9 L, [place] % (Auto) 2.4, Eos % (Auto) 0.3, Baso % (Auto) 0.3, Absolute Neuts (auto) 8.3 H, Absolute Lymphs (auto) 1.17, Nucleated RBC % 0, Sodium 134, Potassium 3.6, Chloride 99, Carbon Dioxide 19.1 L, Anion Gap 16 H, BUN 24 H, Creatinine 0.76, Estim Creat Clear Calc 47.62 L, Est GFR (MDRD) Non-Af 84, BUN/Creatinine Ratio 31.2 H, Glucose 148 H, Calcium 9.6, Phosphorus 2.2 L, Magnesium 1.8 Microbiology: Microbiology 03/03/25 05:49 Mucosa - Nasopharyngeal Respiratory Panel (PCR) - Final D/C Instructions Discharge Diet: No restrictions Discharge Activity: Return to Normal Activity Call your doctor if you observe: Fever of 101 or Higher, Shortness of breath, Fainting spells and Chest pain DC O2, CPAP, BIPAP Needs Home O2 Discharge instructions: Yes Type of respiratory needs?: Oxygen Oxygen frequency: With Ambulation Oxygen liters per minute during Ambulation: 2 DC home with Oxygen: Yes Home O2 MD Review: I have reviewed the oxygen testing, and the patient qualifies for home oxygen equipment and portability. The patient is mobile in the home and the community. Meaningful Use Info Meaningful Use Meaningful Use [...] Rosuvastatin > than or = to 20 mg Amlodipine + Atorvastatin > than or = to 2.5/40 mg Ezetimibe + Simvastatin 10/80 mg Simvastatin 80mg Discharge Plan Admission Admit Date/Time: 03/03/25 03:30 Attending Provider: Kelvin Falk Primary Care Provider: Gasper Nelson Consulting Providers: Tonja Jo; Bunny Avilez Discharge Orders/Prescriptions Prescriptions: New nystatin 100,000 unit/mL Suspension 500,000 unit PO 4X/DAY Qty: 300 0RF Continued simvastatin 80 mg tablet 40 mg PO QHS Patient Comments: PT TAKING 40 MG, BREAKS PILL IN HALF venlafaxine 150 mg capsule,extended release 24hr 150 mg PO DAILY esomeprazole magnesium [Nexium] 20 MG capsule 40 mg PO DAILY Patient Comments: acid reflux albuterol sulfate 90 mcg/actuation aerosol powdr breath activated 2 inh inhalation Q4H PRN (Reason: shortness of breath or wheezing) trazodone 50 mg Tablet 150 mg PO QHS Qty: 15 0RF albuterol sulfate 90 mcg/actuation HFA aerosol inhaler inhalation prednisone 20 mg tablet 20 mg PO BID Rx Instructions: one twice a day for three days, then one daily until gone; unsure when it is finished Referrals / Follow Up: Gasper Nelson DO [Primary Care Provider] - Within 1 Week Danish Davila DO [Non-Staff] - Disposition Disposition (needs filled in before D/C Order can be placed): Home, Self Care Charges/Coding Visit Charges Inpatient E&M: 69865 Disch Hosp >30min 03/05/25 1022 Cosigner Signature (if applicable): CC: Dr. Kelvin Falk MD; Dr. Gasper Nelson DO~ Signed [facility]07-02-2025 [facility] Medical Records Department [address] [place] [address] Discharge Summary 03/05/25 0727 MR#: [id number] Acct: [id number] Name: ASHLEY GÓMEZ Rep #: [id number] : 1955 69 From: Kelvin Falk MD PCP: Dr. Gasper Nelson DO Status:ADM IN Location: [place] [id number] Providers Date of Admission: 03/03/25 Primary Care Physician: Dr. Gasper Nelson DO Consultations 03/03/25 07:29 Consult: Gastroenterology Routine Consulting Provider: [facility] Reason for Consult: Hematemesis EMERGENT Consult: No MD Notified: Yes Date Notified: 03/03/25 Time Notified: 08:08 Method of Notification: Text Reason For Visit: ? GI BLEED, HYPOXIA, GERALDO, ELEVATED TROP Diagnosis Discharge Diagnosis (1) Intractable nausea and vomiting: Status: Acute Code(s): R11.2 - Nausea with vomiting, unspecified Plan Patient is a 69-year-old female admitted with hematemesis. Patient was also found to be hypoxic on admission admitted to a monitored bed for further management 1. Upper GI bleed ???Patient admitted to a monitored bed. Dr. Weiss with gastroenterology was consulted. 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 Biopsied. - Hiatal hernia. No gross lesions in the entire stomach. No gross lesions in the entire examined duodenum.. Patient hemoglobin remains stable. Patient remains on PPI 2. Acute hypoxia ???Secondary to atelectasis. CT of the of the chest obtained did show Small tracheal secretions. Moderate emphysema. Right anterior lung scar/atelectasis. Slight dependent atelectasis. No consolidation, effusion, or pneumothorax. Plan is for patient to be assessed for home oxygen prior to this - I have reviewed the oxygen testing, and this patient qualifies for the home equipment and portability. The patient is mobile in the home and the community. 3. 5 mm noncalcified upper lobe nodule. ??? Patient informed of the above finding patient to follow-up with primary care physician to have a repeat low-dose CT for stability or otherwise of the above noted 4. Elevated troponin ??? Thought to be secondary to demand ischemia from hypoxia will continue with monitoring 5. COPD ??? Not in exacerbation aerosol treatment as needed 6. Depression with anxiety ??? Patient is on venlafaxine as well as trazodone 7. Dyslipidemia ???Patient is on statin therapy, continued at home dose 8. Tobacco dependence ??? Counseled on cessation, offered nicotine patch for tobacco cravings 9. Underweight with BMI of 17.7 ??? Complicating care 10. GERALDO ruled out 11. Hyperkalemia ??? Present on admission treated per protocol 12. DVT prophylaxis ??? Avoiding the use of chemoprophylaxis given patient hematemesis on presentation Medications at Discharge Home Medications esomeprazole magnesium 20 mg capsule,delayed release (Nexium) 40 mg PO DAILY 08/08/13 simvastatin 80 mg tablet 40 mg PO QHS depression 03/20/24 venlafaxine 150 mg capsule,extended release 24 hr 150 mg PO DAILY depression 03/20/24 albuterol sulfate 90 mcg/actuation breath activated powder inhaler 2 inh inhalation Q4H PRN shortness of breath or wheezing 02/15/25 trazodone 50 mg tablet 150 mg (3 x 50 mg) PO QHS #15 tabs 02/17/25 albuterol sulfate 90 mcg/actuation aerosol inhaler inhalation 03/03/25 prednisone 20 mg tablet 20 mg PO BID 03/03/25 nystatin 100,000 unit/mL oral suspension 500,000 unit (5 mL) PO 4X/DAY #300 mL 03/05/25 Hospital Course Summary of Care Provided Minutes Spent on Discharge: 32 Physical Exam Narrative GENERAL: cooperative HEENT: Atraumatic; normocephalic EYES; Anicteric, Normal Conjunctiva NECK; supple, normal thyroid, RESPIRATORY: Diminished to auscultation CARDIOVASCULAR: Regular S1 S2, GI: soft, normoactive bowel sounds, : No Renal angle tenderness; EXTREMITIES: No edema, no clubbing, MUSCULOSKELETAL: no muscle wasting NEURO: Awake; no lateralizing signs. SKIN: No Rash PSYCH; Flat affect Weight / BMI Weight Weight: 46.1 kg Body Mass Index (BMI) 17.4 ABG / Lab / Microbiology Data 03/05/25 06:08 03/05/25 06:08 Laboratory: Laboratory Results - last 24 hr 03/05/25 06:08: WBC 9.9, RBC 4.49, Hgb 13.6, Hct 40.6, MCV 90.4, MCH 30.3, MCHC 33.5, RDW Std Deviation 43.2, RDW Coeff of Tr 13.2, Plt Count 227, MPV 10.3, Immature Gran % (Auto) 0.400, Neut % (Auto) 84.7 H, Lymph % (Auto) 11.9 L, [place] % (Auto) 2.4, Eos % (Auto) 0.3, Baso % (Auto) 0.3, A bsolute Neuts (auto) 8.3 H, Absolute Lymphs (auto) 1.17, Nucleated RBC % 0, Sodium 134, Potassium 3.6, Chloride 99, Carbon Dioxide 19.1 L, Anion Gap 16 H, BUN 24 H, Creatinine 0.76, Estim Creat Clear Calc 47.62 L, Est GFR (MDRD) Non-Af 84, BUN/Creatinine Ratio 31.2 H, Glucose 148 H, Calcium 9.6, Robert (more content not included)...[facility]07-01-2025 Progress note Author Kelvin Falk [facility] Note Date/Time March 04, 2025 12:23 pm [facility] Medical Records Department [address] [place] [id number] Progress Note - Hospitalist 03/04/25 1215 MR#: [id number] Acct: [id number] Name: ASHLEY GÓMEZ Rep #:[id number] : 1955 69 From: Kelvin Falk MD PCP: Dr. Gasper Nelson, DO Status:AD M IN Location: [place] [address]- 1 Reason for Visit Reason for Visit: Diagnoses Hematemesis (03/03/25) Nausea with vomiting, unspecified (03/03/25) Subjective Subjective Patient is a 69-year-old female admitted with hematemesis. Patient was also found to be hypoxic on admission admitted to a monitored bed for further management Objective Data Objective Data Vital Signs: Vital Signs Temp Pulse Resp BP Pulse Ox O2 Del Method O2 Flow Rate 98.0 F 88 18 145/75 H 94 Nasal Cannula 2 03/04/25 08:13 03/04/25 11:30 03/04/25 11:30 03/04/25 08:13 03/04/25 08:13 03/04/25 08:13 03/04/25 08:13 Oxygen Flow Rate (L/min) 2 Oxygen Delivery Method Nasal Cannula Weight: 46.8 kg Body Mass Index (BMI) 17.6 Intake & Output: Intake and Output for Last 24 Hours 03/02/25 03/03/25 03/04/25 23:59 23:59 23:59 Intake Total 0 / 0 2375 / 2675 400 / 400 Balance 0 / 0 2375 / 2675 400 / 400 Lab / Micro Data 03/03/25 05:15 03/03/25 05:15 Labs: Laboratory Results - last 24 hr 03/04/25 05:34: Triglycerides 87, Cholesterol 215 H, LDL Cholesterol, Calc 147, VLDL Cholesterol 17, HDL Cholesterol 50, Cholesterol/HDL Ratio 4.27 Micro: Microbiology 03/03/25 05:49 Mucosa - Nasopharyngeal Respiratory Panel (PCR) - Final Radiography Diagnostic Testing: Radiology Impression Echocardiogram 03/03/25 04:02 Interpretation Summary The estimated ejection fraction is 60-65 %. Overall normal LV systolic function Diffuse aortic valve sclerosis with no evidence of aortic stenosis. No previous echocardiogram to compare. Ordering Physician: Tonja Jo Performed By: Asiya Hammond RDCS Physical Exam Narrative GENERAL: cooperative HEENT: Atraumatic; normocephalic EYES; Anicteric, Normal Conjunctiva NECK; supple, normal thyroid, RESPIRATORY: Diminished to auscultation CARDIOVASCULAR: Regular S1 S2, GI: soft, normoactive bowel sounds, : No Renal angle tenderness; EXTREMITIES: No edema, no clubbing, MUSCULOSKELETAL: no muscle wasting NEURO: Awake; no lateralizing signs. SKIN: No Rash PSYCH; Flat affect Assessment & Plan Assessment/Plan (1) Intractable nausea and vomiting: PLAN: Plan Patient is a 69-year-old female admitted with hematemesis. Patient was also found to be hypoxic on admission admitted to a monitored bed for further management 1. Upper GI bleed ?Patient admitted to a monitored bed. Dr. Weiss with gastroenterology was consulted. 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 Biopsied. - Hiatal hernia. No gross lesions in the entire stomach. No gross lesions in the entire examined duodenum.. Patient hemoglobin remains stable. Patient remains on PPI 2. Acute hypoxia ?Secondary to atelectasis. CT of the of the chest obtained did show Small tracheal secretions. Moderate emphysema. Right anterior lung scar/atelectasis. Slight dependent atelectasis. No consolidation, effusion, or pneumothorax. Plan is for patient to be assessed for home oxygen prior to this 3. 5 mm noncalcified upper lobe nodule. ? Patient informed of the above finding patient to follow-up with primary care physician to have a repeat low-dose CT for stability or otherwise of the above noted 4. Elevated troponin ? Thought to be secondary to demand ischemia from hypoxia will continue with monitoring 5. COPD ? Not in exacerbation aerosol treatment as needed 6. Depression with anxiety ? Patient is on venlafaxine as well as trazodone 7. Dyslipidemia ?Patient is on statin therapy, continued at home dose 8. Tobacco dependence ? Counseled on cessation, offered nicotine patch for tobacco cravings 9. Underweight with BMI of 17.7 ? Complicating care 10. GERALDO ruled out 11. Hyperkalemia ? Present on admission treated per protocol 12. DVT prophylaxis ? Avoiding the use of chemoprophylaxis given patient hematemesis on presentation Charges/Coding Visit Charges Inpatient E&M: 40783 Subs Hosp L2 03/04/25 1223 <Electronically signed by Kelvin Falk MD> Cosigner Signature (if applicable): CC: ~ Signed [facility] Work Phone: 1(800) 351-565507-01-2025 Progress note [facility] Medical Records Department [address] [place] [address] Progress Note - Hospitalist 03/04/25 1215 MR#: [id number] Acct: [id number] Name: ASHLEY GÓMEZ Rep #:[id number] : 1955 69 From: Kelvin Falk MD PCP: Dr. Gasper Nelson, DO Status:AD M IN Location: [place] [address] Reason for Visit Reason for Visit: Diagnoses Hematemesis (03/03/25) Nausea with vomiting, unspecified (03/03/25) Subjective Subjective Patient is a 69-year-old female admitted with hematemesis. Patient was also found to be hypoxic on admission admitted to a monitored bed for further management Objective Data Objective Data Vital Signs: Vital Signs Temp Pulse Resp BP Pulse Ox O2 Del Method O2 Flow Rate 98.0 F 88 18 145/75 H 94 Nasal Cannula 2 03/04/25 08:13 03/04/25 11:30 03/04/25 11:30 03/04/25 08:13 03/04/25 08:13 03/04/25 08:13 03/04/25 08:13 Oxygen Flow Rate (L/min) 2 Oxygen Delivery Method Nasal Cannula Weight: 46.8 kg Body Mass Index (BMI) 17.6 Intake & Output: Intake and Output for Last 24 Hours 03/02/25 03/03/25 03/04/25 23:59 23:59 23:59 Intake Total 0 / 0 2375 / 2675 400 / 400 Balance 0 / 0 2375 / 2675 400 / 400 Lab / Micro Data 03/03/25 05:15 03/03/25 05:15 Labs: Laboratory Results - last 24 hr 03/04/25 05:34: Triglycerides 87, Cholesterol 215 H, LDL Cholesterol, Calc 147, VLDL Cholesterol 17, HDL Cholesterol 50, Cholesterol/HDL Ratio 4.27 Micro: Microbiology 03/03/25 05:49 Mucosa - Nasopharyngeal Respiratory Panel (PCR) - Final Radiography Diagnostic Testing: Radiology Impression Echocardiogram 03/03/25 04:02 Interpretation Summary The estimated ejection fraction is 60-65 %. Overall normal LV systolic function Diffuse aortic valve sclerosis with no evidence of aortic stenosis. No previous echocardiogram to compare. Ordering Physician: Tonja Jo Performed By: Asiya Hammond RDCS Physical Exam Narrative GENERAL: cooperative HEENT: Atraumatic; normocephalic EYES; Anicteric, Normal Conjunctiva NECK; supple, normal thyroid, RESPIRATORY: Diminished to auscultation CARDIOVASCULAR: Regular S1 S2, GI: soft, normoactive bowel sounds, : No Renal angle tenderness; EXTREMITIES: No edema, no clubbing, MUSCULOSKELETAL: no muscle wasting NEURO: Awake; no lateralizing signs. SKIN: No Rash PSYCH; Flat affect Assessment & Plan Assessment/Plan (1) Intractable nausea and vomiting: PLAN: Plan Patient is a 69-year-old female admitted with hematemesis. Patient was also found to be hypoxic on admission admitted to a monitored bed for further management 1. Upper GI bleed ?Patient admitted to a monitored bed. Dr. Weiss with gastroenterology was consulted. 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 Biopsied. - Hiatal hernia. No gross lesions in the entire stomach. No gross lesions in the entire examined duodenum.. Patient hemoglobin remains stable. Patient remains on PPI 2. Acute hypoxia ?Secondary to atelectasis. CT of the of the chest obtained did show Small tracheal secretions. Moderate emphysema. Right anterior lung scar/atelectasis. Slight dependent atelectasis. No consolidation, effusion, or pneumothorax. Plan is for patient to be assessed for home oxygen prior to this 3. 5 mm noncalcified upper lobe nodule. ? Patient informed of the above finding patient to follow-up with primary care physician to have a repeat low-dose CT for stability or otherwise of the above noted 4. Elevated troponin ? Thought to be secondary to demand ischemia from hypoxia will continue with monitoring 5. COPD ? Not in exacerbation aerosol treatment as needed 6. Depression with anxiety ? Patient is on venlafaxine as well as trazodone 7. Dyslipidemia ?Patient is on statin therapy, continued at home dose 8. Tobacco dependence ? Counseled on cessation, offered nicotine patch for tobacco cravings 9. Underweight with BMI of 17.7 ? Complicating care 10. GERALDO ruled out 11. Hyperkalemia ? Present on admission treated per protocol 12. DVT prophylaxis ? Avoiding the use of chemoprophylaxis given patient hematemesis on presentation Charges/Coding Visit Charges Inpatient E&M: 12394 Subs Hosp L2 03/04/25 1223 Cosigner Signature (if applicable): CC: ~ Signed [facility]06-30-2025 Progress note Author Bunny [facility]gl[facility] Note Date/Time March 03, 2025 5:53 pm [facility] Medical Records Department [address] [place] [address] Progress Note - Hospitalist 03/03/25 175 MR#: [id number] Acct: [id number] Name: ASHLEY GÓMEZ Rep #:[id number] : 1955 69 From: Bunny Avilez DO PCP: Dr. Gasper Nelson, DO Status:AD M IN Location: [place] [address]- Hospitalist Note Patient was seen and examined by, she underwent an EGD which showed changes in the esophagus consistent with Franks's disease. Echocardiogram obtained today was unremarkable except for posterior leaflet mitral valve prolapse. Patient iscurrently on 2 L of oxygen, she remains medically stable and there is no evidence of bleeding. Patient will be reevaluated tomorrow for possible discharge home 03/03/251752 <Electronically signed by Bunny Avilez DO> Cosigner Signature (if applicable): CC: ~ Signed [facility] Work Phone: 1(823) 491-250906-30-2025 Consult note Author Peyton Christopher [facility] Note Date/Time March 03, 2025 4:46 pm [facility] Medical Records Department [address] [facility] [facility] [place] [address] Anesthesia Postop Eval II 03/03/25 1645 MR#: [id number] Acct: [id number] Name: ASHLEY GÓMEZ Rep #:[id number] : 1955 69 From: Peyton Christopher CRNA PCP: Dr. Gasper Nelson, DO Status:AD M IN Y Race: C Location: [place] [address] 8-1 Anesthesia Postop Eval I Sum Postop Eval Completion status Anesthesia document: Postop Eval 1 completed: Yes Anesthesia Postop Eval I Summary Anesthesia Postop Eval I Summary: Anesthesia Postop Eval I: Assessment Summary Airway patent Yes 03/03/25 14:08 FACILITY MAINTENANCE WORKER.TNES Spontaneous unlabored Yes 03/03/25 14:08 FACILITY MAINTENANCE WORKER.TNES respirations Mental status nausea No 03/03/25 14:08 FACILITY MAINTENANCE WORKER.TNES Vomiting No 03/03/25 14:08 FACILITY MAINTENANCE WORKER.TNES Anesthesia Postop Eval I: Fluid Summary Crystalloid volume administer 200 03/03/25 14:08 FACILITY MAINTENANCE WORKER.TNES (ml) Colloids volume administered ( ml) Blood Product volume administered (ml) Total IV fluid infused 200 03/03/25 14:08 FACILITY MAINTENANCE WORKER.TNES Anesthesia Postop Eval I: Summary Notes Anesthesia Complication No 03/03/25 14:08 FACILITY MAINTENANCE WORKER.TNES Anesthesia Complication Comment: Post-operative progress note Anesthesia: Postop Eval II Evaluation Mental status: Awake Pain Level: 1 nausea: No Vomiting: No 03/03/25 1646 <Electronically signed by Peytno bacon CRNA> Date _ Peyton Christopher CRNA Cosigner Signature: Date CC: ~ Signed [facility] Work Phone: 1(117) 137-542006-30-2025 Progress note [facility] Medical Records Department [address] [place] [address] Progress Note - Hospitalist 03/03/25 1751 MR#: [id number] Acct: [id number] Name: ASHLEY GÓMEZ Rep #:[id number] : 1955 69 From: Bunny Avilez DO PCP: Dr. Gasper Nelson DO Status:AD M IN Location: [place] [address] Hospitalist Note Patient was seen and examined by, she underwent an EGD which showed changes in the esophagus consistent with Franks's disease. Echocardiogram obtained today was unremarkable except for posterior leaflet mitral valve prolapse. Patient iscurrently on 2 L of oxygen, she remains medically stable and there is no evidence of bleeding. Patient will be reevaluated tomorrow for possible discharge home 03/03/251752 Cosigner Signature (if applicable): CC: ~ Signed [facility]06-30-2025 Consult note [facility] Medical Records Department [address] [place] [address] Anesthesia Postop Eval II 03/03/25 1645 MR#: [id number] Acct: [id number] Name: ASHLEY GÓMEZ Rep #:[id number] : 1955 69 From: Peyton Christopher CRNA PCP: Dr. Gasper Nelson, DO Status:AD M IN Y Race: C Location: [place] [address] Anesthesia Postop Eval I Sum Postop Eval Completion status Anesthesia document: Postop Eval 1 completed: Yes Anesthesia Postop Eval I Summary Anesthesia Postop Eval I Summary: Anesthesia Postop Eval I: Assessment Summary Airway patent Yes 03/03/25 14:08 FACILITY MAINTENANCE WORKER.TNES Spontaneous unlabored Yes 03/03/25 14:08 FACILITY MAINTENANCE WORKER.TNES respirations Mental status nausea No 03/03/25 14:08 FACILITY MAINTENANCE WORKER.TNES Vomiting No 03/03/25 14:08 FACILITY MAINTENANCE WORKER.TNES Anesthesia Postop Eval I: Fluid Summary Crystalloid volume administer 200 03/03/25 14:08 FACILITY MAINTENANCE WORKER.TNES (ml) Colloids volume administered ( ml) Blood Product volume administered (ml) Total IV fluid infused 200 03/03/25 14:08 FACILITY MAINTENANCE WORKER.TNES Anesthesia Postop Eval I: Summary Notes Anesthesia Complication No 03/03/25 14:08 FACILITY MAINTENANCE WORKER.TNES Anesthesia Complication Comment: Post-operative progress note Anesthesia: Postop Eval II Evaluation Mental status: Awake Pain Level: 1 nausea: No Vomiting: No 03/03/25 1646 a FACILITY MAINTENANCE WORKER> Date _ Peyton Christopher FACILITY MAINTENANCE WORKER Cosigner Signature: Date CC: ~ Signed [facility]06-30-2025 Consult note Author Mack Stone [facility] Note Date/Time March 03, 2025 2:08 pm [facility] Medical Records Department [address] [place] [address] Anesthesia Postop Eval I 03/03/251407 MR#: [id number] Acct: [id number] Name: ASHLEY GÓMEZ Rep #:[id number] : 1955 69 From: Mack BOND PCP: Dr. Gasper Nelson, DO Status:AD M IN Y Race: C Location: [place] [address] Anesthesia: Postop Eval I Current Vital Signs Temperature: 99.4 F Pulse Rate: 91 Blood Pressure: 132/69 Respiratory Rate: 16 Pulse Ox: 99 Assessment Airway patent: Yes Spontaneous unlabored respirations: Yes nausea: No Vomiting: No Anesthesia Complication: No Fluid Hydration Crystalloid volume administer (ml): 200 Total IV fluid infused: 200 Progress Note Anesthesia document: Postop Eval 1 completed: Yes 03/03/251407 <Electronically signed by Mack Stone CRNA> Date _ Mack Stone CRNA Cosigner Signature: Date CC: ~ Signed [facility] Work Phone: 1(706) 230-785606-30-2025 Consult note Author David Valadez [facility] Note Date/Time March 03, 2025 1:38 pm [facility] Medical Records Department [address] [place] [address] Pre-Anesthesia Evaluation 03/03/25 1332 MR#: [id number] Acct: [id number] Name: ASHLEY GÓMEZ Rep #:[id number] : 1955 69 From: David Valadez MD PCP: Dr. Gasper Nelson, DO Status:AD M IN Y Race: C Location: [place] [address] ASA Classification* ASA Classification ASA Classification: 3 Assessment & Plan Anesthesia* Anesthesia Assessment Anesthesia Assessment: Discussed sedation and/or anesthesia options, risks, benefits, and alternatives with patient/parents/legal guardian/POA. Questions invited. The patient/parents/legal guardian/POA seems to understand and agrees to proceedwith anesthesia plan. Reviewed the physical assessment, medical history, allergy history and patient home medications list prior to surgery/procedure/anesthetic and documented any changes. Performed airway and anesthesia risk assessments. Anesthesia Type Anesthesia Type: MAC History Source History Obtained from:: Patient and Chart Anesthesia Focused Assessment* Temperature: 97.9 F Pulse Rate: 86 Blood Pressure: 158/73 Respiratory Rate: 17 Pulse Ox: 97 Oxygen Delivery Method: Nasal Cannula Oxygen Flow Rate (L/min): 2 Airway Assessment Mouth opens: >3 cm Mallampati Score: II Teeth Condition: Dentures (Patient has full upper and lower dentures which are out.) Neck Range of motion (ROM): Full ROM Labs Anesthesia Preop lab: CBC WBC 16.1 K/mm3 (4.4-11.0) H 03/03/25 05:15 5 RBC 4.82 M/mm3 (4.2-5.4) 03/03/25 05:15 03/03/25 Hgb 14.6 g/dL (12.0-15.0) 03/03/25 05:15 03/03/25 Hct 43.2 % (37-47) 03/03/25 05:15 03/03/25 Plt Count 265 K/mm3 (150-450) 03/03/25 05:15 03/03/25 CHEMISTRY Potassium 3.5 mmol/L (3.3-5.1) 03/03/25 05:15 03/03/25 Sodium 141 mmol/L (133-145) 03/03/25 05:15 03/03/25 Magnesium 2.0 mg/dL (1.5-2.2) 03/03/25 03:23 03/03/25 Phosphorus 1.4 mg/dL (2.5-4.9) L 11/26/12 07:42 11/26/12 BUN 34 mg/dL (4-19) H 03/03/25 05:15 03/03/25 Creatinine 0.95 mg/dL (0.70-1.20) 03/03/25 05:15 03/03/25 Glucose 144 mg/dL (70-99) H 03/03/25 05:15 03/03/25 POC Glucose 245 mg/dL (70-110) H 10/16/13 12:24 10/16/13 TSH 3.43 uIU/mL (0.358-3.74) 10/16/13 19:28 COAG PT 13.7 SECONDS (11.9-14.4) 09/30/13 20:09 Pre-Assessment Diagnosis/Proposed Procedure Planned Operative Procedure(s): Esophagogastroduodenoscopy. Anesthesia History Anesthesia History - hospital coordinator: Anesthesia History - hospital coordinator Hx Hospitalization No 04/26/24 14:43 Any Problems With Anesthesia No 03/03/25 12:10 Cholinesterase deficiency No 04/26/24 14:43 You/Your Family Experience No 03/03/25 12:10 fever (hyperthermia) with Relationship Recent Exposure to Contagious No 03/03/25 12:10 Disease Does patient have nerve No 03/03/25 12:10 stimulator Patient instructed to have device shut off --Does patient have Pacemaker or ICD? When Was Last Pacemaker Check QUESTION #4 FULL TEXT: You/Your Family Experience fever (hyperthermia) with Anesthesia Last Oral Intake Last Oral intake: Last Oral Intake NPO since 00:00 03/03/25 12:10 Meds taken in AM with sips of Yes 03/03/25 12:10 water? Meds patient instructed to take am of surgery Any additional information?: Yes Meds taken in AM with sips of water?: Yes PONV PONV - hospital coordinator: PONV - hospital coordinator Female HX of Motion Sickness HX of N/V After Surgery Non-Smoker Duration of Surgery greater than 60 minutes Number of Risk Factors PONV Score Height & Weight Height & Weight: Anesthesia: Height & Weight Height 5 ft 4 in 03/03/25 10:07 Weight: 47.1 kg 03/03/25 10:07 Body Mass Index (BMI) 17.8 03/03/25 12:10 Respiratory Assessment Respiratory Assessment - hospital coordinator: Respiratory Tract Infection Hx - hospital coordinator Hx Respiratory Tract Infection No 04/26/24 14:43 STOP Sleep Apnea STOP Sleep Apnea - hospital coordinator: STOP Sleep Apnea - hospital coordinator Hx Hypertension No 03/03/25 04:02 Hx Sleep Apnea No 03/03/25 04:02 CPAP No 04/29/24 09:40 BIPAP No 04/26/24 14:43 Do you snore loudly (louder No 03/03/25 04:02 than talking or can be heard Do you often feel tired/ No 03/03/25 04:02 fatigued/ sleepy during daytime? Has anyone observed you stop No 03/03/25 04:02 breathing during sleep? STOP Results Negative 03/03/25 04:02 QUESTION #5 FULL TEXT : Do you snore loudly (louder than talking or can be heard through closed doors)? 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 - hospital coordinator: Tobacco Use History - hospital coordinator Tobacco Use Non-smoker 05/07/21 09:04 Smoking Status Current every day smoker 03/03/25 04:02 Hx Tobacco Use Yes 03/03/25 04:02 Years Smoking Packs Smoked per Day Smoking Cessation Date was within the last 15 years Hx Smoking Cessation Date Hx Smoking Cessation No 03/03/25 04:02 Counseling Hematologic Medial History Hematologic Hx - hospital coordinator: Hematologic Medical Hx - cell tuber hand Hx of Blood Transfusion No 03/03/25 04:02 Hx of Transfusion in last 3 No 03/03/25 04:02 Months Date of Last Transfusion (if within last 3 months) Ever experience any problems No 03/03/25 04:02 with transfusion(s)? Specify any problems Hx of Preganancy in last 3 No 03/03/25 04:02 Months Nurse Filling Out Transfusion AREAD 03/03/25 04:02 & Questions: Date: 03/03/25 03/03/25 04:02 Time: 04:26 03/03/25 04:02 Patient unable to answer at this time (ie. confused, unrespo /Reproduction History /Reproductive History - hospital coordinator: /Reproductive Hx- hospital coordinator Hx Now No 03/03/25 12:10 Gestational Age (in weeks): EDC: Hx Hx Para Hx Section SAB No 03/03/25 12:10 Active Medications Active Medications: Current Medications Generic Name Dose Route Start Last Admin Trade Name Freq PRN Reason Stop Dose Admin Acetaminophen 650 mg 03/03/25 04:02 03/03/25 05:32 Acetaminophen 325 Mg Tablet PO 650 mg Q4H PRN PRN Administration Fever, pain 1-06/13 Al Hydroxide/Mg Hydroxide 30 ml 03/03/25 04:02 Mag Hydrox/Al Hydrox/Simeth 30 Ml Udc PO Q6H PRN PRN Gastric Burning Albuterol Sulfate 2.5 mg 03/03/25 04:02 Albuterol 2.5 Mg/3 Ml Vial.Neb. INHALATION Q2H PRN PRN Dyspnea, wheezing Albuterol/Ipratropium 3 ml 03/03/25 04:02 03/03/25 10:51 Ipratropium/Albuterol Sulfate 3 Ml Ampul.Neb INHALATION 3 ml Q4HWA.RT STEVE Administration Atorvastatin Calcium 20 mg 03/03/25 22:00 Atorvastatin Calcium 20 Mg Tablet PO QHS STEVE Guaifenesin 20 ml 03/03/25 04:02 Guaifenesin 10 Ml Udc (200mg/10ml) PO Q4H PRN PRN COUGH Hydralazine HCl 10 mg 03/03/25 04:02 Hydralazine 20 Mg/Ml Vial IV Q4H PRN PRN SBP > 160 Protocol Sodium Chloride 1,000 mls @ 100 mls/hr 03/03/25 04:02 03/03/25 04:31 IV 03/03/25 14:01 100 mls/hr .Q10H STEVE Administration Pantoprazole Sodium 40 mg/ 100 mls @ 330 mls/hr 03/03/25 10:00 03/03/25 09:50 Sodium Chloride IV Infused Q12 STEVE Infusion Sodium Chloride 250 mls @ 15 mls/hr 03/03/25 04:03 IV .[id number] PRN Saline Flush Sodium Chloride 250 mls @ 15 mls/hr 03/03/25 04:03 IV .[id number] PRN Additional IVPB Infusion Lactated Ringer's 1,000 mls @ 15 mls/hr 03/03/25 13:15 03/03/25 13:07 IV 15 mls/hr .Q48H STEVE Administration Melatonin 3 mg 03/03/25 04:02 Melatonin 3 Mg Tablet PO QHS PRN PRN INSOMNIA Nystatin 500,000 unit 03/03/25 04:05 03/03/25 09:28 Nystatin 500,000 Unit/5 Ml Udc PO 500,000 unit 4X/DAY STEVE Administration Ondansetron HCl 4 mg 03/03/25 04:02 03/03/25 04:41 Ondansetron 4 Mg/2 Ml Vial IV 4 mg Q8H PRN PRN Administration NAUSEA/VOMITING Prochlorperazine Edisylate 5 mg 03/03/25 04:02 03/03/25 07:40 Prochlorperazine 10 Mg/2 Ml Vial IV 5 mg Q4H PRN PRN Administration Breakthrough Nausea/Vomiting Sodium Chloride 10 - 40 ml 03/03/25 04:03 0.9% Saline Lock 10 Ml Syringe IV UD PRN SALINE FLUSH Venlafaxine HCl 150 mg 03/03/25 10:00 03/03/25 09:28 Venlafaxine Xr 150 Mg Capsule PO 150 mg DAILY STEVE Administration PFSH Medical History Hypokalemia Smoker Hypoxia COPD exacerbation Wears dentures Wears glasses Post-menopausal Depression Arthritis [...] 80 mg tablet 40 mg PO QHS depression 03/0402/13/25 History venlafaxine 150 mg 150 mg PO DAILY depression 0 03/20/24 02/15/25 History capsule,extended release 24 hr albuterol sulfate 90 mcg/actuation 2 inh inhalation Q4 H PRN shortness 02/15/25 Unknown History breath activated powder inhaler of breath or wheezing trazodone 50 mg tablet 150 mg (3 x 50 mg) PO QHS #1 5 tabs 02/17/25 Unknown Rx albuterol sulfate 90 mcg/actuation inhalation 03/03/25 Unknown History aerosol inhaler prednisone 20 mg tablet 20 mg PO BID 03/03/25 Unknow n History Allergy/AdvReac Type Severity Reaction Status Date / Time Sulfa (Sulfonamide Allergy Hives Verified 03/02/25 23:34 Antibiotics) Family History Mother Pancreatic cancer Father COPD (chronic obstructive pulmonary disease) Brother Colon cancer Heart disease Sister Stomach cancer Brother Leukemia Surgical History History of tonsillectomy and adenoidectomy Hx of cholecystectomy Hx of appendectomy Hx of colonoscopy Social History household members: none current occupational status: employed 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 03/03/25 133 <Electronically signed by David hinkle MD> Date _ David Valadez MD Cosigner Signature: Date CC: ~ Signed [facility] Work Phone: 1(153) 206-853706-30-2025 Progress note Author Slim Friend [facility] Note Date/Time March 03, 2025 12:2 7pm [facility] Medical Records Department [address] [place] [address] Progress Note 03/03/25 1223 MR#: [id number] Acct: [id number] Name: ASHLEY GÓMEZ Rep #:[id number] : 1955 69 From: Slim Weiss DO PCP: Dr. Gasper Nelson, DO Status:AD M IN Location: [facility] [id number]- 1 Progress Note 69-year-old with multiple medical problems who was recently discharged from [facility] for COPD exacerbation. She presented to the [facility] ED on 03/03/2025 with history of approximately 72 hours of onset of malaise, fatigue with nausea and emesis. She does report that at the OSH she was going to have an upper endoscopy. However she never ended up having the upper endoscopy. WBC 22.9, hemoglobin 15.9, platelet 281 with left shift, D-dimer 0.53, CMP withchloride 97, anion gap 17, BUN/creatinine 39/1.09, GFR 59, glucose 154, lactic acid 2.4, AST/ALT 40/40 chest x-ray with no acute cardiopulmonary findings CT chest/abdomen/pelvis right lung scarring/atelectasis with slight dependent atelectasis with no otherwise acute intra-abdominal or cardiopulmonary findings EKG with SR with no acute evidence of ischemia, Physical Exam Const alert, oriented x3, no apparent distress and healthy appearing General Appearance: cooperative GI normal to inspection, nondistended, normoactive bowel sounds, soft to palpation,non-tender and non-distended Percussion: normal to percussion Rectal Exam: deferred Assessment & Plan Assessment/Plan (1) Intractable nausea and vomiting: (2) Hematemesis: PLAN: 69-year-old with COPD, history of non-ST segment elevation MA who presentswith multiple episodes of hematemesis. Differential diagnosis does include Marcela- Arriola tear, or esophagitis, peptic ulcer disease and less likely neoplasia. She should undergo an upper endoscopy evaluate upper GI tract. She was explained alternatives, risk, benefits include not withstanding bleeding, infection, sepsis, perforation, need for emergent . She will have an ASA of 3. Visit Charges Inpatient E&M: 18313 Subs Hosp L3 03/03/25 1228 <Electronically signed by Slim Weiss DO> Slim Weiss DO Cosigner Signature (if applicable): CC: ~ Signed [facility] Work Phone: 1(666) 336-901906-30-2025 Consult note [facility] Medical Records Department [address] [place] [address] Anesthesia Postop Eval I 03/03/25 1408 MR#: [id number] Acct: [id number] Name: ASHLEY GÓMEZ Rep #:[id number] : 1955 69 From: Mack BOND PCP: Dr. Gasper Nelson, DO Status:AD M IN Y Race: C Location: [place] [address] Anesthesia: Postop Eval I Current Vital Signs Temperature: 99.4 F Pulse Rate: 91 Blood Pressure: 132/69 Respiratory Rate: 16 Pulse Ox: 99 Assessment Airway patent: Yes Spontaneous unlabored respirations: Yes nausea: No Vomiting: No Anesthesia Complication: No Fluid Hydration Crystalloid volume administer (ml): 200 Total IV fluid infused: 200 Progress Note Anesthesia document: Postop Eval 1 completed: Yes 03/03/25 140 FACILITY MAINTENANCE WORKER> Date _ Mack Stone FACILITY MAINTENANCE WORKER Cosigner Signature: Date CC: ~ Signed [facility]06-30-2025 Procedure note [facility] Medical Records Department [address] [place] [address] EGD Report MR#: [id number] Acct: [id number] Name: ASHLEY GÓMEZ Rep #:[id number] : 1955 69 From: Slim Weiss DO PCP: Dr. Gasper Nelson, DO Status:AD M IN Patient Name: Ashley Gómez Procedure Date: 03/03/2025 1:55 PM Date of : 1955 Age: 69 Procedure: Upper GI endoscopy Indications: Epigastric abdominal pain, Coffee-ground emesis Providers: Slim Weiss DO Medicines: Monitored Anesthesia Care Patient Profile: This is a 69 year old female. Refer to note in patient chart for documentation of history and physical. Patient has symptoms of acute epigastric abdominal pain, acute nausea and acute vomiting. Complications: No immediate complications. Procedure: Pre-Anesthesia Assessment: [...] CV Examination: normal. Prophylactic Antibiotics: The patient requires prophylactic antibiotics due to a prior history of acute GI bleeding. Prior Anticoagulants: The patient has taken Eliquis (apixaban), last dose was 1 day prior to procedure. ASA Grade Assessment: II - A patient [...] patient was re-assessed after the procedure. After obtaining informed consent, the endoscope was passed under direct vision. Throughout the procedure, the patient's blood pressure, pulse, and oxygen saturations were monitored continuously. The Endoscope was introduced through the mouth, and advanced to the fourth part of the duodenum. Small bowel enteroscopy was deemed necessary. The upper GI endoscopy was accomplished without difficulty. The patient tolerated the procedure well. Scope In: 1:56:24 PM Scope Out: 1:59:44 PM Total Procedure Duration Time 0 hours 3 minutes 20 seconds Findings: There were esophageal mucosal changes secondary to established long-segment Franks's disease present in the lower third of the esophagus. The maximum longitudinal extent of these mucosal changes was 4 cm in length. Mucosa was biopsied with a cold forceps for histology in a targeted manner at intervals of 1 cm in the lower third of the esophagus. One specimen bottle was sent to pathology. Verification of patient identification for the specimen was done. Estimated blood loss was minimal. A hiatal hernia was present. No gross lesions were noted in the entire examined stomach. No gross lesions were noted in the entire examined duodenum. Retained fluid was found in the gastric body. Impression: - Esophageal mucosal changes secondary to established long-segment Franks's disease. Biopsied. - Hiatal hernia. - No gross lesions in the entire stomach. - No gross lesions in the entire examined duodenum. Recommendation: - [facility]. - Resume previous diet. - Continue present medications. - Await pathology results. Procedure Code(s): --- Professional --- 83550, Small intestinal endoscopy, enteroscopy beyond second portion of duodenum, not including ileum; with biopsy, single or multiple CPT copyright 2021 [employer]. All rights reserved. The codes documented in this report are preliminary and upon unit technician review may be revised to meet current compliance requirements. Slim Weiss DO 03/03/2025 2:03:52 PM This report has been signed electronically. Number of Addenda: 0 Note Initiated On: 03/03/2025 1:55 PM 03/03/25 1404 Date _ Slim Weiss DO Cosigner Signature: Date (if indicated) CC: Dr. Gasper Nelson DO; Slim Weiss DO ~ Date Dictated: 03/03/25 1355 Date Transcribed: Department Editor: RF Signed [facility]06-30-2025 Procedure note [facility] Medical Records Department [address] [place] [address] Operative Report - CC Letter MR#: [id number] Acct: [id number] Name: ASHLEY GÓMEZ Rep #:[id number] : 1955 69 From: Slim Weiss DO PCP: Dr. Gasper Nelson DO Status:AD M IN 03/03/2025 Gasper Nelson Re : Upper GI endoscopy procedure for Ashley Gómez Dear [place] This procedure was performed on Monday, March 03, 2025. 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 Biopsied. - Hiatal hernia. - No gross lesions in the entire stomach. - No gross lesions in the entire examined duodenum. Recommendations : - [facility]. - Resume previous diet. - Continue present medications. - Await pathology results. My findings are described in the full procedure note, which is enclosed. If I can be of further assistance, please feel free to contact me at . Sincerely, Slim Weiss DO 03/03/2025 2:03:52 PM This report has been signed electronically. 03/03/25 1404 Date _ Slim Weiss DO Cosigner Signature: Date (if indicated) CC: Dr. Tonja Jo MD; Dr. Gasper Nelson DO; Dr. Bunny Avilez DO ~ Date Dictated: 03/03/25 1355 Date Transcribed: Department Editor: RF Signed [facility]06-30-2025 Consult note [facility] Medical Records Department [address] [place] [address] Pre-Anesthesia Evaluation 03/03/25 1332 MR#: [id number] Acct: [id number] Name: ASHLEY GÓMEZ Rep #:[id number] : 1955 69 From: David Valadez MD PCP: Dr. Gasper Nelson DO Status:AD M IN Y Race: C Location: [place] [address] ASA Classification* ASA Classification ASA Classification: 3 Assessment & Plan Anesthesia* Anesthesia Assessment Anesthesia Assessment: Discussed sedation and/or anesthesia options, risks, benefits, and alternatives with patient/parents/legal guardian/POA. Questions invited. The patient/parents/legal guardian/POA seems to understand and agrees to proceedwith anesthesia plan. Reviewed the physical assessment, medical history, allergy history and patient home medications list prior to surgery/procedure/anesthetic and documented any changes. Performed airway and anesthesia risk assessments. Anesthesia Type Anesthesia Type: MAC History Source History Obtained from:: Patient and Chart Anesthesia Focused Assessment* Temperature: 97.9 F Pulse Rate: 86 Blood Pressure: 158/73 Respiratory Rate: 17 Pulse Ox: 97 Oxygen Delivery Method: Nasal Cannula Oxygen Flow Rate (L/min): 2 Airway Assessment Mouth opens: >3 cm Mallampati Score: II Teeth Condition: Dentures (Patient has full upper and lower dentures which are out.) Neck Range of motion (ROM): Full ROM Labs Anesthesia Preop lab: CBC WBC 16.1 K/mm3 (4.4-11.0) H 03/03/25 05:15 5 RBC 4.82 M/mm3 (4.2-5.4) 03/03/25 05:15 03/03/25 Hgb 14.6 g/dL (12.0-15.0) 03/03/25 05:15 03/03/25 Hct 43.2 % (37-47) 03/03/25 05:15 03/03/25 Plt Count 265 K/mm3 (150-450) 03/03/25 05:15 03/03/25 CHEMISTRY Potassium 3.5 mmol/L (3.3-5.1) 03/03/25 05:15 03/03/25 Sodium 141 mmol/L (133-145) 03/03/25 05:15 03/03/25 Magnesium 2.0 mg/dL (1.5-2.2) 03/03/25 03:23 03/03/25 Phosphorus 1.4 mg/dL (2.5-4.9) L 11/26/12 07:42 11/26/12 BUN 34 mg/dL (4-19) H 03/03/25 05:15 03/03/25 Creatinine 0.95 mg/dL (0.70-1.20) 03/03/25 05:15 03/03/25 Glucose 144 mg/dL (70-99) H 03/03/25 05:15 03/03/25 POC Glucose 245 mg/dL (70-110) H 10/16/13 12:24 10/16/13 TSH 3.43 uIU/mL (0.358-3.74) 10/16/13 19:28 COAG PT 13.7 SECONDS (11.9-14.4) 09/30/13 20:09 Pre-Assessment Diagnosis/Proposed Procedure Planned Operative Procedure(s): Esophagogastroduodenoscopy. Anesthesia History Anesthesia History - hospital coordinator: Anesthesia History - hospital coordinator Hx Hospitalization No 04/26/24 14:43 Any Problems With Anesthesia No 03/03/25 12:10 Cholinesterase deficiency No 04/26/24 14:43 You/Your Family Experience No 03/03/25 12:10 fever (hyperthermia) with Relationship Recent Exposure to Contagious No 03/03/25 12:10 Disease Does patient have nerve No 03/03/25 12:10 stimulator Patient instructed to have device shut off --Does patient have Pacemaker or ICD? When Was Last Pacemaker Check QUESTION #4 FULL TEXT: You/Your Family Experience fever (hyperthermia) with Anesthesia Last Oral Intake Last Oral intake: Last Oral Intake NPO since 00:00 03/03/25 12:10 Meds taken in AM with sips of Yes 03/03/25 12:10 water? Meds patient instructed to take am of surgery Any additional information?: Yes Meds taken in AM with sips of water?: Yes PONV PONV - hospital coordinator: PONV - hospital coordinator Female HX of Motion Sickness HX of N/V After Surgery Non-Smoker Duration of Surgery greater than 60 minutes Number of Risk Factors PONV Score Height & Weight Height & Weight: Anesthesia: Height & Weight Height 5 ft 4 in 03/03/25 10:07 Weight: 47.1 kg 03/03/25 10:07 Body Mass Index (BMI) 17.8 03/03/25 12:10 Respiratory Assessment Respiratory Assessment - hospital coordinator: Respiratory Tract Infection Hx - hospital coordinator Hx Respiratory Tract Infection No 04/26/24 14:43 STOP Sleep Apnea STOP Sleep Apnea - hospital coordinator: STOP Sleep Apnea - hospital coordinator Hx Hypertension No 03/03/25 04:02 Hx Sleep Apnea No 03/03/25 04:02 CPAP No 04/29/24 09:40 BIPAP No 04/26/24 14:43 Do you snore loudly (louder No 03/03/25 04:02 than talking or can be heard Do you often feel tired/ No 03/03/25 04:02 fatigued/ sleepy during daytime? Has anyone observed you stop No 03/03/25 04:02 breathing during sleep? STOP Results Negative 03/03/25 04:02 QUESTION #5 FULL TEXT : Do you snore loudly (louder than talking or can be heard through closeddoors)? 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 - hospital coordinator: Tobacco Use History - hospital coordinator Tobacco Use Non-smoker 05/07/21 09:04 Smoking Status Current every day smoker 03/03/25 04:02 Hx Tobacco Use Yes 03/03/25 04:02 Years Smoking Packs Smoked per Day Smoking Cessation Date was within the last 15 years Hx Smoking Cessation Date Hx Smoking Cessation No 03/03/25 04:02 Counseling Hematologic Medial History Hematologic Hx - hospital coordinator: Hematologic Medical Hx - cell tuber hand Hx of Blood Transfusion No 03/03/25 04:02 Hx of Transfusion in last 3 No 03/03/25 04:02 Months Date of Last Transfusion (if within last 3 months) Ever experience any problems No 03/03/25 04:02 with transfusion(s)? Specify any problems Hx of Preganancy in last 3 No 03/03/25 04:02 Months Nurse Filling Out Transfusion AREAD 03/03/25 04:02 & Questions: Date: 03/03/25 03/03/25 04:02 Time: 04:26 03/03/25 04:02 Patient unable to answer at this time (ie. confused, unrespo /Reproduction History /Reproductive History - hospital coordinator: /Reproductive Hx- hospital coordinator Hx Now No 03/03/25 12:10 Gestational Age (in weeks): EDC: Hx Hx Para Hx Section SAB No 03/03/25 12:10 Active Medications Active Medications: Current Medications Generic Name Dose Route Start Last Admin Trade Name Freq PRN Reason Stop Dose Admin Acetaminophen 650 mg 03/03/25 04:02 03/03/25 05:32 Acetaminophen 325 Mg Tablet PO 650 mg Q4H PRN PRN Administration Fever, pain 1-06/13 Al Hydroxide/Mg Hydroxide 30 ml 03/03/25 04:02 Mag Hydrox/Al Hydrox/Simeth 30 Ml Udc PO Q6H PRN PRN Gastric Burning Albuterol Sulfate 2.5 mg 03/03/25 04:02 Albuterol 2.5 Mg/3 Ml Vial.Neb. INHALATION Q2H PRN PRN Dyspnea, wheezing Albuterol/Ipratropium 3 ml 03/03/25 04:02 03/03/25 10:51 Ipratropium/Albuterol Sulfate 3 Ml Ampul.Neb INHALATION 3 ml Q4HWA.RT STEVE Administration Atorvastatin Calcium 20 mg 03/03/25 22:00 Atorvastatin Calcium 20 Mg Tablet PO QHS STEVE Guaifenesin 20 ml 03/03/25 04:02 Guaifenesin 10 Ml Udc (200mg/10ml) PO Q4H PRN PRN COUGH Hydralazine HCl 10 mg 03/03/25 04:02 Hydralazine 20 Mg/Ml Vial IV Q4H PRN PRN SBP > 160 Protocol Sodium Chloride 1,000 mls @ 100 mls/hr 03/03/25 04:02 03/03/25 04:31 IV 03/03/25 14:01 100 mls/hr .Q10H STEVE Administration Pantoprazole Sodium 40 mg/ 100 mls @ 330 mls/hr 03/03/25 10:00 03/03/25 09:50 Sodium Chloride IV Infused Q12 STEVE Infusion Sodium Chloride 250 mls @ 15 mls/hr 03/03/25 04:03 IV .[id number] PRN Saline Flush Sodium Chloride 250 mls @ 15 mls/hr 03/03/25 04:03 IV .[id number] PRN Additional IVPB Infusion Lactated Ringer's 1,000 mls @ 15 mls/hr 03/03/25 13:15 03/03/25 13:07 IV 15 mls/hr .Q48H STEVE Administration Melatonin 3 mg 03/03/25 04:02 Melatonin 3 Mg Tablet PO QHS PRN PRN INSOMNIA Nystatin 500,000 unit 03/03/25 04:05 03/03/25 09:28 Nystatin 500,000 Unit/5 Ml Udc PO 500,000 unit 4X/DAY STEVE Administration Ondansetron HCl 4 mg 06/30/25 04:02 03/03/25 04:41 Ondansetron 4 Mg/2 Ml Vial IV 4 mg Q8H PRN PRN Administration NAUSEA/VOMITING Prochlorperazine Edisylate 5 mg 03/03/25 04:02 03/03/25 07:40 Prochlorperazine 10 Mg/2 Ml Vial IV 5 mg Q4H PRN PRN Administration Breakthrough Nausea/Vomiting Sodium Chloride 10 - 40 ml 03/03/25 04:03 0.9% Saline Lock 10 Ml Syringe IV UD PRN SALINE FLUSH Venlafaxine HCl 150 mg 03/03/25 10:00 03/03/25 09:28 Venlafaxine Xr 150 Mg Capsule PO 150 mg DAILY STEVE Administration PFSH Medical History Hypokalemia Smoker Hypoxia COPD exacerbation Wears dentures Wears glasses Post-menopausal Depression Arthritis [...] 80 mg tablet 40 mg PO QHS depression 03/0402/13/25 History venlafaxine 150 mg 150 mg PO DAILY depression 0 03/20/24 02/15/25 History capsule,extended release 24 hr albuterol sulfate 90 mcg/actuation 2 inh inhalation Q4 H PRN shortness 02/15/25 Unknown History breath activated powder inhaler of breath or wheezing trazodone 50 mg tablet 150 mg (3 x 50 mg) PO QHS #1 5 tabs 02/17/25 Unknown Rx albuterol sulfate 90 mcg/actuation inhalation 03/03/25 Unknown History aerosol inhaler prednisone 20 mg tablet 20 mg PO BID 03/03/25 Unknow n History Allergy/AdvReac Type Severity Reaction Status Date / Time Sulfa (Sulfonamide Allergy Hives Verified 03/02/25 23:34 Antibiotics) Family History Mother Pancreatic cancer Father COPD (chronic obstructive pulmonary disease) Brother Colon cancer Heart disease Sister Stomach cancer Brother Leukemia Surgical History History of tonsillectomy and adenoidectomy Hx of cholecystectomy Hx of appendectomy Hx of colonoscopy Social History household members: none current occupational status: employed 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 03/03/25 1338 airn CHISHOLM> Date _ David Valadez MD Cosigner Signature: Date CC: ~ Signed [facility]06-30-2025 Progress note [facility] Medical Records Department [address] [place] [id number] Progress Note 03/03/25 1223 MR#: [id number] Acct: [id number] Name: ASHLEY GÓMEZ Rep #:[id number] : 1955 69 From: Slim Friend DO PCP: Dr. Gasper Nelson DO Status:AD M IN Location: [place] [address] Progress Note 69-year-old with multiple medical problems who was recently discharged from [facility] for COPD exacerbation. She presented to the [facility] ED on 03/03/2025 with history of approximately 72 hours of onset of malaise, fatigue with nausea and emesis. She does report that at the OSH she was going to have an upper endoscopy. However she never ended up having the upper endoscopy. WBC 22.9, hemoglobin 15.9, platelet 281 with left shift, D-dimer 0.53, CMP withchloride 97, anion gap 17, BUN/creatinine 39/1.09, GFR 59, glucose 154, lactic acid 2.4, AST/ALT 40/40 chest x-ray with no acute cardiopulmonary findings CT chest/abdomen/pelvis right lung scarring/atelectasis with slight dependent atelectasis with no otherwise acute intra-abdominal or cardiopulmonary findings EKG with SR with no acute evidence of ischemia, Physical Exam Const alert, oriented x3, no apparent distress and healthy appearing General Appearance: cooperative GI normal to inspection, nondistended, normoactive bowel sounds, soft to palpation,non-tender and non-distended Percussion: normal to percussion Rectal Exam: deferred Assessment & Plan Assessment/Plan (1) Intractable nausea and vomiting: (2) Hematemesis: PLAN: 69-year-old with COPD, history of non-ST segment elevation MA who presentswith multiple episodes of hematemesis. Differential diagnosis does include Marcela-Arriola tear, or esophagitis, peptic ulcer disease and less likely neoplasia. She should undergo an upper endoscopy evaluate upper GI tract. She was explained alternatives, risk, benefits include not withstanding bleeding, infection, sepsis, perforation, need for emergent . She will have an ASA of 3. Visit Charges Inpatient E&M: 90706 [facility] Hosp 03/03/25 1227 Slim Friend DO Cosigner Signature (if applicable): CC: ~ Signed [facility]06-30-2025 Discharge summary Author Abdulkadir Peralta [facility] Note Date/Time March 03, 2025 7:01 am [facility] Medical Records Department [address] [place] [address] Emergency Department Summary 03/02/25 MR#: [id number] Acct: [id number] Name: ASHLEY GÓMEZ Rep #:[id number] : 1955 69 From: Abdulkadir Peralta DO PCP: Dr. Gasper Nelson, Status:AD M IN Location: [address] History of Present Illness Chief Complaint: Chest Pain Detail of Chief Complaint: Chest pain and not feeling well Informant: patient Narrative Narrative: Patient presents to the emergency department via EMS with multiple complaints. She states that she was recently in [place] 2 days ago when she started getting sick with vomiting and was admitted to the hospital there. Apparently she signed out AGAINST MEDICAL ADVICE because she wanted to come up here. Patient states that she was vomiting blood and they were going to do a scope at some point. She complains of some chest discomfort this evening that is now resolved. She complains of shortness of breath. She has history of COPD and does not normally wear home O2. She denies any diarrhea. [facility] Medical History Hypokalemia Smoker Hypoxia COPD exacerbation Wears dentures Wears glasses Post-menopausal Depression Arthritis [...] activated powder inhaler of breath or wheezing prednisone 20 mg tablet 20 mg PO BID #10 tabs Unknown Rx trazodone 50 mg tablet 150 mg (3 x 50 mg) PO QHS #1 5 tabs 02/17/25 Unknown Rx albuterol sulfate 90 mcg/actuation inhalation 03/03/25 Unknown History aerosol inhaler Allergy/AdvReac Type Severity Reaction Status Date / Time Sulfa (Sulfonamide Allergy Hives Verified 03/02/25 23:34 Antibiotics) Family History Mother Pancreatic cancer Father [...] type: does not use ROS ROS ED Review of Systems ROS Unobtainable: other Constitutional Constitutional ED: Reports lethargy; Denies chills, fever(s), sweats or weight loss Eyes Eyes: Denies blurry vision, change in vision or diplopia ENT ENT ED: Denies rhinorrhea or sore throat Cardiovascular Cardiovascular: Reports chest pain; Denies orthopnea or racing heartbeat Respiratory/Chest Respiratory/Chest: Reports dyspnea and dyspnea on exertion; Denies cough, orthopnea or sputum Gastrointestinal Gastrointestinal: Reports nausea and vomiting; Denies abdominal pain or diarrhea Genitourinary Genitourinary ED: Denies dysuria, hematuria or urinary frequency Musculoskeletal Musculoskeletal: Denies arthralgias, back pain, myalgias or neck pain Integumentary Denies abscess, Abrasions or rash Neurologic Neurologic: Denies headache(s) or weakness Psychiatric Psychiatric: Denies anxiety, depression or suicidal thoughts Endocrine Endocrinology: Denies polydipsia, polyphagia or polyuria Hematologic/Lymphatic Hematologic/Lymphatic: Denies easy bleeding, easy bruising or lymphadenopathy Allergic/Immunologic Allergic/Immunologic ED: Denies mouth swelling, tongue swelling or urticaria EXAM Physical Exam Const Vital Signs: 03/02/25 23:34 03/02/25 23:53 03/03/25 00:28 Temperature 97 F L Temperature Source Temporal Pulse Rate 95 82 Respiratory Rate 36 H 25 H Respiratory Effort Short of Breath Respiratory Pattern Blood Pressure 135/87 H 151/98 H Blood Pressure Mean 103 115 Pulse Ox 87 93 Oxygen Delivery Method Room Air Nasal Cannula Oxygen Flow Rate (L/min) 03/03/25 00:37 03/03/25 01:00 03/03/25 02:00 Temperature Temperature Source Pulse Rate 79 89 86 Respiratory Rate 21 H 25 H 18 Respiratory Effort Respiratory Pattern Tachypnea Blood Pressure 163/97 H 159/80 H Blood Pressure Mean 119 106 Pulse Ox 95 92 Oxygen Delivery Method Nasal Cannula Nasal Cannula Oxygen Flow Rate (L/min) 2 2.5 03/03/25 03:00 Temperature Temperature Source Pulse Rate 91 Respiratory Rate 16 Respiratory Effort Respiratory Pattern Blood Pressure 165/86 H Blood Pressure Mean 112 Pulse Ox 99 Oxygen Delivery Method Nasal Cannula Oxygen Flow Rate (L/min) Positive well nourished and well developed General Appearance ED: well developed and NAD HEENT Reports TM's clear and moist mucous membranes normocephalic and atraumatic; Negative for trauma or tenderness Tympanic Membrane ED: Yes TM's clear Eyes PERRL and EOMs intact bilaterally General Eye ED: Negative for pale conjunctiva or scleral icterus Neck no lymphadenopathy, supple and no JVD General: Negative for tenderness Chest Wall inspection of chest normal and palpation of chest normal Chest: Negative for tenderness Resp No normal respiratory effort and No clear to auscultation bilaterally Resp Narrative: Some pain expiratory wheezes bilaterally. Mild tachypnea. No accessory muscle use or retractions Effort and Inspection: Negative for respiratory distress or pain with movement Auscultation: wheezes; Negative for rhonchi or diminished lung sounds Cardio regular rate, regular rhythm, S1 normal heart sound, S2 normal heart sound and no murmurs Peripheral Pulses: pulses 2+ throughout GI normal to inspection, nondistended, normoactive bowel sounds, soft to palpation,non-distended and no masses GI Narrative: Mild tenderness palpation the epigastric region. There is no rebound, rigidity,or peritoneal signs Back/Spine no CVA tenderness and no thoracic nor lumbar tenderness Extremity normal to inspection General Extremety ED: Negative for edema General Extremity: Negative for edema Neuro oriented x3, CN's II-XII intact bilaterally, no sensory deficits noted and gait normal Sensorium / Orientation: awake, alert, oriented to person, oriented to place andoriented to time Motor Exam: strength 5/5 throughout and strength abnormal Psych mental status grossly normal Skin no rashes or lesions noted and no wounds MDM MDM MDM Narrative Medical decision making narrative: Patient presents with complaint of chest pain and shortness of breath after being hospitalized in a hospital in [place]. She presents with vomiting as well which started several days ago. IV line established. EKG obtained on arrival shows sinus rhythm with ventricular rate of [address] changes. CBC with differential showed an elevated white count of 22.9 with hemoglobin 15.9 and platelet count of 281. Chemistries unremarkable. D-dimer was 0.53 and normal when corrected for age. Lactate was 2.4. Troponin [id number]. LFTs showed an AST of 40 with an ALT of 40 and alk phos of 78. Lipase was normal at 18. Initial chest x-ray obtained showed no acute disease process. CTscan of the chest and abdomen pelvis with IV contrast essentially unremarkable but did show some gastroesophageal reflux and right lung band atelectasis. Patient was medicated with morphine and Zofran initially. She was ordered Protonix. Patient was hypoxic initially and was placed on nasal cannula O2. Will discuss case with hospitalist to evaluate for admission given the elevated troponin and persistent nausea. It was decided that given her recent history ofhematemesis and ongoing nausea and vomiting that we would hold off on anticoagulation at this time and we will monitor troponins. Lab Data Attestation: I reviewed the patient's lab results. Labs: Laboratory Results - last 24 hr 03/03/25 03/03/25 01:00 01:15 WBC 22.9 H RBC 5.21 Hgb 15.9 H Hct 46.5 MCV 89.3 MCH 30.5 MCHC 34.2 RDW Std Deviation 43.3 RDW Coeff of Tr 13.3 Plt Count 281 MPV 10.1 Immature Gran % (Auto) 0.400 Neut % (Auto) 82.4 H Lymph % (Auto) 11.1 L [place] % (Auto) 5.4 Eos % (Auto) 0.3 Baso % (Auto) 0.4 Absolute Neuts (auto) 18.9 H Absolute Lymphs (auto) 2.54 Nucleated RBC % 0 D-Dimer Quant (PE/DVT) 0.53 H* Sodium 138 Potassium 3.4 Chloride 97 L Carbon Dioxide 24.4 Anion Gap 17 H BUN 36 H Creatinine 1.09 Estim Creat Clear Calc 37.91 L Est GFR (MDRD) Non-Af 55 L BUN/Creatinine Ratio 33.1 H Glucose 154 H Lactic Acid 2.4 H* Calcium 10.5 Total Bilirubin 0.78 AST 40 H ALT 40 H Alkaline Phosphatase 78 Troponin T High Sens 91 H* Total Protein 7.0 Albumin 4.4 Globulin 2.7 Albumin/Globulin Ratio 1.6 Lipase 18 Radiography Diagnostic Testing: Clinical Impression(s) from Imaging Studies Chest X-Ray 03/02/25 23:59 IMPRESSION: No acute chest findings Reading Location: [facility] Chest/Abdomen/Pelvis CT 03/03/25 01:31 IMPRESSION: Right lung band atelectasis. Esophageal reflux. Reading Location: [place] [address] Discharge Plan Dx/Rx/DC Orders Clinical Impression: Non-ST elevated myocardial infarction, Intractable nausea and vomiting, Hypoxemia, History of COPD Disposition Disposition: Acute Care Hospital [facility] What to do if you have Problems For any increased pain, shortness of breath, bleeding, nausea or vomiting, chestpain, or any unexpected problems, contact your Primary Care Provider. Call [facility] ([phone]) or report to the closest Emergency Room. Call 911 if necessary. 03/03/25 0701 <Electronically signed by Abdulkadir Peralta DO> Cosigner Signature (if applicable): CC: Dr. Gasper Nelson DO ~ Signed [facility] Work Phone: [phone] Discharge summary [facility] Medical Records Department [address] [place] [id number] Emergency Department Summary 03/02/25 MR#: [id number] Acct: [id number] Name: ASHLEY GÓMEZ Rep #:[id number] : 1955 69 From: Abdulkadir Peralta DO PCP: Dr. Gasper Nelson DO Status:AD M IN Location: [address] History of Present Illness Chief Complaint: Chest Pain Detail of Chief Complaint: Chest pain and not feeling well Informant: patient Narrative Narrative: Patient presents to the emergency department via EMS with multiple complaints. She states that she was recently in [place] 2 days ago when she started getting sick with vomiting and was admitted to the hospital there. Apparently she signed out AGAINST MED[facility] because she wanted to comeup here. Patient states that she was vomiting blood and they were going to do a scope at some point. She complains of some chest discomfort this evening that is now resolved. She complains of shortness of breath. She has history of COPD and does not normally wear home O2. She denies any diarrhea. [facility] Medical History Hypokalemia Smoker Hypoxia COPD exacerbation Wears dentures Wears glasses Post-menopausal Depression Arthritis [...] activated powder inhaler of breath or wheezing prednisone 20 mg tablet 20 mg PO BID #10 tabs Unknown Rx trazodone 50 mg tablet 150 mg (3 x 50 mg) PO QHS #1 5 tabs 02/17/25 Unknown Rx albuterol sulfate 90 mcg/actuation inhalation 03/03/25 Unknown History aerosol inhaler Allergy/AdvReac Type Severity Reaction Status Date / Time Sulfa (Sulfonamide Allergy Hives Verified 03/02/25 23:34 Antibiotics) Family History Mother Pancreatic cancer Father COPD (chronic obstructive pulmonary disease) Brother Colon cancer Heart disease Sister Stomach cancer Brother Leukemia Surgical History History of tonsillectomy and adenoidectomy Hx of cholecystectomy Hx of appendectomy Hx of colonoscopy Social History household members: none current occupational status: employed current occupation: [employer] Smoking Status: Current every day smoker tobacco type: cigarettes Tobacco: How many years used: 4 alcohol intake: former substance use type: does not use ROS ROS ED Review of Systems ROS Unobtainable: other Constitutional Constitutional ED: Reports lethargy; Denies chills, fever(s), sweats or weight loss Eyes Eyes: Denies blurry vision, change in vision or diplopia ENT ENT ED: Denies rhinorrhea or sore throat Cardiovascular Cardiovascular: Reports chest pain; Denies orthopnea or racing heartbeat Respiratory/Chest Respiratory/Chest: Reports dyspnea and dyspnea on exertion; Denies cough, orthopnea or sputum Gastrointestinal Gastrointestinal: Reports nausea and vomiting; Denies abdominal pain or diarrhea Genitourinary Genitourinary ED: Denies dysuria, hematuria or urinary frequency Musculoskeletal Musculoskeletal: Denies arthralgias, back pain, myalgias or neck pain Integumentary Denies abscess, Abrasions or rash Neurologic Neurologic: Denies headache(s) or weakness Psychiatric Psychiatric: Denies anxiety, depression or suicidal thoughts Endocrine Endocrinology: Denies polydipsia, polyphagia or polyuria Hematologic/Lymphatic Hematologic/Lymphatic: Denies easy bleeding, easy bruising or lymphadenopathy Allergic/Immunologic Allergic/Immunologic ED: Denies mouth swelling, tongue swelling or urticaria EXAM Physical Exam Const Vital Signs: 03/02/25 23:34 03/02/25 23:53 03/03/25 00:28 Temperature 97 F L Temperature Source Temporal Pulse Rate 95 82 Respiratory Rate 36 H 25 H Respiratory Effort Short of Breath Respiratory Pattern Blood Pressure 135/87 H 151/98 H Blood Pressure Mean 103 115 Pulse Ox 87 93 Oxygen Delivery Method Room Air Nasal Cannula Oxygen Flow Rate (L/min) 03/03/25 00:37 03/03/25 01:00 03/03/25 02:00 Temperature Temperature Source Pulse Rate 79 89 86 Respiratory Rate 21 H 25 H 18 Respiratory Effort Respiratory Pattern Tachypnea Blood Pressure 163/97 H 159/80 H Blood Pressure Mean 119 106 Pulse Ox 95 92 Oxygen Delivery Method Nasal Cannula Nasal Cannula Oxygen Flow Rate (L/min) 2 2.5 03/03/25 03:00 Temperature Temperature Source Pulse Rate 91 Respiratory Rate 16 Respiratory Effort Respiratory Pattern Blood Pressure 165/86 H Blood Pressure Mean 112 Pulse Ox 99 Oxygen Delivery Method Nasal Cannula Oxygen Flow Rate (L/min) Positive well nourished and well developed General Appearance ED: well developed and NAD HEENT Reports TM's clear and moist mucous membranes normocephalic and atraumatic; Negative for trauma or tenderness Tympanic Membrane ED: Yes TM's clear Eyes PERRL and EOMs intact bilaterally General Eye ED: Negative for pale conjunctiva or scleral icterus Neck no lymphadenopathy, supple and no JVD General: Negative for tenderness Chest Wall inspection of chest normal and palpation of chest normal Chest: Negative for tenderness Resp No normal respiratory effort and No clear to auscultation bilaterally Resp Narrative: Some pain expiratory wheezes bilaterally. Mild tachypnea. No accessory muscle use or retractions Effort and Inspection: Negative for respiratory distress or pain with movement Auscultation: wheezes; Negative for rhonchi or diminished lung sounds Cardio regular rate, regular rhythm, S1 normal heart sound, S2 normal heart sound and no murmurs Peripheral Pulses: pulses 2+ throughout GI normal to inspection, nondistended, normoactive bowel sounds, soft to palpation,non-distended and no masses GI Narrative: Mild tenderness palpation the epigastric region. There is no rebound, rigidity,or peritoneal signs Back/Spine no CVA tenderness and no thoracic nor lumbar tenderness Extremity normal to inspection General Extremety ED: Negative for edema General Extremity: Negative for edema Neuro oriented x3, CN's II-XII intact bilaterally, no sensory deficits noted and gait normal Sensorium / Orientation: awake, alert, oriented to person, oriented to place andoriented to time Motor Exam: strength 5/5 throughout and strength abnormal Psych mental status grossly normal Skin no rashes or lesions noted and no wounds MDM MDM MDM Narrative Medical decision making narrative: Patient presents with complaint of chest pain and shortness of breath after being hospitalized in [facility] in [place]. She presents with vomiting as well which started several days ago. IV line established. EKG obtained on arrival shows sinus rhythm with ventricular rate of [address] changes. CBC with differential showed an elevated white count of 22.9 with hemoglobin 15.9 and platelet count of 281. Chemistries unremarkable. D-dimer was 0.53 and normal when corrected for age. Lactate was 2.4. Troponin [id number]. LFTs showed an AST of 40 with an ALT of 40 and alk phosof 78. Lipase was normal at 18. Initial chest x-ray obtained showed no acute disease process. CTscan of the chest and abdomen pelvis with IV contrast essentially unremarkable but did show some gastroesophageal reflux and right lung band atelectasis. Patient was medicated with morphine and Zofran initially. She was ordered Protonix. Patient was hypoxic initially and was placed on nasal cannula O2.Will discuss case with hospitalist to evaluate for admission given the elevated troponin and persistent nausea. It was decided that given her recent history ofhematemesis and ongoing nausea and vomiting that we would hold off on anticoagulation at this time and we will monitor troponins. Lab Data Attestation: I reviewed the patient's lab results. Labs: Laboratory Results - last 24 hr 03/03/25 03/03/25 01:00 01:15 WBC 22.9 H RBC 5.21 Hgb 15.9 H Hct 46.5 MCV 89.3 MCH 30.5 MCHC 34.2 RDW Std Deviation 43.3 RDW Coeff of Tr 13.3 Plt Count 281 MPV 10.1 Immature Gran % (Auto) 0.400 Neut % (Auto) 82.4 H Lymph % (Auto) 11.1 L [place] % (Auto) 5.4 Eos % (Auto) 0.3 Baso % (Auto) 0.4 Absolute Neuts (auto) 18.9 H Absolute Lymphs (auto) 2.54 Nucleated RBC % 0 D-Dimer Quant (PE/DVT) 0.53 H* Sodium 138 Potassium 3.4 Chloride 97 L Carbon Dioxide 24.4 Anion Gap 17 H BUN 36 H Creatinine 1.09 Estim Creat Clear Calc 37.91 L Est GFR (MDRD) Non-Af 55 L BUN/Creatinine Ratio 33.1 H Glucose 154 H Lactic Acid 2.4 H* Calcium 10.5 Total Bilirubin 0.78 AST 40 H ALT 40 H Alkaline Phosphatase 78 Troponin T High Sens 91 H* Total Protein 7.0 Albumin 4.4 Globulin 2.7 Albumin/Globulin Ratio 1.6 Lipase 18 Radiography Diagnostic Testing: Clinical Impression(s) from Imaging Studies Chest X-Ray 03/02/25 23:59 IMPRESSION: No acute chest findings Reading Location: [facility] Chest/Abdomen/Pelvis CT 03/03/25 01:31 IMPRESSION: Right lung band atelectasis. Esophageal reflux. Reading Location: [facility] Discharge Plan Dx/Rx/DC Orders Clinical Impression: Non-ST elevated myocardial infarction, Intractable nausea and vomiting, Hypoxemia, History of COPD Disposition Disposition: Acute Care Hospital [facility] What to do if you have Problems For any increased pain, shortness of breath, bleeding, nausea or vomiting, chestpain, or any unexpected problems, contact your Primary Care Provider. Call [facility] ([phone]) or report tothe closest Emergency Room. Call 911 if necessary. 03/03/25 0701 Cosigner Signature (if applicable): CC: Dr. Gasper Nelson, DO ~ Signed [facility]06-30-2025 History and physical note Author Tonja Jo [facility] Note Date/Time March 03, 2025 4:05 am [facility] Medical Records Department [address] [place] [address] H&P Exam - Hospitalist 03/03/25 0313 MR#: [id number] Acct: [id number] Name: ASHLEY GÓMEZ Rep #:[id number] : 1955 69 From: Tonja Jo MD PCP: Dr. Gasper Nelson, DO Status:AD M IN Location: [place] [id number] HPI - General General Date of Admission: 03/03/25 Date of Service: 03/03/25 Chief Complaint: N/V, hematemesis, chest pain, dyspnea. HPI Narrative The patient is a 69 y/o F w/ PMHx: COPD, Tobacco use, Anxiety and Depression, GERD, Chronic normocytic anemia, HLD, GERD, recently noted discharge 02/17/2025 following evaluation and treatment for acute hypoxia secondary to acute COPD exacerbation discharged on prednisone therapy of note who presents to the [facility] ED on 03/03/2025 with history of approximately 72 hours of onset of malaise, fatigue with nausea and emesis reportedly hospitalized in [place] however she left AMA to return to [facility] reporting that she has been having hematemesis and now onset of chest discomfortand dyspnea prompting ED evaluation. She does report that at the OSH she was going to have an upper endoscopy. She notes the chest discomfort is lower sternal, aching/tightness with dyspnea associated however she is not currently having the symptoms and notes it lasted approximately half an hour previous to ED arrival and rated it at potentially 6-7 out of 10 in severity when it occurred. Workup in the ED included T97, heart 95, BP 135/87, respiratory rate 36, initially 87% on room air with improvement initially to 95% on 2 L nasal cannula with most recent repeat vitals heart rate 86, BP 159/80, respiratory rate 18, 92% on 2.5 L nasal cannula, CBC with WBC 22.9, hemoglobin 15.9, platelet 281 with left shift, D-dimer 0.53, CMP with chloride 97, anion gap 17, BUN/creatinine 39/1.09, GFR 59, glucose 154, lactic acid 2.4, AST/ALT 40/40, initial troponin 91, chest x-ray with no acute cardiopulmonary findings, CT chest/abdomen/pelvis right lung scarring/atelectasis with slight dependent atelectasis with no otherwise acute intra-abdominal or cardiopulmonary findings,EKG with SR with no acute evidence of ischemia, UA pending upon evaluation of patient. In the ED patient ministered maintenance IV fluids in addition to 1 L normal saline bolus, aspirin 162 mg p.o. x 1, DuoNeb therapy, morphine 4 mg IV x1, Zofran 4 mg IV x 1, promethazine 12.5 mg IM x 1. [facility] Medical History Hypokalemia Smoker Hypoxia COPD exacerbation Wears dentures Wears glasses Post-menopausal Depression Arthritis [...] activated powder inhaler of breath or wheezing prednisone 20 mg tablet 20 mg PO BID #10 tabs Unknown Rx trazodone 50 mg tablet 150 mg (3 x 50 mg) PO QHS #1 5 tabs 02/17/25 Unknown Rx albuterol sulfate 90 mcg/actuation inhalation 03/03/25 Unknown History aerosol inhaler Allergy/AdvReac Type Severity Reaction Status Date / Time Sulfa (Sulfonamide Allergy Hives Verified 03/02/25 23:34 Antibiotics) Family History Mother Pancreatic cancer Father COPD (chronic obstructive pulmonary disease) Brother Colon cancer Heart disease Sister Stomach cancer Brother Leukemia Surgical History History of tonsillectomy and adenoidectomy Hx of cholecystectomy Hx of appendectomy Hx of colonoscopy Social History household members: none current occupational status: employed 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 HEENT: Eyes: No visual loss, blurred vision, double vision or yellow sclerae. Ears, Nose, Throat: No hearing loss, sneezing, congestion, runny nose or sore throat. SKIN: No rash or itching, lesions, wounds. CARDIOVASCULAR: + Chest pain. No palpitations, edema, orthopnea, syncopal events. RESPIRATORY: + Dyspnea. No marked cough or sputum, wheezing, hemoptysis. GASTROINTESTINAL: + anorexia, nausea, vomiting, hematemesis. No diarrhea, abdominal pain, melena. GENITOURINARY: No dysuria, frequency, urgency or retention. NEUROLOGICAL: No headache, dizziness, syncope, paralysis, ataxia, numbness or tingling in the extremities, focal weakness, change in bowel or bladder control,seizure. MUSCULOSKELETAL: + muscle, back pain, joint pain or stiffness. HEMATOLOGIC: + Chronic anemia, reported as noted active hematemesis, easy bleeding/bruising. LYMPHATICS: No enlarged nodes. No history of splenectomy. PSYCHIATRIC: + History of anxiety and depression. ENDOCRINOLOGIC: No reports of sweating, cold or heat intolerance. No polyuria orpolydipsia. ALLERGIES: No history of asthma, hives, eczema or rhinitis. Vital Signs Vital Signs Vital Signs: 03/02/25 23:34 03/02/25 23:53 03/03/25 00:28 Temperature 97 F L Temperature Source Temporal Pulse Rate 95 82 Respiratory Rate 36 H 25 H Respiratory Effort Short of Breath Respiratory Pattern Blood Pressure 135/87 H 151/98 H Blood Pressure Mean 103 115 Pulse Ox 87 93 Oxygen Delivery Method Room Air Nasal Cannula Oxygen Flow Rate (L/min) 03/03/25 00:37 03/03/25 01:00 03/03/25 02:00 Temperature Temperature Source Pulse Rate 79 89 86 Respiratory Rate 21 H 25 H 18 Respiratory Effort Respiratory Pattern Tachypnea Blood Pressure 163/97 H 159/80 H Blood Pressure Mean 119 106 Pulse Ox 95 92 Oxygen Delivery Method Nasal Cannula Nasal Cannula Oxygen Flow Rate (L/min) 2 2.5 03/03/25 03:00 Temperature Temperature Source Pulse Rate 91 Respiratory Rate 16 Respiratory Effort Respiratory Pattern Blood Pressure 165/86 H Blood Pressure Mean 112 Pulse Ox 99 Oxygen Delivery Method Nasal Cannula Oxygen Flow Rate (L/min) Weight Weight: 110 lb 3.698 oz Body Mass Index (BMI) 18.9 Physical Exam Narrative Physical Examination: General: Awakens to stimuli, fatigued and does fall asleep but able to carry on a conversation when she is awoken, oriented to self, place and recent events, remains cooperative, seated upright in ED bed, fatigued and ill-appearing. Skin: Normal color, normal turgor, no icterus, no cyanosis except occasional stage ecchymoses, abrasions. HEENT: AT/NC, EOMI, PERRLA, dry MM, mild oral thrush evident, no carotid bruits or JVD noted. Lungs: Diminished, greater bases, mildly increased respiratory rate but no distress, occasional end expiratory wheeze but very scant, no rales or rhonchi. Heart: Regular rate and rhythm; no gallop, rub audible. Abdomen: Soft, thin habitus, unable to elicit any tenderness to palpation including the epigastric region, no obvious distention, hyperactive BS, no appreciated HSM. Extremities: No cyanosis, clubbing, or edema. Neurological: Awakens to stimuli, fatigued and does fall asleep but able to carry on a conversation when she is awoken, oriented to self, place and recent events, remains cooperative, seated upright in ED bed, fatigued and ill-appearing, cognitive function aside from fatigued suspect likely intact, pupils equally reactive to light and accommodation, cranial nerves grossly normal, moving all 4 extremities, no focal deficits, strength severely globally decreased secondary to acute presentation. Psychiatric: Affect appears flat, fatigued, no acute evidence of depressive or anxiety feelings but does have underlying history. Results Lab / Micro Data 03/03/25 01:15 03/03/25 01:00 Labs: Laboratory Results - last 24 hr 03/03/25 01:00: D-Dimer Quant (PE/DVT) 0.53 H*, Sodium 138, Potassium 3.4, Chloride 97 L, Carbon Dioxide 24.4, Anion Gap 17 H, BUN 36 H, Creatinine 1.09, Estim Creat Clear Calc 37.91 L, Est GFR (MDRD) Non-Af 55 L, BUN/Creatinine Ratio 33.1 H, Glucose 154 H, Calcium 10.5, Total Bilirubin 0.78, AST 40 H, ALT 40 H, Alkaline Phosphatase 78, Total Protein 7.0, Albumin 4.4, Globulin 2.7, Albumin/Globulin Ratio 1.6, Lipase 18 03/03/25 01:15: WBC 22.9 H, RBC 5.21, Hgb 15.9 H, Hct 46.5, MCV 89.3, MCH 30.5, MCHC 34.2, RDW Std Deviation 43.3, RDW Coeff of Tr 13.3, Plt Count 281, MPV 10.1, Immature Gran % (Auto) 0.400, Neut % (Auto) 82.4 H, Lymph % (Auto) 11.1 L,[place] % (Auto) 5.4, Eos % (Auto) 0.3, Baso % (Auto) 0.4, Absolute Neuts (auto) 18.9 H, Absolute Lymphs (auto) 2.54, Nucleated RBC % 0, Lactic Acid 2.4 H*, Troponin T High Sens 91 H* Imaging Radiology Impression Chest X-Ray 03/02/25 23:59 IMPRESSION: No acute chest findings Reading Location: [facility] Chest/Abdomen/Pelvis CT 03/03/25 01:31 IMPRESSION: Right lung band atelectasis. Esophageal reflux. Reading Location: [facility] Assessment & Plan Assessment/Plan (1) Intractable nausea and vomiting: PLAN: Plan The patient is a 69 y/o F w/ PMHx: COPD, Tobacco use, Anxiety and Depression, GERD, Chronic normocytic anemia, HLD, GERD, recently noted discharge 02/17/2025 following evaluation and treatment for acute hypoxia secondary to acute COPD exacerbation discharged on prednisone therapy of note who presents to the [facility] ED on 03/03/2025 with history of approximately 72 hours of onset of malaise, fatigue with nausea and emesis reportedly hospitalized in [place] however she left AMA to return to [facility] reporting that she has been having hematemesis and now onset of chest discomfortand dyspnea prompting ED evaluation. #1. Patient reported hematemesis with as noted chronic normocytic anemia, currently as noted hemoglobin elevated likely falsely given presentation: Patient w/ hematemesis, will maintain n.p.o. status while investigating, will maintain on judicious IV fluids, will obtain serial H&H's as well as guaiac, maintain NPO status, will maintain on IV PPI and pending further findings if clinical appropriate will request gastroenterology involvement. Will request records from OSH. #2. Acute Hypoxia, unclear exact etiology but given recent bouts of hematemesisquestionable pneumonitis/aspiration but no overt CT findings, compounded by underlying COPD and atelectasis as noted on CT imaging: Will maintain on aspiration precautions given recent bouts of emesis, continue to evaluate as noted #1, will continue supplemental oxygen with wean as tolerated, aggressive I-S, maintain on LR results as noted per chronic COPD plan, procalcitonin requested given significant leukocytosis but could be related with dehydration also. If onset of fever or sniffily elevated procalcitonin low threshold to initiate empiric antibiotic therapy. Respiratory viral panel requested. #3. Lactic acidosis, possibly multifactorial given acute kidney injury/dehydration and hypoxia: Admission lactic acid 2.4, continue IV fluid hydration, supplemental oxygen, continued evaluation #1, will trend LA per facility protocol. #4. Elevated cardiac enzyme of unclear significance likely associate with #1, #2: EKG in ED sinus rhythm with no acute evidence of ischemia with nonspecific changes, CXR w/ no acute cardiopulmonary finding, CT chest/abdomen/pelvis with no acute intra-abdominal or cardiopulmonary findings aside from atelectasis, initial trop 91. Will maintain on a monitored bed to assure no acute myocardial infarction with serial cardiac enzymes and EKGs. Magnesium level requested. FLP in AM. Will defer any aspirin usage or chemoprophylaxis or anticoagulant therapygiven hematemesis report. Echocardiogram requested. If enzymes rise significantly although situation is certainly confounded by above presentation also low threshold to involve cardiology. #5. Acute kidney injury on CKD stage I versus stage II per previous GFR trending: Secondary to acute presentation as noted. Admission BUN/Cr 36/1.09, GFR 55, prior baseline creatinine noted to be primarily 0.6-0.9 maximum however most recently 02/17/2025 creatinine 0.68 will hydrate, hold nephrotoxic medications and repeat chemistry in AM. If no improvement would plan FeNa assessment. #6. Acute mild transaminitis: Hepatic profile with T. bili 0.78, AST and ALT mildly elevated at 40, likely secondary to acute presentation as noted above, continue treatment and repeat CMP in AM. #7. Chronic COPD: Will maintain on oxygen with wean as tolerated to room air given hypoxia as noted above, will maintain on ATC duonebs, PRN albuterol, HOB, IS parameters. #8. Chronic normocytic anemia: Admission hemoglobin reportedly 15.9, MCV 89.3, baseline hemoglobin primarily 11-12 range, most recently 02/15/2025 hemoglobin 13.6 at that time, likely falsely elevated given presentation as noted above, will repeat CBC in AM. #9. Anxiety and depression: Will continue patient home venlafaxine regimen, will temporally hold higher dose nightly trazodone regimen and add back once appropriate. #10. Tobacco Abuse: Encouraged cessation, inpatient consultation per RT, NR if desired. #11. Hyperlipidemia: Will continue patient on statin therapy. #12. GERD: Maintained on IV PPI as noted. #13. DVT prophylaxis: SCDs, hold on any chemoprophylaxis consideration given hematemesis reported. #14. CODE status: Patient does not have healthcare power of collections attorney or living will in place but she notes she would want her cousin Brittany to be her medical decision-maker if it was absolutely necessary. Discussed CODE status at length including difference between FULL code, DNR-CCA and DNR-CC status. Following discussions about the differences in these status, requested Full Code status. Advanced Care Planning Face to Face Time: 16 minutes. Charges/Coding Visit Charges Inpatient E&M: 49076 Init Hosp L3 Procedures Hospitalists Procedures: 36915 Advncd Care Plan 30 Min 03/03/25 8185 <Electronically signed by Tonja Jo MD> Cosigner Signature (if applicable): CC: Dr. Tonja oJ MD; Dr. Gasper Nelson, DO~ Signed [facility] Work Phone: 1(816) 908-959106-30-2025 History and physical note [facility] Medical Records Department [address] [place] [address] H&P Exam - Hospitalist 03/03/25 0313 MR#: [id number] Acct: [id number] Name: ASHLEY GÓMEZ Rep #:[id number] : 1955 69 From: Tonja Jo MD PCP: Dr. Gasper Nelson, Status:AD M IN Location: [facility] [id number] HPI - General General Date of Admission: 03/03/25 Date of Service: 03/03/25 Chief Complaint: N/V, hematemesis, chest pain, dyspnea. HPI Narrative The patient is a 69 y/o F w/ PMHx: COPD, Tobacco use, Anxiety and Depression, GERD, Chronic normocytic anemia, HLD, GERD, recently noted discharge 02/17/2025 following evaluation and treatment for acute hypoxia secondary to acute COPD exacerbation discharged on prednisone therapy of note who presents to the [facility] ED on 03/03/2025 with history of approximately 72 hours of onset of malaise, fatigue with nausea and emesis reportedly hospitalized in [place] however she left[place] to return to [facility] reporting that she has been having hematemesis and now onset of chest discomfortand dyspnea prompting ED evaluation. She does report that at the OSH she was going to have an upper endoscopy. She notes the chest discomfort is lower sternal, aching/tightness with dyspneaassociated however she is not currently having the symptoms and notes it lasted approximately half an hour previous to ED arrival and rated it at potentially 6-7 out of 10 in severity when it occurred. Workup in the ED included T97, heart 95, BP 135/87, respiratory rate 36, initially 87% on room air with improvement initially to 95% on 2 L nasal cannula with most recent repeat vitals heart rate 86, BP 159/80, respiratory rate 18, 92% on 2.5 L nasal cannula, CBC with WBC 22.9, hemoglobin 15.9, platelet 281 with left shift, D-dimer 0.53, CMP with chloride 97, anion gap 17, BUN/creatinine 39/1.09, GFR 59, glucose 154, lactic acid 2.4, AST/ALT 40/40, initial troponin 91, chest x-ray with no acute cardiopulmonary findings, CT chest/abdomen/pelvis right lung scarring/atelectasis with slight dependent atelectasis with no otherwise acute intra-abdominal or cardiopulmonary findings,EKG with SR with no acute evidence of ischemia, UA pending upon evaluation of patient. In the ED patient ministered maintenance IV fluids in addition to 1 L normal saline bolus, aspirin 162 mg p.o. x 1, DuoNeb therapy, morphine 4 mg IV x1, Zofran 4 mg IV x 1, promethazine 12.5 mg IM x 1. [facility] Medical History Hypokalemia Smoker Hypoxia COPD exacerbation Wears dentures Wears glasses Post-menopausal Depression Arthritis [...] activated powder inhaler of breath or wheezing prednisone 20 mg tablet 20 mg PO BID #10 tabs Unknown Rx trazodone 50 mg tablet 150 mg (3 x 50 mg) PO QHS #1 5 tabs 02/17/25 Unknown Rx albuterol sulfate 90 mcg/actuation inhalation 03/03/25 Unknown History aerosol inhaler Allergy/AdvReac Type Severity Reaction Status Date / Time Sulfa (Sulfonamide Allergy Hives Verified 03/02/25 23:34 Antibiotics) Family History Mother Pancreatic cancer Father COPD (chronic obstructive pulmonary disease) Brother Colon cancer Heart disease Sister Stomach cancer Brother Leukemia Surgical History History of tonsillectomy and adenoidectomy Hx of cholecystectomy Hx of appendectomy Hx of colonoscopy Social History household members: none current occupational status: employed 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 HEENT: Eyes: No visual loss, blurred vision, double vision or yellow sclerae. Ears, Nose, Throat: No hearing loss, sneezing, congestion, runny nose or sore throat. SKIN: No rash or itching, lesions, wounds. CARDIOVASCULAR: + Chest pain. No palpitations, edema, orthopnea, syncopal events. RESPIRATORY: + Dyspnea. No marked cough or sputum, wheezing, hemoptysis. GASTROINTESTINAL: + anorexia, nausea, vomiting, hematemesis. No diarrhea, abdominal pain, melena. GENITOURINARY: No dysuria, frequency, urgency or retention. NEUROLOGICAL: No headache, dizziness, syncope, paralysis, ataxia, numbness or tingling in the extremities, focal weakness, change in bowel or bladder control,seizure. MUSCULOSKELETAL: + muscle, back pain, joint pain or stiffness. HEMATOLOGIC: + Chronic anemia, reported as noted active hematemesis, easy bleeding/bruising. LYMPHATICS: No enlarged nodes. No history of splenectomy. PSYCHIATRIC: + History of anxiety and depression. ENDOCRINOLOGIC: No reports of sweating, cold or heat intolerance. No polyuria orpolydipsia. ALLERGIES: No history of asthma, hives, eczema or rhinitis. Vital Signs Vital Signs Vital Signs: 03/02/25 23:34 03/02/25 23:53 03/03/25 00:28 Temperature 97 F L Temperature Source Temporal Pulse Rate 95 82 Respiratory Rate 36 H 25 H Respiratory Effort Short of Breath Respiratory Pattern Blood Pressure 135/87 H 151/98 H Blood Pressure Mean 103 115 Pulse Ox 87 93 Oxygen Delivery Method Room Air Nasal Cannula Oxygen Flow Rate (L/min) 03/03/25 00:37 03/03/25 01:00 03/03/25 02:00 Temperature Temperature Source Pulse Rate 79 89 86 Respiratory Rate 21 H 25 H 18 Respiratory Effort Respiratory Pattern Tachypnea Blood Pressure 163/97 H 159/80 H Blood Pressure Mean 119 106 Pulse Ox 95 92 Oxygen Delivery Method Nasal Cannula Nasal Cannula Oxygen Flow Rate (L/min) 2 2.5 03/03/25 03:00 Temperature Temperature Source Pulse Rate 91 Respiratory Rate 16 Respiratory Effort Respiratory Pattern Blood Pressure 165/86 H Blood Pressure Mean 112 Pulse Ox 99 Oxygen Delivery Method Nasal Cannula Oxygen Flow Rate (L/min) Weight Weight: 110 lb 3.698 oz Body Mass Index (BMI) 18.9 Physical Exam Narrative Physical Examination: General: Awakens to stimuli, fatigued and does fall asleep but able to carry on a conversation whenshe is awoken, oriented to self, place and recent events, remains cooperative, seated upright in EDbed, fatigued and ill-appearing. Skin: Normal color, normal turgor, no icterus, no cyanosis except occasional stage ecchymoses, abrasions. HEENT: AT/NC, EOMI, PERRLA, dry MM, mild oral thrush evident, no carotid bruits or JVD noted. Lungs: Diminished, greater bases, mildly increased respiratory rate but no distress, occasional endexpiratory wheeze but very scant, no rales or rhonchi. Heart: Regular rate and rhythm; no gallop, rub audible. Abdomen: Soft, thin habitus, unable to elicit any tenderness to palpation including the epigastric region, no obvious distention, hyperactive BS, no appreciated HSM. Extremities: No cyanosis, clubbing, or edema. Neurological: Awakens to stimuli, fatigued and does fall asleep but able to carry on a conversationwhen she is awoken, oriented to self, place and recent events, remains cooperative, seated upright in ED bed, fatigued and ill- appearing, cognitive function aside from fatigued suspect likely intact,pupils equally reactive to light and accommodation, cranial nerves grossly normal, moving all 4 extremities, no focal deficits, strength severely globally decreased secondary to acute presentation. Psychiatric: Affect appears flat, fatigued, no acute evidence of depressive or anxiety feelings butdoes have underlying history. Results Lab / Micro Data 03/03/25 01:15 03/03/25 01:00 Labs: Laboratory Results - last 24 hr 03/03/25 01:00: D-Dimer Quant (PE/DVT) 0.53 H*, Sodium 138, Potassium 3.4, Chloride 97 L, Carbon Dioxide 24.4, Anion Gap 17 H, BUN 36 H, Creatinine 1.09, Estim Creat Clear Calc 37.91 L, Est GFR (MDRD) Non-Af 55 L, BUN/Creatinine Ratio 33.1 H, Glucose 154 H, Calcium 10.5, Total Bilirubin 0.78, AST 40 H, ALT 40 H, Alkaline Phosphatase 78, Total Protein 7.0, Albumin 4.4, Globulin 2.7, Albumin/Globulin Ratio 1.6, Lipase 18 03/03/25 01:15: WBC 22.9 H, RBC 5.21, Hgb 15.9 H, Hct 46.5, MCV 89.3, MCH 30.5, MCHC 34.2, RDW Std Deviation 43.3, RDW Coeff of Tr 13.3, Plt Count 281, MPV 10.1, Immature Gran % (Auto) 0.400, Neut %(Auto) 82.4 H, Lymph % (Auto) 11.1 L,[place] % (Auto) 5.4, Eos % (Auto) 0.3, Baso % (Auto) 0.4, Absolute Neuts (auto) 18.9 H, Absolute Lymphs (auto) 2.54, Nucleated RBC % 0, Lactic Acid 2.4 H*, TroponinT High Sens 91 H* Imaging Radiology Impression Chest X-Ray 03/02/25 23:59 IMPRESSION: No acute chest findings Reading Location: [facility] Chest/Abdomen/Pelvis CT 03/03/25 01:31 IMPRESSION: Right lung band atelectasis. Esophageal reflux. Reading Location: [facility] Assessment & Plan Assessment/Plan (1) Intractable nausea and vomiting: PLAN: Plan The patient is a 69 y/o F w/ PMHx: COPD, Tobacco use, Anxiety and Depression, GERD, Chronic normocytic anemia, HLD, GERD, recently noted discharge 02/17/2025 following evaluation and treatment for acute hypoxia secondary to acute COPD exacerbation discharged on prednisone therapy of note who presents to the [facility] ED on 03/03/2025 with history of approximately 72 hours of onset of malaise, fatigue with nausea and emesis reportedly hospitalized in [place] however she left[place] to return to [facility] reporting that she has been having hematemesis and now onset of chest discomfortand dyspnea prompting ED evaluation. #1. Patient reported hematemesis with as noted chronic normocytic anemia, currently as noted hemoglobin elevated likely falsely given presentation: Patient w/ hematemesis, will maintain n.p.o. statuswhile investigating, will maintain on judicious IV fluids, will obtain serial H&H's as well as guaiac, maintain NPO status, will maintain on IV PPI and pending further findings if clinical appropriate will request gastroenterology involvement. Will request records from OSH. #2. Acute Hypoxia, unclear exact etiology but given recent bouts of hematemesisquestionable pneumonitis/aspiration but no overt CT findings, compounded by underlying COPD and atelectasis as noted on CT imaging: Will maintain on aspiration precautions given recent bouts of emesis, continue to evaluate as noted #1, will continue supplemental oxygen with wean as tolerated, aggressive I-S, maintain on LR results as noted per chronic COPD plan, procalcitonin requested given significant leukocytosis but could be related with dehydration also. If onset of fever or sniffily elevated procalcitonin low threshold to initiate empiric antibiotic therapy. Respiratory viral panel requested. #3. Lactic acidosis, possibly multifactorial given acute kidney injury/dehydration and hypoxia: Admission lactic acid 2.4, continue IV fluid hydration, supplemental oxygen, continued evaluation #1, will trend LA per facility protocol. #4. Elevated cardiac enzyme of unclear significance likely associate with #1, #2: EKG in ED sinus rhythm with no acute evidence of ischemia with nonspecific changes, CXR w/ no acute cardiopulmonary finding, CT chest/abdomen/pelvis with no acute intra-abdominal or cardiopulmonary findings aside fromatelectasis, initial trop 91. Will maintain on a monitored bed to assure no acute myocardial infarction with serial cardiac enzymes and EKGs. Magnesium level requested. FLP in AM. Will defer any aspirin usage or chemoprophylaxis or anticoagulant therapygiven hematemesis report. Echocardiogram requested. If enzymes rise significantly although situation is certainly confounded by above presentation also low threshold to involve cardiology. #5. Acute kidney injury on CKD stage I versus stage II per previous GFR trending: Secondary to acute presentation as noted. Admission BUN/Cr 36/1.09, GFR 55, prior baseline creatinine noted to be primarily 0.6-0.9 maximum however most recently 02/17/2025 creatinine 0.68 will hydrate, hold nephrotoxic medications and repeat chemistry in AM. If no improvement would plan FeNa assessment. #6. Acute mild transaminitis: Hepatic profile with T. bili 0.78, AST and ALT mildly elevated at 40,likely secondary to acute presentation as noted above, continue treatment and repeat CMP in AM. #7. Chronic COPD: Will maintain on oxygen with wean as tolerated to room air given hypoxia as notedabove, will maintain on ATC duonebs, PRN albuterol, HOB, IS parameters. #8. Chronic normocytic anemia: Admission hemoglobin reportedly 15.9, MCV 89.3, baseline hemoglobin primarily 11-12 range, most recently 02/15/2025 hemoglobin 13.6 at that time, likely falsely elevatedgiven presentation as noted above, will repeat CBC in AM. #9. Anxiety and depression: Will continue patient home venlafaxine regimen, will temporally hold higher dose nightly trazodone regimen and add back once appropriate. #10. Tobacco Abuse: Encouraged cessation, inpatient consultation per RT, NR if desired. #11. Hyperlipidemia: Will continue patient on statin therapy. #12. GERD: Maintained on IV PPI as noted. #13. DVT prophylaxis: SCDs, hold on any chemoprophylaxis consideration given hematemesis reported. #14. CODE status: Patient does not have healthcare power of collections attorney or living will in place but she notes she would want her cousin Brittany to be her medical decision-maker if it was absolutely necessary. Discussed CODE status at length including difference between FULL code, DNR-CCA and DNR-CC status. Following discussions about the differences in these status, requested Full Code status. Advanced Care Planning Face to Face Time: 16 minutes. Charges/Coding Visit Charges Inpatient E&M: 91493 Init Hosp L3 Procedures Hospitalists Procedures: 87286 Advncd Care Plan 30 Min 03/03/25 0405 Cosigner Signature (if applicable): CC: Dr. Tonja Jo MD; Dr. Gasper Nelson, DO~ Signed [facility]06-30-2025 Radiology Diagnostic study note [facility] [address] [place], [place] [address] CT Chest, Abd, Pel w/Contrast MR#: [id number] Acct: [id number] Name: ASHLEY GÓMEZ Rep #: [id number] : 1955 F 69 From: Flori Vidales MD PCP: Dr. Gasper Nelson DO Status: SOL [facility] ER Study:CT Chest, Abd, Pel w/Contrast Date of E xam: 03/03/25 Exam# [id number] Ordering Dr: Sol Peralta DO PROCEDURE: CT [...] axilla. Thoracic spine scoliosis and degeneration. Esophageal reflux.Normal heart size. No aortic dissection. No pulmonary [...] lung band atelectasis. Esophageal reflux. Reading Location: [facility] CC: Dr. Gasper Nelson DO; Dr. Abdulkadir Peralta DO ~ Department Editor: Signed [facility]06-30-2025 Radiology Diagnostic study note [facility] [address] [place] [address] Chest 1 View (Portable) MR#: [id number] Acct: [id number] Name: ASHLEY GÓMEZ Rep #: [id number] : 1955 F 69 From: Flori Vidales MD PCP: Dr. Gasper Nelson DO Status: RE G ER Study:Chest 1 View (Portable) Date of Exam: 03/02/25 Exam# [id number] Ordering Dr: Sol Peralta DO PROCEDURE: CHEST 1 VIEW (PORTABLE) 03/03/2025 REASON FOR EXAM: DYSPNEA TECHNIQUE: Frontal view of the chest. COMPARISON: 02/15/2025 FINDINGS: Scoliosis. Normal heart size. Well inflated lungs. No consolidation, effusion, or pneumothorax. RAD/Chest 1 View (Portable) IMPRESSION: No acute chest findings Reading Location: [facility] CC: Dr. Gasper Nelson DO; Dr. Abdulkadir Peralta DO ~ Department Editor: Signed [facility]06-23-2025 Telephone encounter Note* Telephone Encounter - Juju Patton MA - 02/24/2025 11:05 AM EDT Recent Visits Date Type Provider Dept 11/12/24 Office Visit Siomara Estrada PA-C [facility] Showing recent visits within past 365 days and meeting all other requirements Future Appointments Date Type Provider Dept 05/12/25 Appointment Gasper Nelson DO [facility] Showing future appointments within [...] labs completed in chart? N/A [id number] Miscellaneous Notes* Telephone Encounter - Juju Patton MA - 02/24/2025 11:05 AM EDT Recent Visits Date Type Provider Dept 11/12/24 Office Visit Siomara Estrada PA-C [facility] Showing recent visits within past 365 days and meeting all other requirements Future Appointments Date Type Provider Dept 05/12/25 Appointment Gasper Nelson DO [facility] Showing future appointments within [...] completed in chart? N/A documented in this [facility]06-16-2025 Discharge summary [facility] Medical Records Department [address] [place] [address] Instructions for Home/Discharge Instructions 02/17/25 1052 MR#: [id number] Acct: [id number] Name: ASHLEY GÓMEZ Rep #:[id number] : 1955 69 From: Bunny Avilez DO [...] can be placed): Home, Self Care 02/17/25 1059Bunny Avilez DO CC: Dr. Danish Davila DO ~ Signed [facility]06-16-2025 [facility] Medical Records Department [address] [place] [address] Discharge Summary 02/17/25 1059 MR#: [id number] Acct: [id number] Name: ASHLEY GÓMEZ Rep #: [id number] : 1955 69 From: Bunny Avilez DO PCP: Dr. Danish Davila DO Status:DIS IN Location: [facility] RI919-2 Providers Date of Admission: 02/15/25 Date of [...] was seen in the emergency room at [facility] with complaints of shortness of breath [...] no acute process. Patient was admitted to [place] [address] for exacerbation of COPD and treated with [...] or = to 20 (more content not included)...[facility]06-15-2025 Progress note Author Bunny Avilez [facility] Note Date/Time February 16, 2025 11:2 2am [facility] Medical Records Department [address] [place] [address] Progress Note - Hospitalist 02/16/25 1117 MR#: [id number] Acct: [id number] Name: ASHLEY GÓMEZ Rep #:[id number] : 1955 69 From: Bunny Avilez DO PCP: Dr. Danish Davila, Status:ADM IN [facility] Reason for Visit Reason for Visit: Diagnoses [...] 35 minutes Charges/Coding Visit Charges Inpatient E&M: 45294 Subs Hosp L2 02/16/25 1122 <Electronically signed by Bunny Avilez DO> Cosigner Signature (if applicable): CC: ~ Signed [facility] Work Phone: 1(936) 220-379506-15-2025 Progress note [facility] Medical Records Department [address] [place] [address] Progress Note - Hospitalist 02/16/25 1117 MR#: [id number] Acct: [id number] Name: ASHLEY GÓMEZ Rep #:[id number] : 1955 69 From: Bunny Avilez DO PCP: Dr. Danish Davila DO Status:ADM IN Location: [place] [address]-1 Reason for Visit Reason for Visit: Diagnoses [...] 35 minutes Charges/Coding Visit Charges Inpatient E&M: 59564 Subs Hosp L2 02/16/25 1122 Cosigner Signature (if applicable): CC: ~ Signed [facility]06-14-2025 History and physical note Author Bunny Avilez [facility] Note Date/Time February 15, 2025 3:06 pm [facility] Medical Records Department [address] [facility] [place] [address] H&P Exam - Hospitalist 02/15/25 6385 MR#: [id number] Acct: [id number] Name: ASHLEY GÓMEZ Rep #:[id number] : 1955 69 From: Bunny Avilez DO PCP: Dr. Danish Davila, DO Status:ADM IN Location: [facility] YY463-7 HPI - General General Date of Admission: 02/15/25 Date of Service: 02/15/25 Chief Complaint: Shortness of breath HPI Narrative ASHLEY GÓMEZ, is a 69 F who presents to the emergency room at [facility] with complaints of shortness of breath [...] acute infiltrates patient will be admitted to [place] [address] for exacerbation of COPD with hypoxia, she will be given aerosol treatments IV Solu-Medrol, pulse ox will be monitored. [facility] Medical History Wears dentures Wears glasses [...] none current occupational status: employed current occupation: [employer] Smoking Status: Current every day smoker tobacco [...] (Auto) 77.0 H, Lymph % (Auto) 19.2, [place] % (Auto) 1.9, Eos % (Auto) 0.7, [...] 09:25 IMPRESSION: No acute process Reading [facility] Assessment & Plan Assessment/Plan (1) COPD exacerbation: PLAN: Plan 1. Exacerbation of COPD-patient will be admitted to [facility] 3 and given aerosoltreatments and IV Solu-Medrol #2 [...] 55 minutes Charges/Coding Visit Charges Inpatient E&M: 18056 Init Hosp L2 02/15/25 1506 <Electronically signed by Bunny Avilez DO> Cosigner Signature (if applicable): CC: Dr. Bunny Avilez, ; Dr. Danish Davila DO~ Signed [facility] Work Phone: 1(466) 994-476206-14-2025 History and physical note [facility] Medical Records Department [address] [facility] [place] [address] H&P Exam - Hospitalist 02/15/25 1459 MR#: [id number] Acct: [id number] Name: ASHLEY GÓMEZ Rep #:[id number] : 1955 69 From: Bunny Avilez DO PCP: Dr. Danish Davila DO Status:ADM IN Location: [facility] [id number] HPI - General General Date of Admission: 02/15/25 Date of Service: 02/15/25 Chief Complaint: Shortness of breath HPI Narrative ASHLEY GÓMEZ, is a 69 F who presents to the emergency room at [facility] with complaints of shortness of breath [...] acute infiltrates patient will be admitted to [place] [address] for exacerbation of COPD with hypoxia, she will be given aerosol treatments IV Solu-Medrol, pulse ox will be monitored. [facility] Medical History Wears dentures Wears glasses [...] none current occupational status: employed current occupation: [employer] Smoking Status: Current every day smoker tobacco [...] (Auto) 77.0 H, Lymph % (Auto) 19.2, [place] % (Auto) 1.9, Eos % (Auto) 0.7, [...] 09:25 IMPRESSION: No acute process Reading [facility] Assessment & Plan Assessment/Plan (1) COPD exacerbation: PLAN: Plan 1. Exacerbation of COPD-patient will be admitted to [place] [address] and given aerosoltreatments and IV Solu-Medrol #2 [...] 55 minutes Charges/Coding Visit Charges Inpatient E&M: 70586 Init Hosp L2 02/15/25 1506 Cosigner Signature (if applicable): CC: Dr. Bunny Avilez, DO; Dr. Danish Davila, DO~ Signed [facility]06-14-2025 Evaluation note* Diagnosis Onset Date Resolution Status Admit Date Hypokalemia acute February 15 11:21am Hypoxia acute February 15 11:21am Smoker acute February 15 11:21am COPD exacerbation chronic February 152024 11:21am [facility] Work Phone: 1(772) 790-765706-14-2025 Evaluation note* Diagnosis Onset Date Resolution Status Admit Date COPD exacerbation inactive February 152024 11:21am Hypokalemia inactive February 15 11:21am Hypoxia inactive February 15 11:21am Smoker inactive February 15 11:21am Hypoxemia acute March 03 3:30am Intractable nausea and vomiting acut e March 03, 2025 3:30am Non-ST elevated myocardial infarction acute March 03, 2025 3:30am History of COPD chronic February 3:30am [facility] Work Phone: 1(291) 532-432706-14-2025 Evaluation note* Diagnosis Onset Date Resolution Status Admit Date COPD exacerbation inactive February 152024 11:21am Hypokalemia inactive February 15 11:21am Hypoxia inactive February 15 11:21am Smoker inactive February 15 11:21am Hematemesis acute March 03 3:30am Hypoxemia acute March 03 3:30am Intractable nausea and vomiting acut e March 03, 2025 3:30am Non-ST elevated myocardial infarction acute March 03, 2025 3:30am History of COPD chronic February 3:30am [facility] Work Phone: 1(753) 387-708606-14-2025 Discharge summary Author Wilfred Bryan [facility] Note Date/Time February 15, 2025 11:1 1am [facility] Medical Records Department [address] [place] [address] Emergency Department Summary 02/15/25 MR#: [id number] Acct: [id number] Name: ASHLEY GÓMEZ Rep #:[id number] : 1955 69 From: Wilfred Bryan MD [...] day. Additionally, sometimes she smokes as well. [facility] Medical History Wears dentures Wears glasses [...] none current occupational status: employed current occupation: [employer] Smoking Status: Current every day smoker tobacco [...] (Auto) 77.0 H Lymph % (Auto) 19.2 [place] % (Auto) 1.9 Eos % (Auto) 0.7 [...] 09:25 IMPRESSION: No acute process Reading [facility] Management Discussion w/another healthcare provider: Hospitalist [...] DO [Primary Care Provider] - Print Language: Cape Verdean What to do if you have Problems For any increased pain, shortness of breath, bleeding, nausea or vomiting, chestpain, or any unexpected problems, contact your Primary Care Provider. Call [facility] ([phone]) or report to the closest Emergency Room. Call 911 if necessary. 02/15/25 1111 <Electronically signed by Wilfred Bryan MD> Cosigner Signature (if applicable): CC: Dr. Danish Davila, DO ~ Signed [facility] Work Phone: 1(529) 987-491706-14-2025 Discharge summary [facility] Medical Records Department [address] [place] [address] Emergency Department Summary 02/15/25 MR#: [id number] Acct: [id number] Name: ASHLEY GÓMEZ Rep #:[id number] : 1955 69 From: Wilfred Bryan MD [...] day. Additionally, sometimes she smokes as well. [facility] Medical History Wears dentures Wears glasses [...] none current occupational status: employed current occupation: [employer] Smoking Status: Current every day smoker tobacco [...] (Auto) 77.0 H Lymph % (Auto) 19.2 [place] % (Auto) 1.9 Eos % (Auto) 0.7 [...] 09:25 IMPRESSION: No acute process Reading Location: [facility] Management Discussion w/another healthcare provider: Hospitalist [...] DO [Primary Care Provider] - Print Language: [place]an What to do if you have Problems For any increased pain, shortness of breath, bleeding, nausea or vomiting, chestpain, or any unexpected problems, contact your Primary Care Provider. Call [facility] ([phone]) or report tothe closest Emergency Room. Call 911 if necessary. 02/15/25 1111 Cosigner Signature (if applicable): CC: Dr. Danish Davila DO ~ Signed [facility]06-14-2025 Radiology Diagnostic study note [facility] [address] [place], [place] [address] Chest 1 View (Portable) MR#: [id number] Acct: [id number] Name: ASHLEY GÓMEZ Rep #: [id number] : 1955 F 69 From: Pet [employer] Peer PCP: Dr. Danish Davila DO Status: REG ER Study:Chest 1 View (Portable) Date of Exam: 02/15/25 Exam# [id number] Ordering Dr: Wilfred Bryan MD PROCEDURE: CHEST 1 VIEW (PORTABLE) 02/15/2025 REASON FOR EXAM: SHORTNESS OF BREATH TECHNIQUE: Frontal view of the chest. FINDINGS: Hardware: None Heart: Normal size Lungs: Clear Bones: No aggressive Other: RAD/Chest 1 View (Portable) IMPRESSION: No acute process Reading Location: [facility] CC: Dr. Wilfred Bryan MD; Dr. Danish Davila DO ~ Department Editor: Signed [facility]06-10-2025 Telephone encounter Note* Telephone Encounter - Mia Alvarez MA - 02/11/2025 9:02 AM EDT Patient advised and voiced understanding. [facility]Tdcfqb66-80-1344 Miscellaneous Notes* Telephone Encounter - Mia Alvarez [...] sent in. Please advise documented in this [facility]06-09-2025 Telephone encounter Note* Telephone Encounter - Mia Alvarez MA - 02/10/2025 5:42 PM EDT Called patient to relay provider message left voicemail to call office back. Mychart message sent to patient. Please relay message to patient. [facility] SouthRpeyjp68-85-0926 Miscellaneous Notes* Telephone Encounter - Mia Alvarez [...] sent in. Please advise documented in this [facility]06-09-2025 Note* Addendum Note - Juju Patton MA - 02/10/2025 3:52 PM EDTAddended by: JUJU PATTON on: 02/10/2025 03:52 PM Modules accepted: Orders [facility] SouthCtekwo23-75-0668 Note* Addendum Note - Juju Patton MA - 02/10/2025 3:52 PM EDTAddended by: JUJU PATTON on: 02/10/2025 03:52 PM Modules accepted: Orders [facility] SouthZsayol13-51-1875 Note* Addendum Note - Juju Patton MA - 02/10/2025 3:52 PM EDTAddended by: JUJU PATTON on: 02/10/2025 03:52 PM Modules accepted: Orders [facility] SouthZxmqtx39-94-6373 Note* Addendum Note - Juju Patton MA - 02/10/2025 3:52 PM EDTAddended by: JUJU PATTON on: 02/10/2025 03:52 PM Modules accepted: Orders [facility] SouthJsqxzl46-49-6678 Note* Addendum Note - Juju Patton MA - 02/10/2025 3:52 PM EDTAddended by: JUJU PATTON on: 02/10/2025 03:52 PM Modules accepted: Orders [facility] SouthWyjjqi92-17-7142 Telephone encounter Note* Telephone Encounter - Dory [...] script sent in. Please advise [facility] SouthEsbkzm44-75-0876 Telephone encounter Note* Telephone Encounter - Juju Patton MA - 02/10/2025 10:47 AM EDT Recent Visits Date Type Provider Dept 11/12/24 Office Visit Siomara Estrada PA-C [facility] 02/22/24 Office Visit Gasper Nelson DO [facility] Showing recent visits within past 365 [...] labs completed in chart? N/A [facility] SouthJqvcps97-83-4281 Miscellaneous Notes* Telephone Encounter - Juju Patton MA - 02/10/2025 10:47 AM EDT Recent Visits Date Type Provider Dept 11/12/24 Office Visit Siomara Estrada PA-C [facility] 02/22/24 Office Visit Gasper Nelson DO [facility] Showing recent visits within past 365 [...] completed in chart? N/A documented in this [facility]04-11-2025 Telephone encounter Note* Telephone Encounter - Sara Munoz LPN - 12/13/2024 8:24 AM EDT Recent Visits Date Type Provider Dept 11/12/24 Office Visit Siomara Estrada PA-C [facility] 02/22/24 Office Visit Gasper Nelson DO [facility] Showing recent visits within past 365 [...] 01/13/2023 NONHDLCHOLES 174 (H) 01/13/2023 [facility]Hktglb88-03-6533 Miscellaneous Notes* Telephone Encounter - Sara Munoz LPN - 12/13/2024 8:24 AM EDT Recent Visits Date Type Provider Dept 11/12/24 Office Visit Siomara Estrada PA-C [facility] 02/22/24 Office Visit Gasper Nelson DO [facility] Showing recent visits within past 365 [...] NONHDLCHOLES 174 (H) 01/13/2023 documented in this [facility]03-31-2025 NoteOutreach to patient to provide information on how to enroll in silver sneakers and she requested refill of Trazadone for sleep issues last filled in 06/28 for 90 days, last OV 11/[facility]/24[facility]03-31-[facility] Telephone encounter Note* Telephone Encounter - Brissa Warner RN - 12/02/2024 1:06 PM EDT Outreach to patient to provide information on how to enroll in silver sneakers and she requested refill of Trazadone for sleep issues last filled in 06/28 for 90 days, last OV 11/12/24 [facility]Nelxga09-74-7858 Miscellaneous Notes* Telephone Encounter - Brissa Warner RN - 12/02/2024 1:06 PM EDT Outreach to patient to provide information on how to enroll in silver sneakers and she requested refill of Trazadone for sleep issues last filled in 06/28 for 90 days, last OV 11/12/24 documented in this [facility]03-11-2025 Evaluation + Plan note* Assessment & Plan [...] levels have been adequately controlled [facility]Jhnlxq63-06-5021 Miscellaneous Notes* Assessment & Plan Note - [...] strongly encouraged smoking cessation. documented in this encounterSUC Medical CenterSpepvh79-06-4399 Evaluation + Plan note* Assessment & Plan Note - Siomara Estrada PA-C - 11/12/2024 9:12 AM EDTAssociated Problem(s): GERD (gastroesophageal reflux disease) - Chronic stable she will continue on esomeprazole 40 mg daily. [facility] SouthLkunqh95-03-3361 Evaluation + Plan note* Assessment & Plan [...] congestion strongly encouraged smoking cessation. [facility] SouthHhpnvd49-03-5808 History of Present illness Narrative* Siomara Estrada PA-C - 11/12/2024 8:40 AM EDT Images from the original note were not included. [facility] - [address] [facility] [address] Dept: [phone] Dept Chief Complaint: Ashley Gómez is an [...] this issue and continues to work at [employer]. Would like to get involved with [employer]. Health Habits/Nutrition: Health Habits / Nutrition On [...] current issues, And agreeable to look into [employer] Hearing/ Vision: Hearing / Vision Do you [...] to make appointment with his / her eye glass frame polisher Safety: Safety Do you have a working [...] Housing Stability: Unknown (11/12/2024) documented in this [facility]03-11-2025 Instructions* Patient Instructions* Siomara Estrada PA-C - [...] Recommendations: A preventive eye exam by an eye glass frame polisher is recommended every 1-2 years to screen for glaucoma, cataracts, macular degeneration, and other eye disorders. A preventive dental visit is recommended every 6 months. Try to get at least 150 minutes of exercise per week or 10,000 steps per day on a pedometer. You need 1200-1500mg of calcium and 4798-3849 international units of vitamin D per day. [...] bicycle or a motorcycle documented in this [facility]02-27-2025 History of Present illness Narrative* Gasper Serrano Puneetsam, - 10/31/2024 12:00 PM EST Images from the original note were not included. [facility] - [address] [facility] [address] Dept: [phone] Dept Loc: [phone] Patient was identified and seen today via [...] stated that they are currently in the [facility]. If the patient is a [...] DO 10/31/2024 12:20 PM documented in this [facility]02-27-2025 Telephone encounter Note* Telephone Encounter - Michell [...] not coughing Protocols used: Cough - Acute Mts-Lbugleodnd-VYHPJ-AH [facility] SouthGaehfo04-63-5755 Miscellaneous Notes* Telephone Encounter - Michell Chin [...] not coughing Protocols used: Cough - Acute Zqh-Vhaifgltwh-XSYLK-AH documented in this [facility]01-28-2025 Telephone encounter Note* Telephone Encounter - Neeta Villeda RN - 10/01/2024 1:57 PM EST Received signed receipt of certified letter sent to patient. Scanned to media in chart. [facility] SouthKxkudf08-37-7404 Miscellaneous Notes* Telephone Encounter - Neeta Villeda RN - 10/01/2024 1:57 PM EST Received signed receipt of certified letter sent to patient. Scanned to media in chart. * Telephone Encounter - Kianna Stevenson - 06/28/2024 8:47 AM EDT No auth needed. Faxed orders to [place] [...] and assist patient with scheduling. She prefers [place] for imaging location and is available on [...] the recommended 3-month follow- up CT chest. [facility] scheduling and provider office have made multiple attempts to contact patient to assist with scheduling imaging. Navigator mailed patient lung screening follow-up reminder letter and lung nodule patient information. If patient does not call in to schedule imaging, navigator will plan to send certified letter. documented in this [facility]01-27-2025 Telephone encounter Note* Telephone Encounter - Mia Alvarez MA - 09/30/2024 11:56 AM EST Recent Visits Date Type Provider Dept 02/22/24 Office Visit Gasper Nelson DO [facility] Showing recent visits within past 365 days and meeting all other requirements Future Appointments Date Type Provider Dept 11/12/24 Appointment Gasper Nelson DO [facility] Showing future appointments within [...] completed in chart? N/A None [facility] SouthNnfwpo64-78-0168 Miscellaneous Notes* Telephone Encounter - Mia Alvarez MA - 09/30/2024 11:56 AM EST Recent Visits Date Type Provider Dept 02/22/24 Office Visit Gasper Nelson DO [facility] Showing recent visits within past 365 days and meeting all other requirements Future Appointments Date Type Provider Dept 11/12/24 Appointment Gasper Nelson DO [facility] Showing future appointments within [...] in chart? N/A None documented in this [facility]01-13-2025 Telephone encounter Note* Telephone Encounter - Sara Munoz LPN - 09/16/2024 2:12 PM EST Recent Visits Date Type Provider Dept 02/22/24 Office Visit Gasper Serrano DO [place] [facility] Showing recent visits within past 365 days and meeting all other requirements Future Appointments Date Type Provider Dept 09/30/24 Appointment Gasper NelsonDO [facility] Showing future appointments within [...] 01/13/2023 NONHDLCHOLES 174 (H) 01/13/2023 [facility] SouthZtizjh31-76-1101 Miscellaneous Notes* Telephone Encounter - Sara Munoz LPN - 09/16/2024 2:12 PM EST Recent Visits Date Type Provider Dept 02/22/24 Office Visit Gasper Maggie DO [place] [facility] Showing recent visits within past 365 days and meeting all other requirements Future Appointments Date Type Provider Dept 09/30/24 Appointment Gasper Maggie DO [place] [facility] Showing future appointments within [...] NONHDLCHOLES 174 (H) 01/13/2023 documented in this [facility]11-20-2024 Telephone encounter Note* Telephone Encounter - Mia [...] 01/13/2023 NONHDLCHOLES 174 (H) 01/13/2023 [facility] SouthEvrrql11-15-2893 Miscellaneous Notes* Telephone Encounter - Mia Alvarez MA - 07/24/2024 11:42 AM EST Recent Visits Date Type Provider Dept 02/22/24 Office Visit Gasper Serrano [place], DO [facility] 07/31/23 Office Visit Gasper Serrano [place] DO [facility] Showing recent visits within past 365 days and meeting all other requirements Future Appointments Date Type Provider Dept 08/21/24 Appointment Gasper Nelson DO [facility] Showing future appointments within [...] NONHDLCHOLES 174 (H) 01/13/2023 documented in this [facility]10-25-2024 Telephone encounter Note* Telephone Encounter - Heeln Jennings - 06/28/2024 3:26 PM EDT Reason [...] to get her scheduled. Thank you Contact [place] [address]Sumllm47-04-3562 Miscellaneous Notes* Telephone Encounter - Helen Jennings [...] scheduled. Thank you Contact documented in this encounterSUC Medical CenterPqvbxm66-20-5109 Telephone encounter Note* Telephone Encounter - Kianna Stevenson - 06/28/2024 8:47 AM EDT No auth needed. Faxed orders to [facility] for pt to be sched - [facility] will sched/advise pt. My chart mess sent to patient with info to sched. [place] [id number] Miscellaneous Notes* Telephone Encounter - Kianna Stevenson [...] and assist patient with scheduling. She prefers [place] for imaging location and is available on [...] to send certified letter. documented in this [facility]10-24-2024 Telephone encounter Note* Telephone Encounter - Marycruz Mazariegos MA - 06/27/2024 4:27 PM EDT Vincent Perez, It looks like the patient navigator has done all that she can do. So it looks like all avenues havebeen exhausted to try and reach this patient to schedule. [facility] SouthKkfegw74-85-2493 Miscellaneous Notes* Telephone Encounter - Marycruz Mazariegos [...] and assist patient with scheduling. She prefers [place] for imaging location and is available on Monday the if there are any appointments available. * Telephone Encounter - Joann Jnae RCP - 06/20/2024 2:31 PM EDT Patient [...] to send certified letter. documented in this encounterSUC Medical CenterUyzful91-62-0387 Telephone encounter Note* Telephone Encounter - Kianna Stevenson - 06/27/2024 2:02 PM EDT To April to follow up [facility] SouthFtkvhw23-11-5469 Telephone encounter Note* Telephone Encounter - Joann Jane RCP - 06/27/2024 9:43 AM EDT Mrs. Gómez called in after receiving certified letter. She would like to return to complete the recommended lung screening 3 month follow-up imaging previously ordered by Dr. Nelson. Will send message to provider office to place new referral for imaging and assist patient with scheduling. She prefers [place] for imaging location and is available on Monday the if there are any appointments available. [facility] SouthTyerah98-44-7009 NotePatient still has not completed the recommended lung screening follow-up imaging. Navigator mailed certified letter, lung nodule education materials, and offered to assist with overcoming barriers to care.[facility]10-17-2024 Telephone encounter Note* Telephone Encounter - Joann Jane RCP - 06/20/2024 2:31 PM EDT Patient still has not completed the recommended lung screening follow-up imaging. Navigator mailed certified letter, lung nodule education materials, and offered to assist with overcoming barriers to care. [facility] SouthBxeazy82-67-4640 Miscellaneous Notes* Telephone Encounter - Joann Jane [...] to send certified letter. documented in this encounterSUC Medical CenterEoxvsl35-94-9257 Telephone encounter Note* Telephone Encounter - Sara Munoz LPN - 06/11/2024 5:05 PM EDT RX loaded Next ov 08/21/24 [place] [id number] Miscellaneous Notes* Telephone Encounter - Sara Munoz [...] up the medication: Yes documented in this [facility]10-08-2024 Telephone encounter Note* Telephone Encounter - Portia [...] picking up the medication: Yes [facility] SouthXbsaab80-91-9009 [facility] Medical Records Department [address] [place] [address] History Physical Exam 04/29/24 0756 MR#: [id number] Acct: [id number] Name: ASHLEY GÓMEZ Rep #: [id number] : 1955 68 From: Slim Friend DO PCP: Dr. Danish Davila, DO Status:[facility] Location: [place] [address] HPI - General General Date of Admission: [...] Overall she is in fairly good health. [facility] Medical History (Updated 04/26/24 @ 14:43 [...] none current occupational status: employed current occupation: [employer] Smoking Status: Former smoker Tobacco: How many [...] Dr. Danish Davila, DO; Slim Weiss DO SignedWCleveland Clinic [facility]08-20-2024 NoteMs. Gómez had a Lung RADS [...] imaging, navigator will plan to send certified letter.[facility]08-20-2024 Telephone encounter Note* Telephone Encounter - [...] plan to send certified letter. [facility] SouthWewsoy85-21-9263 Telephone encounter Note* Telephone Encounter - Marycruz Mazariegos MA - 04/17/2024 7:37 AM EDT Recent Visits Date Type Provider Dept 02/22/24 Office Visit Gasper Nelson DO [facility] 07/31/23 Office Visit aGsper Nelson DO [facility] Showing recent visits within past 365 [...] any other provider? No None [facility] SouthMmevpu22-13-0973 Miscellaneous Notes* Telephone Encounter - Marycruz Mazariegos MA - 04/17/2024 7:37 AM EDT Recent Visits Date Type Provider Dept 02/22/24 Office Visit Gasper Maggie [place], DO [facility] 07/31/23 Office Visit Gasper Nelson DO [facility] Showing recent visits within past 365 [...] other provider? No None documented in this encounterSUC Medical CenterEpmwik23-56-0511 Telephone encounter Note* Telephone Encounter - Farida Mary - 04/12/2024 7:31 AM EDT Orders cancelled [facility] SouthZhtqtl82-89-6144 Miscellaneous Notes* Telephone Encounter - Farida Mary - 04/12/2024 7:31 AM EDT Orders cancelled * Telephone Encounter - Rosa Rodas - 04/11/2024 4:07 PM EDT We have been unable to reach your patient to schedule their testing. Test Name: CT lung screening follow up, PFT and Mammo 1st Attempt: 03/30/24 2nd Attempt: 04/11/24 Thanks, [facility] Scheduling documented in this [facility]08-08-2024 Telephone encounter Note* Telephone Encounter - Rosa Rodas - 04/11/2024 4:07 PM EDT We have been unable to reach your patient to schedule their testing. Test Name: CT lung screening follow up, PFT and Mammo 1st Attempt: 03/30/24 2nd Attempt: 04/11/24 Thanks, [facility] Scheduling [facility] SouthTrnxoz42-72-6753 Miscellaneous Notes* Telephone Encounter - Rosa Rodas - 04/11/2024 4:07 PM EDT We have been unable to reach your patient to schedule their testing. Test Name: CT lung screening follow up, PFT and Mammo 1st Attempt: 03/30/24 2nd Attempt: 04/11/24 Thanks, [facility] Scheduling documented in this [facility]06-20-2024 Telephone encounter Note* Telephone Encounter - Kianna Stevenson - 02/22/2024 2:26 PM EDT Referral / orders pended for dx and doctor's signature [facility] SouthPutzhr95-45-0380 Miscellaneous Notes* Telephone Encounter - Kianna Stevenson - 02/22/2024 2:26 PM EDT Referral / orders pended for dx and doctor's signature documented in this encounterSUC Medical CenterKtzrqh69-07-3813 History of Present illness Narrative* Gasper Serrano Miguelarleen, - 02/22/2024 1:00 PM EDT Images from the original note were not included. [facility] [address] [facility] [address] Visit type: Established Patient [...] capsule TAKE 1 CAPSULE EVERY MORNING BEFORE [id number] capsule 1 [DISCONTINUED] simvastatin (Zocor) 80 MG [...] changes, or axillary adenopathy documented in this encounterSUC Medical CenterDavqpt03-78-7230 Telephone encounter Note* Telephone Encounter - Fawn Hassan MA - 02/09/2024 9:30 AM EDT Pt scheduled with Dr Nelson 02/22/24 [facility]kkoyb09-12-6764 Miscellaneous Notes* Telephone Encounter - Fawn Hassan [...] Name of caller: Isauro Contact phone number: [phone] Relationship to Patient: Patient Provider: Dr. Nelson Practice: [facility] Chief Complaint/Reason for Call: Pt Pt had to reschedule appointment. Please contact pt if appointment is not soon enough, pt is concerned FYI Best time of day caller can be reached: Any Patient advised that office/PCP has 24-48 business hours to return their call: No documented in this [facility]06-03-2024 Telephone encounter Note* Telephone Encounter - Fawn Hassan MA - 02/05/2024 11:02 AM EDT Left message for patient to return call to the office to get scheduled please schedule patient either February [address] [place] dawson. [facility] SouthZrneiy62-78-2370 Miscellaneous Notes* Telephone Encounter - Fawn Hassan MA - 02/05/2024 11:02 AM EDT Left message for patient to return call to the office to get scheduled please schedule patient either February [address] [place] dawson. * Telephone Encounter - Ramila Lee - 02/05/2024 9:02 AM EDT Name of caller: Isauro Contact phone number: [phone] Relationship to Patient: Patient Provider: Dr. Nelson Practice: [facility] Chief Complaint/Reason for Call: Pt Pt had to reschedule appointment. Please contact pt if appointment is not soon enough, pt is concerned FYI Best time of day caller can be reached: Any Patient advised that office/PCP has 24-48 business hours to return their call: No documented in this [place] [id number] Telephone encounter Note* Telephone Encounter - Ramila Lee - 02/05/2024 9:02 AM EDT Name of caller: Isauro Contact phone number: [phone] Relationship to Patient: Patient Provider: Dr. Nelson Practice: [facility] Chief Complaint/Reason for Call: Pt Pt had to reschedule appointment. Please contact pt if appointment is not soon enough, pt is concerned FYI Best time of day caller can be reached: Any Patient advised that office/PCP has 24-48 business hours to return their call: No [facility] SouthClpjoa54-58-6463 Telephone encounter Note* Telephone Encounter - Juju Patton MA - 01/02/2024 10:56 AM EDT Pharmacy updated. [facility]Cjjzyf58-86-3019 Miscellaneous Notes* Telephone Encounter - Juju Patton MA - 01/02/2024 10:56 AM EDT Pharmacy updated. * Telephone Encounter - Mary Zavaleta - 01/02/2024 10:46 AM EDT Name of caller: Isauro Contact phone number: [phone] Relationship to Patient: patient Provider: [place] Practice: [facility] Chief Complaint/Reason for Call: Pt called to report that her antibiotic and Prednisone were not sent to her local [facility] as requested - they were accidentally sent to [facility] by mistake. Please send to [facility] on [address] in [place] listed in her chart instead. Please call once has been sent over. Best time of day caller can be reached: Any Patient advised that office/PCP has 24-48 business hours to return their call: No documented in this encounterSRand[place] [id number] Telephone encounter Note* Telephone Encounter - Mary Zavaleta - 01/02/2024 10:46 AM EDT Name of caller: Isauro Contact phone number: [phone] Relationship to Patient: patient Provider: [place] Practice: [facility] Chief Complaint/Reason for Call: Pt called to report that her antibiotic and Prednisone were not sent to her local [facility] as requested - they were accidentally sent to [facility] pharmacy by mistake. Please send to [facility] on [address] in [place] listed in her chart instead. Please call once has been sent over. Best time of day caller can be reached: Any Patient advised that office/PCP has 24-48 business hours to return their call: No [place] [id number] Telephone encounter Note* Telephone Encounter - Nelly Villa LPN - 12/22/2023 11:56 AM EDT LM - called to relay message to pt that she can schedule out into February [address]Oxkxux38-50-7115 Miscellaneous Notes* Telephone Encounter - Nelly Villa LPN - 12/22/2023 11:56 AM EDT LM - called to relay message to pt that she can schedule out into February * Telephone Encounter - Agnes Cedillo MA - 12/22/2023 11:20 AM EDT noted * Telephone Encounter - Nigel Caicedo - 12/22/2023 8:31 AM EDT Name of caller: Isauro Contact phone number: [phone] (work number) Relationship to Patient: patient Provider: Argentina Practice: [facility] Chief Complaint/Reason for Call: Patient calling back [...] number above, which is the number for [employer] where she works. Patient advised that office/PCP has 24-48 business hours to return their call: Yes documented in this [facility]04-19-2024 Telephone encounter Note* Telephone Encounter - Agnes Cedillo MA - 12/22/2023 11:20 AM EDT noted [place] [id number] Telephone encounter Note* Telephone Encounter - Nigel Caicedo - 12/22/2023 8:31 AM EDT Name of caller: Isauro Contact phone number: [phone] (work number) Relationship to Patient: patient Provider: Argentina Practice: [facility] Chief Complaint/Reason for Call: Patient calling back [...] number above, which is the number for [employer] where she works. Patient advised that office/PCP has 24-48 business hours to return their call: Yes [place] [id number] Telephone encounter Note* Telephone Encounter - Julian Dan RN - 12/21/2023 5:49 PM EDT duplicate [facility] SouthSfusjt11-91-2951 Miscellaneous Notes* Telephone Encounter - Julian Dan RN - 12/21/2023 5:49 PM EDT duplicate documented in this encounterSUC Medical CenterHgwuum33-81-8401 Telephone encounter Note* Telephone Encounter - Heather [...] prior to picking up the medication: Yes [place] [id number] Miscellaneous Notes* Telephone Encounter - Heather Jean [...] up the medication: Yes documented in this [facility]04-15-2024 Telephone encounter Note* Telephone Encounter - Agnes Cedillo MA - 12/18/2023 10:22 AM EDT Recent Visits Date Type Provider Dept 07/31/23 Office Visit Gasper Nelson DO [facility] 01/13/23 Office Visit Gasper Nelson DO [facility] Showing recent visits within past 365 days and meeting all other requirements Future Appointments Date Type Provider Dept 02/05/24 Appointment DO Gillian Bai [facility] Showing future appointments within next 90 [...] labs completed in chart? N/A [facility]Mjkhlr52-10-5179 Miscellaneous Notes* Telephone Encounter - Agnes Cedillo MA - 12/18/2023 10:22 AM EDT Recent Visits Date Type Provider Dept 07/31/23 Office Visit Gasper Nelson DO [facility] 01/13/23 Office Visit Gasper Nelson DO [facility] [place] [facility] Showing recent visits within past 365 days and meeting all other requirements Future Appointments Date Type Provider Dept 02/05/24 Appointment Gasper Nelson DO [facility] Showing future appointments within [...] completed in chart? N/A documented in this [facility]11-28-2023 Telephone encounter Note* Telephone Encounter - Kianna Silvestree - 08/01/2023 8:22 AM EST Orders pended for doctor's signature [facility] SouthCqqhcv89-90-8791 Miscellaneous Notes* Telephone Encounter - Kianna Silvestree - 08/01/2023 8:22 AM EST Orders pended for doctor's signature * Telephone Encounter - Kianna Stevenson - 08/01/2023 8:15 AM EST ----- Message from Gasper Nelson DO sent at 07/31/2023 4:06 PM EST ----- Schedule LDCT for pt to be done in 11/2023 documented in this encounterSUC Medical CenterKqkcyf25-22-2620 Telephone encounter Note* Telephone Encounter - Kianna Silvestree - 08/01/2023 8:15 AM EST ----- Message from Gasper Nelson DO sent at 07/31/2023 4:06 PM EST ----- Schedule LDCT for pt to be done in 11/2023 [place] [id number] History of Present illness Narrative* Gasper Nelson DO - 07/31/2023 3:30 PM EST Images from the original note were not included. [facility] [address] [facility] [address] Visit type: Established Patient [...] work a fair number hours at the [employer] in [place] doing various jobs. Review of Systems denies [...] are pink without edema documented in this [facility]11-27-2023 History of Present illness Narrative* Gasper Nelson DO - 07/31/2023 3:30 PM EST Images from the original note were not included. [facility] [address] [place] [address] [address] [facility] [address] Visit type: Established Patient [...] work a fair number hours at the [employer] in [place] doing various jobs. Review of Systems denies [...] List Diagnosis COPD (chronic obstructive pulmonary disease) ([facility]) Osteopenia GERD (gastroesophageal reflux disease) Social History [...] are pink without edema documented in this [facility]11-27-2023 Miscellaneous Notes* Addendum Note - Rosalind Quintero - 07/31/2023 3:30 PM ESTAddended by: ROSALIND QUINTERO on: 12/18/2023 08:32 AM Modules accepted: Orders documented in this [facility]11-27-2023 Note* Addendum Note - Rosalind Quintero - 07/31/2023 3:30 PM ESTAddended by: ROSALIND QUINTERO on: 12/18/2023 08:32 AM Modules accepted: Orders [place] [id number] Telephone encounter Note* Telephone Encounter - Sara Munoz LPN - 03/14/2023 11:39 AM EDT Signed Handicap placard signed and mailed to patient per their request. [facility] SouthXkaege90-61-3460 Miscellaneous Notes* Telephone Encounter - Sara Munoz LPN - 03/14/2023 11:39 AM EDT Signed Handicap placard signed and mailed to patient per their request. * Telephone Encounter - Sara Munoz LPN - 03/14/2023 9:13 AM EDT Rx loaded * Telephone Encounter - Shaista Gramajo - 03/14/2023 9:07 AM EDT Name of caller: Isauro Contact phone number: [phone] Relationship to Patient: patient Provider: Argentina Practice: [...] return their call: Yes documented in this encounterSUC Medical CenterOdwrqf27-71-6752 Telephone encounter Note* Telephone Encounter - Sara Munoz LPN - 03/14/2023 9:13 AM EDT Rx loaded [facility] SouthKqudgu55-66-3188 Telephone encounter Note* Telephone Encounter - Shaista Gramajo - 03/14/2023 9:07 AM EDT Name of caller: Isauro Contact phone number: [phone] Relationship to Patient: patient Provider: [place] Practice: [...] to return their call: Yes [facility] SouthGgjnzu96-99-4970 Telephone encounter Note* Telephone Encounter - Kianna Stevenson - 03/02/2023 11:20 AM EDT Orders closed [facility] SouthVgxdrz42-21-2981 Miscellaneous Notes* Telephone Encounter - Kianna Stevenson [...] a CT. * Telephone Encounter - Sara Muonz LPN - 02/28/2023 4:16 PM EDT Placed [...] on order. Thank you documented in this encounterSUC Medical CenterWnrscq55-63-5443 Telephone encounter Note* Telephone Encounter - Sara [...] stated to get a CT. [facility] SouthWjzqmw10-77-8985 Telephone encounter Note* Telephone Encounter - Sara Munoz LPN - 02/28/2023 4:16 PM EDT Placed call to patient to discuss provider questions of: Call the patient and specifically ask her how many cigarettes she smokes on the average per day andhow long she has been doing it. Message left on voicemail to return call. [facility] SouthVmrjnq11-39-0634 Miscellaneous Notes* Telephone Encounter - Sara Munoz [...] on order. Thank you documented in this encounterSUC Medical CenterHkdoff92-45-7059 Telephone encounter Note* Telephone Encounter - Kianna Stevenson - 02/28/2023 9:33 AM EDT Pt doesn't fit criteria for a CT-Lung screen. Pt needs to have a 20 year smoking history of 1-pack a day or 15 year history with 2-pack a day. Can orders be cancelled? [facility]Pwjjgo19-35-5999 Telephone encounter Note* Telephone Encounter - Margarita Jones - 02/27/2023 1:33 PM EDT Patient called in and scheduled her CT Lung screening. The diagnosis code of F17.200 failed for Medical Necessity. Please correct diagnosis code on order. Thank you [facility] SouthUxcvxb76-08-4176 Miscellaneous Notes* Telephone Encounter - Margarita Robert - 02/27/2023 1:33 PM EDT Patient called in and scheduled her CT Lung screening. The diagnosis code of F17.200 failed for Medical Necessity. Please correct diagnosis code on order. Thank you documented in this [facility]05-12-2023 Telephone encounter Note* Telephone Encounter - Kianna Stevenson - 01/13/2023 10:29 AM EDT Orders pended for doctor's signature [facility] SouthGtptgz46-34-6904 Miscellaneous Notes* Telephone Encounter - Kianna Stevenson - 01/13/2023 10:29 AM EDT Orders pended for doctor's signature documented in this [facility]05-12-2023 History of Present illness Narrative* Gasper Nelson DO - 01/13/2023 9:30 AM EDT Images from the original note were not included. [facility] [address] [place] [id number] Visit type: Established Patient Reason for Visit: [...] of hips and knees. documented in this [facility]03-13-2023 History of Present illness Narrative* Siomara Estrada PA-C - 11/14/2022 11:40 AM EDT Images from the original note were not included. [address] [address] Dept: [phone] Dept Loc: [phone] Visit type: Established Patient Reason for Visit: Cough (X Monday ) and Sore Throat Assessment and Plan 1. 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 documented in this [facility]03-13-2023 Telephone encounter Note* Telephone Encounter - Sade Esteban RN - 11/14/2022 9:51 AM EDT Triage message reviewed with clinical staff. Patient appointment confirmed. Siomara will assess at appointment visit. [facility] SouthKwgtbl02-29-6180 Miscellaneous Notes* Telephone Encounter - Sade Esteban [...] (e.g., travel history, exposures) no Protocols used: [id number]-FFJRI-ED documented in this [facility]03-13-2023 Telephone encounter Note* Telephone Encounter - Jolanta [...] (e.g., travel history, exposures) no Protocols used: [id number] [facility] SouthInoffs11-50-7579 Telephone encounter Note* Telephone Encounter - Sara Munoz LPN - 10/20/2022 4:35 PM EST X-ray faxed to [facility] per patient request. Also called patient and let her know it was faxed. [facility] SouthIzjtad72-47-9634 Miscellaneous Notes* Telephone Encounter - Sara Munoz LPN - 10/20/2022 4:35 PM EST X-ray faxed to [facility] per patient request. Also called patient and let her know it was faxed. * Telephone Encounter - Shereen Stevens - 10/20/2022 3:06 PM EST Name of caller: Isauro Contact phone number: [phone] Relationship to Patient: patient Provider: Practice: [facility] Chief Complaint/Reason for Call: Patient calling and states [facility] did not get her ordersfor the x-ray. Patient requesting it be re sent. Patient did not have a fax number. Best time of day caller can be reached: any Patient advised that office/PCP has 24-48 business hours to return their call: no documented in this encounterS07 Aguilar StreetDqbxxj04-70-9475 Telephone encounter Note* Telephone Encounter - Shereen Stevens - 10/20/2022 3:06 PM EST Name of caller: Isauro Contact phone number: [phone] Relationship to Patient: patient Provider: Practice: [facility] Chief Complaint/Reason for Call: Patient calling and states [facility] did not get her ordersfor the x-ray. Patient requesting it be re sent. Patient did not have a fax number. Best time of day caller can be reached: any Patient advised that office/PCP has 24-48 business hours to return their call: no [facility] SouthVrumat54-45-0257 Telephone encounter Note* Telephone Encounter - Danish Davila DO - 10/18/2022 5:29 PM EST I called this patient regarding her chest x-ray. She states she went to [facility] but they did not have the order. According to the record the order was faxed. Patient will call the hospital and see if now have the order. [facility] SouthRohrak94-49-4789 Miscellaneous Notes* Telephone Encounter - Danish Davlia DO - 10/18/2022 5:29 PM EST I called this patient regarding her chest x-ray. She states she went to [facility] but they did not have the order. According to the record the order was faxed. Patient will call the hospital and see if now have the order. * Telephone Encounter - Sade Esteban RN - 10/17/2022 12:06 PM EST Faxed * Telephone Encounter - Justin Hoover - 10/17/2022 12:00 PM EST Name of caller: Shayy Contact phone number: [phone] Relationship to Patient: [facility] Provider: Dr. Davila Practice: [facility] Chief Complaint/Reason for Call: Shayy states the patient is currently at [facility] trying to complete her 10/03/22 XR [...] return their call: No documented in this encounterSUC Medical CenterBqrfrp11-15-3039 Telephone encounter Note* Telephone Encounter - Sade Esteban RN - 10/17/2022 12:06 PM EST Faxed [facility] SouthDjorah26-00-2239 Telephone encounter Note* Telephone Encounter - Justin Hoover - 10/17/2022 12:00 PM EST Name of caller: Shayy Contact phone number: [phone] Relationship to Patient: [facility] Provider: Dr. Davila Practice: [facility] Chief Complaint/Reason for Call: Shayy states the patient is currently at [facility] trying to complete her 10/03/22 XR [...] to return their call: No [facility] SouthRixgyc75-34-3788 Telephone encounter Note* Telephone Encounter - Danish [...] room. She is not interested. [facility] SouthOemcnq54-42-8151 Miscellaneous Notes* Telephone Encounter - Danish Davila [...] She is not interested. documented in this [facility]01-30-2023 History of Present illness Narrative* Danish Davila DO - 10/03/2022 8:30 AM EST Images from the original note were not included. [facility] [address] [id number] Chief Complaint: Ashley Gómez is an 67 [...] correction 20/20 20/25 20/20 documented in this [facility] Medical CenterDischar summary Author Wilfred Bryan [facility] Note Date/Time February 15, 2025 11:1 1am [facility] Medical Records Department [address] [place] [address] Emergency Department Summary 02/15/25 MR#: [id number] Acct: [id number] Name: ASHLEY GÓMEZ Rep #:[id number] : 1955 69 From: Wilfred Bryan MD [...] day. Additionally, sometimes she smokes as well. [facility] Medical History Wears dentures Wears glasses [...] none current occupational status: employed current occupation: [employer] Smoking Status: Current every day smoker tobacco [...] (Auto) 77.0 H Lymph % (Auto) 19.2 [place] % (Auto) 1.9 Eos % (Auto) 0.7 [...] 09:25 IMPRESSION: No acute process Reading Location: [facility] Management Discussion w/another healthcare provider: Hospitalist [...] DO [Primary Care Provider] - Print Language: Cape Verdean What to do if you have Problems For any increased pain, shortness of breath, bleeding, nausea or vomiting, chestpain, or any unexpected problems, contact your Primary Care Provider. Call [facility] ([phone]) or report to the closest Emergency Room. Call 911 if necessary. 02/15/25 1111 <Electronically signed by Wilfred Bryan MD> Cosigner Signature (if applicable): CC: Dr. Danish Davila DO ~ Signed [facility] Work Phone: Discharge summary Author Bunny Avilez [facility] Note Date/Time February 17, 2025 10:5 9am [facility] Medical Records Department [address] [place] [address] Instructions for Home/Discharge Instructions 02/17/25 1052 MR#: [id number] Acct: [id number] Name: ASHLEY GÓMEZ Rep #:[id number] : 1955 69 From: Bunny Avilez DO [...] CC: Dr. Danish Davila DO ~ Signed [facility] Work Phone: Discharge summary Author Nicko Mane-Elizabeth [facility] Note Date/Time March 06, 2025 9:31a m [facility] Medical Records Department [address] [place] [address] Emergency Department Summary 03/06/25 MR#: [id number] Acct: [id number] Name: RICOASHLEY Rep #:[id number] : 1955 69 From: Nicko zelayaett PCP: Dr. Gasper Nelson DO Status:RE G ER Location: ED HPI History of Present Illness Chief Complaint: Shortness of Breath Narrative Narrative: Chief complaint and HPI: Chronic epigastric abdominal pain and chronic shortnessof breath. 69-year-old female with past medical history of COPD, Tobacco use, Anxiety and Depression, GERD, anemia, HLD, GERD presents for evaluation of chronic epigastric abdominal pain and chronic shortness of breath. History taken by patient as well as medical record. Patient was discharged from the hospital yesterday afternoon. She was admitted with hematemesis and shortness of breath/acute hypoxia. She had an EGD performed by Dr. 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 Biopsied. Hiatal hernia. Plan was to continue PPI. Acute hypoxia was secondary to atelectasis and emphysema. Discharge note states the plan was to discharge the patient home on O2 however she did not qualify for it and therefore she was not prescribed it to her case management note. Patient statesthat she has continued to have chronic epigastric abdominal pain and chronic shortness of breath which is why she presents. She denies any fever, chills, chest pain, URI symptoms, cough, nausea, vomiting, dysuria, hematuria. Review of systems: See HPI Medications: As listed on the chart Allergies: As listed on the chart PFSH: Per chart Vital signs: As listed on the chart. Reviewed. Physical exam: Gen: A&O x3, NAD, cachectic Head: Normocephalic, atraumatic Eyes: No sclera icterus, conjunctiva clear ENT: Moist mucous membranes Neck: Trachea midline, No JVD CV: RRR, no murmurs, no peripheral edema Resp: Lungs CTA BL, no w/r/c GI: Abd soft, non-distended, minimal tenderness in the epigastrium, no r/r/g Musc: Full ROM, no deformity Skin: Warm, dry Neuro: Alert, oriented, grossly intact, sensation intact Psych: Cooperative, appropriate mood and affect [facility] Medical History Hypokalemia Smoker Hypoxia COPD exacerbation Wears dentures Wears glasses Post-menopausal Depression Arthritis [...] 08/08/13 0 02/15/25 History capsule,delayed release (Nexium) venlafaxine 150 mg 150 mg PO DAILY depression 0 03/20/24 02/15/25 History capsule,extended release 24 hr trazodone 50 mg tablet 150 mg (3 x 50 mg) PO QHS #1 5 tabs 02/17/25 Unknown Rx albuterol sulfate 90 mcg/actuation 2 puff inhalation Q 4H PRN 03/03/25 Unknown History aerosol inhaler shortness of breath or wheez ing nystatin 100,000 unit/mL oral 500,000 unit (5 mL) PO 4 X/DAY #300 03/05/25 Unknown Rx suspension mL Allergy/AdvReac Type Severity Reaction Status Date / Time Sulfa (Sulfonamide Allergy Hives Verified 03/06/25 05:57 Antibiotics) Family History Mother Pancreatic cancer Father COPD (chronic obstructive pulmonary disease) Brother Colon cancer Heart disease Sister Stomach cancer Brother Leukemia Surgical History History of tonsillectomy and adenoidectomy Hx of cholecystectomy Hx of appendectomy Hx of colonoscopy Social History household members: none current occupational status: employed current occupation: [employer] Smoking Status: Current every day smoker tobacco type: cigarettes Tobacco: How many years used: 4 alcohol intake: former substance use type: does not use EXAM Physical Exam Const Vital Signs: 03/06/25 05:54 03/06/25 06:09 Temperature 97.8 F Temperature Source Oral Pulse Rate 79 Respiratory Rate 22 H Respiratory Effort Normal Blood Pressure 172/76 H Blood Pressure Mean 108 Pulse Ox 88 Oxygen Delivery Method Room Air MDM MDM MDM Narrative Medical decision making narrative: 69-year-old female with past medical history of COPD, Tobacco use, Anxiety and Depression, GERD, anemia, HLD, GERD presents for evaluation of chronic epigastric abdominal pain and chronic shortness of breath. History taken by patient as well as discharge summary from hospitalist, see HPI. Patient was discharged yesterday after admission for hematemesis and shortness of breath/acute hypoxia. Had an EGD performed. Patient states she woke up today with her chronic epigastric abdominal pain and shortness of breath. Differential diagnosis includes but is not limited to chronic symptoms, pancreatitis, GERD, pneumonia, complication from EGD. Exam is not consistent with COPD exacerbation. On presentation, patient's oxygen was 88% on room air however quickly improved. GI cocktail, Pepcid ordered for epigastric abdominal pain. Laboratory workup ordered including CT abdomen pelvis and chest x-ray. CBC without leukocytosis or anemia. Platelets unremarkable. CMP relatively unremarkable except for hypokalemia. P.o. potassium ordered. No transaminitis. Lipase unremarkable. Chest x-ray and CT abdomen pelvis pending at this time. Patient signed out to oncoming physician, Dr. Castillo. Disposition pending results. Lab Data Labs: Laboratory Results - last 24 hr 03/06/25 06:22 WBC 10.8 RBC 4.66 Hgb 14.1 Hct 42.1 MCV 90.3 MCH 30.3 MCHC 33.5 RDW Std Deviation 43.6 RDW Coeff of Tr 13.2 Plt Count 170 MPV 10.6 Immature Gran % (Auto) 0.300 Neut % (Auto) 72.4 H Lymph % (Auto) 19.6 [place] % (Auto) 5.8 Eos % (Auto) 1.5 Baso % (Auto) 0.4 Absolute Neuts (auto) 7.8 H Absolute Lymphs (auto) 2.12 Nucleated RBC % 0 Differential Comment SCANNED Platelet Estimate ADEQUATE Sodium 138 Potassium 3.0 L Chloride 100 Carbon Dioxide 27.0 Anion Gap 11 BUN 24 H Creatinine 0.63 L Estim Creat Clear Calc 52.79 Est GFR (MDRD) Non-Af 95 BUN/Creatinine Ratio 38.7 H Glucose 153 H Calcium 9.8 Total Bilirubin 0.62 AST 25 ALT 22 Alkaline Phosphatase 65 Total Protein 6.5 Albumin 4.1 Globulin 2.4 Albumin/Globulin Ratio 1.7 Lipase 16 Discharge Plan Triage Chief Complaint: Shortness of Breath ED Provider: Nicko De Luna Dx/Rx/DC Orders Prescriptions: No Action venlafaxine 150 mg capsule,extended release 24hr 150 mg PO DAILY esomeprazole magnesium [Nexium] 20 MG capsule 40 mg PO DAILY Patient Comments: acid reflux trazodone 50 mg Tablet 150 mg PO QHS Qty: 15 0RF albuterol sulfate 90 mcg/actuation HFA aerosol inhaler 2 puff inhalation Q4H PRN (Reason: shortness of breath or wheezing) nystatin 100,000 unit/mL Suspension 500,000 unit PO 4X/DAY Qty: 300 0RF Primary Care Provider: Gasper Nelson Referrals: Gasper Nelson DO [Primary Care Provider] - Print Language: [place] What to do if you have Problems For any increased pain, shortness of breath, bleeding, nausea or vomiting, chestpain, or any unexpected problems, contact your Primary Care Provider. Call [facility] ([phone]) or report to the closest Emergency Room. Call 911 if necessary. 03/06/25 0755 <Electronically signed by Nicko De Luna DO> Cosigner Signature (if applicable): CC: Dr. Gasper Nelson DO ~ Signed ADDENDUM by Dr. Niko Castillo DO on 03/06/25 at 0931 Care of the patient was turned over to me pending CT and x-ray results. CT scanof the abdomen and pelvis was obtained. There is retrocardiac hiatal hernia andthickening of the distal esophagus suggesting reflux esophagitis. There is no free air or free fluid. There is no acute abdominal process noted. This was interpreted by the radiologist was also independently reviewed by myself. PA and lateral chest x- ray was obtained. There are 2 views. On my independent interpretation, lung baer are clear. There is normal cardiac silhouette. Bony thorax is normal. There is no acute process noted. Radiologist also interpreted the x-ray and agrees. Patient was stating she still had some persistent nausea. Patient states that Zofran was not helpful. Patient was given an injection of Phenergan. Patient was instructed to continue her Nexium as prescribed. Patient was instructed to follow-up with her primary care physician in 3 to 5 days. 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 Patient was instructed to return if worse in any way. Patient understood and was agreeable with plan. All questions were answered. 03/06/25 0931<Electronically signed by Niko Castillo DO> Cosigner Signature (if applicable): cc: Dr. Gasper Nelson, ~* Signed [facility] Work Phone: evaluation note* Diagnosis Menopause Symptomatic menopausal or female climacteric states documented in this encounter [facility] Work Phone: Evaluation noteNo assessment information available [facility] Work Phone: evaluation note* Diagnosis Chronic obstructive pulmonary disease, unspecified COPD type (HCC)- Primary Hypercholesterolemia Pure hypercholesterolemia Gastroesophageal reflux disease without esophagitis Esophageal reflux Smoker Tobacco use disorder Depression, unspecified depression type documented [facility]* Diagnosis Smoker Tobacco use disorder documented in this encounter [facility]* Diagnosis Chronic obstructive pulmonary disease, unspecified COPD type (HCC)- Primary documented in this encounter [facility]* Diagnosis Chronic obstructive pulmonary disease, unspecified COPD type (HCC)- Primary Depression, unspecified depression type Gastroesophageal reflux disease without esophagitis Esophageal reflux Hypercholesterolemia Pure hypercholesterolemia documented in this encounter [facility]* Diagnosis Moderate smoker (20 or less per day)- Primary Tobacco use disorder Smoker Tobacco use disorder documented in this encounter [facility]* Diagnosis Chronic obstructive pulmonary disease, unspecified COPD type (HCC)- Primary Depression, unspecified depression type Gastroesophageal reflux disease without esophagitis Esophageal reflux Hypercholesterolemia Pure hypercholesterolemia documented in this encounter [facility]* Diagnosis Smoker Tobacco use disorder Moderate smoker (20 or less per day) Tobacco use disorder documented in this encounter [facility]* Diagnosis COPD with acute exacerbation (HCC) Lower resp. tract infection Other diseases of respiratory system, not elsewhere classified documented in this encounter [facility]* Diagnosis Chronic obstructive pulmonary disease, unspecified COPD type (HCC)- Primary Abnormal CT scan of lung Hypercholesterolemia Pure hypercholesterolemia Colon cancer screening Special screening for malignant neoplasms, colon Breast cancer screening by mammogram Depression, unspecified depression type Gastroesophageal reflux disease without esophagitis Esophageal reflux Ex-smoker for less than 1 year documented in this encounter [facility]* Diagnosis Abnormal CT scan of lung- Primary Colon cancer screening Special screening for malignant neoplasms, colon Smoker Tobacco use disorder Family history of colon cancer Family history of malignant neoplasm of gastrointestinal tract documented in this encounter [facility]* Diagnosis Abnormal CT scan of lung Smoker Tobacco use disorder documented in this encounter [facility]* Diagnosis Medicare annual wellness visit, subsequent- Primary Cough, unspecified type Chronic obstructive pulmonary disease, unspecified COPD type (HCC) Anxiety Anxiety state, unspecified Depression, unspecified depression type Hypercholesterolemia Pure hypercholesterolemia Mammogram declined Colonoscopy refused documented in this encounter [facility]* Diagnosis COPD with acute exacerbation (CMS/HCC) (HCC)- Primary Lower resp. tract infection Other diseases of respiratory system, not elsewhere classified Smoking Tobacco use disorder documented in this encounter [facility]* Diagnosis Chronic obstructive pulmonary disease with acute exacerbation (HCC)- Primary Influenza Influenza with other respiratory manifestations documented in this encounter [facility]* Diagnosis Routine general medical examination at health care facility- Primary Routine general medical examination at a health care facility Encounter for screening mammogram for malignant neoplasm of breast Hypercholesterolemia Pure hypercholesterolemia Chronic obstructive pulmonary disease with acute exacerbation (HCC) Gastroesophageal reflux disease without esophagitis Esophageal reflux documented in this encounter [facility]* Diagnosis Routine general medical examination at health care facility- Primary Routine general medical examination at a health care facility Encounter for screening mammogram for malignant neoplasm of breast Hypercholesterolemia Pure hypercholesterolemia Chronic obstructive pulmonary disease with acute exacerbation (HCC) Gastroesophageal reflux disease without esophagitis Esophageal reflux Other insomnia documented in this encounter [facility]* Diagnosis Routine general medical examination at health care facility- Primary Routine general medical examination at a health care facility Encounter for screening mammogram for malignant neoplasm of breast Hypercholesterolemia Pure hypercholesterolemia Chronic obstructive pulmonary disease with acute exacerbation (HCC) Gastroesophageal reflux disease without esophagitis Esophageal reflux Chronic obstructive pulmonary disease with acute exacerbation (HCC) documented in this encounter [facility]* Diagnosis Routine general medical examination at health care facility- Primary Routine general medical examination at a health care facility Encounter for screening mammogram for malignant neoplasm of breast Hypercholesterolemia Pure hypercholesterolemia Chronic obstructive pulmonary disease with acute exacerbation (HCC) Gastroesophageal reflux disease without esophagitis Esophageal reflux Other insomnia documented in this encounter [facility]* Diagnosis Routine general medical examination at health care facility- Primary Routine general medical examination at a health care facility Encounter for screening mammogram for malignant neoplasm of breast Hypercholesterolemia Pure hypercholesterolemia Chronic obstructive pulmonary disease with acute exacerbation (HCC) Gastroesophageal reflux disease without esophagitis Esophageal reflux Other insomnia [facility] Diagnosis Routine general medical examination at health care facility- Primary Routine general medical examination at a health care facility Encounter for screening mammogram for malignant neoplasm of breast Hypercholesterolemia Pure hypercholesterolemia Chronic obstructive pulmonary disease with acute exacerbation (HCC) Gastroesophageal reflux disease without esophagitis Esophageal reflux Chronic obstructive pulmonary disease with acute exacerbation (HCC) documented [facility] Diagnosis Routine general medical examination at health care facility- Primary Routine general medical examination at a [facility] care facility Encounter for screening mammogram for malignant neoplasm of breast Hypercholesterolemia Pure hypercholesterolemia Chronic obstructive pulmonary disease with acute exacerbation (HCC) Gastroesophageal reflux disease without esophagitis Esophageal reflux Other insomnia [facility]* Diagnosis Onset Date Resolution Status Admit Date Hypokalemia acute February 15 11:21am Hypoxia acute February 15 11:21am Smoker acute February 15 11:21am COPD exacerbation chronic February 152024 11:21am [facility] Work Phone: reason for referral (narrative)No reason for [facility]: reason for visit Narrative* Imaging (Routine) - Closed Specialty Diagnoses / Procedures Referred By Anisa t Referred To Contact Radiology Diagnoses Abnormal CT scan of lung Smoker Procedures CT lung screening follow up low dose Gasper Nelson F, DO 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 No February 15, 2025 8:36am Advance Directives No May 10:10pm Advance Directive Response Recorded Date/ Time Do you have a Healthcare Power of Tobacco Stemmer Machine? No February 15, 2025 11:58am Advance Directives No May 10:10pm Advance Directive Response Recorded Date/ Time Do you have a Healthcare Power of Tobacco Stemmer Machine? No February 15, 2025 11:58am Do you have a Healthcare Power of Tobacco Stemmer Machine? No March 02, 2025 11:53pm Advance Directives No May 10:10pm Advance Directive Response Recorded Date/ Time Do you have a Healthcare Power of Tobacco Stemmer Machine? No February 15, 2025 11:58am Do you have a Healthcare Power of Tobacco Stemmer Machine? No March 03, 2025 4:02am Advance Directives No May 10:10pm Advance Directive Response Recorded Date/ Time Do you have a Healthcare Power of Tobacco Stemmer Machine? No February 15, 2025 11:58am Do you have a Healthcare Power of Tobacco Stemmer Machine? No March 06, 2025 5:56am Do you have a Healthcare Power of Tobacco Stemmer Machine? No March 03, 2025 4:02am Advance Directives No May 10:10pm Reason for Referral Specialty Diagnoses / Procedures Referred By Anisa arias Referred To Contact Radiology Diagnoses Menopause Procedures DEXA Bone Density Axial Skeleton Danish Davila, DO [address] [place] [id number] Referral ID Status Reason Start Date Expiration Date Visits Re quested Visits Authorized [id number] Open 06/07/2021 06/07/2022 1 1 Specialty Diagnoses / Procedures Referred By Contac t Referred To Contact Radiology Diagnoses Smoker Procedures CT lung screening low dose [place] Gasper Serrano, DO [address] [place] [address] Referral ID Status Reason Start Date Expiration Date V isits Requested Visits Authorized [id number] Pending Review 01/13/2023 07/12/2023 1 1 Specialty Diagnoses / Procedures Referred By Contac t Referred To Contact Radiology Diagnoses Smoker Moderate smoker (20 or less per day) Procedures CT lung screening low dose [place] Gasper Serrano, DO [address] [place] [address] Referral ID Status Reason Start Date Expiration Date V isits Requested Visits Authorized [id number] Pending Review 08/01/2023 07/31/2024 1 1 Referral ID Status Reason Start Date Expiration Date Visits Re quested Visits Authorized [id number] Closed 08/01/2023 07/31/2024 1 1 Specialty Diagnoses / Procedures Referred By Contac t Referred To Contact Diagnoses Chronic obstructive pulmonary disease, unspecified COPD type (HCC) Procedures Complete PFT pre and post bronchodilator [place] Gasper Maggie, DO [address] [place] [address] Referral ID Status Reason Start Date Expiration Date V isits Requested Visits Authorized [id number] Pending Review 02/22/2024 02/16/2025 1 1 Specialty Diagnoses / Procedures Referred By Contac t Referred To Contact Radiology Diagnoses Abnormal CT scan of lung Smoker Procedures CT lung screening follow up low dose [place] Gasper Serrano, DO [address] [place] [address] Referral ID Status Reason Start Date Expiration Date V isits Requested Visits Authorized [id number] Pending Review 02/22/2024 02/21/2025 1 1 Specialty Diagnoses / Procedures Referred By Contac t Referred To Contact Gastroenterology Diagnoses Colon cancer screening Procedures [facility] HIGH MDM 60 MINUTES Gasper Nelson F, DO [address] [place] [address] [address], [address] [place] [address] Referral ID Status Reason Start Date Expiration Date Visits Requested Visits Authorized [id number] Pending Review Specialty Services Required 02/22/2024 02/21/2025 [...] February 3:30am Non-ST elevated myocardial infarction Ju sd 2024 3:30am History of COPD March 03, 2025 3:30 am Chief Complaint Admit Date EXACERBATION OF COPD, HYPOXIA February 15, 2025 11:21am EXACERBATION OF COPD, HYPOXIA February 15, 2025 2:59pm EXACERBATION OF COPD, HYPOXIA February 16, 2025 11:17am EXACERBATION OF COPD, HYPOXIA February 17, 2025 10:59am ? GI BLEED, HYPOXIA, GERALDO, ELEVATED TROP March 03, 2025 3:30am ? GI BLEED, HYPOXIA, GERALDO, ELEVATED TROP March 03, 2025 12:23pm ? GI BLEED, HYPOXIA, GERALDO, ELEVATED TROP March 04, 2025 12:15pm ? GI BLEED, HYPOXIA, GERALDO, ELEVATED TROP March 05, 2025 7:27am Reason for Visit Admit Date COPD exacerbation February 15, 2025 11:2 1am Hypokalemia February 15, 2025 11:2 1am Hypoxia February 15, 2025 11:2 1am Smoker February 15, 2025 11:2 1am Hematemesis March 03, 2025 3:30 am Hypoxemia March 03, 2025 3:30 am Intractable nausea and vomiting February 3:30am Non-ST elevated myocardial infarction 2024 3:30am History of COPD March 03, 2025 3:30 am Chief Complaint Admit Date EXACERBATION OF COPD, HYPOXIA February 15, 2025 11:21am EXACERBATION OF COPD, HYPOXIA February 15, 2025 2:59pm EXACERBATION OF COPD, HYPOXIA February 16, 2025 11:17am EXACERBATION OF COPD, HYPOXIA February 17, 2025 10:59am ? GI BLEED, HYPOXIA, GERALDO, ELEVATED TROP March 03, 2025 3:30am ? GI BLEED, HYPOXIA, GERALDO, ELEVATED TROP March 03, 2025 12:23pm ? GI BLEED, HYPOXIA, GERALDO, ELEVATED TROP March 04, 2025 12:15pm ? GI BLEED, HYPOXIA, GERALDO, ELEVATED TROP March 05, 2025 7:27am SOB March 06, 2025 5:52a m Additional Source Comments INFORMATION SOURCE (unrecogn ized section and content) DATE CREATED AUTHOR 10/12/2021 [facility] DATE CREATED AUTHOR AUTHOR'S ORGANIZ ATION 01/19/2022 [facility] DATE CREATED AUTHOR AUTHOR'S ORGANIZ ATION 02/25/2025 [facility] DATE CREATED AUTHOR AUTHOR'S ORGANIZ ATION 03/05/2025 [facility] Care Teams (unrecognized sec [...] Provider Active S tart: February 16, 2025 Environmental Services Technician Relationship Specialty Start Date End Date Danish Davila DO [address] [place] [address] PCP - General Family Medicine 03/24/20 Team Status: Active Member Role Status Dates Dr. Aaron Zepeda MD Family Provider Active Dr. Danish Davila DO Primary Care Provider Active Team Status: Inactive Member Role Status Dates Dr. Danish Davila DO Primary Care Provider, Attendin g Provider Active Environmental Services Technician Relationship Specialty Start Date End Date Danish Davila DO [address] [place] [address] PCP - General 03/24/20 Environmental Services Technician Relationship Specialty Start Date End Date Gasper Nelson Maggie, DO [address] [place] [address] PCP - General Family Medicine 01/13/23 Environmental Services Technician Relationship Specialty Start Date End Date Gasper Nelson, DO [address] [place] [address] PCP - General Family Medicine 01/13/23 Environmental Services Technician Relationship Specialty Start Date End Date Gasper Nelson, DO [address] [place] [address] PCP - General Family Medicine 01/13/23 Environmental Services Technician Relationship Specialty Start Date End Date Gasper Nelson DO [address] [place] [address] PCP - General Family Medicine 01/13/23 Environmental Services Technician Relationship Specialty Start Date End Date Gasper Nelson MaggieDO [address] [place] [address] PCP - General Family Medicine 01/13/23 Environmental Services Technician Relationship Specialty Start Date End Date Gasper Nelson DO [address] [place] [address] PCP - General Family Medicine 01/13/23 Environmental Services Technician Relationship Specialty Start Date End Date Gasper Nelson DO [address] [facility] [address] [place] [phone] PCP - General Family Medicine 01/13/23 Environmental Services Technician Relationship Specialty Start Date End Date Gasper Nelson DO [address] [place] [phone] PCP - General Family Medicine 01/13/23 Environmental Services Technician Relationship Specialty Start Date End Date ArgentinaGasper, DO [address] [place] [phone] PCP - General Family Medicine 01/13/23 Environmental Services Technician Relationship Specialty Start Date End Date [place] Gasper Serrano, DO [address] [place] [phone] PCP - General Family Medicine 01/13/23 Environmental Services Technician Relationship Specialty Start Date End Date [place] Gasper Serrano, DO [address] [place] [phone] PCP - General Family Medicine 01/13/23 Environmental Services Technician Relationship Specialty Start Date End Date [place] Gasper Serrano, DO [address] [place] [phone] PCP - General Family Medicine 01/13/23 Environmental Services Technician Relationship Specialty Start Date End Date [place] Gasper Serrano, DO [address] [place] [phone] PCP - General Family Medicine 01/13/23 Environmental Services Technician Relationship Specialty Start Date End Date Argentina Gasper Serrano, DO [address] [place] [phone] PCP - General Family Medicine 01/13/23 Environmental Services Technician Relationship Specialty Start Date End Date Argentina Gasper Serrano, DO [address] [place] [phone] PCP - General Family Medicine 01/13/23 Environmental Services Technician Relationship Specialty Start Date End Date Argentina Gasper SerranoDO [address] [place] [phone] PCP - General Family Medicine 01/13/23 Environmental Services Technician Relationship Specialty Start Date End Date Argentina Gasper Serrano, DO [address] [place] [phone] PCP - General Family Medicine 01/13/23 Environmental Services Technician Relationship Specialty Start Date End Date Argentina Gasper Serrano, [address] [place] [phone] PCP - General Family Medicine 01/13/23 Environmental Services Technician Relationship Specialty Start Date End Date Gasper Nelson Maggie, [address] [place] [phone] PCP - General Family Medicine 01/13/23 Environmental Services Technician Relationship Specialty Start Date End Date Argentina Gasper Serrano, [address] [place] [phone] PCP - General Family Medicine 01/13/23 Environmental Services Technician Relationship Specialty Start Date End Date Gasper Nelson Maggie, DO [address] [place] [phone] PCP - General Family Medicine 01/13/23 Environmental Services Technician Relationship Specialty Start Date End Date Danish Davila, DO [address] [place] [id number] PCP - General 03/24/20 Environmental Services Technician Relationship Specialty Start Date End Date Danish Davila DO [address] [place] [address] PCP - General 03/24/20 Environmental Services Technician Relationship Specialty Start Date End Date Danish Davila DO [address] [place] [address] PCP - General 03/24/20 Environmental Services Technician Relationship Specialty Start Date End Date Danish Davila DO [address] [place] [address] PCP - General 03/24/20 Environmental Services Technician Relationship Specialty Start Date End Date Gasper Nelson, [address] [place] [phone] PCP - General Family Medicine 01/13/23 Environmental Services Technician Relationship Specialty Start Date End Date Gasper Nelson DO [address] [place] [phone] PCP - General Family Medicine 01/13/23 Environmental Services Technician Relationship Specialty Start Date End Date Gasper Nelson, [address] [place] [phone] PCP - General Family Medicine 01/13/23 Environmental Services Technician Relationship Specialty Start Date End Date Gasper Nelson, [address] [place] [phone] PCP - General Family Medicine 01/13/23 Environmental Services Technician Relationship Specialty Start Date End Date Gasper Nelson, [address] [place] [address] PCP - General Family Medicine 01/13/23 Environmental Services Technician Relationship Specialty Start Date End Date Gasper Nelson DO [address] [place] [address] PCP - General Family Medicine [...] February 16, 2025 Dr. Bunny Avilez , Other Provider Active S tart: February 16, [...] Status: Active Member Role/Relationship Status Dates Dr. Abdulkadir Peralta DO Emergency Provider Active S tart: March 03, 2025 Dr. Gasper Nelson DO Primary Care Provider Active Start: March 03, 2025 Dr. Tonja Jo MD Admit Provider Active St art: March 03, 2025 Dr. Tonja Jo MD Attending Provider Active Start: March 03, 2025 Team Status: Inactive Member Role/Relationship Status Dates Dr. Abdulkadir Peralta DO Emergency Provider Active S tart: March 03, 2025 End: March 05, 2025 Dr. Gasper Nelson DO Primary Care Provider Active Start: March 03, 2025 End: March 05, 2025 Dr. Tonja Jo MD Admit Provider Active St art: March 03, 2025 End: March 05, 2025 Dr. Tonja Jo MD Other Provider Active St art: March 03, 2025 End: March 05, 2025 Dr. Kelvin Falk MD Attending Provider Active Start: March 03, 2025 End: March 05, 2025 Dr. Bunny Avilez DO Other Provider Active S tart: March 03, 2025 End: March 05, 2025 Team Status: Active Member Role/Relationship Status Dates Dr. Gasper Nelson DO Primary Care Provider Active Start: March 03, 2025 Dr. Elisabet Ponce MD Attending Provider Active Start: March 03, 2025 Team Status: Active Member Role/Relationship Status Dates Dr. Abdulkadir Peralta , DO Emergency Provider Active S tart: March 03, 2025 Dr. Gasper Nelson , DO Primary Care Provider Active Start: March 03, 2025 Dr. Tonja Jo MD Admit Provider Active St art: March 03, 2025 Dr. Tonja Jo MD Other Provider Active St art: March 03, 2025 Dr. Bunny Avilez , DO Other Provider Active S tart: March 03, 2025 Dr. Slim Weiss , DO Attending Provider Active Start: March 03, 2025 Team Status: Active Member Role/Relationship Status Dates Dr. Abdulkadir Peralta DO Emergency Provider Active S tart: March 04, 2025 Dr. Gasper Nelson , DO Primary Care Provider Active Start: March 04, 2025 Dr. Tonja Jo MD Admit Provider Active St art: March 04, 2025 Dr. Tonja Jo MD Other Provider Active St art: March 04, 2025 Dr. Kelvin Falk MD Attending Provider Active Start: March 04, 2025 Dr. Kelvin Falk MD Other Provider Active Star t: March 04, 2025 Dr. Bunny Avilez , DO Other Provider Active S tart: March 04, 2025 Team Status: Active Member Role/Relationship Status Dates Dr. Abdulkadir Peralta DO Emergency Provider Active S tart: March 05, 2025 Dr. Gasper Nelson DO Primary Care Provider Active Start: March 05, 2025 Dr. Tonja Jo MD Admit Provider Active St art: March 05, 2025 Dr. Tonja Jo MD Other Provider Active St art: March 05, 2025 Dr. Kelvin Falk MD Attending Provider Active Start: March 05, 2025 Dr. Kelvin Falk MD Other Provider Active Star t: March 05, 2025 Dr. Bunny Avilez DO Other Provider Active S tart: March 05, 2025 Team Status: Inactive Member Role/Relationship Status Dates Dr. Gasper Nelson DO Primary Care Provider Active Start: March 06, 2025 End: March 06, 2025 Dr. Niko Castillo , DO Emergency Provider Active Start: March 06, 2025 End: March 06, 2025 Goals (unrecognized section and content) Goals [...] Comments Follow-up New to provider, 4 m [facility] med check Reason Onset Date [...] low dose Gasper Nelson F, DO [address] [place] [address] Referral ID Status Reason Start Date Expiration Date Visits Re quested Visits Authorized [id number] Closed 08/01/2023 07/31/2024 1 1 Reason Onset Date Comments Error (VOID this visit) 12/21/2023 Reason Onset Date Comments Appointment 12/22/2023 [facility] Reason Onset Date Comments Med Refill 12/21/2023 [...] BE BASED ON THE PRIMARY CLINICAL RECORDS. [facility] [facility]. provides no warranty or guarantee of the accuracy or completeness of information in this document.
[2025-03-07 13:56] LABS: Hematocrit 42.1 % (37-47); Hemoglobin 14.3 g/dL (12.0-15.0); Immature Granulocytes Count 0.060 X10^3/uL (0.0-0.0); Mean Corp Hgb Conc 34.0 g/dL (32-36); Mean Corpuscular Volume 89.8 fL (81-99); Mean Platelet Vol. 10.5 fl (6.2-12.0); NRBC Flagged by Analyzer 0 % (0-5); Platelet Count 241 K/mm3 (150-450); RBC Distribution Width CV 13.2 % (11.6-14.6); RBC Distribution Width SD 42.8 fl (35.1-43.9); Red Blood Count 4.69 M/mm3 (4.2-5.4); White Blood Count 16.6 K/mm3 (4.4-11.0)
[2025-03-07 14:29] LABS: Anion Gap 14 (5-15); BUN 55 mg/dL (4-19); BUN/Creat Ratio 52.3 RATIO (10-20); Calcium,Total 9.4 mg/dL (7.6-11.0); Carbon Dioxide 27.3 mmol/L (21.0-32.0); Chloride 95 mmol/L (98-108); Estimated Creatinine Clearance 39.21 ml/min (50-250); Glucose 143 mg/dL (70-99); Potassium 4.5 mmol/L (3.3-5.1); Troponin T High Sensitivity 63 ng/L (<=14)
--- NOTE | 2025-03-07 14:36 | CT_ITS ---
EXAM: CT Angiography Chest Without and With Intravenous Contrast CLINICAL INDICATION: DYSPNEA TECHNIQUE: Axial computed tomographic angiography images of the chest without and with intravenous contrast. This CT exam was performed using one or more of the following dose reduction techniques: automated exposure control, adjustment of the mA and/or kV according to patient size, and/or use of iterative reconstruction technique. MIP reconstructed images were created and reviewed. COMPARISON: No relevant prior studies available. FINDINGS: PULMONARY ARTERIES: Unremarkable. No pulmonary embolism. AORTA: No acute findings. No thoracic aortic aneurysm. LUNGS AND PLEURAL SPACES: Lung emphysema/COPD. Right middle lobe and lingula atelectasis or scarring. 3 mm nodule of the lateral left upper lobe. No significant effusion. No pneumothorax. HEART: Unremarkable. No cardiomegaly. No significant pericardial effusion. No evidence of RV dysfunction. MEDIASTINUM: Distended esophagus with air-fluid level. Aspiration precaution is recommended. BONES/JOINTS: No acute fracture. No dislocation. SOFT TISSUES: Unremarkable. LYMPH NODES: Unremarkable. No enlarged lymph nodes. CT/CTA Chest W/WO Contrast IMPRESSION: 1. No pulmonary embolism. 2. Distended esophagus with air-fluid level. Aspiration precaution is recomme nded. 3. Continue low-dose CT scan of the chest in 12 months is recommended. 4. Lung emphysema/COPD. Right middle lobe and lingula atelectasis or scarring . 3 mm nodule of the lateral left upper lobe. Reading Location: [id number]
--- NOTE | 2025-03-07 15:22 | ED.RN ---
pt requested to get up and go to the bathroom, nurse got oxygen take and got pt up to the side of the bed. pt walked from bedside to the door when pt then states shes going to pass out( dizzy, light headed, lost all color sweaty, tunnel vision.) nurse grabbed pt and called for help pt placed in a chair and assisted x2 back into bed. pt placed on bedpan.
[2025-03-07] MEDS: 0.9% Normal Saline (1000mL) 1,000 ML 999 ML IV ×2 (15:45→16:35)
[2025-03-07 15:57] LABS: Pro- Brain NATRIURETIC PEPTIDE 3463 pg/mL (<=900)
--- NOTE | 2025-03-07 17:03 | HP.PCM.HOS_ITS ---
HPI - General General Date of Admission: 03/07/25 Date of Service: 03/07/25 Chief Complaint: Fatigue with weakness, poor p.o. intake HPI Narrative JACQUELINE GÓMEZ, is a 69 F who presented to [facility] ED on 03/07/25 with fatigue with weakness and poor p.o. intake. Patient was recently hospitalized here from 03/03-03/05. She presented at that time with vomiting and concern for hematemesis. EGD showed esophageal mucosal changes secondary to established long segment Franks's disease as well as retained stomach contents; no source of bleeding noted. She was found to be hypoxic on that admission as well. Has history of COPD with emphysema. Was thought that she would qualify for supplemental oxygen on discharge but on oxygen testing on day of discharge, her oxygen only dropped to 90% on exertion so she did not qualify. She returned to the ED on 03/[address] with [address] abdomen pelvis showed thickening of the distal esophagus suggesting reflux esophagitis but was otherwise benign. Workup was otherwise fairly unremarkable and she was discharged home. She presented to the ED again today with worsening weakness and poor p.o. intake. States that she was hardly able to get herself out of bed this morning. She has not been eating or drinking much at all for fear that she will vomit. She denies any acute aspiration events that she is aware of but does note that she has reflux coming back into her throat that she swallows again frequently. On review of recent hospitalization, patient had a 6 clicks scores of 17 which was borderline. She has not seen PT, OT or speech therapy recently. She was hypoxic to 88% on room air at rest and had an elevated troponin level, though notably this troponin was decreased from previous. CTA chest showed no PE but did show distended esophagus with air-fluid level making her high risk for aspiration. Given these concerns, hospitalist was contacted for admission. I saw the patient at bedside in the ED. Patient was fatigued, frail and weak appearing but was otherwise sitting back fairly comfortably in bed and in no acute distress. She reported feeling cold but otherwise denied any pain or discomfort currently. No other acute concerns at this time. Will be admitted for further management. [facility] Medical History Hypokalemia Smoker Hypoxia COPD exacerbation Wears dentures Wears glasses Post-menopausal Depression Arthritis Anemia Gastric reflux Former smoker Hoarseness History of stress test Osteopenia COPD (chronic obstructive pulmonary disease) Family hx of colon cancer Nausea & vomiting Diarrhea Pathologic pelvic fracture Chronic anemia GERD (gastroesophageal reflux disease) Depression Home Medications ?Medication ?Instructions ?Recorded ?Last Taken ?Type esomeprazole magnesium 20 mg 40 mg PO DAILY 08/08/13 0 02/15/25 History capsule,delayed release (Nexium) venlafaxine 150 mg 150 mg PO DAILY depression 0 03/20/24 02/15/25 History capsule,extended release 24 hr trazodone 50 mg tablet 150 mg (3 x 50 mg) PO QHS #1 5 tabs 02/17/25 Unknown Rx albuterol sulfate 90 mcg/actuation 2 puff inhalation Q 4H PRN 03/03/25 Unknown History aerosol inhaler shortness of breath or wheez ing nystatin 100,000 unit/mL oral 500,000 unit (5 mL) PO 4 X/DAY #300 03/05/25 Unknown Rx suspension mL ondansetron 4 mg disintegrating 4 mg PO Q8H PRN PRN Na usea #10 tabs 03/06/25 Unknown Rx tablet Allergy/AdvReac Type Severity Reaction Status Date / Time Sulfa (Sulfonamide Allergy Hives Verified 03/07/25 13:19 Antibiotics) Family History Mother Pancreatic cancer Father COPD (chronic obstructive pulmonary disease) Brother Colon cancer Heart disease Sister Stomach cancer Brother Leukemia Surgical History History of tonsillectomy and adenoidectomy Hx of cholecystectomy Hx of appendectomy Hx of colonoscopy Social History household members: none current occupational status: employed current occupation: [employer] Smoking Status: Current every day smoker tobacco type: cigarettes Tobacco: How many years used: 4 alcohol intake: former substance use type: does not use ROS Constitutional Constitutional: Reports chills, fatigue and weakness; Denies fever(s) Eyes Eyes: Denies change in vision Cardiovascular Cardiovascular: Denies chest pain, edema, lightheadedness or orthopnea Respiratory/Chest Respiratory/Chest: Reports shortness of breath at rest and shortness of breath with exertion; Denies wheezing Gastrointestinal Gastrointestinal: Reports abdominal pain, dyspepsia and nausea; Denies constipation, diarrhea or vomiting Musculoskeletal Musculoskeletal: Denies arthralgias or myalgias Neurologic Neurologic: Denies dizziness, focal weakness or headache(s) Vital Signs Vital Signs Vital Signs: 03/07/25 13:14 03/07/25 13:17 03/07/25 14:17 Temperature 97.8 F 97.8 F 97.9 F Temperature Source Oral Oral Oral Pulse Rate 102 H 98 99 Respiratory Rate 18 18 18 Respiratory Pattern Blood Pressure 84/59 L 84/59 L 100/69 Blood Pressure Mean 67 67 79 Pulse Ox 98 99 100 Oxygen Delivery Method Nasal Cannula Nasal Cannula Nasal Cannula Oxygen Flow Rate (L/min) 2 2 2 03/07/25 15:17 03/07/25 15:45 03/07/25 16:00 Temperature 97.9 F 98 F Temperature Source Oral Oral Pulse Rate 99 50 L 85 Respiratory Rate 18 17 14 Respiratory Pattern Normal Blood Pressure 88/55 L 114/83 H Blood Pressure Mean 66 93 Pulse Ox 100 100 Oxygen Delivery Method Nasal Cannula Room Air Oxygen Flow Rate (L/min) 2 Weight Weight: 50.3 kg Body Mass Index (BMI) 19.0 Physical Exam Const alert, oriented x3 and no apparent distress Constitutional Narrative: Elderly female, weak and frail appearing, fatigued appearing, otherwise sitting back fairly comfortably in bed, conversing normally, in no acute distress. General Appearance: cooperative and comfortable HEENT normocephalic, head/scalp atraumatic, hearing grossly normal bilaterally, nasal mucous membranes and turbinates normal and moist oral mucous membranes Eyes PERRL, EOMs intact bilaterally and conjunctivae normal Neck full ROM Chest inspection of chest normal Resp normal respiratory effort, normal air movement, no use of accessory muscles and clear to auscultation bilaterally Cardio regular rate, regular rhythm, no murmurs and peripheral pulses 2+ throughout GI normal to inspection, nondistended, normoactive bowel sounds, soft to palpation, non-tender and non-distended Back/Spine normal ROM Extremity normal to inspection, full ROM and no pedal edema Skin no rashes or lesions noted Psych mental status grossly normal Results Lab / Micro Data 03/07/25 13:50 03/07/25 13:50 Labs: Laboratory Results - last 24 hr 03/07/25 13:50: WBC 16.6 H, RBC 4.69, Hgb 14.3, Hct 42.1, MCV 89.8, MCH 30.5, MCHC 34.0, RDW Std Deviation 42.8, RDW Coeff of Tr 13.2, Plt Count 241, MPV 10.5, Immature Gran % (Auto) 0.400, Neut % (Auto) 72.0 H, Lymph % (Auto) 21.1, [place] % (Auto) 5.7, Eos % (Auto) 0.5, Baso % (Auto) 0.3, Absolute Neuts (auto) 12.0 H, Absolute Lymphs (auto) 3.51, Nucleated RBC % 0, Sodium 136, Potassium 4.5, Chloride 95 L, Carbon Dioxide 27.3, Anion Gap 14, BUN 55 H, Creatinine 1.06, Estim Creat Clear Calc 39.21 L, Est GFR (MDRD) Non-Af 57 L, BUN/Creatinine Ratio 52.3 H, Glucose 143 H, Calcium 9.4, Troponin T High Sens 63 H* D 03/07/25 14:10: Lactic Acid Cancelled 03/07/25 15:20: Lactic Acid 2.3 H*, NT pro BNP II 3463 H Imaging Radiology Impression Chest X-Ray 03/07/25 13:55 IMPRESSION: No acute cardiopulmonary process. Reading Location: [facility] Chest CTA 03/07/25 14:36 IMPRESSION: 1. No pulmonary embolism. 2. Distended esophagus with air-fluid level. Aspiration precaution is recommended. 3. Continue low-dose CT scan of the chest in 12 months is recommended. 4. Lung emphysema/COPD. Right middle lobe and lingula atelectasis or scarring. 3 mm nodule of the lateral left upper lobe. Reading Location: [facility] Assessment & Plan Assessment/Plan (1) Weakness: (2) Dehydration: PLAN: Plan Patient is a 69-year-old female who presented [facility] ED on 03/07/2025 with worsening fatigue with weakness and poor p.o. intake. 1. Acute on chronic debility ? Admit under inpatient status to PCU. PT/OT/case management consulted. Patient with multiple recent ED visits and hospitalizations. Lives at home alone. During recent hospitalization had borderline 6 clicks score but was amenable to going home with no therapy. Suspect patient will need either home health care or SNF on discharge. Appreciate therapy recommendations. 2. GERD with Franks's esophagus, recent poor p.o. intake with retained gastric/esophageal contents and concern for aspiration, underweight BMI with concern for malnutrition ? Recent hospitalization from 03/03-03/05 where patient presented with vomiting and concern for hematemesis. EGD showed long segment Franks's esophagus with retained gastric contents. Patient reports poor p.o. intake since then that she attributes to concern for vomiting with p.o. intake. CTA chest on this admission showed air-fluid level in the esophagus with high risk for aspiration. Gave patient 1 dose of IV Reglan in the ED. Will consult speech therapy and keep patient n.p.o. status for now. Nutrition services also consulted for concern for malnutrition. 3. Mild GERALDO with dehydration ? Creatinine 1.06 on admit, baseline around 0.6. Presume secondary to recent poor p.o. intake. Given 2 L of IV fluids in the ED. follow-up a.m. BMP and monitor urine output. Notably patient did have elevated BNP level of 3000 on admit. Recent echo on 03/03 showed EF 60 to 65%, posterior mitral valve leaflet prolapse but no signs of heart failure or atrial enlargement. Patient was dry appearing on exam so unsure what to make of elevated BNP level at this time. 4. Mild acute hypoxia in setting of COPD with emphysema ? Patient was hypoxic to 88% on room air at rest in the ED. Was hypoxic during recent admission but on oxygen testing on day of discharge, saturation dropped to only 90% with exertion so she did not qualify for home oxygen. CTA chest showed no PE and no signs of acute pneumonia. Suspect hypoxia is more chronic in nature in setting of COPD with emphysema. Continue home inhalers. 5. Anxiety/depression ? Continue home venlafaxine and trazodone at night. 6. Tobacco abuse ? Patient reports quitting smoking about 2 to 3 weeks ago. Encouraged cessation. DVT prophylaxis: Lovenox CODE STATUS: Full code, verified Expected disposition: TBD Total clinical time spent by myself addressing the patient's medical issues, reviewing all the data, and collaborating with patient's care team: 75 minutes. Charges/Coding Visit Charges Inpatient E&M: 26188 Init Hosp L3
[2025-03-07 17:10] LABS: Mucous, Urine 0 SEEN /hpf (<or=2+); Red Blood Cells-Urine 0 SEEN /hpf (0-5); Squamous Epithelial Cells - UA 0 SEEN /hpf (5-10)
[2025-03-07 17:12] LABS: Color, Urine Yellow (Yellow); Glucose, Dipstick Normal (Normal); Ketone-Dipstick Negative (Negative); Leukocyte Esterase-Dipstick Negative /ul (Negative); Nitrite-Dipstick Negative (Negative); Occult Blood-Urine 10 /ul (Negative); Protein-Dipstick 15 mg/dl (Negative); Specific Gravity, Urine 1.010 (1.002-1.030); Urine Bilirubin Dipstick Negative (Negative)
--- OUTSIDE RECORDS SUMMARY | 2025-03-07 17:23 | XMS RPT_ITS | CCD ---
Author Organization [facility] CliniSyar Care Team Providers Care 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 Name Role Phone Danish Davila DO Primary [...] Unavailable Dr. Abdulkadir Peralta DO Emergency Provider [phone] Dr. Gasper Nelson DO Primary Care Provider [...] Attending Unavailable Mathewjohno, Danish Primary Care Unavailable Elisabet oPnce Attending Unavailable Gasper Nelson Primary Care Unavailable Slim Weiss Attending Unavailable [employer] Unavailable MathewjohnDanish carr Referring Unavailable Mathewjohnbruno, Danish Primary Care Unavailable Sandro CHISHOLM, Dr. Tonja Mendez Other Provider Dr. Kelvin Falk MD Attending Provider Unavaila olga Ponce MD, Dr. Bhandari Attending Provider [phone] Dr. Slim Weiss DO Attending Provider Dlieep CHISHOLM, Dr. Warren Other Provider Unavailable Dr. Niko Castillo DO Emergency Provider Allergies Allergy Classification Reported Allergen(s) Allergy Type Date of Onset Reaction(s) Facility Sulfonamides (antibiotic) (1 source) Sulfonamides (Antibiotic) Drug Allergy 3 [facility] (20 sources) Sulfonamides (Antibiotic) Propensity to adverse reactions to drug 3 [facility] (10 sources) Sulfonamides (Antibiotic); Translations: [Sulfa (Sulfonamide Antibiotics)] Allergy to substance 5 [facility] Medications Current Medications Medication Drug Class(es) Dates Sig (Normalized) Sig (Original) [id number] 200 actuat albuterol 0.09 mg/actuat metered dose [...] 20 mg/ml oral suspension (15 sources) Uncompetitive D-aarvio-N-aspartat e Receptor Antagonist, Sigma-1 Agonist Start: 10-31-2024 [...] 21 tablet 0 11/14/2022 11/21/2022 Active nystatin 647199 unt/ml oral suspension (2 sources) Polyene Antifungal Start: 03-05-2025 take 738761 [IU] by mouth four times daily Nystatin 100,000 unit/mL Suspension Active [id number] U PO 4 TIMES DAILY 300 0 [...] Auto (Unsp spec) [#/Vol] 2.12 10*3/uL 0.83-4.51 [facility] Absolute neutrophil countOrd ered By: Nicko De Luna on 03-06-2025 Neutrophils (Bld) [#/Vol] 7.8 10*3/uL High 2.0-7.7 [facility] Anion gap in Serum or Plasma Ordered By: Nicko De Luna on 03-06-2025 Anion gap [Moles/Vol] 11 mmol/L 5-15 [facility] Automated lymphocyte count a s percentage of total leukocytesOrdered By: Nicko De Luna on 03-06-2025 Lymphocytes/100 WBC Auto (Unsp spec) 19.6 % 19-41 [facility] BUN/creatinine ratioOrdered By: Nicko De Luna on 03-06-2025 Urea nitrogen/Creatinine [Mass ratio] 38.7 mg/mg High 10-20 [facility] Basophil percentageOrdered B y: Nicko De Luna on 03-06-2025 Basophils/100 WBC (Bld) 0.4 % 0-1 [facility] Bilirubin Test strip Ql (U)O rdered By: Nicko De Luna on 03-06-2025 Bilirubin Ql (U) Negative Negative [facility] Bilirubin, totalOrdered By: Nicko De Luna on 03-06-2025 Bilirubin [Mass/Vol] 0.62 mg/dL 0.00-1.30 [facility] Blood manual differential co mment interpretation (narrative result)Ordered By: Nicko De Luna on 03-06-2025 Manual differential comment Ji (Bld) [Interp] SCANNED [facility] Calcium oxalate crystals det ection in urine sediment by light microscopyOrdered By: Nicko De Luna on 03-06-2025 Calcium oxalate crystals LM Ql (Urine sed) 2+ /hpf [facility] Carbon dioxide, total [Moles /volume] in Central venous bloodOrdered By: Nicko De Luna on 03-06-2025 CO2 [Moles/Vol] 27.0 mmol/L 21.0-32.0 [facility] Chloride assayOrdered By: Asif De Luna on 03-06-2025 Chloride [Moles/Vol] 100 mmol/L 98-108 [facility] Eosinophil percentageOrdered By: Nicko De Luna on 03-06-2025 Eosinophils/100 WBC (Bld) 1.5 % 0-5 [facility] Erythrocyte distribution wid th ratioOrdered By: Nicko De Luna on 03-06-2025 Erythrocyte distribution width (RBC) [Ratio] 13.2 % 11.6-14.6 [facility] Erythrocyte distribution wid th standard deviationOrdered By: Nicko Johnson on 03-06-2025 Erythrocyte distribution width (RBC) [Ratio] 43.6 fl 35.1-43.9 [facility] Glomerular filtration rate ( GFR) estimation/1.73 sq m using serum, plasma, or whole bOrdered By: Nicko De Luna on 03-06-2025 GFR/1.73 sq M.predicted among non-blacks MDRD (S/P/Bld) [Vol rate/Area] 95 mL/min/{1.73_m2} >60 [facility] Comment on above: mL/min/1.73m2 CKD-EP I Creatinine Equation (2020) Hematocrit Auto (Bld) [Volum e fraction]Ordered By: Nicko Calixto on 03-06-2025 Hematocrit (Bld) [Volume fraction] 42.1 % 37-47 [facility] Hemoglobin measurementOrdere d By: Nicko De Luna on 03-06-2025 Hemoglobin (Bld) [Mass/Vol] 14.1 g/dL 12.0-15.0 [facility] Immature granulocytes/100 WB C Auto (Bld)Ordered By: Nicko De Luna on 03-06-2025 Immature granulocytes/100 WBC (Bld) 0.300 % 0.0-0.9 [facility] Comment on above: IG% - Immature Granu locytes (promyelocytes, myelocytes and metamyelocytes) > 1% indicates that a LEFT SHIFT is Present. Ketones Test strip Ql (U)Ord ered By: Nicko De Luna on 03-06-2025 Ketones Ql (U) Negative Negative [facility] Laboratory - Chemistry and C hemistry - challengeOrdered By: Nicko De Luna on 03-06-2025 AST [Catalytic activity/Vol] 25 U/L <32 [facility] Lipase measurementOrdered By : Nicko De Luna on 03-06-2025 Lipase [Catalytic activity/Vol] 16 U/L 13-75 [facility] Comment on above: Please note:LIPASE r evised reference range effective 22. New Lipase methodology. Expected to produce lower values than the previous assay method. NEW Reference Range: 13 - 75 U/L MCV (mean corpuscular volume ) determinationOrdered By: Nicko De Luna on 03-06-2025 MCV (RBC) [Entitic vol] 90.3 fL 81-99 [facility] Mean corpuscular hemoglobin (MCH) determinationOrdered By: Nicko DeL una on 03-06-2025 MCH (RBC) [Entitic mass] 30.3 pg 27.0-32.0 [facility] Mean corpuscular hemoglobin concentration (MCHC) determinationOrdered By: Nicko De Luna on 03-06-2025 MCHC (RBC) [Mass/Vol] 33.5 g/dL 32-36 [facility] Mean platelet volume determi nationOrdered By: Nicko De Luna on 03-06-2025 Platelet mean volume (Bld) [Entitic vol] 10.6 fL 6.2-12.0 [facility] Microscopic analysis of urin e for red blood cells (RBC)Ordered By: Nicko De Luna on 03-06-2025 Microscopic analysis of urine for red blood cells (RBC) 0 SEEN /hpf 0-5 [facility] Monocyte percentageOrdered B y: Nicko De Luna on 03-06-2025 Monocytes/100 WBC (Bld) 5.8 % 0-10 [facility] Mucus LM Ql (Urine sed)Order ed By: Nicko De Luna on 03-06-2025 Mucus Ql (Urine sed) 0 SEEN /hpf [facility] Neutrophil percentageOrdered By: Nicko De Luna on 03-06-2025 Neutrophils/100 WBC (Bld) 72.4 % High 47-70 [facility] Nitrite Test strip Ql (U)Ord ered By: Nicko De Luna on 03-06-2025 Nitrite Ql (U) Negative Negative [facility] Nucleated red blood cell per centageOrdered By: Nicko De Luna on 03-06-2025 Nucleated RBC/100 WBC (Bld) [Ratio] 0 % 0-5 [facility] Platelet countOrdered By: Asif De Luna on 03-06-2025 Platelets (Bld) [#/Vol] 170 10*3/uL 150-450 [facility] Platelet estimateOrdered By: Nicko De Luna on 03-06-2025 Platelets LM Ql (Bld) ADEQUATE ADEQ [facility] Potassium measurement (mass/ volume)Ordered By: Nicko De Luna on 03-06-2025 Potassium (Unsp spec) [Mass/Vol] 3.0 mmol/L Low 3.3-5.1 [facility] Protein Test strip Ql (U)Ord ered By: Nicko De Luna on 03-06-2025 Protein Ql (U) 30 mg/dl High Negative [facility] RBC Auto (Bld) [#/Vol]Ordere d By: Nicko De Luna on 03-06-2025 RBC (Bld) [#/Vol] 4.66 10*6/uL 4.2-5.4 [facility] Serum creatinine measurement (mass/volume)Ordered By: Nicko De Luna on 03-06-2025 Creatinine [Mass/Vol] 0.63 mg/dL Low 0.70-1.20 [facility] Serum globulin measurementOr dered By: Nicko De Luna on 03-06-2025 Globulin (S) [Mass/Vol] 2.4 g/dL 2.2-4.2 [facility] Serum glucose measurement (m ass/volume)Ordered By: Nicko De Luna on 03-06-2025 Glucose [Mass/Vol] 153 mg/dL High 70-99 [facility] Serum or plasma alanine marin otransferase (ALT) measurementOrdered By: Nicko De Luna on 03-06-2025 ALT [Catalytic activity/Vol] 22 U/L <35 [facility] Serum or plasma albumin janneth urement (mass/volume)Ordered By: Nicko Johnson on 03-06-2025 Albumin [Mass/Vol] 4.1 g/dL 3.4-4.8 [facility] Serum or plasma albumin/glob ulin mass ratioOrdered By: Nicko De Luna on 03-06-2025 Albumin/Globulin [Mass ratio] 1.7 {ratio} 0.9-2.4 [facility] Serum or plasma alkaline robert sphatase measurementOrdered By: Nicko De Luna on 03-06-2025 ALP [Catalytic activity/Vol] 65 U/L 35-104 [facility] Serum or plasma calcium janneth urement (mass/volume)Ordered By: Nicko Johnson on 03-06-2025 Calcium [Mass/Vol] 9.8 mg/dL 7.6-11.0 [facility] Serum or plasma urea nitroge n measurement (mass/volume)Ordered By: Nicko De Luna on 03-06-2025 Urea nitrogen [Mass/Vol] 24 mg/dL High 4-19 [facility] Sodium levelOrdered By: Brenden De Luna on 03-06-2025 Sodium [Moles/Vol] 138 mmol/L 133-145 [facility] Squamous epithelial cells de tection in urine sediment by light microscopyOrdered By: Nicko De Luna on 03-06-2025 Epithelial cells.squamous LM Ql (Urine sed) 0-5 SEEN /hpf 5-10 [facility] Total proteinOrdered By: Livan De Luna on 03-06-2025 Protein [Mass/Vol] 6.5 g/dL 5.9-8.4 [facility] Urine clarityOrdered By: Livan De Luna on 03-06-2025 Clarity (U) Clear Clear [facility] Urine color determinationOrd ered By: Nicko De Luna on 03-06-2025 Color (U) Yellow Yellow [facility] Urine glucose detectionOrder ed By: Nicko De Luna on 03-06-2025 Glucose Ql (U) 50 mg/dl High Normal [facility] Urine leukocyte esterase det ection by dipstickOrdered By: Nicko De Luna on 03-06-2025 Leukocyte esterase Test strip Ql (U) 25 /ul High Negative [facility] Urine pHOrdered By: Nicko Weaver on 03-06-2025 pH (U) 6.0 [pH] 5.0 - 8.0 [facility] Urine sediment bacteria coun t by microscopy (number/high power field)Ordered By: Nicko De Luna on 03-06-2025 Bacteria LM.HPF (Urine sed) [#/Area] 0 /[HPF] None Seen [facility] Urine specific gravity measu rementOrdered By: Nicko De Luna on 03-06-2025 Specific gravity (U) [Rel density] 1.020 1.002-1.030 [facility] Urine urobilinogen measureme ntOrdered By: Nicko De Luna on 03-06-2025 Urobilinogen Ql (U) 1 mg/dl High Normal [facility] White blood cell (WBC) count Ordered By: Nicko De Luna on 03-06-2025 WBC (Bld) [#/Vol] 10.8 10*3/uL 4.4-11.0 [facility] White blood cell countOrdere d By: Nicko De Luna on 03-06-2025 White blood cell count 0 SEEN /hpf 0-5 [facility] Absolute lymphocyte countOrd ered By: Kelvin Falk on 03-05-2025 Lymphocytes Auto (Unsp spec) [#/Vol] 1.17 10*3/uL 0.83-4.51 [facility] Absolute neutrophil countOrd ered By: Kelvin Falk on 03-05-2025 Neutrophils (Bld) [#/Vol] 8.3 10*3/uL High 2.0-7.7 [facility] Anion gap in Serum or Plasma Ordered By: Kelvin Falk on 03-05-2025 Anion gap [Moles/Vol] 16 mmol/L High 5-15 [facility] Automated lymphocyte count a s percentage of total leukocytesOrdered By: Kelvin Falk on 03-05-2025 Lymphocytes/100 WBC Auto (Unsp spec) 11.9 % Low 19-41 [facility] BUN/creatinine ratioOrdered By: Kelvin Falk on 03-05-2025 Urea nitrogen/Creatinine [Mass ratio] 31.2 mg/mg High 10- [facility] Basic Metabolic Profile (BMP )on 03-05-2025 BUN/CRE 31.2 RATIO High 06-23 [facility] Comment on above: Performed By: #### L 500.2500, L100.0100, L501.2300, L501.5200 #### [facility] [address] [place], [address] Calcium [Mass/Vol] 9.6 mg/dL Normal 7.6-11.0 [facility] Comment on above: Performed By: #### L 500.2500, L100.0100, L501.2300, L501.5200 #### [facility] [address] [place], [address] Chloride [Moles/Vol] 99 mmol/L Normal 98-108 [facility] Comment on above: Performed By: #### L 500.2500, L100.0100, L501.2300, L501.5200 #### [facility] [address] [place], [address] CO2 [Moles/Vol] 19.1 mmol/L Low 21.0-32.0 [facility] Comment on above: Performed By: #### L 500.2500, L100.0100, L501.2300, L501.5200 #### [facility] [address] [place], [address] Creatinine [Mass/Vol] 0.76 mg/dL Normal 0.70-1.20 [facility] Comment on above: Performed By: #### L 500.2500, L100.0100, L501.2300, L501.5200 #### [facility] [address] [place], [address] ECRCL 47.62 ml/min Low 50-250 [facility] Comment on above: Performed By: #### L 500.2500, L100.0100, L501.2300, [id number] #### [facility] [address] [place], [address] GAP 16 High 5-15 [facility] Comment on above: Performed By: #### L 500.2500, L100.0100, L501.2300, L501.5200 #### [facility] [address] [place], [address] GFR/1.73 sq M.predicted among non-blacks MDRD (S/P/Bld) [Vol rate/Area] 84 mL/min/{1.73_m2} Normal >60 [facility] Comment on above: Result Comment: mL/m in/1.73m2 CKD-EPI Creatinine Equation (2020) Performed By: #### L 500.2500, L100.0100, L501.2300, L501.5200 #### [facility] [address] [place], [address] Glucose [Mass/Vol] 148 mg/dL High 70-99 [facility] Comment on above: Performed By: #### L 500.2500, L100.0100, L501.2300, L501.5200 #### [facility] [address] [place], [address] Potassium [Moles/Vol] 3.6 mmol/L Normal 3.3-5.1 [facility] Comment on above: Result Comment: Hemo lysis present, Results??could be affected. ?? Performed By: #### L 500.2500, L100.0100, L501.2300, L501.5200 #### [facility] [address] [place], [address] Sodium [Moles/Vol] 134 mmol/L Normal 133-145 [facility] Comment on above: Performed By: #### L 500.2500, L100.0100, L501.2300, L501.5200 #### [facility] [address] [place], [address] Urea nitrogen [Mass/Vol] 24 mg/dL High 4-19 [facility] Comment on above: Performed By: #### L 500.2500, L100.0100, L501.2300, L501.5200 #### [facility] [address] [place], [address] Basophil percentageOrdered B y: Kelvin Falk on 03-05-2025 Basophils/100 WBC (Bld) 0.3 % 0-1 [facility] CBC W/Diff, Automatedon 07-0 Absolute Lymph 1.17 X10 3/uL Normal 0.83-4.51 [facility] Comment on above: Performed By: #### L 500.2500, L100.0100, L501.2300, L501.5200 #### [facility] [address] [place], [address] Absolute Neut 8.3 X10 3/uL High 2.0-7.7 [facility] Comment on above: Performed By: #### L 500.2500, L100.0100, L501.2300, L501.5200 #### [facility] [address] [place], [address] Basophils/100 WBC (Bld) 0.3 % Normal 0-1 [facility] Comment on above: Performed By: #### L 500.2500, L100.0100, L501.2300, L501.5200 #### [facility] [address] [place], [address] Eosinophils/100 WBC (Bld) 0.3 % Normal 0-5 [facility] Comment on above: Performed By: #### L 500.2500, L100.0100, L501.2300, L501.5200 #### [facility] [address] [place], [address] Erythrocyte distribution width (RBC) [Ratio] 13.2 % Normal 11.6-14.6 [facility] Comment on above: Performed By: #### L 500.2500, L100.0100, L501.2300, L501.5200 #### [facility] [address] [place], [address] Hematocrit (Bld) [Volume fraction] 40.6 % Normal 37-47 [facility] Comment on above: Performed By: #### L 500.2500, L100.0100, L501.2300, L501.5200 #### [facility] [address] [place], [address] Hemoglobin (Bld) [Mass/Vol] 13.6 g/dL Normal 12.0-15.0 [facility] Comment on above: Performed By: #### L 500.2500, L100.0100, L501.2300, L501.5200 #### [facility] [address] [place], [address] IG% 0.400 Normal 0.0-0.9 [facility] Comment on above: Result Comment: IG% - Immature Granulocytes (promyelocytes, myelocytes and metamyelocytes) > 1% indicates that a LEFT SHIFT is Present. Performed By: #### L 500.2500, L100.0100, L501.2300, L501.5200 #### [facility] [address] [place], [address] Lymphocytes/100 WBC (Bld) 11.9 % Low 19-41 [facility] Comment on above: Performed By: #### L 500.2500, L100.0100, L501.2300, L501.5200 #### [facility] [address] [place], [address] MCH (RBC) [Entitic mass] 30.3 pg Normal 27.0-32.0 [facility] Comment on above: Performed By: #### L 500.2500, L100.0100, L501.2300, L501.5200 #### [facility] [address] [place], [address] MCHC (RBC) [Mass/Vol] 33.5 g/dL Normal 32-36 [facility] Comment on above: Performed By: #### L 500.2500, L100.0100, L501.2300, L501.5200 #### [facility] [address] [place], [address] MCV (RBC) [Entitic vol] 90.4 fL Normal 81-99 [facility] Comment on above: Performed By: #### L 500.2500, L100.0100, L501.2300, L501.5200 #### [facility] [address] [place], [address] Monocytes/100 WBC (Bld) 2.4 % Normal 0-10 [facility] Comment on above: Performed By: #### L 500.2500, L100.0100, L501.2300, L501.5200 #### [facility] [address] [place], [address] Neutrophils/100 WBC (Bld) 84.7 % High 47-70 [facility] Comment on above: Performed By: #### L 500.2500, L100.0100, L501.2300, L501.5200 #### [facility] [address] [place], [address] Nucleated RBC (Bld) [#/Vol] 0 10*3/uL Normal 0-5 [facility] Comment on above: Performed By: #### L 500.2500, L100.0100, L501.2300, L501.5200 #### [facility] [address] [place], [address] Platelet mean volume (Bld) [Entitic vol] 10.3 fL Normal 6.2-12.0 [facility] Comment on above: Performed By: #### L 500.2500, L100.0100, L501.2300, L501.5200 #### [facility] [address] [place], [address] Platelets (Bld) [#/Vol] 227 10*3/uL Normal 150-450 [facility] Comment on above: Performed By: #### L 500.2500, L100.0100, L501.2300, L501.5200 #### [facility] [address] [place], [address] RBC (Bld) [#/Vol] 4.49 10*6/uL Normal 4.2-5.4 [facility] Comment on above: Performed By: #### L 500.2500, L100.0100, L501.2300, L501.5200 #### [facility] [address] [place], [address] RDW SD 43.2 fl Normal 35.1-43.9 [facility] Comment on above: Performed By: #### L 500.2500, L100.0100, L501.2300, L501.5200 #### [facility] [address] [place], [address] WBC (Bld) [#/Vol] 9.9 10*3/uL Normal 4.4-11.0 [facility] Comment on above: Performed By: #### L 500.2500, L100.0100, L501.2300, L501.5200 #### [facility] [address] [place], [address] Carbon dioxide, total [Moles /volume] in Central venous bloodOrdered By: Kelvin Falk on 03-05-2025 CO2 [Moles/Vol] 19.1 mmol/L Low 21.0-32.0 [facility] Chloride assayOrdered By: Boby Falk on 03-05-2025 Chloride [Moles/Vol] 99 mmol/L 98-108 [facility] Eosinophil percentageOrdered By: Kelvin Falk on 03-05-2025 Eosinophils/100 WBC (Bld) 0.3 % 0-5 [facility] Erythrocyte distribution wid th ratioOrdered By: Kelvin Falk on 03-05-2025 Erythrocyte distribution width (RBC) [Ratio] 13.2 % 11.6-14.6 [facility] Erythrocyte distribution wid th standard deviationOrdered By: Kelvin Falk on 03-05-2025 Erythrocyte distribution width (RBC) [Ratio] 43.2 fl 35.1-43.9 [facility] Glomerular filtration rate ( GFR) estimation/1.73 sq m using serum, plasma, or whole bOrdered By: Kelvin Falk on 03-05-2025 GFR/1.73 sq M.predicted among non-blacks MDRD (S/P/Bld) [Vol rate/Area] 84 mL/min/{1.73_m2} >60 [facility] Comment on above: mL/min/1.73m2 CKD-EP I Creatinine Equation (2020) Hematocrit Auto (Bld) [Volum e fraction]Ordered By: Kelvin Falk on 03-05-2025 Hematocrit (Bld) [Volume fraction] 40.6 % 37-47 [facility] Hemoglobin measurementOrdere d By: Kelvin Falk on 03-05-2025 Hemoglobin (Bld) [Mass/Vol] 13.6 g/dL 12.0-15.0 [facility] Immature granulocytes/100 WB C Auto (Bld)Ordered By: Kelvin Falk on 03-05-2025 Immature granulocytes/100 WBC (Bld) 0.400 % 0.0-0.9 [facility] Comment on above: IG% - Immature Granu locytes (promyelocytes, myelocytes and metamyelocytes) > 1% indicates that a LEFT SHIFT is Present. MCV (mean corpuscular volume ) determinationOrdered By: Kelvin Falk on 03-05-2025 MCV (RBC) [Entitic vol] 90.4 fL 81-99 [facility] Magnesiumon 03-05-2025 Magnesium [Mass/Vol] 1.8 mg/dL Normal 1.5-2.2 [facility] Comment on above: Performed By: #### L 500.2500, L100.0100, L501.2300, L501.5200 #### [facility] [address] [place], [place], [id number] Magnesium measurement (mass/ volume)Ordered By: Kelvin Falk on 03-05-2025 Magnesium (Unsp spec) [Mass/Vol] 1.8 mg/dL 1.5-2.2 [facility] Mean corpuscular hemoglobin (MCH) determinationOrdered By: Kelvin Falk on 03-05-2025 MCH (RBC) [Entitic mass] 30.3 pg 27.0-32.0 [facility] Mean corpuscular hemoglobin concentration (MCHC) determinationOrdered By: Kelvin Falk on 03-05-2025 MCHC (RBC) [Mass/Vol] 33.5 g/dL 32-36 [facility] Mean platelet volume determi nationOrdered By: Kelvin Falk on 03-05-2025 Platelet mean volume (Bld) [Entitic vol] 10.3 fL 6.2-12.0 [facility] Monocyte percentageOrdered B y: Kelvin Falk on 03-05-2025 Monocytes/100 WBC (Bld) 2.4 % 0-10 [facility] Neutrophil percentageOrdered By: Kelvin Falk on 03-05-2025 Neutrophils/100 WBC (Bld) 84.7 % High 47-70 [facility] Nucleated red blood cell per centageOrdered By: Kelvin Falk on 03-05-2025 Nucleated RBC/100 WBC (Bld) [Ratio] 0 % 0-5 [facility] [place] 03-05-2025 Phosphate [Mass/Vol] 2.2 mg/dL Low 2.7-4.5 [facility] Comment on above: Result Comment: AMENDED REPORT 03/05/25 0812 PHOS previously reported as: 2.1 L mg/dL Performed By: #### L 500.2500, L100.0100, L501.2300, L501.5200 #### [facility] [address] [place], [address] Platelet countOrdered By: Boby Falk on 03-05-2025 Platelets (Bld) [#/Vol] 227 10*3/uL 150-450 [facility] Potassium measurement (mass/ volume)Ordered By: Kelvin Falk on 03-05-2025 Potassium (Unsp spec) [Mass/Vol] 3.6 mmol/L 3.3-5.1 [facility] Comment on above: Hemolysis present, R esults could be affected. RBC Auto (Bld) [#/Vol]Ordere d By: Kelvin Falk on 03-05-2025 RBC (Bld) [#/Vol] 4.49 10*6/uL 4.2-5.4 [facility] Serum creatinine measurement (mass/volume)Ordered By: Kelvin Falk on 03-05-2025 Creatinine [Mass/Vol] 0.76 mg/dL 0.70-1.20 [facility] Serum glucose measurement (m ass/volume)Ordered By: Kelvin Falk on 03-05-2025 Glucose [Mass/Vol] 148 mg/dL High 70-99 [facility] Serum or plasma calcium janneth urement (mass/volume)Ordered By: Kelvin Falk on 03-05-2025 Calcium [Mass/Vol] 9.6 mg/dL 7.6-11.0 [facility] Serum or plasma urea nitroge n measurement (mass/volume)Ordered By: Kelvin Falk on 03-05-2025 Urea nitrogen [Mass/Vol] 24 mg/dL High 4-19 [facility] Sodium levelOrdered By: Jack Falk on 03-05-2025 Sodium [Moles/Vol] 134 mmol/L 133-145 [facility] White blood cell (WBC) count Ordered By: Kelvin Falk on 03-05-2025 WBC (Bld) [#/Vol] 9.9 10*3/uL 4.4-11.0 [facility] Calculated very low density lipoprotein (VLDL) cholesterol measurementOrdered By: Tonja Jo on 03-04-2025 Calculated very low density lipoprotein (VLDL) cholesterol measurement 17 mg/dL 5-40 [facility] Electrocardiogram reportOrde red By: Ezequiel Gusman on 03-04-2025 EKG study [facility] [address] [place] [address] 12 Lead EKG 03/03/25 0556 MR#: [id number] Acct: [id number] Name: ASHLEY GÓMEZ Rep #:[id number] : 1955 69 From: Ezequiel Gusman MD Attending Dr: Dr. Bunny Avilez DO Status: ADM IN Ordering Dr: Tonja Jo MD Date: 03/03/25 Location: [facility] Sex: F C Admitted: 03/03/25 Test [...] IS UNCONFIRMED Confirmed by MURTAZA CHISHOLM, EZEQUIEL ([id number]), online editor OSWALD ROSA ([id number]) on 03/04/2025 6:51:15 AM Referred By: Confirmed By: EZEQUIEL GUSMAN MD 03/04/25 0651 Date _ Ezequiel Gusman MD CC: Dr. Tonja Jo MD; Dr. Gasper Nelson DO; Dr. Bunny Avilez DO ~ Signed [facility] Other Phone: EKG study [facility] [address] [place] [address] 12 Lead EKG 03/02/25 2340 MR#: [id number] Acct: [id number] Name: ASHLEY GÓMEZ Rep #:[id number] : 1955 69 From: Ezequiel Gusman MD Attending Dr: Dr. Bunny Avilez DO Status: ADM IN Ordering Dr: Abdulkadir Peralta DO Date: Location: [facility] Sex: F C Admitted: 03/03/25 Test [...] ST abnormality Abnormal ECG Confirmed by MURTAZA CHISHLOM, EZEQUIEL ([id number]), online editor OSWALD ROSA ([id number]) on 03/04/2025 6:37:00 AM Referred By: KEVIN Confirmed By: EZEQUIEL GUSMAN MD 03/04/25 0637 Date _ Ezequiel Gusman MD CC: Dr. Gasper Nelson, ; Dr. Bunny Avilez DO; Dr. Abdulkadir Peralta DO ~ Signed [facility] Other Phone: LDL calc ser/plasOrdered By: Tonja Jo on 03-04-2025 Cholesterol in LDL [Mass/Vol] 147 mg/dL [facility] Comment on above: Twmeqsogxh=901-963 m g/dL & Higher Wzjd=390 mg/dL or greater Lipid Profileon 03-04-2025 CHOL:HDL 4.27 Normal [facility] Comment on above: Performed By: #### L 501.5790, L503.6005, L500.4050, L300.8000, L100.0100 #### [facility] [address] [place], [address] Cholesterol [Mass/Vol] 215 mg/dL High <=200 [facility] Comment on above: Result Comment: Chol esterol level, Desirable <200 mg/dL Borderline high cholesterol 200-239 mg/dL High cholesterol >=240 mg/dL Recommendations of the NCEP Adult Treatment Panel for the following risk-cutoff thresholds for the [place] population. Performed By: #### L 501.2450, L503.6005, L500.4050, L300.8000, L100.0100 #### [facility] [address] [place], [address] Cholesterol in HDL [Mass/Vol] 50 mg/dL Normal [facility] Comment on above: Result Comment: Tonia onal Cholesterol Education Program (NCEP) guidelines: <40 mg/dL: Low HDL-cholesterol (major risk factor for CHD) >= 60 mg/dL: High HDL-cholesterol (negative risk factor for CHD) HDL-cholesterol is affected by a number of factors, e.g. smoking, exercise, hormones, sex and age. Performed By: #### L 501.2450, L503.6005, L500.4050, L300.8000, L100.0100 #### [facility] [address] [place], [address] Cholesterol in LDL [Mass/Vol] 147 mg/dL Normal [facility] Comment on above: Result Comment: Bord ceupuo=331-964 mg/dL Higher Kqha=496 mg/dL or greater Performed By: #### L 501.2450, L503.6005, L500.4050, L300.8000, L100.0100 #### [facility] [address] [place], [address] Cholesterol in VLDL [Mass/Vol] 17 mg/dL Normal 5-40 [facility] Comment on above: Performed By: #### L 501.2450, L503.6005, L500.4050, L300.8000, L100.0100 #### [facility] [address] [place], [address] Triglyceride [Mass/Vol] 87 mg/dL Normal [facility] Comment on above: Result Comment: The drugs N-Acetylcysteine and Metamizole may falsely depress this assay. Normal range: <150 mg/dL Borderline High: 150-199 mg/dL High: 200-499 mg/dL Very High: >500 mg/dL Performed By: #### L 501.2450, L503.6005, L500.4050, L300.8000, L100.0100 #### [facility] [address] [facility] [place], [address] Screening total cholesterol/ high density lipoprotein (HDL) cholesterol ratioOrdered By: Tonja Jo on 03-04-2025 Cholesterol.total/Choles terol in HDL [Mass ratio] 4.27 {ratio} [facility] Serum or plasma cholesterol in HDL measurement (mass/volume)Ordered By: Tonja Jo on 03-04-2025 Cholesterol in HDL [Mass/Vol] 50 mg/dL >40 [facility] Comment on above: National Cholesterol Education Program (NCEP) guidelines:<40 mg/dL: Low HDL-cholesterol (major risk factor for CHD)>= 60 mg/dL: High HDL-cholesterol (negative risk factor for CHD)HDL-cholesterol is affected by a number of factors, e.g. smoking, exercise, hormones, sex and age. Serum or plasma cholesterol measurement (mass/volume)Ordered By: Tonja Jo on 03-04-2025 Cholesterol [Mass/Vol] 215 mg/dL High <201 [facility] Comment on above: Cholesterol level, D esirable <200 mg/dLBorderline high cholesterol 200-239 mg/dLHigh cholesterol >=240 mg/dLRecommendations of the NCEP Adult Treatment Panel for the following risk-cutoff thresholds for the [place] population. Triglycerides measurementOrd ered By: Tonja Jo on 03-04-2025 Triglyceride [Mass/Vol] 87 mg/dL <199 [facility] Comment on above: The drugs N-Acetylcy steine and Metamizole may falsely depress this assay. Normal range: <150 mg/dLBorderline High: 150-199 mg/dLHigh: 200-499 mg/dLVery High: >500 mg/dL 12 Lead EKGon 03-03-2025 12 Lead EKG [facility] [address] [place] [address] 12 Lead EKG 03/03/25 0556 MR#: [id number] Acct: [id number] Name: ASHLEY GÓMEZ Rep #: [id number] : 1955 69 From: Ezequiel Gusman MD Attending Dr: Dr. Bunny Avilez DO Status: A DM IN Ordering Dr: Tonja Jo MD Date: 03/03/25 Location: [facility] Sex: F C Admitted: 03/03/25 Test [...] UNCONFIRMED Confirmed by MURTAZA CHISHOLM, EZEQUIEL ([id number]), online editor OSWALD ROSA ([id number]) on 03/04/2025 6:51:15 AM Referred By: Confirmed By: EZEQUIEL GUSMAN MD 03/04/25 0651 Date Ezequiel Gusman MD CC: Dr. Tonja Jo MD; Dr. Gasper Nelson DO; Dr. Bunny Avilez DO Signed Normal [facility] Absolute lymphocyte countOrd ered By: Abdulkadir Peralta on 03-03-2025 Lymphocytes Auto (Unsp spec) [#/Vol] 2.54 10*3/uL 0.83-4.51 [facility] Absolute neutrophil countOrd ered By: Abdulkadir Peralta on 03-03-2025 Neutrophils (Bld) [#/Vol] 18.9 10*3/uL High 2.0-7.7 [facility] Anion gap in Serum or Plasma Ordered By: Abdukladir Peralta on 03-03-2025 Anion gap [Moles/Vol] 17 mmol/L High 5-15 [facility] Automated lymphocyte count a s percentage of total leukocytesOrdered By: Abdulkadir Peralta on 03-03-2025 Lymphocytes/100 WBC Auto (Unsp spec) 11.1 % Low 19-41 [facility] BUN/creatinine ratioOrdered By: Remus Ungrachel on 03-03-2025 Urea nitrogen/Creatinine [Mass ratio] 33.1 mg/mg High 10-20 [facility] Basophil percentageOrdered B y: Remus Ungrachel on 03-03-2025 Basophils/100 WBC (Bld) 0.4 % 0-1 [facility] Bilirubin Test strip Ql (U)O rdered By: Abdulkadir Peralta on 03-03-2025 Bilirubin Ql (U) Negative Negative [facility] Bilirubin, totalOrdered By: Tonja White on 03-03-2025 Bilirubin [Mass/Vol] 0.48 mg/dL 0.00-1.30 [facility] Bilirubin, totalOrdered By: Abdulkadir Peralta on 03-03-2025 Bilirubin [Mass/Vol] 0.78 mg/dL 0.00-1.30 [facility] CBC W/Diff, Automatedon 02-04 0-2024 Absolute Lymph 1.17 X10 3/uL Normal 0.83-4.51 [facility] Comment on above: Performed By: #### L 501.2450, L503.6005, L500.4050, L300.8000, L100.0100 #### [facility] [address] [facility] [place], [address] Absolute Neut 14.3 X10 3/uL High 2.0-7.7 [facility] Comment on above: Performed By: #### L 501.2450, L503.6005, L500.4050, L300.8000, L100.0100 #### [facility] [address] [place], [address] Basophils/100 WBC (Bld) 0.3 % Normal 0-1 [facility] Comment on above: Performed By: #### L 501.2450, L503.6005, L500.4050, L300.8000, L100.0100 #### [facility] [address] [place], [address] Eosinophils/100 WBC (Bld) 0.1 % Normal 0-5 [facility] Comment on above: Performed By: #### L 501.2450, L503.6005, L500.4050, L300.8000, L100.0100 #### [facility] [address] [place], [address] Erythrocyte distribution width (RBC) [Ratio] 13.4 % Normal 11.6-14.6 [facility] Comment on above: Performed By: #### L 501.2450, L503.6005, L500.4050, L300.8000, L100.0100 #### [facility] [address] [place], [address] Hematocrit (Bld) [Volume fraction] 43.2 % Normal 37-47 [facility] Comment on above: Performed By: #### L 501.2450, L503.6005, L500.4050, L300.8000, L100.0100 #### [facility] [address] [place], [address] Hemoglobin (Bld) [Mass/Vol] 14.6 g/dL Normal 12.0-15.0 [facility] Comment on above: Performed By: #### L 501.2450, L503.6005, L500.4050, L300.8000, L100.0100 #### [facility] [address] [place], [address] IG% 0.300 Normal 0.0-0.9 [facility] Comment on above: Result Comment: IG% - Immature Granulocytes (promyelocytes, myelocytes and metamyelocytes) > 1% indicates that a LEFT SHIFT is Present. Performed By: #### L 501.2450, L503.6005, L500.4050, L300.8000, L100.0100 #### [facility] [address] [place], [address] Lymphocytes/100 WBC (Bld) 7.3 % Low 19-41 [facility] Comment on above: Performed By: #### L 501.2450, L503.6005, L500.4050, L300.8000, L100.0100 #### [facility] [address] [place], [address] MCH (RBC) [Entitic mass] 30.3 pg Normal 27.0-32.0 [facility] Comment on above: Performed By: #### L 501.2450, L503.6005, L500.4050, L300.8000, L100.0100 #### [facility] [address] [place], [address] MCHC (RBC) [Mass/Vol] 33.8 g/dL Normal 32-36 [facility] Comment on above: Performed By: #### L 501.2450, L503.6005, L500.4050, L300.8000, L100.0100 #### [facility] [address] [place], [address] MCV (RBC) [Entitic vol] 89.6 fL Normal 81-99 [facility] Comment on above: Performed By: #### L 501.2450, L503.6005, L500.4050, L300.8000, L100.0100 #### [facility] [address] [place], [address] Monocytes/100 WBC (Bld) 3.5 % Normal 0-10 [facility] Comment on above: Performed By: #### L 501.2450, L503.6005, L500.4050, L300.8000, L100.0100 #### [facility] [address] [place], [address] Neutrophils/100 WBC (Bld) 88.5 % High 47-70 [facility] Comment on above: Performed By: #### L 501.2450, L503.6005, L500.4050, L300.8000, L100.0100 #### [facility] [address] [place], [address] Nucleated RBC (Bld) [#/Vol] 0 10*3/uL Normal 0-5 [facility] Comment on above: Performed By: #### L 501.2450, L503.6005, L500.4050, L300.8000, L100.0100 #### [facility] [address] [place], [address] Platelet mean volume (Bld) [Entitic vol] 9.9 fL Normal 6.2-12.0 [facility] Comment on above: Performed By: #### L 501.2450, L503.6005, L500.4050, L300.8000, L100.0100 #### [facility] [address] [place], [address] Platelets (Bld) [#/Vol] 265 10*3/uL Normal 150-450 [facility] Comment on above: Performed By: #### L 501.2450, L503.6005, L500.4050, L300.8000, L100.0100 #### [facility] [address] [place], [address] RBC (Bld) [#/Vol] 4.82 10*6/uL Normal 4.2-5.4 [facility] Comment on above: Performed By: #### L 501.2450, L503.6005, L500.4050, L300.8000, L100.0100 #### [facility] [address] [place], [address] RDW SD 43.7 fl Normal 35.1-43.9 [facility] Comment on above: Performed By: #### L 501.2450, L503.6005, L500.4050, L300.8000, L100.0100 #### [facility] [address] [place], [address] WBC (Bld) [#/Vol] 16.1 10*3/uL High 4.4-11.0 [facility] Comment on above: Performed By: #### L 501.2450, L503.6005, L500.4050, L300.8000, L100.0100 #### [facility] [address] [place], [address] Absolute Lymph 2.54 X10 3/uL Normal 0.83-4.51 [facility] Comment on above: Performed By: #### L 501.2450, L503.6005, L500.4050, L300.8000, L100.0100 #### [facility] [address] [place], [address] Absolute Neut 18.9 X10 3/uL High 2.0-7.7 [facility] Comment on above: Performed By: #### L 501.2450, L503.6005, L500.4050, L300.8000, L100.0100 #### [facility] [address] [place], [address] Basophils/100 WBC (Bld) 0.4 % Normal 0-1 [facility] Comment on above: Performed By: #### L 501.2450, L503.6005, L500.4050, L300.8000, L100.0100 #### [facility] [address] [place], [address] Eosinophils/100 WBC (Bld) 0.3 % Normal 0-5 [facility] Comment on above: Performed By: #### L 501.2450, L503.6005, L500.4050, L300.8000, L100.0100 #### [facility] [address] [place], [address] Erythrocyte distribution width (RBC) [Ratio] 13.3 % Normal 11.6-14.6 [facility] Comment on above: Performed By: #### L 501.2450, L503.6005, L500.4050, L300.8000, L100.0100 #### [facility] [address] [place], [address] Hematocrit (Bld) [Volume fraction] 46.5 % Normal 37-47 [facility] Comment on above: Performed By: #### L 501.2450, L503.6005, L500.4050, L300.8000, L100.0100 #### [facility] [address] [place], [address] Hemoglobin (Bld) [Mass/Vol] 15.9 g/dL High 12.0-15.0 [facility] Comment on above: Performed By: #### L 501.2450, L503.6005, L500.4050, L300.8000, L100.0100 #### [facility] [address] [place], [address] IG% 0.400 Normal 0.0-0.9 [facility] Comment on above: Result Comment: IG% - Immature Granulocytes (promyelocytes, myelocytes and metamyelocytes) > 1% indicates that a LEFT SHIFT is Present. Performed By: #### L 501.2450, L503.6005, L500.4050, L300.8000, L100.0100 #### [facility] [address] [place], [address] Lymphocytes/100 WBC (Bld) 11.1 % Low 19-41 [facility] Comment on above: Performed By: #### L 501.2450, L503.6005, L500.4050, L300.8000, L100.0100 #### [facility] [address] [place], [address] MCH (RBC) [Entitic mass] 30.5 pg Normal 27.0-32.0 [facility] Comment on above: Performed By: #### L 501.2450, L503.6005, L500.4050, L300.8000, L100.0100 #### [facility] [address] [place], [address] MCHC (RBC) [Mass/Vol] 34.2 g/dL Normal 32-36 [facility] Comment on above: Performed By: #### L 501.2450, L503.6005, L500.4050, L300.8000, L100.0100 #### [facility] [address] [place], [address] MCV (RBC) [Entitic vol] 89.3 fL Normal 81-99 [facility] Comment on above: Performed By: #### L 501.2450, L503.6005, L500.4050, L300.8000, L100.0100 #### [facility] [address] [place], [address] Monocytes/100 WBC (Bld) 5.4 % Normal 0-10 [facility] Comment on above: Performed By: #### L 501.2450, L503.6005, L500.4050, L300.8000, L100.0100 #### [facility] [address] [place], [address] Neutrophils/100 WBC (Bld) 82.4 % High 47-70 [facility] Comment on above: Performed By: #### L 501.2450, L503.6005, L500.4050, L300.8000, L100.0100 #### [facility] [address] [place], [address] Nucleated RBC (Bld) [#/Vol] 0 10*3/uL Normal 0-5 [facility] Comment on above: Performed By: #### L 501.2450, L503.6005, L500.4050, L300.8000, L100.0100 #### [facility] [address] [place], [address] Platelet mean volume (Bld) [Entitic vol] 10.1 fL Normal 6.2-12.0 [facility] Comment on above: Performed By: #### L 501.2450, L503.6005, L500.4050, L300.8000, L100.0100 #### [facility] [address] [place], [address] Platelets (Bld) [#/Vol] 281 10*3/uL Normal 150-450 [facility] Comment on above: Performed By: #### L 501.2450, L503.6005, L500.4050, L300.8000, L100.0100 #### [facility] [address] [place], [address] RBC (Bld) [#/Vol] 5.21 10*6/uL Normal 4.2-5.4 [facility] Comment on above: Performed By: #### L 501.2450, L503.6005, L500.4050, L300.8000, L100.0100 #### [facility] [address] [place], [address] RDW SD 43.3 fl Normal 35.1-43.9 [facility] Comment on above: Performed By: #### L 501.2450, L503.6005, L500.4050, L300.8000, L100.0100 #### [facility] [address] [place], [address] WBC (Bld) [#/Vol] 22.9 10*3/uL High 4.4-11.0 [facility] Comment on above: Performed By: #### L 501.2450, L503.6005, L500.4050, L300.8000, L100.0100 #### [facility] [address] [place], [address] CT Chest, Abd, Pel w/Contras ton 03-03-2025 CT Chest, Abd, Pel w/Contrast [facility] [address] [place] [address] CT Chest, Abd, Pel w/Contrast MR#: [id number] Acct: [id number] Name: ASHLEY GÓMEZ Rep #: [id number] : 1955 F 69 From: Ruddy Vidales MD PCP: Dr. Gasper Nelson, Status: REG ER Study: CT Chest, Abd, Pel w/Contrast Date of Exam: Exam# [id number] Ordering Dr: Abdulkadir Peralta DO PROCEDURE: CT [...] lung band atelectasis. Esophageal reflux. Reading Location: [place] [address] CC: Dr. Gasper Nelson ; Dr. Abdulkadir Peralta DO [place] Nurse: Signed Normal [facility] Carbon dioxide, total [Moles /volume] in Central venous bloodOrdered By: Abdulkadir Peralta on 03-03-2025 CO2 [Moles/Vol] 24.4 mmol/L 21.0-32.0 [facility] Chloride assayOrdered By: Sol Peralta on 03-03-2025 Chloride [Moles/Vol] 97 mmol/L Low 98-108 [facility] Comprehensive Metabolic Prof ilon 03-03-2025 Albumin [Mass/Vol] 4.4 g/dL Normal 3.4-4.8 [facility] Comment on above: Performed By: #### L 501.2450, L503.6005, L500.4050, L300.8000, L100.0100 #### [facility] [address] [place], [address] Albumin/Globulin [Mass ratio] 1.6 {ratio} Normal 0.9-2.4 [facility] Comment on above: Performed By: #### L 501.2450, L503.6005, L500.4050, L300.8000, L100.0100 #### [facility] [address] [place], [address] ALK PHOS 78 U/L Normal 35-104 [facility] Comment on above: Performed By: #### L 501.2450, L503.6005, L500.4050, L300.8000, L100.0100 #### [facility] [address] [place], [address] ALT [Catalytic activity/Vol] 40 U/L High <=34 [facility] Comment on above: Performed By: #### L 501.2450, L503.6005, L500.4050, L300.8000, L100.0100 #### [facility] [address] [place], [address] AST [Catalytic activity/Vol] 40 U/L High <=31 [facility] Comment on above: Performed By: #### L 501.2450, L503.6005, L500.4050, L300.8000, L100.0100 #### [facility] [address] [place], [address] Bilirubin [Mass/Vol] 0.78 mg/dL Normal 0.00-1.30 [facility] Comment on above: Performed By: #### L 501.2450, L503.6005, L500.4050, L300.8000, L100.0100 #### [facility] [address] [place], [address] BUN/CRE 33.1 RATIO High 10-20 [facility] Comment on above: Performed By: #### L 501.2450, L503.6005, L500.4050, L300.8000, L100.0100 #### [facility] [address] [place], [address] Calcium [Mass/Vol] 10.5 mg/dL Normal 7.6-11.0 [facility] Comment on above: Performed By: #### L 501.2450, L503.6005, L500.4050, L300.8000, L100.0100 #### [facility] [address] [place], [address] Chloride [Moles/Vol] 97 mmol/L Low 98-108 [facility] Comment on above: Performed By: #### L 501.2450, L503.6005, L500.4050, L300.8000, L100.0100 #### [facility] [address] [place], [address] CO2 [Moles/Vol] 24.4 mmol/L Normal 21.0-32.0 [facility] Comment on above: Performed By: #### L 501.2450, L503.6005, L500.4050, L300.8000, L100.0100 #### [facility] [address] [place], [address] Creatinine [Mass/Vol] 1.09 mg/dL Normal 0.70-1.20 [facility] Comment on above: Performed By: #### L 501.2450, L503.6005, L500.4050, L300.8000, L100.0100 #### [facility] [facility] [address] [place], [address] ECRCL 37.91 ml/min Low 50-250 [facility] Comment on above: Performed By: #### L 501.2450, L503.6005, L500.4050, L300.8000, L100.0100 #### [facility] [address] [place], [address] GAP 17 High 5-15 [facility] Comment on above: Performed By: #### L 501.2450, L503.6005, L500.4050, L300.8000, L100.0100 #### [facility] [address] [place], [address] GFR/1.73 sq M.predicted among non-blacks MDRD (S/P/Bld) [Vol rate/Area] 55 mL/min/{1.73_m2} Low >60 [facility] Comment on above: Result Comment: mL/m in/1.73m2 CKD-EPI Creatinine Equation (2020) Performed By: #### L 501.2450, L503.6005, L500.4050, L300.8000, L100.0100 #### [facility] [address] [place], [address] Globulin (S) [Mass/Vol] 2.7 g/dL Normal 2.2-4.2 [facility] Comment on above: Performed By: #### L 501.2450, L503.6005, L500.4050, L300.8000, L100.0100 #### [facility] [address] [place], [address] Glucose [Mass/Vol] 154 mg/dL High 70-99 [facility] Comment on above: Performed By: #### L 501.2450, L503.6005, L500.4050, L300.8000, L100.0100 #### [facility] [address] [place], [address] Potassium [Moles/Vol] 3.4 mmol/L Normal 3.3-5.1 [facility] Comment on above: Performed By: #### L 501.2450, L503.6005, L500.4050, L300.8000, L100.0100 #### [facility] [address] [place], [address] Sodium [Moles/Vol] 138 mmol/L Normal 133-145 [facility] Comment on above: Performed By: #### L 501.2450, L503.6005, L500.4050, L300.8000, L100.0100 #### [facility] [address] [place], [address] T PROT 7.0 g/dL Normal 5.9-8.4 [facility] Comment on above: Performed By: #### L 501.2450, L503.6005, L500.4050, L300.8000, L100.0100 #### [facility] [address] [place], [address] Urea nitrogen [Mass/Vol] 36 mg/dL High 4-19 [facility] Comment on above: Performed By: #### L 501.2450, L503.6005, L500.4050, L300.8000, L100.0100 #### [facility] [address] [place], [address] Albumin [Mass/Vol] 4.1 g/dL Normal 3.4-4.8 [facility] Comment on above: Performed By: #### L 501.2450, L503.6005, L500.4050, L300.8000, L100.0100 #### [facility] [address] [place], [address] Albumin/Globulin [Mass ratio] 1.7 {ratio} Normal 0.9-2.4 [facility] Comment on above: Performed By: #### L 501.2450, L503.6005, L500.4050, L300.8000, L100.0100 #### [facility] [address] [place], [address] ALK PHOS 73 U/L Normal 35-104 [facility] Comment on above: Performed By: #### L 501.2450, L503.6005, L500.4050, L300.8000, L100.0100 #### [facility] [address] [place], [address] ALT [Catalytic activity/Vol] 36 U/L High <=34 [facility] Comment on above: Performed By: #### L 501.2450, L503.6005, L500.4050, L300.8000, L100.0100 #### [facility] [address] [place], [address] AST [Catalytic activity/Vol] 37 U/L High <=31 [facility] Comment on above: Performed By: #### L 501.2450, L503.6005, L500.4050, L300.8000, L100.0100 #### [facility] [address] [place], [address] Bilirubin [Mass/Vol] 0.48 mg/dL Normal 0.00-1.30 [facility] Comment on above: Performed By: #### L 501.2450, L503.6005, L500.4050, L300.8000, L100.0100 #### [facility] [address] [place], [address] BUN/CRE 35.4 RATIO High 10-20 [facility] Comment on above: Performed By: #### L 501.2450, L503.6005, L500.4050, L300.8000, L100.0100 #### [facility] [address] [place], [address] Calcium [Mass/Vol] 9.8 mg/dL Normal 7.6-11.0 [facility] Comment on above: Performed By: #### L 501.2450, L503.6005, L500.4050, L300.8000, L100.0100 #### [facility] [address] [place], [address] Chloride [Moles/Vol] 101 mmol/L Normal 98-108 [facility] Comment on above: Performed By: #### L 501.2450, L503.6005, L500.4050, L300.8000, L100.0100 #### [facility] [address] [place], [address] CO2 [Moles/Vol] 26.0 mmol/L Normal 21.0-32.0 [facility] Comment on above: Performed By: #### L 501.2450, L503.6005, L500.4050, L300.8000, L100.0100 #### [facility] [address] [place], [address] Creatinine [Mass/Vol] 0.95 mg/dL Normal 0.70-1.20 [facility] Comment on above: Performed By: #### L 501.2450, L503.6005, L500.4050, L300.8000, L100.0100 #### [facility] [address] [place], [address] ECRCL 40.97 ml/min Low 50-250 [facility] Comment on above: Performed By: #### L 501.2450, L503.6005, L500.4050, L300.8000, L100.0100 #### [facility] [address] [place], [address] GAP 14 Normal 5-15 [facility] Comment on above: Performed By: #### L 501.2450, L503.6005, L500.4050, L300.8000, L100.0100 #### [facility] [address] [place], [address] GFR/1.73 sq M.predicted among non-blacks MDRD (S/P/Bld) [Vol rate/Area] 65 mL/min/{1.73_m2} Normal >60 [facility] Comment on above: Result Comment: mL/m in/1.73m2 CKD-EPI Creatinine Equation (2020) Performed By: #### L 501.2450, L503.6005, L500.4050, L300.8000, L100.0100 #### [facility] [address] [place], [address] Globulin (S) [Mass/Vol] 2.4 g/dL Normal 2.2-4.2 [facility] Comment on above: Performed By: #### L 501.2450, L503.6005, L500.4050, L300.8000, L100.0100 #### [facility] [address] [place], [address] Glucose [Mass/Vol] 144 mg/dL High 70-99 [facility] Comment on above: Performed By: #### L 501.2450, L503.6005, L500.4050, L300.8000, L100.0100 #### [facility] [address] [place], [address] Potassium [Moles/Vol] 3.5 mmol/L Normal 3.3-5.1 [facility] Comment on above: Performed By: #### L 501.2450, L503.6005, L500.4050, L300.8000, L100.0100 #### [facility] [address] [place], [address] Sodium [Moles/Vol] 141 mmol/L Normal 133-145 [facility] Comment on above: Performed By: #### L 501.2450, L503.6005, L500.4050, L300.8000, L100.0100 #### [facility] [address] [place], [address] T PROT 6.5 g/dL Normal 5.9-8.4 [facility] Comment on above: Performed By: #### L 501.2450, L503.6005, L500.4050, L300.8000, L100.0100 #### [facility] [address] [place], [address] Urea nitrogen [Mass/Vol] 34 mg/dL High 4-19 [facility] Comment on above: Performed By: #### L 501.2450, L503.6005, L500.4050, L300.8000, L100.0100 #### [facility] [address] [place], [address] D-Dimer Quantitative (DVT/PE )on 03-03-2025 D-DIMER QUANT 0.53 FEU/ug/m Invalid Interpretation Code 0.27-0.49 [facility] Comment on above: Result Comment: D-Di nikki ELEVATED (>0.49): Additional studies and clinical assessments are indicated to conclude diagnosis of: Deep Vein Thrombosis (DVT) or Pulmonary Embolism (PE) CRITICAL VALUE CALLED TO RBARTOLONE 03/03/25 0126 Jalen Jonas. RESULTS READ BACK BY SAME. Performed By: #### L 501.2450, L503.6005, L500.4050, L300.8000, L100.0100 #### [facility] [address] [facility] [place], [address] EGD Reporton 03-03-2025 EGD Report [facility] Medical Records Department [address] [place] [address] EGD Report MR#: [id number] Acct: [id number] Name: ASHLEY GÓMEZ Rep #: [id number] : 1955 69 From: Slim Weiss DO [...] pathology results. Procedure Code(s): --- Professional --- 40360, Small intestinal endoscopy, enteroscopy beyond second portion of duodenum, not including ileum; with biopsy, single or multiple CPT copyright 2021 [employer]. All rights reserved. The codes documented in this report are preliminary and upon manufacturing engineer automotive review may be revised to meet current compliance requirements. Slim Weiss DO 03/03/2025 2:03:52 PM This report has been signed electronically. Number of Addenda: 0 Note Initiated On: 03/03/2025 1:55 PM 03/03/25 1404 Date Slim Friend Cosigner Signature: Date (if indicated) CC: Dr. Gasper Nelson DO; lSim Friend, Date Dictated: 03/03/25 1355 Date Transcribed: Hedis Nurse: WES Signed Normal [facility] Echo Completeon 03-03-2025 Echo Complete [facility] [address] [facility] [place] [address] Echo Complete 03/03/25 0947 MR#: [id number] Acct: [id number] Name: ASHLEY GÓMEZ Rep #: [id number] : 1955 69 From: Elisabet Ponce MD Attending Dr: Dr. Bunny Avilez DO Status: A DM IN Ordering Dr: Tonja Jo MD Date: 03/03/25 Location: [facility] Sex: F C Admitted: 03/03/25 Reason [...] DO Date Dictated: 03/03/25946 Date Transcribed: 03/03/251416 Hedis Nurse: Signed Normal [facility] Echocardiogram study reportO rdered By: Elisabet Ponce on 03-03-2025 Study report [facility] [address] [place] [address] Echo Complete 03/03/25946 MR#: [id number] Acct: [id number] Name: ASHLEY GÓMEZ Rep #:[id number] : 1955 69 From: Elisabet Ponce MD Attending Dr: Dr. Bunny Avilez DO Status: ADM IN Ordering Dr: Tonja Jo MD Date: 03/03/25 Location: [facility] Sex: F C Admitted: 03/03/25 Reason [...] Dictated: 03/03/25 0947 Date Transcribed: 03/03/25 1417 Hedis Nurse: Signed [facility] Work Phone: Eosinophil percentageOrdered By: Abdulkadir Peralta on 03-03-2025 Eosinophils/100 WBC (Bld) 0.3 % 0-5 [facility] Erythrocyte distribution wid th ratioOrdered By: Abdulkadir Peralta on 03-03-2025 Erythrocyte distribution width (RBC) [Ratio] 13.3 % 11.6-14.6 [facility] Erythrocyte distribution wid th standard deviationOrdered By: Abdulkadir Peralta on 03-03-2025 Erythrocyte distribution width (RBC) [Ratio] 43.3 fl 35.1-43.9 [facility] Glomerular filtration rate ( GFR) estimation/1.73 sq m using serum, plasma, or whole bOrdered By: Abdulkadir Peralta on 03-03-2025 GFR/1.73 sq M.predicted among non-blacks MDRD (S/P/Bld) [Vol rate/Area] 55 mL/min/{1.73_m2} Low >60 [facility] Comment on above: mL/min/1.73m2 CKD-EP I Creatinine Equation (2020) H AND P Exam - [facility] 03-03-2025 H&P Exam - Hospitalist [facility] Medical Records Department [address] [place] [address] H P Exam - Hospitalist 03/03/25 0313 MR#: [id number] Acct: [id number] Name: ASHLEY GÓMEZ Rep #: [id number] : 1955 69 From: Tonja Jo MD PCP: Dr. Gasper Nelson DO Status:ADM IN Location: [facility] [id number] HPI - General General Date of Admission: [...] therapy of note who presents to the [facility] ED on 03/03/2025 with history of approximately 72 hours of onset of malaise, fatigue with nausea and emesis reportedly hospitalized in [place] however she left AMA to return to [facility] reporting that she has been having hematemesis [...] none current occupational status: employed current occupation: [employer] Smoking Status: Current every day smoker tobacco type: cigarettes Tobacco: How many years used: 4 alcohol intake: former substance use type: does not use ROS ROS Narrative Admission Review of Systems: CONSTITUTIONAL: No weight loss, fever, chills, + weakness or fatigue. HEENT: Eyes: No visual loss, blurred vision, double vision or yellow sclerae. Ears, Nose, Throat: No hear (more content not included)... Normal [facility] Hematocrit Auto (Bld) [Volum e fraction]Ordered By: Abdulkadir Peralta on 03-03-2025 Hematocrit (Bld) [Volume fraction] 46.5 % 37-47 [facility] Hemoglobin measurementOrdere d By: Abdulkadir Peralta on 03-03-2025 Hemoglobin (Bld) [Mass/Vol] 15.9 g/dL High 12.0-15.0 [facility] Hyaline casts LM.LPF (Urine sed) [#/Area][facility]: [facility]-2025 Hyaline casts (Urine sed) [#/Area] 0 /[LPF] 0-5 [facility] Immature granulocytes/100 WB C Auto (Bld)Ordered By: Ltac, [facility]ated [facility] on 03-03-2025 Immature granulocytes/100 WBC (Bld) 0.400 % 0.0-0.9 [facility] Comment on above: IG% - Immature Granu locytes (promyelocytes, myelocytes and metamyelocytes) > 1% indicates that a LEFT SHIFT is Present. Ketones Test strip Ql (U)Ord ered By: [facility] on 03-03-2025 Ketones Ql (U) 50 mg/dl High Negative [facility] L499.0042on 03-03-2025 Trop T High Sen 93 ng/L Invalid Interpretation Code <=14 [facility] Comment on above: Result Comment: Crit ical Result(s) Called at: 03/03/2025-05:28 by: Siomara Jo to Sade Bonds.??Results read back by same. Critical Result(s) Called at: by:??Results read back by same. Performed By: #### L 501.2450, L503.6005, L500.4050, L300.8000, L100.0100 #### [facility] [address] [place], [address] L499.0043on 03-03-2025 Trop T High Sen 88 ng/L Invalid Interpretation Code <=14 [facility] Comment on above: Result Comment: Crit ical Result(s) Called at 0650: by: ASHUTOSH WOMACK TO [facility]. ??Results read back by same. Performed By: #### L 501.2450, L503.6005, L500.4050, L300.8000, L100.0100 #### [facility] [address] [place], [address] Trop T High Sen Normal <=14 [facility] Comment on above: Result Comment: Canc elled via OM: Order edited - Discontinuing original order Performed By: #### L 501.2450, L503.6005, L500.4050, L300.8000, L100.0100 #### [facility] [address] [place], [address] L501.4021on 03-03-2025 Trop T High Sen 91 ng/L Invalid Interpretation Code <=14 [facility] Comment on above: Result Comment: Crit ical Result(s) Called at: 03/03/2025-02:22 by: Siomara Jo to Mitch Saenz.??Results read back by same. Performed By: #### L 501.2450, L503.6005, L500.4050, L300.8000, L100.0100 #### [facility] [address] [place], [address] L509.7001on 03-03-2025 Procalcitonin 0.05 ng/mL Normal <=0.10 [facility] Comment on above: Result Comment: Inte rpretation: [...] L 501.2450, L503.6005, L500.4050, L300.8000, L100.0100 #### [facility] [address] [place], [address] Laboratory - Chemistry and C hemistry - challengeOrdered By: Tonja Jo on 03-03-2025 AST [Catalytic activity/Vol] 37 U/L High <32 [facility] Laboratory - Chemistry and C hemistry - challengeOrdered By: Abdulkadir Peralta on 03-03-2025 AST [Catalytic activity/Vol] 40 U/L High <32 [facility] Lactic Acidon 03-03-2025 Lactate [Moles/Vol] mmol/L Normal 0.0-2.0 [facility] Comment on above: Performed By: #### L 503.6005 #### [facility] [address] [place], [place], [address] Lactate [Moles/Vol] 2.4 mmol/L Invalid Interpretation Code 0.0-2.0 [facility] Comment on above: Order Comment: Y Result Comment: Crit ical Result(s) Called at: 03/03/2025-02:08 by: Siomara Chiu.??Results read back by same. Performed By: #### L 501.2450, L503.6005, L500.4050, L300.8000, L100.0100 #### [facility] [address] [place], [place], [address] Lactic acid measurementOrder ed By: Abdulkadir Peralta on 03-03-2025 Lactate [Moles/Vol] mmol/L 0.0-2.0 [facility] Lactate [Moles/Vol] 2.4 mmol/L High 0.0-2.0 [facility] Comment on above: Critical Result(s) C alled at: 03/03/2025-02:08 by: Siomara Chiu. Results read back by same. Lipaseon 03-03-2025 Lipase [Catalytic activity/Vol] 18 U/L Normal 13-75 [facility] Comment on above: Result Comment: Brandon strong note: LIPASE revised reference range effective 22. New Lipase methodology. Expected to produce lower values than the previous assay method. NEW Reference Range: 13 - 75 U/L Performed By: #### L 501.2450, L503.6005, L500.4050, L300.8000, L100.0100 #### [facility] [address] [place], [address] Lipase measurementOrdered By : Abdulkadir Peralta on 03-03-2025 Lipase [Catalytic activity/Vol] 18 U/L 13-75 [facility] Comment on above: Please note:LIPASE r evised reference range effective 22. New Lipase methodology. Expected to produce lower values than the previous assay method. NEW Reference Range: 13 - 75 U/L MCV (mean corpuscular volume ) determinationOrdered By: Abdulkadir Peralta on 03-03-2025 MCV (RBC) [Entitic vol] 89.3 fL 81-99 [facility] MR/POSTOP.ANEon 03-03-2025 MR/POSTOP.[facility] Medical Records Department [address] [place] [address] Anesthesia Postop Eval I 03/03/251407 MR#: [id number] Acct: [id number] Name: ASHLEY GÓMEZ Rep #: [id number] : 1955 69 From: Mack Stone CRNA PCP: Dr. Gasper Nelson, DO Status:ADM IN Y Race: C Location: [place] [address] Anesthesia: Postop Eval I Current Vital Signs Temperature: 99.4 F Pulse Rate: 91 Blood Pressure: 132/69 Respiratory Rate: 16 Pulse Ox: 99 Assessment Airway patent: Yes Spontaneous unlabored respirations: Yes nausea: No Vomiting: No Anesthesia Complication: No Fluid Hydration Crystalloid volume administer (ml): 200 Total IV fluid infused: 200 Progress Note Anesthesia document: Postop Eval 1 completed: Yes 03/03/251407 Date Mack Stone RADIO INTELLIGENCE OPERATOR Cosigner Signature: Date CC: Signed Normal [facility] [id number] 03-03-2025 MR/POSTOPAN2 [facility] Medical Records Department [address] [place] [address] Anesthesia Postop Eval II 03/03/25 1645 MR#: [id number] Acct: [id number] Name: ASHLEY GÓMEZ Rep #: [id number] : 1955 69 From: Peyton Christopher CRNA PCP: Dr. Gasper Nelson, DO Status:ADM IN Y Race: C Location: [place] [address] Anesthesia Postop Eval I Sum Postop Eval Completion status Anesthesia document: Postop Eval 1 completed: Yes Anesthesia Postop Eval I Summary Anesthesia Postop Eval I Summary: Anesthesia Postop Eval I: Assessment Summary Airway patent Yes 03/03/25 14:08 RADIO INTELLIGENCE OPERATOR.TNES Spontaneous unlabored Yes 03/03/25 14:08 RADIO INTELLIGENCE OPERATOR.TNES respirations Mental status nausea No 03/03/25 14:08 RADIO INTELLIGENCE OPERATOR.TNES Vomiting No 03/03/25 14:08 RADIO INTELLIGENCE OPERATOR.TNES Anesthesia Postop Eval I: Fluid Summary Crystalloid volume administer 200 03/03/25 14:08 RADIO INTELLIGENCE OPERATOR.TNES (ml) Colloids volume administered ( ml) Blood Product volume administered (ml) Total IV fluid infused 200 03/03/25 14:08 RADIO INTELLIGENCE OPERATOR.TNES Anesthesia Postop Eval I: Summary Notes Anesthesia Complication No 03/03/25 14:08 RADIO INTELLIGENCE OPERATOR.TNES Anesthesia Complication Comment: Post-operative progress note Anesthesia: Postop Eval II Evaluation Mental status: Awake Pain Level: 1 nausea: No Vomiting: No 03/03/25 1646 Date Peyton Christopher RADIO INTELLIGENCE OPERATOR Cosigner Signature: Date CC: Signed Normal [facility] Magnesiumon 03-03-2025 Magnesium [Mass/Vol] 2.0 mg/dL Normal 1.5-2.2 [facility] Comment on above: Order Comment: Comme nts: may add to ED labs Performed By: #### L 501.2450, L503.6005, L500.4050, L300.8000, L100.0100 #### [facility] [address] [place], [address] Mean corpuscular hemoglobin (MCH) determinationOrdered By: Abdulkadir Peralta on 03-03-2025 MCH (RBC) [Entitic mass] 30.5 pg 27.0-32.0 [facility] Mean corpuscular hemoglobin concentration (MCHC) determinationOrdered By: Abdulkadir Peralta on 03-03-2025 MCHC (RBC) [Mass/Vol] 34.2 g/dL 32-36 [facility] Mean platelet volume determi nationOrdered By: Abdulkadir Peralta on 03-03-2025 Platelet mean volume (Bld) [Entitic vol] 10.1 fL 6.2-12.0 [facility] Microscopic analysis of urin e for red blood cells (RBC)Ordered By: Abdulkadir Peralta on 03-03-2025 Microscopic analysis of urine for red blood cells (RBC) 5-10 SEEN /hpf 0-5 [facility] Monocyte percentageOrdered B y: Abdulkadir Peralta on 03-03-2025 Monocytes/100 WBC (Bld) 5.4 % 0-10 [facility] Mucus LM Ql (Urine sed)Order ed By: Abdulkaidr Peralta on 03-03-2025 Mucus Ql (Urine sed) 0 SEEN /hpf [facility] Neutrophil percentageOrdered By: Abdulkadir Peralta on 03-03-2025 Neutrophils/100 WBC (Bld) 82.4 % High 47-70 [facility] Nitrite Test strip Ql (U)Ord ered By: Abdulkadir Peralta on 03-03-2025 Nitrite Ql (U) Negative Negative [facility] Nucleated red blood cell per centageOrdered By: Abdulkadir Peralta on 03-03-2025 Nucleated RBC/100 WBC (Bld) [Ratio] 0 % 0-5 [facility] Platelet countOrdered By: Sol Peralta on 03-03-2025 Platelets (Bld) [#/Vol] 281 10*3/uL 150-450 [facility] Potassium measurement (mass/ volume)Ordered By: Abdulkadir Peralta on 03-03-2025 Potassium (Unsp spec) [Mass/Vol] 3.4 mmol/L 3.3-5.1 [facility] Procalcitonin [Mass/volume] in Serum or Plasma by ImmunoassayOrdered By: Tonja Jo on 03-03-2025 Procalcitonin IA [Mass/Vol] 0.05 ng/mL <0.11 [facility] Comment on above: Interpretation:<0.10 -0.25 ng/mL: Antibiotic [...] Protein Ql (U) 15 mg/dl High Negative [facility] RBC Auto (Bld) [#/Vol]Ordere d By: Abdulkadir Peralta on 03-03-2025 RBC (Bld) [#/Vol] 5.21 10*6/uL 4.2-5.4 [facility] RESPIRATORY PANEL MOLECULARo n 03-03-2025 RP PANEL ADENOVIRUS Not Detected INFLUENZA A Not Detected INFLUENZA A (SUBTYPE H1) Not Detected INFLUENZA A (SUBTYPE H3) Not Detected INFLUENZA B Not Detected HUMAN METAPHNEUMO Not Detected PARAINFLUENZA 1 Not Detected PARAINFLUENZA 2 Not Detected PARAINFLUENZA 3 Not Detected PARAINFLUENZA 4 Not Detected RHINOVIRUS Not Detected RSV A Not Detected RSV B Not Detected Normal [facility] Comment on above: Performed By: #### L 501.3810, L503.6005, L500.4050, L300.8000, L100.0100 #### [facility] [address] [place], [address] Respiratory pathogens detect ion panel by molecular detection methodOrdered By: Tonja Jo on 03-03-2025 Respiratory pathogens DNA and RNA panel SHYLA+probe (Resp) [facility] Serum creatinine measurement (mass/volume)Ordered By: Abdulkadir Peralta on 03-03-2025 Creatinine [Mass/Vol] 1.09 mg/dL 0.70-1.20 [facility] [facility] Serum globulin measurementOr dered By: Tonja Jo on 03-03-2025 Globulin (S) [Mass/Vol] 2.4 g/dL 2.2-4.2 [facility] Serum globulin measurementOr dered By: Abdulkadir Peralta on 03-03-2025 Globulin (S) [Mass/Vol] 2.7 g/dL 2.2-4.2 [facility] Serum glucose measurement (m ass/volume)Ordered By: Abdulkadir Peralta on 03-03-2025 Glucose [Mass/Vol] 154 mg/dL High 70-99 [facility] Serum or plasma alanine marin otransferase (ALT) measurementOrdered By: Tonja Jo on 03-03-2025 ALT [Catalytic activity/Vol] 36 U/L High <35 [facility] Serum or plasma alanine marin otransferase (ALT) measurementOrdered By: Abdulkadir Peralta on 03-03-2025 ALT [Catalytic activity/Vol] 40 U/L High <35 [facility] Serum or plasma albumin janneth urement (mass/volume)Ordered By: Tonja Jo on 03-03-2025 Albumin [Mass/Vol] 4.1 g/dL 3.4-4.8 [facility] Serum or plasma albumin janneth urement (mass/volume)Ordered By: Abdulkadir Peralta on 03-03-2025 Albumin [Mass/Vol] 4.4 g/dL 3.4-4.8 [facility] Serum or plasma albumin/glob ulin mass ratioOrdered By: Tonja Jo on 03-03-2025 Albumin/Globulin [Mass ratio] 1.7 {ratio} 0.9-2.4 [facility] Serum or plasma albumin/glob ulin mass ratioOrdered By: Abdulkadir Ungrachel on 03-03-2025 Albumin/Globulin [Mass ratio] 1.6 {ratio} 0.9-2.4 [facility] Serum or plasma alkaline robert sphatase measurementOrdered By: Tonja Jo on 03-03-2025 ALP [Catalytic activity/Vol] 73 U/L 35-104 [facility] Serum or plasma alkaline robert sphatase measurementOrdered By: Remus Puentesrachel on 03-03-2025 ALP [Catalytic activity/Vol] 78 U/L 35-104 [facility] Serum or plasma calcium janneth urement (mass/volume)Ordered By: Remus Ungur on 03-03-2025 Calcium [Mass/Vol] 10.5 mg/dL 7.6-11.0 [facility] Serum or plasma urea nitroge n measurement (mass/volume)Ordered By: Remus Ungur on 03-03-2025 Urea nitrogen [Mass/Vol] 36 mg/dL High 4-19 [facility] Sodium levelOrdered By: Remu s Ungrachel on 03-03-2025 Sodium [Moles/Vol] 138 mmol/L 133-145 [facility] Squamous epithelial cells de tection in urine sediment by light microscopyOrdered By: Remus Ungrachel on 03-03-2025 Epithelial cells.squamous LM Ql (Urine sed) 0-5 SEEN /hpf 5-10 [facility] Total proteinOrdered By: Hyacinth Jo on 03-03-2025 Protein [Mass/Vol] 6.5 g/dL 5.9-8.4 [facility] Total proteinOrdered By: Rem us Peralta on 03-03-2025 Protein [Mass/Vol] 7.0 g/dL 5.9-8.4 [facility] Troponin T.cardiac [Mass/vol ume] in Serum or Plasma by High sensitivity methodOrdered By: Tonja Jo on 03-03-2025 Troponin T.cardiac High sensitivity method [Mass/Vol] 88 ng/L High <14 [facility] Comment on above: Critical Result(s) C alled at 0650: by: ASHUTOSH WOMACK TO RHYS. Results read back by same. Troponin T.cardiac [Mass/vol ume] in Serum or Plasma by High sensitivity methodOrdered By: Abdulkadir Peralta on 03-03-2025 Troponin T.cardiac High sensitivity method [Mass/Vol] 93 ng/L High <14 [facility] Comment on above: Critical Result(s) C alled at: 03/03/2025-05:28 by: Siomara Jo to Sade Bonds. Results read back by same.Critical Result(s) Called at: by: Results read back by same. Troponin T.cardiac High sensitivity method [Mass/Vol] 91 ng/L High <14 [facility] Comment on above: Critical Result(s) C alled at: 03/03/2025-02:22 by: Siomara Jo to Mitch Saenz. Results read back by same. Urinalysis, Completeon 03-03 CAST,HYALINE 0-5 SEEN Normal 0-5 [facility] Comment on above: Order Comment: COLLE CTOR TO SPECIFY Performed By: #### L 501.2450, L503.6005, L500.4050, L300.8000, L100.0100 #### [facility] Laboratory [address] [place], [address] EPI,SQUAMOUS 0-5 SEEN Normal 5-10 [facility] Comment on above: Order Comment: COLLE CTOR TO SPECIFY Performed By: #### L 501.2450, L503.6005, L500.4050, L300.8000, L100.0100 #### [facility] [address] [place], [address] RBC 5-10 SEEN Normal 0-5 [facility] Comment on above: Order Comment: COLLE CTOR TO SPECIFY Performed By: #### L 501.2450, L503.6005, L500.4050, L300.8000, L100.0100 #### [facility] [address] [place], [address] WBC 0-5 SEEN Normal 0-5 [facility] Comment on above: Order Comment: COLLE CTOR TO SPECIFY Performed By: #### L 501.2450, L503.6005, L500.4050, L300.8000, L100.0100 #### [facility] [address] [place], [address] BILIRUBIN URINE Negative Normal Negative [facility] Comment on above: Order Comment: COLLE CTOR TO SPECIFY Performed By: #### L 501.2450, L503.6005, L500.4050, L300.8000, L100.0100 #### [facility] [address] [place], [address] Clarity (U) Clear Normal Clear [facility] Comment on above: Order Comment: COLLE CTOR TO SPECIFY Performed By: #### L 501.2450, L503.6005, L500.4050, L300.8000, L100.0100 #### [facility] [address] [place], [address] Color (U) Yellow Normal Yellow [facility] Comment on above: Order Comment: COLLE CTOR TO SPECIFY Performed By: #### L 501.2450, L503.6005, L500.4050, L300.8000, L100.0100 #### [facility] [address] [place], [address] GLUCOSE, UR Normal Normal Normal [facility] Comment on above: Order Comment: COLLE CTOR TO SPECIFY Performed By: #### L 501.2450, L503.6005, L500.4050, L300.8000, L100.0100 #### [facility] [address] [place], [address] KETONE UR 50 mg/dl Abnormal Negative [facility] Comment on above: Order Comment: COLLE CTOR TO SPECIFY Performed By: #### L 501.2450, L503.6005, L500.4050, L300.8000, L100.0100 #### [facility] [address] [place], [address] LEUK ESTERASE Negative Normal Negative [facility] Comment on above: Order Comment: COLLE CTOR TO SPECIFY Performed By: #### L 501.2450, L503.6005, L500.4050, L300.8000, L100.0100 #### [facility] [address] [place], [address] Nitrite Ql (U) Negative Normal Negative [facility] Comment on above: Order Comment: COLLE CTOR TO SPECIFY Performed By: #### L 501.2450, L503.6005, L500.4050, L300.8000, L100.0100 #### [facility] [address] [place], [address] OCCULT BLOOD-UR 10 /ul Abnormal Negative [facility] Comment on above: Order Comment: REBECCA CTOR TO SPECIFY Performed By: #### L 501.2450, L503.6005, L500.4050, L300.8000, L100.0100 #### [facility] [address] [place], [address] pH UR 6.0 Normal 5.0 - 8.0 [facility] Comment on above: Order Comment: REBECCA CTOR TO SPECIFY Performed By: #### L 501.2450, L503.6005, L500.4050, L300.8000, L100.0100 #### [facility] [address] [place], [address] PROT DIPSTX 15 mg/dl Abnormal Negative [facility] Comment on above: Order Comment: REBECCA CTOR TO SPECIFY Performed By: #### L 501.2450, L503.6005, L500.4050, L300.8000, L100.0100 #### [facility] [address] [place], [address] SP.GR. DIPSTX 1.015 Normal 1.002-1.030 [facility] Comment on above: Order Comment: REBECCA CTOR TO SPECIFY Performed By: #### L 501.2450, L503.6005, L500.4050, L300.8000, L100.0100 #### [facility] [address] [place], [address] UROBILI Normal Normal Normal [facility] Comment on above: Order Comment: REBECCA CTOR TO SPECIFY Performed By: #### L 501.2450, L503.6005, L500.4050, L300.8000, L100.0100 #### [facility] [address] [place], [address] BACTERIA 0 SEEN Normal None Seen [facility] Comment on above: Order Comment: REBECCA CTOR TO SPECIFY Performed By: #### L 501.2450, L503.6005, L500.4050, L300.8000, L100.0100 #### [facility] [address] [place], [address] Mucus Ql (Urine sed) 0 SEEN Normal [facility] Comment on above: Order Comment: REBECCA CTOR TO SPECIFY Performed By: #### L 501.2450, L503.6005, L500.4050, L300.8000, L100.0100 #### [facility] [address] [place], [address] Urine clarityOrdered By: Katrina Peralta on 03-03-2025 Clarity (U) Clear Clear [facility] Urine color determinationOrd ered By: Abdulkadir Peralta on 03-03-2025 Color (U) Yellow Yellow [facility] Urine glucose detectionOrder ed By: Abdulkadir Peralta on 03-03-2025 Glucose Ql (U) Normal mg/dl Normal [facility] Urine leukocyte esterase det ection by dipstickOrdered By: Abdulkadir Peralta on 03-03-2025 Leukocyte esterase Test strip Ql (U) Negative Negative [facility] Urine pHOrdered By: Abdulkadir Un gur on 03-03-2025 pH (U) 6.0 [pH] 5.0 - 8.0 [facility] Urine sediment bacteria coun t by microscopy (number/high power field)Ordered By: Abdulkadir Peralta on 03-03-2025 Bacteria LM.HPF (Urine sed) [#/Area] 0 /[HPF] None Seen [facility] Urine specific gravity measu rementOrdered By: Abdulkadir Peralta on 03-03-2025 Specific gravity (U) [Rel density] 1.015 1.002-1.030 [facility] Urine urobilinogen measureme ntOrdered By: Abdulkadir Peralta on 03-03-2025 Urobilinogen Ql (U) Normal mg/dl Normal [facility] White blood cell (WBC) count Ordered By: Abdulkadir Peralta on 03-03-2025 WBC (Bld) [#/Vol] 22.9 10*3/uL High 4.4-11.0 [facility] White blood cell countOrdere d By: Abdulkadir Peralta on 03-03-2025 White blood cell count 0-5 SEEN /hpf 0-5 [facility] 12 Lead EKGon 03-02-2025 12 Lead EKG [facility] [address] [place] [address] 12 Lead EKG 03/02/25 2340 MR#: [id number] Acct: [id number] Name: ASHLEY GÓMEZ Rep #: [id number] : 1955 69 From: Ezequiel Gusman MD Attending Dr: Dr. Bunny Avilez DO Status: A DM IN Ordering Dr: Abdulkadir Peralta DO Date: 03/02/25 Location: [facility] Sex: F C Admitted: 03/03/25 Test [...] ECG Confirmed by MURTAZA CHISHOLM, EZEQUIEL ([id number]), online editor OSWALD ROSA ([id number]) on 03/04/2025 6:37:00 AM Referred By: KEVIN Confirmed By: EZEQUIEL GUSMAN MD 03/04/25 0637 Date Ezequiel Gusman MD CC: Dr. Gasper Nelson DO; Dr. Bunny Avilez DO; Dr. Abdulkadir Peralta DO Signed Normal [facility] Chest 1 View (Portable)on Chest 1 View (Portable) [facility] Imaging Services [address] [place] [address] Chest 1 View (Portable) MR#: [id number] Acct: [id number] Name: ASHLEY GÓMEZ Rep #: [id number] : 1955 F 69 From: Ruddy Vidales MD PCP: Dr. Gasper Nelson DO Status: REG ER Study: Chest 1 View (Portable) Date of Exam: 03/02/25 Exam# [id number] Ordering Dr: Abdulkadir Peralta DO PROCEDURE: CHEST 1 VIEW (PORTABLE) 03/03/2025 REASON FOR EXAM: DYSPNEA TECHNIQUE: Frontal view of the chest. COMPARISON: 02/15/2025 FINDINGS: Scoliosis. Normal heart size. Well inflated lungs. No consolidation, effusion, or pneumothorax. RAD/Chest 1 View (Portable) IMPRESSION: No acute chest findings Reading Location: [place] [address] CC: Dr. Gasper Nelson DO; Dr. Abdulkadir Peralta DO [place] Nurse: Signed Normal [facility] Emergency Department Summary on 03-02-2025 Emergency Department Summary [facility] Medical Records Department [address] [place] [address] Emergency Department Summary 03/02/25 MR#: [id number] Acct: [id number] Name: ASHLEY GÓMEZ Rep #: [id number] : 1955 69 From: Abdulkadir Peralta DO PCP: Dr. Gasper Nelson DO Status:ADM IN Location: [address] History of Present Illness Chief Complaint: [...] wear home O2. She denies any diarrhea. [facility] Medical History Hypokalemia Smoker Hypoxia COPD [...] none current occupational status: employed current occupation: [employer] Smoking Status: Current every day smoker tobacco [...] Method Room (more content not included)... Normal [facility] 36on 02-24-2025 36 Recent Visits Date Type Provider Dept 11/12/24 Office Visit Siomara Estrada PA-C [facility] Showing recent visits within past 365 days and meeting all other requirements Future Appointments Date Type Provider Dept 05/12/25 Appointment Gasper Nelson DO [facility] Showing future appointments within next 90 [...] recent labs completed in chart? N/A Normal [facility] Anion gap in Serum or Plasma Ordered By: Bunny Avilez on 02-17-2025 Anion gap [Moles/Vol] 12 mmol/L 01-16 [facility] BUN/creatinine ratioOrdered By: Bunny Avilez on 02-17-2025 Urea nitrogen/Creatinine [Mass ratio] 34.6 mg/mg High 06-23 [facility] Basic Metabolic Profile (BMP )on 02-17-2025 BUN/CRE 34.6 RATIO High 06-23 [facility] Comment on above: Performed By: #### L 501.2450, L503.6005, L500.4050, L300.8000, L100.0100 #### [facility] Laboratory [address] [place], [address] Calcium [Mass/Vol] 9.9 mg/dL Normal 7.6-11.0 [facility] Comment on above: Performed By: #### L 501.2450, L503.6005, L500.4050, L300.8000, L100.0100 #### [facility] [address] [place], [address] Chloride [Moles/Vol] 103 mmol/L Normal 98-108 [facility] Comment on above: Performed By: #### L 501.2450, L503.6005, L500.4050, L300.8000, L100.0100 #### [facility] [address] [place], [address] CO2 [Moles/Vol] 25.7 mmol/L Normal 21.0-32.0 [facility] Comment on above: Performed By: #### L 501.2450, L503.6005, L500.4050, L300.8000, L100.0100 #### [facility] Laboratory [address] [place], [address] Creatinine [Mass/Vol] 0.68 mg/dL Low 0.70-1.20 [facility] Comment on above: Performed By: #### L 501.2450, L503.6005, L500.4050, L300.8000, L100.0100 #### [facility] Laboratory [address] [place], [address] ECRCL 53.82 ml/min Normal 50-250 [facility] Comment on above: Performed By: #### L 501.2450, L503.6005, L500.4050, L300.8000, L100.0100 #### [facility] [address] [place], [address] GAP 12 Normal 5-15 [facility] Comment on above: Performed By: #### L 501.2450, L503.6005, L500.4050, L300.8000, L100.0100 #### [facility] Laboratory [address] [place], [address] GFR/1.73 sq M.predicted among non-blacks MDRD (S/P/Bld) [Vol rate/Area] 94 mL/min/{1.73_m2} Normal >60 [facility] Comment on above: Result Comment: mL/m in/1.73m2 CKD-EPI Creatinine Equation (2020) Performed By: #### L 501.2450, L503.6005, L500.4050, L300.8000, L100.0100 #### [facility] [address] [place], [address] Glucose [Mass/Vol] 102 mg/dL High 70-99 [facility] Comment on above: Performed By: #### L 501.2450, L503.6005, L500.4050, L300.8000, L100.0100 #### [facility] [address] [place], [address] Potassium [Moles/Vol] 4.4 mmol/L Normal 3.3-5.1 [facility] Comment on above: Performed By: #### L 501.2450, L503.6005, L500.4050, L300.8000, L100.0100 #### [facility] [address] [place], [address] Sodium [Moles/Vol] 140 mmol/L Normal 133-145 [facility] Comment on above: Performed By: #### L 501.2450, L503.6005, L500.4050, L300.8000, L100.0100 #### [facility] [address] [place], [address] Urea nitrogen [Mass/Vol] 23 mg/dL High 4-19 [facility] Comment on above: Performed By: #### L 501.2450, L503.6005, L500.4050, L300.8000, L100.0100 #### [facility] [address] [place], [address] Carbon dioxide, total [Moles /volume] in Central venous bloodOrdered By: Bunny Avilez on 02-17-2025 CO2 [Moles/Vol] 25.7 mmol/L 21.0-32.0 [facility] Chloride assayOrdered By: Malaika Avilez on 02-17-2025 Chloride [Moles/Vol] 103 mmol/L 98-108 [facility] Discharge Instructionon 02-02 Discharge Instruction [facility] Medical Records Department [address] [place] [address] Instructions for Home/Discharge Instructions 02/17/25 1052 MR#: [id number] Acct: [id number] Name: ASHLEY GÓMEZ Rep #: [id number] : 1955 69 From: Bunny Avilez DO [...] CC: Dr. Danish Davila DO Signed Normal [facility] Glomerular filtration rate ( GFR) estimation/1.73 sq m using serum, plasma, or whole bOrdered By: Bunny Avilez on 02-17-2025 GFR/1.73 sq M.predicted among non-blacks MDRD (S/P/Bld) [Vol rate/Area] 94 mL/min/{1.73_m2} >60 [facility] Comment on above: mL/min/1.73m2 CKD-EP I Creatinine Equation (2020) Potassium measurement (mass/ volume)Ordered By: Bunny Avilez on 02-17-2025 Potassium (Unsp spec) [Mass/Vol] 4.4 mmol/L 3.3-5.1 [facility] Serum creatinine measurement (mass/volume)Ordered By: Bunny Avilez on 02-17-2025 Creatinine [Mass/Vol] 0.68 mg/dL Low 0.70-1.20 [facility] Serum glucose measurement (m ass/volume)Ordered By: Bunny Avilez on 02-17-2025 Glucose [Mass/Vol] 102 mg/dL High 70-99 [facility] Serum or plasma calcium janneth urement (mass/volume)Ordered By: Bunny Avilez on 02-17-2025 Calcium [Mass/Vol] 9.9 mg/dL 7.6-11.0 [facility] Serum or plasma urea nitroge n measurement (mass/volume)Ordered By: Bunny Avilez on 02-17-2025 Urea nitrogen [Mass/Vol] 23 mg/dL High 4-19 [facility] Sodium levelOrdered By: Bunny Avilez on 02-17-2025 Sodium [Moles/Vol] 140 mmol/L 133-145 [facility] Basic Metabolic Profile (BMP )on 02-16-2025 BUN/CRE 28.6 RATIO High 10-20 [facility] Comment on above: Performed By: #### L 501.2450, L503.6005, L500.4050, L300.8000, L100.0100 #### [facility] [address] [place], [address] Calcium [Mass/Vol] 10.4 mg/dL Normal 7.6-11.0 [facility] Comment on above: Performed By: #### L 501.2450, L503.6005, L500.4050, L300.8000, L100.0100 #### [facility] [address] [place], [address] Chloride [Moles/Vol] 106 mmol/L Normal 98-108 [facility] Comment on above: Performed By: #### L 501.2450, L503.6005, L500.4050, L300.8000, L100.0100 #### [facility] [address] [place], [address] CO2 [Moles/Vol] 24.1 mmol/L Normal 21.0-32.0 [facility] Comment on above: Performed By: #### L 501.2450, L503.6005, L500.4050, L300.8000, L100.0100 #### [facility] [address] [place], [address] Creatinine [Mass/Vol] 0.68 mg/dL Low 0.70-1.20 [facility] Comment on above: Performed By: #### L 501.2450, L503.6005, L500.4050, L300.8000, L100.0100 #### [facility] [address] [place], [address] ECRCL 53.82 ml/min Normal 50-250 [facility] Comment on above: Performed By: #### L 501.2450, L503.6005, L500.4050, L300.8000, L100.0100 #### [facility] [address] [place], [address] GAP 12 Normal 5-15 [facility] Comment on above: Performed By: #### L 501.2450, L503.6005, L500.4050, L300.8000, L100.0100 #### [facility] [address] [place], [address] GFR/1.73 sq M.predicted among non-blacks MDRD (S/P/Bld) [Vol rate/Area] 94 mL/min/{1.73_m2} Normal >60 [facility] Comment on above: Result Comment: mL/m in/1.73m2 CKD-EPI Creatinine Equation (2020) Performed By: #### L 501.2450, L503.6005, L500.4050, L300.8000, L100.0100 #### [facility] [address] [place], [address] Glucose [Mass/Vol] 110 mg/dL High 70-99 [facility] Comment on above: Performed By: #### L 501.2450, L503.6005, L500.4050, L300.8000, L100.0100 #### [facility] [address] [place], [address] Potassium [Moles/Vol] 5.5 mmol/L High 3.3-5.1 [facility] Comment on above: Result Comment: Hemo lysis present, Results??could be affected. ?? Performed By: #### L 501.2450, L503.6005, L500.4050, L300.8000, L100.0100 #### [facility] [address] [place], [address] Sodium [Moles/Vol] 142 mmol/L Normal 133-145 [facility] Comment on above: Performed By: #### L 501.2450, L503.6005, L500.4050, L300.8000, L100.0100 #### [facility] [address] [place], [address] Urea nitrogen [Mass/Vol] 19 mg/dL Normal 4-19 [facility] Comment on above: Performed By: #### L 501.2450, L503.6005, L500.4050, L300.8000, L100.0100 #### [facility] [address] [place], [address] 12 Lead EKGon 02-15-2025 12 Lead EKG [facility] [address] [place] [address] 12 Lead EKG 02/15/25 0839 MR#: [id number] Acct: [id number] Name: ASHLEY GÓMEZ Rep #: [id number] : 1955 69 From: Ezequiel Gusman MD [...] Normal ECG Confirmed by MURTAZA CHISHOLM, EZEQUIEL ([id number]), online editor TIFFANI BENZ ([id number]) on 02/18/2025 8:22:27 AM Referred By: JOMAR Confirmed By: EZEQUIEL GUSMAN MD 02/18/25821 Date Ezequiel Gusman MD CC: Dr. Wilfred Bryan MD; Dr. Bunny Avilez DO; Dr. Danish Davila DO Signed Normal [facility] Absolute lymphocyte countOrd ered By: Wilfred Bryan on 02-15-2025 Lymphocytes Auto (Unsp spec) [#/Vol] 1.81 10*3/uL 0.83-4.51 [facility] Absolute neutrophil countOrd ered By: Wilfred Bryan on 02-15-2025 Neutrophils (Bld) [#/Vol] 7.2 10*3/uL 2.0-7.7 [facility] Anion gap in Serum or Plasma Ordered By: Wilfred Bryan on 02-15-2025 Anion gap [Moles/Vol] 13 mmol/L 5-15 [facility] Automated lymphocyte count a s percentage of total leukocytesOrdered By: Wilfred Bryan on 02-15-2025 Lymphocytes/100 WBC Auto (Unsp spec) 19.2 % 19-41 [facility] BUN/creatinine ratioOrdered By: Wilfred Bryan on 02-15-2025 Urea nitrogen/Creatinine [Mass ratio] 22.4 mg/mg High 10-20 [facility] Basic Metabolic Profile (BMP )on 02-15-2025 BUN/CRE 22.4 RATIO High 10-20 [facility] Comment on above: Performed By: #### L 501.2450, L503.6005, L500.4050, L300.8000, L100.0100 #### [facility] [address] [place], [address] Calcium [Mass/Vol] 9.8 mg/dL Normal 7.6-11.0 [facility] - [place] Comment on above: Performed By: #### L 501.2450, L503.6005, L500.4050, L300.8000, L100.0100 #### [facility] [address] [place], [address] Chloride [Moles/Vol] 101 mmol/L Normal 98-108 [facility] Comment on above: Performed By: #### L 501.2450, L503.6005, L500.4050, L300.8000, L100.0100 #### [facility] [address] [place], [address] CO2 [Moles/Vol] 26.3 mmol/L Normal 21.0-32.0 [facility] Comment on above: Performed By: #### L 501.2450, L503.6005, L500.4050, L300.8000, L100.0100 #### [facility] [address] [place], [address] Creatinine [Mass/Vol] 0.75 mg/dL Normal 0.70-1.20 [facility] Comment on above: Performed By: #### L 501.2450, L503.6005, L500.4050, L300.8000, L100.0100 #### [facility] [address] [place], [address] ECRCL 53.51 ml/min Normal 50-250 [facility] Comment on above: Performed By: #### L 501.2450, L503.6005, L500.4050, L300.8000, L100.0100 #### [facility] [address] [place], [address] GAP 13 Normal 5-15 [facility] Comment on above: Performed By: #### L 501.2450, L503.6005, L500.4050, L300.8000, L100.0100 #### [facility] [address] [place], [address] GFR/1.73 sq M.predicted among non-blacks MDRD (S/P/Bld) [Vol rate/Area] 86 mL/min/{1.73_m2} Normal >60 [facility] Comment on above: Result Comment: mL/m in/1.73m2 CKD-EPI Creatinine Equation (2020) Performed By: #### L 501.2450, L503.6005, L500.4050, L300.8000, L100.0100 #### [facility] [address] [place], [address] Glucose [Mass/Vol] 136 mg/dL High 70-99 [facility] [place] Comment on above: Performed By: #### L 501.2450, L503.6005, L500.4050, L300.8000, L100.0100 #### [facility] [address] [place], [address] Potassium [Moles/Vol] 3.2 mmol/L Low 3.3-5.1 [facility] Comment on above: Performed By: #### L 501.2450, L503.6005, L500.4050, L300.8000, L100.0100 #### [facility] [address] [place], [address] Sodium [Moles/Vol] 140 mmol/L Normal 133-145 [facility] [place] Comment on above: Performed By: #### L 501.2450, L503.6005, L500.4050, L300.8000, L100.0100 #### [facility] [address] [place], [address] Urea nitrogen [Mass/Vol] 17 mg/dL Normal 4-19 [facility] Comment on above: Performed By: #### L 501.2450, L503.6005, L500.4050, L300.8000, L100.0100 #### [facility] [address] [place], [address] Basophil percentageOrdered B y: Wilfred Bryan on 02-15-2025 Basophils/100 WBC (Bld) 1.0 % 0-1 [facility] CBC W/Diff, Automatedon 02-02 Absolute Lymph 1.81 X10 3/uL Normal 0.83-4.51 [facility] Comment on above: Performed By: #### L 501.2450, L503.6005, L500.4050, L300.8000, L100.0100 #### [facility] [address] [place], [address] Absolute Neut 7.2 X10 3/uL Normal 2.0-7.7 [facility] Comment on above: Performed By: #### L 501.2450, L503.6005, L500.4050, L300.8000, L100.0100 #### [facility] [address] [place], [address] Basophils/100 WBC (Bld) 1.0 % Normal 0-1 [facility] Comment on above: Performed By: #### L 501.2450, L503.6005, L500.4050, L300.8000, L100.0100 #### [facility] [address] [place], [address] Eosinophils/100 WBC (Bld) 0.7 % Normal 0-5 [facility] Comment on above: Performed By: #### L 501.2450, L503.6005, L500.4050, L300.8000, L100.0100 #### [facility] [address] [place], [address] Erythrocyte distribution width (RBC) [Ratio] 13.2 % Normal 11.6-14.6 [facility] Comment on above: Performed By: #### L 501.2450, L503.6005, L500.4050, L300.8000, L100.0100 #### [facility] [address] [place], [address] Hematocrit (Bld) [Volume fraction] 41.5 % Normal 37-47 [facility] Comment on above: Performed By: #### L 501.2450, L503.6005, L500.4050, L300.8000, L100.0100 #### [facility] [address] [place], [address] Hemoglobin (Bld) [Mass/Vol] 13.6 g/dL Normal 12.0-15.0 [facility] Comment on above: Performed By: #### L 501.2450, L503.6005, L500.4050, L300.8000, L100.0100 #### [facility] [address] [place], [address] IG% 0.200 Normal 0.0-0.9 [facility] Comment on above: Result Comment: IG% - Immature Granulocytes (promyelocytes, myelocytes and metamyelocytes) > 1% indicates that a LEFT SHIFT is Present. Performed By: #### L 501.2450, L503.6005, L500.4050, L300.8000, L100.0100 #### [facility] [address] [place], [address] Lymphocytes/100 WBC (Bld) 19.2 % Normal 19-41 [facility] Comment on above: Performed By: #### L 501.2450, L503.6005, L500.4050, L300.8000, L100.0100 #### [facility] [address] [place], [address] MCH (RBC) [Entitic mass] 29.9 pg Normal 27.0-32.0 [facility] Comment on above: Performed By: #### L 501.2450, L503.6005, L500.4050, L300.8000, L100.0100 #### [facility] [address] [place], [address] MCHC (RBC) [Mass/Vol] 32.8 g/dL Normal 32-36 [facility] Comment on above: Performed By: #### L 501.2450, L503.6005, L500.4050, L300.8000, L100.0100 #### [facility] [address] [place], [address] MCV (RBC) [Entitic vol] 91.2 fL Normal 81-99 [facility] Comment on above: Performed By: #### L 501.2450, L503.6005, L500.4050, L300.8000, L100.0100 #### [facility] [address] [place], [address] Monocytes/100 WBC (Bld) 1.9 % Normal 0-10 [facility] Comment on above: Performed By: #### L 501.2450, L503.6005, L500.4050, L300.8000, L100.0100 #### [facility] [address] [place], [address] Neutrophils/100 WBC (Bld) 77.0 % High 47-70 [facility] Comment on above: Performed By: #### L 501.2450, L503.6005, L500.4050, L300.8000, L100.0100 #### [facility] [address] [place], [address] Nucleated RBC (Bld) [#/Vol] 0 10*3/uL Normal 0-5 [facility] Comment on above: Performed By: #### L 501.2450, L503.6005, L500.4050, L300.8000, L100.0100 #### [facility] [address] [place], [address] Platelet mean volume (Bld) [Entitic vol] 9.7 fL Normal 6.2-12.0 [facility] Comment on above: Performed By: #### L 501.2450, L503.6005, L500.4050, L300.8000, L100.0100 #### [facility] [address] [place], [address] Platelets (Bld) [#/Vol] 263 10*3/uL Normal 150-450 [facility] Comment on above: Performed By: #### L 501.2450, L503.6005, L500.4050, L300.8000, L100.0100 #### [facility] [address] [place], [address] RBC (Bld) [#/Vol] 4.55 10*6/uL Normal 4.2-5.4 [facility] Comment on above: Performed By: #### L 501.2450, L503.6005, L500.4050, L300.8000, L100.0100 #### [facility] [address] [place], [address] RDW SD 44.6 fl High 35.1-43.9 [facility] Comment on above: Performed By: #### L 501.2450, L503.6005, L500.4050, L300.8000, L100.0100 #### [facility] [address] [place], [address] WBC (Bld) [#/Vol] 9.4 10*3/uL Normal 4.4-11.0 [facility] [place] Comment on above: Performed By: #### L 501.2450, L503.6005, L500.4050, L300.8000, L100.0100 #### [facility] [address] [place], [address] Carbon dioxide, total [Moles /volume] in Central venous bloodOrdered By: Wilfred Bryan on 02-15-2025 CO2 [Moles/Vol] 26.3 mmol/L 21.0-32.0 [facility] Chest 1 View (Portable)on Chest 1 View (Portable) [facility] Imaging Services [address] [place], [place] [address] Chest 1 View (Portable) MR#: [id number] Acct: [id number] Name: ASHLEY GÓMEZ Rep #: [id number] : 1955 F 69 From: Dejuan Patel DO PCP: Dr. Danish Davila DO Status: REG ER Study: Chest 1 View (Portable) Date of Exam: 02/15/25 Exam# [id number] Ordering Dr: Wilfred Bryan MD PROCEDURE: CHEST 1 VIEW (PORTABLE) 02/15/2025 REASON FOR EXAM: SHORTNESS OF BREATH TECHNIQUE: Frontal view of the chest. FINDINGS: Hardware: None Heart: Normal size Lungs: Clear Bones: No aggressive Other: RAD/Chest 1 View (Portable) IMPRESSION: No acute process Reading Location: [facility] CC: Dr. Wilfred Bryan MD; Dr. Danish Davila DO [place] Nurse: Signed Normal [facility] Chloride assayOrdered By: Lloyd Bryan on 02-15-2025 Chloride [Moles/Vol] 101 mmol/L 98-108 [facility] Emergency Department Summary on 02-15-2025 Emergency Department Summary [facility] Medical Records Department [address] [place] [address] Emergency Department Summary 02/15/25 MR#: [id number] Acct: [id number] Name: ASHLEY GÓMEZ Rep #: [id number] : 1955 69 From: Wilfred Bryan MD [...] day. Additionally, sometimes she smokes as well. [facility] Medical History Wears dentures Wears glasses [...] none current occupational status: employed current occupation: [employer] Smoking Status: Current every day smoker tobacco [...] support pneumoth (more content not included)... Normal [facility] Eosinophil percentageOrdered By: Wilfred Bryan on 02-15-2025 Eosinophils/100 WBC (Bld) 0.7 % 0-5 [facility] Erythrocyte distribution wid th ratioOrdered By: Wilfred Bryan on 02-15-2025 Erythrocyte distribution width (RBC) [Ratio] 13.2 % 11.6-14.6 [facility] Erythrocyte distribution wid th standard deviationOrdered By: Wilfred Bryan on 02-15-2025 Erythrocyte distribution width (RBC) [Ratio] 44.6 fl High 35.1-43.9 [facility] Glomerular filtration rate ( GFR) estimation/1.73 sq m using serum, plasma, or whole bOrdered By: Wilfred Bryan on 02-15-2025 GFR/1.73 sq M.predicted among non-blacks MDRD (S/P/Bld) [Vol rate/Area] 86 mL/min/{1.73_m2} >60 [facility] Comment on above: mL/min/1.73m2 CKD-EP I Creatinine Equation (2020) H AND P Exam - [place] 02-15-2025 H&P Exam - Hospitalist [facility] Medical Records Department [address] [place] [address] H P Exam - Hospitalist 02/15/25 1459 MR#: [id number] Acct: [id number] Name: ASHLEY GÓMEZ Rep #: [id number] : 1955 69 From: Bunny Avilez DO PCP: Dr. Danish Davila DO Status:ADM IN Location: [facility] [id number] HPI - General General Date of Admission: 02/15/25 Date of Service: 02/15/25 Chief Complaint: Shortness of breath HPI Narrative ASHLEY GÓMEZ, is a 69 F who presents to the emergency room at [facility] with complaints of shortness of breath over [...] acute infiltrates patient will be admitted to [place] [address] for exacerbation of COPD with hypoxia, she [...] none current occupational status: employed current occupation: [employer] Smoking Status: Current every day smoker tobacco [...] Vital Signs (more content not included)... Normal [facility] Hematocrit Auto (Bld) [Volum e fraction]Ordered By: Wilfred Bryan on 02-15-2025 Hematocrit (Bld) [Volume fraction] 41.5 % 37-47 [facility] Hemoglobin measurementOrdere d By: Wilfred Bryan on 02-15-2025 Hemoglobin (Bld) [Mass/Vol] 13.6 g/dL 12.0-15.0 [facility] Immature granulocytes/100 WB C Auto (Bld)Ordered By: Wilfred Bryan on 02-15-2025 Immature granulocytes/100 WBC (Bld) 0.200 % 0.0-0.9 [facility] Comment on above: IG% - Immature Granu locytes (promyelocytes, myelocytes and metamyelocytes) > 1% indicates that a LEFT SHIFT is Present. MCV (mean corpuscular volume ) determinationOrdered By: Wilfred Bryan on 02-15-2025 MCV (RBC) [Entitic vol] 91.2 fL 81-99 [facility] Mean corpuscular hemoglobin (MCH) determinationOrdered By: Wilfred Bryan on 02-15-2025 MCH (RBC) [Entitic mass] 29.9 pg 27.0-32.0 [facility] Mean corpuscular hemoglobin concentration (MCHC) determinationOrdered By: Wilfred Bryan on 02-15-2025 MCHC (RBC) [Mass/Vol] 32.8 g/dL 32-36 [facility] Mean platelet volume determi nationOrdered By: Wilfred Bryan on 02-15-2025 Platelet mean volume (Bld) [Entitic vol] 9.7 fL 6.2-12.0 [facility] Monocyte percentageOrdered B y: Wilfred Bryan on 02-15-2025 Monocytes/100 WBC (Bld) 1.9 % 0-10 [facility] Neutrophil percentageOrdered By: Wilfred Bryan on 02-15-2025 Neutrophils/100 WBC (Bld) 77.0 % High 47-70 [facility] Nucleated red blood cell per centageOrdered By: Wilfred Bryan on 02-15-2025 Nucleated RBC/100 WBC (Bld) [Ratio] 0 % 0-5 [facility] Platelet countOrdered By: Lloyd Bryan on 02-15-2025 Platelets (Bld) [#/Vol] 263 10*3/uL 150-450 [facility] Potassium measurement (mass/ volume)Ordered By: Wilfred Bryan on 02-15-2025 Potassium (Unsp spec) [Mass/Vol] 3.2 mmol/L Low 3.3-5.1 [facility] RBC Auto (Bld) [#/Vol]Ordere d By: Wilfred Bryan on 02-15-2025 RBC (Bld) [#/Vol] 4.55 10*6/uL 4.2-5.4 [facility] Serum creatinine measurement (mass/volume)Ordered By: Wilfred Bryan on 02-15-2025 Creatinine [Mass/Vol] 0.75 mg/dL 0.70-1.20 [facility] Serum glucose measurement (m ass/volume)Ordered By: Wilfred Bryan on 02-15-2025 Glucose [Mass/Vol] 136 mg/dL High 70-99 [facility] Serum or plasma calcium janneth urement (mass/volume)Ordered By: Wilfred Bryan on 02-15-2025 Calcium [Mass/Vol] 9.8 mg/dL 7.6-11.0 [facility] Serum or plasma urea nitroge n measurement (mass/volume)Ordered By: Wilfred Bryan on 02-15-2025 Urea nitrogen [Mass/Vol] 17 mg/dL 4-19 [facility] Sodium levelOrdered By: Wilfred Bryan on 02-15-2025 Sodium [Moles/Vol] 140 mmol/L 133-145 [facility] White blood cell (WBC) count Ordered By: Wilfred Bryan on 02-15-2025 WBC (Bld) [#/Vol] 9.4 10*3/uL 4.4-11.0 [facility] 36on 02-11-2025 36 Patient advised and voiced understanding. [facility] 29on 02-10-2025 29 Addended by: JUJU PATTON on: 02/10/2025 03:52 PM Modules accepted: Orders [facility] 36on 02-10-2025 36 Called patient to relay provider message left voicemail to call office back. [email or web address] message sent to patient. Please relay message [...] 5 days due to her emphysema Normal [facility] 36 Recent Visits Date Type Provider Dept 11/12/24 Office Visit Siomara Estrada PA-C [facility] 02/22/24 Office Visit Gasper Nelson DO [facility] Showing recent visits within past 365 [...] Dept 11/12/24 Office Visit Siomara Estrada PA-C [facility] 02/22/24 Office Visit Gasper Nelson DO [facility] Showing recent visits within past 365 [...] [facility] 36 S: Patient spoke with [facility] nurse regarding chest congestion and increased [...] refill on her albuterol inhaler. (Sent via [employer] request). Allergies and pharmacy verified. R: Offered [...] or worse than normal Protocols used: Breathing Teejkwbhco-NYBRY-LY Normal [facility] 36on 12-13-2024 36 Recent Visits Date Type Provider Dept 11/12/24 Office Visit Siomara Estrada PA-C [facility] 02/22/24 Office Visit Gasper Nelson DO [facility] Showing recent visits within past 365 [...] Recommendations: A preventive eye exam by an flight control specialist is recommended every 1-2 years to screen for glaucoma, cataracts, macular degeneration, and other eye disorders. A preventive dental visit is recommended every 6 months. Try to get at least 150 minutes of exercise per week or 10,000 steps per day on a pedometer. You need 1200-1500mg of calcium and 0502-5776 international units of vitamin D per day. [...] when riding a bicycle or a motorcycle [facility] Office Visiton 11-12-2024 Follow-up visit [id number] Ashley Gómez 1955 F Date Provider Department Center 11/12/2024 SIOMARA DIAZ [facility] Family History Problem Relation Age [...] Brother Alive Brother Alive Level of Service:G0439 ME PPPS, SUBSEQ VISIT Reason for Visit and Comments: Medicare Annual Wellness Visit Subsequent [677] Normal [facility] Progress Noteon 11-12-2024 Progress Note - Chronic stable was taking simvastatin 80 mg daily but felt that that was too much and she was concerned about problems with her liver so she has been cutting in half and taking 40 mg daily. Will recheck her levels today but I believe this is reasonable enough as her levels have been adequately controlled Normal [facility] Progress Note - Chronic stable she will continue on esomeprazole 40 mg daily. Normal [facility] Progress Note - Chronic stable patient was recently treated for flareup with amoxicillin and prednisone she can take the prednisone she is requesting a lower dose Medrol Dosepak and a second round of antibiotics that she started in some generalized wheezing and congestion strongly encouraged smoking cessation. Normal [facility] Progress Note [facility] - [address] [facility] [address] Dept: [phone] Dept Chief Complaint: Ashley Gómez is an [...] pain. Ga (more content not included)... Normal [facility] 36on 10-31-2024 36 S: Patient spoke with [facility] nurse regarding chest congestion, B: Onset [...] not coughing Protocols used: Cough - Acute Zpo-Durmiubhzq-YZWN T-AH Normal [facility] Progress Noteon 10-31-2024 Progress Note [facility] [address] [facility] [address] Dept: [phone] Dept Loc: [phone] Patient was identified and seen today via [...] stated that they are currently in the [facility]. If the patient is a minor, [...] DO 10/31/2024 12:[address] [facility] 10-01-2024 36 Received signed receipt of certified letter sent to patient. Scanned to media in chart. [facility] 09-30-2024 36 Recent Visits Date Type Provider Dept 02/22/24 Office Visit Gasper Nelson DO [facility] Showing recent visits within past 365 days and meeting all other requirements Future Appointments Date Type Provider Dept 11/12/24 Appointment Gasper Nelson DO [facility] Showing future appointments within next 90 [...] Dept 02/22/24 Office Visit Gasper Nelson DO [facility] Showing recent visits within past 365 days and meeting all other requirements Future Appointments Date Type Provider Dept 09/30/24 Appointment Gasper Nelson DO [facility] Showing future appointments within next 90 [...] to the patient from encounter: Yes Normal [facility] 36 Placed call to patient. Unable to reach them by phone to discuss lab results. Left detailed message to return call to discuss results. Please release information to patient Normal [facility] 36 ----- Message from Juju Rodriguez sent at 08/05/2024 7:36 AM EST ----- ----- Message ----- From: Gasper Nelson DO Sent: 08/04/2024 5:20 PM EST To: [facility] Clinical Dental Cream Maker Stable small pulmonary nodules and they now recommend recheck study in 1 year. As noted before she has moderate amount of emphysema. Normal [facility] CT LUNG SCREENING FOLLOW UP LOW [...] 2:02 PM EST F/U SCAN SMOKER Normal [facility] 36on 07-24-2024 36 Recent Visits Date Type Provider Dept 02/22/24 Office Visit Gasper Nelson DO [facility] 07/31/23 Office Visit Gasper Nelson DO [facility] Showing recent visits within past 365 days and meeting all other requirements Future Appointments Date Type Provider Dept 08/21/24 [facility] future appointments within next 90 days [...] CHOLHDLCRATI 4.2 01/13/2023 NONHDLCHOLES 174 (H) 01/13/2023 [place] [address]on 06-28-2024 36 Reason for call: Pari, I [...] to get her scheduled. Thank you Contact [place] [address] No auth needed. Faxed orders to [facility]-Scheduling for pt to be sched - [facility] will sched/advise pt. My chart mess sent to patient with info to sched. [address] 06-27-2024 36 Vincent Perez, It looks like the patient navigator has done all that she can do. So it looks like all avenues have been exhausted to try and reach this patient to schedule. [facility] 36 To April to follow up [place] [address] Mrs. Gómez called in after receiving certified letter. She would like to return to complete the recommended lung screening 3 month follow-up imaging previously ordered by Dr. Nelson. Will send message to provider office to place new referral for imaging and assist patient with scheduling. She prefers [place] for imaging location and is available on Monday the if there are any appointments available. [address] 06-11-2024 36 RX loaded Next ov 08/21/24 [place] [address] Medication name: traZODone (Desyrel) 150 MG tablet [...] to picking up the medication: Yes Normal [facility] Colonoscopy Reporton 024 Colonoscopy Report [facility] Medical Records Department [address] [place] [address] Colonoscopy Report MR#: [id number] Acct: [id number] Name: ASHLEY GÓMEZ Rep #: [id number] : 1955 68 From: Slim Weiss DO PCP: Dr. Danish Davila DO Status:REG [facility] Patient Name: Ashley Gómez Procedure Date: 04/29/2024 [...] criteria for high risk CPT copyright 2021 [employer]. All rights reserved. The codes documented in this report are preliminary and upon manufacturing engineer automotive review may be revised to meet current compliance requirements. Slim Weiss DO 04/29/2024 9:34:45 AM This report has been signed electronically. Number of Addenda: 0 Note Initiated On: 04/29/2024 8:54 AM 04/29/24 0934 Date Slim Weiss DO Cosigner Signature: Date (if indicated) CC: Dr. Danish Davila DO; Slim Weiss DO Date Dictated: 04/29/24 0854 Date Transcribed: [place] Nurse: WES Signed [facility] MR/POSTOP.ANEon 04-29-2024 MR/POSTOP.[facility] Medical Records Department [address] [place] [address] Anesthesia Postop Eval I 04/29/24 1403 MR#: [id number] Acct: [id number] Name: ASHLEY GÓMEZ Rep #: [id number] : 1955 68 From: Supriya Valdovinos CRNA PCP: Dr. Danish Davila, DO Status:[facility] Y Race: C Location: EN Anesthesia: Postop [...] Valdovinos CRNA Cosigner Signature: Date CC: Signed [facility] MR/[id number] 04-29-2024 MR/POSTOPAN2 [facility] [facility] Medical [facility] Department [address] [place] [address] Anesthesia Postop Eval II 04/29/24 1341 MR#: [id number] Acct: [id number] Name: ASHLEY GÓMEZ Rep #: [id number] : 1955 68 From: David Valadez MD PCP: Dr. Danish Davila, DO Status:[facility] Y Race: C Location: EN Anesthesia Postop [...] Date David Purdyigncarolyn Signature: Date CC: Signed [facility] 04-17-2024 36 Recent Visits Date Type Provider Dept 02/22/24 Office Visit Gasper Nelson DO [facility] 07/31/23 Office Visit Gasper Nelson DO [facility] Showing recent visits within past 365 [...] 1st Attempt: 03/30/24 2nd Attempt: 04/11/24 Thanks, [facility] Central Scheduling Normal [facility] Lipid 1996 panelon 4 Cholesterol [Mass/Vol] 162 mg/dL NINF - 200 mg/dL [facility] Cholesterol in HDL [Mass/Vol] 38 mg/dL Low 40 - 60 mg/dL [facility] Cholesterol in LDL [Mass/Vol] 106 mg/dL High 0 - <100 [facility] Cholesterol.total/Choles terol in HDL [Mass ratio] 4 {ratio} [facility] Comment on above: Ref Range: < 3 Low Risk for CHD 3-6 Mod Risk for CHD > 6 High Risk for CHD Interpretation and review of laboratory results Abnormal [facility] Triglyceride [Mass/Vol] 91 mg/dL NINF - 150 mg/dL [facility] Absolute lymphocyte counton 01-31-2022 Lymphocytes Auto (Unsp spec) [#/Vol] 1.28 10*3/uL 0.83-4.51 [facility] Work Phone: Basophil percentageon 2021 Basophils/100 WBC (Bld) 0.3 % 0-1 [facility] Work Phone: Chloride [Moles/Vol] 100 mmol/L 98-107 [facility] Work [facility]: Eosinophils/100 WBC (Bld) 0.0 % 0-5 [facility] Work Phone: Glucose [Mass/Vol] 153 mg/dL 74-106 [facility] Work Phone: Comment on above: Fasting Glucose resu lt greater than or equal to 126 mg/dL suggests DIABETES MELLITUS per A.D.A. criteria. Neutrophils (Bld) [#/Vol] 17.2 10*3/uL 2.0-7.7 [facility] Work Phone: Neutrophils/100 WBC (Bld) 88.5 % 47-70 [facility] Work Phone: Potassium [Moles/Vol] 3.2 mmol/L 3.5-5.1 [facility] Work Phone: Comment on above: Slight Hemolysis, Re sult may be falsely increased. Sodium [Moles/Vol] 135 mmol/L 136-145 [facility] Work Phone: WBC (Bld) [#/Vol] 19.4 10*3/uL 4.4-11.[facility]: Blood erythrocytes count (nu mber/volume)on 01-31-2022 RBC (Bld) [#/Vol] 4.26 10*6/uL 4.2-5.4 [facility] Work Phone: Blood hemoglobin measurement (mass/volume)on 01-31-2022 Hemoglobin (Bld) [Mass/Vol] 12.5 g/dL 12.0-15.0 [facility] Work Phone: Blood lymphocytes/100 leukoc yteson 01-31-2022 Lymphocytes/100 WBC (Bld) 6.6 % 19-41 [facility] Work Phone: Blood monocytes/100 leukocyt eson 01-31-2022 Monocytes/100 WBC (Bld) 3.5 % 0-10 [facility] Work Phone: Blood platelet mean volumeon 01-31-2022 Platelet mean volume (Bld) [Entitic vol] 10.4 fL 6.2-12.0 [facility] Work Phone: Determination of erythrocyte mean corpuscular volume (MCV)on 01-31-2022 MCV (RBC) [Entitic vol] 88.0 fL 81-99 [facility] Work Phone: Hematocrit Auto (Bld) [Volum e fraction]on 01-31-2022 Hematocrit (Bld) [Volume fraction] 37.5 % 37-47 [facility] Work Phone: [phone] Laboratory - Chemistry and C hemistry - challengeon 01-31-2022 CO2 [Moles/Vol] 27.0 mmol/L 21.0-32.0 [facility] Work Phone: [phone] Urea nitrogen/Creatinine [Mass ratio] 22.0 mg/mg 10-20 [facility] Work Phone: [phone] Laboratory - Hematology and Cell countson 01-31-2022 Erythrocyte distribution width (RBC) [Entitic vol] 45.4 fL 35.1-43.9 [facility] Work Phone: [phone] Erythrocyte distribution width (RBC) [Ratio] 14.1 % 11.6-14.6 [facility] Work Phone: [phone] Immature granulocytes/100 WBC (Bld) 1.100 % 0.0-0.9 [facility] Work Phone: [phone] Comment on above: IG% - Immature Granu locytes (promyelocytes, myelocytes and metamyelocytes) > 1% indicates that a LEFT SHIFT is Present. MCH (RBC) [Entitic mass] 29.3 pg 27.0-32.0 [facility] Work Phone: [phone] Nucleated RBC/100 WBC (Bld) [Ratio] 0 % 0-5 [facility] Work Phone: [phone] MCHC Auto (RBC) [Mass/Vol]on 01-31-2022 MCHC (RBC) [Mass/Vol] 33.3 g/dL 32-36 [facility] Work Phone: [phone] Panel Informationon 01-31 Estimated Creatinine Clearance Calc 49.62 ml/min [facility] Work Phone: [phone] Estimated GFR (MDRD) Amer 79 mL/min >60 [facility] Work Phone: [phone] Comment on above: GFR Calc Estimated GFR (MDRD) Non-Af Amer 65 mL/min >60 [facility] Work Phone: [phone] Comment on above: Non- GFR Calc SARS-CoV-2 & FLU Antigen (Rapid) [facility] Work Phone: [phone] Platelets bldon 01-31-2022 Platelets (Bld) [#/Vol] 188 10*3/uL 150-450 [facility] Work Phone: Serum or plasma calcium janneth urement (mass/volume)on 01-31-2022 Calcium [Mass/Vol] 9.4 mg/dL 8.5-10.1 [facility] Work Phone: Serum or plasma creatinine m easurement (mass/volume)on 01-31-2022 Creatinine [Mass/Vol] 0.91 mg/dL 0.55-1.02 [facility] Work Phone: Comment on above: The validity of the calculated GFR & GFRAA in patients over 70 years has not been determined. Clinical correlation is essential. Serum or plasma urea nitroge n measurement (mass/volume)on 01-31-2022 Urea nitrogen [Mass/Vol] 20 mg/dL 7-18 [facility] Work Phone: Thin prep Papanicolaou smear with manual screeningon 01-31-2022 Thin prep Papanicolaou smear with manual screening 8 5-15 [facility] Work Phone: DEXA Bone Density Axial Skel etonon 01-11-2022 Patient Name: ASHLEY GÓMEZ Bone Density ACCESSION EXAM DATE/TIME PROCEDURE ORDERING PROVIDER [id number] 01/11/2022 15:04 EDT OT Bone Density DEXA DO DAVILA PAUL E. Axial Skeleton CPT code 39952 Reason For Exam (OT Bone Density DEXA Axial Skeleton) . Report DXA BONE DENSITOMETRY: CLINICAL INDICATION: Asymptomatic post-menopausal status COMPARISON: None TECHNIQUE: Quantitative bone mineral densitometry of the hip and lumbar spine was performed with a dual energy x-ray observed absorptiometry device - [employer] W. Regions of interest were obtained through [...] recommendations for prevention of bone loss include: 8560-8247 mg calcium intake per day for adults [...] and Follow-up. [employer] Evidence-Based Summaries. [facility] [employer]. 2017 Bone Density Report Report Dictated on --- Final --- Dictating Physician: MD SANTIAGO LAUREN B Signed Date and Time: 01/11/2022 4:03 pm Signed by: MD SANTIAGO LAUREN B Transcribed Date and Time: 01/11/2022 4:05 REBEKAH VERMA RAD Bari Santiago MD - 01/11/2022 Patient Name: ASHLEY GÓMEZ Bone Density ACCESSION EXAM DATE/TIME PROCEDURE ORDERING PROVIDER [id number] 01/11/2022 15:04 EDT OT Bone Density DEXA DO DAVILA PAUL E. Axial Skeleton CPT code 69644 Reason For Exam (OT Bone Density DEXA Axial Skeleton) . Report DXA BONE DENSITOMETRY: CLINICAL INDICATION: Asymptomatic post-menopausal status COMPARISON: None TECHNIQUE: Quantitative bone mineral densitometry of the hip and lumbar spine was performed with a dual energy x-ray observed absorptiometry device - [employer] W. Regions of interest were obtained through [...] recommendations for prevention of bone loss include: 1764-9146 mg calcium intake per day for adults [...] and Follow-up. [employer] Evidence-Based Summaries. [facility] [employer] for Education and Research. 2017 Bone Density [...] Mammography ACCESSION EXAM DATE/TIME PROCEDURE ORDERING PROVIDER [id number] 01/11/2022 15:01 EDT MG Breast Tomosynthesis DO DAVILA PAUL E. BI Scr CPT code 09151 27779 Reason For Exam (MG Breast Tomosynthesis BI [...] 20, 2013, bilateral screening mammogram performed at [facility]. TISSUE DENSITY: BIRADS B - There are [...] images: BB's = Nipples; skin lesions Open little traverse = Palpable Line = Scar 2D digital [...] am Signed by: MD PAMELA, BARI [facility] [employer]Products [facility] OT Bone Density DEXA Axial S [email or web address] 01-11-2022 OT Bone Density DEXA Axial Skeleton Patient Name: ASHLEY GÓMEZ Bone Density ACCESSION EXAM DATE/TIME PROCEDURE ORDERING PROVIDER [id number] 01/11/2022 15:04 EDT OT Bone Density DEXA DO DAVILA PAUL E. Axial Skeleton CPT code 59462 Reason For Exam (OT Bone Density DEXA [...] recommendations for prevention of bone loss include: 2519-0368 mg calcium intake per day for adults [...] and Follow-up. [employer] Evidence-Based Summaries. [facility] [employer] for Education and Research. 2017 Bone Density Report Report Dictated on Final Dictating Physician: MD SANTIAGO LAUREN B Signed Date and Time: 01/11/2022 4:03 pm Signed by: MD SANTIAGO LAUREN B Transcribed Date and Time: 01/11/2022 4:05 [facility] 10-23-2020 [facility] Telephone ([facility]ST[facility]) ---- ASHLEY GÓMEZ ([id number]) 1955 F Date Time Provider Department 10/23/20 [...] Fully Assessed Reason for Visit: Schedule Evaluation [8353] Prescriptions as of 10/23/2020 Sig: HYDROCODONE 5 [...] by GERMAN RAMIREZ MD on 10/23/20 Normal [facility] Panel Information SARS-CoV-2 & FLU Antigen (Rapid) [facility] Work Phone: Vital Signs Date Time Vital Sign Value Performing Clinician Facility 03-06-2025 10:00-0400 Body temperature 97.8 [degF] Dr. Danish Davila DO Work Phone: [facility] 03-06-2025 10:00-0400 Diastolic blood pressure 78 mm[Hg] Dr. Danish Davila DO Work Phone: [facility] 03-06-2025 10:00-0400 Heart rate 86 /min Dr. Danish Davila DO Work Phone: [facility] 03-06-2025 10:00-0400 Respiratory rate 15 /min Dr. Danish Davila DO Work Phone: [facility] 03-06-2025 10:00-0400 SaO2% (BldA) [Mass fraction] 90 % Dr. Danish Davila DO Work Phone: [facility] 03-06-2025 10:00-0400 Systolic blood pressure 178 mm[Hg] Dr. Danish Davila DO Work Phone: [facility] 03-06-2025 05:54-0400 Body height 162.[address] Danish Davila DO Work Phone: [facility] 03-06-2025 05:54-0400 Body mass index (BMI) [Ratio] 19.3 kg/m2 Dr. Danish Davila DO Work Phone: [facility] 03-06-2025 05:54-0400 Body weight 51.[address] Danish Davila DO Work Phone: [facility] 03-05-2025 10:51-0400 Body height 162.[address] Danish Davila DO Work Phone: [facility] 03-05-2025 10:51-0400 Body weight 46.[address] Danish Davila DO Work Phone: [facility] 03-05-2025 10:22-0400 Body temperature 98 [degF] Dr. Danish Davila DO Work Phone: [facility] 03-05-2025 10:22-0400 Diastolic blood pressure 71 mm[Hg] Dr. Danish Davila DO Work Phone: [facility] 03-05-2025 10:22-0400 Heart rate 92 /min Dr. Danish Davila DO Work Phone: [facility] 03-05-2025 10:22-0400 Respiratory rate 16 /min Dr. Danish Davila DO Work Phone: [facility] 03-05-2025 10:22-0400 SaO2% (BldA) [Mass fraction] 97 % Dr. Danish Davila DO Work Phone: [facility] 03-05-2025 10:22-0400 Systolic blood pressure 111 mm[Hg] Dr. Danish Davila DO Work Phone: [facility] 03-05-2025 08:55-0400 Body temperature 98 [degF] Dr. Danish Davila DO Work Phone: [facility] 03-05-2025 08:55-0400 Diastolic blood pressure 71 mm[Hg] Dr. Danish Davila DO Work Phone: [facility] 03-05-2025 08:55-0400 Heart rate 92 /min Dr. Danish Davila DO Work Phone: [facility] 03-05-2025 08:55-0400 Respiratory rate 16 /min Dr. Danish Davila DO Work Phone: [facility] 03-05-2025 08:55-0400 SaO2% (BldA) [Mass fraction] 97 % Dr. Danish Davila DO Work Phone: [facility] 03-05-2025 08:55-0400 Systolic blood pressure 111 mm[Hg] Dr. Danish Davila DO Work Phone: [facility] 03-05-2025 06:55-0400 Inhaled oxygen flow rate 2 L/min Dr. Danish Davila DO Work Phone: [facility] 03-05-2025 03:26-0400 Body mass index (BMI) [Ratio] 17.4 kg/m2 Dr. Danish Davila DO Work Phone: [facility] 03-03-2025 03:34-0400 Body temperature 98.1 [degF] Dr. Danish Davila DO Work Phone: [facility] 03-03-2025 03:34-0400 Diastolic blood pressure 82 mm[Hg] Dr. Danish Davila DO Work Phone: [facility] 03-03-2025 03:34-0400 Heart rate 90 /min Dr. Danish Davila DO Work Phone: [facility] 03-03-2025 03:34-0400 Inhaled oxygen flow rate 2 L/min Dr. Danish Davila DO Work Phone: [facility] 03-03-2025 03:34-0400 Respiratory rate 18 /min Dr. Danish Davila DO Work Phone: [facility] 03-03-2025 03:34-0400 SaO2% (BldA) [Mass fraction] 92 % Dr. Danish Davila DO Work Phone: [facility] 03-03-2025 03:34-0400 Systolic blood pressure 156 mm[Hg] Dr. Danish Davila DO Work Phone: [facility] 03-02-2025 23:34-0400 Body height 162.[address] Danish Davila DO Work Phone: [facility] 03-02-2025 23:34-0400 Body mass index (BMI) [Ratio] 18.9 kg/m2 Dr. Danish Davila DO Work Phone: [facility] 03-02-2025 23:34-0400 Body weight [address] Danish Davila DO Work Phone: [phone] [place] [address] 02-17-2025 08:14-0400 Body temperature 98.2 [degF] Dr. Danish Davila DO Work Phone: [phone] [place] [address] 02-17-2025 08:14-0400 Diastolic blood pressure 54 mm[Hg] Dr. Danish Davila DO Work Phone: [facility] 02-17-2025 08:14-0400 Heart rate 76 /min Dr. Danish Davila DO Work Phone: [facility] 02-17-2025 08:14-0400 Respiratory rate 18 /min Dr. Danish Davila DO Work Phone: [facility] 02-17-2025 08:14-0400 SaO2% (BldA) [Mass fraction] 92 % Dr. Danish Davila DO Work Phone: [facility] 02-17-2025 08:14-0400 Systolic blood pressure 131 mm[Hg] Dr. Danish Davlia DO Work Phone: [facility] 02-17-2025 04:32-0400 Inhaled oxygen flow rate 2 L/min Dr. Danish Davila DO Work Phone: [facility] 02-16-2025 15:06-0400 Body height 162.[address] Danish Davila DO Work Phone: [facility] 02-16-2025 15:06-0400 Body weight 52.[address] Danish Davila DO Work Phone: [facility] 02-15-2025 11:58-0400 Body mass index (BMI) [Ratio] 19.7 kg/m2 Dr. Danish Davila DO Work Phone: [facility] 02-15-2025 10:47-0400 Body temperature 98 [degF] Dr. Danish Davila DO Work Phone: [facility] 02-15-2025 10:47-0400 Diastolic blood pressure 68 mm[Hg] Dr. Danish Davila DO Work Phone: [facility] 02-15-2025 10:47-0400 Heart rate 87 /min Dr. Danish Davila DO Work Phone: [facility] 02-15-2025 10:47-0400 Respiratory rate 19 /min Dr. Danish Davila DO Work Phone: [facility] 02-15-2025 10:47-0400 SaO2% (BldA) [Mass fraction] 91 % Dr. Danish Davila DO Work Phone: [facility] 02-15-2025 10:47-0400 Systolic blood pressure 132 mm[Hg] Dr. Danish Davila DO Work Phone: [facility] 02-15-2025 10:30-0400 Inhaled oxygen flow rate 2 L/min Dr. Danish Davila DO Work Phone: [facility] 02-15-2025 08:30-0400 Body height 162.[address] Danish Davila DO Work Phone: [facility] 02-15-2025 08:30-0400 Body mass index (BMI) [Ratio] 19.5 kg/m2 Dr. Danish Davila DO Work Phone: [facility] 02-15-2025 08:30-0400 Body weight 51.[address] Danish Davila DO Work Phone: [facility] 11-12-2024 09:09-0400 Diastolic blood pressure 80 mm[Hg] Siomara Estrada PA-C Work Phone: [facility] 11-12-2024 09:09-0400 Systolic blood pressure 132 mm[Hg] Siomara Falcono PA-C Work Phone: [facility] 11-12-2024 08:38-0400 Body height 162.6 cm Siomara Falcono PA-C Work Phone: [facility] 11-12-2024 08:38-0400 Body mass index (BMI) [Ratio] 20.6 kg/m2 Siomara Estrada PA-C Work Phone: [facility] [employer] 11-12-2024 08:38-0400 Body temperature 97.2 [degF] Siomara Estrada PA-C Work Phone: [facility] [employer] 11-12-2024 08:38-0400 Body weight 54.43 kg Siomara Estrada PA-C Work Phone: [facility] [employer] 11-12-2024 08:38-0400 Heart rate 83 /min Siomara Estrada PA-C Work Phone: [facility] [employer] 11-12-2024 08:38-0400 SaO2% (BldA) [Mass fraction] 90 % Siomara Estrada PA-C Work Phone: [facility] [employer] 02-22-2024 12:58-0400 Body height 162.6 cm Gasper Nelson DO Work Phone: [facility] [employer] 02-22-2024 12:58-0400 Body mass index (BMI) [Ratio] 21.11 kg/m2 Gasper Nelson DO Work Phone: [facility] [employer] 02-22-2024 12:58-0400 Body temperature 97 [degF] Gasper Nelson DO Work Phone: [facility] [employer] 02-22-2024 12:58-0400 Body weight 55.79 kg Gasper Nelson DO Work Phone: [facility] [employer] 02-22-2024 12:58-0400 Diastolic blood pressure 74 mm[Hg] Gasper Nelson DO Work Phone: [facility] [employer] 02-22-2024 12:58-0400 Heart rate 71 /min Gasper Nelson DO Work Phone: [facility] [employer] 02-22-2024 12:58-0400 SaO2% (BldA) [Mass fraction] 97 % Gasper Nelson DO Work Phone: [facility] [employer] 02-22-2024 12:58-0400 Systolic blood pressure 115 mm[Hg] Gasper Nelson DO Work Phone: [facility] [employer] 07-31-2023 15:37-0500 Body height 162.6 cm Gasper Nelson DO Work Phone: [facility] [employer] 07-31-2023 15:37-0500 Body mass index (BMI) [Ratio] 20.53 kg/m2 Gasper Nelson DO Work Phone: [facility] [employer] 07-31-2023 15:37-0500 Body temperature 97.81 [degF] Gasper Nelson DO Work Phone: [facility] [employer] 07-31-2023 15:37-0500 Body weight 54.25 kg Gasper Nelson DO Work Phone: [facility] [employer] 07-31-2023 15:37-0500 Diastolic blood pressure 78 mm[Hg] Gasper Nelson DO Work Phone: [facility] [employer] 07-31-2023 15:37-0500 Heart rate 80 /min Gasper Nelson DO Work Phone: [facility] [employer] 07-31-2023 15:37-0500 SaO2% (BldA) [Mass fraction] 94 % Gasper Nelson DO Work Phone: [facility] [employer] 07-31-2023 15:37-0500 Systolic blood pressure 138 mm[Hg] Gasper Nelson DO Work Phone: [facility] [employer] 01-13-2023 09:24-0400 Body height 162.6 cm Gasper Nelson DO Work Phone: [facility] 01-13-2023 09:24-0400 Body mass index (BMI) [Ratio] 19.74 kg/m2 Gasper Nelson DO Work Phone: [facility] [employer] 01-13-2023 09:24-0400 Body temperature 97.5 [degF] Gasper Nelson DO Work Phone: [facility] [employer] 01-13-2023 09:24-0400 Body weight 52.16 kg Gasper Nelson DO Work Phone: [facility] [employer] 01-13-2023 09:24-0400 Diastolic blood pressure 73 mm[Hg] Gasper Nelson DO Work Phone: [facility] [employer] 01-13-2023 09:24-0400 Heart rate 89 /min Gasper Nelson DO Work Phone: [facility] [employer] 01-13-2023 09:24-0400 SaO2% (BldA) [Mass fraction] 99 % Gasper Nelson DO Work Phone: [facility] [employer] 01-13-2023 09:24-0400 Systolic blood pressure 118 mm[Hg] Gasper Nelson DO Work Phone: [facility] [employer] 11-14-2022 11:49-0400 Body height 162.6 cm Siomara Estrada PA-C Work Phone: [facility] [employer] 11-14-2022 11:49-0400 Body mass index (BMI) [Ratio] 20.6 kg/m2 Siomara Estrada PA-C Work Phone: [facility] [employer] 11-14-2022 11:49-0400 Body temperature 98.01 [degF] Siomara Estrada PA-C Work Phone: [facility] [employer] 11-14-2022 11:49-0400 Body weight 54.43 kg Siomara Estrada PA-C Work Phone: [employer] 11-14-2022 11:49-0400 Diastolic blood pressure 80 mm[Hg] Siomara LOPES-C Work Phone: [facility] [employer] 11-14-2022 11:49-0400 Heart rate 82 /min Siomara CHAPAC Work Phone: [facility] [employer] 11-14-2022 11:49-0400 SaO2% (BldA) [Mass fraction] 95 % Siomara LOPES-C Work Phone: [facility] [employer] 11-14-2022 11:49-0400 Systolic blood pressure 138 mm[Hg] Siomara LOPES-C Work Phone: [facility] [employer] 10-03-2022 08:39-0500 Body height 162.6 cm Danish Monteso DO Work Phone: [facility] [employer] 10-03-2022 08:39-0500 Body mass index (BMI) [Ratio] 20.63 kg/m2 Danish Monteso DO Work Phone: [facility] [employer] 10-03-2022 08:39-0500 Body temperature 97.11 [degF] Danish Monteso DO Work Phone: [facility] [employer] 10-03-2022 08:39-0500 Body weight 54.52 kg Danihs Carmonacasso DO Work Phone: [facility] [employer] 10-03-2022 08:39-0500 Diastolic blood pressure 63 mm[Hg] Danish Monteso DO Work Phone: [facility] [employer] 10-03-2022 08:39-0500 Heart rate 74 /min Danish Davila DO Work Phone: [facility] 10-03-2022 08:39-0500 SaO2% (BldA) [Mass fraction] 93 % Danish Monteso DO Work Phone: [facility] 10-03-2022 08:39-0500 Systolic blood pressure 118 mm[Hg] Danish Davila DO Work Phone: [facility] 01-31-2022 09:50-0400 Body temperature 99.4 [degF] [facility] Work Phone: 01-31-2022 09:50-0400 Diastolic blood pressure 97 mm[Hg] [facility] Work Phone: 01-31-2022 09:50-0400 Heart rate 100 /min [facility] Work Phone: 01-31-2022 09:50-0400 Respiratory rate 18 /min [facility] Work Phone: 01-31-2022 09:50-0400 SaO2% (BldA) [Mass fraction] 96 % [facility] Work Phone: 01-31-2022 09:50-0400 Systolic blood pressure 116 mm[Hg] [facility] Work Phone: 01-31-2022 09:20-0400 Body height 160.02 cm [facility] Work Phone: 01-31-2022 09:20-0400 Body mass index (BMI) [Ratio] 21.2 kg/m2 [facility] Work Phone: 01-31-2022 09:20-0400 Body weight 54.43 kg [facility] Work Phone: Encounters Encounter Date Encounter Type Care Provider Facility Start: 03-06-2025 End: 03-06-2025 Emergency department patient visit Dr. Danish Davila DO Work Phone: -Emergency Department Work Phone: Start: 03-05-2025 Non-patient / Non-visit Dr. Kelvin holman MD -[facility] Work Phone: Start: 03-04-2025 Non-patient / Non-visit Dr. Kelvin holman MD -[facility] Work Phone: Start: 03-03-2025 Non-patient / Non-visit Slim Singh nd, DO -[facility] Start: 03-03-2025 ambulatory Elisabet Ponce Facility:[facility] Start: 03-03-2025 Non-patient / Non-visit Dr. Elisabet turner MD -[facility] Start: 03-03-2025 ambulatory Tonja Jo Facility :[facility] Start: 03-03-2025 End: 03-05-2025 Evaluation and management of inpatient Dr. Tonja Jo MD -Progressive Care Unit Work Phone: Start: 02-24-2025 End: 02-24-2025 Refill Gasper Nelson DO Work Phone: [facility] Start: 02-17-2025 Non-patient / Non-visit Dr. Malaika Avilez [facility] Work Phone: Start: 02-16-2025 Non-patient / Non-visit Dr. Malaika Avilez [facility] Work Phone: Start: 02-15-2025 Non-patient / Non-visit Dr. Malaika Avilez [facility] Work Phone: Start: 02-15-2025 ambulatory Danish Davila Facility: [facility] Start: 02-15-2025 End: 02-17-2025 Evaluation and management of inpatient Dr. Bunny Avilez DO -Medical Surgical 3 Work Phone: Start: 02-10-2025 End: 02-10-2025 Orders Only Gasper Nelson DO Work Phone: [facility] Comment on above: Chronic obstructive pulmonary disease with acute exacerbation (HCC) Release of Informati on Other insomnia Start: 02-09-2025 End: 02-10-2025 Refill Siomara Estrada PA-C Work Phone: [facility] Comment on above: Chronic obstructive pulmonary disease with acute exacerbation (HCC) Start: 12-13-2024 End: 12-13-2024 Refill Gasper Nelson DO Work Phone: [facility] Start: 11-20-2024 End: 12-02-2024 Refill Gasper Serrano Miguelarleen DO Work Phone: [facility] Comment on above: Other insomnia Start: 11-12-2024 End: 11-12-2024 Assay of hemosiderin, quant Siomara Estrada PA-C Work Phone: [facility] Work Phone: Start: 11-12-2024 End: 11-12-2024 Patient encounter procedure Siomara Estrada PA-C Work Phone: [facility] Comment on above: Routine general medi olga lidia examination at health care facility (Primary Dx); Encounter for screening mammogram for malignant neoplasm of breast; Hypercholesterolemia; Chronic obstructive pulmonary disease with acute exacerbation (HCC); Gastroesophageal reflux disease without esophagitis Start: 11-12-2024 End: 11-12-2024 ambulatory [facility] Start: 11-12-2024 End: 11-12-2024 Encounter for general adult medical examination without abnormal findings [facility] Start: 10-31-2024 End: 10-31-2024 Patient encounter [facility] Start: 10-31-2024 End: 10-31-2024 ambulatory [facility] Start: 10-31-2024 End: 10-31-2024 Office outpatient visit 15 minutes Gasper Nelson DO Work Phone: [facility] Comment on above: Chronic obstructive pulmonary disease with acute exacerbation (HCC) (Primary Dx); Influenza Start: 09-28-2024 End: 09-30-2024 Refill Gasper Maggie Argentina DO Work Phone: [facility] Start: 09-14-2024 End: 09-16-2024 Refill Gasper Serrano Argentina DO Work Phone: [facility] [place] Start: 07-29-2024 End: 07-29-2024 [facility] Start: 07-29-2024 End: 07-29-2024 Subsequent hospital visit by physician Gasper Maggie Nelson Work Phone: [facility] Comment on above: Abnormal CT scan of lung; Smoker Start: 07-24-2024 End: 07-24-2024 Refill Gasper Nelson DO Work Phone: [facility] Start: 06-28-2024 End: 07-01-2024 Telephone encounter Gasper Nelson DO Work Phone: [facility] Scheduling Start: 06-11-2024 End: 06-11-2024 Refill Gasper Nelson DO Work Phone: [facility] Start: 04-29-2024 End: 04-29-2024 ambulatory Slim Weiss Facility:[facility] Start: 04-23-2024 End: 06-20-2024 Telephone encounter [facility] Comment on above: Care Coordination (L aldair Screening Follow up reminder - certified letter sent ) Start: 04-17-2024 End: 04-17-2024 Refill Gasper Nelson DO Work Phone: [facility] Start: 04-11-2024 End: 04-11-2024 Telephone encounter Gasper Nelson DO Work Phone: [facility] Comment on above: Other (Scheduling at [facility]) Start: 03-20-2024 ambulatory [facility] Facility[facility] Start: 02-22-2024 End: 02-22-2024 Telephone encounter Gasper Nelson DO Work Phone: [facility] Comment on above: Referral (Dr Weiss) Start: 02-22-2024 End: 02-22-2024 Office outpatient visit 25 minutes Gasper Nelson Work Phone: [facility] Comment on above: Chronic obstructive pulmonary disease, unspecified COPD type (HCC) (Primary Dx); Abnormal CT scan of lung; Hypercholesterolemia; Colon cancer screening; Breast cancer screening by mammogram; Depression, unspecified depression type; Gastroesophageal reflux disease without esophagitis; Ex-smoker for less than 1 year Start: 02-05-2024 Telephone encounter Gasper byrnes DO Work Phone: [facility] Comment on above: Results Start: 01-02-2024 Refill Gasper vargas DO Work Phone: [facility] Start: 01-01-2024 Orders Only Gasper vargas DO Work Phone: [facility] Start: 12-24-2023 Orders Only Gasper vargas DO Work Phone: [facility] Start: 12-22-2023 Telephone encounter Gasper byrnes DO Work Phone: [facility] Comment on above: Appointment ([facility]) Start: 12-21-2023 Orders Only Gasper vargas DO Work Phone: [facility] Comment on above: COPD with acute exac erbation (HCC); Lower resp. tract infection Start: 12-18-2023 End: 12-18-2023 Subsequent hospital visit by physician Gasper Nelson DO Work Phone: [facility] Comment on above: Smoker; Moderate smoker (20 or less per day) Start: 12-17-2023 Refill Gasper vargas DO Work Phone: [facility] Start: 08-01-2023 Telephone encounter Gasper byrnes DO Work Phone: [facility] Comment on above: Orders (LDCT due in November 2023) Start: 07-31-2023 End: 07-31-2023 Office outpatient visit 15 minutes Gasper Nelson DO Work Phone: [facility] Comment on above: Chronic obstructive pulmonary disease, unspecified COPD type (HCC) (Primary Dx); Depression, unspecified depression type; Gastroesophageal reflux disease without esophagitis; Hypercholesterolemia Start: 03-14-2023 Telephone encounter Gasper byrnes DO Work Phone: [facility] Comment on above: Handicap Placard Start: 02-27-2023 Telephone encounter Gasper byrnes DO Work Phone: [facility] Comment on above: Scheduling Start: 01-15-2023 Orders Only Gasper vargas DO Work Phone: [facility] Start: 01-13-2023 Telephone encounter Gasper byrnes DO Work Phone: [facility] Comment on above: Orders (LDCT) Start: 01-13-2023 End: 01-13-2023 Office outpatient visit 25 minutes Gasper Nelson DO Work Phone: [facility] Comment on above: Chronic obstructive pulmonary disease, unspecified COPD type (HCC) (Primary Dx); Hypercholesterolemia; Gastroesophageal reflux disease without esophagitis; Smoker; Depression, unspecified depression type Start: 11-14-2022 ambulatory [facility] Start: 11-14-2022 Patient encounter procedure [facility] Glover [facility] Start: 11-14-2022 End: 11-14-2022 Office outpatient visit 25 minutes Siomara Estrada PA-C Work Phone: [facility] Comment on above: COPD with acute exac erbation (CMS/HCC) (HCC) (Primary Dx); Lower resp. tract infection; Smoking Start: 10-24-2022 End: 10-24-2022 ambulatory [facility] Work Phone: Start: 10-24-2022 End: 10-24-2022 Patient encounter procedure [facility]-Rad[facility], [facility] Start: 10-20-2022 Telephone encounter Danish berumen DO Work Phone: [facility] Comment on above: Orders Start: 10-17-2022 Telephone encounter Danish berumen DO Work Phone: [facility] Comment on above: Orders (Fax 10/03/22 XR Chest SULAIMAN, Pt at [facility]) Start: 10-04-2022 Telephone encounter Danish berumen DO Work Phone: [facility] Comment on above: Advice Only (cough) Start: 10-03-2022 End: 10-03-2022 Patient encounter procedure Danish Davila DO Work Phone: [facility] Comment on above: Medicare annual [facility] visit, subsequent (Primary Dx); Cough, unspecified type; Chronic obstructive pulmonary disease, unspecified COPD type (HCC); Anxiety; Depression, unspecified depression type; Hypercholesterolemia; Mammogram declined; Colonoscopy refused Start: 04-22-2022 End: 04-22-2022 ambulatory [facility] Work Phone: Start: 04-22-2022 End: 04-22-2022 Patient encounter procedure [facility] Start: 01-31-2022 End: 01-31-2022 [facility] Start: 01-11-2022 End: 01-11-2022 Subsequent hospital visit by physician Danish Davila DO Work Phone: [facility] Comment on above: Menopause Start: 01-10-2022 End: 01-10-2022 Patient encounter procedure [facility] Procedures Date Procedure Procedure Detail Performing Clinician [...] or Pulmonary Embolism (PE)CRITICAL VALUE CALLED TO [id number] Jalen Jonas.RESULTS READ BACK BY SAME. Start: 03-03-[address] Danish Davila DO Work Phone: Start: 03-02-2025 Plain chest X-ray Dr. Danish Davila DO Work Phone: Start: 02-17-[address] Danish Davila DO Work Phone: Start: 02-15-2025 Plain chest X-ray Dr. Danish Davila DO Work Phone: Start: 02-15-2025 Estimated [...] for malignant neoplasm of colon [facility] Start: 12-17-2028 Lipid panel Lipid Panel [facility] Start: 01-14-2028 Lipid panel Lipid Panel [facility] Start: 06-04-2026 Lipid panel Lipid Panel [facility] Start: 11-12-2025 COVID-19 Vaccine ( season) COVID-19 Vaccine ( season) [facility] Comment on above: Postponed from 05/05/2024 (Patient Refus ed) Start: 11-12-2025 RSV Immunization for Adults (1 - Risk 60-74 years 1-dose series) RSV Immunization for Adults (1 - Risk 60-74 years 1-dose series) [facility] Comment on above: Postponed from 2014 (Patient Refus ed) Start: 05-15-2025 Depression Monitoring Depression Monitoring [facility] Start: 05-12-2025 End: 05-12-2025 Patient encounter procedure [facility] [place] Start: 05-05-2025 Influenza vaccination Influenza Vaccine (Season Ended) [facility] Start: 03-06-2025 [facility] Start: 03-06-2025 [facility] Start: 03-05-2025 Patient discharge [facility] Start: 03-03-2025 Influenza vaccination Influenza Vaccine (#1) [facility] Comment on above: Postponed from 05/05/2024 (Patient Refus ed) Start: 03-03-2025 Referral to gastroenterology service [facility] Start: 03-03-2025 Application of intermittent pneumatic compression device [facility] Start: 03-03-2025 Following clinical pathway protocol [facility] Start: 03-03-2025 Aspiration precautions [facility] Start: 03-03-2025 Assessment of risk of venous thromboembolism [facility] Start: 03-03-2025 Incentive spirometry [facility] Start: 03-03-2025 Inhalation therapy procedure [facility] Start: 03-03-2025 Insertion of catheter into peripheral vein [facility] Start: 03-03-2025 Introduction of urinary catheter [facility] Start: 03-03-2025 Measuring intake and output [facility] Start: 03-03-2025 Oxygen therapy [facility] Start: 03-03-2025 Providing care according to standard [facility] Start: 03-03-2025 Provision of activity privileges [facility] Start: 03-03-2025 Referral to service [facility] Start: 03-03-2025 Tobacco use cessation education [facility] Start: 03-03-2025 Electrocardiographic procedure [facility] Start: 03-03-2025 Measurement of occult blood in stool specimen using immunoassay [facility] Start: 03-03-2025 Respiratory pathogens DNA and RNA panel - Respiratory specimen by SHYLA with probe detection [facility] Start: 03-03-2025 Verification routine [facility] Start: 03-03-2025 Admission procedure [facility] Start: 03-03-2025 Hospital admission, emergency, from emergency room, medical nature [facility] Start: 03-03-2025 End: 03-03-2025 [facility] Start: 03-03-2025 Patient referral to dietitian [facility] Start: 03-02-2025 [facility] Start: 02-17-2025 Patient discharge [facility] Start: 02-15-2025 Following clinical pathway protocol [facility] Start: 02-15-2025 Ambulation without limitation [facility] Start: 02-15-2025 Assessment of risk of venous thromboembolism [facility] Start: 02-15-2025 Catheterization of vein [facility] Start: 02-15-2025 Insertion of catheter into peripheral vein [facility] Start: 02-15-2025 Oxygen therapy [facility] Start: 02-15-2025 Providing care according to standard [facility] Start: 02-15-2025 Verification routine [facility] Start: 02-15-2025 Admission procedure [facility] Start: 02-15-2025 Hospital admission, emergency, from emergency room, medical nature [facility] Start: 02-15-2025 End: 02-15-2025 [facility] Start: 02-15-2025 [facility] Start: 02-15-2025 Inhalation therapy procedure [facility] Start: 11-12-2024 End: 11-12-2025 CBC W Auto Differential panel - Blood CBC auto differential Lab Routine Routine general medical examination at [facility] Hypercholesterolemia Expected: 11/12/2024 (Approximate), Expires: 11/12/2025 [facility] Comment on above: Expected: 11/12/2024 (Approximate), Expi res: 11/12/2025 Start: 11-12-2024 End: 11-12-2025 Comprehensive metabolic 1998 panel - Serum or Plasma Comprehensive metabolic panel Lab Routine Routine general medical examination at [facility] Hypercholesterolemia Expected: 11/12/2024 (Approximate), Expires: 11/12/2025 [facility] [employer] Comment on above: Expected: 11/12/2024 (Approximate), Expi res: 11/12/2025 Start: 11-12-2024 End: 01-12-2026 DBT Breast - bilateral screening Bilateral screening mammogram with tomosynthesis Imaging Routine Encounter for screening mammogram for malignant neoplasm of breast Expected: 11/12/2024, Expires: 01/12/2026 [facility] Work Phone: Comment on above: Expected: 11/12/2024, Expires: Start: 11-12-2024 End: 11-12-2025 Lipid 1996 panel - Serum or Plasma Lipid panel Lab Routine Hypercholesterolemia Expected: 11/12/2024 (Approximate), Expires: 11/12/2025 [facility] Comment on above: Expected: 11/12/2024 (Approximate), Expi res: 11/12/2025 Start: 11-12-2024 End: 11-12-2024 Patient encounter procedure [facility] [place] Start: 09-30-2024 End: 09-30-2024 Patient encounter procedure 09/30/2024 4:00 PM EST Office Visit [facility] [place] [address] [place] [phone] Gasper Nelson DO [address] [place] [place] [address] [facility] [place] Start: 09-04-2024 Medicare Advantage Annual Wellness Visit Medicare Advantage Annual Wellness Visit [facility] Start: 08-21-2024 End: 08-21-2024 Patient encounter procedure [facility] Start: 07-29-2024 End: 07-29-2024 Patient encounter procedure 07/29/2024 11:30 AM EST Appointment [facility] [address] [place] [phone] Gasper Nelson DO [address] [place] [place] [phone] [facility] [address] Start: 07-29-2024 Subsequent hospital visit by physician 07/29/2024 11:30 AM EST Hospital Encounter [facility] [address] [place] [phone] Gasper Nelson DO [address] [place] [place] [phone] [facility] [address] Start: 05-05-2024 COVID-19 Vaccine ( season) COVID-19 Vaccine ( season) [facility] Start: 05-05-2024 COVID-19 Vaccine ( season) COVID-19 Vaccine () [facility] Start: 05-05-2024 Influenza vaccination [facility] Start: 04-29-2024 End: 04-29-2024 Patient encounter procedure 04/29/2024 4:00 PM EDT Office Visit [facility] [address] [place] [address] Gasper Nelson DO [address] [place] [address] [facility] Start: 02-24-2024 Screening for malignant neoplasm of colon [facility] Start: 02-22-2024 End: 02-21-2025 CBC W Auto Differential panel - Blood CBC auto differential Lab Routine Chronic obstructive pulmonary disease, unspecified COPD type (HCC) Expected: 02/22/2024 (Approximate), Expires: 02/21/2025 [facility] [employer] Comment on above: Expected: 02/22/2024 (Approximate), Expi res: 02/21/2025 Start: 02-22-2024 End: 02-21-2025 Complete PFT pre and post bronchodilator Complete PFT pre and post bronchodilator PFT Routine Chronic obstructive pulmonary disease, unspecified COPD type (HCC) Expected: 02/22/2024 (Approximate), Expires: 02/21/2025 [facility] [employer] Comment on above: Expected: 02/22/2024 (Approximate), Expi res: 02/21/2025 Start: 02-22-2024 End: 02-21-2025 Comprehensive metabolic 1998 panel - Serum or Plasma Comprehensive metabolic panel Lab Routine Chronic obstructive pulmonary disease, unspecified COPD type (HCC) Expected: 02/22/2024 (Approximate), Expires: 02/21/2025 [facility] [employer] Comment on above: Expected: 02/22/2024 (Approximate), Expi res: 02/21/2025 Start: 02-22-2024 End: 02-21-2025 CT Chest for screening WO contrast CT lung screening follow up low dose Imaging Routine Abnormal CT scan of lung Smoker Expected: 02/22/2024, Expires: 02/21/2025 [facility] Work Phone: Comment on above: Expected: 02/22/2024, Expires: Start: 02-22-2024 End: 04-23-2025 DBT Breast - bilateral screening Bilateral screening mammogram with tomosynthesis Imaging Routine Breast cancer screening by mammogram Expected: 02/22/2024, Expires: 04/23/2025 [facility] [employer] Work Phone: Comment on above: Expected: 02/22/2024, Expires: Start: 02-22-2024 End: 02-22-2024 Patient encounter procedure 02/22/2024 1:00 PM EDT Office Visit [facility] [address] [place] [address] Gasper Nelson DO [address] [place] [address] [facility] Start: 02-14-2024 Screening for malignant neoplasm of colon [facility] Start: 02-05-2024 End: 02-05-2024 Patient encounter procedure 02/05/2024 9:00 AM EDT Office Visit [facility] [address] [place] [address] Gasper Nelson DO [address] [place] [place] [address] [facility] Start: 01-22-2024 End: 01-22-2024 Patient encounter procedure 01/22/2024 10:00 AM EDT Office Visit [facility] [address] [place] [address] Gasper Nelson, DO [address] [place] [address] [facility] Start: 11-02-2023 Medicare Advantage Annual Wellness Visit (AWV) Medicare Advantage Annual Wellness Visit (AWV) [facility] Start: 10-03-2023 Depression Screening Depression Screening [facility] Start: 09-04-2023 Medicare Advantage Annual Wellness Visit Medicare Advantage Annual Wellness Visit [facility] Start: 08-01-2023 End: 08-01-2024 CT Chest for screening WO contrast CT lung screening low dose Imaging Routine Smoker Moderate smoker (20 or less per day) Expected: 08/01/2023, Expires: 08/01/2024 [facility] [employer] Work Phone: Comment on above: Expected: 08/01/2023, Expires: Start: 07-31-2023 End: 07-31-2024 Lipid 1996 panel - Serum or Plasma Lipid panel Lab Routine Hypercholesterolemia Expected: 07/31/2023 (Approximate), Expires: 07/31/2024 [facility] [employer] Work Phone: Comment on above: Expected: 07/31/2023 (Approximate), Expi res: 07/31/2024 Start: 07-14-2023 End: 07-14-2023 Patient encounter procedure [facility] Start: 05-05-2023 COVID-19 Vaccine ( season) COVID-19 Vaccine ( season) [facility] Start: 05-05-2023 Influenza vaccination Influenza Vaccine (#1) [facility] Start: 04-03-2023 End: 04-03-2023 Patient encounter procedure 04/03/2023 1:15 PM EDT Appointment [facility] [address] [place] [phone] Gasper Nelson, DO [address] [place] [address] [facility] [address] Start: 04-02-2023 Depression Monitoring Depression Monitoring [employer] Start: 01-23-2023 End: 01-23-2023 Patient encounter procedure 01/23/2023 Office Visit Family Medicine Kelsie Lisa, ENGINEER FISHING V[employer]SEL - SERVICES MANAGER [address] [place] [address] [facility] Start: 01-13-2023 End: 01-14-2024 CBC W Auto Differential panel - Blood CBC auto differential Lab Routine Smoker Expected: 01/13/2023 (Approximate), Expires: 01/14/2024 [facility] Work Phone: Comment on above: Expected: 01/13/2023 (Approximate), Expi res: 01/14/2024 Start: 01-13-2023 End: 01-14-2024 Comprehensive metabolic 1998 panel - Serum or Plasma Comprehensive metabolic panel Lab Routine Hypercholesterolemia Expected: 01/13/2023 (Approximate), Expires: 01/14/2024 [employer] Comment on above: Expected: 01/13/2023 (Approximate), Expi res: 01/14/2024 Start: 01-13-2023 End: 01-14-2024 CT Chest for screening WO contrast CT lung screening low dose Imaging Routine Smoker Expected: 01/13/2023, Expires: 01/14/2024 [facility] Work Phone: Comment on above: Expected: 01/13/2023, Expires: Start: 01-13-2023 End: 01-14-2024 Lipid 1996 panel - Serum or Plasma Lipid panel Lab Routine Hypercholesterolemia Expected: 01/13/2023 (Approximate), Expires: 01/14/2024 [employer] Comment on above: Expected: 01/13/2023 (Approximate), Expi res: 01/14/2024 Start: 01-13-2023 End: 01-14-2024 Thyrotropin [Units/volume] in Serum or Plasma TSH Lab Routine Hypercholesterolemia Expected: 01/13/2023 (Approximate), Expires: 01/14/2024 [employer] Comment on above: Expected: 01/13/2023 (Approximate), Expi res: 01/14/2024 Start: 01-11-2023 Screening for malignant neoplasm of breast Mammogram [facility] Start: 01-05-2023 Annual Wellness Visit (AWV) Annual Wellness Visit (AWV) [facility] Start: 12-24-2022 Depression Monitoring Depression Monitoring [facility] Start: 10-18-2022 End: 10-18-2023 Alanine aminotransferase [Enzymatic activity/volume] in Serum or Plasma ALT Lab Routine Hypercholesterolemia Expected: 10/18/2022 (Approximate), Expires: 10/18/2023 [facility] Comment on above: Expected: 10/18/2022 (Approximate), Expi res: 10/18/2023 Start: 10-18-2022 End: 10-18-2023 Aspartate aminotransferase [Enzymatic activity/volume] in Serum or Plasma AST Lab Routine Hypercholesterolemia Expected: 10/18/2022 (Approximate), Expires: 10/18/2023 [facility] Comment on above: Expected: 10/18/2022 (Approximate), Expi res: 10/18/2023 Start: 10-18-2022 End: 10-18-2023 Lipid 1996 panel - Serum or Plasma Lipid panel Lab Routine Hypercholesterolemia Expected: 10/18/2022 (Approximate), Expires: 10/18/2023 [facility] Comment on above: Expected: 10/18/2022 (Approximate), Expi res: 10/18/2023 Start: 10-03-2022 End: 10-03-2023 XR Chest 2 Views XR chest 2 views Imaging Routine Cough, unspecified type Expected: 10/03/2022, Expires: 10/03/2023 [facility] Work Phone: Comment on above: Expected: 10/03/2022, Expires: Start: 06-04-2022 Lipid panel Lipids [facility] Start: 04-18-2022 End: 04-18-2022 Patient encounter procedure 04/18/2022 Office Visit Family Medicine Danish Davila, DO [address] [place] [address] [facility] Medical [facility] Start: 02-03-2022 Pneumococcal 65+ years Vaccine (2 - PCV) Pneumococcal 65+ years Vaccine (2 - PCV) [facility] Start: 02-03-2022 Pneumococcal Vaccine: 65+ Years (2 - PCV) Pneumococcal Vaccine: 65+ Years (2 - PCV) [facility] Start: 01-31-2022 [facility] Work Phone: Start: 2014 RSV Immunization aged 60 or older (1 - 1-dose 60+ series) RSV Immunization aged 60 or older (1 - 1-dose 60+ series) [facility] Start: 2014 RSV Immunization for Adults (1 - Risk 60-74 years 1-dose series) RSV Immunization for Adults (1 - Risk 60-74 years 1-dose series) [facility] Start: 2009 Screening for osteoporosis DEXA (modify frequency per FRAX score) [facility] Start: 2004 Screening for malignant neoplasm of breast Breast cancer screen [facility] Start: 2004 Shingles vaccine (1 of 2) Shingles vaccine (1 of 2) [facility] Start: 2004 Zoster Vaccines (1 of 2) Zoster Vaccines (1 of 2) [facility] Start: 1999 Screening for malignant neoplasm of colon [facility] Start: 1973 DTaP/Tdap/Td vaccine (1 - Tdap) DTaP/Tdap/Td vaccine (1 - Tdap) [facility] Start: 1973 DTaP/Tdap/Td Vaccines (1 - Tdap) DTaP/Tdap/Td Vaccines (1 - Tdap) [facility] Start: 1972 Hepatitis C screening [facility] Start: 1955 Hepatitis B Vaccines (1 of 3 - 3-dose series) Hepatitis B Vaccines (1 of 3 - 3-dose series) [facility] Start: 1955 Screening for malignant neoplasm of colon [facility] End: 12-18-2023 CT Chest for screening WO contrast [facility] Work Phone: Comment on above: Once for 1 Occurrences starting 12/18/19 until 12/18/2023 End: 07-29-2024 CT Chest for screening WO contrast [facility] Work Phone: Comment on above: Once for 1 Occurrences starting 07/29/20 until 07/29/2024 Magnesium measurement [facility] OUTSIDE PROCEDURE SCAN OUTSIDE P ROCEDURE SCAN Procedures Ordered: 12/15/2023 [facility] Comment on above: Ordered: 12/15/2023 Patient Education [facility] Work Phone: Patient referral [facility] Work Phone: End: 01-11-2022 Screening digital breast tomosynthesis bi [facility] Work Phone: Comment on above: Once for 1 Occurrences starting 01/12/20 22 until 01/11/2022 Troponin T.cardiac [Mass/volume] in Serum or Plasma by High sensitivity method [facility] Immunizations Immunization Date Immunization Notes Care Provider Emily vora 01-13-2023 Pneumococcal Conjuga te PCV20, Pf (Prevnar 20) Gasper Argentina DO Work Phone: [facility] [employer] 05-26-2022 Covid-19, Pfizer Bivalent Booster, (Age 12y+), Im, 30 Mcg/0e Gasper Nelson DO Work Phone: [facility] 05-26-2022 Influenza, High-dose Seasonal, Quadrivalent, Preservative Free Gasper Nelson DO Work Phone: [facility] 05-26-2022 influenza virus vacc ine, unspecified formulation Gasper Puneetarleen DO Work Phone: [facility] 12-11-2021 Covid-19, Pfizer Gra y Top, Do Not Dilute, (Age 12 Y+), Im, L Jolanta Glover RN [facility] 06-28-2021 Pfizer SARS-CoV-2 Vaccination Jolanta Glover RN [facility] 06-04-2021 Influenza, High-dose , Quadv, 65 yrs +, IM (Fluzone) Danish Davila DO Work Phone: [facility] Work Phone: 02-03-2021 pneumococcal polysaccharide vaccine, 23 valent Danish Davila DO Work Phone: [facility] Work Phone: 10-14-2020 COVID-19, Pfizer Pur ple top, DILUTE for use, 12+ yrs, 30mcg/0.3mL dose Danish Davila DO Work Phone: [facility] Work Phone: 09-23-2020 COVID-19, Pfizer Pur ple top, DILUTE for use, 12+ yrs, 30mcg/0.3mL dose Danish Davila DO Work Phone: [facility] 09-25-2013 hepatitis B vaccine, pediatric or pediatric/adolescent dosage [facility] 05-05-2013 Influenza virus vaccine [facility] 05-05-2013 influenza, seasonal, injectable Gasper Nelson DO Work Phone: [facility] 09-04-2009 Pneumococcal Vaccine [facility] Work Phone: 09-04-2009 pneumococcal vaccine , unspecified formulation [facility] 07-14-2009 novel influenza-H1N1 -09, preservative-free, injectable Gasper Nelson DO Work Phone: [facility] 11-28-2008 hepatitis B vaccine, pediatric or pediatric/adolescent dosage Gasper Nelson DO Work Phone: [facility] 06-02-2008 hepatitis B vaccine, pediatric or pediatric/adolescent dosage Gasper Nelson DO Work Phone: [facility] 05-02-2008 hepatitis B vaccine, pediatric or pediatric/adolescent dosage Gasper Nelson DO Work Phone: [facility] Payers Date Payer Category Payer Self-pay [id number] 2019 Medicare [employer] MEDICARE ADVANTAGE HU[employer] MEDICARE [id number] 2019-Present [address] [address] [place] [address] Medicare O [id number] 2019 Medicare HMO HUMAN MEDICARE Member Subscriber Plan / Payer (Effective 2019-Present) Name: Ashley Gómez Relation to Subscriber: Self Name: Ashley Gómez Payer ID: [id number] ([facility]) Type: Medicare HMO Address: [place] [id number] 2019 Medicare [id number] Unknown [id number] Unknown [id number] 2 Unknown [id number] [id number] 2 Unknown [id number] 2 Unknown [id number] 2 Unknown [id number] 2 Unknown [id number] [id number] 2 Unknown [id number] [id number] 2 Unknown [id number] [id number] 2 Unknown [id number] [id number] 2 Unknown [id number] [id number] 2 Unknown [id number] [id number] 2 Unknown [id number] [id number] 2 Unknown [id number] 2 Social History Date Type Detail Facility Start: 03-24-2020 End: 03-06-2025 Tobacco smoking status NHIS Smokes tobacco daily [employer] Work Phone: Start: 09-24-2019 History of tobacco use Cigarette Smo ker [employer] Work Phone: Start: 03-24-2020 End: 11-12-2024 Cigarettes smoked current (pack per day) - Reported 1 [facility] Work Phone: Start: 03-24-2020 End: 02-22-2024 Tobacco use and exposure Smokeless tobacco non-user [employer] Work Phone: Start: 12-24-2021 End: 02-10-2025 Alcohol intake Ex-drinker (finding) [facility] Work Phone: Start: 05-06-2021 End: 01-04-2022 History SDOH Alcohol Frequency 1 [facility] Work Phone: Start: 03-24-2020 History SDOH Social Connections Phone 2 [employer] Work Phone: Start: 03-24-2020 History SDOH Social Connections Muslim 3 [facility] Work Phone: Start: 03-24-2020 History SDOH Social Connections Living 4 [employer] Work Phone: Start: 01-04-2022 History SDOH Physica l Activity DPW 0 [employer] Work Phone: Start: 1955 Sex Assigned At Female S MA Start: 07-19-2015 End: 01-31-2022 Tobacco smoking status NHIS Unknown if ever smoked [facility] Start: 05-23-2014 None [facility] Start: 05-07-2021 [facility] Start: 05-07-2021 Non-smoker [facility] Start: 11-04-2022 End: 01-13-2023 Exposure to SARS-CoV-2 (event) Not sure [facility] Start: 01-13-2023 End: 11-12-2024 Tobacco use panel [facility] Start: 06-23-2022 Gender identity Identifies as female gender (finding) [facility] Start: 06-23-2022 Sexual orientation Heterosexual (homar you) [facility] Start: 04-04-2022 Sex Female (finding) [facility] How often do you nee d to have someone help you when you read instructions, pamphlets, or other written material from your doctor or pharmacy [SILS] Never [facility] Has the electric, card.io, [employer], or water company threatened to shut off services in your home in past 12Mo No [facility] Are you now , , , , never or living with a partner? [facility] How often to you hav e a drink containing alcohol? Never [facility] Do you feel stress - tense, restless, nervous, or anxious, or unable to sleep at night because your mind is troubled all the time - these days [OSQ] Not at all [facility] (I/We) worried wheth er (my/our) food would run out before (I/we) got money to buy more. Never true [facility] NEGATED: Highlighted row Not [facility] Goals Date Patient Goal Desired Activity /State Functional Status Date Assessment Result Facility 03-05-2025 Functional status Activity Abili ty Standby Assist [facility] Work Phone: 03-04-2025 Functional status Ambulates [facility] Work Phone: 02-17-2025 Functional status Ambulates [facility] Work Phone: Mental Status Date Assessment Result Facility 03-05-2025 Cognitive function Voice/Name [facility] Work Phone: 03-05-2025 Cognitive function Voice/Name [facility] Work Phone: 03-02-2025 Cognitive function Voice/Name [facility] Work Phone: 02-17-2025 Cognitive function Voice/Name [facility] Work Phone: Clinical Notes 10-03-2022 to 03-06-2025 Note Date & Type Note Facility 03-06-2025 Discharge summary [place] [address]-03-2025 Radiology Diagnostic study note [facility] Services [address] [place] [id number] Chest PA and Lateral MR#: [id number] Acct: [id number] Name: ASHLEY GÓMEZ Rep #: [id number] : 1955 F 69 From: Swati Cuenca MD PCP: Dr. Gasper Nelson DO Status: RE G ER Study:Chest PA and Lateral Date of Exam: 03/06/25 Exam# [id number] Ordering Dr: Nicko Pandya DO PROCEDURE: CHEST [...] process or significant interval change Reading Location: [id number] CC: Dr. Nicko DeL una DO; Dr. Gasper Nelson DO ~ Hedis Nurse: Signed [facility] 03-06-2025 Radiology Diagnostic study note [facility] [address] [place], [place] [id number] Abdomen/Pelvis WITH Contrast MR#: [id number] Acct: [id number] Name: ASHLEY GÓMEZ Rep #: [id number] : 1955 F 69 From: Swati Cuenca MD PCP: Dr. Gasper Nelson DO Status: RE G ER Study:Abdomen/Pelvis WITH Contrast Date of Ex am: 03/06/25 Exam# [id number] Ordering Dr: Nicko Pandya DO PROCEDURE: ABDOMEN/PELVIS [...] acute diverticulitis Degenerative bony changes Reading Location: [id number] CC: Dr. Nicko De Luna DO; Dr. Gasper Nelson DO ~ Hedis Nurse: Signed [facility] 03-05-2025 Discharge summary Note Date/Time March 05, 2025 10:22am [facility] Medical Records Department [address] [place] [address] Discharge Summary 03/05/25 0727 MR#: [id number] Acct: [id number] Name: ASHLEY GÓMEZ Rep #:[id number] : 1955 69 From: Kelvin Falk MD PCP: Dr. Gasper Petrilla, DO Status:AD M IN Location: [facility] [id number] 1 Providers Date of Admission: 03/03/25 Primary [...] 84.7 H, Lymph % (Auto) 11.9 L, Cobb % (Auto) 2.4, Eos % (Auto) 0.3, [...] Self Care Charges/Coding Visit Charges Inpatient E&M: 10639 Disch Hosp >30min 03/05/25 1022 <Electronically signed by Kelvin Falk MD> Cosigner Signature (if applicable): CC: Dr. Kelvin Falk MD; Dr. Gasper Nelson DO~ Signed [facility] Work Phone: 1(269) 898-175407-02-2025 Discharge summary [facility] Medical Records Department [address] [place] [address] Discharge Summary 03/05/25 0727 MR#: [id number] Acct: [id number] Name: ASHLEY GÓMEZ Rep #:[id number] : 1955 69 From: Kelvin Falk MD PCP: Dr. Gasper Nelson DO Status:AD M IN Location: [place] [address]- 1 Providers Date of Admission: 03/03/25 Primary Care Physician: Dr. Gasper Nelson DO Consultations 03/03/25 07:29 Consult: Gastroenterology Routine Consulting Provider: [facility] Reason for Consult: Hematemesis EMERGENT Consult: [...] 84.7 H, Lymph % (Auto) 11.9 L, Cobb % (Auto) 2.4, Eos % (Auto) 0.3, [...] Self Care Charges/Coding Visit Charges Inpatient E&M: 63628 Disch Hosp >30min 03/05/25 1022 Cosigner Signature (if applicable): CC: Dr. Kelvin Falk MD; Dr. Gasper Nelson DO~ Signed [facility]07-02-2025 [facility] Medical Records Department [address] [place] [address] Discharge Summary 03/05/25 0727 MR#: [id number] Acct: [id number] Name: ASHLEY GÓMEZ Rep #: [id number] : 1955 69 From: Kelvin Falk MD PCP: Dr. Gasper Nelson DO Status:ADM IN Location: [place] [id number] Providers Date of Admission: 03/03/25 Primary Care Physician: Dr. Gasper Nelson DO Consultations 03/03/25 07:29 Consult: Gastroenterology Routine Consulting Provider: [facility] Reason for Consult: Hematemesis EMERGENT Consult: [...] 84.7 H, Lymph % (Auto) 11.9 L, Cobb % (Auto) 2.4, Eos % (Auto) 0.3, [...] H, Calcium 9.6, Robert (more content not included)...[facility]07-01-2025 Progress note Author Kelvin Falk [facility] Note Date/Time March 04, 2025 12:23 pm [facility] Medical Records Department [address] [place] [address] Progress Note - Hospitalist 03/04/25 1215 MR#: [id number] Acct: [id number] Name: ASHLEY GÓMEZ Rep #:[id number] : 1955 69 From: Kelvin Falk MD PCP: Dr. Gasper Nelson, DO Status:AD M IN Location: [place] [address]- 1 Reason for Visit Reason for Visit: [...] on presentation Charges/Coding Visit Charges Inpatient E&M: 41381 Subs Hosp L2 03/04/25 1223 <Electronically signed by Kelvin Falk MD> Cosigner Signature (if applicable): CC: ~ Signed [facility] Work Phone: 1(741) 734-146007-01-2025 Progress note [facility] Medical Records Department [address] [place] [address] Progress Note - Hospitalist 03/04/25 1215 MR#: [id number] Acct: [id number] Name: ASHLEY GÓMEZ Rep #:[id number] : 1955 69 From: Kelvin Falk MD PCP: Dr. Gasper Nelson, DO Status:AD M IN Location: [place] [address] Reason for Visit Reason for Visit: Diagnoses [...] on presentation Charges/Coding Visit Charges Inpatient E&M: 77179 Subs Hosp L2 03/04/25 1223 Cosigner Signature (if applicable): CC: ~ Signed [facility]06-30-2025 Progress note Author [facility] Note Date/Time March 03, 2025 5:53 pm [facility] Medical Records Department [address] [place] [address] Progress Note - Hospitalist 03/03/25 175 MR#: [id number] Acct: [id number] Name: ASHLEY GÓMEZ Rep #:[id number] : 1955 69 From: Bunny Avilez DO PCP: Dr. Gasper Nelson, DO Status:AD M IN Location: [place] [address]- Hospitalist Note Patient was seen and examined [...] Cosigner Signature (if applicable): CC: ~ Signed [facility] Work Phone: 1(814) 826-827006-30-2025 Consult note Author Peyton Christopher [facility] Note Date/Time March 03, 2025 4:46 pm [facility] Medical Records Department [address] [place] [address] Anesthesia Postop Eval II 03/03/25 1645 MR#: [id number] Acct: [id number] Name: ASHLEY GÓMEZ Rep #:[id number] : 1955 69 From: Peyton Christopher CRNA PCP: Dr. Gasper Nelson, DO Status:AD M IN Y Race: C Location: [place] [address] 8-1 Anesthesia Postop Eval I Sum Postop Eval Completion status Anesthesia document: Postop Eval 1 completed: Yes Anesthesia Postop Eval I Summary Anesthesia Postop Eval I Summary: Anesthesia Postop Eval I: Assessment Summary Airway patent Yes 03/03/25 14:08 RADIO INTELLIGENCE OPERATOR.TNES Spontaneous unlabored Yes 03/03/25 14:08 RADIO INTELLIGENCE OPERATOR.TNES respirations Mental status nausea No 03/03/25 14:08 RADIO INTELLIGENCE OPERATOR.TNES Vomiting No 03/03/25 14:08 RADIO INTELLIGENCE OPERATOR.TNES Anesthesia Postop Eval I: Fluid Summary Crystalloid volume administer 200 03/03/25 14:08 RADIO INTELLIGENCE OPERATOR.TNES (ml) Colloids volume administered ( ml) Blood Product volume administered (ml) Total IV fluid infused 200 03/03/25 14:08 RADIO INTELLIGENCE OPERATOR.TNES Anesthesia Postop Eval I: Summary Notes Anesthesia Complication No 03/03/25 14:08 RADIO INTELLIGENCE OPERATOR.TNES Anesthesia Complication Comment: Post-operative progress note Anesthesia: Postop Eval II Evaluation Mental status: Awake Pain Level: 1 nausea: No Vomiting: No 03/03/25 1646 <Electronically signed by Peyton bacon CRNA> Date _ Peyton Christopher CRNA Cosigner Signature: Date CC: ~ Signed [facility] Work Phone: 1(661) 780-791806-30-2025 Progress note [facility] Medical Records Department [address] [place] [address] Progress Note - Hospitalist 03/03/25 1751 MR#: [id number] Acct: [id number] Name: ASHLEY GÓMEZ Rep #:[id number] : 1955 69 From: Bunny Avilez DO PCP: Dr. Gasper Nelson DO Status:AD M IN Location: [place] [address] Hospitalist Note Patient was seen and examined [...] Cosigner Signature (if applicable): CC: ~ Signed [facility]06-30-2025 Consult note [facility] Medical Records Department [address] [place] [address] Anesthesia Postop Eval II 03/03/25 1645 MR#: [id number] Acct: [id number] Name: ASHLEY GÓMEZ Rep #:[id number] : 1955 69 From: Peyton Christopher CRNA PCP: Dr. Gasper Nelson, DO Status:AD M IN Y Race: C Location: [place] [address] Anesthesia Postop Eval I Sum Postop Eval Completion status Anesthesia document: Postop Eval 1 completed: Yes Anesthesia Postop Eval I Summary Anesthesia Postop Eval I Summary: Anesthesia Postop Eval I: Assessment Summary Airway patent Yes 03/03/25 14:08 RADIO INTELLIGENCE OPERATOR.TNES Spontaneous unlabored Yes 03/03/25 14:08 RADIO INTELLIGENCE OPERATOR.TNES respirations Mental status nausea No 03/03/25 14:08 RADIO INTELLIGENCE OPERATOR.TNES Vomiting No 03/03/25 14:08 RADIO INTELLIGENCE OPERATOR.TNES Anesthesia Postop Eval I: Fluid Summary Crystalloid volume administer 200 03/03/25 14:08 RADIO INTELLIGENCE OPERATOR.TNES (ml) Colloids volume administered ( ml) Blood Product volume administered (ml) Total IV fluid infused 200 03/03/25 14:08 RADIO INTELLIGENCE OPERATOR.TNES Anesthesia Postop Eval I: Summary Notes Anesthesia Complication No 03/03/25 14:08 RADIO INTELLIGENCE OPERATOR.TNES Anesthesia Complication Comment: Post-operative progress note Anesthesia: Postop Eval II Evaluation Mental status: Awake Pain Level: 1 nausea: No Vomiting: No 03/03/25 1646 a RADIO INTELLIGENCE OPERATOR> Date _ Peyton Christopher RADIO INTELLIGENCE OPERATOR Cosigner Signature: Date CC: ~ Signed [facility]06-30-2025 Consult note Author Mack Stone [facility] Note Date/Time March 03, 2025 2:08 pm [facility] Medical Records Department [address] [place] [address] Anesthesia Postop Eval I 03/03/251407 MR#: [id number] Acct: [id number] Name: ASHLEY GÓMEZ Rep #:[id number] : 1955 69 From: Mack BOND PCP: Dr. Gasper Nelson, DO Status:AD M IN Y Race: C Location: [place] [address] Anesthesia: Postop Eval I Current Vital Signs [...] CRNA Cosigner Signature: Date CC: ~ Signed [facility] Work Phone: 1(155) 998-849606-30-2025 Consult note Author David Valadez [facility] Note Date/Time March 03, 2025 1:38 pm [facility] Medical Records Department [address] [place] [address] Pre-Anesthesia Evaluation 03/03/25 1332 MR#: [id number] Acct: [id number] Name: ASHLEY GÓMEZ Rep #:[id number] : 1955 69 From: David Valadez MD PCP: Dr. Gasper Nelson, DO Status:AD M IN Y Race: C Location: [place] [address] ASA Classification* ASA Classification ASA Classification: 3 [...] Procedure(s): Esophagogastroduodenoscopy. Anesthesia History Anesthesia History - casino accountant: Anesthesia History - casino accountant Hx Hospitalization No 04/26/24 14:43 Any Problems [...] sips of water?: Yes PONV PONV - casino accountant: PONV - casino accountant Female HX of Motion Sickness HX of N/V After Surgery Non-Smoker Duration of Surgery greater than 60 minutes Number of Risk Factors PONV Score Height & Weight Height & Weight: Anesthesia: Height & Weight Height 5 ft 4 in 03/03/25 10:07 Weight: 47.1 kg 03/03/25 10:07 Body Mass Index (BMI) 17.8 03/03/25 12:10 Respiratory Assessment Respiratory Assessment - casino accountant: Respiratory Tract Infection Hx - casino accountant Hx Respiratory Tract Infection No 04/26/24 14:43 STOP Sleep Apnea STOP Sleep Apnea - casino accountant: STOP Sleep Apnea - casino accountant Hx Hypertension No 03/03/25 04:02 Hx Sleep [...] 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 - casino accountant: Tobacco Use History - casino accountant Tobacco Use Non-smoker 05/07/21 09:04 Smoking Status Current every day smoker 03/03/25 04:02 Hx Tobacco Use Yes 03/03/25 04:02 Years Smoking Packs Smoked per Day Smoking Cessation Date was within the last 15 years Hx Smoking Cessation Date Hx Smoking Cessation No 03/03/25 04:02 Counseling Hematologic Medial History Hematologic Hx - casino accountant: 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 Hx of Blood Transfusion No 03/03/25 04:02 [...] confused, unrespo /Reproduction History /Reproductive History - casino accountant: /Reproductive Hx- casino accountant Hx Now No 03/03/25 12:10 Gestational Age [...] mls @ 15 mls/hr 03/03/25 04:03 IV .[id number] PRN Saline Flush Sodium Chloride 250 mls @ 15 mls/hr 03/03/25 04:03 IV .[id number] PRN Additional IVPB Infusion Lactated Ringer's 1,000 [...] none current occupational status: employed current occupation: [employer] Smoking Status: Current every day smoker tobacco type: cigarettes Tobacco: How many years used: 4 alcohol intake: former substance use type: does not use Review of Systems (Anesthesia) ROS Narrative System reviewed and no additional complaints, except as documented. 03/03/25 1334 <Electronically signed by David hinkle MD> Date _ David Valadez MD Cosigner Signature: Date CC: ~ Signed [facility] Work Phone: 1(927) 742-453906-30-2025 Progress note Author Slim Friend [facility] Note Date/Time March 03, 2025 12:2 7pm [facility] Medical Records Department [address] [place] [address] Progress Note 03/03/25 1223 MR#: [id number] Acct: [id number] Name: ASHLEY GÓMEZ Rep #:[id number] : 1955 69 From: Slim Weiss DO PCP: Dr. Gasper Nelson, DO Status:AD M IN Location: [facility] [id number]- 1 Progress Note 69-year-old with multiple medical problems who was recently discharged from [facility] for COPD exacerbation. She presented to the [facility] ED on 03/03/2025 with history of approximately [...] with COPD, history of non-ST segment elevation [place] who presentswith multiple episodes of hematemesis. Differential diagnosis does include Marcela- Arriola tear, or esophagitis, peptic ulcer disease and less likely neoplasia. She should undergo an upper endoscopy evaluate upper GI tract. She was explained alternatives, risk, benefits include not withstanding bleeding, infection, sepsis, perforation, need for emergent . She will have an ASA of 3. Visit Charges Inpatient E&M: 81412 Subs Hosp L3 03/03/25 1224 <Electronically signed by Slim Weiss DO> Slim Weiss DO Cosigner Signature (if applicable): CC: ~ Signed [facility] Work Phone: 1(793) 990-535106-30-2025 Consult note [facility] Medical Records Department [address] [place] [address] Anesthesia Postop Eval I 03/03/25 1408 MR#: [id number] Acct: [id number] Name: ASHLEY GÓMEZ Rep #:[id number] : 1955 69 From: Mack BOND PCP: Dr. Gasper Nelson, DO Status:AD M IN Y Race: C Location: [place] [address] Anesthesia: Postop Eval I Current Vital Signs Temperature: 99.4 F Pulse Rate: 91 Blood Pressure: 132/69 Respiratory Rate: 16 Pulse Ox: 99 Assessment Airway patent: Yes Spontaneous unlabored respirations: Yes nausea: No Vomiting: No Anesthesia Complication: No Fluid Hydration Crystalloid volume administer (ml): 200 Total IV fluid infused: 200 Progress Note Anesthesia document: Postop Eval 1 completed: Yes 03/03/25 140 RADIO INTELLIGENCE OPERATOR> Date _ Mack Stone RADIO INTELLIGENCE OPERATOR Cosigner Signature: Date CC: ~ Signed [facility]06-30-2025 Procedure note [facility] Medical Records Department [address] [place] [address] EGD Report MR#: [id number] Acct: [id number] Name: ASHLEY GÓMEZ Rep #:[id number] : 1955 69 From: Slim Weiss DO [...] pathology results. Procedure Code(s): --- Professional --- 42846, Small intestinal endoscopy, enteroscopy beyond second portion of duodenum, not including ileum; with biopsy, single or multiple CPT copyright 2021 [employer]. All rights reserved. The codes documented in this report are preliminary and upon manufacturing engineer automotive review may be revised to meet current compliance requirements. Slim Weiss DO 03/03/2025 2:03:52 PM This report has been signed electronically. Number of Addenda: 0 Note Initiated On: 03/03/2025 1:55 PM 03/03/25 1404 Date _ Slim Weiss DO Cosigner Signature: Date (if indicated) CC: Dr. Gasper Nelson DO; Slim Weiss DO ~ Date Dictated: 03/03/25 1355 Date Transcribed: Hedis Nurse: RF Signed [facility]06-30-2025 Procedure note [facility] Medical Records Department [address] [place] [address] Operative Report - CC Letter MR#: [id number] Acct: [id number] Name: ASHLEY GÓMEZ Rep #:[id number] : 1955 69 From: Slim Weiss DO [...] ~ Date Dictated: 03/03/25 1355 Date Transcribed: Hedis Nurse: RF Signed [facility]06-30-2025 Consult note [facility] Medical Records Department [address] [place] [address] Pre-Anesthesia Evaluation 03/03/25 1332 MR#: [id number] Acct: [id number] Name: ASHLEY GÓMEZ Rep #:[id number] : 1955 69 From: David Valadez MD PCP: Dr. Gasper Nelson DO Status:AD M IN Y Race: C Location: [place] [address] ASA Classification* ASA Classification ASA Classification: 3 [...] Procedure(s): Esophagogastroduodenoscopy. Anesthesia History Anesthesia History - casino accountant: Anesthesia History - casino accountant Hx Hospitalization No 04/26/24 14:43 Any Problems [...] sips of water?: Yes PONV PONV - casino accountant: PONV - casino accountant Female HX of Motion Sickness HX of N/V After Surgery Non-Smoker Duration of Surgery greater than 60 minutes Number of Risk Factors PONV Score Height & Weight Height & Weight: Anesthesia: Height & Weight Height 5 ft 4 in 03/03/25 10:07 Weight: 47.1 kg 03/03/25 10:07 Body Mass Index (BMI) 17.8 03/03/25 12:10 Respiratory Assessment Respiratory Assessment - casino accountant: Respiratory Tract Infection Hx - casino accountant Hx Respiratory Tract Infection No 04/26/24 14:43 STOP Sleep Apnea STOP Sleep Apnea - casino accountant: STOP Sleep Apnea - casino accountant Hx Hypertension No 03/03/25 04:02 Hx Sleep [...] 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 - casino accountant: Tobacco Use History - casino accountant Tobacco Use Non-smoker 05/07/21 09:04 Smoking Status Current every day smoker 03/03/25 04:02 Hx Tobacco Use Yes 03/03/25 04:02 Years Smoking Packs Smoked per Day Smoking Cessation Date was within the last 15 years Hx Smoking Cessation Date Hx Smoking Cessation No 03/03/25 04:02 Counseling Hematologic Medial History Hematologic Hx - casino accountant: 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 Hx of Blood Transfusion No 03/03/25 04:02 [...] confused, unrespo /Reproduction History /Reproductive History - casino accountant: /Reproductive Hx- casino accountant Hx Now No 03/03/25 12:10 Gestational Age [...] mls @ 15 mls/hr 03/03/25 04:03 IV .[id number] PRN Saline Flush Sodium Chloride 250 mls @ 15 mls/hr 03/03/25 04:03 IV .[id number] PRN Additional IVPB Infusion Lactated Ringer's 1,000 [...] none current occupational status: employed current occupation: [employer] Smoking Status: Current every day smoker tobacco type: cigarettes Tobacco: How many years used: 4 alcohol intake: former substance use type: does not use Review of Systems (Anesthesia) ROS Narrative System reviewed and no additional complaints, except as documented. 03/03/25 1338 arin CHISHOLM> Date _ David Valadez MD Cosigner Signature: Date CC: ~ Signed [facility]06-30-2025 Progress note [facility] Medical Records Department [address] [place] [address] Progress Note 03/03/25 1223 MR#: [id number] Acct: [id number] Name: ASHLEY GÓMEZ Rep #:[id number] : 1955 69 From: Slim Friend DO PCP: Dr. Gasper Nelson DO Status:AD M IN Location: [place] [address] Progress Note 69-year-old with multiple medical problems who was recently discharged from [facility] for COPD exacerbation. She presented to the [facility] ED on 03/03/2025 with history of approximately [...] with COPD, history of non-ST segment elevation [place] who presentswith multiple episodes of hematemesis. Differential diagnosis does include Marcela-Arriola tear, or esophagitis, peptic ulcer disease and less likely neoplasia. She should undergo an upper endoscopy evaluate upper GI tract. She was explained alternatives, risk, benefits include not withstanding bleeding, infection, sepsis, perforation, need for emergent . She will have an ASA of 3. Visit Charges Inpatient E&M: 14852 [facility] Hosp 03/03/25 1227 Slim Friend DO Cosigner Signature (if applicable): CC: ~ Signed [facility]06-30-2025 Discharge summary Author Abdulkadir Peralta [facility] Note Date/Time March 03, 2025 7:01 am [facility] Medical Records Department [address] [place] [address] Emergency Department Summary 03/02/25 MR#: [id number] Acct: [id number] Name: ASHLEY GÓMEZ Rep #:[id number] : 1955 69 From: Abdulkadir Peralta DO PCP: Dr. Gasper Nelson, Status:AD M IN Location: [address] History of Present Illness Chief Complaint: [...] wear home O2. She denies any diarrhea. [facility] Medical History Hypokalemia Smoker Hypoxia COPD [...] corrected for age. Lactate was 2.4. Troponin [id number]. LFTs showed an AST of 40 with [...] 82.4 H Lymph % (Auto) 11.1 L Cobb % (Auto) 5.4 Eos % (Auto) 0.3 [...] IMPRESSION: No acute chest findings Reading Location: [facility] Chest/Abdomen/Pelvis CT 03/03/25 01:31 IMPRESSION: Right lung band atelectasis. Esophageal reflux. Reading Location: [place] [address] Discharge Plan Dx/Rx/DC Orders Clinical Impression: Non-ST elevated myocardial infarction, Intractable nausea and vomiting, Hypoxemia, History of COPD Disposition Disposition: Acute Care Hospital [facility] What to do if you have Problems For any increased pain, shortness of breath, bleeding, nausea or vomiting, chestpain, or any unexpected problems, contact your Primary Care Provider. Call [facility] ([phone]) or report to the closest Emergency Room. Call 911 if necessary. 03/03/25 0701 <Electronically signed by Abdulkadir Peralta DO> Cosigner Signature (if applicable): CC: Dr. Gasper Nelson DO ~ Signed [facility] Work Phone: 1(662) 775-326006-30-2025 Discharge summary [facility] Medical Records Department [address] [place] [address] Emergency Department Summary 03/02/25 MR#: [id number] Acct: [id number] Name: ASHLEY GÓMEZ Rep #:[id number] : 1955 69 From: Abdulkadir Peralta DO PCP: Dr. Gasper Nelson DO Status:AD M IN Location: [address] History of Present Illness Chief Complaint: [...] wear home O2. She denies any diarrhea. [facility] Medical History Hypokalemia Smoker Hypoxia COPD [...] none current occupational status: employed current occupation: [employer] Smoking Status: Current every day smoker [...] shortness of breath after being hospitalized in [facility] in [place]. She presents with vomiting [...] corrected for age. Lactate was 2.4. Troponin [id number]. LFTs showed an AST of 40 with [...] 82.4 H Lymph % (Auto) 11.1 L Cobb % (Auto) 5.4 Eos % (Auto) 0.3 [...] of COPD Disposition Disposition: Acute Care Hospital [facility] What to do if you have Problems For any increased pain, shortness of breath, bleeding, nausea or vomiting, chestpain, or any unexpected problems, contact your Primary Care Provider. Call [facility] ([phone]) or report tothe closest Emergency Room. Call 911 if necessary. 03/03/25 0701 Cosigner Signature (if applicable): CC: Dr. Gasper Nelson, DO ~ Signed [facility]06-30-2025 History and physical note Author Tonja Jo [facility] Note Date/Time March 03, 2025 4:05 am [facility] Medical Records Department [address] [place] [address] H&P Exam - Hospitalist 03/03/25 0313 MR#: [id number] Acct: [id number] Name: ASHLEY GÓMEZ Rep #:[id number] : 1955 69 From: Tonja Jo MD PCP: Dr. Gasper Nelson, DO Status:AD M IN Location: [place] [id number]- [id number] HPI - General General Date of [...] therapy of note who presents to the [facility] ED on 03/03/2025 with history of approximately 72 hours of onset of malaise, fatigue with nausea and emesis reportedly hospitalized in [place] however she left AMA to return to [facility] reporting that she has been having hematemesis [...] none current occupational status: employed current occupation: [employer] Smoking Status: Current every day smoker tobacco [...] (Auto) 82.4 H, Lymph % (Auto) 11.1 L,Cobb % (Auto) 5.4, Eos % (Auto) 0.3, [...] therapy of note who presents to the [facility] ED on 03/03/2025 with history of approximately 72 hours of onset of malaise, fatigue with nausea and emesis reportedly hospitalized in [place] however she left AMA to return to [facility] reporting that she has been having hematemesis [...] Patient does not have healthcare power of divorce attorney or living will in place but [...] 16 minutes. Charges/Coding Visit Charges Inpatient E&M: 55798 Init Hosp L3 Procedures Hospitalists Procedures: 14593 Advncd Care Plan 30 Min 03/03/25 3645 <Electronically signed by Tonja Jo MD> Cosigner Signature (if applicable): CC: Dr. Tonja Jo MD; Dr. Gasper Nelson, DO~ Signed [facility] Work Phone: 1(765) 663-239406-30-2025 History and physical note [facility] Medical Records Department [address] [place] [address] H&P Exam - Hospitalist 03/03/25 0313 MR#: [id number] Acct: [id number] Name: ASHLEY GÓMEZ Rep #:[id number] : 1955 69 From: Tonja Jo MD PCP: Dr. Gasper Nelson, Status:AD M IN Location: [facility] [id number]- 1 HPI - General General Date of [...] therapy of note who presents to the [facility] ED on 03/03/2025 with history of approximately 72 hours of onset of malaise, fatigue with nausea and emesis reportedly hospitalized in [place] however she leftAMA to return to [facility] reporting that she has been having hematemesis [...] none current occupational status: employed current occupation: [employer] Smoking Status: Current every day smoker tobacco [...] %(Auto) 82.4 H, Lymph % (Auto) 11.1 L,Cobb % (Auto) 5.4, Eos % (Auto) 0.3, [...] therapy of note who presents to the [facility] ED on 03/03/2025 with history of approximately 72 hours of onset of malaise, fatigue with nausea and emesis reportedly hospitalized in [place] however she leftAMA to return to [facility] reporting that she has been having hematemesis [...] Patient does not have healthcare power of divorce attorney or living will in place but [...] 16 minutes. Charges/Coding Visit Charges Inpatient E&M: 76816 Init Hosp L3 Procedures Hospitalists Procedures: 47138 Advncd Care Plan 30 Min 03/03/25 0405 Cosigner Signature (if applicable): CC: Dr. Tonja Jo MD; Dr. Gasper Nelson, DO~ Signed [facility]06-30-2025 Radiology Diagnostic study note [facility] Imaging Services [address] [place], [place] [address] CT Chest, Abd, Pel w/Contrast MR#: [id number] Acct: [id number] Name: ASHLEY GÓMEZ Rep #: [id number] : 1955 F 69 From: Flori Vidales MD PCP: Dr. Gasper Nelson DO Status: [facility] ER Study:CT Chest, Abd, Pel w/Contrast Date of E xam: 03/03/25 Exam# [id number] Ordering Dr: Sol Peralta DO PROCEDURE: CT [...] lung band atelectasis. Esophageal reflux. Reading Location: [facility]-2 CC: Dr. Gasper Nelson DO; Dr. Abdulkadir Peralta DO ~ Hedis Nurse: Signed [facility]06-30-2025 Radiology Diagnostic study note [facility] Imaging Services [address] [place] [address] Chest 1 View (Portable) MR#: [id number] Acct: [id number] Name: ASHLEY GÓMEZ Rep #: [id number] : 1955 F 69 From: Flori Vidales MD PCP: Dr. Gasper Nelson DO Status: RE G ER Study:Chest 1 View (Portable) Date of Exam: 03/02/25 Exam# [id number] Ordering Dr: Sol Peralta DO PROCEDURE: CHEST 1 VIEW (PORTABLE) 03/03/2025 REASON FOR EXAM: DYSPNEA TECHNIQUE: Frontal view of the chest. COMPARISON: 02/15/2025 FINDINGS: Scoliosis. Normal heart size. Well inflated lungs. No consolidation, effusion, or pneumothorax. RAD/Chest 1 View (Portable) IMPRESSION: No acute chest findings Reading Location: [facility] CC: Dr. Gasper Nelson DO; Dr. Abdulkadir Peralta DO ~ Hedis Nurse: Signed [facility]06-23-2025 Telephone encounter Note* Telephone Encounter - Juju Patton MA - 02/24/2025 11:05 AM EDT Recent Visits Date Type Provider Dept 11/12/24 Office Visit Siomara Estrada PA-C [facility] Showing recent visits within past 365 days and meeting all other requirements Future Appointments Date Type Provider Dept 05/12/25 Appointment Gasper Nelson DO [facility] Showing future appointments within next 90 [...] labs completed in chart? [id number] Miscellaneous Notes* Telephone Encounter - Juju Patton MA - 02/24/2025 11:05 AM EDT Recent Visits Date Type Provider Dept 11/12/24 Office Visit Siomara Estrada PA-C [facility] Showing recent visits within past 365 days and meeting all other requirements Future Appointments Date Type Provider Dept 05/12/25 Appointment Gasper Nelson DO [facility] Showing future appointments within next 90 [...] chart? N/A documented in this [facility]06-16-2025 Discharge summary [facility] Medical Records Department [address] [place] [address] Instructions for Home/Discharge Instructions 02/17/25 1052 MR#: [id number] Acct: [id number] Name: ASHLEY GÓMEZ Rep #:[id number] : 1955 69 From: Bunny Avilez DO [...] CC: Dr. Danish Davila DO ~ Signed [facility]06-16-2025 [facility] Medical Records Department [address] [place] [address] Discharge Summary 02/17/25 1059 MR#: [id number] Acct: [id number] Name: ASHLEY GÓMEZ Rep #: [id number] : 1955 69 From: Bunny Avilez DO PCP: Dr. Danish Davila DO Status:DIS IN Location: ID3 [id number] Providers Date of Admission: 02/15/25 Date of [...] was seen in the emergency room at [facility] with complaints of shortness of breath for [...] no acute process. Patient was admitted to [place] [address] for exacerbation of COPD and treated with [...] or = to 20 (more content not included)...[facility]06-15-2025 Progress note Author Bunny Avilez [facility] Note Date/Time February 16, 2025 11:2 2am [facility] Medical Records Department [address] [place] [address] Progress Note - Hospitalist 02/16/25 1117 MR#: [id number] Acct: [id number] Name: ASHLEY GÓMEZ Rep #:[id number] : 1955 69 From: Bunny Avilez DO PCP: Dr. Danish Davila, Status:ADM IN [id number] Reason for Visit Reason for Visit: Diagnoses [...] 35 minutes Charges/Coding Visit Charges Inpatient E&M: 59452 Subs Hosp L2 02/16/25 1122 <Electronically signed by Bunny Avilez DO> Cosigner Signature (if applicable): CC: ~ Signed [facility] Work Phone: 1([phone]) 796-940206-15-2025 Progress note [facility] Medical Records Department [address] [place] [address] Progress Note - Hospitalist 02/16/25 1117 MR#: [id number] Acct: [id number] Name: ASHLEY GÓMEZ Rep #:[id number] : 1955 69 From: Bunny Avilez DO PCP: Dr. Danish Davila DO Status:ADM IN Location: [place] [address]-1 Reason for Visit Reason for Visit: Diagnoses [...] 35 minutes Charges/Coding Visit Charges Inpatient E&M: 40181 Subs Hosp L2 02/16/25 1122 Cosigner Signature (if applicable): CC: ~ Signed [facility]06-14-2025 History and physical note Author Bunny Avilez [facility] Note Date/Time February 15, 2025 3:06 pm [facility] Medical Records Department [address] [facility] [place] [address] H&P Exam - Hospitalist 02/15/25 0620 MR#: [id number] Acct: [id number] Name: ASHLEY GÓMEZ Rep #:[id number] : 1955 69 From: Bunny Avilez DO PCP: Dr. Danish Davila, DO Status:ADM IN Location: MS3 ID695-9 HPI - General General Date of Admission: 02/15/25 Date of Service: 02/15/25 Chief Complaint: Shortness of breath HPI Narrative ASHLEY GÓMEZ, is a 69 F who presents to the emergency room at [facility] with complaints of shortness of breath over [...] acute infiltrates patient will be admitted to [place] [address] for exacerbation of COPD with hypoxia, she [...] none current occupational status: employed current occupation: [employer] Smoking Status: Current every day smoker tobacco [...] (Auto) 77.0 H, Lymph % (Auto) 19.2, Cobb % (Auto) 1.9, Eos % (Auto) 0.7, [...] 09:25 IMPRESSION: No acute process [facility] Assessment & Plan Assessment/Plan (1) COPD exacerbation: PLAN: Plan 1. Exacerbation of COPD-patient will be admitted to [facility] 3 and given aerosoltreatments and [...] 55 minutes Charges/Coding Visit Charges Inpatient E&M: 76938 Init Hosp L2 02/15/25 1506 <Electronically signed by Bunny Avilez DO> Cosigner Signature (if applicable): CC: Dr. Bunny Avilez, ; Dr. Danish Davila DO~ Signed [facility] Work Phone: 1(954) 347-760406-14-2025 History and physical note [facility] Medical Records Department [address] [facility] [place] [address] H&P Exam - Hospitalist 02/15/25 1459 MR#: [id number] Acct: [id number] Name: ASHLEY GÓMEZ Rep #:[id number] : 1955 69 From: Bunny Avilez DO PCP: Dr. Danish Davila DO Status:ADM IN Location: [facility] CW870-5 HPI - General General Date of Admission: 02/15/25 Date of Service: 02/15/25 Chief Complaint: Shortness of breath HPI Narrative ASHLEY GÓMEZ, is a 69 F who presents to the emergency room at [facility] with complaints of shortness of breath over [...] acute infiltrates patient will be admitted to [place] [address] for exacerbation of COPD with hypoxia, she [...] none current occupational status: employed current occupation: [employer] Smoking Status: Current every day smoker tobacco [...] (Auto) 77.0 H, Lymph % (Auto) 19.2, Cobb % (Auto) 1.9, Eos % (Auto) 0.7, [...] 09:25 IMPRESSION: No acute process Reading [facility] Assessment & Plan Assessment/Plan (1) COPD exacerbation: PLAN: Plan 1. Exacerbation of COPD-patient will be admitted to [place] [address] and given aerosoltreatments and IV Solu-Medrol #2 [...] 55 minutes Charges/Coding Visit Charges Inpatient E&M: 61841 Init Hosp L2 02/15/25 1506 Cosigner Signature (if applicable): CC: Dr. Bunny Avilez, DO; Dr. Danish Davila, DO~ Signed [facility]06-14-2025 Evaluation note* Diagnosis Onset Date Resolution Status Admit Date Hypokalemia acute February 15 11:21am Hypoxia acute February 15 11:21am Smoker acute February 15 11:21am COPD exacerbation chronic February 152024 11:21am [facility] Work Phone: 1(704) 860-502706-14-2025 Evaluation note* Diagnosis Onset Date Resolution Status Admit Date COPD exacerbation inactive February 152024 11:21am Hypokalemia inactive February 15 11:21am Hypoxia inactive February 15 11:21am Smoker inactive February 15 11:21am Hypoxemia acute March 03 3:30am Intractable nausea and vomiting acut e March 03, 2025 3:30am Non-ST elevated myocardial infarction acute March 03, 2025 3:30am History of COPD chronic February 3:30am [facility] Work Phone: [phone] Evaluation note* Diagnosis Onset Date Resolution Status [...] 3:30am History of COPD chronic February 3:30am [facility] Work Phone: 1(520) 997-170606-14-2025 Discharge summary Author Wilfred Bryan [facility] Note Date/Time February 15, 2025 11:1 1am [facility] Medical Records Department [address] [place] [address] Emergency Department Summary 02/15/25 MR#: [id number] Acct: [id number] Name: ASHLEY GÓMEZ Rep #:[id number] : 1955 69 From: Wilfred Bryan MD [...] day. Additionally, sometimes she smokes as well. [facility] Medical History Wears dentures Wears glasses [...] none current occupational status: employed current occupation: [employer] Smoking Status: Current every day smoker tobacco [...] (Auto) 77.0 H Lymph % (Auto) 19.2 Cobb % (Auto) 1.9 Eos % (Auto) 0.7 [...] 09:25 IMPRESSION: No acute process Reading [facility] Management Discussion w/another healthcare provider: [...] DO [Primary Care Provider] - Print Language: Ugandan What to do if you have Problems For any increased pain, shortness of breath, bleeding, nausea or vomiting, chestpain, or any unexpected problems, contact your Primary Care Provider. Call [facility] ([phone]) or report to the closest Emergency Room. Call 911 if necessary. 02/15/25 1111 <Electronically signed by Wilfred Bryan MD> Cosigner Signature (if applicable): CC: Dr. Danish Davila, DO ~ Signed [facility] Work Phone: 1(765) 896-725006-14-2025 Discharge summary [facility] Medical Records Department [address] [place] [address] Emergency Department Summary 02/15/25 MR#: [id number] Acct: [id number] Name: ASHLEY GÓMZE Rep #:[id number] : 1955 69 From: Wilfred Bryan MD [...] day. Additionally, sometimes she smokes as well. [facility] Medical History Wears dentures Wears glasses [...] none current occupational status: employed current occupation: [employer] Smoking Status: Current every day smoker tobacco [...] (Auto) 77.0 H Lymph % (Auto) 19.2 Cobb % (Auto) 1.9 Eos % (Auto) 0.7 [...] IMPRESSION: No acute process Reading Location: [facility] Management Discussion w/another healthcare provider: Hospitalist [...] DO [Primary Care Provider] - Print Language: Ugandan What to do if you have Problems For any increased pain, shortness of breath, bleeding, nausea or vomiting, chestpain, or any unexpected problems, contact your Primary Care Provider. Call [facility] ([phone]) or report tothe closest Emergency Room. Call 911 if necessary. 02/15/25 1111 Cosigner Signature (if applicable): CC: Dr. Danish Davila DO ~ Signed [facility]06-14-2025 Radiology Diagnostic study note [facility] Imaging Services [address] [place], [place] [address] Chest 1 View (Portable) MR#: [id number] Acct: [id number] Name: ASHLEY GÓMEZ Rep #: [id number] : 1955 F 69 From: Pet er Peer PCP: Dr. Danish Davila DO Status: REG ER Study:Chest 1 View (Portable) Date of Exam: 02/15/25 Exam# [id number] Ordering Dr: Wilfred Bryan MD PROCEDURE: CHEST 1 VIEW (PORTABLE) 02/15/2025 REASON FOR EXAM: SHORTNESS OF BREATH TECHNIQUE: Frontal view of the chest. FINDINGS: Hardware: None Heart: Normal size Lungs: Clear Bones: No aggressive Other: RAD/Chest 1 View (Portable) IMPRESSION: No acute process Reading Location: [facility] CC: Dr. Wilfred Bryan MD; Dr. Dainsh Davila DO ~ [place] Nurse: Signed [facility]06-10-2025 Telephone encounter Note* Telephone Encounter - Mia Alvarez MA - 02/11/2025 9:02 AM EDT Patient advised and voiced understanding. [facility] HospitalUtezwx63-27-8728 Miscellaneous Notes* Telephone Encounter - Mia Alvarez [...] accepted: Orders * Telephone Encounter - Dory Dmuont - 02/10/2025 3:40 PM EDT Message released [...] Please advise documented in this [facility]06-09-2025 Telephone encounter Note* Telephone Encounter - Mia Alvarez MA - 02/10/2025 5:42 PM EDT Called patient to relay provider message left voicemail to call office back. Mychart message sent to patient. Please relay message to patient. [facility] HospitalKlbhmq42-81-8041 Miscellaneous Notes* Telephone Encounter - Mia Alvarez [...] Please advise documented in this [facility]06-09-2025 Note* Addendum Note - Juju Patton MA - 02/10/2025 3:52 PM EDTAddended by: JUJU PATTON on: 02/10/2025 03:52 PM Modules accepted: Orders [facility] HospitalQcngzg67-21-9444 Note* Addendum Note - Juju Patton MA - 02/10/2025 3:52 PM EDTAddended by: JUJU PATTON on: 02/10/2025 03:52 PM Modules accepted: Orders [facility] HospitalXtjnuj42-73-0954 Note* Addendum Note - Juju Patton MA - 02/10/2025 3:52 PM EDTAddended by: JUJU PATTON on: 02/10/2025 03:52 PM Modules accepted: Orders [facility] HospitalNwaogb86-08-4701 Note* Addendum Note - Juju Patton MA - 02/10/2025 3:52 PM EDTAddended by: JUJU PATTON on: 02/10/2025 03:52 PM Modules accepted: Orders [facility] HospitalNmwmja14-06-9750 Note* Addendum Note - Juju Patton MA - 02/10/2025 3:52 PM EDTAddended by: JUJU PATTON on: 02/10/2025 03:52 PM Modules accepted: Orders [facility] HospitalJfblog34-98-4467 Telephone encounter Note* Telephone Encounter - Dory [...] a new script sent in. Please advise [facility] HospitalZetyib23-74-5787 Telephone encounter Note* Telephone Encounter - Juju Patton MA - 02/10/2025 10:47 AM EDT Recent Visits Date Type Provider Dept 11/12/24 Office Visit Siomara Estrada PA-C [facility] 02/22/24 Office Visit Gasper Nelson DO [facility] Showing recent visits within past 365 [...] labs completed in chart? N/A [facility] HospitalSuraxe70-14-1687 Miscellaneous Notes* Telephone Encounter - Juju Patton MA - 02/10/2025 10:47 AM EDT Recent Visits Date Type Provider Dept 11/12/24 Office Visit Siomara Estrada PA-C [facility] 02/22/24 Office Visit Gasper Nelson DO [facility] Showing recent visits within past 365 [...] chart? N/A documented in this [facility]04-11-2025 Telephone encounter Note* Telephone Encounter - Sara Munoz LPN - 12/13/2024 8:24 AM EDT Recent Visits Date Type Provider Dept 11/12/24 Office Visit Siomara Estrada PA-C [facility] 02/22/24 Office Visit Gasper Nelson DO [facility] Showing recent visits within past 365 [...] 01/13/2023 NONHDLCHOLES 174 (H) 01/13/2023 [facility] HospitalPkksfj09-30-6493 Miscellaneous Notes* Telephone Encounter - Sara Munoz LPN - 12/13/2024 8:24 AM EDT Recent Visits Date Type Provider Dept 11/12/24 Office Visit Siomara Estrada PA-C [facility] 02/22/24 Office Visit Gasper Nelson DO [facility] Showing recent visits within past 365 [...] (H) 01/13/2023 documented in this [facility]03-31-2025 NoteOutreach to patient to provide information on how to enroll in silver sneakers and she requested refill of Trazadone for sleep issues last filled in 06/28 for 90 days, last OV 11/12/24[facility]03-31-2025 Telephone encounter Note* Telephone Encounter - Brissa Warner RN - 12/02/2024 1:06 PM EDT Outreach to patient to provide information on how to enroll in silver sneakers and she requested refill of Trazadone for sleep issues last filled in 06/28 for 90 days, last OV 11/12/24 [facility] HospitalBpxyfm57-39-3543 Miscellaneous Notes* Telephone Encounter - Brissa Warner RN - 12/02/2024 1:06 PM EDT Outreach to patient to provide information on how to enroll in silver sneakers and she requested refill of Trazadone for sleep issues last filled in 06/28 for 90 days, last OV 11/12/24 documented in this [facility]03-11-2025 Evaluation + Plan note* Assessment & [...] levels have been adequately controlled [facility] HospitalVywbvy08-70-0609 Miscellaneous Notes* Assessment & Plan Note - [...] strongly encouraged smoking cessation. documented in this encounterSSelect Medical TriHealth Rehabilitation HospitalKnmnyo95-23-2728 Evaluation + Plan note* Assessment & Plan Note - Siomara Estrada PA-C - 11/12/2024 9:12 AM EDTAssociated Problem(s): GERD (gastroesophageal reflux disease) - Chronic stable she will continue on esomeprazole 40 mg daily. [facility] HospitalAemrmx15-14-7861 Evaluation + Plan note* Assessment & Plan [...] congestion strongly encouraged smoking cessation. [facility] HospitalWolpjj13-31-7311 History of Present illness Narrative* Siomara Estrada PA-C - 11/12/2024 8:40 AM EDT Images from the original note were not included. [facility] - [address] [facility] [address] Dept: [phone] Dept Chief Complaint: Ashley Gmóez is an 69 y.o. female here for [...] this issue and continues to work at [employer]. Would like to get involved with [employer]. 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 A preventive dental visit is recommended every 6 months. Try to get at least 150 minutes of exercise per week or 10,000 steps per day on a pedometer. You need 1200-1500mg of calcium and 8070-7634 international units of vitamin D per day. [...] a motorcycle documented in this [facility]02-27-2025 History of Present illness Narrative* Gasper Serrano Puneetsam, - 10/31/2024 12:00 PM EST Images from the original note were not included. [facility] - [address] [facility] [address] Dept: [phone] Dept Loc: [phone] Patient was identified and seen today via [...] stated that they are currently in the [facility]. If the patient is a minor, [...] 12:20 PM documented in this [facility]02-27-2025 Telephone encounter Note* Telephone Encounter - [...] not coughing Protocols used: Cough - Acute Zvr-Pzfmpjgoxw-QHRBC-AH [facility] HospitalWbyzfl64-27-9985 Miscellaneous Notes* Telephone Encounter - Michell Chin [...] not coughing Protocols used: Cough - Acute Rvn-Hvqsvjsifs-FSPGL-AH documented in this [facility]01-28-2025 Telephone encounter Note* Telephone Encounter - Neeta Villeda RN - 10/01/2024 1:57 PM EST Received signed receipt of certified letter sent to patient. Scanned to media in chart. [facility] HospitalUohiew40-63-4121 Miscellaneous Notes* Telephone Encounter - Neeta Villeda RN - 10/01/2024 1:57 PM EST Received signed receipt of certified letter sent to patient. Scanned to media in chart. * Telephone Encounter - Kianna Stevenson - 06/28/2024 8:47 AM EDT No auth needed. Faxed orders to [facility]-Scheduling for pt to be sched - [...] and assist patient with scheduling. She prefers [place] for imaging location and is available on [...] the recommended 3-month follow- up CT chest. [facility] scheduling and provider office have made multiple attempts to contact patient to assist with scheduling imaging. Navigator mailed patient lung screening follow-up reminder letter and lung nodule patient information. If patient does not call in to schedule imaging, navigator will plan to send certified letter. documented in this [facility]01-27-2025 Telephone encounter Note* Telephone Encounter - Mia Alvarez MA - 09/30/2024 11:56 AM EST Recent Visits Date Type Provider Dept 02/22/24 Office Visit Gasper Nelson DO [facility] Showing recent visits within past 365 days and meeting all other requirements Future Appointments Date Type Provider Dept 11/12/24 Appointment Gasper Nelson DO [facility] Showing future appointments within next 90 [...] recent labs completed in chart? N/A None [facility] HospitalOkvftt94-24-3239 Miscellaneous Notes* Telephone Encounter - Mia Alvarez MA - 09/30/2024 11:56 AM EST Recent Visits Date Type Provider Dept 02/22/24 Office Visit Gasper Nelson DO [facility] Showing recent visits within past 365 days and meeting all other requirements Future Appointments Date Type Provider Dept 11/12/24 Appointment Gasper Nelson DO [facility] Showing future appointments within next 90 [...] N/A None documented in this [facility]01-13-2025 Telephone encounter Note* Telephone Encounter - Sara Munoz LPN - 09/16/2024 2:12 PM EST Recent Visits Date Type Provider Dept 02/22/24 Office Visit Gasper Serrano DO [place] [facility] Showing recent visits within past 365 days and meeting all other requirements Future Appointments Date Type Provider Dept 09/30/24 Appointment Gasper NelsonDO [facility] Showing future appointments within next 90 [...] 01/13/2023 NONHDLCHOLES 174 (H) 01/13/2023 [facility] HospitalWnsblc60-47-4115 Miscellaneous Notes* Telephone Encounter - Sara Munoz LPN - 09/16/2024 2:12 PM EST Recent Visits Date Type Provider Dept 02/22/24 Office Visit Gasper Maggie DO [place] [facility] Showing recent visits within past 365 days and meeting all other requirements Future Appointments Date Type Provider Dept 09/30/24 Appointment Gasper Maggie DO [place] [facility] Showing future appointments within next 90 [...] (H) 01/13/2023 documented in this [facility]11-20-2024 Telephone encounter Note* Telephone Encounter - [...] 01/13/2023 NONHDLCHOLES 174 (H) 01/13/2023 [facility] HospitalQhwvql67-61-0261 Miscellaneous Notes* Telephone Encounter - Mia Alvarez MA - 07/24/2024 11:42 AM EST Recent Visits Date Type Provider Dept 02/22/24 Office Visit Gasper Serrano [place], DO [facility] 07/31/23 Office Visit Gasper Serrano [place] DO [facility] Showing recent visits within past 365 days and meeting all other requirements Future Appointments Date Type Provider Dept 08/21/24 Appointment Gasper Nelson DO [facility] Showing future appointments within next 90 [...] (H) 01/13/2023 documented in this [facility]10-25-2024 Telephone encounter Note* Telephone Encounter - [...] to get her scheduled. Thank you Contact [place] [id number] Miscellaneous Notes* Telephone Encounter - Helen Jennings [...] scheduled. Thank you Contact documented in this encounterSSelect Medical TriHealth Rehabilitation HospitalTofoxu64-08-5632 Telephone encounter Note* Telephone Encounter - Kianna Stevenson - 06/28/2024 8:47 AM EDT No auth needed. Faxed orders to [facility]-Scheduling for pt to be sched - [facility] will sched/advise pt. My chart mess sent to patient with info to sched. [place] [id number] Miscellaneous Notes* Telephone Encounter - Kianna Stevenson [...] and assist patient with scheduling. She prefers [place] for imaging location and is available on [...] 3-month follow- up CT chest. [facility] central scheduling and provider office have made multiple attempts to contact patient to assist with scheduling imaging. Navigator mailed patient lung screening follow-up reminder letter and lung nodule patient information. If patient does not call in to schedule imaging, navigator will plan to send certified letter. documented in this [facility]10-24-2024 Telephone encounter Note* Telephone Encounter - Marycruz Mazariegos MA - 06/27/2024 4:27 PM EDT Vincent Perez, It looks like the patient navigator has done all that she can do. So it looks like all avenues havebeen exhausted to try and reach this patient to schedule. [facility] HospitalQwpudd28-67-6216 Miscellaneous Notes* Telephone Encounter - Marycruz Mazariegos [...] and assist patient with scheduling. She prefers [place] for imaging location and is available on [...] 3-month follow- up CT chest. [facility] central scheduling and provider office have made multiple attempts to contact patient to assist with scheduling imaging. Navigator mailed patient lung screening follow-up reminder letter and lung nodule patient information. If patient does not call in to schedule imaging, navigator will plan to send certified letter. documented in this encounterSSelect Medical TriHealth Rehabilitation HospitalVpagyo29-09-7353 Telephone encounter Note* Telephone Encounter - Kianna Stevenson - 06/27/2024 2:02 PM EDT To April to follow up [facility] HospitalBheucg23-50-8557 Telephone encounter Note* Telephone Encounter - Joann Jane RCP - 06/27/2024 9:43 AM EDT Mrs. Gómez called in after receiving certified letter. She would like to return to complete the recommended lung screening 3 month follow-up imaging previously ordered by Dr. Nelson. Will send message to provider office to place new referral for imaging and assist patient with scheduling. She prefers [place] for imaging location and is available on Monday the if there are any appointments available. [facility] HospitalMpguwf26-97-9539 NotePatient still has not completed the recommended lung screening follow-up imaging. Navigator mailed certified letter, lung nodule education materials, and offered to assist with overcoming barriers to care.[facility]10-17-2024 Telephone encounter Note* Telephone Encounter - Joann Jane RCP - 06/20/2024 2:31 PM EDT Patient still has not completed the recommended lung screening follow-up imaging. Navigator mailed certified letter, lung nodule education materials, and offered to assist with overcoming barriers to care. [facility] HospitalDwqlla64-25-7602 Miscellaneous Notes* Telephone Encounter - Joann Jane RCP - 06/20/2024 2:31 PM EDT Patient still has not completed the recommended lung screening follow-up imaging. Navigator mailed certified letter, lung nodule education materials, and offered to assist with overcoming barriers to care. * Telephone Encounter - Joann Jaen RCP - 04/23/2024 1:58 PM EDT Ms. Gómez had a Lung RADS [address] scan on 12/18/2023. Her primary care provider placed a referral for the recommended 3-month follow- up CT chest. [facility] central scheduling and provider office have made multiple attempts to contact patient to assist with scheduling imaging. Navigator mailed patient lung screening follow-up reminder letter and lung nodule patient information. If patient does not call in to schedule imaging, navigator will plan to send certified letter. documented in this encounterSSelect Medical TriHealth Rehabilitation HospitalCpgbge07-19-6965 Telephone encounter Note* Telephone Encounter - Sara Munoz LPN - 06/11/2024 5:05 PM EDT RX loaded Next ov 08/21/24 [place] [id number] Miscellaneous Notes* Telephone Encounter - Sara Munoz [...] doctor or facility: N/A Ordering provider: Dr. Nelosn Date of last office visit: 02/22/24 Date of next office visit: 08/21/24 Date of last refill: (see medication tab): 04/17/24 Updated/Validated preferred pharmacy: Yes Patient instructed to contact the pharmacy prior to picking up the medication: Yes documented in this [facility]10-08-2024 Telephone encounter Note* Telephone Encounter - [...] picking up the medication: Yes [facility] HospitalGwtmzp24-03-6834 [facility] Medical Records Department [address] [place] [address] History Physical Exam 04/29/24 0756 MR#: [id number] Acct: [id number] Name: ASHLEY GÓMEZ Rep #: [id number] : 1955 68 From: Slim Friend DO PCP: Dr. Danish Davila, DO Status:[facility] Location: [place] [address] HPI - General General Date of Admission: [...] none current occupational status: employed current occupation: [employer] Smoking Status: Former smoker Tobacco: How many [...] Dr. Danish Davila, DO; Slim Weiss DO SignedWFisher-Titus [facility]08-20-2024 NoteMs. Gómez had a Lung RADS [address] scan on 12/18/2023. Her primary care provider placed a referral for the recommended 3-month follow-up CT chest. [facility] central scheduling and provider office have made multiple attempts to contact patient to assist with scheduling imaging. Navigator mailed patient lung screening follow-up reminder letter and lung nodule patient information. If patient does not call in to schedule imaging, navigator will plan to send certified letter.[facility]08-20-2024 Telephone encounter Note* Telephone Encounter - Joann Jane RCP - 04/23/2024 1:58 PM EDT Ms. Gómez had a Lung RADS [address] scan on 12/18/2023. Her primary care provider placed a referral for the recommended 3-month follow- up CT chest. [facility] central scheduling and provider office have made multiple attempts to contact patient to assist with scheduling imaging. Navigator mailed patient lung screening follow-up reminder letter and lung nodule patient information. If patient does not call in to schedule imaging, navigator will plan to send certified letter. [facility] HospitalSijziv58-97-4996 Telephone encounter Note* Telephone Encounter - Marycruz Mazariegos MA - 04/17/2024 7:37 AM EDT Recent Visits Date Type Provider Dept 02/22/24 Office Visit Gasper Nelson DO [facility] 07/31/23 Office Visit Gasper Nelson DO [facility] Showing recent visits within past 365 [...] any other provider? No None [facility] HospitalYfcddf63-22-9620 Miscellaneous Notes* Telephone Encounter - Marycruz Mazariegos MA - 04/17/2024 7:37 AM EDT Recent Visits Date Type Provider Dept 02/22/24 Office Visit Gasper Maggie [place], DO [facility] 07/31/23 Office Visit Gasper Nelson DO [facility] Showing recent visits within past 365 [...] other provider? No None documented in this encounterSSelect Medical TriHealth Rehabilitation HospitalEctwyk49-65-6941 Telephone encounter Note* Telephone Encounter - Farida Mary - 04/12/2024 7:31 AM EDT Orders cancelled [facility] HospitalJitkyv99-57-6226 Miscellaneous Notes* Telephone Encounter - Farida Mary - 04/12/2024 7:31 AM EDT Orders cancelled * Telephone Encounter - Rosa Rodas - 04/11/2024 4:07 PM EDT We have been unable to reach your patient to schedule their testing. Test Name: CT lung screening follow up, PFT and Mammo 1st Attempt: 03/30/24 2nd Attempt: 04/11/24 Thanks, [facility] Scheduling documented in this [facility]08-08-2024 Telephone encounter Note* Telephone Encounter - Rosa Rodas - 04/11/2024 4:07 PM EDT We have been unable to reach your patient to schedule their testing. Test Name: CT lung screening follow up, PFT and Mammo 1st Attempt: 03/30/24 2nd Attempt: 04/11/24 Thanks, [facility] Scheduling [facility] HospitalGpqqnq34-87-8232 Miscellaneous Notes* Telephone Encounter - Rosa Rodas - 04/11/2024 4:07 PM EDT We have been unable to reach your patient to schedule their testing. Test Name: CT lung screening follow up, PFT and Mammo 1st Attempt: 03/30/24 2nd Attempt: 04/11/24 Thanks, [facility] Scheduling documented in this [facility]06-20-2024 Telephone encounter Note* Telephone Encounter - Kianna Stevenson - 02/22/2024 2:26 PM EDT Referral / orders pended for dx and doctor's signature [facility] HospitalSwkbhf47-36-5125 Miscellaneous Notes* Telephone Encounter - Kianna Stevenson - 02/22/2024 2:26 PM EDT Referral / orders pended for dx and doctor's signature documented in this encounterSSelect Medical TriHealth Rehabilitation HospitalNjtbtg34-56-0294 History of Present illness Narrative* Gasper Serrano Miguelarleen, - 02/22/2024 1:00 PM EDT Images from the original note were not included. [facility] [address] [facility] [address] [address] [facility] [address] Visit type: Established Patient [...] capsule TAKE 1 CAPSULE EVERY MORNING BEFORE [id number] capsule 1 [DISCONTINUED] simvastatin (Zocor) 80 MG [...] changes, or axillary adenopathy documented in this encounterSSelect Medical TriHealth Rehabilitation HospitalUrnxxk06-37-0417 Telephone encounter Note* Telephone Encounter - Fawn Hassan MA - 02/09/2024 9:30 AM EDT Pt scheduled with Dr Nelson 02/22/24 [facility] HospitalDyykew62-78-0405 Miscellaneous Notes* Telephone Encounter - Fawn Hassan [...] Name of caller: Isauro Contact phone number: [phone] Relationship to Patient: Patient Provider: Dr. Nelson Practice: [facility] Chief Complaint/Reason for Call: Pt Pt had to reschedule appointment. Please contact pt if appointment is not soon enough, pt is concerned FYI Best time of day caller can be reached: Any Patient advised that office/PCP has 24-48 business hours to return their call: No documented in this [facility]06-03-2024 Telephone encounter Note* Telephone Encounter - Fawn Hassan MA - 02/05/2024 11:02 AM EDT Left message for patient to return call to the office to get scheduled please schedule patient either February [address] Argentina dawson. [facility] HospitalXuhimd14-55-9227 Miscellaneous Notes* Telephone Encounter - Fawn Hassan MA - 02/05/2024 11:02 AM EDT Left message for patient to return call to the office to get scheduled please schedule patient either February [address] Argentina dawson. * Telephone Encounter - Ramila Lee - 02/05/2024 9:02 AM EDT Name of caller: Isauro Contact phone number: [phone] Relationship to Patient: Patient Provider: Dr. Nelson Practice: [facility] Chief Complaint/Reason for Call: Pt Pt had to reschedule appointment. Please contact pt if appointment is not soon enough, pt is concerned FYI Best time of day caller can be reached: Any Patient advised that office/PCP has 24-48 business hours to return their call: No documented in this [place] [id number] Telephone encounter Note* Telephone Encounter - Ramila Lee - 02/05/2024 9:02 AM EDT Name of caller: Isauro Contact phone number: [phone] Relationship to Patient: Patient Provider: Dr. Nelson Practice: [facility] Chief Complaint/Reason for Call: Pt Pt had to reschedule appointment. Please contact pt if appointment is not soon enough, pt is concerned FYI Best time of day caller can be reached: Any Patient advised that office/PCP has 24-48 business hours to return their call: No [facility] HospitalFotuqy69-27-3873 Telephone encounter Note* Telephone Encounter - Juju Patton MA - 01/02/2024 10:56 AM EDT Pharmacy updated. [facility] HospitalVllyoc72-18-9509 Miscellaneous Notes* Telephone Encounter - Juju Patton MA - 01/02/2024 10:56 AM EDT Pharmacy updated. * Telephone Encounter - Mary Zavaleta - 01/02/2024 10:46 AM EDT Name of caller: Isauro Contact phone number: [phone] Relationship to Patient: patient Provider: Argentina Practice: [facility] Chief Complaint/Reason for Call: Pt called to report that her antibiotic and Prednisone were not sent to her local [facility] as requested - they were accidentally sent to [facility] by mistake. Please send to [facility] on [address] in [place] listed in her chart instead. Please call once has been sent over. Best time of day caller can be reached: Any Patient advised that office/PCP has 24-48 business hours to return their call: No documented in this encounterSC[place] [id number] Telephone encounter Note* Telephone Encounter - Mary Zavaleta - 01/02/2024 10:46 AM EDT Name of caller: Isauro Contact phone number: [phone] Relationship to Patient: patient Provider: Argentina Practice: [facility] Chief Complaint/Reason for Call: Pt called to report that her antibiotic and Prednisone were not sent to her local [facility] as requested - they were accidentally sent to [facility] pharmacy by mistake. Please send to [facility] on [address] in [place] listed in her chart instead. Please call once has been sent over. Best time of day caller can be reached: Any Patient advised that office/PCP has 24-48 business hours to return their call: No [place] [id number] Telephone encounter Note* Telephone Encounter - Nelly Villa LPN - 12/22/2023 11:56 AM EDT LM - called to relay message to pt that she can schedule out into February [address]Fxcfzf91-23-5324 Miscellaneous Notes* Telephone Encounter - Nelly Villa LPN - 12/22/2023 11:56 AM EDT LM - called to relay message to pt that she can schedule out into February * Telephone Encounter - Agnes Cedillo MA - 12/22/2023 11:20 AM EDT noted * Telephone Encounter - Nigel Caicedo - 12/22/2023 8:31 AM EDT Name of caller: Isauro Contact phone number: [phone] (work number) Relationship to Patient: patient Provider: Argentina Practice: [facility] Chief Complaint/Reason for Call: Patient calling [...] number above, which is the number for [employer] where she works. Patient advised that office/PCP has 24-48 business hours to return their call: Yes documented in this [facility]04-19-2024 Telephone encounter Note* Telephone Encounter - Agnes Cedillo MA - 12/22/2023 11:20 AM EDT noted [place] [id number] Telephone encounter Note* Telephone Encounter - Nigel Caicedo - 12/22/2023 8:31 AM EDT Name of caller: Isauro Contact phone number: [phone] (work number) Relationship to Patient: patient Provider: Argentina Practice: [facility] Chief Complaint/Reason for Call: Patient calling [...] number above, which is the number for [employer] where she works. Patient advised that office/PCP has 24-48 business hours to return their call: Yes [place] [id number] Telephone encounter Note* Telephone Encounter - Julian Dan RN - 12/21/2023 5:49 PM EDT duplicate [facility] HospitalTtdsbi26-04-3893 Miscellaneous Notes* Telephone Encounter - Julian Dan RN - 12/21/2023 5:49 PM EDT duplicate documented in this encounterSSelect [facility] Rehabilitation HospitalQvrnps35-52-0650 Telephone encounter Note* Telephone Encounter - Heather [...] prior to picking up the medication: Yes [place] [id number] Miscellaneous Notes* Telephone Encounter - Heather Jean [...] medication: Yes documented in this [facility]04-15-2024 Telephone encounter Note* Telephone Encounter - Agnes Cedillo MA - 12/18/2023 10:22 AM EDT Recent Visits Date Type Provider Dept 07/31/23 Office Visit Gasper Nelson DO [facility] 01/13/23 Office Visit Gasper Nelson DO [facility] Showing recent visits within past 365 days and meeting all other requirements Future Appointments Date Type Provider Dept 02/05/24 Appointment DO Gillian Bai [facility] Showing future appointments within next 90 [...] labs completed in chart? N/A [facility] HospitalDgyphi29-29-4988 Miscellaneous Notes* Telephone Encounter - Agnes Cedillo MA - 12/18/2023 10:22 AM EDT Recent Visits Date Type Provider Dept 07/31/23 Office Visit Gasper Nelson DO [facility] 01/13/23 Office Visit Gasper Nelson DO [facility] [place] [facility] Showing recent visits within past 365 days and meeting all other requirements Future Appointments Date Type Provider Dept 02/05/24 Appointment Gasper Nelson DO [facility] Showing future appointments within next 90 [...] chart? N/A documented in this [facility]11-28-2023 Telephone encounter Note* Telephone Encounter - Kianna Silvestree - 08/01/2023 8:22 AM EST Orders pended for doctor's signature [facility] HospitalNsdhci88-94-0616 Miscellaneous Notes* Telephone Encounter - Kianna Silvestree - 08/01/2023 8:22 AM EST Orders pended for doctor's signature * Telephone Encounter - Kianna Stevenson - 08/01/2023 8:15 AM EST ----- Message from Gasper Nelson DO sent at 07/31/2023 4:06 PM EST ----- Schedule LDCT for pt to be done in 11/2023 documented in this encounterSSelect Medical TriHealth Rehabilitation HospitalXdmurb35-97-3756 Telephone encounter Note* Telephone Encounter - Kianna Silvestree - 08/01/2023 8:15 AM EST ----- Message from Gasper Nelson DO sent at 07/31/2023 4:06 PM EST ----- Schedule LDCT for pt to be done in 11/2023 [place] [id number] History of Present illness Narrative* Gasper Nelson DO - 07/31/2023 3:30 PM EST Images from the original note were not included. [facility] [address] [facility] [address] Visit type: Established Patient [...] work a fair number hours at the [employer] in [place] doing various jobs. Review of Systems denies [...] without edema documented in this [facility]11-27-2023 History of Present illness Narrative* Gasper Nelson DO - 07/31/2023 3:30 PM EST Images from the original note were not included. [facility] [address] [place] [address] [address] [facility] [address] Visit type: Established Patient [...] work a fair number hours at the [employer] in [place] doing various jobs. Review of Systems denies [...] List Diagnosis COPD (chronic obstructive pulmonary disease) ([facility]) Osteopenia GERD (gastroesophageal reflux disease) Social History [...] without edema documented in this [facility]11-27-2023 Miscellaneous Notes* Addendum Note - Rosalind Quintero - 07/31/2023 3:30 PM ESTAddended by: ROSALIND QUINTERO on: 12/18/2023 08:32 AM Modules accepted: Orders documented in this [facility]11-27-2023 Note* Addendum Note - Rosalind Quintero - 07/31/2023 3:30 PM ESTAddended by: ROSALIND QUINTERO on: 12/18/2023 08:32 AM Modules accepted: Orders [place] [id number] Telephone encounter Note* Telephone Encounter - Sara Munoz LPN - 03/14/2023 11:39 AM EDT Signed Handicap placard signed and mailed to patient per their request. [facility] HospitalContbm02-73-1980 Miscellaneous Notes* Telephone Encounter - Sara Munoz LPN - 03/14/2023 11:39 AM EDT Signed Handicap placard signed and mailed to patient per their request. * Telephone Encounter - Sara Munoz LPN - 03/14/2023 9:13 AM EDT Rx loaded * Telephone Encounter - Shaista Gramajo - 03/14/2023 9:07 AM EDT Name of caller: Isauro Contact phone number: [phone] Relationship to Patient: patient Provider: Argentina Practice: [...] return their call: Yes documented in this encounterSSelect Medical TriHealth Rehabilitation HospitalYwkkyc92-35-2345 Telephone encounter Note* Telephone Encounter - Sara Munoz LPN - 03/14/2023 9:13 AM EDT Rx loaded [facility] HospitalEbxlvc62-57-4289 Telephone encounter Note* Telephone Encounter - Shaista Gramajo - 03/14/2023 9:07 AM EDT Name of caller: Isauro Contact phone number: [phone] Relationship to Patient: patient Provider: [place] Practice: [...] to return their call: Yes [facility] HospitalOevnwz56-07-4923 Telephone encounter Note* Telephone Encounter - Kianna Stevenson - 03/02/2023 11:20 AM EDT Orders closed [facility] HospitalZbhlge47-10-6369 Miscellaneous Notes* Telephone Encounter - Kianna Stevenson [...] on order. Thank you documented in this encounterSSelect Medical TriHealth Rehabilitation HospitalZidzcj70-56-5635 Telephone encounter Note* Telephone Encounter - Sara [...] stated to get a CT. [facility] HospitalHrfeze03-15-3817 Telephone encounter Note* Telephone Encounter - Sara Munoz LPN - 02/28/2023 4:16 PM EDT Placed call to patient to discuss provider questions of: Call the patient and specifically ask her how many cigarettes she smokes on the average per day andhow long she has been doing it. Message left on voicemail to return call. [facility] HospitalAcioln99-19-3360 Miscellaneous Notes* Telephone Encounter - Sara Munoz [...] on order. Thank you documented in this encounterSSelect Medical TriHealth Rehabilitation HospitalKcpcly48-24-7792 Telephone encounter Note* Telephone Encounter - Kianna Stevenson - 02/28/2023 9:33 AM EDT Pt doesn't fit criteria for a CT-Lung screen. Pt needs to have a 20 year smoking history of 1-pack a day or 15 year history with 2-pack a day. Can orders be cancelled? [facility] HospitalAkvcjg78-93-8658 Telephone encounter Note* Telephone Encounter - Margarita Jones - 02/27/2023 1:33 PM EDT Patient called in and scheduled her CT Lung screening. The diagnosis code of F17.200 failed for Medical Necessity. Please correct diagnosis code on order. Thank you [facility] HospitalQlmokl32-69-9424 Miscellaneous Notes* Telephone Encounter - Margarita Robert - 02/27/2023 1:33 PM EDT Patient called in and scheduled her CT Lung screening. The diagnosis code of F17.200 failed for Medical Necessity. Please correct diagnosis code on order. Thank you documented in this [facility]05-12-2023 Telephone encounter Note* Telephone Encounter - Kianna Stevenson - 01/13/2023 10:29 AM EDT Orders pended for doctor's signature [facility] HospitalAqxrtk16-80-1272 Miscellaneous Notes* Telephone Encounter - Kianna Stevenson - 01/13/2023 10:29 AM EDT Orders pended for doctor's signature documented in this [facility]05-12-2023 History of Present illness Narrative* Gasper Nelson DO - 01/13/2023 9:30 AM EDT Images from the original note were not included. [facility] [address] [place] [address] Visit type: Established Patient Reason for Visit: [...] and knees. documented in this [facility]03-13-2023 History of Present illness Narrative* Siomara Estrada PA-C - 11/14/2022 11:40 AM EDT Images from the original note were not included. [address] [address] Dept: [phone] Dept Loc: [phone] Visit type: Established Patient Reason for Visit: Cough (X Monday ) and Sore Throat Assessment and Plan 1. COPD with acute exacerbation (CMS/HCC) ([facility]) Comments: didn't want to take full [...] 76 Cancer Father 76 Unknown source Other ([id number]) Mother 77 Coalminer long Cancer Sister 73 [...] prior to signing but minor errors in pharmacy laboratory technician may have occurred. documented in this [facility]03-13-2023 Telephone encounter Note* Telephone Encounter - Sade Esteban RN - 11/14/2022 9:51 AM EDT Triage message reviewed with clinical staff. Patient appointment confirmed. Siomara will assess at appointment visit. [facility] HospitalPfsbci43-17-6642 Miscellaneous Notes* Telephone Encounter - Sade Esteban [...] (e.g., travel history, exposures) no Protocols used: [id number]-[id number] documented in this [facility]03-13-2023 Telephone encounter Note* Telephone Encounter - [...] (e.g., travel history, exposures) no Protocols used: Whlrc-[id number] [facility] HospitalQggdvp94-17-5598 Telephone encounter Note* Telephone Encounter - Sara Munoz LPN - 10/20/2022 4:35 PM EST X-ray faxed to [facility] per patient request. Also called patient and let her know it was faxed. [facility] HospitalYwmhmd73-25-8684 Miscellaneous Notes* Telephone Encounter - Sara Munoz LPN - 10/20/2022 4:35 PM EST X-ray faxed to [facility] per patient request. Also called patient and let her know it was faxed. * Telephone Encounter - Shereen Stevens - 10/20/2022 3:06 PM EST Name of caller: Isauro Contact phone number: [phone] Relationship to Patient: patient Provider: Practice: [facility] Chief Complaint/Reason for Call: Patient calling and states [facility] did not get her ordersfor the x-ray. Patient requesting it be re sent. Patient did not have a fax number. Best time of day caller can be reached: any Patient advised that office/PCP has 24-48 business hours to return their call: no documented in this encounterS63 Fuller StreetFqmnxt55-21-0351 Telephone encounter Note* Telephone Encounter - Shereen Stevens - 10/20/2022 3:06 PM EST Name of caller: Isauro Contact phone number: [phone] Relationship to Patient: patient Provider: Practice: [facility] Chief Complaint/Reason for Call: Patient calling and states [facility] did not get her ordersfor the x-ray. Patient requesting it be re sent. Patient did not have a fax number. Best time of day caller can be reached: any Patient advised that office/PCP has 24-48 business hours to return their call: no [facility] HospitalKcsmgl06-10-6687 Telephone encounter Note* Telephone Encounter - Danish Davila DO - 10/18/2022 5:29 PM EST I called this patient regarding her chest x-ray. She states she went to [facility] but they did not have the order. According to the record the order was faxed. Patient will call the hospital and see if now have the order. [facility] HospitalHkewsl72-67-6452 Miscellaneous Notes* Telephone Encounter - Danish Davila DO - 10/18/2022 5:29 PM EST I called this patient regarding her chest x-ray. She states she went to [facility] but they did not have the order. According to the record the order was faxed. Patient will call the hospital and see if now have the order. * Telephone Encounter - Sade Esteban RN - 10/17/2022 12:06 PM EST Faxed * Telephone Encounter - Justin Hoover - 10/17/2022 12:00 PM EST Name of caller: Shayy Contact phone number: [phone] Relationship to Patient: [facility] Provider: Dr. Davila Practice: [facility] Chief Complaint/Reason for Call: Shayy states the patient is currently at [facility] trying to complete her 10/03/22 XR Chest, [...] return their call: No documented in this encounterSSelect Medical TriHealth Rehabilitation HospitalSqgjjk68-62-8872 Telephone encounter Note* Telephone Encounter - Sade Esteban RN - 10/17/2022 12:06 PM EST Faxed [facility] HospitalUulghq14-60-9129 Telephone encounter Note* Telephone Encounter - Justin Hoover - 10/17/2022 12:00 PM EST Name of caller: Shayy Contact phone number: [phone] Relationship to Patient: [facility] Provider: Dr. Davila Practice: [facility] Chief Complaint/Reason for Call: Shayy states the patient is currently at [facility] trying to complete her 10/03/22 XR Chest, [...] to return their call: No [facility] HospitalUgafyd51-42-6540 Telephone encounter Note* Telephone Encounter - Danish [...] room. She is not interested. [facility] HospitalMwljoo74-66-2409 Miscellaneous Notes* Telephone Encounter - Danish Davila [...] not interested. documented in this [facility]01-30-2023 History of Present illness Narrative* Danish Davila DO - 10/03/2022 8:30 AM EST Images from the original note were not included. [facility] [address] [id number] Chief Complaint: Ashley Gómez is an 67 [...] 20/25 20/20 documented in this [facility] HospitalDischar summary Author Wilfred Bryan [facility] Note Date/Time February 15, 2025 11:1 1am [facility] Medical Records Department [address] [place] [address] Emergency Department Summary 02/15/25 MR#: [id number] Acct: [id number] Name: ASHLEY GÓMEZ Rep #:[id number] : 1955 69 From: Wilfred Bryan MD [...] day. Additionally, sometimes she smokes as well. [facility] Medical History Wears dentures Wears glasses [...] none current occupational status: employed current occupation: [employer] Smoking Status: Current every day smoker tobacco [...] (Auto) 77.0 H Lymph % (Auto) 19.2 Cobb % (Auto) 1.9 Eos % (Auto) 0.7 [...] IMPRESSION: No acute process Reading Location: [facility] Management Discussion w/another healthcare provider: Hospitalist (Dr. Avilze) Discharge Plan Triage Chief Complaint: Shortness of [...] DO [Primary Care Provider] - Print Language: Ugandan What to do if you have Problems For any increased pain, shortness of breath, bleeding, nausea or vomiting, chestpain, or any unexpected problems, contact your Primary Care Provider. Call [facility] ([phone]) or report to the closest Emergency Room. Call 911 if necessary. 02/15/25 1111 <Electronically signed by Wilfred Bryan MD> Cosigner Signature (if applicable): CC: Dr. Danish Davila DO ~ Signed [facility] Work Phone: Discharge summary Author Bunny Avilez [facility] Note Date/Time February 17, 2025 10:5 9am [facility] Medical Records Department [address] [place] [address] Instructions for Home/Discharge Instructions 02/17/25 1052 MR#: [id number] Acct: [id number] Name: ASHLEY GÓMEZ Rep #:[id number] : 1955 69 From: Bunny Avilez DO [...] 02/17/25 1059<Electronically signed by Bunny Avilez DO>Bunny Avilze DO CC: Dr. Danish Davila DO ~ Signed [facility] Work Phone: Discharge summary Author Nicko Mane-Elizabeth [facility] Note Date/Time March 06, 2025 9:31a m [facility] Medical Records Department [address] [place] [address] Emergency Department Summary 03/06/25 MR#: [id number] Acct: [id number] Name: RICOASHLEY Rep #:[id number] : 1955 69 From: Nicko zelayaett PCP: [...] intact Psych: Cooperative, appropriate mood and affect [facility] Medical History Hypokalemia Smoker Hypoxia COPD [...] none current occupational status: employed current occupation: [employer] Smoking Status: Current every day smoker [...] (Auto) 72.4 H Lymph % (Auto) 19.6 Cobb % (Auto) 5.8 Eos % (Auto) 1.5 [...] DO [Primary Care Provider] - Print Language: Ugandan What to do if you have Problems For any increased pain, shortness of breath, bleeding, nausea or vomiting, chestpain, or any unexpected problems, contact your Primary Care Provider. Call [facility] ([phone]) or report to the closest Emergency Room. [...] was also instructed to follow-up with her air table operator. Patient was instructed to return if worse in any way. Patient understood and was agreeable with plan. All questions were answered. 03/06/25 0931<Electronically signed by Niko Castillo DO> Cosigner Signature (if applicable): cc: Dr. Gasper Nelson, ~* Signed [facility] Work Phone: evaluation note* Diagnosis Menopause Symptomatic menopausal or female climacteric states documented in this encounter [facility] Work Phone: Evaluation noteNo assessment information available [facility] Work Phone: evaluation note* Diagnosis Chronic obstructive pulmonary disease, unspecified COPD type (HCC)- Primary Hypercholesterolemia Pure hypercholesterolemia Gastroesophageal reflux disease without esophagitis Esophageal reflux Smoker Tobacco use disorder Depression, unspecified depression type [facility]* Diagnosis Smoker Tobacco use disorder [facility] in [facility]* Diagnosis Chronic obstructive pulmonary disease, unspecified COPD type (HCC)- Primary [facility] in [facility]* Diagnosis Chronic obstructive pulmonary disease, unspecified COPD type (HCC)- Primary Depression, unspecified depression type Gastroesophageal reflux disease without esophagitis Esophageal reflux Hypercholesterolemia Pure hypercholesterolemia documented in this [facility]* Diagnosis Moderate smoker (20 or less per day)- Primary Tobacco use disorder Smoker Tobacco use disorder documented in [facility]* Diagnosis Chronic obstructive pulmonary disease, unspecified COPD type (HCC)- Primary Depression, unspecified depression type Gastroesophageal reflux disease without esophagitis Esophageal reflux Hypercholesterolemia Pure hypercholesterolemia documented in this [facility]* Diagnosis Smoker Tobacco use disorder Moderate smoker (20 or less per day) Tobacco use disorder [facility] in [facility]* Diagnosis COPD with acute exacerbation (HCC) Lower resp. tract infection Other diseases of respiratory system, not elsewhere classified documented in this encounter [facility]* Diagnosis Chronic obstructive pulmonary disease, unspecified COPD type (HCC)- Primary Abnormal CT scan of lung Hypercholesterolemia Pure hypercholesterolemia Colon cancer screening Special screening for malignant neoplasms, colon Breast cancer screening by mammogram Depression, unspecified depression type Gastroesophageal reflux disease without esophagitis Esophageal reflux Ex-smoker for less than 1 year documented in this encounter [facility]* Diagnosis Abnormal CT scan of lung- Primary Colon cancer screening Special screening for malignant neoplasms, colon Smoker Tobacco use disorder Family history of colon cancer Family history of malignant neoplasm of gastrointestinal tract documented in this encounter [facility]* Diagnosis Abnormal CT scan of lung Smoker Tobacco use disorder documented in this encounter [facility]* Diagnosis Medicare annual wellness visit, subsequent- Primary Cough, unspecified type Chronic obstructive pulmonary disease, unspecified COPD type (HCC) Anxiety Anxiety state, unspecified Depression, unspecified depression type Hypercholesterolemia Pure hypercholesterolemia Mammogram declined Colonoscopy refused documented in this encounter [facility]* Diagnosis COPD with acute exacerbation (CMS/HCC) (HCC)- Primary Lower resp. tract infection Other diseases of respiratory system, not elsewhere classified Smoking Tobacco use disorder documented in this encounter [facility]* Diagnosis Chronic obstructive pulmonary disease with acute exacerbation (HCC)- Primary Influenza Influenza with other respiratory manifestations documented in this encounter [facility]* Diagnosis Routine general medical examination at health care facility- Primary Routine general medical examination at a health care facility Encounter for screening mammogram for malignant neoplasm of breast Hypercholesterolemia Pure hypercholesterolemia Chronic obstructive pulmonary disease with acute exacerbation (HCC) Gastroesophageal reflux disease without esophagitis Esophageal reflux documented in this encounter [facility]* Diagnosis Routine general medical examination at health care facility- Primary Routine general medical examination at a health care facility Encounter for screening mammogram for malignant neoplasm of breast Hypercholesterolemia Pure hypercholesterolemia Chronic obstructive pulmonary disease with acute exacerbation (HCC) Gastroesophageal reflux disease without esophagitis Esophageal reflux Other insomnia documented in this encounter [facility]* Diagnosis Routine general medical examination at health care facility- Primary Routine general medical examination at a health care facility Encounter for screening mammogram for malignant neoplasm of breast Hypercholesterolemia Pure hypercholesterolemia Chronic obstructive pulmonary disease with acute exacerbation (HCC) Gastroesophageal reflux disease without esophagitis Esophageal reflux Chronic obstructive pulmonary disease with acute exacerbation (HCC) documented in this encounter [facility]* Diagnosis Routine general medical examination at health care facility- Primary Routine general medical examination at a health care facility Encounter for screening mammogram for malignant neoplasm of breast Hypercholesterolemia Pure hypercholesterolemia Chronic obstructive pulmonary disease with acute exacerbation (HCC) Gastroesophageal reflux disease without esophagitis Esophageal reflux Other insomnia documented in this encounter [facility]* Diagnosis Routine general medical examination at health care facility- Primary Routine general medical examination at a health care facility Encounter for screening mammogram for malignant neoplasm of breast Hypercholesterolemia Pure hypercholesterolemia Chronic obstructive pulmonary disease with acute exacerbation (HCC) Gastroesophageal reflux disease without esophagitis Esophageal reflux Other insomnia [facility] Diagnosis Routine general medical examination at health care facility- Primary Routine general medical examination at a health care facility Encounter for screening mammogram for malignant neoplasm of breast Hypercholesterolemia Pure hypercholesterolemia Chronic obstructive pulmonary disease with acute exacerbation (HCC) Gastroesophageal reflux disease without esophagitis Esophageal reflux Chronic obstructive pulmonary disease with acute exacerbation (HCC) [facility] Diagnosis Routine general medical examination at health care facility- Primary Routine general medical examination at a [facility] Encounter for screening mammogram for malignant neoplasm of breast Hypercholesterolemia Pure hypercholesterolemia Chronic obstructive pulmonary disease with acute exacerbation (HCC) Gastroesophageal reflux disease without esophagitis Esophageal reflux Other insomnia [facility] Diagnosis Onset Date Resolution Status Admit Date Hypokalemia acute February 15 11:21am Hypoxia acute February 15 11:21am Smoker acute February 15 11:21am COPD exacerbation chronic February 152024 11:21am [facility] Work Phone: reason for referral (narrative)No reason for referral information availableWFisher-[facility] Work Phone: reason for visit Narrative* Imaging (Routine) - Closed Specialty Diagnoses / Procedures Referred By Anisa t Referred To Contact Radiology Diagnoses Abnormal CT scan of lung Smoker Procedures CT lung screening follow up low dose Gasper Nelson F, DO [address] [place] [address] Phone: tel: fax: Referral ID Status Reason Start Date Expiration Date Visits Re quested Visits Authorized [id number] Closed 02/22/2024 02/21/2025 1 1 [facility] Health Summary Purpose Family History Relationship Condition Age at Onset Recorded Date/T meera Unknown Family History?- Unknown May 132013 5:25am Family History?- Unknown May 052013 7:01am Relationship Condition Age at Onset Recorded Date/T meera Unknown Family History?- Unknown May 132013 4:25am Family History?- Unknown May 052013 6:01am Relationship Condition Age at Onset Recorded Date/T merea mother Malignant neoplasm of pancreas Unknown father Chronic obstructive pulmonary disease Unk nown brother Malignant neoplasm of colon Unknown Cardiac disease Unknown sister Malignant neoplasm of stomach Unknown brother Leukemia Unknown Advance Directives Documents on File Type Date Recorded 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 No February 15, 2025 8:36am Advance Directives No May 10:10pm Advance Directive Response Recorded Date/ Time Do you have a Healthcare Power of County Court Judge? No February 15, 2025 11:58am Advance Directives No May 10:10pm Advance Directive Response Recorded Date/ Time Do you have a Healthcare Power of County Court Judge? No February 15, 2025 11:58am Do you have a Healthcare Power of County Court Judge? No March 02, 2025 11:53pm Advance Directives No May 10:10pm Advance Directive Response Recorded Date/ Time Do you have a Healthcare Power of County Court Judge? No February 15, 2025 11:58am Do you have a Healthcare Power of County Court Judge? No March 03, 2025 4:02am Advance Directives No May 10:10pm Advance Directive Response Recorded Date/ Time Do you have a Healthcare Power of County Court Judge? No February 15, 2025 11:58am Do you have a Healthcare Power of County Court Judge? No March 06, 2025 5:56am Do you have a Healthcare Power of County Court Judge? No March 03, 2025 4:02am Advance Directives No May 10:10pm Reason for Referral Specialty Diagnoses / Procedures Referred By Anisa arias Referred To Contact Radiology Diagnoses Menopause Procedures DEXA Bone Density Axial Skeleton Danish Davila, DO [address] [place] [address] Referral ID Status Reason Start Date Expiration Date Visits Re quested Visits Authorized [id number] Open 06/07/2021 06/07/2022 1 1 Specialty Diagnoses / Procedures Referred By Contac t Referred To Contact Radiology Diagnoses Smoker Procedures CT lung screening low dose [place] Gasper Serrano, DO [address] [place] [address] Referral ID Status Reason Start Date Expiration Date V isits Requested Visits Authorized [id number] Pending Review 01/13/2023 07/12/2023 1 1 Specialty Diagnoses / Procedures Referred By Contac t Referred To Contact Radiology Diagnoses Smoker Moderate smoker (20 or less per day) Procedures CT lung screening low dose [place] Gasper Serrano, DO [address] [place] [address] Referral ID Status Reason Start Date Expiration Date V isits Requested Visits Authorized [id number] Pending Review 08/01/2023 07/31/2024 1 1 Referral ID Status Reason Start Date Expiration Date Visits Re quested Visits Authorized [id number] Closed 08/01/2023 07/31/2024 1 1 Specialty Diagnoses / Procedures Referred By Contac t Referred To Contact Diagnoses Chronic obstructive pulmonary disease, unspecified COPD type (HCC) Procedures Complete PFT pre and post bronchodilator [place] Gasper Maggie, DO [address] [place] [address] Referral ID Status Reason Start Date Expiration Date V isits Requested Visits Authorized [id number] Pending Review 02/22/2024 02/16/2025 1 1 Specialty Diagnoses / Procedures Referred By Contac t Referred To Contact Radiology Diagnoses Abnormal CT scan of lung Smoker Procedures CT lung screening follow up low dose [place] Gasper Serrano, DO [address] [place] [address] Referral ID Status Reason Start Date Expiration Date V isits Requested Visits Authorized [id number] Pending Review 02/22/2024 02/21/2025 1 1 Specialty Diagnoses / Procedures Referred By Contac t Referred To Contact Gastroenterology Diagnoses Colon cancer screening Procedures ME OFFICE/OUTPATIENT [facility] HIGH MDM 60 MINUTES Gasper Nelson F, DO [address] [place] [address] [employer], [address] [place] [address] Referral ID Status Reason Start Date Expiration Date Visits Requested Visits Authorized [id number] Pending Review Specialty Services Required 02/22/2024 02/21/2025 [...] February 3:30am Non-ST elevated myocardial infarction Ju tx 2024 3:30am History of COPD March 03, [...] section and content) DATE CREATED AUTHOR 10/12/2021 [facility] DATE CREATED AUTHOR AUTHOR'S ORGANIZ ATION 01/19/2022 [facility] DATE CREATED AUTHOR AUTHOR'S ORGANIZ ATION 02/25/2025 [facility] DATE CREATED AUTHOR AUTHOR'S ORGANIZ ATION 03/05/2025 [facility] Care Teams (unrecognized sec [...] Provider Active S tart: February 16, 2025 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 Relationship Specialty Start Date End Date Danish Davila DO [address] [place] [address] PCP - General Family Medicine 03/24/20 Team Status: Active Member Role Status Dates Dr. Aaron Zepeda MD Family Provider Active Dr. Danish Davila DO Primary Care Provider Active Team Status: Inactive Member Role Status Dates Dr. Danish Davila DO Primary Care Provider, Attendin g Provider Active 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 Relationship Specialty Start Date End Date Danish Davila DO [address] [place] [address] PCP - General 03/24/20 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 Relationship Specialty Start Date End Date Gasper Nelson Maggie, DO [address] [place] [address] PCP - General Family Medicine 01/13/23 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 Relationship Specialty Start Date End Date Gasper Nelson, DO [address] [place] [address] PCP - General Family Medicine 01/13/23 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 Relationship Specialty Start Date End Date Gasper Nelson, DO [address] [place] [address] PCP - General Family Medicine 01/13/23 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 Relationship Specialty Start Date End Date Gasper Nelson DO [address] [place] [address] PCP - General Family Medicine 01/13/23 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 Relationship Specialty Start Date End Date Gasper Nelson MaggieDO [address] [place] [address] PCP - General Family Medicine 01/13/23 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 Relationship Specialty Start Date End Date Gasper Nelson DO [address] [place] [address] PCP - General Family Medicine 01/13/23 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 Relationship Specialty Start Date End Date Gasper Nelson DO [address] [place] [phone] PCP - General Family Medicine 01/13/23 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 Relationship Specialty Start Date End Date Gasper Nelson DO [address] [place] [phone] PCP - General Family Medicine 01/13/23 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 Relationship Specialty Start Date End Date ArgentinaGasper, DO [address] [place] [phone] PCP - General Family Medicine 01/13/23 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 Relationship Specialty Start Date End Date [place] Gasper Serrano, DO [address] [place] [phone] PCP - General Family Medicine 01/13/23 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 Relationship Specialty Start Date End Date [place] Gasper Serrano, DO [address] [place] [phone] PCP - General Family Medicine 01/13/23 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 Relationship Specialty Start Date End Date [place] Gasper Serrano, DO [address] [place] [phone] PCP - General Family Medicine 01/13/23 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 Relationship Specialty Start Date End Date [place] Gasper Serrano, DO [address] [place] [phone] PCP - General Family Medicine 01/13/23 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 Relationship Specialty Start Date End Date [place] Gasper Serrano, DO [address] [place] [phone] PCP - General Family Medicine 01/13/23 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 Relationship Specialty Start Date End Date [place] Gasper Serrano, DO [address] [place] [phone] PCP - General Family Medicine 01/13/23 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 Relationship Specialty Start Date End Date [place] Gasper SerranoDO [address] [place] [phone] PCP - General Family Medicine 01/13/23 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 Relationship Specialty Start Date End Date [place] Gasper Serrano, DO [address] [place] [phone] PCP - General Family Medicine 01/13/23 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 Relationship Specialty Start Date End Date [place] Gasper Serrano, [address] [place] [phone] PCP - General Family Medicine 01/13/23 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 Relationship Specialty Start Date End Date Gasper Nelson Maggie, [address] [place] [phone] PCP - General Family Medicine 01/13/23 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 Relationship Specialty Start Date End Date [place] Gasper Serrano, [address] [place] [phone] PCP - General Family Medicine 01/13/23 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 Relationship Specialty Start Date End Date Gasper Nelson Maggie, DO [address] [place] [phone] PCP - General Family Medicine 01/13/23 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 Relationship Specialty Start Date End Date Danish Davila, DO [address] [place] [address] PCP - General 03/24/20 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 Relationship Specialty Start Date End Date Danish Davila DO [address] [place] [address] PCP - General 03/24/20 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 Relationship Specialty Start Date End Date Danish Davila DO [address] [place] [address] PCP - General 03/24/20 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 Relationship Specialty Start Date End Date Danish Davila DO [address] [place] [address] PCP - General 03/24/20 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 Relationship Specialty Start Date End Date Gasper Nelson, [address] [place] [phone] PCP - General Family Medicine 01/13/23 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 Relationship Specialty Start Date End Date Gasper Nelson DO [address] [place] [phone] PCP - General Family Medicine 01/13/23 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 Relationship Specialty Start Date End Date Gasper Nelson, [address] [place] [phone] PCP - General Family Medicine 01/13/23 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 Relationship Specialty Start Date End Date Gasper Nelson, [address] [place] [phone] PCP - General Family Medicine 01/13/23 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 Relationship Specialty Start Date End Date Gasper Nelson, [address] [place] [address] PCP - General Family Medicine 01/13/23 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 Relationship Specialty Start Date End Date Gasper Nelson DO [address] [place] [address] PCP - General Family Medicine [...] Comments Follow-up New to provider, 4 m [facility] med check Reason Onset Date Comments [...] low dose Gasper Nelson F, DO [address] [place] [address] Referral ID Status Reason Start Date Expiration Date Visits Re quested Visits Authorized [id number] Closed 08/01/2023 07/31/2024 1 1 Reason Onset Date Comments Error (VOID this visit) 12/21/2023 Reason Onset Date Comments Appointment 12/22/2023 [facility] Reason Onset Date Comments Med Refill [...] BE BASED ON THE PRIMARY CLINICAL RECORDS. [facility] [employer] [facility] provides no warranty or guarantee of the accuracy or completeness of information in this document.
[2025-03-07 17:25] LABS: Troponin T High Sens 2 HR 49 ng/L (<=14)
--- OUTSIDE RECORDS SUMMARY | 2025-03-07 17:26 | XMS RPT_ITS | CCD ---
Author Organization [facility]ini[facility] Care Team Providers Care Chair Mechanic Name Role Phone Danish Davila DO Primary Care Provider [place] DO, Gasper F Primary Care Provider [place] VICK, Gasper F Primary Care Provider [place] VICK, Gasper F Primary Care Provider Danish Davila DO Primary Care Provider Dr. Danish Davila DO Primary Care Provider Wilfred Bryan MD Emergency Provider [phone] Bunny Avilez DO Admit Provider Dr. Bunny Avilez DO Attending Provider Dr. Bunny Avilez DO Other Provider GASPER NELSON Attending Unavailable GASPER NELSON Referring Unavailable ARGENTINA, GASPER Primary Care Unavailable SIOMARA ESTRADA Attending Unavailable [place], GASPER Primary Care Unavailable GASPER NELSON Attending Unavailable [place], GASPER Primary Care Unavailable Dr. Abdulkadir Peralta DO Emergency Provider [phone] Dr. Gasper Nelson DO Primary Care Provider [...] Unavailable Mathewjohno, Danish Primary Care Unavailable Elisabet Ponce Attending Unavailable Gasper Nelson Primary Care [...] (1 source) Sulfonamides (Antibiotic) Drug Allergy 3 [facility] (20 sources) Sulfonamides (Antibiotic) Propensity to adverse reactions to drug 3 [facility] (10 sources) Sulfonamides (Antibiotic); Translations: [Sulfa (Sulfonamide Antibiotics)] Allergy to substance 5 [facility] Medications Current Medications Medication Drug Class(es) Dates Sig (Normalized) Sig (Original) [id number] 200 actuat albuterol 0.09 mg/actuat metered dose [...] 20 mg/ml oral suspension (15 sources) Uncompetitive [id number] e Receptor Antagonist, Sigma-1 Agonist Start: 10-31-2024 [...] 21 tablet 0 11/14/2022 11/21/2022 Active nystatin 131790 unt/ml oral suspension (2 sources) Polyene Antifungal Start: 03-05-2025 take 310063 [IU] by mouth four times daily Nystatin 100,000 unit/mL Suspension Active 203028 U PO 4 TIMES DAILY 300 0 [...] Auto (Unsp spec) [#/Vol] 2.12 10*3/uL 0.83-4.51 [facility] Absolute neutrophil countOrd ered By: Nicko De Luna on 03-06-2025 Neutrophils (Bld) [#/Vol] 7.8 10*3/uL High 2.0-7.7 [facility] Anion gap in Serum or Plasma Ordered By: Nicko De Luna on 03-06-2025 Anion gap [Moles/Vol] 11 mmol/L 5-15 [facility] Automated lymphocyte count a s percentage of total leukocytesOrdered By: Nicko De Luna on 03-06-2025 Lymphocytes/100 WBC Auto (Unsp spec) 19.6 % 19-41 [facility] BUN/creatinine ratioOrdered By: Nicko De Luna on 03-06-2025 Urea nitrogen/Creatinine [Mass ratio] 38.7 mg/mg High 10-20 [facility] Basophil percentageOrdered B y: Nicko De Luna on 03-06-2025 Basophils/100 WBC (Bld) 0.4 % 0-1 [facility] Bilirubin Test strip Ql (U)O rdered By: Nicko De Luna on 03-06-2025 Bilirubin Ql (U) Negative Negative [facility] Bilirubin, totalOrdered By: Nicko De Luna on 03-06-2025 Bilirubin [Mass/Vol] 0.62 mg/dL 0.00-1.30 [facility] Blood manual differential co mment interpretation (narrative result)Ordered By: Nicko De Luna on 03-06-2025 Manual differential comment Ji (Bld) [Interp] SCANNED [facility] Calcium oxalate crystals det ection in urine sediment by light microscopyOrdered By: Nicko De Luna on 03-06-2025 Calcium oxalate crystals LM Ql (Urine sed) 2+ /hpf [facility] Carbon dioxide, total [Moles /volume] in Central venous bloodOrdered By: Nicko De Luna on 03-06-2025 CO2 [Moles/Vol] 27.0 mmol/L 21.0-32.0 [facility] Chloride assayOrdered By: Asif De Luna on 03-06-2025 Chloride [Moles/Vol] 100 mmol/L 98-108 [facility] Eosinophil percentageOrdered By: Nicko De Luna on 03-06-2025 Eosinophils/100 WBC (Bld) 1.5 % 0-5 [facility] Erythrocyte distribution wid th ratioOrdered By: Nicko De Luna on 03-06-2025 Erythrocyte distribution width (RBC) [Ratio] 13.2 % 11.6-14.6 [facility] Erythrocyte distribution wid th standard deviationOrdered By: Nicko Johnson on 03-06-2025 Erythrocyte distribution width (RBC) [Ratio] 43.6 fl 35.1-43.9 [facility] Glomerular filtration rate ( GFR) estimation/1.73 sq m using serum, plasma, or whole bOrdered By: Nicko De Luna on 03-06-2025 GFR/1.73 sq M.predicted among non-blacks MDRD (S/P/Bld) [Vol rate/Area] 95 mL/min/{1.73_m2} >60 [facility] Comment on above: mL/min/1.73m2 CKD-EP I Creatinine Equation (2020) Hematocrit Auto (Bld) [Volum e fraction]Ordered By: Nicko Calixto on 03-06-2025 Hematocrit (Bld) [Volume fraction] 42.1 % 37-47 [facility] Hemoglobin measurementOrdere d By: Nicko De Luna on 03-06-2025 Hemoglobin (Bld) [Mass/Vol] 14.1 g/dL 12.0-15.0 [facility] Immature granulocytes/100 WB C Auto (Bld)Ordered By: Nicko De Luna on 03-06-2025 Immature granulocytes/100 WBC (Bld) 0.300 % 0.0-0.9 [facility] Comment on above: IG% - Immature Granu locytes (promyelocytes, myelocytes and metamyelocytes) > 1% indicates that a LEFT SHIFT is Present. Ketones Test strip Ql (U)Ord ered By: Nicko De Luna on 03-06-2025 Ketones Ql (U) Negative Negative [facility] Laboratory - Chemistry and C hemistry - challengeOrdered By: Nicko De Luna on 03-06-2025 AST [Catalytic activity/Vol] 25 U/L <32 [facility] Lipase measurementOrdered By : Nicko De Luna on 03-06-2025 Lipase [Catalytic activity/Vol] 16 U/L 13-75 [facility] Comment on above: Please note:LIPASE r evised reference range effective 22. New Lipase methodology. Expected to produce lower values than the previous assay method. NEW Reference Range: 13 - 75 U/L MCV (mean corpuscular volume ) determinationOrdered By: Nicko De Luna on 03-06-2025 MCV (RBC) [Entitic vol] 90.3 fL 81-99 [facility] Mean corpuscular hemoglobin (MCH) determinationOrdered By: Nicko De Luna on 03-06-2025 MCH (RBC) [Entitic mass] 30.3 pg 27.0-32.0 [facility] Mean corpuscular hemoglobin concentration (MCHC) determinationOrdered By: Nicko De Luna on 03-06-2025 MCHC (RBC) [Mass/Vol] 33.5 g/dL 32-36 [facility] Mean platelet volume determi nationOrdered By: Nicko De Luna on 03-06-2025 Platelet mean volume (Bld) [Entitic vol] 10.6 fL 6.2-12.0 [facility] Microscopic analysis of urin e for red blood cells (RBC)Ordered By: Nicko De Luna on 03-06-2025 Microscopic analysis of urine for red blood cells (RBC) 0 SEEN /hpf 0-5 [facility] Monocyte percentageOrdered B y: Nicko De Luna on 03-06-2025 Monocytes/100 WBC (Bld) 5.8 % 0-10 [facility] Mucus LM Ql (Urine sed)Order ed By: Nicko De Luna on 03-06-2025 Mucus Ql (Urine sed) 0 SEEN /hpf [facility] Neutrophil percentageOrdered By: Nicko De Luna on 03-06-2025 Neutrophils/100 WBC (Bld) 72.4 % High 47-70 [facility] Nitrite Test strip Ql (U)Ord ered By: Nicko De Luna on 03-06-2025 Nitrite Ql (U) Negative Negative [facility] Nucleated red blood cell per centageOrdered By: Nicko De Luna on 03-06-2025 Nucleated RBC/100 WBC (Bld) [Ratio] 0 % 0-5 [facility] Platelet countOrdered By: Asif De Luna on 03-06-2025 Platelets (Bld) [#/Vol] 170 10*3/uL 150-450 [facility] Platelet estimateOrdered By: Nicko De Luna on 03-06-2025 Platelets LM Ql (Bld) ADEQUATE ADEQ [facility] Potassium measurement (mass/ volume)Ordered By: Nicko De Luna on 03-06-2025 Potassium (Unsp spec) [Mass/Vol] 3.0 mmol/L Low 3.3-5.1 [facility] Protein Test strip Ql (U)Ord ered By: Nicko De Luna on 03-06-2025 Protein Ql (U) 30 mg/dl High Negative [facility] RBC Auto (Bld) [#/Vol]Ordere d By: Nicko De Luna on 03-06-2025 RBC (Bld) [#/Vol] 4.66 10*6/uL 4.2-5.4 [facility] Serum creatinine measurement (mass/volume)Ordered By: Nicko De Luna on 03-06-2025 Creatinine [Mass/Vol] 0.63 mg/dL Low 0.70-1.20 [facility] Serum globulin measurementOr dered By: Nicko De Luna on 03-06-2025 Globulin (S) [Mass/Vol] 2.4 g/dL 2.2-4.2 [facility] Serum glucose measurement (m ass/volume)Ordered By: Nicko De Luna on 03-06-2025 Glucose [Mass/Vol] 153 mg/dL High 70-99 [facility] Serum or plasma alanine marin otransferase (ALT) measurementOrdered By: Nicko De Luna on 03-06-2025 ALT [Catalytic activity/Vol] 22 U/L <35 [facility] Serum or plasma albumin janneth urement (mass/volume)Ordered By: Nicko Johnson on 03-06-2025 Albumin [Mass/Vol] 4.1 g/dL 3.4-4.8 [facility] Serum or plasma albumin/glob ulin mass ratioOrdered By: Nicko De Luna on 03-06-2025 Albumin/Globulin [Mass ratio] 1.7 {ratio} 0.9-2.4 [facility] Serum or plasma alkaline robert sphatase measurementOrdered By: Nicko De Luna on 03-06-2025 ALP [Catalytic activity/Vol] 65 U/L 35-104 [facility] Serum or plasma calcium janneth urement (mass/volume)Ordered By: Nicko Johnson on 03-06-2025 Calcium [Mass/Vol] 9.8 mg/dL 7.6-11.0 [facility] Serum or plasma urea nitroge n measurement (mass/volume)Ordered By: Nicko De Luna on 03-06-2025 Urea nitrogen [Mass/Vol] 24 mg/dL High 4-19 [facility] Sodium levelOrdered By: Brenden De Luna on 03-06-2025 Sodium [Moles/Vol] 138 mmol/L 133-145 [facility] Squamous epithelial cells de tection in urine sediment by light microscopyOrdered By: Nicko De Luna on 03-06-2025 Epithelial cells.squamous LM Ql (Urine sed) 0-5 SEEN /hpf 5-10 [facility] Total proteinOrdered By: Livan De Luna on 03-06-2025 Protein [Mass/Vol] 6.5 g/dL 5.9-8.4 [facility] Urine clarityOrdered By: Livan De Luna on 03-06-2025 Clarity (U) Clear Clear [facility] Urine color determinationOrd ered By: Nicko De Luna on 03-06-2025 Color (U) Yellow Yellow [facility] Urine glucose detectionOrder ed By: Nicko De Luna on 03-06-2025 Glucose Ql (U) 50 mg/dl High Normal [facility] Urine leukocyte esterase det ection by dipstickOrdered By: Nicko De Luna on 03-06-2025 Leukocyte esterase Test strip Ql (U) 25 /ul High Negative [facility] Urine pHOrdered By: Nicko Weaver on 03-06-2025 pH (U) 6.0 [pH] 5.0 - 8.0 [facility] Urine sediment bacteria coun t by microscopy (number/high power field)Ordered By: Nicko De Luna on 03-06-2025 Bacteria LM.HPF (Urine sed) [#/Area] 0 /[HPF] None Seen [facility] Urine specific gravity measu rementOrdered By: Nicko De Luna on 03-06-2025 Specific gravity (U) [Rel density] 1.020 1.002-1.030 [facility] Urine urobilinogen measureme ntOrdered By: Nicko De Luna on 03-06-2025 Urobilinogen Ql (U) 1 mg/dl High Normal [facility] White blood cell (WBC) count Ordered By: Nicko De Luna on 03-06-2025 WBC (Bld) [#/Vol] 10.8 10*3/uL 4.4-11.0 [facility] White blood cell countOrdere d By: Nicko De Luna on 03-06-2025 White blood cell count 0 SEEN /hpf 0-5 [facility] Absolute lymphocyte countOrd ered By: Kelvin Falk on 03-05-2025 Lymphocytes Auto (Unsp spec) [#/Vol] 1.17 10*3/uL 0.83-4.51 [facility] Absolute neutrophil countOrd ered By: Kelvin Falk on 03-05-2025 Neutrophils (Bld) [#/Vol] 8.3 10*3/uL High 2.0-7.7 [facility] Anion gap in Serum or Plasma Ordered By: Kelvin Falk on 03-05-2025 Anion gap [Moles/Vol] 16 mmol/L High 5-15 [facility] Automated lymphocyte count a s percentage of total leukocytesOrdered By: Kelvin Falk on 03-05-2025 Lymphocytes/100 WBC Auto (Unsp spec) 11.9 % Low 19-41 [facility] BUN/creatinine ratioOrdered By: Kelvin Falk on 03-05-2025 Urea nitrogen/Creatinine [Mass ratio] 31.2 mg/mg High 10- [facility] Basic Metabolic Profile (BMP )on 03-05-2025 BUN/CRE 31.2 RATIO High 06-23 [facility] Comment on above: Performed By: #### L 500.2500, L100.0100, L501.2300, L501.5200 #### [facility] [address] [place], [address] Calcium [Mass/Vol] 9.6 mg/dL Normal 7.6-11.0 [facility] Comment on above: Performed By: #### L 500.2500, L100.0100, L501.2300, L501.5200 #### [facility] [address] [place], [address] Chloride [Moles/Vol] 99 mmol/L Normal 98-108 [facility] Comment on above: Performed By: #### L 500.2500, L100.0100, L501.2300, L501.5200 #### [facility] [address] [place], [address] CO2 [Moles/Vol] 19.1 mmol/L Low 21.0-32.0 [facility] Comment on above: Performed By: #### L 500.2500, L100.0100, L501.2300, L501.5200 #### [facility] [address] [place], [address] Creatinine [Mass/Vol] 0.76 mg/dL Normal 0.70-1.20 [facility] Comment on above: Performed By: #### L 500.2500, L100.0100, L501.2300, L501.5200 #### [facility] [address] [place], [address] ECRCL 47.62 ml/min Low 50-250 [facility] Comment on above: Performed By: #### L 500.2500, L100.0100, L501.2300, L501.5200 #### [facility] [address] [place], [address] GAP 16 High 5-15 [facility] Comment on above: Performed By: #### L 500.2500, L100.0100, L501.2300, L501.5200 #### [facility] [address] [place], [address] GFR/1.73 sq M.predicted among non-blacks MDRD (S/P/Bld) [Vol rate/Area] 84 mL/min/{1.73_m2} Normal >60 [facility] Comment on above: Result Comment: mL/m in/1.73m2 CKD-EPI Creatinine Equation (2020) Performed By: #### L 500.2500, L100.0100, L501.2300, L501.5200 #### [facility] [address] [place], [address] Glucose [Mass/Vol] 148 mg/dL High 70-99 [facility] Comment on above: Performed By: #### L 500.2500, L100.0100, L501.2300, L501.5200 #### [facility] [address] [place], [address] Potassium [Moles/Vol] 3.6 mmol/L Normal 3.3-5.1 [facility] Comment on above: Result Comment: Hemo lysis present, Results??could be affected. ?? Performed By: #### L 500.2500, L100.0100, L501.2300, L501.5200 #### [facility] [address] [place], [address] Sodium [Moles/Vol] 134 mmol/L Normal 133-145 [facility] Comment on above: Performed By: #### L 500.2500, L100.0100, L501.2300, L501.5200 #### [facility] [address] [place], [address] Urea nitrogen [Mass/Vol] 24 mg/dL High 4-19 [facility] Comment on above: Performed By: #### L 500.2500, L100.0100, L501.2300, L501.5200 #### [facility] [address] [place], [address] Basophil percentageOrdered B y: Kelvin Falk on 03-05-2025 Basophils/100 WBC (Bld) 0.3 % 0-1 [facility] CBC W/Diff, Automatedon 07-0 Absolute Lymph 1.17 X10 3/uL Normal 0.83-4.51 [facility] Comment on above: Performed By: #### L 500.2500, L100.0100, L501.2300, L501.5200 #### [facility] [address] [place], [address] Absolute Neut 8.3 X10 3/uL High 2.0-7.7 [facility] Comment on above: Performed By: #### L 500.2500, L100.0100, L501.2300, L501.5200 #### [facility] [address] [place], [address] Basophils/100 WBC (Bld) 0.3 % Normal 0-1 [facility] Comment on above: Performed By: #### L 500.2500, L100.0100, L501.2300, L501.5200 #### [facility] [address] [place], [address] Eosinophils/100 WBC (Bld) 0.3 % Normal 0-5 [facility] Comment on above: Performed By: #### L 500.2500, L100.0100, L501.2300, L501.5200 #### [facility] [address] [place], [address] Erythrocyte distribution width (RBC) [Ratio] 13.2 % Normal 11.6-14.6 [facility] Comment on above: Performed By: #### L 500.2500, L100.0100, L501.2300, L501.5200 #### [facility] [address] [place], [address] Hematocrit (Bld) [Volume fraction] 40.6 % Normal 37-47 [facility] Comment on above: Performed By: #### L 500.2500, L100.0100, L501.2300, L501.5200 #### [facility] [address] [place], [address] Hemoglobin (Bld) [Mass/Vol] 13.6 g/dL Normal 12.0-15.0 [facility] Comment on above: Performed By: #### L 500.2500, L100.0100, L501.2300, L501.5200 #### [facility] [address] [place], [address] IG% 0.400 Normal 0.0-0.9 [facility] Comment on above: Result Comment: IG% - Immature Granulocytes (promyelocytes, myelocytes and metamyelocytes) > 1% indicates that a LEFT SHIFT is Present. Performed By: #### L 500.2500, L100.0100, L501.2300, L501.5200 #### [facility] [address] [place], [address] Lymphocytes/100 WBC (Bld) 11.9 % Low 19-41 [facility] Comment on above: Performed By: #### L 500.2500, L100.0100, L501.2300, L501.5200 #### [facility] [address] [place], [address] MCH (RBC) [Entitic mass] 30.3 pg Normal 27.0-32.0 [facility] Comment on above: Performed By: #### L 500.2500, L100.0100, L501.2300, L501.5200 #### [facility] [address] [place], [address] MCHC (RBC) [Mass/Vol] 33.5 g/dL Normal 32-36 [facility] Comment on above: Performed By: #### L 500.2500, L100.0100, L501.2300, L501.5200 #### [facility] [address] [place], [address] MCV (RBC) [Entitic vol] 90.4 fL Normal 81-99 [facility] Comment on above: Performed By: #### L 500.2500, L100.0100, L501.2300, L501.5200 #### [facility] [address] [place], [address] Monocytes/100 WBC (Bld) 2.4 % Normal 0-10 [facility] Comment on above: Performed By: #### L 500.2500, L100.0100, L501.2300, L501.5200 #### [facility] [address] [place], [address] Neutrophils/100 WBC (Bld) 84.7 % High 47-70 [facility] Comment on above: Performed By: #### L 500.2500, L100.0100, L501.2300, L501.5200 #### [facility] [address] [place], [address] Nucleated RBC (Bld) [#/Vol] 0 10*3/uL Normal 0-5 [facility] Comment on above: Performed By: #### L 500.2500, L100.0100, L501.2300, L501.5200 #### [facility] [address] [place], [address] Platelet mean volume (Bld) [Entitic vol] 10.3 fL Normal 6.2-12.0 [facility] Comment on above: Performed By: #### L 500.2500, L100.0100, L501.2300, L501.5200 #### [facility] [address] [place], [address] Platelets (Bld) [#/Vol] 227 10*3/uL Normal 150-450 [facility] Comment on above: Performed By: #### L 500.2500, L100.0100, L501.2300, L501.5200 #### [facility] [address] [place], [address] RBC (Bld) [#/Vol] 4.49 10*6/uL Normal 4.2-5.4 [facility] Comment on above: Performed By: #### L 500.2500, L100.0100, L501.2300, L501.5200 #### [facility] [address] [place], [address] RDW SD 43.2 fl Normal 35.1-43.9 [facility] Comment on above: Performed By: #### L 500.2500, L100.0100, L501.2300, L501.5200 #### [facility] [address] [place], [address] WBC (Bld) [#/Vol] 9.9 10*3/uL Normal 4.4-11.0 [facility] Comment on above: Performed By: #### L 500.2500, L100.0100, L501.2300, L501.5200 #### [facility] [address] [place], [address] Carbon dioxide, total [Moles /volume] in Central venous bloodOrdered By: Kelvin Falk on 03-05-2025 CO2 [Moles/Vol] 19.1 mmol/L Low 21.0-32.0 [facility] Chloride assayOrdered By: Boby Falk on 03-05-2025 Chloride [Moles/Vol] 99 mmol/L 98-108 [facility] Eosinophil percentageOrdered By: Kelvin Falk on 03-05-2025 Eosinophils/100 WBC (Bld) 0.3 % 0-5 [facility] Erythrocyte distribution wid th ratioOrdered By: Kelvin Falk on 03-05-2025 Erythrocyte distribution width (RBC) [Ratio] 13.2 % 11.6-14.6 [facility] Erythrocyte distribution wid th standard deviationOrdered By: Kelvin Falk on 03-05-2025 Erythrocyte distribution width (RBC) [Ratio] 43.2 fl 35.1-43.9 [facility] Glomerular filtration rate ( GFR) estimation/1.73 sq m using serum, plasma, or whole bOrdered By: Kelvin Falk on 03-05-2025 GFR/1.73 sq M.predicted among non-blacks MDRD (S/P/Bld) [Vol rate/Area] 84 mL/min/{1.73_m2} >60 [facility] Comment on above: mL/min/1.73m2 CKD-EP I Creatinine Equation (2020) Hematocrit Auto (Bld) [Volum e fraction]Ordered By: Kelvin Falk on 03-05-2025 Hematocrit (Bld) [Volume fraction] 40.6 % 37-47 [facility] Hemoglobin measurementOrdere d By: Kelvin Falk on 03-05-2025 Hemoglobin (Bld) [Mass/Vol] 13.6 g/dL 12.0-15.0 [facility] Immature granulocytes/100 WB C Auto (Bld)Ordered By: Kelvin Falk on 03-05-2025 Immature granulocytes/100 WBC (Bld) 0.400 % 0.0-0.9 [facility] Comment on above: IG% - Immature Granu locytes (promyelocytes, myelocytes and metamyelocytes) > 1% indicates that a LEFT SHIFT is Present. MCV (mean corpuscular volume ) determinationOrdered By: Kelvin Falk on 03-05-2025 MCV (RBC) [Entitic vol] 90.4 fL 81-99 [facility] Magnesiumon 03-05-2025 Magnesium [Mass/Vol] 1.8 mg/dL Normal 1.5-2.2 [facility] Comment on above: Performed By: #### L 500.2500, L100.0100, L501.2300, L501.5200 #### [facility] [address] [place], [place], [id number] Magnesium measurement (mass/ volume)Ordered By: Kelvin Falk on 03-05-2025 Magnesium (Unsp spec) [Mass/Vol] 1.8 mg/dL 1.5-2.2 [facility] Mean corpuscular hemoglobin (MCH) determinationOrdered By: Kelvin Falk on 03-05-2025 MCH (RBC) [Entitic mass] 30.3 pg 27.0-32.0 [facility] Mean corpuscular hemoglobin concentration (MCHC) determinationOrdered By: Kelvin Falk on 03-05-2025 MCHC (RBC) [Mass/Vol] 33.5 g/dL 32-36 [facility] Mean platelet volume determi nationOrdered By: Kelvin Falk on 03-05-2025 Platelet mean volume (Bld) [Entitic vol] 10.3 fL 6.2-12.0 [facility] Monocyte percentageOrdered B y: Kelvin Falk on 03-05-2025 Monocytes/100 WBC (Bld) 2.4 % 0-10 [facility] Neutrophil percentageOrdered By: Kelvin Falk on 03-05-2025 Neutrophils/100 WBC (Bld) 84.7 % High 47-70 [facility] Nucleated red blood cell per centageOrdered By: Kelvin Falk on 03-05-2025 Nucleated RBC/100 WBC (Bld) [Ratio] 0 % 0-5 [facility] Phosphoruson 03-05-2025 Phosphate [Mass/Vol] 2.2 mg/dL Low 2.7-4.5 [facility] Comment on above: Result Comment: AMENDED REPORT 03/05/25 0812 PHOS previously reported as: 2.1 L mg/dL Performed By: #### L 500.2500, L100.0100, L501.2300, L501.5200 #### [facility] Laboratory [address] [place], [address] Platelet countOrdered By: Boby Falk on 03-05-2025 Platelets (Bld) [#/Vol] 227 10*3/uL 150-450 [facility] Potassium measurement (mass/ volume)Ordered By: Kelvin Falk on 03-05-2025 Potassium (Unsp spec) [Mass/Vol] 3.6 mmol/L 3.3-5.1 [facility] Comment on above: Hemolysis present, R esults could be affected. RBC Auto (Bld) [#/Vol]Ordere d By: Kelvin Falk on 03-05-2025 RBC (Bld) [#/Vol] 4.49 10*6/uL 4.2-5.4 [facility] Serum creatinine measurement (mass/volume)Ordered By: Kelvin Falk on 03-05-2025 Creatinine [Mass/Vol] 0.76 mg/dL 0.70-1.20 [facility] Serum glucose measurement (m ass/volume)Ordered By: Kelvin Falk on 03-05-2025 Glucose [Mass/Vol] 148 mg/dL High 70-99 [facility] Serum or plasma calcium janneth urement (mass/volume)Ordered By: Kelvin Falk on 03-05-2025 Calcium [Mass/Vol] 9.6 mg/dL 7.6-11.0 [facility] Serum or plasma urea nitroge n measurement (mass/volume)Ordered By: Kelvin Falk on 03-05-2025 Urea nitrogen [Mass/Vol] 24 mg/dL High 4-19 [facility] Sodium levelOrdered By: Jack Falk on 03-05-2025 Sodium [Moles/Vol] 134 mmol/L 133-145 [facility] White blood cell (WBC) count Ordered By: Kelvin Falk on 03-05-2025 WBC (Bld) [#/Vol] 9.9 10*3/uL 4.4-11.0 [facility] Calculated very low density lipoprotein (VLDL) cholesterol measurementOrdered By: Tonja Jo on 03-04-2025 Calculated very low density lipoprotein (VLDL) cholesterol measurement 17 mg/dL 5-40 [facility] Electrocardiogram reportOrde red By: Ezequiel Gusman on 03-04-2025 EKG study [facility] Cardiovascular Services [address] [place] [address] 12 Lead EKG 03/03/25 0556 MR#: [id number] Acct: [id number] Name: ASHLEY GÓMEZ Rep #:[id number] : 1955 69 From: Ezequiel Gusman MD Attending Dr: Dr. Bunny Avilez DO Status: ADM IN Ordering Dr: Tonja Jo MD Date: 03/03/25 Location: [facility] Sex: F C Admitted: 03/03/25 Test Reason [...] IS UNCONFIRMED Confirmed by MURTAZA CHISHOLM, EZEQUIEL ([id number]), video news editor OSWALD ROSA ([id number]) on 03/04/2025 6:51:15 AM Referred By: Confirmed By: EZEQUIEL GUSMAN MD 03/04/25 0651 Date _ Ezequiel Gusman MD CC: Dr. Tonja Jo MD; Dr. Gasper Nelson DO; Dr. Bunny Avilez DO ~ Signed [facility] Other Phone: EKG study [facility] Cardiovascular Services [address] [place] [address] 12 Lead EKG 03/02/25 2340 MR#: [id number] Acct: [id number] Name: ASHLEY GÓMEZ Rep #:[id number] : 1955 69 From: Ezequiel Gusman MD Attending Dr: Dr. Bunny Avilez DO Status: ADM IN Ordering Dr: Abdulkadir Peralta DO Date: Location: [facility] Sex: F C Admitted: 03/03/25 Test Reason [...] Abnormal ECG Confirmed by MURTAZA CHISHOLM, EZEQUIEL ([id number]), video news editor OSWALD ROSA ([id number]) on 03/04/2025 6:37:00 AM Referred By: KEVIN Confirmed By: EZEQUIEL GUSMAN MD 03/04/25 0637 Date _ Ezequiel Gusman MD CC: Dr. Gasper Nelson, ; Dr. Bunny Avilez DO; Dr. Abdulkadir Peralta DO ~ Signed [facility] Other Phone: LDL calc ser/plasOrdered By: Tonja Jo on 03-04-2025 Cholesterol in LDL [Mass/Vol] 147 mg/dL [facility] Comment on above: Xjzzwgsmpj=273-601 m g/dL & Higher Emgo=260 mg/dL or greater Lipid Profileon 03-04-2025 CHOL:HDL 4.27 Normal [facility] Comment on above: Performed By: #### L 501.9260, L503.6005, L500.4050, L300.8000, L100.0100 #### [facility] Laboratory [address] [place], [address] Cholesterol [Mass/Vol] 215 mg/dL High <=200 [facility] Comment on above: Result Comment: Chol esterol level, Desirable <200 mg/dL Borderline high cholesterol 200-239 mg/dL High cholesterol >=240 mg/dL Recommendations of the NCEP Adult Treatment Panel for the following risk-cutoff thresholds for the [place] population. Performed By: #### L 501.2450, L503.6005, L500.4050, L300.8000, L100.0100 #### [facility] Laboratory [address] [place], [address] Cholesterol in HDL [Mass/Vol] 50 mg/dL Normal [facility] Comment on above: Result Comment: Tonia onal Cholesterol Education Program (NCEP) guidelines: <40 mg/dL: Low HDL-cholesterol (major risk factor for CHD) >= 60 mg/dL: High HDL-cholesterol (negative risk factor for CHD) HDL-cholesterol is affected by a number of factors, e.g. smoking, exercise, hormones, sex and age. Performed By: #### L 501.2450, L503.6005, L500.4050, L300.8000, L100.0100 #### [facility] Laboratory [address] [place], [address] Cholesterol in LDL [Mass/Vol] 147 mg/dL Normal [facility] Comment on above: Result Comment: Bord apicew=203-600 mg/dL Higher Tgew=379 mg/dL or greater Performed By: #### L 501.2450, L503.6005, L500.4050, L300.8000, L100.0100 #### [facility] Laboratory [address] [place], [address] Cholesterol in VLDL [Mass/Vol] 17 mg/dL Normal 5-40 [facility] Comment on above: Performed By: #### L 501.2450, L503.6005, L500.4050, L300.8000, L100.0100 #### [facility] Laboratory [address] [place], [address] Triglyceride [Mass/Vol] 87 mg/dL Normal [facility] Comment on above: Result Comment: The drugs N-Acetylcysteine and Metamizole may falsely depress this assay. Normal range: <150 mg/dL Borderline High: 150-199 mg/dL High: 200-499 mg/dL Very High: >500 mg/dL Performed By: #### L 501.2450, L503.6005, L500.4050, L300.8000, L100.0100 #### [facility] Laboratory [address] [facility] [place], [address] Screening total cholesterol/ high density lipoprotein (HDL) cholesterol ratioOrdered By: Tonja Jo on 03-04-2025 Cholesterol.total/Choles terol in HDL [Mass ratio] 4.27 {ratio} [facility] Serum or plasma cholesterol in HDL measurement (mass/volume)Ordered By: Tonja Jo on 03-04-2025 Cholesterol in HDL [Mass/Vol] 50 mg/dL >40 [facility] Comment on above: National Cholesterol Education Program (NCEP) guidelines:<40 mg/dL: Low HDL-cholesterol (major risk factor for CHD)>= 60 mg/dL: High HDL-cholesterol (negative risk factor for CHD)HDL-cholesterol is affected by a number of factors, e.g. smoking, exercise, hormones, sex and age. Serum or plasma cholesterol measurement (mass/volume)Ordered By: Tonja Jo on 03-04-2025 Cholesterol [Mass/Vol] 215 mg/dL High <201 [facility] Comment on above: Cholesterol level, D esirable <200 mg/dLBorderline high cholesterol 200-239 mg/dLHigh cholesterol >=240 mg/dLRecommendations of the NCEP Adult Treatment Panel for the following risk-cutoff thresholds for the [place] population. Triglycerides measurementOrd ered By: Tonja Jo on 03-04-2025 Triglyceride [Mass/Vol] 87 mg/dL <199 [facility] Comment on above: The drugs N-Acetylcy steine and Metamizole may falsely depress this assay. Normal range: <150 mg/dLBorderline High: 150-199 mg/dLHigh: 200-499 mg/dLVery High: >500 mg/dL 12 Lead EKGon 03-03-2025 12 Lead EKG [facility] Cardiovascular Services [address] [place] [address] 12 Lead EKG 03/03/25 0556 MR#: [id number] Acct: [id number] Name: ASHLEY GÓMEZ Rep #: [id number] : 1955 69 From: Ezequiel Gusman MD Attending Dr: Dr. Bunny Avilez DO Status: A DM IN Ordering Dr: Tonja Jo MD Date: 03/03/25 Location: [facility] Sex: F C Admitted: 03/03/25 Test Reason [...] UNCONFIRMED Confirmed by MURTAZA CHISHOLM, EZEQUIEL ([id number]), video news editor OSWALD ROSA ([id number]) on 03/04/2025 6:51:15 AM Referred By: Confirmed By: EZEQUIEL GUSMAN MD 03/04/25 0651 Date Ezequiel Gusman MD CC: Dr. Tonja Jo MD; Dr. Gasper Nelson DO; Dr. Bunny Avilez DO Signed Normal [facility] Absolute lymphocyte countOrd ered By: Abdulkadir Peralta on 03-03-2025 Lymphocytes Auto (Unsp spec) [#/Vol] 2.54 10*3/uL 0.83-4.51 [facility] Absolute neutrophil countOrd ered By: Abdulkadir Peralta on 03-03-2025 Neutrophils (Bld) [#/Vol] 18.9 10*3/uL High 2.0-7.7 [facility] Anion gap in Serum or Plasma Ordered By: Abdulkadir Peralta on 03-03-2025 Anion gap [Moles/Vol] 17 mmol/L High 5-15 [facility] Automated lymphocyte count a s percentage of total leukocytesOrdered By: Abdulkadir Peralta on 03-03-2025 Lymphocytes/100 WBC Auto (Unsp spec) 11.1 % Low 19-41 [facility] BUN/creatinine ratioOrdered By: Remus Ungrachel on 03-03-2025 Urea nitrogen/Creatinine [Mass ratio] 33.1 mg/mg High 10-20 [facility] Basophil percentageOrdered B y: Remus Ungrachel on 03-03-2025 Basophils/100 WBC (Bld) 0.4 % 0-1 [facility] Bilirubin Test strip Ql (U)O rdered By: Abdulkadir Peralta on 03-03-2025 Bilirubin Ql (U) Negative Negative [facility] Bilirubin, totalOrdered By: Tonja White on 03-03-2025 Bilirubin [Mass/Vol] 0.48 mg/dL 0.00-1.30 [facility] Bilirubin, totalOrdered By: Abdulkadir Peralta on 03-03-2025 Bilirubin [Mass/Vol] 0.78 mg/dL 0.00-1.30 [facility] CBC W/Diff, Automatedon 02-04 0-2024 Absolute Lymph 1.17 X10 3/uL Normal 0.83-4.51 [facility] Comment on above: Performed By: #### L 501.2450, L503.6005, L500.4050, L300.8000, L100.0100 #### [facility] Laboratory [address] [facility] [place], [address] Absolute Neut 14.3 X10 3/uL High 2.0-7.7 [facility] Comment on above: Performed By: #### L 501.2450, L503.6005, L500.4050, L300.8000, L100.0100 #### [facility] Laboratory [address] [place], [address] Basophils/100 WBC (Bld) 0.3 % Normal 0-1 [facility] Comment on above: Performed By: #### L 501.2450, L503.6005, L500.4050, L300.8000, L100.0100 #### [facility] Laboratory [address] [place], [address] Eosinophils/100 WBC (Bld) 0.1 % Normal 0-5 [facility] Comment on above: Performed By: #### L 501.2450, L503.6005, L500.4050, L300.8000, L100.0100 #### [facility] Laboratory [address] [place], [address] Erythrocyte distribution width (RBC) [Ratio] 13.4 % Normal 11.6-14.6 [facility] Comment on above: Performed By: #### L 501.2450, L503.6005, L500.4050, L300.8000, L100.0100 #### [facility] Laboratory [address] [place], [address] Hematocrit (Bld) [Volume fraction] 43.2 % Normal 37-47 [facility] Comment on above: Performed By: #### L 501.2450, L503.6005, L500.4050, L300.8000, L100.0100 #### [facility] Laboratory [address] [place], [address] Hemoglobin (Bld) [Mass/Vol] 14.6 g/dL Normal 12.0-15.0 [facility] Comment on above: Performed By: #### L 501.2450, L503.6005, L500.4050, L300.8000, L100.0100 #### [facility] Laboratory [address] [place], [address] IG% 0.300 Normal 0.0-0.9 [facility] Comment on above: Result Comment: IG% - Immature Granulocytes (promyelocytes, myelocytes and metamyelocytes) > 1% indicates that a LEFT SHIFT is Present. Performed By: #### L 501.2450, L503.6005, L500.4050, L300.8000, L100.0100 #### [facility] Laboratory [address] [place], [address] Lymphocytes/100 WBC (Bld) 7.3 % Low 19-41 [facility] Comment on above: Performed By: #### L 501.2450, L503.6005, L500.4050, L300.8000, L100.0100 #### [facility] Laboratory [address] [place], [address] MCH (RBC) [Entitic mass] 30.3 pg Normal 27.0-32.0 [facility] Comment on above: Performed By: #### L 501.2450, L503.6005, L500.4050, L300.8000, L100.0100 #### [facility] Laboratory [address] [place], [address] MCHC (RBC) [Mass/Vol] 33.8 g/dL Normal 32-36 [facility] Comment on above: Performed By: #### L 501.2450, L503.6005, L500.4050, L300.8000, L100.0100 #### [facility] Laboratory [address] [place], [address] MCV (RBC) [Entitic vol] 89.6 fL Normal 81-99 [facility] Comment on above: Performed By: #### L 501.2450, L503.6005, L500.4050, L300.8000, L100.0100 #### [facility] Laboratory [address] [place], [address] Monocytes/100 WBC (Bld) 3.5 % Normal 0-10 [facility] Comment on above: Performed By: #### L 501.2450, L503.6005, L500.4050, L300.8000, L100.0100 #### [facility] Laboratory [address] [place], [address] Neutrophils/100 WBC (Bld) 88.5 % High 47-70 [facility] Comment on above: Performed By: #### L 501.2450, L503.6005, L500.4050, L300.8000, L100.0100 #### [facility] Laboratory [address] [place], [address] Nucleated RBC (Bld) [#/Vol] 0 10*3/uL Normal 0-5 [facility] Comment on above: Performed By: #### L 501.2450, L503.6005, L500.4050, L300.8000, L100.0100 #### [facility] Laboratory [address] [place], [address] Platelet mean volume (Bld) [Entitic vol] 9.9 fL Normal 6.2-12.0 [facility] Comment on above: Performed By: #### L 501.2450, L503.6005, L500.4050, L300.8000, L100.0100 #### [facility] Laboratory [address] [place], [address] Platelets (Bld) [#/Vol] 265 10*3/uL Normal 150-450 [facility] Comment on above: Performed By: #### L 501.2450, L503.6005, L500.4050, L300.8000, L100.0100 #### [facility] Laboratory [address] [place], [address] RBC (Bld) [#/Vol] 4.82 10*6/uL Normal 4.2-5.4 [facility] Comment on above: Performed By: #### L 501.2450, L503.6005, L500.4050, L300.8000, L100.0100 #### [facility] Laboratory [address] [place], [address] RDW SD 43.7 fl Normal 35.1-43.9 [facility] Comment on above: Performed By: #### L 501.2450, L503.6005, L500.4050, L300.8000, L100.0100 #### [facility] Laboratory [address] [place], [address] WBC (Bld) [#/Vol] 16.1 10*3/uL High 4.4-11.0 [facility] Comment on above: Performed By: #### L 501.2450, L503.6005, L500.4050, L300.8000, L100.0100 #### [facility] Laboratory [address] [place], [address] Absolute Lymph 2.54 X10 3/uL Normal 0.83-4.51 [facility] Comment on above: Performed By: #### L 501.2450, L503.6005, L500.4050, L300.8000, L100.0100 #### [facility] Laboratory [address] [place], [address] Absolute Neut 18.9 X10 3/uL High 2.0-7.7 [facility] Comment on above: Performed By: #### L 501.2450, L503.6005, L500.4050, L300.8000, L100.0100 #### [facility] Laboratory [address] [place], [address] Basophils/100 WBC (Bld) 0.4 % Normal 0-1 [facility] Comment on above: Performed By: #### L 501.2450, L503.6005, L500.4050, L300.8000, L100.0100 #### [facility] Laboratory [address] [place], [address] Eosinophils/100 WBC (Bld) 0.3 % Normal 0-5 [facility] Comment on above: Performed By: #### L 501.2450, L503.6005, L500.4050, L300.8000, L100.0100 #### [facility] Laboratory [address] [place], [address] Erythrocyte distribution width (RBC) [Ratio] 13.3 % Normal 11.6-14.6 [facility] Comment on above: Performed By: #### L 501.2450, L503.6005, L500.4050, L300.8000, L100.0100 #### [facility] Laboratory [address] [place], [address] Hematocrit (Bld) [Volume fraction] 46.5 % Normal 37-47 [facility] Comment on above: Performed By: #### L 501.2450, L503.6005, L500.4050, L300.8000, L100.0100 #### [facility] Laboratory [address] [place], [address] Hemoglobin (Bld) [Mass/Vol] 15.9 g/dL High 12.0-15.0 [facility] Comment on above: Performed By: #### L 501.2450, L503.6005, L500.4050, L300.8000, L100.0100 #### [facility] Laboratory [address] [place], [address] IG% 0.400 Normal 0.0-0.9 [facility] Comment on above: Result Comment: IG% - Immature Granulocytes (promyelocytes, myelocytes and metamyelocytes) > 1% indicates that a LEFT SHIFT is Present. Performed By: #### L 501.2450, L503.6005, L500.4050, L300.8000, L100.0100 #### [facility] Laboratory [address] [place], [address] Lymphocytes/100 WBC (Bld) 11.1 % Low 19-41 [facility] Comment on above: Performed By: #### L 501.2450, L503.6005, L500.4050, L300.8000, L100.0100 #### [facility] Laboratory [address] [place], [address] MCH (RBC) [Entitic mass] 30.5 pg Normal 27.0-32.0 [facility] Comment on above: Performed By: #### L 501.2450, L503.6005, L500.4050, L300.8000, L100.0100 #### [facility] Laboratory [address] [place], [address] MCHC (RBC) [Mass/Vol] 34.2 g/dL Normal 32-36 [facility] Comment on above: Performed By: #### L 501.2450, L503.6005, L500.4050, L300.8000, L100.0100 #### [facility] Laboratory [address] [place], [address] MCV (RBC) [Entitic vol] 89.3 fL Normal 81-99 [facility] Comment on above: Performed By: #### L 501.2450, L503.6005, L500.4050, L300.8000, L100.0100 #### [facility] Laboratory [address] [place], [address] Monocytes/100 WBC (Bld) 5.4 % Normal 0-10 [facility] Comment on above: Performed By: #### L 501.2450, L503.6005, L500.4050, L300.8000, L100.0100 #### [facility] Laboratory [address] [place], [address] Neutrophils/100 WBC (Bld) 82.4 % High 47-70 [facility] Comment on above: Performed By: #### L 501.2450, L503.6005, L500.4050, L300.8000, L100.0100 #### [facility] Laboratory [address] [place], [address] Nucleated RBC (Bld) [#/Vol] 0 10*3/uL Normal 0-5 [facility] Comment on above: Performed By: #### L 501.2450, L503.6005, L500.4050, L300.8000, L100.0100 #### [facility] Laboratory [address] [place], [address] Platelet mean volume (Bld) [Entitic vol] 10.1 fL Normal 6.2-12.0 [facility] Comment on above: Performed By: #### L 501.2450, L503.6005, L500.4050, L300.8000, L100.0100 #### [facility] Laboratory [address] [place], [address] Platelets (Bld) [#/Vol] 281 10*3/uL Normal 150-450 [facility] Comment on above: Performed By: #### L 501.2450, L503.6005, L500.4050, L300.8000, L100.0100 #### [facility] Laboratory [address] [place], [address] RBC (Bld) [#/Vol] 5.21 10*6/uL Normal 4.2-5.4 [facility] Comment on above: Performed By: #### L 501.2450, L503.6005, L500.4050, L300.8000, L100.0100 #### [facility] Laboratory [address] [place], [address] RDW SD 43.3 fl Normal 35.1-43.9 [facility] Comment on above: Performed By: #### L 501.2450, L503.6005, L500.4050, L300.8000, L100.0100 #### [facility] Laboratory [address] [place], [address] WBC (Bld) [#/Vol] 22.9 10*3/uL High 4.4-11.0 [facility] Comment on above: Performed By: #### L 501.2450, L503.6005, L500.4050, L300.8000, L100.0100 #### [facility] Laboratory [address] [place], [address] CT Chest, Abd, Pel w/Contras ton 03-03-2025 CT Chest, Abd, Pel w/Contrast [facility] Imaging Services [address] [place] [address] CT Chest, Abd, Pel w/Contrast MR#: [id number] Acct: [id number] Name: ASHLEY GÓMEZ Rep #: [id number] : 1955 F 69 From: Ruddy Vidales MD PCP: Dr. Gasper Nelson, Status: REG ER Study: CT Chest, Abd, Pel w/Contrast Date of Exam: Exam# [id number] Ordering Dr: Abdulkadir Peralta DO PROCEDURE: CT [...] lung band atelectasis. Esophageal reflux. Reading Location: [place] [address] CC: Dr. Gasper Nelson ; Dr. Abdulkadir Peralta DO [employer]: Signed Normal [facility] Carbon dioxide, total [Moles /volume] in Central venous bloodOrdered By: Abdulkadir Peralta on 03-03-2025 CO2 [Moles/Vol] 24.4 mmol/L 21.0-32.0 [facility] Chloride assayOrdered By: Sol Peralta on 03-03-2025 Chloride [Moles/Vol] 97 mmol/L Low 98-108 [facility] Comprehensive Metabolic Prof ilon 03-03-2025 Albumin [Mass/Vol] 4.4 g/dL Normal 3.4-4.8 [facility] Comment on above: Performed By: #### L 501.2450, L503.6005, L500.4050, L300.8000, L100.0100 #### [facility] Laboratory [address] [place], [address] Albumin/Globulin [Mass ratio] 1.6 {ratio} Normal 0.9-2.4 [facility] Comment on above: Performed By: #### L 501.2450, L503.6005, L500.4050, L300.8000, L100.0100 #### [facility] Laboratory [address] [place], [address] ALK PHOS 78 U/L Normal 35-104 [facility] Comment on above: Performed By: #### L 501.2450, L503.6005, L500.4050, L300.8000, L100.0100 #### [facility] Laboratory [address] [place], [address] ALT [Catalytic activity/Vol] 40 U/L High <=34 [facility] Comment on above: Performed By: #### L 501.2450, L503.6005, L500.4050, L300.8000, L100.0100 #### [facility] Laboratory [address] [place], [address] AST [Catalytic activity/Vol] 40 U/L High <=31 [facility] Comment on above: Performed By: #### L 501.2450, L503.6005, L500.4050, L300.8000, L100.0100 #### [facility] Laboratory [address] [place], [address] Bilirubin [Mass/Vol] 0.78 mg/dL Normal 0.00-1.30 [facility] Comment on above: Performed By: #### L 501.2450, L503.6005, L500.4050, L300.8000, L100.0100 #### [facility] [facility] [address] [place], [address] BUN/CRE 33.1 RATIO High 10-20 [facility] Comment on above: Performed By: #### L 501.2450, L503.6005, L500.4050, L300.8000, L100.0100 #### [facility] [address] [place], [address] Calcium [Mass/Vol] 10.5 mg/dL Normal 7.6-11.0 [facility] Comment on above: Performed By: #### L 501.2450, L503.6005, L500.4050, L300.8000, L100.0100 #### [facility] [address] [place], [address] Chloride [Moles/Vol] 97 mmol/L Low 98-108 [facility] Comment on above: Performed By: #### L 501.2450, L503.6005, L500.4050, L300.8000, L100.0100 #### [facility] [address] [place], [address] CO2 [Moles/Vol] 24.4 mmol/L Normal 21.0-32.0 [facility] Comment on above: Performed By: #### L 501.2450, L503.6005, L500.4050, L300.8000, L100.0100 #### [facility] [address] [place], [address] Creatinine [Mass/Vol] 1.09 mg/dL Normal 0.70-1.20 [facility] Comment on above: Performed By: #### L 501.2450, L503.6005, L500.4050, L300.8000, L100.0100 #### [facility] [address] [place], [address] ECRCL 37.91 ml/min Low 50-250 [facility] Comment on above: Performed By: #### L 501.2450, L503.6005, L500.4050, L300.8000, L100.0100 #### [facility] [address] [place], [address] GAP 17 High 5-15 [facility] Comment on above: Performed By: #### L 501.2450, L503.6005, L500.4050, L300.8000, L100.0100 #### [facility] [address] [place], [address] GFR/1.73 sq M.predicted among non-blacks MDRD (S/P/Bld) [Vol rate/Area] 55 mL/min/{1.73_m2} Low >60 [facility] Comment on above: Result Comment: mL/m in/1.73m2 CKD-EPI Creatinine Equation (2020) Performed By: #### L 501.2450, L503.6005, L500.4050, L300.8000, L100.0100 #### [facility] [address] [place], [address] Globulin (S) [Mass/Vol] 2.7 g/dL Normal 2.2-4.2 [facility] Comment on above: Performed By: #### L 501.2450, L503.6005, L500.4050, L300.8000, L100.0100 #### [facility] [address] [place], [address] Glucose [Mass/Vol] 154 mg/dL High 70-99 [facility] Comment on above: Performed By: #### L 501.2450, L503.6005, L500.4050, L300.8000, L100.0100 #### [facility] [address] [place], [address] Potassium [Moles/Vol] 3.4 mmol/L Normal 3.3-5.1 [facility] Comment on above: Performed By: #### L 501.2450, L503.6005, L500.4050, L300.8000, L100.0100 #### [facility] [address] [place], [address] Sodium [Moles/Vol] 138 mmol/L Normal 133-145 [facility] Comment on above: Performed By: #### L 501.2450, L503.6005, L500.4050, L300.8000, L100.0100 #### [facility] [address] [place], [address] T PROT 7.0 g/dL Normal 5.9-8.4 [facility] Comment on above: Performed By: #### L 501.2450, L503.6005, L500.4050, L300.8000, L100.0100 #### [facility] [address] [place], [address] Urea nitrogen [Mass/Vol] 36 mg/dL High 4-19 [facility] Comment on above: Performed By: #### L 501.2450, L503.6005, L500.4050, L300.8000, L100.0100 #### [facility] [address] [place], [address] Albumin [Mass/Vol] 4.1 g/dL Normal 3.4-4.8 [facility] Comment on above: Performed By: #### L 501.2450, L503.6005, L500.4050, L300.8000, L100.0100 #### [facility] [address] [place], [address] Albumin/Globulin [Mass ratio] 1.7 {ratio} Normal 0.9-2.4 [facility] Comment on above: Performed By: #### L 501.2450, L503.6005, L500.4050, L300.8000, L100.0100 #### [facility] [address] [place], [address] ALK PHOS 73 U/L Normal 35-104 [facility] Comment on above: Performed By: #### L 501.2450, L503.6005, L500.4050, L300.8000, L100.0100 #### [facility] [address] [place], [address] ALT [Catalytic activity/Vol] 36 U/L High <=34 [facility] Comment on above: Performed By: #### L 501.2450, L503.6005, L500.4050, L300.8000, L100.0100 #### [facility] [address] [place], [address] AST [Catalytic activity/Vol] 37 U/L High <=31 [facility] Comment on above: Performed By: #### L 501.2450, L503.6005, L500.4050, L300.8000, L100.0100 #### [facility] [address] [place], [address] Bilirubin [Mass/Vol] 0.48 mg/dL Normal 0.00-1.30 [facility] Comment on above: Performed By: #### L 501.2450, L503.6005, L500.4050, L300.8000, L100.0100 #### [facility] [address] [place], [address] BUN/CRE 35.4 RATIO High 10-20 [facility] Comment on above: Performed By: #### L 501.2450, L503.6005, L500.4050, L300.8000, L100.0100 #### [facility] [address] [place], [address] Calcium [Mass/Vol] 9.8 mg/dL Normal 7.6-11.0 [facility] Comment on above: Performed By: #### L 501.2450, L503.6005, L500.4050, L300.8000, L100.0100 #### [facility] [address] [place], [address] Chloride [Moles/Vol] 101 mmol/L Normal 98-108 [facility] Comment on above: Performed By: #### L 501.2450, L503.6005, L500.4050, L300.8000, L100.0100 #### [facility] [address] [place], [address] CO2 [Moles/Vol] 26.0 mmol/L Normal 21.0-32.0 [facility] Comment on above: Performed By: #### L 501.2450, L503.6005, L500.4050, L300.8000, L100.0100 #### [facility] [address] [place], [address] Creatinine [Mass/Vol] 0.95 mg/dL Normal 0.70-1.20 [facility] Comment on above: Performed By: #### L 501.2450, L503.6005, L500.4050, L300.8000, L100.0100 #### [facility] [address] [place], [address] ECRCL 40.97 ml/min Low 50-250 [facility] Comment on above: Performed By: #### L 501.2450, L503.6005, L500.4050, L300.8000, L100.0100 #### [facility] [address] [place], [address] GAP 14 Normal 5-15 [facility] Comment on above: Performed By: #### L 501.2450, L503.6005, L500.4050, L300.8000, L100.0100 #### [facility] [address] [place], [address] GFR/1.73 sq M.predicted among non-blacks MDRD (S/P/Bld) [Vol rate/Area] 65 mL/min/{1.73_m2} Normal >60 [facility] Comment on above: Result Comment: mL/m in/1.73m2 CKD-EPI Creatinine Equation (2020) Performed By: #### L 501.2450, L503.6005, L500.4050, L300.8000, L100.0100 #### [facility] [address] [place], [address] Globulin (S) [Mass/Vol] 2.4 g/dL Normal 2.2-4.2 [facility] Comment on above: Performed By: #### L 501.2450, L503.6005, L500.4050, L300.8000, L100.0100 #### [facility] [address] [place], [address] Glucose [Mass/Vol] 144 mg/dL High 70-99 [facility] Comment on above: Performed By: #### L 501.2450, L503.6005, L500.4050, L300.8000, L100.0100 #### [facility] [address] [place], [address] Potassium [Moles/Vol] 3.5 mmol/L Normal 3.3-5.1 [facility] Comment on above: Performed By: #### L 501.2450, L503.6005, L500.4050, L300.8000, L100.0100 #### [facility] [address] [place], [address] Sodium [Moles/Vol] 141 mmol/L Normal 133-145 [facility] Comment on above: Performed By: #### L 501.2450, L503.6005, L500.4050, L300.8000, L100.0100 #### [facility] [address] [place], [address] T PROT 6.5 g/dL Normal 5.9-8.4 [facility] Comment on above: Performed By: #### L 501.2450, L503.6005, L500.4050, L300.8000, L100.0100 #### [facility] [address] [place], [address] Urea nitrogen [Mass/Vol] 34 mg/dL High 4-19 [facility] Comment on above: Performed By: #### L 501.2450, L503.6005, L500.4050, L300.8000, L100.0100 #### [facility] [address] [place], [address] D-Dimer Quantitative (DVT/PE )on 03-03-2025 D-DIMER QUANT 0.53 FEU/ug/m Invalid Interpretation Code 0.27-0.49 [facility] Comment on above: Result Comment: D-Di nikki ELEVATED (>0.49): Additional studies and clinical assessments are indicated to conclude diagnosis of: Deep Vein Thrombosis (DVT) or Pulmonary Embolism (PE) CRITICAL VALUE CALLED TO RBARTOLONE 03/03/25 0126 Jalen Jonas. RESULTS READ BACK BY SAME. Performed By: #### L 501.2450, L503.6005, L500.4050, L300.8000, L100.0100 #### [facility] Laboratory [address] [place], [address] EGD Reporton 03-03-2025 EGD Report [facility] Medical Records Department [address] [place] [address] EGD Report MR#: [id number] Acct: [id number] Name: ASHLEY GÓMEZ Rep #: [id number] : 1955 69 From: Slim Weiss DO [...] pathology results. Procedure Code(s): --- Professional --- 47983, Small intestinal endoscopy, enteroscopy beyond second portion of duodenum, not including ileum; with biopsy, single or multiple CPT copyright 2021 [employer]. All rights reserved. The codes documented in this report are preliminary and upon geology scientist review may be revised to meet current compliance requirements. Slim Weiss DO 03/03/2025 2:03:52 PM This report has been signed electronically. Number of Addenda: 0 Note Initiated On: 03/03/2025 1:55 PM 03/03/25 1404 Date Slim Friend Cosigner Signature: Date (if indicated) CC: Dr. Gasper Nelson DO; Slim Friend, Date Dictated: 03/03/25 1355 Date Transcribed: Resolute Professional: WES Signed Normal [facility] Echo Completeon 03-03-2025 Echo Complete [facility] [address] [facility] [place] [address] Echo Complete 03/03/25 0947 MR#: [id number] Acct: [id number] Name: ASHLEY GÓMEZ Rep #: [id number] : 1955 69 From: Elisabet Ponce MD Attending Dr: Dr. Bunny Avilez DO Status: A DM IN Ordering Dr: Tonja Jo MD Date: 03/03/25 Location: [facility] Sex: F C Admitted: 03/03/25 Reason For [...] DO Date Dictated: 03/03/25946 Date Transcribed: 03/03/251416 Resolute Professional: Signed Normal [facility] Echocardiogram study reportO rdered By: Elisabet Ponce on 03-03-2025 Study report [facility] [address] [place] [address] Echo Complete 03/03/25946 MR#: [id number] Acct: [id number] Name: ASHLEY GÓMEZ Rep #:[id number] : 1955 69 From: Elisabet Ponce MD Attending Dr: Dr. Bunny Avilez DO Status: ADM IN Ordering Dr: Tonja Jo MD Date: 03/03/25 Location: [facility] Sex: F C Admitted: 03/03/25 Reason For [...] Dictated: 03/03/25 0947 Date Transcribed: 03/03/25 1417 Resolute Professional: Signed [facility] Work Phone: Eosinophil percentageOrdered By: Abdulkadir Peralta on 03-03-2025 Eosinophils/100 WBC (Bld) 0.3 % 0-5 [facility] Erythrocyte distribution wid th ratioOrdered By: Abdulkadir Peralta on 03-03-2025 Erythrocyte distribution width (RBC) [Ratio] 13.3 % 11.6-14.6 [facility] Erythrocyte distribution wid th standard deviationOrdered By: Abdulkadir Peralta on 03-03-2025 Erythrocyte distribution width (RBC) [Ratio] 43.3 fl 35.1-43.9 [facility] Glomerular filtration rate ( GFR) estimation/1.73 sq m using serum, plasma, or whole bOrdered By: Abdulkadir Peralta on 03-03-2025 GFR/1.73 sq M.predicted among non-blacks MDRD (S/P/Bld) [Vol rate/Area] 55 mL/min/{1.73_m2} Low >60 [facility] Comment on above: mL/min/1.73m2 CKD-EP I Creatinine Equation (2020) H AND P Exam - [facility] 03-03-2025 H&P Exam - Hospitalist [facility] Medical Records Department [address] [place] [address] H P Exam - Hospitalist 03/03/25 0313 MR#: [id number] Acct: [id number] Name: ASHLEY GÓMEZ Rep #: [id number] : 1955 69 From: Tonja Jo MD PCP: Dr. Gasper Nelson DO Status:ADM IN Location: [facility] [id number] HPI - General General Date of Admission: [...] therapy of note who presents to the [facility] ED on 03/03/2025 with history of approximately 72 hours of onset of malaise, fatigue with nausea and emesis reportedly hospitalized in [place] however she left AMA to return to [facility] reporting that she has been having hematemesis [...] 1, promethazine 12.5 mg IM x 1. [facility] Medical History Hypokalemia Smoker Hypoxia COPD [...] none current occupational status: employed current occupation: [employer] Smoking Status: Current every day smoker tobacco type: cigarettes Tobacco: How many years used: 4 alcohol intake: former substance use type: does not use ROS ROS Narrative Admission Review of Systems: CONSTITUTIONAL: No weight loss, fever, chills, + weakness or fatigue. HEENT: Eyes: No visual loss, blurred vision, double vision or yellow sclerae. Ears, Nose, Throat: No hear (more content not included)... Normal [facility] Hematocrit Auto (Bld) [Volum e fraction]Ordered By: Abdulkadir Peralta on 03-03-2025 Hematocrit (Bld) [Volume fraction] 46.5 % 37-47 [facility] Hemoglobin measurementOrdere d By: Abdulkadir Peralta on 03-03-2025 Hemoglobin (Bld) [Mass/Vol] 15.9 g/dL High 12.0-15.0 [facility] Hyaline casts LM.LPF (Urine sed) [#/Area]Ordered By: [facility] on 03-03-2025 Hyaline casts (Urine sed) [#/Area] 0 /[LPF] 0-5 [facility] Immature granulocytes/100 WB C Auto (Bld)Ordered By: [facility] on 03-03-2025 Immature granulocytes/100 WBC (Bld) 0.400 % 0.0-0.9 [facility] Comment on above: IG% - Immature Granu locytes (promyelocytes, myelocytes and metamyelocytes) > 1% indicates that a LEFT SHIFT is Present. Ketones Test strip Ql (U)Ord ered By: [facility] on 03-03-2025 Ketones Ql (U) 50 mg/dl High Negative [facility] L499.0042on 03-03-2025 Trop T High Sen 93 ng/L Invalid Interpretation Code <=14 [facility] Comment on above: Result Comment: Crit ical Result(s) Called at: 03/03/2025-05:28 by: Siomara Jo to Sade Bonds.??Results read back by same. Critical Result(s) Called at: by:??Results read back by same. Performed By: #### L 501.2450, L503.6005, L500.4050, L300.8000, L100.0100 #### [facility] Laboratory [address] [place], [address] L499.0043on 03-03-2025 Trop T High Sen 88 ng/L Invalid Interpretation Code <=14 [facility] Comment on above: Result Comment: Crit ical Result(s) Called at 0650: by: ASHUTOSH WOMACK TO [facility]. ??Results read back by same. Performed By: #### L 501.2450, L503.6005, L500.4050, L300.8000, L100.0100 #### [facility] Laboratory [address] [place], [address] Trop T High Sen Normal <=14 [facility] Comment on above: Result Comment: Canc elled via OM: Order edited - Discontinuing original order Performed By: #### L 501.2450, L503.6005, L500.4050, L300.8000, L100.0100 #### [facility] Laboratory [address] [place], [address] L501.4021on 03-03-2025 Trop T High Sen 91 ng/L Invalid Interpretation Code <=14 [facility] Comment on above: Result Comment: Crit ical Result(s) Called at: 03/03/2025-02:22 by: Siomara Jo to Mitch Saenz.??Results read back by same. Performed By: #### L 501.2450, L503.6005, L500.4050, L300.8000, L100.0100 #### [facility] Laboratory [address] [place], [address] L509.7001on 03-03-2025 Procalcitonin 0.05 ng/mL Normal <=0.10 [facility] Comment on above: Result Comment: Inte rpretation: [...] L 501.2450, L503.6005, L500.4050, L300.8000, L100.0100 #### [facility] Laboratory [address] [place], [address] Laboratory - Chemistry and C hemistry - challengeOrdered By: Tonja Jo on 03-03-2025 AST [Catalytic activity/Vol] 37 U/L High <32 [facility] Laboratory - Chemistry and C hemistry - challengeOrdered By: Abdulkadir Peralta on 03-03-2025 AST [Catalytic activity/Vol] 40 U/L High <32 [facility] Lactic Acidon 03-03-2025 Lactate [Moles/Vol] mmol/L Normal 0.0-2.0 [facility] Comment on above: Performed By: #### L 503.6005 #### [facility] Laboratory [address] [place], [place], [address] Lactate [Moles/Vol] 2.4 mmol/L Invalid Interpretation Code 0.0-2.0 [facility] Comment on above: Order Comment: Y Result Comment: Crit ical Result(s) Called at: 03/03/2025-02:08 by: Siomara Chiu.??Results read back by same. Performed By: #### L 501.2450, L503.6005, L500.4050, L300.8000, L100.0100 #### [facility] Laboratory [address] [place], [place], [address] Lactic acid measurementOrder ed By: Abdulkadir Peralta on 03-03-2025 Lactate [Moles/Vol] mmol/L 0.0-2.0 [facility] Lactate [Moles/Vol] 2.4 mmol/L High 0.0-2.0 [facility] Comment on above: Critical Result(s) C alled at: 03/03/2025-02:08 by: Siomara Chiu. Results read back by same. Lipaseon 03-03-2025 Lipase [Catalytic activity/Vol] 18 U/L Normal 13-75 [facility] Comment on above: Result Comment: Brandon strong note: LIPASE revised reference range effective 22. New Lipase methodology. Expected to produce lower values than the previous assay method. NEW Reference Range: 13 - 75 U/L Performed By: #### L 501.2450, L503.6005, L500.4050, L300.8000, L100.0100 #### [facility] Laboratory [address] [place], [address] Lipase measurementOrdered By : Abdulkadir Peralta on 03-03-2025 Lipase [Catalytic activity/Vol] 18 U/L 13-75 [facility] Comment on above: Please note:LIPASE r evised reference range effective 22. New Lipase methodology. Expected to produce lower values than the previous assay method. NEW Reference Range: 13 - 75 U/L MCV (mean corpuscular volume ) determinationOrdered By: Abdulkadir Peralta on 03-03-2025 MCV (RBC) [Entitic vol] 89.3 fL 81-99 [facility] MR/POSTOP.ANEon 03-03-2025 MR[facility]POSTOP[facility] Medical Records Department [address] [place] [address] Anesthesia Postop Eval I 03/03/251407 MR#: [id number] Acct: [id number] Name: ASHLEY GÓMEZ Rep #: [id number] : 1955 69 From: Mack Stone CRNA PCP: Dr. Gasper Nelson, DO Status:ADM IN Y Race: C Location: [place] [address] Anesthesia: Postop Eval I Current Vital Signs Temperature: 99.4 F Pulse Rate: 91 Blood Pressure: 132/69 Respiratory Rate: 16 Pulse Ox: 99 Assessment Airway patent: Yes Spontaneous unlabored respirations: Yes nausea: No Vomiting: No Anesthesia Complication: No Fluid Hydration Crystalloid volume administer (ml): 200 Total IV fluid infused: 200 Progress Note Anesthesia document: Postop Eval 1 completed: Yes 03/03/251407 Date Mack Stone COOKY PACKER Cosigner Signature: Date CC: Signed Normal [facility] MR/[id number] 03-03-2025 MR/POSTOPAN2 [facility] Medical Records Department [address] [place] [address] Anesthesia Postop Eval II 03/03/25 1645 MR#: [id number] Acct: [id number] Name: ASHLEY GÓMEZ Rep #: [id number] : 1955 69 From: Peyton Christopher CRNA PCP: Dr. Gasper Nelson, DO Status:ADM IN Y Race: C Location: [place] [address] Anesthesia Postop Eval I Sum Postop Eval Completion status Anesthesia document: Postop Eval 1 completed: Yes Anesthesia Postop Eval I Summary Anesthesia Postop Eval I Summary: Anesthesia Postop Eval I: Assessment Summary Airway patent Yes 03/03/25 14:08 [email or web address] Spontaneous unlabored Yes 03/03/25 14:08 [email or web address] [email or web address] respirations Mental status nausea No 03/03/25 14:08 COOKY [email or web address] Vomiting No 03/03/25 14:08 COOKY [email or web address].[email or web address] Anesthesia Postop Eval I: Fluid Summary Crystalloid volume administer 200 03/03/25 14:08 [email or web address] (ml) Colloids volume administered ( ml) Blood Product volume administered (ml) Total IV fluid infused 200 03/03/25 14:08 [email or web address] Anesthesia Postop Eval I: Summary Notes Anesthesia Complication No 03/03/25 14:08 [email or web address] Anesthesia Complication Comment: Post-operative progress note Anesthesia: Postop Eval II Evaluation Mental status: Awake Pain Level: 1 nausea: No Vomiting: No 03/03/25 1646 Date Peyton Christopher COOKY PACKER Cosigner Signature: Date CC: Signed Normal [facility] Magnesiumon 03-03-2025 Magnesium [Mass/Vol] 2.0 mg/dL Normal 1.5-2.2 [facility] Comment on above: Order Comment: Comme nts: may add to ED labs Performed By: #### L 501.2450, L503.6005, L500.4050, L300.8000, L100.0100 #### [facility] Laboratory [address] [place], [address] Mean corpuscular hemoglobin (MCH) determinationOrdered By: Abdulkadir Peralta on 03-03-2025 MCH (RBC) [Entitic mass] 30.5 pg 27.0-32.0 [facility] Mean corpuscular hemoglobin concentration (MCHC) determinationOrdered By: Abdulkadir Peralta on 03-03-2025 MCHC (RBC) [Mass/Vol] 34.2 g/dL 32-36 [facility] Mean platelet volume determi nationOrdered By: Abdulkadir Peralat on 03-03-2025 Platelet mean volume (Bld) [Entitic vol] 10.1 fL 6.2-12.0 [facility] Microscopic analysis of urin e for red blood cells (RBC)Ordered By: Abdulkadir Peralta on 03-03-2025 Microscopic analysis of urine for red blood cells (RBC) 5-10 SEEN /hpf 0-5 [facility] Monocyte percentageOrdered B y: Abdulkadir Peralta on 03-03-2025 Monocytes/100 WBC (Bld) 5.4 % 0-10 [facility] Mucus LM Ql (Urine sed)Order ed By: Abdulkadir Peralta on 03-03-2025 Mucus Ql (Urine sed) 0 SEEN /hpf [facility] Neutrophil percentageOrdered By: Abdulkadir Peralta on 03-03-2025 Neutrophils/100 WBC (Bld) 82.4 % High 47-70 [facility] Nitrite Test strip Ql (U)Ord ered By: Abdulkadir Peralta on 03-03-2025 Nitrite Ql (U) Negative Negative [facility] Nucleated red blood cell per centageOrdered By: Abdulkadir Peralta on 03-03-2025 Nucleated RBC/100 WBC (Bld) [Ratio] 0 % 0-5 [facility] Platelet countOrdered By: Sol Peralta on 03-03-2025 Platelets (Bld) [#/Vol] 281 10*3/uL 150-450 [facility] Potassium measurement (mass/ volume)Ordered By: Abdulkadir Peralta on 03-03-2025 Potassium (Unsp spec) [Mass/Vol] 3.4 mmol/L 3.3-5.1 [facility] Procalcitonin [Mass/volume] in Serum or Plasma by ImmunoassayOrdered By: Tonja Jo on 03-03-2025 Procalcitonin IA [Mass/Vol] 0.05 ng/mL <0.11 [facility] Comment on above: Interpretation:<0.10 -0.25 ng/mL: Antibiotic [...] Protein Ql (U) 15 mg/dl High Negative [facility] RBC Auto (Bld) [#/Vol]Ordere d By: Abdulkadir Peralta on 03-03-2025 RBC (Bld) [#/Vol] 5.21 10*6/uL 4.2-5.4 [facility] RESPIRATORY PANEL MOLECULARo n 03-03-2025 RP PANEL ADENOVIRUS Not Detected INFLUENZA A Not Detected INFLUENZA A (SUBTYPE H1) Not Detected INFLUENZA A (SUBTYPE H3) Not Detected INFLUENZA B Not Detected HUMAN METAPHNEUMO Not Detected PARAINFLUENZA 1 Not Detected PARAINFLUENZA 2 Not Detected PARAINFLUENZA 3 Not Detected PARAINFLUENZA 4 Not Detected RHINOVIRUS Not Detected RSV A Not Detected RSV B Not Detected Normal [facility] Comment on above: Performed By: #### L 501.8180, L503.6005, L500.4050, L300.8000, L100.0100 #### [facility] Laboratory [address] [place], [address] Respiratory pathogens detect ion panel by molecular detection methodOrdered By: Tonja Jo on 03-03-2025 Respiratory pathogens DNA and RNA panel SHYLA+probe (Resp) [facility] Serum creatinine measurement (mass/volume)Ordered By: Abdulkadir Peralta on 03-03-2025 Creatinine [Mass/Vol] 1.09 mg/dL 0.70-1.20 [facility] Serum globulin measurementOr dered By: Tonja Jo on 03-03-2025 Globulin (S) [Mass/Vol] 2.4 g/dL 2.2-4.2 [facility] Serum globulin measurementOr dered By: Abdulkadir Peralta on 03-03-2025 Globulin (S) [Mass/Vol] 2.7 g/dL 2.2-4.2 [facility] Serum glucose measurement (m ass/volume)Ordered By: Abdulkadir Peralta on 03-03-2025 Glucose [Mass/Vol] 154 mg/dL High 70-99 [facility] Serum or plasma alanine marin otransferase (ALT) measurementOrdered By: Tonja Jo on 03-03-2025 ALT [Catalytic activity/Vol] 36 U/L High <35 [facility] Serum or plasma alanine marin otransferase (ALT) measurementOrdered By: Abdulkadir Peralta on 03-03-2025 ALT [Catalytic activity/Vol] 40 U/L High <35 [facility] Serum or plasma albumin janneth urement (mass/volume)Ordered By: Tonja Jo on 03-03-2025 Albumin [Mass/Vol] 4.1 g/dL 3.4-4.8 [facility] Serum or plasma albumin janneth urement (mass/volume)Ordered By: Abdulkadir Peralta on 03-03-2025 Albumin [Mass/Vol] 4.4 g/dL 3.4-4.8 [facility] Serum or plasma albumin/glob ulin mass ratioOrdered By: Tonja Jo on 03-03-2025 Albumin/Globulin [Mass ratio] 1.7 {ratio} 0.9-2.4 [facility] Serum or plasma albumin/glob ulin mass ratioOrdered By: Abdulkadir Ungrachel on 03-03-2025 Albumin/Globulin [Mass ratio] 1.6 {ratio} 0.9-2.4 [facility] Serum or plasma alkaline robert sphatase measurementOrdered By: Tonja Jo on 03-03-2025 ALP [Catalytic activity/Vol] 73 U/L 35-104 [facility] Serum or plasma alkaline robert sphatase measurementOrdered By: Remus Puentesrachel on 03-03-2025 ALP [Catalytic activity/Vol] 78 U/L 35-104 [facility] Serum or plasma calcium janneth urement (mass/volume)Ordered By: Remus Ungur on 03-03-2025 Calcium [Mass/Vol] 10.5 mg/dL 7.6-11.0 [facility] Serum or plasma urea nitroge n measurement (mass/volume)Ordered By: Remus Ungur on 03-03-2025 Urea nitrogen [Mass/Vol] 36 mg/dL High 4-19 [facility] Sodium levelOrdered By: Remu s Ungrachel on 03-03-2025 Sodium [Moles/Vol] 138 mmol/L 133-145 [facility] Squamous epithelial cells de tection in urine sediment by light microscopyOrdered By: Remus Ungrachel on 03-03-2025 Epithelial cells.squamous LM Ql (Urine sed) 0-5 SEEN /hpf 5-10 [facility] Total proteinOrdered By: Hyacinth Jo on 03-03-2025 Protein [Mass/Vol] 6.5 g/dL 5.9-8.4 [facility] Total proteinOrdered By: Rem us Peralta on 03-03-2025 Protein [Mass/Vol] 7.0 g/dL 5.9-8.4 [facility] Troponin T.cardiac [Mass/vol ume] in Serum or Plasma by High sensitivity methodOrdered By: Tonja Jo on 03-03-2025 Troponin T.cardiac High sensitivity method [Mass/Vol] 88 ng/L High <14 [facility] Comment on above: Critical Result(s) C alled at 0650: by: ASHUTOSH WOMACK TO RHYS. Results read back by same. Troponin T.cardiac [Mass/vol ume] in Serum or Plasma by High sensitivity methodOrdered By: Abdulkadir Peralta on 03-03-2025 Troponin T.cardiac High sensitivity method [Mass/Vol] 93 ng/L High <14 [facility] Comment on above: Critical Result(s) C alled at: 03/03/2025-05:28 by: Siomara Jo to Sade Bonds. Results read back by same.Critical Result(s) Called at: by: Results read back by same. Troponin T.cardiac High sensitivity method [Mass/Vol] 91 ng/L High <14 [facility] Comment on above: Critical Result(s) C alled at: 03/03/2025-02:22 by: Siomara Jo to Mitch Saenz. Results read back by same. Urinalysis, Completeon 03-03 CAST,HYALINE 0-5 SEEN Normal 0-5 [facility] Comment on above: Order Comment: COLLE CTOR TO SPECIFY Performed By: #### L 501.2450, L503.6005, L500.4050, L300.8000, L100.0100 #### [facility] Laboratory [address] [place], [address] EPI,SQUAMOUS 0-5 SEEN Normal 5-10 [facility] Comment on above: Order Comment: COLLE CTOR TO SPECIFY Performed By: #### L 501.2450, L503.6005, L500.4050, L300.8000, L100.0100 #### [facility] [address] [place], [address] RBC 5-10 SEEN Normal 0-5 [facility] Comment on above: Order Comment: COLLE CTOR TO SPECIFY Performed By: #### L 501.2450, L503.6005, L500.4050, L300.8000, L100.0100 #### [facility] [address] [place], [address] WBC 0-5 SEEN Normal 0-5 [facility] Comment on above: Order Comment: COLLE CTOR TO SPECIFY Performed By: #### L 501.2450, L503.6005, L500.4050, L300.8000, L100.0100 #### [facility] [address] [place], [address] BILIRUBIN URINE Negative Normal Negative [facility] Comment on above: Order Comment: COLLE CTOR TO SPECIFY Performed By: #### L 501.2450, L503.6005, L500.4050, L300.8000, L100.0100 #### [facility] [address] [place], [address] Clarity (U) Clear Normal Clear [facility] Comment on above: Order Comment: COLLE CTOR TO SPECIFY Performed By: #### L 501.2450, L503.6005, L500.4050, L300.8000, L100.0100 #### [facility] [address] [place], [address] Color (U) Yellow Normal Yellow [facility] Comment on above: Order Comment: COLLE CTOR TO SPECIFY Performed By: #### L 501.2450, L503.6005, L500.4050, L300.8000, L100.0100 #### [facility] [address] [place], [address] GLUCOSE, UR Normal Normal Normal [facility] Comment on above: Order Comment: COLLE CTOR TO SPECIFY Performed By: #### L 501.2450, L503.6005, L500.4050, L300.8000, L100.0100 #### [facility] [address] [place], [address] KETONE UR 50 mg/dl Abnormal Negative [facility] Comment on above: Order Comment: COLLE CTOR TO SPECIFY Performed By: #### L 501.2450, L503.6005, L500.4050, L300.8000, L100.0100 #### [facility] [address] [place], [address] LEUK ESTERASE Negative Normal Negative [facility] Comment on above: Order Comment: COLLE CTOR TO SPECIFY Performed By: #### L 501.2450, L503.6005, L500.4050, L300.8000, L100.0100 #### [facility] [address] [place], [address] Nitrite Ql (U) Negative Normal Negative [facility] Comment on above: Order Comment: COLLE CTOR TO SPECIFY Performed By: #### L 501.2450, L503.6005, L500.4050, L300.8000, L100.0100 #### [facility] [address] [place], [address] OCCULT BLOOD-UR 10 /ul Abnormal Negative [facility] Comment on above: Order Comment: REBECCA CTOR TO SPECIFY Performed By: #### L 501.2450, L503.6005, L500.4050, L300.8000, L100.0100 #### [facility] [address] [place], [address] pH UR 6.0 Normal 5.0 - 8.0 [facility] Comment on above: Order Comment: REBECCA CTOR TO SPECIFY Performed By: #### L 501.2450, L503.6005, L500.4050, L300.8000, L100.0100 #### [facility] [address] [place], [address] PROT DIPSTX 15 mg/dl Abnormal Negative [facility] Comment on above: Order Comment: REBECCA CTOR TO SPECIFY Performed By: #### L 501.2450, L503.6005, L500.4050, L300.8000, L100.0100 #### [facility] [address] [place], [address] SP.GR. DIPSTX 1.015 Normal 1.002-1.030 [facility] Comment on above: Order Comment: REBECCA CTOR TO SPECIFY Performed By: #### L 501.2450, L503.6005, L500.4050, L300.8000, L100.0100 #### [facility] [address] [place], [address] UROBILI Normal Normal Normal [facility] Comment on above: Order Comment: REBECCA CTOR TO SPECIFY Performed By: #### L 501.2450, L503.6005, L500.4050, L300.8000, L100.0100 #### [facility] [address] [place], [address] BACTERIA 0 SEEN Normal None Seen [facility] Comment on above: Order Comment: ERBECCA CTOR TO SPECIFY Performed By: #### L 501.2450, L503.6005, L500.4050, L300.8000, L100.0100 #### [facility] [address] [place], [address] Mucus Ql (Urine sed) 0 SEEN Normal [facility] Comment on above: Order Comment: REBECCA CTOR TO SPECIFY Performed By: #### L 501.2450, L503.6005, L500.4050, L300.8000, L100.0100 #### [facility] [address] [place], [address] Urine clarityOrdered By: Katrina Peralta on 03-03-2025 Clarity (U) Clear Clear [facility] Urine color determinationOrd ered By: Abdulkadir Peralta on 03-03-2025 Color (U) Yellow Yellow [facility] Urine glucose detectionOrder ed By: Abdulkadir Peralta on 03-03-2025 Glucose Ql (U) Normal mg/dl Normal [facility] Urine leukocyte esterase det ection by dipstickOrdered By: Abdulkadir Peralta on 03-03-2025 Leukocyte esterase Test strip Ql (U) Negative Negative [facility] Urine pHOrdered By: Abdulkadir Un gur on 03-03-2025 pH (U) 6.0 [pH] 5.0 - 8.0 [facility] Urine sediment bacteria coun t by microscopy (number/high power field)Ordered By: Abdulkadir Peralta on 03-03-2025 Bacteria LM.HPF (Urine sed) [#/Area] 0 /[HPF] None Seen [facility] Urine specific gravity measu rementOrdered By: Abdulkadir Peralta on 03-03-2025 Specific gravity (U) [Rel density] 1.015 1.002-1.030 [facility] Urine urobilinogen measureme ntOrdered By: Abdulkadir Peralta on 03-03-2025 Urobilinogen Ql (U) Normal mg/dl Normal [facility] White blood cell (WBC) count Ordered By: Abdulkadir Peralta on 03-03-2025 WBC (Bld) [#/Vol] 22.9 10*3/uL High 4.4-11.0 [facility] White blood cell countOrdere d By: Abdulkadir Peralta on 03-03-2025 White blood cell count 0-5 SEEN /hpf 0-5 [facility] 12 Lead EKGon 03-02-2025 12 Lead EKG [facility] Cardiovascular Services [address] [place] [address] 12 Lead EKG 03/02/25 2340 MR#: [id number] Acct: [id number] Name: ASHLEY GÓMEZ Rep #: [id number] : 1955 69 From: Ezequiel Gusman MD Attending Dr: Dr. Bunny Avilez DO Status: A DM IN Ordering Dr: Abdulkadir Peralta DO Date: 03/02/25 Location: [facility] Sex: F C Admitted: 03/03/25 Test Reason [...] ECG Confirmed by MURTAZA CHISHOLM, EZEQUIEL ([id number]), video news editor OSWALD ROSA ([id number]) on 03/04/2025 6:37:00 AM Referred By: KEVIN Confirmed By: EZEQUIEL GUSMAN MD 03/04/25 0637 Date Ezequiel Gusman MD CC: Dr. Gasper Nelson DO; Dr. Bunny Avilez DO; Dr. Abdulkadir Peralta DO Signed Normal [facility] Chest 1 View (Portable)on Chest 1 View (Portable) [facility] Imaging Services [address] [place] [address] Chest 1 View (Portable) MR#: [id number] Acct: [id number] Name: ASHLEY GÓMEZ Rep #: [id number] : 1955 F 69 From: Ruddy Vidales MD PCP: Dr. Gasper Nelson DO Status: REG ER Study: Chest 1 View (Portable) Date of Exam: 03/02/25 Exam# [id number] Ordering Dr: Abdulkadir Peralta DO PROCEDURE: CHEST 1 VIEW (PORTABLE) 03/03/2025 REASON FOR EXAM: DYSPNEA TECHNIQUE: Frontal view of the chest. COMPARISON: 02/15/2025 FINDINGS: Scoliosis. Normal heart size. Well inflated lungs. No consolidation, effusion, or pneumothorax. RAD/Chest 1 View (Portable) IMPRESSION: No acute chest findings Reading Location: [place] [address] CC: Dr. Gasper Nelson DO; Dr. Abdulkadir Peralta DO Resolute Professional: Signed Normal [facility] Emergency Department Summary on 03-02-2025 Emergency Department Summary [facility] Medical Records Department [address] [place] [address] Emergency Department Summary 03/02/25 MR#: [id number] Acct: [id number] Name: ASHLEY GÓMEZ Rep #: [id number] : 1955 69 From: Abdulkadir Peralta DO PCP: Dr. Gasper Nelson DO Status:ADM IN Location: [address] History of Present Illness Chief Complaint: Chest Pain Detail of Chief Complaint: Chest pain and not feeling well Informant: patient Narrative Narrative: Patient presents to the emergency department via EMS with multiple complaints. She states that she was recently in [place] 2 days ago when she started getting [...] wear home O2. She denies any diarrhea. [facility] Medical History Hypokalemia Smoker Hypoxia COPD exacerbation [...] none current occupational status: employed current occupation: [employer] Smoking Status: Current every day smoker tobacco [...] Method Room (more content not included)... Normal [facility] 36on 02-24-2025 36 Recent Visits Date Type [...] labs completed in chart? N/A Normal [facility] Anion gap in Serum or Plasma Ordered By: Bunny Avilez on 02-17-2025 Anion gap [Moles/Vol] 12 mmol/L 01-16 [facility] BUN/creatinine ratioOrdered By: Bunny Avilez on 02-17-2025 Urea nitrogen/Creatinine [Mass ratio] 34.6 mg/mg High 06-23 [facility] Basic Metabolic Profile (BMP )on 02-17-2025 BUN/CRE 34.6 RATIO High 06-23 [facility] Comment on above: Performed By: #### L 501.2450, L503.6005, L500.4050, L300.8000, L100.0100 #### [facility] Laboratory [address] [place], [address] Calcium [Mass/Vol] 9.9 mg/dL Normal 7.6-11.0 [facility] Comment on above: Performed By: #### L 501.2450, L503.6005, L500.4050, L300.8000, L100.0100 #### [facility] Laboratory [address] [place], [address] Chloride [Moles/Vol] 103 mmol/L Normal 98-108 [facility] Comment on above: Performed By: #### L 501.2450, L503.6005, L500.4050, L300.8000, L100.0100 #### [facility] Laboratory [address] [place], [address] CO2 [Moles/Vol] 25.7 mmol/L Normal 21.0-32.0 [facility] Comment on above: Performed By: #### L 501.2450, L503.6005, L500.4050, L300.8000, L100.0100 #### [facility] Laboratory [address] [place], [address] Creatinine [Mass/Vol] 0.68 mg/dL Low 0.70-1.20 [facility] Comment on above: Performed By: #### L 501.2450, L503.6005, L500.4050, L300.8000, L100.0100 #### [facility] Laboratory [address] [place], [address] ECRCL 53.82 ml/min Normal 50-250 [facility] Comment on above: Performed By: #### L 501.2450, L503.6005, L500.4050, L300.8000, L100.0100 #### [facility] Laboratory [address] [place], [address] GAP 12 Normal 5-15 [facility] Comment on above: Performed By: #### L 501.2450, L503.6005, L500.4050, L300.8000, L100.0100 #### [facility] Laboratory [address] [place], [address] GFR/1.73 sq M.predicted among non-blacks MDRD (S/P/Bld) [Vol rate/Area] 94 mL/min/{1.73_m2} Normal >60 [facility] Comment on above: Result Comment: mL/m in/1.73m2 CKD-EPI Creatinine Equation (2020) Performed By: #### L 501.2450, L503.6005, L500.4050, L300.8000, L100.0100 #### [facility] Laboratory [address] [place], [address] Glucose [Mass/Vol] 102 mg/dL High 70-99 [facility] Comment on above: Performed By: #### L 501.2450, L503.6005, L500.4050, L300.8000, L100.0100 #### [facility] Laboratory [address] [place], [address] Potassium [Moles/Vol] 4.4 mmol/L Normal 3.3-5.1 [facility] Comment on above: Performed By: #### L 501.2450, L503.6005, L500.4050, L300.8000, L100.0100 #### [facility] [address] [place], [address] Sodium [Moles/Vol] 140 mmol/L Normal 133-145 [facility] Comment on above: Performed By: #### L 501.2450, L503.6005, L500.4050, L300.8000, L100.0100 #### [facility] Laboratory [address] [place], [address] Urea nitrogen [Mass/Vol] 23 mg/dL High 4-19 [facility] Comment on above: Performed By: #### L 501.2450, L503.6005, L500.4050, L300.8000, L100.0100 #### [facility] [address] [place], [address] Carbon dioxide, total [Moles /volume] in Central venous bloodOrdered By: Bunny Avilez on 02-17-2025 CO2 [Moles/Vol] 25.7 mmol/L 21.0-32.0 [facility] Chloride assayOrdered By: Malaika Avilez on 02-17-2025 Chloride [Moles/Vol] 103 mmol/L 98-108 [facility] Discharge Instructionon 02-02 Discharge Instruction [facility] Medical Records Department [address] [place] [address] Instructions for Home/Discharge Instructions 02/17/25 1052 MR#: [id number] Acct: [id number] Name: ASHLEY GÓMEZ Rep #: [id number] : 1955 69 From: Bunny Avilez DO [...] CC: Dr. Danish Davila DO Signed Normal [facility] Glomerular filtration rate ( GFR) estimation/1.73 sq m using serum, plasma, or whole bOrdered By: Bunny Avilez on 02-17-2025 GFR/1.73 sq M.predicted among non-blacks MDRD (S/P/Bld) [Vol rate/Area] 94 mL/min/{1.73_m2} >60 [facility] Comment on above: mL/min/1.73m2 CKD-EP I Creatinine Equation (2020) Potassium measurement (mass/ volume)Ordered By: Bunny Avilez on 02-17-2025 Potassium (Unsp spec) [Mass/Vol] 4.4 mmol/L 3.3-5.1 [facility] Serum creatinine measurement (mass/volume)Ordered By: Bunny Avilez on 02-17-2025 Creatinine [Mass/Vol] 0.68 mg/dL Low 0.70-1.20 [facility] Serum glucose measurement (m ass/volume)Ordered By: Bunny Avilez on 02-17-2025 Glucose [Mass/Vol] 102 mg/dL High 70-99 [facility] Serum or plasma calcium janneth urement (mass/volume)Ordered By: Bunny Avilez on 02-17-2025 Calcium [Mass/Vol] 9.9 mg/dL 7.6-11.0 [facility] Serum or plasma urea nitroge n measurement (mass/volume)Ordered By: Bunny Avilez on 02-17-2025 Urea nitrogen [Mass/Vol] 23 mg/dL High 4-19 [facility] Sodium levelOrdered By: Bunny Avilez on 02-17-2025 Sodium [Moles/Vol] 140 mmol/L 133-145 [facility] Basic Metabolic Profile (BMP )on 02-16-2025 BUN/CRE 28.6 RATIO High 10-20 [facility] Comment on above: Performed By: #### L 501.2450, L503.6005, L500.4050, L300.8000, L100.0100 #### [facility] [address] [place], [address] Calcium [Mass/Vol] 10.4 mg/dL Normal 7.6-11.0 [facility] Comment on above: Performed By: #### L 501.2450, L503.6005, L500.4050, L300.8000, L100.0100 #### [facility] Laboratory [address] [place], [address] Chloride [Moles/Vol] 106 mmol/L Normal 98-108 [facility] Comment on above: Performed By: #### L 501.2450, L503.6005, L500.4050, L300.8000, L100.0100 #### [facility] Laboratory [address] [place], [address] CO2 [Moles/Vol] 24.1 mmol/L Normal 21.0-32.0 [facility] Comment on above: Performed By: #### L 501.2450, L503.6005, L500.4050, L300.8000, L100.0100 #### [facility] Laboratory [address] [place], [address] Creatinine [Mass/Vol] 0.68 mg/dL Low 0.70-1.20 [facility] Comment on above: Performed By: #### L 501.2450, L503.6005, L500.4050, L300.8000, L100.0100 #### [facility] Laboratory [address] [place], [address] ECRCL 53.82 ml/min Normal 50-250 [facility] Comment on above: Performed By: #### L 501.2450, L503.6005, L500.4050, L300.8000, L100.0100 #### [facility] Laboratory [address] [place], [address] GAP 12 Normal 5-15 [facility] Comment on above: Performed By: #### L 501.2450, L503.6005, L500.4050, L300.8000, L100.0100 #### [facility] Laboratory [address] [place], [address] GFR/1.73 sq M.predicted among non-blacks MDRD (S/P/Bld) [Vol rate/Area] 94 mL/min/{1.73_m2} Normal >60 [facility] Comment on above: Result Comment: mL/m in/1.73m2 CKD-EPI Creatinine Equation (2020) Performed By: #### L 501.2450, L503.6005, L500.4050, L300.8000, L100.0100 #### [facility] Laboratory [address] [place], [address] Glucose [Mass/Vol] 110 mg/dL High 70-99 [facility] Comment on above: Performed By: #### L 501.2450, L503.6005, L500.4050, L300.8000, L100.0100 #### [facility] [address] [place], [address] Potassium [Moles/Vol] 5.5 mmol/L High 3.3-5.1 [facility] Comment on above: Result Comment: Hemo lysis present, Results??could be affected. ?? Performed By: #### L 501.2450, L503.6005, L500.4050, L300.8000, L100.0100 #### [facility] [address] [place], [address] Sodium [Moles/Vol] 142 mmol/L Normal 133-145 [facility] Comment on above: Performed By: #### L 501.2450, L503.6005, L500.4050, L300.8000, L100.0100 #### [facility] [facility] [address] [place], [address] Urea nitrogen [Mass/Vol] 19 mg/dL Normal 4-19 [facility] Comment on above: Performed By: #### L 501.2450, L503.6005, L500.4050, L300.8000, L100.0100 #### [facility] Laboratory [address] [place], [address] 12 Lead EKGon 02-15-2025 12 Lead EKG [facility] Cardiovascular Services [address] [place] [address] 12 Lead EKG 02/15/25 0839 MR#: [id number] Acct: [id number] Name: ASHLEY GÓMEZ Rep #: [id number] : 1955 69 From: Ezequiel Gusman MD [...] Normal ECG Confirmed by MURTAZA CHISHOLM, EZEQUIEL ([id number]), video news editor TIFFANI BENZ ([id number]) on 02/18/2025 8:22:27 AM Referred By: JOMAR Confirmed By: EZEQUIEL GUSMAN MD 02/18/25821 Date Ezequiel Gusman MD CC: Dr. Wilfred Bryan MD; Dr. Bunny Avilez DO; Dr. Danish Davila DO Signed Normal [facility] Absolute lymphocyte countOrd ered By: Wilfred Bryan on 02-15-2025 Lymphocytes Auto (Unsp spec) [#/Vol] 1.81 10*3/uL 0.83-4.51 [facility] Absolute neutrophil countOrd ered By: Wilfred Bryan on 02-15-2025 Neutrophils (Bld) [#/Vol] 7.2 10*3/uL 2.0-7.7 [facility] Anion gap in Serum or Plasma Ordered By: Wilfred Bryan on 02-15-2025 Anion gap [Moles/Vol] 13 mmol/L 5-15 [facility] Automated lymphocyte count a s percentage of total leukocytesOrdered By: Wilfred Bryan on 02-15-2025 Lymphocytes/100 WBC Auto (Unsp spec) 19.2 % 19-41 [facility] BUN/creatinine ratioOrdered By: Wilfred Bryan on 02-15-2025 Urea nitrogen/Creatinine [Mass ratio] 22.4 mg/mg High 10-20 [facility] Basic Metabolic Profile (BMP )on 02-15-2025 BUN/CRE 22.4 RATIO High 10-20 [facility] Comment on above: Performed By: #### L 501.2450, L503.6005, L500.4050, L300.8000, L100.0100 #### [facility] Laboratory [address] [place], [address] Calcium [Mass/Vol] 9.8 mg/dL Normal 7.6-11.0 [facility] Comment on above: Performed By: #### L 501.2450, L503.6005, L500.4050, L300.8000, L100.0100 #### [facility] Laboratory [address] [place], [address] Chloride [Moles/Vol] 101 mmol/L Normal 98-108 [facility] Comment on above: Performed By: #### L 501.2450, L503.6005, L500.4050, L300.8000, L100.0100 #### [facility] Laboratory [address] [place], [address] CO2 [Moles/Vol] 26.3 mmol/L Normal 21.0-32.0 [facility] Comment on above: Performed By: #### L 501.2450, L503.6005, L500.4050, L300.8000, L100.0100 #### [facility] Laboratory [address] [place], [address] Creatinine [Mass/Vol] 0.75 mg/dL Normal 0.70-1.20 [facility] Comment on above: Performed By: #### L 501.2450, L503.6005, L500.4050, L300.8000, L100.0100 #### [facility] Laboratory [address] [place], [address] ECRCL 53.51 ml/min Normal 50-250 [facility] Comment on above: Performed By: #### L 501.2450, L503.6005, L500.4050, L300.8000, L100.0100 #### [facility] Laboratory [address] [place], [address] GAP 13 Normal 5-15 [facility] Comment on above: Performed By: #### L 501.2450, L503.6005, L500.4050, L300.8000, L100.0100 #### [facility] Laboratory [address] [place], [address] GFR/1.73 sq M.predicted among non-blacks MDRD (S/P/Bld) [Vol rate/Area] 86 mL/min/{1.73_m2} Normal >60 [facility] Comment on above: Result Comment: mL/m in/1.73m2 CKD-EPI Creatinine Equation (2020) Performed By: #### L 501.2450, L503.6005, L500.4050, L300.8000, L100.0100 #### [facility] Laboratory [address] [place], [address] Glucose [Mass/Vol] 136 mg/dL High 70-99 [facility] Comment on above: Performed By: #### L 501.2450, L503.6005, L500.4050, L300.8000, L100.0100 #### [facility] Laboratory [address] [place], [address] Potassium [Moles/Vol] 3.2 mmol/L Low 3.3-5.1 [facility] Comment on above: Performed By: #### L 501.2450, L503.6005, L500.4050, L300.8000, L100.0100 #### [facility] [address] [place], [address] Sodium [Moles/Vol] 140 mmol/L Normal 133-145 [facility] Comment on above: Performed By: #### L 501.2450, L503.6005, L500.4050, L300.8000, L100.0100 #### [facility] [address] [place], [address] Urea nitrogen [Mass/Vol] 17 mg/dL Normal 4-19 [facility] Comment on above: Performed By: #### L 501.2450, L503.6005, L500.4050, L300.8000, L100.0100 #### [facility] Laboratory [address] [place], [address] Basophil percentageOrdered B y: Wilfred Bryan on 02-15-2025 Basophils/100 WBC (Bld) 1.0 % 0-1 [facility] CBC W/Diff, Automatedon 02-02 Absolute Lymph 1.81 X10 3/uL Normal 0.83-4.51 [facility] Comment on above: Performed By: #### L 501.2450, L503.6005, L500.4050, L300.8000, L100.0100 #### [facility] Laboratory [address] [place], [address] Absolute Neut 7.2 X10 3/uL Normal 2.0-7.7 [facility] Comment on above: Performed By: #### L 501.2450, L503.6005, L500.4050, L300.8000, L100.0100 #### [facility] Laboratory [address] [place], [address] Basophils/100 WBC (Bld) 1.0 % Normal 0-1 [facility] Comment on above: Performed By: #### L 501.2450, L503.6005, L500.4050, L300.8000, L100.0100 #### [facility] Laboratory [address] [place], [address] Eosinophils/100 WBC (Bld) 0.7 % Normal 0-5 [facility] Comment on above: Performed By: #### L 501.2450, L503.6005, L500.4050, L300.8000, L100.0100 #### [facility] Laboratory [address] [place], [address] Erythrocyte distribution width (RBC) [Ratio] 13.2 % Normal 11.6-14.6 [facility] Comment on above: Performed By: #### L 501.2450, L503.6005, L500.4050, L300.8000, L100.0100 #### [facility] Laboratory [address] [place], [address] Hematocrit (Bld) [Volume fraction] 41.5 % Normal 37-47 [facility] Comment on above: Performed By: #### L 501.2450, L503.6005, L500.4050, L300.8000, L100.0100 #### [facility] Laboratory [address] [place], [address] Hemoglobin (Bld) [Mass/Vol] 13.6 g/dL Normal 12.0-15.0 [facility] Comment on above: Performed By: #### L 501.2450, L503.6005, L500.4050, L300.8000, L100.0100 #### [facility] [address] [place], [address] IG% 0.200 Normal 0.0-0.9 [facility] Comment on above: Result Comment: IG% - Immature Granulocytes (promyelocytes, myelocytes and metamyelocytes) > 1% indicates that a LEFT SHIFT is Present. Performed By: #### L 501.2450, L503.6005, L500.4050, L300.8000, L100.0100 #### [facility] [address] [place], [address] Lymphocytes/100 WBC (Bld) 19.2 % Normal 19-41 [facility] Comment on above: Performed By: #### L 501.2450, L503.6005, L500.4050, L300.8000, L100.0100 #### [facility] [address] [place], [address] MCH (RBC) [Entitic mass] 29.9 pg Normal 27.0-32.0 [facility] Comment on above: Performed By: #### L 501.2450, L503.6005, L500.4050, L300.8000, L100.0100 #### [facility] Laboratory [address] [place], [address] MCHC (RBC) [Mass/Vol] 32.8 g/dL Normal 32-36 [facility] Comment on above: Performed By: #### L 501.2450, L503.6005, L500.4050, L300.8000, L100.0100 #### [facility] Laboratory [address] [place], [address] MCV (RBC) [Entitic vol] 91.2 fL Normal 81-99 [facility] Comment on above: Performed By: #### L 501.2450, L503.6005, L500.4050, L300.8000, L100.0100 #### [facility] [address] [place], [address] Monocytes/100 WBC (Bld) 1.9 % Normal 0-10 [facility] Comment on above: Performed By: #### L 501.2450, L503.6005, L500.4050, L300.8000, L100.0100 #### [facility] [address] [place], [address] Neutrophils/100 WBC (Bld) 77.0 % High 47-70 [facility] Comment on above: Performed By: #### L 501.2450, L503.6005, L500.4050, L300.8000, L100.0100 #### [facility] Laboratory [address] [place], [address] Nucleated RBC (Bld) [#/Vol] 0 10*3/uL Normal 0-5 [facility] Comment on above: Performed By: #### L 501.2450, L503.6005, L500.4050, L300.8000, L100.0100 #### [facility] Laboratory [address] [place], [address] Platelet mean volume (Bld) [Entitic vol] 9.7 fL Normal 6.2-12.0 [facility] Comment on above: Performed By: #### L 501.2450, L503.6005, L500.4050, L300.8000, L100.0100 #### [facility] Laboratory [address] [place], [address] Platelets (Bld) [#/Vol] 263 10*3/uL Normal 150-450 [facility] Comment on above: Performed By: #### L 501.2450, L503.6005, L500.4050, L300.8000, L100.0100 #### [facility] Laboratory [address] [place], [address] RBC (Bld) [#/Vol] 4.55 10*6/uL Normal 4.2-5.4 [facility] Comment on above: Performed By: #### L 501.2450, L503.6005, L500.4050, L300.8000, L100.0100 #### [facility] Laboratory [address] [place], [address] RDW SD 44.6 fl High 35.1-43.9 [facility] Comment on above: Performed By: #### L 501.2450, L503.6005, L500.4050, L300.8000, L100.0100 #### [facility] Laboratory [address] [place], [address] WBC (Bld) [#/Vol] 9.4 10*3/uL Normal 4.4-11.0 [facility] Comment on above: Performed By: #### L 501.2450, L503.6005, L500.4050, L300.8000, L100.0100 #### [facility] Laboratory [address] [place], [address] Carbon dioxide, total [Moles /volume] in Central venous bloodOrdered By: Wilfred Bryan on 02-15-2025 CO2 [Moles/Vol] 26.3 mmol/L 21.0-32.0 [facility] Chest 1 View (Portable)on Chest 1 View (Portable) [facility] Imaging Services [address] [place], [place] [address] Chest 1 View (Portable) MR#: [id number] Acct: [id number] Name: ASHLEY GÓMEZ Rep #: [id number] : 1955 F 69 From: Deujan Patel DO PCP: Dr. Danish Davila DO Status: REG ER Study: Chest 1 View (Portable) Date of Exam: 02/15/25 Exam# [id number] Ordering Dr: Wilfred Bryan MD PROCEDURE: CHEST 1 VIEW (PORTABLE) 02/15/2025 REASON FOR EXAM: SHORTNESS OF BREATH TECHNIQUE: Frontal view of the chest. FINDINGS: Hardware: None Heart: Normal size Lungs: Clear Bones: No aggressive Other: RAD/Chest 1 View (Portable) IMPRESSION: No acute process Reading Location: [facility] CC: Dr. Wilfred Bryan MD; Dr. Danish Davila DO [employer] Professional: Signed Normal [facility] Chloride assayOrdered By: Lloyd Bryan on 02-15-2025 Chloride [Moles/Vol] 101 mmol/L 98-108 [facility] Emergency Department Summary on 02-15-2025 Emergency Department Summary [facility] Medical Records Department [address] [place] [address] Emergency Department Summary 02/15/25 MR#: [id number] Acct: [id number] Name: ASHLEY GÓMEZ Rep #: [id number] : 1955 69 From: Wilfred Bryan MD [...] day. Additionally, sometimes she smokes as well. [facility] Medical History Wears dentures Wears [...] none current occupational status: employed current occupation: [employer] Smoking Status: Current every day smoker tobacco [...] support pneumoth (more content not included)... Normal [facility] Eosinophil percentageOrdered By: Wilfred Bryan on 02-15-2025 Eosinophils/100 WBC (Bld) 0.7 % 0-5 [facility] Erythrocyte distribution wid th ratioOrdered By: Wilfred Bryan on 02-15-2025 Erythrocyte distribution width (RBC) [Ratio] 13.2 % 11.6-14.6 [facility] Erythrocyte distribution wid th standard deviationOrdered By: Wilfred Bryan on 02-15-2025 Erythrocyte distribution width (RBC) [Ratio] 44.6 fl High 35.1-43.9 [facility] Glomerular filtration rate ( GFR) estimation/1.73 sq m using serum, plasma, or whole bOrdered By: Wilfred Bryan on 02-15-2025 GFR/1.73 sq M.predicted among non-blacks MDRD (S/P/Bld) [Vol rate/Area] 86 mL/min/{1.73_m2} >60 [facility] Comment on above: mL/min/1.73m2 CKD-EP I Creatinine Equation (2020) H AND P Exam - [facility] 02-15-2025 H&P Exam - Hospitalist [facility] Medical Records Department [address] [place] [address] H P Exam - Hospitalist 02/15/25 1459 MR#: [id number] Acct: [id number] Name: ASHLEY GÓMEZ Rep #: [id number] : 1955 69 From: Bunny Avilez DO PCP: Dr. Danish Davila DO Status:ADM IN Location: [facility] [id number] HPI - General General Date of Admission: 02/15/25 Date of Service: 02/15/25 Chief Complaint: Shortness of breath HPI Narrative ASHLEY GÓMEZ, is a 69 F who presents to the emergency room at [facility] with complaints of shortness of [...] acute infiltrates patient will be admitted to [place] [address] for exacerbation of COPD with hypoxia, she will be given aerosol treatments IV Solu-Medrol, pulse ox will be monitored. [facility] Medical History Wears dentures Wears glasses [...] none current occupational status: employed current occupation: [employer] Smoking Status: Current every day smoker tobacco [...] Vital Signs (more content not included)... Normal [facility] Hematocrit Auto (Bld) [Volum e fraction]Ordered By: Wilfred Bryan on 02-15-2025 Hematocrit (Bld) [Volume fraction] 41.5 % 37-47 [facility] Hemoglobin measurementOrdere d By: Wilfred Bryan on 02-15-2025 Hemoglobin (Bld) [Mass/Vol] 13.6 g/dL 12.0-15.0 [facility] Immature granulocytes/100 WB C Auto (Bld)Ordered By: Wilfred Bryan on 02-15-2025 Immature granulocytes/100 WBC (Bld) 0.200 % 0.0-0.9 [facility] Comment on above: IG% - Immature Granu locytes (promyelocytes, myelocytes and metamyelocytes) > 1% indicates that a LEFT SHIFT is Present. MCV (mean corpuscular volume ) determinationOrdered By: Wilfred Bryan on 02-15-2025 MCV (RBC) [Entitic vol] 91.2 fL 81-99 [facility] Mean corpuscular hemoglobin (MCH) determinationOrdered By: Wilfred Bryan on 02-15-2025 MCH (RBC) [Entitic mass] 29.9 pg 27.0-32.0 [facility] Mean corpuscular hemoglobin concentration (MCHC) determinationOrdered By: Wilfred Bryan on 02-15-2025 MCHC (RBC) [Mass/Vol] 32.8 g/dL 32-36 [facility] Mean platelet volume determi nationOrdered By: Wilfred Bryan on 02-15-2025 Platelet mean volume (Bld) [Entitic vol] 9.7 fL 6.2-12.0 [facility] Monocyte percentageOrdered B y: Wilfred Bryan on 02-15-2025 Monocytes/100 WBC (Bld) 1.9 % 0-10 [facility] Neutrophil percentageOrdered By: Wilfred Bryan on 02-15-2025 Neutrophils/100 WBC (Bld) 77.0 % High 47-70 [facility] Nucleated red blood cell per centageOrdered By: Wilfred Bryan on 02-15-2025 Nucleated RBC/100 WBC (Bld) [Ratio] 0 % 0-5 [facility] Platelet countOrdered By: Lloyd Bryan on 02-15-2025 Platelets (Bld) [#/Vol] 263 10*3/uL 150-450 [facility] Potassium measurement (mass/ volume)Ordered By: Wilfred Bryan on 02-15-2025 Potassium (Unsp spec) [Mass/Vol] 3.2 mmol/L Low 3.3-5.1 [facility] RBC Auto (Bld) [#/Vol]Ordere d By: Wilfred Bryan on 02-15-2025 RBC (Bld) [#/Vol] 4.55 10*6/uL 4.2-5.4 [facility] Serum creatinine measurement (mass/volume)Ordered By: Wilfred Bryan on 02-15-2025 Creatinine [Mass/Vol] 0.75 mg/dL 0.70-1.20 [facility] Serum glucose measurement (m ass/volume)Ordered By: Wilfred Bryan on 02-15-2025 Glucose [Mass/Vol] 136 mg/dL High 70-99 [facility] Serum or plasma calcium janneth urement (mass/volume)Ordered By: Wilfred Bryan on 02-15-2025 Calcium [Mass/Vol] 9.8 mg/dL 7.6-11.0 [facility] Serum or plasma urea nitroge n measurement (mass/volume)Ordered By: Wilfred Bryan on 02-15-2025 Urea nitrogen [Mass/Vol] 17 mg/dL 4-19 [facility] Sodium levelOrdered By: Wilfred Bryan on 02-15-2025 Sodium [Moles/Vol] 140 mmol/L 133-145 [facility] White blood cell (WBC) count Ordered By: Wilfred Bryan on 02-15-2025 WBC (Bld) [#/Vol] 9.4 10*3/uL 4.4-11.0 [facility] 36on 02-11-2025 36 Patient advised and voiced understanding. [facility] 29on 02-10-2025 29 Addended by: JUJU PATTON on: 02/10/2025 03:52 PM Modules accepted: Orders [facility] 36on 02-10-2025 36 Called patient to relay provider message left voicemail to call office back. [employer] message sent to patient. Please relay message to patient. [facility] 36 Message released to patient as [...] a new script sent in. Please advise [facility] 36 Left message to return call Gasper Nelson DO 02/10/25 12:43 PM Antibiotic, and prednisone prescribed to her local pharmacy. I would take the prednisone 5 days due to her emphysema Normal [facility] 36 Recent Visits Date Type Provider Dept 11/12/24 Office Visit Siomara Estrada PA-C [facility] 02/22/24 Office Visit Gasper Nelson DO [facility] Showing recent visits within past 365 [...] Most recent labs completed in chart? N/A [facility] 36 Recent Visits Date Type Provider Dept 11/12/24 Office Visit Siomara Estrada PA-C [facility] 02/22/24 Office Visit Gasper Nelson DO [facility] Showing recent visits within past 365 [...] Most recent labs completed in chart? N/A [facility] 36 S: Patient spoke with [facility] nurse regarding chest congestion and increased [...] refill on her albuterol inhaler. (Sent via [employer] request). Allergies and pharmacy verified. R: Offered [...] or worse than normal Protocols used: Breathing Spetwcyabs-PNSOT-UH Normal [facility] 36on 12-13-2024 36 Recent Visits Date Type Provider Dept 11/12/24 Office Visit Siomara Estrada PA-C [facility] 02/22/24 Office Visit Gasper Nelson DO [facility] Showing recent visits within past 365 [...] CHOLHDLCRATI 4.2 01/13/2023 NONHDLCHOLES 174 (H) 01/13/2023 [facility] 37on 11-12-2024 37 Personalized Preventative Plan [...] Recommendations: A preventive eye exam by an eyeglass maker is recommended every 1-2 years to screen for glaucoma, cataracts, macular degeneration, and other eye disorders. A preventive dental visit is recommended every 6 months. Try to get at least 150 minutes of exercise per week or 10,000 steps per day on a pedometer. You need 1200-1500mg of calcium and 4035-7736 international units of vitamin D per day. [...] when riding a bicycle or a motorcycle [facility] Office Visiton 11-12-2024 Follow-up visit [id number] Ashley Gómez 1955 F Date Provider Department Center 11/12/2024 SIOMARA DIAZ [facility] Family History Problem Relation Age of [...] Brother Alive Brother Alive Level of Service:G0439 [place] PPPS, SUBSEQ VISIT Reason for Visit and Comments: Medicare Annual Wellness Visit Subsequent [677] Normal [facility] Progress Noteon 11-12-2024 Progress Note [...] levels have been adequately controlled Normal [facility] Progress Note - Chronic stable she will continue on esomeprazole 40 mg daily. Normal [facility] Progress Note - Chronic stable patient was recently treated for flareup with amoxicillin and prednisone she can take the prednisone she is requesting a lower dose Medrol Dosepak and a second round of antibiotics that she started in some generalized wheezing and congestion strongly encouraged smoking cessation. Normal [facility] Progress Note [facility] - [address] [facility] [address] Dept: [phone] Dept Chief Complaint: Ashley Gómez is an [...] Ga (more content not included)... Normal [facility] 36on 10-31-2024 36 S: Patient spoke with [facility] nurse regarding chest congestion, B: Onset [...] not coughing Protocols used: Cough - Acute Crj-Bbqikfadmb-FRMH T-AH Normal [facility] Progress Noteon 10-31-2024 Progress Note [facility] [address] [facility] [address] Dept: [phone] Dept Loc: [phone] Patient was identified and seen today via [...] stated that they are currently in the [facility]. If the patient is a [...] orders. Gasper Nelson DO 10/31/2024 12:20 PM [facility] 10-01-2024 36 Received signed receipt of certified letter sent to patient. Scanned to media in chart. [facility] 09-30-2024 36 Recent Visits Date Type [...] recent labs completed in chart? N/A None [facility] 36on 09-16-2024 36 Recent Visits Date [...] CHOLHDLCRATI 4.2 01/13/2023 NONHDLCHOLES 174 (H) 01/13/2023 [facility] 36on 08-05-2024 36 Transferred to result notes [facility] 36 Message released to patient as written. Patient's further questions if applicable: NA Were all questions from office addressed or relayed to the patient from encounter: Yes Normal [facility] 36 Placed call to patient. Unable to reach them by phone to discuss lab results. Left detailed message to return call to discuss results. Please release information to patient Normal [facility] 36 ----- Message from Juju Rodriguez sent at 08/05/2024 7:36 AM EST ----- ----- Message ----- From: Gasper Nelson DO Sent: 08/04/2024 5:20 PM EST To: [facility] Clinical Supervisor [employer] Stable small pulmonary nodules and they now recommend recheck study in 1 year. As noted before she has moderate amount of emphysema. Normal [facility] CT LUNG SCREENING FOLLOW UP [...] PM EST F/U SCAN SMOKER Normal [facility] 36on 07-24-2024 36 Recent Visits Date Type Provider Dept 02/22/24 Office Visit Gasper Nelson DO [facility] 07/31/23 Office Visit Gasper Nelson DO [facility] Showing recent visits within past 365 days and meeting all other requirements Future Appointments Date Type Provider Dept 08/21[facility]24 [facility] within next 90 [...] CHOLHDLCRATI 4.2 01/13/2023 NONHDLCHOLES 174 (H) 01/13/2023 [place] [address]on 06-28-2024 36 Reason for call: Pari, I [...] to get her scheduled. Thank you Contact [place] [address] No auth needed. Faxed orders to [facility]-Scheduling for pt to be sched - [facility] will sched/advise pt. My chart mess sent to patient with info to sched. [address] 06-27-2024 36 Vincent Perez, It looks like the patient navigator has done all that she can do. So it looks like all avenues have been exhausted to try and reach this patient to schedule. [facility] 36 To April to follow up [place] [address] Mrs. Gómez called in after receiving certified letter. She would like to return to complete the recommended lung screening 3 month follow-up imaging previously ordered by Dr. Nelson. Will send message to provider office to place new referral for imaging and assist patient with scheduling. She prefers [place] for imaging location and is available on Monday the if there are any appointments available. [address] 06-11-2024 36 RX loaded Next ov 08/21/24 [place] [address] Medication name: traZODone (Desyrel) 150 MG tablet [...] picking up the medication: Yes Normal [facility] Colonoscopy Reporton 024 Colonoscopy Report [facility] Medical Records Department [address] [place] [address] Colonoscopy Report MR#: [id number] Acct: [id number] Name: ASHLEY GÓMEZ Rep #: [id number] : 1955 68 From: Slim Weiss DO PCP: Dr. Danish Davila DO Status:REG [facility] Patient Name: Ashley [...] criteria for high risk CPT copyright 2021 [employer]. All rights reserved. The codes documented in this report are preliminary and upon geology scientist review may be revised to meet current compliance requirements. Slim Weiss DO 04/29/2024 9:34:45 AM This report has been signed electronically. Number of Addenda: 0 Note Initiated On: 04/29/2024 8:54 AM 04/29/24 0934 Date Slim Weiss DO Cosigner Signature: Date (if indicated) CC: Dr. Danish Davila DO; Slim Weiss DO Date Dictated: 04/29/24 0854 Date Transcribed: Resolute Professional: WES Signed [facility] MR/POSTOP.ANEon 04-29-2024 MR/POSTOP[facility] Medical Records Department [address] [place] [address] Anesthesia Postop Eval I 04/29/24 1403 MR#: [id number] Acct: [id number] Name: ASHLEY GÓMEZ Rep #: [id number] : 1955 68 From: Supriya Valdovinos CRNA PCP: Dr. Danish Davila, DO Status:[facility] Y Race: C Location: EN [...] Valdovinos CRNA Cosigner Signature: Date CC: Signed [facility] MR/[id number] 04-29-2024 MR/POSTOPAN2 [facility] Medical Records Department [address] [place] [address] Anesthesia Postop Eval II 04/29/24 1341 MR#: [id number] Acct: [id number] Name: ASHLEY GÓMEZ Rep #: [id number] : 1955 68 From: David Valadez MD PCP: Dr. Danish Davila, DO Status:[facility] Y Race: C Location: EN [...] David Purdyigncarolyn Signature: Date CC: Signed [facility] 04-17-2024 36 Recent Visits Date Type Provider Dept 02/22/24 Office Visit Gasper Nelson DO [facility] 07/31/23 Office Visit Gasper Nelson DO [facility] Showing recent visits within past 365 [...] Nightly as needed for sleep. Provider: Gasper Neslon DO Overdue for visit: No If yes - patient scheduled? Yes - 08/21/2024 Most recent labs completed in chart? Yes Verified pharmacy: yes Verified day(s) supplied: yes Verified refill(s) needed (previous prescription showing no refills in chart): Yes Have you received any controlled medications from any other provider? No None [facility] 04-12-2024 36 Orders cancelled 04-11-2024 36 We have been unable to reach your patient to schedule their testing. Test Name: CT lung screening follow up, PFT and Mammo 1st Attempt: 03/30/24 2nd Attempt: 04/11/24 Thanks, [facility] Scheduling Normal [facility] Lipid 1996 panelon 4 Cholesterol [Mass/Vol] 162 mg/dL NINF - 200 mg/dL [facility] Cholesterol in HDL [Mass/Vol] 38 mg/dL Low 40 - 60 mg/dL [facility] Cholesterol in LDL [Mass/Vol] 106 mg/dL High 0 - <100 [facility] Cholesterol.total/Choles terol in HDL [Mass ratio] 4 {ratio} [facility] Comment on above: Ref Range: < 3 Low Risk for CHD 3-6 Mod Risk for CHD > 6 High Risk for CHD Interpretation and review of laboratory results Abnormal [facility] Triglyceride [Mass/Vol] 91 mg/dL NINF - 150 mg/dL [facility] Absolute lymphocyte counton 01-31-2022 Lymphocytes Auto (Unsp spec) [#/Vol] 1.28 10*3/uL 0.83-4.51 [facility] Work Phone: Basophil percentageon 2021 Basophils/100 WBC (Bld) 0.3 % 0-1 [facility] Work Phone: Chloride [Moles/Vol] 100 mmol/L 98-107 [facility] Work Phone: Eosinophils/100 WBC (Bld) 0.0 % 0-5 [facility] Work Phone: Glucose [Mass/Vol] 153 mg/dL 74-106 [facility] Work Phone: Comment on above: Fasting Glucose resu lt greater than or equal to 126 mg/dL suggests DIABETES MELLITUS per A.D.A. criteria. Neutrophils (Bld) [#/Vol] 17.2 10*3/uL 2.0-7.7 [facility] Work Phone: Neutrophils/100 WBC (Bld) 88.5 % 47-70 [facility] Work Phone: Potassium [Moles/Vol] 3.2 mmol/L 3.5-5.1 [facility] Work Phone: Comment on above: Slight Hemolysis, Re sult may be falsely increased. Sodium [Moles/Vol] 135 mmol/L 136-145 [facility] Work Phone: WBC (Bld) [#/Vol] 19.4 10*3/uL 4.4-11.0 [facility] Work Phone: Blood erythrocytes count (nu mber/volume)on 01-31-2022 RBC (Bld) [#/Vol] 4.26 10*6/uL 4.2-5.4 [facility] Work Phone: Blood hemoglobin measurement (mass/volume)on 01-31-2022 Hemoglobin (Bld) [Mass/Vol] 12.5 g/dL 12.0-15.0 [facility] Work Phone: Blood lymphocytes/100 leukoc yteson 01-31-2022 Lymphocytes/100 WBC (Bld) 6.6 % 19-41 [facility] Work Phone: Blood monocytes/100 leukocyt eson 01-31-2022 Monocytes/100 WBC (Bld) 3.5 % 0-10 [facility] Work Phone: Blood platelet mean volumeon 01-31-2022 Platelet mean volume (Bld) [Entitic vol] 10.4 fL 6.2-12.0 [facility] Work Phone: Determination of erythrocyte mean corpuscular volume (MCV)on 01-31-2022 MCV (RBC) [Entitic vol] 88.0 fL 81-99 [facility] Work Phone: Hematocrit Auto (Bld) [Volum e fraction]on 01-31-2022 Hematocrit (Bld) [Volume fraction] 37.5 % 37-47 [facility] Work Phone: [phone] Laboratory - Chemistry and C hemistry - challengeon 01-31-2022 CO2 [Moles/Vol] 27.0 mmol/L 21.0-32.0 [facility] Work Phone: [phone] Urea nitrogen/Creatinine [Mass ratio] 22.0 mg/mg 10-20 [facility] Work Phone: [phone] Laboratory - Hematology and Cell countson 01-31-2022 Erythrocyte distribution width (RBC) [Entitic vol] 45.4 fL 35.1-43.9 [facility] Work Phone: [phone] Erythrocyte distribution width (RBC) [Ratio] 14.1 % 11.6-14.6 [facility] Work Phone: [phone] Immature granulocytes/100 WBC (Bld) 1.100 % 0.0-0.9 [facility] Work Phone: [phone] Comment on above: IG% - Immature Granu locytes (promyelocytes, myelocytes and metamyelocytes) > 1% indicates that a LEFT SHIFT is Present. MCH (RBC) [Entitic mass] 29.3 pg 27.0-32.0 [facility] Work Phone: [phone] Nucleated RBC/100 WBC (Bld) [Ratio] 0 % 0-5 [facility] Work Phone: [phone] MCHC Auto (RBC) [Mass/Vol]on 01-31-2022 MCHC (RBC) [Mass/Vol] 33.3 g/dL 32-36 [facility] Work Phone: [phone] No Panel Informationon 01-31 Estimated Creatinine Clearance Calc 49.62 ml/min [facility] Work Phone: [phone] Estimated GFR (MDRD) Amer 79 mL/min >60 [facility] Work Phone: [phone] Comment on above: GFR Calc Estimated GFR (MDRD) Non-Af Amer 65 mL/min >60 [facility] Work Phone: [phone] Comment on above: Non- GFR Calc SARS-CoV-2 & FLU Antigen (Rapid) [facility] Work Phone: [phone] Platelets bldon 01-31-2022 Platelets (Bld) [#/Vol] 188 10*3/uL 150-450 [facility] Work Phone: Serum or plasma calcium janneth urement (mass/volume)on 01-31-2022 Calcium [Mass/Vol] 9.4 mg/dL 8.5-10.1 [facility] Work Phone: Serum or plasma creatinine m easurement (mass/volume)on 01-31-2022 Creatinine [Mass/Vol] 0.91 mg/dL 0.55-1.02 [facility] Work Phone: Comment on above: The validity of the calculated GFR & GFRAA in patients over 70 years has not been determined. Clinical correlation is essential. Serum or plasma urea nitroge n measurement (mass/volume)on 01-31-2022 Urea nitrogen [Mass/Vol] 20 mg/dL 7-18 [facility] Work Phone: Thin prep Papanicolaou smear with manual screeningon 01-31-2022 Thin prep Papanicolaou smear with manual screening 8 5-15 [facility] Work Phone: DEXA Bone Density Axial Skel etonon 01-11-2022 Patient Name: ASHLEY GÓMEZ Bone Density ACCESSION EXAM DATE/TIME PROCEDURE ORDERING PROVIDER [id number] 01/11/2022 15:04 EDT OT Bone Density DEXA DO DAVILA PAUL E. Axial Skeleton CPT code 93915 Reason For Exam (OT Bone Density DEXA Axial Skeleton) . Report DXA BONE DENSITOMETRY: CLINICAL INDICATION: Asymptomatic post-menopausal status COMPARISON: None TECHNIQUE: Quantitative bone mineral densitometry of the hip and lumbar spine was performed with a dual energy x-ray observed absorptiometry device - HoloahoyDoc W. Regions of interest were obtained through [...] recommendations for prevention of bone loss include: 5439-7927 mg calcium intake per day for adults [...] and Follow-up. [employer] Evidence-Based Summaries. [facility] [employer]. 2017 Bone Density Report Report Dictated on --- Final --- Dictating Physician: MD SANTIAGO LAUREN B Signed Date and Time: 01/11/2022 4:03 pm Signed by: MD SANTIAGO LAUREN B Transcribed Date and Time: 01/11/2022 4:05 REBEKAH VERMA RAD Bari Santiago MD - 01/11/2022 Patient Name: ASHLEY GÓMEZ Bone Density ACCESSION EXAM DATE/TIME PROCEDURE ORDERING PROVIDER [id number] 01/11/2022 15:04 EDT OT Bone Density DEXA DO DAVILA PAUL E. Axial Skeleton CPT code 85411 Reason For Exam (OT Bone Density DEXA Axial Skeleton) . Report DXA BONE DENSITOMETRY: CLINICAL INDICATION: Asymptomatic post-menopausal status COMPARISON: None TECHNIQUE: Quantitative bone mineral densitometry of the hip and lumbar spine was performed with a dual energy x-ray observed absorptiometry device - Mantex W. Regions of interest were obtained through [...] recommendations for prevention of bone loss include: 0102-8640 mg calcium intake per day for adults [...] and Follow-up. [employer] Evidence-Based Summaries. [facility] [employer]. 2017 Bone Density [...] Mammography ACCESSION EXAM DATE/TIME PROCEDURE ORDERING PROVIDER [id number] 01/11/2022 15:01 EDT MG Breast Tomosynthesis DO DAVILA PAUL E. BI Scr CPT code 69172 02856 Reason For Exam (MG Breast Tomosynthesis BI [...] 20, 2013, bilateral screening mammogram performed at [facility]. TISSUE DENSITY: BIRADS B - [...] images: BB's = Nipples; skin lesions Open beaver = Palpable Line = Scar 2D digital [...] am Signed by: MD PAMELA, BARI [facility] OT Bone Density DEXA Axial S [email or web address] 01-11-2022 OT Bone Density DEXA Axial Skeleton Patient Name: AHSLEY GÓMEZ Bone Density ACCESSION EXAM DATE/TIME PROCEDURE ORDERING PROVIDER [id number] 01/11/2022 15:04 EDT OT Bone Density DEXA DO DAVILA PAUL E. Axial Skeleton CPT code 03191 Reason For Exam (OT Bone Density DEXA [...] recommendations for prevention of bone loss include: 4484-6994 mg calcium intake per day for adults [...] and Follow-up. [employer] Evidence-Based Summaries. [facility] [employer]. 2017 Bone Density Report Report Dictated on Final Dictating Physician: MD SANTIAGO LAUREN B Signed Date and Time: 01/11/2022 4:03 pm Signed by: MD SANTIAGO LAUREN B Transcribed Date and Time: 01/11/2022 4:05 [facility] Jacqueline 10-23-2020 [facility] Telephone (GASTTW) ---- ASHLEY GÓMEZ ([id number]) 1955 F Date Time Provider Department 10/23/20 [...] Fully Assessed Reason for Visit: Schedule Evaluation [1793] Prescriptions as of 10/23/2020 Sig: HYDROCODONE 5 [...] GERMAN RAMIREZ MD on 10/23/[address] [facility] Panel Information SARS-CoV-2 & FLU Antigen (Rapid) [facility] Work Phone: Vital Signs Date Time Vital Sign Value Performing Clinician Facility 03-06-2025 10:00-0400 Body temperature 97.8 [degF] Dr. Danish Davila DO Work Phone: [facility] 03-06-2025 10:00-0400 Diastolic blood pressure 78 mm[Hg] Dr. Danish Davila DO Work Phone: [facility] 03-06-2025 10:00-0400 Heart rate 86 /min Dr. Danish Davila DO Work Phone: [facility] 03-06-2025 10:00-0400 Respiratory rate 15 /min Dr. Danish Davila DO Work Phone: [facility] 03-06-2025 10:00-0400 SaO2% (BldA) [Mass fraction] 90 % Dr. Danish Davila DO Work Phone: [facility] 03-06-2025 10:00-0400 Systolic blood pressure 178 mm[Hg] Dr. Danish Davila DO Work Phone: [facility] 03-06-2025 05:54-0400 Body height 162.[address] Danish Davila DO Work Phone: [facility] 03-06-2025 05:54-0400 Body mass index (BMI) [Ratio] 19.3 kg/m2 Dr. Danish Davila DO Work Phone: [facility] 03-06-2025 05:54-0400 Body weight 51.[address] Danish Davila DO Work Phone: [facility] 03-05-2025 10:51-0400 Body height 162.[address] Danish Davila DO Work Phone: [facility] 03-05-2025 10:51-0400 Body weight 46.[address] Danish Davila DO Work Phone: [facility] 03-05-2025 10:22-0400 Body temperature 98 [degF] Dr. Danish Davila DO Work Phone: [facility] 03-05-2025 10:22-0400 Diastolic blood pressure 71 mm[Hg] Dr. Danish Davila DO Work Phone: [facility] 03-05-2025 10:22-0400 Heart rate 92 /min Dr. Danish Davila DO Work Phone: [facility] 03-05-2025 10:22-0400 Respiratory rate 16 /min Dr. Danish Davila DO Work Phone: [facility] 03-05-2025 10:22-0400 SaO2% (BldA) [Mass fraction] 97 % Dr. Danish Davila DO Work Phone: [facility] 03-05-2025 10:22-0400 Systolic blood pressure 111 mm[Hg] Dr. Danish Davila DO Work Phone: [facility] 03-05-2025 08:55-0400 Body temperature 98 [degF] Dr. Danish Davila DO Work Phone: [facility] 03-05-2025 08:55-0400 Diastolic blood pressure 71 mm[Hg] Dr. Danish Davila DO Work Phone: [facility] 03-05-2025 08:55-0400 Heart rate 92 /min Dr. Danish Davila DO Work Phone: [facility] 03-05-2025 08:55-0400 Respiratory rate 16 /min Dr. Danish Davila DO Work Phone: [facility] 03-05-2025 08:55-0400 SaO2% (BldA) [Mass fraction] 97 % Dr. Danish Davila DO Work Phone: [facility] 03-05-2025 08:55-0400 Systolic blood pressure 111 mm[Hg] Dr. Danish Davila DO Work Phone: [facility] 03-05-2025 06:55-0400 Inhaled oxygen flow rate 2 L/min Dr. Danish Davila DO Work Phone: [facility] 03-05-2025 03:26-0400 Body mass index (BMI) [Ratio] 17.4 kg/m2 Dr. Danish Davila DO Work Phone: [facility] 03-03-2025 03:34-0400 Body temperature 98.1 [degF] Dr. Danish Davila DO Work Phone: [facility] 03-03-2025 03:34-0400 Diastolic blood pressure 82 mm[Hg] Dr. Danish Davila DO Work Phone: [facility] 03-03-2025 03:34-0400 Heart rate 90 /min Dr. Danish Davila DO Work Phone: [facility] 03-03-2025 03:34-0400 Inhaled oxygen flow rate 2 L/min Dr. Danish Davila DO Work Phone: [facility] 03-03-2025 03:34-0400 Respiratory rate 18 /min Dr. Danish Davila DO Work Phone: [facility] 03-03-2025 03:34-0400 SaO2% (BldA) [Mass fraction] 92 % Dr. Danish Davila DO Work Phone: [facility] 03-03-2025 03:34-0400 Systolic blood pressure 156 mm[Hg] Dr. Danish Davila DO Work Phone: [facility] 03-02-2025 23:34-0400 Body height 162.[address] Danish Davila DO Work Phone: [facility] 03-02-2025 23:34-0400 Body mass index (BMI) [Ratio] 18.9 kg/m2 Dr. Danish Davila DO Work Phone: [facility] 03-02-2025 23:34-0400 Body weight [address] Danish Davila DO Work Phone: [phone] [place] [address] 02-17-2025 08:14-0400 Body temperature 98.2 [degF] Dr. Danish Davila DO Work Phone: [phone] [place] [address] 02-17-2025 08:14-0400 Diastolic blood pressure 54 mm[Hg] Dr. Danish Davila DO Work Phone: [facility] 02-17-2025 08:14-0400 Heart rate 76 /min Dr. Danish Davila DO Work Phone: [facility] 02-17-2025 08:14-0400 Respiratory rate 18 /min Dr. Danish Davila DO Work Phone: [facility] 02-17-2025 08:14-0400 SaO2% (BldA) [Mass fraction] 92 % Dr. Danish Davila DO Work Phone: [facility] 02-17-2025 08:14-0400 Systolic blood pressure 131 mm[Hg] Dr. Danish Davila DO Work Phone: [facility] 02-17-2025 04:32-0400 Inhaled oxygen flow rate 2 L/min Dr. Danish Davila DO Work Phone: [facility] 02-16-2025 15:06-0400 Body height 162.[address] Danish Davila DO Work Phone: [facility] 02-16-2025 15:06-0400 Body weight 52.[address] Danish Davila DO Work Phone: [facility] 02-15-2025 11:58-0400 Body mass index (BMI) [Ratio] 19.7 kg/m2 Dr. Danish Davila DO Work Phone: [facility] 02-15-2025 10:47-0400 Body temperature 98 [degF] Dr. Danish Davila DO Work Phone: [facility] 02-15-2025 10:47-0400 Diastolic blood pressure 68 mm[Hg] Dr. Danish Davila DO Work Phone: [facility] 02-15-2025 10:47-0400 Heart rate 87 /min Dr. Danish Davila DO Work Phone: [facility] 02-15-2025 10:47-0400 Respiratory rate 19 /min Dr. Danish Davila DO Work Phone: [facility] 02-15-2025 10:47-0400 SaO2% (BldA) [Mass fraction] 91 % Dr. Danish Davila DO Work Phone: [facility] 02-15-2025 10:47-0400 Systolic blood pressure 132 mm[Hg] Dr. Danish Davila DO Work Phone: [facility] 02-15-2025 10:30-0400 Inhaled oxygen flow rate 2 L/min Dr. Danish Davila DO Work Phone: [facility] 02-15-2025 08:30-0400 Body height 162.[address] Danish Davila DO Work Phone: [facility] 02-15-2025 08:30-0400 Body mass index (BMI) [Ratio] 19.5 kg/m2 Dr. Danish Davila DO Work Phone: [facility] 02-15-2025 08:30-0400 Body weight 51.[address] Danish Davila DO Work Phone: [facility] 11-12-2024 09:09-0400 Diastolic blood pressure 80 mm[Hg] Siomara Estrada PA-C Work Phone: [facility] 11-12-2024 09:09-0400 Systolic blood pressure 132 mm[Hg] Siomara Falcono PA-C Work Phone: [facility] 11-12-2024 08:38-0400 Body height 162.6 cm Siomara Falcono PA-C Work Phone: [facility] 11-12-2024 08:38-0400 Body mass index (BMI) [Ratio] 20.6 kg/m2 Siomara Estrada PA-C Work Phone: [facility] 11-12-2024 08:38-0400 Body temperature 97.2 [degF] Siomara Estrada PA-C Work Phone: [facility] 11-12-2024 08:38-0400 Body weight 54.43 kg Siomara Estrada PA-C Work Phone: [facility] 11-12-2024 08:38-0400 Heart rate 83 /min Siomara Estrada PA-C Work Phone: [facility] 11-12-2024 08:38-0400 SaO2% (BldA) [Mass fraction] 90 % Siomara Estrada PA-C Work Phone: [facility] 02-22-2024 12:58-0400 Body height 162.6 cm Gasper Nelson DO Work Phone: [facility] 02-22-2024 12:58-0400 Body mass index (BMI) [Ratio] 21.11 kg/m2 Gasper Nelson DO Work Phone: [facility] 02-22-2024 12:58-0400 Body temperature 97 [degF] Gasper Nelson DO Work Phone: [facility] 02-22-2024 12:58-0400 Body weight 55.79 kg Gasper Nelson DO Work Phone: [facility] 02-22-2024 12:58-0400 Diastolic blood pressure 74 mm[Hg] Gasper Nelson DO Work Phone: [facility] 02-22-2024 12:58-0400 Heart rate 71 /min Gasper Nelson DO Work Phone: [facility] 02-22-2024 12:58-0400 SaO2% (BldA) [Mass fraction] 97 % Gasper Nelson DO Work Phone: [facility] 02-22-2024 12:58-0400 Systolic blood pressure 115 mm[Hg] Gasper Nelson DO Work Phone: [facility] 07-31-2023 15:37-0500 Body height 162.6 cm Gasper Nelson DO Work Phone: [facility] 07-31-2023 15:37-0500 Body mass index (BMI) [Ratio] 20.53 kg/m2 Gasper Nelson DO Work Phone: [facility] 07-31-2023 15:37-0500 Body temperature 97.81 [degF] Gasper Nelson DO Work Phone: [facility] 07-31-2023 15:37-0500 Body weight 54.25 kg Gasper Nelson DO Work Phone: [facility] 07-31-2023 15:37-0500 Diastolic blood pressure 78 mm[Hg] Gasper Nelson DO Work Phone: [facility] 07-31-2023 15:37-0500 Heart rate 80 /min Gasper Nelson DO Work Phone: [facility] 07-31-2023 15:37-0500 SaO2% (BldA) [Mass fraction] 94 % Gasper Nelson DO Work Phone: [facility] 07-31-2023 15:37-0500 Systolic blood pressure 138 mm[Hg] Gasper Nelson DO Work Phone: [facility] 01-13-2023 09:24-0400 Body height 162.6 cm Gasper Nelson DO Work Phone: [facility] 01-13-2023 09:24-0400 Body mass index (BMI) [Ratio] 19.74 kg/m2 Gasper Nelson DO Work Phone: [facility] 01-13-2023 09:24-0400 Body temperature 97.5 [degF] Gasper Nelson DO Work Phone: [facility] 01-13-2023 09:24-0400 Body weight 52.16 kg Gasper Nelson DO Work Phone: [facility] 01-13-2023 09:24-0400 Diastolic blood pressure 73 mm[Hg] Gasper Nelson DO Work Phone: [facility] 01-13-2023 09:24-0400 Heart rate 89 /min Gasper Nelson DO Work Phone: [facility] 01-13-2023 09:24-0400 SaO2% (BldA) [Mass fraction] 99 % Gasper Nelson DO Work Phone: [facility] 01-13-2023 09:24-0400 Systolic blood pressure 118 mm[Hg] Gasper Nelson DO Work Phone: [facility] 11-14-2022 11:49-0400 Body height 162.6 cm Siomara Estrada PA-C Work Phone: [facility] 11-14-2022 11:49-0400 Body mass index (BMI) [Ratio] 20.6 kg/m2 Siomara Estrada PA-C Work Phone: [facility] 11-14-2022 11:49-0400 Body temperature 98.01 [degF] Siomara Estrada PA-C Work Phone: [facility] 11-14-2022 11:49-0400 Body weight 54.43 kg Siomara Estrada PA-C Work Phone: [employer] [facility] 11-14-2022 11:49-0400 Diastolic blood pressure 80 mm[Hg] Siomara LOPES-C Work Phone: [facility] 11-14-2022 11:49-0400 Heart rate 82 /min Siomara CHAPAC Work Phone: [facility] 11-14-2022 11:49-0400 SaO2% (BldA) [Mass fraction] 95 % Siomara LOPES-C Work Phone: [facility] 11-14-2022 11:49-0400 Systolic blood pressure 138 mm[Hg] Siomara LOPES-C Work Phone: [facility] 10-03-2022 08:39-0500 Body height 162.6 cm Danish Monteso DO Work Phone: [facility] [employer] [facility] 10-03-2022 08:39-0500 Body mass index (BMI) [Ratio] 20.63 kg/m2 Danish Monteso DO Work Phone: [facility] 10-03-2022 08:39-0500 Body temperature 97.11 [degF] Danish Monteso DO Work Phone: [facility] 10-03-2022 08:39-0500 Body weight 54.52 kg Danish Carmonacasso DO Work Phone: [facility] 10-03-2022 08:39-0500 Diastolic blood pressure 63 mm[Hg] Danish Monteso DO Work Phone: [facility] 10-03-2022 08:39-0500 Heart rate 74 /min Danish Davila DO Work Phone: [facility] 10-03-2022 08:39-0500 SaO2% (BldA) [Mass fraction] 93 % Danish Monteso DO Work Phone: [facility] 10-03-2022 08:39-0500 Systolic blood pressure 118 mm[Hg] Danish Davila DO Work Phone: [facility] 01-31-2022 09:50-0400 Body temperature 99.4 [degF] [facility] Work Phone: 01-31-2022 09:50-0400 Diastolic blood pressure 97 mm[Hg] [facility] Work Phone: 01-31-2022 09:50-0400 Heart rate 100 /min [facility] Work Phone: 01-31-2022 09:50-0400 Respiratory rate 18 /min [facility] Work Phone: 01-31-2022 09:50-0400 SaO2% (BldA) [Mass fraction] 96 % [facility] Work Phone: 01-31-2022 09:50-0400 Systolic blood pressure 116 mm[Hg] [facility] Work Phone: 01-31-2022 09:20-0400 Body height 160.02 cm [facility] Work Phone: 01-31-2022 09:20-0400 Body mass index (BMI) [Ratio] 21.2 kg/m2 [facility] Work Phone: 01-31-2022 09:20-0400 Body weight 54.43 kg [facility] Work Phone: Encounters Encounter Date Encounter Type Care Provider Facility Start: 03-06-2025 End: 03-06-2025 Emergency department patient visit Dr. Danish Davila DO Work Phone: -Emergency Department Work Phone: Start: 03-05-2025 Non-patient / Non-visit Dr. Kelvin holman MD -[facility] Work Phone: Start: 03-04-2025 Non-patient / Non-visit Dr. Kelvin holman MD -[facility] Work Phone: Start: 03-03-2025 Non-patient / Non-visit Slim Singh nd, DO -[facility] Start: 03-03-2025 ambulatory Elisabet Ponce Facility:[facility] Start: 03-03-2025 Non-patient / Non-visit Dr. Elisabet turner MD -[facility] Start: 03-03-2025 ambulatory Tonja Jo Facility :[facility] Start: 03-03-2025 End: 03-05-2025 Evaluation and management of inpatient Dr. Tonja Jo MD -[facility] Unit Work Phone: Start: 02-24-2025 End: 02-24-2025 Refill Gasper Nelson DO Work Phone: [facility] Start: 02-17-2025 Non-patient / Non[facility] Work Phone: Start: 02-16-2025 Non-patient / Non-[facility] Work Phone: Start: 02-15-2025 Non-patient / Non-visit [facility] Work Phone: Start: 02-15-2025 ambulatory Danish Davila Facility: [facility] Start: 02-15-2025 End: 02-17-2025 Evaluation and management of inpatient Dr. Bunny Avilez DO -[facility] Work Phone: Start: 02-10-2025 End: 02-10-2025 Orders Only Gasper Nelson DO Work Phone: [facility] Comment on above: Chronic obstructive pulmonary disease with acute exacerbation (HCC) Release of Informati on Other insomnia Start: 02-09-2025 End: 02-10-2025 Refill Siomara Estrada PA-C Work Phone: [facility] Comment on above: Chronic obstructive pulmonary disease with acute exacerbation (HCC) Start: 12-13-2024 End: 12-13-2024 Refill Gasper Nelson DO Work Phone: [facility] Start: 11-20-2024 End: 12-02-2024 Refill Gasper Serrano Miguelarleen DO Work Phone: [facility] Comment on above: Other insomnia Start: 11-12-2024 End: 11-12-2024 Assay of hemosiderin, quant Siomara Estrada PA-C Work Phone: [facility] Work Phone: Start: 11-12-2024 End: 11-12-2024 Patient encounter procedure Siomara Estrada PA-C Work Phone: [facility] Comment on above: Routine general medi olga lidia examination at health care facility (Primary Dx); Encounter for screening mammogram for malignant neoplasm of breast; Hypercholesterolemia; Chronic obstructive pulmonary disease with acute exacerbation (HCC); Gastroesophageal reflux disease without esophagitis Start: 11-12-2024 End: 11-12-2024 ambulatory [facility] Start: 11-12-2024 End: 11-12-2024 Encounter for general adult medical examination without abnormal findings [facility] Start: 10-31-2024 End: 10-31-2024 [facility] Start: 10-31-2024 End: 10-31-2024 ambulatory [facility] Start: 10-31-2024 End: 10-31-2024 Office outpatient visit 15 minutes Gasper Nelson DO Work Phone: [facility] Comment on above: Chronic obstructive pulmonary disease with acute exacerbation (HCC) (Primary Dx); Influenza Start: 09-28-2024 End: 09-30-2024 Refill Gasper Maggie Argentina DO Work Phone: [facility] Start: 09-14-2024 End: 09-16-2024 Refill Gasper Serrano Argentina DO Work Phone: [facility] [place] Start: 07-29-2024 End: 07-29-2024 [facility] Start: 07-29-2024 End: 07-29-2024 Subsequent hospital visit by physician Gasper Maggie Nelson Work Phone: [facility] Comment on above: Abnormal CT scan of lung; Smoker Start: 07-24-2024 End: 07-24-2024 Refill Gasper Nelson DO Work Phone: [facility] Start: 06-28-2024 End: 07-01-2024 Telephone encounter Gasper Nelson DO Work Phone: [facility] Start: 06-11-2024 End: 06-11-2024 Refill Gasper Nelson DO Work Phone: [facility] Start: 04-29-2024 End: 04-29-2024 ambulatory Slim Weiss Facility:[facility] Start: 04-23-2024 End: 06-20-2024 Telephone encounter Joann Jane [facility] Comment on above: Care Coordination (L aldair Screening Follow up reminder - certified letter sent ) Start: 04-17-2024 End: 04-17-2024 Refill Gasper Nelson DO Work Phone: [facility] Start: 04-11-2024 End: 04-11-2024 Telephone encounter Gasper Nelson DO Work Phone: [facility] Comment on above: Other (Scheduling at [facility]) Start: 03-20-2024 ambulatory Counts Include [facility] Facility:[facility] Start: 02-22-2024 End: 02-22-2024 Telephone encounter Gasper Nelson DO Work Phone: [facility] Comment on above: Referral (Dr Weiss) Start: 02-22-2024 End: 02-22-2024 Office outpatient visit 25 minutes Gasper Nelson Work Phone: [facility] Comment on above: Chronic obstructive pulmonary disease, unspecified COPD type (HCC) (Primary Dx); Abnormal CT scan of lung; Hypercholesterolemia; Colon cancer screening; Breast cancer screening by mammogram; Depression, unspecified depression type; Gastroesophageal reflux disease without esophagitis; Ex-smoker for less than 1 year Start: 02-05-2024 Telephone encounter Gasper byrnes DO Work Phone: [facility] Comment on above: Results Start: 01-02-2024 Refill Gasper vargas DO Work Phone: [facility] Start: 01-01-2024 Orders Only Gasper vargas DO Work Phone: [facility] Start: 12-24-2023 Orders Only Gasper vargas DO Work Phone: [facility] Start: 12-22-2023 Telephone encounter Gasper byrnes DO Work Phone: [facility] Comment on above: Appointment ([facility]) Start: 12-21-2023 Orders Only Gasper vargas DO Work Phone: [facility] Comment on above: COPD with acute exac erbation (HCC); Lower resp. tract infection Start: 12-18-2023 End: 12-18-2023 Subsequent hospital visit by physician Gasper Nelson DO Work Phone: [facility] Comment on above: Smoker; Moderate smoker (20 or less per day) Start: 12-17-2023 Refill Gasper vargas DO Work Phone: [facility] Start: 08-01-2023 Telephone encounter Gasper byrnes DO Work Phone: [facility] Comment on above: Orders (LDCT due in November 2023) Start: 07-31-2023 End: 07-31-2023 Office outpatient visit 15 minutes Gasper Nelson DO Work Phone: [facility] Comment on above: Chronic obstructive pulmonary disease, unspecified COPD type (HCC) (Primary Dx); Depression, unspecified depression type; Gastroesophageal reflux disease without esophagitis; Hypercholesterolemia Start: 03-14-2023 Telephone encounter Gasper byrnes DO Work Phone: [facility] Comment on above: Handicap Placard Start: 02-27-2023 Telephone encounter Gasper byrnes DO Work Phone: [facility] Comment on above: Scheduling Start: 01-15-2023 Orders Only Gasper vargas DO Work Phone: [facility] Start: 01-13-2023 Telephone encounter Gasper byrnes DO Work Phone: [facility] Comment on above: Orders (LDCT) Start: 01-13-2023 End: 01-13-2023 Office outpatient visit 25 minutes Gasper Nelson DO Work Phone: [facility] Comment on above: Chronic obstructive pulmonary disease, unspecified COPD type (HCC) (Primary Dx); Hypercholesterolemia; Gastroesophageal reflux disease without esophagitis; Smoker; Depression, unspecified depression type Start: 11-14-2022 ambulatory [facility] Start: 11-14-2022 Patient encounter procedure [facility] Glover [facility] Start: 11-14-2022 End: 11-14-2022 Office outpatient visit 25 minutes Siomara Estrada PA-C Work Phone: [facility] Comment on above: COPD with acute exac erbation (CMS/HCC) (HCC) (Primary Dx); Lower resp. tract infection; Smoking Start: 10-24-2022 End: 10-24-2022 ambulatory [facility] Work Phone: Start: 10-24-2022 End: 10-24-2022 Patient encounter procedure [facility]-Radiology, [facility] Start: 10-20-2022 Telephone encounter Danish berumen DO Work Phone: [facility] Comment on above: Orders Start: 10-17-2022 Telephone encounter Danish berumen DO Work Phone: [facility] Comment on above: Orders (Fax 10/03/22 XR Chest SULAIMAN, Pt at [facility]) Start: 10-04-2022 Telephone encounter Danish berumen DO Work Phone: [facility] Comment on above: Advice Only (cough) Start: 10-03-2022 End: 10-03-2022 Patient encounter procedure Danish Davila DO Work Phone: [facility] Comment on above: [facility], subsequent (Primary Dx); Cough, unspecified type; Chronic obstructive pulmonary disease, unspecified COPD type (HCC); Anxiety; Depression, unspecified depression type; Hypercholesterolemia; Mammogram declined; Colonoscopy refused Start: 04-22-2022 End: 04-22-2022 ambulatory [facility] Work Phone: Start: 04-22-2022 End: 04-22-2022 Patient encounter procedure [facility] Start: 01-31-2022 End: 01-31-2022 [facility] Start: 01-11-2022 End: 01-11-2022 Subsequent hospital visit by physician Danish Davila DO Work Phone: [facility] Comment on above: Menopause Start: 01-10-2022 End: 01-10-2022 Patient encounter procedure [facility] Procedures Date Procedure Procedure Detail [...] or Pulmonary Embolism (PE)CRITICAL VALUE CALLED TO [id number] Jalen Jonas.RESULTS READ BACK BY SAME. [...] 04-29-2034 Screening for malignant neoplasm of colon [facility] Start: 12-17-2028 Lipid [address] Lipid Panel [facility] Start: 01-14-2028 Lipid panel Lipid Panel [facility] Start: 06-04-2026 Lipid panel Lipid Panel [facility] Start: 11-12-2025 COVID-19 Vaccine ( season) COVID-19 Vaccine ( season) [facility] Comment on above: Postponed from 05/05/2024 (Patient Refus ed) Start: 11-12-2025 RSV Immunization for Adults (1 - Risk 60-74 years 1-dose series) RSV Immunization for Adults (1 - Risk 60-74 years 1-dose series) [facility] Comment on above: Postponed from 2014 (Patient Refus ed) Start: 05-15-2025 Depression Monitoring Depression Monitoring [facility] Start: 05-12-2025 End: 05-12-2025 Patient encounter procedure [facility] [place] Start: 05-05-2025 Influenza vaccination Influenza Vaccine (Season Ended) [facility] Start: 03-06-2025 [facility] Start: 03-06-2025 [facility] Start: 03-05-2025 Patient discharge [facility] Start: 03-03-2025 Influenza vaccination Influenza Vaccine (#1) [facility] Comment on above: Postponed from 05/05/2024 (Patient Refus ed) Start: 03-03-2025 Referral to gastroenterology service [facility] Start: 03-03-2025 Application of intermittent pneumatic compression device [facility] Start: 03-03-2025 Following clinical pathway protocol [facility] Start: 03-03-2025 Aspiration precautions [facility] Start: 03-03-2025 Assessment of risk of venous thromboembolism [facility] Start: 03-03-2025 Incentive spirometry [facility] Start: 03-03-2025 Inhalation therapy procedure [facility] Start: 03-03-2025 Insertion of catheter into peripheral vein [facility] Start: 03-03-2025 Introduction of urinary catheter [facility] Start: 03-03-2025 Measuring intake and output [facility] Start: 03-03-2025 Oxygen therapy [facility] Start: 03-03-2025 Providing care according to standard [facility] Start: 03-03-2025 Provision of activity privileges [facility] Start: 03-03-2025 Referral to service [facility] Start: 03-03-2025 Tobacco use cessation education [facility] Start: 03-03-2025 Electrocardiographic procedure [facility] Start: 03-03-2025 Measurement of occult blood in stool specimen using immunoassay [facility] Start: 03-03-2025 Respiratory pathogens DNA and RNA panel - Respiratory specimen by SHYLA with probe detection [facility] Start: 03-03-2025 Verification routine [facility] Start: 03-03-2025 Admission procedure [facility] Start: 03-03-2025 Hospital admission, emergency, from emergency room, medical nature [facility] Start: 03-03-2025 End: 03-03-2025 [facility] Start: 03-03-2025 Patient referral to dietitian [facility] Start: 03-02-2025 [facility] Start: 02-17-2025 Patient discharge [facility] Start: 02-15-2025 Following clinical pathway protocol [facility] Start: 02-15-2025 Ambulation without limitation [facility] Start: 02-15-2025 Assessment of risk of venous thromboembolism [facility] Start: 02-15-2025 Catheterization of vein [facility] Start: 02-15-2025 Insertion of catheter into peripheral vein [facility] Start: 02-15-2025 Oxygen therapy [facility] Start: 02-15-2025 Providing care according to standard [facility] Start: 02-15-2025 Verification routine [facility] Start: 02-15-2025 Admission procedure [facility] Start: 02-15-2025 Hospital admission, emergency, from emergency room, medical nature [facility] Start: 02-15-2025 End: 02-15-2025 [facility] Start: 02-15-2025 [facility] Start: 02-15-2025 Inhalation therapy procedure [facility] Start: 11-12-2024 End: 11-12-2025 CBC W Auto Differential panel - Blood CBC auto differential Lab Routine Routine general medical examination at [facility] Hypercholesterolemia Expected: 11/12/2024 (Approximate), Expires: 11/12/2025 [facility] Comment on above: Expected: 11/12/2024 (Approximate), Expi res: 11/12/2025 Start: 11-12-2024 End: 11-12-2025 Comprehensive metabolic 1998 panel - Serum or Plasma Comprehensive metabolic panel Lab Routine Routine general medical examination at [facility] Hypercholesterolemia Expected: 11/12/2024 (Approximate), Expires: 11/12/2025 [facility] Comment on above: Expected: 11/12/2024 (Approximate), Expi res: 11/12/2025 Start: 11-12-2024 End: 01-12-2026 DBT Breast - bilateral screening Bilateral screening mammogram with tomosynthesis Imaging Routine Encounter for screening mammogram for malignant neoplasm of breast Expected: 11/12/2024, Expires: 01/12/2026 [facility] Work Phone: Comment on above: Expected: 11/12/2024, Expires: Start: 11-12-2024 End: 11-12-2025 Lipid 1996 panel - Serum or Plasma Lipid panel Lab Routine Hypercholesterolemia Expected: 11/12/2024 (Approximate), Expires: 11/12/2025 [facility] Comment on above: Expected: 11/12/2024 (Approximate), Expi res: 11/12/2025 Start: 11-12-2024 End: 11-12-[address] [facility] [place] Start: 09-30-2024 End: 09-30-2024 Patient encounter procedure 09/30/2024 4:00 PM EST Office Visit [facility] [address] [place] [phone] Gasper Nelson DO [address] [place] [place] [address] [facility] Start: 09-04-2024 Medicare Advantage Annual Wellness Visit Medicare Advantage Annual Wellness Visit [facility] Start: 08-21-2024 End: 08-21-2024 Patient encounter procedure [facility] Start: 07-29-2024 End: 07-29-2024 Patient encounter procedure 07/29/2024 11:30 AM EST Appointment [facility] [address] [place] [phone] Gasper Nelson DO [address] [place] [phone] [facility] [address] Start: 07-29-2024 Subsequent hospital visit by physician 07/29/2024 11:30 AM EST Hospital Encounter [facility] [address] [place] [phone] Gasper Nelson DO [address] [place] [phone] [facility] [address] Start: 05-05-2024 COVID-19 Vaccine ( season) COVID-19 Vaccine ( season) [facility] Start: 05-05-2024 COVID-19 Vaccine ( season) COVID-19 Vaccine () [facility] Start: 05-05-2024 Influenza vaccination [facility] Start: 04-29-2024 End: 04-29-2024 Patient encounter procedure 04/29/2024 4:00 PM EDT Office Visit [facility] [address] [place] [address] Gasper Nelson DO [address] [place] [address] [facility] Start: 02-24-2024 Screening for malignant neoplasm of colon [facility] Start: 02-22-2024 End: 02-21-2025 CBC W Auto Differential panel - Blood CBC auto differential Lab Routine Chronic obstructive pulmonary disease, unspecified COPD type (HCC) Expected: 02/22/2024 (Approximate), Expires: 02/21/2025 [facility] Comment on above: Expected: 02/22/2024 (Approximate), Expi res: 02/21/2025 Start: 02-22-2024 End: 02-21-2025 Complete PFT pre and post bronchodilator Complete PFT pre and post bronchodilator PFT Routine Chronic obstructive pulmonary disease, unspecified COPD type (HCC) Expected: 02/22/2024 (Approximate), Expires: 02/21/2025 [facility] Comment on above: Expected: 02/22/2024 (Approximate), Expi res: 02/21/2025 Start: 02-22-2024 End: 02-21-2025 Comprehensive metabolic 1998 panel - Serum or Plasma Comprehensive metabolic panel Lab Routine Chronic obstructive pulmonary disease, unspecified COPD type (HCC) Expected: 02/22/2024 (Approximate), Expires: 02/21/2025 [facility] Comment on above: Expected: 02/22/2024 (Approximate), Expi res: 02/21/2025 Start: 02-22-2024 End: 02-21-2025 CT Chest for screening WO contrast CT lung screening follow up low dose Imaging Routine Abnormal CT scan of lung Smoker Expected: 02/22/2024, Expires: 02/21/2025 [facility] Work Phone: Comment on above: Expected: 02/22/2024, Expires: Start: 02-22-2024 End: 04-23-2025 DBT Breast - bilateral screening Bilateral screening mammogram with tomosynthesis Imaging Routine Breast cancer screening by mammogram Expected: 02/22/2024, Expires: 04/23/2025 [facility] Work Phone: Comment on above: Expected: 02/22/2024, Expires: Start: 02-22-2024 End: 02-22-2024 Patient encounter procedure 02/22/2024 1:00 PM EDT Office Visit [facility] [address] [place] [address] Gasper Nelson DO [address] [place] [address] [facility] Start: 02-14-2024 Screening for malignant neoplasm of colon [facility] Start: 02-05-2024 End: 02-05-2024 Patient encounter procedure 02/05/2024 9:00 AM EDT Office Visit [facility] [address] [place] [address] Gasper Nelson DO [address] [place] [address] [facility] Start: 01-22-2024 End: 01-22-2024 Patient encounter procedure 01/22/2024 10:00 AM EDT Office Visit [facility] [address] [place] [address] Gasper Nelson, DO [address] [place] [address] [facility] Start: 11-02-2023 Medicare Advantage Annual Wellness Visit (AWV) Medicare Advantage Annual Wellness Visit (AWV) [facility] Start: 10-03-2023 Depression Screening Depression Screening [facility] Start: 09-04-2023 Medicare Advantage Annual Wellness Visit Medicare Advantage Annual Wellness Visit [facility] Start: 08-01-2023 End: 08-01-2024 CT Chest for screening WO contrast CT lung screening low dose Imaging Routine Smoker Moderate smoker (20 or less per day) Expected: 08/01/2023, Expires: 08/01/2024 [facility] Work Phone: Comment on above: Expected: 08/01/2023, Expires: Start: 07-31-2023 End: 07-31-2024 Lipid 1996 panel - Serum or Plasma Lipid panel Lab Routine Hypercholesterolemia Expected: 07/31/2023 (Approximate), Expires: 07/31/2024 [facility] [employer] Work Phone: Comment on above: Expected: 07/31/2023 (Approximate), Expi res: 07/31/2024 Start: 07-14-2023 End: 07-14-2023 Patient encounter procedure [facility] Start: 05-05-2023 COVID-19 Vaccine ( season) COVID-19 Vaccine ( season) [facility] Start: 05-05-2023 Influenza vaccination Influenza Vaccine (#1) [facility] Start: 04-03-2023 End: 04-03-2023 Patient encounter procedure 04/03/2023 1:15 PM EDT Appointment [facility] [address] [place] [address] Gasper Nelson, DO [address] [place] [address] [facility] [address] Start: 04-02-2023 Depression Monitoring Depression Monitoring [employer] Start: 01-23-2023 End: 01-23-2023 Patient encounter procedure 01/23/2023 Office Visit Family Medicine Kelsie Lisa, TAPE COATER - VASCULAR MANAGER [address] [place] [address] [facility] Start: 01-13-2023 End: 01-14-2024 CBC W Auto Differential panel - Blood CBC auto differential Lab Routine Smoker Expected: 01/13/2023 (Approximate), Expires: 01/14/2024 [employer] Work Phone: Comment on above: Expected: 01/13/2023 (Approximate), Expi res: 01/14/2024 Start: 01-13-2023 End: 01-14-2024 Comprehensive metabolic 1998 panel - Serum or Plasma Comprehensive metabolic panel Lab Routine Hypercholesterolemia Expected: 01/13/2023 (Approximate), Expires: 01/14/2024 [employer] Comment on above: Expected: 01/13/2023 (Approximate), Expi res: 01/14/2024 Start: 01-13-2023 End: 01-14-2024 CT Chest for screening WO contrast CT lung screening low dose Imaging Routine Smoker Expected: 01/13/2023, Expires: 01/14/2024 [employer] Work Phone: Comment on above: Expected: 01/13/2023, Expires: Start: 01-13-2023 End: 01-14-2024 Lipid 1996 panel - Serum or Plasma Lipid panel Lab Routine Hypercholesterolemia Expected: 01/13/2023 (Approximate), Expires: 01/14/2024 [employer] Comment on above: Expected: 01/13/2023 (Approximate), Expi res: 01/14/2024 Start: 01-13-2023 End: 01-14-2024 Thyrotropin [Units/volume] in Serum or Plasma TSH Lab Routine Hypercholesterolemia Expected: 01/13/2023 (Approximate), Expires: 01/14/2024 [employer] Comment on above: Expected: 01/13/2023 (Approximate), Expi res: 01/14/2024 Start: 01-11-2023 Screening for malignant neoplasm of breast Mammogram [facility] Start: 01-05-2023 Annual Wellness Visit (AWV) [facility] Wellness [facility] (AWV) [facility] Start: 12-24-2022 Depression Monitoring Depression Monitoring [facility] Start: 10-18-2022 End: 10-18-2023 Alanine aminotransferase [Enzymatic activity/volume] in Serum or Plasma ALT Lab Routine Hypercholesterolemia Expected: 10/18/2022 (Approximate), Expires: 10/18/2023 [facility] Comment on above: Expected: 10/18/2022 (Approximate), Expi res: 10/18/2023 Start: 10-18-2022 End: 10-18-2023 Aspartate aminotransferase [Enzymatic activity/volume] in Serum or Plasma AST Lab Routine Hypercholesterolemia Expected: 10/18/2022 (Approximate), Expires: 10/18/2023 [facility] Comment on above: Expected: 10/18/2022 (Approximate), Expi res: 10/18/2023 Start: 10-18-2022 End: 10-18-2023 Lipid 1996 panel - Serum or Plasma Lipid panel Lab Routine Hypercholesterolemia Expected: 10/18/2022 (Approximate), Expires: 10/18/2023 [facility] Comment on above: Expected: 10/18/2022 (Approximate), Expi res: 10/18/2023 Start: 10-03-2022 End: 10-03-2023 XR Chest 2 Views XR chest 2 views Imaging Routine Cough, unspecified type Expected: 10/03/2022, Expires: 10/03/2023 [facility] Work Phone: Comment on above: Expected: 10/03/2022, Expires: Start: 06-04-2022 Lipid panel Lipids [facility] Start: 04-18-2022 End: 04-18-2022 Patient encounter procedure 04/18/2022 Office Visit Family Medicine Danish Davila, DO [address] [place] [address] [facility] Start: 02-03-2022 Pneumococcal 65+ years Vaccine (2 - PCV) Pneumococcal 65+ years Vaccine (2 - PCV) [facility] Start: 02-03-2022 Pneumococcal Vaccine: 65+ Years (2 - PCV) Pneumococcal Vaccine: 65+ Years (2 - PCV) [facility] Start: 01-31-2022 [facility] Work Phone: Start: 2014 RSV Immunization aged 60 or older (1 - 1-dose 60+ series) RSV Immunization aged 60 or older (1 - 1-dose 60+ series) [facility] Start: 2014 RSV Immunization for Adults (1 - Risk 60-74 years 1-dose series) RSV Immunization for Adults (1 - Risk 60-74 years 1-dose series) [facility] Start: 2009 Screening for osteoporosis DEXA (modify frequency per FRAX score) [facility] Start: 2004 Screening for malignant neoplasm of breast Breast cancer screen [facility] Start: 2004 Shingles vaccine (1 of 2) Shingles vaccine (1 of 2) [facility] Start: 2004 Zoster Vaccines (1 of 2) Zoster Vaccines (1 of 2) [facility] Start: 1999 Screening for malignant neoplasm of colon [facility] Start: 1973 DTaP/Tdap/Td vaccine (1 - Tdap) DTaP/Tdap/Td vaccine (1 - Tdap) [facility] Start: 1973 DTaP/Tdap/Td Vaccines (1 - Tdap) DTaP/Tdap/Td Vaccines (1 - Tdap) [facility] Start: 1972 Hepatitis C screening [facility] Start: 1954 Hepatitis B Vaccines (1 of 3 - 3-dose series) Hepatitis B Vaccines (1 of 3 - 3-dose series) [facility] Start: 1955 Screening for malignant neoplasm of colon [facility] End: 12-18-2023 CT Chest for screening WO contrast [facility] Work Phone: Comment on above: Once for 1 Occurrences starting 12/18/19 until 12/18/2023 End: 07-29-2024 CT Chest for screening WO contrast [facility] Work Phone: Comment on above: Once for 1 Occurrences starting 07/29/20 until 07/29/[address] [facility] OUTSIDE PROCEDURE SCAN OUTSIDE P ROCEDURE SCAN Procedures Ordered: 12/15/2023 [facility] Comment on above: Ordered: 12/15/2023 Patient Education [facility] Work Phone: Patient referral [facility] Work Phone: End: 01-11-2022 Screening digital breast tomosynthesis bi [facility] Work Phone: Comment on above: Once for 1 Occurrences starting 01/12/20 22 until 01/11/2022 Troponin T.cardiac [Mass/volume] in Serum or Plasma by High sensitivity method [facility] Immunizations Immunization Date Immunization Notes Care Provider Emily vora 01-13-2023 Pneumococcal Conjuga te PCV20, Pf (Prevnar 20) Gasper Argentina DO Work Phone: [facility] [employer] 05-26-2022 Covid-19, Pfizer Bivalent Booster, (Age 12y+), Im, 30 Mcg/0e Gasper Nelson DO Work Phone: [facility] 05-26-2022 Influenza, High-dose Seasonal, Quadrivalent, Preservative Free Gasper Nelson DO Work Phone: [facility] 05-26-2022 influenza virus vacc ine, unspecified formulation Gasper Puneetarleen DO Work Phone: [facility] 12-11-2021 Covid-19, Pfizer Gra y Top, Do Not Dilute, (Age 12 Y+), Im, L Jolanta Glover RN [facility] 06-28-2021 Pfizer SARS-CoV-2 Vaccination Jolanta Glover RN [facility] 06-04-2021 Influenza, High-dose , Quadv, 65 yrs +, IM (Fluzone) Danish Davila DO Work Phone: [facility] Work Phone: 02-03-2021 pneumococcal polysaccharide vaccine, 23 valent Danish Davila DO [facility]: 10-14-2020 COVID-19, Pfizer Pur ple top, DILUTE for use, 12+ yrs, 30mcg/0.3mL dose Danish Davila DO Work Phone: [facility] Work Phone: 09-23-2020 COVID-19, Pfizer Pur ple top, DILUTE for use, 12+ yrs, 30mcg/0.3mL dose Danish Davila DO Work Phone: [facility] 09-25-2013 hepatitis B vaccine, pediatric or pediatric/adolescent dosage [facility] 05-05-2013 Influenza virus vaccine [facility] 05-05-2013 influenza, seasonal, injectable Gasper Nelson DO Work Phone: [facility] 09-04-2009 Pneumococcal Vaccine [facility] Work Phone: 09-04-2009 pneumococcal vaccine , unspecified formulation [facility] 07-14-2009 novel influenza-H1N1 -09, preservative-free, injectable Gasper Nelson DO Work Phone: [facility] 11-28-2008 hepatitis B vaccine, pediatric or pediatric/adolescent dosage Gasper Nelson DO Work Phone: [facility] 06-02-2008 hepatitis B vaccine, pediatric or pediatric/adolescent dosage Gasper Nelson DO Work Phone: [facility] 05-02-2008 hepatitis B vaccine, pediatric or pediatric/adolescent dosage Gasper Nelson DO Work Phone: [facility] Payers Date Payer Category Payer Self-pay [id number] 2019 Medicare HU[employer]NA MEDICARE ADVANTAGE HU[employer]NA MEDICARE [id number] 2019-Present [address] [address] [place] [address] Medicare O [id number] 2019 Medicare HMO HUMAN MEDICARE Member Subscriber Plan / Payer (Effective 2019-Present) Name: Ashley Gómez Relation to Subscriber: Self Name: Ashley Gómez Payer ID: [id number] ([facility]) Type: Medicare HMO Address: [place] [id number] 2019 Medicare [id number] Unknown [id number] Unknown [id number] 2 Unknown [id number] [id number] 2 Unknown [id number] [id number] 2 Unknown [id number] 2 Unknown [id number] [id number] 2 Unknown [id number] [id number] 2 Unknown [id number] [id number] 2 Unknown [id number] [id number] 2 Unknown [id number] [id number] 2 Unknown [id number] [id number] 2 Unknown [id number] [id number] 2 Unknown [id number] [id number] 2 Unknown [id number] [id number] 2 Social History Date Type Detail Facility Start: 03-24-2020 End: 03-06-2025 Tobacco smoking status NHIS Smokes tobacco daily [employer] Work Phone: Start: 09-24-2019 History of tobacco use [employer] Work Phone: Start: 03-24-2020 End: 11-12-2024 Cigarettes smoked current (pack per day) - Reported 1 [employer] Work Phone: Start: 03-24-2020 End: 02-22-2024 Tobacco use and exposure Smokeless tobacco non-user [employer] Work Phone: Start: 12-24-2021 End: 02-10-2025 Alcohol intake Ex-drinker (finding) [employer] Work Phone: Start: 05-06-2021 End: 01-04-2022 History SDOH Alcohol Frequency 1 [employer] Work Phone: Start: 03-24-2020 History SDOH Social Connections Phone 2 [employer] Work Phone: Start: 03-24-2020 History SDOH Social Connections Taoist 3 [employer] Work Phone: Start: 03-24-2020 History SDOH Social Connections Living 4 [employer] Work Phone: Start: 01-04-2022 History SDOH Physica l Activity DPW 0 [employer] Work Phone: Start: 1955 Sex Assigned At Female S MA Start: 07-19-2015 End: 01-31-2022 Tobacco smoking status NHIS Unknown if ever smoked [facility] Start: 05-23-2014 None [facility] Start: 05-07-2021 [facility] Start: 05-07-2021 Non-smoker [facility] Start: 11-04-2022 End: 01-13-2023 Exposure to SARS-CoV-2 (event) Not sure [facility] Start: 01-13-2023 End: 11-12-2024 Tobacco use panel [facility] Start: 06-23-2022 Gender identity Identifies as female gender (finding) [facility] Start: 06-23-2022 Sexual orientation Heterosexual (homar you) [facility] Start: 04-04-2022 Sex Female (finding) [facility] How often do you nee d to have someone help you when you read instructions, pamphlets, or other written material from your doctor or pharmacy [SILS] Never [facility] Has the electric, [employer], [employer], or water company threatened to shut off services in your home in past 12Mo No [facility] Are you now , , , , never or living with a partner? [facility] How often to you hav e a drink containing alcohol? Never [facility] Do you feel stress - tense, restless, nervous, or anxious, or unable to sleep at night because your mind is troubled all the time - these days [OSQ] Not at all [facility] (I/We) worried wheth er (my/our) food would run out before (I/we) got money to buy more. Never true [facility] NEGATED: Highlighted row Not [facility] Goals Date Patient Goal Desired Activity /State Functional Status Date Assessment Result Facility 03-05-2025 Functional status Activity Abili ty Standby Assist [facility] Work Phone: 03-04-2025 Functional status Ambulates [facility] Work Phone: 02-17-2025 Functional status Ambulates [facility] Work Phone: Mental Status Date Assessment Result Facility 03-05-2025 Cognitive function Voice/Name [facility] Work Phone: 03-05-2025 Cognitive function Voice/Name [facility] Work Phone: 03-02-2025 Cognitive function Voice/Name [facility] Work Phone: 02-17-2025 Cognitive function Voice/Name [facility] Work Phone: Clinical Notes 10-03-2022 to 03-06-2025 Note Date & Type Note Facility 03-06-2025 Discharge summary [place] [address]-03-2025 Radiology Diagnostic study note [facility] Imaging Services [address] [place] [id number] Chest PA and Lateral MR#: [id number] Acct: [id number] Name: ASHLEY GÓMEZ Rep #: [id number] : 1955 F 69 From: Swati Cuenca MD PCP: Dr. Gasper Nelson DO Status: RE G ER Study:Chest PA and Lateral Date of Exam: 03/06/25 Exam# [id number] Ordering Dr: Nicko Pandya DO PROCEDURE: CHEST [...] process or significant interval change Reading Location: [id number] CC: Dr. Nicko De Luna DO; Dr. Gasper Nelson DO ~ Resolute Professional: Signed [facility] 03-06-2025 Radiology Diagnostic study note [facility] Imaging Services [address] [place], [place] [id number] Abdomen/Pelvis WITH Contrast MR#: [id number] Acct: [id number] Name: ASHLEY GÓMEZ Rep #: [id number] : 1955 F 69 From: Swati Cuenca MD PCP: Dr. Gasper Nelson DO Status: RE G ER Study:Abdomen/Pelvis WITH Contrast Date of Ex am: 03/06/25 Exam# [id number] Ordering Dr: Nicko Pandya DO PROCEDURE: ABDOMEN/PELVIS [...] acute diverticulitis Degenerative bony changes Reading Location: [id number] CC: Dr. Nicko De Luna DO; Dr. Gasper Nelson DO ~ [employer]olute Professional: Signed [facility] 03-05-2025 Discharge summary Note Date/Time March 05, 2025 10:22am [facility] Medical Records Department [address] [place] [address] Discharge Summary 03/05/25 0727 MR#: [id number] Acct: [id number] Name: ASHLEY GÓMEZ Rep #:[id number] : 1955 69 From: Kelvin Falk MD PCP: Dr. Gasper Petrilla, DO Status:AD M IN Location: [facility] [id number]- 1 Providers Date of Admission: 03/03/25 Primary [...] 84.7 H, Lymph % (Auto) 11.9 L, Cache % (Auto) 2.4, Eos % (Auto) 0.3, [...] Self Care Charges/Coding Visit Charges Inpatient E&M: 15503 Disch Hosp >30min 03/05/25 1022 <Electronically signed by Kelvin Falk MD> Cosigner Signature (if applicable): CC: Dr. Kelvin Falk MD; Dr. Gasper Nelson DO~ Signed [facility] Work Phone: 1(547) 712-838107-02-2025 Discharge summary [facility] Medical Records Department [address] [place] [address] Discharge Summary 03/05/25 0727 MR#: [id number] Acct: [id number] Name: ASHLEY GÓMEZ Rep #:[id number] : 1955 69 From: Kelvin Falk MD PCP: Dr. Gasper Nelson DO Status:AD M IN Location: [place] [address]- 1 Providers Date of Admission: 03/03/25 Primary Care Physician: Dr. Gasper Nelson DO Consultations 03/03/25 07:29 Consult: Gastroenterology Routine Consulting Provider: [facility] Reason for Consult: Hematemesis EMERGENT Consult: [...] 84.7 H, Lymph % (Auto) 11.9 L, Cache % (Auto) 2.4, Eos % (Auto) 0.3, [...] Self Care Charges/Coding Visit Charges Inpatient E&M: 59761 Disch Hosp >30min 03/05/25 1022 Cosigner Signature (if applicable): CC: Dr. Kelvin Falk MD; Dr. Gasper Nelson DO~ Signed [facility]07-02-2025 [facility] Medical Records Department [address] [place] [address] Discharge Summary 03/05/25 0727 MR#: [id number] Acct: [id number] Name: ASHLEY GÓMEZ Rep #: [id number] : 1955 69 From: Kelvin Falk MD PCP: Dr. Gasper Nelson DO Status:ADM IN Location: [place] [id number] Providers Date of Admission: 03/03/25 Primary Care Physician: Dr. Gasper Nelson DO Consultations 03/03/25 07:29 Consult: Gastroenterology Routine Consulting Provider: [facility] Reason for Consult: Hematemesis EMERGENT Consult: [...] 84.7 H, Lymph % (Auto) 11.9 L, Cache % (Auto) 2.4, Eos % (Auto) 0.3, [...] H, Calcium 9.6, Robert (more content not included)...[facility]07-01-2025 Progress note Author Kelvin Falk [facility] Note Date/Time March 04, 2025 12:23 pm [facility] Medical Records Department [address] [place] [address] Progress Note - Hospitalist 03/04/25 1215 MR#: [id number] Acct: [id number] Name: ASHLEY GMÓEZ Rep #:[id number] : 1955 69 From: Kelvin Falk MD PCP: Dr. Gasper Nelson, DO Status:AD M IN Location: [place] [address]- 1 Reason for Visit Reason for Visit: [...] on presentation Charges/Coding Visit Charges Inpatient E&M: 15653 Subs Hosp L2 03/04/25 1223 <Electronically signed by Kelvin Falk MD> Cosigner Signature (if applicable): CC: ~ Signed [facility] Work Phone: 1(249) 661-966907-01-2025 Progress note [facility] Medical Records Department [address] [place] [address] Progress Note - Hospitalist 03/04/25 1215 MR#: [id number] Acct: [id number] Name: ASHLEY GÓMEZ Rep #:[id number] : 1955 69 From: Kelvin Falk MD PCP: Dr. Gasper Nelson, DO Status:AD M IN Location: [place] [address] Reason for Visit Reason for Visit: Diagnoses [...] on presentation Charges/Coding Visit Charges Inpatient E&M: 04672 Subs Hosp L2 03/04/25 1223 Cosigner Signature (if applicable): CC: ~ Signed [facility]06-30-2025 Progress note Author [facility] Note Date/Time March 03, 2025 5:53 pm [facility] Medical Records Department [address] [place] [address] Progress Note - Hospitalist 03/03/25 175 MR#: [id number] Acct: [id number] Name: ASHLEY GÓMEZ Rep #:[id number] : 1955 69 From: Bunny Avilez DO PCP: Dr. Gasper Nelson, DO Status:AD M IN Location: [place] [address]- Hospitalist Note Patient was seen and examined [...] Cosigner Signature (if applicable): CC: ~ Signed [facility] Work Phone: 1(951) 409-962506-30-2025 Consult note Author Peyton Christopher [facility] Note Date/Time March 03, 2025 4:46 pm [facility] Medical Records Department [address] [place] [address] Anesthesia Postop Eval II 03/03/25 1645 MR#: [id number] Acct: [id number] Name: ASHLEY GÓMEZ Rep #:[id number] : 1955 69 From: Peyton Christopher CRNA PCP: Dr. Gasper Nelson, DO Status:AD M IN Y Race: C Location: [place] [address] 8-1 Anesthesia Postop Eval I Sum Postop Eval Completion status Anesthesia document: Postop Eval 1 completed: Yes Anesthesia Postop Eval I Summary Anesthesia Postop Eval I Summary: Anesthesia Postop Eval I: Assessment Summary Airway patent Yes 03/03/25 14:08 [email or web address] Spontaneous unlabored Yes 03/03/25 14:08 [email or web address].TNES respirations Mental status nausea No 03/03/25 14:08 [email or web address].TNES Vomiting No 03/03/25 14:08 [email or web address].TNES Anesthesia Postop Eval I: Fluid Summary Crystalloid volume administer 200 03/03/25 14:08 COOKY PACKER.TNES (ml) Colloids volume administered ( ml) Blood Product volume administered (ml) Total IV fluid infused 200 03/03/25 14:08 [email or web address].TNES Anesthesia Postop Eval I: Summary Notes Anesthesia Complication No 03/03/25 14:08 [email or web address].TNES Anesthesia Complication Comment: Post-operative progress note Anesthesia: Postop Eval II Evaluation Mental status: Awake Pain Level: 1 nausea: No Vomiting: No 03/03/25 1646 <Electronically signed by Peyton bacon CRNA> Date _ Peyton Christopher CRNA Cosigner Signature: Date CC: ~ Signed [facility] Work Phone: 1(727) 222-734206-30-2025 Progress note [facility] Medical Records Department [address] [place] [address] Progress Note - Hospitalist 03/03/25 1751 MR#: [id number] Acct: [id number] Name: ASHLEY GÓMEZ Rep #:[id number] : 1955 69 From: Bunny Avilez DO PCP: Dr. Gasper Nelson DO Status:AD M IN Location: [place] [address] Hospitalist Note Patient was seen and examined [...] Cosigner Signature (if applicable): CC: ~ Signed [facility]06-30-2025 Consult note [facility] Medical Records Department [address] [place] [address] Anesthesia Postop Eval II 03/03/25 1645 MR#: [id number] Acct: [id number] Name: ASHLEY GÓMEZ Rep #:[id number] : 1955 69 From: Peyton Christopher CRNA PCP: Dr. Gasper Nelson, DO Status:AD M IN Y Race: C Location: [place] [address] Anesthesia Postop Eval I Sum Postop Eval Completion status Anesthesia document: Postop Eval 1 completed: Yes Anesthesia Postop Eval I Summary Anesthesia Postop Eval I Summary: Anesthesia Postop Eval I: Assessment Summary Airway patent Yes 03/03/25 14:08 [email or web address] [email or web address] Spontaneous unlabored Yes 03/03/25 14:08 [email or web address].TNES respirations Mental status nausea No 03/03/25 14:08 [email or web address].TNES Vomiting No 03/03/25 14:08 COOK[employer] [email or web address].TNES Anesthesia Postop Eval I: Fluid Summary Crystalloid volume administer 200 03/03/25 14:08 COOKY [email or web address].TNES (ml) Colloids volume administered ( ml) Blood Product volume administered (ml) Total IV fluid infused 200 03/03/25 14:08 [email or web address].[email or web address] Anesthesia Postop Eval I: Summary Notes Anesthesia Complication No 03/03/25 14:08 [email or web address].[email or web address] Anesthesia Complication Comment: Post-operative progress note Anesthesia: Postop Eval II Evaluation Mental status: Awake Pain Level: 1 nausea: No Vomiting: No 03/03/25 1646 a COOKY PACKER> Date _ Peyton Christopher COOKY PACKER Cosigner Signature: Date CC: ~ Signed [facility]06-30-2025 Consult note Author Mack Stone [facility] Note Date/Time March 03, 2025 2:08 pm [facility] Medical Records Department [address] [place] [address] Anesthesia Postop Eval I 03/03/251407 MR#: [id number] Acct: [id number] Name: ASHLEY GÓMEZ Rep #:[id number] : 1955 69 From: Mack BOND PCP: Dr. Gasper Nelson, DO Status:AD M IN Y Race: C Location: [place] [address] Anesthesia: Postop Eval I Current Vital Signs [...] CRNA Cosigner Signature: Date CC: ~ Signed [facility] Work Phone: 1(516) 516-304106-30-2025 Consult note Author David Valadez [facility] Note Date/Time March 03, 2025 1:38 pm [facility] Medical Records Department [address] [place] [address] Pre-Anesthesia Evaluation 03/03/25 1332 MR#: [id number] Acct: [id number] Name: ASHLYE GÓMEZ Rep #:[id number] : 1955 69 From: David Valadez MD PCP: Dr. Gasper Nelson, DO Status:AD M IN Y Race: C Location: [place] [address] ASA Classification* ASA Classification ASA Classification: 3 [...] Procedure(s): Esophagogastroduodenoscopy. Anesthesia History Anesthesia History - inspector type: Anesthesia History - inspector type Hx Hospitalization No 04/26/24 14:43 Any Problems [...] sips of water?: Yes PONV PONV - inspector type: PONV - inspector type Female HX of Motion Sickness HX of N/V After Surgery Non-Smoker Duration of Surgery greater than 60 minutes Number of Risk Factors PONV Score Height & Weight Height & Weight: Anesthesia: Height & Weight Height 5 ft 4 in 03/03/25 10:07 Weight: 47.1 kg 03/03/25 10:07 Body Mass Index (BMI) 17.8 03/03/25 12:10 Respiratory Assessment Respiratory Assessment - inspector type: Respiratory Tract Infection Hx - inspector type Hx Respiratory Tract Infection No 04/26/24 14:43 STOP Sleep Apnea STOP Sleep Apnea - inspector type: STOP Sleep Apnea - inspector type Hx Hypertension No 03/03/25 04:02 Hx Sleep [...] 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 - inspector type: Tobacco Use History - inspector type Tobacco Use Non-smoker 05/07/21 09:04 Smoking Status Current every day smoker 03/03/25 04:02 Hx Tobacco Use Yes 03/03/25 04:02 Years Smoking Packs Smoked per Day Smoking Cessation Date was within the last 15 years Hx Smoking Cessation Date Hx Smoking Cessation No 03/03/25 04:02 Counseling Hematologic Medial History Hematologic Hx - inspector type: Hematologic Medical Hx - bond runner Hx of Blood Transfusion No 03/03/25 04:02 [...] confused, unrespo /Reproduction History /Reproductive History - inspector type: /Reproductive Hx- inspector type Hx Now No 03/03/25 12:10 Gestational Age [...] mls @ 15 mls/hr 03/03/25 04:03 IV .[id number] PRN Saline Flush Sodium Chloride 250 mls @ 15 mls/hr 03/03/25 04:03 IV .[id number] PRN Additional IVPB Infusion Lactated Ringer's 1,000 [...] none current occupational status: employed current occupation: [employer] Smoking Status: Current every day smoker tobacco type: cigarettes Tobacco: How many years used: 4 alcohol intake: former substance use type: does not use Review of Systems (Anesthesia) ROS Narrative System reviewed and no additional complaints, except as documented. 03/03/25 1333 <Electronically signed by David hinkle MD> Date _ David Valadez MD Cosigner Signature: Date CC: ~ Signed [facility] Work Phone: 1(503) 529-584006-30-2025 Progress note Author Slim Friend [facility] Note Date/Time March 03, 2025 12:2 7pm [facility] Medical Records Department [address] [place] [address] Progress Note 03/03/25 1223 MR#: [id number] Acct: [id number] Name: ASHLEY GÓMEZ Rep #:[id number] : 1955 69 From: Slim Weiss DO PCP: Dr. Gasper Nelson, DO Status:AD M IN Location: [facility] [id number]- 1 Progress Note 69-year-old with multiple medical problems who was recently discharged from [facility] for COPD exacerbation. She presented to the [facility] ED on 03/03/2025 with history of approximately [...] with COPD, history of non-ST segment elevation NM who presentswith multiple episodes of hematemesis. Differential diagnosis does include Marcela- Arriola tear, or esophagitis, peptic ulcer disease and less likely neoplasia. She should undergo an upper endoscopy evaluate upper GI tract. She was explained alternatives, risk, benefits include not withstanding bleeding, infection, sepsis, perforation, need for emergent . She will have an ASA of 3. Visit Charges Inpatient E&M: 32231 Subs Hosp L3 03/03/25 1229 <Electronically signed by Slim Weiss DO> Slim Weiss DO Cosigner Signature (if applicable): CC: ~ Signed [facility] Work Phone: 1(265) 505-497006-30-2025 Consult note [facility] Medical Records Department [address] [place] [address] Anesthesia Postop Eval I 03/03/25 1408 MR#: [id number] Acct: [id number] Name: ASHLEY GÓMEZ Rep #:[id number] : 1955 69 From: Mack BOND PCP: Dr. Gasper Nelson, DO Status:AD M IN Y Race: C Location: [place] [address] Anesthesia: Postop Eval I Current Vital Signs Temperature: 99.4 F Pulse Rate: 91 Blood Pressure: 132/69 Respiratory Rate: 16 Pulse Ox: 99 Assessment Airway patent: Yes Spontaneous unlabored respirations: Yes nausea: No Vomiting: No Anesthesia Complication: No Fluid Hydration Crystalloid volume administer (ml): 200 Total IV fluid infused: 200 Progress Note Anesthesia document: Postop Eval 1 completed: Yes 03/03/25 140 COOKY PACKER> Date _ Mack Stone COOKY PACKER Cosigner Signature: Date CC: ~ Signed [facility]06-30-2025 Procedure note [facility] Medical Records Department [address] [place] [address] EGD Report MR#: [id number] Acct: [id number] Name: ASHLEY GÓMEZ Rep #:[id number] : 1955 69 From: Slim Weiss DO [...] pathology results. Procedure Code(s): --- Professional --- 44027, Small intestinal endoscopy, enteroscopy beyond second portion of duodenum, not including ileum; with biopsy, single or multiple CPT copyright 2021 [employer]. All rights reserved. The codes documented in this report are preliminary and upon geology scientist review may be revised to meet current compliance requirements. Slim Weiss DO 03/03/2025 2:03:52 PM This report has been signed electronically. Number of Addenda: 0 Note Initiated On: 03/03/2025 1:55 PM 03/03/25 1404 Date _ Slim Weiss DO Cosigner Signature: Date (if indicated) CC: Dr. Gasper Nelson DO; Slim Weiss DO ~ Date Dictated: 03/03/25 1355 Date Transcribed: Resolute Professional: RF Signed [facility]06-30-2025 Procedure note [facility] Medical Records Department [address] [place] [address] Operative Report - CC Letter MR#: [id number] Acct: [id number] Name: ASHLEY GÓMEZ Rep #:[id number] : 1955 69 From: Slim Weiss DO [...] ~ Date Dictated: 03/03/25 1355 Date Transcribed: Resolute Professional: RF Signed [facility]06-30-2025 Consult note [facility] Medical Records Department [address] [place] [address] Pre-Anesthesia Evaluation 03/03/25 1332 MR#: [id number] Acct: [id number] Name: ASHLEY GÓMEZ Rep #:[id number] : 1955 69 From: David Valadez MD PCP: Dr. Gasper Nelson DO Status:AD M IN Y Race: C Location: [place] [address] ASA Classification* ASA Classification ASA Classification: 3 [...] Procedure(s): Esophagogastroduodenoscopy. Anesthesia History Anesthesia History - inspector type: Anesthesia History - inspector type Hx Hospitalization No 04/26/24 14:43 Any Problems [...] sips of water?: Yes PONV PONV - inspector type: PONV - inspector type Female HX of Motion Sickness HX of N/V After Surgery Non-Smoker Duration of Surgery greater than 60 minutes Number of Risk Factors PONV Score Height & Weight Height & Weight: Anesthesia: Height & Weight Height 5 ft 4 in 03/03/25 10:07 Weight: 47.1 kg 03/03/25 10:07 Body Mass Index (BMI) 17.8 03/03/25 12:10 Respiratory Assessment Respiratory Assessment - inspector type: Respiratory Tract Infection Hx - inspector type Hx Respiratory Tract Infection No 04/26/24 14:43 STOP Sleep Apnea STOP Sleep Apnea - inspector type: STOP Sleep Apnea - inspector type Hx Hypertension No 03/03/25 04:02 Hx Sleep [...] 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 - inspector type: Tobacco Use History - inspector type Tobacco Use Non-smoker 05/07/21 09:04 Smoking Status Current every day smoker 03/03/25 04:02 Hx Tobacco Use Yes 03/03/25 04:02 Years Smoking Packs Smoked per Day Smoking Cessation Date was within the last 15 years Hx Smoking Cessation Date Hx Smoking Cessation No 03/03/25 04:02 Counseling Hematologic Medial History Hematologic Hx - inspector type: Hematologic Medical Hx - bond runner Hx of Blood Transfusion No 03/03/25 04:02 [...] confused, unrespo /Reproduction History /Reproductive History - inspector type: /Reproductive Hx- inspector type Hx Now No 03/03/25 12:10 Gestational Age [...] mls @ 15 mls/hr 03/03/25 04:03 IV .[id number] PRN Saline Flush Sodium Chloride 250 mls @ 15 mls/hr 03/03/25 04:03 IV .[id number] PRN Additional IVPB Infusion Lactated Ringer's 1,000 [...] none current occupational status: employed current occupation: [employer] Smoking Status: Current every day smoker tobacco type: cigarettes Tobacco: How many years used: 4 alcohol intake: former substance use type: does not use Review of Systems (Anesthesia) ROS Narrative System reviewed and no additional complaints, except as documented. 03/03/25 1338 arin CHISHOLM> Date _ David Valadez MD Cosigner Signature: Date CC: ~ Signed [facility]06-30-2025 Progress note [facility] Medical Records Department [address] [place] [address] Progress Note 03/03/25 1223 MR#: [id number] Acct: [id number] Name: ASHLEY GÓMEZ Rep #:[id number] : 1955 69 From: Slim Friend DO PCP: Dr. Gasper Nelson DO Status:AD M IN Location: [place] [address] Progress Note 69-year-old with multiple medical problems who was recently discharged from [facility] for COPD exacerbation. She presented to the [facility] ED on 03/03/2025 with history of approximately [...] with COPD, history of non-ST segment elevation NM who presentswith multiple episodes of hematemesis. Differential diagnosis does include Marcela-Arriola tear, or esophagitis, peptic ulcer disease and less likely neoplasia. She should undergo an upper endoscopy evaluate upper GI tract. She was explained alternatives, risk, benefits include not withstanding bleeding, infection, sepsis, perforation, need for emergent . She will have an ASA of 3. Visit Charges Inpatient E&M: 53807 [facility] Hosp 03/03/25 1227 Slim Friend DO Cosigner Signature (if applicable): CC: ~ Signed [facility]06-30-2025 Discharge summary Author Abdulkadir Peralta [facility] Note Date/Time March 03, 2025 7:01 am [facility] Medical Records Department [address] [place] [address] Emergency Department Summary 03/02/25 MR#: [id number] Acct: [id number] Name: ASHLEY GÓMEZ Rep #:[id number] : 1955 69 From: Abdulkadir Peralta DO PCP: Dr. Gasper Nelson, Status:AD M IN Location: [address] History of Present Illness Chief Complaint: Chest Pain Detail of Chief Complaint: Chest pain and not feeling well Informant: patient Narrative Narrative: Patient presents to the emergency department via EMS with multiple complaints. She states that she was recently in [place] 2 days ago when she started getting [...] wear home O2. She denies any diarrhea. [facility] Medical History Hypokalemia Smoker Hypoxia COPD exacerbation [...] after being hospitalized in a hospital in [place]. She presents with vomiting as well which [...] corrected for age. Lactate was 2.4. Troponin [id number]. LFTs showed an AST of 40 with [...] 82.4 H Lymph % (Auto) 11.1 L Cache % (Auto) 5.4 Eos % (Auto) 0.3 [...] IMPRESSION: No acute chest findings Reading Location: [facility]-2 Chest/Abdomen/Pelvis CT 03/03/25 01:31 IMPRESSION: Right lung band atelectasis. Esophageal reflux. Reading Location: [place] [address] Discharge Plan Dx/Rx/DC Orders Clinical Impression: Non-ST elevated myocardial infarction, Intractable nausea and vomiting, Hypoxemia, History of COPD Disposition Disposition: Acute Care Hospital [facility] What to do if you have Problems For any increased pain, shortness of breath, bleeding, nausea or vomiting, chestpain, or any unexpected problems, contact your Primary Care Provider. Call [facility] ([phone]) or report to the closest Emergency Room. Call 911 if necessary. 03/03/25 0701 <Electronically signed by Abdulkadir Peralta DO> Cosigner Signature (if applicable): CC: Dr. Gasper Nelson DO ~ Signed [facility] Work Phone: 1(740) 302-204006-30-2025 Discharge summary [facility] Medical Records Department [address] [place] [address] Emergency Department Summary 03/02/25 MR#: [id number] Acct: [id number] Name: ASHLEY GÓMEZ Rep #:[id number] : 1955 69 From: Abdulkadir Peralta DO PCP: Dr. Gasper Nelson DO Status:AD M IN Location: [address] History of Present Illness Chief Complaint: Chest Pain Detail of Chief Complaint: Chest pain and not feeling well Informant: patient Narrative Narrative: Patient presents to the emergency department via EMS with multiple complaints. She states that she was recently in [place] 2 days ago when she started getting [...] wear home O2. She denies any diarrhea. [facility] Medical History Hypokalemia Smoker Hypoxia COPD exacerbation [...] none current occupational status: employed current occupation: [employer] Smoking Status: Current every day smoker [...] shortness of breath after being hospitalized in [facility] in [place]. She presents with vomiting as well which [...] corrected for age. Lactate was 2.4. Troponin [id number]. LFTs showed an AST of 40 with [...] 82.4 H Lymph % (Auto) 11.1 L Cache % (Auto) 5.4 Eos % (Auto) 0.3 [...] of COPD Disposition Disposition: Acute Care Hospital [facility] What to do if you have Problems For any increased pain, shortness of breath, bleeding, nausea or vomiting, chestpain, or any unexpected problems, contact your Primary Care Provider. Call [employer] [facility] ([phone]) or report tothe closest Emergency Room. Call 911 if necessary. 03/03/25 0701 Cosigner Signature (if applicable): CC: Dr. Gasper Nelson, DO ~ Signed [facility]06-30-2025 History and physical note Author Tonja Jo [facility] Note Date/Time March 03, 2025 4:05 am [facility] Medical Records Department [address] [place] [address] H&P Exam - Hospitalist 03/03/25 0313 MR#: [id number] Acct: [id number] Name: ASHLYE GÓMEZ Rep #:[id number] : 1955 69 From: Tonja Jo MD PCP: Dr. Gasper Nelson, DO Status:AD M IN Location: [place] [id number]- [id number] HPI - General General Date of [...] therapy of note who presents to the [facility] ED on 03/03/2025 with history of approximately 72 hours of onset of malaise, fatigue with nausea and emesis reportedly hospitalized in [place] however she left AMA to return to [facility] reporting that she has been having hematemesis [...] 1, promethazine 12.5 mg IM x 1. [facility] Medical History Hypokalemia Smoker Hypoxia COPD [...] none current occupational status: employed current occupation: [employer] Smoking Status: Current every day smoker tobacco [...] (Auto) 82.4 H, Lymph % (Auto) 11.1 L,Cache % (Auto) 5.4, Eos % (Auto) 0.3, [...] therapy of note who presents to the [facility] ED on 03/03/2025 with history of approximately 72 hours of onset of malaise, fatigue with nausea and emesis reportedly hospitalized in [place] however she left AMA to return to [facility] reporting that she has been having hematemesis [...] Patient does not have healthcare power of erisa attorney or living will in place but [...] 16 minutes. Charges/Coding Visit Charges Inpatient E&M: 48271 Init Hosp L3 Procedures Hospitalists Procedures: 77175 Advncd Care Plan 30 Min 03/03/25 8255 <Electronically signed by Tonja Jo MD> Cosigner Signature (if applicable): CC: Dr. Tonja Jo MD; Dr. Gasper Nelson, DO~ Signed [facility] Work Phone: 1(558) 998-811006-30-2025 History and physical note [facility] Medical Records Department [address] [place] [address] H&P Exam - Hospitalist 03/03/25 0313 MR#: [id number] Acct: [id number] Name: ASHLEY GÓMEZ Rep #:[id number] : 1955 69 From: Tonja Jo MD PCP: Dr. aGsper Nelson, Status:AD M IN Location: [facility] [id number]- 1 HPI - General General Date of [...] therapy of note who presents to the [facility] ED on 03/03/2025 with history of approximately 72 hours of onset of malaise, fatigue with nausea and emesis reportedly hospitalized in [place] however she leftAMA to return to [facility] reporting that she has been having hematemesis [...] 1, promethazine 12.5 mg IM x 1. [facility] Medical History Hypokalemia Smoker Hypoxia COPD [...] none current occupational status: employed current occupation: [employer] Smoking Status: Current every day smoker tobacco [...] %(Auto) 82.4 H, Lymph % (Auto) 11.1 L,Cache % (Auto) 5.4, Eos % (Auto) 0.3, [...] therapy of note who presents to the [facility] ED on 03/03/2025 with history of approximately 72 hours of onset of malaise, fatigue with nausea and emesis reportedly hospitalized in [place] however she leftAMA to return to [facility] reporting that she has been having hematemesis [...] Patient does not have healthcare power of erisa attorney or living will in place but [...] 16 minutes. Charges/Coding Visit Charges Inpatient E&M: 84454 Init Hosp L3 Procedures Hospitalists Procedures: 29064 Advncd Care Plan 30 Min 03/03/25 0405 Cosigner Signature (if applicable): CC: Dr. Tonja Jo MD; Dr. Gasper Nelson, DO~ Signed [facility]06-30-2025 Radiology Diagnostic study note [facility] Imaging Services [address] [place], [place] [address] CT Chest, Abd, Pel w/Contrast MR#: [id number] Acct: [id number] Name: ASHLEY GÓMEZ Rep #: [id number] : 1955 F 69 From: Flori Vidales MD PCP: Dr. Gasper Nelson DO Status: SOL [facility] ER Study:CT Chest, Abd, Pel w/Contrast Date of E xam: 03/03/25 Exam# [id number] Ordering Dr: Sol Peralta DO PROCEDURE: CT [...] lung band atelectasis. Esophageal reflux. Reading Location: [facility] CC: Dr. Gasper Nelson DO; Dr. Abdulkadir Peralta DO ~ Resolute Professional: Signed [facility]06-30-2025 Radiology Diagnostic study note [facility] Imaging Services [address] [place] [address] Chest 1 View (Portable) MR#: [id number] Acct: [id number] Name: ASHLEY GÓMEZ Rep #: [id number] : 1955 F 69 From: Flori Vidalse MD PCP: Dr. Gasper Nelson DO Status: RE G ER Study:Chest 1 View (Portable) Date of Exam: 03/02/25 Exam# [id number] Ordering Dr: Sol Peralta DO PROCEDURE: CHEST 1 VIEW (PORTABLE) 03/03/2025 REASON FOR EXAM: DYSPNEA TECHNIQUE: Frontal view of the chest. COMPARISON: 02/15/2025 FINDINGS: Scoliosis. Normal heart size. Well inflated lungs. No consolidation, effusion, or pneumothorax. RAD/Chest 1 View (Portable) IMPRESSION: No acute chest findings Reading Location: [facility]-2 CC: Dr. Gasper Nelson DO; Dr. Abdulkadir Peralta DO ~ Resolute Professional: Signed [facility]06-23-2025 Telephone encounter Note* Telephone Encounter - Juju [...] Most recent labs completed in chart? [id number] Miscellaneous Notes* Telephone Encounter - Juju Patton [...] completed in chart? N/A documented in this [facility]06-16-2025 Discharge summary [facility] Medical Records Department [address] [place] [address] Instructions for Home/Discharge Instructions 02/17/25 1052 MR#: [id number] Acct: [id number] Name: ASHLEY GÓMEZ Rep #:[id number] : 1955 69 From: Bunny Avilez DO [...] CC: Dr. Danish Davila DO ~ Signed [facility]06-16-2025 [facility] Medical Records Department [address] [place] [address] Discharge Summary 02/17/25 1059 MR#: [id number] Acct: [id number] Name: ASHLEY GÓMEZ Rep #: [id number] : 1955 69 From: Bunny Avilez DO PCP: Dr. Danish Davila DO Status:DIS IN Location: LA3 [id number] Providers Date of Admission: 02/15/25 Date of [...] was seen in the emergency room at [facility] with complaints of shortness of [...] no acute process. Patient was admitted to [place] [address] for exacerbation of COPD and treated with [...] or = to 20 (more content not included)...[facility]06-15-2025 Progress note Author Bunny Avilez [facility] Note Date/Time February 16, 2025 11:2 2am [facility] Medical Records Department [address] [place] [address] Progress Note - Hospitalist 02/16/25 1117 MR#: [id number] Acct: [id number] Name: ASHLEY GÓMEZ Rep #:[id number] : 1955 69 From: Bunny Avilez DO PCP: Dr. Danish Davila, Status:ADM IN [facility] Reason for Visit Reason for Visit: Diagnoses [...] 35 minutes Charges/Coding Visit Charges Inpatient E&M: 05239 Subs Hosp L2 02/16/25 1122 <Electronically signed by Bunny Avilez DO> Cosigner Signature (if applicable): CC: ~ Signed [facility] Work Phone: 1(195) 727-554406-15-2025 Progress note [facility] Medical Records Department [address] [place] [address] Progress Note - Hospitalist 02/16/25 1117 MR#: [id number] Acct: [id number] Name: ASHLEY GÓMEZ Rep #:[id number] : 1955 69 From: Bunny Avilez DO PCP: Dr. Danish Davila DO Status:ADM IN Location: [place] [address]-1 Reason for Visit Reason for Visit: Diagnoses [...] 35 minutes Charges/Coding Visit Charges Inpatient E&M: 25408 Subs Hosp L2 02/16/25 1122 Cosigner Signature (if applicable): CC: ~ Signed [facility]06-14-2025 History and physical note Author Bunny Avilez [facility] Note Date/Time February 15, 2025 3:06 pm [facility] Medical Records Department [address] [facility] [place] [address] H&P Exam - Hospitalist 02/15/25 7234 MR#: [id number] Acct: [id number] Name: ASHLEY GÓMEZ Rep #:[id number] : 1955 69 From: Bunny Avilez DO PCP: Dr. Danish Davila, DO Status:ADM IN Location: MS3 TF242-2 HPI - General General Date of Admission: 02/15/25 Date of Service: 02/15/25 Chief Complaint: Shortness of breath HPI Narrative ASHLEY GÓMEZ, is a 69 F who presents to the emergency room at [facility] with complaints of shortness of [...] acute infiltrates patient will be admitted to [place] [address] for exacerbation of COPD with hypoxia, she will be given aerosol treatments IV Solu-Medrol, pulse ox will be monitored. [facility] Medical History Wears dentures Wears glasses [...] none current occupational status: employed current occupation: [employer] Smoking Status: Current every day smoker tobacco [...] (Auto) 77.0 H, Lymph % (Auto) 19.2, Cache % (Auto) 1.9, Eos % (Auto) 0.7, [...] 09:25 IMPRESSION: No acute process [facility] Assessment & Plan Assessment/Plan (1) COPD exacerbation: PLAN: Plan 1. Exacerbation of COPD-patient will be admitted to [facility] 3 and given aerosoltreatments and [...] 55 minutes Charges/Coding Visit Charges Inpatient E&M: 77910 Init Hosp L2 02/15/25 1506 <Electronically signed by Bunny Avilez DO> Cosigner Signature (if applicable): CC: Dr. Bunny Avilez, ; Dr. Danish Davila DO~ Signed [facility] Work Phone: 1(508) 483-241006-14-2025 History and physical note [facility] Medical Records Department [address] [facility] [place] [address] H&P Exam - Hospitalist 02/15/25 1459 MR#: [id number] Acct: [id number] Name: ASHLEY GÓMEZ Rep #:[id number] : 1955 69 From: Bunny Avilez DO PCP: Dr. Danish Davila DO Status:ADM IN Location: [facility] RL574-6 HPI - General General Date of Admission: 02/15/25 Date of Service: 02/15/25 Chief Complaint: Shortness of breath HPI Narrative ASHLEY GÓMEZ, is a 69 F who presents to the emergency room at [facility] with complaints of shortness of [...] acute infiltrates patient will be admitted to [place] [address] for exacerbation of COPD with hypoxia, she will be given aerosol treatments IV Solu-Medrol, pulse ox will be monitored. [facility] Medical History Wears dentures Wears glasses [...] none current occupational status: employed current occupation: [employer] Smoking Status: Current every day smoker tobacco [...] (Auto) 77.0 H, Lymph % (Auto) 19.2, Cache % (Auto) 1.9, Eos % (Auto) 0.7, [...] 09:25 IMPRESSION: No acute process [facility] Assessment & Plan Assessment/Plan (1) COPD exacerbation: PLAN: Plan 1. Exacerbation of COPD-patient will be admitted to [place] [address] and given aerosoltreatments and IV Solu-Medrol #2 [...] 55 minutes Charges/Coding Visit Charges Inpatient E&M: 31945 Init Hosp L2 02/15/25 1506 Cosigner Signature (if applicable): CC: Dr. Bunny Avilez, DO; Dr. Danish Davila, DO~ Signed [facility]06-14-2025 Evaluation note* Diagnosis Onset Date Resolution Status Admit Date Hypokalemia acute February 15 11:21am Hypoxia acute February 15 11:21am Smoker acute February 15 11:21am COPD exacerbation chronic February 152024 11:21am [facility] Work Phone: 1(243) 631-228306-14-2025 Evaluation note* Diagnosis Onset Date Resolution Status Admit Date COPD exacerbation inactive February 152024 11:21am Hypokalemia inactive February 15 11:21am Hypoxia inactive February 15 11:21am Smoker inactive February 15 11:21am Hypoxemia acute March 03 3:30am Intractable nausea and vomiting acut e March 03, 2025 3:30am Non-ST elevated myocardial infarction acute March 03, 2025 3:30am History of COPD chronic February 3:30am [facility] Work Phone: 1(356) 235-798506-14-2025 Evaluation note* Diagnosis Onset Date Resolution Status [...] 3:30am History of COPD chronic February 3:30am [facility] Work Phone: 1(828) 478-730906-14-2025 Discharge summary Author Wilfred Bryan [facility] Note Date/Time February 15, 2025 11:1 1am [facility] Medical Records Department [address] [place] [address] Emergency Department Summary 02/15/25 MR#: [id number] Acct: [id number] Name: ASHLEY GÓMEZ Rep #:[id number] : 1955 69 From: Wilfred Bryan MD [...] day. Additionally, sometimes she smokes as well. [facility] Medical History Wears dentures Wears [...] none current occupational status: employed current occupation: [employer] Smoking Status: Current every day smoker tobacco [...] (Auto) 77.0 H Lymph % (Auto) 19.2 Cache % (Auto) 1.9 Eos % (Auto) 0.7 [...] 09:25 IMPRESSION: No acute process Reading [facility] Management Discussion w/another healthcare provider: [...] DO [Primary Care Provider] - Print Language: Estonian What to do if you have Problems For any increased pain, shortness of breath, bleeding, nausea or vomiting, chestpain, or any unexpected problems, contact your Primary Care Provider. Call [facility] ([phone]) or report to the closest Emergency Room. Call 911 if necessary. 02/15/25 1111 <Electronically signed by Wilfred Bryan MD> Cosigner Signature (if applicable): CC: Dr. Danish Davila, DO ~ Signed [facility] Work Phone: 1(155) 748-333106-14-2025 Discharge summary [facility] Medical Records Department [address] [place] [address] Emergency Department Summary 02/15/25 MR#: [id number] Acct: [id number] Name: ASHLEY GÓMEZ Rep #:[id number] : 1955 69 From: Wilfred Bryan MD [...] day. Additionally, sometimes she smokes as well. [facility] Medical History Wears dentures Wears [...] none current occupational status: employed current occupation: [employer] Smoking Status: Current every day smoker tobacco [...] (Auto) 77.0 H Lymph % (Auto) 19.2 Cache % (Auto) 1.9 Eos % (Auto) 0.7 [...] 09:25 IMPRESSION: No acute process Reading Location: [facility] Management Discussion w/another healthcare provider: Hospitalist (Dr. [...] DO [Primary Care Provider] - Print Language: Estonian What to do if you have Problems For any increased pain, shortness of breath, bleeding, nausea or vomiting, chestpain, or any unexpected problems, contact your Primary Care Provider. Call [facility] ([phone]) or report tothe closest Emergency Room. Call 911 if necessary. 02/15/25 1111 Cosigner Signature (if applicable): CC: Dr. Danish Davila DO ~ Signed [facility]06-14-2025 Radiology Diagnostic study note [facility] Imaging Services [address] [place], [place] [address] Chest 1 View (Portable) MR#: [id number] Acct: [id number] Name: ASHLEY GÓMEZ Rep #: [id number] : 1955 F 69 From: Pet er Peer PCP: Dr. Danish Davila DO Status: REG ER Study:Chest 1 View (Portable) Date of Exam: 02/15/25 Exam# [id number] Ordering Dr: Wilfred Bryan MD PROCEDURE: CHEST 1 VIEW (PORTABLE) 02/15/2025 REASON FOR EXAM: SHORTNESS OF BREATH TECHNIQUE: Frontal view of the chest. FINDINGS: Hardware: None Heart: Normal size Lungs: Clear Bones: No aggressive Other: RAD/Chest 1 View (Portable) IMPRESSION: No acute process Reading Location: [facility] CC: Dr. Wilfred Bryan MD; Dr. Danish Davila DO ~ Resolute Professional: Signed [facility]06-10-2025 Telephone encounter Note* Telephone Encounter - Mia Alvarez MA - 02/11/2025 9:02 AM EDT Patient advised and voiced understanding. [facility]Omlvod92-50-0208 Miscellaneous Notes* Telephone Encounter - Mia Alvarez [...] sent in. Please advise documented in this [facility]06-09-2025 Telephone encounter Note* Telephone Encounter - Mia Alvarez MA - 02/10/2025 5:42 PM EDT Called patient to relay provider message left voicemail to call office back. Mychart message sent to patient. Please relay message to patient. [facility] HospitalTtwpce63-70-2966 Miscellaneous Notes* Telephone Encounter - Mia Alvarez [...] sent in. Please advise documented in this [facility]06-09-2025 Note* Addendum Note - Juju Patton MA - 02/10/2025 3:52 PM EDTAddended by: JUJU PATTON on: 02/10/2025 03:52 PM Modules accepted: Orders [facility] HospitalPytbkn79-89-6880 Note* Addendum Note - Juju Patton MA - 02/10/2025 3:52 PM EDTAddended by: JUJU PATTON on: 02/10/2025 03:52 PM Modules accepted: Orders [facility] HospitalNkdxgx52-24-3747 Note* Addendum Note - Juju Patton MA - 02/10/2025 3:52 PM EDTAddended by: JUJU PATTON on: 02/10/2025 03:52 PM Modules accepted: Orders [facility] HospitalMedzar07-79-8183 Note* Addendum Note - Juju Patton MA - 02/10/2025 3:52 PM EDTAddended by: JUJU PATTON on: 02/10/2025 03:52 PM Modules accepted: Orders [facility] HospitalGpfejg25-79-0258 Note* Addendum Note - Juju Patton MA - 02/10/2025 3:52 PM EDTAddended by: JUJU PATTON on: 02/10/2025 03:52 PM Modules accepted: Orders [facility] HospitalSmmylz36-34-8732 Telephone encounter Note* Telephone Encounter - Dory [...] a new script sent in. Please advise [facility] HospitalOrhuoc25-30-6062 Telephone encounter Note* Telephone Encounter - Juju Patton MA - 02/10/2025 10:47 AM EDT Recent Visits Date Type Provider Dept 11/12/24 Office Visit Siomara Estrada PA-C [facility] 02/22/24 Office Visit Gasper Nelson DO [facility] Showing recent visits within past 365 [...] Most recent labs completed in chart? N/A [facility] HospitalRnyxjl30-68-0533 Miscellaneous Notes* Telephone Encounter - Juju Patton MA - 02/10/2025 10:47 AM EDT Recent Visits Date Type Provider Dept 11/12/24 Office Visit Siomara Estrada PA-C [facility] 02/22/24 Office Visit Gasper Nelson DO [facility] Showing recent visits within past 365 [...] completed in chart? N/A documented in this [facility]04-11-2025 Telephone encounter Note* Telephone Encounter - Sara Munoz LPN - 12/13/2024 8:24 AM EDT Recent Visits Date Type Provider Dept 11/12/24 Office Visit Siomara Estrada PA-C [facility] 02/22/24 Office Visit Gasper Nelson DO [facility] Showing recent visits within past 365 [...] CHOLHDLCRATI 4.2 01/13/2023 NONHDLCHOLES 174 (H) 01/13/2023 [facility] HospitalUqsqel09-25-6381 Miscellaneous Notes* Telephone Encounter - Sara Munoz LPN - 12/13/2024 8:24 AM EDT Recent Visits Date Type Provider Dept 11/12/24 Office Visit Siomara Estrada PA-C [facility] 02/22/24 Office Visit Gasper Nelson DO [facility] Showing recent visits within past 365 [...] NONHDLCHOLES 174 (H) 01/13/2023 documented in this [facility]03-31-2025 NoteOutreach to patient to provide information on how to enroll in silver sneakers and she requested refill of Trazadone for sleep issues last filled in 06/28 for 90 days, last OV 11/12/24[facility]03-31-2025 Telephone encounter Note* Telephone Encounter - Brissa Warner RN - 12/02/2024 1:06 PM EDT Outreach to patient to provide information on how to enroll in silver sneakers and she requested refill of Trazadone for sleep issues last filled in 06/28 for 90 days, last OV 11/12/24 [facility] HospitalGfcjyg86-50-6267 Miscellaneous Notes* Telephone Encounter - Brissa Warner RN - 12/02/2024 1:06 PM EDT Outreach to patient to provide information on how to enroll in silver sneakers and she requested refill of Trazadone for sleep issues last filled in 06/28 for 90 days, last OV 11/12/24 documented in this [facility]03-11-2025 Evaluation + Plan note* Assessment [...] as her levels have been adequately controlled [facility] HospitalXalovu64-73-4844 Miscellaneous Notes* Assessment & Plan Note - [...] strongly encouraged smoking cessation. documented in this encounterSFayette County Memorial HospitalSpkqvi71-85-7716 Evaluation + Plan note* Assessment & Plan Note - Siomara Estrada PA-C - 11/12/2024 9:12 AM EDTAssociated Problem(s): GERD (gastroesophageal reflux disease) - Chronic stable she will continue on esomeprazole 40 mg daily. [facility] HospitalOrhptb23-97-2260 Evaluation + Plan note* Assessment & Plan [...] wheezing and congestion strongly encouraged smoking cessation. [facility] HospitalTorzjo19-54-8526 History of Present illness Narrative* Siomara Estrada PA-C - 11/12/2024 8:40 AM EDT Images from the original note were not included. [facility] - [address] [facility] [address] Dept: [phone] Dept Chief Complaint: Ashley Gómez is an [...] this issue and continues to work at [employer]. Would like to get involved with [employer]. Health Habits/Nutrition: Health Habits / Nutrition On [...] current issues, And agreeable to look into [email or web address] Hearing/ Vision: Hearing / Vision Do you [...] to make appointment with his / her eyeglass maker Safety: Safety Do you have a working [...] Housing Stability: Unknown (11/12/2024) documented in this [facility]03-11-2025 Instructions* Patient Instructions* Siomara Estrada [...] Recommendations: A preventive eye exam by an eyeglass maker is recommended every 1-2 years to screen for glaucoma, cataracts, macular degeneration, and other eye disorders. A preventive dental visit is recommended every 6 months. Try to get at least 150 minutes of exercise per week or 10,000 steps per day on a pedometer. You need 1200-1500mg of calcium and 5853-5355 international units of vitamin D per day. [...] bicycle or a motorcycle documented in this [facility]02-27-2025 History of Present illness Narrative* Gasper Serrano Puneetsam, - 10/31/2024 12:00 PM EST Images from the original note were not included. [facility] - [address] [facility] [address] Dept: [phone] Dept Loc: [phone] Patient was identified and seen today via [...] stated that they are currently in the [facility]. If the patient is a [...] DO 10/31/2024 12:20 PM documented in this [facility]02-27-2025 Telephone encounter Note* Telephone Encounter [...] not coughing Protocols used: Cough - Acute Seg-Tgguwrlcll-WEKHI-AH [facility] HospitalKriuis92-27-4741 Miscellaneous Notes* Telephone Encounter - Michell Chin [...] not coughing Protocols used: Cough - Acute Giw-Gzohgrkmkz-SJLLQ-AH documented in this [facility]01-28-2025 Telephone encounter Note* Telephone Encounter - Neeta Villeda RN - 10/01/2024 1:57 PM EST Received signed receipt of certified letter sent to patient. Scanned to media in chart. [facility] HospitalKztenx95-23-1982 Miscellaneous Notes* Telephone Encounter - Neeta Villeda RN - 10/01/2024 1:57 PM EST Received signed receipt of certified letter sent to patient. Scanned to media in chart. * Telephone Encounter - Kianna Stevenson - 06/28/2024 8:47 AM EDT No auth needed. Faxed orders to [facility]-Scheduling for pt to be sched - [...] and assist patient with scheduling. She prefers [place] for imaging location and is available on [...] the recommended 3-month follow- up CT chest. [facility] scheduling and provider office have made multiple attempts to contact patient to assist with scheduling imaging. Navigator mailed patient lung screening follow-up reminder letter and lung nodule patient information. If patient does not call in to schedule imaging, navigator will plan to send certified letter. documented in this [facility]01-27-2025 Telephone encounter Note* Telephone Encounter [...] recent labs completed in chart? N/A None [facility] HospitalVacqqf92-64-2083 Miscellaneous Notes* Telephone Encounter - Mia Alvarez [...] in chart? N/A None documented in this [facility]01-13-2025 Telephone encounter Note* Telephone Encounter [...] CHOLHDLCRATI 4.2 01/13/2023 NONHDLCHOLES 174 (H) 01/13/2023 [facility] HospitalCwgiyc53-98-2483 Miscellaneous Notes* Telephone Encounter - Sara Munoz [...] NONHDLCHOLES 174 (H) 01/13/2023 documented in this [facility]11-20-2024 Telephone encounter Note* Telephone Encounter [...] CHOLHDLCRATI 4.2 01/13/2023 NONHDLCHOLES 174 (H) 01/13/2023 [facility] HospitalSyycdp85-35-0953 Miscellaneous Notes* Telephone Encounter - Mia Alvarez [...] NONHDLCHOLES 174 (H) 01/13/2023 documented in this [facility]10-25-2024 Telephone encounter Note* Telephone Encounter - Helen [...] to get her scheduled. Thank you Contact [place] [id number] Miscellaneous Notes* Telephone Encounter - Helen Jennings [...] scheduled. Thank you Contact documented in this encounterSFayette County Memorial HospitalUmyzcz49-38-9738 Telephone encounter Note* Telephone Encounter - Kianna Stevenson - 06/28/2024 8:47 AM EDT No auth needed. Faxed orders to [facility]-Scheduling for pt to be sched - [facility] will sched/advise pt. My chart mess sent to patient with info to sched. [place] [id number] Miscellaneous Notes* Telephone Encounter - Kianna Stevenson [...] and assist patient with scheduling. She prefers [place] for imaging location and is available on [...] the recommended 3-month follow- up CT chest. [facility] central scheduling and provider office have made multiple attempts to contact patient to assist with scheduling imaging. Navigator mailed patient lung screening follow-up reminder letter and lung nodule patient information. If patient does not call in to schedule imaging, navigator will plan to send certified letter. documented in this [facility]10-24-2024 Telephone encounter Note* Telephone Encounter - Marycruz Mazariegos MA - 06/27/2024 4:27 PM EDT Vincent Perez, It looks like the patient navigator has done all that she can do. So it looks like all avenues havebeen exhausted to try and reach this patient to schedule. [facility] HospitalRgnfiz18-96-0679 Miscellaneous Notes* Telephone Encounter - Marycruz Mazariegos [...] and assist patient with scheduling. She prefers [place] for imaging location and is available on [...] the recommended 3-month follow- up CT chest. [facility] central scheduling and provider office have made multiple attempts to contact patient to assist with scheduling imaging. Navigator mailed patient lung screening follow-up reminder letter and lung nodule patient information. If patient does not call in to schedule imaging, navigator will plan to send certified letter. documented in this encounterSFayette County Memorial HospitalRyujve96-98-7074 Telephone encounter Note* Telephone Encounter - Kianna Stevenson - 06/27/2024 2:02 PM EDT To April to follow up [facility] HospitalFuytfz90-09-3972 Telephone encounter Note* Telephone Encounter - Joann Jane RCP - 06/27/2024 9:43 AM EDT Mrs. Gómez called in after receiving certified letter. She would like to return to complete the recommended lung screening 3 month follow-up imaging previously ordered by Dr. Nelson. Will send message to provider office to place new referral for imaging and assist patient with scheduling. She prefers [place] for imaging location and is available on Monday the if there are any appointments available. [facility] HospitalZdtgwm16-13-2831 NotePatient still has not completed the recommended lung screening follow-up imaging. Navigator mailed certified letter, lung nodule education materials, and offered to assist with overcoming barriers to care.[facility]10-17-2024 Telephone encounter Note* Telephone Encounter - Joann Jane RCP - 06/20/2024 2:31 PM EDT Patient still has not completed the recommended lung screening follow-up imaging. Navigator mailed certified letter, lung nodule education materials, and offered to assist with overcoming barriers to care. [facility] HospitalGihwjm12-12-7739 Miscellaneous Notes* Telephone Encounter - Joann Jane [...] the recommended 3-month follow- up CT chest. [facility] central scheduling and provider office have made multiple attempts to contact patient to assist with scheduling imaging. Navigator mailed patient lung screening follow-up reminder letter and lung nodule patient information. If patient does not call in to schedule imaging, navigator will plan to send certified letter. documented in this encounterSFayette County Memorial HospitalPovbki81-56-6410 Telephone encounter Note* Telephone Encounter - Sara Munoz LPN - 06/11/2024 5:05 PM EDT RX loaded Next ov 08/21/24 [place] [id number] Miscellaneous Notes* Telephone Encounter - Sara Munoz [...] up the medication: Yes documented in this [facility]10-08-2024 Telephone encounter Note* Telephone Encounter [...] prior to picking up the medication: Yes [facility] HospitalEurnzd10-43-7738 [facility] Medical Records Department [address] [place] [address] History Physical Exam 04/29/24 0756 MR#: [id number] Acct: [id number] Name: ASHLEY GÓMEZ Rep #: [id number] : 1955 68 From: Slim Friend DO PCP: Dr. Danish Davila, DO Status:[facility] Location: [place] [address] HPI - General General Date of Admission: [...] Overall she is in fairly good health. [facility] Medical History (Updated 04/26/24 @ 14:43 [...] none current occupational status: employed current occupation: [employer] Smoking Status: Former smoker Tobacco: How many [...] Dr. Danish Davila, DO; Slim Weiss DO SignedWMarymount Hospital08-20-2024 NoteMs. Gómez had a Lung RADS [address] scan on 12/18/2023. Her primary care provider placed a referral for the recommended 3-month follow-up CT chest. [facility] central scheduling and provider office have made multiple attempts to contact patient to assist with scheduling imaging. Navigator mailed patient lung screening follow-up reminder letter and lung nodule patient information. If patient does not call in to schedule imaging, navigator will plan to send certified letter.[facility]08-20-2024 Telephone encounter Note* Telephone Encounter - Joann Jane RCP - 04/23/2024 1:58 PM EDT Ms. Gómez had a Lung RADS [address] scan on 12/18/2023. Her primary care provider placed a referral for the recommended 3-month follow- up CT chest. [facility] central scheduling and provider office have made multiple attempts to contact patient to assist with scheduling imaging. Navigator mailed patient lung screening follow-up reminder letter and lung nodule patient information. If patient does not call in to schedule imaging, navigator will plan to send certified letter. [facility] HospitalRzmxtc49-17-7862 Telephone encounter Note* Telephone Encounter - Marycruz Mazariegos MA - 04/17/2024 7:37 AM EDT Recent Visits Date Type Provider Dept 02/22/24 Office Visit Gasper Nelson DO [facility] 07/31/23 Office Visit Gasper Nelson DO [facility] Showing recent visits within past 365 [...] medications from any other provider? No None [facility] HospitalGxqrff80-59-6876 Miscellaneous Notes* Telephone Encounter - Marycruz Mazariegos MA - 04/17/2024 7:37 AM EDT Recent Visits Date Type Provider Dept 02/22/24 Office Visit Gasper Maggie Argentina, DO [facility] 07/31/23 Office Visit Gasper Nelson DO [facility] Showing recent visits within past 365 [...] other provider? No None documented in this encounterSFayette County Memorial HospitalTgedkb47-76-6864 Telephone encounter Note* Telephone Encounter - aFrida Mary - 04/12/2024 7:31 AM EDT Orders cancelled [facility] HospitalAqmpty23-86-5550 Miscellaneous Notes* Telephone Encounter - Farida Mary - 04/12/2024 7:31 AM EDT Orders cancelled * Telephone Encounter - Rosa Rodas - 04/11/2024 4:07 PM EDT We have been unable to reach your patient to schedule their testing. Test Name: CT lung screening follow up, PFT and Mammo 1st Attempt: 03/30/24 2nd Attempt: 04/11/24 Thanks, [facility] Sched[facility] documented in this [facility]08-08-2024 Telephone encounter Note* Telephone Encounter - Rosa Rodas - 04/11/2024 4:07 PM EDT We have been unable to reach your patient to schedule their testing. Test Name: CT lung screening follow up, PFT and Mammo 1st Attempt: 03/30/24 2nd Attempt: 04/11/24 Thanks, [facility] Scheduling [facility] HospitalXkdlgw12-30-9966 Miscellaneous Notes* Telephone Encounter - Rosa Rodas - 04/11/2024 4:07 PM EDT We have been unable to reach your patient to schedule their testing. Test Name: CT lung screening follow up, PFT and Mammo 1st Attempt: 03/30/24 2nd Attempt: 04/11/24 Thanks, [facility] Scheduling documented in this [facility]06-20-2024 Telephone encounter Note* Telephone Encounter - Kianna Stevenson - 02/22/2024 2:26 PM EDT Referral / orders pended for dx and doctor's signature [facility] HospitalRcxjov35-00-8609 Miscellaneous Notes* Telephone Encounter - Kianna Stevenson - 02/22/2024 2:26 PM EDT Referral / orders pended for dx and doctor's signature documented in this encounterSFayette County Memorial HospitalXyuinj50-27-4978 History of Present illness Narrative* Gasper Serrano Miguelarleen, - 02/22/2024 1:00 PM EDT Images from the original note were not included. [facility] [address] [facility] [address] [facility] [address] Visit type: Established Patient Reason [...] capsule TAKE 1 CAPSULE EVERY MORNING BEFORE [id number] capsule 1 [DISCONTINUED] simvastatin (Zocor) 80 MG [...] changes, or axillary adenopathy documented in this encounterSFayette [facility] Telephone encounter Note* Telephone Encounter - Fawn Hassan MA - 02/09/2024 9:30 AM EDT Pt scheduled with Dr Nelson 02/22/24 [facility]Rmtbkh76-71-3064 Miscellaneous Notes* Telephone Encounter - Fawn Hassan [...] Name of caller: Isauro Contact phone number: [phone] Relationship to Patient: Patient Provider: Dr. Nelson Practice: [facility] Chief Complaint/Reason for Call: Pt Pt had to reschedule appointment. Please contact pt if appointment is not soon enough, pt is concerned FYI Best time of day caller can be reached: Any Patient advised that office/PCP has 24-48 business hours to return their call: No documented in this [facility]06-03-2024 Telephone encounter Note* Telephone Encounter - Fawn Hassan MA - 02/05/2024 11:02 AM EDT Left message for patient to return call to the office to get scheduled please schedule patient either February [address] Argentina dawson. [facility] HospitalYrovgs06-67-1900 Miscellaneous Notes* Telephone Encounter - Fawn Hassan MA - 02/05/2024 11:02 AM EDT Left message for patient to return call to the office to get scheduled please schedule patient either February [address] [place] dawson. * Telephone Encounter - Ramila Lee - 02/05/2024 9:02 AM EDT Name of caller: Isauro Contact phone number: [phone] Relationship to Patient: Patient Provider: Dr. Nelson Practice: [facility] Chief Complaint/Reason for Call: Pt Pt had to reschedule appointment. Please contact pt if appointment is not soon enough, pt is concerned FYI Best time of day caller can be reached: Any Patient advised that office/PCP has 24-48 business hours to return their call: No documented in this [place] [address]-03-2024 Telephone encounter Note* Telephone Encounter - Ramila Lee - 02/05/2024 9:02 AM EDT Name of caller: Isauro Contact phone number: [phone] Relationship to Patient: Patient Provider: Dr. Nelson Practice: [facility] Chief Complaint/Reason for Call: Pt Pt had to reschedule appointment. Please contact pt if appointment is not soon enough, pt is concerned FYI Best time of day caller can be reached: Any Patient advised that office/PCP has 24-48 business hours to return their call: No [facility]Ewluoa90-21-7971 Telephone encounter Note* Telephone Encounter - Juju Patton MA - 01/02/2024 10:56 AM EDT Pharmacy updated. [facility] HospitalXifxoi45-44-0464 Miscellaneous Notes* Telephone Encounter - Juju Patton MA - 01/02/2024 10:56 AM EDT Pharmacy updated. * Telephone Encounter - Mary Zavaleta - 01/02/2024 10:46 AM EDT Name of caller: Isauro Contact phone number: [phone] Relationship to Patient: patient Provider: [place] Practice: [facility] Chief Complaint/Reason for Call: Pt called to report that her antibiotic and Prednisone were not sent to her local [facility] as requested - they were accidentally sent to [facility] by mistake. Please send to [facility] on [address] in [place] listed in her chart instead. Please call once has been sent over. Best time of day caller can be reached: Any Patient advised that office/PCP has 24-48 business hours to return their call: No documented in this [place] [id number] Telephone encounter Note* Telephone Encounter - Mary Zavaleta - 01/02/2024 10:46 AM EDT Name of caller: Isauro Contact phone number: [phone] Relationship to Patient: patient Provider: [place] Practice: [facility] Chief Complaint/Reason for Call: Pt called to report that her antibiotic and Prednisone were not sent to her local [facility] as requested - they were accidentally sent to [facility] by mistake. Please send to [facility] on [address] in [place] listed in her chart instead. Please call once has been sent over. Best time of day caller can be reached: Any Patient advised that office/PCP has 24-48 business hours to return their call: No [place] [id number] Telephone encounter Note* Telephone Encounter - Nelly Villa LPN - 12/22/2023 11:56 AM EDT LM - called to relay message to pt that she can schedule out into February [address]Nfcdfv95-30-2835 Miscellaneous Notes* Telephone Encounter - Nelly Villa LPN - 12/22/2023 11:56 AM EDT LM - called to relay message to pt that she can schedule out into February * Telephone Encounter - Agnes Cedillo MA - 12/22/2023 11:20 AM EDT noted * Telephone Encounter - Nigel Caicedo - 12/22/2023 8:31 AM EDT Name of caller: Isauro Contact phone number: [phone] (work number) Relationship to Patient: patient Provider: [place] Practice: [facility] Chief Complaint/Reason for Call: Patient calling [...] number above, which is the number for [employer] where she works. Patient advised that office/PCP has 24-48 business hours to return their call: Yes documented in this [facility]04-19-2024 Telephone encounter Note* Telephone Encounter - Agnes Cedillo MA - 12/22/2023 11:20 AM EDT noted [place] [id number] Telephone encounter Note* Telephone Encounter - Nigel Caicedo - 12/22/2023 8:31 AM EDT Name of caller: Isauro Contact phone number: [phone] (work number) Relationship to Patient: patient Provider: [place] Practice: [facility] Chief Complaint/Reason for Call: Patient calling [...] number above, which is the number for [employer] where she works. Patient advised that office/PCP has 24-48 business hours to return their call: Yes [place] [id number] Telephone encounter Note* Telephone Encounter - Julian Dan RN - 12/21/2023 5:49 PM EDT duplicate [facility] HospitalUwnpph90-89-7695 Miscellaneous Notes* Telephone Encounter - Julian Dan RN - 12/21/2023 5:49 PM EDT duplicate documented in this encounterSFayette County Memorial HospitalFfxbho03-95-4771 Telephone encounter Note* Telephone Encounter - Heather [...] prior to picking up the medication: Yes [place] [id number] Miscellaneous Notes* Telephone Encounter - Heather Jean [...] up the medication: Yes documented in this [facility]04-15-2024 Telephone encounter Note* Telephone Encounter - Agnes Cedillo MA - 12/18/2023 10:22 AM EDT Recent Visits Date Type Provider Dept 07/31/23 Office Visit Gasper Nelson DO [facility] 01/13/23 Office Visit Gasper Nelson DO [facility] Showing recent visits within past 365 days and meeting all other requirements Future Appointments Date Type Provider Dept 02/05/24 Appointment DO Gillian Bai [facility] Showing future appointments within next 90 [...] Most recent labs completed in chart? N/A [facility] HospitalWvdqpq10-56-8065 Miscellaneous Notes* Telephone Encounter - Agnes Cedillo MA - 12/18/2023 10:22 AM EDT Recent Visits Date Type Provider Dept 07/31/23 Office Visit Gasper Nelson DO [facility] 01/13/23 Office Visit Gasper Nelson DO [facility] [place] [facility] Showing recent visits within past 365 [...] completed in chart? N/A documented in this [facility]11-28-2023 Telephone encounter Note* Telephone Encounter - Kianna Silvestree - 08/01/2023 8:22 AM EST Orders pended for doctor's signature [facility] HospitalEmczqm22-37-5437 Miscellaneous Notes* Telephone Encounter - Kianna Silvestree - 08/01/2023 8:22 AM EST Orders pended for doctor's signature * Telephone Encounter - Kianna Stevenson - 08/01/2023 8:15 AM EST ----- Message from Gasper Nelson DO sent at 07/31/2023 4:06 PM EST ----- Schedule LDCT for pt to be done in 11/2023 documented in this encounterSFayette County Memorial HospitalDubcsb13-17-5066 Telephone encounter Note* Telephone Encounter - Kianna Silvestree - 08/01/2023 8:15 AM EST ----- Message from Gasper Nelson DO sent at 07/31/2023 4:06 PM EST ----- Schedule LDCT for pt to be done in 11/2023 [place] [id number] History of Present illness Narrative* Gasper Nelson DO - 07/31/2023 3:30 PM EST Images from the original note were not included. [facility] [address] [facility] [address] Visit type: Established Patient Reason [...] work a fair number hours at the [employer] in [place] doing various jobs. Review of Systems denies [...] are pink without edema documented in this [facility]11-27-2023 History of Present illness Narrative* Gasper Nelson DO - 07/31/2023 3:30 PM EST Images from the original note were not included. [facility] [address] [place] [address] [address] [facility] [facility] [address] Visit type: Established Patient Reason [...] work a fair number hours at the [employer] in [place] doing various jobs. Review of Systems denies [...] List Diagnosis COPD (chronic obstructive pulmonary disease) ([facility]) Osteopenia GERD (gastroesophageal reflux disease) Social History [...] are pink without edema documented in this [facility]11-27-2023 Miscellaneous Notes* Addendum Note - Rosalind Quintero - 07/31/2023 3:30 PM ESTAddended by: ROSALIND QUINTERO on: 12/18/2023 08:32 AM Modules accepted: Orders documented in this [facility]11-27-2023 Note* Addendum Note - Rosalind Quintero - 07/31/2023 3:30 PM ESTAddended by: ROSALIND QUINTERO on: 12/18/2023 08:32 AM Modules accepted: Orders [place] [id number] Telephone encounter Note* Telephone Encounter - Sara Munoz LPN - 03/14/2023 11:39 AM EDT Signed Handicap placard signed and mailed to patient per their request. [facility] HospitalEhzgvn78-87-5497 Miscellaneous Notes* Telephone Encounter - Sara Munoz LPN - 03/14/2023 11:39 AM EDT Signed Handicap placard signed and mailed to patient per their request. * Telephone Encounter - Sara Munoz LPN - 03/14/2023 9:13 AM EDT Rx loaded * Telephone Encounter - Shaista Gramajo - 03/14/2023 9:07 AM EDT Name of caller: Isauro Contact phone number: [phone] Relationship to Patient: patient Provider: [place] Practice: [...] return their call: Yes documented in this encounterSFayette County Memorial HospitalJyahsf34-75-7780 Telephone encounter Note* Telephone Encounter - Sara Munoz LPN - 03/14/2023 9:13 AM EDT Rx loaded [facility] HospitalQqsizf54-43-6571 Telephone encounter Note* Telephone Encounter - Shaista Gramajo - 03/14/2023 9:07 AM EDT Name of caller: Isauro Contact phone number: [phone] Relationship to Patient: patient Provider: [place] Practice: [...] business hours to return their call: Yes [facility] HospitalNdvnzi23-15-7526 Telephone encounter Note* Telephone Encounter - Kianna Stevenson - 03/02/2023 11:20 AM EDT Orders closed [facility] HospitalYbhxue10-62-9502 Miscellaneous Notes* Telephone Encounter - Kianna Stevenson [...] on order. Thank you documented in this encounterSFayette County Memorial HospitalPzpgbs63-85-7829 Telephone encounter Note* Telephone Encounter - Sara [...] that is stated to get a CT. [facility] HospitalSomazy31-41-6519 Telephone encounter Note* Telephone Encounter - Sara Munoz LPN - 02/28/2023 4:16 PM EDT Placed call to patient to discuss provider questions of: Call the patient and specifically ask her how many cigarettes she smokes on the average per day andhow long she has been doing it. Message left on voicemail to return call. [facility] HospitalEogkbq02-73-8661 Miscellaneous Notes* Telephone Encounter - Sara Munoz [...] on order. Thank you documented in this encounterSFayette County Memorial HospitalPrsepb81-99-7926 Telephone encounter Note* Telephone Encounter - Kianna Stevenson - 02/28/2023 9:33 AM EDT Pt doesn't fit criteria for a CT-Lung screen. Pt needs to have a 20 year smoking history of 1-pack a day or 15 year history with 2-pack a day. Can orders be cancelled? [facility] HospitalKerxsx30-10-7097 Telephone encounter Note* Telephone Encounter - Margarita Jones - 02/27/2023 1:33 PM EDT Patient called in and scheduled her CT Lung screening. The diagnosis code of F17.200 failed for Medical Necessity. Please correct diagnosis code on order. Thank you [facility] HospitalInbfko71-38-8109 Miscellaneous Notes* Telephone Encounter - Margariat Robert - 02/27/2023 1:33 PM EDT Patient called in and scheduled her CT Lung screening. The diagnosis code of F17.200 failed for Medical Necessity. Please correct diagnosis code on order. Thank you documented in this [facility]05-12-2023 Telephone encounter Note* Telephone Encounter - Kianna Stevenson - 01/13/2023 10:29 AM EDT Orders pended for doctor's signature [facility] HospitalFrkous17-33-9084 Miscellaneous Notes* Telephone Encounter - Kianna Stevenson - 01/13/2023 10:29 AM EDT Orders pended for doctor's signature documented in this [facility]05-12-2023 History of Present illness Narrative* Gasper Nelson DO - 01/13/2023 9:30 AM EDT Images from the original note were not included. [facility] [address] [place] [address] Visit type: Established Patient Reason for Visit: [...] of hips and knees. documented in this [facility]03-13-2023 History of Present illness Narrative* Siomara Estrada PA-C - 11/14/2022 11:40 AM EDT Images from the original note were not included. [address] [address] Dept: [phone] Dept Loc: [phone] Visit type: Established Patient Reason for Visit: Cough (X Monday ) and Sore Throat Assessment and Plan 1. COPD with acute exacerbation (CMS/HCC) ([facility]) Comments: didn't want to take full strength [...] 76 Cancer Father 76 Unknown source Other ([id number]) Mother 77 Coalminer long Cancer Sister 73 [...] prior to signing but minor errors in cookie padder may have occurred. documented in this [facility]03-13-2023 Telephone encounter Note* Telephone Encounter - Sade Esteban RN - 11/14/2022 9:51 AM EDT Triage message reviewed with clinical staff. Patient appointment confirmed. Siomara will assess at appointment visit. [facility] HospitalFhhzdx97-12-2123 Miscellaneous Notes* Telephone Encounter - Sade Esteban [...] (e.g., travel history, exposures) no Protocols used: Blfkn-GLGML-GL documented in this [facility]03-13-2023 Telephone encounter Note* Telephone Encounter [...] (e.g., travel history, exposures) no Protocols used: Jmvra-HKWCE-MU [facility] HospitalVdsbkh57-84-3719 Telephone encounter Note* Telephone Encounter - Sara Munoz LPN - 10/20/2022 4:35 PM EST X-ray faxed to [facility] per patient request. Also called patient and let her know it was faxed. [facility] HospitalBlsmzk96-11-4552 Miscellaneous Notes* Telephone Encounter - Sara Munoz LPN - 10/20/2022 4:35 PM EST X-ray faxed to [facility] per patient request. Also called patient and let her know it was faxed. * Telephone Encounter - Shereen Stevens - 10/20/2022 3:06 PM EST Name of caller: Isauro Contact phone number: [phone] Relationship to Patient: patient Provider: Practice: [facility] Chief Complaint/Reason for Call: Patient calling and states [facility] did not get her ordersfor the x-ray. Patient requesting it be re sent. Patient did not have a fax number. Best time of day caller can be reached: any Patient advised that office/PCP has 24-48 business hours to return their call: no documented in this encounterS54 Johnson StreetWxppha95-89-2522 Telephone encounter Note* Telephone Encounter - Shereen Stevens - 10/20/2022 3:06 PM EST Name of caller: Isauro Contact phone number: [phone] Relationship to Patient: patient Provider: Practice: [facility] Chief Complaint/Reason for Call: Patient calling and states [facility] did not get her ordersfor the x-ray. Patient requesting it be re sent. Patient did not have a fax number. Best time of day caller can be reached: any Patient advised that office/PCP has 24-48 business hours to return their call: no [facility] HospitalCxqrwm05-41-2223 Telephone encounter Note* Telephone Encounter - Danish Davila DO - 10/18/2022 5:29 PM EST I called this patient regarding her chest x-ray. She states she went to [facility] but they did not have the order. According to the record the order was faxed. Patient will call the hospital and see if now have the order. [facility] HospitalGfssob41-23-0689 Miscellaneous Notes* Telephone Encounter - Danish Davila [...] Name of caller: Shayy Contact phone number: [phone] Relationship to Patient: [facility] Provider: Dr. Davila Practice: [facility] Chief Complaint/Reason for Call: Shayy states the patient is currently at [facility] trying to complete her 10/03/22 [...] return their call: No documented in this encounterSFayette County Memorial HospitalXlxpfe87-59-4453 Telephone encounter Note* Telephone Encounter - Sade Esteban RN - 10/17/2022 12:06 PM EST Faxed [facility] HospitalSialzj34-03-5939 Telephone encounter Note* Telephone Encounter - Justin Hoover - 10/17/2022 12:00 PM EST Name of caller: Shayy Contact phone number: [phone] Relationship to Patient: [facility] Provider: Dr. Davila Practice: [facility] Chief Complaint/Reason for Call: Shayy states the patient is currently at [facility] trying to complete her 10/03/22 [...] business hours to return their call: No [facility] HospitalIgnlhu32-76-8554 Telephone encounter Note* Telephone Encounter - Danish [...] the emergency room. She is not interested. [facility] HospitalGpbuxx35-90-7421 Miscellaneous Notes* Telephone Encounter - Danish Davila [...] She is not interested. documented in this [facility]01-30-2023 History of Present illness Narrative* Danish Davila DO - 10/03/2022 8:30 AM EST Images from the original note were not included. [facility] [address] [id number] Chief Complaint: Ashley Gómez is an 67 [...] correction 20/20 20/25 20/20 documented in this [facility] CenterDischar summary Author Wilfred Bryan [facility] Note Date/Time February 15, 2025 11:1 1am [facility] Medical Records Department [address] [place] [address] Emergency Department Summary 02/15/25 MR#: [id number] Acct: [id number] Name: ASHLEY GÓMEZ Rep #:[id number] : 1955 69 From: Wilfred Bryan MD [...] day. Additionally, sometimes she smokes as well. [facility] Medical History Wears dentures Wears [...] none current occupational status: employed current occupation: [employer] Smoking Status: Current every day smoker tobacco [...] (Auto) 77.0 H Lymph % (Auto) 19.2 Cache % (Auto) 1.9 Eos % (Auto) 0.7 [...] 09:25 IMPRESSION: No acute process Reading Location: [facility] Management Discussion w/another healthcare provider: Hospitalist (Dr. [...] DO [Primary Care Provider] - Print Language: Estonian What to do if you have Problems For any increased pain, shortness of breath, bleeding, nausea or vomiting, chestpain, or any unexpected problems, contact your Primary Care Provider. Call [facility] ([phone]) or report to the closest Emergency Room. Call 911 if necessary. 02/15/25 1111 <Electronically signed by Wilfred Bryan MD> Cosigner Signature (if applicable): CC: Dr. Danish Davila DO ~ Signed [facility] Work Phone: Discharge summary Author Bunny Avilez [facility] Note Date/Time February 17, 2025 10:5 9am [facility] Medical Records Department [address] [place] [address] Instructions for Home/Discharge Instructions 02/17/25 1052 MR#: [id number] Acct: [id number] Name: ASHLEY GÓMEZ Rep #:[id number] : 1955 69 From: Bunny Avilez DO [...] CC: Dr. Danish Davila DO ~ Signed [facility] Work Phone: Discharge summary Author Nicko Mane-Elizabeth [facility] Note Date/Time March 06, 2025 9:31a m [facility] Medical Records Department [address] [place] [address] Emergency Department Summary 03/06/25 MR#: [id number] Acct: [id number] Name: RICOASHLEY Rep #:[id number] : 1955 69 From: Nicko zelayaett PCP: [...] intact Psych: Cooperative, appropriate mood and affect [facility] Medical History Hypokalemia Smoker Hypoxia COPD exacerbation [...] none current occupational status: employed current occupation: [employer] Smoking Status: Current every day smoker [...] (Auto) 72.4 H Lymph % (Auto) 19.6 Cache % (Auto) 5.8 Eos % (Auto) 1.5 [...] DO [Primary Care Provider] - Print Language: Estonian What to do if you have Problems For any increased pain, shortness of breath, bleeding, nausea or vomiting, chestpain, or any unexpected problems, contact your Primary Care Provider. Call [facility] ([phone]) or report to the closest Emergency Room. 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 Patient was instructed to return if worse in any way. Patient understood and was agreeable with plan. All questions were answered. 03/06/25 0931<Electronically signed by Niko Castillo DO> Cosigner Signature (if applicable): cc: Dr. Gasper Nelson, ~* Signed [facility] Work Phone: evaluation note* Diagnosis Menopause Symptomatic menopausal or female climacteric states documented in this encounter [facility] Work Phone: Evaluation noteNo assessment information available [facility] Work Phone: evaluation note* Diagnosis Chronic obstructive pulmonary disease, unspecified COPD type (HCC)- Primary Hypercholesterolemia Pure hypercholesterolemia Gastroesophageal reflux disease without esophagitis Esophageal reflux Smoker Tobacco use disorder Depression, unspecified depression type [facility] Diagnosis Smoker Tobacco use disorder [facility]* Diagnosis Chronic obstructive pulmonary disease, unspecified COPD type (HCC)- Primary [facility]* Diagnosis Chronic obstructive pulmonary disease, unspecified COPD type (HCC)- Primary Depression, unspecified depression type Gastroesophageal reflux disease without esophagitis Esophageal reflux Hypercholesterolemia Pure hypercholesterolemia [facility]* Diagnosis Moderate smoker (20 or less per day)- Primary Tobacco use disorder Smoker Tobacco use disorder [facility]* Diagnosis Chronic obstructive pulmonary disease, unspecified COPD type (HCC)- Primary Depression, unspecified depression type Gastroesophageal reflux disease without esophagitis Esophageal reflux Hypercholesterolemia Pure hypercholesterolemia [facility]* Diagnosis Smoker Tobacco use disorder Moderate smoker (20 or less per day) Tobacco use disorder [facility]* Diagnosis COPD with acute exacerbation (HCC) Lower resp. tract infection Other diseases of respiratory system, not elsewhere classified [facility]* Diagnosis Chronic obstructive pulmonary disease, unspecified COPD type (HCC)- Primary Abnormal CT scan of lung Hypercholesterolemia Pure hypercholesterolemia Colon cancer screening Special screening for malignant neoplasms, colon Breast cancer screening by mammogram Depression, unspecified depression type Gastroesophageal reflux disease without esophagitis Esophageal reflux Ex-smoker for less than 1 year documented [facility]* Diagnosis Abnormal CT scan of lung- Primary Colon cancer screening Special screening for malignant neoplasms, colon Smoker Tobacco use disorder Family history of colon cancer Family history of malignant neoplasm of gastrointestinal tract documented in this encounter [facility]* Diagnosis Abnormal CT scan of lung Smoker Tobacco use disorder documented [facility]* Diagnosis Medicare annual wellness visit, subsequent- Primary Cough, unspecified type Chronic obstructive pulmonary disease, unspecified COPD type (HCC) Anxiety Anxiety state, unspecified Depression, unspecified depression type Hypercholesterolemia Pure hypercholesterolemia Mammogram declined Colonoscopy refused documented in this encounter [facility]* Diagnosis COPD with acute exacerbation (CMS/HCC) (HCC)- Primary Lower resp. tract infection Other diseases of respiratory system, not elsewhere classified Smoking Tobacco use disorder documented in this encounter [facility]* Diagnosis Chronic obstructive pulmonary disease with acute exacerbation (HCC)- Primary Influenza Influenza with other respiratory manifestations documented in this encounter [facility]* Diagnosis Routine general medical examination at health care facility- Primary Routine general medical examination at a health care facility Encounter for screening mammogram for malignant neoplasm of breast Hypercholesterolemia Pure hypercholesterolemia Chronic obstructive pulmonary disease with acute exacerbation (HCC) Gastroesophageal reflux disease without esophagitis Esophageal reflux documented in this encounter [facility]* Diagnosis Routine general medical examination at health care facility- Primary Routine general medical examination at a health care facility Encounter for screening mammogram for malignant neoplasm of breast Hypercholesterolemia Pure hypercholesterolemia Chronic obstructive pulmonary disease with acute exacerbation (HCC) Gastroesophageal reflux disease without esophagitis Esophageal reflux Other insomnia documented in this encounter [facility]* Diagnosis Routine general medical examination at health care facility- Primary Routine general medical examination at a health care facility Encounter for screening mammogram for malignant neoplasm of breast Hypercholesterolemia Pure hypercholesterolemia Chronic obstructive pulmonary disease with acute exacerbation (HCC) Gastroesophageal reflux disease without esophagitis Esophageal reflux Chronic obstructive pulmonary disease with acute exacerbation (HCC) documented in this encounter [facility]* Diagnosis Routine general medical examination at health care facility- Primary Routine general medical examination at a health care facility Encounter for screening mammogram for malignant neoplasm of breast Hypercholesterolemia Pure hypercholesterolemia Chronic obstructive pulmonary disease with acute exacerbation (HCC) Gastroesophageal reflux disease without esophagitis Esophageal reflux Other insomnia documented in this encounter [facility]* Diagnosis Routine general medical examination at health care facility- Primary Routine general medical examination at a health care facility Encounter for screening mammogram for malignant neoplasm of breast Hypercholesterolemia Pure hypercholesterolemia Chronic obstructive pulmonary disease with acute exacerbation (HCC) Gastroesophageal reflux disease without esophagitis Esophageal reflux Other insomnia [facility] Diagnosis Routine general medical examination at health care facility- Primary Routine general medical examination at a health care facility Encounter for screening mammogram for malignant neoplasm of breast Hypercholesterolemia Pure hypercholesterolemia Chronic obstructive pulmonary disease with acute exacerbation (HCC) Gastroesophageal reflux disease without esophagitis Esophageal reflux Chronic obstructive pulmonary disease with acute exacerbation (HCC) [facility] Diagnosis Routine general medical examination at health care facility- Primary Routine general medical examination at a [facility] care facility Encounter for screening mammogram for malignant neoplasm of breast Hypercholesterolemia Pure hypercholesterolemia Chronic obstructive pulmonary disease with acute exacerbation (HCC) Gastroesophageal reflux disease without esophagitis Esophageal reflux Other insomnia [facility] [place] [facility] Diagnosis Onset Date Resolution Status Admit Date Hypokalemia acute February 15 11:21am Hypoxia acute February 15 11:21am Smoker acute February 15 11:21am COPD exacerbation chronic February 152024 11:21am [facility] Work Phone: reason for referral (narrative)No reason for referral [facility] Phone: reason for visit Narrative* Imaging (Routine) - Closed Specialty Diagnoses / Procedures Referred By Anisa t Referred To Contact Radiology Diagnoses Abnormal CT scan of lung Smoker Procedures CT lung screening follow up low dose Gasper Nelson F, DO [address] [place] [address] Phone: tel: fax: Referral ID Status Reason Start Date Expiration Date Visits Re quested Visits Authorized [id number] Closed 02/22/2024 02/21/[address] 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 No February 15, 2025 8:36am Advance Directives No May 10:10pm Advance Directive Response Recorded Date/ Time Do you have a Healthcare Power of Director Microbiology? No February 15, 2025 11:58am Advance Directives No May 10:10pm Advance Directive Response Recorded Date/ Time Do you have a Healthcare Power of Director Microbiology? No February 15, 2025 11:58am Do you have a Healthcare Power of Director Microbiology? No March 02, 2025 11:53pm Advance Directives No May 10:10pm Advance Directive Response Recorded Date/ Time Do you have a Healthcare Power of Director Microbiology? No February 15, 2025 11:58am Do you have a Healthcare Power of Director Microbiology? No March 03, 2025 4:02am Advance Directives No May 10:10pm Advance Directive Response Recorded Date/ Time Do you have a Healthcare Power of Director Microbiology? No February 15, 2025 11:58am Do you have a Healthcare Power of Director Microbiology? No March 06, 2025 5:56am Do you have a Healthcare Power of Director Microbiology? No March 03, 2025 4:02am Advance Directives No May 10:10pm Reason for Referral Specialty Diagnoses / Procedures Referred By Anisa arias Referred To Contact Radiology Diagnoses Menopause Procedures DEXA Bone Density Axial Skeleton Danish Davila, DO [address] [place] [address] Referral ID Status Reason Start Date Expiration Date Visits Re quested Visits Authorized [id number] Open 06/07/2021 06/07/2022 1 1 Specialty Diagnoses / Procedures Referred By Contac t Referred To Contact Radiology Diagnoses Smoker Procedures CT lung screening low dose [place] Gasper Serrano, DO [address] [place] [address] Referral ID Status Reason Start Date Expiration Date V isits Requested Visits Authorized [id number] Pending Review 01/13/2023 07/12/2023 1 1 Specialty Diagnoses / Procedures Referred By Contac t Referred To Contact Radiology Diagnoses Smoker Moderate smoker (20 or less per day) Procedures CT lung screening low dose [place] Gasper Serrano, DO [address] [place] [address] Referral ID Status Reason Start Date Expiration Date V isits Requested Visits Authorized [id number] Pending Review 08/01/2023 07/31/2024 1 1 Referral ID Status Reason Start Date Expiration Date Visits Re quested Visits Authorized [id number] Closed 08/01/2023 07/31/2024 1 1 Specialty Diagnoses / Procedures Referred By Contac t Referred To Contact Diagnoses Chronic obstructive pulmonary disease, unspecified COPD type (HCC) Procedures Complete PFT pre and post bronchodilator [place] Gasper Maggie, DO [address] [place] [address] Referral ID Status Reason Start Date Expiration Date V isits Requested Visits Authorized [id number] Pending Review 02/22/2024 02/16/2025 1 1 Specialty Diagnoses / Procedures Referred By Contac t Referred To Contact Radiology Diagnoses Abnormal CT scan of lung Smoker Procedures CT lung screening follow up low dose [place] Gasper Serrano, DO [address] [place] [address] Referral ID Status Reason Start Date Expiration Date V isits Requested Visits Authorized [id number] Pending Review 02/22/2024 02/21/2025 1 1 Specialty Diagnoses / Procedures Referred By Contac t Referred To Contact Gastroenterology Diagnoses Colon cancer screening Procedures TX OFFICE/OUTPATIENT [facility] HIGH MDM 60 MINUTES Gasper Nelson F, DO [address] [place] [address] [address], [address] [place] [address] Referral ID Status Reason Start Date Expiration Date Visits Requested Visits Authorized [id number] Pending Review Specialty Services Required 02/22/2024 02/21/2025 [...] February 3:30am Non-ST elevated myocardial infarction Ju hi 2024 3:30am History of COPD March 03, [...] section and content) DATE CREATED AUTHOR 10/12/2021 [facility] DATE CREATED AUTHOR AUTHOR'S ORGANIZ ATION 01/19/2022 [facility] DATE CREATED AUTHOR AUTHOR'S ORGANIZ ATION 02/25/2025 [facility] DATE CREATED AUTHOR AUTHOR'S ORGANIZ ATION 03/05/2025 [facility] Care Teams (unrecognized sec [...] Provider Active S tart: February 16, 2025 Chair Mechanic Relationship Specialty Start Date End Date Danish Davila DO [address] [place] [address] PCP - General Family Medicine 03/24/20 Team Status: Active Member Role Status Dates Dr. Aaron Zepeda MD Family Provider Active Dr. Danish Davila DO Primary Care Provider Active Team Status: Inactive Member Role Status Dates Dr. Danish Davila DO Primary Care Provider, Attendin g Provider Active Chair Mechanic Relationship Specialty Start Date End Date Danish Davila DO [address] [place] [address] PCP - General 03/24/20 Chair Mechanic Relationship Specialty Start Date End Date Gasper Nelson Maggie, DO [address] [place] [address] PCP - General Family Medicine 01/13/23 Chair Mechanic Relationship Specialty Start Date End Date Gasper Nelson, DO [address] [place] [address] PCP - General Family Medicine 01/13/23 Chair Mechanic Relationship Specialty Start Date End Date Gasper Nelson, DO [address] [place] [address] PCP - General Family Medicine 01/13/23 Chair Mechanic Relationship Specialty Start Date End Date Gasper Nelson DO [address] [place] [address] PCP - General Family Medicine 01/13/23 Chair Mechanic Relationship Specialty Start Date End Date Gasper Nelson MaggieDO [address] [place] [address] PCP - General Family Medicine 01/13/23 Chair Mechanic Relationship Specialty Start Date End Date Gasper Nelson DO [address] [place] [address] PCP - General Family Medicine 01/13/23 Chair Mechanic Relationship Specialty Start Date End Date Gasper Nelson DO [address] [facility] [address] [place] [phone] PCP - General Family Medicine 01/13/23 Chair Mechanic Relationship Specialty Start Date End Date Gasper Nelson DO [address] [place] [phone] PCP - General Family Medicine 01/13/23 Chair Mechanic Relationship Specialty Start Date End Date ArgentinaGasper, DO [address] [place] [phone] PCP - General Family Medicine 01/13/23 Chair Mechanic Relationship Specialty Start Date End Date [place] Gasper Serrano, DO [address] [place] [phone] PCP - General Family Medicine 01/13/23 Chair Mechanic Relationship Specialty Start Date End Date [place] Gasper Serrano, DO [address] [place] [phone] PCP - General Family Medicine 01/13/23 Chair Mechanic Relationship Specialty Start Date End Date [place] Gasper Serrano, DO [address] [place] [phone] PCP - General Family Medicine 01/13/23 Chair Mechanic Relationship Specialty Start Date End Date [place] Gasper Serrano, DO [address] [place] [phone] PCP - General Family Medicine 01/13/23 Chair Mechanic Relationship Specialty Start Date End Date [place] Gasper Serrano, DO [address] [place] [address] PCP - General Family Medicine 01/13/23 Chair Mechanic Relationship Specialty Start Date End Date [place] Gasper Serrano, DO [address] [place] [phone] PCP - General Family Medicine 01/13/23 Chair Mechanic Relationship Specialty Start Date End Date [place] Gasper SerranoDO [address] [place] [phone] PCP - General Family Medicine 01/13/23 Chair Mechanic Relationship Specialty Start Date End Date [place] Gasper Serrano, DO [address] [place] [phone] PCP - General Family Medicine 01/13/23 Chair Mechanic Relationship Specialty Start Date End Date [place] Gasper Serrano, [address] [place] [phone] PCP - General Family Medicine 01/13/23 Chair Mechanic Relationship Specialty Start Date End Date Gasper Nelson Maggie, [address] [place] [phone] PCP - General Family Medicine 01/13/23 Chair Mechanic Relationship Specialty Start Date End Date [place] Gasper Serrano, [address] [place] [phone] PCP - General Family Medicine 01/13/23 Chair Mechanic Relationship Specialty Start Date End Date Gasper Nelson Maggie, DO [address] [place] [phone] PCP - General Family Medicine 01/13/23 Chair Mechanic Relationship Specialty Start Date End Date Danish Davila, DO [address] [place] [address] PCP - General 03/24/20 Chair Mechanic Relationship Specialty Start Date End Date Danish Davila DO [address] [place] [address] PCP - General 03/24/20 Chair Mechanic Relationship Specialty Start Date End Date Danish Davila DO [address] [place] [address] PCP - General 03/24/20 Chair Mechanic Relationship Specialty Start Date End Date Danish Davila DO [address] [place] [address] PCP - General 03/24/20 Chair Mechanic Relationship Specialty Start Date End Date Gasper Nelson, [address] [place] [phone] PCP - General Family Medicine 01/13/23 Chair Mechanic Relationship Specialty Start Date End Date Gasper Nelson DO [address] [place] [phone] PCP - General Family Medicine 01/13/23 Chair Mechanic Relationship Specialty Start Date End Date Gasper Nelson, [address] [place] [phone] PCP - General Family Medicine 01/13/23 Chair Mechanic Relationship Specialty Start Date End Date Gasper Nelson, [address] [place] [phone] PCP - General Family Medicine 01/13/23 Chair Mechanic Relationship Specialty Start Date End Date Gasper Nelson, [address] [place] [address] PCP - General Family Medicine 01/13/23 Chair Mechanic Relationship Specialty Start Date End Date Gasper Nelson DO [address] [place] [address] PCP - General Family [...] Comments Follow-up New to provider, 4 m [facility] med check Reason Onset Date Comments [...] low dose Gasper Nelson F, DO [address] [place] [address] Referral ID Status Reason Start Date Expiration Date Visits Re quested Visits Authorized [id number] Closed 08/01/2023 07/31/2024 1 1 Reason Onset Date Comments Error (VOID this visit) 12/21/2023 Reason Onset Date Comments Appointment 12/22/2023 [facility] Reason Onset Date Comments Med Refill [...] ON THE PRIMARY CLINICAL RECORDS. [facility]. provides no warranty or guarantee of the accuracy or completeness of information in this document.
[2025-03-08] VITALS (7 sets, daily range): BP systolic 99–151; BP diastolic 55–103; PULSE 83–90; RESP 16–22; TEMP 36.3–36.7; O2SAT 88–99
[2025-03-08] MEDS: 0.9% Saline Lock 10 ML Syringe IV ×3 (05:19→16:14)
--- NOTE | 2025-03-08 07:36 | PCM.PN.HOSP ---
Reason for Visit Reason for Visit: Diagnoses Dehydration (03/07/25) Weakness (03/07/25) Subjective Subjective Patient is a 69-year-old female who was discharged from the hospital 3 days prior following admission for hematemesis presented to the emergency department with multiple falls following her discharge. Was found to have abnormal urinalysis consistent with UTI Objective Data Objective Data Vital Signs: Vital Signs Temp Pulse Resp BP Pulse Ox O2 Del Method O2 Flow Rate 97.4 F L 89 16 99/55 L 96 Room Air 2 03/08/25 03:15 03/08/25 03:15 03/08/25 03:15 03/08/25 03:15 03/08/25 03:15 03/08/25 03:15 03/07/25 17:18 Oxygen Flow Rate (L/min) 2 Oxygen Delivery Method Room Air Weight: 48.716 kg Body Mass Index (BMI) 18.4 Intake & Output: Intake and Output for Last 24 Hours 03/06/25 03/07/25 03/08/25 23:59 23:59 23:59 Intake Total 1999 Balance 1999 Lab / Micro Data 03/08/25 07:47 03/08/25 07:47 Labs: Laboratory Results - last 24 hr 03/07/25 13:50: WBC 16.6 H, RBC 4.69, Hgb 14.3, Hct 42.1, MCV 89.8, MCH 30.5, MCHC 34.0, RDW Std Deviation 42.8, RDW Coeff of Tr 13.2, Plt Count 241, MPV 10.5, Immature Gran % (Auto) 0.400, Neut % (Auto) 72.0 H, Lymph % (Auto) 21.1, Gilchrist % (Auto) 5.7, Eos % (Auto) 0.5, Baso % (Auto) 0.3, Absolute Neuts (auto) 12.0 H, Absolute Lymphs (auto) 3.51, Nucleated RBC % 0, Sodium 136, Potassium 4.5, Chloride 95 L, Carbon Dioxide 27.3, Anion Gap 14, BUN 55 H, Creatinine 1.06, Estim Creat Clear Calc 39.21 L, Est GFR (MDRD) Non-Af 57 L, BUN/Creatinine Ratio 52.3 H, Glucose 143 H, Calcium 9.4, Troponin T High Sens 63 H* D 03/07/25 14:10: Lactic Acid Cancelled 03/07/25 15:20: Lactic Acid 2.3 H*, NT pro BNP II 3463 H 03/07/25 16:50: Troponin T Hi Sens 2 Hr 49 H 03/07/25 17:00: Urine Color Yellow, Urine Clarity Sl. Cloudy, Urine pH 6.0, Ur Specific Wallace 1.010, Urine Protein 15 H, Urine Glucose (UA) Normal, Urine Ketones Negative, Urine Occult Blood 10 H, Urine Nitrite Negative, Urine Bilirubin Negative, Urine Urobilinogen Normal, Ur Leukocyte Esterase Negative, Urine RBC 0 SEEN, Urine WBC 25-50 SEEN, Ur Squamous Epith Cells 0 SEEN, Urine Bacteria RARE, Hyaline Casts 10-25 SEEN, Urine Mucus 0 SEEN Radiography Diagnostic Testing: Radiology Impression Chest X-Ray 03/07/25 13:55 IMPRESSION: No acute cardiopulmonary process. Reading Location: [facility] Chest CTA 03/07/25 14:36 IMPRESSION: 1. No pulmonary embolism. 2. Distended esophagus with air-fluid level. Aspiration precaution is recommended. 3. Continue low-dose CT scan of the chest in 12 months is recommended. 4. Lung emphysema/COPD. Right middle lobe and lingula atelectasis or scarring. 3 mm nodule of the lateral left upper lobe. Reading Location: [facility] Physical Exam Narrative GENERAL: cooperative HEENT: Atraumatic; normocephalic EYES; Anicteric, Normal Conjunctiva NECK; supple, normal thyroid, RESPIRATORY: Diminished to auscultation CARDIOVASCULAR: Regular S1 S2, GI: soft, normoactive bowel sounds, : No Renal angle tenderness; EXTREMITIES: No edema, no clubbing, MUSCULOSKELETAL: no muscle wasting NEURO: Awake; no lateralizing signs. SKIN: No Rash PSYCH; Flat affect Assessment & Plan Assessment/Plan (1) Weakness: (2) Dehydration: PLAN: Plan Patient is a 69-year-old female who was discharged from the hospital 3 days prior following admission for hematemesis presented to the emergency department with multiple falls following her discharge. Was found to have abnormal urinalysis consistent with UTI 1. Acute cystitis ? Present on admission patient started on ceftriaxone urine culture sent 2. Acute on chronic debility with multiple falls ? Patient has been admitted to regular nursing floor requested for PT OT eval and family welfare social work professor to assist with discharge planning 3. Acute kidney injury ? Patient baseline creatinine is 0.6, creatinine on admission was 1.06 started on IV fluid with subsequent monitoring of electrolyte 4. Recent admission for hematemesis ? Patient underwent EGD by Dr. 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 Chronic hypoxic respiratory failure Secondary to COPD. Patient was assessed for home oxygen during her previous admission which she qualified she was discharged on 2 L continuous 6. Depression with anxiety ? Patient is on venlafaxine as well as trazodone 7. Dyslipidemia ?Patient is on statin therapy, continued at home dose 8. Tobacco dependence ? Counseled on cessation, offered nicotine patch for tobacco cravings 9. Underweight with BMI of 17.7 ? Complicating care 10. DVT prophylaxis ? Subcu Lovenox Charges/Coding Visit Charges Inpatient E&M: 97789 Subs Hosp L2
[2025-03-08 07:56] LABS: Hematocrit 34.3 % (37-47); Hemoglobin 11.8 g/dL (12.0-15.0); Mean Corp Hgb Conc 34.4 g/dL (32-36); Mean Corpuscular Volume 88.9 fL (81-99); Mean Platelet Vol. 10.5 fl (6.2-12.0); Platelet Count 209 K/mm3 (150-450); RBC Distribution Width CV 13.3 % (11.6-14.6); RBC Distribution Width SD 43.7 fl (35.1-43.9); Red Blood Count 3.86 M/mm3 (4.2-5.4); White Blood Count 13.7 K/mm3 (4.4-11.0)
[2025-03-08 09:05] LABS: Anion Gap 11 (5-15); BUN 33 mg/dL (4-19); BUN/Creat Ratio 52.1 RATIO (10-20); Calcium,Total 8.5 mg/dL (7.6-11.0); Carbon Dioxide 23.9 mmol/L (21.0-32.0); Chloride 105 mmol/L (98-108); Estimated Creatinine Clearance 50.32 ml/min (50-250); Glucose 115 mg/dL (70-99); Potassium 3.0 mmol/L (3.3-5.1)
[2025-03-08 09:35] LABS: Magnesium 2.0 mg/dL (1.5-2.2)
--- NOTE | 2025-03-08 10:23 | CASEMGMT ---
Social Work- Physician feels that pt needs placement due to high number of falls. Therapy does not have documentation at this time regarding recommendations. A list of SNF providers including quality and resource use data and consistent with the patient?s preferred geographic region, medical needs, and insurance network were provided from the [employer] Guide for pt to review in the event that SNF is recommended. RNCM to meet with pt. SW remains available to follow. SAAD Sawyer
--- NOTE | 2025-03-08 11:20 | CASEMGMT ---
NAHID MORE readmission note: Recent History: She was recently hospitalized from 03/03 to 03/05 for nausea, vomiting, and concern for hematemesis. An EGD at that time revealed esophageal mucosal changes consistent with long-segment Franks?s esophagus and retained gastric contents, but no active source of bleeding was identified. She was also noted to be hypoxic during that admission. Given her history of COPD with emphysema, supplemental oxygen was considered; however, oxygen saturation on exertion dropped only to 90%, so she did not meet criteria for home oxygen therapy at discharge. Subsequent ED Visit: On 03/06, the patient returned to the ED with worsening abdominal pain. CT of the abdomen and pelvis showed distal esophageal thickening, likely related to reflux esophagitis; otherwise, the study was unremarkable. She was again discharged home. Current Presentation: The patient presented to [facility] ED on 03/07/25 with complaints of fatigue, generalized weakness, and poor oral intake. She reports profound fatigue and states she was barely able to get out of bed this morning. NAHID MORE into pt room, Pt states she feels she needs to get stronger before returning home. Therapy is ordered but has not worked with pt yet. NAHID MORE discussed possibility of SNF to receive therapy before returning home. Pt teared up, but was agreeable if it is recommended. NAHID MORE provided pt with a SNF list and discussed with Pt to review and we will see how therapy goes this weekend. Informed pt NAHID MORE will follow up on Monday to discuss DC plan.
[2025-03-08] MEDS: Potassium Chloride Oral Tablet 20 MEQ PO (17:55)
[2025-03-08] MEDS: 0.9% Normal Saline (250mL Bag) 250 ML 15 ML IV (17:55)
[2025-03-08] MEDS: proMETHazine 25 MG/ML Syringe 12.5 MG IM (20:57)
[2025-03-09] VITALS (8 sets, daily range): BP systolic 109–157; BP diastolic 75–109; PULSE 81–89; RESP 16–22; TEMP 36.2–36.8; O2SAT 94–98
[2025-03-09] MEDS: Pantoprazole Sodium 40 MG in 0.9% Normal Saline (100mL MB+) 100 ML 300 MG IV (00:01)
[2025-03-09] MEDS: 0.9% Saline Lock 10 ML Syringe IV ×3 (00:01→09:06)
[2025-03-09 05:50] LABS: Hematocrit 29.5 % (37-47); Hemoglobin 10.0 g/dL (12.0-15.0); Immature Granulocytes Count 0.030 X10^3/uL (0.0-0.0); Mean Corp Hgb Conc 33.9 g/dL (32-36); Mean Corpuscular Volume 89.4 fL (81-99); Mean Platelet Vol. 11.1 fl (6.2-12.0); NRBC Flagged by Analyzer 0 % (0-5); Platelet Count 178 K/mm3 (150-450); RBC Distribution Width CV 13.1 % (11.6-14.6); RBC Distribution Width SD 42.7 fl (35.1-43.9); Red Blood Count 3.30 M/mm3 (4.2-5.4); White Blood Count 11.5 K/mm3 (4.4-11.0)
[2025-03-09 06:15] LABS: Anion Gap 9 (5-15); BUN 25 mg/dL (4-19); BUN/Creat Ratio 46.0 RATIO (10-20); Calcium,Total 8.7 mg/dL (7.6-11.0); Carbon Dioxide 27.5 mmol/L (21.0-32.0); Chloride 99 mmol/L (98-108); Estimated Creatinine Clearance 50.32 ml/min (50-250); Glucose 148 mg/dL (70-99); Potassium 3.0 mmol/L (3.3-5.1)
--- NOTE | 2025-03-09 07:58 | PN.HOSP_ITS ---
Reason for Visit Reason for Visit: Diagnoses Dehydration (03/07/25) Weakness (03/07/25) Subjective Subjective Patient urine cultures resulted culture did not exhibit any growth antibiotics subsequently discontinued. Diagnostic data significant for hypophosphatemia. Objective Data Objective Data Vital Signs: Vital Signs Temp Pulse Resp BP Pulse Ox O2 Del Method O2 Flow Rate 98.0 F 89 18 109/75 96 Nasal Cannula 2 03/09/25 03:51 03/09/25 03:51 03/09/25 03:51 03/09/25 03:51 03/09/25 05:33 03/09/25 05:33 03/09/25 05:33 Oxygen Flow Rate (L/min) 2 Oxygen Delivery Method Nasal Cannula Weight: 48.716 kg Body Mass Index (BMI) 18.4 Intake & Output: Intake and Output for Last 24 Hours 03/07/25 03/08/25 03/09/25 23:59 23:59 23:59 Intake Total 1999 1220 / 1340 220 / 220 Balance 1999 1220 / 1340 220 / 220 Medical Nutrition Assessment Dietitian: Malnutrition Criteria Met Start: 03/08/25 11:31 Freq: Status: Active Protocol: Document 03/08/25 11:31 DESIREE (Rec: 03/08/25 11:31 DESIREE [id number]) Nutrition Malnutrition Evidence of Yes Malnutrition Exists Malnutrition (severe Acute Illness/Injury ): Evidenced By Suboptimal Energy Intake (Severe),Weight Loss (Severe), Physical Changes (Moderate) Clinical Problem Acute Disease or Injury Related Malnutrition Etiology related to inadequate energy intake Signs/Symptoms as evidenced by 6.4% unplanned wt loss and po intake meeting < 75% of 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 Fat/muscle wasting throughout body; BMI 18.4 Status Active Problem Recommendation Dietitian Continue liberal regular diet - easy to chew as ordered Recommendations/ Will order 8oz Ensure Plus High Protein and cup of ice Changes tid w/ meals for increased nutrition if consumed. Lab / Micro Data 03/09/25 04:17 03/09/25 04:17 Labs: Laboratory Results - last 24 hr 03/08/25 07:47: Sodium 140, Potassium 3.0 L, Chloride 105, Carbon Dioxide 23.9, Anion Gap 11, BUN 33 H, Creatinine 0.63 L, Estim Creat Clear Calc 50.32, Est GFR (MDRD) Non-Af 95, BUN/Creatinine Ratio 52.1 H, Glucose 115 H, Calcium 8.5, Magnesium 2.0 03/09/25 04:17: WBC 11.5 H, RBC 3.30 L, Hgb 10.0 L, Hct 29.5 L, MCV 89.4, MCH 30.3, MCHC 33.9, RDW Std Deviation 42.7, RDW Coeff of Tr 13.1, Plt Count 178, MPV 11.1, Immature Gran % (Auto) 0.300, Neut % (Auto) 77.7 H, Lymph % (Auto) 14.2 L, [place] % (Auto) 4.5, Eos % (Auto) 3.0, Baso % (Auto) 0.3, Absolute Neuts (auto) 8.9 H, Absolute Lymphs (auto) 1.63, Nucleated RBC % 0, Sodium 135, P otassium 3.0 L, Chloride 99, Carbon Dioxide 27.5, Anion Gap 9, BUN 25 H, C reatinine 0.55 L, Estim Creat Clear Calc 50.32, Est GFR (MDRD) Non-Af 99, B UN/Creatinine Ratio 46.0 H, Glucose 148 H, Calcium 8.7, Phosphorus 2.2 L Micro: Microbiology 03/07/25 17:00 Urine, Clean Catch Urine Culture - Preliminary Culture exhibits no growth. Physical Exam Narrative GENERAL: cooperative HEENT: Atraumatic; normocephalic EYES; Anicteric, Normal Conjunctiva NECK; supple, normal thyroid, RESPIRATORY: Diminished to auscultation CARDIOVASCULAR: Regular S1 S2, GI: soft, normoactive bowel sounds, : No Renal angle tenderness; EXTREMITIES: No edema, no clubbing, MUSCULOSKELETAL: no muscle wasting NEURO: Awake; no lateralizing signs. SKIN: No Rash PSYCH; Flat affect Assessment & Plan Assessment/Plan (1) Weakness: (2) Dehydration: PLAN: Plan Patient is a 69-year-old female who was discharged from the hospital 3 days prior following admission for hematemesis presented to the emergency department with multiple falls following her discharge. Was found to have abnormal urinalysis consistent with UTI 1. Acute cystitis ? Present on admission patient started on ceftriaxone urine culture sent ? 03/09/2025; patient urine culture did not exhibit any growth antibiotics subsequently discontinued 2. Acute on chronic debility with multiple falls ? Patient has been admitted to regular nursing floor requested for PT OT eval and mental health social worker to assist with discharge planning ? 03/09/2025; patient creatinine down to 0.55 3. Acute kidney injury ? Patient baseline creatinine is 0.6, creatinine on admission was 1.06 started on IV fluid with subsequent monitoring of electrolyte 4. Recent admission for hematemesis ? Patient underwent EGD by Dr. 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 Chronic hypoxic respiratory failure Secondary to COPD. Patient was assessed for home oxygen during her previous admission which she qualified she was discharged on 2 L continuous 6. Depression with anxiety ? Patient is on venlafaxine as well as trazodone 7. Dyslipidemia ?Patient is on statin therapy, continued at home dose 8. Tobacco dependence ? Counseled on cessation, offered nicotine patch for tobacco cravings 9. Underweight with BMI of 17.7 ? Complicating care 10. DVT prophylaxis ? Subcu Lovenox 11. Hypophosphatemia ? Corrected per protocol repeat labs ordered for a.m. 12. Hypokalemia ? Corrected per protocol repeat labs ordered for a.m. Charges/Coding Visit Charges Inpatient E&M: 04257 Subs Hosp L2
[2025-03-09] MEDS: Potassium Chloride Oral Tablet 20 MEQ PO ×2 (09:06→16:12)
[2025-03-09] MEDS: Potassium Chloride Oral Tablet 20 MEQ 40 MEQ PO (10:44)
[2025-03-09] MEDS: Na Biphos/Potassium Phosphate PACKET 1 PACKET PO ×2 (10:44→21:48)
[2025-03-09] MEDS: Lactobacillis Acidophilus 1 CAP PO ×2 (10:44→21:48)
[2025-03-10 04:14] VITALS: BP 142/83; PULSE 85; RESP 16; TEMP 35.9; O2SAT 97
[2025-03-10 06:27] LABS: Hematocrit 28.3 % (37-47); Hemoglobin 9.5 g/dL (12.0-15.0); Immature Granulocytes Count 0.020 X10^3/uL (0.0-0.0); Mean Corp Hgb Conc 33.6 g/dL (32-36); Mean Corpuscular Volume 91.6 fL (81-99); Mean Platelet Vol. 10.6 fl (6.2-12.0); NRBC Flagged by Analyzer 0 % (0-5); Platelet Count 189 K/mm3 (150-450); RBC Distribution Width CV 13.3 % (11.6-14.6); RBC Distribution Width SD 44.0 fl (35.1-43.9); Red Blood Count 3.09 M/mm3 (4.2-5.4); White Blood Count 7.4 K/mm3 (4.4-11.0)
[2025-03-10 06:55] LABS: Anion Gap 8 (5-15); BUN 16 mg/dL (4-19); BUN/Creat Ratio 31.3 RATIO (10-20); Calcium,Total 8.8 mg/dL (7.6-11.0); Carbon Dioxide 26.8 mmol/L (21.0-32.0); Chloride 101 mmol/L (98-108); Estimated Creatinine Clearance 50.32 ml/min (50-250); Glucose 113 mg/dL (70-99); Potassium 4.0 mmol/L (3.3-5.1)
[2025-03-10 07:00] VITALS: PULSE 84
[2025-03-10 07:25] VITALS: O2SAT 96
[2025-03-10 08:00] VITALS: BP 109/80; PULSE 87; RESP 15; TEMP 36.6; O2SAT 95
[2025-03-10] MEDS: Lactobacillis Acidophilus 1 CAP PO (08:33)
[2025-03-10] MEDS: Potassium Chloride Oral Tablet 20 MEQ PO ×2 (08:33→16:38)
[2025-03-10] MEDS: Na Biphos/Potassium Phosphate PACKET 1 PACKET PO (08:33)
--- NOTE | 2025-03-10 08:44 | CASEMGMT ---
Social Work SW spoke w/pt in the room in regard to discharge plan. Pt states she feels she can return home, states her cousin will stay w/her as soon as she goes home. SW spoke w/pt about home health, explained that she would need to be home bound. Pt states she plans to return to work at [email or web address]. SW explained that she would not qualify for home health at this time. Pt states understanding. SW/CM will followup once pt has had PT today. WOODROW Moore
--- NOTE | 2025-03-10 09:03 | PCM.PN.HOSP ---
Reason for Visit Reason for Visit: Diagnoses Dehydration (03/07/25) Weakness (03/07/25) Subjective Subjective Feeling good. Objective Data Objective Data Vital Signs: Vital Signs Temp Pulse Resp BP Pulse Ox O2 Del Method O2 Flow Rate 36.6 C 87 15 109/80 95 Room Air 2 03/10/25 08:00 03/10/25 08:00 03/10/25 08:00 03/10/25 08:00 03/10/25 08:00 03/10/25 08:00 03/10/25 07:25 Oxygen Flow Rate (L/min) 2 Oxygen Delivery Method Room Air Weight: 48.716 kg Body Mass Index (BMI) 18.4 Intake & Output: Intake and Output for Last 24 Hours 03/08/25 03/09/25 03/10/25 23:59 23:59 23:59 Intake Total 1220 / 1340 580 / 580 Balance 1220 / 1340 580 / 580 Medical Nutrition Assessment Dietitian: Malnutrition Criteria Met Start: 03/08/25 11:31 Freq: Status: Active Protocol: Document 03/08/25 11:31 DESIREE (Rec: 03/08/25 11:[address] 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 Fat/muscle wasting throughout body; BMI 18.4 Status Active Problem Recommendation Dietitian Continue liberal regular diet - easy to chew as ordered Recommendations/ Will order 8oz Ensure Plus High Protein and cup of ice Changes tid w/ meals for increased nutrition if consumed. Lab / Micro Data 03/10/25 05:40 03/10/25 05:40 Labs: Laboratory Results - last 24 hr 03/10/25 05:40: WBC 7.4, RBC 3.09 L, Hgb 9.5 L, Hct 28.3 L, MCV 91.6, MCH 30.7, MCHC 33.6, RDW Std Deviation 44.0 H, RDW Coeff of Tr 13.3, Plt Count 189, MPV 10.6, Immature Gran % (Auto) 0.300, Neut % (Auto) 58.0, Lymph % (Auto) 28.2, [place] % (Auto) 5.9, Eos % (Auto) 7.2 H, Baso % (Auto) 0.4, Absolute Neuts (auto) 4.3, Absolute Lymphs (auto) 2.09, Nucleated RBC % 0, Sodium 135, Potassium 4.0, Chloride 101, Carbon Dioxide 26.8, Anion Gap 8, BUN 16, Creatinine 0.52 L, Estim Creat Clear Calc 50.32, Est GFR (MDRD) Non-Af 100, BUN/Creatinine Ratio 31.3 H, Glucose 113 H, Calcium 8.8 Micro: Microbiology 03/07/25 17:00 Urine, Clean Catch Urine Culture - Final Culture exhibits no growth. Physical Exam Const alert and no apparent distress HEENT head/scalp atraumatic and moist oral mucous membranes Resp normal respiratory effort, no retractions, no use of accessory muscles and clear to auscultation bilaterally Cardio regular rate, regular rhythm, S1 normal heart sound and S2 normal heart sound GI normal to inspection, nondistended, normoactive bowel sounds, soft to palpation, non-tender and non-distended Skin Skin Narrative: lesion on posterior upper right buttocks w/o surrounding erythema. Assessment & Plan Assessment/Plan (1) GERALDO (acute kidney injury): PLAN: Improved with IVF. Resolved (2) Debility: PLAN: plan to return home. PLAN: Plan VTE prophylaxis: LMWH DC home with outpatient physical therapy.
--- NOTE | 2025-03-10 13:23 | CASEMGMT ---
Addendum entered by Jenn Schmidt 03/10/25 14:27: Social Work SW did give pt blank copies of LW/POA w/SW number should she want to come in as an outpt and complete the documents. SW spoke w/pt again about d/c plan, pt does plan to return home. Pt agreeable to SW calling her cousin Brittany to let her know she did well with PT, and at this point would likely not qualify for SNF. SW asked pt about outpt PT, pt would yue to consider this, agreeable to physician giving her a script and she will decide whether or not she will go to outpt PT. Physician did write script and it will be given to pt at d/c. SW spoke w/cousin Brittany, let her know pt did well with therapy and will likely not qualify for SNF under insurance at this time. Brittany states understanding and is glad pt is moving better. SW did let Brittany know that the physician did write a script for outpt PT for pt. No further needs anticipated, pt home at time of discharge, will have outpt PT script, and cousin Jing will stay w/her once pt is d/c. WOODROW Moore Original Note: Social Work Pt's cousin Brittany Maxwell([phone]) called in, concerned about pt going home. SW explained spoke w/pt earlier and she wants to go home. Brittany is upset, stating pt will end up back in the hospital. SW said that pt had said her cousin is staying w/her, Brittany states it is her sister Jnig who is going to stay w/the pt, but states that she can only stay for two weeks as she is about to have surgery. ROYA explained to Brittany that pt may not qualify for SNF, we are waiting for therapy to see her again. Brittany also thinks that pt was to go home on O2 last time, SW let Brittany know pt did not need home O2 on last hospital stay at discharge. SW explained will follow up w/pt, and will call Brittany back if pt allows it. SW spoke w/pt again, she still wants to go home and not to SNF. SW let her know Brittany called and is concerned about her, states that she said Jing can stay for only two weeks. Pt is aware of this, and states she is upset that people are talking about her behind her back. SW explained her cousin Brittany called as she was concerned about her. Pt states she is concerned about herself. SW asked if it would be okay to call Brittany back after she works w/PT again to let her know how pt does, she wants to think about it. SW also spoke to her about completing LW/POA. Pt may want to complete the documents but needs to think about who she would put down. SW spoke w/PT, pt did well, PT recommending outpt PT. SW will follow up w/pt. WOODROW Moore
[2025-03-10 13:26] VITALS: O2SAT 93
[2025-03-10 14:00] VITALS: BP 96/54; PULSE 97; PULSE 99; RESP 16; TEMP 36.6; O2SAT 94
--- NOTE | 2025-03-10 15:53 | PCM.DC.SUM ---
Providers Date of Admission: 03/07/25 Primary Care Physician: Dr. Gasper Nelson DO Reason For Visit: WEAKNESS, DEHYDRATION, HYPOXIA Diagnosis Discharge Diagnosis (1) GERALDO (acute kidney injury): Status: Acute Code(s): N17.9 - Acute kidney failure, unspecified Plan: Improved with IVF. Resolved (2) Debility: Status: Acute Code(s): R53.81 - Other malaise Plan: plan to return home. Plan VTE prophylaxis: LMWH DC home with outpatient physical therapy. Medications at Discharge Home Medications esomeprazole magnesium 20 mg capsule,delayed release (Nexium) 40 mg PO DAILY 08/08/13 venlafaxine 150 mg capsule,extended release 24 hr 150 mg PO DAILY depression 03/20/24 trazodone 50 mg tablet 150 mg (3 x 50 mg) PO QHS #15 tabs 02/17/25 albuterol sulfate 90 mcg/actuation aerosol inhaler 2 puff inhalation Q4H PRN shortness of breath or wheezing 03/03/25 nystatin 100,000 unit/mL oral suspension 500,000 unit (5 mL) PO 4X/DAY #300 mL 03/05/25 ondansetron 4 mg disintegrating tablet 4 mg PO Q8H PRN PRN Nausea #10 tabs 03/06/25 Hospital Course Operations None Procedures None Medical Records Data Medical Nutrition Assessment Dietitian: Malnutrition Criteria Met Start: 03/08/25 11:31 Freq: Status: Active Protocol: Document 03/08/25 11:31 DESIREE (Rec: 03/08/25 11:31 DESIREE [id number]) Nutrition Malnutrition Evidence of Yes Malnutrition Exists Malnutrition (severe Acute Illness/Injury ): Evidenced By Suboptimal Energy Intake (Severe),Weight Loss (Severe), Physical Changes (Moderate) Clinical Problem Acute Disease or Injury Related Malnutrition Etiology related to inadequate energy intake Signs/Symptoms as evidenced by 6.4% unplanned wt loss and po intake meeting < 75% of 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 Fat/muscle wasting throughout body; BMI 18.4 Status Active Problem Recommendation Dietitian Continue liberal regular diet - easy to chew as ordered Recommendations/ Will order 8oz Ensure Plus High Protein and cup of ice Changes tid w/ meals for increased nutrition if consumed. Weight / BMI Weight Weight: 48.716 kg Body Mass Index (BMI) 18.4 ABG / Lab / Microbiology Data 03/10/25 05:40 03/10/25 05:40 Laboratory: Laboratory Results - last 24 hr 03/10/25 05:40: WBC 7.4, RBC 3.09 L, Hgb 9.5 L, Hct 28.3 L, MCV 91.6, MCH 30.7, MCHC 33.6, RDW Std Deviation 44.0 H, RDW Coeff of Tr 13.3, Plt Count 189, MPV 10.6, Immature Gran % (Auto) 0.300, Neut % (Auto) 58.0, Lymph % (Auto) 28.2, [place] % (Auto) 5.9, Eos % (Auto) 7.2 H, Baso % (Auto) 0.4, Absolute Neuts (auto) 4.3, Absolute Lymphs (auto) 2.09, Nucleated RBC % 0, Sodium 135, Potassium 4.0, Chloride 101, Carbon Dioxide 26.8, Anion Gap 8, BUN 16, Creatinine 0.52 L, Estim Creat Clear Calc 50.32, Est GFR (MDRD) Non-Af 100, BUN/Creatinine Ratio 31.3 H, Glucose 113 H, Calcium 8.8 Microbiology: Microbiology 03/07/25 17:00 Urine, Clean Catch Urine Culture - Final Culture exhibits no growth. D/C Instructions Discharge Diet: No restrictions DC O2, CPAP, BIPAP Needs Home O2 Discharge instructions: No Meaningful Use Info Meaningful Use Meaningful Use Diagnoses (Choose all that apply): None applicable Ischemic Stroke Statin Dosing Therapy Reference: STATIN DOSE THERAPY REFERENCE: * Patients > 75 years receive moderate or high dose statin therapy. * Patients 75 years or YOUNGER should receive HIGH intensity statin dose unless contraindicated. You will be required to document reason for non-treatment if statin daily dose does not meet guidelines. HIGH DOSE STATIN THERAPY DAILY Atorvastatin > than or = to 40 mg Rosuvastatin > than or = to 20 mg Amlodipine + Atorvastatin > than or = to 2.5/40 mg Ezetimibe + Simvastatin 10/80 mg Simvastatin 80mg Discharge Plan Admission Admit Date/Time: 03/07/25 17:03 Primary Reason for Your Visit: GERALDO Attending Provider: Niko Cristobal Primary Care Provider: Gasper Nelson Consulting Providers: Claude Springer; Kelvin Falk Discharge Orders/Prescriptions Prescriptions: Continued venlafaxine 150 mg capsule,extended release 24hr 150 mg PO DAILY esomeprazole magnesium [Nexium] 20 MG capsule 40 mg PO DAILY Patient Comments: acid reflux trazodone 50 mg Tablet 150 mg PO QHS Qty: 15 0RF ondansetron 4 mg tablet,disintegrating 4 mg PO Q8H PRN PRN (Reason: Nausea) Qty: 10 0RF albuterol sulfate 90 mcg/actuation HFA aerosol inhaler 2 puff inhalation Q4H PRN (Reason: shortness of breath or wheezing) nystatin 100,000 unit/mL Suspension 500,000 unit PO 4X/DAY Qty: 300 0RF Other Ambulatory Orders: Physical Therapy Evaluation (Routine) Location: None Selected Ordered By: Dr. Niko Cristobal Referrals / Follow Up: Gasper Nelson DO [Primary Care Provider] - Within 2 Weeks Disposition Disposition (needs filled in before D/C Order can be placed): Home, Self Care Charges/Coding Visit Charges Inpatient E&M: 99488 Disch Hosp
== END 2025-03-10 17:05 | disposition home or self-care (01) | DRG 689 ==
LOC: ED 14:33 → PCU 17:23
PROVIDERS: Internal Medicine; Physician Assistant; Admitting Provider Hospitalist; Emergency Provider Emergency Medicine; PCP Family Medicine; Referring Provider Hospitalist
DX: N30.00 Acute cystitis without hematuria (principal); E43 Unspecified severe protein-calorie malnutrition; J96.11 Chronic respiratory failure with hypoxia; N17.9 Acute kidney failure, unspecified; Z68.1 Body mass index [BMI] 19.9 or less, adult; J43.9 Emphysema, unspecified; E83.39 Other disorders of phosphorus metabolism; E86.0 Dehydration; F41.8 Other specified anxiety disorders; K22.70 Barrett's esophagus without dysplasia; E87.6 Hypokalemia; E78.5 Hyperlipidemia, unspecified; K21.9 Gastro-esophageal reflux disease without esophagitis; R53.81 Other malaise; R53.1 Weakness; Z87.891 Personal history of nicotine dependence; Z79.899 Other long term (current) drug therapy; R29.6 Repeated falls
CPT/HCPCS: 36415; 71045; 71046; 71275; 74177; 80048; 80053; 81001; 83605; 83690; 83735; 83880; 84100; 84484; 85025; 85027; 87086; 92526; 92610; 93005; 94640; 96372; 96374; 96375; 97116; 97161; 97165; 97530; 97535; 97802; 99284; 99285; P9612; Q9967; A4216; J2405